=== PATIENT | female | born 1960 ===

== ENCOUNTER 2018-05-29 07:44 | Inpatient (IN) | payer OTHER ==
[2018-05-29 07:46] VITALS: BMI 25.7
--- NOTE | 2018-05-29 08:37 | ED PDOC ---
HPI: CCC, URI, Sore Throat Time Seen by Provider: 05/29/18 07:55 Chief Complaint (Nursing): Lower Extremity Problem/Injury Chief Complaint (Provider): dyspnea, cough History Per: Patient History/Exam Limitations: no limitations Onset/Duration Of Symptoms: Days (2-3 weeks) Current Symptoms Are (Timing): Still Present Associated Symptoms: Cough Additional Complaint(s): Marianne Reese is a 57 year old female, with no significant past medical h istory, who presents to the emergency department complaining of dyspnea and cough ongoing for x2-3 weeks. Patient also reports last week she had lower extremity swelling. She went to see her PMD who gave her a water pill and potassium which helped with the leg swelling but the cough and dyspnea are persistent. She also noted a rash to her breast for which her doctor gave her antibiotics and several prescriptions for work up including breast ultrasound, echocardiogram, blood work and DEXA scan which she has not completed yet. She is unfamiliar of which antibiotic was prescribed. She denies any other medical complaints. PMD: None provided. Past Medical History Reviewed: Historical Data, Nursing Documentation, Vital Signs Vital Signs: Last Vital Signs Temp 98.4 F 05/29/18 07:46 Pulse 116 H 05/29/18 07:46 Resp 17 05/29/18 07:46 BP 131/71 05/29/18 07:46 Pulse Ox 100 05/29/18 07:46 - Medical History PMH: No Chronic Diseases - Surgical History Surgical History: - Family History Family History: States: Unknown Family Hx - Social History Current smoker - smoking cessation education provided: No Alcohol: None Drugs: Denies - Allergies Allergies/Adverse Reactions: Allergies Allergy/AdvReac Type Severity Reaction Status Date / Time acetaminophen [From Tylenol] AdvReac Intermediate SHORTNESS Verified 05/29/18 09:00 OF BREATH Review of Systems ROS Statement: Except As Marked, All Systems Reviewed And Found Negative Respiratory: Positive for: Cough, Other (dyspnea) Skin: Positive for: Rash Physical Exam - Reviewed Nursing Documentation Reviewed: Yes Vital Signs Reviewed: Yes - Physical Exam Appears: Positive for: Well Head Exam: Positive for: ATRAUMATIC, NORMAL INSPECTION, NORMOCEPHALIC Skin: Positive for: Warm, Dry, Pallor Eye Exam: Positive for: EOMI, PERRL, Other (conjunctiva pale) ENT: Positive for: Normal ENT Inspection Neck: Positive for: Normal, Painless ROM Cardiovascular/Chest: Positive for: Regular Rate, Rhythm, Other (nondermatomal pustular rash to all quadrants of her breast). Negative for: Murmur Respiratory: Positive for: Normal Breath Sounds. Negative for: Respiratory Dist ress Gastrointestinal/Abdominal: Positive for: Normal Exam, Soft. Negative for: Tenderness Back: Positive for: Normal Inspection. Negative for: L CVA Tenderness, R CVA Tenderness, Vertebral Tenderness Extremity: Positive for: Normal ROM (upper and lower extremities), Swelling (lower extremity 1+ nonpitting edema). Negative for: Deformity Neurologic/Psych: Positive for: Alert, Oriented - Laboratory Results Result Diagrams: 05/29/18 08:30 05/29/18 08:30 - ECG O2 Sat by Pulse Oximetry: 100 (RA) Pulse Ox Interpretation: Normal Medical Decision Making Medical Decision Making: Time: 07:55 Initial Impression: work up for dyspnea. R/o anemia, CHF, PNA and malignancy. Initial Plan: --Type and screen --EKG --B-Type Natriuretic Peptide --CMP --CBC w/ differential --PTT --PT --Chest two views (PA/LAT) [RAD] --Urinalysis --Reevaluation EKG: Sinus tachy @ 110 bpm with Q waves septally labs reviewed revealing critically low Hgb at 4.9 BNP elevated also CXR reviewed Consent for PRBC transfusion obtained after risks/benefits/alternatives explained. Patient states she still has monthly menstrual cycles, last saw [employer] NURSE 2 years ago she states, unsure of name. Also states had mammogram about 2 yrs ago. Likely need malignancy workup. Dr Brown paged to make aware and to guide admitting MD choice. Admitted hospitalist Dr Yancey aware 940am 09:25 CXR FINDINGS: LUNGS: No active pulmonary disease. PLEURA: Trace fluid or thickening is seen in the minor fissure. Minimal right pleural effusion in question. None is seen at the left. No pneumothorax bilaterally.. No pneumothorax apparent. CARDIOVASCULAR: Calcific atherosclerotic changes are seen related to the thoracic aorta. Mild cardiomegaly. Borderline pulmonary vascular congestion. OSSEOUS STRUCTURES: No significant abnormalities. VISUALIZED UPPER ABDOMEN: Normal. OTHER FINDINGS: None. IMPRESSION: Mild cardiomegaly. Pulmonary vascular congestion in question. Trace right pleural effusion. No definitive alveolitis bilaterally. ----- Scribe Attestation: Documented by Celestine Adams, acting as a scribe for Jeremias Holbrook MD. Provider Scribe Attestation: All medical record entries made by the Scribe were at my direction and personally dictated by me. I have reviewed the chart and agree that the record accurately reflects my personal performance of the history, physical exam, medical decision making, and the department course for this patient. I have also personally directed, reviewed, and agree with the discharge instructions and disposition. Disposition - Clinical Impression Clinical Impression: Severe anemia, New onset of congestive heart failure - Patient ED Disposition Is Patient to be Admitted: Yes Counseled Patient/Family Regarding: Studies Performed, Diagnosis - Disposition Disposition: Routine/Home Disposition Time: 09:30 Condition: STABLE - Pt Status Changed To: Hospital Disposition Of: Inpatient - Admit Certification Admit to Inpatient:: After my assessment, the patient will require hospitalization for at least two midnights. This is because of the severity of symptoms shown, intensity of services needed, and/or the medical risk in this patient being treated as an outpatient. - POA Present On Arrival: None
[2018-05-29 08:50] LABS: BASO % 0.4 % (0.0-2.0); EOS # 0.1 K/uL (0.0-0.7); EOS % 0.7 % (0.0-4.0); LYMPH % 11.5 % (20.0-40.0); MEAN CELL VOLUME 70.3 fl (81.0-99.0); MEAN CORPUSCULAR HEMOGLOBIN 19.2 pg (27.0-31.0); MEAN CORPUSCULAR HGB CONC 27.4 g/dL (33.0-37.0); MEAN PLATELET VOLUME 8.2 fl (7.2-11.7); MONO # 0.8 K/uL (0.0-0.8); MONO % 9.2 % (0.0-10.0); NEUT # 6.7 K/uL (1.8-7.0); NEUT % 78.2 % (50.0-75.0); NRBC % 0.1 % (0.0-0.0); RBC 2.53 Mil/uL (3.80-5.20); RED CELL DISTRIBUTION WIDTH 23.4 % (11.5-14.5); WHITE BLOOD COUNT 8.5 K/uL (4.8-10.8)
[2018-05-29 09:03] LABS: HEMOGLOBIN 4.9 g/dL (12.0-16.0)
[2018-05-29 09:06] LABS: ALBUMIN 3.5 g/dL (3.5-5.0); ALT/SGPT 19 U/L (9-52); AST/SGOT 18 U/L (14-36); BLOOD UREA NITROGEN 12 mg/dl (7-17); CALCIUM 8.8 mg/dL (8.4-10.2); GFR NON-AFRICAN AMERICAN > 60
[2018-05-29 09:07] LABS: B-TYPE NATRIURETIC PEPTIDE 2860 pg/ml (0-900)
[2018-05-29 09:09] LABS: INR 1.3; PROTHROMBIN TIME 14.6 Seconds (9.8-13.1)
[2018-05-29 09:11] LABS: PARTIAL THROMBOPLASTIN TIME 26.4 Seconds (25.6-37.1)
[2018-05-29 09:25] LABS: SQUAMOUS EPITHIAL 3 /hpf (0-5); URINE BACTERIA RARE (<OCC); URINE BILIRUBIN NEGATIVE (NEGATIVE); URINE BLOOD LARGE (NEGATIVE); URINE CLARITY CLOUDY (Clear); URINE COLOR YELLOW (YELLOW); URINE GLUCOSE (UA) NEG (Normal); URINE LEUKOCYTE ESTERASE LARGE Leu/uL (Negative); URINE PROTEIN 100 mg/dL (NEGATIVE); URINE UROBILINOGEN 0.2-1.0 mg/dL (0.2-1.0)
--- NOTE | 2018-05-29 09:29 | RAD ---
Date of service: 05/29/2018 HISTORY: chest pain/ r/o infiltrate COMPARISON: No prior. TECHNIQUE: Chest PA and lateral FINDINGS: LUNGS: No active pulmonary disease. PLEURA: Trace fluid or thickening is seen in the minor fissure. Minimal right pleural effusion in question. None is seen at the left. No pneumothorax bilaterally.. No pneumothorax apparent. CARDIOVASCULAR: Calcific atherosclerotic changes are seen related to the thoracic aorta. Mild cardiomegaly. Borderline pulmonary vascular congestion. OSSEOUS STRUCTURES: No significant abnormalities. VISUALIZED UPPER ABDOMEN: Normal. OTHER FINDINGS: None. IMPRESSION: Mild cardiomegaly. Pulmonary vascular congestion in question. Trace right pleural effusion. No definitive alveolitis bilaterally.
[2018-05-29 10:44] LABS: IRON < 10 ug/dL (37-170)
[2018-05-29 10:49] LABS: TOTAL IRON BINDING CAPACITY 407 ug/dL (250-450)
[2018-05-29 10:53] LABS: % IRON SATURATION 2.457 % (20-55)
--- NOTE | 2018-05-29 13:10 | CP.PCM.HP ---
<Bella Phillips - Last Filed: 05/29/18 15:41> History of Present Illness - History of Present Illness History of Present Illness: 57 yo F with no known medical hx presented to ED after 2 weeks of dry cough, bilateral leg swelling, and right breast rash. Reports that she went to see her PMD gave her antibiotics and several prescriptions for work up including breast ultrasound, echocardiogram, blood work and DEXA scan which she has not completed yet. She denies any other medical complaints. States that leg swelling occurs more often when she stands for long periods of time; denies needing more than 1 pillow to sleep or difficulties with walking long distances. Breast rash is not painful on it's own but painful if something like clothing is touching it. Pt states she had mammogram and PAP 2 yrs ago and was told all was within normal limits. She states she saw a PROVISIONING SPECIALIST 2 yrs ago who told her to take iron pills but upon asking for the name, states she prefers not to disclose for personal reasons. ROS positive for: weight loss in the past 2 months, early satiety, bilateral leg swelling, skin changes on R breast, heavy menstrual cycle despite patient stating she is "going through menopause" Negative for: dizziness, chest pain, difficulty walking long distances, orthopnea, night time awakenings to urinate or while short of breath, chills, fevers Past Med hx: denies chronic issues Past Surg hx: 37 yrs ago OBhx: pt states she is "going through menopause" but still has her period every month, LMP 05/25/18, currently menstruating, 1 prior Soc hx: denies tobacco, alcohol, drug use Fam hx: denies malignancy, diabetes, htn, [place], stroke Allergies: tylenol Meds: oral iron In ED: Vitals: tachycardic at 116, afebrile, normotensive Labs: Hgb 4.9, ProBNP 2860, iron studies low iron, ferritin and % iron saturation Present on Admission - Present on Admission Any Indicators Present on Admission: No Review of Systems - Review of Systems All systems: reviewed and no additional remarkable complaints except Review of Systems: as per HPI Past Patient History - Past Social History Alcohol: None Drugs: Denies - CARDIAC Hx Heart Murmur: Yes (childhood) - HEMATOLOGICAL/ONCOLOGICAL Hx Anemia: Yes - PSYCHIATRIC Hx Substance Use: No - SURGICAL HISTORY Hx Section: Yes (x1) - ANESTHESIA Hx Anesthesia: Yes Hx Anesthesia Reactions: No Meds Allergies/Adverse Reactions: Allergies Allergy/AdvReac Type Severity Reaction Status Date / Time acetaminophen [From Tylenol] AdvReac Intermediate SHORTNESS Verified 05/29/18 09:00 OF BREATH Physical Exam - Constitutional Appears: Non-toxic, No Acute Distress - Head Exam Head Exam: NORMAL INSPECTION - Eye Exam Eye Exam: EOMI Additional comments: conjunctival pallor - ENT Exam ENT Exam: Mucous Membranes Moist - Neck Exam Neck exam: Positive for: Full Rom - Respiratory Exam Respiratory Exam: Clear to Auscultation Bilateral, NORMAL BREATHING PATTERN. absent: Respiratory Distress - Cardiovascular Exam Cardiovascular Exam: REGULAR RHYTHM, +S1, +S2 Additional comments: R breast more swollen/larger than L breast R on right breast: multiple erythematous pustules of different sizes - GI/Abdominal Exam GI & Abdominal Exam: Normal Bowel Sounds, Soft. absent: Tenderness - Extremities Exam Extremities exam: Positive for: calf tenderness (R>L), pedal edema (1+ pitting to knees) - Back Exam Back exam: NORMAL INSPECTION - Neurological Exam Neurological exam: Alert, Normal Gait, Oriented x3 - Skin Skin Exam: Rash, Vesicles, Warm Additional comments: multiple round pustules of differing sizes on R breast Results - Vital Signs Recent Vital Signs: Last Vital Signs Temp 99.2 F 05/29/18 13:00 Pulse 116 H 05/29/18 13:00 Resp 18 05/29/18 13:00 BP 130/78 05/29/18 13:00 Pulse Ox 100 05/29/18 10:24 - Labs Result Diagrams: 05/29/18 08:30 05/29/18 08:30 Labs: Laboratory Results - last 24 hr 05/29/18 05/29/18 05/29/18 08:30 08:30 08:30 WBC 8.5 RBC 2.53 L Hgb 4.9 L* Hct 17.8 L MCV 70.3 L MCH 19.2 L MCHC 27.4 L RDW 23.4 H Plt Count 373 MPV 8.2 Neut % (Auto) 78.2 H Lymph % (Auto) 11.5 L [place] % (Auto) 9.2 Eos % (Auto) 0.7 Baso % (Auto) 0.4 Neut # (Auto) 6.7 Lymph # (Auto) 1.0 [place] # (Auto) 0.8 Eos # (Auto) 0.1 Baso # (Auto) 0.0 PT 14.6 H INR 1.3 APTT 26.4 Sodium 143 Potassium 4.2 Chloride 109 H Carbon Dioxide 23 Anion Gap 15 BUN 12 Creatinine 0.6 L Est GFR ( Amer) > 60 Est GFR (Non-Af Amer) > 60 Random Glucose 111 H Calcium 8.8 Iron TIBC % Saturation Ferritin Total Bilirubin 0.3 AST 18 ALT 19 Alkaline Phosphatase 95 NT-Pro-B Natriuret Pep 2860 H Total Protein 6.8 Albumin 3.5 Globulin 3.3 Albumin/Globulin Ratio 1.0 Urine Color Urine Clarity Urine pH Ur Specific [place] Urine Protein Urine Glucose (UA) Urine Ketones Urine Blood Urine Nitrate Urine Bilirubin Urine Urobilinogen Ur Leukocyte Esterase Urine RBC (Auto) Urine Microscopic WBC Ur Squamous Epith Cells Urine Bacteria Blood Type Blood Type Confirm Antibody Screen Crossmatch BBK History Checked 05/29/18 05/29/18 05/29/18 08:30 09:10 09:15 WBC RBC Hgb Hct MCV MCH MCHC RDW Plt Count MPV Neut % (Auto) Lymph % (Auto) [place] % (Auto) Eos % (Auto) Baso % (Auto) Neut # (Auto) Lymph # (Auto) [place] # (Auto) Eos # (Auto) Baso # (Auto) PT INR APTT Sodium Potassium Chloride Carbon Dioxide Anion Gap BUN Creatinine Est GFR ( Amer) Est GFR (Non-Af Amer) Random Glucose Calcium Iron TIBC % Saturation Ferritin Total Bilirubin AST ALT Alkaline Phosphatase NT-Pro-B Natriuret Pep Total Protein Albumin Globulin Albumin/Globulin Ratio Urine Color Yellow Urine Clarity Cloudy Urine pH 5.0 Ur Specific [place] 1.017 Urine Protein 100 Urine Glucose (UA) Neg Urine Ketones Negative Urine Blood Large Urine Nitrate Negative Urine Bilirubin Negative Urine Urobilinogen 0.2-1.0 Ur Leukocyte Esterase Large Urine RBC (Auto) 179 H Urine Microscopic WBC 213 H Ur Squamous Epith Cells 3 Urine Bacteria Rare Blood Type A POSITIVE Blood Type Confirm A POSITIVE Antibody Screen Negative Crossmatch See Detail BBK History Checked No verified bt 05/29/18 05/29/18 10:10 10:10 WBC RBC Hgb Hct MCV MCH MCHC RDW Plt Count MPV Neut % (Auto) Lymph % (Auto) [place] % (Auto) Eos % (Auto) Baso % (Auto) Neut # (Auto) Lymph # (Auto) [place] # (Auto) Eos # (Auto) Baso # (Auto) PT INR APTT Sodium Potassium Chloride Carbon Dioxide Anion Gap BUN Creatinine Est GFR ( Amer) Est GFR (Non-Af Amer) Random Glucose Calcium Iron < 10 L TIBC 407 % Saturation 2.457 L Ferritin 5.5 L Total Bilirubin AST ALT Alkaline Phosphatase NT-Pro-B Natriuret Pep Total Protein Albumin Globulin Albumin/Globulin Ratio Urine Color Urine Clarity Urine pH Ur Specific [place] Urine Protein Urine Glucose (UA) Urine Ketones Urine Blood Urine Nitrate Urine Bilirubin Urine Urobilinogen Ur Leukocyte Esterase Urine RBC (Auto) Urine Microscopic WBC Ur Squamous Epith Cells Urine Bacteria Blood Type Blood Type Confirm Antibody Screen Crossmatch BBK History Checked Assessment & Plan - Assessment and Plan (Free Text) Assessment: 57 yo F with hx anemia?, presented to ED with leg swelling, cough, and breast rash x 2 weeks. Found to be severely anemic at 4.9, although asymptomatic; still menstruating. Findings suspicious for new onset CHF, as well as possible malignant process. 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 Plan: Anemia -Hgb 4.9 on admission; 3U PRBC ordered in ED -Follow up CBC in am -PROVISIONING SPECIALIST consult as pt is 57 yo F who is still menstruating w/ heavy flow, suspicion for malignancy -Transvaginal u/s ordered Breast Rash -Right breast u/s ordered -PROVISIONING SPECIALIST consult Lower Extremity Edema -Elevated BNP 2860; suspected new onset CHF -CXR w/ pulmonary congestion, mild cardiomegaly -Bilateral lower ext doppler -Echocardiogram ordered -Lipid panel, TSH, HbA1c Diet -Regular diet DVT prophylaxis -SCDs after doppler r/o DVT Pt seen/discussed w/ Dr. Yancey. <Tee Yancey - Last Filed: 05/29/18 16:43> Results - Vital Signs Recent Vital Signs: Last Vital Signs Temp 98.6 F 05/29/18 15:43 Pulse 115 H 05/29/18 15:43 Resp 19 05/29/18 15:43 BP 133/69 11/05/18 15:43 Pulse Ox 96 05/29/18 15:21 - Labs Result Diagrams: 05/29/18 08:30 05/29/18 08:30 Labs: Laboratory Results - last 24 hr 05/29/18 05/29/18 05/29/18 08:30 08:30 08:30 WBC 8.5 RBC 2.53 L Hgb 4.9 L* Hct 17.8 L MCV 70.3 L MCH 19.2 L MCHC 27.4 L RDW 23.4 H Plt Count 373 MPV 8.2 Neut % (Auto) 78.2 H Lymph % (Auto) 11.5 L [place] % (Auto) 9.2 Eos % (Auto) 0.7 Baso % (Auto) 0.4 Neut # (Auto) 6.7 Lymph # (Auto) 1.0 [place] # (Auto) 0.8 Eos # (Auto) 0.1 Baso # (Auto) 0.0 PT 14.6 H INR 1.3 APTT 26.4 Sodium 143 Potassium 4.2 Chloride 109 H Carbon Dioxide 23 Anion Gap 15 BUN 12 Creatinine 0.6 L Est GFR ( Amer) > 60 Est GFR (Non-Af Amer) > 60 Random Glucose 111 H Calcium 8.8 Iron TIBC % Saturation Ferritin Total Bilirubin 0.3 AST 18 ALT 19 Alkaline Phosphatase 95 NT-Pro-B Natriuret Pep 2860 H Total Protein 6.8 Albumin 3.5 Globulin 3.3 Albumin/Globulin Ratio 1.0 Urine Color Urine Clarity Urine pH Ur Specific [place] Urine Protein Urine Glucose (UA) Urine Ketones Urine Blood Urine Nitrate Urine Bilirubin Urine Urobilinogen Ur Leukocyte Esterase Urine RBC (Auto) Urine Microscopic WBC Ur Squamous Epith Cells Urine Bacteria Blood Type Blood Type Confirm Antibody Screen Crossmatch BBK History Checked 05/29/18 05/29/18 05/29/18 08:30 09:10 09:15 WBC RBC Hgb Hct MCV MCH MCHC RDW Plt Count MPV Neut % (Auto) Lymph % (Auto) [place] % (Auto) Eos % (Auto) Baso % (Auto) Neut # (Auto) Lymph # (Auto) [place] # (Auto) Eos # (Auto) Baso # (Auto) PT INR APTT Sodium Potassium Chloride Carbon Dioxide Anion Gap BUN Creatinine Est GFR ( Amer) Est GFR (Non-Af Amer) Random Glucose Calcium Iron TIBC % Saturation Ferritin Total Bilirubin AST ALT Alkaline Phosphatase NT-Pro-B Natriuret Pep Total Protein Albumin Globulin Albumin/Globulin Ratio Urine Color Yellow Urine Clarity Cloudy Urine pH 5.0 Ur Specific [place] 1.017 Urine Protein 100 Urine Glucose (UA) Neg Urine Ketones Negative Urine Blood Large Urine Nitrate Negative Urine Bilirubin Negative Urine Urobilinogen 0.2-1.0 Ur Leukocyte Esterase Large Urine RBC (Auto) 179 H Urine Microscopic WBC 213 H Ur Squamous Epith Cells 3 Urine Bacteria Rare Blood Type A POSITIVE Blood Type Confirm A POSITIVE Antibody Screen Negative Crossmatch See Detail BBK History Checked No verified bt 05/29/18 05/29/18 10:10 10:10 WBC RBC Hgb Hct MCV MCH MCHC RDW Plt Count MPV Neut % (Auto) Lymph % (Auto) [place] % (Auto) Eos % (Auto) Baso % (Auto) Neut # (Auto) Lymph # (Auto) [place] # (Auto) Eos # (Auto) Baso # (Auto) PT INR APTT Sodium Potassium Chloride Carbon Dioxide Anion Gap BUN Creatinine Est GFR ( Amer) Est GFR (Non-Af Amer) Random Glucose Calcium Iron < 10 L TIBC 407 % Saturation 2.457 L Ferritin 5.5 L Total Bilirubin AST ALT Alkaline Phosphatase NT-Pro-B Natriuret Pep Total Protein Albumin Globulin Albumin/Globulin Ratio Urine Color Urine Clarity Urine pH Ur Specific [place] Urine Protein Urine Glucose (UA) Urine Ketones Urine Blood Urine Nitrate Urine Bilirubin Urine Urobilinogen Ur Leukocyte Esterase Urine RBC (Auto) Urine Microscopic WBC Ur Squamous Epith Cells Urine Bacteria Blood Type Blood Type Confirm Antibody Screen Crossmatch BBK History Checked Attending/Attestation - Attestation I have personally seen and examined this patient.: Yes I have fully participated in the care of the patient.: Yes I have reviewed all pertinent clinical information: Yes Notes (Text): Patient seen and examined with the resident, agree with above anemia, significant unintentional weight loss in the past 2 months concern for malignancy - will get imaging and PROVISIONING SPECIALIST consultation for their expert opinion monitor H&H after transfusion
--- NOTE | 2018-05-29 18:17 | CARD ---
APPROVED REPORT Date of service: 05/29/2018 EKG Measurement Heart [id number] <Conclusion> Sinus tachycardia Septal infarct, age undetermined Abnormal ECG
[2018-05-30 07:17] LABS: BASO % 0.3 % (0.0-2.0); EOS # 0.1 K/uL (0.0-0.7); EOS % 0.9 % (0.0-4.0); HEMOGLOBIN 8.5 g/dL (12.0-16.0); LYMPH # 1.1 K/uL (1.0-4.3); LYMPH % 9.8 % (20.0-40.0); MEAN CELL VOLUME 74.7 fl (81.0-99.0); MEAN CORPUSCULAR HGB CONC 30.8 g/dL (33.0-37.0); MEAN PLATELET VOLUME 8.3 fl (7.2-11.7); MONO % 9.3 % (0.0-10.0); NEUT # 8.7 K/uL (1.8-7.0); NEUT % 79.7 % (50.0-75.0); NRBC % 0.1 % (0.0-0.0); PLATELET COUNT 384 K/uL (130-400); RBC 3.69 Mil/uL (3.80-5.20); RED CELL DISTRIBUTION WIDTH 23.3 % (11.5-14.5)
[2018-05-30 07:28] LABS: ALBUMIN 3.6 g/dL (3.5-5.0); ALT/SGPT 12 U/L (9-52); AST/SGOT 18 U/L (14-36); BLOOD UREA NITROGEN 12 mg/dl (7-17); CALCIUM 8.7 mg/dL (8.4-10.2); GFR NON-AFRICAN AMERICAN > 60; HDL CHOLESTEROL 35 MG/DL (30-70)
[2018-05-30 07:37] LABS: LDL CHOLESTEROL 64 mg/dL (0-129)
--- NOTE | 2018-05-30 08:25 | CP.PCM.CON ---
<Jennifer Agarwal - Last Filed: 05/30/18 09:15> History of Present Illness - History of Present Illness History of Present Illness: Pt is a 57 yo F admitted for severe anemia hg 4.9 s/p transfused 3 units of PRBCs, R breast rash, and new onset CHF. Pt states that she started having SOB and swelling with cough two weeks ago so she came to the ED. She's been menstruating for 2 weeks and has her period now as well. She has a right breast rash that started 3 weeks ago, with swelling, erythema, nodules, she feels pain when it touches clothes, her primary prescribed her antibiotics but it didn't resolve. No hx of Zoster vaccine. OB Hx: 1981- C section Borderer hx: 2009- Fibroids- no surgical intervention, Last mammogram-2015- reports normal, 2013 reports normal. LMP-has period now began 2 weeks ago, Used to last 4 days now 1-2weeks, light bleeding, Age of Menarche 8. 2015-Pap smear normal, denies HPV. PMD:Dr. Juventino hercules PMHX: Anemia- Hx of transfusion 20 yrs ago, heart murmur as child Meds- Fe tablets (not taking for 1 month), Antibiotic 2x a day for rash Allergies: Tylenol-palpitations Family hx: None, No hx of breast cancer Surg Hx: None Social Hx: 2nd hand smoke exposure, denies EtOH, or drugs. 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 Alcohol: None Drugs: Denies - CARDIAC Hx Cardiac Disorders: Yes Hx Heart Murmur: Yes (childhood) - PULMONARY Hx Respiratory Disorders: No - NEUROLOGICAL Hx Neurological Disorder: No - HEENT Hx HEENT Problems: No - RENAL Hx Chronic Kidney Disease: No - ENDOCRINE/METABOLIC Hx Endocrine Disorders: No - HEMATOLOGICAL/ONCOLOGICAL Hx Blood Disorders: Yes Hx Anemia: Yes - INTEGUMENTARY Hx Dermatological Problems: No - MUSCULOSKELETAL/RHEUMATOLOGICAL Hx Musculoskeletal Disorders: No Hx Arthritis: No Hx Falls: No - GASTROINTESTINAL Hx Gastrointestinal Disorders: No - GENITOURINARY/GYNECOLOGICAL Hx Genitourinary Disorders: No - PSYCHIATRIC Hx Psychophysiologic Disorder: No Hx Substance Use: Yes - SURGICAL HISTORY Hx Surgeries: Yes Hx Section: Yes (x1) - ANESTHESIA Hx Anesthesia: Yes Hx Anesthesia Reactions: No Meds Allergies/Adverse Reactions: Allergies Allergy/AdvReac Type Severity Reaction Status Date / Time acetaminophen [From Tylenol] AdvReac Intermediate SHORTNESS Verified 05/29/18 09:00 OF BREATH Physical Exam - Constitutional Appears: Toxic, No Acute Distress - Head Exam Head Exam: ATRAUMATIC, NORMAL INSPECTION, NORMOCEPHALIC - Eye Exam Eye Exam: Normal appearance - ENT Exam ENT Exam: Mucous Membranes Moist - Respiratory Exam Respiratory Exam: Rales (Mid to lower lung tolbert) - Cardiovascular Exam Cardiovascular Exam: RRR, +S1, +S2 Additional comments: R breast has multiple erythematous nodules and pustules of varying sizes, swollen R breast, no lymphadenopathy noted - GI/Abdominal Exam GI & Abdominal Exam: Normal Bowel Sounds, Soft - Extremities Exam Extremities exam: Positive for: normal inspection - Neurological Exam Neurological exam: Alert, Oriented x3 - Skin Skin Exam: Erythema, Rash Results - Vital Signs Recent Vital Signs: Last Vital Signs Temp 98.3 F 05/30/18 05:20 Pulse 96 H 05/30/18 05:20 Resp 16 05/30/18 05:20 BP 126/68 05/30/18 05:20 Pulse Ox 96 05/30/18 05:04 - Labs Result Diagrams: 05/30/18 06:00 05/30/18 06:00 Labs: Laboratory Results - last 24 hr 05/29/18 05/29/18 05/29/18 08:30 08:30 08:30 WBC 8.5 RBC 2.53 L Hgb 4.9 L* Hct 17.8 L MCV 70.3 L MCH 19.2 L MCHC 27.4 L RDW 23.4 H Plt Count 373 MPV 8.2 Neut % (Auto) 78.2 H Lymph % (Auto) 11.5 L [place] % (Auto) 9.2 Eos % (Auto) 0.7 Baso % (Auto) 0.4 Neut # (Auto) 6.7 Lymph # (Auto) 1.0 [place] # (Auto) 0.8 Eos # (Auto) 0.1 Baso # (Auto) 0.0 Retic Count PT 14.6 H INR 1.3 APTT 26.4 Sodium 143 Potassium 4.2 Chloride 109 H Carbon Dioxide 23 Anion Gap 15 BUN 12 Creatinine 0.6 L Est GFR ( Amer) > 60 Est GFR (Non-Af Amer) > 60 Random Glucose 111 H Calcium 8.8 Iron TIBC % Saturation Ferritin Total Bilirubin 0.3 AST 18 ALT 19 Alkaline Phosphatase 95 NT-Pro-B Natriuret Pep 2860 H Total Protein 6.8 Albumin 3.5 Globulin 3.3 Albumin/Globulin Ratio 1.0 Triglycerides Cholesterol LDL Cholesterol Direct HDL Cholesterol Free T4 TSH 3rd Generation Urine Color Urine Clarity Urine pH Ur Specific [place] Urine Protein Urine Glucose (UA) Urine Ketones Urine Blood Urine Nitrate Urine Bilirubin Urine Urobilinogen Ur Leukocyte Esterase Urine RBC (Auto) Urine Microscopic WBC Ur Squamous Epith Cells Urine Bacteria Blood Type Blood Type Confirm Antibody Screen Crossmatch BBK History Checked 05/29/18 05/29/18 05/29/18 08:30 09:10 09:15 WBC RBC Hgb Hct MCV MCH MCHC RDW Plt Count MPV Neut % (Auto) Lymph % (Auto) [place] % (Auto) Eos % (Auto) Baso % (Auto) Neut # (Auto) Lymph # (Auto) [place] # (Auto) Eos # (Auto) Baso # (Auto) Retic Count PT INR APTT Sodium Potassium Chloride Carbon Dioxide Anion Gap BUN Creatinine Est GFR ( Amer) Est GFR (Non-Af Amer) Random Glucose Calcium Iron TIBC % Saturation Ferritin Total Bilirubin AST ALT Alkaline Phosphatase NT-Pro-B Natriuret Pep Total Protein Albumin Globulin Albumin/Globulin Ratio Triglycerides Cholesterol LDL Cholesterol Direct HDL Cholesterol Free T4 TSH 3rd Generation Urine Color Yellow Urine Clarity Cloudy Urine pH 5.0 Ur Specific [place] 1.017 Urine Protein 100 Urine Glucose (UA) Neg Urine Ketones Negative Urine Blood Large Urine Nitrate Negative Urine Bilirubin Negative Urine Urobilinogen 0.2-1.0 Ur Leukocyte Esterase Large Urine RBC (Auto) 179 H Urine Microscopic WBC 213 H Ur Squamous Epith Cells 3 Urine Bacteria Rare Blood Type A POSITIVE Blood Type Confirm A POSITIVE Antibody Screen Negative Crossmatch See Detail BBK History Checked No verified bt 05/29/18 05/29/18 05/30/18 10:10 10:10 06:00 WBC 11.0 H RBC 3.69 L Hgb 8.5 L D Hct 27.6 L MCV 74.7 L D MCH 23.0 L MCHC 30.8 L RDW 23.3 H Plt Count 384 MPV 8.3 Neut % (Auto) 79.7 H Lymph % (Auto) 9.8 L [place] % (Auto) 9.3 Eos % (Auto) 0.9 Baso % (Auto) 0.3 Neut # (Auto) 8.7 H Lymph # (Auto) 1.1 [place] # (Auto) 1.0 H Eos # (Auto) 0.1 Baso # (Auto) 0.0 Retic Count PT INR APTT Sodium Potassium Chloride Carbon Dioxide Anion Gap BUN Creatinine Est GFR ( Amer) Est GFR (Non-Af Amer) Random Glucose Calcium Iron < 10 L TIBC 407 % Saturation 2.457 L Ferritin 5.5 L Total Bilirubin AST ALT Alkaline Phosphatase NT-Pro-B Natriuret Pep Total Protein Albumin Globulin Albumin/Globulin Ratio Triglycerides Cholesterol LDL Cholesterol Direct HDL Cholesterol Free T4 TSH 3rd Generation Urine Color Urine Clarity Urine pH Ur Specific [place] Urine Protein Urine Glucose (UA) Urine Ketones Urine Blood Urine Nitrate Urine Bilirubin Urine Urobilinogen Ur Leukocyte Esterase Urine RBC (Auto) Urine Microscopic WBC Ur Squamous Epith Cells Urine Bacteria Blood Type Blood Type Confirm Antibody Screen Crossmatch BBK History Checked 05/30/18 05/30/18 05/30/18 06:00 06:00 06:00 WBC RBC Hgb Hct MCV MCH MCHC RDW Plt Count MPV Neut % (Auto) Lymph % (Auto) [place] % (Auto) Eos % (Auto) Baso % (Auto) Neut # (Auto) Lymph # (Auto) [place] # (Auto) Eos # (Auto) Baso # (Auto) Retic Count 2.2 H PT INR APTT Sodium 140 Potassium 4.0 Chloride 109 H Carbon Dioxide 23 Anion Gap 12 BUN 12 Creatinine 0.5 L Est GFR ( Amer) > 60 Est GFR (Non-Af Amer) > 60 Random Glucose 98 Calcium 8.7 Iron TIBC % Saturation Ferritin Total Bilirubin 1.9 H AST 18 ALT 12 Alkaline Phosphatase 101 NT-Pro-B Natriuret Pep Total Protein 7.2 Albumin 3.6 Globulin 3.6 Albumin/Globulin Ratio 1.0 Triglycerides 111 Cholesterol 105 LDL Cholesterol Direct 64 HDL Cholesterol 35 Free T4 1.16 TSH 3rd Generation 2.59 Urine Color Urine Clarity Urine pH Ur Specific [place] Urine Protein Urine Glucose (UA) Urine Ketones Urine Blood Urine Nitrate Urine Bilirubin Urine Urobilinogen Ur Leukocyte Esterase Urine RBC (Auto) Urine Microscopic WBC Ur Squamous Epith Cells Urine Bacteria Blood Type Blood Type Confirm Antibody Screen Crossmatch BBK History Checked Assessment & Plan - Assessment and Plan (Free Text) Assessment: Pt is a 57 yo F admitted for severe anemia hg 4.9 s/p transfused 3 units of PRBCs, R breast rash 3wks, and new onset CHF.She's been menstruating for 2 wks. Anemic hg 4.9 -Transfused 3U PRBC- completed, HG now 8.5 -F/u repeat CBC in am -F/u transvagianl U/S -Abnormal uterine bleeding- Recommend outpt endometrial biopsy testing with [facility]- Dr. Gilbert Breast Rash -r/o infectious vs malignancy -Infectious disease consult placed -F/u Breast U/S, CA 125 in AM Lower Extremity Edema -BNP 2860; suspected new onset CHF -CXR w/ pulmonary congestion, mild cardiomegaly -F/u LE doppler, echo, lipid panel, TSH, HbA1c DVT ppx: SCD's <Mariaa Sainz - Last Filed: 05/31/18 13:24> Meds - Medications Medications: Current Medications Vancomycin HCl 1 gm/ Sodium (Chloride) 250 mls @ 166.667 mls/hr IVPB Q12 GLADIS; Protocol Last Admin: 05/31/18 09:06 Dose: 166.667 mls/hr Results - Vital Signs Recent Vital Signs: Last Vital Signs Temp 98.4 F 05/31/18 05:17 Pulse 90 05/31/18 05:17 Resp 18 05/31/18 05:17 BP 107/64 05/31/18 05:17 Pulse Ox 95 05/31/18 05:17 - Labs Result Diagrams: 05/31/18 04:40 05/30/18 06:00 Labs: Laboratory Results - last 24 hr 05/30/18 05/30/18 05/31/18 06:00 06:00 04:40 WBC 10.0 RBC 3.61 L Hgb 8.5 L Hct 27.5 L MCV 76.3 L MCH 23.6 L MCHC 30.9 L RDW 24.3 H Plt Count 317 MPV 8.6 Neut % (Auto) 76.9 H Lymph % (Auto) 13.1 L [place] % (Auto) 8.2 Eos % (Auto) 1.2 Baso % (Auto) 0.6 Neut # (Auto) 7.7 H Lymph # (Auto) 1.3 [place] # (Auto) 0.8 Eos # (Auto) 0.1 Baso # (Auto) 0.1 Hemoglobin A1c 5.1 CA 125 Antigen 378 H Assessment & Plan - Assessment and Plan (Free Text) Assessment: OB Hospitalist Addendum: 57 yo w/ abnormal uterine bleeding for the last 2 weeks and right breast swelling and rash, suspected new onset of CHF, s/p 3 units PRBCs. Rec right breast u/s. Recommended ID consult for right breast rash and swelling. Pt may also need surgeon for possible breast biopsy. Pelvic u/s reveals a large fundal fibroid and a 11.1 x 11.6 x 8.7 cm complex mass in the left adnexa, concerning for ovarian neoplasia. Recommend possible transfer for evaluation and management by a gynecologic oncologist. (ES)
[2018-05-30 08:48] LABS: ANISOCYTOSIS MODERATE; HYPOCHROMIC MODERATE; LYMPHOCYTE 8 % (20-50); MICROCYTOSIS SLIGHT; MONOCYTE 4 % (0-10); NEUTROPHIL 88 % (42-75); PLATELET ESTIMATE NORMAL (NORMAL); TOTAL CELLS COUNTED 100
[2018-05-30 08:50] LABS: OVALOCYTES SLIGHT; SCHISTOCYTES SLIGHT
--- NOTE | 2018-05-30 09:09 | CP.PCM.PN ---
<Bella Phillips - Last Filed: 05/30/18 11:18> Subjective - Date & Time of Evaluation Date of Evaluation: 05/30/18 Time of Evaluation: 08:40 - Subjective Subjective: Pt seen and evaluated at bedside this morning; she was sitting up eating breakfast. No acute events overnight. Was transfused 3U PRBC yesterday; Hgb up to 8.5 from 4.9. Continues to deny dizziness, shortness of breath, chest pain. Objective - Vital Signs/Intake and Output Vital Signs (last 24 hours): Temp Pulse Resp BP Pulse Ox 98.0 F 90 20 123/67 99 05/30/18 08:31 05/30/18 08:31 05/30/18 08:31 05/30/18 08:31 05/30/18 08:31 Intake and Output: 05/30/18 05/30/18 06:59 18:59 Intake Total 375 Balance 375 - Labs Labs: 05/30/18 06:00 05/30/18 06:00 PT 14.6 Seconds (9.8-13.1) H 05/29/18 08:30 INR 1.3 05/29/18 08:30 APTT 26.4 Seconds (25.6-37.1) 05/29/18 08:30 - Constitutional Appears: No Acute Distress - Head Exam Head Exam: ATRAUMATIC, NORMOCEPHALIC - ENT Exam ENT Exam: Mucous Membranes Moist - Respiratory Exam Respiratory Exam: Clear to Ausculation Bilateral, NORMAL BREATHING PATTERN. absent: Respiratory Distress - Cardiovascular Exam Cardiovascular Exam: REGULAR RHYTHM, +S1, +S2 - GI/Abdominal Exam GI & Abdominal Exam: Soft. absent: Tenderness - Extremities Exam Extremities Exam: absent: Calf Tenderness Additional comments: trace pitting edema b/l - Back Exam Back Exam: NORMAL INSPECTION - Neurological Exam Neurological Exam: Alert, Oriented x3 - Psychiatric Exam Psychiatric exam: Normal Affect - Skin Skin Exam: Dry Additional comments: breast rash- multiple separate pustules on R breast Assessment and Plan - Assessment and Plan (Free Text) Assessment: 57 yo F with hx anemia?, admitted due to critically low hemoglobin at 4.9, s/p 3U PRBC with appopriate improvement to 8.5 Pt initially presented to ED with leg swelling, cough, and breast rash x 2 weeks; initial findings suspicious for new onset CHF and/or malignancy. Pending completion of imaging to assess for CHF, transvaginal u/s, breast u/s (along with ENTERTAINMENT PRODUCTION PROFESSIONAL consult). Plan: Anemia -Hgb 4.9 on admission; 3U PRBC ordered in ED -Repeat CBC this am, Hgb 8.5 -ENTERTAINMENT PRODUCTION PROFESSIONAL consult as pt is 57 yo F who is still menstruating w/ heavy flow, suspicion for malignancy -Transvaginal u/s ordered -CA 125 pending Breast Rash -Right breast u/s ordered -ENTERTAINMENT PRODUCTION PROFESSIONAL consult - recs outpt endometrial biopsy and ID -ID consult -Surg consult Lower Extremity Edema -Elevated BNP 2860; suspected new onset CHF -CXR w/ pulmonary congestion, mild cardiomegaly -Bilateral lower ext doppler -Echocardiogram this am -Lipid panel, TSH wnl; HbA1c pending Diet -Regular diet DVT prophylaxis -SCDs after doppler r/o DVT <Briana Ruiz - Last Filed: 05/30/18 16:07> Objective - Vital Signs/Intake and Output Vital Signs (last 24 hours): Temp Pulse Resp BP Pulse Ox 99 F 105 H 20 133/75 99 05/30/18 16:04 05/30/18 16:04 05/30/18 16:04 05/30/18 16:04 05/30/18 16:04 Intake and Output: 05/30/18 05/30/18 06:59 18:59 Intake Total 375 Balance 375 - Labs Labs: 05/30/18 06:00 05/30/18 06:00 PT 14.6 Seconds (9.8-13.1) H 05/29/18 08:30 INR 1.3 05/29/18 08:30 APTT 26.4 Seconds (25.6-37.1) 05/29/18 08:30 Attending/Attestation - Attestation I have personally seen and examined this patient.: Yes I have fully participated in the care of the patient.: Yes I have reviewed all pertinent clinical information, including history, physical exam and plan: Yes Notes (Text): 05/30/18 16:07 Seen examined and discussed with resident. Agree with findings and plan as above.
--- NOTE | 2018-05-30 10:41 | CP.PCM.CON ---
History of Present Illness - History of Present Illness History of Present Illness: Infectious Disease Consultation Note- asked to see this patietn at the request of Handbag Frames Inspector and family practice for right breast lesions r/o infectious etiology. HPI- Patient is a 57 year old female with pmh of uterine fibroids who was admitted with c/o b/l le swelling and right breast swelling and rash. as per pt. she still gets her menses every month but on admission was found to be severely anemic and is s/p PRBC transfusion. Pt. denies any dizziness or weakness. She explains 3 weeks ago she noticed a small pimple like lesion on her right breast and she did not think much of it and she did scratch it and later develop ed multiple round pimple like lesions on her right breast along with swelling of her right breast. She states she did see her PMD for this and her pmd prescribed her doxycycline which she took for 2 weeks but has not helped her symptoms. She also states around the same time she developed swelling in both her feet and some sob and cough but states since admission her LE swelling has resolved and her breathing is better. Her cough is dry and she denies any phlegm. She also denies any fever or chills and denies any itching in the right breast rash region and denies tenderness. She denies ay liquid discharge from the breast lesions as well. 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 LMP-has period now began 2 weeks ago, Used to last 4 days now 1-2weeks, light bleeding, Age of Menarche 8. 2015-Pap smear normal, denies HPV. PMD:Dr. Juventino hercules PMHX: Anemia- Hx of transfusion 20 yrs ago, heart murmur as child Meds- Fe tablets (not taking for 1 month), Antibiotic 2x a day for rash Allergies: Tylenol-palpitations Family hx: None, No hx of breast cancer Surg Hx: None Social Hx: 2nd hand smoke exposure, denies EtOH, or drugs. Review of Systems - Review of Systems Review of Systems: ROS- denies any fever or chills, denies any BROWN, denies any dizziness, denies any nausea or vomiting, denies any abd. pain, denies any dysurea, + menses, + dry cough and had some sob and le swelling which are both betetr now. right breast pimple like rash for about 3 weeks , no itching, no liquid discharge. no h/o shingles. 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 Alcohol: None Drugs: Denies - CARDIAC Hx Heart Murmur: Yes (childhood) - PULMONARY Hx Respiratory Disorders: No - NEUROLOGICAL Hx Neurological Disorder: No - HEENT Hx HEENT Problems: No - RENAL Hx Chronic Kidney Disease: No - ENDOCRINE/METABOLIC Hx Endocrine Disorders: No - HEMATOLOGICAL/ONCOLOGICAL Hx Blood Disorders: Yes Hx Anemia: Yes - INTEGUMENTARY Hx Dermatological Problems: No - MUSCULOSKELETAL/RHEUMATOLOGICAL Hx Musculoskeletal Disorders: No Hx Arthritis: No Hx Falls: No - GASTROINTESTINAL Hx Gastrointestinal Disorders: No - GENITOURINARY/GYNECOLOGICAL Hx Genitourinary Disorders: No - PSYCHIATRIC Hx Psychophysiologic Disorder: No Hx Substance Use: Yes - SURGICAL HISTORY Hx Surgeries: Yes Hx Section: Yes (x1) - ANESTHESIA Hx Anesthesia: Yes Hx Anesthesia Reactions: No Meds Allergies/Adverse Reactions: Allergies Allergy/AdvReac Type Severity Reaction Status Date / Time acetaminophen [From Tylenol] AdvReac Intermediate SHORTNESS Verified 05/29/18 09:00 OF BREATH Physical Exam - Constitutional Appears: Non-toxic, No Acute Distress - Head Exam Head Exam: ATRAUMATIC - Eye Exam Eye Exam: EOMI, PERRL - ENT Exam ENT Exam: Normal Oropharynx - Neck Exam Neck exam: Positive for: Full Rom - Respiratory Exam Respiratory Exam: NORMAL BREATHING PATTERN Additional comments: no wheezing mild crackles at left base no wheezing - Cardiovascular Exam Cardiovascular Exam: RRR, +S1, +S2 - GI/Abdominal Exam GI & Abdominal Exam: Normal Bowel Sounds, Soft Additional comments: NT, ND - Extremities Exam Extremities exam: Positive for: normal inspection - Neurological Exam Neurological exam: Alert, Oriented x3 - Skin Additional comments: right breast larger than the left with multiple round papular lesions without any discharge, not pustular, no vesicles some of the lesions look like they have bled in past , there is no fluctuation but underneath the skin feels somewhat hardened skin the lesions are all surrounding the areolar region in circular pattern, no lesions on the axilla or back or anywhere else no lumps on exam no axillary lymphadenopathy Results - Vital Signs Recent Vital Signs: Last Vital Signs Temp 98.0 F 05/30/18 08:31 Pulse 90 05/30/18 08:31 Resp 20 05/30/18 08:31 BP 123/67 05/30/18 08:31 Pulse Ox 99 05/30/18 08:31 - Labs Result Diagrams: 05/30/18 06:00 05/30/18 06:00 Labs: Laboratory Results - last 24 hr 05/29/18 05/29/18 05/29/18 08:30 10:10 10:10 WBC RBC Hgb Hct MCV MCH MCHC RDW Plt Count MPV Neut % (Auto) Lymph % (Auto) [place] % (Auto) Eos % (Auto) Baso % (Auto) Neut # (Auto) Lymph # (Auto) [place] # (Auto) Eos # (Auto) Baso # (Auto) Neutrophils % (Manual) Lymphocytes % (Manual) Monocytes % (Manual) Platelet Estimate Hypochromasia (manual) Anisocytosis (manual) Microcytosis (manual) Ovalocytes Schistocytes Retic Count Sodium Potassium Chloride Carbon Dioxide Anion Gap BUN Creatinine Est GFR ( Amer) Est GFR (Non-Af Amer) Random Glucose Calcium Iron < 10 L TIBC 407 % Saturation 2.457 L Ferritin 5.5 L Total Bilirubin AST ALT Alkaline Phosphatase Total Protein Albumin Globulin Albumin/Globulin Ratio Triglycerides Cholesterol LDL Cholesterol Direct HDL Cholesterol Free T4 TSH 3rd Generation Blood Type A POSITIVE Antibody Screen Negative Crossmatch See Detail BBK History Checked No verified bt 05/30/18 05/30/18 05/30/18 06:00 06:00 06:00 WBC 11.0 H RBC 3.69 L Hgb 8.5 L D Hct 27.6 L MCV 74.7 L D MCH 23.0 L MCHC 30.8 L RDW 23.3 H Plt Count 384 MPV 8.3 Neut % (Auto) 79.7 H Lymph % (Auto) 9.8 L [place] % (Auto) 9.3 Eos % (Auto) 0.9 Baso % (Auto) 0.3 Neut # (Auto) 8.7 H Lymph # (Auto) 1.1 [place] # (Auto) 1.0 H Eos # (Auto) 0.1 Baso # (Auto) 0.0 Neutrophils % (Manual) 88 H Lymphocytes % (Manual) 8 L Monocytes % (Manual) 4 Platelet Estimate Normal Hypochromasia (manual) Moderate Anisocytosis (manual) Moderate Microcytosis (manual) Slight Ovalocytes Slight Schistocytes Slight Retic Count Sodium 140 Potassium 4.0 Chloride 109 H Carbon Dioxide 23 Anion Gap 12 BUN 12 Creatinine 0.5 L Est GFR ( Amer) > 60 Est GFR (Non-Af Amer) > 60 Random Glucose 98 Calcium 8.7 Iron TIBC % Saturation Ferritin Total Bilirubin 1.9 H AST 18 ALT 12 Alkaline Phosphatase 101 Total Protein 7.2 Albumin 3.6 Globulin 3.6 Albumin/Globulin Ratio 1.0 Triglycerides 111 Cholesterol 105 LDL Cholesterol Direct 64 HDL Cholesterol 35 Free T4 1.16 TSH 3rd Generation 2.59 Blood Type Antibody Screen Crossmatch BBK History Checked 05/30/18 06:00 WBC RBC Hgb Hct MCV MCH MCHC RDW Plt Count MPV Neut % (Auto) Lymph % (Auto) [place] % (Auto) Eos % (Auto) Baso % (Auto) Neut # (Auto) Lymph # (Auto) [place] # (Auto) Eos # (Auto) Baso # (Auto) Neutrophils % (Manual) Lymphocytes % (Manual) Monocytes % (Manual) Platelet Estimate Hypochromasia (manual) Anisocytosis (manual) Microcytosis (manual) Ovalocytes Schistocytes Retic Count 2.2 H Sodium Potassium Chloride Carbon Dioxide Anion Gap BUN Creatinine Est GFR ( Amer) Est GFR (Non-Af Amer) Random Glucose Calcium Iron TIBC % Saturation Ferritin Total Bilirubin AST ALT Alkaline Phosphatase Total Protein Albumin Globulin Albumin/Globulin Ratio Triglycerides Cholesterol LDL Cholesterol Direct HDL Cholesterol Free T4 TSH 3rd Generation Blood Type Antibody Screen Crossmatch BBK History Checked Laboratory Results - last 72 hr 05/29/18 05/29/18 05/29/18 08:30 08:30 08:30 WBC 8.5 RBC 2.53 L Hgb 4.9 L* Hct 17.8 L MCV 70.3 L MCH 19.2 L MCHC 27.4 L RDW 23.4 H Plt Count 373 MPV 8.2 Neut % (Auto) 78.2 H Lymph % (Auto) 11.5 L [place] % (Auto) 9.2 Eos % (Auto) 0.7 Baso % (Auto) 0.4 Neut # (Auto) 6.7 Lymph # (Auto) 1.0 [place] # (Auto) 0.8 Eos # (Auto) 0.1 Baso # (Auto) 0.0 Neutrophils % (Manual) Lymphocytes % (Manual) Monocytes % (Manual) Platelet Estimate Hypochromasia (manual) Anisocytosis (manual) Microcytosis (manual) Ovalocytes Schistocytes Retic Count PT 14.6 H INR 1.3 APTT 26.4 Sodium 143 Potassium 4.2 Chloride 109 H Carbon Dioxide 23 Anion Gap 15 BUN 12 Creatinine 0.6 L Est GFR ( Amer) > 60 Est GFR (Non-Af Amer) > 60 Random Glucose 111 H Hemoglobin A1c Calcium 8.8 Iron TIBC % Saturation Ferritin Total Bilirubin 0.3 AST 18 ALT 19 Alkaline Phosphatase 95 NT-Pro-B Natriuret Pep 2860 H Total Protein 6.8 Albumin 3.5 Globulin 3.3 Albumin/Globulin Ratio 1.0 Triglycerides Cholesterol LDL Cholesterol Direct HDL Cholesterol CA 125 Antigen Free T4 TSH 3rd Generation Urine Color Urine Clarity Urine pH Ur Specific [place] Urine Protein Urine Glucose (UA) Urine Ketones Urine Blood Urine Nitrate Urine Bilirubin Urine Urobilinogen Ur Leukocyte Esterase Urine RBC (Auto) Urine Microscopic WBC Ur Squamous Epith Cells Urine Bacteria Blood Type Blood Type Confirm Antibody Screen Crossmatch BBK History Checked 05/29/18 05/29/18 05/29/18 08:30 09:10 09:15 WBC RBC Hgb Hct MCV MCH MCHC RDW Plt Count MPV Neut % (Auto) Lymph % (Auto) [place] % (Auto) Eos % (Auto) Baso % (Auto) Neut # (Auto) Lymph # (Auto) [place] # (Auto) Eos # (Auto) Baso # (Auto) Neutrophils % (Manual) Lymphocytes % (Manual) Monocytes % (Manual) Platelet Estimate Hypochromasia (manual) Anisocytosis (manual) Microcytosis (manual) Ovalocytes Schistocytes Retic Count PT INR APTT Sodium Potassium Chloride Carbon Dioxide Anion Gap BUN Creatinine Est GFR ( Amer) Est GFR (Non-Af Amer) Random Glucose Hemoglobin A1c Calcium Iron TIBC % Saturation Ferritin Total Bilirubin AST ALT Alkaline Phosphatase NT-Pro-B Natriuret Pep Total Protein Albumin Globulin Albumin/Globulin Ratio Triglycerides Cholesterol LDL Cholesterol Direct HDL Cholesterol CA 125 Antigen Free T4 TSH 3rd Generation Urine Color Yellow Urine Clarity Cloudy Urine pH 5.0 Ur Specific [place] 1.017 Urine Protein 100 Urine Glucose (UA) Neg Urine Ketones Negative Urine Blood Large Urine Nitrate Negative Urine Bilirubin Negative Urine Urobilinogen 0.2-1.0 Ur Leukocyte Esterase Large Urine RBC (Auto) 179 H Urine Microscopic WBC 213 H Ur Squamous Epith Cells 3 Urine Bacteria Rare Blood Type A POSITIVE Blood Type Confirm A POSITIVE Antibody Screen Negative Crossmatch See Detail BBK History Checked No verified bt 05/29/18 05/29/18 05/30/18 10:10 10:10 06:00 WBC 11.0 H RBC 3.69 L Hgb 8.5 L D Hct 27.6 L MCV 74.7 L D MCH 23.0 L MCHC 30.8 L RDW 23.3 H Plt Count 384 MPV 8.3 Neut % (Auto) 79.7 H Lymph % (Auto) 9.8 L [place] % (Auto) 9.3 Eos % (Auto) 0.9 Baso % (Auto) 0.3 Neut # (Auto) 8.7 H Lymph # (Auto) 1.1 [place] # (Auto) 1.0 H Eos # (Auto) 0.1 Baso # (Auto) 0.0 Neutrophils % (Manual) 88 H Lymphocytes % (Manual) 8 L Monocytes % (Manual) 4 Platelet Estimate Normal Hypochromasia (manual) Moderate Anisocytosis (manual) Moderate Microcytosis (manual) Slight Ovalocytes Slight Schistocytes Slight Retic Count PT INR APTT Sodium Potassium Chloride Carbon Dioxide Anion Gap BUN Creatinine Est GFR ( Amer) Est GFR (Non-Af Amer) Random Glucose Hemoglobin A1c Calcium Iron < 10 L TIBC 407 % Saturation 2.457 L Ferritin 5.5 L Total Bilirubin AST ALT Alkaline Phosphatase NT-Pro-B Natriuret Pep Total Protein Albumin Globulin Albumin/Globulin Ratio Triglycerides Cholesterol LDL Cholesterol Direct HDL Cholesterol CA 125 Antigen Free T4 TSH 3rd Generation Urine Color Urine Clarity Urine pH Ur Specific [place] Urine Protein Urine Glucose (UA) Urine Ketones Urine Blood Urine Nitrate Urine Bilirubin Urine Urobilinogen Ur Leukocyte Esterase Urine RBC (Auto) Urine Microscopic WBC Ur Squamous Epith Cells Urine Bacteria Blood Type Blood Type Confirm Antibody Screen Crossmatch BBK History Checked 05/30/18 05/30/18 05/30/18 06:00 06:00 06:00 WBC RBC Hgb Hct MCV MCH MCHC RDW Plt Count MPV Neut % (Auto) Lymph % (Auto) [place] % (Auto) Eos % (Auto) Baso % (Auto) Neut # (Auto) Lymph # (Auto) [place] # (Auto) Eos # (Auto) Baso # (Auto) Neutrophils % (Manual) Lymphocytes % (Manual) Monocytes % (Manual) Platelet Estimate Hypochromasia (manual) Anisocytosis (manual) Microcytosis (manual) Ovalocytes Schistocytes Retic Count PT INR APTT Sodium 140 Potassium 4.0 Chloride 109 H Carbon Dioxide 23 Anion Gap 12 BUN 12 Creatinine 0.5 L Est GFR ( Amer) > 60 Est GFR (Non-Af Amer) > 60 Random Glucose 98 Hemoglobin A1c 5.1 Calcium 8.7 Iron TIBC % Saturation Ferritin Total Bilirubin 1.9 H AST 18 ALT 12 Alkaline Phosphatase 101 NT-Pro-B Natriuret Pep Total Protein 7.2 Albumin 3.6 Globulin 3.6 Albumin/Globulin Ratio 1.0 Triglycerides 111 Cholesterol 105 LDL Cholesterol Direct 64 HDL Cholesterol 35 CA 125 Antigen 378 H Free T4 1.16 TSH 3rd Generation 2.59 Urine Color Urine Clarity Urine pH Ur Specific [place] Urine Protein Urine Glucose (UA) Urine Ketones Urine Blood Urine Nitrate Urine Bilirubin Urine Urobilinogen Ur Leukocyte Esterase Urine RBC (Auto) Urine Microscopic WBC Ur Squamous Epith Cells Urine Bacteria Blood Type Blood Type Confirm Antibody Screen Crossmatch BBK History Checked 05/30/18 06:00 WBC RBC Hgb Hct MCV MCH MCHC RDW Plt Count MPV Neut % (Auto) Lymph % (Auto) [place] % (Auto) Eos % (Auto) Baso % (Auto) Neut # (Auto) Lymph # (Auto) [place] # (Auto) Eos # (Auto) Baso # (Auto) Neutrophils % (Manual) Lymphocytes % (Manual) Monocytes % (Manual) Platelet Estimate Hypochromasia (manual) Anisocytosis (manual) Microcytosis (manual) Ovalocytes Schistocytes Retic Count 2.2 H PT INR APTT Sodium Potassium Chloride Carbon Dioxide Anion Gap BUN Creatinine Est GFR ( Amer) Est GFR (Non-Af Amer) Random Glucose Hemoglobin A1c Calcium Iron TIBC % Saturation Ferritin Total Bilirubin AST ALT Alkaline Phosphatase NT-Pro-B Natriuret Pep Total Protein Albumin Globulin Albumin/Globulin Ratio Triglycerides Cholesterol LDL Cholesterol Direct HDL Cholesterol CA 125 Antigen Free T4 TSH 3rd Generation Urine Color Urine Clarity Urine pH Ur Specific [place] Urine Protein Urine Glucose (UA) Urine Ketones Urine Blood Urine Nitrate Urine Bilirubin Urine Urobilinogen Ur Leukocyte Esterase Urine RBC (Auto) Urine Microscopic WBC Ur Squamous Epith Cells Urine Bacteria Blood Type Blood Type Confirm Antibody Screen Crossmatch BBK History Checked Accession No. : [id number] Patient Name / ID : RYLEE ONEIL / [id number] Exam Date : 05/29/2018 08:37:33 ( Approved ) Study Comment : Sex / Age : F / 57Y Creator : Syed Avalos MD Dictator : Syed Avalos MD [employer] : Load Checker : Syed Avalos MD Approver2 : Report Date : 05/29/2018 09:25:41 My Comment : Date of service: 05/29/2018 HISTORY: chest pain/ r/o infiltrate COMPARISON: No prior. TECHNIQUE: Chest PA and lateral FINDINGS: LUNGS: No active pulmonary disease. PLEURA: Trace fluid or thickening is seen in the minor fissure. Minimal right pleural effusion in question. None is seen at the left. No pneumothorax bilaterally.. No pneumothorax apparent. CARDIOVASCULAR: Calcific atherosclerotic changes are seen related to the thoracic aorta. Mild cardiomegaly. Borderline pulmonary vascular congestion. OSSEOUS STRUCTURES: No significant abnormalities. VISUALIZED UPPER ABDOMEN: Normal. OTHER FINDINGS: None. IMPRESSION: Mild cardiomegaly. Pulmonary vascular congestion in question. Trace right pleural effusion. No definitive alveolitis bilaterally. Accession No. : [id number] Patient Name / ID : RYLEE ONEIL / [id number] Exam Date : 05/30/2018 11:36:45 ( Approved ) Study Comment : Sex / Age : F / Y Creator : Syed Avalos MD Dictator : Syed Avalos MD [employer] : Load Checker : Syed Avalos MD Approver2 : Report Date : 05/30/2018 13:12:31 My Comment : Date of service: 2018-05-30 11:36:45 HISTORY: Patient is a 57-year-old female with history of extensive right breast rash and swelling. COMPARISON: None available. TECHNIQUE: Ultrasound of the right breast was performed throughout all 4 quadrants including retroareolar acted tail components. Grayscale technique was utilized under high-frequency with occasional color Doppler technique applied. FINDINGS: RIGHT BREAST: There is extensive edema is appreciated throughout all 4 quadrants of the right breast with variable dermal thickening identified sparing the axillary tail segment. The dermis measures from 5.4 mm at the upper inner quadrant up to 12.1 mm at the right lower outer quadrant adjacent to a hyperemic skin nodule measuring 6 mm greatest dimension at the dermis at the approximate 8 o'clock radius 1 cm from the nipple. Diffuse edematous changes are appreciated through out the interstitial segment of the right breast diffusely with no focal cystic or solid mass identified in any of the 4 quadrants or the retroareolar space. Color Doppler ultrasonography of the thickened dermis diffusely suggests hyperemia. At the right axillary tail region and axilla, there is a 1.5 x 1.2 cm hypoechoic structure with smooth peripheral margins and moderate posterior acoustic en hancement, renal form in shape. Very small hilum is appreciated with the vast majority of this structure appearing hypoechoic suggesting either a complex cyst or a pathologically enlarged lymph node. A more benign-appearing lymph node is seen in the right axilla measuring 3.0 x 0.9 cm with cortex measuring only up to 1.8 mm thickness. An additional sub cm hypoechoic structure is identified of u ncertain origin, also the right axilla.. IMPRESSION: This is a nonspecific pattern of edema and hyperemia and likely right axillary lymphadenopathy. Because the nipple and retroareolar sonographic images are unremarkable, Paget's disease is not favored. However, inflammatory carcinoma and infectious or inflammatory mastitis are the leading diagnoses. Patient prefers not to undergo mammography due to severe pain at the right breast. It is not possible to differentiate between benign and malignant etiologies listed in the differential above. Accordingly, follow-up surgical consultation is advised for possible skin punch biopsy as well as further clinical correlation as to additional clinical signs of infection. BIRAD: BIRADS 4 Suspicious finding Recommendation: Biopsy is recommended. Accession No. : [id number] Patient Name / ID : RYLEE ONEIL / [id number] Exam Date : 05/29/2018 23:28:18 ( Approved ) Study Comment : Sex / Age : F Y Creator : Syed Avalos MD Dictator : Syed Avalos MD [employer] : Load Checker : Syed Avalos MD Approver2 : Report Date : 05/30/2018 11:26:52 My Comment : Date of service: 05/30/2018 PROCEDURE: BILATERAL LOWER EXTREMITY VENOUS DOPPLERS HISTORY: Chest pain, no definite infiltrate. COMPARISON: None available. TECHNIQUE: Grayscale and duplex Doppler ultrasound bilateral lower extremity major deep veins was performed including graded compression and augmentation. FINDINGS: There is good compressibility, augmentation, normal phasic venous blood flow and unremarkable morphology at the bilateral common and superficial femoral as well as popliteal veins with the bilateral posterior tibial veins widely patent and compressible as well. No ultrasound evidence to suggest deep venous thrombosis bilateral lower extremities. IMPRESSION: No ultrasound evidence to suggest deep venous thrombosis bilateral lower extremities. Accession No. : [id number] Patient Name / ID : RYLEE ONEIL / [id number] Exam Date : 05/30/2018 10:55:00 ( Approved ) Study Comment : Sex / Age : Creator : Krystle Gage MD Dictator : Krystle Gage MD [employer] : Load Checker : Krystle Gage MD Approver2 : Report Date : 05/30/2018 13:20:33 My Comment : Date of service: 05/30/2018 HISTORY: anemia, r/o malignancy COMPARISON: None available. TECHNIQUE: Transabdominal and transvaginal pelvic ultrasound was performed. FINDINGS: UTERUS: Measures 14.2 x 12.3 x 11.1 cm. Anteverted and enlarged. There is a large 10.4 x 11.7 x 9.5 cm fundal fibroid. ENDOMETRIUM: Obliterated by the large fibroid. CERVIX: No cervical abnormality identified. RIGHT OVARY: Not visualized. LEFT OVARY: There is 11.1 x 11.6 x 8.7 cm complex mass with cystic areas in the left adnexa. The mass also demonstrates mild increased central vascularity. FREE FLUID: No significant free fluid noted. OTHER FINDINGS: None. IMPRESSION: 1. Large 10.4 x 11.7 x 9.5 cm fundal fibroid. 2. 11.1 x 11.6 x 8.7 cm complex mass with mild central increased vascularity in the left adnexa concerning for ovarian neoplasm. Dedicated MRI of the pelvis without and with intravenous contrast is recommended for further evaluation. Assessment & Plan (1) Severe anemia Status: Acute (2) Skin lesion of breast Status: Acute (3) New onset of congestive heart failure Status: Acute - Assessment and Plan (Free Text) Assessment: A/P- 57 year old female with h/o uterine fibroid admitted with severe anemia and right breast swelling and papule like lesions on the right breast . based on clinical exam findings and the finding of severe anemia and menses in a 57 year old femele Malignancy must be ruled out. I highly doubt and infectious process of the right breast . transvaginal US reported as possible adnexal mass as well. plan- highly advise biopsy of at least one of the breast lesions to r/o malignancy such as inflammatory breast carcinoma vs paget's disease and to also send it for cx and fungal culture . advise to place warm compress on the right breast for now to help reduce the inflamamtion . mastitis less likely however, no objection to empiric abx to cover for skin pathognes pending biopsy results. pt. would certainly need seo analyst onc evaluation as well. All labs and imaging and chart notes reviewed. All above also d/w patient at length and she verbalizes full understanding of all above and agrees with above plan of care. Thank you for allowing met o take part in the care of this patient.
--- NOTE | 2018-05-30 11:10 | CP.PCM.CON ---
Addendum entered and electronically signed by Alissa AbadahDO 05/30/18 15:25: Physical EXAM: General: alert oriented, NAD, well nontoxic, pt admits to loss of appetite and recent weight loss Head: normocephalic atraumatic Cardio: RRR Pulm: normal breathing ppattern: Breast: numerous papillary lesions of various sizes over the surface of the right breast, some of the lesions are cracked and appear to have bled in the past, there is no fluctuance or signs of fluid collections, there is not drainage or purulent fluid , there is not nipple discharge expressed, there is induration below the area of the nipple and laterally at the 10 o'clock position but no masses felt on exam, no enlarged lymph nodes in the tail of jimenez or axillary region, left breast exam shows no abnormality Abdomen: soft NT ND no guarding Extremities: warm, no calf tenderness, trace pedal edema Neuro: AOx3, no motor sensory deficits Psych: normal mood normal affect Skin: numerous papillary lesions of various sizes over the surface of the right breast, some of the lesions are cracked and appear to have bled in the past, there is no fluctuance or signs of fluid collections, there is not drainage or purulent fluid, these lesions are solid and do not appear to be fluid filled Original Note: History of Present Illness - History of Present Illness History of Present Illness: General Surgery Consult for Dr. Enriquez Consulted for Right breast rash, r/o malignancy Patient is a 57 yr old female with no PMH who presented to [facility] with 2 weeks of SOB and cough. Upon presentation she was found to have a rash on her right breast which had been present for 3 weeks per patient. Patient states that the area is not painful unless touched such as by clothing. She was given antibiotics by her primary care doctor and has been taking them but has not noticed any improvement in her rash. She denies any history of Zoster vaccines. She denies family history of malignancy. She otherwise denies BROWN, CP, f/c, n/v, abdominal pain, stool changes and extremity pain or weakness Patient is a 57 yr old female with no Past Med hx: denies chronic issues Past Surg hx: 37 yrs ago OBhx: pt states she is "going through menopause" but still has her period every month, LMP 05/25/18, currently menstruating, 1 prior Soc hx: denies tobacco, alcohol, drug use Fam hx: denies malignancy, diabetes, htn, DE, stroke Allergies: tylenol Meds: oral iron Review of Systems - Review of Systems All systems: reviewed and no additional remarkable complaints except (as per HPI) Past Patient History - Past Medical History & Family History Past Medical History?: Yes - Past Social History Smoking Status: Never Smoked 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 Alcohol: None Drugs: Denies - CARDIAC Hx Cardiac Disorders: Yes Hx Heart Murmur: Yes (childhood) - PULMONARY Hx Respiratory Disorders: No - NEUROLOGICAL Hx Neurological Disorder: No - HEENT Hx HEENT Problems: No - RENAL Hx Chronic Kidney Disease: No - ENDOCRINE/METABOLIC Hx Endocrine Disorders: No - HEMATOLOGICAL/ONCOLOGICAL Hx Blood Disorders: Yes Hx Anemia: Yes - INTEGUMENTARY Hx Dermatological Problems: No - MUSCULOSKELETAL/RHEUMATOLOGICAL Hx Musculoskeletal Disorders: No Hx Arthritis: No Hx Falls: No - GASTROINTESTINAL Hx Gastrointestinal Disorders: No - GENITOURINARY/GYNECOLOGICAL Hx Genitourinary Disorders: No - PSYCHIATRIC Hx Psychophysiologic Disorder: No Hx Substance Use: Yes - SURGICAL HISTORY Hx Surgeries: Yes Hx Section: Yes (x1) - ANESTHESIA Hx Anesthesia: Yes Hx Anesthesia Reactions: No Meds Allergies/Adverse Reactions: Allergies Allergy/AdvReac Type Severity Reaction Status Date / Time acetaminophen [From Tylenol] AdvReac Intermediate SHORTNESS Verified 05/29/18 09:00 OF BREATH Results - Vital Signs Recent Vital Signs: Last Vital Signs Temp 98.0 F 05/30/18 08:31 Pulse 90 05/30/18 08:31 Resp 20 05/30/18 08:31 BP 123/67 05/30/18 08:31 Pulse Ox 99 05/30/18 08:31 - Labs Result Diagrams: 05/30/18 06:00 05/30/18 06:00 Labs: Laboratory Results - last 24 hr 05/29/18 05/30/18 05/30/18 08:30 06:00 06:00 WBC 11.0 H RBC 3.69 L Hgb 8.5 L D Hct 27.6 L MCV 74.7 L D MCH 23.0 L MCHC 30.8 L RDW 23.3 H Plt Count 384 MPV 8.3 Neut % (Auto) 79.7 H Lymph % (Auto) 9.8 L [place] % (Auto) 9.3 Eos % (Auto) 0.9 Baso % (Auto) 0.3 Neut # (Auto) 8.7 H Lymph # (Auto) 1.1 [place] # (Auto) 1.0 H Eos # (Auto) 0.1 Baso # (Auto) 0.0 Neutrophils % (Manual) 88 H Lymphocytes % (Manual) 8 L Monocytes % (Manual) 4 Platelet Estimate Normal Hypochromasia (manual) Moderate Anisocytosis (manual) Moderate Microcytosis (manual) Slight Ovalocytes Slight Schistocytes Slight Retic Count Sodium 140 Potassium 4.0 Chloride 109 H Carbon Dioxide 23 Anion Gap 12 BUN 12 Creatinine 0.5 L Est GFR ( Amer) > 60 Est GFR (Non-Af Amer) > 60 Random Glucose 98 Calcium 8.7 Total Bilirubin 1.9 H AST 18 ALT 12 Alkaline Phosphatase 101 Total Protein 7.2 Albumin 3.6 Globulin 3.6 Albumin/Globulin Ratio 1.0 Triglycerides 111 Cholesterol 105 LDL Cholesterol Direct 64 HDL Cholesterol 35 Free T4 TSH 3rd Generation 2.59 Blood Type A POSITIVE Antibody Screen Negative Crossmatch See Detail BBK History Checked No verified bt 05/30/18 05/30/18 06:00 06:00 WBC RBC Hgb Hct MCV MCH MCHC RDW Plt Count MPV Neut % (Auto) Lymph % (Auto) [place] % (Auto) Eos % (Auto) Baso % (Auto) Neut # (Auto) Lymph # (Auto) [place] # (Auto) Eos # (Auto) Baso # (Auto) Neutrophils % (Manual) Lymphocytes % (Manual) Monocytes % (Manual) Platelet Estimate Hypochromasia (manual) Anisocytosis (manual) Microcytosis (manual) Ovalocytes Schistocytes Retic Count 2.2 H Sodium Potassium Chloride Carbon Dioxide Anion Gap BUN Creatinine Est GFR ( Amer) Est GFR (Non-Af Amer) Random Glucose Calcium Total Bilirubin AST ALT Alkaline Phosphatase Total Protein Albumin Globulin Albumin/Globulin Ratio Triglycerides Cholesterol LDL Cholesterol Direct HDL Cholesterol Free T4 1.16 TSH 3rd Generation Blood Type Antibody Screen Crossmatch BBK History Checked Assessment & Plan - Assessment and Plan (Free Text) Assessment: 57 yr old female with R breast rash Plan: punch biopsy of suspicious lesions abx/antivirals per ID recommendations Mammogram for further evaluation d/w Dr. Mina Abad, PGY 1 - Date & Time Date: 05/30/18 Time: 11:05
--- NOTE | 2018-05-30 11:32 | US ---
Date of service: 05/30/2018 PROCEDURE: BILATERAL LOWER EXTREMITY VENOUS DOPPLERS HISTORY: Chest pain, no definite infiltrate. COMPARISON: None available. TECHNIQUE: Grayscale and duplex Doppler ultrasound bilateral lower extremity major deep veins was performed including graded compression and augmentation. FINDINGS: There is good compressibility, augmentation, normal phasic venous blood flow and unremarkable morphology at the bilateral common and superficial femoral as well as popliteal veins with the bilateral posterior tibial veins widely patent and compressible as well. No ultrasound evidence to suggest deep venous thrombosis bilateral lower extremities. IMPRESSION: No ultrasound evidence to suggest deep venous thrombosis bilateral lower extremities.
--- NOTE | 2018-05-30 13:18 | US ---
Date of service: 2018-05-30 11:36:45 HISTORY: Patient is a 57-year-old female with history of extensive right breast rash and swelling. COMPARISON: None available. TECHNIQUE: Ultrasound of the right breast was performed throughout all 4 quadrants including retroareolar acted tail components. Grayscale technique was utilized under high-frequency with occasional color Doppler technique applied. FINDINGS: RIGHT BREAST: There is extensive edema is appreciated throughout all 4 quadrants of the right breast with variable dermal thickening identified sparing the axillary tail segment. The dermis measures from 5.4 mm at the upper inner quadrant up to 12.1 mm at the right lower outer quadrant adjacent to a hyperemic skin nodule measuring 6 mm greatest dimension at the dermis at the approximate 8 o'clock radius 1 cm from the nipple. Diffuse edematous changes are appreciated throughout the interstitial segment of the right breast diffusely with no focal cystic or solid mass identified in any of the 4 quadrants or the retroareolar space. Color Doppler ultrasonography of the thickened dermis diffusely suggests hyperemia. At the right axillary tail region and axilla, there is a 1.5 x 1.2 cm hypoechoic structure with smooth peripheral margins and moderate posterior acoustic enhancement, renal form in shape. Very small hilum is appreciated with the vast majority of this structure appearing hypoechoic suggesting either a complex cyst or a pathologically enlarged lymph node. A more benign-appearing lymph node is seen in the right axilla measuring 3.0 x 0.9 cm with cortex measuring only up to 1.8 mm thickness. An additional sub cm hypoechoic structure is identified of uncertain origin, also the right axilla.. IMPRESSION: This is a nonspecific pattern of edema and hyperemia and likely right axillary lymphadenopathy. Because the nipple and retroareolar sonographic images are unremarkable, Paget's disease is not favored. However, inflammatory carcinoma and infectious or inflammatory mastitis are the leading diagnoses. Patient prefers not to undergo mammography due to severe pain at the right breast. It is not possible to differentiate between benign and malignant etiologies listed in the differential above. Accordingly, follow-up surgical consultation is advised for possible skin punch biopsy as well as further clinical correlation as to additional clinical signs of infection. BIRAD: BIRADS 4 Suspicious finding Recommendation: Biopsy is recommended.
--- NOTE | 2018-05-30 13:26 | US ---
Date of service: 05/30/2018 HISTORY: anemia, r/o malignancy COMPARISON: None available. TECHNIQUE: Transabdominal and transvaginal pelvic ultrasound was performed. FINDINGS: UTERUS: Measures 14.2 x 12.3 x 11.1 cm. Anteverted and enlarged. There is a large 10.4 x 11.7 x 9.5 cm fundal fibroid. ENDOMETRIUM: Obliterated by the large fibroid. CERVIX: No cervical abnormality identified. RIGHT OVARY: Not visualized. LEFT OVARY: There is 11.1 x 11.6 x 8.7 cm complex mass with cystic areas in the left adnexa. The mass also demonstrates mild increased central vascularity. FREE FLUID: No significant free fluid noted. OTHER FINDINGS: None. IMPRESSION: 1. Large 10.4 x 11.7 x 9.5 cm fundal fibroid. 2. 11.1 x 11.6 x 8.7 cm complex mass with mild central increased vascularity in the left adnexa concerning for ovarian neoplasm. Dedicated MRI of the pelvis without and with intravenous contrast is recommended for further evaluation.
[2018-05-30] MEDS ORDERED: Lidocaine 1% Inj (20ml) IJ ONE (14:53)
--- NOTE | 2018-05-30 18:34 | CARD ---
APPROVED REPORT Date of service: 05/30/2018 EXAM: Two-dimensional and M-mode echocardiogram with Doppler and color Doppler. Other Information Quality : ExcellentRhythm : NSR INDICATION Peripheral Edema Elevated BNP 2D DIMENSIONS IVSd0.72 (0.7-1.1cm)LVDd6.57 (3.9-5.9cm) LVOT Diameter1.78 (1.8-2.4cm)PWd0.90 (0.7-1.1cm) IVSs1.00 (0.8-1.2cm)LVDs4.84 (2.5-4.0cm) FS (%) 26.3 %PWs1.64 (0.8-1.2cm) M-Mode DIMENSIONS Left Atrium (MM)4.94 (2.5-4.0cm)IVSd0.94 (0.7-1.1cm) Aortic Root2.47 (2.2-3.7cm)LVDd6.38 (4.0-5.6cm) Aortic Cusp Exc.1.79 (1.5-2.0cm)PWd1.18 (0.7-1.1cm) IVSs0.94 cmFS (%) 23 % LVDs4.94 (2.0-3.8cm)PWs1.41 cm Aortic Valve AoV Peak Nvgmdjjd964.1cm/sAoV VTI30.8cmAO Peak GR.12mmHg LVOT Peak Qfvmpppt936.1cm/sLVOT VTI24.35cmAO Mean GR.7mmHg PRIMITIVO (VMAX)1.08vq1RRL (VTI)1.17cm2 Mitral Valve MV E Xxxjazeo804.1cm/sMV DECEL NWBO327wcYW A Bawcagpe602.0cm/s MV GLL75evG/A ratio1.1MVA (PHT)3.77cm2 TDI Lateral E' Peak V10.84cm/sMedial E' Peak V6.68cm/sE/Lateral E'11.7 E/Medial E'19.0 Pulmonary Valve PV Peak Kgpaugpw259.9cm/s Tricuspid Valve TR Peak Dllwjkkl418ch/sRAP VESPPUHY76pqUvPQ Peak Gr.37mmHg [id number] LEFT VENTRICLE The Left Ventricle is moderately dilated. There is normal left ventricular wall thickness. The systolic function is low normal. The estimated ejection fraction is 50-55% No regional wall motion abnormalities noted.. Transmitral Doppler flow pattern is Grade II-pseudonormal filling dynamics. No left ventricle thrombus noted on this study. There is no ventricular septal defect visualized. There is no left ventricular aneurysm. There is no mass noted in the left ventricle. RIGHT VENTRICLE The right ventricle is normal size. There is normal right ventricular wall thickness. The right ventricular systolic function is normal. ATRIA The left atrium is severely dilated. The right atrium size is normal. The interatrial septum is intact with no evidence for an atrial septal defect. AORTIC VALVE The aortic valve is normal in structure. No aortic regurgitation is present. There is no aortic valvular stenosis. There is no aortic valvular vegetation. MITRAL VALVE The mitral valve is normal in structure. There is no evidence of mitral valve prolapse. There is no mitral valve stenosis. There is severe mitral valve regurgitation noted. TRICUSPID VALVE The tricuspid valve is normal in structure. There is mild tricuspid valve regurgitation noted. RVSP is calculated at 45 mm Hg. There is no tricuspid valve prolapse or vegetation. There is no tricuspid valve stenosis. PULMONIC VALVE The pulmonary valve is normal in structure. There is no pulmonic valvular regurgitation. There is no pulmonic valvular stenosis. GREAT VESSELS The aortic root is normal in size. The ascending aorta is normal in size. The pulmonary artery is normal. The IVC is normal in size and collapses >50% with inspiration. PERICARDIAL EFFUSION There is small to moderate pericardial effusion. There is no pleural effusion. <Conclusion> The Left Ventricle is moderately dilated. The estimated ejection fraction is 50-55% Transmitral Doppler flow pattern is Grade II-pseudonormal filling dynamics. The left atrium is severely dilated. There is severe mitral valve regurgitation noted. There is mild tricuspid valve regurgitation noted. RVSP is calculated at 45 mm Hg.
[2018-05-31 00:28] VITALS: RESP 18
[2018-05-31 06:07] LABS: BASO # 0.1 K/uL (0.0-0.2); BASO % 0.6 % (0.0-2.0); EOS # 0.1 K/uL (0.0-0.7); EOS % 1.2 % (0.0-4.0); HEMOGLOBIN 8.5 g/dL (12.0-16.0); LYMPH # 1.3 K/uL (1.0-4.3); LYMPH % 13.1 % (20.0-40.0); MEAN CELL VOLUME 76.3 fl (81.0-99.0); MEAN CORPUSCULAR HEMOGLOBIN 23.6 pg (27.0-31.0); MEAN CORPUSCULAR HGB CONC 30.9 g/dL (33.0-37.0); MEAN PLATELET VOLUME 8.6 fl (7.2-11.7); MONO # 0.8 K/uL (0.0-0.8); MONO % 8.2 % (0.0-10.0); NEUT # 7.7 K/uL (1.8-7.0); NEUT % 76.9 % (50.0-75.0); RBC 3.61 Mil/uL (3.80-5.20); RED CELL DISTRIBUTION WIDTH 24.3 % (11.5-14.5)
--- NOTE | 2018-05-31 09:21 | CP.PCM.PN ---
Subjective - Date & Time of Evaluation Date of Evaluation: 05/31/18 Time of Evaluation: 09:20 - Subjective Subjective: ID Note- Pt. seen and examined today. pt. denies any fever or chills today. denies any dysurea. states since applying the warm compresses her right breast is less edematous and less tight skin. Objective - Vital Signs/Intake and Output Vital Signs (last 24 hours): Temp Pulse Resp BP Pulse Ox 98.4 F 90 18 107/64 95 05/31/18 05:17 05/31/18 05:17 05/31/18 05:17 05/31/18 05:17 05/31/18 05:17 - Medications Medications: Current Medications Vancomycin HCl 1 gm/ Sodium (Chloride) 250 mls @ 166.667 mls/hr IVPB Q12 GLADIS; Protocol Last Admin: 05/31/18 09:06 Dose: 166.667 mls/hr - Labs Labs: - Additional Findings Additional findings: - Constitutional Appears: Non-toxic, No Acute Distress - Head Exam Head Exam: ATRAUMATIC - Eye Exam Eye Exam: EOMI, PERRL - ENT Exam ENT Exam: Normal Oropharynx - Neck Exam Neck exam: Positive for: Full Rom - Respiratory Exam Respiratory Exam: NORMAL BREATHING PATTERN Additional comments: no wheezing mild crackles at left base no wheezing - Cardiovascular Exam Cardiovascular Exam: RRR, +S1, +S2 - GI/Abdominal Exam GI & Abdominal Exam: Normal Bowel Sounds, Soft Additional comments: NT, ND - Extremities Exam Extremities exam: Positive for: normal inspection - Neurological Exam Neurological exam: Alert, Oriented x3 - Skin Additional comments: right breast larger than the left with multiple round papular lesions without any discharge, not pustular, no vesicles some of the lesions look like they have bled in past , there is no fluctuation but underneath the skin feels somewhat hardened skin the lesions are all surrounding the areolar region in circular pattern, no lesions on the axilla or back or anywhere else no lumps on exam no axillary lymphadenopathy Laboratory Results - last 72 hr 05/29/18 05/29/18 05/29/18 08:30 08:30 08:30 WBC 8.5 RBC 2.53 L Hgb 4.9 L* Hct 17.8 L MCV 70.3 L MCH 19.2 L MCHC 27.4 L RDW 23.4 H Plt Count 373 MPV 8.2 Neut % (Auto) 78.2 H Lymph % (Auto) 11.5 L [place] % (Auto) 9.2 Eos % (Auto) 0.7 Baso % (Auto) 0.4 Neut # (Auto) 6.7 Lymph # (Auto) 1.0 [place] # (Auto) 0.8 Eos # (Auto) 0.1 Baso # (Auto) 0.0 Neutrophils % (Manual) Lymphocytes % (Manual) Monocytes % (Manual) Platelet Estimate Hypochromasia (manual) Anisocytosis (manual) Microcytosis (manual) Ovalocytes Schistocytes Retic Count PT 14.6 H INR 1.3 APTT 26.4 Sodium 143 Potassium 4.2 Chloride 109 H Carbon Dioxide 23 Anion Gap 15 BUN 12 Creatinine 0.6 L Est GFR ( Amer) > 60 Est GFR (Non-Af Amer) > 60 Random Glucose 111 H Hemoglobin A1c Calcium 8.8 Iron TIBC % Saturation Ferritin Total Bilirubin 0.3 AST 18 ALT 19 Alkaline Phosphatase 95 NT-Pro-B Natriuret Pep 2860 H Total Protein 6.8 Albumin 3.5 Globulin 3.3 Albumin/Globulin Ratio 1.0 Triglycerides Cholesterol LDL Cholesterol Direct HDL Cholesterol CA 125 Antigen Free T4 TSH 3rd Generation Urine Color Urine Clarity Urine pH Ur Specific [place] Urine Protein Urine Glucose (UA) Urine Ketones Urine Blood Urine Nitrate Urine Bilirubin Urine Urobilinogen Ur Leukocyte Esterase Urine RBC (Auto) Urine Microscopic WBC Ur Squamous Epith Cells Urine Bacteria Blood Type Blood Type Confirm Antibody Screen Crossmatch BBK History Checked 05/29/18 05/29/18 05/29/18 08:30 09:10 09:15 WBC RBC Hgb Hct MCV MCH MCHC RDW Plt Count MPV Neut % (Auto) Lymph % (Auto) [place] % (Auto) Eos % (Auto) Baso % (Auto) Neut # (Auto) Lymph # (Auto) [place] # (Auto) Eos # (Auto) Baso # (Auto) Neutrophils % (Manual) Lymphocytes % (Manual) Monocytes % (Manual) Platelet Estimate Hypochromasia (manual) Anisocytosis (manual) Microcytosis (manual) Ovalocytes Schistocytes Retic Count PT INR APTT Sodium Potassium Chloride Carbon Dioxide Anion Gap BUN Creatinine Est GFR ( Amer) Est GFR (Non-Af Amer) Random Glucose Hemoglobin A1c Calcium Iron TIBC % Saturation Ferritin Total Bilirubin AST ALT Alkaline Phosphatase NT-Pro-B Natriuret Pep Total Protein Albumin Globulin Albumin/Globulin Ratio Triglycerides Cholesterol LDL Cholesterol Direct HDL Cholesterol CA 125 Antigen Free T4 TSH 3rd Generation Urine Color Yellow Urine Clarity Cloudy Urine pH 5.0 Ur Specific [place] 1.017 Urine Protein 100 Urine Glucose (UA) Neg Urine Ketones Negative Urine Blood Large Urine Nitrate Negative Urine Bilirubin Negative Urine Urobilinogen 0.2-1.0 Ur Leukocyte Esterase Large Urine RBC (Auto) 179 H Urine Microscopic WBC 213 H Ur Squamous Epith Cells 3 Urine Bacteria Rare Blood Type A POSITIVE Blood Type Confirm A POSITIVE Antibody Screen Negative Crossmatch See Detail BBK History Checked No verified bt 05/29/18 05/29/18 05/30/18 10:10 10:10 06:00 WBC 11.0 H RBC 3.69 L Hgb 8.5 L D Hct 27.6 L MCV 74.7 L D MCH 23.0 L MCHC 30.8 L RDW 23.3 H Plt Count 384 MPV 8.3 Neut % (Auto) 79.7 H Lymph % (Auto) 9.8 L [place] % (Auto) 9.3 Eos % (Auto) 0.9 Baso % (Auto) 0.3 Neut # (Auto) 8.7 H Lymph # (Auto) 1.1 [place] # (Auto) 1.0 H Eos # (Auto) 0.1 Baso # (Auto) 0.0 Neutrophils % (Manual) 88 H Lymphocytes % (Manual) 8 L Monocytes % (Manual) 4 Platelet Estimate Normal Hypochromasia (manual) Moderate Anisocytosis (manual) Moderate Microcytosis (manual) Slight Ovalocytes Slight Schistocytes Slight Retic Count PT INR APTT Sodium Potassium Chloride Carbon Dioxide Anion Gap BUN Creatinine Est GFR ( Amer) Est GFR (Non-Af Amer) Random Glucose Hemoglobin A1c Calcium Iron < 10 L TIBC 407 % Saturation 2.457 L Ferritin 5.5 L Total Bilirubin AST ALT Alkaline Phosphatase NT-Pro-B Natriuret Pep Total Protein Albumin Globulin Albumin/Globulin Ratio Triglycerides Cholesterol LDL Cholesterol Direct HDL Cholesterol CA 125 Antigen Free T4 TSH 3rd Generation Urine Color Urine Clarity Urine pH Ur Specific [place] Urine Protein Urine Glucose (UA) Urine Ketones Urine Blood Urine Nitrate Urine Bilirubin Urine Urobilinogen Ur Leukocyte Esterase Urine RBC (Auto) Urine Microscopic WBC Ur Squamous Epith Cells Urine Bacteria Blood Type Blood Type Confirm Antibody Screen Crossmatch BBK History Checked 05/30/18 05/30/18 05/30/18 06:00 06:00 06:00 WBC RBC Hgb Hct MCV MCH MCHC RDW Plt Count MPV Neut % (Auto) Lymph % (Auto) [place] % (Auto) Eos % (Auto) Baso % (Auto) Neut # (Auto) Lymph # (Auto) [place] # (Auto) Eos # (Auto) Baso # (Auto) Neutrophils % (Manual) Lymphocytes % (Manual) Monocytes % (Manual) Platelet Estimate Hypochromasia (manual) Anisocytosis (manual) Microcytosis (manual) Ovalocytes Schistocytes Retic Count PT INR APTT Sodium 140 Potassium 4.0 Chloride 109 H Carbon Dioxide 23 Anion Gap 12 BUN 12 Creatinine 0.5 L Est GFR ( Amer) > 60 Est GFR (Non-Af Amer) > 60 Random Glucose 98 Hemoglobin A1c 5.1 Calcium 8.7 Iron TIBC % Saturation Ferritin Total Bilirubin 1.9 H AST 18 ALT 12 Alkaline Phosphatase 101 NT-Pro-B Natriuret Pep Total Protein 7.2 Albumin 3.6 Globulin 3.6 Albumin/Globulin Ratio 1.0 Triglycerides 111 Cholesterol 105 LDL Cholesterol Direct 64 HDL Cholesterol 35 CA 125 Antigen 378 H Free T4 1.16 TSH 3rd Generation 2.59 Urine Color Urine Clarity Urine pH Ur Specific [place] Urine Protein Urine Glucose (UA) Urine Ketones Urine Blood Urine Nitrate Urine Bilirubin Urine Urobilinogen Ur Leukocyte Esterase Urine RBC (Auto) Urine Microscopic WBC Ur Squamous Epith Cells Urine Bacteria Blood Type Blood Type Confirm Antibody Screen Crossmatch BBK History Checked 05/30/18 05/31/18 06:00 04:40 WBC 10.0 RBC 3.61 L Hgb 8.5 L Hct 27.5 L MCV 76.3 L MCH 23.6 L MCHC 30.9 L RDW 24.3 H Plt Count 317 MPV 8.6 Neut % (Auto) 76.9 H Lymph % (Auto) 13.1 L [place] % (Auto) 8.2 Eos % (Auto) 1.2 Baso % (Auto) 0.6 Neut # (Auto) 7.7 H Lymph # (Auto) 1.3 [place] # (Auto) 0.8 Eos # (Auto) 0.1 Baso # (Auto) 0.1 Neutrophils % (Manual) Lymphocytes % (Manual) Monocytes % (Manual) Platelet Estimate Hypochromasia (manual) Anisocytosis (manual) Microcytosis (manual) Ovalocytes Schistocytes Retic Count 2.2 H PT INR APTT Sodium Potassium Chloride Carbon Dioxide Anion Gap BUN Creatinine Est GFR ( Amer) Est GFR (Non-Af Amer) Random Glucose Hemoglobin A1c Calcium Iron TIBC % Saturation Ferritin Total Bilirubin AST ALT Alkaline Phosphatase NT-Pro-B Natriuret Pep Total Protein Albumin Globulin Albumin/Globulin Ratio Triglycerides Cholesterol LDL Cholesterol Direct HDL Cholesterol CA 125 Antigen Free T4 TSH 3rd Generation Urine Color Urine Clarity Urine pH Ur Specific [place] Urine Protein Urine Glucose (UA) Urine Ketones Urine Blood Urine Nitrate Urine Bilirubin Urine Urobilinogen Ur Leukocyte Esterase Urine RBC (Auto) Urine Microscopic WBC Ur Squamous Epith Cells Urine Bacteria Blood Type Blood Type Confirm Antibody Screen Crossmatch BBK History Checked Assessment and Plan (1) Severe anemia Status: Acute (2) Skin lesion of breast Status: Acute (3) New onset of congestive heart failure Status: Acute - Assessment and Plan (Free Text) Assessment: A/P- 57 year old female with h/o uterine fibroid admitted with severe anemia and right breast swelling and papule like lesions on the right breast . one low grade temp of 100 normal wbc righ breast less taught and less edematous plan- highly advise biopsy of at least one of the breast lesions to r/o malignancy such as inflammatory breast carcinoma vs paget's disease and to also send it for cx and fungal culture . advise to continue to place warm compress on the right breast for now to help reduce the inflamamtion . continue with empiric IV vancomycin to cover for skin pathogens. day #2. keep trough <15. pt. would certainly need clay molder onc evaluation as well. All above also d/w patient at length and she verbalizes full understanding of all above and agrees with above plan of care.
--- NOTE | 2018-05-31 11:49 | CP.PCM.PN ---
<Bella Phillips - Last Filed: 05/31/18 13:08> Subjective - Date & Time of Evaluation Date of Evaluation: 05/31/18 Time of Evaluation: 09:40 - Subjective Subjective: Patient seen/eval at bedside this am; no acute events overnight; no dizziness. Has been keeping warm compress on R breast as per ID recs, reports swelling has mildly decreased but not significantly. She is aware she is pending breast lesion biopsy today. Discussed with patient at length that while infectious cause of breast rash is possible, it is not likely (although she is being seen by ID and has been started on empiric antibiotics), and it is more likely that her total workup during this admission is concerning for malignancy; explained that imaging has shown suspicious mass near her left ovary and some suspicious findings on breast u/s as well. Also, discussed with patient that she has elevated tumor marker. Explained to patient that after discharge, she will need to follow up with nursing teacher/onc. Patient verbalized understanding, was able to ask clarifying questions and was able to explain information given back to me. Objective - Vital Signs/Intake and Output Vital Signs (last 24 hours): Temp Pulse Resp BP Pulse Ox 98.4 F 90 18 107/64 95 05/31/18 05:17 05/31/18 05:17 05/31/18 05:17 05/31/18 05:17 05/31/18 05:17 - Medications Medications: Current Medications Vancomycin HCl 1 gm/ Sodium (Chloride) 250 mls @ 166.667 mls/hr IVPB Q12 GLADIS; Protocol Last Admin: 05/31/18 09:06 Dose: 166.667 mls/hr - Labs Labs: 05/31/18 04:40 05/30/18 06:00 PT 14.6 Seconds (9.8-13.1) H 05/29/18 08:30 INR 1.3 05/29/18 08:30 APTT 26.4 Seconds (25.6-37.1) 05/29/18 08:30 - Constitutional Appears: No Acute Distress - Eye Exam Eye Exam: Normal appearance - ENT Exam ENT Exam: Mucous Membranes Moist - Respiratory Exam Respiratory Exam: Clear to Ausculation Bilateral, NORMAL BREATHING PATTERN. absent: Respiratory Distress Additional comments: right breast appears mildy less swollen than before but still with numeous round pustular lesions - Cardiovascular Exam Cardiovascular Exam: REGULAR RHYTHM, +S1, +S2 - GI/Abdominal Exam GI & Abdominal Exam: Soft. absent: Tenderness - Extremities Exam Extremities Exam: Normal Inspection. absent: Calf Tenderness - Neurological Exam Neurological Exam: Alert, Oriented x3 - Skin Additional comments: numerous pustular lesions on R breast Assessment and Plan - Assessment and Plan (Free Text) Assessment: 57 yo F with hx anemia, admitted due to critically low hemoglobin at 4.9, s/p 3U PRBC with appopriate improvement to 8.5 Pt initially presented to ED with leg swelling, cough, and breast rash x 2 weeks; initial findings suspicious for new onset CHF and/or malignancy. Pelvic u/s showed left adnexal mass, and pt has elevated CEA marker; suspicion for malignancy. Breast u/s BIRADS 4- also s uspicious for malignancy. Will need f/u with nursing teacher/onc. Pending punch biopsy of breast lesions today. Started on antibiotics as per ID for emperic treatment of possible infectious cause of breast rash. Hemodynamically stable; Hgb holding at 8.5. Plan: Anemia -Hgb 4.9 on admission; 3U PRBC ordered in ED -Now Hgb 8.5,holding steady -Oraal ferrous sulfate Left Adnexal Mass -U/s: 11.1x11.6x8.7 cm complex mass w/ cystic areas in left adnexa. The mass also demonstrates mild increased central vascularity. -Suspicious for malignancy -CA 125 elevated -MRI pending -HEEL LAYER consult rec outpt f/u -Will need f/u with nursing teacher/onc Breast Rash -Right breast - BIRADS 4 -HEEL LAYER consult - recs outpt endometrial biopsy and ID; however after new findings on u/s pt will be seen by -ID consult - started IV vanco empirically, rec biopsy and cultures -Surg consult - punch biopsy today; will send for path and fungal cultures (spoke to surg resident) Lower Extremity Edema -Resolved -Elevated BNP 2860; echo shows EF 50-55% -CXR w/ pulmonary congestion, mild cardiomegaly -Bilateral lower ext doppler neg for DVT -Echocardiogram - EF 50-55% Diet -Regular diet DVT prophylaxis -SCDs <Briana Ruiz - Last Filed: 05/31/18 13:58> Objective - Vital Signs/Intake and Output Vital Signs (last 24 hours): Temp Pulse Resp BP Pulse Ox 98.3 F 103 H 18 126/70 97 05/31/18 13:57 05/31/18 13:57 05/31/18 13:57 05/31/18 13:57 05/31/18 13:57 - Medications Medications: Current Medications Vancomycin HCl 1 gm/ Sodium (Chloride) 250 mls @ 166.667 mls/hr IVPB Q12 GLADIS; Protocol Last Admin: 05/31/18 09:06 Dose: 166.667 mls/hr - Labs Labs: 05/31/18 04:40 05/30/18 06:00 PT 14.6 Seconds (9.8-13.1) H 05/29/18 08:30 INR 1.3 05/29/18 08:30 APTT 26.4 Seconds (25.6-37.1) 05/29/18 08:30 Attending/Attestation - Attestation I have personally seen and examined this patient.: Yes I have fully participated in the care of the patient.: Yes I have reviewed all pertinent clinical information, including history, physical exam and plan: Yes Notes (Text): 05/31/18 13:58 Seen, examined, and discussed with resident. Agree with findings and plan as above.
[2018-05-31] MEDS ORDERED: Lidocaine 1% Inj (20ml) ONE (14:56)
--- NOTE | 2018-05-31 15:20 | CP.PCM.PN ---
Subjective - Date & Time of Evaluation Date of Evaluation: 05/31/18 Time of Evaluation: 15:17 - Subjective Subjective: Surgery: Dr. Hernandez covering for Dr. Enriquez Pt seen and examined. Attempted to do punch bx at bedside. Pt states that she is agreeable to to punch bx, but does not want it done at this time. She states "maybe later today" Objective - Vital Signs/Intake and Output Vital Signs (last 24 hours): Temp Pulse Resp BP Pulse Ox 98.3 F 103 H 18 126/70 97 05/31/18 13:57 05/31/18 13:57 05/31/18 13:57 05/31/18 13:57 05/31/18 13:57 - Medications Medications: Current Medications Vancomycin HCl 1 gm/ Sodium (Chloride) 250 mls @ 166.667 mls/hr IVPB Q12 GLADIS; Protocol Last Admin: 05/31/18 09:06 Dose: 166.667 mls/hr - Labs Labs: 05/31/18 04:40 05/30/18 06:00 PT 14.6 Seconds (9.8-13.1) H 05/29/18 08:30 INR 1.3 05/29/18 08:30 APTT 26.4 Seconds (25.6-37.1) 05/29/18 08:30 - Constitutional Appears: Non-toxic, No Acute Distress - Head Exam Head Exam: ATRAUMATIC, NORMOCEPHALIC - Eye Exam Eye Exam: EOMI - ENT Exam ENT Exam: Mucous Membranes Moist - Neck Exam Neck Exam: Full ROM - Respiratory Exam Respiratory Exam: NORMAL BREATHING PATTERN. absent: Accessory Muscle Use, Respiratory Distress - GI/Abdominal Exam GI & Abdominal Exam: Soft. absent: Tenderness - Neurological Exam Neurological Exam: Alert, Awake, Oriented x3 - Skin Additional comments: R breast, indurated tissue with nodular type lesions Assessment and Plan - Assessment and Plan (Free Text) Assessment: 57F w. R breast rash concerning for inflammatory CA -will do punch bx when pt is agreeable -d/w attending Aidaitis PGY4
--- NOTE | 2018-05-31 16:52 | CP.PCM.PN ---
Subjective - Date & Time of Evaluation Date of Evaluation: 05/31/18 Time of Evaluation: 16:52 - Subjective Subjective: OBGyn: Consult progress Pt is a 57 yo F admitted for severe anemia hg 4.9 s/p transfused 3 units of PRBCs, R breast rash, and new onset CHF. Pt seen today at bedside, states that since yesterday her R breast swelling and erythema has mildy improved since the start of antibiotics. Pt stated that she is agreeable to punch biopsy however later today. Denies fevers, chills or breast pain. Objective - Vital Signs/Intake and Output Vital Signs (last 24 hours): Temp Pulse Resp BP Pulse Ox 99.1 F 98 H 18 121/72 98 05/31/18 16:18 05/31/18 16:18 05/31/18 16:18 05/31/18 16:18 05/31/18 16:18 - Medications Medications: Current Medications Vancomycin HCl 1 gm/ Sodium (Chloride) 250 mls @ 166.667 mls/hr IVPB Q12 GLADIS; Protocol Last Admin: 05/31/18 09:06 Dose: 166.667 mls/hr - Labs Labs: 05/31/18 04:40 05/30/18 06:00 PT 14.6 Seconds (9.8-13.1) H 05/29/18 08:30 INR 1.3 05/29/18 08:30 APTT 26.4 Seconds (25.6-37.1) 05/29/18 08:30 - Constitutional Appears: Non-toxic, No Acute Distress - Head Exam Head Exam: ATRAUMATIC, NORMAL INSPECTION, NORMOCEPHALIC - Eye Exam Eye Exam: EOMI, Normal appearance - ENT Exam ENT Exam: Mucous Membranes Moist - Respiratory Exam Respiratory Exam: Clear to Ausculation Bilateral, NORMAL BREATHING PATTERN - Cardiovascular Exam Cardiovascular Exam: RRR, +S1, +S2 Additional comments: R breast has multiple erythematous nodules and pustules of varying sizes, swol rk R breast, no lymphadenopathy palpated - GI/Abdominal Exam GI & Abdominal Exam: Soft, Normal Bowel Sounds - Extremities Exam Extremities Exam: Normal Inspection - Neurological Exam Neurological Exam: Alert, Awake, Oriented x3 - Skin Skin Exam: Erythema, Rash Assessment and Plan - Assessment and Plan (Free Text) Assessment: Pt is a 57 yo F admitted for severe anemia hg 4.9 s/p transfused 3 units of PRBCs, R breast rash 3wks, and new onset CHF.She's been menstruating for 2 wks. Anemic hg 4.9 -Transfused 3U PRBC- completed, HG today 8.5 -Transvaginal U/S- [id number] complex mass with increased vascularities in L adnexa concerning for ovarian neoplasm -[id number] -Abnormal uterine bleeding- Recommend outpt endometrial biopsy -Pt advised to follow up with [facility]-in [place] Underwriting Internship Onc doctor -Dr. Wilkinson for further workup as outpt Breast Rash -r/o infectious vs malignancy -Infectious disease recommendations appreciated -c/w warm compresses and vanc -Breast U/S- possible inflammatory carcinoma or infectious mastitis, BIRADS 4 suspicious finding -F/u surgical breast punch biopsy Lower Extremity Edema -BNP 2860; suspected new onset CHF -CXR w/ pulmonary congestion, mild cardiomegaly -LE doppler, echo, lipid panel, TSH, HbA1c DVT ppx: SCD's OB will sign off, please reconsult as needed
[2018-05-31] MEDS ORDERED: Povidone Iodine Topical 10% Sol ONE (17:27)
--- NOTE | 2018-05-31 17:42 | PCM.SURG1 ---
Surgeon's Initial Post Op Note - Surgeon's Notes Surgeon: David Nurse Manager: Lisette PGY4 Type of Anesthesia: Local (1% lidocaine 10cc) Pre-Operative Diagnosis: R breast rash Operative Findings: edematous tissue with nodular masses Post-Operative Diagnosis: same Operation Performed: Punch Bx R breast 3 O'clock position Specimen/Specimens Removed: skin R breast Estimated Blood Loss: EBL {In ML}: 5 Blood Products Given: N/A Drains Used: No Drains Post-Op Condition: Good Date of Surgery/Procedure: 05/31/18 Time of Surgery/Procedure: 17:42
[2018-06-01 05:38] LABS: HEMOGLOBIN 8.4 g/dL (12.0-16.0); MEAN CELL VOLUME 75.2 fl (81.0-99.0); MEAN CORPUSCULAR HEMOGLOBIN 23.2 pg (27.0-31.0); MEAN CORPUSCULAR HGB CONC 30.9 g/dL (33.0-37.0); RBC 3.6 Mil/uL (3.80-5.20); RED CELL DISTRIBUTION WIDTH 24.4 % (11.5-14.5); WHITE BLOOD COUNT 9.9 K/uL (4.8-10.8)
[2018-06-01 05:46] LABS: ALBUMIN 3.2 g/dL (3.5-5.0); ALT/SGPT 12 U/L (9-52); AST/SGOT 19 U/L (14-36); BLOOD UREA NITROGEN 10 mg/dl (7-17); CALCIUM 8.9 mg/dL (8.4-10.2); GFR NON-AFRICAN AMERICAN > 60
[2018-06-01 05:55] VITALS: O2SAT 96
--- NOTE | 2018-06-01 07:00 | CP.PCM.PN ---
Subjective - Date & Time of Evaluation Date of Evaluation: 06/01/18 Time of Evaluation: 06:45 - Subjective Subjective: Surgery: Dr. Hernandez covering for Dr. Enriquez Patient seen and examined this am at bedside. ISHMAELEO per nursing. Patient states she is feeling well and denies pain at the biopsy site. She is tolerating her diet well. She denies any other complaints. Objective - Vital Signs/Intake and Output Vital Signs (last 24 hours): Temp Pulse Resp BP Pulse Ox 97.9 F 96 H 18 121/70 96 06/01/18 05:54 06/01/18 05:54 06/01/18 05:54 06/01/18 05:54 06/01/18 05:54 - Medications Medications: Current Medications Vancomycin HCl 1 gm/ Sodium (Chloride) 250 mls @ 166.667 mls/hr IVPB Q12 GLADIS; Protocol Last Admin: 05/31/18 21:45 Dose: 166.667 mls/hr - Labs Labs: 06/01/18 05:10 06/01/18 05:10 PT 14.6 Seconds (9.8-13.1) H 05/29/18 08:30 INR 1.3 05/29/18 08:30 APTT 26.4 Seconds (25.6-37.1) 05/29/18 08:30 - Constitutional Appears: Well, Non-toxic, No Acute Distress - Head Exam Head Exam: ATRAUMATIC, NORMOCEPHALIC - Eye Exam Eye Exam: EOMI - ENT Exam ENT Exam: Mucous Membranes Moist - Respiratory Exam Respiratory Exam: NORMAL BREATHING PATTERN - Cardiovascular Exam Cardiovascular Exam: REGULAR RHYTHM - GI/Abdominal Exam GI & Abdominal Exam: Soft. absent: Distended, Tenderness - Neurological Exam Neurological Exam: Alert, Awake, Oriented x3 - Psychiatric Exam Psychiatric exam: Normal Affect, Normal Mood - Skin Skin Exam: Dry, Warm Additional comments: punch biopsy site to left breast clean and dry with dressing in place, dressing changed bedside, no surrounding erythema, edema or fluctuance Assessment and Plan - Assessment and Plan (Free Text) Assessment: 57 yr old female with R breast rash concerning for inflammatory cancer Plan: f/u punch biopsy pathology results d/w attending Inna Abad, PGY1
[2018-06-01 08:54] VITALS: BP 113/66; PULSE 89; TEMP 98.1
--- NOTE | 2018-06-01 10:54 | CP.PCM.DIS ---
Provider - Provider Date of Admission: 05/29/18 09:42 Attending physician: Tee Yancey Primary care physician: Dr. Zambrano Consults: ID- Dr. Dexter General Surg - Dr. Mina JACKSON Time Spent in preparation of Discharge (in minutes): 40 Diagnosis - Discharge Diagnosis (1) Adnexal mass Status: Acute (2) Skin lesion of breast Status: Acute (3) Severe anemia Status: Resolved Hospital Course - Lab Results Lab Results: Most Recent Lab Values WBC 9.9 K/uL (4.8-10.8) 06/01/18 05:10 RBC 3.60 Mil/uL (3.80-5.20) L 06/01/18 05:10 Hgb 8.4 g/dL (12.0-16.0) L 06/01/18 05:10 Hct 27.1 % (34.0-47.0) L 06/01/18 05:10 MCV 75.2 fl (81.0-99.0) L 06/01/18 05:10 MCH 23.2 pg (27.0-31.0) L 06/01/18 05:10 MCHC 30.9 g/dL (33.0-37.0) L 06/01/18 05:10 RDW 24.4 % (11.5-14.5) H 06/01/18 05:10 Plt Count 337 K/uL (130-400) 06/01/18 05:10 MPV 8.6 fl (7.2-11.7) 05/31/18 04:40 Neut % (Auto) 76.9 % (50.0-75.0) H 05/31/18 04:40 Lymph % (Auto) 13.1 % (20.0-40.0) L 05/31/18 04:40 Sawyer % (Auto) 8.2 % (0.0-10.0) 05/31/18 04:40 Eos % (Auto) 1.2 % (0.0-4.0) 05/31/18 04:40 Baso % (Auto) 0.6 % (0.0-2.0) 05/31/18 04:40 Neut # (Auto) 7.7 K/uL (1.8-7.0) H 05/31/18 04:40 Lymph # (Auto) 1.3 K/uL (1.0-4.3) 05/31/18 04:40 Sawyer # (Auto) 0.8 K/uL (0.0-0.8) 05/31/18 04:40 Eos # (Auto) 0.1 K/uL (0.0-0.7) 05/31/18 04:40 Baso # (Auto) 0.1 K/uL (0.0-0.2) 05/31/18 04:40 Neutrophils % (Manual) 88 % (42-75) H 05/30/18 06:00 Lymphocytes % (Manual) 8 % (20-50) L 05/30/18 06:00 Monocytes % (Manual) 4 % (0-10) 05/30/18 06:00 Platelet Estimate Normal (NORMAL) 05/30/18 06:00 Hypochromasia (manual) Moderate 05/30/18 06:00 Anisocytosis (manual) Moderate 05/30/18 06:00 Microcytosis (manual) Slight 05/30/18 06:00 Ovalocytes Slight 05/30/18 06:00 Schistocytes Slight 05/30/18 06:00 Retic Count 2.2 % (0.5-1.5) H 05/30/18 06:00 PT 14.6 Seconds (9.8-13.1) H 05/29/18 08:30 INR 1.3 05/29/18 08:30 APTT 26.4 Seconds (25.6-37.1) 05/29/18 08:30 Sodium 140 mmol/l (132-148) 06/01/18 05:10 Potassium 4.2 MMOL/L (3.6-5.0) 06/01/18 05:10 Chloride 107 mmol/L (98-107) 06/01/18 05:10 Carbon Dioxide 25 mmol/L (22-30) 06/01/18 05:10 Anion Gap 12 (10-20) 06/01/18 05:10 BUN 10 mg/dl (7-17) 06/01/18 05:10 Creatinine 0.5 mg/dl (0.7-1.2) L 06/01/18 05:10 Est GFR ( Amer) > 60 06/01/18 05:10 Est GFR (Non-Af Amer) > 60 06/01/18 05:10 Random Glucose 105 mg/dL (65-105) 06/01/18 05:10 Hemoglobin A1c 5.1 % (4.2-6.5) 05/30/18 06:00 Calcium 8.9 mg/dL (8.4-10.2) 06/01/18 05:10 Iron < 10 ug/dL (37-170) L 05/29/18 10:10 TIBC 407 ug/dL (250-450) 05/29/18 10:10 % Saturation 2.457 % (20-55) L 05/29/18 10:10 Ferritin 5.5 ng/Ml (11.1-264.0) L 05/29/18 10:10 Total Bilirubin 0.6 mg/dl (0.2-1.3) 06/01/18 05:10 AST 19 U/L (14-36) 06/01/18 05:10 ALT 12 U/L (9-52) 06/01/18 05:10 Alkaline Phosphatase 85 U/L (38-126) 06/01/18 05:10 NT-Pro-B Natriuret Pep 2860 pg/ml (0-900) H 05/29/18 08:30 Total Protein 6.5 G/DL (6.3-8.2) 06/01/18 05:10 Albumin 3.2 g/dL (3.5-5.0) L 06/01/18 05:10 Globulin 3.3 gm/dL (2.2-3.9) 06/01/18 05:10 Albumin/Globulin Ratio 1.0 (1.0-2.1) 06/01/18 05:10 Triglycerides 111 mg/DL (0-149) 05/30/18 06:00 Cholesterol 105 mg/dL (0-199) 05/30/18 06:00 LDL Cholesterol Direct 64 mg/dL (0-129) 05/30/18 06:00 HDL Cholesterol 35 MG/DL (30-70) 05/30/18 06:00 CA 125 Antigen 378 U/mL (0-35) H 05/30/18 06:00 Free T4 1.16 ng/dL (0.78-2.19) 05/30/18 06:00 TSH 3rd Generation 2.59 mIU/ML (0.46-4.68) 05/30/18 06:00 Urine Color Yellow (YELLOW) 05/29/18 09:10 Urine Clarity Cloudy (Clear) 05/29/18 09:10 Urine pH 5.0 (5.0-8.0) 05/29/18 09:10 Ur Specific [place] 1.017 (1.003-1.030) 05/29/18 09:10 Urine Protein 100 mg/dL (NEGATIVE) 05/29/18 09:10 Urine Glucose (UA) Neg mg/dL (Normal) 05/29/18 09:10 Urine Ketones Negative mg/dL (NEGATIVE) 05/29/18 09:10 Urine Blood Large (NEGATIVE) 05/29/18 09:10 Urine Nitrate Negative (NEGATIVE) 05/29/18 09:10 Urine Bilirubin Negative (NEGATIVE) 05/29/18 09:10 Urine Urobilinogen 0.2-1.0 mg/dL (0.2-1.0) 05/29/18 09:10 Ur Leukocyte Esterase Large Vikas/uL (Negative) 05/29/18 09:10 Urine RBC (Auto) 179 /hpf (0-3) H 05/29/18 09:10 Urine Microscopic WBC 213 /hpf (0-5) H 05/29/18 09:10 Ur Squamous Epith Cells 3 /hpf (0-5) 05/29/18 09:10 Urine Bacteria Rare (<OCC) 05/29/18 09:10 HIV-1 Ab Rapid Screen Non reactive (NON REAC) 06/01/18 05:10 Blood Type A POSITIVE 05/29/18 08:30 Blood Type Confirm A POSITIVE 05/29/18 09:15 Antibody Screen Negative 05/29/18 08:30 Crossmatch See Detail 05/29/18 08:30 BBK History Checked No verified bt 05/29/18 08:30 - Hospital Course Hospital Course: 57 yo F with hx anemia, admitted due to critically low hemoglobin at 4.9, s/p 3U PRBC with appopriate improvement to 8.5 Pt initially presented to ED with leg swelling, cough, and breast rash x 2 weeks; initial findings suspicious for new onset CHF and/or malignancy. Pelvic u/s showed left adnexal mass, and pt has elevated CEA marker; suspicion for malignancy. Breast u/s BIRADS 4- also suspicious for malignancy. She underwent punch biopsy of cutaneous breast lesion, done by general surgery. DRAWBENCH OPERATOR consult rec outpt followup. ID saw patient as well; suspicion for infectious cause is low, but recommended empiric vanco while admitted and PO bactrim x 7 days outpt. Hemodynamically stable; Hgb holding at 8.4. Discussed with patient at length that while infectious cause of breast rash is possible (which is why she getting antibiotics), it is not likely, and it is more likely that her total workup during this admission is concerning for malignancy; explained that imaging has shown suspicious mass near her left ovary and some suspicious findings on breast u/s as well. Also, discussed with patient that she has elevated tumor marker. Explained to patient that after discharge, she will need to follow up with mule spinner/onc. Patient verbalized understanding, was able to ask clarifying questions and was able to explain information given back to me. Pt also advised to resume taking iron supplementation. Pt signed release of records form, allowing [facility] to release info regarding this admission (testing, labs, imaging) to Dr. Wilkinson, Spinning Supervisor-Onc a [facility]. Records to be faxed to [phone], the fax number provided when office ([phone]) is called. Discharge Exam - Head Exam Head Exam: ATRAUMATIC, NORMOCEPHALIC - Eye Exam Eye Exam: Normal appearance - ENT Exam ENT Exam: Mucous Membranes Moist - Respiratory Exam Respiratory Exam: Clear to PA & Lateral, NORMAL BREATHING PATTERN Additional comments: breast rash, multiple pustular lesions on R breast; site of biopsy with dressing, clean, dry - Cardiovascular Exam Cardiovascular Exam: REGULAR RHYTHM, +S1, +S2 - GI/Abdominal Exam GI & Abdominal Exam: Normal Bowel Sounds, Soft. absent: Tenderness - Extremities Exam Additional comments: trace edema - Back Exam Back exam: NORMAL INSPECTION - Neurological Exam Neurological exam: Alert, Oriented x3 - Skin Additional comments: breast rash, multiple pustular lesions on R breast; site of biopsy with dressing, clean, dry Discharge Plan - Discharge Medications Prescriptions: Sulfamethoxazole/Trimethoprim [Bactrim DS 800 mg-160 mg] 1 tab PO Q12 7 Days #14 tab - Follow Up Plan Condition: STABLE Disposition: HOME/ ROUTINE Instructions: Anemia Caused by Low Iron, Adult (DC) Additional Instructions: Please call [phone] within the next 1-2 days for an appointment with Dr. Wilkinson at Gynecology-Oncology Clinic at [facility]. Address for clinic: [address] [place] [address]. [place] [address] Please follow up with your PMD Dr. Brown within the next week. Please take 7 days of antibiotic Bactrim-DS as prescribed. Take 1 pill by mouth 12 hours apart for 7 days. Medication sent to your pharmacy, [facility]. Keep breast dressing dry and clean. Resume iron supplement. Referrals: Sunita Wilkinson MD [Medical Doctor] - Micheal Brown MD [Family Provider] -
--- NOTE | 2018-06-05 12:39 | PQF ---
PROVIDER RESPONSE TEXT: Iron Deficiency Anemia REVIEWER QUERY TEXT: Anemia Type Anemia is documented in the Medical Record. Please specify the cause (includes suspected or probable cause) Such as: -- Due to acute blood loss -- Due to chronic blood loss -- Due to iron deficiency -- Due to postoperative blood loss -- Due to chronic disease -- Other, please specify The patient's Clinical Indicators include: ER Physician Documentation Report "severe anemia." Query created by: Ninoska Suggs on 06/02/2018 1:35 PM Electronically signed by: Eri Teran MD 06/05/2018 12:37 PM
--- NOTE | 2018-06-05 12:39 | PQF ---
PROVIDER RESPONSE TEXT: Acute CHF, combined systolic and diastolic dysfunction REVIEWER QUERY TEXT: CHF Acuity and Type Congestive Heart Failure is documented in the Medical Record. Please document the type and acuity (in cludes probable or suspected) Such as: Type: -- Systolic -- Diastolic -- Combined -- Other, please specify Acuity: -- Acute -- Chronic -- Acute on chronic -- Other, please specify Also please document the underlying cause of the CHF (includes probable or suspected) The patient's Clinical Indicators include: BNP 2860 Query created by: Ninoska Suggs on 06/02/2018 1:33 PM Electronically signed by: Eri Teran MD 06/05/2018 12:37 PM
== END 2018-06-01 16:00 | disposition home or self-care (01) | DRG 663 ==
LOC: H.ER 07:44 → H.ERHOLD 09:42 → H.TEL 05-30 00:15
PROVIDERS: ADMIT Hospitalist; ATTEND Hospitalist
PROC: 30233N1 Transfusion of Nonautologous Red Blood Cells into Peripheral Vein, Percutaneous Approach (ICD-10-PCS; 2018-05-29)
PROC: [UNRECOGNIZED PROCEDURE] (principal; 2018-05-31)
DX: D50.0 Iron deficiency anemia secondary to blood loss (chronic) (principal); I50.41 Acute combined systolic (congestive) and diastolic (congestive) heart failure; N93.9 Abnormal uterine and vaginal bleeding, unspecified; D25.9 Leiomyoma of uterus, unspecified; R97.0 Elevated carcinoembryonic antigen [CEA]; L98.9 Disorder of the skin and subcutaneous tissue, unspecified; R21 Rash and other nonspecific skin eruption; Z88.6 Allergy status to analgesic agent

== ENCOUNTER 2018-07-06 12:57 | Observation (INO) | payer MEDICAID, SELFPAY ==
[2018-07-06 12:57] VITALS: BMI 24.7
[2018-07-06 13:06] VITALS: RESP 16
--- NOTE | 2018-07-06 13:19 | ED PDOC ---
HPI: Skin/Bite Injury Time Seen by Provider: 07/06/18 13:18 Chief Complaint (Nursing): Abnormal Skin Integrity Chief Complaint (Provider): Abnormal skin integrity History Per: Patient History/Exam Limitations: no limitations Onset/Duration Of Symptoms: Days (1x month) Current Symptoms Are (Timing): Still Present Quality Of Symptoms: Itching (itching after applyng antibiotic ointment) Severity: Moderate Additional Complaint(s): 58 year old female with no pertinent past medical history presents to the ED for an evaluation of abnormal skin integrity to her belly button area that has been ongoing for 1x month. Patient reports that she was seen here 1x month ago for a different complaint, and had a similar rash to her breast area that was evaluated. Pt was discharged after US and Bx of breast were done and she was sent home on Vanco and Bactrim. Pt was to follow up with [facility]; however, has yet to do so. Pt has been following up with Dr. Hernandez. Patient reports that the rash is not changing, there is no pain, and there is some itching only when she applies the antibiotic cream. Patient denies having any other complaints. PMD: Micheal Brown MD Past Medical History Reviewed: Historical Data, Nursing Documentation, Vital Signs Vital Signs: Last Vital Signs Temp 98.8 F 07/06/18 13:01 Pulse 98 H 07/06/18 13:01 Resp 16 07/06/18 13:01 BP 128/72 07/06/18 13:01 Pulse Ox 99 07/06/18 13:01 - Medical History PMH: Anemia Denies: Arthritis, Chronic Kidney Disease - Surgical History Surgical History: - Family History Family History: States: No Known Family Hx - Home Medications Home Medications: Ambulatory Orders Medication Instructions Recorded No Known Home Med 07/06/18 - Allergies Allergies/Adverse Reactions: Allergies Allergy/AdvReac Type Severity Reaction Status Date / Time acetaminophen [From Tylenol] AdvReac Unknown SHORTNESS Verified 07/06/18 13:01 OF BREATH Review of Systems ROS Statement: Except As Marked, All Systems Reviewed And Found Negative Skin: Positive for: Rash (rash to belly button. Itching when antibiotic ointment is applied. (-) pain.) Physical Exam - Reviewed Nursing Documentation Reviewed: Yes Vital Signs Reviewed: Yes - Physical Exam Appears: Positive for: Well, Non-toxic, No Acute Distress Head Exam: Positive for: ATRAUMATIC, NORMOCEPHALIC Skin: Positive for: Normal Color, Warm, Dry, Rash (Erythematous nodules scattered over right breast) Gastrointestinal/Abdominal: Positive for: Mass (erythema, tenderness, and drainage noticed to umbilicus with surrounding papules.) Neurologic/Psych: Positive for: Alert, Oriented (3x) - Laboratory Results Result Diagrams: 07/06/18 13:40 07/06/18 13:40 - ECG O2 Sat by Pulse Oximetry: 99 (RA) Pulse Ox Interpretation: Normal Medical Decision Making Medical Decision Makin:18 Initial impression: 58 year old female with abnormal skin integrity to the umbilicus Initial plan: * CT abd and pelvis IV contrast only * CMP * CBC with differential * erythrocyte sedimentation rate * reevaluation CT Abd/Pelvis 06/06/18: IMPRESSION: 1. Abnormal pelvic findings are identified including complex cystic and solid mass at the left lower quadrant measuring 16.9 cm greatest dimension, suspicion of cervical mass with endometrial mass or postobstructive debris/fluid within the endometrial cavity measuring up to 10 cm, and finally evidence to suggest metastatic deposits in the abdomen mesentery with retroperitoneal and pelvic side wall lymphadenopathy. 2. Cholelithiasis within a distended gallbladder. Further clinical correlation for potential cholecystitis advised though overt pattern of cholecystitis is not clearly evident at this time. 3. Mild hepatic steatosis. 4. Malignant, a inflammatory or infectious changes related to the visualize right breast as discussed above. US from breast on 05/30/18: IMPRESSION: This is a nonspecific pattern of edema and hyperemia and likely right axillary lymphadenopathy. Because the nipple and retroareolar sonographic images are unremarkable, Paget's disease is not favored. However, inflammatory carcinoma and infectious or inflammatory mastitis are the leading diagnoses. Patient prefers not to undergo mammography due to severe pain at the right breast. It is not possible to differentiate between benign and malignant etiologies listed in the differential above. Accordingly, follow-up surgical consultation is advised for possible skin punch biopsy as well as further clinical correlation as to additional clinical signs of infection. BIRAD: BIRADS 4 Suspicious finding Recommendation: Biopsy is recommended. Punch Biopsy results: Focal ulceration with underlying granulation tissue, containing acute-chronic inflammation. Final report was pending. Results from previous visit again discussed with Pt at length. Pt demonstrated full understanding. Pt states she followed up with last week who told her to follow up with oncology. Pt made an appointment with an oncologist in [place], cost her 100 dollars to get there and the physician was unable to help her according to pt. Reviewed patient's chart from 06/02/2018, patient was discharged from hospital and was supposed to follow up with [facility] at [facility]. Spoke with Swapna [phone]). Patient reprots she has been calling and is unable to get an appointment. Case discussed with ED MD, Dr. Palafox, who advised leukocytosis and drainage from umbilical granuloma, start Vanco and bactrim. Obs advised for newly discovered abdominal mass as well. -- Scribe Attestation: Documented by Mariaa Ballard, acting as a scribe for Arielle Ortiz Provider Scribe Attestation: All medical record entries made by the Scribe were at my direction and personally dictated by me. I have reviewed the chart and agree that the record accurately reflects my personal performance of the history, physical exam, medical decision making, and the department course for this patient. I have also personally directed, reviewed, and agree with the discharge instructions and disposition. Disposition - Clinical Impression Clinical Impression: Leukocytosis, Pelvic mass - Patient ED Disposition Is Patient to be Admitted: Yes - Disposition Disposition Time: 20:14 Condition: STABLE Forms: [employer] ([place]) - Pt Status Changed To: Hospital Disposition Of: Observation
[2018-07-06 13:50] LABS: BASO # 0.1 K/uL (0.0-0.2); BASO % 0.5 % (0.0-2.0); EOS % 0.2 % (0.0-4.0); HEMOGLOBIN 8.4 g/dL (12.0-16.0); LYMPH # 1.3 K/uL (1.0-4.3); LYMPH % 8.4 % (20.0-40.0); MEAN CELL VOLUME 75.2 fl (81.0-99.0); MEAN CORPUSCULAR HEMOGLOBIN 21.9 pg (27.0-31.0); MEAN CORPUSCULAR HGB CONC 29.2 g/dL (33.0-37.0); MEAN PLATELET VOLUME 7.5 fl (7.2-11.7); MONO % 6.6 % (0.0-10.0); NEUT # 13.1 K/uL (1.8-7.0); NEUT % 84.3 % (50.0-75.0); NRBC % 0.1 % (0.0-0.0); PLATELET COUNT 505 K/uL (130-400); RBC 3.84 Mil/uL (3.80-5.20); RED CELL DISTRIBUTION WIDTH 23.1 % (11.5-14.5); WHITE BLOOD COUNT 15.5 K/uL (4.8-10.8)
[2018-07-06 13:57] LABS: ALB/GLOB RATIO 0.9 (1.0-2.1); ALBUMIN 3.4 g/dL (3.5-5.0); ALT/SGPT 11 U/L (9-52); AST/SGOT 22 U/L (14-36); BLOOD UREA NITROGEN 11 mg/dl (7-17); CALCIUM 8.9 mg/dL (8.4-10.2); GFR NON-AFRICAN AMERICAN > 60
[2018-07-06] MEDS ORDERED: Sodium Chloride 0.9% 50 ML IV ONE (14:01)
[2018-07-06] MEDS ORDERED: Iohexol 300 100 ML IJ ONE (14:01)
[2018-07-06 15:20] LABS: LYMPHOCYTE 8 % (20-50); MONOCYTE 4 % (0-10); NEUTROPHIL 88 % (42-75); PLATELET ESTIMATE INCREASED (NORMAL); TOTAL CELLS COUNTED 100
[2018-07-06 15:21] LABS: ANISOCYTOSIS MARKED; HYPOCHROMIC MODERATE; MICROCYTOSIS SLIGHT; OVALOCYTES SLIGHT; SCHISTOCYTES SLIGHT; TEARDROP CELLS SLIGHT; TOXIC GRANULATION PRESENT
--- NOTE | 2018-07-06 15:30 | CT ---
Date of service: 07/06/2018 PROCEDURE: CT Abdomen and Pelvis with contrast HISTORY: umbilical mass noted COMPARISON: None. TECHNIQUE: Contrast dose: Omnipaque 300, 95 cc Radiation dose: Total exam DLP = 0.0 mGy-cm. This CT exam was performed using one or more of the following dose reduction techniques: Automated exposure control, adjustment of the mA and/or kV according to patient size, and/or use of iterative reconstruction technique. FINDINGS: LOWER THORAX: Mild right pleural effusion with minimal left pleural effusion evident. In addition, compression atelectasis seen affecting the right lower lobe with ground-glass opacity noted in the left lower lobe base. Further, cardiomegaly is noted. There is gross mural thickening at the right breast with nodular enhancement seen along the skin. Nodular enhancement is seen in the right breast parenchyma with the left breast as imaged appearing unremarkable grossly. Edematous changes and gross dermal thickening have been evaluated already in ultrasonography of the right breast performed 05/30/2018 with surgical consultation recommended at that time. LIVER: Diminished attenuation throughout an enlarged liver is appreciated suggestive of mild hepatic steatosis without focal mass identifiable. No intrahepatic biliary dilatation. Limited perihepatic ascites noted. GALLBLADDER AND BILE DUCTS: Gallbladder is rather distended with borderline mural thickening but no pericholecystic fluid collection related. Extensive cholelithiasis is identified at the proximal gallbladder approaching the neck. Extrahepatic biliary tree appears normal. PANCREAS: Unremarkable. No gross lesion or ductal dilatation. SPLEEN: Spleen is enlarged at 13 point 3 cm without definitive cyst or solid mass appreciable. Trace perisplenic ascites is noted. ADRENALS: Unremarkable. No mass. KIDNEYS AND URETERS: Unremarkable. No hydronephrosis. No solid mass. VASCULATURE: Unremarkable. No aortic aneurysm. No aortic atherosclerotic calcification or mural plaque present. BOWEL: Unremarkable. No obstruction. No gross mural thickening. APPENDIX: Not identified. PERITONEUM: Mild left lower quadrant ascites associated with presumed large left adnexal mass. Small masses are seen scattered at the superficial mesentery in the upper abdomen suspicious for metastatic deposits. Limited abdominal ascites is seen in the perihepatic perisplenic as well as left lower quadrant abdomen and minimally in the pelvis. LYMPH NODES: [id number] pelvic sidewall lymphadenopathy is appreciated at the left greater than right with a large retroperitoneal lymph node identified measuring 2.3 x 1.9 cm overlying the upper portion left psoas muscle posterior to the complex cystic mass at the left lower quadrant abdomen. BLADDER: Unremarkable. REPRODUCTIVE: There is a large mass which is predominantly cystic identified at the left lower quadrant abdomen/left flank measuring 11.7 x 16.9 x 16.8 cm (transverse by anteroposterior by superoinferior dimensions) abutting the left side of the uterus. Enhancement is inhomogeneous at the inferior portion of this lesion and extend somewhat lateral within it suspicious for possible left ovarian mass. Exophytically uterine mass is not felt to be the etiology. A small right adnexal cyst measures 2.0 cm. Further, the uterus is also abnormal with grossly abnormal cervix which exhibits irregular mural thickening. Endometrial cavity is distended with soft tissue lesion measuring 10.0 x 8.5 x 9.6 cm, potentially reflecting neoplasm or postobstructive retained debris/fluid related to cervical mass. BONES: No acute fracture. OTHER FINDINGS: None. IMPRESSION: 1. Abnormal pelvic findings are identified including complex cystic and solid mass at the left lower quadrant measuring 16.9 cm greatest dimension, suspicion of cervical mass with endometrial mass or postobstructive debris/fluid within the endometrial cavity measuring up to 10 cm, and finally evidence to suggest metastatic deposits in the abdomen mesentery with retroperitoneal and pelvic side wall lymphadenopathy. 2. Cholelithiasis within a distended gallbladder. Further clinical correlation for potential cholecystitis advised though overt pattern of cholecystitis is not clearly evident at this time. 3. Mild hepatic steatosis. 4. Malignant, a inflammatory or infectious changes related to the visualize right breast as discussed above.
[2018-07-06 15:38] LABS: ERYTHROCYTE SEDIMENTATION RATE 67 mm/hr (0-30)
[2018-07-06] MEDS ORDERED: Tmp-Smz 800 mg-160 mg DS Tab PO STA (17:12)
[2018-07-06] MEDS ORDERED: Vancomycin 1 g Inj ONE (17:20)
[2018-07-06] MEDS ORDERED: Tmp-Smz 800 mg-160 mg DS Tab ONE (17:21)
[2018-07-06 22:17] VITALS: BP 123/86; PULSE 85; TEMP 98.1; O2SAT 100
== END 2018-07-06 22:17 | disposition home or self-care (01) ==
LOC: H.ER 12:57 → H.ERHOLD 19:59
PROVIDERS: ADMIT Internal Medicine; ATTEND Internal Medicine
DX: P83.81 Umbilical granuloma (principal); R19.00 Intra-abdominal and pelvic swelling, mass and lump, unspecified site; R21 Rash and other nonspecific skin eruption
CPT/HCPCS: 74177; 80053; 85025; 85651; 87070; 99283; G0378; Q9967

== ENCOUNTER 2018-08-02 10:54 | Day surgery (SDC) | payer SELFPAY, MEDICAID ==
[2018-08-02 11:20] VITALS: BMI 23.9
[2018-08-02 12:10] LABS: INR 1.3; PROTHROMBIN TIME 14.9 Seconds (9.8-13.1)
[2018-08-02 12:12] LABS: PARTIAL THROMBOPLASTIN TIME 26.9 Seconds (25.6-37.1)
[2018-08-02] MEDS ORDERED: Lactated Ringer's 1,000 ML IV ONE (12:22)
[2018-08-02] MEDS ORDERED: Lidocaine 1% Inj (20ml) ONE (13:07)
[2018-08-02] MEDS ORDERED: Midazolam 2 MG/2 ML VIAL ONE (13:18)
[2018-08-02 13:40] VITALS: TEMP 99.1
--- NOTE | 2018-08-02 13:43 | CP.SDSHP ---
Same Day Surgery H & P - History Proposed Procedure: US guided pelvic mass biopsy Pre-Op Diagnosis: Large pelvic mass - Allergies Allergies: Allergies acetaminophen [From Tylenol] Adverse Reaction (Unknown, Verified 08/02/18 11:28) SHORTNESS OF BREATH palpitation - Physical Exam Vital Signs: Vital Signs 08/02/18 08/02/18 08/02/18 12:09 12:16 13:30 Temperature 98.8 F 99.1 F Pulse Rate 127 H 127 H 124 H Respiratory 20 22 Rate Blood Pressure 107/68 146/77 O2 Sat by Pulse 93 L 95 Oximetry Mental Status: Alert & Oriented x3 Neuro: WNL Heart: WNL Lungs: WNL - Impression Impression: Pt with large pelvic mass. Plan US guided core biopsy. Informed consent obtained. Pt. Evaluated Today:Candidate for Anesthesia & Procedure: Yes (ASA 3 Malampati 3) - Date & Time Date: 08/02/18 Time: 13:20 Short Stay Discharge - Short Stay Discharge Admitting Diagnosis/Reason for Visit: UTERINE MASS Disposition: HOME/ ROUTINE
--- NOTE | 2018-08-02 13:44 | PCM.SURG1 ---
Surgeon's Initial Post Op Note - Surgeon's Notes Surgeon: Serg Garcia MD Software Configuration Specialist: NONE Type of Anesthesia: IV Sedation Pre-Operative Diagnosis: Pelvic mass Operative Findings: US shows a large pelvic mass Post-Operative Diagnosis: Pelvic mass Operation Performed: US guided core biopsy Specimen/Specimens Removed: 18 g core x 3 Estimated Blood Loss: EBL {In ML}: 0 Blood Products Given: N/A Drains Used: No Drains Post-Op Condition: Fair Date of Surgery/Procedure: 08/02/18 Time of Surgery/Procedure: 13:35
[2018-08-02 14:37] VITALS: O2SAT 95
[2018-08-02 15:33] VITALS: BP 112/76; PULSE 108; RESP 20
== END 2018-08-02 16:30 | disposition home or self-care (01) ==
LOC: H.OPSURG 10:54
PROVIDERS: ATTEND Internal Medicine Medical Oncology
DX: R19.09 Other intra-abdominal and pelvic swelling, mass and lump (principal)
CPT/HCPCS: 36415; 49180; 85610; 85730; 87070; 88305; J2250; J3010; J7120

== ENCOUNTER 2018-08-04 10:44 | Inpatient (IN) | payer MEDICAID ==
[2018-08-04 10:47] VITALS: BMI 23.3
[2018-08-04] MEDS ORDERED: Sodium Chloride 0.9% 1,000 ML IV STA (11:31)
[2018-08-04 12:06] LABS: VENOUS BLOOD GAS BASE EXCESS 4.4 mmol/L (0.0-2.0); VENOUS BLOOD GAS PCO2 39 mmHg (40-60); VENOUS BLOOD GAS PO2 37 mm/Hg (30-55); VENOUS BLOOD PH 7.47 (7.32-7.43)
[2018-08-04 12:43] LABS: BASO % 0.1 % (0.0-2.0); EOS % 0.1 % (0.0-4.0); HEMOGLOBIN 7.2 g/dL (12.0-16.0); LYMPH # 1.2 K/uL (1.0-4.3); LYMPH % 5.8 % (20.0-40.0); MEAN CORPUSCULAR HEMOGLOBIN 21.8 pg (27.0-31.0); MEAN CORPUSCULAR HGB CONC 29.4 g/dL (33.0-37.0); MEAN PLATELET VOLUME 8.1 fl (7.2-11.7); MONO # 1.3 K/uL (0.0-0.8); MONO % 6.4 % (0.0-10.0); NEUT # 17.6 K/uL (1.8-7.0); NEUT % 87.6 % (50.0-75.0); NRBC % 0.1 % (0.0-0.0); PLATELET COUNT 394 K/uL (130-400); RED CELL DISTRIBUTION WIDTH 20.3 % (11.5-14.5); WHITE BLOOD COUNT 20.1 K/uL (4.8-10.8)
[2018-08-04 12:53] LABS: INR 1.3
[2018-08-04 12:56] LABS: PARTIAL THROMBOPLASTIN TIME 24.8 Seconds (25.6-37.1)
[2018-08-04 13:09] LABS: ALB/GLOB RATIO 0.8 (1.0-2.1); ALBUMIN 2.9 g/dL (3.5-5.0); ALT/SGPT 18 U/L (9-52); AST/SGOT 29 U/L (14-36); BLOOD UREA NITROGEN 20 mg/dl (7-17); CALCIUM 8.7 mg/dL (8.4-10.2); GFR NON-AFRICAN AMERICAN 51; LIPASE 30 U/L (23-300)
[2018-08-04 13:24] LABS: BANDS 2 % (0-2); LYMPHOCYTE 5 % (20-50); MONOCYTE 4 % (0-10); NEUTROPHIL 88 % (42-75); PLATELET ESTIMATE NORMAL (NORMAL); REACTIVE LYMPHOCYTES 1 % (0-0); TOTAL CELLS COUNTED 100
[2018-08-04 13:25] LABS: ANISOCYTOSIS SLIGHT; POIKILOCYTOSIS SLIGHT
[2018-08-04 13:26] LABS: HYPOCHROMIC SLIGHT; OVALOCYTES SLIGHT; TEARDROP CELLS SLIGHT; TOXIC GRANULATION PRESENT
[2018-08-04 13:28] LABS: B-TYPE NATRIURETIC PEPTIDE 33800 pg/ml (0-900)
--- NOTE | 2018-08-04 13:55 | ED PDOC ---
HPI: General Adult Time Seen by Provider: 08/04/18 10:53 Chief Complaint (Nursing): Weakness/Neurological Deficit Chief Complaint (Provider): Weakness / Dizziness History Per: Patient History/Exam Limitations: other (poor historian) Onset/Duration Of Symptoms: Days (a couple) Current Symptoms Are (Timing): Still Present Additional Complaint(s): 58 year old female presents to the ED for evaluation of what she says is weakness, dizziness, and heart palpitations s/p having a biopsy of her stomach a couple days ago. She denies having any past medical history or being on daily medications, but then went on to say that her oncologist recommended she get a chest CT next week. When asked why she was seeing an oncologist, she said it was because of the pimples on her stomach / breasts, and because she had menstruation. Patient appears to be a poor historian because as per the paperwork she brought in, she has breast and uterine cancers, recently worked up with a lymphnode biopsy two days ago. She otherwise offers not further complaints. Oncologist: Verito Daniel Past Medical History Reviewed: Historical Data, Nursing Documentation, Vital Signs Vital Signs: Last Vital Signs Temp 98.4 F 08/04/18 10:47 Pulse 142 H 08/04/18 10:47 Resp 17 08/04/18 10:47 BP 116/69 08/04/18 10:47 Pulse Ox 94 L 08/04/18 10:47 - Medical History PMH: Anemia Denies: Arthritis, Chronic Kidney Disease Other PMH: breast and uterine cancers - Surgical History Surgical History: Other surgeries: lymphnode biopsy - Family History Family History: States: Unknown Family Hx - Social History Current smoker - smoking cessation education provided: No Alcohol: Social Drugs: Other (hx of use, did not specify) - Home Medications Home Medications: Ambulatory Orders Medication Instructions Recorded Naproxen Sodium [Aleve] 220 mg PO Q12 PRN 08/02/18 Ferrous Sulfate [Feosol] 325 mg PO DAILY 08/04/18 Multivit/Folic Acid/Vit K1 1 tab PO DAILY 08/04/18 [One-A-Day Women's 50 Plus Tab] - Allergies Allergies/Adverse Reactions: Allergies Allergy/AdvReac Type Severity Reaction Status Date / Time acetaminophen [From Tylenol] AdvReac Unknown SHORTNESS Verified 08/02/18 11:28 OF BREATH Review of Systems ROS Statement: Except As Marked, All Systems Reviewed And Found Negative Constitutional: Positive for: Weakness Cardiovascular: Positive for: Palpitations Neurological: Positive for: Dizziness Physical Exam - Reviewed Nursing Documentation Reviewed: Yes Vital Signs Reviewed: Yes - Physical Exam Appears: Positive for: No Acute Distress Head Exam: Positive for: ATRAUMATIC, NORMAL INSPECTION, NORMOCEPHALIC Skin: Positive for: Pallor Eye Exam: Positive for: Normal appearance, EOMI, PERRL ENT: Positive for: Other (lips and mucus membranes dry) Neck: Positive for: Normal, Painless ROM, Supple Cardiovascular/Chest: Positive for: Tachycardia Respiratory: Positive for: Normal Breath Sounds. Negative for: Respiratory Distress Gastrointestinal/Abdominal: Positive for: Normal Exam, Tenderness (diffuse), Mass (fungating mass on umbilicus), Distended Back: Positive for: Normal Inspection Extremity: Positive for: Normal ROM. Negative for: Tenderness, Swelling Neurologic/Psych: Positive for: Alert, Oriented (x3) Comments: Breast Exam: Fungating masses covering majority of right breast and several fungating masses on left breast with no signs of cellulitis - Laboratory Results Result Diagrams: 08/04/18 11:53 08/04/18 11:53 Lab Results: pO2 37 mm/Hg (30-55) 08/04/18 11:31 VBG pH 7.47 (7.32-7.43) H 08/04/18 11:31 VBG pCO2 39 mmHg (40-60) L 08/04/18 11:31 VBG HCO3 27.9 mmol/L 08/04/18 11:31 VBG Total CO2 29.6 mmol/L (22-28) H 08/04/18 11:31 VBG O2 Sat (Calc) 68.2 % (40-65) H 08/04/18 11:31 VBG Base Excess 4.4 mmol/L (0.0-2.0) H 08/04/18 11:31 VBG Potassium 5.6 mmol/L (3.6-5.2) H 08/04/18 11:31 Sodium 134.0 mmol/L (132-148) 08/04/18 11:31 Chloride 102.0 mmol/L (98-107) 08/04/18 11:31 Glucose 136 mg/dL (65-105) H 08/04/18 11:31 Lactate 3.1 mmol/L (0.7-2.1) H 08/04/18 11:31 FiO2 21.0 % 08/04/18 11:31 PT 15.0 Seconds (9.8-13.1) H 08/04/18 11:53 INR 1.3 08/04/18 11:53 APTT 24.8 Seconds (25.6-37.1) L 08/04/18 11:53 Troponin I 1.3000 ng/mL (0.00-0.120) H* 08/04/18 11:53 NT-Pro-B Natriuret Pep 15017 pg/ml (0-900) H 08/04/18 11:53 Total Bilirubin 0.3 mg/dl (0.2-1.3) 08/04/18 11:53 AST 29 U/L (14-36) 08/04/18 11:53 ALT 18 U/L (9-52) 08/04/18 11:53 Alkaline Phosphatase 130 U/L (38-126) H D 08/04/18 11:53 Total Protein 6.7 G/DL (6.3-8.2) 08/04/18 11:53 Albumin 2.9 g/dL (3.5-5.0) L 08/04/18 11:53 Globulin 3.8 gm/dL (2.2-3.9) 08/04/18 11:53 Albumin/Globulin Ratio 0.8 (1.0-2.1) L 08/04/18 11:53 Lipase 30 U/L (23-300) 08/04/18 11:53 - ECG ECG Rhythm: Positive for: Sinus Tachycardia (at 142 bpm) O2 Sat by Pulse Oximetry: 94 (will put on 2L NC) Pulse Ox Interpretation: Abnormal Medical Decision Making Medical Decision Making: Time: 1118 Initial Impression: workup for lethargy and palpitations with tachycardia --patient appears to be in denial, or does not fully understand severity of her cancer --spoke with her oncologist who states he started workup of pt and secondary to the amount of mets seen on her previous pelvic CT, he recommends admission for hospice care/ comfort at this time Initial Plan: --Type and screen --VBG --CXR --BNP --CMP --Lipase --Trop I --CBC with differential --PT / PTT --Normal saline IV --2L NC [address] FINDINGS: LUNGS: Central airways appear grossly clear. Compressive atelectasis is appreciated related to the right greater than left lower lobes. Interlobular septal thickening is appreciated diffusely compatible with pulmonary edema related to CHF. Pulmonary vascular congestion is identified. MEDIASTINUM: Unremarkable thoracic aorta. No aneurysm. Cardiomegaly and mild pericardial effusion. Main pulmonary artery appears prominent up to 3.4 cm, borderline for pulmonary vascular congestion. Clinically correlate nevertheless. Numerous shotty mediastinal nodes are identified. Lack images contrast limits evaluation of mediastinum however. Calcific atherosclerotic changes are seen related to the thoracic aorta. Significant lymphadenopathy at the right pectoralis/axillary region identified. PLEURA: Zqfv-ka-[id number] right and minimal left pleural effusions are identified. Mild pericardial effusion also noted. BONES: No fracture. No destructive lesion. UPPER ABDOMEN: Grossly unremarkable. OTHER FINDINGS: Gross thickening of the anterior right breast skin is appreciated with prominent soft tissue within the right breast far greater than identified at the left suspicious for possible Paget's disease or inflammatory carcinoma. Clinically correlate further. IMPRESSION: 1. [id number]-lg-[id number] right and minimal left pleural effusions are identified with a compressive atelectasis affecting the right greater than left lower lobes. No definitive pulmonary mass is appreciated in this unenhanced CT exam there are numerous shotty lymph node identified scattered throughout the mediastinum. 2. Mild pericardial effusion. Cardiomegaly noted with pulmonary vascular congestion. 3. Suspicious right breast changes chest of of Paget's disease or possible inflammatory carcinoma though infectious etiologies are possible as well. Further clinical correlation recommended. Lymphadenopathy in the right pectoralis/axilla region incidentally noted as well. 1430 Labs show BNP of 33,000. Lasix was initially ordered but not given due to systolic BP of 100. Will start BiPAP. Pt anemic and will be given transfusion with consent signed. Will admit to service and spoke with Dr. Feliz. Again discussed the cancer diagnosis with the patient who expressed understanding that she has advanced cancer. 1451 CXR FINDINGS: LUNGS: Pulmonary vascular congestion identified. No discrete infiltrates. PLEURA: Incompletely visualized bilateral pleural effusions right larger than left. CARDIOVASCULAR: No atherosclerotic calcification present Cardiomegaly. OSSEOUS STRUCTURES: No significant abnormalities. VISUALIZED UPPER ABDOMEN: Normal. OTHER FINDINGS: None. IMPRESSION: Mild pulmonary vascular congestion and cardiomegaly. Scribe Attestation: Documented by Dominique Kay, acting as a scribe for Mariaa Golden MD. Provider Scribe Attestation: All medical record entries made by the Scribe were at my direction and personally dictated by me. I have reviewed the chart and agree that the record accurately reflects my personal performance of the history, physical exam, medical decision making, and the department course for this patient. I have also personally directed, reviewed, and agree with the discharge instructions and disposition. Disposition - Clinical Impression Clinical Impression: Congestive heart failure (CHF), Anemia, Pericardial effusion, Metastatic cancer to axillary lymph nodes - Patient ED Disposition Is Patient to be Admitted: Yes - Disposition Disposition Time: 14:40 Condition: GUARDED
--- NOTE | 2018-08-04 14:29 | CT ---
Date of service: 08/04/2018 PROCEDURE: CT Chest without contrast HISTORY: SOB COMPARISON: Frontal chest radiograph 08/04/2018. TECHNIQUE: Contiguous axial images were obtained through the chest without intravenous contrast enhancement. Sagittal and coronal reconstructions were performed. Radiation dose: Total exam DLP = 396.05 mGy-cm. This CT exam was performed using one or more of the following dose reduction techniques: Automated exposure control, adjustment of the mA and/or kV according to patient size, and/or use of iterative reconstruction technique. FINDINGS: LUNGS: Central airways appear grossly clear. Compressive atelectasis is appreciated related to the right greater than left lower lobes. Interlobular septal thickening is appreciated diffusely compatible with pulmonary edema related to CHF. Pulmonary vascular congestion is identified. MEDIASTINUM: Unremarkable thoracic aorta. No aneurysm. Cardiomegaly and mild pericardial effusion. Main pulmonary artery appears prominent up to 3.4 cm, borderline for pulmonary vascular congestion. Clinically correlate nevertheless. Numerous shotty mediastinal nodes are identified. Lack images contrast limits evaluation of mediastinum however. Calcific atherosclerotic changes are seen related to the thoracic aorta. Significant lymphadenopathy at the right pectoralis/axillary region identified. PLEURA: Cusy-tm-kknysbqw right and minimal left pleural effusions are identified. Mild pericardial effusion also noted. BONES: No fracture. No destructive lesion. UPPER ABDOMEN: Grossly unremarkable. OTHER FINDINGS: Gross thickening of the anterior right breast skin is appreciated with prominent soft tissue within the right breast far greater than identified at the left suspicious for possible Paget's disease or inflammatory carcinoma. Clinically correlate further. IMPRESSION: 1. Xapv-ld-[id number] right and minimal left pleural effusions are identified with a compressive atelectasis affecting the right greater than left lower lobes. No definitive pulmonary mass is appreciated in this unenhanced CT exam there are numerous shotty lymph node identified scattered throughout the mediastinum. 2. Mild pericardial effusion. Cardiomegaly noted with pulmonary vascular congestion. 3. Suspicious right breast changes chest of of Paget's disease or possible inflammatory carcinoma though infectious etiologies are possible as well. Further clinical correlation recommended. Lymphadenopathy in the right pectoralis/axilla region incidentally noted as well.
--- NOTE | 2018-08-04 14:54 | RAD ---
Date of service: 08/04/2018 HISTORY: possible admission COMPARISON: 05/29/2018 single-view chest. Macro today's CT thorax FINDINGS: LUNGS: Pulmonary vascular congestion identified. No discrete infiltrates. PLEURA: Incompletely visualized bilateral pleural effusions right larger than left. CARDIOVASCULAR: No atherosclerotic calcification present Cardiomegaly. OSSEOUS STRUCTURES: No significant abnormalities. VISUALIZED UPPER ABDOMEN: Normal. OTHER FINDINGS: None. IMPRESSION: Mild pulmonary vascular congestion and cardiomegaly.
--- NOTE | 2018-08-04 20:36 | CARD ---
APPROVED REPORT Date of service: 08/04/2018 EKG Measurement Heart [id number] <Conclusion> Sinus tachycardia Septal infarct, age undetermined ST & T wave abnormality, consider lateral ischemia Abnormal ECG
[2018-08-04] MEDS: Piperacillin/Tazobact 3.375 GM in Sodium Chloride 0.9% 100 ML IVPB SCH (21:18)
[2018-08-04] MEDS ORDERED: Sod Polystyrene Sulf 15 gm/60 ml Susp PO ONE (22:46)
[2018-08-05 03:52] LABS: SQUAMOUS EPITHIAL 1 /hpf (0-5); URINE BILIRUBIN NEGATIVE (NEGATIVE); URINE BLOOD NEGATIVE (NEGATIVE); URINE CLARITY CLOUDY (Clear); URINE COLOR YELLOW (YELLOW); URINE GLUCOSE (UA) NEG (NEGATIVE); URINE LEUKOCYTE ESTERASE NEG Leu/uL (Negative); URINE PROTEIN NEGATIVE (NEGATIVE); URINE UROBILINOGEN 0.2-1.0 mg/dL (0.2-1.0)
[2018-08-05] MEDS: Piperacillin/Tazobact 3.375 GM in Sodium Chloride 0.9% 100 ML IVPB SCH ×4 (03:59→22:00)
[2018-08-05 06:13] LABS: INR 1.4
[2018-08-05 06:14] LABS: T4 5.36 ug/dl (5.5-11.0)
[2018-08-05 06:16] LABS: PARTIAL THROMBOPLASTIN TIME 42.5 Seconds (25.6-37.1)
[2018-08-05 06:28] LABS: T3 0.683 nmol/L (1.49-2.60)
[2018-08-05 06:35] LABS: ALB/GLOB RATIO 0.8 (1.0-2.1); ALBUMIN 2.8 g/dL (3.5-5.0); CALCIUM 8.2 mg/dL (8.4-10.2); TROPONIN I 1.22 ng/mL (0.00-0.120)
[2018-08-05 08:12] LABS: MEAN CELL VOLUME 74.2 fl (81.0-99.0); MEAN CORPUSCULAR HEMOGLOBIN 23.3 pg (27.0-31.0); MEAN CORPUSCULAR HGB CONC 31.4 g/dL (33.0-37.0); RBC 4.28 Mil/uL (3.80-5.20); RED CELL DISTRIBUTION WIDTH 19.3 % (11.5-14.5)
[2018-08-05] MEDS: Multivitamin With Minerals Tab PO SCH (10:33)
--- NOTE | 2018-08-05 14:43 | CP.PCM.CON ---
History of Present Illness - History of Present Illness History of Present Illness: ASKED TO SEE PT BY DR THOMAS 58 YO FEMALE PRESENTS WITH CHEST PRESSURE, SOB AND HEMOPTYSIS. HER CP IS SUBSTERNAL, OCCURRING BOTH AT REST AND WITH EXERTION. CP IS NONRADIATING, MILD IN NATURE, ASSOCIATED WITH COUGH, ORTHOPNEA, PALP AND MILD MARTIN. NO DIZZINESS OR LH. NO EXAC OR ALLEVIATING FACTORS. HAS BEEN OCCURING FOR ABOUT 1 WEEK. PT HAS METASTATIC CA AND A RECENTLY DIAGNOSED PERICARDIAL EFFUSION. ALSO HAS PLEURAL EFFUSIONS ON CT. Review of Systems - Constitutional Constitutional: As Per HPI. absent: Anorexia, Chills, Daytime Sleepiness, Excessive Sweating, Fatigue, Fever, Frequent Falls, Headache, Increased Appetite, Lethargy, Malaise, Night Sweats, Snoring, Sleep Apnea, Weight Gain, Weight Loss, Weakness, Other - EENT Eyes: As Per HPI. absent: Blind Spots, Blurred Vision, Change in Vision, Decreased Night Vision, Diplopia, Discharge, Dry Eye, Exophthalmos, Floaters, Irritation, Itchy Eyes, Loss of Peripheral Vision, Pain, Photophobia, Requires Corrective Lenses, Sees Flashes, Spots in Vision, Tunnel Vision, Other Visual Disturbances, Loss of Vision, Other Ears: As Per HPI. absent: Decreased Hearing, Ear Discharge, Ear Pain, Tinnitus, Abnormal Hearing, Disequilibrium, Dizziness, Other Nose/Mouth/Throat: As Per HPI. absent: Epistaxis, Nasal Congestion, Nasal Discharge, Nasal Obstruction, Nasal Trauma, Nose Pain, Post Nasal Drip, Sinus Pain, Sinus Pressure, Bleeding Gums, Change in Voice, Dental Pain, Dry Mouth, Dysphagia, Halitosis, Hoarsness, Lip Swelling, Mouth Lesions, Mouth Pain, Odynophagia, Sore Throat, Throat Swelling, Tongue Swelling, Facial Pain, Neck Pain, Neck Mass, Other - Breasts Breasts: As Per HPI, Mass, Pain, Skin Changes. absent: Change in Shape, Nipple Discharge, Nipple Inversion, Swelling, Other - Cardiovascular Cardiovascular: As Per HPI, Chest Pain, Chest Pain at Rest, Chest Pain with Activity, Dyspnea, Edema, Orthopnea, Palpitations. absent: Acrocyanosis, Claudication, Diaphoresis, Dyspnea on Exertion, Irregular Heart Rhythm, Pain Radiating to Arm/Neck/Jaw, Leg Edema, Leg Ulcers, Lightheadedness, Paroxysmal Nocturnal Dyspnea, Pedal Edema, Radiating Pain, Rapid Heart Rate, Slow Heart Rate, Syncope, Other - Respiratory Respiratory: As Per HPI, Cough, Hemoptysis. absent: Dyspnea, Dyspnea on Exertion, Wheezing, Snoring, Stridor, Pain on Inspiration, Chest Congestion, Excessive Mucous Production, Change in Mucous Color, Pain with Coughing, Other - Gastrointestinal Gastrointestinal: As Per HPI. absent: Abdominal Pain, Belching, Bloating, Change in Bowel Habits, Change in Stool Character, Coffee Ground Emesis, Constipation, Cramping, Diarrhea, Dyspepsia, Dysphagia, Early Satiety, Excessive Flatus, Fecal Incontinence, Heartburn, Hematemesis, Hematochezia, Loose Stools, Melena, Nausea, Odynophagia, Temesmus, Vomiting, Other - Genitourinary Genitourinary: As Per HPI. absent: Change in Urinary Stream, Difficulty Urinating, Dysuria, Flank Pain, Hematuria, Pyuria, Nocturia, Urinary Incontinence, Urinary Frequency, Urinary Hesitance, Urinary Urgency, Voiding Freq/Small Amts, Freq UTI, Hx Renal/Bladder Calculi, Hx /Renal Surgery, Bladder Distension, Other - Reproductive: Female Reproductive:Female: As Per HPI. absent: Amenorrhea, Amenorrhea/ Control, Currently Menstual, Cycle <21 Days, Cycle >35 Days, Cycle Variable, Menses 1-7 Days, Menses >/= 8 Days, Menses Variable, Cycle > 4 Weeks Between, No Menses for 6 Months, Heavy Menses, Light Menses, Normal Menses, Spotting Between Cycles, S/P Hysterectomy, Menopausal, Post Menopausal, Premenarche, Abnormal Vaginal Bleeding, Dysmenorrhea, Dyspareunia, Genital Lesions, Genital Pruritis, Pelvic Pain, Prolapse Symptoms, Sexual Dysfunction, Vaginal Discharge, Vaginal Dryness, Vaginal Odor, Vaginal Pruritis, Other - Menstruation Menstruation: As Per HPI. absent: Amenorrhea, Amenorrhea/ Control, Currently Menstual, Cycle <21 Days, Cycle >35 Days, Cycle Variable, Menses 1-7 Days, Menses >/= 8 Days, Menses Variable, Cycle > 4 Weeks Between, No Menses for 6 Months, Heavy Menses, Light Menses, Normal Menses, Spotting Between Cycles, S/P Hysterectomy, Menopausal, Post Menopausal, Premenarche, Abnormal Vaginal Bleeding, Dysmenorrhea, Other - Musculoskeletal Musculoskeletal: As Per HPI. absent: Abnormal Gait, Arthralgias, Atrophy, Back Pain, Deformity, Joint Swelling, Limited Range of Motion, Loss of Height, Muscle Cramps, Muscle Weakness, Myalgias, Neck Pain, Numbness, Radiating Pain into Limb, Stiffness, Tingling, Other - Integumentary Integumentary: As Per HPI. absent: Acne, Alopecia, Bleeding Lesions, Change in Hair, Change in Nails, Change in Pigmentation, Changing Lesions, Dry Skin, Erythema, Furuncle, Hirsutism, Lesions, New Lesions, Non-Healing Lesions, Photosensitivity, Pruritus, Rash, Skin Pain, Skin Ulcer, Sores, Striae, Swelling, Unusual Bruising, Wounds, Jaundice, Other - Neurological Neurological: As Per HPI. absent: Abnormal Gait, Abnormal Hearing, Abnormal Movements, Abnormal Speech, Behavioral Changes, Burning Sensations, Confusion, Convulsions, Disequilibrium, Dizziness, Numbness, Focal Weakness, Frequent Falls, Headaches, Lack of Coordination, Loss of Vision, Memory Loss, Paresthesias, Radicular Pain, Restless Legs, Sensory Deficit, Syncope, Tingling, Tremor, Vertigo, Weakness, Other Visual Disturbances, Other - Psychiatric Psychiatric: As Per HPI. absent: Abnormal Sleep Pattern, Anhedonia, Anxiety, Auditory Hallucinations, Behavioral Changes, Change in Appetite, Change in Libido, Confusion, Depression, Difficulty Concentrating, Hallucinations, Homicidal Ideation, Hopelessness, Irritability, Memory Loss, Mood Swings, Panic Attacks, Paranoia, Suicidal Ideation, Visual Hallucinations, Tactile Hallucinations, Other - Endocrine Endocrine: As Per HPI. absent: Change in Body Appearance, Change in Libido, Cold Intolorance, Deepening of Voice, Excessive Sweating, Fatigue, Flushing, Heat Intolorance, Increase in Ring/Shoe/Hat Size, Palpitations, Polydipsia, Polyphagia, Polyuria, Other - Hematologic/Lymphatic Hematologic: As Per HPI. absent: Easy Bleeding, Easy Bruising, Lymphadenopathy, Other Past Patient History - Past Medical History & Family History Past Medical History?: Yes - Past Social History Smoking Status: Never Smoked Chewing Tobacco Use: No Cigar Use: No Alcohol: None Drugs: Denies Home Situation {Lives}: Alone Domestic Violence: Negative - CARDIAC Hx Cardiac Disorders: Yes Hx Heart Murmur: Yes (childhood) - PULMONARY Hx Respiratory Disorders: No - NEUROLOGICAL Hx Neurological Disorder: No - HEENT Hx HEENT Problems: No - RENAL Hx Chronic Kidney Disease: No - ENDOCRINE/METABOLIC Hx Endocrine Disorders: No - HEMATOLOGICAL/ONCOLOGICAL Hx Blood Disorders: Yes Hx AIDS: No Hx Anemia: Yes Hx Cancer: Yes (utreine and breast) Hx Human Immunodeficiency Virus (HIV): No - INTEGUMENTARY Hx Dermatological Problems: No - MUSCULOSKELETAL/RHEUMATOLOGICAL Hx Musculoskeletal Disorders: No Hx Arthritis: No Hx Falls: No - GASTROINTESTINAL Hx Gastrointestinal Disorders: No - GENITOURINARY/GYNECOLOGICAL Hx Genitourinary Disorders: No - PSYCHIATRIC Hx Psychophysiologic Disorder: Yes Hx Anxiety: Yes Hx Substance Use: No - SURGICAL HISTORY Hx Surgeries: Yes Hx Section: Yes Other/Comment: right breast bx - ANESTHESIA Hx Anesthesia: Yes Hx Malignant Hyperthermia: No Meds Allergies/Adverse Reactions: Allergies Allergy/AdvReac Type Severity Reaction Status Date / Time acetaminophen [From Tylenol] AdvReac Unknown SHORTNESS Verified 08/02/18 11:28 OF BREATH - Medications Medications: Current Medications Aspirin (Aspirin) 325 mg PO DAILY [facility] Ferrous Sulfate (Feosol) 325 mg PO DAILY [facility] Last Admin: 08/05/18 10:14 Dose: 325 mg Furosemide (Lasix) 40 mg IVP DAILY [facility] Last Admin: 08/05/18 12:55 Dose: Not Given Vancomycin HCl 1 gm/ Sodium (Chloride) 250 mls @ 166.667 mls/hr IVPB Q12 [facility]; Protocol Last Admin: 08/05/18 10:35 Dose: 166.667 mls/hr Piperacillin Sod/Tazobactam (Sod 3.375 gm/ Sodium Chloride) 100 mls @ 100 mls/hr IVPB Q6 [facility]; Protocol Last Admin: 08/05/18 10:34 Dose: 100 mls/hr Iron Sucrose 200 mg/ Sodium (Chloride) 110 mls @ 110 mls/hr IVPB DAILY [facility] Stop: 08/10/18 09:01 Last Admin: 08/05/18 10:35 Dose: 110 mls/hr Metoprolol Tartrate (Lopressor) 12.5 mg PO Q12 [facility] Multivitamins/Minerals (Therapeutic-M Tab) 1 tab PO DAILY [facility] Last Admin: 08/05/18 10:33 Dose: 1 tab Physical Exam - Constitutional Appears: In Acute Distress - Head Exam Head Exam: ATRAUMATIC, NORMAL INSPECTION, NORMOCEPHALIC - Eye Exam Eye Exam: EOMI, Normal appearance, PERRL. absent: Conjunctival injection, Nystagmus, Periorbital swelling, Periorbital tenderness, Scleral icterus Pupil Exam: NORMAL ACCOMODATION, PERRL. absent: Fixed, Irregular, Miosis, Mydriatic, Unequal - ENT Exam ENT Exam: Mucous Membranes Moist, Normal Exam. absent: Mucous Membranes Dry, Normal External Ear Exam, Normal Oropharynx, TM's Normal Bilaterally - Neck Exam Neck exam: Positive for: Normal Inspection. Negative for: Full Rom, Lymphadenopathy, Meningismus, Tenderness, Thyromegaly - Respiratory Exam Respiratory Exam: Accessory Muscle Use, Decreased Breath Sounds. absent: Chest Wall Tenderness, Clear to Auscultation Bilateral, Prolonged Expiratory Phase, Rales, Rhonchi, Wheezes, Respiratory Distress, Stridor, NORMAL BREATHING PATTERN - Cardiovascular Exam Cardiovascular Exam: Diastolic murmur, REGULAR RHYTHM, +S1, +S2, Systolic Murmur. absent: Bradycardia, Tachycardia, Clicks, Gallop, Irregular Rhythm, JVD, RRR, Rubs, +S4 - GI/Abdominal Exam GI & Abdominal Exam: Distended, Normal Bowel Sounds, Soft. absent: Bruit, Diminished Bowel Sounds, Firm, Guarding, Hernia, Hyperactive Bowel Sounds, Hypoactive Bowel Sounds, Mass, Organomegaly, Pulsatile Mass, Rebound, Rigid, Tenderness - Rectal Exam Rectal Exam: Deferred - Extremities Exam Extremities exam: Positive for: pedal edema, pedal pulses present. Negative for: calf tenderness, full ROM, joint swelling, normal capillary refill, normal inspection, tenderness - Back Exam Back exam: NORMAL INSPECTION. absent: CVA tenderness (L), CVA tenderness (R), FULL ROM, muscle spasm, paraspinal tenderness, rash noted, tenderness, vertebral tenderness - Neurological Exam Neurological exam: Alert, CN II-XII Intact, Normal Gait, Oriented x3, Reflexes Normal - Skin Skin Exam: Dry, Intact, Normal Color, Warm Additional comments: BREAST RIGHT FUNGATING MASS. Results - Vital Signs Recent Vital Signs: Last Vital Signs Temp 98.3 F 08/05/18 12:44 Pulse 107 H 08/05/18 12:44 Resp 18 08/05/18 12:44 BP 106/67 08/05/18 12:44 Pulse Ox 96 08/05/18 12:44 - Labs Result Diagrams: 08/07/18 04:30 08/07/18 04:30 Labs: Laboratory Results - last 24 hr 08/04/18 08/04/18 08/04/18 03:00 11:53 21:35 WBC RBC Hgb Hct MCV MCH MCHC RDW Plt Count PT INR APTT Sodium Potassium Chloride Carbon Dioxide Anion Gap BUN Creatinine Est GFR ( Amer) Est GFR (Non-Af Amer) Random Glucose Calcium Total Bilirubin AST ALT Alkaline Phosphatase Troponin I 1.3400 H* Total Protein Albumin Globulin Albumin/Globulin Ratio Triglycerides Cholesterol LDL Cholesterol Direct HDL Cholesterol Thyroxine (T4) Total T3 TSH 3rd Generation Urine Color Yellow Urine Clarity Cloudy Urine pH 5.0 Ur Specific [place] 1.010 Urine Protein Negative Urine Glucose (UA) Neg Urine Ketones Negative Urine Blood Negative Urine Nitrate Negative Urine Bilirubin Negative Urine Urobilinogen 0.2-1.0 Ur Leukocyte Esterase Neg Urine RBC (Auto) 5 H Urine Microscopic WBC 5 Ur Squamous Epith Cells 1 Blood Type A POSITIVE Antibody Screen Negative Crossmatch See Detail BBK History Checked Patient has bt 08/05/18 08/05/18 08/05/18 05:41 06:00 08:00 WBC 24.0 H RBC 4.28 Hgb 10.0 L D Hct 31.8 L MCV 74.2 L MCH 23.3 L MCHC 31.4 L RDW 19.3 H Plt Count 369 PT 16.0 H INR 1.4 APTT 42.5 H Sodium 135 Potassium 4.4 Chloride 99 Carbon Dioxide 28 Anion Gap 12 BUN 19 H Creatinine 1.2 Est GFR ( Amer) 55 Est GFR (Non-Af Amer) 46 Random Glucose 125 H Calcium 8.2 L Total Bilirubin 1.0 AST 31 ALT 24 Alkaline Phosphatase 126 Troponin I 1.2200 H* Total Protein 6.5 Albumin 2.8 L Globulin 3.7 Albumin/Globulin Ratio 0.8 L Triglycerides 153 H D Cholesterol 99 LDL Cholesterol Direct 60 HDL Cholesterol 20 L Thyroxine (T4) 5.36 L Total T3 0.683 L TSH 3rd Generation 3.05 Urine Color Urine Clarity Urine pH Ur Specific [place] Urine Protein Urine Glucose (UA) Urine Ketones Urine Blood Urine Nitrate Urine Bilirubin Urine Urobilinogen Ur Leukocyte Esterase Urine RBC (Auto) Urine Microscopic WBC Ur Squamous Epith Cells Blood Type Antibody Screen Crossmatch BBK History Checked - EKG Data EKG Interpreted by: Myself EKG shows normal: Sinus rhythm Rate: Normal Assessment & Plan (1) Troponin level elevated Status: Acute Priority: High Comment: NSTEMI VS PULM ETIOLOGY (2) Elevated brain natriuretic peptide (BNP) level Status: Acute Priority: High (3) Pericardial effusion Status: Acute Priority: Medium (4) Pleural effusion Status: Acute Priority: High (5) Leukocytosis Status: Acute Priority: High (6) Breast CA Status: Acute Priority: High (7) Hypothyroid Status: Acute - Assessment and Plan (Free Text) Plan: echo ordered (need jf) since bp is low would hold diuretics and await echo for eval of any tamponade physiology. monitor on tele. if bp drops would consider ivf boluses and upgrade to icu. given trop will start asa and very low dose bb's 45 MIN
--- NOTE | 2018-08-05 16:10 | US ---
Date of service: 08/05/2018 PROCEDURE: Duplex ultrasound of the carotid and vertebral arteries. HISTORY: Dizziness COMPARISON: None available. TECHNIQUE: Grayscale and duplex Doppler evaluation of the cervical carotid and vertebral arteries were performed. The common carotid, carotid bifurcations and cervical ICA and proximal ECA were evaluated. The vertebral arteries were evaluated for gross patency and direction. FINDINGS: RIGHT CAROTID ARTERIES: Common Carotid Artery: Normal. Maximal flow velocity of 44.1 cm/s. Carotid Bifurcation: Normal. Internal Carotid Artery:Normal. Maximal flow velocity of 61.9 cm/s. External Carotid Artery (proximal branches): Normal. Maximal flow velocity of 64.2 cm/s. ICA/CCA Ratio: 0.9 LEFT CAROTID ARTERIES: Common Carotid Artery: Normal. Maximal flow velocity of 54.6 cm/s. Carotid Bifurcation: Normal. Internal Carotid Artery:Normal. Maximal flow velocity of 72.0 cm/s. External Carotid Artery (proximal branches): Normal. Maximal flow velocity of 43.8 cm/s. ICA/CCA Ratio: 0.7 VERTEBRAL ARTERIES: Right Vertebral Artery: Patent. Antegrade flow. Left Vertebral Artery: Patent. Antegrade flow. OTHER FINDINGS: Prominent segmental ectasis of the common and internal carotid arteries are identified. IMPRESSION: No significant stenosis in the cervical carotid artery systems bilaterally. Antegrade blood flow identified in the bilateral vertebral arteries.
--- NOTE | 2018-08-05 16:41 | CP.PCM.PN ---
Objective - Vital Signs/Intake and Output Vital Signs (last 24 hours): Temp Pulse Resp BP Pulse Ox 98.0 F 100 H 20 116/70 98 08/05/18 15:37 08/05/18 15:37 08/05/18 15:37 08/05/18 15:37 08/05/18 15:37 Intake and Output: 08/05/18 08/05/18 06:59 18:59 Intake Total 690 Balance 690 - Medications Medications: Current Medications Aspirin (Aspirin) 325 mg PO DAILY [facility] Ferrous Sulfate (Feosol) 325 mg PO DAILY [facility] Last Admin: 08/05/18 10:14 Dose: 325 mg Vancomycin HCl 1 gm/ Sodium (Chloride) 250 mls @ 166.667 mls/hr IVPB Q12 [facility]; Protocol Last Admin: 08/05/18 10:35 Dose: 166.667 mls/hr Piperacillin Sod/Tazobactam (Sod 3.375 gm/ Sodium Chloride) 100 mls @ 100 mls/hr IVPB Q6 [facility]; Protocol Last Admin: 08/05/18 10:34 Dose: 100 mls/hr Iron Sucrose 200 mg/ Sodium (Chloride) 110 mls @ 110 mls/hr IVPB DAILY [facility] Stop: 08/10/18 09:01 Last Admin: 08/05/18 10:35 Dose: 110 mls/hr Metoprolol Tartrate (Lopressor) 12.5 mg PO Q12 [facility] Multivitamins/Minerals (Therapeutic-M Tab) 1 tab PO DAILY [facility] Last Admin: 08/05/18 10:33 Dose: 1 tab - Labs Labs: 08/05/18 08:00 08/05/18 05:41 PT 16.0 Seconds (9.8-13.1) H 08/05/18 06:00 INR 1.4 08/05/18 06:00 APTT 42.5 Seconds (25.6-37.1) H 08/05/18 06:00
--- NOTE | 2018-08-05 16:42 | CP.PCM.HP ---
History of Present Illness - History of Present Illness History of Present Illness: CC: Weakness. 58 y/o F, PMH: Heart murmur as childhood,anemia, recently Dx with R Breast CA ( Bx ), Pelvic mass, came to [facility] [place] to be evaluated for increased weakness, onset 2 days [employer] after recent pelvic mass Bx on 08/02/18 (awaiting Bx result), associated to dizziness, tachycardia,SOB, fatigue with no relief. Pt is not taking any chronic medications. Worsening symptoms: Progressive fatigue, SOB. POA: WBC 20.1 Hgb 7.2 [place] [id number] Aggravated factor: Walking/exercise. Pt denied: Fever, chills, n/v/d, abdominal pain, urinary symptoms, CP, syncope, cough, sick contact, recent travel out of [facility]. EKG: Sinus tachycardia, septal infarct, age undetermined. CXR: Mild pulmonary vascular congestion, Cardiomegaly. CT Chest: R pleural effusion, no pulmonary mass, scattered lymph node identifie d throughout the mediastinum, mild pericardial effusion. Cardiomegaly. Present on Admission - Present on Admission Any Indicators Present on Admission: No Review of Systems - Constitutional Constitutional: Fatigue, Weakness - EENT Eyes: Other (negative) Ears: Other (negative) Nose/Mouth/Throat: Other (negative) - Breasts Breasts: Mass Additional comments: R Breast - Cardiovascular Cardiovascular: Pedal Edema, Rapid Heart Rate - Respiratory Respiratory: Dyspnea, Chest Congestion - Gastrointestinal Gastrointestinal: As Per HPI, Abdominal Pain, Other (Mass) Additional comments: umbolical - Genitourinary Genitourinary: Other (negative) - Musculoskeletal Musculoskeletal: Other (negative) - Integumentary Integumentary: Other (negative) - Neurological Neurological: Dizziness, Weakness - Psychiatric Psychiatric: Anxiety - Endocrine Endocrine: Other (negative) - Hematologic/Lymphatic Hematologic: As Per HPI Past Patient History - Past Medical History & Family History Past Medical History?: Yes Pertinent Family History: Unknown - Past Social History Smoking Status: Never Smoked Alcohol: None Drugs: Denies Home Situation {Lives}: With Family - CARDIAC Hx Cardiac Disorders: Yes Hx Heart Murmur: Yes (childhood) - PULMONARY Hx Respiratory Disorders: No - NEUROLOGICAL Hx Neurological Disorder: No - HEENT Hx HEENT Problems: No - RENAL Hx Chronic Kidney Disease: No - ENDOCRINE/METABOLIC Hx Endocrine Disorders: No - HEMATOLOGICAL/ONCOLOGICAL Hx Blood Disorders: Yes Hx AIDS: No Hx Anemia: Yes Hx Cancer: Yes (utreine and breast) Hx Human Immunodeficiency Virus (HIV): No - INTEGUMENTARY Hx Dermatological Problems: No - MUSCULOSKELETAL/RHEUMATOLOGICAL Hx Musculoskeletal Disorders: No Hx Arthritis: No Hx Falls: No - GASTROINTESTINAL Hx Gastrointestinal Disorders: No - GENITOURINARY/GYNECOLOGICAL Hx Genitourinary Disorders: No - PSYCHIATRIC Hx Psychophysiologic Disorder: Yes Hx Anxiety: Yes Hx Substance Use: No - SURGICAL HISTORY Hx Surgeries: Yes Hx Section: Yes Other/Comment: right breast bx - ANESTHESIA Hx Anesthesia: Yes Hx Malignant Hyperthermia: No Meds Allergies/Adverse Reactions: Allergies Allergy/AdvReac Type Severity Reaction Status Date / Time acetaminophen [From Tylenol] AdvReac Unknown SHORTNESS Verified 08/02/18 11:28 OF BREATH Physical Exam - Constitutional Appears: Chronically Ill - Head Exam Head Exam: NORMAL INSPECTION - Eye Exam Eye Exam: EOMI, PERRL - ENT Exam ENT Exam: Normal Exam - Neck Exam Neck exam: Positive for: Normal Inspection - Respiratory Exam Respiratory Exam: Decreased Breath Sounds (at bases) Additional comments: Chest: R Breast multiple masses with tenderness - Cardiovascular Exam Cardiovascular Exam: Tachycardia, Systolic Murmur (1/6 LSB) - GI/Abdominal Exam GI & Abdominal Exam: Distended, Mass (fungating mass umbilical area), Normal Bowel Sounds, Soft, Tenderness (umbilical area, L>R LQ) - Extremities Exam Additional comments: Ankles and feet edema. - Back Exam Back exam: NORMAL INSPECTION - Neurological Exam Neurological exam: Alert, Oriented x3 Additional comments: No motor/sensory deficit, generalized weakness. - Psychiatric Exam Psychiatric exam: Anxious - Skin Skin Exam: Pallor, Warm - Additional Findings Additional findings: R breast tenderness with multiple round masses of different sizes Results - Vital Signs Recent Vital Signs: Last Vital Signs Temp 98.0 F 08/05/18 15:37 Pulse 100 H 08/05/18 15:37 Resp 20 08/05/18 15:37 BP 116/70 08/05/18 15:37 Pulse Ox 98 08/05/18 15:37 reviewed Татьяна - Labs Result Diagrams: 08/07/18 04:30 08/07/18 04:30 Labs: Laboratory Results - last 24 hr 08/04/18 08/04/18 08/04/18 03:00 11:53 21:35 WBC RBC Hgb Hct MCV MCH MCHC RDW Plt Count PT INR APTT Sodium Potassium Chloride Carbon Dioxide Anion Gap BUN Creatinine Est GFR ( Amer) Est GFR (Non-Af Amer) Random Glucose Calcium Total Bilirubin AST ALT Alkaline Phosphatase Troponin I 1.3400 H* Total Protein Albumin Globulin Albumin/Globulin Ratio Triglycerides Cholesterol LDL Cholesterol Direct HDL Cholesterol Thyroxine (T4) Total T3 TSH 3rd Generation Urine Color Yellow Urine Clarity Cloudy Urine pH 5.0 Ur Specific [place] 1.010 Urine Protein Negative Urine Glucose (UA) Neg Urine Ketones Negative Urine Blood Negative Urine Nitrate Negative Urine Bilirubin Negative Urine Urobilinogen 0.2-1.0 Ur Leukocyte Esterase Neg Urine RBC (Auto) 5 H Urine Microscopic WBC 5 Ur Squamous Epith Cells 1 Blood Type A POSITIVE Antibody Screen Negative Crossmatch See Detail BBK History Checked Patient has bt 08/05/18 08/05/18 08/05/18 05:41 06:00 08:00 WBC 24.0 H RBC 4.28 Hgb 10.0 L D Hct 31.8 L MCV 74.2 L MCH 23.3 L MCHC 31.4 L RDW 19.3 H Plt Count 369 PT 16.0 H INR 1.4 APTT 42.5 H Sodium 135 Potassium 4.4 Chloride 99 Carbon Dioxide 28 Anion Gap 12 BUN 19 H Creatinine 1.2 Est GFR ( Amer) 55 Est GFR (Non-Af Amer) 46 Random Glucose 125 H Calcium 8.2 L Total Bilirubin 1.0 AST 31 ALT 24 Alkaline Phosphatase 126 Troponin I 1.2200 H* Total Protein 6.5 Albumin 2.8 L Globulin 3.7 Albumin/Globulin Ratio 0.8 L Triglycerides 153 H D Cholesterol 99 LDL Cholesterol Direct 60 HDL Cholesterol 20 L Thyroxine (T4) 5.36 L Total T3 0.683 L TSH 3rd Generation 3.05 Urine Color Urine Clarity Urine pH Ur Specific [place] Urine Protein Urine Glucose (UA) Urine Ketones Urine Blood Urine Nitrate Urine Bilirubin Urine Urobilinogen Ur Leukocyte Esterase Urine RBC (Auto) Urine Microscopic WBC Ur Squamous Epith Cells Blood Type Antibody Screen Crossmatch BBK History Checked reviewed J.P. - EKG Data EKG comments: reviewed J.P. - Imaging and Cardiology Chest x-ray Status: Report reviewed by me (SallyP.) Assessment & Plan (1) Generalized weakness Status: Acute Priority: High (2) Anemia Status: Acute Priority: High (3) Pelvic mass Status: Acute Priority: High (4) Breast CA Status: Acute Priority: High (5) Troponin level elevated Status: Acute Priority: High (6) Elevated brain natriuretic peptide (BNP) level Status: Acute Priority: High (7) Pleural effusion Status: Acute Priority: High (8) Leukocytosis Status: Acute Priority: High (9) Pericardial effusion Status: Acute Priority: Medium - Assessment and Plan (Free Text) Plan: F/U Carotid U-S, Continue Zosyn, Vanco, Iron sucrose, Metoprolol and rest of Tx, PT/OT eval,f/u ECHO, Cardiology and hematology consult. - Date & Time Date: 08/05/18 Time: 13:30
--- NOTE | 2018-08-05 22:27 | CP.PCM.CON ---
History of Present Illness - History of Present Illness History of Present Illness: 58 year old female with a history of inflammatory breast cancer (ER +, [place] -, HER2 -) dx 05/2018 and untreated, pelvic mass s/p percutaneous biopsy (awaiting pathology), presenting with weakness and palpitations. The patient was follow ing with Dr. Daniel who planned to start her on treatment pending staging imaging and biopsy of her pelvic mass. The patient notes to progressive fatigue and weakness. She is hopeful she can start cancer treatment soon as she is worried about her progressive fatigue. Past medical history: Breast cancer, pelvic mass Past surgical history: Family history: Denies hematologic and oncologic problems Social history: Denies tobacco, alcohol, and illicit drug use. Allergies: Acetaminophen Review of systems: All remaining review of systems including HEENT, cardiovascular, respiratory, gastrointestinal, genitourinary, musculoskeletal, dermatologic, neurologic, and psychiatric are negative unless mentioned in the HPI. Past Patient History - Past Medical History & Family History Past Medical History?: Yes - Past Social History Smoking Status: Never Smoked - CARDIAC Hx Cardiac Disorders: Yes Hx Heart Murmur: Yes (childhood) - PULMONARY Hx Respiratory Disorders: No - NEUROLOGICAL Hx Neurological Disorder: No - HEENT Hx HEENT Problems: No - RENAL Hx Chronic Kidney Disease: No - ENDOCRINE/METABOLIC Hx Endocrine Disorders: No - HEMATOLOGICAL/ONCOLOGICAL Hx Blood Disorders: Yes Hx AIDS: No Hx Anemia: Yes Hx Cancer: Yes (utreine and breast) Hx Human Immunodeficiency Virus (HIV): No - INTEGUMENTARY Hx Dermatological Problems: No - MUSCULOSKELETAL/RHEUMATOLOGICAL Hx Musculoskeletal Disorders: No Hx Arthritis: No Hx Falls: No - GASTROINTESTINAL Hx Gastrointestinal Disorders: No - GENITOURINARY/GYNECOLOGICAL Hx Genitourinary Disorders: No - PSYCHIATRIC Hx Psychophysiologic Disorder: Yes Hx Anxiety: Yes Hx Substance Use: No - SURGICAL HISTORY Hx Surgeries: Yes Hx Section: Yes Other/Comment: right breast bx - ANESTHESIA Hx Anesthesia: Yes Hx Malignant Hyperthermia: No Meds Allergies/Adverse Reactions: Allergies Allergy/AdvReac Type Severity Reaction Status Date / Time acetaminophen [From Tylenol] AdvReac Unknown SHORTNESS Verified 08/02/18 11:28 OF BREATH - Medications Medications: Current Medications Ferrous Sulfate (Feosol) 325 mg PO DAILY [facility] Last Admin: 08/05/18 10:14 Dose: 325 mg Furosemide (Lasix) 10 mg IVP DAILY [facility] Vancomycin HCl 1 gm/ Sodium (Chloride) 250 mls @ 166.667 mls/hr IVPB Q12 [facility]; Protocol Last Admin: 08/05/18 20:30 Dose: 166.667 mls/hr Piperacillin Sod/Tazobactam (Sod 3.375 gm/ Sodium Chloride) 100 mls @ 100 mls/hr IVPB Q6 [facility]; Protocol Last Admin: 08/05/18 22:00 Dose: 100 mls/hr Iron Sucrose 200 mg/ Sodium (Chloride) 110 mls @ 110 mls/hr IVPB DAILY [facility] Stop: 08/10/18 09:01 Last Admin: 08/05/18 10:35 Dose: 110 mls/hr Metoprolol Tartrate (Lopressor) 12.5 mg PO Q12 [facility] Last Admin: 08/05/18 20:39 Dose: 12.5 mg Multivitamins/Minerals (Therapeutic-M Tab) 1 tab PO DAILY [facility] Last Admin: 08/05/18 10:33 Dose: 1 tab Physical Exam - Head Exam Head Exam: ATRAUMATIC - Eye Exam Eye Exam: Normal appearance - ENT Exam ENT Exam: Mucous Membranes Dry - Respiratory Exam Respiratory Exam: NORMAL BREATHING PATTERN - Cardiovascular Exam Cardiovascular Exam: +S1, +S2 - GI/Abdominal Exam GI & Abdominal Exam: Normal Bowel Sounds - Extremities Exam Extremities exam: Positive for: normal inspection - Neurological Exam Neurological exam: Oriented x3 - Psychiatric Exam Psychiatric exam: Normal Affect, Normal Mood - Skin Skin Exam: Warm Results - Vital Signs Recent Vital Signs: Last Vital Signs Temp 98.0 F 08/05/18 20:06 Pulse 116 H 08/05/18 20:39 Resp 20 08/05/18 20:06 BP 101/65 08/05/18 20:39 Pulse Ox 97 08/05/18 20:06 - Labs Result Diagrams: 08/05/18 08:00 08/05/18 05:41 Labs: Laboratory Results - last 24 hr 08/04/18 08/04/18 08/04/18 03:00 11:53 21:35 WBC RBC Hgb Hct MCV MCH MCHC RDW Plt Count PT INR APTT Sodium Potassium Chloride Carbon Dioxide Anion Gap BUN Creatinine Est GFR ( Amer) Est GFR (Non-Af Amer) Random Glucose Calcium Total Bilirubin AST ALT Alkaline Phosphatase Troponin I 1.3400 H* Total Protein Albumin Globulin Albumin/Globulin Ratio Triglycerides Cholesterol LDL Cholesterol Direct HDL Cholesterol Thyroxine (T4) Total T3 TSH 3rd Generation Urine Color Yellow Urine Clarity Cloudy Urine pH 5.0 Ur Specific [place] 1.010 Urine Protein Negative Urine Glucose (UA) Neg Urine Ketones Negative Urine Blood Negative Urine Nitrate Negative Urine Bilirubin Negative Urine Urobilinogen 0.2-1.0 Ur Leukocyte Esterase Neg Urine RBC (Auto) 5 H Urine Microscopic WBC 5 Ur Squamous Epith Cells 1 Blood Type A POSITIVE Antibody Screen Negative Crossmatch See Detail BBK History Checked Patient has bt 08/05/18 08/05/18 08/05/18 05:41 06:00 08:00 WBC 24.0 H RBC 4.28 Hgb 10.0 L D Hct 31.8 L MCV 74.2 L MCH 23.3 L MCHC 31.4 L RDW 19.3 H Plt Count 369 PT 16.0 H INR 1.4 APTT 42.5 H Sodium 135 Potassium 4.4 Chloride 99 Carbon Dioxide 28 Anion Gap 12 BUN 19 H Creatinine 1.2 Est GFR ( Amer) 55 Est GFR (Non-Af Amer) 46 Random Glucose 125 H Calcium 8.2 L Total Bilirubin 1.0 AST 31 ALT 24 Alkaline Phosphatase 126 Troponin I 1.2200 H* Total Protein 6.5 Albumin 2.8 L Globulin 3.7 Albumin/Globulin Ratio 0.8 L Triglycerides 153 H D Cholesterol 99 LDL Cholesterol Direct 60 HDL Cholesterol 20 L Thyroxine (T4) 5.36 L Total T3 0.683 L TSH 3rd Generation 3.05 Urine Color Urine Clarity Urine pH Ur Specific [place] Urine Protein Urine Glucose (UA) Urine Ketones Urine Blood Urine Nitrate Urine Bilirubin Urine Urobilinogen Ur Leukocyte Esterase Urine RBC (Auto) Urine Microscopic WBC Ur Squamous Epith Cells Blood Type Antibody Screen Crossmatch BBK History Checked Assessment & Plan (1) Breast CA Assessment and Plan: appears to have inflammatory breast cancer lymphadenopathy, pleural and pericardial effusions noted lymphadenopathy likely from breast cancer metastasis, unclear if effusions are malignant can have outpatient PET CT with Dr. Daniel Status: Acute (2) Pelvic mass Assessment and Plan: s/p percutaneous biopsy f/u pathology with patients primary oncologist Dr. Daniel Status: Acute (3) Anemia Assessment and Plan: iron deficiency - pt notes breast mass has been bleeding intermittently will start on IV iron Status: Acute (4) Leukocytosis Assessment and Plan: on antibiotics Status: Acute (5) Coagulopathy Assessment and Plan: likely nutritional Thank you for this interesting consult. Status: Acute
[2018-08-06] MEDS: Piperacillin/Tazobact 3.375 GM in Sodium Chloride 0.9% 100 ML IVPB SCH ×4 (03:38→21:00)
[2018-08-06 08:14] LABS: TROPONIN I 0.859 ng/mL (0.00-0.120)
[2018-08-06 08:35] LABS: ALB/GLOB RATIO 0.7 (1.0-2.1); ALBUMIN 2.4 g/dL (3.5-5.0); CALCIUM 7.9 mg/dL (8.4-10.2)
[2018-08-06 08:42] LABS: BASO % 0.2 % (0.0-2.0); EOS # 0.2 K/uL (0.0-0.7); EOS % 0.8 % (0.0-4.0); HEMOGLOBIN 9.9 g/dL (12.0-16.0); LYMPH # 1.1 K/uL (1.0-4.3); LYMPH % 5.9 % (20.0-40.0); MEAN CORPUSCULAR HEMOGLOBIN 23.6 pg (27.0-31.0); MEAN CORPUSCULAR HGB CONC 31.5 g/dL (33.0-37.0); MEAN PLATELET VOLUME 8.2 fl (7.2-11.7); MONO # 1.1 K/uL (0.0-0.8); MONO % 6.2 % (0.0-10.0); NEUT # 15.8 K/uL (1.8-7.0); NEUT % 86.9 % (50.0-75.0); RBC 4.18 Mil/uL (3.80-5.20); RED CELL DISTRIBUTION WIDTH 19.1 % (11.5-14.5); WHITE BLOOD COUNT 18.2 K/uL (4.8-10.8)
[2018-08-06] MEDS: Multivitamin With Minerals Tab PO SCH (09:45)
[2018-08-06] MEDS: Potassium Chloride 20 mEq ER Tab PO SCH ×2 (14:56→17:34)
--- NOTE | 2018-08-06 17:03 | CP.PCM.PN ---
Subjective - Date & Time of Evaluation Date of Evaluation: 08/06/18 Time of Evaluation: 12:50 - Subjective Subjective: F/U Generalized weakness. no SOB, no C/P, pain R Breast and umbilical area Objective - Vital Signs/Intake and Output Vital Signs (last 24 hours): Temp Pulse Resp BP Pulse Ox 98.1 F 115 H 18 101/65 94 L 08/06/18 16:11 08/06/18 16:11 08/06/18 16:11 08/06/18 16:11 08/06/18 16:11 - Medications Medications: Current Medications Ferrous Sulfate (Feosol) 325 mg PO DAILY [facility] Last Admin: 08/06/18 09:45 Dose: 325 mg Furosemide (Lasix) 10 mg IVP DAILY [facility] Last Admin: 08/06/18 09:52 Dose: 10 mg Vancomycin HCl 1 gm/ Sodium (Chloride) 250 mls @ 166.667 mls/hr IVPB Q12 [facility]; Protocol Last Admin: 08/06/18 09:54 Dose: 166.667 mls/hr Piperacillin Sod/Tazobactam (Sod 3.375 gm/ Sodium Chloride) 100 mls @ 100 mls/hr IVPB Q6 [facility]; Protocol Last Admin: 08/06/18 16:10 Dose: 100 mls/hr Iron Sucrose 200 mg/ Sodium (Chloride) 110 mls @ 110 mls/hr IVPB DAILY [facility] Stop: 08/10/18 09:01 Last Admin: 08/06/18 09:53 Dose: 110 mls/hr Metoprolol Tartrate (Lopressor) 12.5 mg PO Q12 [facility] Last Admin: 08/06/18 09:52 Dose: 12.5 mg Multivitamins/Minerals (Therapeutic-M Tab) 1 tab PO DAILY [facility] Last Admin: 08/06/18 09:45 Dose: 1 tab Potassium Chloride (K-Dur 20 Meq Er Tab) 20 meq PO BID [facility] Stop: 08/07/18 09:00 Last Admin: 08/06/18 14:56 Dose: 20 meq - Labs Labs: 08/06/18 06:15 08/06/18 06:15 PT 16.0 Seconds (9.8-13.1) H 08/05/18 06:00 INR 1.4 08/05/18 06:00 APTT 42.5 Seconds (25.6-37.1) H 08/05/18 06:00 - Constitutional Appears: Chronically Ill - Head Exam Head Exam: NORMAL INSPECTION - Eye Exam Eye Exam: PERRL - ENT Exam ENT Exam: Normal Exam - Neck Exam Neck Exam: Normal Inspection - Respiratory Exam Respiratory Exam: Decreased Breath Sounds (at bases) - Cardiovascular Exam Cardiovascular Exam: Tachycardia Additional comments: Chest : R Breast multiple masses with tenderness - GI/Abdominal Exam GI & Abdominal Exam: Distended (mild), Soft, Tenderness (umbilical area fungating mass, LLQ area of Bx) Additional comments: fungating mass umbilical area with tenderness - Extremities Exam Additional comments: legs, Ankles and feet edema - Back Exam Back Exam: NORMAL INSPECTION - Neurological Exam Neurological Exam: Alert, Oriented x3 Additional comments: No motor/sensory deficit, generalized weakness - Psychiatric Exam Psychiatric exam: Anxious - Skin Skin Exam: Pallor, Warm Assessment and Plan (1) Generalized weakness Status: Deleted (2) Anemia Status: Acute (3) Pelvic mass Status: Acute (4) Breast CA Status: Acute (5) Troponin level elevated Status: Acute (6) Elevated brain natriuretic peptide (BNP) level Status: Acute (7) Pleural effusion Status: Acute (8) Leukocytosis Status: Acute (9) Pericardial effusion Status: Acute - Assessment and Plan (Free Text) Plan: Hematology and Cardiology consult appreciated, f/u Bx Pelvic mass Bx report, Leukocytosis, Hypokalemia , continue Atx cooverage, K replacement
--- NOTE | 2018-08-06 21:39 | CP.PCM.PN ---
Subjective - Date & Time of Evaluation Date of Evaluation: 08/06/18 Time of Evaluation: 21:39 - Subjective Subjective: FEELS BETTER ON LOW DOSE LASIX. BP LOW Objective - Vital Signs/Intake and Output Vital Signs (last 24 hours): Temp Pulse Resp BP Pulse Ox 98.5 F 124 H 20 132/84 94 L 08/06/18 20:32 08/06/18 20:55 08/06/18 20:32 08/06/18 20:55 08/06/18 20:32 - Medications Medications: Current Medications Ferrous Sulfate (Feosol) 325 mg PO DAILY [facility] Last Admin: 08/06/18 09:45 Dose: 325 mg Furosemide (Lasix) 10 mg IVP DAILY [facility] Last Admin: 08/06/18 09:52 Dose: 10 mg Vancomycin HCl 1 gm/ Sodium (Chloride) 250 mls @ 166.667 mls/hr IVPB Q12 [facility]; Protocol Last Admin: 08/06/18 20:54 Dose: 166.667 mls/hr Piperacillin Sod/Tazobactam (Sod 3.375 gm/ Sodium Chloride) 100 mls @ 100 mls/hr IVPB Q6 [facility]; Protocol Last Admin: 08/06/18 21:00 Dose: 100 mls/hr Iron Sucrose 200 mg/ Sodium (Chloride) 110 mls @ 110 mls/hr IVPB DAILY [facility] Stop: 08/10/18 09:01 Last Admin: 08/06/18 09:53 Dose: 110 mls/hr Metoprolol Tartrate (Lopressor) 12.5 mg PO Q6 [facility] Multivitamins/Minerals (Therapeutic-M Tab) 1 tab PO DAILY [facility] Last Admin: 08/06/18 09:45 Dose: 1 tab - Labs Labs: 08/06/18 06:15 08/06/18 06:15 PT 16.0 Seconds (9.8-13.1) H 08/05/18 06:00 INR 1.4 08/05/18 06:00 APTT 42.5 Seconds (25.6-37.1) H 08/05/18 06:00 - Constitutional Appears: Well - Head Exam Head Exam: ATRAUMATIC, NORMAL INSPECTION, NORMOCEPHALIC - Eye Exam Eye Exam: EOMI, Normal appearance, PERRL Pupil Exam: NORMAL ACCOMODATION, PERRL - ENT Exam ENT Exam: Mucous Membranes Moist, Normal Exam - Neck Exam Neck Exam: Full ROM, Normal Inspection - Respiratory Exam Respiratory Exam: Decreased Breath Sounds, NORMAL BREATHING PATTERN - Cardiovascular Exam Cardiovascular Exam: Diastolic murmur, REGULAR RHYTHM, +S1, +S2, Murmur - GI/Abdominal Exam GI & Abdominal Exam: Distended, Soft, Normal Bowel Sounds - Rectal Exam Rectal Exam: Deferred - Extremities Exam Extremities Exam: Full ROM, Normal Capillary Refill, Pedal Edema. absent: Joint Swelling - Back Exam Back Exam: NORMAL INSPECTION. absent: CVA tenderness (L), CVA tenderness (R), Full ROM, muscle spasm, paraspinal tenderness, rash noted, tenderness, vertebral tenderness - Neurological Exam Neurological Exam: Alert, Awake, CN II-XII Intact, Normal Gait, Oriented x3. absent: Abnormal Gait, Altered, Motor Sensory Deficit, Reflexes Normal - Psychiatric Exam Psychiatric exam: Normal Affect, Normal Mood - Skin Skin Exam: Dry, Intact, Normal Color, Warm Assessment and Plan (1) Troponin level elevated Status: Acute (2) Elevated brain natriuretic peptide (BNP) level Status: Acute (3) Pericardial effusion Status: Acute (4) Pleural effusion Status: Acute (5) Leukocytosis Status: Acute (6) Breast CA Status: Acute (7) Hypothyroid Status: Acute - Assessment and Plan (Free Text) Plan: AWAIT ECHO PRIOR ECHO SHOWS MOD PERICARD EFFUSION. CONT LOW DOSE DIURETICS. MONITOR BP
[2018-08-07] MEDS: Piperacillin/Tazobact 3.375 GM in Sodium Chloride 0.9% 100 ML IVPB SCH ×4 (03:35→22:31)
[2018-08-07 05:35] LABS: HEMOGLOBIN 9.1 g/dL (12.0-16.0); MEAN CELL VOLUME 76.3 fl (81.0-99.0); MEAN CORPUSCULAR HEMOGLOBIN 23.1 pg (27.0-31.0); MEAN CORPUSCULAR HGB CONC 30.2 g/dL (33.0-37.0); RBC 3.96 Mil/uL (3.80-5.20); RED CELL DISTRIBUTION WIDTH 18.9 % (11.5-14.5); WHITE BLOOD COUNT 18.7 K/uL (4.8-10.8)
[2018-08-07 05:57] LABS: ALB/GLOB RATIO 0.8 (1.0-2.1); ALBUMIN 2.5 g/dL (3.5-5.0); ALT/SGPT 15 U/L (9-52); AST/SGOT 31 U/L (14-36); BLOOD UREA NITROGEN 17 mg/dl (7-17); CALCIUM 7.7 mg/dL (8.4-10.2); GFR NON-AFRICAN AMERICAN > 60
[2018-08-07] MEDS: Multivitamin With Minerals Tab PO SCH (10:40)
--- NOTE | 2018-08-07 12:23 | CP.PCM.PN ---
Subjective - Date & Time of Evaluation Date of Evaluation: 08/07/18 Time of Evaluation: 12:20 - Subjective Subjective: PT WITH PALP AND SOB LAST NIGHT Objective - Vital Signs/Intake and Output Vital Signs (last 24 hours): Temp Pulse Resp BP Pulse Ox 98.2 F 111 H 20 105/69 96 08/07/18 12:05 08/07/18 12:05 08/07/18 12:05 08/07/18 12:05 08/07/18 12:05 - Medications Medications: Current Medications Ferrous Sulfate (Feosol) 325 mg PO DAILY [facility] Last Admin: 08/07/18 10:37 Dose: 325 mg Furosemide (Lasix) 10 mg IVP DAILY [facility] Last Admin: 08/07/18 10:38 Dose: 10 mg Vancomycin HCl 1 gm/ Sodium (Chloride) 250 mls @ 166.667 mls/hr IVPB Q12 [facility]; Protocol Last Admin: 08/07/18 10:36 Dose: 166.667 mls/hr Piperacillin Sod/Tazobactam (Sod 3.375 gm/ Sodium Chloride) 100 mls @ 100 mls/hr IVPB Q6 [facility]; Protocol Last Admin: 08/07/18 10:36 Dose: 100 mls/hr Iron Sucrose 200 mg/ Sodium (Chloride) 110 mls @ 110 mls/hr IVPB DAILY [facility] Stop: 08/10/18 09:01 Last Admin: 08/07/18 10:35 Dose: 110 mls/hr Metoprolol Tartrate (Lopressor) 12.5 mg PO Q6 [facility] Last Admin: 08/07/18 10:40 Dose: 12.5 mg Multivitamins/Minerals (Therapeutic-M Tab) 1 tab PO DAILY [facility] Last Admin: 08/07/18 10:40 Dose: 1 tab - Labs Labs: 08/07/18 04:30 08/07/18 04:30 PT 16.0 Seconds (9.8-13.1) H 08/05/18 06:00 INR 1.4 08/05/18 06:00 APTT 42.5 Seconds (25.6-37.1) H 08/05/18 06:00 - Constitutional Appears: Well - Head Exam Head Exam: ATRAUMATIC, NORMAL INSPECTION, NORMOCEPHALIC - Eye Exam Eye Exam: EOMI, Normal appearance, PERRL. absent: Conjunctival injection, Nystagmus, Periorbital swelling, Periorbital tenderness, Scleral icterus Pupil Exam: NORMAL ACCOMODATION, PERRL - ENT Exam ENT Exam: Mucous Membranes Moist, Normal Exam. absent: Mucous Membranes Dry, Normal External Ear Exam, Normal Oropharynx, TM's Normal Bilaterally - Neck Exam Neck Exam: Full ROM, Normal Inspection. absent: Lymphadenopathy, Meningismus, Tenderness, Thyromegaly - Respiratory Exam Respiratory Exam: Decreased Breath Sounds, NORMAL BREATHING PATTERN. absent: Accessory Muscle Use, Chest Wall Tenderness, Clear to Ausculation Bilateral, Prolonged Expiratory Phase, Rales, Rhonchi, Wheezes, Respiratory Distress, Stridor - Cardiovascular Exam Cardiovascular Exam: Diastolic murmur, REGULAR RHYTHM, +S1, +S2, Murmur. abs ent: Bradycardia, Tachycardia, Clicks, Gallop, Irregular Rhythm, JVD, RRR, Rubs, +S4 - GI/Abdominal Exam GI & Abdominal Exam: Distended, Soft, Normal Bowel Sounds - Rectal Exam Rectal Exam: Deferred - Extremities Exam Extremities Exam: Full ROM, Normal Capillary Refill, Pedal Edema - Back Exam Back Exam: NORMAL INSPECTION. absent: CVA tenderness (L), CVA tenderness (R), Full ROM, muscle spasm, paraspinal tenderness, rash noted, tenderness, vertebral tenderness - Neurological Exam Neurological Exam: Alert, Awake, CN II-XII Intact, Normal Gait, Oriented x3. absent: Abnormal Gait, Altered, Motor Sensory Deficit, Reflexes Normal - Psychiatric Exam Psychiatric exam: Normal Affect, Normal Mood. absent: Agitated, Anxious, Depressed, Flat Affect, Homicidal Ideation, Manic, Suicidal Ideation - Skin Skin Exam: Dry, Intact, Normal Color, Warm. absent: Abrasion, Cyanosis, Diaphoretic, Erythema, Mottled, Pallor, Pallor, Petechiae, Rash, Urticaria, Vesicles Assessment and Plan (1) Troponin level elevated Status: Acute (2) Elevated brain natriuretic peptide (BNP) level Status: Acute (3) Pericardial effusion Status: Acute (4) Pleural effusion Status: Acute (5) Leukocytosis Status: Acute (6) Breast CA Status: Acute (7) Hypothyroid Status: Acute - Assessment and Plan (Free Text) Plan: echo shows early systolic ra wall partial collapse. pericardial effusion is loculated and mod around inferior and posterior. severe mr, mod tr, mild to mod phtn. INCREASE LASIX TO BID 10MG MONITOR BP CLOSELY PT HAS CHF FROM SEVERE MR. MILD TROP ELEVATION MAY BE DUE TO CHF. DIURESIS NEEDS TO BE SLOW AND GENTLE GIVEN EFFUSION. GIVEN METASTATIC CANCER WOULD TREAT WITH MEDICAL THERAPY.
--- NOTE | 2018-08-07 16:59 | CP.PCM.PN ---
Subjective - Date & Time of Evaluation Date of Evaluation: 08/07/18 Time of Evaluation: 13:15 - Subjective Subjective: F/u Generalized weakness. no SOB, no abdominal pain, refusing BIPAP Objective - Vital Signs/Intake and Output Vital Signs (last 24 hours): Temp Pulse Resp BP Pulse Ox 98.6 F 123 H 18 101/66 93 L 08/07/18 16:17 08/07/18 16:36 08/07/18 16:17 08/07/18 16:36 08/07/18 16:17 - Medications Medications: Current Medications Ferrous Sulfate (Feosol) 325 mg PO DAILY [facility] Last Admin: 08/07/18 10:37 Dose: 325 mg Furosemide (Lasix) 10 mg IVP Q12 [facility] Vancomycin HCl 1 gm/ Sodium (Chloride) 250 mls @ 166.667 mls/hr IVPB Q12 [facility]; Protocol Last Admin: 08/07/18 10:36 Dose: 166.667 mls/hr Piperacillin Sod/Tazobactam (Sod 3.375 gm/ Sodium Chloride) 100 mls @ 100 mls/hr IVPB Q6 [facility]; Protocol Last Admin: 08/07/18 16:39 Dose: 100 mls/hr Iron Sucrose 200 mg/ Sodium (Chloride) 110 mls @ 110 mls/hr IVPB DAILY [facility] Stop: 08/10/18 09:01 Last Admin: 08/07/18 10:35 Dose: 110 mls/hr Metoprolol Tartrate (Lopressor) 12.5 mg PO Q6 [facility] Last Admin: 08/07/18 16:36 Dose: 12.5 mg Multivitamins/Minerals (Therapeutic-M Tab) 1 tab PO DAILY [facility] Last Admin: 08/07/18 10:40 Dose: 1 tab - Labs Labs: 08/07/18 04:30 08/07/18 04:30 PT 16.0 Seconds (9.8-13.1) H 08/05/18 06:00 INR 1.4 08/05/18 06:00 APTT 42.5 Seconds (25.6-37.1) H 08/05/18 06:00 - Constitutional Appears: Chronically Ill - Head Exam Head Exam: NORMAL INSPECTION - Eye Exam Eye Exam: PERRL - ENT Exam ENT Exam: Normal Exam - Neck Exam Neck Exam: Normal Inspection - Respiratory Exam Respiratory Exam: Decreased Breath Sounds (at bases) - Cardiovascular Exam Cardiovascular Exam: REGULAR RHYTHM - GI/Abdominal Exam GI & Abdominal Exam: Distended, Soft, Tenderness (fungating mass umbilical, LLQ area of Bx) Additional comments: Fungating mass umbilical area , suprapubic, LLQ area of Bx - Extremities Exam Additional comments: legs, Ankles and feet edema - Back Exam Back Exam: NORMAL INSPECTION - Neurological Exam Neurological Exam: Alert, Oriented x3. absent: Motor Sensory Deficit Additional comments: Generalized weakness - Psychiatric Exam Psychiatric exam: Normal Mood - Skin Skin Exam: Warm Assessment and Plan (1) Generalized weakness Status: Deleted (2) Anemia Status: Acute (3) Pelvic mass Status: Acute (4) Breast CA Status: Acute (5) Troponin level elevated Status: Acute (6) Elevated brain natriuretic peptide (BNP) level Status: Acute (7) Pleural effusion Status: Acute (8) Leukocytosis Status: Acute (9) Pericardial effusion Status: Acute - Assessment and Plan (Free Text) Plan: Lasix , Zosyn, Vanco and rest of treatment, f/u Bx Pelvic mass Pathology report
--- NOTE | 2018-08-07 21:21 | CARD ---
APPROVED REPORT Date of service: 08/07/2018 EXAM: Two-dimensional and M-mode echocardiogram with Doppler and color Doppler. Other Information Quality : ExcellentRhythm : Tachycardia INDICATION Pericardial Effusion 2D DIMENSIONS IVSd1.10 (0.7-1.1cm)LVDd5.98 (3.9-5.9cm) LVOT Diameter1.69 (1.8-2.4cm)PWd1.16 (0.7-1.1cm) IVSs0.90 (0.8-1.2cm)LVDs4.84 (2.5-4.0cm) FS (%) 19.0 %PWs1.10 (0.8-1.2cm) M-Mode DIMENSIONS Left Atrium (MM)5.12 (2.5-4.0cm)Aortic Root2.62 (2.2-3.7cm) Aortic Cusp Exc.1.53 (1.5-2.0cm) Aortic Valve AoV Peak Lztbtcuf766.0cm/sAoV VTI24.0cmAO Peak GR.8mmHg LVOT Peak Tcylnyhv791.5cm/sLVOT VTI18.17cmAO Mean GR.5mmHg PRIMITIVO (VMAX)1.98eb7YFT (VTI)1.01cm2 Mitral Valve MV E Gjbulsfl831.3cm/sMV E Peak Gr.76mmHgMV DECEL EDWO114im MV A Igccfzio32.9cm/sMV XUQ42guV/A ratio1.3 MVA (PHT)4.54cm2 TDI Lateral E' Peak V10.43cm/sMedial E' Peak V4.56cm/sE/Lateral E'11.4 E/Medial E'26.2 Tricuspid Valve TR Peak Jdddunpz699nf/sRAP MRADLVON87ucEiXK Peak Gr.43mmHg POIQ81enAr LEFT VENTRICLE The Left Ventricle is mildly dilated. There is normal left ventricular wall thickness. The systolic function is moderately impaired. The estimated ejection fraction is 35-40% There is global hypokinesis of the left ventricle. Transmitral Doppler flow pattern is Grade II-pseudonormal filling dynamics. No left ventricle thrombus noted on this study. There is no ventricular septal defect visualized. There is no left ventricular aneurysm. There is no mass noted in the left ventricle. RIGHT VENTRICLE The right ventricle is normal size. There is normal right ventricular wall thickness. The right ventricular systolic function is normal. ATRIA The left atrium is moderate to severely dilated. The right atrium size is normal. The interatrial septum is intact with no evidence for an atrial septal defect. AORTIC VALVE The aortic valve is normal in structure. No aortic regurgitation is present. There is no aortic valvular stenosis. There is no aortic valvular vegetation. MITRAL VALVE The mitral valve is normal in structure. There is no evidence of mitral valve prolapse. There is no mitral valve stenosis. There is severe mitral valve regurgitation noted. Eccentric jet. TRICUSPID VALVE The tricuspid valve is normal in structure. There is moderate to severe tricuspid valve regurgitation noted. RVSP is calculated at 49 mm Hg. There is no tricuspid valve prolapse or vegetation. There is no tricuspid valve stenosis. PULMONIC VALVE The pulmonary valve is normal in structure. There is no pulmonic valvular regurgitation. There is no pulmonic valvular stenosis. GREAT VESSELS The aortic root is normal in size. The ascending aorta is normal in size. The pulmonary artery is normal. The IVC is normal in size and collapses >50% with inspiration. PERICARDIAL EFFUSION There is small circumferential pericardial effusion. There is no pleural effusion. <Conclusion> The Left Ventricle is mildly dilated. The systolic function is moderately impaired. The estimated ejection fraction is 35-40%. There is moderate global hypokinesis of the left ventricle. Transmitral Doppler flow pattern is Grade II-pseudonormal filling dynamics. The left atrium is moderate to severely dilated. There is severe mitral valve regurgitation noted. There is moderate to severe tricuspid valve regurgitation noted. RVSP is calculated at 49 mm Hg. There is small circumferential pericardial effusion.
[2018-08-08] MEDS: Piperacillin/Tazobact 3.375 GM in Sodium Chloride 0.9% 100 ML IVPB SCH ×3 (03:27→21:18)
[2018-08-08 05:18] LABS: HEMOGLOBIN 9.5 g/dL (12.0-16.0); MEAN CELL VOLUME 76.9 fl (81.0-99.0); MEAN CORPUSCULAR HEMOGLOBIN 23.4 pg (27.0-31.0); MEAN CORPUSCULAR HGB CONC 30.5 g/dL (33.0-37.0); RBC 4.08 Mil/uL (3.80-5.20); RED CELL DISTRIBUTION WIDTH 19.6 % (11.5-14.5); WHITE BLOOD COUNT 20.7 K/uL (4.8-10.8)
[2018-08-08 05:31] LABS: BLOOD UREA NITROGEN 17 mg/dl (7-17); CALCIUM 8.1 mg/dL (8.4-10.2); GFR NON-AFRICAN AMERICAN 57
[2018-08-08] MEDS: Multivitamin With Minerals Tab PO SCH (09:41)
--- NOTE | 2018-08-08 13:44 | PQF ---
PROVIDER RESPONSE TEXT: Acute on chronic systolic CHF. REVIEWER QUERY TEXT: Heart Failure Acuity and Type Congestive Heart Failure is documented in the Medical Record. Please document the type and acuity (in cludes probable or suspected) if known after the work up is completed: versus CHF ruled out Such as: Type: -- Combined systolic and diastolic (heart failure with reduced ejection fraction and diastolic) dysfu nction -- Diastolic (HFpEF) -- Systolic (HFrEF) -- Left heart failure -- Right heart failure -- Right heart failure due to left heart failure -- High output failure -- End stage heart failure -- Other, please specify Acuity: -- Acute -- Chronic -- Acute on chronic -- Other, please specify ProBNP: [id number]->[id number] 08/04 CXR:Report: Mild pulmonary vascular congestion and cardiomegaly. V/S record: Pulse: 31->18->28->29 ER: Impression: Congestive heart failure (CHF), Anemia, Pericardial effusion, Metastatic cancer to ax illary lymph nodes H and P: Dx with R Breast CA ( Bx ), Pelvic mass, came to ER [facility] to be evaluated fo r increased weakness, onset 2 days PACU RN after pelvic mass Bx on 08/02/18 (awaiting Bx result), associa yissel to dizziness, tachycardia ( 1) Generalized weakness Status: Acute Priority: High (2) Anemia Status: Acute Priority: High (3) Pelvic mass Status: Acute Priority: High (4) Breast CA Status: Acute Priority: High (5) Troponin level elevated Status: Acute Priority: High (6) Elevated brain natriuretic peptide (BNP) level Status: Acute Priority: High (7) Pleural effusion Status: Acute Priority: High (8) Leukocytosis Status: Acute Priority: High (9) Pericardial effusion Status: Acute Priority: Medium - Assess: F/U Carotid U-S, Continue Zosyn, Vanco, Iron sucrase, Metoprolol and rest of Tx, PT/OT eval , Cardiology and hematology consult. 08/05 Cardio consult: (1) Troponin level elevated Status: Acute (2) Elevated brain natriuretic peptide (BNP) level Status: Acute (3) Pericardial effusion Status: Acute (4) Pleural effusion Status: Acute (5) Leukocytosis Status: Acute (6) Breast CA Status: Acute (7) Hypothyroid Status: Acute Assess: echo ordered (need jf) since bp is low would hold diuretics and await echo for eval of any tamponade physiology. monitor on tele. if bp drops would consider ivf boluses and upgrade to icu.given trop will start asa and very low dose bb's -08/04 Lasix IV stat x 3 doses and 08/05 IVP daily -echo pending The patient's Clinical Indicators include: --- Query created by: Dayami Hood on 08/07/2018 9:21 AM Electronically signed by: Yang Feliz MD 08/08/2018 1:41 PM
[2018-08-08] MEDS ORDERED: Potassium Chloride 20 mEq ER Tab PO ONE (14:30)
--- NOTE | 2018-08-08 15:46 | CP.PCM.PCO ---
Assessment/Plan - Assessment and Plan (Free Text) Assessment: Patient seen and examined this afternoon. Vss, alert awake in no distress. On 2L NC. Right breast larger than left, with some papular lesions around nipple area. Patient states lesions were bleeding last night but no bleeding noted today. Labs reviewed, hemoglobin stable Pathology still not back yet today for pelvic mass biopsy, will follow up tomorrow Plan discussed with Dr Ward, Patient will follow up for treatment with Dr Daniel, has appointment this . For discharge tomorrow for home. All the above discussed with Dr Feliz.
--- NOTE | 2018-08-08 15:52 | CP.PCM.PN ---
Subjective - Date & Time of Evaluation Date of Evaluation: 08/08/18 Time of Evaluation: 12:30 - Subjective Subjective: F/U Generalized weakness. Pt awake, no A/D, no c/o. Objective - Vital Signs/Intake and Output Vital Signs (last 24 hours): Temp Pulse Resp BP Pulse Ox 98.5 F 4 L 20 100/65 94 L 08/08/18 12:02 08/08/18 12:02 08/08/18 12:02 08/08/18 12:02 08/08/18 12:02 - Medications Medications: Current Medications Ferrous Sulfate (Feosol) 325 mg PO DAILY [facility] Last Admin: 08/08/18 09:41 Dose: 325 mg Furosemide (Lasix) 10 mg IVP Q12 [facility] Last Admin: 08/08/18 09:00 Dose: Not Given Vancomycin HCl 1 gm/ Sodium (Chloride) 250 mls @ 166.667 mls/hr IVPB Q12 [facility]; Protocol Last Admin: 08/08/18 14:19 Dose: 166.667 mls/hr Piperacillin Sod/Tazobactam (Sod 3.375 gm/ Sodium Chloride) 100 mls @ 100 mls/hr IVPB Q6 [facility]; Protocol Last Admin: 08/08/18 14:19 Dose: 100 mls/hr Iron Sucrose 200 mg/ Sodium (Chloride) 110 mls @ 110 mls/hr IVPB DAILY [facility] Stop: 08/10/18 09:01 Last Admin: 08/08/18 09:42 Dose: 110 mls/hr Metoprolol Tartrate (Lopressor) 12.5 mg PO Q6 [facility] Last Admin: 08/08/18 10:00 Dose: Not Given Multivitamins/Minerals (Therapeutic-M Tab) 1 tab PO DAILY [facility] Last Admin: 08/08/18 09:41 Dose: 1 tab - Labs Labs: 08/08/18 04:25 08/08/18 04:25 PT 16.0 Seconds (9.8-13.1) H 08/05/18 06:00 INR 1.4 08/05/18 06:00 APTT 42.5 Seconds (25.6-37.1) H 08/05/18 06:00 - Constitutional Appears: Chronically Ill - Head Exam Head Exam: NORMAL INSPECTION - Eye Exam Eye Exam: PERRL - ENT Exam ENT Exam: Normal Exam - Neck Exam Neck Exam: Normal Inspection - Respiratory Exam Respiratory Exam: Decreased Breath Sounds (at bases) - Cardiovascular Exam Cardiovascular Exam: REGULAR RHYTHM - GI/Abdominal Exam GI & Abdominal Exam: Distended (mild), Soft ( ), Tenderness (pelvic mass), Normal Bowel Sounds - Extremities Exam Additional comments: Ankles and feet edema - Back Exam Back Exam: NORMAL INSPECTION - Neurological Exam Neurological Exam: Alert, Oriented x3 Additional comments: No motor/sensory deficit, generalized weakness. - Psychiatric Exam Psychiatric exam: Normal Mood - Skin Skin Exam: Warm Assessment and Plan (1) Generalized weakness Status: Deleted (2) Anemia Status: Acute (3) Pelvic mass Status: Acute (4) Breast CA Status: Acute (5) Troponin level elevated Status: Acute (6) Elevated brain natriuretic peptide (BNP) level Status: Acute (7) Pleural effusion Status: Acute (8) Leukocytosis Status: Acute (9) Pericardial effusion Status: Acute - Assessment and Plan (Free Text) Plan: Awaiting for Pathology report Pelvic mass Bx, continue Zosyn, Guerreroo and rest of Tx.
[2018-08-09] MEDS: Piperacillin/Tazobact 3.375 GM in Sodium Chloride 0.9% 100 ML IVPB SCH ×4 (03:26→22:45)
[2018-08-09 05:51] LABS: HEMOGLOBIN 8.8 g/dL (12.0-16.0); MEAN CELL VOLUME 76.7 fl (81.0-99.0); MEAN CORPUSCULAR HEMOGLOBIN 23.8 pg (27.0-31.0); RBC 3.72 Mil/uL (3.80-5.20); RED CELL DISTRIBUTION WIDTH 19.6 % (11.5-14.5); WHITE BLOOD COUNT 21.8 K/uL (4.8-10.8)
[2018-08-09 06:02] LABS: BLOOD UREA NITROGEN 16 mg/dl (7-17)
[2018-08-09 06:03] LABS: CALCIUM 8.1 mg/dL (8.4-10.2); GFR NON-AFRICAN AMERICAN 57
[2018-08-09] MEDS: Multivitamin With Minerals Tab PO SCH (08:26)
--- NOTE | 2018-08-09 12:55 | RAD ---
Date of service: 08/09/2018 HISTORY: f/u COMPARISON: 08/04/2018 single-view chest. 08/04/2018 CT thorax FINDINGS: LUNGS: Consolidative changes right lower lobe primarily related to large right pleural. PLEURA: Right pleural effusion. No significant. CARDIOVASCULAR: No atherosclerotic calcification present Stable cardiomegaly OSSEOUS STRUCTURES: No significant abnormalities. VISUALIZED UPPER ABDOMEN: Normal. OTHER FINDINGS: None. IMPRESSION: Cardiomegaly without CHF. Right pleural effusion/right lower lobe infiltrate unchanged compared to the chest radiograph.
--- NOTE | 2018-08-09 13:52 | CP.PCM.PN ---
Subjective - Date & Time of Evaluation Date of Evaluation: 08/09/18 Time of Evaluation: 11:00 - Subjective Subjective: F/U Generalized weakness, Pelvic mass. Pt awake, c/o of SOB, MARTIN with O2, increased leg edema heaviness Objective - Vital Signs/Intake and Output Vital Signs (last 24 hours): Temp Pulse Resp BP Pulse Ox 98.1 F 110 H 18 100/63 99 08/09/18 11:57 08/09/18 11:57 08/09/18 11:57 08/09/18 11:57 08/09/18 11:57 - Medications Medications: Current Medications Ferrous Sulfate (Feosol) 325 mg PO DAILY [facility] Last Admin: 08/09/18 08:26 Dose: 325 mg Furosemide (Lasix) 10 mg IVP Q12 [facility] Last Admin: 08/09/18 08:26 Dose: 10 mg Vancomycin HCl 1 gm/ Sodium (Chloride) 250 mls @ 166.667 mls/hr IVPB Q12 [facility]; Protocol Last Admin: 08/09/18 08:28 Dose: 166.667 mls/hr Piperacillin Sod/Tazobactam (Sod 3.375 gm/ Sodium Chloride) 100 mls @ 100 mls/hr IVPB Q6 [facility]; Protocol Last Admin: 08/09/18 10:45 Dose: 100 mls/hr Iron Sucrose 200 mg/ Sodium (Chloride) 110 mls @ 110 mls/hr IVPB DAILY [facility] 234 [facility]S [facility] Stop: 08/10/18 09:01 Last Admin: 08/09/18 08:27 Dose: 110 mls/hr Metoprolol Tartrate (Lopressor) 12.5 mg PO Q6 [facility] Last Admin: 08/09/18 10:43 Dose: Not Given Multivitamins/Minerals (Therapeutic-M Tab) 1 tab PO DAILY [facility] Last Admin: 08/09/18 08:26 Dose: 1 tab - Labs Labs: 08/09/18 04:10 08/09/18 04:10 PT 16.0 Seconds (9.8-13.1) H 08/05/18 06:00 INR 1.4 08/05/18 06:00 APTT 42.5 Seconds (25.6-37.1) H 08/05/18 06:00 - Constitutional Appears: Chronically Ill - Head Exam Head Exam: NORMAL INSPECTION - Eye Exam Eye Exam: PERRL - ENT Exam ENT Exam: Normal Exam - Neck Exam Neck Exam: Normal Inspection - Respiratory Exam Respiratory Exam: Decreased Breath Sounds (at bases) Additional comments: Few crackles at bases. - Cardiovascular Exam Cardiovascular Exam: Diastolic murmur, REGULAR RHYTHM - GI/Abdominal Exam GI & Abdominal Exam: Distended (mild), Soft, Tenderness ( fungating mass umbilical, suprapubic area), Normal Bowel Sounds - Extremities Exam Additional comments: legs,ankles and feet edema - Back Exam Back Exam: NORMAL INSPECTION - Neurological Exam Neurological Exam: Alert, Oriented x3. absent: Motor Sensory Deficit Additional comments: Generalized weakness. - Psychiatric Exam Psychiatric exam: Normal Mood - Skin Skin Exam: Warm Assessment and Plan (1) SOB (shortness of breath) Status: Acute (2) Generalized weakness Status: Deleted (3) Anemia Status: Acute (4) Pelvic mass Status: Acute (5) Breast CA Status: Acute (6) Troponin level elevated Status: Acute (7) Elevated brain natriuretic peptide (BNP) level Status: Acute (8) Pleural effusion Status: Acute (9) Leukocytosis Status: Acute (10) Pericardial effusion Status: Acute - Assessment and Plan (Free Text) Plan: Change in medical condition, increased SOB, MARTIN, legs edema. F/U CXR, Venous Doppler L/E, F/U Pathology pelvic mass report, continue Denys Gar Lasix and rest of Tx.
[2018-08-10] MEDS: Piperacillin/Tazobact 3.375 GM in Sodium Chloride 0.9% 100 ML IVPB SCH ×5 (03:19→21:01)
[2018-08-10 05:32] LABS: MEAN CELL VOLUME 77.6 fl (81.0-99.0); MEAN CORPUSCULAR HEMOGLOBIN 23.8 pg (27.0-31.0); MEAN CORPUSCULAR HGB CONC 30.7 g/dL (33.0-37.0); RBC 3.78 Mil/uL (3.80-5.20); RED CELL DISTRIBUTION WIDTH 20.2 % (11.5-14.5); WHITE BLOOD COUNT 21.7 K/uL (4.8-10.8)
[2018-08-10 05:42] LABS: BLOOD UREA NITROGEN 16 mg/dl (7-17); CALCIUM 8.4 mg/dL (8.4-10.2); GFR NON-AFRICAN AMERICAN 51
[2018-08-10] MEDS: Multivitamin With Minerals Tab PO SCH (09:28)
[2018-08-10] MEDS ORDERED: Enoxaparin 80 mg Syringe SC STA (12:43)
[2018-08-10 14:05] LABS: ABG ALLEN TEST YES; ARTERIAL BLOOD GAS HCO3 27.3 mmol/L (21-28); ARTERIAL BLOOD GAS HEMOGLOBIN 9.7 g/dL (11.7-17.4); ARTERIAL BLOOD GAS O2 CAPACITY 13.2 mL/dL (16-24); ARTERIAL BLOOD GAS O2 CONTENT 13.1 ML/dL (15-23); ARTERIAL BLOOD GAS O2 SAT 99.1 % (95-98); ARTERIAL BLOOD GAS PCO2 37 mm/Hg (35-45); ARTERIAL BLOOD GAS PH 7.47 (7.35-7.45); ARTERIAL BLOOD GAS PO2 83 mm/Hg (80-100)
--- NOTE | 2018-08-10 14:17 | US ---
Date of service: 08/10/2018 EXAM: Venous Doppler complete bilateral INDICATIONS: Evaluate for deep venous thrombosis. TECHNIQUE: Duplex venous evaluation of the both lower extremities was performed utilizing graded compression, color Doppler and spectral Doppler interrogation. COMPARISON: Bilateral lower extremity venous duplex 05/30/2018 FINDINGS: Right leg: There is partial compressibility and nonocclusive thrombus within the common femoral vein. There is normal morphology, compressibility, Doppler flow, and augmentation of the right femoral and popliteal veins. Visualized portions of the posterior tibial vein are unremarkable. Left leg: There is partial compressibility and nonocclusive thrombus within the common femoral vein and proximal femoral vein. There is normal morphology, compressibility, Doppler flow, and augmentation of the left mid and distal femoral and popliteal veins. Visualized portions of the posterior tibial vein are unremarkable. IMPRESSION: Right leg: Nonocclusive thrombus within the common femoral vein. Left leg: Nonocclusive thrombus within the common femoral and proximal femoral vein. Findings were discussed by the cytotechnologist/cytology supervisor with the patient's RN, Eleanor, shortly after the conclusion of the exam.
--- NOTE | 2018-08-10 15:03 | CP.PCM.PCO ---
Assessment and Plan - Assessment and Plan (Free Text) Assessment: Patient seen and examined in rounds. With some dyspnea on exertion. US bilateral extremities shows non-occlusive femoral dvts bilaterally. Lovenox 70mg given stat, CT scan angio ordered. Discussed with Dr Daniel, patient's oncologist in the community who recommends Palliative care-hospice as she is too weak to receive any sort of chemotherapy at this time. Will dicuss with Dr Feliz.
--- NOTE | 2018-08-10 15:07 | CP.PCM.PN ---
Subjective - Date & Time of Evaluation Date of Evaluation: 08/10/18 Time of Evaluation: 13:00 - Subjective Subjective: F/U Pelvic mass, generalized weakness. less SOB, MARTIN today Objective - Vital Signs/Intake and Output Vital Signs (last 24 hours): Temp Pulse Resp BP Pulse Ox 97.6 F 108 H 18 105/69 95 08/10/18 08:00 08/10/18 09:28 08/10/18 08:00 08/10/18 09:29 08/10/18 08:00 Intake and Output: 08/10/18 08/10/18 06:59 18:59 Intake Total 600 Output Total 600 Balance 0 - Medications Medications: Current Medications Enoxaparin Sodium (Lovenox) 70 mg SC Q12 [facility]; Protocol Ferrous Sulfate (Feosol) 325 mg PO DAILY [facility] Last Admin: 08/10/18 09:28 Dose: 325 mg Furosemide (Lasix) 10 mg IVP Q12 [facility] Last Admin: 08/10/18 09:29 Dose: 10 mg Vancomycin HCl 1 gm/ Sodium (Chloride) 250 mls @ 166.667 mls/hr IVPB Q12 [facility]; Protocol Last Admin: 08/10/18 09:30 Dose: 166.667 mls/hr Piperacillin Sod/Tazobactam (Sod 3.375 gm/ Sodium Chloride) 100 mls @ 100 mls/hr IVPB Q6 [facility]; Protocol Last Admin: 08/10/18 09:31 Dose: 100 mls/hr Metoprolol Tartrate (Lopressor) 12.5 mg PO Q6 [facility] Last Admin: 08/10/18 09:28 Dose: 12.5 mg Multivitamins/Minerals (Therapeutic-M Tab) 1 tab PO DAILY [facility] Last Admin: 08/10/18 09:28 Dose: 1 tab - Labs Labs: 08/10/18 05:10 08/10/18 05:10 PT 16.0 Seconds (9.8-13.1) H 08/05/18 06:00 INR 1.4 08/05/18 06:00 APTT 42.5 Seconds (25.6-37.1) H 08/05/18 06:00 - Constitutional Appears: Chronically Ill - Head Exam Head Exam: NORMAL INSPECTION - Eye Exam Eye Exam: PERRL - ENT Exam ENT Exam: Normal Exam - Neck Exam Neck Exam: Normal Inspection - Respiratory Exam Respiratory Exam: Decreased Breath Sounds (at bases L>R, few crackles at bases) - Cardiovascular Exam Cardiovascular Exam: REGULAR RHYTHM - GI/Abdominal Exam GI & Abdominal Exam: Distended (mmild), Soft, Tenderness (umbilical fungating mass, suprapubic, LLQ area od Bx), Normal Bowel Sounds - Extremities Exam Additional comments: Increased 2-3 + edema legs, ankles and feet. - Back Exam Back Exam: NORMAL INSPECTION - Neurological Exam Neurological Exam: Alert, Oriented x3 Additional comments: Generalized weakness, no focal motor/sensory deficit - Psychiatric Exam Psychiatric exam: Normal Mood - Skin Skin Exam: Warm Assessment and Plan (1) SOB (shortness of breath) Status: Acute (2) Anemia Status: Acute (3) Pelvic mass Status: Acute (4) Breast CA Status: Acute (5) Troponin level elevated Status: Acute (6) Elevated brain natriuretic peptide (BNP) level Status: Acute (7) Pleural effusion Status: Acute (8) Leukocytosis Status: Acute (9) Pericardial effusion Status: Acute (10) DVT of lower extremity, bilateral Status: Acute (11) Pulmonary embolism on left Status: Acute - Assessment and Plan (Free Text) Plan: Patient on Lovenox, discussed with Pathology, Pelvic mass Bx Carcinoma with areas of necrosis, awaiting outside report, Dr Daniel Registered Radiologic Technologist treating her outside , Patient will not have any further treatment, suggestion Palliative care. Patient evaluation for IR Thoracentesis, IVC Filter, Patient with SOB on O2 NC, evaluate for further anticoagulation with reversible medication
[2018-08-10] MEDS ORDERED: Iodixanol 320 MG/ML 100 ML BOTTLE IV ONE (17:01)
[2018-08-10] MEDS ORDERED: Sodium Chloride 0.9% 50 ML IV ONE (17:01)
--- NOTE | 2018-08-10 18:30 | CT ---
Date of service: 08/10/2018 PROCEDURE: CT Chest with contrast (Pulmonary Angiogram) HISTORY: SOB. New DVT. COMPARISON: Comparison made with chest radiograph dated 08/09/[address] scan of the abdomen and pelvis dated 07/06/2018 which also imaged both lung bases and upper abdomen... TECHNIQUE: Axial computed tomography images were obtained of the chest in the pulmonary arterial phase of enhancement. Coronal and sagittal reformatted images were created and reviewed. Intravenous contrast dose: 75 cc Visipaque 320 Radiation dose: Total exam DLP = 289.82 mGy-cm. This CT exam was performed using one or more of the following dose reduction techniques: Automated exposure control, adjustment of the mA and/or kV according to patient size, and/or use of iterative reconstruction technique. FINDINGS: PULMONARY ARTERIES: There is are pulmonary emboli seen within the left upper lobe left upper lobe of branch of the pulmonary artery extending into proximal segmental upper lobe branches as well.. Pulmonary trunk measures approximately 3.1 cm. AORTA: No acute findings. No thoracic aortic aneurysm. Ascending thoracic aorta measures approximately 3.6 cm and descending thoracic aorta measures approximately 2.5 cm. Minimal aortic atherosclerotic calcification or mural plaque present. LUNGS: Unremarkable. No nodule, mass or pulmonary consolidation. PLEURAL SPACES: There is a large right-sided pleural effusion with atelectatic changes in the right lower lobe and middle lobe regions.. Additionally, there is a small left-sided effusion with atelectasis in the left lower lobe and lingular region. Small amount of fluid is also seen tracking along the superior aspect of the right the minor fissure and inferior margin right major fissure as well as the superior margin of the left major fissure.. Findings also suggest mild pulmonary vascular congestion. HEART: Heart is markedly enlarged. No significant pericardial effusion. . LYMPH NODES: Multiple small nonspecific mediastinal lymph nodes are present. No significant hilar adenopathy.. BONES, CHEST WALL: Mild multilevel degenerative spondylosis of the thoracic spine. No suspicious lytic or blastic lesions seen. OTHER FINDINGS: Large amount of upper abdominal ascites with infiltration changes of the mesentery. Note that the mesentery also exhibits nodular appearance. Consider metastatic disease. Rule out hepatic cirrhosis. The liver exhibits somewhat nodular contour which could be secondary to large amount of ascites and nodular mesentery however cirrhosis not excluded. IMPRESSION: Pulmonary emboli seen within the left upper lobe left upper lobe of branch of the pulmonary artery extending into proximal segmental upper lobe branches as well. Large right-sided effusion with mild atelectasis in the right lung base and middle lobe. Fluid seen tracking in the superior aspect of the right minor fissure as well as inferior margin of the right major fissure. Small left-sided effusion with fluid tracking along the superior margin of the left major fissure. Findings consistent with mild pulmonary vascular congestive changes.. Large amount of upper abdominal ascites with infiltration changes of the mesentery. Note that the mesentery also exhibits nodular appearance. Consider metastatic disease. Rule out hepatic cirrhosis. The liver exhibits somewhat nodular contour which could be secondary to large amount of ascites and nodular mesentery however cirrhosis not excluded.
[2018-08-10] MEDS: Enoxaparin 80 mg Syringe SC SCH ×2 (22:39→23:50)
[2018-08-11] MEDS: Piperacillin/Tazobact 3.375 GM in Sodium Chloride 0.9% 100 ML IVPB SCH ×4 (03:42→22:12)
[2018-08-11 05:41] LABS: BASO # 0.1 K/uL (0.0-0.2); BASO % 0.3 % (0.0-2.0); EOS # 0.1 K/uL (0.0-0.7); EOS % 0.3 % (0.0-4.0); HEMOGLOBIN 9.3 g/dL (12.0-16.0); LYMPH # 1.4 K/uL (1.0-4.3); LYMPH % 6.1 % (20.0-40.0); MEAN CELL VOLUME 78.8 fl (81.0-99.0); MEAN CORPUSCULAR HGB CONC 30.4 g/dL (33.0-37.0); MONO # 1.2 K/uL (0.0-0.8); MONO % 5.4 % (0.0-10.0); NEUT # 19.7 K/uL (1.8-7.0); NEUT % 87.9 % (50.0-75.0); PLATELET COUNT 325 K/uL (130-400); RBC 3.89 Mil/uL (3.80-5.20); RED CELL DISTRIBUTION WIDTH 20.5 % (11.5-14.5); WHITE BLOOD COUNT 22.4 K/uL (4.8-10.8)
[2018-08-11 06:04] LABS: INR 1.3; PROTHROMBIN TIME 14.3 Seconds (9.8-13.1)
[2018-08-11 06:09] LABS: ALB/GLOB RATIO 0.8 (1.0-2.1); ALBUMIN 2.7 g/dL (3.5-5.0); CALCIUM 8.3 mg/dL (8.4-10.2)
[2018-08-11 08:29] LABS: LYMPHOCYTE 7 % (20-50); MONOCYTE 4 % (0-10); NEUTROPHIL 89 % (42-75); TOTAL CELLS COUNTED 100
[2018-08-11 08:30] LABS: PLATELET ESTIMATE NORMAL (NORMAL)
[2018-08-11 08:32] LABS: ANISOCYTOSIS SLIGHT; OVALOCYTES SLIGHT; POIKILOCYTOSIS SLIGHT
[2018-08-11 08:34] LABS: HYPOCHROMIC SLIGHT
[2018-08-11] MEDS: Multivitamin With Minerals Tab PO SCH (09:17)
[2018-08-11] MEDS ORDERED: Lidocaine 1% Inj (20ml) ONE (10:47)
--- NOTE | 2018-08-11 10:58 | CP.PCM.PCO ---
Assessment & Plan - Assessment and Plan (Free Text) Assessment: spoke to IR; pt. scheduled for Thoracentesis today d/w regarding ivc filter insertion; plan is to repeat US LE on Tuesday , f/u report and then make decision regarding filter on Tuesday Currently to cont. on therapeutic Lovenox US LE ordered for Tuesday Above d/w and Dr.PInal Mcfarlane trough 25; hold dose pending f/u levels
--- NOTE | 2018-08-11 11:06 | PCM.IRP ---
Objective - Vital Signs/Intake and Output Vital Signs (last 24 hours): Vital Signs - 24 hr 08/10/18 08/10/18 08/10/18 11:00 15:32 17:59 Temperature 97.9 F Pulse Rate 74 118 H 118 H Respiratory 20 Rate Blood Pressure 124/58 L 112/76 112/76 O2 Sat by Pulse 95 96 Oximetry 08/10/18 08/10/18 08/10/18 20:01 21:00 21:03 Temperature 98.1 F Pulse Rate 117 H 106 H 117 H Respiratory 20 Rate Blood Pressure 100/68 100/68 100/68 O2 Sat by Pulse 93 L Oximetry 08/10/18 08/10/18 08/11/18 21:05 23:59 03:45 Temperature 98.0 F Pulse Rate 117 H 106 H 102 H Respiratory 20 Rate Blood Pressure 100/68 98/68 L 95/67 L O2 Sat by Pulse 98 Oximetry 08/11/18 08/11/18 08/11/18 05:00 07:52 09:17 Temperature 97.7 F 97.4 F L Pulse Rate 100 H 103 H 103 H Respiratory 20 18 Rate Blood Pressure 95/61 L 102/72 102/72 O2 Sat by Pulse 99 96 Oximetry 08/11/18 09:19 Temperature Pulse Rate Respiratory Rate Blood Pressure 102/72 O2 Sat by Pulse Oximetry Intake and Output (last 12 hours): Intake & Output 08/10/18 08/11/18 08/11/18 18:59 06:59 18:59 Intake Total 650 Balance 650 Weight 155 lb 3.2 oz 155 lb Intake: Intake, Piggyback 450 Oral 200 Other: # Voids Urine, Voided 6 - Medications Medications: Current Medications Enoxaparin Sodium (Lovenox) 70 mg SC Q12 [facility]; Protocol Last Admin: 08/10/18 23:50 Dose: Not Given Ferrous Sulfate (Feosol) 325 mg PO DAILY [facility] Last Admin: 08/11/18 09:17 Dose: 325 mg Furosemide (Lasix) 10 mg IVP Q12 [facility] Last Admin: 08/11/18 09:19 Dose: Not Given Vancomycin HCl 1 gm/ Sodium (Chloride) 250 mls @ 166.667 mls/hr IVPB Q12 [facility]; Protocol Last Admin: 08/11/18 09:20 Dose: 166.667 mls/hr Piperacillin Sod/Tazobactam (Sod 3.375 gm/ Sodium Chloride) 100 mls @ 100 mls/hr IVPB Q6 [facility]; Protocol Last Admin: 08/11/18 09:06 Dose: 100 mls/hr Metoprolol Tartrate (Lopressor) 12.5 mg PO Q6 [facility] Last Admin: 08/11/18 09:17 Dose: 12.5 mg Multivitamins/Minerals (Therapeutic-M Tab) 1 tab PO DAILY [facility] Last Admin: 08/11/18 09:17 Dose: 1 tab - Labs Labs (last 24 hours): Laboratory Results - last 24 hr 08/10/18 08/11/18 08/11/18 14:02 04:30 04:30 WBC 22.4 H RBC 3.89 Hgb 9.3 L Hct 30.6 L MCV 78.8 L MCH 24.0 L MCHC 30.4 L RDW 20.5 H Plt Count 325 MPV 8.0 Neut % (Auto) 87.9 H Lymph % (Auto) 6.1 L [place] % (Auto) 5.4 Eos % (Auto) 0.3 Baso % (Auto) 0.3 Neut # (Auto) 19.7 H Lymph # (Auto) 1.4 Alger # (Auto) 1.2 H Eos # (Auto) 0.1 Baso # (Auto) 0.1 Neutrophils % (Manual) 89 H Lymphocytes % (Manual) 7 L Monocytes % (Manual) 4 Platelet Estimate Normal Hypochromasia (manual) Slight Poikilocytosis (manual Slight Anisocytosis (manual) Slight Ovalocytes Slight PT 14.3 H INR 1.3 pCO2 37 pO2 83 HCO3 27.3 ABG pH 7.47 H ABG Total CO2 28.0 ABG O2 Saturation 99.1 H ABG O2 Content 13.1 L ABG Base Excess 3.1 H ABG Hemoglobin 9.7 L ABG Carboxyhemoglobin 2.5 H POC ABG HHb (Measured) 0.9 ABG Methemoglobin 1.2 ABG O2 Capacity 13.2 L Frederic Test Yes A-a O2 Difference 99.0 Hgb O2 Saturation 95.5 Vent Mode Nasal cannula FiO2 32.0 Sodium Potassium Chloride Carbon Dioxide Anion Gap BUN Creatinine Est GFR ( Amer) Est GFR (Non-Af Amer) Random Glucose Calcium Total Bilirubin AST ALT Alkaline Phosphatase Total Protein Albumin Globulin Albumin/Globulin Ratio Vancomycin Trough 01/18/19 01/18/19 04:30 09:31 WBC RBC Hgb Hct MCV MCH MCHC RDW Plt Count MPV Neut % (Auto) Lymph % (Auto) Alger % (Auto) Eos % (Auto) Baso % (Auto) Neut # (Auto) Lymph # (Auto) Alger # (Auto) Eos # (Auto) Baso # (Auto) Neutrophils % (Manual) Lymphocytes % (Manual) Monocytes % (Manual) Platelet Estimate Hypochromasia (manual) Poikilocytosis (manual Anisocytosis (manual) Ovalocytes PT INR pCO2 pO2 HCO3 ABG pH ABG Total CO2 ABG O2 Saturation ABG O2 Content ABG Base Excess ABG Hemoglobin ABG Carboxyhemoglobin POC ABG HHb (Measured) ABG Methemoglobin ABG O2 Capacity Frederic Test A-a O2 Difference Hgb O2 Saturation Vent Mode FiO2 Sodium 139 Potassium 3.7 Chloride 102 Carbon Dioxide 28 Anion Gap 13 BUN 18 H Creatinine 1.2 Est GFR ( Amer) 55 Est GFR (Non-Af Amer) 46 Random Glucose 122 H Calcium 8.3 L Total Bilirubin 0.4 AST 27 ALT 20 Alkaline Phosphatase 155 H D Total Protein 6.1 L Albumin 2.7 L Globulin 3.4 Albumin/Globulin Ratio 0.8 L Vancomycin Trough 25.0 H Assessment/Plan - Assessment and Plan (Free Text) Assessment: Assessment for IVC filter placement. The patient is currently on anticoagulation therapy with non occlusive thrombi B/L.With a hypercoaguable state the risk of inserting an IVC filter would be that of thrombus formation in the IVC and around the filter. In my opinion the patient should receive a trial of antocuagulation and if this fails then a filter should be considered. I discussed the case with Dr. Pires who agrees. A follow up US of the LE s should be obtained to assess for thrombus status.
--- NOTE | 2018-08-11 12:12 | PCM.SURG1 ---
Surgeon's Initial Post Op Note - Surgeon's Notes Surgeon: Veda Fireman: None Type of Anesthesia: Local Pre-Operative Diagnosis: Right pleural effusion Operative Findings: Same Post-Operative Diagnosis: same Operation Performed: Right thoracentesis. Specimen/Specimens Removed: Apprx 770cc of bloody fluid aspirated. Estimated Blood Loss: EBL {In ML}: 1 Date of Surgery/Procedure: 08/11/18 Time of Surgery/Procedure: 15:00
--- NOTE | 2018-08-11 12:31 | CP.PCM.PN ---
Subjective - Date & Time of Evaluation Date of Evaluation: 08/11/18 Time of Evaluation: 13:30 - Subjective Subjective: F/U S/P Thoracentesis for R Pleural effusion. MARTIN, orthopnea, no SOB at rest with O2 2L ,NC, s/p R Thoracentesis Objective - Vital Signs/Intake and Output Vital Signs (last 24 hours): Temp Pulse Resp BP Pulse Ox 97 F L 114 H 18 110/76 95 08/11/18 12:03 08/11/18 12:03 08/11/18 12:03 08/11/18 12:03 08/11/18 12:03 Intake and Output: 08/11/18 08/11/18 06:59 18:59 Intake Total 650 Balance 650 - Medications Medications: Current Medications Enoxaparin Sodium (Lovenox) 70 mg SC Q12 [facility]; Protocol Last Admin: 08/10/18 23:50 Dose: Not Given Ferrous Sulfate (Feosol) 325 mg PO DAILY [facility] Last Admin: 08/11/18 09:17 Dose: 325 mg Furosemide (Lasix) 10 mg IVP Q12 [facility] Last Admin: 08/11/18 09:19 Dose: Not Given Vancomycin HCl 1 gm/ Sodium (Chloride) 250 mls @ 166.667 mls/hr IVPB Q12 [facility]; Protocol Last Admin: 08/11/18 09:20 Dose: 166.667 mls/hr Piperacillin Sod/Tazobactam (Sod 3.375 gm/ Sodium Chloride) 100 mls @ 100 mls/hr IVPB Q6 [facility]; Protocol Last Admin: 08/11/18 09:06 Dose: 100 mls/hr Metoprolol Tartrate (Lopressor) 12.5 mg PO Q6 [facility] Last Admin: 08/11/18 09:17 Dose: 12.5 mg Multivitamins/Minerals (Therapeutic-M Tab) 1 tab PO DAILY [facility] Last Admin: 08/11/18 09:17 Dose: 1 tab - Labs Labs: 08/11/18 04:30 08/11/18 04:30 PT 14.3 Seconds (9.8-13.1) H 08/11/18 04:30 INR 1.3 08/11/18 04:30 APTT 42.5 Seconds (25.6-37.1) H 08/05/18 06:00 - Constitutional Appears: Chronically Ill - Head Exam Head Exam: NORMAL INSPECTION - Eye Exam Eye Exam: PERRL - ENT Exam ENT Exam: Normal Exam - Neck Exam Neck Exam: Normal Inspection - Respiratory Exam Respiratory Exam: Decreased Breath Sounds (at bases, L>R) Additional comments: dressing area of R Thoracentesis Few crackles at bases - Cardiovascular Exam Cardiovascular Exam: REGULAR RHYTHM - GI/Abdominal Exam GI & Abdominal Exam: Distended (mild), Soft, Tenderness (umbilical fungating mass, suprapubic, LLQ area of Bx, ), Normal Bowel Sounds - Extremities Exam Additional comments: increased 2-3 + edema legs, ankles and feet. - Back Exam Back Exam: NORMAL INSPECTION - Neurological Exam Neurological Exam: Alert, Oriented x3 Additional comments: Generalized weakness, no focal motor/sensory deficit. - Psychiatric Exam Psychiatric exam: Normal Mood - Skin Skin Exam: Warm Assessment and Plan (1) SOB (shortness of breath) Status: Acute (2) Pleural effusion Status: Acute (3) Anemia Status: Acute (4) Pelvic mass Status: Acute (5) Breast CA Status: Acute (6) Troponin level elevated Status: Acute (7) Elevated brain natriuretic peptide (BNP) level Status: Acute (8) Leukocytosis Status: Acute (9) Pericardial effusion Status: Acute (10) DVT of lower extremity, bilateral Status: Acute (11) Pulmonary embolism on left Status: Acute (12) S/P thoracentesis Status: Acute - Assessment and Plan (Free Text) Plan: s/p R Thoracentesis 700cc, resume Lovenox, repeat Venous Dopler Tuesday, f/u ABG R/A, discussed with Patient Preliminary report Bx of Pelvic mass impression is Carcinoma with areas of necrosis, awaiting final report from outside consultation also discussed with Patient that 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
[2018-08-11 12:41] LABS: BODY FLUID TYPE PLEURAL/THORACENTESI
--- NOTE | 2018-08-11 12:42 | RAD ---
Date of service: 08/11/2018 HISTORY: Right thoracentesis COMPARISON: 08/09/2018 FINDINGS: LUNGS: Patchy opacity at left base, retrocardiac, possible developing pneumonia. Follow-up advised. PLEURA: Probable small bilateral pleural effusion, decreased from prior. Likely fluid in minor fissure. CARDIOVASCULAR: No aortic atherosclerotic calcification present. Normal cardiac size. No pulmonary vascular congestion. OSSEOUS STRUCTURES: No significant abnormalities. VISUALIZED UPPER ABDOMEN: Normal. OTHER FINDINGS: None. IMPRESSION: Possible left lower lobe infiltrate. Recommend follow-up examination. Small bilateral pleural effusion.
[2018-08-11 13:29] LABS: TOTAL PROTEIN,BODY FLUID 2.4 g/dL (NONE ESTABLISHED)
[2018-08-11] MEDS: Enoxaparin 80 mg Syringe SC SCH ×2 (13:34→22:11)
[2018-08-11 13:37] LABS: GLUCOSE,BODY FLUID 118 mg/dL (NONE ESTABLISHED)
[2018-08-11 13:57] LABS: BF GROSS APPEARANCE BLOODY (CLEAR)
[2018-08-11 15:14] LABS: BODY FLUID MONO/MACROPHAGE 14 % (0-0); BODY FLUID TOTAL COUNT 100 (0-0)
[2018-08-11 22:21] LABS: ABG ALLEN TEST YES; ARTERIAL BLOOD GAS HCO3 28.5 mmol/L (21-28); ARTERIAL BLOOD GAS HEMOGLOBIN 9.3 g/dL (11.7-17.4); ARTERIAL BLOOD GAS O2 CAPACITY 12.7 mL/dL (16-24); ARTERIAL BLOOD GAS O2 CONTENT 12.2 ML/dL (15-23); ARTERIAL BLOOD GAS O2 SAT 96.4 % (95-98); ARTERIAL BLOOD GAS PCO2 37 mm/Hg (35-45); ARTERIAL BLOOD GAS PH 7.49 (7.35-7.45); ARTERIAL BLOOD GAS PO2 63 mm/Hg (80-100); ARTERIAL BLOOD GAS TCO2 29.3 mmol/L (22-28)
[2018-08-12] MEDS: Piperacillin/Tazobact 3.375 GM in Sodium Chloride 0.9% 100 ML IVPB SCH ×4 (04:46→21:28)
[2018-08-12 07:35] LABS: HEMOGLOBIN 9.3 g/dL (12.0-16.0); MEAN CELL VOLUME 78.9 fl (81.0-99.0); MEAN CORPUSCULAR HEMOGLOBIN 23.9 pg (27.0-31.0); MEAN CORPUSCULAR HGB CONC 30.3 g/dL (33.0-37.0); RBC 3.9 Mil/uL (3.80-5.20); RED CELL DISTRIBUTION WIDTH 21.5 % (11.5-14.5); WHITE BLOOD COUNT 18.8 K/uL (4.8-10.8)
[2018-08-12 07:56] LABS: CALCIUM 8.3 mg/dL (8.4-10.2)
[2018-08-12] MEDS: Multivitamin With Minerals Tab PO SCH (10:44)
[2018-08-12] MEDS: Enoxaparin 80 mg Syringe SC SCH ×2 (10:44→21:24)
--- NOTE | 2018-08-12 13:37 | CP.PCM.PN ---
Subjective - Date & Time of Evaluation Date of Evaluation: 08/12/18 Time of Evaluation: 14:30 - Subjective Subjective: F/U S/P throacentesis for R Pleural effusion. Pelvic mass. no AD, no SOB with O2,, no MARTIN, no abdominal pain, R breast pain with monitor Objective - Vital Signs/Intake and Output Vital Signs (last 24 hours): Temp Pulse Resp BP Pulse Ox 98.1 F 111 H 20 106/71 98 08/12/18 11:50 08/12/18 11:50 08/12/18 11:50 08/12/18 11:50 08/12/18 11:50 - Medications Medications: Current Medications Enoxaparin Sodium (Lovenox) 70 mg SC Q12 [facility]; Protocol Last Admin: 08/12/18 10:44 Dose: 70 mg Ferrous Sulfate (Feosol) 325 mg PO DAILY [facility] Last Admin: 08/12/18 10:43 Dose: 325 mg Furosemide (Lasix) 10 mg IVP Q12 [facility] Last Admin: 08/12/18 10:07 Dose: Not Given Vancomycin HCl 1 gm/ Sodium (Chloride) 250 mls @ 166.667 mls/hr IVPB Q12 [facility]; Protocol Last Admin: 08/11/18 09:00 Dose: Not Given Piperacillin Sod/Tazobactam (Sod 3.375 gm/ Sodium Chloride) 100 mls @ 100 mls/hr IVPB Q6 [facility]; Protocol Last Admin: 08/12/18 10:46 Dose: 100 mls/hr Metoprolol Tartrate (Lopressor) 12.5 mg PO Q6 [facility] Last Admin: 08/12/18 10:46 Dose: Not Given Multivitamins/Minerals (Therapeutic-M Tab) 1 tab PO DAILY [facility] Last Admin: 08/12/18 10:44 Dose: 1 tab - Labs Labs: 08/12/18 06:15 08/12/18 06:15 PT 14.3 Seconds (9.8-13.1) H 08/11/18 04:30 INR 1.3 08/11/18 04:30 APTT 42.5 Seconds (25.6-37.1) H 08/05/18 06:00 - Constitutional Appears: No Acute Distress, Chronically Ill - Head Exam Head Exam: NORMAL INSPECTION - Eye Exam Eye Exam: PERRL - ENT Exam ENT Exam: Normal Exam - Neck Exam Neck Exam: Normal Inspection - Respiratory Exam Respiratory Exam: Decreased Breath Sounds (at bases ) Additional comments: Dressing area of Thoracentesis. Crackles at bases, Chest R Breast multiple masses with tenderness - Cardiovascular Exam Cardiovascular Exam: REGULAR RHYTHM - GI/Abdominal Exam GI & Abdominal Exam: Distended (mild), Soft, Tenderness (tenderness umbilical fungating mass and LLQ area of Bx), Normal Bowel Sounds. absent: Guarding, Rebound - Extremities Exam Additional comments: edema legs ankles and feet - Back Exam Back Exam: NORMAL INSPECTION - Neurological Exam Neurological Exam: Alert, Oriented x3 Additional comments: No focal motor/sensory deficit, generalized weakness. - Psychiatric Exam Psychiatric exam: Normal Mood - Skin Skin Exam: Warm Assessment and Plan (1) SOB (shortness of breath) Status: Acute (2) Pleural effusion Status: Acute (3) Anemia Status: Acute (4) Pelvic mass Status: Acute (5) Breast CA Status: Acute (6) Troponin level elevated Status: Acute (7) Elevated brain natriuretic peptide (BNP) level Status: Acute (8) Leukocytosis Status: Acute (9) Pericardial effusion Status: Acute (10) DVT of lower extremity, bilateral Status: Acute (11) Pulmonary embolism on left Status: Acute (12) S/P thoracentesis Status: Acute - Assessment and Plan (Free Text) Plan: continue Lovenox, Lasix, Zosyn, Vanco on hold for high trough level, f/u Venous Dopler Tuesday
[2018-08-13] MEDS: Piperacillin/Tazobact 3.375 GM in Sodium Chloride 0.9% 100 ML IVPB SCH ×4 (05:51→21:31)
[2018-08-13] MEDS: Enoxaparin 80 mg Syringe SC SCH ×2 (11:39→21:27)
[2018-08-13] MEDS: Multivitamin With Minerals Tab PO SCH (11:40)
--- NOTE | 2018-08-13 14:26 | CP.PCM.PN ---
Subjective - Date & Time of Evaluation Date of Evaluation: 08/13/18 Time of Evaluation: 12:50 - Subjective Subjective: F/U S/P Thoracentesis, Pelvic mass. no AD, at times no SOB off O2, no abdominal pain, off Telemetry for pain R breast Objective - Vital Signs/Intake and Output Vital Signs (last 24 hours): Temp Pulse Resp BP Pulse Ox 97.9 F 103 H 18 98/64 L 94 L 08/13/18 08:00 08/13/18 08:00 08/13/18 08:00 08/13/18 08:00 08/13/18 08:00 - Medications Medications: Current Medications Enoxaparin Sodium (Lovenox) 70 mg SC Q12 [facility]; Protocol Last Admin: 08/13/18 11:39 Dose: 70 mg Ferrous Sulfate (Feosol) 325 mg PO DAILY [facility] Last Admin: 08/13/18 11:38 Dose: 325 mg Furosemide (Lasix) 10 mg IVP Q12 [facility] Last Admin: 08/13/18 11:39 Dose: Not Given Vancomycin HCl 1 gm/ Sodium (Chloride) 250 mls @ 166.667 mls/hr IVPB Q12 [facility]; Protocol Last Admin: 08/11/18 09:00 Dose: Not Given Piperacillin Sod/Tazobactam (Sod 3.375 gm/ Sodium Chloride) 100 mls @ 100 mls/hr IVPB Q6 [facility]; Protocol Last Admin: 08/13/18 11:40 Dose: 100 mls/hr Metoprolol Tartrate (Lopressor) 12.5 mg PO Q6 [facility] Last Admin: 08/13/18 11:39 Dose: Not Given Multivitamins/Minerals (Therapeutic-M Tab) 1 tab PO DAILY [facility] Last Admin: 08/13/18 11:40 Dose: 1 tab - Labs Labs: 08/12/18 06:15 08/12/18 06:15 PT 14.3 Seconds (9.8-13.1) H 08/11/18 04:30 INR 1.3 08/11/18 04:30 APTT 42.5 Seconds (25.6-37.1) H 08/05/18 06:00 - Constitutional Appears: No Acute Distress, Chronically Ill - Head Exam Head Exam: NORMAL INSPECTION - Eye Exam Eye Exam: PERRL - ENT Exam ENT Exam: Normal Exam - Neck Exam Neck Exam: Normal Inspection - Respiratory Exam Respiratory Exam: Decreased Breath Sounds (at bases L>R) Additional comments: Few crackles at bases., minimal tenderness area of R Thoracentesis, R Breast multiple masses with renderness - Cardiovascular Exam Cardiovascular Exam: REGULAR RHYTHM - GI/Abdominal Exam GI & Abdominal Exam: Distended (mild), Soft, Tenderness (tenderness umbilical fungating mass, no tenderness area of bx.), Normal Bowel Sounds - Extremities Exam Additional comments: edema lower extremities - Back Exam Back Exam: NORMAL INSPECTION - Neurological Exam Neurological Exam: Alert, Oriented x3 Additional comments: No focal motor/sensory deficit. Generalized weakness. - Psychiatric Exam Psychiatric exam: Normal Mood - Skin Skin Exam: Warm Assessment and Plan (1) SOB (shortness of breath) Status: Acute (2) Pleural effusion Status: Acute (3) Anemia Status: Acute (4) Pelvic mass Assessment & Plan: Carcinoma Status: Acute (5) Breast CA Status: Acute (6) Troponin level elevated Status: Acute (7) Elevated brain natriuretic peptide (BNP) level Status: Acute (8) Leukocytosis Status: Acute (9) Pericardial effusion Status: Acute (10) DVT of lower extremity, bilateral Status: Acute (11) Pulmonary embolism on left Status: Acute (12) S/P thoracentesis Status: Acute - Assessment and Plan (Free Text) Plan: awaiting final Pathology report Pelvic mass Bx , verbal report Carcinoma with necrotic areas difficult to determine if primary or metastatic, continue current Tx, f/u Venous Dopler on Tuesday
[2018-08-14] MEDS: Piperacillin/Tazobact 3.375 GM in Sodium Chloride 0.9% 100 ML IVPB SCH ×2 (05:17→09:55)
[2018-08-14] MEDS: Enoxaparin 80 mg Syringe SC SCH ×2 (09:51→21:40)
[2018-08-14] MEDS: Multivitamin With Minerals Tab PO SCH (09:54)
--- NOTE | 2018-08-14 15:50 | CP.PCM.PN ---
Subjective - Date & Time of Evaluation Date of Evaluation: 08/14/18 Time of Evaluation: 12:20 - Subjective Subjective: F/U Thoracentesis x R pleural effusion. Pelvic Mass. MARTIN, no SOB with O2. No abdominal pain. Objective - Vital Signs/Intake and Output Vital Signs (last 24 hours): Temp Pulse Resp BP Pulse Ox 98 F 98 H 20 104/67 95 08/14/18 12:48 08/14/18 12:48 08/14/18 12:48 08/14/18 12:48 08/14/18 12:48 - Medications Medications: Current Medications Ferrous Sulfate (Feosol) 325 mg PO DAILY [facility] Last Admin: 08/14/18 09:43 Dose: 325 mg Furosemide (Lasix) 10 mg IVP Q12 [facility] Last Admin: 08/14/18 09:48 Dose: 10 mg Vancomycin HCl 1 gm/ Sodium (Chloride) 250 mls @ 166.667 mls/hr IVPB Q12 [facility]; Protocol Last Admin: 08/11/18 09:00 Dose: Not Given Metoprolol Tartrate (Lopressor) 12.5 mg PO Q6 [facility] Last Admin: 08/14/18 09:50 Dose: 12.5 mg Multivitamins/Minerals (Therapeutic-M Tab) 1 tab PO DAILY [facility] Last Admin: 08/14/18 09:54 Dose: 1 tab - Labs Labs: 08/12/18 06:15 08/12/18 06:15 PT 14.3 Seconds (9.8-13.1) H 08/11/18 04:30 INR 1.3 08/11/18 04:30 APTT 42.5 Seconds (25.6-37.1) H 08/05/18 06:00 - Constitutional Appears: No Acute Distress, Chronically Ill - Head Exam Head Exam: NORMAL INSPECTION - Eye Exam Eye Exam: PERRL - ENT Exam ENT Exam: Normal Exam - Neck Exam Neck Exam: Normal Inspection - Respiratory Exam Respiratory Exam: Decreased Breath Sounds (at bases L>R) Additional comments: Few crackles at bases, minimal tenderness area of R thoracentesis, R breast multiple masses with tenderness - Cardiovascular Exam Cardiovascular Exam: REGULAR RHYTHM - GI/Abdominal Exam GI & Abdominal Exam: Distended (mild), Soft, Tenderness (umbilical fungating mass), Normal Bowel Sounds - Extremities Exam Additional comments: Edema legs, ankles and feet - Back Exam Back Exam: NORMAL INSPECTION - Neurological Exam Neurological Exam: Alert, Oriented x3 Additional comments: Generalized weakness, no focal motor/sensory deficit. - Psychiatric Exam Psychiatric exam: Normal Mood - Skin Skin Exam: Warm Assessment and Plan (1) SOB (shortness of breath) Status: Acute (2) Pleural effusion Status: Acute (3) Anemia Status: Acute (4) Pelvic mass Status: Acute (5) Breast CA Status: Acute (6) Troponin level elevated Status: Acute (7) Elevated brain natriuretic peptide (BNP) level Status: Acute (8) Leukocytosis Status: Acute (9) Pericardial effusion Status: Acute (10) DVT of lower extremity, bilateral Status: Acute (11) Pulmonary embolism on left Status: Acute (12) S/P thoracentesis Status: Acute - Assessment and Plan (Free Text) Plan: Continue current Tx, F/U Venous Doppler lower extremities
[2018-08-14 16:15] LABS: ABG ALLEN TEST YES; ARTERIAL BLOOD GAS HCO3 26.9 mmol/L (21-28); ARTERIAL BLOOD GAS O2 CAPACITY 13.7 mL/dL (16-24); ARTERIAL BLOOD GAS O2 CONTENT 13.6 ML/dL (15-23); ARTERIAL BLOOD GAS O2 SAT 99.6 % (95-98); ARTERIAL BLOOD GAS PCO2 35 mm/Hg (35-45); ARTERIAL BLOOD GAS PH 7.48 (7.35-7.45); ARTERIAL BLOOD GAS PO2 95 mm/Hg (80-100); ARTERIAL BLOOD GAS TCO2 27.2 mmol/L (22-28)
--- NOTE | 2018-08-14 17:06 | RAD ---
Date of service: 08/14/2018 HISTORY: shortness of breath COMPARISON: 08/11/2018 FINDINGS: LUNGS: No definite infiltrate. Opacity seen overlying the left heart on prior examination is not appreciated on current examination. PLEURA: Small right pleural effusion. Fluid seen in the minor fissure. Possible fluid capping the right lung apex. No definite left pleural effusion. CARDIOVASCULAR: No aortic atherosclerotic calcification present. Normal cardiac size. No pulmonary vascular congestion. OSSEOUS STRUCTURES: No significant abnormalities. VISUALIZED UPPER ABDOMEN: Normal. OTHER FINDINGS: None. IMPRESSION: Small right pleural effusion. No definite left pleural effusion. No infiltrate.
[2018-08-15] MEDS: Multivitamin With Minerals Tab PO SCH (08:54)
[2018-08-15] MEDS: Enoxaparin 80 mg Syringe SC SCH (08:54)
[2018-08-15 10:33] LABS: HEMOGLOBIN 10.1 g/dL (12.0-16.0); MEAN CELL VOLUME 80.9 fl (81.0-99.0); MEAN CORPUSCULAR HGB CONC 30.9 g/dL (33.0-37.0); RBC 4.04 Mil/uL (3.80-5.20); RED CELL DISTRIBUTION WIDTH 23.7 % (11.5-14.5); WHITE BLOOD COUNT 19.8 K/uL (4.8-10.8)
[2018-08-15 10:41] LABS: BLOOD UREA NITROGEN 18 mg/dl (7-17); CALCIUM 8.4 mg/dL (8.4-10.2); GFR NON-AFRICAN AMERICAN 57
--- NOTE | 2018-08-15 11:50 | US ---
Date of service: 08/15/2018 PROCEDURE: Bilateral lower extremity venous duplex Doppler. HISTORY: f/u on previous US LE + DVT COMPARISON: Bilateral lower extremity venous duplex ultrasound performed 08/10/2018. TECHNIQUE: Bilateral common femoral, superficial femoral, popliteal and posterior tibial veins were evaluated. Flow was assessed with color Doppler, compressibility, assessment of phasic flow and augmentation response. FINDINGS: COMMON FEMORAL VEIN: Right CFV: Partial compressibility with nonocclusive thrombus. Left CFV: Partial compressibility with nonocclusive thrombus. SUPERFICIAL FEMORAL VEIN: Right SFV: Unremarkable. Left SFV: Resolution of previously seen nonocclusive thrombus. POPLITEAL VEIN: Right Popliteal: Unremarkable. Left Popliteal: Unremarkable. POSTERIOR TIBIAL VEIN: Right PTV: Unremarkable. Left PTV: Unremarkable. OTHER FINDINGS: Incompressibility of the right gastrocnemius vein at the level of the popliteal vein. IMPRESSION: Residual nonocclusive thrombus within both common femoral veins. Resolution of previously seen nonocclusive thrombus in the proximal left femoral vein. Incompressibility of the right gastrocnemius vein at the level of the popliteal vein suggestive of occlusive thrombus.
--- NOTE | 2018-08-15 15:03 | CP.PCM.PCO ---
Assessment/Plan - Assessment and Plan (Free Text) Assessment: Patient seen and examined today. VSS, breathing easier than yesterday. Plan discussed, patient wants therapy for her metastatic breast ca. Discussed with Dr Ward who is on consult for the patient. Dr Ward will speak to patient with regards to getting chemotherapy started once she is discharged. Plan for port tomorrow and possible chemotherapy once discharged. Spoke with Dr Pires in IR for port placement Pt/Inr ordered, Lovenox on hold. Discussed with Dr Feliz who agrees with plan.
--- NOTE | 2018-08-15 15:34 | CP.PCM.PN ---
Subjective - Date & Time of Evaluation Date of Evaluation: 08/15/18 Time of Evaluation: 10:40 - Subjective Subjective: F/U S/P Thoracentesis, R pleural effusion, Pelvic mass. SOB yesterday evening, NC increased 4 L/M, no SOB at rest, MARTIN. No abdominal pa in Objective - Vital Signs/Intake and Output Vital Signs (last 24 hours): Temp Pulse Resp BP Pulse Ox 98.2 F 105 H 18 94/60 L 97 08/15/18 12:15 08/15/18 12:15 08/15/18 12:15 08/15/18 12:15 08/15/18 12:15 - Medications Medications: Current Medications Enoxaparin Sodium (Lovenox) 70 mg SC Q12 [facility]; Protocol Ferrous Sulfate (Feosol) 325 mg PO DAILY [facility] Last Admin: 08/15/18 08:51 Dose: 325 mg Furosemide (Lasix) 10 mg IVP Q12 [facility] Last Admin: 08/15/18 08:57 Dose: 10 mg Vancomycin HCl 1 gm/ Sodium (Chloride) 250 mls @ 166.667 mls/hr IVPB Q12 [facility]; Protocol Last Admin: 08/11/18 09:00 Dose: Not Given Metoprolol Tartrate (Lopressor) 12.5 mg PO Q6 [facility] Last Admin: 08/15/18 05:05 Dose: Not Given Multivitamins/Minerals (Therapeutic-M Tab) 1 tab PO DAILY [facility] Last Admin: 08/15/18 08:54 Dose: 1 tab - Labs Labs: 08/15/18 09:50 08/15/18 09:50 PT 14.3 Seconds (9.8-13.1) H 08/11/18 04:30 INR 1.3 08/11/18 04:30 APTT 42.5 Seconds (25.6-37.1) H 08/05/18 06:00 - Constitutional Appears: No Acute Distress, Chronically Ill - Head Exam Head Exam: NORMAL INSPECTION - Eye Exam Eye Exam: PERRL - ENT Exam ENT Exam: Normal Exam - Neck Exam Neck Exam: Normal Inspection - Respiratory Exam Respiratory Exam: Decreased Breath Sounds (at bases L>R) Additional comments: Few crackles at bases. Minimal tenderness area of R thoracentesis, R breast multiple liz with tenderness. - Cardiovascular Exam Cardiovascular Exam: REGULAR RHYTHM - GI/Abdominal Exam GI & Abdominal Exam: Distended (mild, ), Soft, Tenderness (umbilical fungating mass), Normal Bowel Sounds. absent: Guarding, Rebound - Extremities Exam Additional comments: Edema L/E - Back Exam Back Exam: NORMAL INSPECTION - Neurological Exam Neurological Exam: Alert, Oriented x3 Additional comments: No focal motor/sensory deficit - Psychiatric Exam Psychiatric exam: Normal Mood - Skin Skin Exam: Warm Assessment and Plan (1) SOB (shortness of breath) Status: Acute (2) Pleural effusion Status: Acute (3) Anemia Status: Acute (4) Pelvic mass Status: Acute (5) Breast CA Status: Acute (6) Troponin level elevated Status: Acute (7) Elevated brain natriuretic peptide (BNP) level Status: Acute (8) Leukocytosis Status: Acute (9) Pericardial effusion Status: Acute (10) DVT of lower extremity, bilateral Status: Acute (11) Pulmonary embolism on left Status: Acute (12) S/P thoracentesis Status: Acute - Assessment and Plan (Free Text) Plan: DVT L/E, resolving. Hematology, Dr Ward for Chem Therapy. Life Port insertion
[2018-08-15 15:43] LABS: INR 1.2; PROTHROMBIN TIME 13.1 Seconds (9.8-13.1)
[2018-08-15 15:46] LABS: PARTIAL THROMBOPLASTIN TIME 33.6 Seconds (25.6-37.1)
--- NOTE | 2018-08-15 16:22 | CP.PCM.PN ---
Subjective - Date & Time of Evaluation Date of Evaluation: 08/15/18 Time of Evaluation: 16:00 - Subjective Subjective: Feels weak, requesting breast cancer treatment and deferred hospice. Objective - Vital Signs/Intake and Output Vital Signs (last 24 hours): Temp Pulse Resp BP Pulse Ox 98.4 F 114 H 20 110/74 96 08/15/18 15:43 08/15/18 15:43 08/15/18 15:43 08/15/18 15:43 08/15/18 15:43 - Medications Medications: Current Medications Enoxaparin Sodium (Lovenox) 70 mg SC Q12 [facility]; Protocol Ferrous Sulfate (Feosol) 325 mg PO DAILY [facility] Last Admin: 08/15/18 08:51 Dose: 325 mg Furosemide (Lasix) 10 mg IVP Q12 [facility] Last Admin: 08/15/18 08:57 Dose: 10 mg Vancomycin HCl 1 gm/ Sodium (Chloride) 250 mls @ 166.667 mls/hr IVPB Q12 [facility]; Protocol Last Admin: 08/11/18 09:00 Dose: Not Given Metoprolol Tartrate (Lopressor) 12.5 mg PO Q6 [facility] Last Admin: 08/15/18 05:05 Dose: Not Given Multivitamins/Minerals (Therapeutic-M Tab) 1 tab PO DAILY [facility] Last Admin: 08/15/18 08:54 Dose: 1 tab - Labs Labs: 08/15/18 09:50 08/15/18 09:50 PT 13.1 Seconds (9.8-13.1) 08/15/18 15:25 INR 1.2 08/15/18 15:25 APTT 33.6 Seconds (25.6-37.1) 08/15/18 15:25 - Head Exam Head Exam: ATRAUMATIC - Eye Exam Eye Exam: Normal appearance - ENT Exam ENT Exam: Mucous Membranes Dry - Respiratory Exam Respiratory Exam: Decreased Breath Sounds - Cardiovascular Exam Cardiovascular Exam: +S1, +S2 - GI/Abdominal Exam GI & Abdominal Exam: Normal Bowel Sounds Assessment and Plan (1) Breast CA Assessment & Plan: stage IV pelvic mass metastasis suspect malignant pleural and pericardial effusions portacath placement outpatient chemotherapy Status: Acute (2) Pulmonary embolism Assessment & Plan: with DVT on therapeutic lovenox okay to start Eliquis 5mg BID on discharge Status: Acute (3) Anemia Assessment & Plan: chronic disease Status: Acute
[2018-08-16] MEDS: Multivitamin With Minerals Tab PO SCH (09:34)
[2018-08-16] MEDS ORDERED: Lidocaine 1% Inj (20ml) ONE (12:52)
[2018-08-16] MEDS ORDERED: Lidocaine 1% w Epi 1:100,000 Inj ONE (12:53)
[2018-08-16] MEDS ORDERED: Midazolam 2 MG/2 ML VIAL ONE (13:02)
--- NOTE | 2018-08-16 13:45 | PCM.SURG1 ---
Surgeon's Initial Post Op Note - Surgeon's Notes Surgeon: Serg Bhardwaj MD Supervisor Channel Process: NONE Type of Anesthesia: IV Sedation Pre-Operative Diagnosis: Breast cancer Operative Findings: US showed a patent left IJV Post-Operative Diagnosis: Breast cancer Operation Performed: Port placement via left IJV Specimen/Specimens Removed: nONE Estimated Blood Loss: EBL {In ML}: 4 Blood Products Given: N/A Drains Used: No Drains Post-Op Condition: Fair Date of Surgery/Procedure: 08/16/18 Time of Surgery/Procedure: 13:40
[2018-08-16] MEDS ORDERED: Sodium Chloride 0.9% 500 ML IV ONE (13:50)
[2018-08-16] MEDS ORDERED: Lactated Ringer's 1,000 ML IV SCH (14:00)
[2018-08-16] MEDS ORDERED: Enoxaparin 80 mg Syringe SC SCH (21:00)
[2018-08-17] MEDS: Multivitamin With Minerals Tab PO SCH (09:44)
--- NOTE | 2018-08-17 12:57 | VASCULAR ---
PROCEDURE: Date of procedure: 08/16/2018 Procedure: 1. Placement of a left IJ port catheter with ultrasound and fluoroscopic guidance, CPT 70789 2. Catheter tip confirmation with spot radiograph in the superior vena cava. Medications: The patient was sedated anesthesiologist along with monitoring, 8 lidocaine 1% w Epinephrine. Fluoroscopic time: 7.4 Seconds Radiation: 0.80 MGy Blood loss: 4 cc HISTORY: Breast cancer requiring port for chemotherapy TECHNIQUE: Following informed consent the procedure time-out, the patient was placed supine on the interventional table and the patient's left neck and chest were prepped and draped in the usual sterile fashion. Ultrasound showed a compressible left internal jugular vein. After the patient was sedated by the anesthesiologist, the skin was anesthetized with 1% lidocaine with epinephrine. Under direct ultrasound guidance, the left internal jugular vein was accessed with micropuncture technique. A guidewire was then advanced under fluoroscopic guidance into the superior vena cava. An image documenting ultrasound guidance for vascular access was permanently saved. The subcutaneous tissue of patient left chest was infiltrated with 1 percent lidocaine with epinephrine. A dermatotomy was made with a 15. Scalpel. The port pocket was then created with blunt dissection using a Brooke clamp. The port pocket was flushed. A port catheter was then tunneled under the skin and out the venotomy site. The port catheter was flushed, advanced through a peel-away sheath, adjusted for length, and attached to the port. The port was placed in the port pocket and was secured with 2-0 SurgiPro sutures. The port was flushed and locked with heparin. The port pocket was then closed with absorbable 4-0 Polysorb sutures. The port pocket and the venotomy site were reprepped with ChloraPrep. Steri-Strips were then applied to the port incision also venotomy site. A sterile dressing was then applied. Final spot radiograph showed the left IJ port catheter with tip of the port catheter in the superior vena cava. A port is functional and ready for use. IMPRESSION: Placement of left IJ port catheter. Tip of the port is confirmed with fluoroscopic image and is in superior vena cava. The port is functional and can be used.
--- NOTE | 2018-08-17 19:26 | CP.PCM.PN ---
Subjective - Date & Time of Evaluation Date of Evaluation: 08/17/18 Time of Evaluation: 13:00 - Subjective Subjective: F/U S/P Thoracentesis/R Pleural effusion. Pelvic mass. Pt awake, no SOB with O2, MARTIN, no abdominal pain. Objective - Vital Signs/Intake and Output Vital Signs (last 24 hours): Temp Pulse Resp BP Pulse Ox 98.4 F 109 H 17 104/67 96 08/17/18 16:01 08/17/18 17:15 08/17/18 16:01 08/17/18 17:15 08/17/18 16:01 - Medications Medications: Current Medications Apixaban (Eliquis) 5 mg PO BID [facility]; Protocol Last Admin: 08/17/18 17:14 Dose: 5 mg Ferrous Sulfate (Feosol) 325 mg PO DAILY [facility] Last Admin: 08/17/18 09:42 Dose: 325 mg Furosemide (Lasix) 10 mg IVP Q12 [facility] Last Admin: 08/17/18 09:43 Dose: Not Given Vancomycin HCl 1 gm/ Sodium (Chloride) 250 mls @ 166.667 mls/hr IVPB Q12 [facility]; Protocol Last Admin: 08/11/18 09:00 Dose: Not Given Metoprolol Tartrate (Lopressor) 12.5 mg PO Q6 [facility] Last Admin: 08/17/18 17:15 Dose: 12.5 mg Multivitamins/Minerals (Therapeutic-M Tab) 1 tab PO DAILY [facility] Last Admin: 08/17/18 09:44 Dose: 1 tab - Labs Labs: 08/15/18 09:50 08/15/18 09:50 PT 13.1 Seconds (9.8-13.1) 08/15/18 15:25 INR 1.2 08/15/18 15:25 APTT 33.6 Seconds (25.6-37.1) 08/15/18 15:25 - Constitutional Appears: No Acute Distress, Chronically Ill - Head Exam Head Exam: NORMAL INSPECTION - Eye Exam Eye Exam: PERRL - ENT Exam ENT Exam: Normal Exam - Neck Exam Neck Exam: Normal Inspection - Respiratory Exam Respiratory Exam: Decreased Breath Sounds (at bases L>R) Additional comments: Few crackles at bases, minimal tenderness on R thoracentesis, R breast multiple masses with tenderness - Cardiovascular Exam Cardiovascular Exam: REGULAR RHYTHM - GI/Abdominal Exam GI & Abdominal Exam: Distended (mild), Soft, Tenderness (umbilical fungating mass), Normal Bowel Sounds - Extremities Exam Additional comments: Edema lower extremities - Back Exam Back Exam: NORMAL INSPECTION - Neurological Exam Neurological Exam: Alert, Oriented x3 Additional comments: No focal motor/sensory deficit. Generalized weakness. - Psychiatric Exam Psychiatric exam: Normal Mood - Skin Skin Exam: Warm Assessment and Plan (1) SOB (shortness of breath) Status: Acute (2) Pleural effusion Status: Acute (3) Anemia Status: Acute (4) Pelvic mass Status: Acute (5) Breast CA Status: Acute (6) Troponin level elevated Status: Acute (7) Elevated brain natriuretic peptide (BNP) level Status: Acute (8) Leukocytosis Status: Acute (9) Pericardial effusion Status: Acute (10) DVT of lower extremity, bilateral Status: Acute (11) Pulmonary embolism on left Status: Acute (12) S/P thoracentesis Status: Acute - Assessment and Plan (Free Text) Plan: Live Port placement L IJV. For SAMUEL to have chemotherapy.
--- NOTE | 2018-08-17 22:03 | CP.PCM.PN ---
Subjective - Date & Time of Evaluation Date of Evaluation: 08/17/18 Time of Evaluation: 20:00 - Subjective Subjective: s/p portacath Objective - Vital Signs/Intake and Output Vital Signs (last 24 hours): Temp Pulse Resp BP Pulse Ox 98.1 F 108 H 19 98/80 L 96 08/17/18 19:53 08/17/18 19:53 08/17/18 19:53 08/17/18 21:20 08/17/18 19:53 - Medications Medications: Current Medications Apixaban (Eliquis) 5 mg PO BID [facility]; Protocol Last Admin: 08/17/18 17:14 Dose: 5 mg Ferrous Sulfate (Feosol) 325 mg PO DAILY [facility] Last Admin: 08/17/18 09:42 Dose: 325 mg Furosemide (Lasix) 10 mg IVP Q12 [facility] Last Admin: 08/17/18 21:19 Dose: Not Given Vancomycin HCl 1 gm/ Sodium (Chloride) 250 mls @ 166.667 mls/hr IVPB Q12 [facility]; Protocol Last Admin: 08/11/18 09:00 Dose: Not Given Metoprolol Tartrate (Lopressor) 12.5 mg PO Q6 [facility] Last Admin: 08/17/18 21:20 Dose: Not Given Multivitamins/Minerals (Therapeutic-M Tab) 1 tab PO DAILY [facility] Last Admin: 08/17/18 09:44 Dose: 1 tab - Labs Labs: 08/15/18 09:50 08/15/18 09:50 PT 13.1 Seconds (9.8-13.1) 08/15/18 15:25 INR 1.2 08/15/18 15:25 APTT 33.6 Seconds (25.6-37.1) 08/15/18 15:25 - Head Exam Head Exam: ATRAUMATIC - Eye Exam Eye Exam: Normal appearance - ENT Exam ENT Exam: Mucous Membranes Dry - Respiratory Exam Respiratory Exam: NORMAL BREATHING PATTERN - Cardiovascular Exam Cardiovascular Exam: +S1, +S2 - GI/Abdominal Exam GI & Abdominal Exam: Normal Bowel Sounds Assessment and Plan (1) Breast CA Assessment & Plan: stage IV ER positive - will start tamoxifen as inpatient and switch to AI as outpatient pelvic metastasis outpatient chemotherapy Status: Acute (2) Pulmonary embolism Assessment & Plan: on Elliquis Status: Acute (3) Anemia Assessment & Plan: chronic disease Status: Acute
[2018-08-18] MEDS: Multivitamin With Minerals Tab PO SCH (09:58)
[2018-08-18 16:07] VITALS: BP 105/71; PULSE 64; RESP 20; TEMP 98.2; O2SAT 97
--- NOTE | 2018-08-18 16:56 | CP.PCM.DIS ---
Provider - Provider Date of Admission: 08/04/18 14:32 Attending physician: Yang Feliz MD Consults: 08/04/18 19:00 Case Management Referral Routine Comment: Physician Instructions: Reason For Exam: Reason for Referral: Discharge Planning Nursing Referral for Palliative Care Routine Comment: Consulting Provider: Mariia Anderson Physician Instructions: Reason For Exam: Nursing assessement Nursing Referral for Wound Care Routine Comment: Umblical area pimple Physician Instructions: Reason For Exam: Right breast multiple pimples, red and swollen 08/04/18 19:03 Social Work Referral Routine Comment: Discharge planning Physician Instructions: Reason For Exam: Discahrge planning 08/04/18 19:26 Cardiology Consult Routine Comment: Consulting Provider: Oriana Richter Consulting Physician: Oriana Richter Reason for Consult: C/O palpitation, Positive trop 08/04/18 19:27 Hematology Oncology Consult Routine Comment: Consulting Provider: Kishore Ward Consulting Physician: Kishore Ward Reason for Consult: Breast and uteine CA 08/10/18 23:50 Radiology Consult Routine Comment: Consulting Provider: Isaac Mccollum Consulting Physician: Isaac Mccollum Reason for Consult: Thoracentesis, IVC filter Diagnosis - Discharge Diagnosis (1) SOB (shortness of breath) Status: Acute (2) Pleural effusion Status: Acute Priority: High (3) Anemia Status: Acute Priority: High (4) Pelvic mass Status: Acute Priority: High (5) Breast CA Status: Acute Priority: High (6) Troponin level elevated Status: Acute Priority: High (7) Elevated brain natriuretic peptide (BNP) level Status: Acute Priority: High (8) Leukocytosis Status: Acute Priority: High (9) Pericardial effusion Status: Acute Priority: Medium (10) DVT of lower extremity, bilateral Status: Acute (11) Pulmonary embolism on left Status: Acute (12) S/P thoracentesis Status: Acute Hospital Course - Lab Results Lab Results: Micro Results 08/11/18 12:00 Body Fluid - Pleural Fluid Gram Stain - Final 08/11/18 12:00 Body Fluid - Pleural Fluid Body Fluid Culture - Final No growth. 08/11/18 12:00 Pleural Fluid Anaerobic Culture - Final NO ANAEROBES ISOLATED. 08/08/18 10:29 Blood-Venous Blood Culture - Final NO GROWTH AFTER 5 DAYS 08/08/18 10:29 Blood-Venous Gram Stain - Final TEST NOT PERFORMED 08/08/18 10:29 Blood-Venous Blood Culture - Final NO GROWTH AFTER 5 DAYS 08/08/18 10:29 Blood-Venous Gram Stain - Final TEST NOT PERFORMED 08/11/18 12:00 Other: Please Indicate Mycobacterial Culture - Preliminary Most Recent Lab Values WBC 19.8 K/uL (4.8-10.8) H 08/15/18 09:50 RBC 4.04 Mil/uL (3.80-5.20) 08/15/18 09:50 Hgb 10.1 g/dL (12.0-16.0) L 08/15/18 09:50 Hct 32.6 % (34.0-47.0) L 08/15/18 09:50 MCV 80.9 fl (81.0-99.0) L D 08/15/18 09:50 MCH 25.0 pg (27.0-31.0) L 08/15/18 09:50 MCHC 30.9 g/dL (33.0-37.0) L 08/15/18 09:50 RDW 23.7 % (11.5-14.5) H 08/15/18 09:50 Plt Count 400 K/uL (130-400) 08/15/18 09:50 MPV 8.0 fl (7.2-11.7) 08/11/18 04:30 Neut % (Auto) 87.9 % (50.0-75.0) H 08/11/18 04:30 Lymph % (Auto) 6.1 % (20.0-40.0) L 08/11/18 04:30 [place] % (Auto) 5.4 % (0.0-10.0) 08/11/18 04:30 Eos % (Auto) 0.3 % (0.0-4.0) 08/11/18 04:30 Baso % (Auto) 0.3 % (0.0-2.0) 08/11/18 04:30 Neut # (Auto) 19.7 K/uL (1.8-7.0) H 08/11/18 04:30 Lymph # (Auto) 1.4 K/uL (1.0-4.3) 08/11/18 04:30 [place] # (Auto) 1.2 K/uL (0.0-0.8) H 08/11/18 04:30 Eos # (Auto) 0.1 K/uL (0.0-0.7) 08/11/18 04:30 Baso # (Auto) 0.1 K/uL (0.0-0.2) 08/11/18 04:30 Neutrophils % (Manual) 89 % (42-75) H 08/11/18 04:30 Band Neutrophils % 2 % (0-2) 08/04/18 11:53 Lymphocytes % (Manual) 7 % (20-50) L 08/11/18 04:30 Reactive Lymphs % 1 % (0-0) H 08/04/18 11:53 Monocytes % (Manual) 4 % (0-10) 08/11/18 04:30 Toxic Granulation Present 08/04/18 11:53 Platelet Estimate Normal (NORMAL) 08/11/18 04:30 Hypochromasia (manual) Slight 08/11/18 04:30 Poikilocytosis (manual Slight 08/11/18 04:30 Anisocytosis (manual) Slight 08/11/18 04:30 Tear Drop Cells Slight 08/04/18 11:53 Ovalocytes Slight 08/11/18 04:30 PT 13.1 Seconds (9.8-13.1) 08/15/18 15:25 INR 1.2 08/15/18 15:25 APTT 33.6 Seconds (25.6-37.1) 08/15/18 15:25 pCO2 35 mm/Hg (35-45) 08/14/18 16:10 pO2 95 mm/Hg (80-100) 08/14/18 16:10 HCO3 26.9 mmol/L (21-28) 08/14/18 16:10 ABG pH 7.48 (7.35-7.45) H 08/14/18 16:10 ABG Total CO2 27.2 mmol/L (22-28) 08/14/18 16:10 ABG O2 Saturation 99.6 % (95-98) H 08/14/18 16:10 ABG O2 Content 13.6 ML/dL (15-23) L 08/14/18 16:10 ABG Base Excess 2.6 mmol/L (-2.0-3.0) 08/14/18 16:10 ABG Hemoglobin 10.0 g/dL (11.7-17.4) L 08/14/18 16:10 ABG Carboxyhemoglobin 2.5 % (0.5-1.5) H 08/14/18 16:10 POC ABG HHb (Measured) 0.4 % (0.0-5.0) 08/14/18 16:10 ABG Methemoglobin 1.1 % (0.0-3.0) 08/14/18 16:10 ABG O2 Capacity 13.7 mL/dL (16-24) L 08/14/18 16:10 Frederic Test Yes 08/14/18 16:10 VBG pH 7.47 (7.32-7.43) H 08/04/18 11:31 VBG pCO2 39 mmHg (40-60) L 08/04/18 11:31 VBG HCO3 27.9 mmol/L 08/04/18 11:31 VBG Total CO2 29.6 mmol/L (22-28) H 08/04/18 11:31 VBG O2 Sat (Calc) 68.2 % (40-65) H 08/04/18 11:31 VBG Base Excess 4.4 mmol/L (0.0-2.0) H 08/04/18 11:31 VBG Potassium 5.6 mmol/L (3.6-5.2) H 08/04/18 11:31 A-a O2 Difference 111.0 mm/Hg 08/14/18 16:10 Hgb O2 Saturation 96.0 % (95.0-98.0) 08/14/18 16:10 Sodium 134.0 mmol/L (132-148) 08/04/18 11:31 Chloride 102.0 mmol/L (98-107) 08/04/18 11:31 Glucose 136 mg/dL (65-105) H 08/04/18 11:31 Lactate 3.1 mmol/L (0.7-2.1) H 08/04/18 11:31 Vent Mode Nasal cannula 08/10/18 14:02 FiO2 35.0 % 08/14/18 16:10 Sodium 138 mmol/l (132-148) 08/15/18 09:50 Potassium 3.6 MMOL/L (3.6-5.0) 08/15/18 09:50 Chloride 103 mmol/L (98-107) 08/15/18 09:50 Carbon Dioxide 28 mmol/L (22-30) 08/15/18 09:50 Anion Gap 11 (10-20) 08/15/18 09:50 BUN 18 mg/dl (7-17) H 08/15/18 09:50 Creatinine 1.0 mg/dl (0.7-1.2) 08/15/18 09:50 Est GFR ( Amer) > 60 08/15/18 09:50 Est GFR (Non-Af Amer) 57 08/15/18 09:50 POC Glucose (mg/dL) 137 mg/dL (65-110) H 08/18/18 05:40 Random Glucose 139 mg/dL (65-105) H 08/15/18 09:50 Calcium 8.4 mg/dL (8.4-10.2) 08/15/18 09:50 Magnesium 1.9 MG/DL (1.6-2.3) 08/06/18 06:15 RBC Magnesium 4.4 mg/dL (4.0-6.4) 08/06/18 06:15 Total Bilirubin 0.4 mg/dl (0.2-1.3) 08/11/18 04:30 AST 27 U/L (14-36) 08/11/18 04:30 ALT 20 U/L (9-52) 08/11/18 04:30 Alkaline Phosphatase 155 U/L (38-126) H D 08/11/18 04:30 Troponin I 0.8590 ng/mL (0.00-0.120) H* 08/06/18 06:15 NT-Pro-B Natriuret Pep 50217 pg/ml (0-900) H 08/06/18 06:15 Total Protein 6.1 G/DL (6.3-8.2) L 08/11/18 04:30 Albumin 2.7 g/dL (3.5-5.0) L 08/11/18 04:30 Globulin 3.4 gm/dL (2.2-3.9) 08/11/18 04:30 Albumin/Globulin Ratio 0.8 (1.0-2.1) L 08/11/18 04:30 Triglycerides 153 mg/DL (0-149) H D 08/05/18 05:41 Cholesterol 99 mg/dL (0-199) 08/05/18 05:41 LDL Cholesterol Direct 60 mg/dL (0-129) 08/05/18 05:41 HDL Cholesterol 20 MG/DL (30-70) L 08/05/18 05:41 Lipase 30 U/L (23-300) 08/04/18 11:53 Thyroxine (T4) 5.36 ug/dl (5.5-11.0) L 08/05/18 05:41 Total T3 0.683 nmol/L (1.49-2.60) L 08/05/18 05:41 TSH 3rd Generation 3.05 mIU/ML (0.46-4.68) 08/05/18 05:41 Venous Blood Potassium 5.6 mmol/L (3.6-5.2) H 08/04/18 11:31 Urine Color Yellow (YELLOW) 08/04/18 03:00 Urine Clarity Cloudy (Clear) 08/04/18 03:00 Urine pH 5.0 (5.0-8.0) 08/04/18 03:00 Ur Specific [place] 1.010 (1.003-1.030) 08/04/18 03:00 Urine Protein Negative mg/dL (NEGATIVE) 08/04/18 03:00 Urine Glucose (UA) Neg mg/dL (NEGATIVE) 08/04/18 03:00 Urine Ketones Negative mg/dL (NEGATIVE) 08/04/18 03:00 Urine Blood Negative (NEGATIVE) 08/04/18 03:00 Urine Nitrate Negative (NEGATIVE) 08/04/18 03:00 Urine Bilirubin Negative (NEGATIVE) 08/04/18 03:00 Urine Urobilinogen 0.2-1.0 mg/dL (0.2-1.0) 08/04/18 03:00 Ur Leukocyte Esterase Neg Vikas/uL (Negative) 08/04/18 03:00 Urine RBC (Auto) 5 /hpf (0-3) H 08/04/18 03:00 Urine Microscopic WBC 5 /hpf (0-5) 08/04/18 03:00 Ur Squamous Epith Cells 1 /hpf (0-5) 08/04/18 03:00 Fluid Source Pleural/thoracentesi 08/11/18 12:00 Fluid Appearance Bloody (CLEAR) 08/11/18 12:00 Fluid pH 6.4 08/11/18 12:00 Fluid pH Source Body fluid 08/11/18 12:00 Fluid WBC 828.0 /mm3 (0.0-300.0) H 08/11/18 12:00 Fluid RBC 26245.0 /mm3 (0.0-0.0) H 08/11/18 12:00 Fluid Tot Cell Count 100 (0-0) H 08/11/18 12:00 Fluid Neutrophils 51.0 % (0-0) H 08/11/18 12:00 Fluid Lymphocytes 35.0 % (0-0) H 08/11/18 12:00 Fld Monocyte/Macrophag 14 % (0-0) H 08/11/18 12:00 Fluid Glucose 118 mg/dL (NONE ESTABLISHED) 08/11/18 12:00 Fluid Total Protein 2.4 g/dL (NONE ESTABLISHED) 08/11/18 12:00 Fluid LDH 518 IU (NONE ESTABLISHED) 08/11/18 12:00 Fluid Comment Bloody 08/11/18 12:00 Vancomycin Trough 25.0 ug/mL (5.0-10.0) H 08/11/18 09:31 Random Vancomycin 14.2 ug/mL 08/12/18 06:15 Blood Type A POSITIVE 08/04/18 11:53 Antibody Screen Negative 08/04/18 11:53 Crossmatch See Detail 08/04/18 11:53 BBK History Checked Patient has bt 08/04/18 11:53 Discharge Exam - Head Exam Head Exam: ATRAUMATIC Discharge Plan - Discharge Medications Prescriptions: Furosemide [Lasix] 20 mg PO DAILY #30 tablet - Follow Up Plan Condition: GUARDED Disposition: REHAB FACILITY/REHAB UNIT Instructions: Heart Failure, Adult (DC), Anemia of Chronic Disease (DC), Breast Cancer (DC) Additional Instructions: discharge patient to [facility] under the care of Referrals: Kishore Ward MD [Staff Provider] - Yang Feliz MD [Staff Provider] - Oriana Richter MD [Staff Provider] -
== END 2018-08-18 15:30 | DRG 194 ==
LOC: H.ER 10:44 → H.ERHOLD 14:32 → H.TEL 17:09
PROVIDERS: ADMIT Internal Medicine Pulmonary Disease; ATTEND Internal Medicine Pulmonary Disease
PROC: 30233N1 Transfusion of Nonautologous Red Blood Cells into Peripheral Vein, Percutaneous Approach (ICD-10-PCS; 2018-08-04)
PROC: 0W993ZZ Drainage of Right Pleural Cavity, Percutaneous Approach (ICD-10-PCS; principal; 2018-08-11)
PROC: 05HN33Z Insertion of Infusion Device into Left Internal Jugular Vein, Percutaneous Approach (ICD-10-PCS; 2018-08-16)
PROC: B514ZZA Fluoroscopy of Left Jugular Veins, Guidance (ICD-10-PCS; 2018-08-16)
DX: I50.23 Acute on chronic systolic (congestive) heart failure (principal); I26.99 Other pulmonary embolism without acute cor pulmonale; I82.413 Acute embolism and thrombosis of femoral vein, bilateral; D68.8 Other specified coagulation defects; C77.3 Secondary and unspecified malignant neoplasm of axilla and upper limb lymph nodes; I31.3 Pericardial effusion (noninflammatory); C79.89 Secondary malignant neoplasm of other specified sites; E86.0 Dehydration; C50.911 Malignant neoplasm of unspecified site of right female breast; D50.8 Other iron deficiency anemias; D72.828 Other elevated white blood cell count; E87.6 Hypokalemia; E03.9 Hypothyroidism, unspecified; Z17.0 Estrogen receptor positive status [ER+]; F41.9 Anxiety disorder, unspecified; Z88.6 Allergy status to analgesic agent

== ENCOUNTER 2018-08-29 07:49 | Inpatient (IN) | payer MEDICAID, OTHER ==
--- NOTE | 2018-08-29 09:09 | ED PDOC ---
HPI: SOB/CHF/COPD Additional Complaint(s): Pt is a 58 y/o female with Stage IV Metastatic Breast Ca (recently diagnosed 4 months ago w/ mets to lung), Pelvic mass, hx of PE/DVT (on Coumadin), Pleural effusion (s/p thoracentesis in recent admission 2 weeks ago w/ ~700cc of fluid removed), presenting to ED from home with worsening SOB for the past 3 weeks and worsening abdominal distension. States she was at [facility] and was sent home but was not sure how to use her BP machine so she did not take her medication (including Lasix). Reports that she uses O2 at home. Denies chest pain, abdominal pain, fever/chills, calf pain, recent illness. Mother at bedside. ROS: + generalized weakness + LE Edema Oncologist: Dr. Ward, PT states she was supposed to start receiving chemotherapy yesterday but missed appt <Srinivas Sandoval - Last Filed: 08/29/18 17:32> <Graeme Parra - Last Filed: 08/30/18 07:19> Time Seen by Provider: 08/29/18 08:05 Chief Complaint (Nursing): Shortness Of Breath Supervising Attending Note - Supervising Attending Note The Documented history was done by the: Physician Wood Buffer, Attending Physician The documented physical exam was done by the: Physician Wood Buffer, Attending Physician The documented procedures were done by the: Physician Wood Buffer, Attending Physician - Attestation: I have personally seen and examined this patient.: Yes I have fully participated in the care of the patient.: Yes I have reviewed all pertinent clinical information, including history, physical exam and plan: Yes <Graeme Parra - Last Filed: 08/30/18 07:19> Past Medical History Reviewed: Historical Data, Nursing Documentation, Vital Signs Vital Signs: Last Vital Signs Temp 98.4 F 08/29/18 08:11 Pulse 117 H 08/29/18 08:26 Resp 22 08/29/18 08:49 BP 95/70 L 08/29/18 08:26 Pulse Ox 98 08/29/18 08:26 - Medical History PMH: Anemia, Anxiety, Deep Vein Thrombosis, Malignancy, Pulmonary Embolism Denies: Arthritis, HIV, Chronic Kidney Disease - Surgical History Surgical History: - Family History Family History: States: Unknown Family Hx <JaimeSrinivas - Last Filed: 08/29/18 17:32> Reviewed: Historical Data Vital Signs: Last Vital Signs Temp 97.3 F L 08/30/18 05:00 Pulse 99 H 08/30/18 05:00 Resp 18 08/30/18 05:00 BP 92/57 L 08/30/18 05:00 Pulse Ox 94 L 08/30/18 05:00 <Graeme Parra - Last Filed: 08/30/18 07:19> - Home Medications Home Medications: Ambulatory Orders Medication Instructions Recorded RX: Multivit/Folic Acid/Vit K1 1 tab PO DAILY 08/04/18 [One-A-Day Women's 50 Plus Tab] RX: Apixaban [Eliquis] 5 mg PO BID tab 08/18/18 RX: Metoprolol Tartrate [Lopressor] 12.5 mg PO Q6 tab 08/18/18 Ferrous Gluconate 324 mg PO BID 08/29/18 Furosemide [Lasix] 20 mg PO BID 08/29/18 RX: Tamoxifen Citrate 20 mg PO DAILY 08/29/18 - Allergies Allergies/Adverse Reactions: Allergies Allergy/AdvReac Type Severity Reaction Status Date / Time acetaminophen [From Tylenol] AdvReac Unknown SHORTNESS Verified 08/29/18 08:11 OF BREATH Curb-65 Severity Score - CURB-65 Severity Score Confusion: No Curb-65 Score: 0 Percentage 30-day mortality: 0.6% <JaimeSrinivas - Last Filed: 08/29/18 17:32> Wells Criteria for PE - Wells Criteria for Pulmonary Embolism Clinical Signs and Symptoms of DVT: Yes P.E is #1 Diagnosis, or Equally Likely: No Heart Rate >100: No Immobilization at least 3 days;Surgery previous 4 weeks: No Previous, objectively diagnosed PE or DVT: No Hemoptysis: No Malignancy w/treatment within 6 months, or palliative: No Total Score: 3 <Graeme Parra Last Filed: 08/30/18 07:19> Review of Systems Constitutional: Positive for: Weakness. Negative for: Fever, Chills Cardiovascular: Negative for: Chest Pain, Palpitations Respiratory: Positive for: Shortness of Breath. Negative for: Cough, Hemo ptysis, Wheezing Gastrointestinal: Negative for: Nausea, Vomiting, Abdominal Pain, Diarrhea, Melena Genitourinary Female: Negative for: Dysuria Neurological: Positive for: Weakness. Negative for: Numbness, Incoordination, Change in Speech, Confusion, Seizures, Altered Mental Status, Headache <Srinivas Sandoval - Last Filed: 08/29/18 17:32> ROS Statement: Except As Marked, All Systems Reviewed And Found Negative <Graeme Parra - Last Filed: 08/30/18 07:19> Physical Exam - Physical Exam Appears: Positive for: No Acute Distress (Cachectic, frail, disheveled female) Skin: Positive for: Normal Color. Negative for: Diaphoresis Respiratory: Positive for: Decreased Breath Sounds, Crackles (BL mid lung bases). Negative for: Accessory Muscle Use (can speak in full sentences but pauses occasionally to catch breath), Stridor, Wheezing, Respiratory Distress Pulses-Carotid (L): 2+ Pulses-Carotid (R): 2+ Pulses-Femoral (L): 2+ Pulses-Femoral (R): 2+ Gastrointestinal/Abdominal: Positive for: Organomegaly, Distended, Asicites (MOderate/severe asicites, tense, non tendern). Negative for: Soft, Tenderness, Guarding Extremity: Positive for: Pedal Edema (BL +3 up to knees, mild erythema posterior right calf) Neurologic/Psych: Positive for: Alert (lethargic ), Oriented. Negative for: Motor/Sensory Deficits Comments: BREAST EXAM: Significant diffuse ulcerating, crusted and fungating masses in right lower breast w/ auxillary lymphadenopathy, Probation Officer Leesa CALLAHAN. <Srinivas Sandoval - Last Filed: 08/29/18 17:32> - Reviewed Nursing Documentation Reviewed: Yes Vital Signs Reviewed: Yes <Graeme Parra - Last Filed: 08/30/18 07:19> - Laboratory Results Result Diagrams: 08/29/18 09:00 08/29/18 11:32 - ECG O2 Sat by Pulse Oximetry: 98 <Srinivas Sandoval - Last Filed: 08/29/18 17:32> - Laboratory Results Result Diagrams: 08/30/18 04:35 08/30/18 04:35 Lab Results: pO2 41 mm/Hg (30-55) 08/29/18 11:58 VBG pH 7.44 (7.32-7.43) H 08/29/18 11:58 VBG pCO2 47 mmHg (40-60) 08/29/18 11:58 VBG HCO3 29.6 mmol/L 08/29/18 11:58 VBG Total CO2 33.3 mmol/L (22-28) H 08/29/18 11:58 VBG O2 Sat (Calc) 80.6 % (40-65) H 08/29/18 11:58 VBG Base Excess 6.6 mmol/L (0.0-2.0) H 08/29/18 11:58 VBG Potassium 6.5 mmol/L (3.6-5.2) H* 08/29/18 11:58 Sodium 127.0 mmol/L (132-148) L 08/29/18 11:58 Chloride 95.0 mmol/L (98-107) L 08/29/18 11:58 Glucose 100 mg/dL (65-105) 08/29/18 11:58 Lactate 1.9 mmol/L (0.7-2.1) 08/29/18 11:58 FiO2 21.0 % 08/29/18 11:58 Crit Value Called To Graeme parra md 08/29/18 11:58 Crit Value Called By [id number] 08/29/18 11:58 Crit Value Read Back Y 08/29/18 11:58 Blood Gas Notified Time 1202 08/29/18 11:58 PT 15.4 Seconds (9.8-13.1) H 08/29/18 09:00 INR 1.4 08/29/18 09:00 APTT 26.6 Seconds (25.6-37.1) 08/29/18 09:00 Troponin I 0.0630 ng/mL (0.00-0.120) 08/29/18 11:32 NT-Pro-B Natriuret Pep 58109 pg/ml (0-900) H 08/29/18 11:32 Total Bilirubin 0.9 mg/dl (0.2-1.3) 08/30/18 04:35 AST 61 U/L (14-36) H D 08/30/18 04:35 ALT 9 U/L (9-52) D 08/30/18 04:35 Alkaline Phosphatase 177 U/L (38-126) H 08/30/18 04:35 Total Protein 6.4 G/DL (6.3-8.2) 08/30/18 04:35 Albumin 2.7 g/dL (3.5-5.0) L 08/30/18 04:35 Globulin 3.7 gm/dL (2.2-3.9) 08/30/18 04:35 Albumin/Globulin Ratio 0.7 (1.0-2.1) L 08/30/18 04:35 <Graeme Parra A - Last Filed: 08/30/18 07:19> Medical Decision Making Medical Decision Making: SOB with new onset ascites. Hx of Metastatic Breast Ca w/ pleural effusion and pelvic mass- both malignant in pathology review. Likely malignant ascites. Will need therapeutic and diagnostic paracentesis. Oxygen via Nasal Canula 3L CBC CMP ProBMP Coags EKG: LVH no ischemic changes Cxray Abdomen/Pelvis CT w/o contrast Venous duplex R. Lower extremity Echo IR Abdominal Paracentesis Leukocytosis 33, RLL infiltrate on Cxray-- Bcx, Vanco and Zosyn x1 given Dr. Ward made aware Pt re-assessed 1-2 hours after arrival, states sob is slightly improved while on O2 nasal cannula. Pt appears comfortable, sitting up in bed with family at bedside. No signs of respiratory distress. <Srinivas Sandoval - Last Filed: 08/29/18 17:32> Disposition - Patient ED Disposition Is Patient to be Admitted: Yes - Disposition Disposition Time: 15:00 <Srinivas Sandoval - Last Filed: 08/29/18 17:32> - Patient ED Disposition Is Patient to be Admitted: Yes Discussed With : Kristen Norris Doctor Will See Patient In The: Hospital Counseled Patient/Family Regarding: Studies Performed, Diagnosis - Disposition Disposition Time: 11:00 - Pt Status Changed To: Hospital Disposition Of: Inpatient - Admit Certification Admit to Inpatient:: After my assessment, the patient will require hospitali zation for at least two midnights. This is because of the severity of symptoms shown, intensity of services needed, and/or the medical risk in this patient being treated as an outpatient. - POA Present On Arrival: None <Graeme Parra - Last Filed: 08/30/18 07:19> - Clinical Impression Clinical Impression: Dyspnea, Metastatic cancer to axillary lymph nodes, Pleural effusion, DVT of lower extremity, bilateral, Adnexal mass, Congestive heart failure (CHF), Anemia, Ascites, Hyperkalemia - Disposition Condition: FAIR
[2018-08-29 09:14] LABS: BASO # 0.1 K/uL (0.0-0.2); BASO % 0.2 % (0.0-2.0); EOS # 0.1 K/uL (0.0-0.7); EOS % 0.2 % (0.0-4.0); HEMOGLOBIN 8.8 g/dL (12.0-16.0); MEAN CELL VOLUME 80.8 fl (81.0-99.0); MEAN CORPUSCULAR HEMOGLOBIN 25.5 pg (27.0-31.0); MEAN CORPUSCULAR HGB CONC 31.5 g/dL (33.0-37.0); MEAN PLATELET VOLUME 8.2 fl (7.2-11.7); MONO # 1.3 K/uL (0.0-0.8); NEUT # 30.6 K/uL (1.8-7.0); NEUT % 92.6 % (50.0-75.0); PLATELET COUNT 302 K/uL (130-400); RBC 3.44 Mil/uL (3.80-5.20)
[2018-08-29 09:20] LABS: INR 1.4; PROTHROMBIN TIME 15.4 Seconds (9.8-13.1)
[2018-08-29 09:23] LABS: PARTIAL THROMBOPLASTIN TIME 26.6 Seconds (25.6-37.1)
[2018-08-29] MEDS ORDERED: Piperacillin/Tazobact 3.375 GM in Sodium Chloride 0.9% 100 ML IVPB STA (10:23)
[2018-08-29] MEDS ORDERED: Piperacillin/Tazobact 3.375 gm Inj IVPB ONE (11:36)
[2018-08-29 11:39] LABS: ANISOCYTOSIS MARKED; HYPOCHROMIC MODERATE; LARGE PLATELETS PRESENT; LYMPHOCYTE 5 % (20-50); MONOCYTE 2 % (0-10); NEUTROPHIL 93 % (42-75); PLATELET ESTIMATE NORMAL (NORMAL); TEARDROP CELLS SLIGHT; TOTAL CELLS COUNTED 100
--- NOTE | 2018-08-29 11:56 | US ---
Date of service: 08/29/2018 PROCEDURE: Bilateral lower extremity venous duplex Doppler. HISTORY: LE edema, rule out DVT COMPARISON: None available. TECHNIQUE: Bilateral common femoral, superficial femoral, popliteal and posterior tibial veins were evaluated. Flow was assessed with color Doppler, compressibility, assessment of phasic flow and augmentation response. FINDINGS: COMMON FEMORAL VEIN: Right CFV: There is a partially compressible nonocclusive thrombus. Left CFV: There is a partially compressible nonocclusive thrombus. SUPERFICIAL FEMORAL VEIN: Right SFV: Unremarkable. Left SFV: Unremarkable. POPLITEAL VEIN: Right Popliteal: Unremarkable. Left Popliteal: Unremarkable. POSTERIOR TIBIAL VEIN: Right PTV: Unremarkable. Left PTV: Unremarkable. OTHER FINDINGS: There is redemonstration of loss of compressibility of right gastrocnemius vein at the level of the popliteal vein. There is diffuse subcutaneous edema in the calves. IMPRESSION: 1. 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 2. Incompressibility of the right gastrocnemius vein.
[2018-08-29 12:02] LABS: VENOUS BLOOD GAS BASE EXCESS 6.6 mmol/L (0.0-2.0); VENOUS BLOOD GAS PCO2 47 mmHg (40-60); VENOUS BLOOD GAS PO2 41 mm/Hg (30-55); VENOUS BLOOD PH 7.44 (7.32-7.43)
[2018-08-29 12:11] LABS: TROPONIN I 0.063 ng/mL (0.00-0.120)
[2018-08-29 12:21] LABS: ALB/GLOB RATIO 0.8 (1.0-2.1); CALCIUM 8.7 mg/dL (8.4-10.2)
[2018-08-29] MEDS ORDERED: Insulin Regular 100 units/ml IV ONE (12:49)
[2018-08-29] MEDS ORDERED: Calcium Gluconate 4.65 mEq/10 ml Inj IV STA (12:54)
[2018-08-29] MEDS ORDERED: Dextrose 50% SYRINGE Inj (50 ml) IVP STA (12:54)
[2018-08-29] MEDS ORDERED: Albuterol 0.083% Inhal Sol (2.5 mg/3 mL) UD INH STA ×2 (12:54→21:57)
--- NOTE | 2018-08-29 13:06 | CT ---
Date of service: 08/29/2018 PROCEDURE: CT Abdomen and Pelvis without intravenous contrast HISTORY: ascites COMPARISON: 07/06/2018. TECHNIQUE: CT scan of the abdomen and pelvis was performed without administration of intravenous contrast. Oral contrast was not administered. Coronal and sagittal reformatted images were obtained. . Radiation dose: Total exam DLP = 698.88 mGy-cm. This CT exam was performed using one or more of the following dose reduction techniques: Automated exposure control, adjustment of the mA and/or kV according to patient size, and/or use of iterative reconstruction technique. FINDINGS: LOWER THORAX: There are moderate pleural effusions with compressive atelectasis of the lower lobes. There is multifocal subsegmental atelectasis in the visualized lungs. There is worsening nodular thickening and asymmetric enlargement of the right breast. There is diffuse subcutaneous edema in the right breast. There is also parenchymal lobular densities in the right breast. LIVER: Normal in size. No intrahepatic ductal dilatation. GALLBLADDER AND BILE DUCTS: The gallbladder is distended. Multiple peripherally calcified gallstones. No wall thickening. PANCREAS: Normal in size. No ductal dilatation. SPLEEN: Mild splenomegaly. ADRENALS: Normal in size. No discrete nodule. KIDNEYS AND URETERS: Normal in size without nephrolithiasis. No hydronephrosis. VASCULATURE: No aortic aneurysm. There are mild aortic atherosclerotic calcifications present. BOWEL: The small bowel loops are normal in caliber. The colon is normal in size. No bowel dilatation or wall thickening. No bowel obstruction. APPENDIX: No inflammatory changes in the right lower quadrant. PERITONEUM: Large abdominal and pelvic ascites. No free air. Again seen are multiple high attenuation masses in the mesentery. LYMPH NODES: Redemonstration of bilateral subcentimeter pelvic sidewall nodes. BLADDER: Well distended and grossly normal in appearance. REPRODUCTIVE: There is interval increase in size of large predominantly cystic mass in the left lower quadrant which now measures 20.0 x 21.7 cm. There are peripheral and central high attenuation areas within the mass. Redemonstration of an enlarged abnormal uterus with a large fundal mass. BONES: No acute fracture. OTHER FINDINGS: There is severe diffuse anasarca. IMPRESSION: 1. Examination is limited in the absence of intravenous and oral contrast. Interval increase in size of large predominantly cystic mass in the left lower quadrant with central and peripheral high density areas suspicious for malignancy, redemonstration of large indeterminate fundal mass in the uterus, and redemonstration of a mesenteric deposits. 2. Large abdominal and pelvic ascites. Moderate bilateral pleural effusions. 3. Cholelithiasis.
[2018-08-29] MEDS ORDERED: Insulin Regular 100 units/ml ONE (13:14)
[2018-08-29] MEDS ORDERED: Dextrose 50% SYRINGE Inj (50 ml) ONE (13:15)
[2018-08-29] MEDS ORDERED: Calcium Gluconate 4.6 MEQ in Sodium Chloride 0.9% 100 ML IV ONE (13:15)
[2018-08-29] MEDS ORDERED: Vancomycin 1 g Inj ONE (13:50)
--- NOTE | 2018-08-29 14:17 | RAD ---
Date of service: 08/29/2018 HISTORY: SOB COMPARISON: Portable chest 08/14/2018. FINDINGS: LUNGS: Interval left MediPort insertion is noted via an apparent left internal jugular approach with tip terminating at the distal superior vena cava. Overall inspiratory volume is slightly improved but scattered infiltrates remain at the mid to inferior lung zones bilaterally, left greater than right. Right hemidiaphragm elevation is again evident. PLEURA: Trace left pleural effusion not excluded. None is identified at the right in the interval. CARDIOVASCULAR: No aortic atherosclerotic calcification present. Stable cardiac size. No pulmonary vascular congestion. OSSEOUS STRUCTURES: No significant abnormalities. VISUALIZED UPPER ABDOMEN: Normal. OTHER FINDINGS: None. IMPRESSION: Interval left MediPort in good apparent position with scattered bilateral infiltrates identified bilaterally. Trace left pleural effusion not excluded.
[2018-08-29] MEDS ORDERED: Lidocaine 1% Inj (20ml) ONE (14:40)
--- NOTE | 2018-08-29 15:03 | PCM.SURG1 ---
Surgeon's Initial Post Op Note - Surgeon's Notes Surgeon: Serg Pires MD Dyeing Machine Back Tender: NONE Type of Anesthesia: Local Pre-Operative Diagnosis: Metastatic breast cancer, ascites Operative Findings: US showed large amount of ascites Post-Operative Diagnosis: Metastatic breast cancer, ascites Operation Performed: US guided paracentesis Specimen/Specimens Removed: 2500 cc of serosanguinous fluid Estimated Blood Loss: EBL {In ML}: 0 Blood Products Given: N/A Drains Used: No Drains Post-Op Condition: Fair Date of Surgery/Procedure: 08/29/18 Time of Surgery/Procedure: 15:00
--- NOTE | 2018-08-29 15:08 | US ---
Date of Procedure: 08/29/2018 PROCEDURE: Ultrasound-guided paracentesis, CPT 47363 Medications: 7 cc 1% Lidocaine HISTORY: Ascites, abdominal pain, metastatic breast cancer TECHNIQUE: Following informed consent , the patient was placed supine on the stretcher and the site was marked. A limited abdominal ultrasound was performed that showed a large amount of intra-abdominal fluid. Procedural time out was called and the Pt's abdomen was marked and prepped and draped in the usual sterile fashion. Ultrasound-guided large volume paracentesis performed. A total of 2.5 liters of serosanguinous fluid was removed without complication. IMPRESSION: Ultrasound-guided large volume paracentesis.
[2018-08-29] MEDS ORDERED: Albuterol 0.083% Inhal Sol (2.5 mg/3 mL) UD ONE (16:40)
--- NOTE | 2018-08-29 17:39 | CP.PCM.HP ---
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 The patient is awaiting chemotherapy treatment for her cancer. She notes to breathing better and less abdominal pain after her Paracentesis. She is hopeful she will improve with chemotherapy. She has declined hospice and wants to try chemotherapy. Patient's mother and brother at the bedside, and all understand the poor prognosis associated with her condition. In the ER she was found to be in renal failure, fluid overload, leukocytosis and hyperkalemia. She was treated with cocktail for the Hyperkale jaylan and admitted with impression of possible sepsis, hyperkalemia and fluid overload. She received a dose of Vancomycin and Zosyn. Present on Admission - Present on Admission Any Indicators Present on Admission: No Review of Systems - Review of Systems All systems: reviewed and no additional remarkable complaints except Review of Systems: as per HPI Past Patient History - Past Medical History & Family History Past Medical History?: Yes Past Family History: Reviewed and not pertinent - Past Social History Smoking Status: Never Smoked Alcohol: None Drugs: Denies - CARDIAC Hx Cardiac Disorders: Yes Hx Heart Murmur: Yes (childhood) - PULMONARY Hx Pulmonary Embolism: Yes - NEUROLOGICAL Hx Neurological Disorder: No - HEENT Hx HEENT Problems: No - RENAL Hx Chronic Kidney Disease: No - ENDOCRINE/METABOLIC Hx Endocrine Disorders: No - HEMATOLOGICAL/ONCOLOGICAL Hx Anemia: Yes Hx Human Immunodeficiency Virus (HIV): No - INTEGUMENTARY Hx Dermatological Problems: No - MUSCULOSKELETAL/RHEUMATOLOGICAL Hx Arthritis: No - GASTROINTESTINAL Hx Gastrointestinal Disorders: No - GENITOURINARY/GYNECOLOGICAL Hx Genitourinary Disorders: No - PSYCHIATRIC Hx Anxiety: Yes - SURGICAL HISTORY Hx Surgeries: Yes Hx Section: Yes Other/Comment: right breast bx - ANESTHESIA Hx Anesthesia: Yes Hx Anesthesia Reactions: No Hx Malignant Hyperthermia: No Meds Home Medications: Home Medication List Medication Instructions Recorded Confirmed Type Sodium Bicarbonate Tab 650 mg PO BID #14 tab 08/30/18 Rx levoFLOXacin [Levaquin] 500 mg PO DAILY #7 tab 08/31/18 Rx Allergies/Adverse Reactions: Allergies Allergy/AdvReac Type Severity Reaction Status Date / Time acetaminophen [From Tylenol] AdvReac Unknown SHORTNESS Verified 08/29/18 08:11 OF BREATH Physical Exam - Constitutional Appears: No Acute Distress, Older Than Stated Age, Chronically Ill - Head Exam Head Exam: ATRAUMATIC, NORMAL INSPECTION, NORMOCEPHALIC - Eye Exam Eye Exam: EOMI, Normal appearance, PERRL Pupil Exam: NORMAL ACCOMODATION, PERRL - ENT Exam ENT Exam: Mucous Membranes Moist, Normal Exam - Neck Exam Neck exam: Positive for: Full Rom, Normal Inspection - Respiratory Exam Respiratory Exam: Clear to Auscultation Bilateral, NORMAL BREATHING PATTERN - Cardiovascular Exam Cardiovascular Exam: REGULAR RHYTHM, +S1, +S2 - GI/Abdominal Exam GI & Abdominal Exam: Distended, Normal Bowel Sounds, Rebound. absent: Tenderness - Extremities Exam Extremities exam: Positive for: normal capillary refill, pedal edema (+++), tenderness (+rashes.) - Back Exam Back exam: NORMAL INSPECTION - Neurological Exam Neurological exam: Alert, CN II-XII Intact, Normal Gait, Oriented x3, Reflexes Normal - Psychiatric Exam Psychiatric exam: Normal Affect, Normal Mood - Skin Skin Exam: Dry, Intact, Normal Color, Warm Results - Vital Signs Recent Vital Signs: Last Vital Signs Temp 98.2 F 08/29/18 15:10 Pulse 111 H 08/29/18 15:10 Resp 18 08/29/18 15:10 BP 107/57 L 08/29/18 15:10 Pulse Ox 98 08/29/18 17:33 - Labs Result Diagrams: 08/31/18 04:35 08/31/18 04:35 Labs: Laboratory Results - last 24 hr 08/29/18 08/29/18 08/29/18 09:00 09:00 11:32 WBC 33.0 H D RBC 3.44 L Hgb 8.8 L Hct 27.8 L MCV 80.8 L MCH 25.5 L MCHC 31.5 L RDW 26.0 H Plt Count 302 MPV 8.2 Neut % (Auto) 92.6 H Lymph % (Auto) 3.0 L Yell % (Auto) 4.0 Eos % (Auto) 0.2 Baso % (Auto) 0.2 Neut # (Auto) 30.6 H Lymph # (Auto) 1.0 Yell # (Auto) 1.3 H Eos # (Auto) 0.1 Baso # (Auto) 0.1 Neutrophils % (Manual) 93 H Lymphocytes % (Manual) 5 L Monocytes % (Manual) 2 Platelet Estimate Normal Large Platelets Present Hypochromasia (manual) Moderate Anisocytosis (manual) Marked Tear Drop Cells Slight PT 15.4 H INR 1.4 APTT 26.6 pO2 VBG pH VBG pCO2 VBG HCO3 VBG Total CO2 VBG O2 Sat (Calc) VBG Base Excess VBG Potassium Glucose Lactate FiO2 Crit Value Called To Crit Value Called By Crit Value Read Back Blood Gas Notified Time Sodium 130 L Potassium 6.5 H* D Chloride 89 L Carbon Dioxide 29 Anion Gap 19 BUN 40 H Creatinine 1.5 H Est GFR ( Amer) 43 Est GFR (Non-Af Amer) 35 Random Glucose 103 Calcium 8.7 Phosphorus 5.2 H Magnesium 2.6 H Total Bilirubin 0.5 AST 35 ALT 21 Alkaline Phosphatase 164 H Troponin I 0.0630 NT-Pro-B Natriuret Pep 82323 H Total Protein 6.5 Albumin 3.0 L Globulin 3.6 Albumin/Globulin Ratio 0.8 L Venous Blood Potassium 08/29/18 11:58 WBC RBC Hgb Hct MCV MCH MCHC RDW Plt Count MPV Neut % (Auto) Lymph % (Auto) Yell % (Auto) Eos % (Auto) Baso % (Auto) Neut # (Auto) Lymph # (Auto) Yell # (Auto) Eos # (Auto) Baso # (Auto) Neutrophils % (Manual) Lymphocytes % (Manual) Monocytes % (Manual) Platelet Estimate Large Platelets Hypochromasia (manual) Anisocytosis (manual) Tear Drop Cells PT INR APTT pO2 41 VBG pH 7.44 H VBG pCO2 47 VBG HCO3 29.6 VBG Total CO2 33.3 H VBG O2 Sat (Calc) 80.6 H VBG Base Excess 6.6 H VBG Potassium 6.5 H* Glucose 100 Lactate 1.9 FiO2 21.0 Crit Value Called To Graeme parra md Crit Value Called By 6075 Crit Value Read Back Y Blood Gas Notified Time 1202 Sodium 127.0 L Potassium Chloride 95.0 L Carbon Dioxide Anion Gap BUN Creatinine Est GFR ( Amer) Est GFR (Non-Af Amer) Random Glucose Calcium Phosphorus Magnesium Total Bilirubin AST ALT Alkaline Phosphatase Troponin I NT-Pro-B Natriuret Pep Total Protein Albumin Globulin Albumin/Globulin Ratio Venous Blood Potassium 6.5 H* - EKG Data EKG Interpreted by: Myself EKG shows normal: Sinus rhythm Rate: Tachycardia - Imaging and Cardiology CT abdomen/Plevis; Status: Report reviewed by me Additional comment: Date of service: 08/29/2018 PROCEDURE: CT Abdomen and Pelvis without intravenous contrast HISTORY: ascites COMPARISON: 07/06/2018. TECHNIQUE: CT scan of the abdomen and pelvis was performed without administration of intravenous contrast. Oral contrast was not administered. Coronal and sagittal reformatted images were obtained. . Radiation dose: Total exam DLP = 698.88 mGy-cm. This CT exam was performed using one or more of the following dose reduction techniques: Automated exposure control, adjustment of the mA and/or kV according to patient size, and/or use of iterative reconstruction technique. FINDINGS: LOWER THORAX: There are moderate pleural effusions with compressive atelectasis of the lower lobes. There is multifocal subsegmental atelectasis in the visualized lungs. There is worsening nodular thickening and asymmetric enlargement of the right breast. There is diffuse subcutaneous edema in the right breast. There is also parenchymal lobular densities in the right breast. LIVER: Normal in size. No intrahepatic ductal dilatation. GALLBLADDER AND BILE DUCTS: The gallbladder is distended. Multiple peripherally calcified gallstones. No wall thickening. PANCREAS: Normal in size. No ductal dilatation. SPLEEN: Mild splenomegaly. ADRENALS: Normal in size. No discrete nodule. KIDNEYS AND URETERS: Normal in size without nephrolithiasis. No hydronephrosis. VASCULATURE: No aortic aneurysm. There are mild aortic atherosclerotic calcifications pres ent. BOWEL: The small bowel loops are normal in caliber. The colon is normal in size. No bowel dilatation or wall thickening. No bowel obstruction. APPENDIX: No inflammatory changes in the right lower quadrant. PERITONEUM: Large abdominal and pelvic ascites. No free air. Again seen are multiple high attenuation masses in the mesentery. LYMPH NODES: Redemonstration of bilateral subcentimeter pelvic sidewall nodes. BLADDER: Well distended and grossly normal in appearance. REPRODUCTIVE: There is interval increase in size of large predominantly cystic mass in the left lower quadrant which now measures 20.0 x 21.7 cm. There are peripheral and central high attenuation areas within the mass. Redemonstration of an enlarged abnormal uterus with a large fundal mass. BONES: No acute fracture. OTHER FINDINGS: There is severe diffuse anasarca. IMPRESSION: 1. Examination is limited in the absence of intravenous and oral contrast. Interval increase in size of large predominantly cystic mass in the left lower quadrant with central and peripheral high density areas suspicious for malignancy, redemonstration of large indeterminate fundal mass in the uterus, and redemonstration of a mesenteric deposits. 2. Large abdominal and pelvic ascites. Moderate bilateral pleural effusions. 3. Cholelithiasis. Chest x-ray Status: Report reviewed by me Additional comment: Date of service: 08/29/2018 HISTORY: SOB COMPARISON: Portable chest 08/14/2018. FINDINGS: LUNGS: Interval left MediPort insertion is noted via an apparent left internal jugular approach with tip terminating at the distal superior vena cava. Overall inspiratory volume is slightly improved but scattered infiltrates remain at the mid to inferior lung zones bilaterally, left greater than right. Right hemidiaphragm elevation is again evident. PLEURA: Trace left pleural effusion not excluded. None is identified at the right in the interval. CARDIOVASCULAR: No aortic atherosclerotic calcification present. Stable cardiac size. No pulmonary vascular congestion. OSSEOUS STRUCTURES: No significant abnormalities. VISUALIZED UPPER ABDOMEN: Normal. OTHER FINDINGS: None. IMPRESSION: Interval left MediPort in good apparent position with scattered bilateral infiltrates identified bilaterally. Trace left pleural effusion not excluded. US - abdomen Status: Report reviewed by me Additional comment: Date of service: 08/29/2018 PROCEDURE: Bilateral lower extremity venous duplex Doppler. HISTORY: LE edema, rule out DVT COMPARISON: None available. TECHNIQUE: Bilateral common femoral, superficial femoral, popliteal and posterior tibial veins were evaluated. Flow was assessed with color Doppler, compressibility, assessment of phasic flow and augmentation response. FINDINGS: COMMON FEMORAL VEIN: Right CFV: There is a partially compressible nonocclusive thrombus. Left CFV: There is a partially compressible nonocclusive thrombus. SUPERFICIAL FEMORAL VEIN: Right SFV: Unremarkable. Left SFV: Unremarkable. POPLITEAL VEIN: Right Popliteal: Unremarkable. Left Popliteal: Unremarkable. POSTERIOR TIBIAL VEIN: Right PTV: Unremarkable. Left PTV: Unremarkable. OTHER FINDINGS: There is redemonstration of loss of compressibility of right gastrocnemius vein at the level of the popliteal vein. There is diffuse subcutaneous edema in the calves. IMPRESSION: 1. 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 2. Incompressibility of the right gastrocnemius vein. Assessment & Plan (1) Anasarca Status: Acute Priority: High (2) Sepsis Status: Acute Priority: High (3) Ascites Status: Acute (4) Adnexal mass Status: Acute Priority: High (5) DVT of lower extremity, bilateral Status: Acute Priority: High (6) Dyspnea Status: Acute Priority: High (7) Malignant pleural effusion Status: Acute Priority: High (8) Pleural effusion Status: Acute Priority: High (9) Coagulopathy Status: Acute (10) Breast CA Assessment and Plan: Stage IV Breast Cancer Status: Acute Priority: High - Assessment and Plan (Free Text) Plan: S/P Treatment for Hyperkalemia IV Vancomycin and Zosyn C/W Eliquis, Tamoxefen, Lasix and Aldactone Blood and Urine Culture ID and Oncology Consult IVF Repeat BMP TTE- Pending
[2018-08-29] MEDS ORDERED: Sodium Chloride 0.45% 1,000 ML IV SCH (19:00)
--- NOTE | 2018-08-29 20:32 | CARD ---
APPROVED REPORT Date of service: 08/29/2018 EKG Measurement Heart [id number] <Conclusion> Sinus tachycardia Minimal voltage criteria for LVH, may be normal variant T wave abnormality, consider lateral ischemia Abnormal ECG
--- NOTE | 2018-08-29 20:56 | CARD ---
APPROVED REPORT Date of service: 08/29/2018 EXAM: Two-dimensional and M-mode echocardiogram with Doppler and color Doppler. Other Information Quality : ExcellentRhythm : Tachycardia INDICATION LV Function:SystolicDiastolic 2D DIMENSIONS IVSd0.85 (0.7-1.1cm)LVDd5.49 (3.9-5.9cm) LVOT Diameter1.50 (1.8-2.4cm)PWd0.81 (0.7-1.1cm) IVSs0.71 (0.8-1.2cm)LVDs5.10 (2.5-4.0cm) FS (%) 7.2 %PWs0.90 (0.8-1.2cm) M-Mode DIMENSIONS Left Atrium (MM)4.82 (2.5-4.0cm)IVSd0.91 (0.7-1.1cm) Aortic Root2.79 (2.2-3.7cm)LVDd7.03 (4.0-5.6cm) Aortic Cusp Exc.1.82 (1.5-2.0cm)PWd1.00 (0.7-1.1cm) IVSs1.00 cmFS (%) 29 % LVDs5.00 (2.0-3.8cm)PWs1.53 cm Aortic Valve AoV Peak Kzmkpdej439.6cm/sAoV VTI21.1cmAO Peak GR.9mmHg LVOT Peak Jsakthib44.0cm/sLVOT VTI14.98cmAO Mean GR.5mmHg PRIMITIVO (VMAX)0.38cd2VYD (VTI)0.67cm2 Mitral Valve MV E Peak Gr.102mmHgE/A ratio0.0 TDI E/Lateral E'0.0E/Medial E'0.0 Tricuspid Valve TR Peak Ookswhec182am/sRAP [id number] Peak Gr.41mmHg [id number] LEFT VENTRICLE The Left Ventricle is mildly dilated. There is normal left ventricular wall thickness. The systolic function is severely impaired. The estimated ejection fraction is 20-25% There is global hypokinesis of the left ventricle. Transmitral Doppler flow pattern is Grade II-pseudonormal filling dynamics. No left ventricle thrombus noted on this study. There is no ventricular septal defect visualized. There is no left ventricular aneurysm. There is no mass noted in the left ventricle. RIGHT VENTRICLE The right ventricle is normal size. There is normal right ventricular wall thickness. The right ventricular systolic function is normal. ATRIA The left atrium is severely dilated. The right atrium size is normal. The interatrial septum is intact with no evidence for an atrial septal defect. AORTIC VALVE The aortic valve is normal in structure. Mild aortic regurgitation is present. There is no aortic valvular stenosis. There is no aortic valvular vegetation. MITRAL VALVE The mitral valve is normal in structure. There is no evidence of mitral valve prolapse. There is no mitral valve stenosis. There is severe mitral valve regurgitation noted. TRICUSPID VALVE The tricuspid valve is normal in structure. There is mild to moderate tricuspid valve regurgitation noted. RVSP is calculated at 49 mm Hg. There is no tricuspid valve prolapse or vegetation. There is no tricuspid valve stenosis. PULMONIC VALVE The pulmonary valve is normal in structure. There is no pulmonic valvular regurgitation. There is no pulmonic valvular stenosis. GREAT VESSELS The aortic root is normal in size. The ascending aorta is normal in size. The pulmonary artery is normal. The IVC is not well visualized. PERICARDIAL EFFUSION There is no pericardial effusion. There is no pleural effusion. <Conclusion> The Left Ventricle is mildly dilated. The systolic function is severely impaired. The estimated ejection fraction is 20-25%. There is global hypokinesis of the left ventricle. Transmitral Doppler flow pattern is Grade II-pseudonormal filling dynamics. The left atrium is severely dilated. Mild aortic regurgitation is present. There is severe mitral valve regurgitation noted. There is mild to moderate tricuspid valve regurgitation noted. RVSP is calculated at 49 mm Hg.
[2018-08-29 21:33] LABS: CALCIUM 8.4 mg/dL (8.4-10.2)
--- NOTE | 2018-08-29 21:35 | CP.PCM.CON ---
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 The patient is awaiting chemotherapy treatment for her cancer. She notes to breathing better and less abdominal pain after her paracentesis. She has declined hospice and wants to try chemotherapy. She is hopeful she will improve with chemotherapy. 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 Allergies: Acetaminophen Review of systems: All remaining review of systems including HEENT, cardiovascular, respiratory, gastrointestinal, genitourinary, musculoskeletal, dermatologic, neurologic, and psychiatric are negative unless mentioned in the HPI. Past Patient History - Past Medical History & Family History Past Medical History?: Yes - Past Social History Smoking Status: Never Smoked - CARDIAC Hx Cardiac Disorders: Yes - PULMONARY Hx Pulmonary Embolism: Yes - NEUROLOGICAL Hx Neurological Disorder: No - HEENT Hx HEENT Problems: No - RENAL Hx Chronic Kidney Disease: No - ENDOCRINE/METABOLIC Hx Endocrine Disorders: No - HEMATOLOGICAL/ONCOLOGICAL Hx Anemia: Yes Hx Human Immunodeficiency Virus (HIV): No - INTEGUMENTARY Hx Dermatological Problems: No - MUSCULOSKELETAL/RHEUMATOLOGICAL Hx Arthritis: No - GASTROINTESTINAL Hx Gastrointestinal Disorders: No - GENITOURINARY/GYNECOLOGICAL Hx Genitourinary Disorders: No - PSYCHIATRIC Hx Anxiety: Yes - SURGICAL HISTORY Hx Surgeries: Yes Hx Section: Yes Other/Comment: right breast bx - ANESTHESIA Hx Anesthesia: Yes Hx Anesthesia Reactions: No Hx Malignant Hyperthermia: No Meds Allergies/Adverse Reactions: Allergies Allergy/AdvReac Type Severity Reaction Status Date / Time acetaminophen [From Tylenol] AdvReac Unknown SHORTNESS Verified 08/29/18 08:11 OF BREATH - Medications Medications: Current Medications Sodium Chloride (Sodium Chloride 0.45%) 1,000 mls @ 100 mls/hr IV .Q10H GLADIS Stop: 08/30/18 18:54 Last Admin: 08/29/18 20:19 Dose: 100 mls/hr Physical Exam - Head Exam Head Exam: ATRAUMATIC - Eye Exam Eye Exam: Normal appearance - ENT Exam ENT Exam: Mucous Membranes Dry - Respiratory Exam Respiratory Exam: Decreased Breath Sounds - Cardiovascular Exam Cardiovascular Exam: +S1, +S2 - GI/Abdominal Exam GI & Abdominal Exam: Normal Bowel Sounds - Extremities Exam Extremities exam: Positive for: pedal edema - Neurological Exam Neurological exam: Oriented x3 - Psychiatric Exam Psychiatric exam: Normal Affect, Normal Mood - Skin Skin Exam: Warm Results - Vital Signs Recent Vital Signs: Last Vital Signs Temp 98.2 F 08/29/18 20:53 Pulse 98 H 08/29/18 21:28 Resp 20 08/29/18 20:53 BP 90/56 L 08/29/18 21:28 Pulse Ox 99 08/29/18 21:28 - Labs Result Diagrams: 08/29/18 09:00 08/29/18 11:32 Labs: Laboratory Results - last 24 hr 08/29/18 08/29/18 08/29/18 09:00 09:00 11:32 WBC 33.0 H D RBC 3.44 L Hgb 8.8 L Hct 27.8 L MCV 80.8 L MCH 25.5 L MCHC 31.5 L RDW 26.0 H Plt Count 302 MPV 8.2 Neut % (Auto) 92.6 H Lymph % (Auto) 3.0 L [place] % (Auto) 4.0 Eos % (Auto) 0.2 Baso % (Auto) 0.2 Neut # (Auto) 30.6 H Lymph # (Auto) 1.0 [place] # (Auto) 1.3 H Eos # (Auto) 0.1 Baso # (Auto) 0.1 Neutrophils % (Manual) 93 H Lymphocytes % (Manual) 5 L Monocytes % (Manual) 2 Platelet Estimate Normal Large Platelets Present Hypochromasia (manual) Moderate Anisocytosis (manual) Marked Tear Drop Cells Slight PT 15.4 H INR 1.4 APTT 26.6 pO2 VBG pH VBG pCO2 VBG HCO3 VBG Total CO2 VBG O2 Sat (Calc) VBG Base Excess VBG Potassium Glucose Lactate FiO2 Crit Value Called To Crit Value Called By Crit Value Read Back Blood Gas Notified Time Sodium 130 L Potassium 6.5 H* D Chloride 89 L Carbon Dioxide 29 Anion Gap 19 BUN 40 H Creatinine 1.5 H Est GFR ( Amer) 43 Est GFR (Non-Af Amer) 35 Random Glucose 103 Calcium 8.7 Phosphorus 5.2 H Magnesium 2.6 H Total Bilirubin 0.5 AST 35 ALT 21 Alkaline Phosphatase 164 H Troponin I 0.0630 NT-Pro-B Natriuret Pep 48450 H Total Protein 6.5 Albumin 3.0 L Globulin 3.6 Albumin/Globulin Ratio 0.8 L Venous Blood Potassium 08/29/18 11:58 WBC RBC Hgb Hct MCV MCH MCHC RDW Plt Count MPV Neut % (Auto) Lymph % (Auto) [place] % (Auto) Eos % (Auto) Baso % (Auto) Neut # (Auto) Lymph # (Auto) [place] # (Auto) Eos # (Auto) Baso # (Auto) Neutrophils % (Manual) Lymphocytes % (Manual) Monocytes % (Manual) Platelet Estimate Large Platelets Hypochromasia (manual) Anisocytosis (manual) Tear Drop Cells PT INR APTT pO2 41 VBG pH 7.44 H VBG pCO2 47 VBG HCO3 29.6 VBG Total CO2 33.3 H VBG O2 Sat (Calc) 80.6 H VBG Base Excess 6.6 H VBG Potassium 6.5 H* Glucose 100 Lactate 1.9 FiO2 21.0 Crit Value Called To Graeme parra md Crit Value Called By 6075 Crit Value Read Back Y Blood Gas Notified Time 1202 Sodium 127.0 L Potassium Chloride 95.0 L Carbon Dioxide Anion Gap BUN Creatinine Est GFR ( Amer) Est GFR (Non-Af Amer) Random Glucose Calcium Phosphorus Magnesium Total Bilirubin AST ALT Alkaline Phosphatase Troponin I NT-Pro-B Natriuret Pep Total Protein Albumin Globulin Albumin/Globulin Ratio Venous Blood Potassium 6.5 H* Assessment & Plan (1) Breast CA Assessment and Plan: stage IV, ER positive pelvic mass biopsy consistent with metastatic breast cancer ? malignant ascites - s/p paracentesis outpatient chemotherapy Status: Acute Priority: High (2) Malignant pleural effusion Assessment and Plan: cytology positive for adenocarcinoma IHC suggestive of mullerian tract primary but further testing still pending Status: Acute (3) Pulmonary embolism Assessment and Plan: with DVT provoked from malignancy and immobility recommend Eliquis 5mg BID if no longer requiring paracentesis Status: Acute (4) Anemia Assessment and Plan: chronic disease from malignancy Status: Acute Priority: High (5) Leukocytosis Assessment and Plan: ? reactive to malignancy Thank you for this interesting consult. Status: Acute Priority: High
[2018-08-29] MEDS ORDERED: Dextrose 50% SYRINGE Inj (50 ml) IVP ONE (21:59)
[2018-08-29] MEDS ORDERED: Insulin Regular 100 units/ml IV STA (22:00)
[2018-08-30] MEDS: Piperacillin/Tazobact 3.375 GM in Sodium Chloride 0.9% 100 ML IVPB SCH ×3 (00:48→17:45)
[2018-08-30 06:06] LABS: HEMOGLOBIN 9.1 g/dL (12.0-16.0); MEAN CELL VOLUME 84.5 fl (81.0-99.0); MEAN CORPUSCULAR HEMOGLOBIN 25.7 pg (27.0-31.0); MEAN CORPUSCULAR HGB CONC 30.4 g/dL (33.0-37.0); RBC 3.53 Mil/uL (3.80-5.20); WHITE BLOOD COUNT 31.2 K/uL (4.8-10.8)
[2018-08-30 06:20] LABS: ALB/GLOB RATIO 0.7 (1.0-2.1); ALBUMIN 2.7 g/dL (3.5-5.0); CALCIUM 8.1 mg/dL (8.4-10.2)
[2018-08-30 07:40] VITALS: BMI 23.7
--- NOTE | 2018-08-30 08:30 | CP.PCM.CON ---
History of Present Illness - History of Present Illness History of Present Illness: Infectious Disease Consultation Note- asked to see this patient at the request of for rule out sepsis. 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 as per patient's oncologist pt. has been getting Tamoxifen so far and had mediport in place and is expected to get chemo as outpatietn . as per onclologist patient may have 2 primary malignancies with mets ( breast cancer and the mulerian duct cancer) . on this admission she was found to have significant abdominal ascites and is s/p paracenthesis and sattes her breathing ahs improved post paracentheis. she also has had DVT and fluid retention. She also explains that she has been having red lesion on the back of her right lower leg that are tender. as per her Oncologist She has declined hospice and wants to try chemotherapy. She is hopeful she will improve with chemotherapy. She denies any fever or chills, denies any cough, + sob but less now post paracenthesis, denies any dysurea, denies any diarrhea, denies any nausea or vomiting. 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 Allergies: Acetaminophen Review of Systems - Review of Systems Review of Systems: ROS- denies any BROWN, denies any cough, + Sob but better post paracenthesis, denies anyc hest pain, denies any nausea or vomiting, denies any abd. pain, denies any dysurea, denies any diarrhea pain in the back of her right lower leg with red lesions. Past Patient History - Past Medical History & Family History Past Medical History?: Yes - Past Social History Smoking Status: Never Smoked - CARDIAC Hx Cardiac Disorders: Yes - PULMONARY Hx Pulmonary Embolism: Yes - NEUROLOGICAL Hx Neurological Disorder: No - HEENT Hx HEENT Problems: No - RENAL Hx Chronic Kidney Disease: No - ENDOCRINE/METABOLIC Hx Endocrine Disorders: No - HEMATOLOGICAL/ONCOLOGICAL Hx Anemia: Yes - INTEGUMENTARY Hx Dermatological Problems: No - MUSCULOSKELETAL/RHEUMATOLOGICAL Hx Arthritis: No - GASTROINTESTINAL Hx Gastrointestinal Disorders: No - GENITOURINARY/GYNECOLOGICAL Hx Genitourinary Disorders: No - PSYCHIATRIC Hx Anxiety: Yes - SURGICAL HISTORY Hx Surgeries: Yes Hx Section: Yes Other/Comment: right breast bx - ANESTHESIA Hx Anesthesia: Yes Hx Anesthesia Reactions: No Hx Malignant Hyperthermia: No Meds Home Medications: Home Medication List Medication Instructions Recorded Confirmed Type Sodium Bicarbonate Tab 650 mg PO BID #14 tab 08/30/18 Rx Allergies/Adverse Reactions: Allergies Allergy/AdvReac Type Severity Reaction Status Date / Time acetaminophen [From Tylenol] AdvReac Unknown SHORTNESS Verified 08/29/18 08:11 OF BREATH - Medications Medications: Current Medications Apixaban (Eliquis) 5 mg PO BID [facility]; Protocol Last Admin: 08/29/18 23:07 Dose: 5 mg Ferrous Sulfate (Feosol) 325 mg PO BID [facility] Furosemide (Lasix) 40 mg IV DAILY [facility] Piperacillin Sod/Tazobactam (Sod 3.375 gm/ Sodium Chloride) 100 mls @ 100 mls/hr IVPB Q8 [facility]; Protocol Last Admin: 08/30/18 00:48 Dose: 100 mls/hr Metoprolol Tartrate (Lopressor) 12.5 mg PO Q12 [facility] Multivitamins/Minerals (Therapeutic-M Tab) 1 tab PO DAILY [facility] Sodium Bicarbonate (Sodium Bicarbonate Tab) 650 mg PO BID [facility] Stop: 09/01/18 22:16 Last Admin: 08/29/18 23:01 Dose: 650 mg Tamoxifen Citrate (Nolvadex) 20 mg PO DAILY [facility] Physical Exam - Constitutional Appears: No Acute Distress, Chronically Ill - Head Exam Head Exam: ATRAUMATIC - Eye Exam Eye Exam: EOMI, PERRL - ENT Exam ENT Exam: Normal Oropharynx - Neck Exam Neck exam: Positive for: Full Rom - Respiratory Exam Respiratory Exam: NORMAL BREATHING PATTERN Additional comments: decreased breath sounds bibasilar No wheezing - Cardiovascular Exam Cardiovascular Exam: RRR, +S1, +S2 Additional comments: left chest mediport in place, no erythema - GI/Abdominal Exam Additional comments: ascites, + BS distended, soft NT - Extremities Exam Additional comments: edema in b/l feet Right posterior lower leg with erythematouds tender lesions from posterior ankle region to below the knee look similar to the lesions on her right breast - Neurological Exam Neurological exam: Alert, Oriented x3 - Skin Additional comments: right breast entirely covered with fungating looking round erythematous lesion and fungating mass like lesion on her umbilicus as well Results - Vital Signs Recent Vital Signs: Last Vital Signs Temp 97.4 F L 08/30/18 08:00 Pulse 94 H 08/30/18 08:00 Resp 18 08/30/18 08:00 BP 94/59 L 08/30/18 08:00 Pulse Ox 97 08/30/18 08:00 - Labs Result Diagrams: 08/30/18 04:35 08/30/18 04:35 Labs: Laboratory Results - last 24 hr 08/29/18 08/29/18 08/29/18 09:00 09:00 11:32 WBC 33.0 H D RBC 3.44 L Hgb 8.8 L Hct 27.8 L MCV 80.8 L MCH 25.5 L MCHC 31.5 L RDW 26.0 H Plt Count 302 MPV 8.2 Neut % (Auto) 92.6 H Lymph % (Auto) 3.0 L [place] % (Auto) 4.0 Eos % (Auto) 0.2 Baso % (Auto) 0.2 Neut # (Auto) 30.6 H Lymph # (Auto) 1.0 [place] # (Auto) 1.3 H Eos # (Auto) 0.1 Baso # (Auto) 0.1 Neutrophils % (Manual) 93 H Lymphocytes % (Manual) 5 L Monocytes % (Manual) 2 Platelet Estimate Normal Large Platelets Present Hypochromasia (manual) Moderate Anisocytosis (manual) Marked Tear Drop Cells Slight PT 15.4 H INR 1.4 APTT 26.6 pO2 VBG pH VBG pCO2 VBG HCO3 VBG Total CO2 VBG O2 Sat (Calc) VBG Base Excess VBG Potassium Glucose Lactate FiO2 Crit Value Called To Crit Value Called By Crit Value Read Back Blood Gas Notified Time Sodium 130 L Potassium 6.5 H* D Chloride 89 L Carbon Dioxide 29 Anion Gap 19 BUN 40 H Creatinine 1.5 H Est GFR ( Amer) 43 Est GFR (Non-Af Amer) 35 Random Glucose 103 Calcium 8.7 Phosphorus 5.2 H Magnesium 2.6 H Total Bilirubin 0.5 AST 35 ALT 21 Alkaline Phosphatase 164 H Troponin I 0.0630 NT-Pro-B Natriuret Pep 99133 H Total Protein 6.5 Albumin 3.0 L Globulin 3.6 Albumin/Globulin Ratio 0.8 L Venous Blood Potassium 08/29/18 08/29/18 08/30/18 11:58 20:51 04:35 WBC 31.2 H RBC 3.53 L Hgb 9.1 L Hct 29.8 L MCV 84.5 D MCH 25.7 L MCHC 30.4 L RDW 26.0 H Plt Count 271 MPV Neut % (Auto) Lymph % (Auto) [place] % (Auto) Eos % (Auto) Baso % (Auto) Neut # (Auto) Lymph # (Auto) [place] # (Auto) Eos # (Auto) Baso # (Auto) Neutrophils % (Manual) Lymphocytes % (Manual) Monocytes % (Manual) Platelet Estimate Large Platelets Hypochromasia (manual) Anisocytosis (manual) Tear Drop Cells PT INR APTT pO2 41 VBG pH 7.44 H VBG pCO2 47 VBG HCO3 29.6 VBG Total CO2 33.3 H VBG O2 Sat (Calc) 80.6 H VBG Base Excess 6.6 H VBG Potassium 6.5 H* Glucose 100 Lactate 1.9 FiO2 21.0 Crit Value Called To Graeme parra md Crit Value Called By 6075 Crit Value Read Back Y Blood Gas Notified Time 1202 Sodium 127.0 L 129 L Potassium 6.2 H* Chloride 95.0 L 90 L Carbon Dioxide 27 Anion Gap 18 BUN 41 H Creatinine 1.3 H Est GFR ( Amer) 51 Est GFR (Non-Af Amer) 42 Random Glucose 107 H Calcium 8.4 Phosphorus Magnesium Total Bilirubin AST ALT Alkaline Phosphatase Troponin I NT-Pro-B Natriuret Pep Total Protein Albumin Globulin Albumin/Globulin Ratio Venous Blood Potassium 6.5 H* 08/30/18 04:35 WBC RBC Hgb Hct MCV MCH MCHC RDW Plt Count MPV Neut % (Auto) Lymph % (Auto) [place] % (Auto) Eos % (Auto) Baso % (Auto) Neut # (Auto) Lymph # (Auto) [place] # (Auto) Eos # (Auto) Baso # (Auto) Neutrophils % (Manual) Lymphocytes % (Manual) Monocytes % (Manual) Platelet Estimate Large Platelets Hypochromasia (manual) Anisocytosis (manual) Tear Drop Cells PT INR APTT pO2 VBG pH VBG pCO2 VBG HCO3 VBG Total CO2 VBG O2 Sat (Calc) VBG Base Excess VBG Potassium Glucose Lactate FiO2 Crit Value Called To Crit Value Called By Crit Value Read Back Blood Gas Notified Time Sodium 128 L Potassium 5.6 H Chloride 90 L Carbon Dioxide 24 Anion Gap 20 BUN 42 H Creatinine 1.4 H Est GFR ( Amer) 46 Est GFR (Non-Af Amer) 38 Random Glucose 83 Calcium 8.1 L Phosphorus Magnesium Total Bilirubin 0.9 AST 61 H D ALT 9 D Alkaline Phosphatase 177 H Troponin I NT-Pro-B Natriuret Pep Total Protein 6.4 Albumin 2.7 L Globulin 3.7 Albumin/Globulin Ratio 0.7 L Venous Blood Potassium Laboratory Results - last 72 hr 08/29/18 08/29/18 08/29/18 09:00 09:00 11:32 WBC 33.0 H D RBC 3.44 L Hgb 8.8 L Hct 27.8 L MCV 80.8 L MCH 25.5 L MCHC 31.5 L RDW 26.0 H Plt Count 302 MPV 8.2 Neut % (Auto) 92.6 H Lymph % (Auto) 3.0 L [place] % (Auto) 4.0 Eos % (Auto) 0.2 Baso % (Auto) 0.2 Neut # (Auto) 30.6 H Lymph # (Auto) 1.0 [place] # (Auto) 1.3 H Eos # (Auto) 0.1 Baso # (Auto) 0.1 Neutrophils % (Manual) 93 H Lymphocytes % (Manual) 5 L Monocytes % (Manual) 2 Platelet Estimate Normal Large Platelets Present Hypochromasia (manual) Moderate Anisocytosis (manual) Marked Tear Drop Cells Slight PT 15.4 H INR 1.4 APTT 26.6 pO2 VBG pH VBG pCO2 VBG HCO3 VBG Total CO2 VBG O2 Sat (Calc) VBG Base Excess VBG Potassium Glucose Lactate FiO2 Crit Value Called To Crit Value Called By Crit Value Read Back Blood Gas Notified Time Sodium 130 L Potassium 6.5 H* D Chloride 89 L Carbon Dioxide 29 Anion Gap 19 BUN 40 H Creatinine 1.5 H Est GFR ( Amer) 43 Est GFR (Non-Af Amer) 35 Random Glucose 103 Calcium 8.7 Phosphorus 5.2 H Magnesium 2.6 H Total Bilirubin 0.5 AST 35 ALT 21 Alkaline Phosphatase 164 H Troponin I 0.0630 NT-Pro-B Natriuret Pep 37215 H Total Protein 6.5 Albumin 3.0 L Globulin 3.6 Albumin/Globulin Ratio 0.8 L Venous Blood Potassium 08/29/18 08/29/18 08/30/18 11:58 20:51 04:35 WBC 31.2 H RBC 3.53 L Hgb 9.1 L Hct 29.8 L MCV 84.5 D MCH 25.7 L MCHC 30.4 L RDW 26.0 H Plt Count 271 MPV Neut % (Auto) Lymph % (Auto) [place] % (Auto) Eos % (Auto) Baso % (Auto) Neut # (Auto) Lymph # (Auto) [place] # (Auto) Eos # (Auto) Baso # (Auto) Neutrophils % (Manual) Lymphocytes % (Manual) Monocytes % (Manual) Platelet Estimate Large Platelets Hypochromasia (manual) Anisocytosis (manual) Tear Drop Cells PT INR APTT pO2 41 VBG pH 7.44 H VBG pCO2 47 VBG HCO3 29.6 VBG Total CO2 33.3 H VBG O2 Sat (Calc) 80.6 H VBG Base Excess 6.6 H VBG Potassium 6.5 H* Glucose 100 Lactate 1.9 FiO2 21.0 Crit Value Called To Graeme parra md Crit Value Called By 6075 Crit Value Read Back Y Blood Gas Notified Time 1202 Sodium 127.0 L 129 L Potassium 6.2 H* Chloride 95.0 L 90 L Carbon Dioxide 27 Anion Gap 18 BUN 41 H Creatinine 1.3 H Est GFR ( Amer) 51 Est GFR (Non-Af Amer) 42 Random Glucose 107 H Calcium 8.4 Phosphorus Magnesium Total Bilirubin AST ALT Alkaline Phosphatase Troponin I NT-Pro-B Natriuret Pep Total Protein Albumin Globulin Albumin/Globulin Ratio Venous Blood Potassium 6.5 H* 08/30/18 04:35 WBC RBC Hgb Hct MCV MCH MCHC RDW Plt Count MPV Neut % (Auto) Lymph % (Auto) [place] % (Auto) Eos % (Auto) Baso % (Auto) Neut # (Auto) Lymph # (Auto) [place] # (Auto) Eos # (Auto) Baso # (Auto) Neutrophils % (Manual) Lymphocytes % (Manual) Monocytes % (Manual) Platelet Estimate Large Platelets Hypochromasia (manual) Anisocytosis (manual) Tear Drop Cells PT INR APTT pO2 VBG pH VBG pCO2 VBG HCO3 VBG Total CO2 VBG O2 Sat (Calc) VBG Base Excess VBG Potassium Glucose Lactate FiO2 Crit Value Called To Crit Value Called By Crit Value Read Back Blood Gas Notified Time Sodium 128 L Potassium 5.6 H Chloride 90 L Carbon Dioxide 24 Anion Gap 20 BUN 42 H Creatinine 1.4 H Est GFR ( Amer) 46 Est GFR (Non-Af Amer) 38 Random Glucose 83 Calcium 8.1 L Phosphorus Magnesium Total Bilirubin 0.9 AST 61 H D ALT 9 D Alkaline Phosphatase 177 H Troponin I NT-Pro-B Natriuret Pep Total Protein 6.4 Albumin 2.7 L Globulin 3.7 Albumin/Globulin Ratio 0.7 L Venous Blood Potassium Microbiology 08/29/18 11:32 Blood Blood Culture - Preliminary NO GROWTH AFTER 24 HOURS Accession No. : [id number] Patient Name / ID : RYLEE ONEIL / [id number] Exam Date : 08/29/2018 11:56:09 ( Approved ) Study Comment : Sex / Age : F / 58Y Creator : Krystle Gage MD Dictator : Krystle Gage MD Sorter/Assay Tech : [employer] Feeder : Krystle Gage MD Approver2 : Report Date : 08/29/2018 13:02:35 My Comment : Date of service: 08/29/2018 PROCEDURE: CT Abdomen and Pelvis without intravenous contrast HISTORY: ascites COMPARISON: 07/06/2018. TECHNIQUE: CT scan of the abdomen and pelvis was performed without administration of intravenous contrast. Oral contrast was not administered. Coronal and sagittal reformatted images were obtained. . Radiation dose: Total exam DLP = 698.88 mGy-cm. This CT exam was performed using one or more of the following dose reduction techniques: Automated exposure control, adjustment of the mA and/or kV according to patient size, and/or use of iterative reconstruction technique. FINDINGS: LOWER THORAX: There are moderate pleural effusions with compressive atelectasis of the lower lobes. There is multifocal subsegmental atelectasis in the visualized lungs. There is worsening nodular thickening and asymmetric enlargement of the right breast. There is diffuse subcutaneous edema in the right breast. There is also parenchymal lobular densities in the right breast. LIVER: Normal in size. No intrahepatic ductal dilatation. GALLBLADDER AND BILE DUCTS: The gallbladder is distended. Multiple peripherally calcified gallstones. No wall thickening. PANCREAS: Normal in size. No ductal dilatation. SPLEEN: Mild splenomegaly. ADRENALS: Normal in size. No discrete nodule. KIDNEYS AND URETERS: Normal in size without nephrolithiasis. No hydronephrosis. VASCULATURE: No aortic aneurysm. There are mild aortic atherosclerotic calcifications present. BOWEL: The small bowel loops are normal in caliber. The colon is normal in size. No bowel dilatation or wall thickening. No bowel obstruction. APPENDIX: No inflammatory changes in the right lower quadrant. PERITONEUM: Large abdominal and pelvic ascites. No free air. Again seen are multiple high attenuation masses in the mesentery. LYMPH NODES: Redemonstration of bilateral subcentimeter pelvic sidewall nodes. BLADDER: Well distended and grossly normal in appearance. REPRODUCTIVE: There is interval increase in size of large predominantly cystic mass in the left lower quadrant which now measures 20.0 x 21.7 cm. There are peripheral and central high attenuation areas within the mass. Redemonstration of an enlarged abnormal uterus with a large fundal mass. BONES: No acute fracture. OTHER FINDINGS: There is severe diffuse anasarca. IMPRESSION: 1. Examination is limited in the absence of intravenous and oral contrast. Interval increase in size of large predominantly cystic mass in the left lower quadrant with central and peripheral high density areas suspicious for malignancy, redemonstration of large indeterminate fundal mass in the uterus, and redemonstration of a mesenteric deposits. 2. Large abdominal and pelvic ascites. Moderate bilateral pleural effusions. 3. Cholelithiasis. Accession No. : [id number] Patient Name / ID : RYLEE ONEIL / [id number] Exam Date : 08/29/2018 08:24:05 ( Approved ) Study Comment : Sex / Age : F / 58Y Creator : Syed Avalos MD Dictator : Syed Avalos MD Sorter/Assay Tech : [employer] Feeder : Syed Avalos MD Approver2 : Report Date : 08/29/2018 14:13:58 My Comment : Date of service: 08/29/2018 HISTORY: SOB COMPARISON: Portable chest 08/14/2018. FINDINGS: LUNGS: Interval left MediPort insertion is noted via an apparent left internal jugular approach with tip terminating at the distal superior vena cava. Overall inspiratory volume is slightly improved but scattered infiltrates remain at the mid to inferior lung zones bilaterally, left greater than right. Right hemidiaphragm elevation is again evident. PLEURA: Trace left pleural effusion not excluded. None is identified at the right in the interval. CARDIOVASCULAR: No aortic atherosclerotic calcification present. Stable cardiac size. No pulmonary vascular congestion. OSSEOUS STRUCTURES: No significant abnormalities. VISUALIZED UPPER ABDOMEN: Normal. OTHER FINDINGS: None. IMPRESSION: Interval left MediPort in good apparent position with scattered bilateral infiltrates identified bilaterally. Trace left pleural effusion not excluded. Accession No. : [id number] Patient Name / ID : RYLEE ONEIL / [id number] Exam Date : 08/29/2018 09:14:50 ( Approved ) Study Comment : Sex / Age : F 58Y Creator : kanu zhao Dictator : Krystle Gage MD Sorter/Assay Tech : [employer] Feeder : Krystle Gage MD Approver2 : Report Date : 08/29/2018 11:33:33 My Comment : Date of service: 08/29/2018 PROCEDURE: Bilateral lower extremity venous duplex Doppler. HISTORY: LE edema, rule out DVT COMPARISON: None available. TECHNIQUE: Bilateral common femoral, superficial femoral, popliteal and posterior tibial veins were evaluated. Flow was assessed with color Doppler, compressibility, assessment of phasic flow and augmentation response. FINDINGS: COMMON FEMORAL VEIN: Right CFV: There is a partially compressible nonocclusive thrombus. Left CFV: There is a partially compressible nonocclusive thrombus. SUPERFICIAL FEMORAL VEIN: Right SFV: Unremarkable. Left SFV: Unremarkable. POPLITEAL VEIN: Right Popliteal: Unremarkable. Left Popliteal: Unremarkable. POSTERIOR TIBIAL VEIN: Right PTV: Unremarkable. Left PTV: Unremarkable. OTHER FINDINGS: There is redemonstration of loss of compressibility of right gastrocnemius vein at the level of the popliteal vein. There is diffuse subcutaneous edema in the calves. IMPRESSION: 1. 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 2. Incompressibility of the right gastrocnemius vein. Assessment & Plan (1) Adnexal mass Status: Acute (2) Malignant pleural effusion Status: Acute (3) Ascites Status: Acute (4) Breast CA Status: Acute Priority: High (5) Leukocytosis Status: Acute Priority: High - Assessment and Plan (Free Text) Assessment: A/P- 58 year old female with stage 4 metastatic inflamamtory breast cancer with also 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 afebrile high leukocytosis most likely reactive in nature from her malignancy itself. ascites most likely as a result of her malignancy as well. LE clots as per US but nonocclusive. TTE- 25 % EF as per report. RLE posterior skin changes could be secondary to skin mets as well. 07/2018 admission pleural fluid cx- negative and negative for AFB and negative fo r fungal as well. PLan- prognosis poor. no clear evidence of infection at this time, however, in light of her multiple comorbidities and decreased immune status secondary to her metastatic caner adv ise to cover empirically for both gram positive and gram negatives specially since she was also recently hospitalized to cover for nosocomial pathogens. hence no objection to empiric vanco and zosyna s initiated by admitting doc. keep vanco trough <15. check blood cx. check UA and urine cx. asked FRAME NAILER to ascertain if ascites fluid was sent for cell count and culture and cytology. All labs and imaging and chart notes reviewed. all above d/w patient at length as well and she verbalizes understanding of above. Thank you for allowing me to take part in the care of this patient.
[2018-08-30] MEDS: Multivitamin With Minerals Tab PO SCH (10:08)
[2018-08-30] MEDS ORDERED: Dextrose 50% SYRINGE Inj (50 ml) IVP ONE (15:08)
[2018-08-30 18:38] LABS: CALCIUM 7.8 mg/dL (8.4-10.2)
--- NOTE | 2018-08-30 22:09 | CP.PCM.PN ---
Subjective - Date & Time of Evaluation Date of Evaluation: 08/30/18 Time of Evaluation: 12:00 - Subjective Subjective: Feeling better s/p paracentesis Objective - Vital Signs/Intake and Output Vital Signs (last 24 hours): Temp Pulse Resp BP Pulse Ox 97.8 F 96 H 18 91/46 L 98 08/30/18 20:34 08/30/18 21:28 08/30/18 20:34 08/30/18 21:28 08/30/18 20:34 - Medications Medications: Current Medications Apixaban (Eliquis) 5 mg PO BID [facility]; Protocol Last Admin: 08/30/18 17:43 Dose: 5 mg Ferrous Sulfate (Feosol) 325 mg PO BID [facility] Last Admin: 08/30/18 17:42 Dose: 325 mg Furosemide (Lasix) 40 mg IV DAILY [facility] Last Admin: 08/30/18 10:09 Dose: 40 mg Piperacillin Sod/Tazobactam (Sod 3.375 gm/ Sodium Chloride) 100 mls @ 100 mls/hr IVPB Q8 [facility]; Protocol Last Admin: 08/30/18 17:45 Dose: 100 mls/hr Vancomycin HCl 750 mg/ Sodium (Chloride) 250 mls @ 166.667 mls/hr IVPB DAILY [facility]; Protocol Last Admin: 08/30/18 15:27 Dose: 166.667 mls/hr Metoprolol Tartrate (Lopressor) 12.5 mg PO Q12 [facility] Last Admin: 08/30/18 21:28 Dose: Not Given Morphine Sulfate (Morphine) 1 mg IVP Q4 PRN PRN Reason: Pain, moderate (4-7) Last Admin: 08/30/18 21:28 Dose: 1 mg Multivitamins/Minerals (Therapeutic-M Tab) 1 tab PO DAILY [facility] Last Admin: 08/30/18 10:08 Dose: 1 tab Sodium Bicarbonate (Sodium Bicarbonate Tab) 650 mg PO BID [facility] Stop: 09/01/18 22:16 Last Admin: 08/30/18 17:43 Dose: 650 mg Tamoxifen Citrate (Nolvadex) 20 mg PO DAILY [facility] Last Admin: 08/30/18 10:06 Dose: 20 mg - Labs Labs: 08/30/18 04:35 08/30/18 18:06 PT 15.4 Seconds (9.8-13.1) H 08/29/18 09:00 INR 1.4 08/29/18 09:00 APTT 26.6 Seconds (25.6-37.1) 08/29/18 09:00 - Head Exam Head Exam: ATRAUMATIC - Eye Exam Eye Exam: Normal appearance - ENT Exam ENT Exam: Mucous Membranes Dry - Respiratory Exam Respiratory Exam: NORMAL BREATHING PATTERN - Cardiovascular Exam Cardiovascular Exam: +S1, +S2 - GI/Abdominal Exam GI & Abdominal Exam: Normal Bowel Sounds - Extremities Exam Extremities Exam: Pedal Edema Assessment and Plan (1) Breast CA Assessment & Plan: stage IV, ER positive pelvic mass biopsy consistent with metastatic breast cancer ? malignant ascites - s/p paracentesis outpatient chemotherapy Status: Acute (2) Malignant pleural effusion Assessment & Plan: cytology positive for adenocarcinoma IHC suggestive of mullerian tract primary but further testing still pending Status: Acute (3) Pulmonary embolism Assessment & Plan: with DVT provoked from malignancy and immobility recommend Eliquis 5mg BID if no longer requiring paracentesis Status: Acute (4) Anemia Assessment & Plan: chronic disease from malignancy Status: Acute (5) Leukocytosis Assessment & Plan: ? reactive to malignancy Status: Acute
[2018-08-31] MEDS: Piperacillin/Tazobact 3.375 GM in Sodium Chloride 0.9% 100 ML IVPB SCH ×2 (00:36→09:38)
[2018-08-31 05:28] LABS: BASO % 0.1 % (0.0-2.0); EOS # 0.1 K/uL (0.0-0.7); EOS % 0.4 % (0.0-4.0); HEMOGLOBIN 8.2 g/dL (12.0-16.0); LYMPH # 0.9 K/uL (1.0-4.3); LYMPH % 3.7 % (20.0-40.0); MEAN CELL VOLUME 83.2 fl (81.0-99.0); MEAN CORPUSCULAR HEMOGLOBIN 25.2 pg (27.0-31.0); MEAN CORPUSCULAR HGB CONC 30.3 g/dL (33.0-37.0); MEAN PLATELET VOLUME 8.1 fl (7.2-11.7); MONO # 1.1 K/uL (0.0-0.8); MONO % 4.4 % (0.0-10.0); NEUT # 23.3 K/uL (1.8-7.0); NEUT % 91.4 % (50.0-75.0); PLATELET COUNT 261 K/uL (130-400); RBC 3.24 Mil/uL (3.80-5.20); RED CELL DISTRIBUTION WIDTH 25.5 % (11.5-14.5); WHITE BLOOD COUNT 25.5 K/uL (4.8-10.8)
[2018-08-31 09:16] LABS: LYMPHOCYTE 7 % (20-50); MONOCYTE 4 % (0-10); NEUTROPHIL 88 % (42-75); PLATELET ESTIMATE NORMAL (NORMAL); REACTIVE LYMPHOCYTES 1 % (0-0); TOTAL CELLS COUNTED 100
[2018-08-31 09:18] LABS: ANISOCYTOSIS SLIGHT; HYPOCHROMIC MODERATE; OVALOCYTES SLIGHT; POIKILOCYTOSIS SLIGHT; SCHISTOCYTES SLIGHT; TEARDROP CELLS SLIGHT
[2018-08-31] MEDS: Multivitamin With Minerals Tab PO SCH (09:37)
[2018-08-31] MEDS ORDERED: Potassium Chloride 20 mEq ER Tab PO ONE (09:56)
[2018-08-31] MEDS ORDERED: Potassium Chloride 20 mEq ER Tab PO SCH (10:15)
--- NOTE | 2018-08-31 11:54 | CP.PCM.PN ---
Subjective - Date & Time of Evaluation Date of Evaluation: 08/30/18 Time of Evaluation: 13:15 Objective - Vital Signs/Intake and Output Vital Signs (last 24 hours): Temp Pulse Resp BP Pulse Ox 97.1 F L 97 H 8 L 96/56 L 93 L 08/31/18 08:00 08/31/18 09:37 08/31/18 08:00 08/31/18 09:37 08/31/18 08:00 - Medications Medications: Current Medications Apixaban (Eliquis) 5 mg PO BID [facility]; Protocol Last Admin: 08/31/18 09:38 Dose: 5 mg Ferrous Sulfate (Feosol) 325 mg PO BID [facility] Last Admin: 08/31/18 09:38 Dose: 325 mg Furosemide (Lasix) 40 mg IV DAILY [facility] Last Admin: 08/31/18 09:37 Dose: Not Given Piperacillin Sod/Tazobactam (Sod 3.375 gm/ Sodium Chloride) 100 mls @ 100 mls/hr IVPB Q8 [facility]; Protocol Last Admin: 08/31/18 09:38 Dose: 100 mls/hr Vancomycin HCl 750 mg/ Sodium (Chloride) 250 mls @ 166.667 mls/hr IVPB DAILY [facility]; Protocol Last Admin: 08/31/18 09:42 Dose: 166.667 mls/hr Metoprolol Tartrate (Lopressor) 12.5 mg PO Q12 [facility] Last Admin: 08/31/18 09:37 Dose: Not Given Morphine Sulfate (Morphine) 1 mg IVP Q4 PRN PRN Reason: Pain, moderate (4-7) Last Admin: 08/30/18 21:28 Dose: 1 mg Multivitamins/Minerals (Therapeutic-M Tab) 1 tab PO DAILY [facility] Last Admin: 08/31/18 09:37 Dose: 1 tab Potassium Chloride (K-Dur 20 Meq Er Tab) 20 meq PO DAILY [facility] Last Admin: 08/31/18 11:26 Dose: 20 meq Sodium Bicarbonate (Sodium Bicarbonate Tab) 650 mg PO BID [facility] Stop: 09/01/18 22:16 Last Admin: 08/31/18 09:37 Dose: 650 mg Tamoxifen Citrate (Nolvadex) 20 mg PO DAILY [facility] Last Admin: 08/31/18 09:45 Dose: 20 mg - Labs Labs: 08/31/18 04:35 08/31/18 04:35 PT 15.4 Seconds (9.8-13.1) H 08/29/18 09:00 INR 1.4 08/29/18 09:00 APTT 26.6 Seconds (25.6-37.1) 08/29/18 09:00 Assessment and Plan (1) Anasarca Status: Acute (2) Sepsis Status: Acute (3) Ascites Status: Acute (4) Adnexal mass Status: Acute (5) DVT of lower extremity, bilateral Status: Acute (6) Dyspnea Status: Acute (7) Malignant pleural effusion Status: Acute (8) Pleural effusion Status: Acute (9) Coagulopathy Status: Acute (10) Breast CA Status: Acute
[2018-08-31 12:06] VITALS: BP 100/62; RESP 18; TEMP 97.3; O2SAT 96
--- NOTE | 2018-08-31 12:37 | CP.PCM.PN ---
Subjective - Date & Time of Evaluation Date of Evaluation: 08/31/18 Time of Evaluation: 12:36 - Subjective Subjective: ID Note- Patient seen and examined today. denies any fever or chills. as per METER CHANGES RECORDS CLERK pt. is being d/c home today by her primary doc , because she will go to have outpatient chemo tomm. Objective - Vital Signs/Intake and Output Vital Signs (last 24 hours): Temp Pulse Resp BP Pulse Ox 97.3 F L 94 H 18 100/62 96 08/31/18 12:05 08/31/18 12:05 08/31/18 12:05 08/31/18 12:05 08/31/18 12:05 - Medications Medications: Current Medications Apixaban (Eliquis) 5 mg PO BID [facility]; Protocol Last Admin: 08/31/18 09:38 Dose: 5 mg Ferrous Sulfate (Feosol) 325 mg PO BID [facility] Last Admin: 08/31/18 09:38 Dose: 325 mg Furosemide (Lasix) 40 mg IV DAILY [facility] Last Admin: 08/31/18 09:37 Dose: Not Given Piperacillin Sod/Tazobactam (Sod 3.375 gm/ Sodium Chloride) 100 mls @ 100 mls/hr IVPB Q8 [facility]; Protocol Last Admin: 08/31/18 09:38 Dose: 100 mls/hr Vancomycin HCl 750 mg/ Sodium (Chloride) 250 mls @ 166.667 mls/hr IVPB DAILY [facility]; Protocol Last Admin: 08/31/18 09:42 Dose: 166.667 mls/hr Metoprolol Tartrate (Lopressor) 12.5 mg PO Q12 [facility] Last Admin: 08/31/18 09:37 Dose: Not Given Morphine Sulfate (Morphine) 1 mg IVP Q4 PRN PRN Reason: Pain, moderate (4-7) Last Admin: 08/30/18 21:28 Dose: 1 mg Multivitamins/Minerals (Therapeutic-M Tab) 1 tab PO DAILY [facility] Last Admin: 08/31/18 09:37 Dose: 1 tab Potassium Chloride (K-Dur 20 Meq Er Tab) 20 meq PO DAILY [facility] Last Admin: 08/31/18 11:26 Dose: 20 meq Sodium Bicarbonate (Sodium Bicarbonate Tab) 650 mg PO BID [facility] Stop: 09/01/18 22:16 Last Admin: 08/31/18 09:37 Dose: 650 mg Tamoxifen Citrate (Nolvadex) 20 mg PO DAILY [facility] Last Admin: 08/31/18 09:45 Dose: 20 mg - Labs Labs: - Additional Findings Additional findings: - Constitutional Appears: No Acute Distress, Chronically Ill - Head Exam Head Exam: ATRAUMATIC - Eye Exam Eye Exam: EOMI, PERRL - ENT Exam ENT Exam: Normal Oropharynx - Neck Exam Neck exam: Positive for: Full Rom - Respiratory Exam Respiratory Exam: NORMAL BREATHING PATTERN Additional comments: decreased breath sounds bibasilar No wheezing - Cardiovascular Exam Cardiovascular Exam: RRR, +S1, +S2 Additional comments: left chest mediport in place, no erythema - GI/Abdominal Exam Additional comments: ascites, + BS distended, soft NT - Extremities Exam Additional comments: edema in b/l feet Right posterior lower leg with erythematouds tender lesions from posterior ankle region to below the knee look similar to the lesions on her right breast - Neurological Exam Neurological exam: Alert, Oriented x 3 - Skin Additional comments: right breast entirely covered with fungating looking round erythematous lesion and fungating mass like lesion on her umbilicus as well Laboratory Results - last 72 hr 08/29/18 08/29/18 08/29/18 09:00 09:00 11:32 WBC 33.0 H D RBC 3.44 L Hgb 8.8 L Hct 27.8 L MCV 80.8 L MCH 25.5 L MCHC 31.5 L RDW 26.0 H Plt Count 302 MPV 8.2 Neut % (Auto) 92.6 H Lymph % (Auto) 3.0 L [place] % (Auto) 4.0 Eos % (Auto) 0.2 Baso % (Auto) 0.2 Neut # (Auto) 30.6 H Lymph # (Auto) 1.0 [place] # (Auto) 1.3 H Eos # (Auto) 0.1 Baso # (Auto) 0.1 Neutrophils % (Manual) 93 H Lymphocytes % (Manual) 5 L Reactive Lymphs % Monocytes % (Manual) 2 Platelet Estimate Normal Large Platelets Present Hypochromasia (manual) Moderate Poikilocytosis (manual Anisocytosis (manual) Marked Tear Drop Cells Slight Ovalocytes Schistocytes PT 15.4 H INR 1.4 APTT 26.6 pO2 VBG pH VBG pCO2 VBG HCO3 VBG Total CO2 VBG O2 Sat (Calc) VBG Base Excess VBG Potassium Glucose Lactate FiO2 Crit Value Called To Crit Value Called By Crit Value Read Back Blood Gas Notified Time Sodium 130 L Potassium 6.5 H* D Chloride 89 L Carbon Dioxide 29 Anion Gap 19 BUN 40 H Creatinine 1.5 H Est GFR ( Amer) 43 Est GFR (Non-Af Amer) 35 Random Glucose 103 Calcium 8.7 Phosphorus 5.2 H Magnesium 2.6 H Total Bilirubin 0.5 AST 35 ALT 21 Alkaline Phosphatase 164 H Troponin I 0.0630 NT-Pro-B Natriuret Pep 83182 H Total Protein 6.5 Albumin 3.0 L Globulin 3.6 Albumin/Globulin Ratio 0.8 L Venous Blood Potassium 08/29/18 08/29/18 08/30/18 11:58 20:51 04:35 WBC 31.2 H RBC 3.53 L Hgb 9.1 L Hct 29.8 L MCV 84.5 D MCH 25.7 L MCHC 30.4 L RDW 26.0 H Plt Count 271 MPV Neut % (Auto) Lymph % (Auto) [place] % (Auto) Eos % (Auto) Baso % (Auto) Neut # (Auto) Lymph # (Auto) [place] # (Auto) Eos # (Auto) Baso # (Auto) Neutrophils % (Manual) Lymphocytes % (Manual) Reactive Lymphs % Monocytes % (Manual) Platelet Estimate Large Platelets Hypochromasia (manual) Poikilocytosis (manual Anisocytosis (manual) Tear Drop Cells Ovalocytes Schistocytes PT INR APTT pO2 41 VBG pH 7.44 H VBG pCO2 47 VBG HCO3 29.6 VBG Total CO2 33.3 H VBG O2 Sat (Calc) 80.6 H VBG Base Excess 6.6 H VBG Potassium 6.5 H* Glucose 100 Lactate 1.9 FiO2 21.0 Crit Value Called To Graeme parra md Crit Value Called By [id number] Crit Value Read Back Y Blood Gas Notified Time 1202 Sodium 127.0 L 129 L Potassium 6.2 H* Chloride 95.0 L 90 L Carbon Dioxide 27 Anion Gap 18 BUN 41 H Creatinine 1.3 H Est GFR ( Amer) 51 Est GFR (Non-Af Amer) 42 Random Glucose 107 H Calcium 8.4 Phosphorus Magnesium Total Bilirubin AST ALT Alkaline Phosphatase Troponin I NT-Pro-B Natriuret Pep Total Protein Albumin Globulin Albumin/Globulin Ratio Venous Blood Potassium 6.5 H* 08/30/18 08/30/18 08/31/18 04:35 18:06 04:35 WBC 25.5 H RBC 3.24 L Hgb 8.2 L Hct 27.0 L MCV 83.2 MCH 25.2 L MCHC 30.3 L RDW 25.5 H Plt Count 261 MPV 8.1 Neut % (Auto) 91.4 H Lymph % (Auto) 3.7 L [place] % (Auto) 4.4 Eos % (Auto) 0.4 Baso % (Auto) 0.1 Neut # (Auto) 23.3 H Lymph # (Auto) 0.9 L [place] # (Auto) 1.1 H Eos # (Auto) 0.1 Baso # (Auto) 0.0 Neutrophils % (Manual) 88 H Lymphocytes % (Manual) 7 L Reactive Lymphs % 1 H Monocytes % (Manual) 4 Platelet Estimate Normal Large Platelets Hypochromasia (manual) Moderate Poikilocytosis (manual Slight Anisocytosis (manual) Slight Tear Drop Cells Slight Ovalocytes Slight Schistocytes Slight PT INR APTT pO2 VBG pH VBG pCO2 VBG HCO3 VBG Total CO2 VBG O2 Sat (Calc) VBG Base Excess VBG Potassium Glucose Lactate FiO2 Crit Value Called To Crit Value Called By Crit Value Read Back Blood Gas Notified Time Sodium 128 L 132 Potassium 5.6 H 3.1 L Chloride 90 L 86 L Carbon Dioxide 24 29 Anion Gap 20 20 BUN 42 H 41 H Creatinine 1.4 H 1.3 H Est GFR ( Amer) 46 51 Est GFR (Non-Af Amer) 38 42 Random Glucose 83 122 H Calcium 8.1 L 7.8 L Phosphorus Magnesium Total Bilirubin 0.9 AST 61 H D ALT 9 D Alkaline Phosphatase 177 H Troponin I NT-Pro-B Natriuret Pep Total Protein 6.4 Albumin 2.7 L Globulin 3.7 Albumin/Globulin Ratio 0.7 L Venous Blood Potassium 08/31/18 04:35 WBC RBC Hgb Hct MCV MCH MCHC RDW Plt Count MPV Neut % (Auto) Lymph % (Auto) [place] % (Auto) Eos % (Auto) Baso % (Auto) Neut # (Auto) Lymph # (Auto) [place] # (Auto) Eos # (Auto) Baso # (Auto) Neutrophils % (Manual) Lymphocytes % (Manual) Reactive Lymphs % Monocytes % (Manual) Platelet Estimate Large Platelets Hypochromasia (manual) Poikilocytosis (manual Anisocytosis (manual) Tear Drop Cells Ovalocytes Schistocytes PT INR APTT pO2 VBG pH VBG pCO2 VBG HCO3 VBG Total CO2 VBG O2 Sat (Calc) VBG Base Excess VBG Potassium Glucose Lactate FiO2 Crit Value Called To Crit Value Called By Crit Value Read Back Blood Gas Notified Time Sodium 134 Potassium 3.2 L Chloride 85 L Carbon Dioxide 35 H Anion Gap 17 BUN 39 H Creatinine 1.4 H Est GFR ( Amer) 46 Est GFR (Non-Af Amer) 38 Random Glucose 114 H Calcium 8.0 L Phosphorus Magnesium Total Bilirubin AST ALT Alkaline Phosphatase Troponin I NT-Pro-B Natriuret Pep Total Protein Albumin Globulin Albumin/Globulin Ratio Venous Blood Potassium Microbiology 08/29/18 12:00 Blood Blood Culture - Preliminary NO GROWTH AFTER 48 HOURS 08/29/18 11:32 Blood Blood Culture - Preliminary NO GROWTH AFTER 48 HOURS Assessment and Plan (1) Adnexal mass Status: Acute (2) Malignant pleural effusion Status: Acute (3) Ascites Status: Acute (4) Breast CA Status: Acute (5) Leukocytosis Status: Acute - Assessment and Plan (Free Text) Assessment: A/P- 58 year old female with stage 4 metastatic inflamamtory breast cancer with also 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 afebrile high leukocytosis most likely reactive in nature from her malignancy itself. leukocytosis trending down today. ascites most likely as a result of her malignancy as well. LE clots as per US but nonocclusive. TTE- 25 % EF as per report. RLE posterior skin changes could be secondary to skin mets as well. blood cx- neg x 2 07/2018 admission pleural fluid cx- negative and negative for AFB and negative for fungal as well. PLan- prognosis poor. no clear evidence of infection at this time, however, in light of her multiple comorbidities and decreased immune status secondary to her metastatic caner advise to cover empirically for both gram positive and gram negatives specially since she was also recently hospitalized to cover for nosocomial pathogens. hence no objection to empiric vanco and zosyn initiated by admitting doc. day #2 keep vanco trough <15. would advise if breana is being d./c to make sure she is on oral abx for at least 5-7 days ( levaquin and bactrim) since most likely pt. would get neutropneic post chemo and would need antibiotics . check UA and urine cx. asked MET[employer] CHANGES RECORDS CLERK to ascertain if ascites fluid was sent for cell count and culture and cytology. All above d/w METER CHANGES RECORDS CLERK menita.
[2018-08-31 12:48] VITALS: PULSE 98
--- NOTE | 2018-08-31 23:23 | CP.PCM.DIS ---
Provider - Provider Date of Admission: 08/29/18 13:07 Attending physician: Kristen Norris MD Consults: 08/29/18 10:44 Hematology Oncology Consult Routine Comment: Consulting Provider: Kishore Ward Consulting Physician: Kishore Ward Reason for Consult: Stage IV metastatic breas ca 08/29/18 12:56 Physician Consult Stat Comment: Consulting Provider: Serg Pires Consulting Physician: Serg Pires Reason for Consult: moderate ascites, dyspnea 08/29/18 22:03 Infectious Disease Consult Routine Comment: Consulting Provider: Arun Dexter Consulting Physician: Arun Dexter Reason for Consult: Sepsis 08/30/18 03:46 Nursing Referral for Wound Care Routine Comment: Physician Instructions: Reason For Exam: Sacral redness 08/30/18 04:24 Case Management Referral Routine Comment: Physician Instructions: Reason For Exam: Reason for Referral: VNA Eval Social Work Referral Routine Comment: Pt wants homemaker Physician Instructions: Reason For Exam: Pt wants homemaker Time Spent in preparation of Discharge (in minutes): 30 Diagnosis - Discharge Diagnosis (1) Anasarca Status: Acute Priority: High (2) Sepsis Status: Acute Priority: High (3) Ascites Status: Acute (4) Adnexal mass Status: Acute Priority: High (5) DVT of lower extremity, bilateral Status: Acute Priority: High (6) Dyspnea Status: Acute Priority: High (7) Malignant pleural effusion Status: Acute Priority: High (8) Pleural effusion Status: Acute Priority: High (9) Coagulopathy Status: Acute (10) Stage IV breast cancer in female Status: Acute Hospital Course - Lab Results Lab Results: Micro Results 08/29/18 12:00 Blood Blood Culture - Preliminary NO GROWTH AFTER 48 HOURS 08/29/18 11:32 Blood Blood Culture - Preliminary NO GROWTH AFTER 48 HOURS Most Recent Lab Values WBC 25.5 K/uL (4.8-10.8) H 08/31/18 04:35 RBC 3.24 Mil/uL (3.80-5.20) L 08/31/18 04:35 Hgb 8.2 g/dL (12.0-16.0) L 08/31/18 04:35 Hct 27.0 % (34.0-47.0) L 08/31/18 04:35 MCV 83.2 fl (81.0-99.0) 08/31/18 04:35 MCH 25.2 pg (27.0-31.0) L 08/31/18 04:35 MCHC 30.3 g/dL (33.0-37.0) L 08/31/18 04:35 RDW 25.5 % (11.5-14.5) H 08/31/18 04:35 Plt Count 261 K/uL (130-400) 08/31/18 04:35 MPV 8.1 fl (7.2-11.7) 08/31/18 04:35 Neut % (Auto) 91.4 % (50.0-75.0) H 08/31/18 04:35 Lymph % (Auto) 3.7 % (20.0-40.0) L 08/31/18 04:35 [place] % (Auto) 4.4 % (0.0-10.0) 08/31/18 04:35 Eos % (Auto) 0.4 % (0.0-4.0) 08/31/18 04:35 Baso % (Auto) 0.1 % (0.0-2.0) 08/31/18 04:35 Neut # (Auto) 23.3 K/uL (1.8-7.0) H 08/31/18 04:35 Lymph # (Auto) 0.9 K/uL (1.0-4.3) L 08/31/18 04:35 [place] # (Auto) 1.1 K/uL (0.0-0.8) H 08/31/18 04:35 Eos # (Auto) 0.1 K/uL (0.0-0.7) 08/31/18 04:35 Baso # (Auto) 0.0 K/uL (0.0-0.2) 08/31/18 04:35 Neutrophils % (Manual) 88 % (42-75) H 08/31/18 04:35 Lymphocytes % (Manual) 7 % (20-50) L 08/31/18 04:35 Reactive Lymphs % 1 % (0-0) H 08/31/18 04:35 Monocytes % (Manual) 4 % (0-10) 08/31/18 04:35 Platelet Estimate Normal (NORMAL) 08/31/18 04:35 Large Platelets Present 08/29/18 09:00 Hypochromasia (manual) Moderate 08/31/18 04:35 Poikilocytosis (manual Slight 08/31/18 04:35 Anisocytosis (manual) Slight 08/31/18 04:35 Tear Drop Cells Slight 08/31/18 04:35 Ovalocytes Slight 08/31/18 04:35 Schistocytes Slight 08/31/18 04:35 PT 15.4 Seconds (9.8-13.1) H 08/29/18 09:00 INR 1.4 08/29/18 09:00 APTT 26.6 Seconds (25.6-37.1) 08/29/18 09:00 pO2 41 mm/Hg (30-55) 08/29/18 11:58 VBG pH 7.44 (7.32-7.43) H 08/29/18 11:58 VBG pCO2 47 mmHg (40-60) 08/29/18 11:58 VBG HCO3 29.6 mmol/L 08/29/18 11:58 VBG Total CO2 33.3 mmol/L (22-28) H 08/29/18 11:58 VBG O2 Sat (Calc) 80.6 % (40-65) H 08/29/18 11:58 VBG Base Excess 6.6 mmol/L (0.0-2.0) H 08/29/18 11:58 VBG Potassium 6.5 mmol/L (3.6-5.2) H* 08/29/18 11:58 Sodium 127.0 mmol/L (132-148) L 08/29/18 11:58 Chloride 95.0 mmol/L (98-107) L 08/29/18 11:58 Glucose 100 mg/dL (65-105) 08/29/18 11:58 Lactate 1.9 mmol/L (0.7-2.1) 08/29/18 11:58 FiO2 21.0 % 08/29/18 11:58 Crit Value Called To Graeme parra md 08/29/18 11:58 Crit Value Called By [id number] 08/29/18 11:58 Crit Value Read Back Y 08/29/18 11:58 Blood Gas Notified Time 1202 08/29/18 11:58 Sodium 134 mmol/l (132-148) 08/31/18 04:35 Potassium 3.2 MMOL/L (3.6-5.0) L 08/31/18 04:35 Chloride 85 mmol/L (98-107) L 08/31/18 04:35 Carbon Dioxide 35 mmol/L (22-30) H 08/31/18 04:35 Anion Gap 17 (10-20) 08/31/18 04:35 BUN 39 mg/dl (7-17) H 08/31/18 04:35 Creatinine 1.4 mg/dl (0.7-1.2) H 08/31/18 04:35 Est GFR ( Amer) 46 08/31/18 04:35 Est GFR (Non-Af Amer) 38 08/31/18 04:35 Random Glucose 114 mg/dL (65-105) H 08/31/18 04:35 Calcium 8.0 mg/dL (8.4-10.2) L 08/31/18 04:35 Phosphorus 5.2 mg/dl (2.5-4.5) H 08/29/18 11:32 Magnesium 2.6 MG/DL (1.6-2.3) H 08/29/18 11:32 Total Bilirubin 0.9 mg/dl (0.2-1.3) 08/30/18 04:35 AST 61 U/L (14-36) H D 08/30/18 04:35 ALT 9 U/L (9-52) D 08/30/18 04:35 Alkaline Phosphatase 177 U/L (38-126) H 08/30/18 04:35 Troponin I 0.0630 ng/mL (0.00-0.120) 08/29/18 11:32 NT-Pro-B Natriuret Pep 43768 pg/ml (0-900) H 08/29/18 11:32 Total Protein 6.4 G/DL (6.3-8.2) 08/30/18 04:35 Albumin 2.7 g/dL (3.5-5.0) L 08/30/18 04:35 Globulin 3.7 gm/dL (2.2-3.9) 08/30/18 04:35 Albumin/Globulin Ratio 0.7 (1.0-2.1) L 08/30/18 04:35 Venous Blood Potassium 6.5 mmol/L (3.6-5.2) H* 08/29/18 11:58 Discharge Exam - Head Exam Head Exam: ATRAUMATIC, NORMAL INSPECTION, NORMOCEPHALIC Discharge Plan - Discharge Medications Prescriptions: levoFLOXacin [Levaquin] 500 mg PO DAILY #7 tab Sodium Bicarbonate Tab 650 mg PO BID #14 tab - Follow Up Plan Condition: FAIR Disposition: HOME/ ROUTINE Instructions: Dependent Edema (DC), Breast Cancer (DC) Additional Instructions: follow up appt with oncologist tomorrow 09/01/18 at 12:00pm D[facility] [employer] pharmacy picking tech time 11;00AM TRIP NUMBER [id number] Dining Secretary number Referrals: Kishore Ward MD [Staff Provider] - Kristen Norris MD [Staff Provider] -
--- NOTE | 2018-08-31 23:47 | CP.PCM.PN ---
Subjective - Date & Time of Evaluation Date of Evaluation: 08/31/18 Time of Evaluation: 12:00 - Subjective Subjective: Feeling better Objective - Vital Signs/Intake and Output Vital Signs (last 24 hours): Temp Pulse Resp BP Pulse Ox 97.3 F L 98 H 18 100/62 96 08/31/18 12:47 08/31/18 12:47 08/31/18 12:47 08/31/18 12:47 08/31/18 12:47 - Labs Labs: 08/31/18 04:35 08/31/18 04:35 PT 15.4 Seconds (9.8-13.1) H 08/29/18 09:00 INR 1.4 08/29/18 09:00 APTT 26.6 Seconds (25.6-37.1) 08/29/18 09:00 - Head Exam Head Exam: ATRAUMATIC - Eye Exam Eye Exam: Normal appearance - ENT Exam ENT Exam: Mucous Membranes Dry - Respiratory Exam Respiratory Exam: Decreased Breath Sounds - Cardiovascular Exam Cardiovascular Exam: +S1, +S2 - GI/Abdominal Exam GI & Abdominal Exam: Normal Bowel Sounds Assessment and Plan (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
== END 2018-08-31 15:30 | disposition home or self-care (01) | DRG 584 ==
LOC: H.ER 07:49 → H.ERHOLD 13:07 → H.TEL 21:16
PROVIDERS: ADMIT Internal Medicine; ATTEND Internal Medicine
PROC: 0W9G3ZZ Drainage of Peritoneal Cavity, Percutaneous Approach (ICD-10-PCS; principal; 2018-08-29)
DX: A41.9 Sepsis, unspecified organism (principal); I26.99 Other pulmonary embolism without acute cor pulmonale; N17.9 Acute kidney failure, unspecified; I82.403 Acute embolism and thrombosis of unspecified deep veins of lower extremity, bilateral; J91.0 Malignant pleural effusion; C78.00 Secondary malignant neoplasm of unspecified lung; C77.3 Secondary and unspecified malignant neoplasm of axilla and upper limb lymph nodes; R18.0 Malignant ascites; E87.5 Hyperkalemia; I50.9 Heart failure, unspecified; J44.9 Chronic obstructive pulmonary disease, unspecified; C78.6 Secondary malignant neoplasm of retroperitoneum and peritoneum; C50.919 Malignant neoplasm of unspecified site of unspecified female breast; Z86.718 Personal history of other venous thrombosis and embolism; D64.9 Anemia, unspecified; F41.9 Anxiety disorder, unspecified; Z17.0 Estrogen receptor positive status [ER+]; K80.20 Calculus of gallbladder without cholecystitis without obstruction; D68.9 Coagulation defect, unspecified; Z99.81 Dependence on supplemental oxygen

== ENCOUNTER 2018-09-03 17:46 | Inpatient (IN) | payer OTHER ==
[2018-09-03 17:46] VITALS: BMI 23.7
[2018-09-03 19:17] LABS: BASO % 0.1 % (0.0-2.0); HEMOGLOBIN 6.9 g/dL (12.0-16.0); LYMPH # 0.6 K/uL (1.0-4.3); LYMPH % 3.1 % (20.0-40.0); MEAN CELL VOLUME 82.4 fl (81.0-99.0); MEAN CORPUSCULAR HEMOGLOBIN 26.1 pg (27.0-31.0); MEAN CORPUSCULAR HGB CONC 31.6 g/dL (33.0-37.0); MEAN PLATELET VOLUME 8.1 fl (7.2-11.7); MONO # 0.3 K/uL (0.0-0.8); MONO % 1.3 % (0.0-10.0); NEUT # 19.6 K/uL (1.8-7.0); NEUT % 95.5 % (50.0-75.0); PLATELET COUNT 189 K/uL (130-400); RBC 2.66 Mil/uL (3.80-5.20); RED CELL DISTRIBUTION WIDTH 24.7 % (11.5-14.5); WHITE BLOOD COUNT 20.6 K/uL (4.8-10.8)
--- NOTE | 2018-09-03 19:24 | ED PDOC ---
HPI: SOB/CHF/COPD Time Seen by Provider: 09/03/18 18:38 Chief Complaint (Nursing): Abdominal Pain Chief Complaint (Provider): Shortness of breath History Per: Patient, Family (sis) History/Exam Limitations: no limitations Onset/Duration Of Symptoms: Days (3x days), Intermittent Episodes Current Symptoms Are (Timing): Gone Now Severity: Moderate Additional Complaint(s): 58 year old female with metastatic breast cancer presents to the ED for an evaluation of intermittent chest pain and shortness of breath that started 2x days ago. In ED, patient states that her shortness of breath is better, and has not experienced chest pain since last night. Patient also reports having a cough and bilateral leg swelling ongoing for 4x months. Patient denies having a history of asthma. Of note: Patient states she started chemotherapy for breast cancer 2x days ago. PMD: Micheal Brown MD Past Medical History Reviewed: Historical Data, Nursing Documentation, Vital Signs Vital Signs: Last Vital Signs Temp 98.7 F 09/03/18 17:50 Pulse 106 H 09/03/18 17:50 Resp 19 09/03/18 17:50 BP 103/55 L 09/03/18 17:50 Pulse Ox 96 09/03/18 17:50 JUAREZ Report Viewed: Yes - Medical History PMH: Anemia, Anxiety, CHF, Deep Vein Thrombosis, Malignancy (breast cancer), Peripheral Edema, Pulmonary Embolism Denies: Arthritis, Asthma, HIV, Chronic Kidney Disease - Surgical History Surgical History: - Family History Family History: States: No Known Family Hx - Social History Current smoker - smoking cessation education provided: No Alcohol: None Drugs: Denies - Home Medications Home Medications: Ambulatory Orders Medication Instructions Recorded Multivit/Folic Acid/Vit K1 1 tab PO DAILY 08/04/18 [One-A-Day Women's 50 Plus Tab] Apixaban [Eliquis] 5 mg PO BID tab 08/18/18 Ferrous Gluconate 324 mg PO BID 08/29/18 Furosemide [Lasix] 20 mg PO BID 08/29/18 Tamoxifen Citrate 20 mg PO DAILY 08/29/18 Sodium Bicarbonate Tab 650 mg PO BID #14 tab 08/30/18 levoFLOXacin [Levaquin] 500 mg PO DAILY #7 tab 08/31/18 Metoprolol Tartrate [Lopressor] 12.5 mg PO Q6 09/03/18 Multivitamin [Daily Multiple 1 tab PO DAILY 09/03/18 Vitamin] traMADol [Ultram] 50 mg PO Q6 PRN 09/03/18 - Allergies Allergies/Adverse Reactions: Allergies Allergy/AdvReac Type Severity Reaction Status Date / Time acetaminophen [From Tylenol] AdvReac Unknown SHORTNESS Verified 08/29/18 08:11 OF BREATH Review of Systems ROS Statement: Except As Marked, All Systems Reviewed And Found Negative Constitutional: Positive for: Weakness Cardiovascular: Positive for: Chest Pain (intermittent for 3x days. last experie nced chest pain last night.) Respiratory: Positive for: Cough, Shortness of Breath (intermittent, better now) Musculoskeletal: Positive for: Other (bilateral leg swelling) Physical Exam - Reviewed Nursing Documentation Reviewed: Yes Vital Signs Reviewed: Yes - Physical Exam Appears: Positive for: Non-toxic, No Acute Distress. Negative for: Well (cachectic) Head Exam: Positive for: ATRAUMATIC, NORMOCEPHALIC Skin: Positive for: Normal Color, Warm, Dry Cardiovascular/Chest: Positive for: Regular Rate, Rhythm, Other (large right fungating necrotic tissue to right breast. port to left chest wall.) Respiratory: Positive for: Normal Breath Sounds. Negative for: Respiratory Distress Gastrointestinal/Abdominal: Positive for: Distended, Other (fungating necrotic mass to umbilicus. bandage over right abdominal wall tatus post probable paracentesis) Extremity: Positive for: Swelling (edematous bilateral legs with serous drainage.) Neurologic/Psych: Positive for: Alert, Oriented (3x) - Laboratory Results Result Diagrams: 09/04/18 11:25 09/04/18 11:25 - ECG O2 Sat by Pulse Oximetry: 96 (RA) Pulse Ox Interpretation: Normal Medical Decision Making Medical Decision Makin:38 Initial impression: 58 year old female with shortness of breath and chest pain. Initial plan: * XRay chest portable * EKG * CMP * troponin I * udip * CBC * PT and PTT * urinalysis * reevaluation 19:00 Patient is being signed out by me to Yeimy Palafox MD pending workup and admission to . Scribe Attestation: Documented by Mariaa Ballard, acting as a scribe for Sheyla Chavez MD. Provider Scribe Attestation: All medical record entries made by the Scribe were at my direction and personally dictated by me. I have reviewed the chart and agree that the record accurately reflects my personal performance of the history, physical exam, medical decision making, and the department course for this patient. I have also personally directed, reviewed, and agree with the discharge instructions and disposition. Disposition - Clinical Impression Clinical Impression: Anemia - Patient ED Disposition Is Patient to be Admitted: Transfer of Care - Disposition Disposition Time: 19:00 Condition: STABLE Patient Signed Over To: Yeimy Palafox
[2018-09-03 19:36] LABS: INR 1.6; PROTHROMBIN TIME 17.8 Seconds (9.8-13.1)
--- NOTE | 2018-09-03 19:36 | ED PDOC ---
- Laboratory Results Result Diagrams: 09/03/18 19:08 09/03/18 19:08 - ECG O2 Sat by Pulse Oximetry: 96 Medical Decision Making Medical Decision Makin:00 Patient is being signed out to me by Sheyla Chavez MD pending workup an admission to . labs show worsening anemia wbc elevated, but improved from prior 21:03 Calling 21:08 Discussed case with . Requesting patient be admitted for observation. Transfuse 1 unit. Consult for hemat/onc placed. pt understand risk benefit of blood transfusion and signed consent. Scribe Attestation: Documented by Mariaa Ballard, acting as a scribe for Yeimy Palafox MD. Provider Scribe Attestation: All medical record entries made by the Scribe were at my direction and personally dictated by me. I have reviewed the chart and agree that the record accurately reflects my personal performance of the history, physical exam, medical decision making, and the department course for this patient. I have also personally directed, reviewed, and agree with the discharge instructions and disposition. Disposition Counseled Patient/Family Regarding: Studies Performed, Diagnosis - Clinical Impression Clinical Impression: Anemia - POA Present On Arrival: None - Disposition Disposition: Admitted as In-Patient Disposition Time: 21:00 Condition: STABLE
[2018-09-03 19:39] LABS: PARTIAL THROMBOPLASTIN TIME 28.6 Seconds (25.6-37.1)
[2018-09-03 19:41] LABS: ALB/GLOB RATIO 0.8 (1.0-2.1); ALBUMIN 2.6 g/dL (3.5-5.0); CALCIUM 7.9 mg/dL (8.4-10.2)
[2018-09-03 19:44] LABS: TROPONIN I 0.038 ng/mL (0.00-0.120)
[2018-09-03] MEDS ORDERED: Sodium Chloride 0.9% 1,000 ML IV STA (21:11)
[2018-09-03 21:26] LABS: SQUAMOUS EPITHIAL 4 /hpf (0-5); URINE BACTERIA RARE (<OCC); URINE BILIRUBIN NEGATIVE (NEGATIVE); URINE BLOOD LARGE (NEGATIVE); URINE CLARITY CLOUDY (Clear); URINE COLOR YELLOW (YELLOW); URINE GLUCOSE (UA) NEG (NEGATIVE); URINE LEUKOCYTE ESTERASE TRACE Leu/uL (Negative); URINE PROTEIN 30 mg/dL (NEGATIVE); URINE URIC ACID CRYSTALS FEW /hpf (<OCC); URINE UROBILINOGEN 0.2-1.0 mg/dL (0.2-1.0)
[2018-09-03 21:34] LABS: ANISOCYTOSIS SLIGHT; LYMPHOCYTE 3 % (20-50); MICROCYTOSIS SLIGHT; MONOCYTE 1 % (0-10); NEUTROPHIL 96 % (42-75); PLATELET ESTIMATE NORMAL (NORMAL); POIKILOCYTOSIS SLIGHT; TOTAL CELLS COUNTED 100
[2018-09-03 21:35] LABS: HYPOCHROMIC SLIGHT; LARGE PLATELETS PRESENT; OVALOCYTES MODERATE
[2018-09-03] MEDS: Sodium Chloride 0.9% 1,000 ML IV SCH (23:55)
[2018-09-04] MEDS: Albuterol-Ipratrop 3 mg / 0.5 (3 ml) UD INH SCH ×5 (08:56→20:45)
[2018-09-04] MEDS: Multivitamin With Minerals Tab PO SCH ×2 (08:58→10:32)
[2018-09-04] MEDS ORDERED: FOLIC ACID PO SCH (09:00)
[2018-09-04] MEDS ORDERED: VIT K1 PO SCH (09:00)
[2018-09-04] MEDS ORDERED: MULTIVIT PO SCH (09:00)
--- NOTE | 2018-09-04 09:07 | CARD ---
APPROVED REPORT Date of service: 09/03/2018 EKG Measurement Heart [id number] <Conclusion> Sinus rhythm with premture ventricular complexes Nonspecific ST and T wave abnormality Abnormal ECG
[2018-09-04] MEDS ORDERED: Chlorhexidine Gluconate 1 APPL/PKT TP ONE (09:32)
[2018-09-04] MEDS ORDERED: Acetylcysteine 10% 4 ML IH ONE (09:48)
--- NOTE | 2018-09-04 10:03 | RAD ---
Date of service: 09/03/2018 HISTORY: SOB COMPARISON: 08/29/2018. FINDINGS: Left-sided MediPort terminates at the cavoatrial junction. LUNGS: The lungs are well inflated. There is severe pulmonary venous congestion and moderate interstitial pulmonary edema. PLEURA: Small effusions. No pneumothorax. CARDIOVASCULAR: Moderate cardiomegaly and prominent central vasculature. No aortic atherosclerotic calcifications present. OSSEOUS STRUCTURES: Within normal limits for the patient's age. VISUALIZED UPPER ABDOMEN: Normal. OTHER FINDINGS: None. IMPRESSION: Moderate congestive heart failure.
--- NOTE | 2018-09-04 10:26 | PCM.ANES ---
Anesthesia Emergent Intubation - Diagnosis Working Diagnosis:: Respiratory insufficiency - Consult Reason for Consult:: Intubation - Intubation Attempts Previous Number of Intubation Attempts:: 0 - Pre-Intubation Vital Signs Oxygen Delivery Method: Venturi Mask Level Of Consciousness: Combative, Disoriented - Airway Management Oropharyngeal Area Suctioned: Yes Inhalation: Yes Rapid Sequence: No Possible Aspiration: No - Method of Intubation Intubation Method: Oral ETT ETT Size: 8.0 Lipline@: 20 Easy: Yes Atramatic: No - Intubation Devices Jorge Blade Size Used: 3 Eileen Forcepts Used: No Jackson Scope Used: No Fiber Optic Scope: No - Placement Confirmation Breath Sounds Present & Equal Bilaterally: Yes Gurgling Sounds Not Audible at Epigastrum: Yes Positive EtCO2: Yes Portable CXR: No Recommendations: Ventilator, Chest X Ray, ABG
--- NOTE | 2018-09-04 10:29 | PCM.RRT ---
<OlvinTamra - Last Filed: 09/04/18 10:59> - Constitutional Appears: Toxic, Confused, Chronically Ill - Respiratory Exam Additional comments: Breast- greenish brown multinodular areas over right breast; left breast-skin without erythema or nodules Chest- dressing with blood at site of paracentesis - Cardiovascular Exam Cardiovascular Exam: Tachycardia - GI/Abdominal Exam GI & Abdominal Exam: Distended. absent: Guarding, Rigid, Tenderness - Neurological Exam Neurological Exam: absent: Alert, Awake - Extremities Exam Additional comments: erythematous areas of open skin noted on b/l calves with hyperpigmented areas Plan - Assessment of Findings&Treatment Plan PAINTER HELPER SIGN initial time:9:56am PAINTER HELPER SIGN called by nurse because of respiratory distress PAINTER HELPER SIGN end time: 10:27am PAINTER HELPER SIGN response time: [address] Teran present PAINTER HELPER SIGN was called on Ms. Reese because of respiratory distress. She is a 58 y/o F with medical hx of CFH and metastatic breast cancer s/p paracentesis & transfusion of 1 prbc for hemoblogin of 6.9. As per nurse, patient was slightly confused this AM, and coughed up blood tinged secretions. Initial VS: spo2 -77% on 2L via NC, BP- 109/64, p-121 RR->30 with labored breathing Interventions: -NC 2L increased to 12L- spo2-78%; -NC changed to nonrebreather 10L; spo2 increased to 85% with continued labored breathing -ABG ordered Repeat VS prior to lasix was the following: BP-116/67 spo2-88% on NRB P-123bpm Lasix 4omg IV given Repeat vitals- 127/57, spo2-92% rr> 30 with labored breathing spo2 88% on NRB 58 y/o F with medical hx of CFH and metastatic breast cancer s/p paracentesis & transfusion of 1 prbc in respiratory distress. -ABG showeded respiratory failure with respiratory acidosis. -As per nurse patient declined hospice care. -Patient's mother was called and stated patient is full code. -Decision was made to transfer patient to ICU for intubation and further management. <Eri Teran - Last Filed: 09/04/18 13:11> Attending/Attestation - Attestation I have personally seen and examined this patient.: Yes I have fully participated in the care of the patient.: Yes I have reviewed all pertinent clinical information, including history, physical exam and plan: Yes Notes (Text): Acute Hypoxemic Respiratory Failure prob due to Pulmonary Vascular Congestion/Pulm Edema ( EF 20-25% , received IVF and PRBC transfusion )worsened by Ascites however need to r/o other etiology ( ie: PE, PNA) - Saturating 85% despite 100% NRBM, pt is confused, tachypneic, tachycardic , + rales all over -pt needs to be intubated - Lasix IV 40 mg given - Transfer to ICU - Discussed case with Optical Instrument Repairer - Dr Lara -PMD - Dr Norris informed of event - Pt is Full Code - mother is Surrogate Decision maker
[2018-09-04] MEDS: Sodium Chloride 0.9% 1,000 ML IV SCH (10:30)
[2018-09-04] MEDS ORDERED: Propofol 10 mg/ml 3,000 MG/300 ML VIAL ONE (11:11)
[2018-09-04] MEDS: Propofol 10 mg/ml 1,000 MG/100 ML VIAL IV SCH (11:20)
[2018-09-04 11:41] LABS: HEMOGLOBIN 9.6 g/dL (12.0-16.0); LYMPH # 0.6 K/uL (1.0-4.3); LYMPH % 2.1 % (20.0-40.0); MEAN CELL VOLUME 86.3 fl (81.0-99.0); MEAN CORPUSCULAR HEMOGLOBIN 27.6 pg (27.0-31.0); MEAN PLATELET VOLUME 8.6 fl (7.2-11.7); MONO # 0.3 K/uL (0.0-0.8); MONO % 1.2 % (0.0-10.0); NEUT # 27.9 K/uL (1.8-7.0); NEUT % 96.7 % (50.0-75.0); RBC 3.46 Mil/uL (3.80-5.20); RED CELL DISTRIBUTION WIDTH 21.8 % (11.5-14.5); WHITE BLOOD COUNT 28.9 K/uL (4.8-10.8)
[2018-09-04 12:14] LABS: TROPONIN I 0.045 ng/mL (0.00-0.120)
[2018-09-04 12:15] LABS: ALB/GLOB RATIO 0.8 (1.0-2.1); ALBUMIN 2.7 g/dL (3.5-5.0); CALCIUM 7.7 mg/dL (8.4-10.2)
[2018-09-04] MEDS ORDERED: Propofol 10 mg/ml 1,000 MG/100 ML VIAL IV SCH (12:30)
--- NOTE | 2018-09-04 12:41 | RAD ---
Date of service: 09/04/2018 HISTORY: DYSPNEA COMPARISON: Portable chest 09/03/2018. FINDINGS: LUNGS: Patient has now been intubated with endotracheal tube terminating 4 cm above the loren. Left MediPort unchanged in position. Hazy density at the right perihilar and upper lung zones with air bronchograms suspicious for interval pneumonia, possible aspiration prior to intubation. Clinically correlate further. PLEURA: No significant pleural effusion identified, no pneumothorax apparent. CARDIOVASCULAR: No aortic atherosclerotic calcification present. Cardiac silhouette remains prominent with possible pulmonary vascular congestion bilaterally. OSSEOUS STRUCTURES: No significant abnormalities. VISUALIZED UPPER ABDOMEN: Normal. OTHER FINDINGS: None. IMPRESSION: Adequate intubation as discussed above. Right perihilar/upper lobe infiltrate identified in the interval. Underlying pulmonary vascular congestion apparent. Continued clinical and radiographic monitoring advised.
[2018-09-04 13:21] LABS: ABG ALLEN TEST YES; ARTERIAL BLOOD GAS HCO3 24.1 mmol/L (21-28); ARTERIAL BLOOD GAS O2 SAT 89.8 % (95-98); ARTERIAL BLOOD GAS PCO2 64 mm/Hg (35-45); ARTERIAL BLOOD GAS PH 7.25 (7.35-7.45); ARTERIAL BLOOD GAS PO2 57 mm/Hg (80-100); ARTERIAL BLOOD GAS TCO2 30.1 mmol/L (22-28)
[2018-09-04] MEDS ORDERED: Midazolam 2 MG/2 ML VIAL ONE (19:30)
[2018-09-04] MEDS ORDERED: Midazolam 2 MG/2 ML VIAL IV ONE (19:30)
--- NOTE | 2018-09-04 19:44 | PCM.ANES ---
Anesthesia Emergent Intubation - Diagnosis Working Diagnosis:: pt extubated prematurely - Consult Reason for Consult:: icu consult for premature extubation - Intubation Attempts Previous Number of Intubation Attempts:: 1 (ICU attending tried previously and called for help) - Pre-Intubation Vital Signs Blood Pressure: 95/66 Heart Rate: 90 Respiratory Rate: 20 O2 Sat: 93 (ambu bag) Oxygen Delivery Method: Ambu-Bag Level Of Consciousness: Sedated, Somnolent - Airway Management Oropharyngeal Area Suctioned: Yes Inhalation: Yes Cricoid Pressure: Yes Possible Aspiration: Yes - Method of Intubation ETT Size: 7 Lipline@: 21 - Intubation Devices Jorge Blade Size Used: 3 - Placement Confirmation Breath Sounds Present & Equal Bilaterally: Yes Positive EtCO2: Yes Recommendations: Ventilator
--- NOTE | 2018-09-04 20:00 | CP.CCUPN ---
CCU Subjective - Physician Review Subjective (Free Text): 09/04/18 The patient was Seen and examined by me at the bedside, Medical records reviewed and Management issues were discussed and formulated with the house staff. Events reviewed Patient is 58 years old female with past medical history of anemia, anxiety, CHF, deep venous thrombosis, peripheral edema, pulmonary embolism and stage IV advanced metastatic breast cancer Status post chemotherapy 2 days ago Who initially presented to the emergency room on 09/03 for evaluation of intermittent chest pain and shortness of breath for the past 2 days In the emergency room patient stated that this chest pain resolved and breathing got better On exam she was comfortable and was admitted to the medical service Transfused 1 unit of packed red blood cell for hemoglobin of 6.9 also of note Patient recently underwent paracentesis This morning [employer]OL [employer]ER was called due to respiratory distress, tachycardia and patient found to be confused and respiratory distress BP was stable but she was tachycardic, tachypneic and saturating 88% on non- rebreathing mask she is to receive a stat dose of IV Lasix and transferred to the intensive care unit Upon admitting to the to the ICU she was emergently intubated by anesthesia and mechanically ventilated Currently She looks comfortable sedated and orally intubated blood pressure is better and afebrile 09/04/2018: Portable chest LUNGS: Patient has now been intubated with endotracheal tube terminating 4 cm above the loren. Left MediPort unchanged in position. Hazy density at the right perihilar and upper lung zones with air bronchograms suspicious for interval pneumonia, possible aspiration prior to intubation. Clinically correlate further. PLEURA: No significant pleural effusion identified, no pneumothorax apparent. CARDIOVASCULAR: No aortic atherosclerotic calcification present. Cardiac silhouette remains prominent with possible pulmonary vascular congestion bilaterally. CCU Objective - Vital Signs / Intake & Output Vital Signs (Last 4 hours): Vital Signs Temp Pulse Resp BP Pulse Ox 09/04/18 19:44 90 20 95/66 L 93 L 02/11/19 19:00 126 H 17 115/70 93 L 09/04/18 18:00 118 H 14 106/67 94 L 09/04/18 17:21 107/71 09/04/18 17:00 116 H 13 107/71 94 L 09/04/18 16:09 96 09/04/18 16:00 98.0 F 110 H 13 87/55 L 95 Intake and Output (Last 8hrs): Intake & Output 09/04/18 09/04/18 09/04/18 06:59 14:59 22:59 Intake Total 525 897 425 Balance 525 897 425 Intake: IV 522 425 Blood Product 325 325 Apheresis Rbc Cp2d As3 Lr 325 2nd Unit [id number] Red Blood Cells Cpd As1 0 325 Lr Unit [id number] Other 200 50 Apheresis Rbc Cp2d As3 Lr 150 2nd Unit [id number] Red Blood Cells Cpd As1 50 50 Lr Unit [id number] - Physical Exam Head: Positive for: Atraumatic, Normocephalic Pupils: Positive for: PERRL Extroacular Muscles: Positive for: EOMI Conjunctiva: Positive for: Normal. Negative for: Injected, Icteric Mouth: Positive for: Moist Mucous Membranes Nose (Internal): Positive for: Normal Inspection Neck: Positive for: Normal Range of Motion, Trachea Midline. Negative for: Meningeal Signs, MIDLINE TENDERNESS, Paraspinal Tenderness, JVD, Lymphadenopathy, Bruit, Other Respiratory/Chest: Positive for: Rales, Rhonchi, Tachypneic. Negative for: Good Air Exchange, Respiratory Distress Cardiovascular: Positive for: Regular Rate and Rhythm, Normal S1, S2, Peripheal Pulses Present. Negative for: Murmurs, Irregular Rhythm Abdomen: Positive for: Normal Bowel Sounds. Negative for: Tenderness, Distention - Medications Active Medications: Active Medications Generic Name Dose Route Start Last Admin Trade Name Freq PRN Reason Stop Dose Admin Albuterol/Ipratropium 3 ml 09/04/18 12:00 09/04/18 15:54 Duoneb 3 Mg/0.5 Mg (3 Ml) Ud INH 3 ml RQID GLADIS Administration Alprazolam 0.25 mg 09/04/18 08:41 Xanax PO 09/11/18 08:42 Q12 PRN Anxiety Apixaban 5 mg 09/04/18 09:00 09/04/18 17:00 Eliquis PO Not Given BID [facility] Protocol Ferrous Gluconate 324 mg 09/04/18 09:00 09/04/18 17:00 Fergon PO Not Given TID [facility] Furosemide 20 mg 09/04/18 09:00 09/04/18 17:21 Lasix PO Not Given BID [facility] Hydromorphone HCl 2 mg 09/03/18 23:52 09/04/18 13:18 Dilaudid IVP 2 mg Q4 PRN Administration Pain, severe (8-10) Sodium Chloride 1,000 mls @ 100 mls/hr 09/03/18 23:45 09/04/18 10:30 Sodium Chloride 0.9% IV 100 mls/hr .Q10H GLADIS Administration Propofol 1,000 mg in 100 mls @ 1.442 mls/hr 09/04/18 11:30 09/04/18 13:50 Diprivan IV 09/05/18 11:17 10 mcg/kg/min .Q24H GLADIS 2.885 mls/hr Titration Protocol 5 MCG/KG/MIN Propofol 1,000 mg in 100 mls @ 1.442 mls/hr 09/04/18 12:30 09/04/18 12:40 Diprivan IV 09/05/18 12:18 Not Given .Q24H GLADIS Protocol 5 MCG/KG/MIN Metoprolol Tartrate 12.5 mg 09/03/18 23:45 09/04/18 10:33 Lopressor PO Not Given Q12 [facility] Multivitamins/Minerals 1 tab 09/04/18 09:00 09/04/18 10:32 Therapeutic-M Tab PO Not Given DAILY [facility] Sodium Bicarbonate 650 mg 09/04/18 09:00 09/04/18 17:21 Sodium Bicarbonate Tab PO Not Given BID [facility] Tamoxifen Citrate 20 mg 09/04/18 09:00 09/04/18 10:33 Nolvadex PO Not Given DAILY [facility] Tramadol HCl 50 mg 09/03/18 23:40 Ultram PO Q6 PRN Pain, moderate (4-7) - Patient Studies Lab Studies: Lab Studies 09/04/18 09/04/18 09/04/18 Range/Units 17:34 12:43 11:25 WBC 28.9 H (4.8-10.8) K/uL RBC 3.46 L (3.80-5.20) Mil/uL Hgb 9.6 L D (12.0-16.0) g/dL Hct 29.8 L (34.0-47.0) % MCV 86.3 D (81.0-99.0) fl MCH 27.6 (27.0-31.0) pg MCHC 32.0 L (33.0-37.0) g/dL RDW 21.8 H (11.5-14.5) % Plt Count 219 (130-400) K/uL MPV 8.6 (7.2-11.7) fl Neut % (Auto) 96.7 H (50.0-75.0) % Lymph % (Auto) 2.1 L (20.0-40.0) % [place] % (Auto) 1.2 (0.0-10.0) % Eos % (Auto) 0.0 (0.0-4.0) % Baso % (Auto) 0.0 (0.0-2.0) % Neut # (Auto) 27.9 H (1.8-7.0) K/uL Lymph # (Auto) 0.6 L (1.0-4.3) K/uL [place] # (Auto) 0.3 (0.0-0.8) K/uL Eos # (Auto) 0.0 (0.0-0.7) K/uL Baso # (Auto) 0.0 (0.0-0.2) K/uL Total Counted Cancelled Neutrophils % (Manual) Cancelled (42-75) % Band Neutrophils % Cancelled Lymphocytes % (Manual) Cancelled (20-50) % Reactive Lymphs % Cancelled Monocytes % (Manual) Cancelled (0-10) % Eosinophils % (Manual) Cancelled Basophils % (Manual) Cancelled Metamyelocytes % Cancelled Myelocytes % Cancelled Promyelocytes % Cancelled Blast Cells % Cancelled Plasma Cell % (Manual) Cancelled Nucleated RBC % Cancelled Hypersegmented Polys Cancelled Smudge Cells Cancelled Toxic Granulation Cancelled Dohle Bodies Cancelled Devorah Rods Cancelled Platelet Estimate Cancelled (NORMAL) Plt Clumps, EDTA Cancelled Large Platelets Cancelled Giant Platelets Cancelled RBC Morphology Cancelled Polychromasia Cancelled Hypochromasia (manual) Cancelled Poikilocytosis (manual Cancelled Basophilic Stippling Cancelled Anisocytosis (manual) Cancelled Microcytosis (manual) Cancelled Macrocytosis (manual) Cancelled Spherocytes Cancelled Sickle Cells Cancelled Target Cells Cancelled Tear Drop Cells Cancelled Ovalocytes Cancelled Stomatocytes Cancelled Helmet Cells Cancelled [place] Bodies Cancelled Naper Cells Cancelled Acanthocytes (Spur) Cancelled Rouleaux Cancelled Schistocytes Cancelled pCO2 (35-45) mm/Hg pO2 (80-100) mm/Hg HCO3 (21-28) mmol/L ABG pH (7.35-7.45) ABG Total CO2 (22-28) mmol/L ABG O2 Saturation (95-98) % ABG Base Excess (-2.0-3.0) mmol/L Frederic Test ABG Potassium (3.6-5.2) mmol/L A-a O2 Difference mm/Hg Sodium (132-148) mmol/L Chloride (98-107) mmol/L Glucose (65-105) mg/dL Lactate (0.7-2.1) mmol/L Vent Mode FiO2 % Crit Value Called To Crit Value Called By Crit Value Read Back Blood Gas Notified Time Potassium (3.6-5.0) MMOL/L Carbon Dioxide (22-30) mmol/L Anion Gap (10-20) BUN (7-17) mg/dl Creatinine (0.7-1.2) mg/dl Est GFR ( Amer) Est GFR (Non-Af Amer) POC Glucose (mg/dL) 109 173 H (65-110) mg/dL Random Glucose (65-105) mg/dL Lactic Acid (0.7-2.1) mmol/L Calcium (8.4-10.2) mg/dL Phosphorus (2.5-4.5) mg/dl Magnesium (1.6-2.3) MG/DL Total Bilirubin (0.2-1.3) mg/dl AST (14-36) U/L ALT (9-52) U/L Alkaline Phosphatase (38-126) U/L Troponin I (0.00-0.120) ng/mL NT-Pro-B Natriuret Pep (0-900) pg/ml Total Protein (6.3-8.2) G/DL Albumin (3.5-5.0) g/dL Globulin (2.2-3.9) gm/dL Albumin/Globulin Ratio (1.0-2.1) Arterial Blood Potassium (3.6-5.2) mmol/L Urine Color (YELLOW) Urine Clarity (Clear) Urine pH (5.0-8.0) Ur Specific [place] (1.003-1.030) Urine Protein (NEGATIVE) mg/dL Urine Glucose (UA) (NEGATIVE) mg/dL Urine Ketones (NEGATIVE) mg/dL Urine Blood (NEGATIVE) Urine Nitrate (NEGATIVE) Urine Bilirubin (NEGATIVE) Urine Urobilinogen (0.2-1.0) mg/dL Ur Leukocyte Esterase (Negative) Vikas/uL Urine RBC (Auto) (0-3) /hpf Urine Microscopic WBC (0-5) /hpf Ur Squamous Epith Cells (0-5) /hpf Uric Acid Crystals (<OCC) /hpf Urine Bacteria (<OCC) Blood Type Antibody Screen Crossmatch BBK History Checked 09/04/18 09/04/18 09/04/18 Range/Units 11:25 11:25 10:09 WBC (4.8-10.8) K/uL RBC (3.80-5.20) Mil/uL Hgb (12.0-16.0) g/dL Hct (34.0-47.0) % MCV (81.0-99.0) fl MCH (27.0-31.0) pg MCHC (33.0-37.0) g/dL RDW (11.5-14.5) % Plt Count (130-400) K/uL MPV (7.2-11.7) fl Neut % (Auto) (50.0-75.0) % Lymph % (Auto) (20.0-40.0) % [place] % (Auto) (0.0-10.0) % Eos % (Auto) (0.0-4.0) % Baso % (Auto) (0.0-2.0) % Neut # (Auto) (1.8-7.0) K/uL Lymph # (Auto) (1.0-4.3) K/uL [place] # (Auto) (0.0-0.8) K/uL Eos # (Auto) (0.0-0.7) K/uL Baso # (Auto) (0.0-0.2) K/uL Total Counted Neutrophils % (Manual) (42-75) % Band Neutrophils % Lymphocytes % (Manual) (20-50) % Reactive Lymphs % Monocytes % (Manual) (0-10) % Eosinophils % (Manual) Basophils % (Manual) Metamyelocytes % Myelocytes % Promyelocytes % Blast Cells % Plasma Cell % (Manual) Nucleated RBC % Hypersegmented Polys Smudge Cells Toxic Granulation Dohle Bodies Devorah Rods Platelet Estimate (NORMAL) Plt Clumps, EDTA Large Platelets Giant Platelets RBC Morphology Polychromasia Hypochromasia (manual) Poikilocytosis (manual Basophilic Stippling Anisocytosis (manual) Microcytosis (manual) Macrocytosis (manual) Spherocytes Sickle Cells Target Cells Tear Drop Cells Ovalocytes Stomatocytes Helmet Cells [place] Bodies [place] Cells Acanthocytes (Spur) Rouleaux Schistocytes pCO2 64 H (35-45) mm/Hg pO2 57 L (80-100) mm/Hg HCO3 24.1 (21-28) mmol/L ABG pH 7.25 L (7.35-7.45) ABG Total CO2 30.1 H (22-28) mmol/L ABG O2 Saturation 89.8 L (95-98) % ABG Base Excess -0.6 (-2.0-3.0) mmol/L Frederic Test Yes ABG Potassium 4.5 (3.6-5.2) mmol/L A-a O2 Difference 576.0 mm/Hg Sodium 132 129.0 L (132-148) mmol/L Chloride 88 L 95.0 L (98-107) mmol/L Glucose 257 H (65-105) mg/dL Lactate 4.6 H* (0.7-2.1) mmol/L Vent Mode Nrm FiO2 100.0 % Crit Value Called To Eri vickers md Crit Value Called By 5055 Crit Value Read Back Y Blood Gas Notified Time 1010 Potassium 4.7 (3.6-5.0) MMOL/L Carbon Dioxide 30 (22-30) mmol/L Anion Gap 19 (10-20) BUN 39 H (7-17) mg/dl Creatinine 1.2 (0.7-1.2) mg/dl Est GFR ( Amer) 55 Est GFR (Non-Af Amer) 46 POC Glucose (mg/dL) (65-110) mg/dL Random Glucose 224 H (65-105) mg/dL Lactic Acid 4.0 H* (0.7-2.1) mmol/L Calcium 7.7 L (8.4-10.2) mg/dL Phosphorus 7.3 H (2.5-4.5) mg/dl Magnesium 2.5 H (1.6-2.3) MG/DL Total Bilirubin 0.9 (0.2-1.3) mg/dl AST 39 H (14-36) U/L ALT 16 (9-52) U/L Alkaline Phosphatase 125 (38-126) U/L Troponin I 0.0450 (0.00-0.120) ng/mL NT-Pro-B Natriuret Pep 67573 H (0-900) pg/ml Total Protein 6.0 L (6.3-8.2) G/DL Albumin 2.7 L (3.5-5.0) g/dL Globulin 3.3 (2.2-3.9) gm/dL Albumin/Globulin Ratio 0.8 L (1.0-2.1) Arterial Blood Potassium 4.5 (3.6-5.2) mmol/L Urine Color (YELLOW) Urine Clarity (Clear) Urine pH (5.0-8.0) Ur Specific [place] (1.003-1.030) Urine Protein (NEGATIVE) mg/dL Urine Glucose (UA) (NEGATIVE) mg/dL Urine Ketones (NEGATIVE) mg/dL Urine Blood (NEGATIVE) Urine Nitrate (NEGATIVE) Urine Bilirubin (NEGATIVE) Urine Urobilinogen (0.2-1.0) mg/dL Ur Leukocyte Esterase (Negative) Vikas/uL Urine RBC (Auto) (0-3) /hpf Urine Microscopic WBC (0-5) /hpf Ur Squamous Epith Cells (0-5) /hpf Uric Acid Crystals (<OCC) /hpf Urine Bacteria (<OCC) Blood Type Antibody Screen Crossmatch BBK History Checked 09/04/18 09/03/18 09/03/18 Range/Units 09:55 21:13 20:13 WBC (4.8-10.8) K/uL RBC (3.80-5.20) Mil/uL Hgb (12.0-16.0) g/dL Hct (34.0-47.0) % MCV (81.0-99.0) fl MCH (27.0-31.0) pg MCHC (33.0-37.0) g/dL RDW (11.5-14.5) % Plt Count (130-400) K/uL MPV (7.2-11.7) fl Neut % (Auto) (50.0-75.0) % Lymph % (Auto) (20.0-40.0) % [place] % (Auto) (0.0-10.0) % Eos % (Auto) (0.0-4.0) % Baso % (Auto) (0.0-2.0) % Neut # (Auto) (1.8-7.0) K/uL Lymph # (Auto) (1.0-4.3) K/uL [place] # (Auto) (0.0-0.8) K/uL Eos # (Auto) (0.0-0.7) K/uL Baso # (Auto) (0.0-0.2) K/uL Total Counted Neutrophils % (Manual) (42-75) % Band Neutrophils % Lymphocytes % (Manual) (20-50) % Reactive Lymphs % Monocytes % (Manual) (0-10) % Eosinophils % (Manual) Basophils % (Manual) Metamyelocytes % Myelocytes % Promyelocytes % Blast Cells % Plasma Cell % (Manual) Nucleated RBC % Hypersegmented Polys Smudge Cells Toxic Granulation Dohle Bodies Devorah Rods Platelet Estimate (NORMAL) Plt Clumps, EDTA Large Platelets Giant Platelets RBC Morphology Polychromasia Hypochromasia (manual) Poikilocytosis (manual Basophilic Stippling Anisocytosis (manual) Microcytosis (manual) Macrocytosis (manual) Spherocytes Sickle Cells Target Cells Tear Drop Cells Ovalocytes Stomatocytes Helmet Cells [place] Bodies Naina Cells Acanthocytes (Spur) Rouleaux Schistocytes pCO2 (35-45) mm/Hg pO2 (80-100) mm/Hg HCO3 (21-28) mmol/L ABG pH (7.35-7.45) ABG Total CO2 (22-28) mmol/L ABG O2 Saturation (95-98) % ABG Base Excess (-2.0-3.0) mmol/L Frederic Test ABG Potassium (3.6-5.2) mmol/L A-a O2 Difference mm/Hg Sodium (132-148) mmol/L Chloride (98-107) mmol/L Glucose (65-105) mg/dL Lactate (0.7-2.1) mmol/L Vent Mode FiO2 % Crit Value Called To Crit Value Called By Crit Value Read Back Blood Gas Notified Time Potassium (3.6-5.0) MMOL/L Carbon Dioxide (22-30) mmol/L Anion Gap (10-20) BUN (7-17) mg/dl Creatinine (0.7-1.2) mg/dl Est GFR ( Amer) Est GFR (Non-Af Amer) POC Glucose (mg/dL) 265 H (65-110) mg/dL Random Glucose (65-105) mg/dL Lactic Acid (0.7-2.1) mmol/L Calcium (8.4-10.2) mg/dL Phosphorus (2.5-4.5) mg/dl Magnesium (1.6-2.3) MG/DL Total Bilirubin (0.2-1.3) mg/dl AST (14-36) U/L ALT (9-52) U/L Alkaline Phosphatase (38-126) U/L Troponin I (0.00-0.120) ng/mL NT-Pro-B Natriuret Pep (0-900) pg/ml Total Protein (6.3-8.2) G/DL Albumin (3.5-5.0) g/dL Globulin (2.2-3.9) gm/dL Albumin/Globulin Ratio (1.0-2.1) Arterial Blood Potassium (3.6-5.2) mmol/L Urine Color Yellow (YELLOW) Urine Clarity Cloudy (Clear) Urine pH 5.0 (5.0-8.0) Ur Specific [place] 1.018 (1.003-1.030) Urine Protein 30 (NEGATIVE) mg/dL Urine Glucose (UA) Neg (NEGATIVE) mg/dL Urine Ketones Negative (NEGATIVE) mg/dL Urine Blood Large (NEGATIVE) Urine Nitrate Negative (NEGATIVE) Urine Bilirubin Negative (NEGATIVE) Urine Urobilinogen 0.2-1.0 (0.2-1.0) mg/dL Ur Leukocyte Esterase Trace (Negative) Vikas/uL Urine RBC (Auto) 207 H (0-3) /hpf Urine Microscopic WBC 34 H (0-5) /hpf Ur Squamous Epith Cells 4 (0-5) /hpf Uric Acid Crystals Few H (<OCC) /hpf Urine Bacteria Rare (<OCC) Blood Type A POSITIVE Antibody Screen Negative Crossmatch See Detail BBK History Checked Patient has bt 09/03/18 Range/Units 19:08 WBC (4.8-10.8) K/uL RBC (3.80-5.20) Mil/uL Hgb (12.0-16.0) g/dL Hct (34.0-47.0) % MCV (81.0-99.0) fl MCH (27.0-31.0) pg MCHC (33.0-37.0) g/dL RDW (11.5-14.5) % Plt Count (130-400) K/uL MPV (7.2-11.7) fl Neut % (Auto) (50.0-75.0) % Lymph % (Auto) (20.0-40.0) % [place] % (Auto) (0.0-10.0) % Eos % (Auto) (0.0-4.0) % Baso % (Auto) (0.0-2.0) % Neut # (Auto) (1.8-7.0) K/uL Lymph # (Auto) (1.0-4.3) K/uL [place] # (Auto) (0.0-0.8) K/uL Eos # (Auto) (0.0-0.7) K/uL Baso # (Auto) (0.0-0.2) K/uL Total Counted Neutrophils % (Manual) 96 H (42-75) % Band Neutrophils % Lymphocytes % (Manual) 3 L (20-50) % Reactive Lymphs % Monocytes % (Manual) 1 (0-10) % Eosinophils % (Manual) Basophils % (Manual) Metamyelocytes % Myelocytes % Promyelocytes % Blast Cells % Plasma Cell % (Manual) Nucleated RBC % Hypersegmented Polys Smudge Cells Toxic Granulation Dohle Bodies Devorah Rods Platelet Estimate Normal (NORMAL) Plt Clumps, EDTA Large Platelets Present Giant Platelets RBC Morphology Polychromasia Hypochromasia (manual) Slight Poikilocytosis (manual Slight Basophilic Stippling Anisocytosis (manual) Slight Microcytosis (manual) Slight Macrocytosis (manual) Spherocytes Sickle Cells Target Cells Tear Drop Cells Ovalocytes Moderate Stomatocytes Helmet Cells [place] Bodies Naina Cells Acanthocytes (Spur) Rouleaux Schistocytes pCO2 (35-45) mm/Hg pO2 (80-100) mm/Hg HCO3 (21-28) mmol/L ABG pH (7.35-7.45) ABG Total CO2 (22-28) mmol/L ABG O2 Saturation (95-98) % ABG Base Excess (-2.0-3.0) mmol/L Frederic Test ABG Potassium (3.6-5.2) mmol/L A-a O2 Difference mm/Hg Sodium (132-148) mmol/L Chloride (98-107) mmol/L Glucose (65-105) mg/dL Lactate (0.7-2.1) mmol/L Vent Mode FiO2 % Crit Value Called To Crit Value Called By Crit Value Read Back Blood Gas Notified Time Potassium (3.6-5.0) MMOL/L Carbon Dioxide (22-30) mmol/L Anion Gap (10-20) BUN (7-17) mg/dl Creatinine (0.7-1.2) mg/dl Est GFR ( Amer) Est GFR (Non-Af Amer) POC Glucose (mg/dL) (65-110) mg/dL Random Glucose (65-105) mg/dL Lactic Acid (0.7-2.1) mmol/L Calcium (8.4-10.2) mg/dL Phosphorus (2.5-4.5) mg/dl Magnesium (1.6-2.3) MG/DL Total Bilirubin (0.2-1.3) mg/dl AST (14-36) U/L ALT (9-52) U/L Alkaline Phosphatase (38-126) U/L Troponin I (0.00-0.120) ng/mL NT-Pro-B Natriuret Pep (0-900) pg/ml Total Protein (6.3-8.2) G/DL Albumin (3.5-5.0) g/dL Globulin (2.2-3.9) gm/dL Albumin/Globulin Ratio (1.0-2.1) Arterial Blood Potassium (3.6-5.2) mmol/L Urine Color (YELLOW) Urine Clarity (Clear) Urine pH (5.0-8.0) Ur Specific [place] (1.003-1.030) Urine Protein (NEGATIVE) mg/dL Urine Glucose (UA) (NEGATIVE) mg/dL Urine Ketones (NEGATIVE) mg/dL Urine Blood (NEGATIVE) Urine Nitrate (NEGATIVE) Urine Bilirubin (NEGATIVE) Urine Urobilinogen (0.2-1.0) mg/dL Ur Leukocyte Esterase (Negative) Vikas/uL Urine RBC (Auto) (0-3) /hpf Urine Microscopic WBC (0-5) /hpf Ur Squamous Epith Cells (0-5) /hpf Uric Acid Crystals (<OCC) /hpf Urine Bacteria (<OCC) Blood Type Antibody Screen Crossmatch BBK History Checked Laboratory Results - last 24 hr 09/03/18 09/03/18 09/03/18 19:08 20:13 21:13 WBC RBC Hgb Hct MCV MCH MCHC RDW Plt Count MPV Neut % (Auto) Lymph % (Auto) [place] % (Auto) Eos % (Auto) Baso % (Auto) Neut # (Auto) Lymph # (Auto) [place] # (Auto) Eos # (Auto) Baso # (Auto) Total Counted Neutrophils % (Manual) 96 H Band Neutrophils % Lymphocytes % (Manual) 3 L Reactive Lymphs % Monocytes % (Manual) 1 Eosinophils % (Manual) Basophils % (Manual) Metamyelocytes % Myelocytes % Promyelocytes % Blast Cells % Plasma Cell % (Manual) Nucleated RBC % Hypersegmented Polys Smudge Cells Toxic Granulation Dohle Bodies Devorah Rods Platelet Estimate Normal Plt Clumps, EDTA Large Platelets Present Giant Platelets RBC Morphology Polychromasia Hypochromasia (manual) Slight Poikilocytosis (manual Slight Basophilic Stippling Anisocytosis (manual) Slight Microcytosis (manual) Slight Macrocytosis (manual) Spherocytes Sickle Cells Target Cells Tear Drop Cells Ovalocytes Moderate Stomatocytes Helmet Cells [place] Bodies [place] Cells Acanthocytes (Spur) Rouleaux Schistocytes pCO2 pO2 HCO3 ABG pH ABG Total CO2 ABG O2 Saturation ABG Base Excess Frederic Test ABG Potassium A-a O2 Difference Sodium Chloride Glucose Lactate Vent Mode FiO2 Crit Value Called To Crit Value Called By Crit Value Read Back Blood Gas Notified Time Potassium Carbon Dioxide Anion Gap BUN Creatinine Est GFR ( Amer) Est GFR (Non-Af Amer) POC Glucose (mg/dL) Random Glucose Lactic Acid Calcium Phosphorus Magnesium Total Bilirubin AST ALT Alkaline Phosphatase Troponin I NT-Pro-B Natriuret Pep Total Protein Albumin Globulin Albumin/Globulin Ratio Arterial Blood Potassium Urine Color Yellow Urine Clarity Cloudy Urine pH 5.0 Ur Specific [place] 1.018 Urine Protein 30 Urine Glucose (UA) Neg Urine Ketones Negative Urine Blood Large Urine Nitrate Negative Urine Bilirubin Negative Urine Urobilinogen 0.2-1.0 Ur Leukocyte Esterase Trace Urine RBC (Auto) 207 H Urine Microscopic WBC 34 H Ur Squamous Epith Cells 4 Uric Acid Crystals Few H Urine Bacteria Rare Blood Type A POSITIVE Antibody Screen Negative Crossmatch See Detail BBK History Checked Patient has bt 09/04/18 09/04/18 09/04/18 09:55 10:09 11:25 WBC RBC Hgb Hct MCV MCH MCHC RDW Plt Count MPV Neut % (Auto) Lymph % (Auto) [place] % (Auto) Eos % (Auto) Baso % (Auto) Neut # (Auto) Lymph # (Auto) [place] # (Auto) Eos # (Auto) Baso # (Auto) Total Counted Neutrophils % (Manual) Band Neutrophils % Lymphocytes % (Manual) Reactive Lymphs % Monocytes % (Manual) Eosinophils % (Manual) Basophils % (Manual) Metamyelocytes % Myelocytes % Promyelocytes % Blast Cells % Plasma Cell % (Manual) Nucleated RBC % Hypersegmented Polys Smudge Cells Toxic Granulation Dohle Bodies Devorah Rods Platelet Estimate Plt Clumps, EDTA Large Platelets Giant Platelets RBC Morphology Polychromasia Hypochromasia (manual) Poikilocytosis (manual Basophilic Stippling Anisocytosis (manual) Microcytosis (manual) Macrocytosis (manual) Spherocytes Sickle Cells Target Cells Tear Drop Cells Ovalocytes Stomatocytes Helmet Cells [place] Bodies Naina Cells Acanthocytes (Spur) Rouleaux Schistocytes pCO2 64 H pO2 57 L HCO3 24.1 ABG pH 7.25 L ABG Total CO2 30.1 H ABG O2 Saturation 89.8 L ABG Base Excess -0.6 Frederic Test Yes ABG Potassium 4.5 A-a O2 Difference 576.0 Sodium 129.0 L 132 Chloride 95.0 L 88 L Glucose 257 H Lactate 4.6 H* Vent Mode Nrm FiO2 100.0 Crit Value Called To Eri vickers md Crit Value Called By [id number] Crit Value Read Back Y Blood Gas Notified Time 1010 Potassium 4.7 Carbon Dioxide 30 Anion Gap 19 BUN 39 H Creatinine 1.2 Est GFR ( Amer) 55 Est GFR (Non-Af Amer) 46 POC Glucose (mg/dL) 265 H Random Glucose 224 H Lactic Acid Calcium 7.7 L Phosphorus 7.3 H Magnesium 2.5 H Total Bilirubin 0.9 AST 39 H ALT 16 Alkaline Phosphatase 125 Troponin I 0.0450 NT-Pro-B Natriuret Pep 84141 H Total Protein 6.0 L Albumin 2.7 L Globulin 3.3 Albumin/Globulin Ratio 0.8 L Arterial Blood Potassium 4.5 Urine Color Urine Clarity Urine pH Ur Specific [place] Urine Protein Urine Glucose (UA) Urine Ketones Urine Blood Urine Nitrate Urine Bilirubin Urine Urobilinogen Ur Leukocyte Esterase Urine RBC (Auto) Urine Microscopic WBC Ur Squamous Epith Cells Uric Acid Crystals Urine Bacteria Blood Type Antibody Screen Crossmatch BBK History Checked 09/04/18 09/04/18 09/04/18 11:25 11:25 12:43 WBC 28.9 H RBC 3.46 L Hgb 9.6 L D Hct 29.8 L MCV 86.3 D MCH 27.6 MCHC 32.0 L RDW 21.8 H Plt Count 219 MPV 8.6 Neut % (Auto) 96.7 H Lymph % (Auto) 2.1 L [place] % (Auto) 1.2 Eos % (Auto) 0.0 Baso % (Auto) 0.0 Neut # (Auto) 27.9 H Lymph # (Auto) 0.6 L [place] # (Auto) 0.3 Eos # (Auto) 0.0 Baso # (Auto) 0.0 Total Counted Cancelled Neutrophils % (Manual) Cancelled Band Neutrophils % Cancelled Lymphocytes % (Manual) Cancelled Reactive Lymphs % Cancelled Monocytes % (Manual) Cancelled Eosinophils % (Manual) Cancelled Basophils % (Manual) Cancelled Metamyelocytes % Cancelled Myelocytes % Cancelled Promyelocytes % Cancelled Blast Cells % Cancelled Plasma Cell % (Manual) Cancelled Nucleated RBC % Cancelled Hypersegmented Polys Cancelled Smudge Cells Cancelled Toxic Granulation Cancelled Dohle Bodies Cancelled [place]or[place] Rods Cancelled Platelet Estimate Cancelled Plt Clumps, EDTA Cancelled Large Platelets Cancelled Giant Platelets Cancelled RBC Morphology Cancelled Polychromasia Cancelled Hypochromasia (manual) Cancelled Poikilocytosis (manual Cancelled Basophilic Stippling Cancelled Anisocytosis (manual) Cancelled Microcytosis (manual) Cancelled Macrocytosis (manual) Cancelled Spherocytes Cancelled Sickle Cells Cancelled Target Cells Cancelled Tear Drop Cells Cancelled Ovalocytes Cancelled Stomatocytes Cancelled Helmet Cells Cancelled [place] Bodies Cancelled Naina Cells Cancelled Acanthocytes (Spur) Cancelled Rouleaux Cancelled Schistocytes Cancelled pCO2 pO2 HCO3 ABG pH ABG Total CO2 ABG O2 Saturation ABG Base Excess Frederic Test ABG Potassium A-a O2 Difference Sodium Chloride Glucose Lactate Vent Mode FiO2 Crit Value Called To Crit Value Called By Crit Value Read Back Blood Gas Notified Time Potassium Carbon Dioxide Anion Gap BUN Creatinine Est GFR ( Amer) Est GFR (Non-Af Amer) POC Glucose (mg/dL) 173 H Random Glucose Lactic Acid 4.0 H* Calcium Phosphorus Magnesium Total Bilirubin AST ALT Alkaline Phosphatase Troponin I NT-Pro-B Natriuret Pep Total Protein Albumin Globulin Albumin/Globulin Ratio Arterial Blood Potassium Urine Color Urine Clarity Urine pH Ur Specific [place] Urine Protein Urine Glucose (UA) Urine Ketones Urine Blood Urine Nitrate Urine Bilirubin Urine Urobilinogen Ur Leukocyte Esterase Urine RBC (Auto) Urine Microscopic WBC Ur Squamous Epith Cells Uric Acid Crystals Urine Bacteria Blood Type Antibody Screen Crossmatch BBK History Checked 09/04/18 17:34 WBC RBC Hgb Hct MCV MCH MCHC RDW Plt Count MPV Neut % (Auto) Lymph % (Auto) [place] % (Auto) Eos % (Auto) Baso % (Auto) Neut # (Auto) Lymph # (Auto) [place] # (Auto) Eos # (Auto) Baso # (Auto) Total Counted Neutrophils % (Manual) Band Neutrophils % Lymphocytes % (Manual) Reactive Lymphs % Monocytes % (Manual) Eosinophils % (Manual) Basophils % (Manual) Metamyelocytes % Myelocytes % Promyelocytes % Blast Cells % Plasma Cell % (Manual) Nucleated RBC % Hypersegmented Polys Smudge Cells Toxic Granulation Dohle Bodies Devorah Rods Platelet Estimate Plt Clumps, EDTA Large Platelets Giant Platelets RBC Morphology Polychromasia Hypochromasia (manual) Poikilocytosis (manual Basophilic Stippling Anisocytosis (manual) Microcytosis (manual) Macrocytosis (manual) Spherocytes Sickle Cells Target Cells Tear Drop Cells Ovalocytes Stomatocytes Helmet Cells [place] Bodies Naina Cells Acanthocytes (Spur) Rouleaux Schistocytes pCO2 pO2 HCO3 ABG pH ABG Total CO2 ABG O2 Saturation ABG Base Excess Frederic Test ABG Potassium A-a O2 Difference Sodium Chloride Glucose Lactate Vent Mode FiO2 Crit Value Called To Crit Value Called By Crit Value Read Back Blood Gas Notified Time Potassium Carbon Dioxide Anion Gap BUN Creatinine Est GFR ( Amer) Est GFR (Non-Af Amer) POC Glucose (mg/dL) 109 Random Glucose Lactic Acid Calcium Phosphorus Magnesium Total Bilirubin AST ALT Alkaline Phosphatase Troponin I NT-Pro-B Natriuret Pep Total Protein Albumin Globulin Albumin/Globulin Ratio Arterial Blood Potassium Urine Color Urine Clarity Urine pH Ur Specific [place] Urine Protein Urine Glucose (UA) Urine Ketones Urine Blood Urine Nitrate Urine Bilirubin Urine Urobilinogen Ur Leukocyte Esterase Urine RBC (Auto) Urine Microscopic WBC Ur Squamous Epith Cells Uric Acid Crystals Urine Bacteria Blood Type Antibody Screen Crossmatch BBK History Checked Radiology Impressions: Radiology Impressions Chest X-Ray 09/03/18 18:47 IMPRESSION: Moderate congestive heart failure. Chest X-Ray 09/04/18 10:09 IMPRESSION: Adequate intubation as discussed above. Right perihilar/upper lobe infiltrate identified in the interval. Underlying pulmonary vascular congestion apparent. Continued clinical and radiographic monitoring advised. Review of Systems - Review of Systems Systems not reviewed;Unavailable: Intubated Critical Care Progress Note - Ventilator Checklist Head of Bed 30 Degrees: Yes Daily Sedation Vacation: Yes Daily Assessment of Readiness to Wean: Yes Daily Spontaneous Breathing Trial: Yes PUD Prophalyxis: Yes DVT Prophylaxis: Yes Oral Care with Chlorhexidine Gluconate {CHG}: Yes - Extremities/Vascular Does the Patient have a Central Venous Catheter?: No Does the Patient need a Central Venous Catheter?: No - Nutrition Nutrition: Nutrition Category Date Time Status 2gm Na [Heart Healthy Diet] [DIET] Diets 09/04/18 Breakfast Active Assessment/Plan (1) Congestive heart failure (CHF) Current Visit: Yes Status: Acute Priority: High Comment: Intubated for hypoxemic respiratory failure Diuresis, strict I&O, Maintian negative fluid balance (2) Anemia Current Visit: Yes Status: Acute Priority: High Comment: Anemia is likely multifactorial from chronic disease and malignancy No signs of active bleeding at that time Transfuse as needed Hematology oncology consult appreciated (3) DVT of lower extremity, bilateral Current Visit: Yes Status: Acute Priority: High Comment: Patient with H/O provoked DVT and Pulmonary embolism Continue Apixaban (Eliquis) if okay for ohematology (4) Breast CA Current Visit: Yes Status: Acute Priority: High (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
--- NOTE | 2018-09-04 20:59 | CP.PCM.CON ---
History of Present Illness - History of Present Illness History of Present Illness: 58 year old female with a history of stage IV mullerian tract cancer recently initiated chemotherapy on 09/01/18 (carboplatin + paclitaxel), DVT/PE on anticoagulation, presenting with shortness of breath and chest pain, anemia s/p PRBC transfusion, currently intubated. The patient appears to have had worsening respiratory distress post PRBC transfusion. 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 She received her first dose of chemotherapy this past Tuesday and tolerated her infusion well. Past medical, surgical, family, social history cannot be obtained from the patient. Allergies: Acetaminophen per documentation Review of systems cannot be obtained. Past Patient History - Infectious Disease Hx of Infectious Diseases: None - Past Medical History & Family History Past Medical History?: Yes - Past Social History Alcohol: None Drugs: Denies - CARDIAC Hx Congestive Heart Failure: Yes Hx Peripheral Edema: Yes - PULMONARY Hx Asthma: No Hx Pulmonary Embolism: Yes - NEUROLOGICAL Hx Neurological Disorder: No - HEENT Hx HEENT Problems: No - RENAL Hx Chronic Kidney Disease: No - ENDOCRINE/METABOLIC Hx Endocrine Disorders: No - HEMATOLOGICAL/ONCOLOGICAL Hx Anemia: Yes Hx Human Immunodeficiency Virus (HIV): No - INTEGUMENTARY Hx Dermatological Problems: No - MUSCULOSKELETAL/RHEUMATOLOGICAL Hx Arthritis: No - GASTROINTESTINAL Hx Gastrointestinal Disorders: No - GENITOURINARY/GYNECOLOGICAL Hx Genitourinary Disorders: No - PSYCHIATRIC Hx Anxiety: Yes - SURGICAL HISTORY Hx Surgeries: Yes Hx Section: Yes Other/Comment: right breast bx - ANESTHESIA Hx Anesthesia: Yes Hx Anesthesia Reactions: No Hx Malignant Hyperthermia: No Meds Allergies/Adverse Reactions: Allergies Allergy/AdvReac Type Severity Reaction Status Date / Time acetaminophen [From Tylenol] AdvReac Unknown SHORTNESS Verified 08/29/18 08:11 OF BREATH - Medications Medications: Current Medications Albuterol/Ipratropium (Duoneb 3 Mg/0.5 Mg (3 Ml) Ud) 3 ml INH RQID [facility] Last Admin: 09/04/18 20:45 Dose: 3 ml Alprazolam (Xanax) 0.25 mg PO Q12 PRN PRN Reason: Anxiety Stop: 09/11/18 08:42 Apixaban (Eliquis) 5 mg PO BID GLADIS; Protocol Last Admin: 09/04/18 17:00 Dose: Not Given Ferrous Gluconate (Fergon) 324 mg PO TID [facility] Last Admin: 09/04/18 17:00 Dose: Not Given Furosemide (Lasix) 20 mg PO BID [facility] Last Admin: 09/04/18 17:21 Dose: Not Given Hydromorphone HCl (Dilaudid) 2 mg IVP Q4 PRN PRN Reason: Pain, severe (8-10) Last Admin: 09/04/18 13:18 Dose: 2 mg Sodium Chloride (Sodium Chloride 0.9%) 1,000 mls @ 100 mls/hr IV .Q10H [facility] Last Admin: 09/04/18 10:30 Dose: 100 mls/hr Propofol (Diprivan) 1,000 mg in 100 mls @ 1.442 mls/hr IV .Q24H [facility]; Protocol Stop: 09/05/18 11:17 Last Titration: 09/04/18 13:50 Dose: 10 mcg/kg/min, 2.885 mls/hr Propofol (Diprivan) 1,000 mg in 100 mls @ 1.442 mls/hr IV .Q24H [facility]; Protocol Stop: 09/05/18 12:18 Last Admin: 09/04/18 12:40 Dose: Not Given Norepinephrine Bitartrate 4 mg (/ Dextrose) 254 mls @ 9.53 mls/hr IV .Q24H [facility]; Protocol Metoprolol Tartrate (Lopressor) 12.5 mg PO Q12 [facility] Last Admin: 09/04/18 10:33 Dose: Not Given Multivitamins/Minerals (Therapeutic-M Tab) 1 tab PO DAILY [facility] Last Admin: 09/04/18 10:32 Dose: Not Given Sodium Bicarbonate (Sodium Bicarbonate Tab) 650 mg PO BID [facility] Last Admin: 09/04/18 17:21 Dose: Not Given Tamoxifen Citrate (Nolvadex) 20 mg PO DAILY [facility] Last Admin: 09/04/18 10:33 Dose: Not Given Tramadol HCl (Ultram) 50 mg PO Q6 PRN PRN Reason: Pain, moderate (4-7) Physical Exam - Constitutional Appears: Cachectic - Head Exam Head Exam: ATRAUMATIC - Eye Exam Eye Exam: Normal appearance - ENT Exam ENT Exam: Mucous Membranes Dry - Respiratory Exam Respiratory Exam: Decreased Breath Sounds - Cardiovascular Exam Cardiovascular Exam: +S1, +S2 - GI/Abdominal Exam GI & Abdominal Exam: Normal Bowel Sounds - Extremities Exam Extremities exam: Positive for: pedal edema - Psychiatric Exam Psychiatric exam: Flat Affect - Skin Skin Exam: Warm Results - Vital Signs Recent Vital Signs: Last Vital Signs Temp 98 F 09/04/18 20:00 Pulse 105 H 09/04/18 20:00 Resp 20 09/04/18 20:00 BP 79/40 L 09/04/18 20:00 Pulse Ox 100 09/04/18 20:00 - Labs Result Diagrams: 09/04/18 11:25 09/04/18 11:25 Labs: Laboratory Results - last 24 hr 09/03/18 09/03/18 09/03/18 19:08 20:13 21:13 WBC RBC Hgb Hct MCV MCH MCHC RDW Plt Count MPV Neut % (Auto) Lymph % (Auto) [place] % (Auto) Eos % (Auto) Baso % (Auto) Neut # (Auto) Lymph # (Auto) [place] # (Auto) Eos # (Auto) Baso # (Auto) Total Counted Neutrophils % (Manual) 96 H Band Neutrophils % Lymphocytes % (Manual) 3 L Reactive Lymphs % Monocytes % (Manual) 1 Eosinophils % (Manual) Basophils % (Manual) Metamyelocytes % Myelocytes % Promyelocytes % Blast Cells % Plasma Cell % (Manual) Nucleated RBC % Hypersegmented Polys Smudge Cells Toxic Granulation Dohle Bodies Devorah Rods Platelet Estimate Normal Plt Clumps, EDTA Large Platelets Present Giant Platelets RBC Morphology Polychromasia Hypochromasia (manual) Slight Poikilocytosis (manual Slight Basophilic Stippling Anisocytosis (manual) Slight Microcytosis (manual) Slight Macrocytosis (manual) Spherocytes Sickle Cells Target Cells Tear Drop Cells Ovalocytes Moderate Stomatocytes Helmet Cells [place] Bodies Naina Cells Acanthocytes (Spur) Rouleaux Schistocytes pCO2 pO2 HCO3 ABG pH ABG Total CO2 ABG O2 Saturation ABG Base Excess Frederic Test ABG Potassium A-a O2 Difference Sodium Chloride Glucose Lactate Vent Mode FiO2 Crit Value Called To Crit Value Called By Crit Value Read Back Blood Gas Notified Time Potassium Carbon Dioxide Anion Gap BUN Creatinine Est GFR ( Amer) Est GFR (Non-Af Amer) POC Glucose (mg/dL) Random Glucose Lactic Acid Calcium Phosphorus Magnesium Total Bilirubin AST ALT Alkaline Phosphatase Troponin I NT-Pro-B Natriuret Pep Total Protein Albumin Globulin Albumin/Globulin Ratio Arterial Blood Potassium Urine Color Yellow Urine Clarity Cloudy Urine pH 5.0 Ur Specific [place] 1.018 Urine Protein 30 Urine Glucose (UA) Neg Urine Ketones Negative Urine Blood Large Urine Nitrate Negative Urine Bilirubin Negative Urine Urobilinogen 0.2-1.0 Ur Leukocyte Esterase Trace Urine RBC (Auto) 207 H Urine Microscopic WBC 34 H Ur Squamous Epith Cells 4 Uric Acid Crystals Few H Urine Bacteria Rare Blood Type A POSITIVE Antibody Screen Negative Crossmatch See Detail BBK History Checked Patient has bt 09/04/18 09/04/18 09/04/18 09:55 10:09 11:25 WBC RBC Hgb Hct MCV MCH MCHC RDW Plt Count MPV Neut % (Auto) Lymph % (Auto) [place] % (Auto) Eos % (Auto) Baso % (Auto) Neut # (Auto) Lymph # (Auto) [place] # (Auto) Eos # (Auto) Baso # (Auto) Total Counted Neutrophils % (Manual) Band Neutrophils % Lymphocytes % (Manual) Reactive Lymphs % Monocytes % (Manual) Eosinophils % (Manual) Basophils % (Manual) Metamyelocytes % Myelocytes % Promyelocytes % Blast Cells % Plasma Cell % (Manual) Nucleated RBC % Hypersegmented Polys Smudge Cells Toxic Granulation Dohle Bodies Devorah Rods Platelet Estimate Plt Clumps, EDTA Large Platelets Giant Platelets RBC Morphology Polychromasia Hypochromasia (manual) Poikilocytosis (manual Basophilic Stippling Anisocytosis (manual) Microcytosis (manual) Macrocytosis (manual) Spherocytes Sickle Cells Target Cells Tear Drop Cells Ovalocytes Stomatocytes Helmet Cells [place] Bodies [place] Cells Acanthocytes (Spur) Rouleaux Schistocytes pCO2 64 H pO2 57 L HCO3 24.1 ABG pH 7.25 L ABG Total CO2 30.1 H ABG O2 Saturation 89.8 L ABG Base Excess -0.6 Frederic Test Yes ABG Potassium 4.5 A-a O2 Difference 576.0 Sodium 129.0 L 132 Chloride 95.0 L 88 L Glucose 257 H Lactate 4.6 H* Vent Mode Nrm FiO2 100.0 Crit Value Called To Eri vickers md Crit Value Called By 6096 Crit Value Read Back Y Blood Gas Notified Time 1010 Potassium 4.7 Carbon Dioxide 30 Anion Gap 19 BUN 39 H Creatinine 1.2 Est GFR ( Amer) 55 Est GFR (Non-Af Amer) 46 POC Glucose (mg/dL) 265 H Random Glucose 224 H Lactic Acid Calcium 7.7 L Phosphorus 7.3 H Magnesium 2.5 H Total Bilirubin 0.9 AST 39 H ALT 16 Alkaline Phosphatase 125 Troponin I 0.0450 NT-Pro-B Natriuret Pep 32315 H Total Protein 6.0 L Albumin 2.7 L Globulin 3.3 Albumin/Globulin Ratio 0.8 L Arterial Blood Potassium 4.5 Urine Color Urine Clarity Urine pH Ur Specific [place] Urine Protein Urine Glucose (UA) Urine Ketones Urine Blood Urine Nitrate Urine Bilirubin Urine Urobilinogen Ur Leukocyte Esterase Urine RBC (Auto) Urine Microscopic WBC Ur Squamous Epith Cells Uric Acid Crystals Urine Bacteria Blood Type Antibody Screen Crossmatch BBK History Checked 09/04/18 09/04/18 09/04/18 11:25 11:25 12:43 WBC 28.9 H RBC 3.46 L Hgb 9.6 L D Hct 29.8 L MCV 86.3 D MCH 27.6 MCHC 32.0 L RDW 21.8 H Plt Count 219 MPV 8.6 Neut % (Auto) 96.7 H Lymph % (Auto) 2.1 L [place] % (Auto) 1.2 Eos % (Auto) 0.0 Baso % (Auto) 0.0 Neut # (Auto) 27.9 H Lymph # (Auto) 0.6 L [place] # (Auto) 0.3 Eos # (Auto) 0.0 Baso # (Auto) 0.0 Total Counted Cancelled Neutrophils % (Manual) Cancelled Band Neutrophils % Cancelled Lymphocytes % (Manual) Cancelled Reactive Lymphs % Cancelled Monocytes % (Manual) Cancelled Eosinophils % (Manual) Cancelled Basophils % (Manual) Cancelled Metamyelocytes % Cancelled Myelocytes % Cancelled Promyelocytes % Cancelled Blast Cells % Cancelled Plasma Cell % (Manual) Cancelled Nucleated RBC % Cancelled Hypersegmented Polys Cancelled Smudge Cells Cancelled Toxic Granulation Cancelled Dohle Bodies Cancelled Devorah Rods Cancelled Platelet Estimate Cancelled Plt Clumps, EDTA Cancelled Large Platelets Cancelled Giant Platelets Cancelled RBC Morphology Cancelled Polychromasia Cancelled Hypochromasia (manual) Cancelled Poikilocytosis (manual Cancelled Basophilic Stippling Cancelled Anisocytosis (manual) Cancelled Microcytosis (manual) Cancelled Macrocytosis (manual) Cancelled Spherocytes Cancelled Sickle Cells Cancelled Target Cells Cancelled Tear Drop Cells Cancelled Ovalocytes Cancelled Stomatocytes Cancelled Helmet Cells Cancelled [place] Bodies Cancelled [place] Cells Cancelled Acanthocytes (Spur) Cancelled Rouleaux Cancelled Schistocytes Cancelled pCO2 pO2 HCO3 ABG pH ABG Total CO2 ABG O2 Saturation ABG Base Excess Frederic Test ABG Potassium A-a O2 Difference Sodium Chloride Glucose Lactate Vent Mode FiO2 Crit Value Called To Crit Value Called By Crit Value Read Back Blood Gas Notified Time Potassium Carbon Dioxide Anion Gap BUN Creatinine Est GFR ( Amer) Est GFR (Non-Af Amer) POC Glucose (mg/dL) 173 H Random Glucose Lactic Acid 4.0 H* Calcium Phosphorus Magnesium Total Bilirubin AST ALT Alkaline Phosphatase Troponin I NT-Pro-B Natriuret Pep Total Protein Albumin Globulin Albumin/Globulin Ratio Arterial Blood Potassium Urine Color Urine Clarity Urine pH Ur Specific [place] Urine Protein Urine Glucose (UA) Urine Ketones Urine Blood Urine Nitrate Urine Bilirubin Urine Urobilinogen Ur Leukocyte Esterase Urine RBC (Auto) Urine Microscopic WBC Ur Squamous Epith Cells Uric Acid Crystals Urine Bacteria Blood Type Antibody Screen Crossmatch BBK History Checked 09/04/18 17:34 WBC RBC Hgb Hct MCV MCH MCHC RDW Plt Count MPV Neut % (Auto) Lymph % (Auto) [place] % (Auto) Eos % (Auto) Baso % (Auto) Neut # (Auto) Lymph # (Auto) [place] # (Auto) Eos # (Auto) Baso # (Auto) Total Counted Neutrophils % (Manual) Band Neutrophils % Lymphocytes % (Manual) Reactive Lymphs % Monocytes % (Manual) Eosinophils % (Manual) Basophils % (Manual) Metamyelocytes % Myelocytes % Promyelocytes % Blast Cells % Plasma Cell % (Manual) Nucleated RBC % Hypersegmented Polys Smudge Cells Toxic Granulation Dohle Bodies Devorah Rods Platelet Estimate Plt Clumps, EDTA Large Platelets Giant Platelets RBC Morphology Polychromasia Hypochromasia (manual) Poikilocytosis (manual Basophilic Stippling Anisocytosis (manual) Microcytosis (manual) Macrocytosis (manual) Spherocytes Sickle Cells Target Cells Tear Drop Cells Ovalocytes Stomatocytes Helmet Cells [place] Bodies [place] Cells Acanthocytes (Spur) Rouleaux Schistocytes pCO2 pO2 HCO3 ABG pH ABG Total CO2 ABG O2 Saturation ABG Base Excess Frederic Test ABG Potassium A-a O2 Difference Sodium Chloride Glucose Lactate Vent Mode FiO2 Crit Value Called To Crit Value Called By Crit Value Read Back Blood Gas Notified Time Potassium Carbon Dioxide Anion Gap BUN Creatinine Est GFR ( Amer) Est GFR (Non-Af Amer) POC Glucose (mg/dL) 109 Random Glucose Lactic Acid Calcium Phosphorus Magnesium Total Bilirubin AST ALT Alkaline Phosphatase Troponin I NT-Pro-B Natriuret Pep Total Protein Albumin Globulin Albumin/Globulin Ratio Arterial Blood Potassium Urine Color Urine Clarity Urine pH Ur Specific [place] Urine Protein Urine Glucose (UA) Urine Ketones Urine Blood Urine Nitrate Urine Bilirubin Urine Urobilinogen Ur Leukocyte Esterase Urine RBC (Auto) Urine Microscopic WBC Ur Squamous Epith Cells Uric Acid Crystals Urine Bacteria Blood Type Antibody Screen Crossmatch BBK History Checked Assessment & Plan (1) Anemia Assessment and Plan: anemia of chronic disease and anemia of chemotherapy retic count, b12, folate, ferritin, to further characterize transfusion support PRN Status: Acute Priority: High (2) Leukocytosis Assessment and Plan: felt to be reactive from cancer in the past Status: Acute Priority: High (3) Pulmonary embolism Assessment and Plan: with DVT provoked from malignancy was on Eliquis; currently on hold Status: Acute (4) Malignant mixed Mullerian tumor (MMMT) Assessment and Plan: malignant pleural effusion, 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 Thank you for this interesting consult. Status: Acute
[2018-09-04 22:25] LABS: ABG ALLEN TEST YES; ARTERIAL BLOOD GAS HCO3 28.4 mmol/L (21-28); ARTERIAL BLOOD GAS O2 SAT 99.9 % (95-98); ARTERIAL BLOOD GAS PCO2 59 mm/Hg (35-45); ARTERIAL BLOOD GAS PH 7.33 (7.35-7.45); ARTERIAL BLOOD GAS PO2 261 mm/Hg (80-100); ARTERIAL BLOOD GAS TCO2 32.9 mmol/L (22-28)
--- NOTE | 2018-09-05 00:33 | CP.PCM.HP ---
History of Present Illness - History of Present Illness History of Present Illness: CC: Chest pain and Shortness of Breath History of Present Illnes: A 58 year old female with widespread metastatic Breast Cancer with malignant severe ascites due to peripheral peritoneal carcinomatosis and also bony metastasis who received chemotherapy 2 days back besides the regular tamoxifen therapy, and severe Cardiomyopathy presents to the ED for an evaluation of intermittent chest pain and shortness of breath that started 2x days ago. In ED, patient states that her shortness of breath is better, and has not experienced chest pain since last night. Patient also reports having a cough and bilateral leg swelling ongoing for 4x months. In the ER the patient was found to be severely anemic and received 1 unit of packed RBC overnight. This morning the shortness of breath has gotten worse, and despite respiratory treatment and Diuresis, patient developed acute respiratory failure and rapid response called and intubated and transferred to ICU. CODE STATUS discussed during the prior admission, and patient wanted everything to be done. Next of kin stated that they would respect her wishes. Present on Admission - Present on Admission Any Indicators Present on Admission: No Review of Systems - Review of Systems All systems: reviewed and no additional remarkable complaints except Review of Systems: as per HPI Past Patient History - Infectious Disease Hx of Infectious Diseases: None - Past Medical History & Family History Past Medical History?: Yes Past Family History: Reviewed and not pertinent - Past Social History Smoking Status: Former Smoker Alcohol: None Drugs: Denies - CARDIAC Hx Congestive Heart Failure: Yes Hx Peripheral Edema: Yes - PULMONARY Hx Asthma: No Hx Pulmonary Embolism: Yes - NEUROLOGICAL Hx Neurological Disorder: No - HEENT Hx HEENT Problems: No - RENAL Hx Chronic Kidney Disease: No - ENDOCRINE/METABOLIC Hx Endocrine Disorders: No - HEMATOLOGICAL/ONCOLOGICAL Hx Anemia: Yes Hx Human Immunodeficiency Virus (HIV): No - INTEGUMENTARY Hx Dermatological Problems: No - MUSCULOSKELETAL/RHEUMATOLOGICAL Hx Arthritis: No - GASTROINTESTINAL Hx Gastrointestinal Disorders: No - GENITOURINARY/GYNECOLOGICAL Hx Genitourinary Disorders: No - PSYCHIATRIC Hx Anxiety: Yes - SURGICAL HISTORY Hx Surgeries: Yes Hx Section: Yes Other/Comment: right breast bx - ANESTHESIA Hx Anesthesia: Yes Hx Anesthesia Reactions: No Hx Malignant Hyperthermia: No Meds Allergies/Adverse Reactions: Allergies Allergy/AdvReac Type Severity Reaction Status Date / Time acetaminophen [From Tylenol] AdvReac Unknown SHORTNESS Verified 08/29/18 08:11 OF BREATH Physical Exam - Constitutional Appears: In Acute Distress, Cachectic, Chronically Ill - Head Exam Head Exam: ATRAUMATIC, NORMAL INSPECTION, NORMOCEPHALIC - Eye Exam Eye Exam: EOMI, Normal appearance, PERRL Pupil Exam: NORMAL ACCOMODATION, PERRL - ENT Exam ENT Exam: Mucous Membranes Moist, Normal Exam Additional comments: Intubated - Neck Exam Neck exam: Positive for: Full Rom, Normal Inspection - Respiratory Exam Respiratory Exam: Accessory Muscle Use, Decreased Breath Sounds, Rales - Cardiovascular Exam Cardiovascular Exam: REGULAR RHYTHM, +S1, +S2 Additional comments: Left Chest Portacath - GI/Abdominal Exam GI & Abdominal Exam: Distended, Normal Bowel Sounds. absent: Rigid - Extremities Exam Additional comments: +++Pitting Edema. - Back Exam Back exam: NORMAL INSPECTION - Neurological Exam Neurological exam: Alert, CN II-XII Intact, Normal Gait, Oriented x3, Reflexes Normal - Psychiatric Exam Psychiatric exam: Normal Affect, Normal Mood - Skin Skin Exam: Dry, Intact, Normal Color, Warm Results - Vital Signs Recent Vital Signs: Last Vital Signs Temp 98 F 09/04/18 20:00 Pulse 104 H 09/04/18 23:00 Resp 14 09/04/18 23:00 BP 100/57 L 09/04/18 23:00 Pulse Ox 100 09/04/18 23:00 - Labs Result Diagrams: 09/08/18 04:25 09/08/18 04:25 Labs: Laboratory Results - last 24 hr 09/03/18 09/04/18 09/04/18 20:13 09:55 10:09 WBC RBC Hgb Hct MCV MCH MCHC RDW Plt Count MPV Neut % (Auto) Lymph % (Auto) Arthur % (Auto) Eos % (Auto) Baso % (Auto) Neut # (Auto) Lymph # (Auto) Arthur # (Auto) Eos # (Auto) Baso # (Auto) Total Counted Neutrophils % (Manual) Band Neutrophils % Lymphocytes % (Manual) Reactive Lymphs % Monocytes % (Manual) Eosinophils % (Manual) Basophils % (Manual) Metamyelocytes % Myelocytes % Promyelocytes % Blast Cells % Plasma Cell % (Manual) Nucleated RBC % Hypersegmented Polys Smudge Cells Toxic Granulation Dohle Bodies Devorah Rods Platelet Estimate Plt Clumps, EDTA Large Platelets Giant Platelets RBC Morphology Polychromasia Hypochromasia (manual) Poikilocytosis (manual Basophilic Stippling Anisocytosis (manual) Microcytosis (manual) Macrocytosis (manual) Spherocytes Sickle Cells Target Cells Tear Drop Cells Ovalocytes Stomatocytes Helmet Cells [place] Bodies Naina Cells Acanthocytes (Spur) Rouleaux Schistocytes pCO2 64 H pO2 57 L HCO3 24.1 ABG pH 7.25 L ABG Total CO2 30.1 H ABG O2 Saturation 89.8 L ABG Base Excess -0.6 Frederic Test Yes ABG Potassium 4.5 A-a O2 Difference 576.0 Sodium 129.0 L Chloride 95.0 L Glucose 257 H Lactate 4.6 H* Vent Mode Nrm Mechanical Rate FiO2 100.0 Tidal Volume PEEP Crit Value Called To Eri vickers md Crit Value Called By 6058 Crit Value Read Back Y Blood Gas Notified Time 1010 Potassium Carbon Dioxide Anion Gap BUN Creatinine Est GFR ( Amer) Est GFR (Non-Af Amer) POC Glucose (mg/dL) 265 H Random Glucose Lactic Acid Calcium Phosphorus Magnesium Total Bilirubin AST ALT Alkaline Phosphatase Troponin I NT-Pro-B Natriuret Pep Total Protein Albumin Globulin Albumin/Globulin Ratio Arterial Blood Potassium 4.5 Blood Type A POSITIVE Antibody Screen Negative Crossmatch See Detail BBK History Checked Patient has bt 09/04/18 09/04/18 09/04/18 11:25 11:25 11:25 WBC 28.9 H RBC 3.46 L Hgb 9.6 L D Hct 29.8 L MCV 86.3 D MCH 27.6 MCHC 32.0 L RDW 21.8 H Plt Count 219 MPV 8.6 Neut % (Auto) 96.7 H Lymph % (Auto) 2.1 L Arthur % (Auto) 1.2 Eos % (Auto) 0.0 Baso % (Auto) 0.0 Neut # (Auto) 27.9 H Lymph # (Auto) 0.6 L Arthur # (Auto) 0.3 Eos # (Auto) 0.0 Baso # (Auto) 0.0 Total Counted Cancelled Neutrophils % (Manual) Cancelled Band Neutrophils % Cancelled Lymphocytes % (Manual) Cancelled Reactive Lymphs % Cancelled Monocytes % (Manual) Cancelled Eosinophils % (Manual) Cancelled Basophils % (Manual) Cancelled Metamyelocytes % Cancelled Myelocytes % Cancelled Promyelocytes % Cancelled Blast Cells % Cancelled Plasma Cell % (Manual) Cancelled Nucleated RBC % Cancelled Hypersegmented Polys Cancelled Smudge Cells Cancelled Toxic Granulation Cancelled Dohle Bodies Cancelled Devorah Rods Cancelled Platelet Estimate Cancelled Plt Clumps, EDTA Cancelled Large Platelets Cancelled Giant Platelets Cancelled RBC Morphology Cancelled Polychromasia Cancelled Hypochromasia (manual) Cancelled Poikilocytosis (manual Cancelled Basophilic Stippling Cancelled Anisocytosis (manual) Cancelled Microcytosis (manual) Cancelled Macrocytosis (manual) Cancelled Spherocytes Cancelled Sickle Cells Cancelled Target Cells Cancelled Tear Drop Cells Cancelled Ovalocytes Cancelled Stomatocytes Cancelled Helmet Cells Cancelled [place] Bodies Cancelled Naina Cells Cancelled Acanthocytes (Spur) Cancelled Rouleaux Cancelled Schistocytes Cancelled pCO2 pO2 HCO3 ABG pH ABG Total CO2 ABG O2 Saturation ABG Base Excess Frederic Test ABG Potassium A-a O2 Difference Sodium 132 Chloride 88 L Glucose Lactate Vent Mode Mechanical Rate FiO2 Tidal Volume PEEP Crit Value Called To Crit Value Called By Crit Value Read Back Blood Gas Notified Time Potassium 4.7 Carbon Dioxide 30 Anion Gap 19 BUN 39 H Creatinine 1.2 Est GFR ( Amer) 55 Est GFR (Non-Af Amer) 46 POC Glucose (mg/dL) Random Glucose 224 H Lactic Acid 4.0 H* Calcium 7.7 L Phosphorus 7.3 H Magnesium 2.5 H Total Bilirubin 0.9 AST 39 H ALT 16 Alkaline Phosphatase 125 Troponin I 0.0450 NT-Pro-B Natriuret Pep 98458 H Total Protein 6.0 L Albumin 2.7 L Globulin 3.3 Albumin/Globulin Ratio 0.8 L Arterial Blood Potassium Blood Type Antibody Screen Crossmatch BBK History Checked 09/04/18 09/04/18 09/04/18 12:43 17:34 19:45 WBC RBC Hgb Hct MCV MCH MCHC RDW Plt Count MPV Neut % (Auto) Lymph % (Auto) Arthur % (Auto) Eos % (Auto) Baso % (Auto) Neut # (Auto) Lymph # (Auto) Arthur # (Auto) Eos # (Auto) Baso # (Auto) Total Counted Neutrophils % (Manual) Band Neutrophils % Lymphocytes % (Manual) Reactive Lymphs % Monocytes % (Manual) Eosinophils % (Manual) Basophils % (Manual) Metamyelocytes % Myelocytes % Promyelocytes % Blast Cells % Plasma Cell % (Manual) Nucleated RBC % Hypersegmented Polys Smudge Cells Toxic Granulation Dohle Bodies Devorah Rods Platelet Estimate Plt Clumps, EDTA Large Platelets Giant Platelets RBC Morphology Polychromasia Hypochromasia (manual) Poikilocytosis (manual Basophilic Stippling Anisocytosis (manual) Microcytosis (manual) Macrocytosis (manual) Spherocytes Sickle Cells Target Cells Tear Drop Cells Ovalocytes Stomatocytes Helmet Cells [place] Bodies [place] Cells Acanthocytes (Spur) Rouleaux Schistocytes pCO2 59 H pO2 261 H HCO3 28.4 H ABG pH 7.33 L ABG Total CO2 32.9 H ABG O2 Saturation 99.9 H ABG Base Excess 4.4 H Frederic Test Yes ABG Potassium 4.1 A-a O2 Difference 236.0 Sodium 133.0 Chloride 102.0 Glucose 127 H Lactate 1.2 Vent Mode Mechanical Rate 12 FiO2 80.0 Tidal Volume 400 PEEP 5 Crit Value Called To Crit Value Called By Crit Value Read Back Blood Gas Notified Time Potassium Carbon Dioxide Anion Gap BUN Creatinine Est GFR ( Amer) Est GFR (Non-Af Amer) POC Glucose (mg/dL) 173 H 109 Random Glucose Lactic Acid Calcium Phosphorus Magnesium Total Bilirubin AST ALT Alkaline Phosphatase Troponin I NT-Pro-B Natriuret Pep Total Protein Albumin Globulin Albumin/Globulin Ratio Arterial Blood Potassium 4.1 Blood Type Antibody Screen Crossmatch BBK History Checked - Imaging and Cardiology Chest x-ray Status: Report reviewed by me Additional comment: Date of service: 09/03/2018 HISTORY: SOB COMPARISON: 08/29/2018. FINDINGS: Left-sided MediPort terminates at the cavoatrial junction. LUNGS: The lungs are well inflated. There is severe pulmonary venous congestion and moderate interstitial pulmonary edema. PLEURA: Small effusions. No pneumothorax. CARDIOVASCULAR: Moderate cardiomegaly and prominent central vasculature. No aortic atherosclerotic calcifications present. OSSEOUS STRUCTURES: Within normal limits for the patient's age. VISUALIZED UPPER ABDOMEN: Normal. OTHER FINDINGS: None. IMPRESSION: Moderate congestive heart failure. CHest XR: Status: Report reviewed by me Additional comment: Date of service: 09/04/2018 HISTORY: DYSPNEA COMPARISON: Portable chest 09/03/2018. FINDINGS: LUNGS: Patient has now been intubated with endotracheal tube terminating 4 cm above the loren. Left MediPort unchanged in position. Hazy density at the right perihilar and upper lung zones with air bronchograms suspicious for interval pneumonia, possible aspiration prior to intubation. Clinically correlate further. PLEURA: No significant pleural effusion identified, no pneumothorax apparent. CARDIOVASCULAR: No aortic atherosclerotic calcification present. Cardiac silhouette remains prominent with possible pulmonary vascular congestion bilaterally. OSSEOUS STRUCTURES: No significant abnormalities. VISUALIZED UPPER ABDOMEN: Normal. OTHER FINDINGS: None. IMPRESSION: Adequate intubation as discussed above. Right perihilar/upper lobe infiltrate identified in the interval. Underlying pulmonary vascular congestion apparent. Continued clinical and radiographic monitoring advised. Assessment & Plan (1) Acute respiratory failure with hypoxemia Status: Acute Priority: High (2) Ascites, malignant Status: Acute Priority: High (3) Congestive heart failure (CHF) Status: Acute Priority: High (4) Stage IV breast cancer in female Assessment and Plan: S/P Chemotherapy Status: Acute Priority: High (5) Severe anemia Status: Resolved Priority: High Comment: S/P Transfusion of PRBCs - Assessment and Plan (Free Text) Plan: Status post intubation Mechanical ventilation IV Lasix 40 mg twice daily Pulmonary, cardiology and oncology consult. Monitor H&H Palliative care consult Beta-martha and MAXI inhibitor if blood pressure allows We will transfuse if hemoglobin drops below 7 mg/dl
[2018-09-05] MEDS: Propofol 10 mg/ml 1,000 MG/100 ML VIAL IV SCH ×3 (01:33→23:36)
[2018-09-05] MEDS: Sodium Chloride 0.9% 1,000 ML IV SCH ×3 (01:34→22:05)
[2018-09-05 04:42] LABS: ABG ALLEN TEST YES; ARTERIAL BLOOD GAS HCO3 29.1 mmol/L (21-28); ARTERIAL BLOOD GAS O2 CAPACITY 12.4 mL/dL (16-24); ARTERIAL BLOOD GAS O2 CONTENT 12.3 ML/dL (15-23); ARTERIAL BLOOD GAS PCO2 47 mm/Hg (35-45); ARTERIAL BLOOD GAS PH 7.42 (7.35-7.45); ARTERIAL BLOOD GAS PO2 78 mm/Hg (80-100); ARTERIAL BLOOD GAS TCO2 31.9 mmol/L (22-28)
[2018-09-05 05:33] LABS: HEMOGLOBIN 8.2 g/dL (12.0-16.0); MEAN CELL VOLUME 86.5 fl (81.0-99.0); MEAN CORPUSCULAR HEMOGLOBIN 27.4 pg (27.0-31.0); MEAN CORPUSCULAR HGB CONC 31.6 g/dL (33.0-37.0); RED CELL DISTRIBUTION WIDTH 21.9 % (11.5-14.5); WHITE BLOOD COUNT 21.3 K/uL (4.8-10.8)
[2018-09-05 06:08] LABS: ALB/GLOB RATIO 0.9 (1.0-2.1); ALBUMIN 2.5 g/dL (3.5-5.0); CALCIUM 7.4 mg/dL (8.4-10.2)
--- NOTE | 2018-09-05 07:33 | RAD ---
Date of service: 09/04/2018 HISTORY: intubation COMPARISON: Portable chest 09/04/2018 10:27 a.m.. FINDINGS: LUNGS: Endotracheal tube terminates at the right mainstem bronchus. Retraction into lower trachea is advised follow-up by confirmation radiography. Left MediPort unchanged. Stable mid and superior right sided pulmonary infiltrates are identified with increasing infiltrate at the left perihilar region and possibly medial left base. Trace bilateral pleural effusions are question. No pneumothorax bilaterally. Infiltrate obscures bilateral hilar regions. No definite pulmonary vascular congestion. Cardiac silhouette stable. Late subacute or chronic right 9th posterior rib fracture identified. CARDIOVASCULAR: Calcific atherosclerotic changes are seen related to the thoracic aorta. OSSEOUS STRUCTURES: No significant abnormalities. VISUALIZED UPPER ABDOMEN: Normal. OTHER FINDINGS: None. IMPRESSION: Stable mid to superior right-sided infiltrate with definite infiltrate appreciable at the mid and possibly inferior left lung zones. ET tube in right mainstem bronchus. Retraction into the trachea is advised follow-up by confirmation radiography. Trace bilateral pleural effusions suspected.
--- NOTE | 2018-09-05 07:36 | RAD ---
Date of service: 09/05/2018 HISTORY: adjustment of ET tube COMPARISON: Portable chest 09/04/2018 7:30 p.m.. FINDINGS: LUNGS: Endotracheal tube appears retracted terminating 1.5 cm above the loren. Left MediPort and nasogastric tube not significantly changed in position. No interval change in interval mid to superior right pulmonary infiltrate infiltrate at the left perihilar and medial basilar space not significantly changed in the interval. Minimal bilateral pleural effusions are in question. No pneumothorax bilaterally. Pulmonary vascular pattern is obscured by infiltrates with cardiac silhouette stable. CARDIOVASCULAR: No aortic atherosclerotic calcification present. OSSEOUS STRUCTURES: Acute or chronic right 9th rib fracture again evident. VISUALIZED UPPER ABDOMEN: Normal. OTHER FINDINGS: None. IMPRESSION: Stable bilateral infiltrates and minimal bilateral pleural effusions. Endotracheal tube retracted into the inferior trachea as described above.
[2018-09-05] MEDS: Albuterol-Ipratrop 3 mg / 0.5 (3 ml) UD INH SCH ×4 (07:37→21:18)
[2018-09-05] MEDS: Multivitamin With Minerals Tab PO SCH (08:50)
--- NOTE | 2018-09-05 15:58 | CP.CCUPN ---
CCU Subjective - Physician Review Subjective (Free Text): 09/05/18 16:35 The patient was Seen and examined by me at the bedside, Medical records reviewed and Management issues were discussed and formulated with the house staff. Events reviewed Patient is 58 years old female with past medical history of anemia, anxiety, CHF, deep venous thrombosis, peripheral edema, pulmonary embolism and stage IV advanced metastatic breast cancer Status post chemotherapy 2 days ago Who initially presented to the emergency room on 09/03 for evaluation of intermittent chest pain and shortness of breath for the past 2 days In the emergency room patient stated that this chest pain resolved and breathing got better On exam she was comfortable and was admitted to the medical service Transfused 1 unit of packed red blood cell for hemoglobin of 6.9 also of note Patient recently underwent paracentesis 09/04 Patient was transferred to the intensive care unit after [employer] was called for severe respiratory distress and hypoxemia and patient found to be confused and respiratory distress BP was stable but she was tachycardic, tachypneic and saturating 88% on non- rebreathing mask she is to receive a stat dose of IV Lasix and transferred to the intensive care unit Upon admitting to the to the ICU she was emergently intubated by anesthesia and mechanically ventilated Patient self extubated last night and she was in distress and she was reintubated Currently patient is orally intubated, mechanically ventilated and sedated with Diprivan @ 25mcg/kg/min. RASS -2 She looks comfortable and in no distress Improved oxygenation blood pressure is better on Levophed @ 5mcg/min. Afebrile CCU Objective - Vital Signs / Intake & Output Vital Signs (Last 4 hours): Vital Signs Temp Pulse Resp BP Pulse Ox 09/05/18 12:00 98.2 F 120 H 19 108/68 100 Intake and Output (Last 8hrs): Intake & Output 09/05/18 09/05/18 09/05/18 06:59 14:59 22:59 Intake Total 1336 838 Output Total 550 Balance 786 838 Weight 106 lb Intake: IV 1336 838 Output: Urine 550 Urethral (Orellana) 550 - Physical Exam Physical Exam Limitations: Positive for: Altered Mental Status, Clinical Condition Head: Positive for: Atraumatic, Normocephalic Pupils: Positive for: PERRL Extroacular Muscles: Positive for: EOMI Conjunctiva: Positive for: Normal. Negative for: Injected, Icteric Ears: Positive for: Normal Mouth: Positive for: Moist Mucous Membranes Nose (Internal): Positive for: Normal Inspection Neck: Positive for: Normal Range of Motion, Trachea Midline. Negative for: Meningeal Signs, MIDLINE TENDERNESS, Paraspinal Tenderness, JVD, Lymphadenopathy, Bruit, Other Respiratory/Chest: Positive for: Good Air Exchange, Rales, Retracting, Rhonchi. Negative for: Respiratory Distress, Accessory Muscle Use, Wheezes, Tachypneic Cardiovascular: Positive for: Regular Rate and Rhythm, Normal S1, S2, Peripheal Pulses Present. Negative for: Murmurs, Irregular Rhythm, Tachycardic, Bradycardic Abdomen: Positive for: Distention, Normal Bowel Sounds, Other (bandage over right abdominal wall tatus post probable paracentesis). Negative for: Tenderness Breast/Axillary: Positive for: Other (fungating necrotic mass to Right Breast) Upper Extremity: Positive for: Edema, NORMAL PULSES, Capillary Refill < 2s. Negative for: Normal Inspection, Cyanosis Lower Extremity: Positive for: Edema, NORMAL PULSES, Capillary Refill < 2 s. Negative for: Normal Inspection Psychiatric: Positive for: Other (Sedated and orally intubated). Negative for: Alert, Oriented x 3 - Medications Active Medications: Active Medications Generic Name Dose Route Start Last Admin Trade Name Freq PRN Reason Stop Dose Admin Albuterol/Ipratropium 3 ml 09/04/18 12:00 09/05/18 15:57 Duoneb 3 Mg/0.5 Mg (3 Ml) Ud INH 3 ml RQID GLADIS Administration Alprazolam 0.25 mg 09/04/18 08:41 Xanax PO 09/11/18 08:42 Q12 PRN Anxiety Apixaban 5 mg 09/04/18 09:00 09/05/18 08:50 Eliquis PO 5 mg BID GLADIS Administration Protocol Ferrous Gluconate 324 mg 09/04/18 09:00 09/05/18 08:52 Fergon PO 324 mg TID GLADIS Administration Furosemide 20 mg 09/04/18 09:00 09/05/18 08:54 Lasix PO 20 mg BID GLADIS Administration Hydromorphone HCl 2 mg 09/03/18 23:52 09/05/18 05:04 Dilaudid IVP 2 mg Q4 PRN Administration Pain, severe (8-10) Sodium Chloride 1,000 mls @ 100 mls/hr 09/03/18 23:45 09/05/18 10:56 Sodium Chloride 0.9% IV 100 mls/hr .Q10H GLADIS Administration Norepinephrine Bitartrate 4 mg 254 mls @ 9.53 mls/hr 09/04/18 20:45 09/05/18 10:57 / Dextrose IV 5 mcg/min .Q24H GLADIS 19.05 mls/hr Administration Protocol 2.5 MCG/MIN Metoprolol Tartrate 12.5 mg 09/03/18 23:45 09/05/18 09:55 Lopressor PO Not Given Q12 GLADIS Multivitamins/Minerals 1 tab 09/04/18 09:00 09/05/18 08:50 Therapeutic-M Tab PO 1 tab DAILY GLADIS Administration Sodium Bicarbonate 650 mg 09/04/18 09:00 09/05/18 08:52 Sodium Bicarbonate Tab PO 650 mg BID GLADIS Administration Tamoxifen Citrate 20 mg 09/04/18 09:00 09/05/18 08:50 Nolvadex PO 20 mg DAILY [facility] Administration - Patient Studies Lab Studies: Microbiology Studies 09/04/18 11:25 MRSA Culture (Admit) - Final Naris MRSA NOT DETECTED Lab Studies 09/05/18 09/05/18 09/05/18 Range/Units 04:40 04:40 04:21 WBC 21.3 H (4.8-10.8) K/uL RBC 3.00 L (3.80-5.20) Mil/uL Hgb 8.2 L (12.0-16.0) g/dL Hct 26.0 L (34.0-47.0) % MCV 86.5 (81.0-99.0) fl MCH 27.4 (27.0-31.0) pg MCHC 31.6 L (33.0-37.0) g/dL RDW 21.9 H (11.5-14.5) % Plt Count 122 L D (130-400) K/uL pCO2 47 H (35-45) mm/Hg pO2 78 L (80-100) mm/Hg HCO3 29.1 H (21-28) mmol/L ABG pH 7.42 (7.35-7.45) ABG Total CO2 31.9 H (22-28) mmol/L ABG O2 Saturation 99.0 H (95-98) % ABG O2 Content 12.3 L (15-23) ML/dL ABG Base Excess 5.3 H (-2.0-3.0) mmol/L ABG Hemoglobin 9.0 L (11.7-17.4) g/dL ABG Carboxyhemoglobin 2.2 H (0.5-1.5) % POC ABG HHb (Measured) 1.0 (0.0-5.0) % ABG Methemoglobin 0.5 (0.0-3.0) % ABG O2 Capacity 12.4 L (16-24) mL/dL Frederic Test Yes ABG Potassium (3.6-5.2) mmol/L A-a O2 Difference 148.0 mm/Hg Hgb O2 Saturation 96.2 (95.0-98.0) % Sodium 134 (132-148) mmol/L Chloride 94 L (98-107) mmol/L Glucose (65-105) mg/dL Lactate (0.7-2.1) mmol/L Vent Mode A/c Mechanical Rate 16 FiO2 40.0 % Tidal Volume 400 PEEP 5 Potassium 4.4 (3.6-5.0) MMOL/L Carbon Dioxide 29 (22-30) mmol/L Anion Gap 15 (10-20) BUN 38 H (7-17) mg/dl Creatinine 1.2 (0.7-1.2) mg/dl Est GFR ( Amer) 55 Est GFR (Non-Af Amer) 46 POC Glucose (mg/dL) (65-110) mg/dL Random Glucose 116 H (65-105) mg/dL Calcium 7.4 L (8.4-10.2) mg/dL Total Bilirubin 0.5 (0.2-1.3) mg/dl AST 37 H (14-36) U/L ALT 24 (9-52) U/L Alkaline Phosphatase 105 (38-126) U/L Total Protein 5.5 L (6.3-8.2) G/DL Albumin 2.5 L (3.5-5.0) g/dL Globulin 2.9 (2.2-3.9) gm/dL Albumin/Globulin Ratio 0.9 L (1.0-2.1) Arterial Blood Potassium (3.6-5.2) mmol/L 09/04/18 09/04/18 Range/Units 19:45 17:34 WBC (4.8-10.8) K/uL RBC (3.80-5.20) Mil/uL Hgb (12.0-16.0) g/dL Hct (34.0-47.0) % MCV (81.0-99.0) fl MCH (27.0-31.0) pg MCHC (33.0-37.0) g/dL RDW (11.5-14.5) % Plt Count (130-400) K/uL pCO2 59 H (35-45) mm/Hg pO2 261 H (80-100) mm/Hg HCO3 28.4 H (21-28) mmol/L ABG pH 7.33 L (7.35-7.45) ABG Total CO2 32.9 H (22-28) mmol/L ABG O2 Saturation 99.9 H (95-98) % ABG O2 Content (15-23) ML/dL ABG Base Excess 4.4 H (-2.0-3.0) mmol/L ABG Hemoglobin (11.7-17.4) g/dL ABG Carboxyhemoglobin (0.5-1.5) % POC ABG HHb (Measured) (0.0-5.0) % ABG Methemoglobin (0.0-3.0) % ABG O2 Capacity (16-24) mL/dL Frederic Test Yes ABG Potassium 4.1 (3.6-5.2) mmol/L A-a O2 Difference 236.0 mm/Hg Hgb O2 Saturation (95.0-98.0) % Sodium 133.0 (132-148) mmol/L Chloride 102.0 (98-107) mmol/L Glucose 127 H (65-105) mg/dL Lactate 1.2 (0.7-2.1) mmol/L Vent Mode Mechanical Rate 12 FiO2 80.0 % Tidal Volume 400 PEEP 5 Potassium (3.6-5.0) MMOL/L Carbon Dioxide (22-30) mmol/L Anion Gap (10-20) BUN (7-17) mg/dl Creatinine (0.7-1.2) mg/dl Est GFR ( Amer) Est GFR (Non-Af Amer) POC Glucose (mg/dL) 109 (65-110) mg/dL Random Glucose (65-105) mg/dL Calcium (8.4-10.2) mg/dL Total Bilirubin (0.2-1.3) mg/dl AST (14-36) U/L ALT (9-52) U/L Alkaline Phosphatase (38-126) U/L Total Protein (6.3-8.2) G/DL Albumin (3.5-5.0) g/dL Globulin (2.2-3.9) gm/dL Albumin/Globulin Ratio (1.0-2.1) Arterial Blood Potassium 4.1 (3.6-5.2) mmol/L Laboratory Results - last 24 hr 09/04/18 09/04/18 09/05/18 17:34 19:45 04:21 WBC RBC Hgb Hct MCV MCH MCHC RDW Plt Count pCO2 59 H 47 H pO2 261 H 78 L HCO3 28.4 H 29.1 H ABG pH 7.33 L 7.42 ABG Total CO2 32.9 H 31.9 H ABG O2 Saturation 99.9 H 99.0 H ABG O2 Content 12.3 L ABG Base Excess 4.4 H 5.3 H ABG Hemoglobin 9.0 L ABG Carboxyhemoglobin 2.2 H POC ABG HHb (Measured) 1.0 ABG Methemoglobin 0.5 ABG O2 Capacity 12.4 L Frederic Test Yes Yes ABG Potassium 4.1 A-a O2 Difference 236.0 148.0 Hgb O2 Saturation 96.2 Sodium 133.0 Chloride 102.0 Glucose 127 H Lactate 1.2 Vent Mode A/c Mechanical Rate 12 16 FiO2 80.0 40.0 Tidal Volume 400 400 PEEP 5 5 Potassium Carbon Dioxide Anion Gap BUN Creatinine Est GFR ( Amer) Est GFR (Non-Af Amer) POC Glucose (mg/dL) 109 Random Glucose Calcium Total Bilirubin AST ALT Alkaline Phosphatase Total Protein Albumin Globulin Albumin/Globulin Ratio Arterial Blood Potassium 4.1 09/05/18 09/05/18 04:40 04:40 WBC 21.3 H RBC 3.00 L Hgb 8.2 L Hct 26.0 L MCV 86.5 MCH 27.4 MCHC 31.6 L RDW 21.9 H Plt Count 122 L D pCO2 pO2 HCO3 ABG pH ABG Total CO2 ABG O2 Saturation ABG O2 Content ABG Base Excess ABG Hemoglobin ABG Carboxyhemoglobin POC ABG HHb (Measured) ABG Methemoglobin ABG O2 Capacity Frederic Test ABG Potassium A-a O2 Difference Hgb O2 Saturation Sodium 134 Chloride 94 L Glucose Lactate Vent Mode Mechanical Rate FiO2 Tidal Volume PEEP Potassium 4.4 Carbon Dioxide 29 Anion Gap 15 BUN 38 H Creatinine 1.2 Est GFR ( Amer) 55 Est GFR (Non-Af Amer) 46 POC Glucose (mg/dL) Random Glucose 116 H Calcium 7.4 L Total Bilirubin 0.5 AST 37 H ALT 24 Alkaline Phosphatase 105 Total Protein 5.5 L Albumin 2.5 L Globulin 2.9 Albumin/Globulin Ratio 0.9 L Arterial Blood Potassium Radiology Impressions: Radiology Impressions Chest X-Ray 09/04/18 19:32 IMPRESSION: Stable mid to superior right-sided infiltrate with definite infiltrate appreciable at the mid and possibly inferior left lung zones. ET tube in right mainstem bronchus. Retraction into the trachea is advised follow-up by confirmation radiography. Trace bilateral pleural effusions suspected. Chest X-Ray 09/04/18 23:59 IMPRESSION: Stable bilateral infiltrates and minimal bilateral pleural effusions. Endotracheal tube retracted into the inferior trachea as described above. Review of Systems - Review of Systems Systems not reviewed;Unavailable: Intubated Critical Care Progress Note - Ventilator Checklist Head of Bed 30 Degrees: Yes Daily Sedation Vacation: Yes Daily Assessment of Readiness to Wean: Yes Daily Spontaneous Breathing Trial: Yes PUD Prophalyxis: Yes DVT Prophylaxis: Yes Oral Care with Chlorhexidine Gluconate {CHG}: Yes - Extremities/Vascular Does the Patient have a Central Venous Catheter?: No Does the Patient need a Central Venous Catheter?: No Does the Patient have a Orellana Catheter?: No Does the Patient need a Orellana Catheter?: No Assessment/Plan (1) Congestive heart failure (CHF) Current Visit: Yes Status: Acute Priority: High Comment: Intubated for hypoxemic respiratory failure strict I&O, Maintian negative fluid balance Continue diuresis as blood pressure permits We will start spontaneous breathing trial with SAT/SBT when clinically improved and volume status stable (2) Anemia Current Visit: Yes Status: Acute Priority: High Comment: Anemia is likely multifactorial from chronic disease and malignancy No signs of active bleeding at that time Transfuse as needed Hematology oncology consult appreciated (3) DVT of lower extremity, bilateral Current Visit: Yes Status: Acute Priority: High Comment: Patient with H/O provoked DVT and Pulmonary embolism Continue Apixaban (Eliquis) if okay for ohematology (4) Ascites Current Visit: No Status: Acute (5) Elevated brain natriuretic peptide (BNP) level Current Visit: No Status: Acute Priority: High (6) Pulmonary embolism on left Current Visit: No Status: Acute (7) S/P thoracentesis Current Visit: No Status: Acute (8) Breast CA Current Visit: Yes Status: Acute Priority: High - Assessment and Plan (Free Text) Assessment: Patient critically ill hypotensive and vasopressor, orally intubated Discussed the plan of care, diagnosis, treatment plans and alternative with the family Family defer hospice care Patient remain full code Total critical care time 42 minutes
--- NOTE | 2018-09-05 23:59 | CP.PCM.PN ---
Subjective - Date & Time of Evaluation Date of Evaluation: 09/05/18 Time of Evaluation: 18:45 - Subjective Subjective: Seen and examined at the bed side. Patient Continue to bleed per Vaginal and Hemturia. Patient has been intubated for 7 Days. Continue to be Hypotensive, and on Levophed 10 mcg/min. D/w the family in detail about the Poor prognosis asso ciated with the patient's multiple Critical conditions: Acute Resp Failure, Pneumonia, Severe cardiomyopathy, Severe Sepsis, Severe Thrombocytopenia and Anemia, Bleeding, Stage IV Breast Cancer and Malignant Ascites, and family declined DNR and Palliative care. Informed the need for Tracheostomy if patient continue to be Intubated and unable to extuba Objective - Vital Signs/Intake and Output Vital Signs (last 24 hours): Temp Pulse Resp BP Pulse Ox 100 F H 110 H 16 104/63 100 09/05/18 23:00 09/05/18 23:00 09/05/18 23:00 09/05/18 23:00 09/05/18 23:00 Intake and Output: 09/05/18 09/06/18 18:59 06:59 Intake Total 1706 412 Output Total 800 750 Balance 906 -338 - Medications Medications: Current Medications Albuterol/Ipratropium (Duoneb 3 Mg/0.5 Mg (3 Ml) Ud) 3 ml INH RQID [facility] Last Admin: 09/05/18 21:18 Dose: 3 ml Alprazolam (Xanax) 0.25 mg PO Q12 PRN PRN Reason: Anxiety Stop: 09/11/18 08:42 Apixaban (Eliquis) 5 mg PO BID [facility]; Protocol Last Admin: 09/05/18 17:21 Dose: 5 mg Ferrous Gluconate (Fergon) 324 mg PO TID [facility] Last Admin: 09/05/18 17:18 Dose: 324 mg Furosemide (Lasix) 20 mg PO BID [facility] Last Admin: 09/05/18 17:20 Dose: Not Given Hydromorphone HCl (Dilaudid) 2 mg IVP Q4 PRN PRN Reason: Pain, severe (8-10) Last Admin: 09/05/18 05:04 Dose: 2 mg Sodium Chloride (Sodium Chloride 0.9%) 1,000 mls @ 100 mls/hr IV .Q10H [facility] Last Admin: 09/05/18 22:05 Dose: 100 mls/hr Norepinephrine Bitartrate 4 mg (/ Dextrose) 254 mls @ 9.53 mls/hr IV .Q24H [facility]; Protocol Last Titration: 09/05/18 15:00 Dose: 0 mcg/min, 0 mls/hr Propofol (Diprivan) 1,000 mg in 100 mls @ 10.097 mls/hr IV .Q9H55M [facility]; Protocol Stop: 09/06/18 22:50 Last Admin: 09/05/18 23:36 Dose: 35 mcg/kg/min, 10.097 mls/hr Metoprolol Tartrate (Lopressor) 12.5 mg PO Q12 [facility] Last Admin: 09/05/18 22:04 Dose: Not Given Multivitamins/Minerals (Therapeutic-M Tab) 1 tab PO DAILY [facility] Last Admin: 09/05/18 08:50 Dose: 1 tab Sodium Bicarbonate (Sodium Bicarbonate Tab) 650 mg PO BID [facility] Last Admin: 09/05/18 17:23 Dose: 650 mg Tamoxifen Citrate (Nolvadex) 20 mg PO DAILY [facility] Last Admin: 09/05/18 08:50 Dose: 20 mg - Labs Labs: 09/05/18 04:40 09/05/18 04:40 PT 17.8 Seconds (9.8-13.1) H 09/03/18 19:08 INR 1.6 09/03/18 19:08 APTT 28.6 Seconds (25.6-37.1) 09/03/18 19:08 Assessment and Plan (1) Acute respiratory failure with hypoxemia Status: Acute (2) Acute respiratory failure with hypoxia Status: Acute (3) Anasarca Status: Acute (4) Ascites, malignant Status: Acute (5) Breast CA Status: Acute (6) Coagulopathy Status: Acute (7) Congestive heart failure (CHF) Status: Acute (8) Elevated brain natriuretic peptide (BNP) level Status: Acute (9) Malignant pleural effusion Status: Acute (10) Preop cardiovascular exam Status: Acute (11) Pulmonary embolism on left Status: Acute (12) S/P thoracentesis Status: Acute (13) Tumor lysis syndrome Status: Acute (14) DVT of lower extremity, bilateral Status: Chronic (15) Septic shock Status: Resolved (16) Severe anemia Status: Resolved (17) Thrombocytopenia Status: Resolved
[2018-09-06 05:24] LABS: ABG ALLEN TEST YES; ARTERIAL BLOOD GAS HCO3 29.5 mmol/L (21-28); ARTERIAL BLOOD GAS HEMOGLOBIN 7.2 g/dL (11.7-17.4); ARTERIAL BLOOD GAS O2 CAPACITY 10.2 mL/dL (16-24); ARTERIAL BLOOD GAS O2 CONTENT 10.1 ML/dL (15-23); ARTERIAL BLOOD GAS O2 SAT 99.4 % (95-98); ARTERIAL BLOOD GAS PCO2 49 mm/Hg (35-45); ARTERIAL BLOOD GAS PH 7.41 (7.35-7.45); ARTERIAL BLOOD GAS PO2 153 mm/Hg (80-100); ARTERIAL BLOOD GAS TCO2 32.6 mmol/L (22-28)
[2018-09-06 05:31] LABS: HEMOGLOBIN 7.2 g/dL (12.0-16.0); MEAN CORPUSCULAR HEMOGLOBIN 27.6 pg (27.0-31.0); MEAN CORPUSCULAR HGB CONC 31.8 g/dL (33.0-37.0); RBC 2.62 Mil/uL (3.80-5.20); RED CELL DISTRIBUTION WIDTH 21.8 % (11.5-14.5); WHITE BLOOD COUNT 14.5 K/uL (4.8-10.8)
[2018-09-06 05:33] LABS: CALCIUM 7.4 mg/dL (8.4-10.2)
[2018-09-06] MEDS: Sodium Chloride 0.9% 1,000 ML IV SCH (06:10)
[2018-09-06] MEDS: Albuterol-Ipratrop 3 mg / 0.5 (3 ml) UD INH SCH ×4 (07:35→19:18)
[2018-09-06] MEDS: Propofol 10 mg/ml 1,000 MG/100 ML VIAL IV SCH ×2 (08:42→17:07)
[2018-09-06] MEDS: Multivitamin With Minerals Tab PO SCH (08:49)
--- NOTE | 2018-09-06 11:40 | RAD ---
Date of service: 09/06/2018 PROCEDURE: CHEST RADIOGRAPH, 1 VIEW HISTORY: intubated COMPARISON: 09/05/2018 FINDINGS: LUNGS: Extensive bilateral pulmonary opacity, somewhat improved compared to the prior examination. Generalized right-sided opacity with left perihilar distribution. PLEURA: No definite pleural effusion. No pneumothorax. CARDIOVASCULAR: ET tube situated with tip at tracheal loren. This should be withdrawn somewhat. NG tube and left IJ central venous catheter are grossly unchanged. Normal heart size. No definite congestive change. OSSEOUS STRUCTURES: No significant abnormalities. VISUALIZED UPPER ABDOMEN: Normal. OTHER FINDINGS: None. IMPRESSION: Bilateral infiltrates somewhat improved compared to prior. No definite pleural effusion. ET tube tip at tracheal loren should be withdrawn by at least several cm. These findings were discussed by telephone with the patient's nurse, Holli Salas, at 11:34 a.m. on 09/06/2018.
--- NOTE | 2018-09-06 12:14 | CP.PCM.PN ---
Subjective - Date & Time of Evaluation Date of Evaluation: 09/05/18 Time of Evaluation: 20:00 - Subjective Subjective: Vented, opens eyes Objective - Vital Signs/Intake and Output Vital Signs (last 24 hours): Temp Pulse Resp BP Pulse Ox 98.9 F 112 H 17 103/59 L 100 09/06/18 08:00 09/06/18 10:00 09/06/18 10:00 09/06/18 10:00 09/06/18 10:00 Intake and Output: 09/06/18 09/06/18 06:59 18:59 Intake Total 1752 100 Output Total 1150 Balance 602 100 - Medications Medications: Current Medications Albuterol/Ipratropium (Duoneb 3 Mg/0.5 Mg (3 Ml) Ud) 3 ml INH RQID [facility] Last Admin: 09/06/18 11:12 Dose: Not Given Alprazolam (Xanax) 0.25 mg PO Q12 PRN PRN Reason: Anxiety Stop: 09/11/18 08:42 Apixaban (Eliquis) 5 mg PO BID [facility]; Protocol Last Admin: 09/06/18 09:42 Dose: Not Given Ferrous Gluconate (Fergon) 324 mg PO TID [facility] Last Admin: 09/06/18 08:45 Dose: 324 mg Furosemide (Lasix) 20 mg PO BID [facility] Last Admin: 09/06/18 08:45 Dose: 20 mg Hydromorphone HCl (Dilaudid) 2 mg IVP Q4 PRN PRN Reason: Pain, severe (8-10) Last Admin: 09/06/18 00:17 Dose: 2 mg Sodium Chloride (Sodium Chloride 0.9%) 1,000 mls @ 100 mls/hr IV .Q10H [facility] Last Admin: 09/06/18 06:10 Dose: 100 mls/hr Norepinephrine Bitartrate 4 mg (/ Dextrose) 254 mls @ 9.53 mls/hr IV .Q24H [facility]; Protocol Last Titration: 09/05/18 15:00 Dose: 0 mcg/min, 0 mls/hr Propofol (Diprivan) 1,000 mg in 100 mls @ 10.097 mls/hr IV .Q9H55M [facility]; Protocol Stop: 09/06/18 22:50 Last Admin: 09/06/18 08:42 Dose: 35 mcg/kg/min, 10.097 mls/hr Metoprolol Tartrate (Lopressor) 12.5 mg PO Q12 [facility] Last Admin: 09/06/18 08:46 Dose: 12.5 mg Multivitamins/Minerals (Therapeutic-M Tab) 1 tab PO DAILY [facility] Last Admin: 09/06/18 08:49 Dose: 1 tab Sodium Bicarbonate (Sodium Bicarbonate Tab) 650 mg PO BID [facility] Last Admin: 09/06/18 08:49 Dose: 650 mg Tamoxifen Citrate (Nolvadex) 20 mg PO DAILY [facility] Last Admin: 09/06/18 08:47 Dose: 20 mg - Labs Labs: 09/06/18 04:45 09/06/18 04:45 PT 17.8 Seconds (9.8-13.1) H 09/03/18 19:08 INR 1.6 09/03/18 19:08 APTT 28.6 Seconds (25.6-37.1) 09/03/18 19:08 - Head Exam Head Exam: ATRAUMATIC - Eye Exam Eye Exam: Normal appearance - ENT Exam ENT Exam: Mucous Membranes Dry - Respiratory Exam Respiratory Exam: Decreased Breath Sounds - Cardiovascular Exam Cardiovascular Exam: +S1, +S2 - GI/Abdominal Exam GI & Abdominal Exam: Normal Bowel Sounds - Extremities Exam Extremities Exam: Pedal Edema Assessment and Plan (1) Anemia Assessment & Plan: secondary to chemotherapy and chronic disease transfusion support PRN Status: Acute (2) Leukocytosis Assessment & Plan: suspect reactive to malignancy Status: Acute (3) Pulmonary embolism Assessment & Plan: provoked from malignancy on Eliquis; hold if plt < 50,000 Status: Acute (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
--- NOTE | 2018-09-06 12:17 | CP.PCM.PN ---
Subjective - Date & Time of Evaluation Date of Evaluation: 09/06/18 Time of Evaluation: 10:00 - Subjective Subjective: Vented, opens eyes. Objective - Vital Signs/Intake and Output Vital Signs (last 24 hours): Temp Pulse Resp BP Pulse Ox 98.9 F 112 H 17 103/59 L 100 09/06/18 08:00 09/06/18 10:00 09/06/18 10:00 09/06/18 10:00 09/06/18 10:00 Intake and Output: 09/06/18 09/06/18 06:59 18:59 Intake Total 1752 100 Output Total 1150 Balance 602 100 - Medications Medications: Current Medications Albuterol/Ipratropium (Duoneb 3 Mg/0.5 Mg (3 Ml) Ud) 3 ml INH RQID [facility] Last Admin: 09/06/18 11:12 Dose: Not Given Alprazolam (Xanax) 0.25 mg PO Q12 PRN PRN Reason: Anxiety Stop: 09/11/18 08:42 Apixaban (Eliquis) 5 mg PO BID [facility]; Protocol Last Admin: 09/06/18 09:42 Dose: Not Given Ferrous Gluconate (Fergon) 324 mg PO TID [facility] Last Admin: 09/06/18 08:45 Dose: 324 mg Furosemide (Lasix) 20 mg PO BID [facility] Last Admin: 09/06/18 08:45 Dose: 20 mg Hydromorphone HCl (Dilaudid) 2 mg IVP Q4 PRN PRN Reason: Pain, severe (8-10) Last Admin: 09/06/18 00:17 Dose: 2 mg Sodium Chloride (Sodium Chloride 0.9%) 1,000 mls @ 100 mls/hr IV .Q10H [facility] Last Admin: 09/06/18 06:10 Dose: 100 mls/hr Norepinephrine Bitartrate 4 mg (/ Dextrose) 254 mls @ 9.53 mls/hr IV .Q24H [facility]; Protocol Last Titration: 09/05/18 15:00 Dose: 0 mcg/min, 0 mls/hr Propofol (Diprivan) 1,000 mg in 100 mls @ 10.097 mls/hr IV .Q9H55M [facility]; Protocol Stop: 09/06/18 22:50 Last Admin: 09/06/18 08:42 Dose: 35 mcg/kg/min, 10.097 mls/hr Metoprolol Tartrate (Lopressor) 12.5 mg PO Q12 [facility] Last Admin: 09/06/18 08:46 Dose: 12.5 mg Multivitamins/Minerals (Therapeutic-M Tab) 1 tab PO DAILY [facility] Last Admin: 09/06/18 08:49 Dose: 1 tab Sodium Bicarbonate (Sodium Bicarbonate Tab) 650 mg PO BID [facility] Last Admin: 09/06/18 08:49 Dose: 650 mg Tamoxifen Citrate (Nolvadex) 20 mg PO DAILY [facility] Last Admin: 09/06/18 08:47 Dose: 20 mg - Labs Labs: 09/06/18 04:45 09/06/18 04:45 PT 17.8 Seconds (9.8-13.1) H 09/03/18 19:08 INR 1.6 09/03/18 19:08 APTT 28.6 Seconds (25.6-37.1) 09/03/18 19:08 - Head Exam Head Exam: ATRAUMATIC - Eye Exam Eye Exam: Normal appearance - ENT Exam ENT Exam: Mucous Membranes Dry - Respiratory Exam Respiratory Exam: Decreased Breath Sounds - Cardiovascular Exam Cardiovascular Exam: +S1, +S2 - GI/Abdominal Exam GI & Abdominal Exam: Normal Bowel Sounds - Extremities Exam Extremities Exam: Pedal Edema Assessment and Plan (1) Anemia Assessment & Plan: down trending recent chemotherapy and chronic disease transfusion support PRN Status: Acute (2) Thrombocytopenia Assessment & Plan: secondary to recent chemotherapy transfusion support if plt < 20,000 or evidence of significant bleeding Status: Acute (3) Leukocytosis Assessment & Plan: reactive to chemotherapy down trending likely related to recent chemotherapy Status: Acute (4) Pulmonary embolism Assessment & Plan: provoked from malignancy on Eliquis - hold if plt <50,000 Status: Acute (5) 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
--- NOTE | 2018-09-06 13:40 | RAD ---
Date of service: 09/06/2018 HISTORY: ett placement COMPARISON: 09/06/2018 FINDINGS: LUNGS: Lateral shallow lung volumes right greater than left. The coalescent airspace opacities in the left lung patchy are similar. The coalescent opacities in the right lung-most pronounced in the right upper lobe are probably slightly increased since prior exam allowing for differences in technique. Endotracheal tube tip no longer in the right mainstem bronchus-this has been retracted is approximately 2.5 cm proximal to the loren now. PLEURA: Interval increase right pleural effusion. Effusion is small still. Minimal compressive atelectasis at the lateral right lung base possible. No pneumothorax seen. CARDIOVASCULAR: There is presence of aortic atherosclerotic calcification on x-ray. Mild cardiomegaly-similar. Pulmonary vascular congestion suspect-some of the bilateral opacities may in part be pulmonary venous congestion in addition to bilateral pulmonary infiltrates. OSSEOUS STRUCTURES: The left sided central venous catheter tip is in the right atrium as before. No significant abnormalities. VISUALIZED UPPER ABDOMEN: Nasogastric tube courses along the stomach the tip is beyond the inferior edge of this study. OTHER FINDINGS: None. IMPRESSION: Interval radiographically worsening right sided patchy coalescent infiltrates especially in the right upper lobe. A concomitant pulmonary venous congestion is likely present. Interval increased right pleural effusion now still small/mild in degree. Interval endotracheal tube retraction tip approximately 2.5 cm proximal to the loren. Other tubes and lines as above.
[2018-09-06] MEDS ORDERED: Lactated Ringer's 1,000 ML IV SCH (16:00)
[2018-09-06] MEDS: Proshield Plus GEL TOP SCH (17:10)
--- NOTE | 2018-09-06 20:48 | CP.CCUPN ---
CCU Subjective - Physician Review Subjective (Free Text): Sedated on MV, on mod-high dose Propofol 35mcg dose, RASS is neg 3, breathing 17 on AC 16, TV 400ml, 50% PEEP 5. ETT re-positioned 3 cm higher this AM. Afebrile, + temp spike overnight to 100.2F, SBPs 80-90s, HR 115, 17, 100% SPO2. Approx 2.8 liter positive fluid balance. NSS at 100ml/hr. Off Levophed. No other distress noted. ROS: No other pertinent negs or positive on 10+ system review obtainable due to sedation. Other PMSFH: All other Nursing and physician documentation reviewed to date; no new pertinent info noted relevant to current medical problems. EXAM- HEENT: no icterus, pupils equal, 3 mm and reactive, no gaze preference NECK: no visible JVD, supple, carotids equal upstroke bilat/no bruits CHEST: decreased BS bases, no wheezes audible, bloody fluid drained dressing over R breast. Left chest portacath. HEART: regular, distant, tachy S1S2, no murmur audible, no rubs. ABD: soft, no increased distention, no focal tenderness, BS hypoactive, dried necrotic lesion over umbilicus unchanged. Serous fluid draining from RUQ old paracentesis site. EXT: ++ edema LEs, +ulcer posterior R calf worse than L, no calf tenderness or palpable cords, distal pulses intact and symmetrical NEURO: withdraws to pain stimuli, + tone SKIN: no rashes LABS: WBC= 14.5 HGB= 7.2 PLTs = 79K 7.41/49/153 Fib = 331 on 09/04/18 Na= 136 K= 3.6 Cl= 95 HCO3= 30 BUN/Cr= 41/1.4 BS= 126 CXR: (my interp)- ETT position near loren on 1st AM film, re-positioned higher, and repeat film shows improved positioning. Diffuse infiltrates over R lung, more so than left lung persist. IMPRESSION / MAJOR PROBLEMS NOW: 1. Acute hypoxemic Resp Failure, 2 bilat multi-lobar pneumonia 2. Hypotension / Hypovolemia with Azotemia 3. Severe Sepsis with shock, 2 Pneumonia, r/o bacteremia 4. Acute on Chronic disease Anemia 5. h/o DVT- bilat CFV on Feb 5. 6. s/p Paracentesis Feb 5 for 2.5 liters PLAN: 1. Sputum Cx 2. Empiric abx coverage with 3. Hold Eliquis (Bloody oral secretions and bloody urine, vaginal bleeding, unstable Hgb), PRBCs today to augment BP. 4. More volume expansion, additional LR 1000ml ordered. 5. CT chest to evaluate interstitial opacities further. 6. Full resuscitative measures as per Family. Time spent with this patient did not overlap with any other provider's medical or critical care time. Additionally the code selected for the services rendered in this note includes the time spent: talking to the patients family, associated physicians and reviewing hospital data/results not listed here which extended to a total of 35 minutes.
[2018-09-07] MEDS ORDERED: Sodium Chloride 0.9% 500 ML IV ONE (00:59)
[2018-09-07] MEDS: Proshield Plus GEL TOP SCH ×3 (01:58→19:13)
[2018-09-07] MEDS: Propofol 10 mg/ml 1,000 MG/100 ML VIAL IV SCH ×2 (02:55→10:25)
--- NOTE | 2018-09-07 04:19 | CP.PCM.PCO ---
Physician Communication Note - Physician Communication Note Physician Communication Note: Blood pressure 80/47mmHg. No improvement with IV fluids. Start Levophed.
[2018-09-07 05:38] LABS: BASO % 0.4 % (0.0-2.0); EOS % 0.1 % (0.0-4.0); HEMOGLOBIN 9.6 g/dL (12.0-16.0); LYMPH # 0.4 K/uL (1.0-4.3); LYMPH % 3.7 % (20.0-40.0); MEAN CELL VOLUME 89.6 fl (81.0-99.0); MEAN CORPUSCULAR HEMOGLOBIN 35.3 pg (27.0-31.0); MEAN CORPUSCULAR HGB CONC 39.4 g/dL (33.0-37.0); MEAN PLATELET VOLUME 10.5 fl (7.2-11.7); MONO # 0.1 K/uL (0.0-0.8); MONO % 0.6 % (0.0-10.0); NEUT # 9.9 K/uL (1.8-7.0); NEUT % 95.2 % (50.0-75.0); NRBC % 0.1 % (0.0-0.0); PLATELET COUNT 71 K/uL (130-400); RBC 2.71 Mil/uL (3.80-5.20); RED CELL DISTRIBUTION WIDTH 18.5 % (11.5-14.5); WHITE BLOOD COUNT 10.4 K/uL (4.8-10.8)
[2018-09-07 05:51] LABS: CALCIUM 6.9 mg/dL (8.4-10.2)
[2018-09-07 06:10] LABS: ABG ALLEN TEST YES; ARTERIAL BLOOD GAS HCO3 25.3 mmol/L (21-28); ARTERIAL BLOOD GAS HEMOGLOBIN 8.5 g/dL (11.7-17.4); ARTERIAL BLOOD GAS O2 CAPACITY 11.8 mL/dL (16-24); ARTERIAL BLOOD GAS O2 CONTENT 11.8 ML/dL (15-23); ARTERIAL BLOOD GAS PCO2 45 mm/Hg (35-45); ARTERIAL BLOOD GAS PH 7.37 (7.35-7.45); ARTERIAL BLOOD GAS PO2 154 mm/Hg (80-100); ARTERIAL BLOOD GAS TCO2 27.4 mmol/L (22-28)
[2018-09-07] MEDS: Albuterol-Ipratrop 3 mg / 0.5 (3 ml) UD INH SCH ×4 (07:25→20:40)
[2018-09-07] MEDS ORDERED: Sodium Chloride 0.9% 1,000 ML IV SCH (08:45)
[2018-09-07] MEDS ORDERED: Sod Polystyrene Sulf 15 gm/60 ml Susp PO ONE (09:00)
[2018-09-07] MEDS: Multivitamin With Minerals Tab PO SCH (09:18)
[2018-09-07 10:39] LABS: URIC ACID 10.7 mg/Dl (2.2-7.5)
[2018-09-07 11:30] LABS: BANDS 3 % (0-2); LYMPHOCYTE 5 % (20-50); METAMYELOCYTE 1 % (0-0); MONOCYTE 1 % (0-10); MYELOCYTE 1 % (0-0); NEUTROPHIL 89 % (42-75); TOTAL CELLS COUNTED 100
[2018-09-07 11:31] LABS: PLATELET ESTIMATE DECREASED (NORMAL)
[2018-09-07 11:35] LABS: ANISOCYTOSIS SLIGHT; HYPOCHROMIC MODERATE; TEARDROP CELLS SLIGHT; TOXIC GRANULATION PRESENT
--- NOTE | 2018-09-07 11:41 | CP.CCUPN ---
CCU Subjective - Physician Review Subjective (Free Text): Remains sedated on MV, on Propofol 35mcg dose, RASS is neg 3, breathing 16 on AC 16, TV 400ml, 50% PEEP 5. Only opens eyes during sedation holiday, before becoming agitated and dysynchronous on MV. Levophed started overnight. Afebrile, + temp spike overnight to 102.9F, SBPs 80-90s, HR 125, 16, 100% SPO2. Approx 2.8 liter positive fluid balance. NSS at 100ml/hr. No other distress noted. ROS: No other pertinent negs or positive on 10+ system review obtainable due to sedation. Other PMSFH: All other Nursing and physician documentation reviewed to date; no new pertinent info noted relevant to current medical problems. EXAM- HEENT: no icterus, pupils equal, 3 mm and reactive, no gaze preference NECK: no visible JVD, supple, carotids equal upstroke bilat/no bruits CHEST: decreased BS bases, no wheezes audible, bloody fluid drained dressing over R breast. Left chest portacath. HEART: regular, distant, tachy S1S2, no murmur audible, no rubs. ABD: soft, no increased distention, no focal tenderness, BS hypoactive, dried necrotic lesion over umbilicus unchanged. Serous fluid draining from RUQ old paracentesis site. EXT: ++ edema LEs, +ulcer posterior R calf worse than L, no calf tenderness or palpable cords, distal pulses intact and symmetrical NEURO: withdraws to pain stimuli, + tone SKIN: no rashes LABS: WBC= 10.4 HGB= 9.6 PLTs = 71K 7.37/45/154 Na= 135 K= 6.0 Cl= 98 HCO3= 23 BUN/Cr= 64/1.8 BS= 131 CXR: (my interp)- ETT position OK above loren. Diffuse infiltrates over R lung, more so than left lung persist. IMPRESSION / MAJOR PROBLEMS NOW: 1. Acute hypoxemic Resp Failure, 2 bilat multi-lobar pneumonia 2. Tumor Lysis Syndrome 3. Severe Sepsis with shock, 2 Pneumonia, r/o bacteremia 4. Acute on Chronic disease Anemia 5. h/o DVT- bilat CFV on Feb 5. 6. s/p Paracentesis Feb 5 for 2.5 liters PLAN: 1. Sputum Cx 2. Empiric abx coverage with Vanco / Zosyn started 3. Hold Eliquis (Bloody oral secretions and bloody urine, vaginal bleeding, unstable Hgb), PRBCs given yesterday, HGB at expected levels. 4. If uric acid is high, will start Allopurinol, continue volume expansion. Kayexalate ordered. 5. Consider CT chest to evaluate interstitial opacities further. 6. Full resuscitative measures as per Family. Time spent with this patient did not overlap with any other provider's medical or critical care time. Additionally the code selected for the services rendered in this note includes the time spent: talking to the patients family, associated physicians and reviewing hospital data/results not listed here which extended to a total of 30 minutes of critical care.
--- NOTE | 2018-09-07 12:06 | RAD ---
Date of service: 09/07/2018 HISTORY: intubated COMPARISON: 09/06/2018. FINDINGS: Endotracheal tube terminates in the mid trachea. The nasogastric tube terminates in the stomach. The left IJV line terminates at the cavoatrial junction. LUNGS: The lungs are well inflated. There is interval significant improved aeration in the lungs with improved pulmonary edema. There is persistent severe pulmonary venous congestion. There is ill-defined airspace disease in both lower lobes. PLEURA: Suspect layering effusions. No pneumothorax. CARDIOVASCULAR: The heart is normal in size. No aortic atherosclerotic calcifications present. OSSEOUS STRUCTURES: Within normal limits for the patient's age. VISUALIZED UPPER ABDOMEN: Normal. OTHER FINDINGS: None. IMPRESSION: Interval improved aeration in the lungs with residual severe pulmonary venous congestion. Airspace disease in the lower lobes may represent atelectasis/pulmonary edema. Follow-up is advised. Stable position of support line and tubes.
--- NOTE | 2018-09-07 19:58 | CP.PCM.PN ---
Subjective - Date & Time of Evaluation Date of Evaluation: 09/07/18 Time of Evaluation: 19:00 - Subjective Subjective: Vented Objective - Vital Signs/Intake and Output Vital Signs (last 24 hours): Temp Pulse Resp BP Pulse Ox 102.1 F H 120 H 17 94/50 L 100 09/07/18 16:00 09/07/18 18:00 09/07/18 18:00 09/07/18 18:00 09/07/18 18:00 Intake and Output: 09/07/18 09/08/18 18:59 06:59 Intake Total 3416 0 Output Total 537 Balance 2879 0 - Medications Medications: Current Medications Albuterol/Ipratropium (Duoneb 3 Mg/0.5 Mg (3 Ml) Ud) 3 ml INH RQID [facility] Last Admin: 09/07/18 15:54 Dose: 3 ml Allopurinol (Zyloprim) 600 mg NG DAILY [facility] Last Admin: 09/07/18 12:38 Dose: 600 mg Alprazolam (Xanax) 0.25 mg PO Q12 PRN PRN Reason: Anxiety Stop: 09/11/18 08:42 Apixaban (Eliquis) 5 mg PO BID [facility]; Protocol Last Admin: 09/06/18 17:08 Dose: Not Given Dimethicone (Proshield Plus Skin Protectant) 1 applic TOP Q8 [facility] Last Admin: 09/07/18 19:13 Dose: 1 applic Ferrous Gluconate (Fergon) 324 mg PO TID [facility] Last Admin: 09/07/18 19:13 Dose: 324 mg Furosemide (Lasix) 20 mg PO BID [facility] Last Admin: 09/06/18 17:10 Dose: Not Given Hydromorphone HCl (Dilaudid) 2 mg IVP Q4 PRN PRN Reason: Pain, severe (8-10) Last Admin: 09/06/18 00:17 Dose: 2 mg Sodium Chloride (Sodium Chloride 0.9%) 1,000 mls @ 100 mls/hr IV .Q10H [facility] Last Admin: 09/06/18 06:10 Dose: 100 mls/hr Propofol (Diprivan) 1,000 mg in 100 mls @ 10.097 mls/hr IV .Q9H55M [facility]; Protocol Stop: 09/08/18 02:29 Last Titration: 09/07/18 19:12 Dose: 20 mcg/kg/min, 5.77 mls/hr Norepinephrine Bitartrate 8 mg (/ Dextrose) 258 mls @ 4.84 mls/hr IV .Q24H [facility]; Protocol Stop: 09/08/18 04:15 Last Titration: 09/07/18 16:15 Dose: 12.5 mcg/min, 24.19 mls/hr Piperacillin Sod/Tazobactam (Sod 2.25 gm/ Sodium Chloride) 100 mls @ 100 mls/hr IVPB Q6 [facility]; Protocol Last Admin: 09/07/18 19:14 Dose: 100 mls/hr Metoprolol Tartrate (Lopressor) 12.5 mg PO Q12 [facility] Last Admin: 09/06/18 21:59 Dose: Not Given Multivitamins/Minerals (Therapeutic-M Tab) 1 tab PO DAILY [facility] Last Admin: 09/07/18 09:18 Dose: 1 tab Sodium Bicarbonate (Sodium Bicarbonate Tab) 650 mg PO BID [facility] Last Admin: 09/07/18 19:13 Dose: 650 mg - Labs Labs: 09/07/18 04:35 09/07/18 04:35 PT 17.8 Seconds (9.8-13.1) H 09/03/18 19:08 INR 1.6 09/03/18 19:08 APTT 28.6 Seconds (25.6-37.1) 09/03/18 19:08 - Head Exam Head Exam: ATRAUMATIC - Eye Exam Eye Exam: Normal appearance - ENT Exam ENT Exam: Mucous Membranes Dry - Respiratory Exam Respiratory Exam: NORMAL BREATHING PATTERN - Cardiovascular Exam Cardiovascular Exam: +S1, +S2 - GI/Abdominal Exam GI & Abdominal Exam: Normal Bowel Sounds Assessment and Plan (1) Tumor lysis syndrome Assessment & Plan: IV fluids and allopurinol Status: Acute (2) Thrombocytopenia Assessment & Plan: secondary to chemotherapy repeat coags and fibrinogen ?DIC Status: Acute (3) Anemia Assessment & Plan: recent chemotherapy hematuria, blood at ET tube transfusion support PRN anticoagulation on hold Status: Acute (4) Pulmonary embolism Assessment & Plan: with DVT provoked from malignancy anticoagulation on hold for bleeding Status: Acute (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
[2018-09-07] MEDS: Sodium Chloride 0.9% 1,000 ML IV SCH (20:36)
[2018-09-08] MEDS: Propofol 10 mg/ml 1,000 MG/100 ML VIAL IV SCH
[2018-09-08] MEDS: Proshield Plus GEL TOP SCH ×2 (00:16→08:53)
--- NOTE | 2018-09-08 01:19 | CP.PCM.PN ---
Subjective - Date & Time of Evaluation Date of Evaluation: 09/06/18 Time of Evaluation: 07:10 - Subjective Subjective: Seen and examined at the bed side. Patient Continue to bleed per Vaginal and Hemturia. Patient has been intubated for 3 Days. D/w the family in detail about the Poor prognosis associated with the patient's multiple Critical conditions: Objective - Vital Signs/Intake and Output Vital Signs (last 24 hours): Temp Pulse Resp BP Pulse Ox 102.1 F H 120 H 17 94/50 L 100 09/07/18 16:00 09/07/18 18:00 09/07/18 18:00 09/07/18 18:00 09/07/18 18:00 Intake and Output: 09/07/18 09/08/18 18:59 06:59 Intake Total 3416 200.64 Output Total 537 Balance 2879 200.64 - Medications Medications: Current Medications Albuterol/Ipratropium (Duoneb 3 Mg/0.5 Mg (3 Ml) Ud) 3 ml INH RQID [facility] Last Admin: 09/07/18 20:40 Dose: 3 ml Allopurinol (Zyloprim) 600 mg NG DAILY [facility] Last Admin: 09/07/18 12:38 Dose: 600 mg Alprazolam (Xanax) 0.25 mg PO Q12 PRN PRN Reason: Anxiety Stop: 09/11/18 08:42 Apixaban (Eliquis) 5 mg PO BID [facility]; Protocol Last Admin: 09/06/18 17:08 Dose: Not Given Dimethicone (Proshield Plus Skin Protectant) 1 applic TOP Q8 [facility] Last Admin: 09/08/18 00:16 Dose: 1 applic Ferrous Gluconate (Fergon) 324 mg PO TID [facility] Last Admin: 09/07/18 19:13 Dose: 324 mg Furosemide (Lasix) 20 mg PO BID [facility] Last Admin: 09/06/18 17:10 Dose: Not Given Hydromorphone HCl (Dilaudid) 2 mg IVP Q4 PRN PRN Reason: Pain, severe (8-10) Last Admin: 09/06/18 00:17 Dose: 2 mg Sodium Chloride (Sodium Chloride 0.9%) 1,000 mls @ 100 mls/hr IV .Q10H [facility] Last Admin: 09/07/18 20:36 Dose: 100 mls/hr Propofol (Diprivan) 1,000 mg in 100 mls @ 10.097 mls/hr IV .Q9H55M [facility]; Protocol Stop: 09/08/18 02:29 Last Admin: 09/08/18 00:00 Dose: 20 mcg/kg/min, 5.77 mls/hr Piperacillin Sod/Tazobactam (Sod 2.25 gm/ Sodium Chloride) 100 mls @ 100 mls/hr IVPB Q6 [facility]; Protocol Last Admin: 09/08/18 00:00 Dose: 100 mls/hr Norepinephrine Bitartrate 8 mg (/ Dextrose) 258 mls @ 27.09 mls/hr IV .Q9H32M [facility]; Protocol Stop: 09/08/18 06:11 Last Titration: 09/08/18 00:00 Dose: 21.5 mcg/min, 41.6 mls/hr Metoprolol Tartrate (Lopressor) 12.5 mg PO Q12 [facility] Last Admin: 09/06/18 21:59 Dose: Not Given Multivitamins/Minerals (Therapeutic-M Tab) 1 tab PO DAILY [facility] Last Admin: 09/07/18 09:18 Dose: 1 tab Sodium Bicarbonate (Sodium Bicarbonate Tab) 650 mg PO BID [facility] Last Admin: 09/07/18 19:13 Dose: 650 mg - Labs Labs: 09/07/18 04:35 09/07/18 04:35 PT 17.8 Seconds (9.8-13.1) H 09/03/18 19:08 INR 1.6 09/03/18 19:08 APTT 28.6 Seconds (25.6-37.1) 09/03/18 19:08 Assessment and Plan (1) Acute respiratory failure with hypoxemia Status: Acute (2) Ascites, malignant Status: Acute (3) Breast CA Status: Acute (4) Coagulopathy Status: Acute (5) Congestive heart failure (CHF) Status: Acute (6) Dyspnea Status: Acute (7) Septic shock Status: Acute
--- NOTE | 2018-09-08 01:20 | CP.PCM.PN ---
Subjective - Date & Time of Evaluation Date of Evaluation: 09/07/18 Time of Evaluation: 15:10 - Subjective Subjective: Seen and examined at the bed side. Patient Continue to bleed per Vaginal and Hemturia. Patient has been intubated for 4 Days. D/w the family in detail about the Poor prognosis associated with the patient's multiple Critical conditions: Objective - Vital Signs/Intake and Output Vital Signs (last 24 hours): Temp Pulse Resp BP Pulse Ox 102.1 F H 120 H 17 94/50 L 100 09/07/18 16:00 09/07/18 18:00 09/07/18 18:00 09/07/18 18:00 09/07/18 18:00 Intake and Output: 09/07/18 09/08/18 18:59 06:59 Intake Total 3416 200.64 Output Total 537 Balance 2879 200.64 - Medications Medications: Current Medications Albuterol/Ipratropium (Duoneb 3 Mg/0.5 Mg (3 Ml) Ud) 3 ml INH RQID [facility] Last Admin: 09/07/18 20:40 Dose: 3 ml Allopurinol (Zyloprim) 600 mg NG DAILY [facility] Last Admin: 09/07/18 12:38 Dose: 600 mg Alprazolam (Xanax) 0.25 mg PO Q12 PRN PRN Reason: Anxiety Stop: 09/11/18 08:42 Apixaban (Eliquis) 5 mg PO BID [facility]; Protocol Last Admin: 09/06/18 17:08 Dose: Not Given Dimethicone (Proshield Plus Skin Protectant) 1 applic TOP Q8 [facility] Last Admin: 09/08/18 00:16 Dose: 1 applic Ferrous Gluconate (Fergon) 324 mg PO TID [facility] Last Admin: 09/07/18 19:13 Dose: 324 mg Furosemide (Lasix) 20 mg PO BID [facility] Last Admin: 09/06/18 17:10 Dose: Not Given Hydromorphone HCl (Dilaudid) 2 mg IVP Q4 PRN PRN Reason: Pain, severe (8-10) Last Admin: 09/06/18 00:17 Dose: 2 mg Sodium Chloride (Sodium Chloride 0.9%) 1,000 mls @ 100 mls/hr IV .Q10H [facility] Last Admin: 09/07/18 20:36 Dose: 100 mls/hr Propofol (Diprivan) 1,000 mg in 100 mls @ 10.097 mls/hr IV .Q9H55M [facility]; Protocol Stop: 09/08/18 02:29 Last Admin: 09/08/18 00:00 Dose: 20 mcg/kg/min, 5.77 mls/hr Piperacillin Sod/Tazobactam (Sod 2.25 gm/ Sodium Chloride) 100 mls @ 100 mls/hr IVPB Q6 [facility]; Protocol Last Admin: 09/08/18 00:00 Dose: 100 mls/hr Norepinephrine Bitartrate 8 mg (/ Dextrose) 258 mls @ 27.09 mls/hr IV .Q9H32M [facility]; Protocol Stop: 09/08/18 06:11 Last Titration: 09/08/18 00:00 Dose: 21.5 mcg/min, 41.6 mls/hr Metoprolol Tartrate (Lopressor) 12.5 mg PO Q12 [facility] Last Admin: 09/06/18 21:59 Dose: Not Given Multivitamins/Minerals (Therapeutic-M Tab) 1 tab PO DAILY [facility] Last Admin: 09/07/18 09:18 Dose: 1 tab Sodium Bicarbonate (Sodium Bicarbonate Tab) 650 mg PO BID [facility] Last Admin: 09/07/18 19:13 Dose: 650 mg - Labs Labs: 09/07/18 04:35 09/07/18 04:35 PT 17.8 Seconds (9.8-13.1) H 09/03/18 19:08 INR 1.6 09/03/18 19:08 APTT 28.6 Seconds (25.6-37.1) 09/03/18 19:08 Assessment and Plan (1) Acute respiratory failure with hypoxemia Status: Acute (2) Ascites, malignant Status: Acute (3) Coagulopathy Status: Acute (4) Congestive heart failure (CHF) Status: Acute (5) DIC (disseminated intravascular coagulation) Status: Acute (6) Leukocytosis Status: Acute (7) Multiple organ dysfunction syndrome Status: Acute (8) Pancytopenia Status: Acute (9) DVT of lower extremity, bilateral Status: Chronic (10) Pulmonary embolism on left Status: Chronic
[2018-09-08 05:42] LABS: BASO % 0.3 % (0.0-2.0); LYMPH # 0.6 K/uL (1.0-4.3); LYMPH % 5.4 % (20.0-40.0); MEAN CELL VOLUME 89.6 fl (81.0-99.0); MEAN CORPUSCULAR HEMOGLOBIN 28.4 pg (27.0-31.0); MEAN CORPUSCULAR HGB CONC 31.7 g/dL (33.0-37.0); MONO # 0.2 K/uL (0.0-0.8); MONO % 1.5 % (0.0-10.0); NEUT # 10.5 K/uL (1.8-7.0); NEUT % 92.8 % (50.0-75.0); RBC 2.25 Mil/uL (3.80-5.20); RED CELL DISTRIBUTION WIDTH 18.4 % (11.5-14.5); WHITE BLOOD COUNT 11.4 K/uL (4.8-10.8)
[2018-09-08 05:44] LABS: ABG ALLEN TEST YES; ARTERIAL BLOOD GAS HCO3 23.6 mmol/L (21-28); ARTERIAL BLOOD GAS HEMOGLOBIN 6.7 g/dL (11.7-17.4); ARTERIAL BLOOD GAS O2 CAPACITY 9.6 mL/dL (16-24); ARTERIAL BLOOD GAS O2 CONTENT 9.5 ML/dL (15-23); ARTERIAL BLOOD GAS O2 SAT 98.9 % (95-98); ARTERIAL BLOOD GAS PCO2 43 mm/Hg (35-45); ARTERIAL BLOOD GAS PH 7.35 (7.35-7.45); ARTERIAL BLOOD GAS PO2 148 mm/Hg (80-100)
[2018-09-08 05:47] LABS: INR 1.3; PROTHROMBIN TIME 14.2 Seconds (9.8-13.1)
[2018-09-08 05:48] LABS: HEMOGLOBIN 6.4 g/dL (12.0-16.0)
[2018-09-08 05:49] LABS: PLATELET COUNT 21 K/uL (130-400)
[2018-09-08 05:50] LABS: PARTIAL THROMBOPLASTIN TIME 25.8 Seconds (25.6-37.1)
[2018-09-08 06:02] LABS: ALB/GLOB RATIO 0.8 (1.0-2.1); ALBUMIN 2.2 g/dL (3.5-5.0); CALCIUM 6.9 mg/dL (8.4-10.2); URIC ACID 8.7 mg/Dl (2.2-7.5)
[2018-09-08] MEDS: Albuterol-Ipratrop 3 mg / 0.5 (3 ml) UD INH SCH ×4 (07:18→19:02)
[2018-09-08] MEDS: Multivitamin With Minerals Tab PO SCH (08:53)
[2018-09-08 09:08] LABS: LYMPHOCYTE 5 % (20-50); NEUTROPHIL 95 % (42-75); TOTAL CELLS COUNTED 100
[2018-09-08 09:09] LABS: ANISOCYTOSIS SLIGHT; HYPERSEGMENTATION PRESENT; PLATELET ESTIMATE DECREASED (NORMAL)
[2018-09-08 09:11] LABS: HYPOCHROMIC SLIGHT; POIKILOCYTOSIS SLIGHT
[2018-09-08 09:12] LABS: OVALOCYTES SLIGHT; TEARDROP CELLS SLIGHT
--- NOTE | 2018-09-08 11:49 | RAD ---
Date of service: 09/08/2018 HISTORY: patient intubated COMPARISON: 09/07/2018 FINDINGS: LUNGS: Left perihilar and basilar opacity. Right basilar opacity is not evident on this examination. PLEURA: No pleural effusion or pneumothorax. CARDIOVASCULAR: No aortic atherosclerotic calcification present. Normal cardiac size. ET tube, NG tube and left central venous infusion port are unchanged. OSSEOUS STRUCTURES: No significant abnormalities. VISUALIZED UPPER ABDOMEN: Normal. OTHER FINDINGS: None. IMPRESSION: Left perihilar and basilar opacity. Right-sided opacity has resolved. Lines and tubes unchanged
--- NOTE | 2018-09-08 15:00 | CP.CCUPN ---
CCU Subjective - Physician Review Subjective (Free Text): Remains sedated on MV, on a lower Propofol dose at 15 mcg, RASS is at neg 3, breathing 18 on AC 16, TV 400ml, 50% PEEP 5. Remains on Levophed at 14 mcg dose, NSS at 100ml/hr, tolerating OGT feeds at 35 ml/hr. Afebrile, + temp max last 24H to 102.9F, SBPs 90s 110s with MAPS 70-80, HR 115, 18, 100% SPO2. Approx 4.0 liter positive fluid balance. NSS at 100ml/hr. No other distress noted. ROS: No other pertinent negs or positive on 10+ system review obtainable due to sedation. Other PMSFH: All other Nursing and physician documentation reviewed to date; no new pertinent info noted relevant to current medical problems. EXAM- HEENT: no icterus, pupils equal, 3 mm and reactive, no gaze preference NECK: no visible JVD, supple, carotids equal upstroke bilat/no bruits CHEST: decreased BS bases, no wheezes audible, bloody fluid drained dressing over R breast. Left chest portacath. HEART: regular, distant, tachy S1S2, no murmur audible, no rubs. ABD: soft, no increased distention, no focal tenderness, BS hypoactive, dried necrotic lesion over umbilicus unchanged. Serous fluid draining from RUQ old paracentesis site. EXT: ++ edema LEs, +ulcer posterior R calf worse than L, no calf tenderness or palpable cords, distal pulses intact and symmetrical NEURO: withdraws to pain stimuli, + tone SKIN: no rashes LABS: WBC= 11.4 HGB= 6.4 PLTs = 21K 7.35/43/148 Na= 138 K= 4.7 Cl= 103 HCO3= 23 BUN/Cr= 74/2.0 BS= 165 CXR: (my interp)- ETT position OK above loren. Diffuse infiltrates over R lung, more so than left lung persist, overall- no new changes. IMPRESSION / MAJOR PROBLEMS NOW: 1. Acute hypoxemic Resp Failure, 2 bilat multi-lobar pneumonia 2. Tumor Lysis Syndrome 3. Severe Sepsis with shock, 2 Pneumonia, r/o bacteremia 4. Acute on Chronic disease Anemia 5. h/o DVT- bilat CFV on Feb 5. 6. s/p Paracentesis Aug 5 for 2.5 liters PLAN: 1. Sputum Cx from Sep 07 still pending, on empiric abx coverage with Vanco / Zosyn. 2. Eliquis held (Bloody oral secretions and bloody urine, vaginal bleeding, unstable Hgb). Needs more PRBCs today. 3. Started Allopurinol, keep hydrated. Consider adding phosphate binder therapy. 4. Taper Levophed quickly if BP tolerates. Watch renal function, may be developing ATN, consider Nephro eval. 5. Consider CT chest to evaluate interstitial opacities further. 6. Full resuscitative measures as per Family. Time spent with this patient did not overlap with any other provider's medical or critical care time. Additionally the code selected for the services rendered in this note includes the time spent: talking to the patients family, associated physicians and reviewing hospital data/results not listed here which extended to a total of 30 minutes of critical care.
--- NOTE | 2018-09-08 16:19 | CP.PCM.CON ---
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 She also has h/o DVT . 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 on last admission 08/29/2017 she was found to have significant abdominal ascites and s/p paracenthesis and was on empiric abx since she was immune compromised . She completed 3 days of empiric zosyn and vanco ( very high wbc most likely from her malignancy) pt. was however, d/c as per oncologist and pt's wishes so that she could get her first chemo dose and she was re-admitted after that 09/03/2018 secondary to sob and weakness. MERCHANDISE SHOPPER was called and she was found to be hypoxemic and was transferred to ICU and was intubated and remains on the vent since. I'm now asked to see the patient to help with antibiotic management since she is febrile and has some infiltrates on CXR as well. pt. sedated and on the vent and only opens eyes with painful stimuli. 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 Review of Systems - Review of Systems Review of Systems: ROS- unable to obtain as pt. is sedated and intubated. Past Patient History - Infectious Disease Hx of Infectious Diseases: None - Past Medical History & Family History Past Medical History?: Yes Past Family History: Reviewed and not pertinent - Past Social History Smoking Status: Former Smoker Alcohol: None Drugs: Denies - CARDIAC Hx Congestive Heart Failure: Yes Hx Peripheral Edema: Yes - PULMONARY Hx Asthma: No Hx Pulmonary Embolism: Yes - NEUROLOGICAL Hx Neurological Disorder: No - HEENT Hx HEENT Problems: No - RENAL Hx Chronic Kidney Disease: No - ENDOCRINE/METABOLIC Hx Endocrine Disorders: No - HEMATOLOGICAL/ONCOLOGICAL Hx Anemia: Yes - INTEGUMENTARY Hx Dermatological Problems: No - MUSCULOSKELETAL/RHEUMATOLOGICAL Hx Arthritis: No - GASTROINTESTINAL Hx Gastrointestinal Disorders: No - GENITOURINARY/GYNECOLOGICAL Hx Genitourinary Disorders: No - PSYCHIATRIC Hx Anxiety: Yes - SURGICAL HISTORY Hx Surgeries: Yes Hx Section: Yes Other/Comment: right breast bx - ANESTHESIA Hx Anesthesia: Yes Hx Anesthesia Reactions: No Hx Malignant Hyperthermia: No Meds Allergies/Adverse Reactions: Allergies Allergy/AdvReac Type Severity Reaction Status Date / Time acetaminophen [From Tylenol] AdvReac Unknown SHORTNESS Verified 08/29/18 08:11 OF BREATH - Medications Medications: Current Medications Albuterol/Ipratropium (Duoneb 3 Mg/0.5 Mg (3 Ml) Ud) 3 ml INH RQID [facility] Last Admin: 09/08/18 15:29 Dose: 3 ml Allopurinol (Zyloprim) 600 mg NG DAILY [facility] Last Admin: 09/08/18 08:55 Dose: 600 mg Alprazolam (Xanax) 0.25 mg PO Q12 PRN PRN Reason: Anxiety Stop: 09/11/18 08:42 Apixaban (Eliquis) 5 mg PO BID [facility]; Protocol Last Admin: 09/06/18 17:08 Dose: Not Given Dimethicone (Proshield Plus Skin Protectant) 1 applic TOP Q8 [facility] Last Admin: 09/08/18 08:53 Dose: 1 applic Ferrous Gluconate (Fergon) 324 mg PO TID [facility] Last Admin: 09/08/18 12:55 Dose: 324 mg Furosemide (Lasix) 20 mg PO BID [facility] Last Admin: 09/06/18 17:10 Dose: Not Given Sodium Chloride (Sodium Chloride 0.9%) 1,000 mls @ 100 mls/hr IV .Q10H [facility] Last Admin: 09/07/18 20:36 Dose: 100 mls/hr Piperacillin Sod/Tazobactam (Sod 2.25 gm/ Sodium Chloride) 100 mls @ 100 mls/hr IVPB Q6 [facility]; Protocol Last Admin: 09/08/18 09:26 Dose: 100 mls/hr Metoprolol Tartrate (Lopressor) 12.5 mg PO Q12 [facility] Last Admin: 09/06/18 21:59 Dose: Not Given Multivitamins/Minerals (Therapeutic-M Tab) 1 tab PO DAILY [facility] Last Admin: 09/08/18 08:53 Dose: 1 tab Sodium Bicarbonate (Sodium Bicarbonate Tab) 650 mg PO BID [facility] Last Admin: 09/08/18 08:53 Dose: 650 mg Physical Exam - Constitutional Appears: Chronically Ill Additional comments: intubated and sedated - Eye Exam Eye Exam: PERRL - ENT Exam Additional comments: ET and OGT in place - Neck Exam Additional comments: supple - Respiratory Exam Additional comments: decreased breath sounds at basea On the vent - Cardiovascular Exam Cardiovascular Exam: Tachycardia, +S1, +S2 - GI/Abdominal Exam Additional comments: distended hypoactive BS umbilical region with mass like lesion with denuded skin , no pus, bloody disc harge scant only - Extremities Exam Additional comments: b/l 1+ edema right posterior calf with multiple erythematous papules like lesion ( could be mets to the skin) - Neurological Exam Additional comments: sedated - Skin Additional comments: right breast entirely covered with fungating looking round erythematous lesions few have opened up and bleeding superfically - Additional Findings Additional findings: lines- ET and OG tube left chest mediport hardwick cath- draining bloody urine b/l hand peripheral IVL Results - Vital Signs Recent Vital Signs: Last Vital Signs Temp 99.0 F 09/08/18 12:00 Pulse 119 H 09/08/18 12:00 Resp 17 09/08/18 12:00 BP 111/66 09/08/18 12:00 Pulse Ox 100 09/08/18 12:00 - Labs Result Diagrams: 09/08/18 04:25 09/08/18 04:25 Labs: Laboratory Results - last 24 hr 09/06/18 09/08/18 09/08/18 16:27 04:25 04:25 WBC 11.4 H RBC 2.25 L Hgb 6.4 L* D Hct 20.2 L MCV 89.6 MCH 28.4 MCHC 31.7 L RDW 18.4 H Plt Count 21 L* D MPV 9.0 Neut % (Auto) 92.8 H Lymph % (Auto) 5.4 L [place] % (Auto) 1.5 Eos % (Auto) 0.0 Baso % (Auto) 0.3 Neut # (Auto) 10.5 H Lymph # (Auto) 0.6 L [place] # (Auto) 0.2 Eos # (Auto) 0.0 Baso # (Auto) 0.0 Neutrophils % (Manual) 95 H Lymphocytes % (Manual) 5 L Monocytes % (Manual) TEST NOT PERFORMED Hypersegmented Polys Present Platelet Estimate Decreased L Hypochromasia (manual) Slight Poikilocytosis (manual Slight Anisocytosis (manual) Slight Tear Drop Cells Slight Ovalocytes Slight PT INR APTT Fibrinogen pCO2 pO2 HCO3 ABG pH ABG Total CO2 ABG O2 Saturation ABG O2 Content ABG Base Excess ABG Hemoglobin ABG Carboxyhemoglobin POC ABG HHb (Measured) ABG Methemoglobin ABG O2 Capacity Frederic Test A-a O2 Difference Hgb O2 Saturation Vent Mode Mechanical Rate FiO2 Tidal Volume PEEP Sodium 138 Potassium 4.7 Chloride 103 Carbon Dioxide 23 Anion Gap 17 BUN 74 H Creatinine 2.0 H Est GFR ( Amer) 31 Est GFR (Non-Af Amer) 25 Random Glucose 165 H Uric Acid 8.7 H Calcium 6.9 L Phosphorus 7.1 H Magnesium 2.6 H Total Bilirubin 0.5 AST 28 ALT 18 Alkaline Phosphatase 72 Total Protein 4.7 L Albumin 2.2 L Globulin 2.6 Albumin/Globulin Ratio 0.8 L Vancomycin Trough Blood Type A POSITIVE Antibody Screen Negative Crossmatch See Detail BBK History Checked Patient has bt 09/08/18 09/08/18 09/08/18 04:25 04:25 05:03 WBC RBC Hgb Hct MCV MCH MCHC RDW Plt Count MPV Neut % (Auto) Lymph % (Auto) [place] % (Auto) Eos % (Auto) Baso % (Auto) Neut # (Auto) Lymph # (Auto) [place] # (Auto) Eos # (Auto) Baso # (Auto) Neutrophils % (Manual) Lymphocytes % (Manual) Monocytes % (Manual) Hypersegmented Polys Platelet Estimate Hypochromasia (manual) Poikilocytosis (manual Anisocytosis (manual) Tear Drop Cells Ovalocytes PT 14.2 H INR 1.3 APTT 25.8 Fibrinogen 316 pCO2 43 pO2 148 H HCO3 23.6 ABG pH 7.35 ABG Total CO2 25.0 ABG O2 Saturation 98.9 H ABG O2 Content 9.5 L ABG Base Excess -1.8 ABG Hemoglobin 6.7 L ABG Carboxyhemoglobin 0.7 POC ABG HHb (Measured) 1.1 ABG Methemoglobin 1.5 ABG O2 Capacity 9.6 L Frederic Test Yes A-a O2 Difference 155.0 Hgb O2 Saturation 96.7 Vent Mode A/c Mechanical Rate 16 FiO2 50.0 Tidal Volume 400 PEEP 5 Sodium Potassium Chloride Carbon Dioxide Anion Gap BUN Creatinine Est GFR ( Amer) Est GFR (Non-Af Amer) Random Glucose Uric Acid Calcium Phosphorus Magnesium Total Bilirubin AST ALT Alkaline Phosphatase Total Protein Albumin Globulin Albumin/Globulin Ratio Vancomycin Trough 10.9 H Blood Type Antibody Screen Crossmatch BBK History Checked Laboratory Results - last 72 hr 09/03/18 09/06/18 09/06/18 20:13 04:45 04:45 WBC 14.5 H RBC 2.62 L Hgb 7.2 L Hct 22.8 L MCV 87.0 MCH 27.6 MCHC 31.8 L RDW 21.8 H Plt Count 79 L D MPV Neut % (Auto) Lymph % (Auto) [place] % (Auto) Eos % (Auto) Baso % (Auto) Neut # (Auto) Lymph # (Auto) [place] # (Auto) Eos # (Auto) Baso # (Auto) Neutrophils % (Manual) Band Neutrophils % Lymphocytes % (Manual) Monocytes % (Manual) Metamyelocytes % Myelocytes % Hypersegmented Polys Toxic Granulation Platelet Estimate Hypochromasia (manual) Poikilocytosis (manual Anisocytosis (manual) Tear Drop Cells Ovalocytes PT INR APTT Fibrinogen pCO2 pO2 HCO3 ABG pH ABG Total CO2 ABG O2 Saturation ABG O2 Content ABG Base Excess ABG Hemoglobin ABG Carboxyhemoglobin POC ABG HHb (Measured) ABG Methemoglobin ABG O2 Capacity Frederic Test A-a O2 Difference Hgb O2 Saturation Vent Mode Mechanical Rate FiO2 Tidal Volume PEEP Sodium 136 Potassium 3.6 Chloride 95 L Carbon Dioxide 30 Anion Gap 15 BUN 41 H Creatinine 1.4 H Est GFR ( Amer) 46 Est GFR (Non-Af Amer) 38 Random Glucose 126 H Uric Acid Calcium 7.4 L Phosphorus Magnesium Total Bilirubin AST ALT Alkaline Phosphatase Total Protein Albumin Globulin Albumin/Globulin Ratio Vancomycin Trough Blood Type Antibody Screen Crossmatch See Detail BBK History Checked 09/06/18 09/06/18 09/07/18 05:06 16:27 04:35 WBC 10.4 RBC 2.71 L Hgb 9.6 L D Hct 24.3 L MCV 89.6 D MCH 35.3 H MCHC 39.4 H RDW 18.5 H Plt Count 71 L MPV 10.5 Neut % (Auto) 95.2 H Lymph % (Auto) 3.7 L [place] % (Auto) 0.6 Eos % (Auto) 0.1 Baso % (Auto) 0.4 Neut # (Auto) 9.9 H Lymph # (Auto) 0.4 L [place] # (Auto) 0.1 Eos # (Auto) 0.0 Baso # (Auto) 0.0 Neutrophils % (Manual) 89 H Band Neutrophils % 3 H Lymphocytes % (Manual) 5 L Monocytes % (Manual) 1 Metamyelocytes % 1 H Myelocytes % 1 H Hypersegmented Polys Toxic Granulation Present Platelet Estimate Decreased L Hypochromasia (manual) Moderate Poikilocytosis (manual Anisocytosis (manual) Slight Tear Drop Cells Slight Ovalocytes PT INR APTT Fibrinogen pCO2 49 H pO2 153 H HCO3 29.5 H ABG pH 7.41 ABG Total CO2 32.6 H ABG O2 Saturation 99.4 H ABG O2 Content 10.1 L ABG Base Excess 5.8 H ABG Hemoglobin 7.2 L ABG Carboxyhemoglobin 1.1 POC ABG HHb (Measured) 0.6 ABG Methemoglobin 1.7 ABG O2 Capacity 10.2 L Frederic Test Yes A-a O2 Difference 142.0 Hgb O2 Saturation 96.6 Vent Mode A/c Mechanical Rate 16 FiO2 50.0 Tidal Volume 400 PEEP 5 Sodium Potassium Chloride Carbon Dioxide Anion Gap BUN Creatinine Est GFR ( Amer) Est GFR (Non-Af Amer) Random Glucose Uric Acid Calcium Phosphorus Magnesium Total Bilirubin AST ALT Alkaline Phosphatase Total Protein Albumin Globulin Albumin/Globulin Ratio Vancomycin Trough Blood Type A POSITIVE Antibody Screen Negative Crossmatch See Detail BBK History Checked Patient has bt 09/07/18 09/07/18 09/07/18 04:35 05:22 10:00 WBC RBC Hgb Hct MCV MCH MCHC RDW Plt Count MPV Neut % (Auto) Lymph % (Auto) [place] % (Auto) Eos % (Auto) Baso % (Auto) Neut # (Auto) Lymph # (Auto) [place] # (Auto) Eos # (Auto) Baso # (Auto) Neutrophils % (Manual) Band Neutrophils % Lymphocytes % (Manual) Monocytes % (Manual) Metamyelocytes % Myelocytes % Hypersegmented Polys Toxic Granulation Platelet Estimate Hypochromasia (manual) Poikilocytosis (manual Anisocytosis (manual) Tear Drop Cells Ovalocytes PT INR APTT Fibrinogen pCO2 45 pO2 154 H HCO3 25.3 ABG pH 7.37 ABG Total CO2 27.4 ABG O2 Saturation 100.0 H ABG O2 Content 11.8 L ABG Base Excess 0.5 ABG Hemoglobin 8.5 L ABG Carboxyhemoglobin 1.4 POC ABG HHb (Measured) 0.0 ABG Methemoglobin 2.4 ABG O2 Capacity 11.8 L Frederic Test Yes A-a O2 Difference 146.0 Hgb O2 Saturation 96.2 Vent Mode A/c Mechanical Rate 16 FiO2 50.0 Tidal Volume 400 PEEP 5 Sodium 135 Potassium 6.0 H Chloride 98 Carbon Dioxide 23 Anion Gap 20 BUN 64 H Creatinine 1.8 H Est GFR ( Amer) 35 Est GFR (Non-Af Amer) 29 Random Glucose 131 H Uric Acid 10.7 H Calcium 6.9 L Phosphorus 6.6 H Magnesium 2.6 H Total Bilirubin AST ALT Alkaline Phosphatase Total Protein Albumin Globulin Albumin/Globulin Ratio Vancomycin Trough Blood Type Antibody Screen Crossmatch BBK History Checked 09/08/18 09/08/18 09/08/18 04:25 04:25 04:25 WBC 11.4 H RBC 2.25 L Hgb 6.4 L* D Hct 20.2 L MCV 89.6 MCH 28.4 MCHC 31.7 L RDW 18.4 H Plt Count 21 L* D MPV 9.0 Neut % (Auto) 92.8 H Lymph % (Auto) 5.4 L [place] % (Auto) 1.5 Eos % (Auto) 0.0 Baso % (Auto) 0.3 Neut # (Auto) 10.5 H Lymph # (Auto) 0.6 L [place] # (Auto) 0.2 Eos # (Auto) 0.0 Baso # (Auto) 0.0 Neutrophils % (Manual) 95 H Band Neutrophils % Lymphocytes % (Manual) 5 L Monocytes % (Manual) TEST NOT PERFORMED Metamyelocytes % Myelocytes % Hypersegmented Polys Present Toxic Granulation Platelet Estimate Decreased L Hypochromasia (manual) Slight Poikilocytosis (manual Slight Anisocytosis (manual) Slight Tear Drop Cells Slight Ovalocytes Slight PT INR APTT Fibrinogen pCO2 pO2 HCO3 ABG pH ABG Total CO2 ABG O2 Saturation ABG O2 Content ABG Base Excess ABG Hemoglobin ABG Carboxyhemoglobin POC ABG HHb (Measured) ABG Methemoglobin ABG O2 Capacity Frederic Test A-a O2 Difference Hgb O2 Saturation Vent Mode Mechanical Rate FiO2 Tidal Volume PEEP Sodium 138 Potassium 4.7 Chloride 103 Carbon Dioxide 23 Anion Gap 17 BUN 74 H Creatinine 2.0 H Est GFR ( Amer) 31 Est GFR (Non-Af Amer) 25 Random Glucose 165 H Uric Acid 8.7 H Calcium 6.9 L Phosphorus 7.1 H Magnesium 2.6 H Total Bilirubin 0.5 AST 28 ALT 18 Alkaline Phosphatase 72 Total Protein 4.7 L Albumin 2.2 L Globulin 2.6 Albumin/Globulin Ratio 0.8 L Vancomycin Trough 10.9 H Blood Type Antibody Screen Crossmatch BBK History Checked 09/08/18 09/08/18 04:25 05:03 WBC RBC Hgb Hct MCV MCH MCHC RDW Plt Count MPV Neut % (Auto) Lymph % (Auto) [place] % (Auto) Eos % (Auto) Baso % (Auto) Neut # (Auto) Lymph # (Auto) [place] # (Auto) Eos # (Auto) Baso # (Auto) Neutrophils % (Manual) Band Neutrophils % Lymphocytes % (Manual) Monocytes % (Manual) Metamyelocytes % Myelocytes % Hypersegmented Polys Toxic Granulation Platelet Estimate Hypochromasia (manual) Poikilocytosis (manual Anisocytosis (manual) Tear Drop Cells Ovalocytes PT 14.2 H INR 1.3 APTT 25.8 Fibrinogen 316 pCO2 43 pO2 148 H HCO3 23.6 ABG pH 7.35 ABG Total CO2 25.0 ABG O2 Saturation 98.9 H ABG O2 Content 9.5 L ABG Base Excess -1.8 ABG Hemoglobin 6.7 L ABG Carboxyhemoglobin 0.7 POC ABG HHb (Measured) 1.1 ABG Methemoglobin 1.5 ABG O2 Capacity 9.6 L Frederic Test Yes A-a O2 Difference 155.0 Hgb O2 Saturation 96.7 Vent Mode A/c Mechanical Rate 16 FiO2 50.0 Tidal Volume 400 PEEP 5 Sodium Potassium Chloride Carbon Dioxide Anion Gap BUN Creatinine Est GFR ( Amer) Est GFR (Non-Af Amer) Random Glucose Uric Acid Calcium Phosphorus Magnesium Total Bilirubin AST ALT Alkaline Phosphatase Total Protein Albumin Globulin Albumin/Globulin Ratio Vancomycin Trough Blood Type Antibody Screen Crossmatch BBK History Checked Microbiology 09/07/18 Unknown Blood-Thru Central Line Blood Culture - Preliminary NO GROWTH AFTER 24 HOURS 09/07/18 Unknown Blood-Thru Central Line Blood Culture - Preliminary NO GROWTH AFTER 24 HOURS 09/07/18 09:07 Trachasp Gram Stain - Final 09/04/18 11:25 Naris MRSA Culture (Admit) - Final MRSA NOT DETECTED Microbiology 08/29/18 12:00 Blood Blood Culture - Final 08/29/18 12:00 Blood Gram Stain - Final NO GROWTH AFTER 5 DAYS TEST NOT PERFORMED 08/29/18 11:32 Blood Blood Culture - Final 08/29/18 11:32 Blood Gram Stain - Final NO GROWTH AFTER 5 DAYS TEST NOT PERFORMED Accession No. : [id number] Patient Name / ID : RYLEE ONEIL / [id number] Exam Date : 09/08/2018 04:19:07 ( Approved ) Study Comment : Sex / Age : F / [id number] Creator : Mario Etienne MD Dictator : Mario Etienne MD Diet Aide : Charge Poster : Mario Etienne MD Approver2 : Report Date : 09/08/2018 11:44:10 My Comment : Date of service: 09/08/2018 HISTORY: patient intubated COMPARISON: 09/07/2018 FINDINGS: LUNGS: Left perihilar and basilar opacity. Right basilar opacity is not evident on this examination. PLEURA: No pleural effusion or pneumothorax. CARDIOVASCULAR: No aortic atherosclerotic calcification present. Normal cardiac size. ET tube, NG tube and left central venous infusion port are unchanged. OSSEOUS STRUCTURES: No significant abnormalities. VISUALIZED UPPER ABDOMEN: Normal. OTHER FINDINGS: None. IMPRESSION: Left perihilar and basilar opacity. Right-sided opacity has resolved. Lines and tubes unchanged Assessment & Plan (1) Acute respiratory failure with hypoxemia Status: Acute Priority: High (2) Anemia Status: Acute Priority: High (3) Breast CA Status: Acute Priority: High (4) Tumor lysis syndrome Status: Acute (5) Thrombocytopenia Status: Acute (6) DVT of lower extremity, bilateral Status: Acute Priority: High (7) Adnexal mass Status: Acute Priority: High - Assessment and Plan (Free Text) Assessment: A/P- 58 year old female with 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 intubated and sedated. low grade fevers. ? infiltrates on CXR report. anemic and thrombocytopenic post chemo. undergoing PRBC transfusions. tumor lysis syndrome as well. blood cx- 09/07/2018- neg x 2 PLan- check blood cx x 2 check UA and urine cx. advise to continue with Iv Vancomycin for empiric staph coverage. advise to d/c zosyn ad start patietn on meropnem for broad spectrum gram negative coverage. check sputum cx from ET tube. all labs and imaging and chart notes reviewed. case d/w patient's son and mother who are at her bedside. D/w and Heel Scorer as well. Thank you for allowing me to take part in the of this patietn. critical care time spent 60 minutes.
[2018-09-08] MEDS: Meropenem 1 GM in Sodium Chloride 0.9% 100 ML IVPB SCH (18:59)
[2018-09-08] MEDS: Sodium Chloride 0.9% 1,000 ML IV SCH (20:25)
[2018-09-09] MEDS: Meropenem 1 GM in Sodium Chloride 0.9% 100 ML IVPB SCH ×3 (02:00→17:25)
[2018-09-09] MEDS: Proshield Plus GEL TOP SCH ×3 (02:00→17:25)
[2018-09-09] MEDS ORDERED: Propofol 10 mg/ml 2,000 MG/200 ML VIAL ONE (05:30)
[2018-09-09] MEDS: Propofol 10 mg/ml 1,000 MG/100 ML VIAL IV SCH ×2 (05:30→21:24)
[2018-09-09 05:39] LABS: ABG ALLEN TEST YES; ARTERIAL BLOOD GAS HEMOGLOBIN 6.9 g/dL (11.7-17.4); ARTERIAL BLOOD GAS O2 CAPACITY 9.9 mL/dL (16-24); ARTERIAL BLOOD GAS O2 CONTENT 9.8 ML/dL (15-23); ARTERIAL BLOOD GAS O2 SAT 98.8 % (95-98); ARTERIAL BLOOD GAS PCO2 38 mm/Hg (35-45); ARTERIAL BLOOD GAS PH 7.42 (7.35-7.45); ARTERIAL BLOOD GAS PO2 144 mm/Hg (80-100); ARTERIAL BLOOD GAS TCO2 25.8 mmol/L (22-28)
[2018-09-09 06:40] LABS: BASO % 0.1 % (0.0-2.0); CALCIUM 7.4 mg/dL (8.4-10.2); EOS % 0.2 % (0.0-4.0); HEMOGLOBIN 6.8 g/dL (12.0-16.0); LYMPH # 0.4 K/uL (1.0-4.3); LYMPH % 7.2 % (20.0-40.0); MEAN CELL VOLUME 90.8 fl (81.0-99.0); MEAN CORPUSCULAR HGB CONC 33.1 g/dL (33.0-37.0); MEAN PLATELET VOLUME 8.7 fl (7.2-11.7); MONO # 0.2 K/uL (0.0-0.8); NEUT # 4.4 K/uL (1.8-7.0); NEUT % 88.5 % (50.0-75.0); RBC 2.25 Mil/uL (3.80-5.20); RED CELL DISTRIBUTION WIDTH 17.4 % (11.5-14.5)
--- NOTE | 2018-09-09 07:06 | CP.PCM.CON ---
History of Present Illness - History of Present Illness History of Present Illness: REASON FOR CONSULT : LOUIE MAINLY PRE RENAL AZOTEMIA WITH BUN 83 AND CREATININ 1.4 PT WAS SEEN IN ICU .. CASE D/W DR RICE WELL WITH ICU NERSES WELL WITH SON AND MOTHER ON THE BES SIDE ALL EMR REVIEWED .. LABS REVIEWED THOGHROUGHLY .. PT WAS SEN AND EXAMINED 58 year old female with a history of stage IV mullerian tract cancer recently initiated chemotherapy on 09/01/18 (carboplatin + paclitaxel), DVT/PE on anticoagulation, presenting with shortness of breath and chest pain, anemia s/p PRBC transfusion, currently intubated. The patient appears to have had worsening respiratory distress post PRBC transfusion. 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 She received her first dose of chemotherapy this past Tuesday and tolerated her infusion well. Past medical, surgical, family, social history cannot be obtained from the patient. Allergies: Acetaminophen per documentation Review of systems cannot be obtained. Past Patient History - Infectious Disease Hx of Infectious Diseases: None - Past Medical History & Family History Past Medical History?: Yes Past Family History: Reviewed and not pertinent - Past Social History Smoking Status: Former Smoker Alcohol: None Drugs: Denies - CARDIAC Hx Congestive Heart Failure: Yes Hx Peripheral Edema: Yes - PULMONARY Hx Asthma: No Hx Pulmonary Embolism: Yes - NEUROLOGICAL Hx Neurological Disorder: No - HEENT Hx HEENT Problems: No - RENAL Hx Chronic Kidney Disease: No - ENDOCRINE/METABOLIC Hx Endocrine Disorders: No - HEMATOLOGICAL/ONCOLOGICAL Hx Anemia: Yes - INTEGUMENTARY Hx Dermatological Problems: No - MUSCULOSKELETAL/RHEUMATOLOGICAL Hx Arthritis: No - GASTROINTESTINAL Hx Gastrointestinal Disorders: No - GENITOURINARY/GYNECOLOGICAL Hx Genitourinary Disorders: No - PSYCHIATRIC Hx Anxiety: Yes - SURGICAL HISTORY Hx Surgeries: Yes Hx Section: Yes Other/Comment: right breast bx - ANESTHESIA Hx Anesthesia: Yes Hx Anesthesia Reactions: No Hx Malignant Hyperthermia: No Meds Allergies/Adverse Reactions: Allergies Allergy/AdvReac Type Severity Reaction Status Date / Time acetaminophen [From Tylenol] AdvReac Unknown SHORTNESS Verified 08/29/18 08:11 OF BREATH - Medications Medications: Current Medications Albuterol/Ipratropium (Duoneb 3 Mg/0.5 Mg (3 Ml) Ud) 3 ml INH RQID [facility] Last Admin: 09/08/18 19:02 Dose: 3 ml Allopurinol (Zyloprim) 600 mg NG DAILY [facility] Last Admin: 09/08/18 08:55 Dose: 600 mg Alprazolam (Xanax) 0.25 mg PO Q12 PRN PRN Reason: Anxiety Stop: 09/11/18 08:42 Apixaban (Eliquis) 5 mg PO BID [facility]; Protocol Last Admin: 09/06/18 17:08 Dose: Not Given Dimethicone (Proshield Plus Skin Protectant) 1 applic TOP Q8 [facility] Last Admin: 09/09/18 02:00 Dose: 1 applic Ferrous Gluconate (Fergon) 324 mg PO TID [facility] Last Admin: 09/08/18 17:23 Dose: 324 mg Furosemide (Lasix) 20 mg PO BID [facility] Last Admin: 09/06/18 17:10 Dose: Not Given Sodium Chloride (Sodium Chloride 0.9%) 1,000 mls @ 100 mls/hr IV .Q10H [facility] Last Admin: 09/08/18 20:25 Dose: 100 mls/hr Meropenem 1 gm/ Sodium (Chloride) 100 mls @ 100 mls/hr IVPB Q8 [facility]; Protocol Last Admin: 09/09/18 02:00 Dose: 100 mls/hr Vancomycin HCl 750 mg/ Sodium (Chloride) 250 mls @ 166.667 mls/hr IVPB Q12 [facility]; Protocol Last Admin: 09/08/18 22:00 Dose: 166.667 mls/hr Propofol (Diprivan) 1,000 mg in 100 mls @ 5.77 mls/hr IV .[id number] [facility]; Protocol Stop: 09/10/18 05:58 Last Admin: 09/09/18 05:30 Dose: 20 mcg/kg/min, 5.77 mls/hr Metoprolol Tartrate (Lopressor) 12.5 mg PO Q12 [facility] Last Admin: 09/06/18 21:59 Dose: Not Given Multivitamins/Minerals (Therapeutic-M Tab) 1 tab PO DAILY [facility] Last Admin: 09/08/18 08:53 Dose: 1 tab Sodium Bicarbonate (Sodium Bicarbonate Tab) 650 mg PO BID [facility] Last Admin: 09/08/18 17:24 Dose: 650 mg Results - Vital Signs Recent Vital Signs: Last Vital Signs Temp 100.9 F H 09/09/18 04:00 Pulse 107 H 09/09/18 06:00 Resp 14 09/09/18 06:00 BP 108/72 09/09/18 06:00 Pulse Ox 100 09/09/18 06:00 - Labs Result Diagrams: 09/09/18 05:30 09/09/18 05:30 Labs: Laboratory Results - last 24 hr 09/06/18 09/08/18 09/09/18 16:27 04:25 05:25 WBC RBC Hgb Hct MCV MCH MCHC RDW Plt Count MPV Neut % (Auto) Lymph % (Auto) Will % (Auto) Eos % (Auto) Baso % (Auto) Neut # (Auto) Lymph # (Auto) Will # (Auto) Eos # (Auto) Baso # (Auto) Neutrophils % (Manual) 95 H Lymphocytes % (Manual) 5 L Monocytes % (Manual) TEST NOT PERFORMED Hypersegmented Polys Present Platelet Estimate Decreased L Hypochromasia (manual) Slight Poikilocytosis (manual Slight Anisocytosis (manual) Slight Tear Drop Cells Slight Ovalocytes Slight pCO2 38 pO2 144 H HCO3 25.0 ABG pH 7.42 ABG Total CO2 25.8 ABG O2 Saturation 98.8 H ABG O2 Content 9.8 L ABG Base Excess 0.1 ABG Hemoglobin 6.9 L ABG Carboxyhemoglobin 0.7 POC ABG HHb (Measured) 1.2 ABG Methemoglobin 1.1 ABG O2 Capacity 9.9 L Frederic Test Yes A-a O2 Difference 165.0 Hgb O2 Saturation 97.0 Vent Mode A/c Mechanical Rate 16 FiO2 50.0 Tidal Volume 400 PEEP 5 Sodium Potassium Chloride Carbon Dioxide Anion Gap BUN Creatinine Est GFR ( Amer) Est GFR (Non-Af Amer) Random Glucose Calcium Blood Type A POSITIVE Antibody Screen Negative Crossmatch See Detail BBK History Checked Patient has bt 09/09/18 09/09/18 05:30 05:30 WBC 5.0 D RBC 2.25 L Hgb 6.8 L Hct 20.4 L MCV 90.8 MCH 30.0 MCHC 33.1 RDW 17.4 H Plt Count 74 L D MPV 8.7 Neut % (Auto) 88.5 H Lymph % (Auto) 7.2 L Will % (Auto) 4.0 Eos % (Auto) 0.2 Baso % (Auto) 0.1 Neut # (Auto) 4.4 Lymph # (Auto) 0.4 L Will # (Auto) 0.2 Eos # (Auto) 0.0 Baso # (Auto) 0.0 Neutrophils % (Manual) Lymphocytes % (Manual) Monocytes % (Manual) Hypersegmented Polys Platelet Estimate Hypochromasia (manual) Poikilocytosis (manual Anisocytosis (manual) Tear Drop Cells Ovalocytes pCO2 pO2 HCO3 ABG pH ABG Total CO2 ABG O2 Saturation ABG O2 Content ABG Base Excess ABG Hemoglobin ABG Carboxyhemoglobin POC ABG HHb (Measured) ABG Methemoglobin ABG O2 Capacity Frederic Test A-a O2 Difference Hgb O2 Saturation Vent Mode Mechanical Rate FiO2 Tidal Volume PEEP Sodium 139 Potassium 4.4 Chloride 103 Carbon Dioxide 23 Anion Gap 17 BUN 82 H Creatinine 1.4 H Est GFR ( Amer) 46 Est GFR (Non-Af Amer) 38 Random Glucose 119 H Calcium 7.4 L Blood Type Antibody Screen Crossmatch BBK History Checked Assessment & Plan - Assessment and Plan (Free Text) Assessment: LOUIE MAINLY PRE RENAL AZOTEMIA .. R/O ATN BREAST CA WITH METS CHF WITH EF AROUND 20 - 25 % BLEEDING FROM MULTIPLE SOURCES VDRF SEPSIS P : C/O CURRENT FLIUD RECUSSITATION C/O TRANSFUSION NEEDED C/O PRESENT MANAGEMENT WILL KEEP CLOSE EYE ON PT D/W DR RICE - Date & Time Date: 09/08/18 Time: 15:00
[2018-09-09] MEDS: Albuterol-Ipratrop 3 mg / 0.5 (3 ml) UD INH SCH ×4 (08:16→19:25)
--- NOTE | 2018-09-09 08:29 | CP.CCUPN ---
CCU Subjective - Physician Review Events Since Last Encounter (Free Text): Patient on ventilator, on PRVC, TV 400, RR 16, FIO2 50%, sedated no response to verbal stimuli, no fever, on OG tube feeding, on levophed, events reviewed CCU Objective - Vital Signs / Intake & Output Vital Signs (Last 4 hours): Vital Signs Temp Pulse Resp BP Pulse Ox 09/09/18 08:00 98.2 F 102 H 15 96/66 L 100 09/09/18 07:00 110 H 19 99/57 L 100 09/09/18 06:00 107 H 14 108/72 100 09/09/18 05:00 116 H 21 106/64 99 Intake and Output (Last 8hrs): Intake & Output 09/08/18 09/09/18 09/09/18 22:59 06:59 14:59 Intake Total 1947 1294 Output Total 500 750 Balance 1447 544 Intake: IV 767 264 Intake, Piggyback 250 100 Tube Feeding 525 280 Blood Product 305 550 Apheresis Plts Acda Lr 0 334 2nd Con Unit [id number] Apheresis Plts Acda Lr 216 3rd Con Unit [id number] Red Blood Cells Cpd As1 305 Lr Unit [id number] Free Water Flush 100 100 Output: Urine 500 750 Urethral (Orellana) 500 750 Other: # Bowel Movements 1 - Physical Exam Head: Positive for: Atraumatic, Normocephalic Pupils: Positive for: PERRL Conjunctiva: Positive for: Normal. Negative for: Injected, Icteric Ears: Positive for: Normal Mouth: Positive for: Moist Mucous Membranes Nose (Internal): Positive for: Normal Inspection Neck: Positive for: Normal Range of Motion, Trachea Midline. Negative for: Meningeal Signs, MIDLINE TENDERNESS, Paraspinal Tenderness, JVD, Lymphadenopathy, Bruit, Other Respiratory/Chest: Positive for: Good Air Exchange, Rales, Retracting, Rhonchi. Negative for: Respiratory Distress, Accessory Muscle Use, Wheezes, Tachypneic Cardiovascular: Positive for: Regular Rate and Rhythm, Normal S1, S2, Peripheal Pulses Present. Negative for: Murmurs, Irregular Rhythm, Tachycardic, Bradycardic Abdomen: Positive for: Distention, Normal Bowel Sounds. Negative for: Tenderness Breast/Axillary: Positive for: Other (fungating necrotic mass to Right Breast) Upper Extremity: Positive for: Edema, NORMAL PULSES. Negative for: Normal Inspection, Cyanosis Lower Extremity: Positive for: Edema, NORMAL PULSES. Negative for: Normal Inspection Psychiatric: Positive for: Other (Sedated and orally intubated). Negative for: Alert, Oriented x 3 - Medications Active Medications: Active Medications Generic Name Dose Route Start Last Admin Trade Name Freq PRN Reason Stop Dose Admin Albuterol/Ipratropium 3 ml 09/04/18 12:00 09/09/18 08:16 Duoneb 3 Mg/0.5 Mg (3 Ml) Ud INH 3 ml RQID [facility] Administration Allopurinol 600 mg 09/07/18 11:30 09/08/18 08:55 Zyloprim NG 600 mg DAILY [facility] Administration Alprazolam 0.25 mg 09/04/18 08:41 Xanax PO 09/11/18 08:42 Q12 PRN Anxiety Apixaban 5 mg 09/04/18 09:00 09/06/18 17:08 Eliquis PO Not Given BID [facility] Protocol Dimethicone 1 applic 09/06/18 17:00 09/09/18 02:00 Proshield Plus Skin Protectant TOP 1 applic Q8 [facility] Administration Ferrous Gluconate 324 mg 09/04/18 09:00 09/08/18 17:23 Fergon PO 324 mg TID [facility] Administration Furosemide 20 mg 09/04/18 09:00 09/06/18 17:10 Lasix PO Not Given BID [facility] Sodium Chloride 1,000 mls @ 100 mls/hr 09/03/18 23:45 09/08/18 20:25 Sodium Chloride 0.9% IV 100 mls/hr .Q10H [facility] Administration Meropenem 1 gm/ Sodium 100 mls @ 100 mls/hr 09/08/18 17:15 09/09/18 02:00 Chloride IVPB 100 mls/hr Q8 [facility] Administration Protocol Vancomycin HCl 750 mg/ Sodium 250 mls @ 166.667 mls/hr 09/08/18 21:00 09/08/18 22:00 Chloride IVPB 166.667 mls/hr Q12 [facility] Administration Protocol Propofol 1,000 mg in 100 mls @ 5.77 mls/hr 09/09/18 06:00 09/09/18 05:30 Diprivan IV 09/10/18 05:58 20 mcg/kg/min .[id number] [facility] 5.77 mls/hr Administration Protocol 20 MCG/KG/MIN Norepinephrine Bitartrate 8 mg 258 mls @ 4.84 mls/hr 09/09/18 07:56 / Dextrose IV 09/10/18 07:55 .Q24H ONE 2.5 MCG/MIN Metoprolol Tartrate 12.5 mg 09/03/18 23:45 09/06/18 21:59 Lopressor PO Not Given Q12 [facility] Multivitamins/Minerals 1 tab 09/04/18 09:00 09/08/18 08:53 Therapeutic-M Tab PO 1 tab DAILY [facility] Administration Sodium Bicarbonate 650 mg 09/04/18 09:00 09/08/18 17:24 Sodium Bicarbonate Tab PO 650 mg BID [facility] Administration - Patient Studies Lab Studies: Microbiology Studies 09/07/18 Unknown Blood Culture - Preliminary Blood-Thru Central Line NO GROWTH AFTER 24 HOURS 09/07/18 Unknown Blood Culture - Preliminary Blood-Thru Central Line NO GROWTH AFTER 24 HOURS Lab Studies 09/09/18 09/09/18 09/09/18 Range/Units 08:00 05:30 05:30 WBC 5.0 D (4.8-10.8) K/uL RBC 2.25 L (3.80-5.20) Mil/uL Hgb 6.8 L (12.0-16.0) g/dL Hct 20.4 L (34.0-47.0) % MCV 90.8 (81.0-99.0) fl MCH 30.0 (27.0-31.0) pg MCHC 33.1 (33.0-37.0) g/dL RDW 17.4 H (11.5-14.5) % Plt Count 74 L D (130-400) K/uL MPV 8.7 (7.2-11.7) fl Neut % (Auto) 88.5 H (50.0-75.0) % Lymph % (Auto) 7.2 L (20.0-40.0) % [place] % (Auto) 4.0 (0.0-10.0) % Eos % (Auto) 0.2 (0.0-4.0) % Baso % (Auto) 0.1 (0.0-2.0) % Neut # (Auto) 4.4 (1.8-7.0) K/uL Lymph # (Auto) 0.4 L (1.0-4.3) K/uL [place] # (Auto) 0.2 (0.0-0.8) K/uL Eos # (Auto) 0.0 (0.0-0.7) K/uL Baso # (Auto) 0.0 (0.0-0.2) K/uL Neutrophils % (Manual) (42-75) % Lymphocytes % (Manual) (20-50) % Monocytes % (Manual) Hypersegmented Polys Platelet Estimate (NORMAL) Hypochromasia (manual) Poikilocytosis (manual Anisocytosis (manual) Tear Drop Cells Ovalocytes pCO2 (35-45) mm/Hg pO2 (80-100) mm/Hg HCO3 (21-28) mmol/L ABG pH (7.35-7.45) ABG Total CO2 (22-28) mmol/L ABG O2 Saturation (95-98) % ABG O2 Content (15-23) ML/dL ABG Base Excess (-2.0-3.0) mmol/L ABG Hemoglobin (11.7-17.4) g/dL ABG Carboxyhemoglobin (0.5-1.5) % POC ABG HHb (Measured) (0.0-5.0) % ABG Methemoglobin (0.0-3.0) % ABG O2 Capacity (16-24) mL/dL Frederic Test A-a O2 Difference mm/Hg Hgb O2 Saturation (95.0-98.0) % Vent Mode Mechanical Rate FiO2 % Tidal Volume PEEP Sodium 139 (132-148) mmol/l Potassium 4.4 (3.6-5.0) MMOL/L Chloride 103 (98-107) mmol/L Carbon Dioxide 23 (22-30) mmol/L Anion Gap 17 (10-20) BUN 82 H (7-17) mg/dl Creatinine 1.4 H (0.7-1.2) mg/dl Est GFR ( Amer) 46 Est GFR (Non-Af Amer) 38 Random Glucose 119 H (65-105) mg/dL Calcium 7.4 L (8.4-10.2) mg/dL Blood Type Antibody Screen Crossmatch See Detail BBK History Checked Patient has bt 09/09/18 09/08/18 09/06/18 Range/Units 05:25 04:25 16:27 WBC (4.8-10.8) K/uL RBC (3.80-5.20) Mil/uL Hgb (12.0-16.0) g/dL Hct (34.0-47.0) % MCV (81.0-99.0) fl MCH (27.0-31.0) pg MCHC (33.0-37.0) g/dL RDW (11.5-14.5) % Plt Count (130-400) K/uL MPV (7.2-11.7) fl Neut % (Auto) (50.0-75.0) % Lymph % (Auto) (20.0-40.0) % [place] % (Auto) (0.0-10.0) % Eos % (Auto) (0.0-4.0) % Baso % (Auto) (0.0-2.0) % Neut # (Auto) (1.8-7.0) K/uL Lymph # (Auto) (1.0-4.3) K/uL [place] # (Auto) (0.0-0.8) K/uL Eos # (Auto) (0.0-0.7) K/uL Baso # (Auto) (0.0-0.2) K/uL Neutrophils % (Manual) 95 H (42-75) % Lymphocytes % (Manual) 5 L (20-50) % Monocytes % (Manual) TEST NOT PERFORMED Hypersegmented Polys Present Platelet Estimate Decreased L (NORMAL) Hypochromasia (manual) Slight Poikilocytosis (manual Slight Anisocytosis (manual) Slight Tear Drop Cells Slight Ovalocytes Slight pCO2 38 (35-45) mm/Hg pO2 144 H (80-100) mm/Hg HCO3 25.0 (21-28) mmol/L ABG pH 7.42 (7.35-7.45) ABG Total CO2 25.8 (22-28) mmol/L ABG O2 Saturation 98.8 H (95-98) % ABG O2 Content 9.8 L (15-23) ML/dL ABG Base Excess 0.1 (-2.0-3.0) mmol/L ABG Hemoglobin 6.9 L (11.7-17.4) g/dL ABG Carboxyhemoglobin 0.7 (0.5-1.5) % POC ABG HHb (Measured) 1.2 (0.0-5.0) % ABG Methemoglobin 1.1 (0.0-3.0) % ABG O2 Capacity 9.9 L (16-24) mL/dL Frederic Test Yes A-a O2 Difference 165.0 mm/Hg Hgb O2 Saturation 97.0 (95.0-98.0) % Vent Mode A/c Mechanical Rate 16 FiO2 50.0 % Tidal Volume 400 PEEP 5 Sodium (132-148) mmol/l Potassium (3.6-5.0) MMOL/L Chloride (98-107) mmol/L Carbon Dioxide (22-30) mmol/L Anion Gap (10-20) BUN (7-17) mg/dl Creatinine (0.7-1.2) mg/dl Est GFR ( Amer) Est GFR (Non-Af Amer) Random Glucose (65-105) mg/dL Calcium (8.4-10.2) mg/dL Blood Type A POSITIVE Antibody Screen Negative Crossmatch See Detail BBK History Checked Patient has bt Laboratory Results - last 24 hr 09/06/18 09/08/18 09/09/18 16:27 04:25 05:25 WBC RBC Hgb Hct MCV MCH MCHC RDW Plt Count MPV Neut % (Auto) Lymph % (Auto) [place] % (Auto) Eos % (Auto) Baso % (Auto) Neut # (Auto) Lymph # (Auto) [place] # (Auto) Eos # (Auto) Baso # (Auto) Neutrophils % (Manual) 95 H Lymphocytes % (Manual) 5 L Monocytes % (Manual) TEST NOT PERFORMED Hypersegmented Polys Present Platelet Estimate Decreased L Hypochromasia (manual) Slight Poikilocytosis (manual Slight Anisocytosis (manual) Slight Tear Drop Cells Slight Ovalocytes Slight pCO2 38 pO2 144 H HCO3 25.0 ABG pH 7.42 ABG Total CO2 25.8 ABG O2 Saturation 98.8 H ABG O2 Content 9.8 L ABG Base Excess 0.1 ABG Hemoglobin 6.9 L ABG Carboxyhemoglobin 0.7 POC ABG HHb (Measured) 1.2 ABG Methemoglobin 1.1 ABG O2 Capacity 9.9 L Frederic Test Yes A-a O2 Difference 165.0 Hgb O2 Saturation 97.0 Vent Mode A/c Mechanical Rate 16 FiO2 50.0 Tidal Volume 400 PEEP 5 Sodium Potassium Chloride Carbon Dioxide Anion Gap BUN Creatinine Est GFR ( Amer) Est GFR (Non-Af Amer) Random Glucose Calcium Blood Type A POSITIVE Antibody Screen Negative Crossmatch See Detail BBK History Checked Patient has bt 09/09/18 09/09/18 09/09/18 05:30 05:30 08:00 WBC 5.0 D RBC 2.25 L Hgb 6.8 L Hct 20.4 L MCV 90.8 MCH 30.0 MCHC 33.1 RDW 17.4 H Plt Count 74 L D MPV 8.7 Neut % (Auto) 88.5 H Lymph % (Auto) 7.2 L [place] % (Auto) 4.0 Eos % (Auto) 0.2 Baso % (Auto) 0.1 Neut # (Auto) 4.4 Lymph # (Auto) 0.4 L [place] # (Auto) 0.2 Eos # (Auto) 0.0 Baso # (Auto) 0.0 Neutrophils % (Manual) Lymphocytes % (Manual) Monocytes % (Manual) Hypersegmented Polys Platelet Estimate Hypochromasia (manual) Poikilocytosis (manual Anisocytosis (manual) Tear Drop Cells Ovalocytes pCO2 pO2 HCO3 ABG pH ABG Total CO2 ABG O2 Saturation ABG O2 Content ABG Base Excess ABG Hemoglobin ABG Carboxyhemoglobin POC ABG HHb (Measured) ABG Methemoglobin ABG O2 Capacity Frederic Test A-a O2 Difference Hgb O2 Saturation Vent Mode Mechanical Rate FiO2 Tidal Volume PEEP Sodium 139 Potassium 4.4 Chloride 103 Carbon Dioxide 23 Anion Gap 17 BUN 82 H Creatinine 1.4 H Est GFR ( Amer) 46 Est GFR (Non-Af Amer) 38 Random Glucose 119 H Calcium 7.4 L Blood Type Antibody Screen Crossmatch See Detail BBK History Checked Patient has bt Radiology Impressions: Radiology Impressions Chest X-Ray 09/08/18 04:23 IMPRESSION: Left perihilar and basilar opacity. Right-sided opacity has resolved. Lines and tubes unchanged Assessment/Plan - Assessment and Plan (Free Text) Assessment: A/P Respiratory failure, pneumonia, severe sepsis, tumor lysis syndrome, breast ca, anemia, h/o DVT, s/p pancreatitis - Ventilatory support - Pulmonary toilets - Continue meds - Pressors as needed - OG tube feeding critical care 35 min
[2018-09-09] MEDS: Multivitamin With Minerals Tab PO SCH (08:34)
--- NOTE | 2018-09-09 10:38 | RAD ---
Date of service: 09/09/2018 HISTORY: intubated COMPARISON: No prior. FINDINGS: LUNGS: No active pulmonary disease. PLEURA: No significant pleural effusion identified, no pneumothorax apparent. CARDIOVASCULAR: No aortic atherosclerotic calcification present. Normal cardiac size. Bilateral pulmonary congestion. OSSEOUS STRUCTURES: No significant abnormalities. VISUALIZED UPPER ABDOMEN: Normal. OTHER FINDINGS: ETT above the loren. NG tube below the diaphragm. IMPRESSION: Pulmonary venous congestion.
--- NOTE | 2018-09-09 11:25 | CP.PCM.PN ---
Subjective - Date & Time of Evaluation Date of Evaluation: 09/09/18 Time of Evaluation: 11:25 - Subjective Subjective: ID Note- Patient seen and examined today in ICU. remains intubated and is on pressor for BP support as well. Objective - Vital Signs/Intake and Output Vital Signs (last 24 hours): Temp Pulse Resp BP Pulse Ox 98.2 F 67 16 117/52 L 100 09/09/18 10:33 09/09/18 11:00 09/09/18 11:00 09/09/18 11:00 09/09/18 11:00 Intake and Output: 09/09/18 09/09/18 06:59 18:59 Intake Total 3241 460 Output Total 1250 Balance 1990 460 - Medications Medications: Current Medications Albuterol/Ipratropium (Duoneb 3 Mg/0.5 Mg (3 Ml) Ud) 3 ml INH RQID [facility] Last Admin: 09/09/18 08:16 Dose: 3 ml Allopurinol (Zyloprim) 600 mg NG DAILY [facility] Last Admin: 09/09/18 08:35 Dose: 600 mg Alprazolam (Xanax) 0.25 mg PO Q12 PRN PRN Reason: Anxiety Stop: 09/11/18 08:42 Apixaban (Eliquis) 5 mg PO BID [facility]; Protocol Last Admin: 09/06/18 17:08 Dose: Not Given Dimethicone (Proshield Plus Skin Protectant) 1 applic TOP Q8 [facility] Last Admin: 09/09/18 08:33 Dose: 1 applic Ferrous Gluconate (Fergon) 324 mg PO TID [facility] Last Admin: 09/09/18 08:31 Dose: 324 mg Furosemide (Lasix) 20 mg PO BID [facility] Last Admin: 09/06/18 17:10 Dose: Not Given Sodium Chloride (Sodium Chloride 0.9%) 1,000 mls @ 100 mls/hr IV .Q10H [facility] Last Admin: 09/08/18 20:25 Dose: 100 mls/hr Meropenem 1 gm/ Sodium (Chloride) 100 mls @ 100 mls/hr IVPB Q8 [facility]; Protocol Last Admin: 09/09/18 08:32 Dose: 100 mls/hr Vancomycin HCl 750 mg/ Sodium (Chloride) 250 mls @ 166.667 mls/hr IVPB Q12 [facility]; Protocol Last Admin: 09/09/18 08:34 Dose: 166.667 mls/hr Propofol (Diprivan) 1,000 mg in 100 mls @ 5.77 mls/hr IV .[id number] [facility]; Protocol Stop: 09/10/18 05:58 Last Admin: 09/09/18 05:30 Dose: 20 mcg/kg/min, 5.77 mls/hr Norepinephrine Bitartrate 8 mg (/ Dextrose) 258 mls @ 24.19 mls/hr IV .[id number] [facility]; Protocol Stop: 09/09/18 20:41 Metoprolol Tartrate (Lopressor) 12.5 mg PO Q12 [facility] Last Admin: 09/06/18 21:59 Dose: Not Given Multivitamins/Minerals (Therapeutic-M Tab) 1 tab PO DAILY [facility] Last Admin: 09/09/18 08:34 Dose: 1 tab Sodium Bicarbonate (Sodium Bicarbonate Tab) 650 mg PO BID [facility] Last Admin: 09/09/18 08:33 Dose: 650 mg - Labs Labs: - Additional Findings Additional findings: - Constitutional Appears: Chronically Ill Additional comments: intubated and sedated - Eye Exam Eye Exam: PERRL - ENT Exam Additional comments: ET and OGT in place - Neck Exam Additional comments: supple - Respiratory Exam Additional comments: decreased breath sounds at basea On the vent - Cardiovascular Exam Cardiovascular Exam: Tachycardia, +S1, +S2 - GI/Abdominal Exam Additional comments: distended hypoactive BS umbilical region with mass like lesion with denuded skin , no pus, bloody discharge scant only - Extremities Exam Additional comments: b/l 1+ edema right posterior calf with multiple erythematous papules like lesion ( could be mets to the skin) - Neurological Exam Additional comments: sedated - Skin Additional comments: right breast entirely covered with fungating looking round erythematous lesions few have opened up and bleeding superfically - Additional Findings Additional findings: lines- ET and OG tube left chest mediport hardwick cath- draining bloody urine b/l hand peripheral IVL Laboratory Results - last 72 hr 09/06/18 09/07/18 09/07/18 16:27 04:35 04:35 WBC 10.4 RBC 2.71 L Hgb 9.6 L D Hct 24.3 L MCV 89.6 D MCH 35.3 H MCHC 39.4 H RDW 18.5 H Plt Count 71 L MPV 10.5 Neut % (Auto) 95.2 H Lymph % (Auto) 3.7 L Dickinson % (Auto) 0.6 Eos % (Auto) 0.1 Baso % (Auto) 0.4 Neut # (Auto) 9.9 H Lymph # (Auto) 0.4 L Dickinson # (Auto) 0.1 Eos # (Auto) 0.0 Baso # (Auto) 0.0 Neutrophils % (Manual) 89 H Band Neutrophils % 3 H Lymphocytes % (Manual) 5 L Monocytes % (Manual) 1 Metamyelocytes % 1 H Myelocytes % 1 H Hypersegmented Polys Toxic Granulation Present Platelet Estimate Decreased L Hypochromasia (manual) Moderate Poikilocytosis (manual Anisocytosis (manual) Slight Tear Drop Cells Slight Ovalocytes PT INR APTT Fibrinogen pCO2 pO2 HCO3 ABG pH ABG Total CO2 ABG O2 Saturation ABG O2 Content ABG Base Excess ABG Hemoglobin ABG Carboxyhemoglobin POC ABG HHb (Measured) ABG Methemoglobin ABG O2 Capacity Frederic Test A-a O2 Difference Hgb O2 Saturation Vent Mode Mechanical Rate FiO2 Tidal Volume PEEP Sodium 135 Potassium 6.0 H Chloride 98 Carbon Dioxide 23 Anion Gap 20 BUN 64 H Creatinine 1.8 H Est GFR ( Amer) 35 Est GFR (Non-Af Amer) 29 Random Glucose 131 H Uric Acid Calcium 6.9 L Phosphorus Magnesium Total Bilirubin AST ALT Alkaline Phosphatase Total Protein Albumin Globulin Albumin/Globulin Ratio Vancomycin Trough Blood Type A POSITIVE Antibody Screen Negative Crossmatch See Detail BBK History Checked Patient has bt 09/07/18 09/07/18 09/08/18 05:22 10:00 04:25 WBC 11.4 H RBC 2.25 L Hgb 6.4 L* D Hct 20.2 L MCV 89.6 MCH 28.4 MCHC 31.7 L RDW 18.4 H Plt Count 21 L* D MPV 9.0 Neut % (Auto) 92.8 H Lymph % (Auto) 5.4 L Dickinson % (Auto) 1.5 Eos % (Auto) 0.0 Baso % (Auto) 0.3 Neut # (Auto) 10.5 H Lymph # (Auto) 0.6 L Dickinson # (Auto) 0.2 Eos # (Auto) 0.0 Baso # (Auto) 0.0 Neutrophils % (Manual) 95 H Band Neutrophils % Lymphocytes % (Manual) 5 L Monocytes % (Manual) TEST NOT PERFORMED Metamyelocytes % Myelocytes % Hypersegmented Polys Present Toxic Granulation Platelet Estimate Decreased L Hypochromasia (manual) Slight Poikilocytosis (manual Slight Anisocytosis (manual) Slight Tear Drop Cells Slight Ovalocytes Slight PT INR APTT Fibrinogen pCO2 45 pO2 154 H HCO3 25.3 ABG pH 7.37 ABG Total CO2 27.4 ABG O2 Saturation 100.0 H ABG O2 Content 11.8 L ABG Base Excess 0.5 ABG Hemoglobin 8.5 L ABG Carboxyhemoglobin 1.4 POC ABG HHb (Measured) 0.0 ABG Methemoglobin 2.4 ABG O2 Capacity 11.8 L Frederic Test Yes A-a O2 Difference 146.0 Hgb O2 Saturation 96.2 Vent Mode A/c Mechanical Rate 16 FiO2 50.0 Tidal Volume 400 PEEP 5 Sodium Potassium Chloride Carbon Dioxide Anion Gap BUN Creatinine Est GFR ( Amer) Est GFR (Non-Af Amer) Random Glucose Uric Acid 10.7 H Calcium Phosphorus 6.6 H Magnesium 2.6 H Total Bilirubin AST ALT Alkaline Phosphatase Total Protein Albumin Globulin Albumin/Globulin Ratio Vancomycin Trough Blood Type Antibody Screen Crossmatch BBK History Checked 09/08/18 09/08/18 09/08/18 04:25 04:25 04:25 WBC RBC Hgb Hct MCV MCH MCHC RDW Plt Count MPV Neut % (Auto) Lymph % (Auto) Dickinson % (Auto) Eos % (Auto) Baso % (Auto) Neut # (Auto) Lymph # (Auto) Dickinson # (Auto) Eos # (Auto) Baso # (Auto) Neutrophils % (Manual) Band Neutrophils % Lymphocytes % (Manual) Monocytes % (Manual) Metamyelocytes % Myelocytes % Hypersegmented Polys Toxic Granulation Platelet Estimate Hypochromasia (manual) Poikilocytosis (manual Anisocytosis (manual) Tear Drop Cells Ovalocytes PT 14.2 H INR 1.3 APTT 25.8 Fibrinogen 316 pCO2 pO2 HCO3 ABG pH ABG Total CO2 ABG O2 Saturation ABG O2 Content ABG Base Excess ABG Hemoglobin ABG Carboxyhemoglobin POC ABG HHb (Measured) ABG Methemoglobin ABG O2 Capacity Frederic Test A-a O2 Difference Hgb O2 Saturation Vent Mode Mechanical Rate FiO2 Tidal Volume PEEP Sodium 138 Potassium 4.7 Chloride 103 Carbon Dioxide 23 Anion Gap 17 BUN 74 H Creatinine 2.0 H Est GFR ( Amer) 31 Est GFR (Non-Af Amer) 25 Random Glucose 165 H Uric Acid 8.7 H Calcium 6.9 L Phosphorus 7.1 H Magnesium 2.6 H Total Bilirubin 0.5 AST 28 ALT 18 Alkaline Phosphatase 72 Total Protein 4.7 L Albumin 2.2 L Globulin 2.6 Albumin/Globulin Ratio 0.8 L Vancomycin Trough 10.9 H Blood Type Antibody Screen Crossmatch BBK History Checked 09/08/18 09/09/18 09/09/18 05:03 05:25 05:30 WBC 5.0 D RBC 2.25 L Hgb 6.8 L Hct 20.4 L MCV 90.8 MCH 30.0 MCHC 33.1 RDW 17.4 H Plt Count 74 L D MPV 8.7 Neut % (Auto) 88.5 H Lymph % (Auto) 7.2 L Dickinson % (Auto) 4.0 Eos % (Auto) 0.2 Baso % (Auto) 0.1 Neut # (Auto) 4.4 Lymph # (Auto) 0.4 L Dickinson # (Auto) 0.2 Eos # (Auto) 0.0 Baso # (Auto) 0.0 Neutrophils % (Manual) Band Neutrophils % Lymphocytes % (Manual) Monocytes % (Manual) Metamyelocytes % Myelocytes % Hypersegmented Polys Toxic Granulation Platelet Estimate Hypochromasia (manual) Poikilocytosis (manual Anisocytosis (manual) Tear Drop Cells Ovalocytes PT INR APTT Fibrinogen pCO2 43 38 pO2 148 H 144 H HCO3 23.6 25.0 ABG pH 7.35 7.42 ABG Total CO2 25.0 25.8 ABG O2 Saturation 98.9 H 98.8 H ABG O2 Content 9.5 L 9.8 L ABG Base Excess -1.8 0.1 ABG Hemoglobin 6.7 L 6.9 L ABG Carboxyhemoglobin 0.7 0.7 POC ABG HHb (Measured) 1.1 1.2 ABG Methemoglobin 1.5 1.1 ABG O2 Capacity 9.6 L 9.9 L Frederic Test Yes Yes A-a O2 Difference 155.0 165.0 Hgb O2 Saturation 96.7 97.0 Vent Mode A/c A/c Mechanical Rate 16 16 FiO2 50.0 50.0 Tidal Volume 400 400 PEEP 5 5 Sodium Potassium Chloride Carbon Dioxide Anion Gap BUN Creatinine Est GFR ( Amer) Est GFR (Non-Af Amer) Random Glucose Uric Acid Calcium Phosphorus Magnesium Total Bilirubin AST ALT Alkaline Phosphatase Total Protein Albumin Globulin Albumin/Globulin Ratio Vancomycin Trough Blood Type Antibody Screen Crossmatch BBK History Checked 09/09/18 09/09/18 05:30 08:00 WBC RBC Hgb Hct MCV MCH MCHC RDW Plt Count MPV Neut % (Auto) Lymph % (Auto) Dickinson % (Auto) Eos % (Auto) Baso % (Auto) Neut # (Auto) Lymph # (Auto) Dickinson # (Auto) Eos # (Auto) Baso # (Auto) Neutrophils % (Manual) Band Neutrophils % Lymphocytes % (Manual) Monocytes % (Manual) Metamyelocytes % Myelocytes % Hypersegmented Polys Toxic Granulation Platelet Estimate Hypochromasia (manual) Poikilocytosis (manual Anisocytosis (manual) Tear Drop Cells Ovalocytes PT INR APTT Fibrinogen pCO2 pO2 HCO3 ABG pH ABG Total CO2 ABG O2 Saturation ABG O2 Content ABG Base Excess ABG Hemoglobin ABG Carboxyhemoglobin POC ABG HHb (Measured) ABG Methemoglobin ABG O2 Capacity Frederic Test A-a O2 Difference Hgb O2 Saturation Vent Mode Mechanical Rate FiO2 Tidal Volume PEEP Sodium 139 Potassium 4.4 Chloride 103 Carbon Dioxide 23 Anion Gap 17 BUN 82 H Creatinine 1.4 H Est GFR ( Amer) 46 Est GFR (Non-Af Amer) 38 Random Glucose 119 H Uric Acid Calcium 7.4 L Phosphorus Magnesium Total Bilirubin AST ALT Alkaline Phosphatase Total Protein Albumin Globulin Albumin/Globulin Ratio Vancomycin Trough Blood Type A POSITIVE Antibody Screen Negative Crossmatch See Detail BBK History Checked Patient has bt Microbiology 09/07/18 09:07 Trachasp Gram Stain - Final 09/07/18 09:07 Trachasp Sputum Culture - Final Yeast Species 09/07/18 Unknown Blood-Thru Central Line Blood Culture - Preliminary NO GROWTH AFTER 48 HOURS 09/07/18 Unknown Blood-Thru Central Line Blood Culture - Preliminary NO GROWTH AFTER 48 HOURS 09/04/18 11:25 Naris MRSA Culture (Admit) - Final MRSA NOT DETECTED 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 intubated and sedated. low grade fevers. ? infiltrates on CXR report. anemic and thrombocytopenic post chemo. undergoing PRBC transfusions. tumor lysis syndrome as well. blood cx- 09/07/2018- neg x 2 trach asp cx- yeast PLan- advise to continue with Iv Vancomycin for empiric staph coverage. advise to continue IV meropnem for broad spectrum gram negative coverage.day #2. add fluconazole 100 mg IV daily for yeast in trach asp culture. Prognosis poor. critical care time spent 40 minutes.
[2018-09-09] MEDS: Fluconazole IV 100mg/50 ml NS 50 ML IVPB SCH (15:00)
--- NOTE | 2018-09-09 17:12 | CP.PCM.PN ---
Subjective - Date & Time of Evaluation Date of Evaluation: 09/08/18 Time of Evaluation: 19:30 - Subjective Subjective: Seen and examined at the bed side. Patient Continue to bleed per Vaginal and Hemturia. Patient has been intubated for 5 Days. D/w the family in detail about the Poor prognosis associated with the patient's multiple Critical conditions: Objective - Vital Signs/Intake and Output Vital Signs (last 24 hours): Temp Pulse Resp BP Pulse Ox 98.7 F 108 H 15 101/64 100 09/09/18 17:01 09/09/18 17:01 09/09/18 17:01 09/09/18 17:01 09/09/18 16:00 Intake and Output: 09/09/18 09/09/18 06:59 18:59 Intake Total [id number] Output Total 0 Balance 1990 2064 - Medications Medications: Current Medications Albuterol/Ipratropium (Duoneb 3 Mg/0.5 Mg (3 Ml) Ud) 3 ml INH RQID [facility] Last Admin: 09/09/18 15:39 Dose: 3 ml Allopurinol (Zyloprim) 600 mg NG DAILY [facility] Last Admin: 09/09/18 08:35 Dose: 600 mg Alprazolam (Xanax) 0.25 mg PO Q12 PRN PRN Reason: Anxiety Stop: 09/11/18 08:42 Apixaban (Eliquis) 5 mg PO BID [facility]; Protocol Last Admin: 09/06/18 17:08 Dose: Not Given Dimethicone (Proshield Plus Skin Protectant) 1 applic TOP Q8 [facility] Last Admin: 09/09/18 08:33 Dose: 1 applic Ferrous Gluconate (Fergon) 324 mg PO TID [facility] Last Admin: 09/09/18 12:29 Dose: 324 mg Furosemide (Lasix) 20 mg PO BID [facility] Last Admin: 09/06/18 17:10 Dose: Not Given Sodium Chloride (Sodium Chloride 0.9%) 1,000 mls @ 100 mls/hr IV .Q10H [facility] Last Admin: 09/08/18 20:25 Dose: 100 mls/hr Meropenem 1 gm/ Sodium (Chloride) 100 mls @ 100 mls/hr IVPB Q8 [facility]; Protocol Last Admin: 09/09/18 08:32 Dose: 100 mls/hr Vancomycin HCl 750 mg/ Sodium (Chloride) 250 mls @ 166.667 mls/hr IVPB Q12 [facility]; Protocol Last Admin: 09/09/18 08:34 Dose: 166.667 mls/hr Propofol (Diprivan) 1,000 mg in 100 mls @ 5.77 mls/hr IV .[id number] [facility]; Protocol Stop: 09/10/18 05:58 Last Admin: 09/09/18 05:30 Dose: 20 mcg/kg/min, 5.77 mls/hr Norepinephrine Bitartrate 8 mg (/ Dextrose) 258 mls @ 24.19 mls/hr IV .[id number] [facility]; Protocol Stop: 09/09/18 20:41 Fluconazole (Diflucan Iv 100 Mg/50 Ml Ns) 50 mls @ 50 mls/hr IVPB DAILY [facility]; Protocol Last Admin: 09/09/18 15:00 Dose: 50 mls/hr Metoprolol Tartrate (Lopressor) 12.5 mg PO Q12 [facility] Last Admin: 09/06/18 21:59 Dose: Not Given Multivitamins/Minerals (Therapeutic-M Tab) 1 tab PO DAILY [facility] Last Admin: 09/09/18 08:34 Dose: 1 tab Sodium Bicarbonate (Sodium Bicarbonate Tab) 650 mg PO BID [facility] Last Admin: 09/09/18 08:33 Dose: 650 mg - Labs Labs: 09/09/18 05:30 09/09/18 05:30 PT 14.2 Seconds (9.8-13.1) H 09/08/18 04:25 INR 1.3 09/08/18 04:25 APTT 25.8 Seconds (25.6-37.1) 09/08/18 04:25 Assessment and Plan (1) Acute respiratory failure with hypoxemia Status: Acute (2) Ascites, malignant Status: Acute (3) Congestive heart failure (CHF) Status: Acute (4) Stage IV breast cancer in female Status: Acute (5) Severe anemia Status: Resolved
[2018-09-09] MEDS: Sodium Chloride 0.9% 1,000 ML IV SCH (18:14)
--- NOTE | 2018-09-09 19:51 | CP.PCM.PN ---
Subjective - Date & Time of Evaluation Date of Evaluation: 09/08/18 Time of Evaluation: 19:00 - Subjective Subjective: Vented s/p 2U PRBC and 2 bags platelets Objective - Vital Signs/Intake and Output Vital Signs (last 24 hours): Temp Pulse Resp BP Pulse Ox 97 F L 96 H 16 111/64 100 09/09/18 19:00 09/09/18 19:00 09/09/18 19:00 09/09/18 19:00 09/09/18 19:00 Intake and Output: 09/09/18 09/10/18 18:59 06:59 Intake Total 2165 Output Total 500 Balance 1665 - Medications Medications: Current Medications Albuterol/Ipratropium (Duoneb 3 Mg/0.5 Mg (3 Ml) Ud) 3 ml INH RQID [facility] Last Admin: 09/09/18 19:25 Dose: 3 ml Allopurinol (Zyloprim) 600 mg NG DAILY [facility] Last Admin: 09/09/18 08:35 Dose: 600 mg Alprazolam (Xanax) 0.25 mg PO Q12 PRN PRN Reason: Anxiety Stop: 09/11/18 08:42 Apixaban (Eliquis) 5 mg PO BID [facility]; Protocol Last Admin: 09/06/18 17:08 Dose: Not Given Dimethicone (Proshield Plus Skin Protectant) 1 applic TOP Q8 [facility] Last Admin: 09/09/18 17:25 Dose: 1 applic Ferrous Gluconate (Fergon) 324 mg PO TID [facility] Last Admin: 09/09/18 17:24 Dose: 324 mg Furosemide (Lasix) 20 mg PO BID [facility] Last Admin: 09/06/18 17:10 Dose: Not Given Sodium Chloride (Sodium Chloride 0.9%) 1,000 mls @ 100 mls/hr IV .Q10H [facility] Last Admin: 09/09/18 18:14 Dose: 100 mls/hr Meropenem 1 gm/ Sodium (Chloride) 100 mls @ 100 mls/hr IVPB Q8 [facility]; Protocol Last Admin: 09/09/18 17:25 Dose: 100 mls/hr Vancomycin HCl 750 mg/ Sodium (Chloride) 250 mls @ 166.667 mls/hr IVPB Q12 [facility]; Protocol Last Admin: 09/09/18 08:34 Dose: 166.667 mls/hr Propofol (Diprivan) 1,000 mg in 100 mls @ 5.77 mls/hr IV .[id number] [facility]; Protocol Stop: 09/10/18 05:58 Last Admin: 09/09/18 05:30 Dose: 20 mcg/kg/min, 5.77 mls/hr Norepinephrine Bitartrate 8 mg (/ Dextrose) 258 mls @ 24.19 mls/hr IV .[id number] [facility]; Protocol Stop: 09/09/18 20:41 Fluconazole (Diflucan Iv 100 Mg/50 Ml Ns) 50 mls @ 50 mls/hr IVPB DAILY [facility]; Protocol Last Admin: 09/09/18 15:00 Dose: 50 mls/hr Metoprolol Tartrate (Lopressor) 12.5 mg PO Q12 [facility] Last Admin: 09/06/18 21:59 Dose: Not Given Multivitamins/Minerals (Therapeutic-M Tab) 1 tab PO DAILY [facility] Last Admin: 09/09/18 08:34 Dose: 1 tab Sodium Bicarbonate (Sodium Bicarbonate Tab) 650 mg PO BID [facility] Last Admin: 09/09/18 17:26 Dose: 650 mg - Labs Labs: 09/09/18 05:30 09/09/18 05:30 PT 14.2 Seconds (9.8-13.1) H 09/08/18 04:25 INR 1.3 09/08/18 04:25 APTT 25.8 Seconds (25.6-37.1) 09/08/18 04:25 - Head Exam Head Exam: ATRAUMATIC - Eye Exam Eye Exam: Normal appearance - ENT Exam ENT Exam: Mucous Membranes Dry - Respiratory Exam Respiratory Exam: NORMAL BREATHING PATTERN - Cardiovascular Exam Cardiovascular Exam: +S1, +S2 - GI/Abdominal Exam GI & Abdominal Exam: Normal Bowel Sounds - Extremities Exam Extremities Exam: Pedal Edema Assessment and Plan (1) Tumor lysis syndrome Assessment & Plan: IV fluids, allopurinol electrolytes improved Status: Acute (2) Thrombocytopenia Assessment & Plan: secondary to chemotherapy for 2 bags platelets today due to bleeding rapid decline Status: Acute (3) Anemia Assessment & Plan: multifactorial chemotherapy, hematuria, and chronic disease transfusion support Status: Acute (4) Pulmonary embolism Assessment & Plan: anticoauglation on hold for bleeding Status: Acute (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
--- NOTE | 2018-09-09 19:55 | CP.PCM.PN ---
Subjective - Date & Time of Evaluation Date of Evaluation: 09/09/18 Time of Evaluation: 16:00 - Subjective Subjective: Vented, family at bedside. Objective - Vital Signs/Intake and Output Vital Signs (last 24 hours): Temp Pulse Resp BP Pulse Ox 97 F L 96 H 16 111/64 100 09/09/18 19:00 09/09/18 19:00 09/09/18 19:00 09/09/18 19:00 09/09/18 19:00 Intake and Output: 09/09/18 09/10/18 18:59 06:59 Intake Total 2165 Output Total 500 Balance 1665 - Medications Medications: Current Medications Albuterol/Ipratropium (Duoneb 3 Mg/0.5 Mg (3 Ml) Ud) 3 ml INH RQID [facility] Last Admin: 09/09/18 19:25 Dose: 3 ml Allopurinol (Zyloprim) 600 mg NG DAILY [facility] Last Admin: 09/09/18 08:35 Dose: 600 mg Alprazolam (Xanax) 0.25 mg PO Q12 PRN PRN Reason: Anxiety Stop: 09/11/18 08:42 Apixaban (Eliquis) 5 mg PO BID [facility]; Protocol Last Admin: 09/06/18 17:08 Dose: Not Given Dimethicone (Proshield Plus Skin Protectant) 1 applic TOP Q8 [facility] Last Admin: 09/09/18 17:25 Dose: 1 applic Ferrous Gluconate (Fergon) 324 mg PO TID [facility] Last Admin: 09/09/18 17:24 Dose: 324 mg Furosemide (Lasix) 20 mg PO BID [facility] Last Admin: 09/06/18 17:10 Dose: Not Given Sodium Chloride (Sodium Chloride 0.9%) 1,000 mls @ 100 mls/hr IV .Q10H [facility] Last Admin: 09/09/18 18:14 Dose: 100 mls/hr Meropenem 1 gm/ Sodium (Chloride) 100 mls @ 100 mls/hr IVPB Q8 [facility]; Protocol Last Admin: 09/09/18 17:25 Dose: 100 mls/hr Vancomycin HCl 750 mg/ Sodium (Chloride) 250 mls @ 166.667 mls/hr IVPB Q12 [facility]; Protocol Last Admin: 09/09/18 08:34 Dose: 166.667 mls/hr Propofol (Diprivan) 1,000 mg in 100 mls @ 5.77 mls/hr IV .[id number] [facility]; Protocol Stop: 09/10/18 05:58 Last Admin: 09/09/18 05:30 Dose: 20 mcg/kg/min, 5.77 mls/hr Norepinephrine Bitartrate 8 mg (/ Dextrose) 258 mls @ 24.19 mls/hr IV .[id number] [facility]; Protocol Stop: 09/09/18 20:41 Fluconazole (Diflucan Iv 100 Mg/50 Ml Ns) 50 mls @ 50 mls/hr IVPB DAILY [facility]; Protocol Last Admin: 09/09/18 15:00 Dose: 50 mls/hr Metoprolol Tartrate (Lopressor) 12.5 mg PO Q12 [facility] Last Admin: 09/06/18 21:59 Dose: Not Given Multivitamins/Minerals (Therapeutic-M Tab) 1 tab PO DAILY [facility] Last Admin: 09/09/18 08:34 Dose: 1 tab Sodium Bicarbonate (Sodium Bicarbonate Tab) 650 mg PO BID [facility] Last Admin: 09/09/18 17:26 Dose: 650 mg - Labs Labs: 09/09/18 05:30 09/09/18 05:30 PT 14.2 Seconds (9.8-13.1) H 09/08/18 04:25 INR 1.3 09/08/18 04:25 APTT 25.8 Seconds (25.6-37.1) 09/08/18 04:25 - Head Exam Head Exam: ATRAUMATIC - Eye Exam Eye Exam: Normal appearance - ENT Exam ENT Exam: Mucous Membranes Dry - Respiratory Exam Respiratory Exam: NORMAL BREATHING PATTERN - Cardiovascular Exam Cardiovascular Exam: +S1, +S2 - GI/Abdominal Exam GI & Abdominal Exam: Normal Bowel Sounds Assessment and Plan (1) Tumor lysis syndrome Assessment & Plan: appears resolving electrolytes and renal function improved Status: Acute (2) Thrombocytopenia Assessment & Plan: improved s/p 2 bags platelets Status: Acute (3) Anemia Assessment & Plan: cont RPBC transfusion hematuria, chemotherapy, and chronic disease Status: Acute (4) Pulmonary embolism Assessment & Plan: anticoagulation on hold for hematuria Status: Acute (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
--- NOTE | 2018-09-09 22:29 | CP.PCM.PN ---
Subjective - Date & Time of Evaluation Date of Evaluation: 09/09/18 Time of Evaluation: 18:05 - Subjective Subjective: Seen and examined at the bed side. Patient Continue to bleed per Vaginal and Hemturia. Patient has been intubated for 3 Days. D/w the family in detail about the Poor prognosis associated with the patient's multiple Critical conditions: Objective - Vital Signs/Intake and Output Vital Signs (last 24 hours): Temp Pulse Resp BP Pulse Ox 97 F L 98 H 17 110/68 100 09/09/18 19:00 09/09/18 21:00 09/09/18 21:00 09/09/18 21:00 09/09/18 21:00 Intake and Output: 09/09/18 09/10/18 18:59 06:59 Intake Total 2165 555 Output Total 500 Balance 1665 555 - Medications Medications: Current Medications Albuterol/Ipratropium (Duoneb 3 Mg/0.5 Mg (3 Ml) Ud) 3 ml INH RQID [facility] Last Admin: 09/09/18 19:25 Dose: 3 ml Allopurinol (Zyloprim) 600 mg NG DAILY [facility] Last Admin: 09/09/18 08:35 Dose: 600 mg Alprazolam (Xanax) 0.25 mg PO Q12 PRN PRN Reason: Anxiety Stop: 09/11/18 08:42 Apixaban (Eliquis) 5 mg PO BID [facility]; Protocol Last Admin: 09/06/18 17:08 Dose: Not Given Dimethicone (Proshield Plus Skin Protectant) 1 applic TOP Q8 [facility] Last Admin: 09/09/18 17:25 Dose: 1 applic Ferrous Gluconate (Fergon) 324 mg PO TID [facility] Last Admin: 09/09/18 17:24 Dose: 324 mg Furosemide (Lasix) 20 mg PO BID [facility] Last Admin: 09/06/18 17:10 Dose: Not Given Sodium Chloride (Sodium Chloride 0.9%) 1,000 mls @ 100 mls/hr IV .Q10H [facility] Last Admin: 09/09/18 18:14 Dose: 100 mls/hr Meropenem 1 gm/ Sodium (Chloride) 100 mls @ 100 mls/hr IVPB Q8 [facility]; Protocol Last Admin: 09/09/18 17:25 Dose: 100 mls/hr Vancomycin HCl 750 mg/ Sodium (Chloride) 250 mls @ 166.667 mls/hr IVPB Q12 [facility]; Protocol Last Admin: 09/09/18 20:00 Dose: 166.667 mls/hr Propofol (Diprivan) 1,000 mg in 100 mls @ 5.77 mls/hr IV .[id number] [facility]; Protocol Stop: 09/10/18 05:58 Last Admin: 09/09/18 21:24 Dose: 15 mcg/kg/min, 4.327 mls/hr Fluconazole (Diflucan Iv 100 Mg/50 Ml Ns) 50 mls @ 50 mls/hr IVPB DAILY [facility]; Protocol Last Admin: 09/09/18 15:00 Dose: 50 mls/hr Metoprolol Tartrate (Lopressor) 12.5 mg PO Q12 [facility] Last Admin: 09/06/18 21:59 Dose: Not Given Multivitamins/Minerals (Therapeutic-M Tab) 1 tab PO DAILY [facility] Last Admin: 09/09/18 08:34 Dose: 1 tab Sodium Bicarbonate (Sodium Bicarbonate Tab) 650 mg PO BID [facility] Last Admin: 09/09/18 17:26 Dose: 650 mg - Labs Labs: 09/09/18 05:30 09/09/18 05:30 PT 14.2 Seconds (9.8-13.1) H 09/08/18 04:25 INR 1.3 09/08/18 04:25 APTT 25.8 Seconds (25.6-37.1) 09/08/18 04:25 Assessment and Plan (1) Acute respiratory failure with hypoxemia Status: Acute (2) Ascites, malignant Status: Acute (3) Congestive heart failure (CHF) Status: Acute (4) Stage IV breast cancer in female Status: Acute (5) Severe anemia Status: Resolved
[2018-09-10] MEDS: Meropenem 1 GM in Sodium Chloride 0.9% 100 ML IVPB SCH ×3 (00:02→17:16)
[2018-09-10] MEDS: Proshield Plus GEL TOP SCH ×3 (00:03→17:17)
[2018-09-10] MEDS: Sodium Chloride 0.9% 1,000 ML IV SCH ×3 (04:57→05:00)
[2018-09-10 05:10] LABS: ABG ALLEN TEST YES; ARTERIAL BLOOD GAS HCO3 23.4 mmol/L (21-28); ARTERIAL BLOOD GAS HEMOGLOBIN 8.7 g/dL (11.7-17.4); ARTERIAL BLOOD GAS O2 CAPACITY 12.2 mL/dL (16-24); ARTERIAL BLOOD GAS O2 CONTENT 12.3 ML/dL (15-23); ARTERIAL BLOOD GAS O2 SAT 100.7 % (95-98); ARTERIAL BLOOD GAS PCO2 40 mm/Hg (35-45); ARTERIAL BLOOD GAS PH 7.37 (7.35-7.45); ARTERIAL BLOOD GAS PO2 134 mm/Hg (80-100); ARTERIAL BLOOD GAS TCO2 24.3 mmol/L (22-28)
[2018-09-10 06:32] LABS: HEMOGLOBIN 8.5 g/dL (12.0-16.0); MEAN CELL VOLUME 90.2 fl (81.0-99.0); MEAN CORPUSCULAR HEMOGLOBIN 30.2 pg (27.0-31.0); MEAN CORPUSCULAR HGB CONC 33.5 g/dL (33.0-37.0); RBC 2.82 Mil/uL (3.80-5.20); WHITE BLOOD COUNT 2.5 K/uL (4.8-10.8)
[2018-09-10] MEDS: Albuterol-Ipratrop 3 mg / 0.5 (3 ml) UD INH SCH ×5 (07:28→19:08)
--- NOTE | 2018-09-10 07:47 | CP.CCUPN ---
CCU Subjective - Physician Review Events Since Last Encounter (Free Text): Patient on ventilator, on PRVC, TV 400, RR 16, FIO2 50%, sedated no response to verbal stimuli, no fever, on OG tube feeding, on levophed, events reviewed CCU Objective - Vital Signs / Intake & Output Vital Signs (Last 4 hours): Vital Signs Temp Pulse Resp BP Pulse Ox 09/10/18 06:40 85 29 H 149/74 95 09/10/18 06:00 105 H 15 104/52 L 100 09/10/18 05:00 102 H 14 100/65 100 09/10/18 04:00 96.5 F L 110 H 28 H 110/65 100 Intake and Output (Last 8hrs): Intake & Output 09/09/18 09/10/18 09/10/18 22:59 06:59 14:59 Intake Total 1830 415 Output Total 500 800 Balance 1330 -385 Intake: IV 800 Intake, Piggyback 400 Tube Feeding 105 315 Blood Product 325 Red Blood Cells Cpd As1 325 Lr Unit [id number] Free Water Flush 200 100 Output: Urine 500 800 Urethral (Orellana) 500 800 Other: # Bowel Movements 1 1 - Physical Exam Head: Positive for: Atraumatic, Normocephalic Pupils: Positive for: PERRL Extroacular Muscles: Positive for: EOMI Conjunctiva: Positive for: Normal. Negative for: Injected, Icteric Ears: Positive for: Normal Mouth: Positive for: Moist Mucous Membranes Nose (Internal): Positive for: Normal Inspection Neck: Positive for: Normal Range of Motion, Trachea Midline. Negative for: Meni ngeal Signs, MIDLINE TENDERNESS, Paraspinal Tenderness, JVD, Lymphadenopathy, Bruit, Other Respiratory/Chest: Positive for: Good Air Exchange, Rales, Retracting, Rhonchi. Negative for: Respiratory Distress, Accessory Muscle Use, Wheezes, Tachypneic Cardiovascular: Positive for: Regular Rate and Rhythm, Normal S1, S2, Peripheal Pulses Present. Negative for: Murmurs, Irregular Rhythm, Tachycardic, Bradycardic Abdomen: Positive for: Distention, Normal Bowel Sounds. Negative for: Tenderness Breast/Axillary: Positive for: Other (fungating necrotic mass to Right Breast) Upper Extremity: Positive for: Edema, NORMAL PULSES. Negative for: Normal Inspection, Cyanosis Lower Extremity: Positive for: Edema, NORMAL PULSES. Negative for: Normal Inspection Psychiatric: Positive for: Other (Sedated and orally intubated). Negative for: Alert, Oriented x 3 - Medications Active Medications: Active Medications Generic Name Dose Route Start Last Admin Trade Name Freq PRN Reason Stop Dose Admin Albuterol/Ipratropium 3 ml 09/04/18 12:00 09/10/18 07:28 Duoneb 3 Mg/0.5 Mg (3 Ml) Ud INH 3 ml RQID [facility] Administration Allopurinol 600 mg 09/07/18 11:30 09/09/18 08:35 Zyloprim NG 600 mg DAILY [facility] Administration Alprazolam 0.25 mg 09/04/18 08:41 Xanax PO 09/11/18 08:42 Q12 PRN Anxiety Apixaban 5 mg 09/04/18 09:00 09/06/18 17:08 Eliquis PO Not Given BID [facility] Protocol Dimethicone 1 applic 09/06/18 17:00 09/10/18 00:03 Proshield Plus Skin Protectant TOP 1 applic Q8 [facility] Administration Ferrous Gluconate 324 mg 09/04/18 09:00 09/09/18 17:24 Fergon PO 324 mg TID [facility] Administration Furosemide 20 mg 09/04/18 09:00 09/06/18 17:10 Lasix PO Not Given BID [facility] Sodium Chloride 1,000 mls @ 100 mls/hr 09/03/18 23:45 09/10/18 05:00 Sodium Chloride 0.9% IV 100 mls/hr .Q10H [facility] Administration Meropenem 1 gm/ Sodium 100 mls @ 100 mls/hr 09/08/18 17:15 09/10/18 00:02 Chloride IVPB 100 mls/hr Q8 [facility] Administration Protocol Vancomycin HCl 750 mg/ Sodium 250 mls @ 166.667 mls/hr 09/08/18 21:00 09/09/18 20:00 Chloride IVPB 166.667 mls/hr Q12 [facility] Administration Protocol Fluconazole 50 mls @ 50 mls/hr 09/09/18 11:30 09/09/18 15:00 Diflucan Iv 100 Mg/50 Ml Ns IVPB 50 mls/hr DAILY [facility] Administration Protocol Metoprolol Tartrate 12.5 mg 09/03/18 23:45 09/06/18 21:59 Lopressor PO Not Given Q12 [facility] Multivitamins/Minerals 1 tab 09/04/18 09:00 09/09/18 08:34 Therapeutic-M Tab PO 1 tab DAILY [facility] Administration Sodium Bicarbonate 650 mg 09/04/18 09:00 09/09/18 17:26 Sodium Bicarbonate Tab PO 650 mg BID [facility] Administration - Patient Studies Lab Studies: Microbiology Studies 09/07/18 09:07 Gram Stain - Final Trachasp Sputum Culture - Final Yeast Species 09/07/18 Unknown Blood Culture - Preliminary Blood-Thru Central Line NO GROWTH AFTER 48 HOURS 09/07/18 Unknown Blood Culture - Preliminary Blood-Thru Central Line NO GROWTH AFTER 48 HOURS Lab Studies 09/10/18 09/10/18 09/09/18 Range/Units 05:35 04:58 08:00 WBC 2.5 L (4.8-10.8) K/uL RBC 2.82 L (3.80-5.20) Mil/uL Hgb 8.5 L (12.0-16.0) g/dL Hct 25.4 L (34.0-47.0) % MCV 90.2 (81.0-99.0) fl MCH 30.2 (27.0-31.0) pg MCHC 33.5 (33.0-37.0) g/dL RDW 16.0 H (11.5-14.5) % Plt Count 35 L D (130-400) K/uL pCO2 40 (35-45) mm/Hg pO2 134 H (80-100) mm/Hg HCO3 23.4 (21-28) mmol/L ABG pH 7.37 (7.35-7.45) ABG Total CO2 24.3 (22-28) mmol/L ABG O2 Saturation 100.7 H (95-98) % ABG O2 Content 12.3 L (15-23) ML/dL ABG Base Excess -2.0 (-2.0-3.0) mmol/L ABG Hemoglobin 8.7 L (11.7-17.4) g/dL ABG Carboxyhemoglobin 1.7 H (0.5-1.5) % POC ABG HHb (Measured) -0.7 L (0.0-5.0) % ABG Methemoglobin 0.9 (0.0-3.0) % ABG O2 Capacity 12.2 L (16-24) mL/dL Freedric Test Yes A-a O2 Difference 173.0 mm/Hg Hgb O2 Saturation 98.1 H (95.0-98.0) % Vent Mode A/c Mechanical Rate 16 FiO2 50.0 % Tidal Volume 400 PEEP 5 Blood Type A POSITIVE Antibody Screen Negative Crossmatch See Detail BBK History Checked Patient has bt Laboratory Results - last 24 hr 09/09/18 09/10/18 09/10/18 08:00 04:58 05:35 WBC 2.5 L RBC 2.82 L Hgb 8.5 L Hct 25.4 L MCV 90.2 MCH 30.2 MCHC 33.5 RDW 16.0 H Plt Count 35 L D pCO2 40 pO2 134 H HCO3 23.4 ABG pH 7.37 ABG Total CO2 24.3 ABG O2 Saturation 100.7 H ABG O2 Content 12.3 L ABG Base Excess -2.0 ABG Hemoglobin 8.7 L ABG Carboxyhemoglobin 1.7 H POC ABG HHb (Measured) -0.7 L ABG Methemoglobin 0.9 ABG O2 Capacity 12.2 L Frederic Test Yes A-a O2 Difference 173.0 Hgb O2 Saturation 98.1 H Vent Mode A/c Mechanical Rate 16 FiO2 50.0 Tidal Volume 400 PEEP 5 Blood Type A POSITIVE Antibody Screen Negative Crossmatch See Detail BBK History Checked Patient has bt Radiology Impressions: Radiology Impressions Chest X-Ray 09/09/18 06:00 IMPRESSION: Pulmonary venous congestion. Assessment/Plan - Assessment and Plan (Free Text) Assessment: A/P Respiratory failure, pneumonia, severe sepsis, tumor lysis syndrome, breast ca, anemia, h/o DVT, s/p pancreatitis - Ventilatory support - Pulmonary toilets - Continue meds - Pressors as needed - OG tube feeding critical care 35 min
[2018-09-10] MEDS: Fluconazole IV 100mg/50 ml NS 50 ML IVPB SCH (08:47)
[2018-09-10] MEDS: Multivitamin With Minerals Tab PO SCH (08:49)
--- NOTE | 2018-09-10 09:08 | RAD ---
Date of service: 09/10/2018 HISTORY: intubated COMPARISON: 09/09/2018 FINDINGS: LUNGS: Diffuse bilateral interstitial infiltrates. PLEURA: No significant pleural effusion identified, no pneumothorax apparent. CARDIOVASCULAR: No aortic atherosclerotic calcification present. Normal cardiac size. No pulmonary vascular congestion. OSSEOUS STRUCTURES: No significant abnormalities. VISUALIZED UPPER ABDOMEN: Normal. OTHER FINDINGS: Tubes and catheters unchanged. IMPRESSION: Diffuse bilateral interstitial infiltrates. No significant change.
--- NOTE | 2018-09-10 10:38 | CP.PCM.PN ---
Subjective - Date & Time of Evaluation Date of Evaluation: 09/09/18 Time of Evaluation: 15:00 - Subjective Subjective: SEEN ON RENAL F/U IN ICU REMAINS INTUBATED AND SEDATED NOT RESPONDING TO VERBAL OR TACTILE STIMULI RENAL FUNCTION AND ELECTROLYTES ARE BETTER ALL PREVIOUS EMR REVIEWED Objective - Vital Signs/Intake and Output Vital Signs (last 24 hours): Temp Pulse Resp BP Pulse Ox 96.9 F L 108 H 17 110/60 100 09/10/18 08:00 09/10/18 08:00 09/10/18 08:00 09/10/18 08:00 09/10/18 08:00 Intake and Output: 09/10/18 09/10/18 06:59 18:59 Intake Total 970 Output Total 800 Balance 170 - Medications Medications: Current Medications Albuterol/Ipratropium (Duoneb 3 Mg/0.5 Mg (3 Ml) Ud) 3 ml INH RQID [facility] Last Admin: 09/10/18 07:28 Dose: 3 ml Allopurinol (Zyloprim) 600 mg NG DAILY [facility] Last Admin: 09/10/18 08:51 Dose: 600 mg Alprazolam (Xanax) 0.25 mg PO Q12 PRN PRN Reason: Anxiety Stop: 09/11/18 08:42 Apixaban (Eliquis) 5 mg PO BID [facility]; Protocol Last Admin: 09/06/18 17:08 Dose: Not Given Dimethicone (Proshield Plus Skin Protectant) 1 applic TOP Q8 [facility] Last Admin: 09/10/18 08:46 Dose: 1 applic Ferrous Gluconate (Fergon) 324 mg PO TID [facility] Last Admin: 09/10/18 08:48 Dose: 324 mg Furosemide (Lasix) 20 mg PO BID [facility] Last Admin: 09/06/18 17:10 Dose: Not Given Sodium Chloride (Sodium Chloride 0.9%) 1,000 mls @ 100 mls/hr IV .Q10H [facility] Last Admin: 09/10/18 05:00 Dose: 100 mls/hr Meropenem 1 gm/ Sodium (Chloride) 100 mls @ 100 mls/hr IVPB Q8 [facility]; Protocol Last Admin: 09/10/18 08:48 Dose: 100 mls/hr Vancomycin HCl 750 mg/ Sodium (Chloride) 250 mls @ 166.667 mls/hr IVPB Q12 [facility]; Protocol Last Admin: 09/10/18 08:49 Dose: 166.667 mls/hr Fluconazole (Diflucan Iv 100 Mg/50 Ml Ns) 50 mls @ 50 mls/hr IVPB DAILY [facility]; Protocol Last Admin: 09/10/18 08:47 Dose: 50 mls/hr Metoprolol Tartrate (Lopressor) 12.5 mg PO Q12 [facility] Last Admin: 09/06/18 21:59 Dose: Not Given Multivitamins/Minerals (Therapeutic-M Tab) 1 tab PO DAILY [facility] Last Admin: 09/10/18 08:49 Dose: 1 tab Sodium Bicarbonate (Sodium Bicarbonate Tab) 650 mg PO BID [facility] Last Admin: 09/10/18 08:49 Dose: 650 mg - Labs Labs: 09/10/18 05:35 09/09/18 05:30 PT 14.2 Seconds (9.8-13.1) H 09/08/18 04:25 INR 1.3 09/08/18 04:25 APTT 25.8 Seconds (25.6-37.1) 09/08/18 04:25 Assessment and Plan - Assessment and Plan (Free Text) Assessment: LOUIE PRE RENAL AZOTEMIA VS ATN ELECTROLYTES ARE OK VDRF BREAST CA WITH METS SEPSIS P : C/O CURRENT FLIUD AND ELECTROLYTES REPLACEMENT TRANSFUSE NEEDED IVAB
[2018-09-10] MEDS: Propofol 10 mg/ml 1,000 MG/100 ML VIAL IV SCH (18:37)
--- NOTE | 2018-09-10 21:46 | CP.PCM.PN ---
Subjective - Date & Time of Evaluation Date of Evaluation: 09/10/18 Time of Evaluation: 18:00 - Subjective Subjective: Vented Objective - Vital Signs/Intake and Output Vital Signs (last 24 hours): Temp Pulse Resp BP Pulse Ox 98.7 F 111 H 16 105/57 L 100 09/10/18 16:00 09/10/18 19:00 09/10/18 19:00 09/10/18 19:00 09/10/18 19:00 - Medications Medications: Current Medications Albuterol/Ipratropium (Duoneb 3 Mg/0.5 Mg (3 Ml) Ud) 3 ml INH RQID [facility] Last Admin: 09/10/18 19:08 Dose: 3 ml Allopurinol (Zyloprim) 600 mg NG DAILY [facility] Last Admin: 09/10/18 08:51 Dose: 600 mg Alprazolam (Xanax) 0.25 mg PO Q12 PRN PRN Reason: Anxiety Stop: 09/11/18 08:42 Apixaban (Eliquis) 5 mg PO BID [facility]; Protocol Last Admin: 09/06/18 17:08 Dose: Not Given Dimethicone (Proshield Plus Skin Protectant) 1 applic TOP Q8 [facility] Last Admin: 09/10/18 17:17 Dose: 1 applic Ferrous Gluconate (Fergon) 324 mg PO TID [facility] Last Admin: 09/10/18 17:14 Dose: 324 mg Furosemide (Lasix) 20 mg PO BID [facility] Last Admin: 09/06/18 17:10 Dose: Not Given Sodium Chloride (Sodium Chloride 0.9%) 1,000 mls @ 100 mls/hr IV .Q10H [facility] Last Admin: 09/10/18 05:00 Dose: 100 mls/hr Meropenem 1 gm/ Sodium (Chloride) 100 mls @ 100 mls/hr IVPB Q8 [facility]; Protocol Last Admin: 09/10/18 17:16 Dose: 100 mls/hr Vancomycin HCl 750 mg/ Sodium (Chloride) 250 mls @ 166.667 mls/hr IVPB Q12 [facility]; Protocol Last Admin: 09/10/18 21:38 Dose: 166.667 mls/hr Fluconazole (Diflucan Iv 100 Mg/50 Ml Ns) 50 mls @ 50 mls/hr IVPB DAILY [facility]; Protocol Last Admin: 09/10/18 08:47 Dose: 50 mls/hr Norepinephrine Bitartrate 8 mg (/ Dextrose) 258 mls @ 4.84 mls/hr IV .Q24H [facility]; Protocol Stop: 09/11/18 12:01 Last Admin: 09/10/18 12:43 Dose: 2.5 mcg/min, 4.84 mls/hr Metoprolol Tartrate (Lopressor) 12.5 mg PO Q12 [facility] Last Admin: 09/06/18 21:59 Dose: Not Given Multivitamins/Minerals (Therapeutic-M Tab) 1 tab PO DAILY [facility] Last Admin: 09/10/18 08:49 Dose: 1 tab Sodium Bicarbonate (Sodium Bicarbonate Tab) 650 mg PO BID [facility] Last Admin: 09/10/18 17:18 Dose: 650 mg - Labs Labs: 09/10/18 05:35 09/09/18 05:30 PT 14.2 Seconds (9.8-13.1) H 09/08/18 04:25 INR 1.3 09/08/18 04:25 APTT 25.8 Seconds (25.6-37.1) 09/08/18 04:25 - Head Exam Head Exam: ATRAUMATIC - Eye Exam Eye Exam: Normal appearance - ENT Exam ENT Exam: Mucous Membranes Dry - Respiratory Exam Respiratory Exam: Decreased Breath Sounds - Cardiovascular Exam Cardiovascular Exam: +S1, +S2 - GI/Abdominal Exam GI & Abdominal Exam: Normal Bowel Sounds - Extremities Exam Extremities Exam: Pedal Edema Assessment and Plan (1) Tumor lysis syndrome Assessment & Plan: resolving improving renal function, electrolytes improved Status: Acute (2) Thrombocytopenia Assessment & Plan: secondary to chemotherapy will repeat fibrinogen ?DIC transfusion support s/p 2 bags platelets Status: Acute (3) Anemia Assessment & Plan: chemotherapy, hematuria anticoagulation held transfusion support PRN Status: Acute (4) Pulmonary embolism Assessment & Plan: provoked from malignancy anticoagulation on hold for bleeding Status: Acute (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
[2018-09-11] MEDS: Meropenem 1 GM in Sodium Chloride 0.9% 100 ML IVPB SCH ×3 (00:41→17:15)
[2018-09-11] MEDS: Sodium Chloride 0.9% 1,000 ML IV SCH (00:45)
[2018-09-11] MEDS: Proshield Plus GEL TOP SCH ×3 (01:00→16:53)
[2018-09-11 04:10] LABS: ABG ALLEN TEST YES; ARTERIAL BLOOD GAS HCO3 23.6 mmol/L (21-28); ARTERIAL BLOOD GAS O2 SAT 98.9 % (95-98); ARTERIAL BLOOD GAS PCO2 42 mm/Hg (35-45); ARTERIAL BLOOD GAS PH 7.36 (7.35-7.45); ARTERIAL BLOOD GAS PO2 133 mm/Hg (80-100)
[2018-09-11 07:08] LABS: MEAN CELL VOLUME 90.3 fl (81.0-99.0); MEAN CORPUSCULAR HGB CONC 33.2 g/dL (33.0-37.0); RBC 2.44 Mil/uL (3.80-5.20); RED CELL DISTRIBUTION WIDTH 16.5 % (11.5-14.5)
[2018-09-11 07:18] LABS: WHITE BLOOD COUNT 1.6 K/uL (4.8-10.8)
[2018-09-11 07:19] LABS: HEMOGLOBIN 7.3 g/dL (12.0-16.0)
[2018-09-11 07:22] LABS: CALCIUM 8.2 mg/dL (8.4-10.2)
[2018-09-11] MEDS: Albuterol-Ipratrop 3 mg / 0.5 (3 ml) UD INH SCH ×2 (07:37→11:03)
[2018-09-11] MEDS: Fluconazole IV 100mg/50 ml NS 50 ML IVPB SCH (08:47)
[2018-09-11] MEDS: Multivitamin With Minerals Tab PO SCH (08:50)
--- NOTE | 2018-09-11 10:33 | RAD ---
Date of service: 09/11/2018 HISTORY: intubated COMPARISON: 09/10/2018. FINDINGS: Endotracheal tube terminates in the mid trachea. The nasogastric tube terminates in the stomach. The left IJV line terminates in the SVC. LUNGS: There is interval mild improved aeration in the lungs with persistent presumable pulmonary edema in the lungs, worse on the right. There is persistent moderate pulmonary venous congestion. PLEURA: Suspect layering effusions. No pneumothorax. CARDIOVASCULAR: Persistent mild cardiomegaly. No aortic atherosclerotic calcifications present. OSSEOUS STRUCTURES: Within normal limits for the patient's age. VISUALIZED UPPER ABDOMEN: Normal. OTHER FINDINGS: None. IMPRESSION: Interval mild improved aeration in the lungs with persistent presumable pulmonary edema, worse on the right. Suspect layering effusions. Stable position of support lines and tubes.
--- NOTE | 2018-09-11 10:37 | CP.PCM.PN ---
Subjective - Date & Time of Evaluation Date of Evaluation: 09/11/18 Time of Evaluation: 10:37 - Subjective Subjective: ID Note- Patient seen and examined today in ICU. remains on the vent and on pressor. also has soft stools as per nurse but not foul smelling. Objective - Vital Signs/Intake and Output Vital Signs (last 24 hours): Temp Pulse Resp BP Pulse Ox 97.8 F 110 H 15 118/64 100 09/11/18 08:00 09/11/18 08:00 09/11/18 08:00 09/11/18 08:00 09/11/18 08:00 Intake and Output: 09/11/18 09/11/18 06:59 18:59 Intake Total 1420 590 Output Total 350 Balance 1070 590 - Medications Medications: Current Medications Albuterol/Ipratropium (Duoneb 3 Mg/0.5 Mg (3 Ml) Ud) 3 ml INH RQID [facility] Last Admin: 09/11/18 07:37 Dose: 3 ml Allopurinol (Zyloprim) 600 mg NG DAILY [facility] Last Admin: 09/11/18 08:50 Dose: 600 mg Apixaban (Eliquis) 5 mg PO BID [facility]; Protocol Last Admin: 09/06/18 17:08 Dose: Not Given Dimethicone (Proshield Plus Skin Protectant) 1 applic TOP Q8 [facility] Last Admin: 09/11/18 08:52 Dose: 1 applic Ferrous Gluconate (Fergon) 324 mg PO TID [facility] Last Admin: 09/11/18 08:50 Dose: 324 mg Furosemide (Lasix) 20 mg PO BID [facility] Last Admin: 09/06/18 17:10 Dose: Not Given Sodium Chloride (Sodium Chloride 0.9%) 1,000 mls @ 100 mls/hr IV .Q10H [facility] Last Admin: 09/10/18 05:00 Dose: 100 mls/hr Meropenem 1 gm/ Sodium (Chloride) 100 mls @ 100 mls/hr IVPB Q8 [facility]; Protocol Last Admin: 09/11/18 08:48 Dose: 100 mls/hr Vancomycin HCl 750 mg/ Sodium (Chloride) 250 mls @ 166.667 mls/hr IVPB Q12 [facility]; Protocol Last Admin: 09/11/18 08:49 Dose: 166.667 mls/hr Fluconazole (Diflucan Iv 100 Mg/50 Ml Ns) 50 mls @ 50 mls/hr IVPB DAILY [facility]; Protocol Last Admin: 09/11/18 08:47 Dose: 50 mls/hr Norepinephrine Bitartrate 8 mg (/ Dextrose) 258 mls @ 9.68 mls/hr IV .Q24H [facility]; Protocol Stop: 09/11/18 19:29 Potassium Chloride (Potassium Chloride 10 Meq/100 Ml) 100 mls @ 100 mls/hr IVPB Q1 [facility] Stop: 09/11/18 10:59 Metoprolol Tartrate (Lopressor) 12.5 mg PO Q12 [facility] Last Admin: 09/06/18 21:59 Dose: Not Given Multivitamins/Minerals (Therapeutic-M Tab) 1 tab PO DAILY [facility] Last Admin: 09/11/18 08:50 Dose: 1 tab Sodium Bicarbonate (Sodium Bicarbonate Tab) 650 mg PO BID [facility] Last Admin: 09/11/18 08:50 Dose: 650 mg - Labs Labs: - Additional Findings Additional findings: - Constitutional Appears: Chronically Ill Additional comments: intubated and sedated - Eye Exam Eye Exam: PERRL - ENT Exam Additional comments: ET and OGT in place - Neck Exam Additional comments: supple - Respiratory Exam Additional comments: decreased breath sounds at bases On the vent - Cardiovascular Exam Cardiovascular Exam: Tachycardia, +S1, +S2 - GI/Abdominal Exam Additional comments: distended hypoactive BS umbilical region with mass like lesion with denuded skin , no pus, bloody discharge scant only - Extremities Exam Additional comments: b/l 1+ edema right posterior calf with multiple erythematous papules like lesion ( could be mets to the skin) - Neurological Exam Additional comments: sedated - Skin Additional comments: right breast entirely covered with fungating looking round erythematous lesions few have opened up and bleeding superfically - Additional Findings Additional findings: lines- ET and OG tube left chest mediport hardwick cath- draining bloody urine b/l hand peripheral IVL rectal tube with brown soft stools Laboratory Results - last 72 hr 09/06/18 09/09/18 09/09/18 16:27 05:25 05:30 WBC 5.0 D RBC 2.25 L Hgb 6.8 L Hct 20.4 L MCV 90.8 MCH 30.0 MCHC 33.1 RDW 17.4 H Plt Count 74 L D MPV 8.7 Neut % (Auto) 88.5 H Lymph % (Auto) 7.2 L Mckean % (Auto) 4.0 Eos % (Auto) 0.2 Baso % (Auto) 0.1 Neut # (Auto) 4.4 Lymph # (Auto) 0.4 L Mckean # (Auto) 0.2 Eos # (Auto) 0.0 Baso # (Auto) 0.0 pCO2 38 pO2 144 H HCO3 25.0 ABG pH 7.42 ABG Total CO2 25.8 ABG O2 Saturation 98.8 H ABG O2 Content 9.8 L ABG Base Excess 0.1 ABG Hemoglobin 6.9 L ABG Carboxyhemoglobin 0.7 POC ABG HHb (Measured) 1.2 ABG Methemoglobin 1.1 ABG O2 Capacity 9.9 L Frederic Test Yes ABG Potassium A-a O2 Difference 165.0 Hgb O2 Saturation 97.0 Glucose Lactate Vent Mode A/c Mechanical Rate 16 FiO2 50.0 Tidal Volume 400 PEEP 5 Sodium Potassium Chloride Carbon Dioxide Anion Gap BUN Creatinine Est GFR ( Amer) Est GFR (Non-Af Amer) Random Glucose Calcium Arterial Blood Potassium Blood Type A POSITIVE Antibody Screen Negative Crossmatch See Detail BBK History Checked Patient has bt 09/09/18 09/09/18 09/10/18 05:30 08:00 04:58 WBC RBC Hgb Hct MCV MCH MCHC RDW Plt Count MPV Neut % (Auto) Lymph % (Auto) Mckean % (Auto) Eos % (Auto) Baso % (Auto) Neut # (Auto) Lymph # (Auto) Mckean # (Auto) Eos # (Auto) Baso # (Auto) pCO2 40 pO2 134 H HCO3 23.4 ABG pH 7.37 ABG Total CO2 24.3 ABG O2 Saturation 100.7 H ABG O2 Content 12.3 L ABG Base Excess -2.0 ABG Hemoglobin 8.7 L ABG Carboxyhemoglobin 1.7 H POC ABG HHb (Measured) -0.7 L ABG Methemoglobin 0.9 ABG O2 Capacity 12.2 L Frederic Test Yes ABG Potassium A-a O2 Difference 173.0 Hgb O2 Saturation 98.1 H Glucose Lactate Vent Mode A/c Mechanical Rate 16 FiO2 50.0 Tidal Volume 400 PEEP 5 Sodium 139 Potassium 4.4 Chloride 103 Carbon Dioxide 23 Anion Gap 17 BUN 82 H Creatinine 1.4 H Est GFR ( Amer) 46 Est GFR (Non-Af Amer) 38 Random Glucose 119 H Calcium 7.4 L Arterial Blood Potassium Blood Type A POSITIVE Antibody Screen Negative Crossmatch See Detail BBK History Checked Patient has bt 09/10/18 09/11/18 09/11/18 05:35 04:01 06:00 WBC 2.5 L 1.6 L* RBC 2.82 L 2.44 L Hgb 8.5 L 7.3 L Hct 25.4 L 22.0 L MCV 90.2 90.3 MCH 30.2 30.0 MCHC 33.5 33.2 RDW 16.0 H 16.5 H Plt Count 35 L D 15 L* D MPV Neut % (Auto) Lymph % (Auto) Mckean % (Auto) Eos % (Auto) Baso % (Auto) Neut # (Auto) Lymph # (Auto) Mckean # (Auto) Eos # (Auto) Baso # (Auto) pCO2 42 pO2 133 H HCO3 23.6 ABG pH 7.36 ABG Total CO2 25.0 ABG O2 Saturation 98.9 H ABG O2 Content ABG Base Excess -1.8 ABG Hemoglobin ABG Carboxyhemoglobin POC ABG HHb (Measured) ABG Methemoglobin ABG O2 Capacity Frederic Test Yes ABG Potassium 3.3 L A-a O2 Difference 171.0 Hgb O2 Saturation Glucose 119 H Lactate 0.7 Vent Mode A/c Mechanical Rate 14 FiO2 50.0 Tidal Volume 400 PEEP 5 Sodium 147.0 Potassium Chloride 119.0 H Carbon Dioxide Anion Gap BUN Creatinine Est GFR ( Amer) Est GFR (Non-Af Amer) Random Glucose Calcium Arterial Blood Potassium 3.3 L Blood Type Antibody Screen Crossmatch BBK History Checked 09/11/18 06:00 WBC RBC Hgb Hct MCV MCH MCHC RDW Plt Count MPV Neut % (Auto) Lymph % (Auto) Mckean % (Auto) Eos % (Auto) Baso % (Auto) Neut # (Auto) Lymph # (Auto) Mckean # (Auto) Eos # (Auto) Baso # (Auto) pCO2 pO2 HCO3 ABG pH ABG Total CO2 ABG O2 Saturation ABG O2 Content ABG Base Excess ABG Hemoglobin ABG Carboxyhemoglobin POC ABG HHb (Measured) ABG Methemoglobin ABG O2 Capacity Frederic Test ABG Potassium A-a O2 Difference Hgb O2 Saturation Glucose Lactate Vent Mode Mechanical Rate FiO2 Tidal Volume PEEP Sodium 146 Potassium 3.3 L Chloride 110 H Carbon Dioxide 23 Anion Gap 16 BUN 69 H Creatinine 1.2 Est GFR ( Amer) 55 Est GFR (Non-Af Amer) 46 Random Glucose 125 H Calcium 8.2 L Arterial Blood Potassium Blood Type Antibody Screen Crossmatch BBK History Checked Microbiology 09/07/18 Unknown Blood-Thru Central Line Blood Culture - Preliminary NO GROWTH AFTER 4 DAYS 09/07/18 Unknown Blood-Thru Central Line Blood Culture - Preliminary NO GROWTH AFTER 4 DAYS 09/08/18 11:49 Blood-Venous Blood Culture - Preliminary NO GROWTH AFTER 24 HOURS 09/08/18 11:49 Blood-Venous Blood Culture - Preliminary NO GROWTH AFTER 24 HOURS 09/07/18 09:07 Trachasp Gram Stain - Final 09/07/18 09:07 Trachasp Sputum Culture - Final Yeast Species 09/04/18 11:25 Naris MRSA Culture (Admit) - Final MRSA NOT DETECTED Accession No. : [id number] Patient Name / ID : RYLEE ONEIL / [id number] Exam Date : 09/11/2018 04:25:10 ( Approved ) Study Comment : Sex / Age : F / 58Y Creator : Krystle Miller MD Dictator : Krystle Miller MD Comb Setter : Manager Training : Krystle Miller MD Approver2 : Report Date : 09/11/2018 10:28:06 My Comment : Date of service: 09/11/2018 HISTORY: intubated COMPARISON: 09/10/2018. FINDINGS: Endotracheal tube terminates in the mid trachea. The nasogastric tube terminates in the stomach. The left IJV line terminates in the SVC. LUNGS: There is interval mild improved aeration in the lungs with persistent presumable pulmonary edema in the lungs, worse on the right. There is persistent moderate pulmonary venous congestion. PLEURA: Suspect layering effusions. No pneumothorax. CARDIOVASCULAR: Persistent mild cardiomegaly. No aortic atherosclerotic calcifications present. OSSEOUS STRUCTURES: Within normal limits for the patient's age. VISUALIZED UPPER ABDOMEN: Normal. OTHER FINDINGS: None. IMPRESSION: Interval mild improved aeration in the lungs with persistent presumable pulmonary edema, worse on the right. Suspect layering effusions. Stable position of support lines and tubes. 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 intubated and sedated. low grade fevers. ? infiltrates on CXR report. pancytopenic post chemo. now becoming leukopenic , not neutropneic yet. tumor lysis syndrome as well. blood cx- 09/07/2018- neg x 4 trach asp cx- yeast PLan- advise to continue with Iv Vancomycin for empiric staph coverage. advise to continue IV meropnem for broad spectrum gram negative coverage.day #4 continue with IV diflucan day #3. keep vanco trough <15. monitor absoluet PMN and if becomes 500 or less needs to be on neutropenic precautions as well. Prognosis poor. critical care time spent 40 minutes.
[2018-09-11] MEDS: Potassium CL 10mEq/100ml 100 ML IVPB SCH ×2 (10:39→12:18)
[2018-09-11] MEDS: Propofol 10 mg/ml 1,000 MG/100 ML VIAL IV SCH (12:22)
[2018-09-11] MEDS ORDERED: Propofol 10 mg/ml 1,000 MG/100 ML VIAL ONE (12:22)
--- NOTE | 2018-09-11 13:06 | PQF ---
PROVIDER RESPONSE TEXT: Sepsis present on admission REVIEWER QUERY TEXT: Clarification of Clinical Diagnostic Findings If in agreement please clarify if Sepsis was Present on Admission?--- and possible etiology if known OR: Disagree OR: Other explanation of clinical findings ABG Lactate: 4.6->1.2 Lactic Acid 4.0 WBC:20.6->28.9->21.3->14.5 U/A:cloudy , leuk anat WBC, crystals, bacteria Creatinine .: 1.2->--1.4-> 1.8 Pulse: 113->113->112->113->122->127->123 09/03 Observation->Med Surg and 09/05 Admit to [facility]:: ICU Admission order: Admitting dx.: Acute Hypoxemic Respiratory Failure H and P: current diagnose: not listed yet 09/06 Critical Care note: includes: 1.Acute hypoxemic Resp Failure, 2?bilat multi-lobar pneumonia 2.Hypotension / Hypovolemia with Azotemia 3.Severe Sepsis with shock, 2?Pneumonia, r/o bacteremia 4.Acute on Chronic disease Anemia 5. h/o DVT- bilat CFV on Aug 5. 6. s/p Paracentesis Fe 5 for 2.5 liters Plan: 1.Sputum Cx 2.Empiric abx coverage 3.Hold Eliquis (Bloody oral secretions and bloody urine, va ginal bleeding, unstable Hgb), PRBCs today to augment BP. 4.More volume expansion, additional LR 1000 ml ordered. 5.CT chest to evaluate interstitial opacities further. - ventilator The patient's Clinical Indicators include: ----- Query created by: Dayami Hood on 09/07/2018 11:47 AM Electronically signed by: Kristen Norris MD 09/11/2018 1:03 PM
--- NOTE | 2018-09-11 13:25 | PQF ---
PROVIDER RESPONSE TEXT: acute Systolic chf REVIEWER QUERY TEXT: Heart Failure Acuity and Type Acute Congestive Heart Failure is documented in the Medical Record. Please document the type if known : Such as: Type: -- Combined systolic and diastolic (heart failure with reduced ejection fraction and diastolic) dysfu nction -- Diastolic (HFpEF) -- Systolic (HFrEF) -- Left heart failure -- Right heart failure H and P includes: Acute CHF -- Right heart failure due to left heart failure -- High output failure -- End stage heart failure -- Other, please specify The patient's Clinical Indicators include: ---- Query created by: Dayami Hood on 09/08/2018 3:39 PM Electronically signed by: Kristen Norris MD 09/11/2018 1:22 PM
--- NOTE | 2018-09-11 18:42 | CP.PCM.PN ---
Subjective - Date & Time of Evaluation Date of Evaluation: 09/10/18 Time of Evaluation: 17:15 - Subjective Subjective: Seen and examined at the bed side. Patient Continue to bleed per Vaginal and Hemturia. Patient has been intubated for 3 Days. D/w the family in detail about the Poor prognosis associated with the patient's multiple Critical conditions: Objective - Vital Signs/Intake and Output Vital Signs (last 24 hours): Temp Pulse Resp BP Pulse Ox 98.6 F 108 H 18 104/47 L 100 09/11/18 17:58 09/11/18 17:58 09/11/18 17:58 09/11/18 17:58 09/11/18 17:58 Intake and Output: 09/11/18 09/11/18 06:59 18:59 Intake Total 1420 2158 Output Total 350 500 Balance 1070 1658 - Medications Medications: Current Medications Allopurinol (Zyloprim) 600 mg NG DAILY [facility] Last Admin: 09/11/18 08:50 Dose: 600 mg Apixaban (Eliquis) 5 mg PO BID [facility]; Protocol Last Admin: 09/06/18 17:08 Dose: Not Given Dimethicone (Proshield Plus Skin Protectant) 1 applic TOP Q8 [facility] Last Admin: 09/11/18 16:53 Dose: 1 applic Ferrous Gluconate (Fergon) 324 mg PO TID [facility] Last Admin: 09/11/18 16:52 Dose: 324 mg Furosemide (Lasix) 20 mg PO BID [facility] Last Admin: 09/06/18 17:10 Dose: Not Given Sodium Chloride (Sodium Chloride 0.9%) 1,000 mls @ 100 mls/hr IV .Q10H [facility] Last Admin: 09/10/18 05:00 Dose: 100 mls/hr Meropenem 1 gm/ Sodium (Chloride) 100 mls @ 100 mls/hr IVPB Q8 [facility]; Protocol Last Admin: 09/11/18 08:48 Dose: 100 mls/hr Vancomycin HCl 750 mg/ Sodium (Chloride) 250 mls @ 166.667 mls/hr IVPB Q12 [facility]; Protocol Last Admin: 09/11/18 08:49 Dose: 166.667 mls/hr Fluconazole (Diflucan Iv 100 Mg/50 Ml Ns) 50 mls @ 50 mls/hr IVPB DAILY [facility]; Protocol Last Admin: 09/11/18 08:47 Dose: 50 mls/hr Norepinephrine Bitartrate 8 mg (/ Dextrose) 258 mls @ 4.84 mls/hr IV .Q24H [facility] Stop: 09/12/18 10:46 Last Admin: 09/11/18 12:17 Dose: 4.84 mls/hr Metoprolol Tartrate (Lopressor) 12.5 mg PO Q12 [facility] Last Admin: 09/06/18 21:59 Dose: Not Given Multivitamins/Minerals (Therapeutic-M Tab) 1 tab PO DAILY [facility] Last Admin: 09/11/18 08:50 Dose: 1 tab Sodium Bicarbonate (Sodium Bicarbonate Tab) 650 mg PO BID [facility] Last Admin: 09/11/18 16:52 Dose: 650 mg - Labs Labs: 09/11/18 06:00 09/11/18 06:00 PT 14.2 Seconds (9.8-13.1) H 09/08/18 04:25 INR 1.3 09/08/18 04:25 APTT 25.8 Seconds (25.6-37.1) 09/08/18 04:25 Assessment and Plan (1) Acute respiratory failure with hypoxemia Status: Acute (2) Ascites, malignant Status: Acute (3) Congestive heart failure (CHF) Status: Acute (4) Stage IV breast cancer in female Status: Acute (5) Severe anemia Status: Resolved
--- NOTE | 2018-09-11 18:43 | CP.PCM.PN ---
Subjective - Date & Time of Evaluation Date of Evaluation: 09/11/18 Time of Evaluation: 10:00 - Subjective Subjective: Seen and examined at the bed side. Patient Continue to bleed per Vaginal and Hemturia. Patient has been intubated for 6 Days. D/w the family in detail about the Poor prognosis associated with the patient's multiple Critical conditions: Objective - Vital Signs/Intake and Output Vital Signs (last 24 hours): Temp Pulse Resp BP Pulse Ox 98.6 F 108 H 18 104/47 L 100 09/11/18 17:58 09/11/18 17:58 09/11/18 17:58 09/11/18 17:58 09/11/18 17:58 Intake and Output: 09/11/18 09/11/18 06:59 18:59 Intake Total 1420 2158 Output Total 350 500 Balance 1070 1658 - Medications Medications: Current Medications Allopurinol (Zyloprim) 600 mg NG DAILY [facility] Last Admin: 09/11/18 08:50 Dose: 600 mg Apixaban (Eliquis) 5 mg PO BID [facility]; Protocol Last Admin: 09/06/18 17:08 Dose: Not Given Dimethicone (Proshield Plus Skin Protectant) 1 applic TOP Q8 [facility] Last Admin: 09/11/18 16:53 Dose: 1 applic Ferrous Gluconate (Fergon) 324 mg PO TID [facility] Last Admin: 09/11/18 16:52 Dose: 324 mg Furosemide (Lasix) 20 mg PO BID [facility] Last Admin: 09/06/18 17:10 Dose: Not Given Sodium Chloride (Sodium Chloride 0.9%) 1,000 mls @ 100 mls/hr IV .Q10H [facility] Last Admin: 09/10/18 05:00 Dose: 100 mls/hr Meropenem 1 gm/ Sodium (Chloride) 100 mls @ 100 mls/hr IVPB Q8 [facility]; Protocol Last Admin: 09/11/18 08:48 Dose: 100 mls/hr Vancomycin HCl 750 mg/ Sodium (Chloride) 250 mls @ 166.667 mls/hr IVPB Q12 [facility]; Protocol Last Admin: 09/11/18 08:49 Dose: 166.667 mls/hr Fluconazole (Diflucan Iv 100 Mg/50 Ml Ns) 50 mls @ 50 mls/hr IVPB DAILY [facility]; Protocol Last Admin: 09/11/18 08:47 Dose: 50 mls/hr Norepinephrine Bitartrate 8 mg (/ Dextrose) 258 mls @ 4.84 mls/hr IV .Q24H ONE Stop: 09/12/18 10:46 Last Admin: 09/11/18 12:17 Dose: 4.84 mls/hr Metoprolol Tartrate (Lopressor) 12.5 mg PO Q12 [facility] Last Admin: 09/06/18 21:59 Dose: Not Given Multivitamins/Minerals (Therapeutic-M Tab) 1 tab PO DAILY [facility] Last Admin: 09/11/18 08:50 Dose: 1 tab Sodium Bicarbonate (Sodium Bicarbonate Tab) 650 mg PO BID [facility] Last Admin: 09/11/18 16:52 Dose: 650 mg - Labs Labs: 09/11/18 06:00 09/11/18 06:00 PT 14.2 Seconds (9.8-13.1) H 09/08/18 04:25 INR 1.3 09/08/18 04:25 APTT 25.8 Seconds (25.6-37.1) 09/08/18 04:25 Assessment and Plan (1) Acute respiratory failure with hypoxemia Status: Acute (2) Ascites, malignant Status: Acute (3) Congestive heart failure (CHF) Status: Acute (4) Stage IV breast cancer in female Status: Acute (5) Severe anemia Status: Resolved
--- NOTE | 2018-09-11 18:54 | CP.PCM.PN ---
Subjective - Date & Time of Evaluation Date of Evaluation: 09/11/18 Time of Evaluation: 15:00 - Subjective Subjective: SEEN ON RENAL F/U IN ICU RENAL FUNCTIN BETTER REMAINS INTUBATED .. BLEEDING .. 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 ALL PREVIOUS EMR REVIEWED Objective - Vital Signs/Intake and Output Vital Signs (last 24 hours): Temp Pulse Resp BP Pulse Ox 98.6 F 108 H 18 104/47 L 100 09/11/18 17:58 09/11/18 17:58 09/11/18 17:58 09/11/18 17:58 09/11/18 17:58 Intake and Output: 09/11/18 09/11/18 06:59 18:59 Intake Total 1420 2158 Output Total 350 500 Balance 1070 1658 - Medications Medications: Current Medications Allopurinol (Zyloprim) 600 mg NG DAILY [facility] Last Admin: 09/11/18 08:50 Dose: 600 mg Apixaban (Eliquis) 5 mg PO BID [facility]; Protocol Last Admin: 09/06/18 17:08 Dose: Not Given Dimethicone (Proshield Plus Skin Protectant) 1 applic TOP Q8 [facility] Last Admin: 09/11/18 16:53 Dose: 1 applic Ferrous Gluconate (Fergon) 324 mg PO TID [facility] Last Admin: 09/11/18 16:52 Dose: 324 mg Furosemide (Lasix) 20 mg PO BID [facility] Last Admin: 09/06/18 17:10 Dose: Not Given Sodium Chloride (Sodium Chloride 0.9%) 1,000 mls @ 100 mls/hr IV .Q10H [facility] Last Admin: 09/10/18 05:00 Dose: 100 mls/hr Meropenem 1 gm/ Sodium (Chloride) 100 mls @ 100 mls/hr IVPB Q8 [facility]; Protocol Last Admin: 09/11/18 08:48 Dose: 100 mls/hr Vancomycin HCl 750 mg/ Sodium (Chloride) 250 mls @ 166.667 mls/hr IVPB Q12 [facility]; Protocol Last Admin: 09/11/18 08:49 Dose: 166.667 mls/hr Fluconazole (Diflucan Iv 100 Mg/50 Ml Ns) 50 mls @ 50 mls/hr IVPB DAILY [facility]; Protocol Last Admin: 09/11/18 08:47 Dose: 50 mls/hr Norepinephrine Bitartrate 8 mg (/ Dextrose) 258 mls @ 4.84 mls/hr IV .Q24H ONE Stop: 09/12/18 10:46 Last Admin: 09/11/18 12:17 Dose: 4.84 mls/hr Metoprolol Tartrate (Lopressor) 12.5 mg PO Q12 [facility] Last Admin: 09/06/18 21:59 Dose: Not Given Multivitamins/Minerals (Therapeutic-M Tab) 1 tab PO DAILY [facility] Last Admin: 09/11/18 08:50 Dose: 1 tab Sodium Bicarbonate (Sodium Bicarbonate Tab) 650 mg PO BID [facility] Last Admin: 09/11/18 16:52 Dose: 650 mg - Labs Labs: 09/11/18 06:00 09/11/18 06:00 PT 14.2 Seconds (9.8-13.1) H 09/08/18 04:25 INR 1.3 09/08/18 04:25 APTT 25.8 Seconds (25.6-37.1) 09/08/18 04:25 Assessment and Plan - Assessment and Plan (Free Text) Assessment: LOUIE .. RENAL FUNCTION BETTER . ELECTROLYTES ABNORMALITIES .. THEY R OK NOW VDRF .. INTUBATED ORRALY SEPSIS ON IVAB BLEEDING .. ON TRANSFUSION BREAST CA WITH METS P : C/O CURRENT FLIUD AND ELECTROLYTES MANAGMENT C/O TPN C/O IVAB C/O TPN GUARDED PROGNOSIS
[2018-09-11 20:44] LABS: MEAN CELL VOLUME 91.3 fl (81.0-99.0); MEAN CORPUSCULAR HGB CONC 32.8 g/dL (33.0-37.0); RBC 2.5 Mil/uL (3.80-5.20); RED CELL DISTRIBUTION WIDTH 16.6 % (11.5-14.5); WHITE BLOOD COUNT 2.1 K/uL (4.8-10.8)
[2018-09-11 20:49] LABS: HEMOGLOBIN 7.5 g/dL (12.0-16.0)
--- NOTE | 2018-09-11 22:55 | PN ---
DATE: 09/11/2018 CRITICAL CARE PROGRESS NOTE LOCATION: The patient is in ICU, bed 427. TIME SPENT: 35 minutes. The patient is seen and evaluated at the bedside. Past medical, surgical, family and social history reviewed. Case was discussed in multidisciplinary ICU rounds this morning. SUBJECTIVE: A 58-year-old female with stage IV metastatic breast cancer, malignant pleural effusion, malignant ascites, peritoneal carcinomatosis and bony metastasis, status post chemo two days prior to the admission, admitted with shortness of breath. In the ER, the patient was found to be severely pancytopenic, received 1 unit of packed red blood cells, intubated on mechanical ventilation due to acute shortness of breath. Remains intubated, sedated on AC/PRVC rate 16, tidal volume 400, FiO2 of 50%, PEEP of 5; observed rate 18, observed tidal volume 540, minute ventilation 7 L, end-tidal CO2 of 25. PHYSICAL EXAMINATION: HEAD, EYES, EARS, NOSE AND THROAT: No icterus. Pupils are equal, 2-3 mm, reactive. No gaze preference. Mild ecchymosis noted around the lips. NECK: No visible JVD. Supple. No carotid bruit. HEART: Rhythm regular. S1 and S2 distant. No audible murmur. CHEST: Bilateral breath sounds, diminished in intensity. Dressing over right breast with serosanguineous fluid. Left chest Port-A-Cath present. ABDOMEN: Distended, tympanitic with positive fluid thrill. Serous fluid draining from the right upper quadrant old paracentesis site. Orellana in place. Flexi-Seal in place. EXTREMITIES: With 2+ edema. Ulcer on the posterior right calf, worse than left. No calf tenderness. NEURO: Withdraws to painful stimuli. Opens eyes on calling her name. SKIN: Without rash. CURRENT MEDICATIONS: Allopurinol 600 mg NG daily, Eliquis 5 mg p.o. twice daily, Proshield Plus skin protectant one application every 8 hours, ferrous gluconate 324 mg three times daily, fluconazole 100 mg IV daily, Lasix 20 mg p.o. twice daily, meropenem 100 mg IV every 8 hours, Lopressor 12.5 mg p.o. every 12 hours, Therapeutic-M one tablet daily, Levophed 2.5 mcg per minute, sodium bicarbonate 650 twice daily, sodium chloride at 100 mL/hour, vancomycin 750 mg every 12 hours. LABORATORY DATA: WBC 1.6, hemoglobin 7.3, hematocrit 22, platelet count 15. ABG: pH of 7.36, pCO2 of 42, pO2 of 133, saturation 98.9% on AC 14, 450%, PEEP 5. SMA-7: Sodium 140, potassium 3.3, chloride 110, CO2 of 23, blood urea nitrogen 69, creatinine 1.2, random glucose 125, calcium 8.2. Urinalysis: rbc 207, wbc 34. Toxicology: Vancomycin trough level 10.9. Chest x-ray done this morning shows stable position of support lines and tubes, interval mild improved aeration in the lungs with a persistent pulmonary edema, worse on the right side. IMPRESSION: 1. Neurologic: Alert and awake. Septic metabolic encephalopathy. 2. Respiratory: Acute respiratory failure with hypoxemia. Intubated on mechanical ventilation. Sedated on Diprivan drip. 3. Cardiac: Congestive heart failure with malignant pleural effusion. 4. Gastroenterology: Ascites worsening, malignant secondary to carcinomatosis, implant in the peritoneal cavity. 5. 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 Followed by Oncology. Status post chemotherapy with profound pancytopenia with white count 1.6, hemoglobin 7.3 and platelet count of 15. Closely monitor for further bleeding episode. 6. Gastroenterology: Malignant ascites worsening with compromising respiratory status. 7. Endocrinology. No history of hypothyroidism. Blood sugar is under control. 8. Infectious disease. Malignant pleural effusion, malignant ascites, superimposed fungal infection, status post chemotherapy two days prior to the admission. Prognosis remains guarded. On apixaban 5 mg p.o. twice daily. Closely monitor for further bleeding. 9. Renal: Prerenal azotemia. Maintain adequate hydration. Keep head of bed 30 degrees up. Orellana for inadequate intake and output and also to prevent from soiling, Flexi-Seal too. For prevention of skin breakdown Hill-[facility] pulmonary support bed to reduce sacral breakdown and infection. Javid Das MD
[2018-09-12] MEDS: Proshield Plus GEL TOP SCH ×3 (01:00→17:09)
[2018-09-12] MEDS: Meropenem 1 GM in Sodium Chloride 0.9% 100 ML IVPB SCH ×3 (03:02→17:08)
[2018-09-12 05:06] LABS: ABG ALLEN TEST YES; ARTERIAL BLOOD GAS HCO3 22.9 mmol/L (21-28); ARTERIAL BLOOD GAS O2 SAT 100.5 % (95-98); ARTERIAL BLOOD GAS PCO2 40 mm/Hg (35-45); ARTERIAL BLOOD GAS PH 7.36 (7.35-7.45); ARTERIAL BLOOD GAS PO2 133 mm/Hg (80-100); ARTERIAL BLOOD GAS TCO2 23.8 mmol/L (22-28)
[2018-09-12 06:31] LABS: BLOOD UREA NITROGEN 73 mg/dl (7-17); CALCIUM 8.2 mg/dL (8.4-10.2); GFR NON-AFRICAN AMERICAN 51
[2018-09-12] MEDS: Fluconazole IV 100mg/50 ml NS 50 ML IVPB SCH (08:05)
[2018-09-12] MEDS: Multivitamin With Minerals Tab PO SCH (08:14)
--- NOTE | 2018-09-12 09:10 | RAD ---
Date of service: 09/12/2018 HISTORY: intubated COMPARISON: Comparison made with prior chest radiograph 09/11/2018. FINDINGS: In situ ETT, tip of which lies approximately 2.9 cm above loren. In situ NGT, the tip of which overlies right upper quadrant of the abdomen. No change left IJ MediPort tip in the SVC/RA junction. LUNGS: Mild pulmonary venous congestive changes with bilateral alveolar-type infiltrates and bilateral effusions left greater than right. PLEURA: No significant pleural effusion identified, no pneumothorax apparent. CARDIOVASCULAR: No significant aortic atherosclerotic calcification present. Cardiomegaly. No pulmonary vascular congestion. OSSEOUS STRUCTURES: No significant abnormalities. VISUALIZED UPPER ABDOMEN: Normal. OTHER FINDINGS: None. IMPRESSION: Support lines and tubes as above. Mild pulmonary venous congestive changes with bilateral alveolar-type infiltrates and bilateral effusions left greater than right.
[2018-09-12] MEDS ORDERED: Potassium Chloride 20 mEq/15 ml LIQ UD PO ONE (09:29)
--- NOTE | 2018-09-12 09:34 | CP.CCUPN ---
CCU Subjective - Physician Review Subjective (Free Text): 09/05/18 16:35 The patient was Seen and examined by me at the bedside, Medical records reviewed and Management issues were discussed and formulated with the house staff. Events reviewed Patient is 58 years old female with past medical history of anemia, anxiety, CHF, deep venous thrombosis, peripheral edema, pulmonary embolism and stage IV advanced metastatic breast cancer Status post chemotherapy 2 days ago Who initially presented to the emergency room on 09/03 for evaluation of intermittent chest pain and shortness of breath for the past 2 days In the emergency room patient stated that this chest pain resolved and breathing got better On exam she was comfortable and was admitted to the medical service Transfused 1 unit of packed red blood cell for hemoglobin of 6.9 also of note Patient recently underwent paracentesis 09/04 Patient was transferred to the intensive care unit after [employer] was called for severe respiratory distress and hypoxemia and patient found to be confused and respiratory distress BP was stable but she was tachycardic, tachypneic and saturating 88% on non- rebreathing mask she is to receive a stat dose of IV Lasix and transferred to the intensive care unit Upon admitting to the to the ICU she was emergently intubated by anesthesia and mechanically ventilated Patient self extubated last night and she was in distress and she was reintubated Currently patient is orally intubated, mechanically ventilated and sedated with Diprivan @ 25mcg/kg/min. RASS -2 She looks comfortable and in no distress Improved oxygenation blood pressure is better on Levophed @ 7.5mcg/min. Afebrile, Most recent Blood C/S negative CCU Objective - Vital Signs / Intake & Output Vital Signs (Last 4 hours): Vital Signs Temp Pulse Resp BP Pulse Ox 09/12/18 09:00 98.2 F 110 H 16 101/57 L 100 09/12/18 07:49 99.2 F 121 H 18 115/66 100 09/12/18 07:47 99.3 F 110 H 20 115/66 09/12/18 07:00 114 H 15 108/63 100 09/12/18 06:48 99.7 F H 119 H 18 112/59 L 09/12/18 06:00 107 H 19 99/55 L 100 09/12/18 05:40 99.5 F 108 H 18 102/57 L Intake and Output (Last 8hrs): Intake & Output 02/18/19 02/19/19 02/19/19 22:59 06:59 14:59 Intake Total 1290 2062 270 Output Total 300 Balance 990 2062 270 Weight 127 lb Intake: IV 700 400 200 Intake, Piggyback 250 100 Tube Feeding 140 70 Blood Product 1352 Apheresis Plts Acda Lr 209 2nd Con Unit [id number] Apheresis Plts Acda Lr 168 3rd Con Unit [id number] Red Blood Cells Cpd As1 325 Lr Unit [id number] Free Water Flush 200 100 Other 110 Apheresis Plts Acda Lr 30 2nd Con Unit [id number] Apheresis Plts Acda Lr 50 3rd Con Unit [id number] Red Blood Cells Cpd As1 30 Lr Unit [id number] Output: Stool 300 Other: # Bowel Movements 250 - Physical Exam Head: Positive for: Atraumatic, Normocephalic Pupils: Positive for: PERRL Extroacular Muscles: Positive for: EOMI Conjunctiva: Positive for: Normal. Negative for: Injected, Icteric Ears: Positive for: Normal Mouth: Positive for: Moist Mucous Membranes Nose (Internal): Positive for: Normal Inspection Neck: Positive for: Normal Range of Motion, Trachea Midline. Negative for: Meningeal Signs, MIDLINE TENDERNESS, Paraspinal Tenderness, JVD, Lymphadenopathy, Bruit, Other Respiratory/Chest: Positive for: Good Air Exchange, Rales, Retracting, Rhonchi. Negative for: Respiratory Distress, Accessory Muscle Use, Wheezes, Tachypneic Cardiovascular: Positive for: Regular Rate and Rhythm, Normal S1, S2, Peripheal Pulses Present. Negative for: Murmurs, Irregular Rhythm, Tachycardic, Bradycardic Abdomen: Positive for: Distention, Normal Bowel Sounds. Negative for: Tenderness Breast/Axillary: Positive for: Other (fungating necrotic mass to Right Breast) Upper Extremity: Positive for: Edema, NORMAL PULSES. Negative for: Normal Inspection, Cyanosis Lower Extremity: Positive for: Edema, NORMAL PULSES. Negative for: Normal Inspection Psychiatric: Positive for: Other (Sedated and orally intubated). Negative for: Alert, Oriented x 3 - Medications Active Medications: Active Medications Generic Name Dose Route Start Last Admin Trade Name Freq PRN Reason Stop Dose Admin Allopurinol 600 mg 09/07/18 11:30 09/12/18 08:14 Zyloprim NG 600 mg DAILY GLADIS Administration Apixaban 5 mg 09/04/18 09:00 09/06/18 17:08 Eliquis PO Not Given BID [facility] Protocol Dimethicone 1 applic 09/06/18 17:00 09/12/18 08:19 Proshield Plus Skin Protectant TOP 1 applic Q8 GLADIS Administration Ferrous Gluconate 324 mg 09/04/18 09:00 09/12/18 08:14 Fergon PO 324 mg TID GLADIS Administration Furosemide 20 mg 09/04/18 09:00 09/06/18 17:10 Lasix PO Not Given BID [facility]1983 Meropenem 1 gm/ Sodium 100 mls @ 100 mls/hr 09/08/18 17:15 09/12/18 08:15 Chloride IVPB 100 mls/hr Q8 GLADIS Administration Protocol Vancomycin HCl 750 mg/ Sodium 250 mls @ 166.667 mls/hr 09/08/18 21:00 09/12 08:05 Chloride IVPB 166.667 mls/hr Q12 [facility] Administration Protocol Fluconazole 50 mls @ 50 mls/hr 09/09/18 11:30 09/12/18 08:05 Diflucan Iv 100 Mg/50 Ml Ns IVPB 50 mls/hr DAILY [facility] Administration Protocol Norepinephrine Bitartrate 8 mg 258 mls @ 4.84 mls/hr 09/11/18 10:47 09/11/18 12:17 / Dextrose IV 09/12/18 10:46 4.84 mls/hr .Q24H ONE Administration 2.5 MCG/MIN Metoprolol Tartrate 12.5 mg 09/03/18 23:45 09/06/18 21:59 Lopressor PO Not Given Q12 [facility] Multivitamins/Minerals 1 tab 09/04/18 09:00 09/12/18 08:14 Therapeutic-M Tab PO 1 tab DAILY GLADIS Administration Potassium Chloride 40 meq 09/12/18 09:29 Potassium Chloride Oral Soln PO 09/12/18 09:30 ONCE ONE Sodium Bicarbonate 650 mg 09/04/18 09:00 09/12/18 08:14 Sodium Bicarbonate Tab PO 650 mg BID GLADIS Administration - Patient Studies Lab Studies: Microbiology Studies 09/07/18 Unknown Blood Culture - Final Blood-Thru Central Line NO GROWTH AFTER 5 DAYS Gram Stain - Final TEST NOT PERFORMED 09/07/18 Unknown Blood Culture - Final Blood-Thru Central Line NO GROWTH AFTER 5 DAYS Gram Stain - Final TEST NOT PERFORMED 09/08/18 11:49 Blood Culture - Preliminary Blood-Venous NO GROWTH AFTER 48 HOURS 09/08/18 11:49 Blood Culture - Preliminary Blood-Venous NO GROWTH AFTER 48 HOURS Lab Studies 09/12/18 09/12/18 09/11/18 Range/Units 05:30 04:51 20:30 WBC 2.1 L (4.8-10.8) K/uL RBC 2.50 L (3.80-5.20) Mil/uL Hgb 7.5 L (12.0-16.0) g/dL Hct 22.8 L (34.0-47.0) % MCV 91.3 (81.0-99.0) fl MCH 30.0 (27.0-31.0) pg MCHC 32.8 L (33.0-37.0) g/dL RDW 16.6 H (11.5-14.5) % Plt Count 8 L* D (130-400) K/uL pCO2 40 (35-45) mm/Hg pO2 133 H (80-100) mm/Hg HCO3 22.9 (21-28) mmol/L ABG pH 7.36 (7.35-7.45) ABG Total CO2 23.8 (22-28) mmol/L ABG O2 Saturation 100.5 H (95-98) % ABG Base Excess -2.7 L (-2.0-3.0) mmol/L Frederic Test Yes ABG Potassium 3.2 L (3.6-5.2) mmol/L A-a O2 Difference 174.0 mm/Hg Sodium 147 146.0 (132-148) mmol/L Chloride 112 H 121.0 H (98-107) mmol/L Glucose 123 H (65-105) mg/dL Lactate 0.8 (0.7-2.1) mmol/L Vent Mode A/c Mechanical Rate 16 FiO2 50.0 % Tidal Volume 400 PEEP 5 Potassium 3.2 L (3.6-5.0) MMOL/L Carbon Dioxide 24 (22-30) mmol/L Anion Gap 14 (10-20) BUN 73 H (7-17) mg/dl Creatinine 1.1 (0.7-1.2) mg/dl Est GFR ( Amer) > 60 Est GFR (Non-Af Amer) 51 Random Glucose 122 H (65-105) mg/dL Calcium 8.2 L (8.4-10.2) mg/dL Arterial Blood Potassium 3.2 L (3.6-5.2) mmol/L Blood Type Antibody Screen Crossmatch BBK History Checked 09/11/18 Range/Units 20:30 WBC (4.8-10.8) K/uL RBC (3.80-5.20) Mil/uL Hgb (12.0-16.0) g/dL Hct (34.0-47.0) % MCV (81.0-99.0) fl MCH (27.0-31.0) pg MCHC (33.0-37.0) g/dL RDW (11.5-14.5) % Plt Count (130-400) K/uL pCO2 (35-45) mm/Hg pO2 (80-100) mm/Hg HCO3 (21-28) mmol/L ABG pH (7.35-7.45) ABG Total CO2 (22-28) mmol/L ABG O2 Saturation (95-98) % ABG Base Excess (-2.0-3.0) mmol/L Frederic Test ABG Potassium (3.6-5.2) mmol/L A-a O2 Difference mm/Hg Sodium (132-148) mmol/L Chloride (98-107) mmol/L Glucose (65-105) mg/dL Lactate (0.7-2.1) mmol/L Vent Mode Mechanical Rate FiO2 % Tidal Volume PEEP Potassium (3.6-5.0) MMOL/L Carbon Dioxide (22-30) mmol/L Anion Gap (10-20) BUN (7-17) mg/dl Creatinine (0.7-1.2) mg/dl Est GFR ( Amer) Est GFR (Non-Af Amer) Random Glucose (65-105) mg/dL Calcium (8.4-10.2) mg/dL Arterial Blood Potassium (3.6-5.2) mmol/L Blood Type A POSITIVE Antibody Screen Negative Crossmatch See Detail BBK History Checked Patient has bt Laboratory Results - last 24 hr 09/11/18 09/11/18 09/12/18 20:30 20:30 04:51 WBC 2.1 L RBC 2.50 L Hgb 7.5 L Hct 22.8 L MCV 91.3 MCH 30.0 MCHC 32.8 L RDW 16.6 H Plt Count 8 L* D pCO2 40 pO2 133 H HCO3 22.9 ABG pH 7.36 ABG Total CO2 23.8 ABG O2 Saturation 100.5 H ABG Base Excess -2.7 L Frederic Test Yes ABG Potassium 3.2 L A-a O2 Difference 174.0 Sodium 146.0 Chloride 121.0 H Glucose 123 H Lactate 0.8 Vent Mode A/c Mechanical Rate 16 FiO2 50.0 Tidal Volume 400 PEEP 5 Potassium Carbon Dioxide Anion Gap BUN Creatinine Est GFR ( Amer) Est GFR (Non-Af Amer) Random Glucose Calcium Arterial Blood Potassium 3.2 L Blood Type A POSITIVE Antibody Screen Negative Crossmatch See Detail BBK History Checked Patient has bt 09/12/18 05:30 WBC RBC Hgb Hct MCV MCH MCHC RDW Plt Count pCO2 pO2 HCO3 ABG pH ABG Total CO2 ABG O2 Saturation ABG Base Excess Frederic Test ABG Potassium A-a O2 Difference Sodium 147 Chloride 112 H Glucose Lactate Vent Mode Mechanical Rate FiO2 Tidal Volume PEEP Potassium 3.2 L Carbon Dioxide 24 Anion Gap 14 BUN 73 H Creatinine 1.1 Est GFR ( Amer) > 60 Est GFR (Non-Af Amer) 51 Random Glucose 122 H Calcium 8.2 L Arterial Blood Potassium Blood Type Antibody Screen Crossmatch BBK History Checked Radiology Impressions: Radiology Impressions Chest X-Ray 09/11/18 05:00 IMPRESSION: Interval mild improved aeration in the lungs with persistent presumable pulmonary edema, worse on the right. Suspect layering effusions. Stable position of support lines and tubes. Chest X-Ray 09/12/18 05:00 IMPRESSION: Support lines and tubes as above. Mild pulmonary venous congestive changes with bilateral alveolar-type infiltrates and bilateral effusions left greater than right. Assessment/Plan (1) Congestive heart failure (CHF) Current Visit: Yes Status: Acute Priority: High Comment: Intubated for hypoxemic respiratory failure strict I&O, Maintian negative fluid balance Continue diuresis as blood pressure permits We will start spontaneous breathing trial with SAT/SBT when clinically improved and volume status stable (2) Anemia Current Visit: Yes Status: Acute Priority: High Comment: Anemia is likely multifactorial from chronic disease and malignancy No signs of active bleeding at that time Transfuse as needed Hematology oncology consult appreciated (3) DVT of lower extremity, bilateral Current Visit: Yes Status: Acute Priority: High Comment: Patient with H/O provoked DVT and Pulmonary embolism Continue Apixaban (Eliquis) if okay for ohematology (4) Ascites Current Visit: No Status: Acute (5) Elevated brain natriuretic peptide (BNP) level Current Visit: No Status: Acute Priority: High (6) Pulmonary embolism on left Current Visit: No Status: Acute (7) S/P thoracentesis Current Visit: No Status: Acute (8) Breast CA Current Visit: Yes Status: Acute Priority: High
[2018-09-12 11:57] LABS: HEMOGLOBIN 6.6 g/dL (12.0-16.0); MEAN CELL VOLUME 91.5 fl (81.0-99.0); MEAN CORPUSCULAR HEMOGLOBIN 30.4 pg (27.0-31.0); MEAN CORPUSCULAR HGB CONC 33.3 g/dL (33.0-37.0); RBC 2.16 Mil/uL (3.80-5.20); RED CELL DISTRIBUTION WIDTH 16.7 % (11.5-14.5); WHITE BLOOD COUNT 3.9 K/uL (4.8-10.8)
[2018-09-12] MEDS ORDERED: Propofol 10 mg/ml 1,000 MG/100 ML VIAL IV SCH (20:00)
--- NOTE | 2018-09-12 21:50 | CP.PCM.PN ---
Subjective - Date & Time of Evaluation Date of Evaluation: 09/12/18 Time of Evaluation: 15:00 - Subjective Subjective: SEEN ON RENAL F/U IN ICU RENAL FUNCTION BETTER .. PRE RENAL PICTURE The patient was Seen and examined by me at the bedside, Medical records reviewed and Management issues were discussed and formulated with the house staff. Events reviewed Patient is 58 years old female with past medical history of anemia, anxiety, CHF , deep venous thrombosis, peripheral edema, pulmonary embolism and stage IV advanced metastatic breast cancer Status post chemotherapy 2 days ago Who initially presented to the emergency room on 09/03 for evaluation of intermittent chest pain and shortness of breath for the past 2 days In the emergency room patient stated that this chest pain resolved and breathing got better On exam she was comfortable and was admitted to the medical service Transfused 1 unit of packed red blood cell for hemoglobin of 6.9 also of note Patient recently underwent paracentesis 09/04 Patient was transferred to the intensive care unit after [employer]TER was called for severe respiratory distress and hypoxemia and patient found to be confused and respiratory distress BP was stable but she was tachycardic, tachypneic and saturating 88% on non- rebreathing mask she is to receive a stat dose of IV Lasix and transferred to the intensive care unit Upon admitting to the to the ICU she was emergently intubated by anesthesia and mechanically ventilated Patient self extubated last night and she was in distress and she was reintubated Currently patient is orally intubated, mechanically ventilated and sedated with Diprivan @ 25mcg/kg/min. RASS -2 She looks comfortable and in no distress Improved oxygenation blood pressure is better on Levophed @ 7.5mcg/min. Afebrile, Most recent Blood C/S negative Objective - Vital Signs/Intake and Output Vital Signs (last 24 hours): Temp Pulse Resp BP Pulse Ox 98.2 F 99 H 15 91/55 L 100 09/12/18 20:00 09/12/18 20:00 09/12/18 20:00 09/12/18 20:00 09/12/18 20:00 Intake and Output: 09/12/18 09/13/18 18:59 06:59 Intake Total 1570 307 Output Total 550 Balance 1020 307 - Medications Medications: Current Medications Allopurinol (Zyloprim) 600 mg NG DAILY GLADIS Last Admin: 09/12/18 08:14 Dose: 600 mg Apixaban (Eliquis) 5 mg PO BID GLADIS; Protocol Last Admin: 09/06/18 17:08 Dose: Not Given Dimethicone (Proshield Plus Skin Protectant) 1 applic TOP Q8 GLADIS Last Admin: 09/12/18 17:09 Dose: 1 applic Ferrous Gluconate (Fergon) 324 mg PO TID GLADIS Last Admin: 09/12/18 16:56 Dose: 324 mg Furosemide (Lasix) 20 mg PO BID GLADIS Last Admin: 09/06/18 17:10 Dose: Not Given Meropenem 1 gm/ Sodium (Chloride) 100 mls @ 100 mls/hr IVPB Q8 GLADIS; Protocol Last Admin: 09/12/18 17:08 Dose: 100 mls/hr Vancomycin HCl 750 mg/ Sodium (Chloride) 250 mls @ 166.667 mls/hr IVPB Q12 GLADIS; Protocol Last Admin: 09/12/18 20:43 Dose: 166.667 mls/hr Fluconazole (Diflucan Iv 100 Mg/50 Ml Ns) 50 mls @ 50 mls/hr IVPB DAILY GLADIS; Protocol Last Admin: 09/12/18 08:05 Dose: 50 mls/hr Propofol (Diprivan) 1,000 mg in 100 mls @ 3.456 mls/hr IV .Q24H GLADIS; Protocol Stop: 09/13/18 19:46 Norepinephrine Bitartrate 8 mg (/ Dextrose) 258 mls @ 19.35 mls/hr IV .[id number]; Protocol Stop: 09/13/18 09:04 Last Admin: 09/12/18 20:44 Dose: 10 mcg/min, 19.35 mls/hr Metoprolol Tartrate (Lopressor) 12.5 mg PO Q12 GLADIS Last Admin: 09/06/18 21:59 Dose: Not Given Multivitamins/Minerals (Therapeutic-M Tab) 1 tab PO DAILY [facility] Last Admin: 09/12/18 08:14 Dose: 1 tab Sodium Bicarbonate (Sodium Bicarbonate Tab) 650 mg PO BID [facility] Last Admin: 09/12/18 17:10 Dose: 650 mg - Labs Labs: 09/12/18 11:49 09/12/18 05:30 PT 14.2 Seconds (9.8-13.1) H 09/08/18 04:25 INR 1.3 09/08/18 04:25 APTT 25.8 Seconds (25.6-37.1) 09/08/18 04:25 Assessment and Plan - Assessment and Plan (Free Text) Assessment: IMP : LOUIE MAINLY PRE RENAL ELECTROLYTES ABNORMALITIES VDRF BREAST CA WITH METS MMP SEPSIS P: C/O CURRENT CARE C/O PRESENT MANAGEMENT
--- NOTE | 2018-09-12 22:08 | CP.PCM.PN ---
Subjective - Date & Time of Evaluation Date of Evaluation: 09/11/18 Time of Evaluation: 12:00 - Subjective Subjective: Remains vented Objective - Vital Signs/Intake and Output Vital Signs (last 24 hours): Temp Pulse Resp BP Pulse Ox 98.2 F 117 H 17 102/49 L 100 09/12/18 20:00 09/12/18 22:00 09/12/18 22:00 09/12/18 22:00 09/12/18 22:00 Intake and Output: 09/12/18 09/13/18 18:59 06:59 Intake Total 1570 519 Output Total 550 Balance 1020 519 - Medications Medications: Current Medications Allopurinol (Zyloprim) 600 mg NG DAILY GLADIS Last Admin: 09/12/18 08:14 Dose: 600 mg Apixaban (Eliquis) 5 mg PO BID GLADIS; Protocol Last Admin: 09/06/18 17:08 Dose: Not Given Dimethicone (Proshield Plus Skin Protectant) 1 applic TOP Q8 GLADIS Last Admin: 09/12/18 17:09 Dose: 1 applic Ferrous Gluconate (Fergon) 324 mg PO TID GLADIS Last Admin: 09/12/18 16:56 Dose: 324 mg Furosemide (Lasix) 20 mg PO BID GLADIS Last Admin: 09/06/18 17:10 Dose: Not Given Meropenem 1 gm/ Sodium (Chloride) 100 mls @ 100 mls/hr IVPB Q8 GLADIS; Protocol Last Admin: 09/12/18 17:08 Dose: 100 mls/hr Vancomycin HCl 750 mg/ Sodium (Chloride) 250 mls @ 166.667 mls/hr IVPB Q12 GLADIS; Protocol Last Admin: 09/12/18 20:43 Dose: 166.667 mls/hr Fluconazole (Diflucan Iv 100 Mg/50 Ml Ns) 50 mls @ 50 mls/hr IVPB DAILY GLADIS; Protocol Last Admin: 09/12/18 08:05 Dose: 50 mls/hr Propofol (Diprivan) 1,000 mg in 100 mls @ 3.456 mls/hr IV .Q24H GLADIS; Protocol Stop: 09/13/18 19:46 Norepinephrine Bitartrate 8 mg (/ Dextrose) 258 mls @ 19.35 mls/hr IV .[id number] ONE; Protocol Stop: 09/13/18 09:04 Last Admin: 09/12/18 20:44 Dose: 10 mcg/min, 19.35 mls/hr Metoprolol Tartrate (Lopressor) 12.5 mg PO Q12 [facility] Last Admin: 09/06/18 21:59 Dose: Not Given Multivitamins/Minerals (Therapeutic-M Tab) 1 tab PO DAILY [facility] Last Admin: 09/12/18 08:14 Dose: 1 tab Sodium Bicarbonate (Sodium Bicarbonate Tab) 650 mg PO BID [facility] Last Admin: 09/12/18 17:10 Dose: 650 mg - Labs Labs: 09/12/18 11:49 09/12/18 05:30 PT 14.2 Seconds (9.8-13.1) H 09/08/18 04:25 INR 1.3 09/08/18 04:25 APTT 25.8 Seconds (25.6-37.1) 09/08/18 04:25 - Head Exam Head Exam: ATRAUMATIC - Eye Exam Eye Exam: Normal appearance - ENT Exam ENT Exam: Mucous Membranes Dry - Respiratory Exam Respiratory Exam: NORMAL BREATHING PATTERN - Cardiovascular Exam Cardiovascular Exam: +S1, +S2 - GI/Abdominal Exam GI & Abdominal Exam: Normal Bowel Sounds Assessment and Plan (1) Pancytopenia Assessment & Plan: secondary to chemotherapy prior hematuria transfusion support goal plt > 20,000 goal hgb above 7 Status: Acute (2) Pulmonary embolism Assessment & Plan: anticoagulation on hold for hematuria Status: Acute (3) Malignant mixed Mullerian tumor (MMMT) Assessment & Plan: outpatient chemotherapy Status: Acute
--- NOTE | 2018-09-12 22:13 | CP.PCM.PN ---
Subjective - Date & Time of Evaluation Date of Evaluation: 09/12/18 Time of Evaluation: 20:00 - Subjective Subjective: Vented Objective - Vital Signs/Intake and Output Vital Signs (last 24 hours): Temp Pulse Resp BP Pulse Ox 98.2 F 117 H 17 102/49 L 100 09/12/18 20:00 09/12/18 22:00 09/12/18 22:00 09/12/18 22:00 09/12/18 22:00 Intake and Output: 09/12/18 09/13/18 18:59 06:59 Intake Total 1570 519 Output Total 550 Balance 1020 519 - Medications Medications: Current Medications Allopurinol (Zyloprim) 600 mg NG DAILY [facility] Last Admin: 09/12/18 08:14 Dose: 600 mg Apixaban (Eliquis) 5 mg PO BID [facility]; Protocol Last Admin: 09/06/18 17:08 Dose: Not Given Dimethicone (Proshield Plus Skin Protectant) 1 applic TOP Q8 [facility] Last Admin: 09/12/18 17:09 Dose: 1 applic Ferrous Gluconate (Fergon) 324 mg PO TID [facility] Last Admin: 09/12/18 16:56 Dose: 324 mg Furosemide (Lasix) 20 mg PO BID [facility] Last Admin: 09/06/18 17:10 Dose: Not Given Meropenem 1 gm/ Sodium (Chloride) 100 mls @ 100 mls/hr IVPB Q8 [facility]; Protocol Last Admin: 09/12/18 17:08 Dose: 100 mls/hr Vancomycin HCl 750 mg/ Sodium (Chloride) 250 mls @ 166.667 mls/hr IVPB Q12 [facility]; Protocol Last Admin: 09/12/18 20:43 Dose: 166.667 mls/hr Fluconazole (Diflucan Iv 100 Mg/50 Ml Ns) 50 mls @ 50 mls/hr IVPB DAILY [facility]; Protocol Last Admin: 09/12/18 08:05 Dose: 50 mls/hr Propofol (Diprivan) 1,000 mg in 100 mls @ 3.456 mls/hr IV .Q24H [facility]; Protocol Stop: 09/13/18 19:46 Norepinephrine Bitartrate 8 mg (/ Dextrose) 258 mls @ 19.35 mls/hr IV .[id number] [facility]; Protocol Stop: 09/13/18 09:04 Last Admin: 09/12/18 20:44 Dose: 10 mcg/min, 19.35 mls/hr Metoprolol Tartrate (Lopressor) 12.5 mg PO Q12 [facility] Last Admin: 09/06/18 21:59 Dose: Not Given Multivitamins/Minerals (Therapeutic-M Tab) 1 tab PO DAILY [facility] Last Admin: 09/12/18 08:14 Dose: 1 tab Sodium Bicarbonate (Sodium Bicarbonate Tab) 650 mg PO BID [facility] Last Admin: 09/12/18 17:10 Dose: 650 mg - Labs Labs: 09/12/18 11:49 09/12/18 05:30 PT 14.2 Seconds (9.8-13.1) H 09/08/18 04:25 INR 1.3 09/08/18 04:25 APTT 25.8 Seconds (25.6-37.1) 09/08/18 04:25 - Head Exam Head Exam: ATRAUMATIC - Eye Exam Eye Exam: Normal appearance - ENT Exam ENT Exam: Mucous Membranes Dry - Respiratory Exam Respiratory Exam: NORMAL BREATHING PATTERN - Cardiovascular Exam Cardiovascular Exam: +S1, +S2 - GI/Abdominal Exam GI & Abdominal Exam: Normal Bowel Sounds - Extremities Exam Extremities Exam: Pedal Edema Assessment and Plan (1) Pancytopenia Assessment & Plan: secondary to chemotherapy transfusion support PRN transfuse if hgb below 7 and plt below 20,000 Status: Acute (2) Pulmonary embolism Assessment & Plan: anticoagulation on hold for hematuria Status: Acute (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
[2018-09-13] MEDS: Meropenem 1 GM in Sodium Chloride 0.9% 100 ML IVPB SCH ×3 (00:19→16:00)
[2018-09-13] MEDS: Proshield Plus GEL TOP SCH ×3 (02:20→16:00)
[2018-09-13 04:39] LABS: BASO % 0.1 % (0.0-2.0); EOS % 0.1 % (0.0-4.0); LYMPH # 0.6 K/uL (1.0-4.3); LYMPH % 10.6 % (20.0-40.0); MEAN CELL VOLUME 91.1 fl (81.0-99.0); MEAN CORPUSCULAR HEMOGLOBIN 30.1 pg (27.0-31.0); MEAN PLATELET VOLUME 8.3 fl (7.2-11.7); MONO # 0.4 K/uL (0.0-0.8); MONO % 6.6 % (0.0-10.0); NEUT # 4.5 K/uL (1.8-7.0); NEUT % 82.6 % (50.0-75.0); NRBC % 0.5 % (0.0-0.0); RBC 1.94 Mil/uL (3.80-5.20); WHITE BLOOD COUNT 5.5 K/uL (4.8-10.8)
[2018-09-13 04:46] LABS: HEMOGLOBIN 5.8 g/dL (12.0-16.0)
[2018-09-13 04:58] LABS: ALB/GLOB RATIO 0.8 (1.0-2.1); ALBUMIN 2.1 g/dL (3.5-5.0); CALCIUM 8.4 mg/dL (8.4-10.2); URIC ACID 5.1 mg/Dl (2.2-7.5)
[2018-09-13 05:16] LABS: INR 1.1; PROTHROMBIN TIME 12.8 Seconds (9.8-13.1)
[2018-09-13 05:18] LABS: PARTIAL THROMBOPLASTIN TIME 26.2 Seconds (25.6-37.1)
[2018-09-13 05:43] LABS: ABG ALLEN TEST YES; ARTERIAL BLOOD GAS HCO3 22.5 mmol/L (21-28); ARTERIAL BLOOD GAS HEMOGLOBIN 6.6 g/dL (11.7-17.4); ARTERIAL BLOOD GAS O2 CAPACITY 9.5 mL/dL (16-24); ARTERIAL BLOOD GAS O2 CONTENT 9.4 ML/dL (15-23); ARTERIAL BLOOD GAS PCO2 40 mm/Hg (35-45); ARTERIAL BLOOD GAS PH 7.35 (7.35-7.45); ARTERIAL BLOOD GAS PO2 143 mm/Hg (80-100); ARTERIAL BLOOD GAS TCO2 23.3 mmol/L (22-28)
[2018-09-13] MEDS: Fluconazole IV 100mg/50 ml NS 50 ML IVPB SCH (09:37)
--- NOTE | 2018-09-13 09:37 | RAD ---
Date of service: 09/13/2018 HISTORY: intubated COMPARISON: Portable chest 09/12/2018. FINDINGS: LUNGS: Endotracheal and nasogastric tubes are stable in position as well as left MediPort. Image appears captured and expiration. Crowding of the bronchovascular markings results. Nevertheless, improved mid to inferior left pulmonary infiltrate is noted as well as at the medial right base/right perihilar region. PLEURA: Minimal residual left pleural effusion. Borderline right pleural effusion. No pneumothorax bilaterally. CARDIOVASCULAR: No aortic atherosclerotic calcification present. Normal cardiac size. Slight improvement in pulmonary vascular congestion identified once again. OSSEOUS STRUCTURES: No significant abnormalities. VISUALIZED UPPER ABDOMEN: Normal. OTHER FINDINGS: None. IMPRESSION: Mild improvement in CHF with improved bilateral infiltrates as discussed above. Diminished left pleural effusion with limited residual. Trace right pleural effusion suspected.
[2018-09-13] MEDS: Multivitamin With Minerals Tab PO SCH (09:40)
--- NOTE | 2018-09-13 11:08 | CP.PCM.PN ---
Subjective - Date & Time of Evaluation Date of Evaluation: 09/13/18 Time of Evaluation: 11:08 - Subjective Subjective: ID Note- Patietn seen and examined today in ICU. remains on the vent and on pressors. Objective - Vital Signs/Intake and Output Vital Signs (last 24 hours): Temp Pulse Resp BP Pulse Ox 99.5 F 115 H 17 107/50 L 100 09/13/18 08:00 09/13/18 09:58 09/13/18 09:58 09/13/18 09:58 09/13/18 09:58 Intake and Output: 09/13/18 09/13/18 06:59 18:59 Intake Total 1222 605 Output Total 700 205 Balance 522 400 - Medications Medications: Current Medications Allopurinol (Zyloprim) 600 mg NG DAILY [facility] Last Admin: 09/13/18 09:41 Dose: 600 mg Apixaban (Eliquis) 5 mg PO BID [facility]; Protocol Last Admin: 09/06/18 17:08 Dose: Not Given Dimethicone (Proshield Plus Skin Protectant) 1 applic TOP Q8 [facility] Last Admin: 09/13/18 09:40 Dose: 1 applic Ferrous Gluconate (Fergon) 324 mg PO TID [facility] Last Admin: 09/13/18 09:39 Dose: 324 mg Furosemide (Lasix) 20 mg PO BID [facility] Last Admin: 09/06/18 17:10 Dose: Not Given Meropenem 1 gm/ Sodium (Chloride) 100 mls @ 100 mls/hr IVPB Q8 [facility]; Protocol Last Admin: 09/13/18 09:39 Dose: 100 mls/hr Vancomycin HCl 750 mg/ Sodium (Chloride) 250 mls @ 166.667 mls/hr IVPB Q12 [facility]; Protocol Last Admin: 09/13/18 09:40 Dose: 166.667 mls/hr Fluconazole (Diflucan Iv 100 Mg/50 Ml Ns) 50 mls @ 50 mls/hr IVPB DAILY [facility]; Protocol Last Admin: 09/13/18 09:37 Dose: 50 mls/hr Propofol (Diprivan) 1,000 mg in 100 mls @ 3.456 mls/hr IV .Q24H [facility]; Protocol Stop: 09/13/18 19:46 Last Admin: 09/13/18 00:23 Dose: 10 mcg/kg/min, 3.456 mls/hr Metoprolol Tartrate (Lopressor) 12.5 mg PO Q12 [facility] Last Admin: 09/06/18 21:59 Dose: Not Given Multivitamins/Minerals (Therapeutic-M Tab) 1 tab PO DAILY [facility] Last Admin: 09/13/18 09:40 Dose: 1 tab Sodium Bicarbonate (Sodium Bicarbonate Tab) 650 mg PO BID [facility] Last Admin: 09/13/18 09:40 Dose: 650 mg - Labs Labs: - Additional Findings Additional findings: - Constitutional Appears: Chronically Ill Additional comments: intubated and sedated - Eye Exam Eye Exam: PERRL - ENT Exam Additional comments: ET and OGT in place - Neck Exam Additional comments: supple - Respiratory Exam Additional comments: decreased breath sounds at bases On the vent - Cardiovascular Exam Cardiovascular Exam: Tachycardia, +S1, +S2 - GI/Abdominal Exam Additional comments: distended hypoactive BS umbilical region with mass like lesion with denuded skin , no pus, bloody discharge scant only - Extremities Exam Additional comments: b/l 1+ edema right posterior calf with multiple erythematous papules like lesion ( could be mets to the skin) - Neurological Exam Additional comments: sedated - Skin Additional comments: right breast entirely covered with fungating looking round erythematous lesions few have opened up and bleeding superfically - Additional Findings Additional findings: lines- ET and OG tube left chest mediport hardwick cath- draining bloody urine b/l hand peripheral IVL rectal tube with brown soft stools Laboratory Results - last 72 hr 09/11/18 09/11/18 09/11/18 04:01 06:00 06:00 WBC 1.6 L* RBC 2.44 L Hgb 7.3 L Hct 22.0 L MCV 90.3 MCH 30.0 MCHC 33.2 RDW 16.5 H Plt Count 15 L* D MPV Neut % (Auto) Lymph % (Auto) [place] % (Auto) Eos % (Auto) Baso % (Auto) Neut # (Auto) Lymph # (Auto) [place] # (Auto) Eos # (Auto) Baso # (Auto) PT INR APTT Fibrinogen pCO2 42 pO2 133 H HCO3 23.6 ABG pH 7.36 ABG Total CO2 25.0 ABG O2 Saturation 98.9 H ABG O2 Content ABG Base Excess -1.8 ABG Hemoglobin ABG Carboxyhemoglobin POC ABG HHb (Measured) ABG Methemoglobin ABG O2 Capacity Frederic Test Yes ABG Potassium 3.3 L A-a O2 Difference 171.0 Hgb O2 Saturation Sodium 147.0 146 Chloride 119.0 H 110 H Glucose 119 H Lactate 0.7 Vent Mode A/c Mechanical Rate 14 FiO2 50.0 Tidal Volume 400 PEEP 5 Potassium 3.3 L Carbon Dioxide 23 Anion Gap 16 BUN 69 H Creatinine 1.2 Est GFR ( Amer) 55 Est GFR (Non-Af Amer) 46 Random Glucose 125 H Lactic Acid Uric Acid Calcium 8.2 L Phosphorus Magnesium Total Bilirubin AST ALT Alkaline Phosphatase Total Protein Albumin Globulin Albumin/Globulin Ratio Arterial Blood Potassium 3.3 L Blood Type Antibody Screen Crossmatch BBK History Checked 09/11/18 09/11/18 09/12/18 20:30 20:30 04:51 WBC 2.1 L RBC 2.50 L Hgb 7.5 L Hct 22.8 L MCV 91.3 MCH 30.0 MCHC 32.8 L RDW 16.6 H Plt Count 8 L* D MPV Neut % (Auto) Lymph % (Auto) [place] % (Auto) Eos % (Auto) Baso % (Auto) Neut # (Auto) Lymph # (Auto) [place] # (Auto) Eos # (Auto) Baso # (Auto) PT INR APTT Fibrinogen pCO2 40 pO2 133 H HCO3 22.9 ABG pH 7.36 ABG Total CO2 23.8 ABG O2 Saturation 100.5 H ABG O2 Content ABG Base Excess -2.7 L ABG Hemoglobin ABG Carboxyhemoglobin POC ABG HHb (Measured) ABG Methemoglobin ABG O2 Capacity Frederic Test Yes ABG Potassium 3.2 L A-a O2 Difference 174.0 Hgb O2 Saturation Sodium 146.0 Chloride 121.0 H Glucose 123 H Lactate 0.8 Vent Mode A/c Mechanical Rate 16 FiO2 50.0 Tidal Volume 400 PEEP 5 Potassium Carbon Dioxide Anion Gap BUN Creatinine Est GFR ( Amer) Est GFR (Non-Af Amer) Random Glucose Lactic Acid Uric Acid Calcium Phosphorus Magnesium Total Bilirubin AST ALT Alkaline Phosphatase Total Protein Albumin Globulin Albumin/Globulin Ratio Arterial Blood Potassium 3.2 L Blood Type A POSITIVE Antibody Screen Negative Crossmatch See Detail BBK History Checked Patient has bt 09/12/18 09/12/18 09/13/18 05:30 11:49 04:35 WBC 3.9 L D 5.5 RBC 2.16 L 1.94 L Hgb 6.6 L 5.8 L* Hct 19.8 L 17.7 L MCV 91.5 91.1 MCH 30.4 30.1 MCHC 33.3 33.0 RDW 16.7 H 17.0 H Plt Count 53 L D 19 L* D MPV 8.3 Neut % (Auto) 82.6 H Lymph % (Auto) 10.6 L [place] % (Auto) 6.6 Eos % (Auto) 0.1 Baso % (Auto) 0.1 Neut # (Auto) 4.5 Lymph # (Auto) 0.6 L [place] # (Auto) 0.4 Eos # (Auto) 0.0 Baso # (Auto) 0.0 PT INR APTT Fibrinogen pCO2 pO2 HCO3 ABG pH ABG Total CO2 ABG O2 Saturation ABG O2 Content ABG Base Excess ABG Hemoglobin ABG Carboxyhemoglobin POC ABG HHb (Measured) ABG Methemoglobin ABG O2 Capacity Frederic Test ABG Potassium A-a O2 Difference Hgb O2 Saturation Sodium 147 Chloride 112 H Glucose Lactate Vent Mode Mechanical Rate FiO2 Tidal Volume PEEP Potassium 3.2 L Carbon Dioxide 24 Anion Gap 14 BUN 73 H Creatinine 1.1 Est GFR ( Amer) > 60 Est GFR (Non-Af Amer) 51 Random Glucose 122 H Lactic Acid Uric Acid Calcium 8.2 L Phosphorus Magnesium Total Bilirubin AST ALT Alkaline Phosphatase Total Protein Albumin Globulin Albumin/Globulin Ratio Arterial Blood Potassium Blood Type Antibody Screen Crossmatch BBK History Checked 09/13/18 09/13/18 09/13/18 04:35 04:35 04:35 WBC RBC Hgb Hct MCV MCH MCHC RDW Plt Count MPV Neut % (Auto) Lymph % (Auto) [place] % (Auto) Eos % (Auto) Baso % (Auto) Neut # (Auto) Lymph # (Auto) [place] # (Auto) Eos # (Auto) Baso # (Auto) PT 12.8 INR 1.1 APTT 26.2 Fibrinogen 304 pCO2 pO2 HCO3 ABG pH ABG Total CO2 ABG O2 Saturation ABG O2 Content ABG Base Excess ABG Hemoglobin ABG Carboxyhemoglobin POC ABG HHb (Measured) ABG Methemoglobin ABG O2 Capacity Frederic Test ABG Potassium A-a O2 Difference Hgb O2 Saturation Sodium 148 Chloride 115 H Glucose Lactate Vent Mode Mechanical Rate FiO2 Tidal Volume PEEP Potassium 3.5 L Carbon Dioxide 23 Anion Gap 14 BUN 75 H Creatinine 1.2 Est GFR ( Amer) 55 Est GFR (Non-Af Amer) 46 Random Glucose 108 H Lactic Acid 0.7 Uric Acid 5.1 Calcium 8.4 Phosphorus 4.6 H Magnesium 2.3 Total Bilirubin 0.7 AST 62 H D ALT 45 Alkaline Phosphatase 121 Total Protein 4.6 L Albumin 2.1 L Globulin 2.5 Albumin/Globulin Ratio 0.8 L Arterial Blood Potassium Blood Type Antibody Screen Crossmatch BBK History Checked 09/13/18 05:02 WBC RBC Hgb Hct MCV MCH MCHC RDW Plt Count MPV Neut % (Auto) Lymph % (Auto) [place] % (Auto) Eos % (Auto) Baso % (Auto) Neut # (Auto) Lymph # (Auto) [place] # (Auto) Eos # (Auto) Baso # (Auto) PT INR APTT Fibrinogen pCO2 40 pO2 143 H HCO3 22.5 ABG pH 7.35 ABG Total CO2 23.3 ABG O2 Saturation 99.0 H ABG O2 Content 9.4 L ABG Base Excess -3.2 L ABG Hemoglobin 6.6 L ABG Carboxyhemoglobin 0.7 POC ABG HHb (Measured) 1.0 ABG Methemoglobin 1.1 ABG O2 Capacity 9.5 L Frederic Test Yes ABG Potassium A-a O2 Difference 164.0 Hgb O2 Saturation 97.2 Sodium Chloride Glucose Lactate Vent Mode A/c Mechanical Rate 12 FiO2 50.0 Tidal Volume 400 PEEP 5 Potassium Carbon Dioxide Anion Gap BUN Creatinine Est GFR ( Amer) Est GFR (Non-Af Amer) Random Glucose Lactic Acid Uric Acid Calcium Phosphorus Magnesium Total Bilirubin AST ALT Alkaline Phosphatase Total Protein Albumin Globulin Albumin/Globulin Ratio Arterial Blood Potassium Blood Type Antibody Screen Crossmatch BBK History Checked Microbiology 09/08/18 11:49 Blood-Venous Blood Culture - Preliminary NO GROWTH AFTER 4 DAYS 09/08/18 11:49 Blood-Venous Blood Culture - Preliminary NO GROWTH AFTER 4 DAYS 09/07/18 Unknown Blood-Thru Central Line Blood Culture - Final NO GROWTH AFTER 5 DAYS 09/07/18 Unknown Blood-Thru Central Line Gram Stain - Final TEST NOT PERFORMED 09/07/18 Unknown Blood-Thru Central Line Blood Culture - Final NO GROWTH AFTER 5 DAYS 09/07/18 Unknown Blood-Thru Central Line Gram Stain - Final TEST NOT PERFORMED 09/07/18 09:07 Trachasp Gram Stain - Final 09/07/18 09:07 Trachasp Sputum Culture - Final Yeast Species 09/04/18 11:25 Naris MRSA Culture (Admit) - Final MRSA NOT DETECTED Accession No. : [id number] Patient Name / ID : RYLEE ONEIL / [id number] Exam Date : 09/13/2018 04:19:29 ( Approved ) Study Comment : Sex / Age : F / 58Y Creator : Syed Avalos MD Dictator : Syed Avalos MD Soda Drier Feeder : Mine Engineering Manager : Syed Avalos MD Approver2 : Report Date : 09/13/2018 09:32:30 My Comment : Date of service: 09/13/2018 HISTORY: intubated COMPARISON: Portable chest 09/12/2018. FINDINGS: LUNGS: Endotracheal and nasogastric tubes are stable in position as well as left MediPort. Image appears captured and expiration. Crowding of the bronchovascular markings results. Nevertheless, improved mid to inferior left pulmonary infiltrate is noted as well as at the medial right base/right perihilar region. PLEURA: Minimal residual left pleural effusion. Borderline right pleural effusion. No pneumothorax bilaterally. CARDIOVASCULAR: No aortic atherosclerotic calcification present. Normal cardiac size. Slight improvement in pulmonary vascular congestion identified once again. OSSEOUS STRUCTURES: No significant abnormalities. VISUALIZED UPPER ABDOMEN: Normal. OTHER FINDINGS: None. IMPRESSION: Mild improvement in CHF with improved bilateral infiltrates as discussed above. Diminished left pleural effusion with limited residual. Trace right pleural effusion suspected. 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 intubated and sedated. low grade fever at midnight. CXR as per report improved . leukopenia much improved today continues to have anemia and thrombocytopenia tumor lysis syndrome as well. blood cx- 09/07/2018- neg x 4 trach asp cx- yeast PLan- advise to continue with Iv Vancomycin for empiric staph coverage. advise to continue IV meropnem for broad spectrum gram negative coverage.day #6 continue with IV diflucan day #5. keep vanco trough <15. monitor absolute PMN and if becomes 500 or less needs to be on neutropenic precautions as well. Prognosis poor. critical care time spent 40 minutes.
--- NOTE | 2018-09-13 11:53 | CP.CCUPN ---
CCU Subjective - Physician Review Subjective (Free Text): On PROPOFOL Sedation on MV, RASS is at neg 3, breathing 17 on AC 16, TV 400ml, 50% PEEP 5. Remains on Levophed at 10 mcg dose, NSS at 100ml/hr, tolerating OGT feeds at 35 ml/hr. Afebrile, + temp spike last 24H to 101F, SBPs 90s to 110s with MAPs approx. 70s, HR 115, 17, 100% SPO2. Approx 1.5 liter positive fluid balance. NSS at 100ml/hr. No other distress noted. ROS: No other pertinent negs or positive on 10+ system review obtainable due to sedation. Other PMSFH: All other Nursing and physician documentation reviewed to date; no new pertinent info noted relevant to current medical problems. EXAM- HEENT: no icterus, pupils equal, 3 mm and reactive, no gaze preference NECK: no visible JVD, supple, carotids equal upstroke bilat/no bruits CHEST: decreased BS bases, no wheezes audible, bloody fluid drained dressing over R breast. Left chest portacath. HEART: regular, distant, tachy S1S2, no murmur audible, no rubs. ABD: soft, no increased distention, no focal tenderness, BS hypoactive, dried necrotic lesion over umbilicus unchanged. Serous fluid draining from RUQ old paracentesis site. EXT: ++ edema LEs, +ulcer posterior R calf worse than L, no calf tenderness or palpable cords, distal pulses intact and symmetrical NEURO: withdraws to pain stimuli, + tone SKIN: no rashes LABS: WBC= 5.5 HGB= 5.8 PLTs = 19K 7.35/40/143 Na= 148 K= 3.5 Cl= 115 HCO3= 23 BUN/Cr= 75/1.2 BS= 108 CXR: (my interp)- ETT position OK above loren. Poor inspiratory film, perihilar bilateral interstitial changes prominent. IMPRESSION / MAJOR PROBLEMS NOW: 1. Acute hypoxemic Resp Failure, 2 bilat multi-lobar pneumonia 2. Tumor Lysis Syndrome 3. Severe Sepsis with shock, 2 Pneumonia, r/o bacteremia 4. Acute on Chronic disease Anemia 5. h/o DVT- bilat CFV on Feb 5. 6. s/p Paracentesis Feb 5 for 2.5 liters PLAN: 1. Sputum Cx from Sep 07 shows +yeast, on empiric abx coverage with Vanco / Merrem, and Diflucan. Lactate level is normal today 2. Eliquis remains on hold (Bloody oral secretions and bloody urine, vaginal bleeding, unstable Hgb). Needs more PRBCs today. May need platelets too with ongoing vaginal bleeding and hematuria. Coags normal; Fib levels relatively stable. Discuss with Heme-Onc. 3. Reduce Allopurinol, keep hydrated. May need increase in free water. 4. Try to taper Levophed quickly if BP tolerates. 5. Day # 10 on MV, BP too unstable for any SBTs today. 6. Full resuscitative measures as per Family.
--- NOTE | 2018-09-13 16:42 | CP.PCM.PN ---
Subjective - Date & Time of Evaluation Date of Evaluation: 09/12/18 Time of Evaluation: 17:05 - Subjective Subjective: Seen and examined at the bed side. Patient Continue to bleed per Vaginal and Hemturia. Patient has been intubated for 7 Days. D/w the family in detail about the Poor prognosis associated with the patient's multiple Critical conditions: Objective - Vital Signs/Intake and Output Vital Signs (last 24 hours): Temp Pulse Resp BP Pulse Ox 97.0 F L 97 H 17 102/54 L 100 09/13/18 16:00 09/13/18 16:00 09/13/18 16:00 09/13/18 16:00 09/13/18 16:00 Intake and Output: 09/13/18 09/13/18 06:59 18:59 Intake Total 1222 2513 Output Total 700 780 Balance 522 1733 - Medications Medications: Current Medications Allopurinol (Zyloprim) 100 mg NG DAILY [facility] Apixaban (Eliquis) 5 mg PO BID [facility]; Protocol Last Admin: 09/06/18 17:08 Dose: Not Given Dimethicone (Proshield Plus Skin Protectant) 1 applic TOP Q8 [facility] Last Admin: 09/13/18 16:00 Dose: 1 applic Ferrous Gluconate (Fergon) 324 mg PO TID [facility] Last Admin: 09/13/18 16:00 Dose: 324 mg Furosemide (Lasix) 20 mg PO BID [facility] Last Admin: 09/06/18 17:10 Dose: Not Given Meropenem 1 gm/ Sodium (Chloride) 100 mls @ 100 mls/hr IVPB Q8 [facility]; Protocol Last Admin: 09/13/18 16:00 Dose: 100 mls/hr Vancomycin HCl 750 mg/ Sodium (Chloride) 250 mls @ 166.667 mls/hr IVPB Q12 [facility]; Protocol Last Admin: 09/13/18 09:40 Dose: 166.667 mls/hr Fluconazole (Diflucan Iv 100 Mg/50 Ml Ns) 50 mls @ 50 mls/hr IVPB DAILY [facility]; Protocol Last Admin: 09/13/18 09:37 Dose: 50 mls/hr Propofol (Diprivan) 1,000 mg in 100 mls @ 3.456 mls/hr IV .Q24H [facility]; Protocol Stop: 09/13/18 19:46 Last Admin: 09/13/18 00:23 Dose: 10 mcg/kg/min, 3.456 mls/hr Norepinephrine Bitartrate 8 mg (/ Dextrose) 258 mls @ 4.84 mls/hr IV .Q24H [facility] Stop: 09/14/18 13:33 Metoprolol Tartrate (Lopressor) 12.5 mg PO Q12 [facility] Last Admin: 09/06/18 21:59 Dose: Not Given Multivitamins/Minerals (Therapeutic-M Tab) 1 tab PO DAILY [facility] Last Admin: 09/13/18 09:40 Dose: 1 tab Sodium Bicarbonate (Sodium Bicarbonate Tab) 650 mg PO BID [facility] Last Admin: 09/13/18 16:00 Dose: 650 mg - Labs Labs: 09/13/18 04:35 09/13/18 04:35 PT 12.8 Seconds (9.8-13.1) 09/13/18 04:35 INR 1.1 09/13/18 04:35 APTT 26.2 Seconds (25.6-37.1) 09/13/18 04:35 Assessment and Plan (1) Acute respiratory failure with hypoxemia Status: Acute (2) Ascites, malignant Status: Acute (3) Congestive heart failure (CHF) Status: Acute (4) Stage IV breast cancer in female Status: Acute (5) Severe anemia Status: Resolved - Assessment and Plan (Free Text) Plan: Continue Care as per the ICU Rural Electrification Engineer Recommendations.
--- NOTE | 2018-09-13 16:47 | CP.PCM.PN ---
Subjective - Date & Time of Evaluation Date of Evaluation: 09/13/18 Time of Evaluation: 11:05 - Subjective Subjective: Seen and examined at the bed side. Patient Continue to bleed per Vaginal and Hemturia. Patient has been intubated for 7 Days. Continue to be Hypotensive, and on Levophed 10 mcg/min. Patient's son and mother at the bed side with RN, and d/w the family in detail about the Poor prognosis associated with the patient's multiple Critical co nditions: Acute Resp Failure, Pneumonia, Severe cardiomyopathy, Severe Sepsis, Severe Thrombocytopenia and Anemia, Bleeding, Stage IV Breast Cancer and Malignant Ascites, and family declined DNR and Palliative care. Informed the need for Tracheostomy if patient continue to be Intubated and unable to extubate. Objective - Vital Signs/Intake and Output Vital Signs (last 24 hours): Temp Pulse Resp BP Pulse Ox 97.0 F L 97 H 17 102/54 L 100 09/13/18 16:00 09/13/18 16:00 09/13/18 16:00 09/13/18 16:00 09/13/18 16:00 Intake and Output: 09/13/18 09/13/18 06:59 18:59 Intake Total 1222 2513 Output Total 700 780 Balance 522 1733 - Medications Medications: Current Medications Allopurinol (Zyloprim) 100 mg NG DAILY [facility] Apixaban (Eliquis) 5 mg PO BID [facility]; Protocol Last Admin: 09/06/18 17:08 Dose: Not Given Dimethicone (Proshield Plus Skin Protectant) 1 applic TOP Q8 [facility] [place] Last Admin: 09/13/18 16:00 Dose: 1 applic Ferrous Gluconate (Fergon) 324 mg PO TID [facility] Last Admin: 09/13/18 16:00 Dose: 324 mg Furosemide (Lasix) 20 mg PO BID [facility] [place] Last Admin: 09/06/18 17:10 Dose: Not Given Meropenem 1 gm/ Sodium (Chloride) 100 mls @ 100 mls/hr IVPB Q8 [facility]; Protocol Last Admin: 09/13/18 16:00 Dose: 100 mls/hr Vancomycin HCl 750 mg/ Sodium (Chloride) 250 mls @ 166.667 mls/hr IVPB Q12 [facility]; Protocol Last Admin: 09/13/18 09:40 Dose: 166.667 mls/hr Fluconazole (Diflucan Iv 100 Mg/50 Ml Ns) 50 mls @ 50 mls/hr IVPB DAILY [facility]; Protocol Last Admin: 09/13/18 09:37 Dose: 50 mls/hr Propofol (Diprivan) 1,000 mg in 100 mls @ 3.456 mls/hr IV .Q24H [facility]; Protocol Stop: 09/13/18 19:46 Last Admin: 09/13/18 00:23 Dose: 10 mcg/kg/min, 3.456 mls/hr Norepinephrine Bitartrate 8 mg (/ Dextrose) 258 mls @ 4.84 mls/hr IV .Q24H ONE Stop: 09/14/18 13:33 Metoprolol Tartrate (Lopressor) 12.5 mg PO Q12 [facility] Last Admin: 09/06/18 21:59 Dose: Not Given Multivitamins/Minerals (Therapeutic-M Tab) 1 tab PO DAILY [facility] Last Admin: 09/13/18 09:40 Dose: 1 tab Sodium Bicarbonate (Sodium Bicarbonate Tab) 650 mg PO BID [facility] Last Admin: 09/13/18 16:00 Dose: 650 mg - Labs Labs: 09/13/18 04:35 09/13/18 04:35 PT 12.8 Seconds (9.8-13.1) 09/13/18 04:35 INR 1.1 09/13/18 04:35 APTT 26.2 Seconds (25.6-37.1) 09/13/18 04:35 - ENT Exam Additional comments: Intubated and sedated Assessment and Plan (1) Acute respiratory failure with hypoxemia Status: Acute (2) Ascites, malignant Status: Acute (3) Congestive heart failure (CHF) Status: Acute (4) Stage IV breast cancer in female Status: Acute (5) Severe anemia Status: Resolved (6) DVT of lower extremity, bilateral Status: Acute (7) Thrombocytopenia Status: Acute - Assessment and Plan (Free Text) Plan: Continue Current Care Transfuse PRBCs and Platelets Oncologist, ID, Pulmonary and Principal Process Engineer onboard
--- NOTE | 2018-09-13 21:58 | CP.PCM.PN ---
Subjective - Date & Time of Evaluation Date of Evaluation: 09/13/18 Time of Evaluation: 15:00 - Subjective Subjective: SEEN ON RENAL F/U IN ICU REMAINS IN CRITICAT STATE PRE RENAL PICTURE WITH BUN 70 AND CREAT 1.2 ALL PREVIOUS EMR REVIEWED On PROPOFOL Sedation on MV, RASS is at neg 3, breathing 17 on AC 16, TV 400ml, 50% PEEP 5. Remains on Levophed at 10 mcg dose, NSS at 100ml/hr, tolerating OGT feeds at 35 ml/hr. Afebrile, + temp spike last 24H to 101F, SBPs 90s to 110s with MAPs approx. 70s, HR 115, 17, 100% SPO2. Approx 1.5 liter positive fluid balance. NSS at 100ml/hr. Objective - Vital Signs/Intake and Output Vital Signs (last 24 hours): Temp Pulse Resp BP Pulse Ox 98.5 F 6 L 16 106/58 L 100 09/13/18 20:00 09/13/18 21:00 09/13/18 21:00 09/13/18 21:00 09/13/18 21:00 Intake and Output: 09/13/18 09/14/18 18:59 06:59 Intake Total 2683 305 Output Total 1380 Balance 1303 305 - Medications Medications: Current Medications Allopurinol (Zyloprim) 100 mg NG DAILY [facility] Apixaban (Eliquis) 5 mg PO BID [facility]; Protocol Last Admin: 09/06/18 17:08 Dose: Not Given Dimethicone (Proshield Plus Skin Protectant) 1 applic TOP Q8 [facility] Last Admin: 09/13/18 16:00 Dose: 1 applic Ferrous Gluconate (Fergon) 324 mg PO TID [facility] Last Admin: 09/13/18 16:00 Dose: 324 mg Furosemide (Lasix) 20 mg PO BID [facility] Last Admin: 09/06/18 17:10 Dose: Not Given Meropenem 1 gm/ Sodium (Chloride) 100 mls @ 100 mls/hr IVPB Q8 [facility]; Protocol Last Admin: 09/13/18 16:00 Dose: 100 mls/hr Vancomycin HCl 750 mg/ Sodium (Chloride) 250 mls @ 166.667 mls/hr IVPB Q12 [facility]; Protocol Last Admin: 09/13/18 20:04 Dose: 166.667 mls/hr Fluconazole (Diflucan Iv 100 Mg/50 Ml Ns) 50 mls @ 50 mls/hr IVPB DAILY [facility]; Protocol Last Admin: 09/13/18 09:37 Dose: 50 mls/hr Norepinephrine Bitartrate 8 mg (/ Dextrose) 258 mls @ 4.84 mls/hr IV .Q24H ONE Stop: 09/14/18 13:33 Metoprolol Tartrate (Lopressor) 12.5 mg PO Q12 [facility] Last Admin: 09/06/18 21:59 Dose: Not Given Multivitamins/Minerals (Therapeutic-M Tab) 1 tab PO DAILY [facility] Last Admin: 09/13/18 09:40 Dose: 1 tab Sodium Bicarbonate (Sodium Bicarbonate Tab) 650 mg PO BID [facility] Last Admin: 09/13/18 16:00 Dose: 650 mg - Labs Labs: 09/13/18 04:35 09/13/18 04:35 PT 12.8 Seconds (9.8-13.1) 09/13/18 04:35 INR 1.1 09/13/18 04:35 APTT 26.2 Seconds (25.6-37.1) 09/13/18 04:35 Assessment and Plan - Assessment and Plan (Free Text) Assessment: ACK .. MAINLY PRE RENAL AZOTEMIA .. RENAL FUNCTION MUCH BETTER HYPER NATREMIA .. HYPOKALEMIA VDRF .. ON VENT SEPSIS BLEEDING FROM ALL ORIFICES .. H/H VERY LOW BREAST CA WITH METS MMP P : CHANGE IVF TO 1/2 NS AT 100 CC/H TRANSFUSE NEEDED C/O VASOPRESOR IVAB PER ID
[2018-09-14] MEDS: Meropenem 1 GM in Sodium Chloride 0.9% 100 ML IVPB SCH ×3 (00:06→17:56)
[2018-09-14] MEDS: Proshield Plus GEL TOP SCH ×4 (00:06→17:58)
[2018-09-14] MEDS ORDERED: Propofol 10 mg/ml 1,000 MG/100 ML VIAL IV SCH (04:00)
[2018-09-14 05:15] LABS: ABG ALLEN TEST YES; ARTERIAL BLOOD GAS HCO3 22.5 mmol/L (21-28); ARTERIAL BLOOD GAS HEMOGLOBIN 8.1 g/dL (11.7-17.4); ARTERIAL BLOOD GAS O2 CAPACITY 11.3 mL/dL (16-24); ARTERIAL BLOOD GAS O2 CONTENT 11.4 ML/dL (15-23); ARTERIAL BLOOD GAS O2 SAT 100.6 % (95-98); ARTERIAL BLOOD GAS PCO2 47 mm/Hg (35-45); ARTERIAL BLOOD GAS PO2 135 mm/Hg (80-100); ARTERIAL BLOOD GAS TCO2 24.5 mmol/L (22-28)
[2018-09-14 05:25] LABS: MEAN CELL VOLUME 89.3 fl (81.0-99.0); MEAN CORPUSCULAR HEMOGLOBIN 29.8 pg (27.0-31.0); MEAN CORPUSCULAR HGB CONC 33.3 g/dL (33.0-37.0); RBC 2.68 Mil/uL (3.80-5.20); RED CELL DISTRIBUTION WIDTH 16.3 % (11.5-14.5); WHITE BLOOD COUNT 10.1 K/uL (4.8-10.8)
[2018-09-14 05:35] LABS: BLOOD UREA NITROGEN 74 mg/dl (7-17); CALCIUM 8.5 mg/dL (8.4-10.2); GFR NON-AFRICAN AMERICAN 57
[2018-09-14] MEDS: Potassium CL 10 MEQ/50 ML 50 ML IVPB SCH ×4 (06:24→10:55)
--- NOTE | 2018-09-14 07:52 | RAD ---
Date of service: 09/14/2018 HISTORY: inubated COMPARISON: Portable chest 09/13/2018. FINDINGS: LUNGS: Endotracheal and nasogastric tubes are not significantly changed in position. Left MediPort unchanged in position as well. Low pulmonary volume again evident. Perihilar/medial basilar infiltrates persist and appears somewhat increased at the left and unchanged at the right. PLEURA: Minimal bilateral pleural effusions remain evident. No pneumothorax bilaterally. CARDIOVASCULAR: No aortic atherosclerotic calcification present. Normal cardiac size. No interval change in pulmonary vascular congestion noted. OSSEOUS STRUCTURES: No significant abnormalities. VISUALIZED UPPER ABDOMEN: Normal. OTHER FINDINGS: None. IMPRESSION: No interval change in pulmonary vascular congestion with related or independent bilateral infiltrates reiterated, but slightly increased at the left. Trace bilateral pleural effusions noted.
[2018-09-14] MEDS: Multivitamin With Minerals Tab PO SCH (08:13)
[2018-09-14] MEDS: Fluconazole IV 100mg/50 ml NS 50 ML IVPB SCH (09:36)
--- NOTE | 2018-09-14 12:30 | CP.CCUPN ---
CCU Subjective - Physician Review Subjective (Free Text): Still requiring sedation with Propofol, on10 mcg dose on MV, RASS is at neg 3, breathing 17 on AC 16, TV 400ml, 50% PEEP 5. Remains on Levophed at 10 mcg dose, NSS at 100ml/hr, dosages have not been able to be weaned downward. Afebrile, temps most;y 99F, SBPs 90s, HR 103, 17, 100% SPO2. Approx 1.6 liter positive fluid balance. NSS at 100ml/hr. No other distress noted. ROS: No other pertinent negs or positive on 10+ system review obtainable due to sedation. Other PMSFH: All other Nursing and physician documentation reviewed to date; no new pertinent info noted relevant to current medical problems. EXAM- HEENT: no icterus, pupils equal, 3 mm and reactive, no gaze preference NECK: no visible JVD, supple, carotids equal upstroke bilat/no bruits CHEST: decreased BS bases, no wheezes audible, bloody fluid drained dressing over R breast. Left chest portacath. HEART: regular, distant, tachy S1S2, no murmur audible, no rubs. ABD: soft, no increased distention, no focal tenderness, BS hypoactive, dried necrotic lesion over umbilicus unchanged. Serous fluid draining from RUQ old paracentesis site. EXT: ++ edema LEs, +ulcer posterior R calf worse than L, no calf tenderness or palpable cords, distal pulses intact and symmetrical NEURO: withdraws to pain stimuli, + tone SKIN: no rashes LABS: WBC= 10.1 HGB= 8.0 PLTs = 7K 7.30/47/135 Na= 150 K= 3.1 Cl= 117 HCO3= 24 BUN/Cr= 74/1.0 BS= 131 CXR: (my interp)- ETT position OK above loren. Poor inspiratory film again with low lung volumes vane on R, perihilar / bilateral interstitial changes prominent. IMPRESSION / MAJOR PROBLEMS NOW: 1. Acute hypoxemic Resp Failure, 2 bilat multi-lobar pneumonia 2. Tumor Lysis Syndrome 3. Severe Sepsis with shock, 2 Pneumonia, r/o bacteremia 4. Acute on Chronic disease Anemia 5. h/o DVT- bilat CFV on Feb 5. 6. s/p Paracentesis Feb 5 for 2.5 liters PLAN: 1. On empiric abx coverage with Vanco / Merrem, and Diflucan. 2. Paul remains on permanent hold (Bloody oral secretions and bloody urine, vaginal bleeding, unstable Hgb). Needs more Platelets today. 3. Reduced Allopurinol, keep hydrated. Will need increase in free water. K supplements ordered. Stop Saline IVFs, becoming hyperchloremic, consider switch to LR if volume expansion is needed. 4. Try to taper Levophed quickly if BP tolerates. 5. Day # 11 on MV, BP too unstable for any SBTs today. Family agreeable to trach as needed after discussion between PMD and family. 6. Full resuscitative measures remain as requested by Family.
--- NOTE | 2018-09-14 12:53 | CP.PCM.PN ---
Subjective - Date & Time of Evaluation Date of Evaluation: 09/14/18 Time of Evaluation: 12:53 - Subjective Subjective: Id Note- Aristidesn seen and examined today in ICU. pt. clinically better today. She opens her eyes when her name is called and moves her arms and legs when asked. her family is at her bedside. remains on the vent. Objective - Vital Signs/Intake and Output Vital Signs (last 24 hours): Temp Pulse Resp BP Pulse Ox 99.7 F H 116 H 18 99/54 L 100 09/14/18 12:19 09/14/18 12:19 09/14/18 12:19 09/14/18 12:09/14/18 12:00 Intake and Output: 09/14/18 09/14/18 06:59 18:59 Intake Total 1339 404 Output Total 1000 Balance 339 404 - Medications Medications: Current Medications Allopurinol (Zyloprim) 100 mg NG DAILY [facility] Last Admin: 09/14/18 08:13 Dose: 100 mg Apixaban (Eliquis) 5 mg PO BID [facility]; Protocol Last Admin: 09/06/18 17:08 Dose: Not Given Dimethicone (Proshield Plus Skin Protectant) 1 applic TOP Q8 [facility] Last Admin: 09/14/18 09:38 Dose: 1 applic Ferrous Gluconate (Fergon) 324 mg PO TID [facility] Last Admin: 09/14/18 08:16 Dose: 324 mg Furosemide (Lasix) 20 mg PO BID [facility] Last Admin: 09/06/18 17:10 Dose: Not Given Meropenem 1 gm/ Sodium (Chloride) 100 mls @ 100 mls/hr IVPB Q8 [facility]; Protocol Last Admin: 09/14/18 08:13 Dose: 100 mls/hr Vancomycin HCl 750 mg/ Sodium (Chloride) 250 mls @ 166.667 mls/hr IVPB Q12 [facility]; Protocol Last Admin: 09/14/18 11:06 Dose: Not Given Fluconazole (Diflucan Iv 100 Mg/50 Ml Ns) 50 mls @ 50 mls/hr IVPB DAILY [facility]; Protocol Last Admin: 09/14/18 09:36 Dose: 50 mls/hr Norepinephrine Bitartrate 8 mg (/ Dextrose) 258 mls @ 4.84 mls/hr IV .Q24H ONE Stop: 09/14/18 13:33 Propofol (Diprivan) 1,000 mg in 100 mls @ 3.266 mls/hr IV .Q24H [facility]; Protocol Stop: 09/15/18 03:48 Last Admin: 09/14/18 08:11 Dose: 10 mcg/kg/min, 3.266 mls/hr Norepinephrine Bitartrate 8 mg (/ Dextrose) 258 mls @ 19.35 mls/hr IV .[id number] [facility]; Protocol Stop: 09/14/18 17:07 Last Admin: 09/14/18 04:31 Dose: 10 mcg/min, 19.35 mls/hr Metoprolol Tartrate (Lopressor) 12.5 mg PO Q12 [facility] Last Admin: 09/06/18 21:59 Dose: Not Given Multivitamins/Minerals (Therapeutic-M Tab) 1 tab PO DAILY [facility] Last Admin: 09/14/18 08:13 Dose: 1 tab Sodium Bicarbonate (Sodium Bicarbonate Tab) 650 mg PO BID [facility] Last Admin: 09/14/18 08:12 Dose: 650 mg - Labs Labs: - Additional Findings Additional findings: - Constitutional Appears: Chronically Ill Additional comments: intubated and sedated - Eye Exam Eye Exam: PERRL - ENT Exam Additional comments: ET and OGT in place - Neck Exam Additional comments: supple - Respiratory Exam Additional comments: On the vent - Cardiovascular Exam Cardiovascular Exam: Tachycardia, +S1, +S2 - GI/Abdominal Exam Additional comments: distended, soft hypoactive BS umbilical region with mass like lesion with denuded skin , no pus, bloody discharge scant only - Extremities Exam Additional comments: b/l 1+ edema right posterior calf with multiple erythematous papules like lesion ( could be mets to the skin) - Neurological Exam Additional comments: more alert and responds to some commands and opens her eyes when her name is called - Skin Additional comments: right breast entirely covered with fungating looking round erythematous lesions few have opened up and bleeding superfically - Additional Findings Additional findings: lines- ET and OG tube left chest mediport hardwick cath- draining bloody urine b/l hand peripheral IVL rectal tube with brown soft stools Laboratory Results - last 72 hr 09/11/18 09/11/18 09/12/18 20:30 20:30 04:51 WBC 2.1 L RBC 2.50 L Hgb 7.5 L Hct 22.8 L MCV 91.3 MCH 30.0 MCHC 32.8 L RDW 16.6 H Plt Count 8 L* D MPV Neut % (Auto) Lymph % (Auto) [place]ro % (Auto) Eos % (Auto) Baso % (Auto) Neut # (Auto) Lymph # (Auto) [place] # (Auto) Eos # (Auto) Baso # (Auto) PT INR APTT Fibrinogen pCO2 40 pO2 133 H HCO3 22.9 ABG pH 7.36 ABG Total CO2 23.8 ABG O2 Saturation 100.5 H ABG O2 Content ABG Base Excess -2.7 L ABG Hemoglobin ABG Carboxyhemoglobin POC ABG HHb (Measured) ABG Methemoglobin ABG O2 Capacity Frederic Test Yes ABG Potassium 3.2 L A-a O2 Difference 174.0 Hgb O2 Saturation Sodium 146.0 Chloride 121.0 H Glucose 123 H Lactate 0.8 Vent Mode A/c Mechanical Rate 16 FiO2 50.0 Tidal Volume 400 PEEP 5 Potassium Carbon Dioxide Anion Gap BUN Creatinine Est GFR ( Amer) Est GFR (Non-Af Amer) Random Glucose Lactic Acid Uric Acid Calcium Phosphorus Magnesium Total Bilirubin AST ALT Alkaline Phosphatase Total Protein Albumin Globulin Albumin/Globulin Ratio Arterial Blood Potassium 3.2 L Vancomycin Trough Blood Type A POSITIVE Antibody Screen Negative Crossmatch See Detail BBK History Checked Patient has bt 09/12/18 09/12/18 09/13/18 05:30 11:49 04:35 WBC 3.9 L D 5.5 RBC 2.16 L 1.94 L Hgb 6.6 L 5.8 L* Hct 19.8 L 17.7 L MCV 91.5 91.1 MCH 30.4 30.1 MCHC 33.3 33.0 RDW 16.7 H 17.0 H Plt Count 53 L D 19 L* D MPV 8.3 Neut % (Auto) 82.6 H Lymph % (Auto) 10.6 L [place]ferro % (Auto) 6.6 Eos % (Auto) 0.1 Baso % (Auto) 0.1 Neut # (Auto) 4.5 Lymph # (Auto) 0.6 L [place]ro # (Auto) 0.4 Eos # (Auto) 0.0 Baso # (Auto) 0.0 PT INR APTT Fibrinogen pCO2 pO2 HCO3 ABG pH ABG Total CO2 ABG O2 Saturation ABG O2 Content ABG Base Excess ABG Hemoglobin ABG Carboxyhemoglobin POC ABG HHb (Measured) ABG Methemoglobin ABG O2 Capacity Frederic Test ABG Potassium A-a O2 Difference Hgb O2 Saturation Sodium 147 Chloride 112 H Glucose Lactate Vent Mode Mechanical Rate FiO2 Tidal Volume PEEP Potassium 3.2 L Carbon Dioxide 24 Anion Gap 14 BUN 73 H Creatinine 1.1 Est GFR ( Amer) > 60 Est GFR (Non-Af Amer) 51 Random Glucose 122 H Lactic Acid Uric Acid Calcium 8.2 L Phosphorus Magnesium Total Bilirubin AST ALT Alkaline Phosphatase Total Protein Albumin Globulin Albumin/Globulin Ratio Arterial Blood Potassium Vancomycin Trough Blood Type Antibody Screen Crossmatch BBK History Checked 09/13/18 09/13/18 09/13/18 04:35 04:35 04:35 WBC RBC Hgb Hct MCV MCH MCHC RDW Plt Count MPV Neut % (Auto) Lymph % (Auto) [place] % (Auto) Eos % (Auto) Baso % (Auto) Neut # (Auto) Lymph # (Auto) [place] # (Auto) Eos # (Auto) Baso # (Auto) PT 12.8 INR 1.1 APTT 26.2 Fibrinogen 304 pCO2 pO2 HCO3 ABG pH ABG Total CO2 ABG O2 Saturation ABG O2 Content ABG Base Excess ABG Hemoglobin ABG Carboxyhemoglobin POC ABG HHb (Measured) ABG Methemoglobin ABG O2 Capacity Frederic Test ABG Potassium A-a O2 Difference Hgb O2 Saturation Sodium 148 Chloride 115 H Glucose Lactate Vent Mode Mechanical Rate FiO2 Tidal Volume PEEP Potassium 3.5 L Carbon Dioxide 23 Anion Gap 14 BUN 75 H Creatinine 1.2 Est GFR ( Amer) 55 Est GFR (Non-Af Amer) 46 Random Glucose 108 H Lactic Acid 0.7 Uric Acid 5.1 Calcium 8.4 Phosphorus 4.6 H Magnesium 2.3 Total Bilirubin 0.7 AST 62 H D ALT 45 Alkaline Phosphatase 121 Total Protein 4.6 L Albumin 2.1 L Globulin 2.5 Albumin/Globulin Ratio 0.8 L Arterial Blood Potassium Vancomycin Trough Blood Type Antibody Screen Crossmatch BBK History Checked 09/13/18 09/14/18 09/14/18 05:02 04:30 04:30 WBC 10.1 D RBC 2.68 L Hgb 8.0 L D Hct 23.9 L MCV 89.3 MCH 29.8 MCHC 33.3 RDW 16.3 H Plt Count 7 L* D MPV Neut % (Auto) Lymph % (Auto) [place]ro % (Auto) Eos % (Auto) Baso % (Auto) Neut # (Auto) Lymph # (Auto) [place] # (Auto) Eos # (Auto) Baso # (Auto) PT INR APTT Fibrinogen pCO2 40 pO2 143 H HCO3 22.5 ABG pH 7.35 ABG Total CO2 23.3 ABG O2 Saturation 99.0 H ABG O2 Content 9.4 L ABG Base Excess -3.2 L ABG Hemoglobin 6.6 L ABG Carboxyhemoglobin 0.7 POC ABG HHb (Measured) 1.0 ABG Methemoglobin 1.1 ABG O2 Capacity 9.5 L Frederic Test Yes ABG Potassium A-a O2 Difference 164.0 Hgb O2 Saturation 97.2 Sodium Chloride Glucose Lactate Vent Mode A/c Mechanical Rate 12 FiO2 50.0 Tidal Volume 400 PEEP 5 Potassium Carbon Dioxide Anion Gap BUN Creatinine Est GFR ( Amer) Est GFR (Non-Af Amer) Random Glucose Lactic Acid Uric Acid Calcium Phosphorus Magnesium Total Bilirubin AST ALT Alkaline Phosphatase Total Protein Albumin Globulin Albumin/Globulin Ratio Arterial Blood Potassium Vancomycin Trough 36.1 H Blood Type Antibody Screen Crossmatch BBK History Checked 09/14/18 09/14/18 04:30 04:57 WBC RBC Hgb Hct MCV MCH MCHC RDW Plt Count MPV Neut % (Auto) Lymph % (Auto) [place]ro % (Auto) Eos % (Auto) Baso % (Auto) Neut # (Auto) Lymph # (Auto) [place] # (Auto) Eos # (Auto) Baso # (Auto) PT INR APTT Fibrinogen pCO2 47 H pO2 135 H HCO3 22.5 ABG pH 7.30 L ABG Total CO2 24.5 ABG O2 Saturation 100.6 H ABG O2 Content 11.4 L ABG Base Excess -3.2 L ABG Hemoglobin 8.1 L ABG Carboxyhemoglobin 1.8 H POC ABG HHb (Measured) -0.6 L ABG Methemoglobin 1.0 ABG O2 Capacity 11.3 L Frederic Test Yes ABG Potassium A-a O2 Difference 163.0 Hgb O2 Saturation 97.8 Sodium 150 H Chloride 117 H Glucose Lactate Vent Mode A/c Mechanical Rate 16 FiO2 50.0 Tidal Volume 400 PEEP 5 Potassium 3.1 L Carbon Dioxide 24 Anion Gap 12 BUN 74 H Creatinine 1.0 Est GFR ( Amer) > 60 Est GFR (Non-Af Amer) 57 Random Glucose 131 H Lactic Acid Uric Acid Calcium 8.5 Phosphorus Magnesium Total Bilirubin AST ALT Alkaline Phosphatase Total Protein Albumin Globulin Albumin/Globulin Ratio Arterial Blood Potassium Vancomycin Trough Blood Type Antibody Screen Crossmatch BBK History Checked Microbiology 09/08/18 11:49 Blood-Venous Blood Culture - Final NO GROWTH AFTER 5 DAYS 09/08/18 11:49 Blood-Venous Gram Stain - Final TEST NOT PERFORMED 09/08/18 11:49 Blood-Venous Blood Culture - Final NO GROWTH AFTER 5 DAYS 09/08/18 11:49 Blood-Venous Gram Stain - Final TEST NOT PERFORMED 09/07/18 Unknown Blood-Thru Central Line Blood Culture - Final NO GROWTH AFTER 5 DAYS 09/07/18 Unknown Blood-Thru Central Line Gram Stain - Final TEST NOT PERFORMED 09/07/18 Unknown Blood-Thru Central Line Blood Culture - Final NO GROWTH AFTER 5 DAYS 09/07/18 Unknown Blood-Thru Central Line Gram Stain - Final TEST NOT PERFORMED 09/07/18 09:07 Trachasp Gram Stain - Final 09/07/18 09:07 Trachasp Sputum Culture - Final Yeast Species 09/04/18 11:25 Naris MRSA Culture (Admit) - Final MRSA NOT DETECTED 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 remains intubated but is more alert today . low grade fever x once. CXR report noted. leukopenia much improved today continues to have anemia and thrombocytopenia tumor lysis syndrome better. blood cx- 09/07/2018- neg x 4 trach asp cx- yeast PLan- advise to hold today's vanco since trough was high. recheck trough in am and if <15 can redose. advise to continue IV meropnem for broad spectrum gram negative coverage.day #7 continue with IV diflucan day #6. monitor absolute PMN and if becomes 500 or less needs to be on neutropenic precautions as well. All labs and imaging and chart notes reviewed. d/w Taproom Attendant as well. critical care time spent 40 minutes.
--- NOTE | 2018-09-14 21:39 | CP.PCM.PN ---
Subjective - Date & Time of Evaluation Date of Evaluation: 09/14/18 Time of Evaluation: 15:00 - Subjective Subjective: SEEN IN ICU ON RENAL F/U MOM AND SON ON THE BED SIDE .. CASE D/W THEM I AM GLADE TO REPORT THAT HER RENAL FUNCTION IS STABLE STILL WITH HYPERNATREMIA AND PRE RENAL AZOTEMIA Subjective (Free Text): Still requiring sedation with Propofol, on10 mcg dose on MV, RASS is at neg 3, breathing 17 on AC 16, TV 400ml, 50% PEEP 5. Remains on Levophed at 10 mcg dose, NSS at 100ml/hr, dosages have not been able to be weaned downward. Afebrile, temps most;y 99F, SBPs 90s, HR 103, 17, 100% SPO2. Approx 1.6 liter positive fluid balance. NSS at 100ml/hr. Objective - Vital Signs/Intake and Output Vital Signs (last 24 hours): Temp Pulse Resp BP Pulse Ox 98.8 F 110 H 15 99/54 L 100 09/14/18 16:00 09/14/18 18:00 09/14/18 18:00 09/14/18 18:00 09/14/18 18:00 Intake and Output: 09/14/18 09/15/18 18:59 06:59 Intake Total 1356 Balance 1356 - Medications Medications: Current Medications Allopurinol (Zyloprim) 100 mg NG DAILY [facility] Last Admin: 09/14/18 08:13 Dose: 100 mg Apixaban (Eliquis) 5 mg PO BID [facility]; Protocol Last Admin: 09/06/18 17:08 Dose: Not Given Dimethicone (Proshield Plus Skin Protectant) 1 applic TOP Q8 [facility] Last Admin: 09/14/18 17:58 Dose: 1 applic Ferrous Gluconate (Fergon) 324 mg PO TID [facility] Last Admin: 09/14/18 17:56 Dose: 324 mg Furosemide (Lasix) 20 mg PO BID [facility] Last Admin: 09/06/18 17:10 Dose: Not Given Meropenem 1 gm/ Sodium (Chloride) 100 mls @ 100 mls/hr IVPB Q8 [facility]; Protocol Last Admin: 09/14/18 17:56 Dose: 100 mls/hr Vancomycin HCl 750 mg/ Sodium (Chloride) 250 mls @ 166.667 mls/hr IVPB Q12 [facility]; Protocol Last Admin: 09/14/18 11:06 Dose: Not Given Fluconazole (Diflucan Iv 100 Mg/50 Ml Ns) 50 mls @ 50 mls/hr IVPB DAILY [facility]; Protocol Last Admin: 09/14/18 09:36 Dose: 50 mls/hr Propofol (Diprivan) 1,000 mg in 100 mls @ 3.266 mls/hr IV .Q24H [facility]; Protocol Stop: 09/15/18 03:48 Last Admin: 09/14/18 08:11 Dose: 10 mcg/kg/min, 3.266 mls/hr Norepinephrine Bitartrate 8 mg (/ Dextrose) 258 mls @ 19.35 mls/hr IV .[id number] [facility]; Protocol Stop: 09/15/18 09:18 Last Admin: 09/14/18 21:09 Dose: 10 mcg/min, 19.35 mls/hr Metoprolol Tartrate (Lopressor) 12.5 mg PO Q12 [facility] Last Admin: 09/06/18 21:59 Dose: Not Given Multivitamins/Minerals (Therapeutic-M Tab) 1 tab PO DAILY [facility] Last Admin: 09/14/18 08:13 Dose: 1 tab Sodium Bicarbonate (Sodium Bicarbonate Tab) 650 mg PO BID [facility] Last Admin: 09/14/18 17:56 Dose: 650 mg - Labs Labs: 09/14/18 04:30 09/14/18 04:30 PT 12.8 Seconds (9.8-13.1) 09/13/18 04:35 INR 1.1 09/13/18 04:35 APTT 26.2 Seconds (25.6-37.1) 09/13/18 04:35 Assessment and Plan - Assessment and Plan (Free Text) Assessment: LOUIE .. MAINLY PRE RENAL AZOTEMIA HYPERNATREMIA HYPOKALEMIA VDRF .. ON VENT SEPSIS ON IVAB PER ID CA BREAST WITH METS MMP P : CHANGE IVF FROM NS TO 1/2 NS AT 75 CC/H C/O PRESSORS TO MAINTAIN BP C/O PRESENT CARE
--- NOTE | 2018-09-15 00:24 | CP.PCM.PN ---
Subjective - Date & Time of Evaluation Date of Evaluation: 09/13/18 Time of Evaluation: 19:00 - Subjective Subjective: Vented, opens eyes Objective - Vital Signs/Intake and Output Vital Signs (last 24 hours): Temp Pulse Resp BP Pulse Ox 98.8 F 110 H 15 99/54 L 100 09/14/18 16:00 09/14/18 18:00 09/14/18 18:00 09/14/18 18:00 09/14/18 18:00 Intake and Output: 09/14/18 09/15/18 18:59 06:59 Intake Total 1356 0 Balance 1356 0 - Medications Medications: Current Medications Allopurinol (Zyloprim) 100 mg NG DAILY [facility] Last Admin: 09/14/18 08:13 Dose: 100 mg Apixaban (Eliquis) 5 mg PO BID [facility]; Protocol Last Admin: 09/06/18 17:08 Dose: Not Given Dimethicone (Proshield Plus Skin Protectant) 1 applic TOP Q8 [facility] Last Admin: 09/14/18 17:58 Dose: 1 applic Ferrous Gluconate (Fergon) 324 mg PO TID [facility] Last Admin: 09/14/18 17:56 Dose: 324 mg Furosemide (Lasix) 20 mg PO BID [facility] Last Admin: 09/06/18 17:10 Dose: Not Given Meropenem 1 gm/ Sodium (Chloride) 100 mls @ 100 mls/hr IVPB Q8 [facility]; Protocol Last Admin: 09/14/18 17:56 Dose: 100 mls/hr Vancomycin HCl 750 mg/ Sodium (Chloride) 250 mls @ 166.667 mls/hr IVPB Q12 [facility]; Protocol Last Admin: 09/14/18 11:06 Dose: Not Given Fluconazole (Diflucan Iv 100 Mg/50 Ml Ns) 50 mls @ 50 mls/hr IVPB DAILY [facility]; Protocol Last Admin: 09/14/18 09:36 Dose: 50 mls/hr Propofol (Diprivan) 1,000 mg in 100 mls @ 3.266 mls/hr IV .Q24H [facility]; Protocol Stop: 09/15/18 03:48 Last Admin: 09/14/18 08:11 Dose: 10 mcg/kg/min, 3.266 mls/hr Norepinephrine Bitartrate 8 mg (/ Dextrose) 258 mls @ 19.35 mls/hr IV .[id number] ONE; Protocol Stop: 09/15/18 09:18 Last Titration: 09/14/18 22:19 Dose: 10 mcg/min, 19.35 mls/hr Metoprolol Tartrate (Lopressor) 12.5 mg PO Q12 [facility] Last Admin: 09/06/18 21:59 Dose: Not Given Multivitamins/Minerals (Therapeutic-M Tab) 1 tab PO DAILY [facility] Last Admin: 09/14/18 08:13 Dose: 1 tab Sodium Bicarbonate (Sodium Bicarbonate Tab) 650 mg PO BID [facility] Last Admin: 09/14/18 17:56 Dose: 650 mg - Labs Labs: 09/14/18 04:30 09/14/18 04:30 PT 12.8 Seconds (9.8-13.1) 09/13/18 04:35 INR 1.1 09/13/18 04:35 APTT 26.2 Seconds (25.6-37.1) 09/13/18 04:35 - Head Exam Head Exam: ATRAUMATIC - Eye Exam Eye Exam: Normal appearance - ENT Exam ENT Exam: Mucous Membranes Dry - Respiratory Exam Respiratory Exam: Decreased Breath Sounds - Cardiovascular Exam Cardiovascular Exam: +S1, +S2 - GI/Abdominal Exam GI & Abdominal Exam: Normal Bowel Sounds Assessment and Plan (1) Pancytopenia Assessment & Plan: secondary to chemotherapy transfusion support PRN transfuse if hgb below 7 and plt below 20,000 Status: Acute (2) Pulmonary embolism Assessment & Plan: anticoagulation contraindicated due to bleeding Status: Acute (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
--- NOTE | 2018-09-15 00:27 | CP.PCM.PN ---
Subjective - Date & Time of Evaluation Date of Evaluation: 09/14/18 Time of Evaluation: 19:00 - Subjective Subjective: Vented, opens eyes Objective - Vital Signs/Intake and Output Vital Signs (last 24 hours): Temp Pulse Resp BP Pulse Ox 98.8 F 110 H 15 99/54 L 100 09/14/18 16:00 09/14/18 18:00 09/14/18 18:00 09/14/18 18:00 09/14/18 18:00 Intake and Output: 09/14/18 09/15/18 18:59 06:59 Intake Total 1356 70 Balance 1356 70 - Medications Medications: Current Medications Allopurinol (Zyloprim) 100 mg NG DAILY [facility] Last Admin: 09/14/18 08:13 Dose: 100 mg Apixaban (Eliquis) 5 mg PO BID [facility]; Protocol Last Admin: 09/06/18 17:08 Dose: Not Given Dimethicone (Proshield Plus Skin Protectant) 1 applic TOP Q8 [facility] Last Admin: 09/14/18 17:58 Dose: 1 applic Ferrous Gluconate (Fergon) 324 mg PO TID [facility] Last Admin: 09/14/18 17:56 Dose: 324 mg Furosemide (Lasix) 20 mg PO BID [facility] Last Admin: 09/06/18 17:10 Dose: Not Given Meropenem 1 gm/ Sodium (Chloride) 100 mls @ 100 mls/hr IVPB Q8 [facility]; Protocol Last Admin: 09/14/18 17:56 Dose: 100 mls/hr Vancomycin HCl 750 mg/ Sodium (Chloride) 250 mls @ 166.667 mls/hr IVPB Q12 [facility]; Protocol Last Admin: 09/14/18 11:06 Dose: Not Given Fluconazole (Diflucan Iv 100 Mg/50 Ml Ns) 50 mls @ 50 mls/hr IVPB DAILY [facility]; Protocol Last Admin: 09/14/18 09:36 Dose: 50 mls/hr Propofol (Diprivan) 1,000 mg in 100 mls @ 3.266 mls/hr IV .Q24H [facility]; Protocol Stop: 09/15/18 03:48 Last Admin: 09/14/18 08:11 Dose: 10 mcg/kg/min, 3.266 mls/hr Norepinephrine Bitartrate 8 mg (/ Dextrose) 258 mls @ 19.35 mls/hr IV .[id number] ONE; Protocol Stop: 09/15/18 09:18 Last Titration: 09/14/18 22:19 Dose: 10 mcg/min, 19.35 mls/hr Metoprolol Tartrate (Lopressor) 12.5 mg PO Q12 [facility] Last Admin: 09/06/18 21:59 Dose: Not Given Multivitamins/Minerals (Therapeutic-M Tab) 1 tab PO DAILY [facility] Last Admin: 09/14/18 08:13 Dose: 1 tab Sodium Bicarbonate (Sodium Bicarbonate Tab) 650 mg PO BID [facility] Last Admin: 09/14/18 17:56 Dose: 650 mg - Labs Labs: 09/14/18 04:30 09/14/18 04:30 PT 12.8 Seconds (9.8-13.1) 09/13/18 04:35 INR 1.1 09/13/18 04:35 APTT 26.2 Seconds (25.6-37.1) 09/13/18 04:35 - Head Exam Head Exam: ATRAUMATIC - Eye Exam Eye Exam: Normal appearance - ENT Exam ENT Exam: Mucous Membranes Dry - Respiratory Exam Respiratory Exam: Decreased Breath Sounds - Cardiovascular Exam Cardiovascular Exam: +S1, +S2 - GI/Abdominal Exam GI & Abdominal Exam: Normal Bowel Sounds - Extremities Exam Extremities Exam: Pedal Edema Assessment and Plan (1) Pancytopenia Assessment & Plan: secondary to chemotherapy transfusion support PRN transfuse if hgb below 7 and plt below 20,000 Status: Acute (2) Pulmonary embolism Assessment & Plan: anticoagulation on hold for hematuria Status: Acute (3) Malignant mixed Mullerian tumor (MMMT) Assessment & Plan: outpatient treatment discussed code status and goals of carewith family, they want full code and are hopeful she can recover Status: Acute
[2018-09-15] MEDS: Meropenem 1 GM in Sodium Chloride 0.9% 100 ML IVPB SCH ×3 (00:52→16:43)
[2018-09-15] MEDS: Proshield Plus GEL TOP SCH ×3 (00:53→16:43)
--- NOTE | 2018-09-15 01:11 | CP.PCM.PN ---
Subjective - Date & Time of Evaluation Date of Evaluation: 09/14/18 Time of Evaluation: 18:30 - Subjective Subjective: Seen and examined at the bed side. Blood work showed worsening. Poor prognosis. D/w the oncologist who stated that family informed of the poor prognosis Objective - Vital Signs/Intake and Output Vital Signs (last 24 hours): Temp Pulse Resp BP Pulse Ox 98.0 F 103 H 15 99/52 L 100 09/15/18 00:00 09/15/18 00:00 09/15/18 00:00 09/15/18 00:00 09/15/18 00:00 Intake and Output: 09/14/18 09/15/18 18:59 06:59 Intake Total 1356 310 Balance 1356 310 - Medications Medications: Current Medications Allopurinol (Zyloprim) 100 mg NG DAILY [facility] Last Admin: 09/14/18 08:13 Dose: 100 mg Apixaban (Eliquis) 5 mg PO BID [facility]; Protocol Last Admin: 09/06/18 17:08 Dose: Not Given Dimethicone (Proshield Plus Skin Protectant) 1 applic TOP Q8 [facility] Last Admin: 09/15/18 00:53 Dose: 1 applic Ferrous Gluconate (Fergon) 324 mg PO TID [facility] Last Admin: 09/14/18 17:56 Dose: 324 mg Furosemide (Lasix) 20 mg PO BID [facility] Last Admin: 09/06/18 17:10 Dose: Not Given Meropenem 1 gm/ Sodium (Chloride) 100 mls @ 100 mls/hr IVPB Q8 [facility]; Protocol Last Admin: 09/15/18 00:52 Dose: 100 mls/hr Vancomycin HCl 750 mg/ Sodium (Chloride) 250 mls @ 166.667 mls/hr IVPB Q12 [facility]; Protocol Last Admin: 09/14/18 11:06 Dose: Not Given Fluconazole (Diflucan Iv 100 Mg/50 Ml Ns) 50 mls @ 50 mls/hr IVPB DAILY [facility]; Protocol Last Admin: 09/14/18 09:36 Dose: 50 mls/hr Propofol (Diprivan) 1,000 mg in 100 mls @ 3.266 mls/hr IV .Q24H [facility]; Protocol Stop: 09/15/18 03:48 Last Admin: 09/14/18 08:11 Dose: 10 mcg/kg/min, 3.266 mls/hr Norepinephrine Bitartrate 8 mg (/ Dextrose) 258 mls @ 19.35 mls/hr IV .[id number] ONE; Protocol Stop: 09/15/18 09:18 Last Titration: 09/14/18 22:19 Dose: 10 mcg/min, 19.35 mls/hr Metoprolol Tartrate (Lopressor) 12.5 mg PO Q12 [facility] Last Admin: 09/06/18 21:59 Dose: Not Given Multivitamins/Minerals (Therapeutic-M Tab) 1 tab PO DAILY [facility] Last Admin: 09/14/18 08:13 Dose: 1 tab Sodium Bicarbonate (Sodium Bicarbonate Tab) 650 mg PO BID [facility] Last Admin: 09/14/18 17:56 Dose: 650 mg - Labs Labs: 09/14/18 04:30 09/14/18 04:30 PT 12.8 Seconds (9.8-13.1) 09/13/18 04:35 INR 1.1 09/13/18 04:35 APTT 26.2 Seconds (25.6-37.1) 09/13/18 04:35 Assessment and Plan (1) Acute respiratory failure with hypoxemia Status: Acute (2) Ascites, malignant Status: Acute (3) Congestive heart failure (CHF) Status: Acute (4) Stage IV breast cancer in female Status: Acute (5) Severe anemia Status: Resolved (6) DVT of lower extremity, bilateral Status: Acute (7) Thrombocytopenia Status: Acute - Assessment and Plan (Free Text) Plan: MV on O2 Transfuse PLT and PRBCs as need Continue current care as per ICU team Recommendation.
[2018-09-15 04:30] LABS: ABG ALLEN TEST YES; ARTERIAL BLOOD GAS HEMOGLOBIN 6.1 g/dL (11.7-17.4); ARTERIAL BLOOD GAS O2 CAPACITY 8.7 mL/dL (16-24); ARTERIAL BLOOD GAS O2 CONTENT 8.6 ML/dL (15-23); ARTERIAL BLOOD GAS O2 SAT 98.8 % (95-98); ARTERIAL BLOOD GAS PCO2 38 mm/Hg (35-45); ARTERIAL BLOOD GAS PO2 146 mm/Hg (80-100); ARTERIAL BLOOD GAS TCO2 24.7 mmol/L (22-28)
[2018-09-15 05:35] LABS: BASO % 0.1 % (0.0-2.0); EOS % 0.2 % (0.0-4.0); LYMPH # 0.7 K/uL (1.0-4.3); LYMPH % 9.2 % (20.0-40.0); MEAN CORPUSCULAR HEMOGLOBIN 29.9 pg (27.0-31.0); MEAN CORPUSCULAR HGB CONC 33.2 g/dL (33.0-37.0); MONO # 0.2 K/uL (0.0-0.8); MONO % 3.1 % (0.0-10.0); NEUT # 7.1 K/uL (1.8-7.0); NEUT % 87.4 % (50.0-75.0); NRBC % 0.3 % (0.0-0.0); RBC 2.01 Mil/uL (3.80-5.20); RED CELL DISTRIBUTION WIDTH 16.5 % (11.5-14.5); WHITE BLOOD COUNT 8.1 K/uL (4.8-10.8)
[2018-09-15 05:49] LABS: PLATELET COUNT 13 K/uL (130-400)
[2018-09-15 05:51] LABS: ALB/GLOB RATIO 0.9 (1.0-2.1); ALBUMIN 2.3 g/dL (3.5-5.0); ALT/SGPT 40 U/L (9-52); AST/SGOT 43 U/L (14-36); BLOOD UREA NITROGEN 67 mg/dl (7-17); CALCIUM 8.3 mg/dL (8.4-10.2); GFR NON-AFRICAN AMERICAN > 60
[2018-09-15] MEDS ORDERED: Potassium Chloride 20 mEq/15 ml LIQ UD NG ONE (06:56)
[2018-09-15] MEDS: Multivitamin With Minerals Tab PO SCH (08:15)
[2018-09-15 09:21] LABS: BANDS 3 % (0-2); LYMPHOCYTE 5 % (20-50); MONOCYTE 5 % (0-10); NEUTROPHIL 87 % (42-75); TOTAL CELLS COUNTED 100
[2018-09-15 09:22] LABS: HYPOCHROMIC MODERATE; PLATELET ESTIMATE MARKEDLY DECREASED (NORMAL)
[2018-09-15 09:23] LABS: ROULEAUX FORMATION SLIGHT
[2018-09-15 09:24] LABS: TOXIC GRANULATION PRESENT
[2018-09-15 09:25] LABS: OVALOCYTES SLIGHT; POLYCHROMIC SLIGHT
[2018-09-15] MEDS ORDERED: Phytonadione 10 mg/ml Inj (Adult) IV ONE (10:13)
--- NOTE | 2018-09-15 10:16 | CP.PCM.PN ---
Subjective - Date & Time of Evaluation Date of Evaluation: 09/15/18 Time of Evaluation: 10:16 - Subjective Subjective: ID Note- Patient seen and examined today in ICU. remains on the vent but is awake and follows commands. as per nurse pt. has been off pressors for 3 hours so far today. she continues to have loose BM in rectal tube. Objective - Vital Signs/Intake and Output Vital Signs (last 24 hours): Temp Pulse Resp BP Pulse Ox 99.5 F 114 H 19 92/47 L 100 09/15/18 09:55 09/15/18 09:55 09/15/18 09:55 09/15/18 09:55 09/15/18 08:00 Intake and Output: 09/15/18 09/15/18 06:59 18:59 Intake Total 920 0 Output Total 800 Balance 120 0 - Medications Medications: Current Medications Allopurinol (Zyloprim) 100 mg NG DAILY [facility] Last Admin: 09/15/18 08:15 Dose: 100 mg Apixaban (Eliquis) 5 mg PO BID [facility]; Protocol Last Admin: 09/06/18 17:08 Dose: Not Given Dimethicone (Proshield Plus Skin Protectant) 1 applic TOP Q8 [facility] Last Admin: 09/15/18 08:15 Dose: 1 applic Ferrous Gluconate (Fergon) 324 mg PO TID [facility] Last Admin: 09/15/18 08:12 Dose: 324 mg Furosemide (Lasix) 20 mg PO BID [facility] Last Admin: 09/06/18 17:10 Dose: Not Given Meropenem 1 gm/ Sodium (Chloride) 100 mls @ 100 mls/hr IVPB Q8 [facility]; Protocol Last Admin: 09/15/18 08:14 Dose: 100 mls/hr Vancomycin HCl 750 mg/ Sodium (Chloride) 250 mls @ 166.667 mls/hr IVPB Q12 [facility]; Protocol Last Admin: 09/14/18 11:06 Dose: Not Given Fluconazole (Diflucan Iv 100 Mg/50 Ml Ns) 50 mls @ 50 mls/hr IVPB DAILY [facility]; Protocol Last Admin: 09/14/18 09:36 Dose: 50 mls/hr Dextrose (Dextrose 5% In Water 1000 Ml) 1,000 mls @ 84 mls/hr IV .[id number] [facility] Stop: 09/16/18 07:01 Last Admin: 09/15/18 08:12 Dose: 84 mls/hr Metoprolol Tartrate (Lopressor) 12.5 mg PO Q12 [facility] Last Admin: 09/06/18 21:59 Dose: Not Given Multivitamins/Minerals (Therapeutic-M Tab) 1 tab PO DAILY [facility] Last Admin: 09/15/18 08:15 Dose: 1 tab Phytonadione (Vitamin K Inj) 10 mg IV ONCE ONE Stop: 09/15/18 10:14 Sodium Bicarbonate (Sodium Bicarbonate Tab) 650 mg PO BID [facility] Last Admin: 09/15/18 08:14 Dose: 650 mg - Labs Labs: - Additional Findings Additional findings: - Constitutional Appears: Chronically Ill Additional comments: intubated but awake - Eye Exam Eye Exam: PERRL - ENT Exam Additional comments: ET and OGT in place - Neck Exam Additional comments: supple - Respiratory Exam Additional comments: On the vent - Cardiovascular Exam Cardiovascular Exam: Tachycardia, +S1, +S2 - GI/Abdominal Exam Additional comments: distended, soft hypoactive BS umbilical region with mass like lesion with denuded skin , no pus, bloody discharge scant only - Extremities Exam Additional comments: b/l 1+ edema in LE and left hand edema right posterior calf with multiple erythematous papules like lesion ( could be mets to the skin) - Neurological Exam Additional comments: more alert and responds to some commands and opens her eyes when her name is called - Skin Additional comments: right breast entirely covered with fungating looking round erythematous lesions few have opened up and bleeding superfically - Additional Findings Additional findings: lines- ET and OG tube left chest mediport hardwick cath- draining bloody urine rectal tube with brown soft stools Laboratory Results - last 72 hr 09/11/18 09/13/18 09/13/18 20:30 04:35 04:35 WBC 5.5 RBC 1.94 L Hgb 5.8 L* Hct 17.7 L MCV 91.1 MCH 30.1 MCHC 33.0 RDW 17.0 H Plt Count 19 L* D MPV 8.3 Neut % (Auto) 82.6 H Lymph % (Auto) 10.6 L Mclennan % (Auto) 6.6 Eos % (Auto) 0.1 Baso % (Auto) 0.1 Neut # (Auto) 4.5 Lymph # (Auto) 0.6 L Mclennan # (Auto) 0.4 Eos # (Auto) 0.0 Baso # (Auto) 0.0 Neutrophils % (Manual) Band Neutrophils % Lymphocytes % (Manual) Monocytes % (Manual) Toxic Granulation Platelet Estimate Polychromasia Hypochromasia (manual) Macrocytosis (manual) Ovalocytes Rouleaux PT 12.8 INR 1.1 APTT 26.2 Fibrinogen 304 pCO2 pO2 HCO3 ABG pH ABG Total CO2 ABG O2 Saturation ABG O2 Content ABG Base Excess ABG Hemoglobin ABG Carboxyhemoglobin POC ABG HHb (Measured) ABG Methemoglobin ABG O2 Capacity Frederic Test A-a O2 Difference Hgb O2 Saturation Vent Mode Mechanical Rate FiO2 Tidal Volume PEEP Crit Value Called To Crit Value Called By Crit Value Read Back Blood Gas Notified Time Sodium Potassium Chloride Carbon Dioxide Anion Gap BUN Creatinine Est GFR ( Amer) Est GFR (Non-Af Amer) Random Glucose Lactic Acid Uric Acid Calcium Phosphorus Magnesium Total Bilirubin AST ALT Alkaline Phosphatase Total Protein Albumin Globulin Albumin/Globulin Ratio Vancomycin Trough Blood Type A POSITIVE Antibody Screen Negative Crossmatch See Detail BBK History Checked Patient has bt 09/13/18 09/13/18 09/13/18 04:35 04:35 05:02 WBC RBC Hgb Hct MCV MCH MCHC RDW Plt Count MPV Neut % (Auto) Lymph % (Auto) Mclennan % (Auto) Eos % (Auto) Baso % (Auto) Neut # (Auto) Lymph # (Auto) Mclennan # (Auto) Eos # (Auto) Baso # (Auto) Neutrophils % (Manual) Band Neutrophils % Lymphocytes % (Manual) Monocytes % (Manual) Toxic Granulation Platelet Estimate Polychromasia Hypochromasia (manual) Macrocytosis (manual) Ovalocytes Rouleaux PT INR APTT Fibrinogen pCO2 40 pO2 143 H HCO3 22.5 ABG pH 7.35 ABG Total CO2 23.3 ABG O2 Saturation 99.0 H ABG O2 Content 9.4 L ABG Base Excess -3.2 L ABG Hemoglobin 6.6 L ABG Carboxyhemoglobin 0.7 POC ABG HHb (Measured) 1.0 ABG Methemoglobin 1.1 ABG O2 Capacity 9.5 L Frederic Test Yes A-a O2 Difference 164.0 Hgb O2 Saturation 97.2 Vent Mode A/c Mechanical Rate 12 FiO2 50.0 Tidal Volume 400 PEEP 5 Crit Value Called To Crit Value Called By Crit Value Read Back Blood Gas Notified Time Sodium 148 Potassium 3.5 L Chloride 115 H Carbon Dioxide 23 Anion Gap 14 BUN 75 H Creatinine 1.2 Est GFR ( Amer) 55 Est GFR (Non-Af Amer) 46 Random Glucose 108 H Lactic Acid 0.7 Uric Acid 5.1 Calcium 8.4 Phosphorus 4.6 H Magnesium 2.3 Total Bilirubin 0.7 AST 62 H D ALT 45 Alkaline Phosphatase 121 Total Protein 4.6 L Albumin 2.1 L Globulin 2.5 Albumin/Globulin Ratio 0.8 L Vancomycin Trough Blood Type Antibody Screen Crossmatch BBK History Checked 09/14/18 09/14/18 09/14/18 04:30 04:30 04:30 WBC 10.1 D RBC 2.68 L Hgb 8.0 L D Hct 23.9 L MCV 89.3 MCH 29.8 MCHC 33.3 RDW 16.3 H Plt Count 7 L* D MPV Neut % (Auto) Lymph % (Auto) Mclennan % (Auto) Eos % (Auto) Baso % (Auto) Neut # (Auto) Lymph # (Auto) Mclennan # (Auto) Eos # (Auto) Baso # (Auto) Neutrophils % (Manual) Band Neutrophils % Lymphocytes % (Manual) Monocytes % (Manual) Toxic Granulation Platelet Estimate Polychromasia Hypochromasia (manual) Macrocytosis (manual) Ovalocytes Rouleaux PT INR APTT Fibrinogen pCO2 pO2 HCO3 ABG pH ABG Total CO2 ABG O2 Saturation ABG O2 Content ABG Base Excess ABG Hemoglobin ABG Carboxyhemoglobin POC ABG HHb (Measured) ABG Methemoglobin ABG O2 Capacity Frederic Test A-a O2 Difference Hgb O2 Saturation Vent Mode Mechanical Rate FiO2 Tidal Volume PEEP Crit Value Called To Crit Value Called By Crit Value Read Back Blood Gas Notified Time Sodium 150 H Potassium 3.1 L Chloride 117 H Carbon Dioxide 24 Anion Gap 12 BUN 74 H Creatinine 1.0 Est GFR ( Amer) > 60 Est GFR (Non-Af Amer) 57 Random Glucose 131 H Lactic Acid Uric Acid Calcium 8.5 Phosphorus Magnesium Total Bilirubin AST ALT Alkaline Phosphatase Total Protein Albumin Globulin Albumin/Globulin Ratio Vancomycin Trough 36.1 H Blood Type Antibody Screen Crossmatch BBK History Checked 09/14/18 09/15/18 09/15/18 04:57 03:59 04:50 WBC RBC Hgb Hct MCV MCH MCHC RDW Plt Count MPV Neut % (Auto) Lymph % (Auto) Mclennan % (Auto) Eos % (Auto) Baso % (Auto) Neut # (Auto) Lymph # (Auto) Mclennan # (Auto) Eos # (Auto) Baso # (Auto) Neutrophils % (Manual) Band Neutrophils % Lymphocytes % (Manual) Monocytes % (Manual) Toxic Granulation Platelet Estimate Polychromasia Hypochromasia (manual) Macrocytosis (manual) Ovalocytes Rouleaux PT INR APTT Fibrinogen pCO2 47 H 38 pO2 135 H 146 H HCO3 22.5 24.0 ABG pH 7.30 L 7.40 ABG Total CO2 24.5 24.7 ABG O2 Saturation 100.6 H 98.8 H ABG O2 Content 11.4 L 8.6 L ABG Base Excess -3.2 L -1.2 ABG Hemoglobin 8.1 L 6.1 L ABG Carboxyhemoglobin 1.8 H 0.9 POC ABG HHb (Measured) -0.6 L 1.2 ABG Methemoglobin 1.0 1.4 ABG O2 Capacity 11.3 L 8.7 L Frederic Test Yes Yes A-a O2 Difference 163.0 163.0 Hgb O2 Saturation 97.8 96.4 Vent Mode A/c A/c Mechanical Rate 16 16 FiO2 50.0 50.0 Tidal Volume 400 400 PEEP 5 5 Crit Value Called To Dr ant shaw Crit Value Called By Taco Crit Value Read Back Y Blood Gas Notified Time 430 Sodium Potassium Chloride Carbon Dioxide Anion Gap BUN Creatinine Est GFR ( Amer) Est GFR (Non-Af Amer) Random Glucose Lactic Acid Uric Acid Calcium Phosphorus Magnesium Total Bilirubin AST ALT Alkaline Phosphatase Total Protein Albumin Globulin Albumin/Globulin Ratio Vancomycin Trough 23.4 H Blood Type Antibody Screen Crossmatch BBK History Checked 09/15/18 09/15/18 09/15/18 04:50 04:50 06:29 WBC 8.1 RBC 2.01 L Hgb 6.0 L* D Hct 18.1 L MCV 90.0 MCH 29.9 MCHC 33.2 RDW 16.5 H Plt Count 13 L* D MPV 8.0 Neut % (Auto) 87.4 H Lymph % (Auto) 9.2 L Mclennan % (Auto) 3.1 Eos % (Auto) 0.2 Baso % (Auto) 0.1 Neut # (Auto) 7.1 H Lymph # (Auto) 0.7 L Mclennan # (Auto) 0.2 Eos # (Auto) 0.0 Baso # (Auto) 0.0 Neutrophils % (Manual) 87 H Band Neutrophils % 3 H Lymphocytes % (Manual) 5 L Monocytes % (Manual) 5 Toxic Granulation Present Platelet Estimate Markedly decreased L Polychromasia Slight Hypochromasia (manual) Moderate Macrocytosis (manual) Slight Ovalocytes Slight Rouleaux Slight PT INR APTT Fibrinogen pCO2 pO2 HCO3 ABG pH ABG Total CO2 ABG O2 Saturation ABG O2 Content ABG Base Excess ABG Hemoglobin ABG Carboxyhemoglobin POC ABG HHb (Measured) ABG Methemoglobin ABG O2 Capacity Frederic Test A-a O2 Difference Hgb O2 Saturation Vent Mode Mechanical Rate FiO2 Tidal Volume PEEP Crit Value Called To Crit Value Called By Crit Value Read Back Blood Gas Notified Time Sodium 152 H Potassium 3.4 L Chloride 118 H Carbon Dioxide 26 Anion Gap 11 BUN 67 H Creatinine 0.9 Est GFR ( Amer) > 60 Est GFR (Non-Af Amer) > 60 Random Glucose 125 H Lactic Acid Uric Acid Calcium 8.3 L Phosphorus 3.9 Magnesium 2.1 Total Bilirubin 0.4 AST 43 H D ALT 40 Alkaline Phosphatase 122 Total Protein 5.0 L Albumin 2.3 L Globulin 2.7 Albumin/Globulin Ratio 0.9 L Vancomycin Trough Blood Type A POSITIVE Antibody Screen Negative Crossmatch See Detail BBK History Checked Patient has bt Microbiology 09/08/18 11:49 Blood-Venous Blood Culture - Final NO GROWTH AFTER 5 DAYS 09/08/18 11:49 Blood-Venous Gram Stain - Final TEST NOT PERFORMED 09/08/18 11:49 Blood-Venous Blood Culture - Final NO GROWTH AFTER 5 DAYS 09/08/18 11:49 Blood-Venous Gram Stain - Final TEST NOT PERFORMED 09/07/18 Unknown Blood-Thru Central Line Blood Culture - Final NO GROWTH AFTER 5 DAYS 09/07/18 Unknown Blood-Thru Central Line Gram Stain - Final TEST NOT PERFORMED 09/07/18 Unknown Blood-Thru Central Line Blood Culture - Final NO GROWTH AFTER 5 DAYS 09/07/18 Unknown Blood-Thru Central Line Gram Stain - Final TEST NOT PERFORMED 09/07/18 09:07 Trachasp Gram Stain - Final 09/07/18 09:07 Trachasp Sputum Culture - Final Yeast Species 09/04/18 11:25 Naris MRSA Culture (Admit) - Final MRSA NOT DETECTED Accession No. : [id number] Patient Name / ID : RYLEE ONEIL / [id number] Exam Date : 09/15/2018 04:02:18 ( Approved ) Study Comment : Sex / Age : F / 58Y Creator : Mario Etienne MD Dictator : Mario Etienne MD Professor Of Business Administration : [employer]ter : Mario Etienne MD Approver2 : Report Date : 09/15/2018 12:38:23 My Comment : Date of service: 09/15/2018 HISTORY: pt is intubated COMPARISON: 09/14/2018 FINDINGS: LUNGS: Increasing perihilar opacity with congestive change suspicious for pulmonary edema. PLEURA: Bilateral small pleural effusion. No pneumothorax. CARDIOVASCULAR: No aortic atherosclerotic calcification present. Normal cardiac size. OSSEOUS STRUCTURES: No significant abnormalities. VISUALIZED UPPER ABDOMEN: Normal. OTHER FINDINGS: None. IMPRESSION: Findings suspicious for pulmonary edema increasing compared to prior exami nation. 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 remains intubated but is more alert today . low grade fever s today CXR report noted. leukopenia much improved continues to have anemia and thrombocytopenia tumor lysis syndrome better. blood cx- 09/07/2018- neg x 4 trach asp cx- yeast PLan- check stool c.diff check 2 more blood cx. advise to hold today's vanco since trough was high. recheck trough in am and if <15 can redose. advise to continue IV meropnem for broad spectrum gram negative coverage.day #8 continue with IV diflucan day #7 monitor absolute PMN and if becomes 500 or less needs to be on neutropenic precautions as well. All labs and imaging and chart notes reviewed. d/w Courtesy Van Driver as well. critical care time spent 40 minutes.
[2018-09-15] MEDS ORDERED: Phytonadione 10 MG in Sodium Chloride 0.9% 50 ML IV ONE (10:45)
[2018-09-15] MEDS: Fluconazole IV 100mg/50 ml NS 50 ML IVPB SCH (12:19)
--- NOTE | 2018-09-15 12:44 | RAD ---
Date of service: 09/15/2018 HISTORY: pt is intubated COMPARISON: 09/14/2018 FINDINGS: LUNGS: Increasing perihilar opacity with congestive change suspicious for pulmonary edema. PLEURA: Bilateral small pleural effusion. No pneumothorax. CARDIOVASCULAR: No aortic atherosclerotic calcification present. Normal cardiac size. OSSEOUS STRUCTURES: No significant abnormalities. VISUALIZED UPPER ABDOMEN: Normal. OTHER FINDINGS: None. IMPRESSION: Findings suspicious for pulmonary edema increasing compared to prior examination.
--- NOTE | 2018-09-15 15:57 | CP.CCUPN ---
CCU Subjective - Physician Review Subjective (Free Text): Sedation with Propofol, on10 mcg dose on MV, RASS is at neg 3, breathing 19 on AC 16, TV 400ml, 50% PEEP 5. Remains on Levophed, decreased to 5 mcg dose. Afebrile, temps mostly 99F, SBPs 90-100s, HR 111, 17, 100% SPO2. Approx 1.4 liter positive fluid balance. NSS at 100ml/hr. Vaginal bleeding persists. No other distress noted. ROS: No other pertinent negs or positive on 10+ system review obtainable due to sedation. Other PMSFH: All other Nursing and physician documentation reviewed to date; no new pertinent info noted relevant to current medical problems. EXAM- HEENT: no icterus, pupils equal, 3 mm and reactive, no gaze preference NECK: no visible JVD, supple, carotids equal upstroke bilat/no bruits CHEST: decreased BS bases, no wheezes audible, bloody fluid drained dressing over R breast. Left chest portacath. HEART: regular, distant, tachy S1S2, no murmur audible, no rubs. ABD: soft, no increased distention, no focal tenderness, BS hypoactive, dried necrotic lesion over umbilicus unchanged. Serous fluid draining from RUQ old paracentesis site. EXT: ++ edema LEs, +ulcer posterior R calf worse than L, no calf tenderness or palpable cords, distal pulses intact and symmetrical NEURO: withdraws to pain stimuli, + tone SKIN: no rashes LABS: WBC= 8.1 HGB= 6.0 PLTs = 13K 7.40/38/146 Na= 152 K= 3.4 Cl= 118 HCO3= 26 BUN/Cr= 67/0.9 BS= 125 CXR: (my interp)- ETT position OK above loren. Worse R perihilar / bilateral interstitial changes prominent. IMPRESSION / MAJOR PROBLEMS NOW: 1. Acute hypoxemic Resp Failure, 2 bilat multi-lobar pneumonia 2. Tumor Lysis Syndrome 3. Severe Sepsis with shock, 2 Pneumonia, r/o bacteremia 4. Acute on Chronic disease Anemia 5. h/o DVT- bilat CFV on Feb 5. 6. s/p Paracentesis Feb 5 for 2.5 liters PLAN: 1. More PRBCS, discussed with Heme-Onc, will give platelets in AM tomorrow. 2. MV weans once Hgb stabilizes, family is amenable to Trach if needed and patient become unweanable. Day #12 on MV. 3. Stop NSS IVFs. 4. Free Water, may need D5W to prevent further Hypernatremia. 5. On empiric abx / antifungal coverage with Merrem, Diflucan. Guerreroo held 2 high drug levels. 6. Full resuscitative measures remain as requested by Family.
--- NOTE | 2018-09-15 18:48 | CP.PCM.PN ---
Subjective - Date & Time of Evaluation Date of Evaluation: 09/15/18 Time of Evaluation: 18:10 - Subjective Subjective: Patient seen and examined at the bed side. Remains intubated. Off pressor today. +Loose BM. Objective - Vital Signs/Intake and Output Vital Signs (last 24 hours): Temp Pulse Resp BP Pulse Ox 98.0 F 84 19 104/72 99 09/15/18 16:00 09/15/18 17:00 09/15/18 17:00 09/15/18 17:00 09/15/18 17:00 Intake and Output: 09/15/18 09/15/18 06:59 18:59 Intake Total 920 2261.34 Output Total 800 Balance 120 2261.34 - Medications Medications: Current Medications Allopurinol (Zyloprim) 100 mg NG DAILY [facility] Last Admin: 09/15/18 08:15 Dose: 100 mg Apixaban (Eliquis) 5 mg PO BID [facility]; Protocol Last Admin: 09/06/18 17:08 Dose: Not Given Dimethicone (Proshield Plus Skin Protectant) 1 applic TOP Q8 [facility] Last Admin: 09/15/18 16:43 Dose: 1 applic Ferrous Gluconate (Fergon) 324 mg PO TID [facility] Last Admin: 09/15/18 16:43 Dose: 324 mg Furosemide (Lasix) 20 mg PO BID [facility] Last Admin: 09/06/18 17:10 Dose: Not Given Meropenem 1 gm/ Sodium (Chloride) 100 mls @ 100 mls/hr IVPB Q8 [facility]; Protocol Last Admin: 09/15/18 16:43 Dose: 100 mls/hr Vancomycin HCl 750 mg/ Sodium (Chloride) 250 mls @ 166.667 mls/hr IVPB Q12 [facility]; Protocol Last Admin: 09/14/18 11:06 Dose: Not Given Fluconazole (Diflucan Iv 100 Mg/50 Ml Ns) 50 mls @ 50 mls/hr IVPB DAILY [facility]; Protocol Last Admin: 09/15/18 12:19 Dose: 50 mls/hr Dextrose (Dextrose 5% In Water 1000 Ml) 1,000 mls @ 84 mls/hr IV .[id number] [facility] Stop: 09/16/18 07:01 Last Admin: 09/15/18 08:12 Dose: 84 mls/hr Metoprolol Tartrate (Lopressor) 12.5 mg PO Q12 [facility] Last Admin: 09/06/18 21:59 Dose: Not Given Multivitamins/Minerals (Therapeutic-M Tab) 1 tab PO DAILY [facility] Last Admin: 09/15/18 08:15 Dose: 1 tab Sodium Bicarbonate (Sodium Bicarbonate Tab) 650 mg PO BID [facility] Last Admin: 09/15/18 16:46 Dose: Not Given - Labs Labs: 09/15/18 04:50 09/15/18 04:50 PT 12.8 Seconds (9.8-13.1) 09/13/18 04:35 INR 1.1 09/13/18 04:35 APTT 26.2 Seconds (25.6-37.1) 09/13/18 04:35 Assessment and Plan (1) Acute respiratory failure with hypoxemia Status: Acute (2) Ascites, malignant Status: Acute (3) Congestive heart failure (CHF) Status: Acute (4) Stage IV breast cancer in female Status: Acute (5) Severe anemia Status: Resolved (6) DVT of lower extremity, bilateral Status: Acute (7) Thrombocytopenia Status: Acute - Assessment and Plan (Free Text) Plan: Continue current Care
--- NOTE | 2018-09-15 21:14 | CP.PCM.PN ---
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 remains intubated but is more alert today . low grade fever s today CXR report noted. leukopenia much improved continues to have anemia and thrombocytopenia tumor lysis syndrome better. blood cx- 09/07/2018- neg x 4 trach asp cx- yeast Objective - Vital Signs/Intake and Output Vital Signs (last 24 hours): Temp Pulse Resp BP Pulse Ox 98.9 F 104 H 22 106/45 L 100 09/15/18 20:00 09/15/18 20:00 09/15/18 20:00 09/15/18 20:00 09/15/18 20:00 Intake and Output: 09/15/18 09/16/18 18:59 06:59 Intake Total 2615.34 119 Output Total 1300 Balance 1315.34 119 - Medications Medications: Current Medications Allopurinol (Zyloprim) 100 mg NG DAILY [facility] Last Admin: 09/15/18 08:15 Dose: 100 mg Apixaban (Eliquis) 5 mg PO BID [facility]; Protocol Last Admin: 09/06/18 17:08 Dose: Not Given Dimethicone (Proshield Plus Skin Protectant) 1 applic TOP Q8 [facility] Last Admin: 09/15/18 16:43 Dose: 1 applic Ferrous Gluconate (Fergon) 324 mg PO TID [facility] Last Admin: 09/15/18 16:43 Dose: 324 mg Furosemide (Lasix) 20 mg PO BID [facility] Last Admin: 09/06/18 17:10 Dose: Not Given Meropenem 1 gm/ Sodium (Chloride) 100 mls @ 100 mls/hr IVPB Q8 [facility]; Protocol Last Admin: 09/15/18 16:43 Dose: 100 mls/hr Vancomycin HCl 750 mg/ Sodium (Chloride) 250 mls @ 166.667 mls/hr IVPB Q12 [facility]; Protocol Last Admin: 09/14/18 11:06 Dose: Not Given Fluconazole (Diflucan Iv 100 Mg/50 Ml Ns) 50 mls @ 50 mls/hr IVPB DAILY [facility]; Protocol Last Admin: 09/15/18 12:19 Dose: 50 mls/hr Dextrose (Dextrose 5% In Water 1000 Ml) 1,000 mls @ 84 mls/hr IV .[id number] [facility] Stop: 09/16/18 07:01 Last Admin: 09/15/18 08:12 Dose: 84 mls/hr Metoprolol Tartrate (Lopressor) 12.5 mg PO Q12 [facility] Last Admin: 09/06/18 21:59 Dose: Not Given Multivitamins/Minerals (Therapeutic-M Tab) 1 tab PO DAILY [facility] Last Admin: 09/15/18 08:15 Dose: 1 tab Sodium Bicarbonate (Sodium Bicarbonate Tab) 650 mg PO BID [facility] Last Admin: 09/15/18 16:46 Dose: Not Given - Labs Labs: 09/15/18 04:50 09/15/18 04:50 PT 12.8 Seconds (9.8-13.1) 09/13/18 04:35 INR 1.1 09/13/18 04:35 APTT 26.2 Seconds (25.6-37.1) 09/13/18 04:35 Assessment and Plan - Assessment and Plan (Free Text) Assessment: LOUIE .. MAILY PRE RENAL .. BETTER ELECTROLYTES ABNORMALITIES .. BETTER VDRF .. ON VENT SEPSIS ,, ON IVAB BREAST CA WITH METS P : C/O CURRENT FLIUD AND ELECTROLYTES MANAGEMENT C/O TRANSFUSION PRN C/O IVAB PER ID C/O SUPPORTIVE CARE AVOID ALL NEPHROTOXIC AJENTS WILL KEEP A CLOSE EYE
[2018-09-15] MEDS ORDERED: Propofol 10 mg/ml 1,000 MG/100 ML VIAL IV SCH (22:15)
[2018-09-16] MEDS: Meropenem 1 GM in Sodium Chloride 0.9% 100 ML IVPB SCH ×2 (00:10→08:53)
[2018-09-16] MEDS: Proshield Plus GEL TOP SCH ×3 (00:12→16:17)
[2018-09-16 04:48] LABS: ABG ALLEN TEST YES; ARTERIAL BLOOD GAS HEMOGLOBIN 6.9 g/dL (11.7-17.4); ARTERIAL BLOOD GAS O2 CAPACITY 9.6 mL/dL (16-24); ARTERIAL BLOOD GAS O2 CONTENT 9.5 ML/dL (15-23); ARTERIAL BLOOD GAS O2 SAT 98.6 % (95-98); ARTERIAL BLOOD GAS PCO2 44 mm/Hg (35-45); ARTERIAL BLOOD GAS PH 7.37 (7.35-7.45); ARTERIAL BLOOD GAS PO2 100 mm/Hg (80-100); ARTERIAL BLOOD GAS TCO2 26.8 mmol/L (22-28)
[2018-09-16 06:00] LABS: BLOOD UREA NITROGEN 63 mg/dl (7-17); GFR NON-AFRICAN AMERICAN > 60
[2018-09-16 06:03] LABS: MEAN CELL VOLUME 89.2 fl (81.0-99.0); MEAN CORPUSCULAR HEMOGLOBIN 30.2 pg (27.0-31.0); MEAN CORPUSCULAR HGB CONC 33.9 g/dL (33.0-37.0); RBC 2.14 Mil/uL (3.80-5.20); RED CELL DISTRIBUTION WIDTH 15.6 % (11.5-14.5); WHITE BLOOD COUNT 6.8 K/uL (4.8-10.8)
[2018-09-16 06:15] LABS: HEMOGLOBIN 6.5 g/dL (12.0-16.0)
[2018-09-16] MEDS: Fluconazole IV 100mg/50 ml NS 50 ML IVPB SCH (08:52)
[2018-09-16] MEDS: Multivitamin With Minerals Tab PO SCH (08:54)
--- NOTE | 2018-09-16 14:06 | RAD ---
Date of service: 09/16/2018 HISTORY: Intubated. COMPARISON: Multiple serial examinations preceding the most recent study: 2018. FINDINGS: LUNGS: Stable multifocal infiltrates. PLEURA: No significant pleural effusion identified, no pneumothorax apparent. CARDIOVASCULAR: No atherosclerotic calcification present Normal. OSSEOUS STRUCTURES: No significant abnormalities. VISUALIZED UPPER ABDOMEN: Normal. OTHER FINDINGS: Stable, satisfactory position ventilatory, nasogastric apparatus. IMPRESSION: Stable multifocal infiltrates/pulmonary edema. Stable position of support apparatus.
--- NOTE | 2018-09-16 15:14 | CP.PCM.PN ---
Subjective - Date & Time of Evaluation Date of Evaluation: 09/16/18 Time of Evaluation: 14:00 - Subjective Subjective: SEEN ON RENAL F/U IN ICU REMAINS INTUBATED AND SEDATED DOESN'T APPEAR IN DISTRESS FAMILY ON THE BED SIDE .. 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 Remains on Levophed, decreased to 5 mcg dose. Afebrile, temps mostly 99F, SBPs 90-100s, HR 111, 17, 100% SPO2. Approx 1.4 liter positive fluid balance. NSS at 100ml/hr. Vaginal bleeding persists. No other distress noted. ROS: No other pertinent negs or positive on 10+ system review obtainable due to sedation. Other PMSFH: All other Nursing and physician documentation reviewed to date; no new pertinent info noted relevant to current medical problems. Objective - Vital Signs/Intake and Output Vital Signs (last 24 hours): Temp Pulse Resp BP Pulse Ox 99 F 121 H 24 107/57 L 96 09/16/18 15:01 09/16/18 15:01 09/16/18 15:01 09/16/18 15:01 09/16/18 14:00 Intake and Output: 09/16/18 09/16/18 06:59 18:59 Intake Total 1746 2665 Output Total 900 450 Balance 846 2215 - Medications Medications: Current Medications Allopurinol (Zyloprim) 100 mg NG DAILY [facility] Last Admin: 09/16/18 08:54 Dose: 100 mg Apixaban (Eliquis) 5 mg PO BID [facility]; Protocol Last Admin: 09/06/18 17:08 Dose: Not Given Dimethicone (Proshield Plus Skin Protectant) 1 applic TOP Q8 [facility] Last Admin: 09/16/18 08:53 Dose: 1 applic Ferrous Gluconate (Fergon) 324 mg PO TID [facility] Last Admin: 09/16/18 12:35 Dose: 324 mg Furosemide (Lasix) 20 mg PO BID [facility] Last Admin: 09/06/18 17:10 Dose: Not Given Meropenem 1 gm/ Sodium (Chloride) 100 mls @ 100 mls/hr IVPB Q8 [facility]; Protocol Last Admin: 09/16/18 08:53 Dose: 100 mls/hr Vancomycin HCl 750 mg/ Sodium (Chloride) 250 mls @ 166.667 mls/hr IVPB Q12 [facility]; Protocol Last Admin: 09/14/18 11:06 Dose: Not Given Fluconazole (Diflucan Iv 100 Mg/50 Ml Ns) 50 mls @ 50 mls/hr IVPB DAILY [facility]; Protocol Last Admin: 09/16/18 08:52 Dose: 50 mls/hr Propofol (Diprivan) 1,000 mg in 100 mls @ 3.266 mls/hr IV .Q24H [facility]; Protocol Stop: 09/16/18 22:03 Last Admin: 09/15/18 22:09 Dose: 10 mcg/kg/min, 3.266 mls/hr Dextrose (Dextrose 5% In Water 1000 Ml) 1,000 mls @ 50 mls/hr IV .Q20H [facility] Stop: 09/17/18 15:10 Metoprolol Tartrate (Lopressor) 12.5 mg PO Q12 [facility] Last Admin: 09/06/18 21:59 Dose: Not Given Multivitamins/Minerals (Therapeutic-M Tab) 1 tab PO DAILY [facility] Last Admin: 09/16/18 08:54 Dose: 1 tab Sodium Bicarbonate (Sodium Bicarbonate Tab) 650 mg PO BID [facility] Last Admin: 09/16/18 08:54 Dose: 650 mg - Labs Labs: 09/16/18 04:30 09/16/18 04:30 PT 12.8 Seconds (9.8-13.1) 09/13/18 04:35 INR 1.1 09/13/18 04:35 APTT 26.2 Seconds (25.6-37.1) 09/13/18 04:35 Assessment and Plan - Assessment and Plan (Free Text) Plan: LOUIE .. MAINLY PRE RENAL AZOTEMIA ..RENAL FUNCTION STABLE ELECTROLYTES OK PERSISTANT ANEMIA FROM BLEEDING FROM COAGULOPATHY VDRF .. ON VENT SEPSIS BREAST CA WITH METS MMP P : C/O PRESENT FLIUD AND ELECTROLYTES MANAGEMNT C/O PRESENT CARE C/O CURRENT MANAGEMENT TRUNSFUSE PRN
--- NOTE | 2018-09-16 15:34 | CP.CCUPN ---
CCU Subjective - Physician Review Events Since Last Encounter (Free Text): 09/16/18 15:32 sedated, intubated, platlets stilll very low and hb also 6.5, receiving transfusion on daily basis, worsening pulm congestion and receiving IVF, has hypervolemic hypernatremia and will start thiazide diuretics and will low the IV F. CCU Objective - Vital Signs / Intake & Output Vital Signs (Last 4 hours): Vital Signs Temp Pulse Resp BP Pulse Ox 09/16/18 15:26 99 F 120 H 22 114/60 09/16/18 15:01 99 F 121 H 24 107/57 L 09/16/18 15:00 124 H 24 102/59 L 97 09/16/18 14:41 99 F 119 H 21 104/54 L 09/16/18 14:26 99 F 122 H 25 H 107/55 L 09/16/18 14:00 124 H 24 114/55 L 96 09/16/18 13:17 99 F 124 H 22 107/56 L 09/16/18 13:00 127 H 24 110/57 L 95 09/16/18 12:55 99 F 126 H 21 111/57 L 09/16/18 12:32 99 F 125 H 24 110/52 L 09/16/18 12:14 99 F 126 H 20 107/58 L 09/16/18 11:59 99 F 127 H 21 107/58 L 97 09/16/18 11:55 99 F 124 H 21 111/54 L 09/16/18 11:53 99 F 128 H 21 105/57 L Intake and Output (Last 8hrs): Intake & Output 09/16/18 09/16/18 09/16/18 06:59 14:59 22:59 Intake Total 1283 2665 Output Total 900 450 Balance 383 2215 Intake: IV 762 588 Intake, Piggyback 106 150 Oral 35 Tube Feeding 315 210 Blood Product 1462 Apheresis Plts Acda Lr 210 Irr 2nd Unit [id number] Apheresis Plts Acda Lr 327 Irr 2nd Unit [id number] Red Blood Cells Cpd As1 325 Lr Unit [id number] Red Blood Cells Cpd As1 0 Lr Unit [id number] Free Water Flush 100 100 Other 120 Apheresis Plts Acda Lr 40 Irr 2nd Unit [id number] Apheresis Plts Acda Lr 20 Irr 2nd Unit [id number] Red Blood Cells Cpd As1 40 Lr Unit [id number] Red Blood Cells Cpd As1 20 Lr Unit [id number] Output: Urine 900 450 Urethral (Orellana) 900 450 Other: # Bowel Movements 100 - Physical Exam Narrative Physical Exam (Free Text): 09/16/18 15:34 P/E Neck: JVD +ve Lungs: bilateral basal crackles Abdomen: soft Ext: + 1 edema heart: no gallop Head: Positive for: Atraumatic, Normocephalic Pupils: Positive for: PERRL Extroacular Muscles: Positive for: EOMI Conjunctiva: Negative for: Injected, Icteric Ears: Positive for: Normal Mouth: Positive for: Moist Mucous Membranes Nose (Internal): Positive for: Normal Inspection Neck: Positive for: Normal Range of Motion, Trachea Midline. Negative for: Meningeal Signs, MIDLINE TENDERNESS, Paraspinal Tenderness, JVD, Lymphadenopathy, Bruit, Other Respiratory/Chest: Positive for: Good Air Exchange, Rales, Retracting, Rhonchi. Negative for: Respiratory Distress, Accessory Muscle Use, Wheezes, Tachypneic Cardiovascular: Positive for: Regular Rate and Rhythm, Normal S1, S2, Peripheal Pulses Present. Negative for: Murmurs, Irregular Rhythm, Tachycardic, Bradycardic Abdomen: Positive for: Distention, Normal Bowel Sounds. Negative for: Tenderness Breast/Axillary: Positive for: Other (fungating necrotic mass to Right Breast) Upper Extremity: Positive for: Edema, NORMAL PULSES. Negative for: Normal Inspection, Cyanosis Lower Extremity: Positive for: Edema, NORMAL PULSES. Negative for: Normal Inspection Psychiatric: Positive for: Other (Sedated and orally intubated). Negative for: Alert, Oriented x 3 - Medications Active Medications: Active Medications Generic Name Dose Route Start Last Admin Trade Name Freq PRN Reason Stop Dose Admin Allopurinol 100 mg 09/14/18 09:00 09/16/18 08:54 Zyloprim NG 100 mg DAILY [facility] Administration Apixaban 5 mg 09/04/18 09:00 09/06/18 17:08 Eliquis PO Not Given BID [facility] Protocol Dimethicone 1 applic 09/06/18 17:00 09/16/18 08:53 Proshield Plus Skin Protectant TOP 1 applic Q8 [facility] Administration Ferrous Gluconate 324 mg 09/04/18 09:00 09/16/18 12:35 Fergon PO 324 mg TID [facility] Administration Furosemide 20 mg 09/04/18 09:00 09/06/18 17:10 Lasix PO Not Given BID [facility] Meropenem 1 gm/ Sodium 100 mls @ 100 mls/hr 09/08/18 17:15 09/16/18 08:53 Chloride IVPB 100 mls/hr Q8 [facility] Administration Protocol Vancomycin HCl 750 mg/ Sodium 250 mls @ 166.667 mls/hr 09/08/18 21:00 11:06 Chloride IVPB Not Given Q12 [facility] Protocol Fluconazole 50 mls @ 50 mls/hr 09/09/18 11:30 09/16/18 08:52 Diflucan Iv 100 Mg/50 Ml Ns IVPB 50 mls/hr DAILY [facility] Administration Protocol Propofol 1,000 mg in 100 mls @ 3.266 mls/hr 09/15/18 22:15 09/15/18 22:09 Diprivan IV 09/16/18 22:03 10 mcg/kg/min .Q24H [facility] 3.266 mls/hr Administration Protocol 10 MCG/KG/MIN Dextrose 1,000 mls @ 50 mls/hr 09/16/18 15:15 09/16/18 15:15 Dextrose 5% In Water 1000 Ml IV 09/17/18 15:10 50 mls/hr .Q20H [facility] Administration Metoprolol Tartrate 12.5 mg 09/03/18 23:45 09/06/18 21:59 Lopressor PO Not Given Q12 [facility] Multivitamins/Minerals 1 tab 09/04/18 09:00 09/16/18 08:54 Therapeutic-M Tab PO 1 tab DAILY [facility] Administration Sodium Bicarbonate 650 mg 09/04/18 09:00 09/16/18 08:54 Sodium Bicarbonate Tab PO 650 mg BID [facility] Administration - Patient Studies Lab Studies: Lab Studies 09/16/18 09/16/18 09/16/18 Range/Units 04:36 04:30 04:30 WBC 6.8 (4.8-10.8) K/uL RBC 2.14 L (3.80-5.20) Mil/uL Hgb 6.5 L* (12.0-16.0) g/dL Hct 19.1 L (34.0-47.0) % MCV 89.2 (81.0-99.0) fl MCH 30.2 (27.0-31.0) pg MCHC 33.9 (33.0-37.0) g/dL RDW 15.6 H (11.5-14.5) % Plt Count 4 L* D (130-400) K/uL pCO2 44 (35-45) mm/Hg pO2 100 (80-100) mm/Hg HCO3 25.0 (21-28) mmol/L ABG pH 7.37 (7.35-7.45) ABG Total CO2 26.8 (22-28) mmol/L ABG O2 Saturation 98.6 H (95-98) % ABG O2 Content 9.5 L (15-23) ML/dL ABG Base Excess 0.1 (-2.0-3.0) mmol/L ABG Hemoglobin 6.9 L (11.7-17.4) g/dL ABG Carboxyhemoglobin 1.6 H (0.5-1.5) % POC ABG HHb (Measured) 1.4 (0.0-5.0) % ABG Methemoglobin 1.3 (0.0-3.0) % ABG O2 Capacity 9.6 L (16-24) mL/dL Frederic Test Yes A-a O2 Difference 202.0 mm/Hg Hgb O2 Saturation 95.7 (95.0-98.0) % Vent Mode A/c Mechanical Rate 16 FiO2 50.0 % Tidal Volume 400 PEEP 5 Sodium 151 H (132-148) mmol/l Potassium 3.8 (3.6-5.0) MMOL/L Chloride 117 H (98-107) mmol/L Carbon Dioxide 26 (22-30) mmol/L Anion Gap 12 (10-20) BUN 63 H (7-17) mg/dl Creatinine 0.8 (0.7-1.2) mg/dl Est GFR ( Amer) > 60 Est GFR (Non-Af Amer) > 60 Random Glucose 129 H (65-105) mg/dL Calcium 8.0 L (8.4-10.2) mg/dL Vancomycin Trough (5.0-10.0) ug/mL Blood Type Antibody Screen Crossmatch BBK History Checked 09/16/18 09/15/18 Range/Units 04:30 06:29 WBC (4.8-10.8) K/uL RBC (3.80-5.20) Mil/uL Hgb (12.0-16.0) g/dL Hct (34.0-47.0) % MCV (81.0-99.0) fl MCH (27.0-31.0) pg MCHC (33.0-37.0) g/dL RDW (11.5-14.5) % Plt Count (130-400) K/uL pCO2 (35-45) mm/Hg pO2 (80-100) mm/Hg HCO3 (21-28) mmol/L ABG pH (7.35-7.45) ABG Total CO2 (22-28) mmol/L ABG O2 Saturation (95-98) % ABG O2 Content (15-23) ML/dL ABG Base Excess (-2.0-3.0) mmol/L ABG Hemoglobin (11.7-17.4) g/dL ABG Carboxyhemoglobin (0.5-1.5) % POC ABG HHb (Measured) (0.0-5.0) % ABG Methemoglobin (0.0-3.0) % ABG O2 Capacity (16-24) mL/dL Frederic Test A-a O2 Difference mm/Hg Hgb O2 Saturation (95.0-98.0) % Vent Mode Mechanical Rate FiO2 % Tidal Volume PEEP Sodium (132-148) mmol/l Potassium (3.6-5.0) MMOL/L Chloride (98-107) mmol/L Carbon Dioxide (22-30) mmol/L Anion Gap (10-20) BUN (7-17) mg/dl Creatinine (0.7-1.2) mg/dl Est GFR ( Amer) Est GFR (Non-Af Amer) Random Glucose (65-105) mg/dL Calcium (8.4-10.2) mg/dL Vancomycin Trough 15.7 H (5.0-10.0) ug/mL Blood Type A POSITIVE Antibody Screen Negative Crossmatch See Detail BBK History Checked Patient has bt Laboratory Results - last 24 hr 09/15/18 09/16/18 09/16/18 06:29 04:30 04:30 WBC 6.8 RBC 2.14 L Hgb 6.5 L* Hct 19.1 L MCV 89.2 MCH 30.2 MCHC 33.9 RDW 15.6 H Plt Count 4 L* D pCO2 pO2 HCO3 ABG pH ABG Total CO2 ABG O2 Saturation ABG O2 Content ABG Base Excess ABG Hemoglobin ABG Carboxyhemoglobin POC ABG HHb (Measured) ABG Methemoglobin ABG O2 Capacity Frederic Test A-a O2 Difference Hgb O2 Saturation Vent Mode Mechanical Rate FiO2 Tidal Volume PEEP Sodium Potassium Chloride Carbon Dioxide Anion Gap BUN Creatinine Est GFR ( Amer) Est GFR (Non-Af Amer) Random Glucose Calcium Vancomycin Trough 15.7 H Blood Type A POSITIVE Antibody Screen Negative Crossmatch See Detail BBK History Checked Patient has bt 09/16/18 09/16/18 04:30 04:36 WBC RBC Hgb Hct MCV MCH MCHC RDW Plt Count pCO2 44 pO2 100 HCO3 25.0 ABG pH 7.37 ABG Total CO2 26.8 ABG O2 Saturation 98.6 H ABG O2 Content 9.5 L ABG Base Excess 0.1 ABG Hemoglobin 6.9 L ABG Carboxyhemoglobin 1.6 H POC ABG HHb (Measured) 1.4 ABG Methemoglobin 1.3 ABG O2 Capacity 9.6 L Frederic Test Yes A-a O2 Difference 202.0 Hgb O2 Saturation 95.7 Vent Mode A/c Mechanical Rate 16 FiO2 50.0 Tidal Volume 400 PEEP 5 Sodium 151 H Potassium 3.8 Chloride 117 H Carbon Dioxide 26 Anion Gap 12 BUN 63 H Creatinine 0.8 Est GFR ( Amer) > 60 Est GFR (Non-Af Amer) > 60 Random Glucose 129 H Calcium 8.0 L Vancomycin Trough Blood Type Antibody Screen Crossmatch BBK History Checked Radiology Impressions: Radiology Impressions Chest X-Ray 09/16/18 06:00 IMPRESSION: Stable multifocal infiltrates/pulmonary edema. Stable position of support apparatus. Assessment/Plan - Assessment and Plan (Free Text) Assessment: IMPRESSION / MAJOR PROBLEMS NOW: 1. Acute hypoxemic Resp Failure, 2 bilat multi-lobar pneumonia and also pulm edema 2. Tumor Lysis Syndrome 3. Severe Sepsis with shock, 2 Pneumonia, r/o bacteremia 4. Acute on Chronic disease Anemia 5. h/o DVT- bilat CFV on Feb 5. 6. s/p Paracentesis Feb 5 for 2.5 liters 7 Hypernatremia: hypervolemic 8 LOUIE: ATN: sepsis induced PLAN: 1. Platlets and PRBs transfusion 2. Too unstable at this point to wean her, continue MV, amily is amenable to Trach if needed and patient become unweanable. Day #13 on MV. 3. On D5w , lower the rate to 50 cc/h and will start thiazide diuterics to treat hypervolemic hypernatremia, Pt has pulm edema. 4 On empiric abx / antifungal coverage with Merrem, Diflucan. Vanco held 2 high drug levels. 5. Full resuscitative measures remain as requested by Family.
[2018-09-16] MEDS ORDERED: Epoetin Alfa 20000 UNIT/ML (RENAL DOSE) SC ONE (16:35)
[2018-09-16] MEDS: metOLazone 5 MG TAB PO SCH (18:12)
[2018-09-17] MEDS: Proshield Plus GEL TOP SCH ×3 (01:44→18:34)
[2018-09-17 05:55] LABS: ABG ALLEN TEST YES; ARTERIAL BLOOD GAS HCO3 24.6 mmol/L (21-28); ARTERIAL BLOOD GAS HEMOGLOBIN 8.3 g/dL (11.7-17.4); ARTERIAL BLOOD GAS O2 CAPACITY 11.8 mL/dL (16-24); ARTERIAL BLOOD GAS O2 CONTENT 11.7 ML/dL (15-23); ARTERIAL BLOOD GAS O2 SAT 99.2 % (95-98); ARTERIAL BLOOD GAS PCO2 47 mm/Hg (35-45); ARTERIAL BLOOD GAS PH 7.34 (7.35-7.45); ARTERIAL BLOOD GAS PO2 196 mm/Hg (80-100); ARTERIAL BLOOD GAS TCO2 26.8 mmol/L (22-28)
[2018-09-17 06:15] LABS: HEMOGLOBIN 8.1 g/dL (12.0-16.0); MEAN CELL VOLUME 90.8 fl (81.0-99.0); MEAN CORPUSCULAR HEMOGLOBIN 30.4 pg (27.0-31.0); MEAN CORPUSCULAR HGB CONC 33.4 g/dL (33.0-37.0); RBC 2.68 Mil/uL (3.80-5.20); RED CELL DISTRIBUTION WIDTH 15.5 % (11.5-14.5); WHITE BLOOD COUNT 7.8 K/uL (4.8-10.8)
[2018-09-17 06:35] LABS: ALB/GLOB RATIO 0.7 (1.0-2.1); ALBUMIN 2.2 g/dL (3.5-5.0); ALT/SGPT 23 U/L (9-52); AST/SGOT 40 U/L (14-36); BLOOD UREA NITROGEN 62 mg/dl (7-17); GFR NON-AFRICAN AMERICAN > 60
[2018-09-17] MEDS: Propofol 10 mg/ml 1,000 MG/100 ML VIAL IV SCH ×2 (06:48→08:33)
--- NOTE | 2018-09-17 09:21 | CP.CCUPN ---
CCU Subjective - Physician Review Events Since Last Encounter (Free Text): 09/17/18 09:20 Sedated, intubated, Hb is 8.4 and platles also increased after transfusion,continue to have hematuria/vaginal bleed. CCU Objective - Vital Signs / Intake & Output Vital Signs (Last 4 hours): Vital Signs Pulse Resp BP Pulse Ox 09/17/18 06:00 110 H 22 94/54 L 95 Intake and Output (Last 8hrs): Intake & Output 09/16/18 09/17/18 09/17/18 22:59 06:59 14:59 Intake Total 1207 814 100 Output Total 150 750 Balance 1057 64 100 Weight 179 lb 6.4 oz Intake: IV 482 534 100 Tube Feeding 280 280 Blood Product 325 Red Blood Cells Cpd As1 325 Lr Unit [id number] Free Water Flush 100 Other 20 Red Blood Cells Cpd As1 20 Lr Unit [id number] Output: Urine 150 750 Urethral (Orellana) 150 750 - Physical Exam Narrative Physical Exam (Free Text): 09/17/18 09:21 P/E neck : no JVD Lungs: decreased breath sounds bases and basal crackles Abdomen: soft: sligtly distended Ext: +1 edema Heart: no gallop Head: Positive for: Atraumatic, Normocephalic Pupils: Positive for: PERRL Extroacular Muscles: Positive for: EOMI Conjunctiva: Negative for: Injected, Icteric Ears: Positive for: Normal Mouth: Positive for: Moist Mucous Membranes Nose (Internal): Positive for: Normal Inspection Neck: Positive for: Normal Range of Motion, Trachea Midline. Negative for: Meningeal Signs, MIDLINE TENDERNESS, Paraspinal Tenderness, JVD, Lymphadenopathy, Bruit, Other Respiratory/Chest: Positive for: Good Air Exchange, Rales, Retracting, Rhonchi. Negative for: Respiratory Distress, Accessory Muscle Use, Wheezes, Tachypneic Cardiovascular: Positive for: Regular Rate and Rhythm, Normal S1, S2, Peripheal Pulses Present. Negative for: Murmurs, Irregular Rhythm, Tachycardic, Bradycardic Abdomen: Positive for: Distention, Normal Bowel Sounds. Negative for: Tenderness Breast/Axillary: Positive for: Other (fungating necrotic mass to Right Breast) Upper Extremity: Positive for: Edema, NORMAL PULSES. Negative for: Normal Inspection, Cyanosis Lower Extremity: Positive for: Edema, NORMAL PULSES. Negative for: Normal Inspection Psychiatric: Positive for: Other (Sedated and orally intubated). Negative for: Alert, Oriented x 3 - Medications Active Medications: Active Medications Generic Name Dose Route Start Last Admin Trade Name Teeq PRN Reason Stop Dose Admin Allopurinol 100 mg 09/14/18 09:00 09/16/18 08:54 Zyloprim NG 100 mg DAILY [facility]IS Administration Apixaban 5 mg 09/04/18 09:00 09/06/18 17:08 Eliquis PO Not Given BID GLADIS Protocol Dimethicone 1 applic 09/06/18 17:00 09/17/18 01:44 Proshield Plus Skin Protectant TOP 1 applic Q8 GLADIS Administration Ferrous Gluconate 324 mg 09/04/18 09:00 09/16/18 16:16 Fergon PO 324 mg TID GLADIS Administration Furosemide 20 mg 09/04/18 09:00 09/06/18 17:10 Lasix PO Not Given BID GLADIS Vancomycin HCl 750 mg/ Sodium 250 mls @ 166.667 mls/hr 09/08/18 21:00 09/14/18 11:06 Chloride IVPB Not Given Q12 [facility]ADIS Protocol Fluconazole 50 mls @ 50 mls/hr 09/09/18 11:30 09/16/18 08:52 Diflucan Iv 100 Mg/50 Ml Ns IVPB 50 mls/hr DAILY [facility] Administration Protocol Dextrose 1,000 mls @ 50 mls/hr 09/16/18 15:15 09/16/18 15:15 Dextrose 5% In Water 1000 Ml IV 09/17/18 15:10 50 mls/hr .Q20H [facility] Administration Propofol 1,000 mg in 100 mls @ 3.266 mls/hr 09/17/18 03:15 09/17/18 08:33 Diprivan IV 09/18/18 03:04 10 mcg/kg/min .Q24H [facility] 3.266 mls/hr Administration Protocol 10 MCG/KG/MIN Metolazone 5 mg 09/16/18 15:45 09/16/18 18:12 Zaroxolyn PO 5 mg DAILY [facility] Administration Metoprolol Tartrate 12.5 mg 09/03/18 23:45 09/06/18 21:59 Lopressor PO Not Given Q12 [facility]IS Multivitamins/Minerals 1 tab 09/04/18 09:00 09/16/18 08:54 Therapeutic-M Tab PO 1 tab DAILY [facility]ADIS Administration Sodium Bicarbonate 650 mg 09/04/18 09:00 09/16/18 16:16 Sodium Bicarbonate Tab PO 650 mg BID GLADIS Administration - Patient Studies Lab Studies: Microbiology Studies 09/15/18 15:35 Blood Culture - Preliminary Blood-Thru Central Line NO GROWTH AFTER 24 HOURS 09/15/18 15:25 Blood Culture - Preliminary Blood-Thru Central Line NO GROWTH AFTER 24 HOURS Lab Studies 09/17/18 09/17/18 09/17/18 Range/Units 05:11 04:50 04:50 WBC 7.8 (4.8-10.8) K/uL RBC 2.68 L (3.80-5.20) Mil/uL Hgb 8.1 L (12.0-16.0) g/dL Hct 24.3 L (34.0-47.0) % MCV 90.8 (81.0-99.0) fl MCH 30.4 (27.0-31.0) pg MCHC 33.4 (33.0-37.0) g/dL RDW 15.5 H (11.5-14.5) % Plt Count 24 L* D (130-400) K/uL pCO2 47 H (35-45) mm/Hg pO2 196 H (80-100) mm/Hg HCO3 24.6 (21-28) mmol/L ABG pH 7.34 L (7.35-7.45) ABG Total CO2 26.8 (22-28) mmol/L ABG O2 Saturation 99.2 H (95-98) % ABG O2 Content 11.7 L (15-23) ML/dL ABG Base Excess -0.5 (-2.0-3.0) mmol/L ABG Hemoglobin 8.3 L (11.7-17.4) g/dL ABG Carboxyhemoglobin 1.3 (0.5-1.5) % POC ABG HHb (Measured) 0.8 (0.0-5.0) % ABG Methemoglobin 1.4 (0.0-3.0) % ABG O2 Capacity 11.8 L (16-24) mL/dL Frederic Test Yes A-a O2 Difference 102.0 mm/Hg Hgb O2 Saturation 96.5 (95.0-98.0) % Vent Mode A/c Mechanical Rate 16 FiO2 50.0 % Tidal Volume 400 PEEP 5 Sodium 149 H (132-148) mmol/l Potassium 4.2 (3.6-5.0) MMOL/L Chloride 117 H (98-107) mmol/L Carbon Dioxide 24 (22-30) mmol/L Anion Gap 12 (10-20) BUN 62 H (7-17) mg/dl Creatinine 0.7 (0.7-1.2) mg/dl Est GFR ( Amer) > 60 Est GFR (Non-Af Amer) > 60 Random Glucose 120 H (65-105) mg/dL Calcium 8.0 L (8.4-10.2) mg/dL Phosphorus 3.9 (2.5-4.5) mg/dl Magnesium 1.9 (1.6-2.3) MG/DL Total Bilirubin 0.5 (0.2-1.3) mg/dl AST 40 H (14-36) U/L ALT 23 (9-52) U/L Alkaline Phosphatase 123 (38-126) U/L Total Protein 5.3 L (6.3-8.2) G/DL Albumin 2.2 L (3.5-5.0) g/dL Globulin 3.1 (2.2-3.9) gm/dL Albumin/Globulin Ratio 0.7 L (1.0-2.1) Blood Type Antibody Screen Crossmatch BBK History Checked 09/15/18 Range/Units 06:29 WBC (4.8-10.8) K/uL RBC (3.80-5.20) Mil/uL Hgb (12.0-16.0) g/dL Hct (34.0-47.0) % MCV (81.0-99.0) fl MCH (27.0-31.0) pg MCHC (33.0-37.0) g/dL RDW (11.5-14.5) % Plt Count (130-400) K/uL pCO2 (35-45) mm/Hg pO2 (80-100) mm/Hg HCO3 (21-28) mmol/L ABG pH (7.35-7.45) ABG Total CO2 (22-28) mmol/L ABG O2 Saturation (95-98) % ABG O2 Content (15-23) ML/dL ABG Base Excess (-2.0-3.0) mmol/L ABG Hemoglobin (11.7-17.4) g/dL ABG Carboxyhemoglobin (0.5-1.5) % POC ABG HHb (Measured) (0.0-5.0) % ABG Methemoglobin (0.0-3.0) % ABG O2 Capacity (16-24) mL/dL Frederic Test A-a O2 Difference mm/Hg Hgb O2 Saturation (95.0-98.0) % Vent Mode Mechanical Rate FiO2 % Tidal Volume PEEP Sodium (132-148) mmol/l Potassium (3.6-5.0) MMOL/L Chloride (98-107) mmol/L Carbon Dioxide (22-30) mmol/L Anion Gap (10-20) BUN (7-17) mg/dl Creatinine (0.7-1.2) mg/dl Est GFR ( Amer) Est GFR (Non-Af Amer) Random Glucose (65-105) mg/dL Calcium (8.4-10.2) mg/dL Phosphorus (2.5-4.5) mg/dl Magnesium (1.6-2.3) MG/DL Total Bilirubin (0.2-1.3) mg/dl AST (14-36) U/L ALT (9-52) U/L Alkaline Phosphatase (38-126) U/L Total Protein (6.3-8.2) G/DL Albumin (3.5-5.0) g/dL Globulin (2.2-3.9) gm/dL Albumin/Globulin Ratio (1.0-2.1) Blood Type A POSITIVE Antibody Screen Negative Crossmatch See Detail BBK History Checked Patient has bt Laboratory Results - last 24 hr 09/15/18 09/17/18 09/17/18 06:29 04:50 04:50 WBC 7.8 RBC 2.68 L Hgb 8.1 L Hct 24.3 L MCV 90.8 MCH 30.4 MCHC 33.4 RDW 15.5 H Plt Count 24 L* D pCO2 pO2 HCO3 ABG pH ABG Total CO2 ABG O2 Saturation ABG O2 Content ABG Base Excess ABG Hemoglobin ABG Carboxyhemoglobin POC ABG HHb (Measured) ABG Methemoglobin ABG O2 Capacity Frederic Test A-a O2 Difference Hgb O2 Saturation Vent Mode Mechanical Rate FiO2 Tidal Volume PEEP Sodium 149 H Potassium 4.2 Chloride 117 H Carbon Dioxide 24 Anion Gap 12 BUN 62 H Creatinine 0.7 Est GFR ( Amer) > 60 Est GFR (Non-Af Amer) > 60 Random Glucose 120 H Calcium 8.0 L Phosphorus 3.9 Magnesium 1.9 Total Bilirubin 0.5 AST 40 H ALT 23 Alkaline Phosphatase 123 Total Protein 5.3 L Albumin 2.2 L Globulin 3.1 Albumin/Globulin Ratio 0.7 L Blood Type A POSITIVE Antibody Screen Negative Crossmatch See Detail BBK History Checked Patient has bt 09/17/18 05:11 WBC RBC Hgb Hct MCV MCH MCHC RDW Plt Count pCO2 47 H pO2 196 H HCO3 24.6 ABG pH 7.34 L ABG Total CO2 26.8 ABG O2 Saturation 99.2 H ABG O2 Content 11.7 L ABG Base Excess -0.5 ABG Hemoglobin 8.3 L ABG Carboxyhemoglobin 1.3 POC ABG HHb (Measured) 0.8 ABG Methemoglobin 1.4 ABG O2 Capacity 11.8 L Frederic Test Yes A-a O2 Difference 102.0 Hgb O2 Saturation 96.5 Vent Mode A/c Mechanical Rate 16 FiO2 50.0 Tidal Volume 400 PEEP 5 Sodium Potassium Chloride Carbon Dioxide Anion Gap BUN Creatinine Est GFR ( Amer) Est GFR (Non-Af Amer) Random Glucose Calcium Phosphorus Magnesium Total Bilirubin AST ALT Alkaline Phosphatase Total Protein Albumin Globulin Albumin/Globulin Ratio Blood Type Antibody Screen Crossmatch BBK History Checked Radiology Impressions: Radiology Impressions Chest X-Ray 09/16/18 06:00 IMPRESSION: Stable multifocal infiltrates/pulmonary edema. Stable position of support apparatus. Assessment/Plan - Assessment and Plan (Free Text) Assessment: IMPRESSION / MAJOR PROBLEMS NOW: 1. Acute hypoxemic Resp Failure, 2 bilat multi-lobar pneumonia and also pulm edema 2. Tumor Lysis Syndrome 3. Severe Sepsis with shock, 2 Pneumonia, r/o bacteremia 4. Acute on Chronic disease Anemia 5. h/o DVT- bilat CFV on Feb 5. 6. s/p Paracentesis Feb 5 for 2.5 liters 7 Hypernatremia: hypervolemic :better 148 8 LOUIE: ATN: sepsis induced PLAN: 1. Platlets and PRBs transfusion 2. Too unstable at this point to wean her, continue MV, amily is amenable to Trach if needed and patient become unweanable. Day #14 on MV. 3. On D5w , lowered the rate to 50 cc/h and started thiazide diuterics to treat hypervolemic hypernatremia, Pt has pulm edema. 4 On empiric abx / antifungal coverage with Merrem, Diflucan. Guerreroo held 2 high drug levels. 5. Full resuscitative measures remain as requested by Family. 6- Continue to monitoe Hb and platlets and transfusion as needed.
[2018-09-17] MEDS: Fluconazole IV 100mg/50 ml NS 50 ML IVPB SCH (09:38)
[2018-09-17] MEDS: Multivitamin With Minerals Tab PO SCH (09:42)
[2018-09-17] MEDS: metOLazone 5 MG TAB PO SCH (09:43)
--- NOTE | 2018-09-17 11:12 | RAD ---
Date of service: 09/17/2018 PROCEDURE: CHEST RADIOGRAPH, 1 VIEW HISTORY: Intubated COMPARISON: 2018. FINDINGS: LUNGS: Stable multifocal infiltrates left greater than right. PLEURA: No pneumothorax or pleural fluid seen. CARDIOVASCULAR: No aortic atherosclerotic calcification present. No significant interval change compared to the prior examination(s). Venous access catheter in stable, satisfactory position. OSSEOUS STRUCTURES: No significant abnormalities. VISUALIZED UPPER ABDOMEN: Normal. OTHER FINDINGS: Stable, satisfactory position ventilatory, nasogastric apparatus. IMPRESSION: No significant interval change compared to the prior examination(s).
--- NOTE | 2018-09-17 18:57 | CP.PCM.PN ---
Subjective - Date & Time of Evaluation Date of Evaluation: 09/17/18 Time of Evaluation: 19:30 - Subjective Subjective: Seen and examined at the bed side. Poor Prognosis. Objective - Vital Signs/Intake and Output Vital Signs (last 24 hours): Temp Pulse Resp BP Pulse Ox 100 F H 114 H 22 108/60 97 09/17/18 16:00 09/17/18 18:00 09/17/18 18:00 09/17/18 18:00 09/17/18 18:00 Intake and Output: 09/17/18 09/17/18 06:59 18:59 Intake Total 1168 1556 Output Total 750 925 Balance 418 631 - Medications Medications: Current Medications Allopurinol (Zyloprim) 100 mg NG DAILY [facility]ADIS Last Admin: 09/17/18 09:43 Dose: 100 mg Apixaban (Eliquis) 5 mg PO BID GLADIS; Protocol Last Admin: 09/06/18 17:08 Dose: Not Given Dimethicone (Proshield Plus Skin Protectant) 1 applic TOP Q8 [facility] Last Admin: 09/17/18 18:34 Dose: 1 applic Ferrous Gluconate (Fergon) 324 mg PO TID [facility]ADIS Last Admin: 09/17/18 18:33 Dose: 324 mg Furosemide (Lasix) 20 mg PO BID [facility]ADIS Last Admin: 09/06/18 17:10 Dose: Not Given Vancomycin HCl 750 mg/ Sodium (Chloride) 250 mls @ 166.667 mls/hr IVPB Q12 [facility]ADIS; Protocol Last Admin: 09/14/18 11:06 Dose: Not Given Fluconazole (Diflucan Iv 100 Mg/50 Ml Ns) 50 mls @ 50 mls/hr IVPB DAILY GLADIS; Protocol Last Admin: 09/17/18 09:38 Dose: 50 mls/hr Propofol (Diprivan) 1,000 mg in 100 mls @ 3.266 mls/hr IV .Q24H [facility]ADIS; Protocol Stop: 09/18/18 03:04 Last Admin: 09/17/18 08:33 Dose: 10 mcg/kg/min, 3.266 mls/hr Dextrose (Dextrose 5% In Water 1000 Ml) 1,000 mls @ 50 mls/hr IV .Q20H [facility]IS Stop: 09/18/18 16:47 Metolazone (Zaroxolyn) 5 mg PO DAILY [facility]ADIS Last Admin: 09/17/18 09:43 Dose: 5 mg Metoprolol Tartrate (Lopressor) 12.5 mg PO Q12 [facility] Last Admin: 09/06/18 21:59 Dose: Not Given Morphine Sulfate (Morphine) 2 mg IVP Q6 PRN PRN Reason: Pain, severe (8-10) Last Admin: 09/17/18 18:53 Dose: 2 mg Multivitamins/Minerals (Therapeutic-M Tab) 1 tab PO DAILY [facility] Last Admin: 09/17/18 09:42 Dose: 1 tab Sodium Bicarbonate (Sodium Bicarbonate Tab) 650 mg PO BID [facility] Last Admin: 09/17/18 18:33 Dose: 650 mg - Labs Labs: 09/17/18 04:50 09/17/18 04:50 PT 12.8 Seconds (9.8-13.1) 09/13/18 04:35 INR 1.1 09/13/18 04:35 APTT 26.2 Seconds (25.6-37.1) 09/13/18 04:35 Assessment and Plan (1) Acute respiratory failure with hypoxemia Status: Acute (2) Ascites, malignant Status: Acute (3) Congestive heart failure (CHF) Status: Acute (4) Stage IV breast cancer in female Status: Acute (5) Severe anemia Status: Resolved (6) DVT of lower extremity, bilateral Status: Chronic (7) Thrombocytopenia Status: Resolved - Assessment and Plan (Free Text) Plan: C/w current care
--- NOTE | 2018-09-17 18:57 | CP.PCM.PN ---
Subjective - Date & Time of Evaluation Date of Evaluation: 09/16/18 Time of Evaluation: 15:20 - Subjective Subjective: Seen and examined at the bed side. Blood work showed worsening. Poor prognosis. D/w the oncologist who stated that family informed of the poor prognosis Objective - Vital Signs/Intake and Output Vital Signs (last 24 hours): Temp Pulse Resp BP Pulse Ox 100 F H 114 H 22 108/60 97 09/17/18 16:00 09/17/18 18:00 09/17/18 18:00 09/17/18 18:00 09/17/18 18:00 Intake and Output: 09/17/18 09/17/18 06:59 18:59 Intake Total 1168 1556 Output Total 750 925 Balance 418 631 - Medications Medications: Current Medications Allopurinol (Zyloprim) 100 mg NG DAILY [facility] Last Admin: 09/17/18 09:43 Dose: 100 mg Apixaban (Eliquis) 5 mg PO BID GLADIS; Protocol Last Admin: 09/06/18 17:08 Dose: Not Given Dimethicone (Proshield Plus Skin Protectant) 1 applic TOP Q8 [facility] Last Admin: 09/17/18 18:34 Dose: 1 applic Ferrous Gluconate (Fergon) 324 mg PO TID [facility] Last Admin: 09/17/18 18:33 Dose: 324 mg Furosemide (Lasix) 20 mg PO BID [facility] Last Admin: 09/06/18 17:10 Dose: Not Given Vancomycin HCl 750 mg/ Sodium (Chloride) 250 mls @ 166.667 mls/hr IVPB Q12 [facility]AD[facility]; Protocol Last Admin: 09/14/18 11:06 Dose: Not Given Fluconazole (Diflucan Iv 100 Mg/50 Ml Ns) 50 mls @ 50 mls/hr IVPB DAILY GLAD[facility]; Protocol Last Admin: 09/17/18 09:38 Dose: 50 mls/hr Propofol (Diprivan) 1,000 mg in 100 mls @ 3.266 mls/hr IV .Q24H [facility]; Protocol Stop: 09/18/18 03:04 Last Admin: 09/17/18 08:33 Dose: 10 mcg/kg/min, 3.266 mls/hr Dextrose (Dextrose 5% In Water 1000 Ml) 1,000 mls @ 50 mls/hr IV .Q20H [facility] Stop: 09/18/18 16:47 Metolazone (Zaroxolyn) 5 mg PO DAILY [facility] Last Admin: 09/17/18 09:43 Dose: 5 mg Metoprolol Tartrate (Lopressor) 12.5 mg PO Q12 [facility] Last Admin: 09/06/18 21:59 Dose: Not Given Morphine Sulfate (Morphine) 2 mg IVP Q6 PRN PRN Reason: Pain, severe (8-10) Last Admin: 09/17/18 18:53 Dose: 2 mg Multivitamins/Minerals (Therapeutic-M Tab) 1 tab PO DAILY [facility] Last Admin: 09/17/18 09:42 Dose: 1 tab Sodium Bicarbonate (Sodium Bicarbonate Tab) 650 mg PO BID [facility] Last Admin: 09/17/18 18:33 Dose: 650 mg - Labs Labs: 09/17/18 04:50 09/17/18 04:50 PT 12.8 Seconds (9.8-13.1) 09/13/18 04:35 INR 1.1 09/13/18 04:35 APTT 26.2 Seconds (25.6-37.1) 09/13/18 04:35 Assessment and Plan (1) Acute respiratory failure with hypoxemia Status: Acute (2) Ascites, malignant Status: Acute (3) Congestive heart failure (CHF) Status: Acute (4) Stage IV breast cancer in female Status: Acute (5) Severe anemia Status: Resolved (6) DVT of lower extremity, bilateral Status: Chronic (7) Thrombocytopenia Status: Resolved
--- NOTE | 2018-09-17 23:07 | CP.PCM.PN ---
Subjective - Date & Time of Evaluation Date of Evaluation: 09/15/18 Time of Evaluation: 17:00 - Subjective Subjective: Vented, opens eyes Objective - Vital Signs/Intake and Output Vital Signs (last 24 hours): Temp Pulse Resp BP Pulse Ox 100.2 F H 113 H 21 100/52 L 97 09/17/18 20:00 09/17/18 21:00 09/17/18 21:00 09/17/18 21:00 09/17/18 21:00 Intake and Output: 09/17/18 09/18/18 18:59 06:59 Intake Total 1556 136 Output Total 925 Balance 631 136 - Medications Medications: Current Medications Allopurinol (Zyloprim) 100 mg NG DAILY [facility] Last Admin: 09/17/18 09:43 Dose: 100 mg Apixaban (Eliquis) 5 mg PO BID [facility]; Protocol Last Admin: 09/06/18 17:08 Dose: Not Given Dimethicone (Proshield Plus Skin Protectant) 1 applic TOP Q8 [facility] Last Admin: 09/17/18 18:34 Dose: 1 applic Ferrous Gluconate (Fergon) 324 mg PO TID [facility] Last Admin: 09/17/18 18:33 Dose: 324 mg Furosemide (Lasix) 20 mg PO BID [facility] Last Admin: 09/06/18 17:10 Dose: Not Given Vancomycin HCl 750 mg/ Sodium (Chloride) 250 mls @ 166.667 mls/hr IVPB Q12 [facility]; Protocol Last Admin: 09/14/18 11:06 Dose: Not Given Fluconazole (Diflucan Iv 100 Mg/50 Ml Ns) 50 mls @ 50 mls/hr IVPB DAILY [facility]; Protocol Last Admin: 09/17/18 09:38 Dose: 50 mls/hr Propofol (Diprivan) 1,000 mg in 100 mls @ 3.266 mls/hr IV .Q24H [facility]; Protocol Stop: 09/18/18 03:04 Last Titration: 09/17/18 19:55 Dose: 10 mcg/kg/min, 3.266 mls/hr Dextrose (Dextrose 5% In Water 1000 Ml) 1,000 mls @ 50 mls/hr IV .Q20H [facility] Stop: 09/18/18 16:47 Metolazone (Zaroxolyn) 5 mg PO DAILY [facility] Last Admin: 09/17/18 09:43 Dose: 5 mg Metoprolol Tartrate (Lopressor) 12.5 mg PO Q12 [facility] Last Admin: 09/06/18 21:59 Dose: Not Given Morphine Sulfate (Morphine) 2 mg IVP Q6 PRN PRN Reason: Pain, severe (8-10) Last Admin: 09/17/18 18:53 Dose: 2 mg Multivitamins/Minerals (Therapeutic-M Tab) 1 tab PO DAILY [facility] Last Admin: 09/17/18 09:42 Dose: 1 tab Sodium Bicarbonate (Sodium Bicarbonate Tab) 650 mg PO BID [facility] Last Admin: 09/17/18 18:33 Dose: 650 mg - Labs Labs: 09/17/18 04:50 09/17/18 04:50 PT 12.8 Seconds (9.8-13.1) 09/13/18 04:35 INR 1.1 09/13/18 04:35 APTT 26.2 Seconds (25.6-37.1) 09/13/18 04:35 - Head Exam Head Exam: ATRAUMATIC - Eye Exam Eye Exam: Normal appearance - ENT Exam ENT Exam: Mucous Membranes Dry - Respiratory Exam Respiratory Exam: NORMAL BREATHING PATTERN - Cardiovascular Exam Cardiovascular Exam: +S1, +S2 - GI/Abdominal Exam GI & Abdominal Exam: Normal Bowel Sounds Assessment and Plan (1) Pancytopenia Assessment & Plan: recent chemotherapy WBC normalized cont to require PRBC and plt transfusions cont. to have hematuria and vaginal bleeding Status: Acute (2) Pulmonary embolism Assessment & Plan: anticoagulation D/C'd due to bleeding. 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 to wish full code. Status: Acute
--- NOTE | 2018-09-17 23:10 | CP.PCM.PN ---
Subjective - Date & Time of Evaluation Date of Evaluation: 09/16/18 Time of Evaluation: 17:00 - Subjective Subjective: Vented, less arousable per family Objective - Vital Signs/Intake and Output Vital Signs (last 24 hours): Temp Pulse Resp BP Pulse Ox 100.2 F H 113 H 21 100/52 L 97 09/17/18 20:00 09/17/18 21:00 09/17/18 21:00 09/17/18 21:00 09/17/18 21:00 Intake and Output: 09/17/18 09/18/18 18:59 06:59 Intake Total 1556 136 Output Total 925 Balance 631 136 - Medications Medications: Current Medications Allopurinol (Zyloprim) 100 mg NG DAILY [facility] Last Admin: 09/17/18 09:43 Dose: 100 mg Apixaban (Eliquis) 5 mg PO BID [facility]; Protocol Last Admin: 09/06/18 17:08 Dose: Not Given Dimethicone (Proshield Plus Skin Protectant) 1 applic TOP Q8 [facility] Last Admin: 09/17/18 18:34 Dose: 1 applic Ferrous Gluconate (Fergon) 324 mg PO TID [facility] Last Admin: 09/17/18 18:33 Dose: 324 mg Furosemide (Lasix) 20 mg PO BID [facility] Last Admin: 09/06/18 17:10 Dose: Not Given Vancomycin HCl 750 mg/ Sodium (Chloride) 250 mls @ 166.667 mls/hr IVPB Q12 [facility]; Protocol Last Admin: 09/14/18 11:06 Dose: Not Given Fluconazole (Diflucan Iv 100 Mg/50 Ml Ns) 50 mls @ 50 mls/hr IVPB DAILY [facility]; Protocol Last Admin: 09/17/18 09:38 Dose: 50 mls/hr Propofol (Diprivan) 1,000 mg in 100 mls @ 3.266 mls/hr IV .Q24H [facility]; Protocol Stop: 09/18/18 03:04 Last Titration: 09/17/18 19:55 Dose: 10 mcg/kg/min, 3.266 mls/hr Dextrose (Dextrose 5% In Water 1000 Ml) 1,000 mls @ 50 mls/hr IV .Q20H [facility] Stop: 09/18/18 16:47 Metolazone (Zaroxolyn) 5 mg PO DAILY [facility] Last Admin: 09/17/18 09:43 Dose: 5 mg Metoprolol Tartrate (Lopressor) 12.5 mg PO Q12 [facility] Last Admin: 09/06/18 21:59 Dose: Not Given Morphine Sulfate (Morphine) 2 mg IVP Q6 PRN PRN Reason: Pain, severe (8-10) Last Admin: 09/17/18 18:53 Dose: 2 mg Multivitamins/Minerals (Therapeutic-M Tab) 1 tab PO DAILY [facility] Last Admin: 09/17/18 09:42 Dose: 1 tab Sodium Bicarbonate (Sodium Bicarbonate Tab) 650 mg PO BID [facility] Last Admin: 09/17/18 18:33 Dose: 650 mg - Labs Labs: 09/17/18 04:50 09/17/18 04:50 PT 12.8 Seconds (9.8-13.1) 09/13/18 04:35 INR 1.1 09/13/18 04:35 APTT 26.2 Seconds (25.6-37.1) 09/13/18 04:35 - Head Exam Head Exam: ATRAUMATIC - Eye Exam Eye Exam: Normal appearance - ENT Exam ENT Exam: Mucous Membranes Dry - Respiratory Exam Respiratory Exam: Decreased Breath Sounds - Cardiovascular Exam Cardiovascular Exam: +S1, +S2 - GI/Abdominal Exam GI & Abdominal Exam: Normal Bowel Sounds Assessment and Plan (1) Pancytopenia Assessment & Plan: WBC normalized cont. to require PRBC and plt almost daily cont. 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
[2018-09-18] MEDS: Proshield Plus GEL TOP SCH ×3 (01:29→17:14)
[2018-09-18] MEDS: Propofol 10 mg/ml 1,000 MG/100 ML VIAL IV SCH ×2 (03:33→18:06)
[2018-09-18 05:29] LABS: MEAN CELL VOLUME 91.6 fl (81.0-99.0); MEAN CORPUSCULAR HEMOGLOBIN 30.9 pg (27.0-31.0); MEAN CORPUSCULAR HGB CONC 33.7 g/dL (33.0-37.0); RBC 1.94 Mil/uL (3.80-5.20); RED CELL DISTRIBUTION WIDTH 15.6 % (11.5-14.5); WHITE BLOOD COUNT 4.8 K/uL (4.8-10.8)
[2018-09-18 05:30] LABS: ALB/GLOB RATIO 0.8 (1.0-2.1); ALBUMIN 2.2 g/dL (3.5-5.0); ALT/SGPT 27 U/L (9-52); AST/SGOT 33 U/L (14-36); BLOOD UREA NITROGEN 73 mg/dl (7-17); GFR NON-AFRICAN AMERICAN > 60
[2018-09-18 05:45] LABS: ABG ALLEN TEST YES; ARTERIAL BLOOD GAS HCO3 29.4 mmol/L (21-28); ARTERIAL BLOOD GAS HEMOGLOBIN 4.7 g/dL (11.7-17.4); ARTERIAL BLOOD GAS O2 CAPACITY 6.3 mL/dL (16-24); ARTERIAL BLOOD GAS O2 CONTENT 6.2 ML/dL (15-23); ARTERIAL BLOOD GAS O2 SAT 98.9 % (95-98); ARTERIAL BLOOD GAS PCO2 39 mm/Hg (35-45); ARTERIAL BLOOD GAS PH 7.49 (7.35-7.45); ARTERIAL BLOOD GAS PO2 67 mm/Hg (80-100); ARTERIAL BLOOD GAS TCO2 30.9 mmol/L (22-28)
--- NOTE | 2018-09-18 08:34 | RAD ---
Date of service: 09/18/2018 HISTORY: [id number] COMPARISON: Portable chest 09/17/2018. FINDINGS: LUNGS: Endotracheal and nasogastric tubes are not significantly changed in position as well as left MediPort. Persistent bilateral infiltrates are identified slightly increased at the left perihilar region and unchanged otherwise. PLEURA: No significant pleural effusion identified, no pneumothorax apparent. CARDIOVASCULAR: No aortic atherosclerotic calcification present. Normal cardiac size. No pulmonary vascular congestion. OSSEOUS STRUCTURES: No significant abnormalities. VISUALIZED UPPER ABDOMEN: Normal. OTHER FINDINGS: None. IMPRESSION: Bilateral infiltrates are again identified with increased infiltrate noted at the left perihilar region.
[2018-09-18] MEDS: Multivitamin With Minerals Tab PO SCH (08:52)
[2018-09-18] MEDS: metOLazone 5 MG TAB PO SCH (08:53)
[2018-09-18] MEDS: Fluconazole IV 100mg/50 ml NS 50 ML IVPB SCH (08:54)
--- NOTE | 2018-09-18 10:33 | CP.PCM.PN ---
Subjective - Date & Time of Evaluation Date of Evaluation: 09/18/18 Time of Evaluation: 10:32 - Subjective Subjective: ID note- Patient seen and examined today in ICU. remains on the vent. not on pressors. on low dose sedation as per nurse. low grade fevers. opens eyes when her name is called. Objective - Vital Signs/Intake and Output Vital Signs (last 24 hours): Temp Pulse Resp BP Pulse Ox 100 F H 121 H 20 104/58 L 98 09/18/18 10:24 09/18/18 10:24 09/18/18 10:24 09/18/18 10:24 09/18/18 10:00 Intake and Output: 09/18/18 09/18/18 06:59 18:59 Intake Total 1631 60 Output Total 500 Balance 1131 60 - Medications Medications: Current Medications Allopurinol (Zyloprim) 100 mg NG DAILY [facility] Last Admin: 09/18/18 08:53 Dose: 100 mg Apixaban (Eliquis) 5 mg PO BID [facility]; Protocol Last Admin: 09/06/18 17:08 Dose: Not Given Dimethicone (Proshield Plus Skin Protectant) 1 applic TOP Q8 [facility] Last Admin: 09/18/18 01:29 Dose: 1 applic Ferrous Gluconate (Fergon) 324 mg PO TID [facility] Last Admin: 09/18/18 08:52 Dose: 324 mg Furosemide (Lasix) 20 mg PO BID [facility] Last Admin: 09/06/18 17:10 Dose: Not Given Vancomycin HCl 750 mg/ Sodium (Chloride) 250 mls @ 166.667 mls/hr IVPB Q12 [facility]; Protocol Last Admin: 09/14/18 11:06 Dose: Not Given Fluconazole (Diflucan Iv 100 Mg/50 Ml Ns) 50 mls @ 50 mls/hr IVPB DAILY [facility]; Protocol Last Admin: 09/18/18 08:54 Dose: 50 mls/hr Dextrose (Dextrose 5% In Water 1000 Ml) 1,000 mls @ 50 mls/hr IV .Q20H [facility] Stop: 09/18/18 16:47 Last Admin: 09/18/18 03:34 Dose: 50 mls/hr Propofol (Diprivan) 1,000 mg in 100 mls @ 4.882 mls/hr IV .[id number] [facility]; Protocol Stop: 09/19/18 00:55 Last Admin: 09/18/18 03:33 Dose: 10 mcg/kg/min, 4.882 mls/hr Metolazone (Zaroxolyn) 5 mg PO DAILY [facility] Last Admin: 09/18/18 08:53 Dose: 5 mg Metoprolol Tartrate (Lopressor) 12.5 mg PO Q12 [facility] Last Admin: 09/06/18 21:59 Dose: Not Given Morphine Sulfate (Morphine) 2 mg IVP Q6 PRN PRN Reason: Pain, severe (8-10) Last Admin: 09/18/18 08:49 Dose: 2 mg Multivitamins/Minerals (Therapeutic-M Tab) 1 tab PO DAILY [facility] Last Admin: 09/18/18 08:52 Dose: 1 tab Sodium Bicarbonate (Sodium Bicarbonate Tab) 650 mg PO BID [facility] Last Admin: 09/18/18 08:52 Dose: 650 mg - Labs Labs: - Additional Findings Additional findings: - Constitutional Appears: Chronically Ill Additional comments: intubated but awake - Eye Exam Eye Exam: PERRL - ENT Exam Additional comments: ET and OGT in place - Neck Exam Additional comments: supple - Respiratory Exam Additional comments: On the vent - Cardiovascular Exam Cardiovascular Exam: Tachycardia, +S1, +S2 - GI/Abdominal Exam Additional comments: distended, soft hypoactive BS umbilical region with mass like lesion with denuded skin , no pus, bloody discharge scant only - Extremities Exam Additional comments: b/l 1+ edema in LE and left hand edema right posterior calf with multiple erythematous papules like lesion ( could be mets to the skin) - Neurological Exam Additional comments: more alert and responds to some commands and opens her eyes when her name is called - Skin Additional comments: right breast entirely covered with fungating looking round erythematous lesions few have opened up and bleeding superfically - Additional Findings Additional findings: lines- ET and OG tube left chest mediport hardwick cath- draining bloody urine rectal tube with brown liquid stool Laboratory Results - last 72 hr 09/15/18 09/16/18 09/16/18 06:29 04:30 04:30 WBC 6.8 RBC 2.14 L Hgb 6.5 L* Hct 19.1 L MCV 89.2 MCH 30.2 MCHC 33.9 RDW 15.6 H Plt Count 4 L* D pCO2 pO2 HCO3 ABG pH ABG Total CO2 ABG O2 Saturation ABG O2 Content ABG Base Excess ABG Hemoglobin ABG Carboxyhemoglobin POC ABG HHb (Measured) ABG Methemoglobin ABG O2 Capacity Frederic Test A-a O2 Difference Hgb O2 Saturation Vent Mode Mechanical Rate FiO2 Tidal Volume PEEP Crit Value Called To Crit Value Called By Crit Value Read Back Blood Gas Notified Time Sodium Potassium Chloride Carbon Dioxide Anion Gap BUN Creatinine Est GFR ( Amer) Est GFR (Non-Af Amer) Random Glucose Calcium Phosphorus Magnesium Total Bilirubin AST ALT Alkaline Phosphatase Total Protein Albumin Globulin Albumin/Globulin Ratio Vancomycin Trough 15.7 H Blood Type A POSITIVE Antibody Screen Negative Crossmatch See Detail BBK History Checked Patient has bt 09/16/18 09/16/18 09/17/18 04:30 04:36 04:50 WBC 7.8 RBC 2.68 L Hgb 8.1 L Hct 24.3 L MCV 90.8 MCH 30.4 MCHC 33.4 RDW 15.5 H Plt Count 24 L* D pCO2 44 pO2 100 HCO3 25.0 ABG pH 7.37 ABG Total CO2 26.8 ABG O2 Saturation 98.6 H ABG O2 Content 9.5 L ABG Base Excess 0.1 ABG Hemoglobin 6.9 L ABG Carboxyhemoglobin 1.6 H POC ABG HHb (Measured) 1.4 ABG Methemoglobin 1.3 ABG O2 Capacity 9.6 L Frederic Test Yes A-a O2 Difference 202.0 Hgb O2 Saturation 95.7 Vent Mode A/c Mechanical Rate 16 FiO2 50.0 Tidal Volume 400 PEEP 5 Crit Value Called To Crit Value Called By Crit Value Read Back Blood Gas Notified Time Sodium 151 H Potassium 3.8 Chloride 117 H Carbon Dioxide 26 Anion Gap 12 BUN 63 H Creatinine 0.8 Est GFR ( Amer) > 60 Est GFR (Non-Af Amer) > 60 Random Glucose 129 H Calcium 8.0 L Phosphorus Magnesium Total Bilirubin AST ALT Alkaline Phosphatase Total Protein Albumin Globulin Albumin/Globulin Ratio Vancomycin Trough Blood Type Antibody Screen Crossmatch BBK History Checked 09/17/18 09/17/18 09/18/18 04:50 05:11 05:14 WBC RBC Hgb Hct MCV MCH MCHC RDW Plt Count pCO2 47 H pO2 196 H HCO3 24.6 ABG pH 7.34 L ABG Total CO2 26.8 ABG O2 Saturation 99.2 H ABG O2 Content 11.7 L ABG Base Excess -0.5 ABG Hemoglobin 8.3 L ABG Carboxyhemoglobin 1.3 POC ABG HHb (Measured) 0.8 ABG Methemoglobin 1.4 ABG O2 Capacity 11.8 L Frederic Test Yes A-a O2 Difference 102.0 Hgb O2 Saturation 96.5 Vent Mode A/c Mechanical Rate 16 FiO2 50.0 Tidal Volume 400 PEEP 5 Crit Value Called To Crit Value Called By Crit Value Read Back Blood Gas Notified Time Sodium 149 H Potassium 4.2 Chloride 117 H Carbon Dioxide 24 Anion Gap 12 BUN 62 H Creatinine 0.7 Est GFR ( Amer) > 60 Est GFR (Non-Af Amer) > 60 Random Glucose 120 H Calcium 8.0 L Phosphorus 3.9 Magnesium 1.9 Total Bilirubin 0.5 AST 40 H ALT 23 Alkaline Phosphatase 123 Total Protein 5.3 L Albumin 2.2 L Globulin 3.1 Albumin/Globulin Ratio 0.7 L Vancomycin Trough 8.2 Blood Type Antibody Screen Crossmatch BBK History Checked 09/18/18 09/18/18 09/18/18 05:14 05:14 05:18 WBC 4.8 RBC 1.94 L Hgb 6.0 L* D Hct 17.7 L MCV 91.6 MCH 30.9 MCHC 33.7 RDW 15.6 H Plt Count 7 L* D pCO2 39 pO2 67 L HCO3 29.4 H ABG pH 7.49 H ABG Total CO2 30.9 H ABG O2 Saturation 98.9 H ABG O2 Content 6.2 L ABG Base Excess 5.8 H ABG Hemoglobin 4.7 L ABG Carboxyhemoglobin 4.1 H POC ABG HHb (Measured) 1.0 ABG Methemoglobin 3.8 H ABG O2 Capacity 6.3 L Frederic Test Yes A-a O2 Difference 241.0 Hgb O2 Saturation 91.0 L Vent Mode A/c Mechanical Rate 16 FiO2 50.0 Tidal Volume 400 PEEP 5 Crit Value Called To Barbie laws rn Crit Value Called By 302 Crit Value Read Back Y Blood Gas Notified Time 546 Sodium 149 H Potassium 3.8 Chloride 113 H Carbon Dioxide 28 Anion Gap 12 BUN 73 H Creatinine 0.8 Est GFR ( Amer) > 60 Est GFR (Non-Af Amer) > 60 Random Glucose 124 H Calcium 8.0 L Phosphorus Magnesium Total Bilirubin 0.5 AST 33 ALT 27 Alkaline Phosphatase 103 Total Protein 5.0 L Albumin 2.2 L Globulin 2.9 Albumin/Globulin Ratio 0.8 L Vancomycin Trough Blood Type Antibody Screen Crossmatch BBK History Checked 09/18/18 07:45 WBC RBC Hgb Hct MCV MCH MCHC RDW Plt Count pCO2 pO2 HCO3 ABG pH ABG Total CO2 ABG O2 Saturation ABG O2 Content ABG Base Excess ABG Hemoglobin ABG Carboxyhemoglobin POC ABG HHb (Measured) ABG Methemoglobin ABG O2 Capacity Frederic Test A-a O2 Difference Hgb O2 Saturation Vent Mode Mechanical Rate FiO2 Tidal Volume PEEP Crit Value Called To Crit Value Called By Crit Value Read Back Blood Gas Notified Time Sodium Potassium Chloride Carbon Dioxide Anion Gap BUN Creatinine Est GFR ( Amer) Est GFR (Non-Af Amer) Random Glucose Calcium Phosphorus Magnesium Total Bilirubin AST ALT Alkaline Phosphatase Total Protein Albumin Globulin Albumin/Globulin Ratio Vancomycin Trough Blood Type A POSITIVE Antibody Screen Negative Crossmatch See Detail BBK History Checked Patient has bt Microbiology 09/15/18 15:35 Blood-Thru Central Line Blood Culture - Preliminary NO GROWTH AFTER 48 HOURS 09/15/18 15:25 Blood-Thru Central Line Blood Culture - Preliminary NO GROWTH AFTER 48 HOURS 09/08/18 11:49 Blood-Venous Blood Culture - Final NO GROWTH AFTER 5 DAYS 09/08/18 11:49 Blood-Venous Gram Stain - Final TEST NOT PERFORMED 09/08/18 11:49 Blood-Venous Blood Culture - Final NO GROWTH AFTER 5 DAYS 09/08/18 11:49 Blood-Venous Gram Stain - Final TEST NOT PERFORMED 09/07/18 Unknown Blood-Thru Central Line Blood Culture - Final NO GROWTH AFTER 5 DAYS 09/07/18 Unknown Blood-Thru Central Line Gram Stain - Final TEST NOT PERFORMED 09/07/18 Unknown Blood-Thru Central Line Blood Culture - Final NO GROWTH AFTER 5 DAYS 09/07/18 Unknown Blood-Thru Central Line Gram Stain - Final TEST NOT PERFORMED 09/07/18 09:07 Trachasp Gram Stain - Final 09/07/18 09:07 Trachasp Sputum Culture - Final Yeast Species 09/04/18 11:25 Naris MRSA Culture (Admit) - Final MRSA NOT DETECTED Accession No. : [id number] Patient Name / ID : RYLEE ONEIL / [id number] Exam Date : 09/18/2018 04:07:26 ( Approved ) Study Comment : Sex / Age : F / 58Y Creator : Syed Avalos MD Dictator : Syed Avalos MD Top Tile Decorator : Loading Shovel Oiler : Syed Avalos MD Approver2 : Report Date : 09/18/2018 08:28:54 My Comment : Date of service: 09/18/2018 HISTORY: [id number] COMPARISON: Portable chest 09/17/2018. FINDINGS: LUNGS: Endotracheal and nasogastric tubes are not significantly changed in position as well as left MediPort. Persistent bilateral infiltrates are identified slightly increased at the left perihilar region and unchanged otherwise. PLEURA: No significant pleural effusion identified, no pneumothorax apparent. CARDIOVASCULAR: No aortic atherosclerotic calcification present. Normal cardiac size. No pulmonary vascular congestion. OSSEOUS STRUCTURES: No significant abnormalities. VISUALIZED UPPER ABDOMEN: Normal. OTHER FINDINGS: None. IMPRESSION: Bilateral infiltrates are again identified with increased infiltrate noted at the left perihilar region. 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 remains intubated but arousable. low grade fevers CXR report noted. leukopenia much improved continues to have anemia and thrombocytopenia tumor lysis syndrome blood cx- 09/07/2018- neg x 6 trach asp cx- yeast PLan- check stool c.diff ( asked the nurse to send this as I see it was not done ). check 2 more blood cx.can resume vanco since trough is low. advise to continue IV meropnem for broad spectrum gram negative coverage.day #10 continue with IV diflucan day #9 monitor absolute PMN and if becomes 500 or less needs to be on neutropenic precautions as well. critical care time spent 40 minutes.
[2018-09-18] MEDS: Albumin Human 25% (12.5 gm/50 ml) IV SCH ×2 (17:08→21:14)
[2018-09-18 17:30] LABS: MEAN CELL VOLUME 92.3 fl (81.0-99.0); MEAN CORPUSCULAR HEMOGLOBIN 30.6 pg (27.0-31.0); MEAN CORPUSCULAR HGB CONC 33.2 g/dL (33.0-37.0); RBC 2.28 Mil/uL (3.80-5.20); RED CELL DISTRIBUTION WIDTH 14.6 % (11.5-14.5); WHITE BLOOD COUNT 4.7 K/uL (4.8-10.8)
[2018-09-18] MEDS: Meropenem 1 GM in Sodium Chloride 0.9% 100 ML IVPB SCH (20:30)
--- NOTE | 2018-09-18 20:36 | CP.PCM.PN ---
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 trimmer Objective - Vital Signs/Intake and Output Vital Signs (last 24 hours): Temp Pulse Resp BP Pulse Ox 99.3 F 118 H 20 97/50 L 99 09/18/18 18:44 09/18/18 18:44 09/18/18 18:44 09/18/18 18:44 09/18/18 18:00 Intake and Output: 09/18/18 09/19/18 18:59 06:59 Intake Total 2056 Output Total 175 Balance 1881 - Medications Medications: Current Medications Albumin Human (Albumin Human 25% (12.5 Gm/50 Ml)) 12.5 gm IV Q6 [facility] Last Admin: 09/18/18 17:08 Dose: 12.5 gm Allopurinol (Zyloprim) 100 mg NG DAILY [facility] Last Admin: 09/18/18 08:53 Dose: 100 mg Apixaban (Eliquis) 5 mg PO BID [facility]; Protocol Last Admin: 09/06/18 17:08 Dose: Not Given Dimethicone (Proshield Plus Skin Protectant) 1 applic TOP Q8 [facility] Last Admin: 09/18/18 17:14 Dose: 1 applic Ferrous Gluconate (Fergon) 324 mg PO TID [facility] Last Admin: 09/18/18 17:12 Dose: 324 mg Furosemide (Lasix) 20 mg PO BID [facility] Last Admin: 09/06/18 17:10 Dose: Not Given Vancomycin HCl 750 mg/ Sodium (Chloride) 250 mls @ 166.667 mls/hr IVPB Q12 [facility]; Protocol Last Admin: 09/14/18 11:06 Dose: Not Given Fluconazole (Diflucan Iv 100 Mg/50 Ml Ns) 50 mls @ 50 mls/hr IVPB DAILY [facility]; Protocol Last Admin: 09/18/18 08:54 Dose: 50 mls/hr Propofol (Diprivan) 1,000 mg in 100 mls @ 4.882 mls/hr IV .[id number] [facility]; Protocol Stop: 09/19/18 00:55 Last Admin: 09/18/18 18:06 Dose: 10 mcg/kg/min, 4.882 mls/hr Meropenem 1 gm/ Sodium (Chloride) 100 mls @ 100 mls/hr IVPB Q8 [facility]; Protocol Metolazone (Zaroxolyn) 5 mg PO DAILY [facility] Last Admin: 09/18/18 08:53 Dose: 5 mg Metoprolol Tartrate (Lopressor) 12.5 mg PO Q12 [facility] Last Admin: 09/06/18 21:59 Dose: Not Given Morphine Sulfate (Morphine) 2 mg IVP Q6 PRN PRN Reason: Pain, severe (8-10) Last Admin: 09/18/18 15:10 Dose: 2 mg Multivitamins/Minerals (Therapeutic-M Tab) 1 tab PO DAILY [facility] Last Admin: 09/18/18 08:52 Dose: 1 tab - Labs Labs: 09/18/18 17:23 09/18/18 05:14 PT 12.8 Seconds (9.8-13.1) 09/13/18 04:35 INR 1.1 09/13/18 04:35 APTT 26.2 Seconds (25.6-37.1) 09/13/18 04:35 Assessment and Plan - Assessment and Plan (Free Text) Assessment: c/o current care c/o -present managemnt
[2018-09-19] MEDS: Proshield Plus GEL TOP SCH ×3 (01:14→16:16)
--- NOTE | 2018-09-19 01:34 | CP.PCM.PN ---
Subjective - Date & Time of Evaluation Date of Evaluation: 09/18/18 Time of Evaluation: 18:30 - Subjective Subjective: Seen and examined at the bed side. Patient continue to decline. Anasarca, continue to be intubated and unresponsive. NOK refused DNR/DNI and end of lefe care. Unstable to discharge as patient is on Pressors, and will need G-Tube to send her even to long Acute Care Facility. Patient is MOF, Septic and Cardiogenic shock with Severe Cardiomyopathy, Anemia, Thrombo-cytopenia, Active bleeding, Stage IV Malignancy and extensive rashes. S/P Tracheostomy. Objective - Vital Signs/Intake and Output Vital Signs (last 24 hours): Temp Pulse Resp BP Pulse Ox 99.7 F H 106 H 18 80/43 L 100 09/19/18 00:00 09/19/18 00:10 09/19/18 00:10 09/19/18 00:10 09/19/18 00:10 Intake and Output: 09/18/18 09/19/18 18:59 06:59 Intake Total 2056 1105 Output Total 175 Balance 1881 1105 - Medications Medications: Current Medications Acetaminophen (Tylenol 325mg Tab) 650 mg NG Q6 PRN PRN Reason: Fever >100.4 F Albumin Human (Albumin Human 25% (12.5 Gm/50 Ml)) 12.5 gm IV Q6 [facility] Last Admin: 09/18/18 21:14 Dose: 12.5 gm Allopurinol (Zyloprim) 100 mg NG DAILY [facility] Last Admin: 09/18/18 08:53 Dose: 100 mg Apixaban (Eliquis) 5 mg PO BID [facility]; Protocol Last Admin: 09/06/18 17:08 Dose: Not Given Dimethicone (Proshield Plus Skin Protectant) 1 applic TOP Q8 [facility] Last Admin: 09/19/18 01:14 Dose: 1 applic Ferrous Gluconate (Fergon) 324 mg PO TID [facility] Last Admin: 09/18/18 17:12 Dose: 324 mg Furosemide (Lasix) 20 mg PO BID [facility] Last Admin: 09/06/18 17:10 Dose: Not Given Vancomycin HCl 750 mg/ Sodium (Chloride) 250 mls @ 166.667 mls/hr IVPB Q12 [facility]; Protocol Last Admin: 09/14/18 11:06 Dose: Not Given Fluconazole (Diflucan Iv 100 Mg/50 Ml Ns) 50 mls @ 50 mls/hr IVPB DAILY [facility]; Protocol Last Admin: 09/18/18 08:54 Dose: 50 mls/hr Meropenem 1 gm/ Sodium (Chloride) 100 mls @ 100 mls/hr IVPB Q8 [facility]; Protocol Last Admin: 09/18/18 20:30 Dose: 100 mls/hr Norepinephrine Bitartrate 4 mg (/ Dextrose) 254 mls @ 9.53 mls/hr IV .Q24H [facility]; Protocol Last Admin: 09/19/18 01:15 Dose: 2.5 mcg/min, 9.53 mls/hr Metolazone (Zaroxolyn) 5 mg PO DAILY [facility] Last Admin: 09/18/18 08:53 Dose: 5 mg Metoprolol Tartrate (Lopressor) 12.5 mg PO Q12 [facility] Last Admin: 09/06/18 21:59 Dose: Not Given Morphine Sulfate (Morphine) 2 mg IVP Q6 PRN PRN Reason: Pain, severe (8-10) Last Admin: 09/18/18 15:10 Dose: 2 mg Multivitamins/Minerals (Therapeutic-M Tab) 1 tab PO DAILY [facility] Last Admin: 09/18/18 08:52 Dose: 1 tab - Labs Labs: 09/18/18 17:23 09/18/18 05:14 PT 12.8 Seconds (9.8-13.1) 09/13/18 04:35 INR 1.1 09/13/18 04:35 APTT 26.2 Seconds (25.6-37.1) 09/13/18 04:35 Assessment and Plan (1) Acute respiratory failure with hypoxemia Status: Acute (2) Ascites, malignant Status: Acute (3) Congestive heart failure (CHF) Status: Acute (4) Stage IV breast cancer in female Status: Acute (5) Severe anemia Status: Resolved (6) DVT of lower extremity, bilateral Status: Chronic (7) Thrombocytopenia Status: Resolved
--- NOTE | 2018-09-19 01:47 | PN ---
DATE: 09/18/2018 CRITICAL CARE PROGRESS NOTE LOCATION: The patient is in ICU, bed 427. TIME SPENT: 35 minutes. The patient is seen, evaluated at the bedside. Past medical, surgical, family, and social history reviewed. Case was discussed in multidisciplinary ICU rounds this morning. SUBJECTIVE: A 58-year-old female with stage 4 inflammatory metastatic breast carcinoma, right; malignant pleural effusion; malignant ascites; peritoneal carcinomatosis; and bony metastasis. Status post chemo 2 days prior to the admission. Admitted with shortness of breath. Required intubation, mechanical ventilation for hypoxic respiratory failure. Clinical course significant for significant leukopenia, thrombocytopenia, hemoglobin with significant drop in hemoglobin with oozing blood from vagina and also dark brown stool, required multiple transfusion of multiple units of packed red blood cells, platelets. Overnight, remains intubated, sedated, on fentanyl, off from pressors. On AC/PRBC rate 16, tidal volume of 400, PEEP of 5, FiO2 50%, observed rate 19, observed tidal volume 413, minute ventilation 7.4 liters, saturation 100%, peak airway pressure 27, end-tidal CO2 of 43. PHYSICAL EXAMINATION: VITAL SIGNS; Temperature 100.2, heart rate 114 and regular, blood pressure of 97/55, mean arterial pressure of 69. Intake of 3187, output of 1425, positive balance 1760. HEAD, EYES, EARS, NOSE, AND THROAT: Pupils reactive. Conjunctivae pale. Sclerae anicteric. Endotracheal tube in place. Minimal secretions. NG tube and orogastric tube in place. CHEST: Bilateral breath sounds, diminished in intensity. Scattered rhonchi. HEART: Rhythm irregular. ABDOMEN: Bowel sounds present, diminished. Distended. Fluid thrill positive. EXTREMITIES: Trace dependent edema. Orellana in place draining serosanguineous urine. dark brown stool. CURRENT MEDICATIONS: Albumin 25% at 12.5 g every 6 hours, allopurinol 100 mg NG daily, Eliquis 5 mg p.o. twice daily, Proshield one application topically every 8 hours, ferrous gluconate 324 mg p.o. three times daily, fluconazole 100 mg IV daily, furosemide 20 mg p.o. b.i.d., meropenem 1 g IV every 8 hours, metolazone 5 mg p.o. daily, Lopressor 12.5 mg p.o. every 12 hours, morphine 2 mg IV every 6 hours for pain, propofol, vancomycin 750 mg IV every 12 hours. LABORATORY DATA: WBC 4.8, hemoglobin 6, hematocrit 17.7, platelet count of 7. PT 12, INR 1.1, PTT 26.2, fibrinogen 304. ABG: PH of 7.49, pCO2 of 39, pO2 of 67, saturation 98.9% on AC 16, 400, 50%, PEEP of 5. SMA-7: Sodium 149, potassium 3.8, chloride of 113, CO2 of 28, blood urea nitrogen 73, creatinine 0.8, random glucose 124, calcium 8. Total bilirubin 0.5, AST 33, ALT 27, alkaline phosphatase 103, total protein of 5, albumin 2.2. Urine analysis: Urine rbc 207, microscopic wbc 34. Vancomycin trough level 8.2. Microbiology: Sputum culture positive for yeast. Blood culture, no growth. Chest x-ray, bilateral infiltrate identified with increased infiltrate at the left perihilar region. ASSESSMENT: 1. Neurology: Alert, awake, opens eyes on calling the patient's name, septic metabolic encephalopathy. 2. Respiratory: Acute hypoxic respiratory failure. Remains intubated. Attempt to wean unsuccessful, contemplating for tracheostomy, to discuss with family. Continue sedation as needed for comfort at the ventilator. 3. Cardiac: Congestive heart failure with malignant pleural effusion. 4. Gastrointestinal: Ascites worsening, malignant secondary to carcinomatosis, implant in the peritoneal cavity. Liver enzymes unchanged. 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 Appreciate oncology followup and discussion. Recommend transfusion of packed red blood cells and platelets as high risk for spontaneous bleeding due to significant thrombocytopenia. We will continue to support with transfusion of appropriate products as needed. Malignant ascites worsening, compromising respiratory status. 6. Endocrinology: No history of hypothyroidism. Blood sugar is under control. 7. Infectious disease: Malignant pleural effusion, malignant ascites, suspected fungal infection in the sputum. Stool Clostridium difficile pending. 8.Hematology/oncology .leukopenia improving. still significant anemia, trombocytopenia. Bleeding from vagina. support with transfusion blood products. discussed with oncology consult. PLAN: Continue current antibiotics as recommended by Infectious Disease, on vancomycin 750 every 12 hours, meropenem 1 g intravenously every 8 hours, fluconazole 100 mg intravenously daily. Keep head of bed 30 degrees up. DVT and GI prophylaxis. Prognosis remains guarded. We would refer case to ethics committee to discuss further plan of care including tracheostomy. Javid Das MD [facility]
[2018-09-19] MEDS: Meropenem 1 GM in Sodium Chloride 0.9% 100 ML IVPB SCH ×4 (01:51→16:19)
[2018-09-19] MEDS ORDERED: Acetaminophen 325 MG/10.15 ML PO PRN (02:00)
[2018-09-19] MEDS ORDERED: Acetaminophen 650mg/20.3ml solution UD PO PRN (02:30)
[2018-09-19] MEDS ORDERED: Sodium Chloride 0.9% 500 ML IV ONE (03:10)
[2018-09-19 04:29] LABS: ABG ALLEN TEST YES; ARTERIAL BLOOD GAS HCO3 25.3 mmol/L (21-28); ARTERIAL BLOOD GAS HEMOGLOBIN 6.6 g/dL (11.7-17.4); ARTERIAL BLOOD GAS O2 CAPACITY 9.2 mL/dL (16-24); ARTERIAL BLOOD GAS O2 CONTENT 9.1 ML/dL (15-23); ARTERIAL BLOOD GAS O2 SAT 99.1 % (95-98); ARTERIAL BLOOD GAS PCO2 46 mm/Hg (35-45); ARTERIAL BLOOD GAS PH 7.36 (7.35-7.45); ARTERIAL BLOOD GAS PO2 112 mm/Hg (80-100); ARTERIAL BLOOD GAS TCO2 27.4 mmol/L (22-28)
[2018-09-19] MEDS: Albumin Human 25% (12.5 gm/50 ml) IV SCH ×3 (04:52→16:17)
[2018-09-19 05:43] LABS: BASO % 0.3 % (0.0-2.0); LYMPH # 0.7 K/uL (1.0-4.3); LYMPH % 17.4 % (20.0-40.0); MEAN CELL VOLUME 91.7 fl (81.0-99.0); MEAN CORPUSCULAR HEMOGLOBIN 30.9 pg (27.0-31.0); MEAN CORPUSCULAR HGB CONC 33.7 g/dL (33.0-37.0); MEAN PLATELET VOLUME 8.4 fl (7.2-11.7); MONO # 0.1 K/uL (0.0-0.8); MONO % 1.9 % (0.0-10.0); NEUT # 3.2 K/uL (1.8-7.0); NEUT % 80.4 % (50.0-75.0); NRBC % 0.5 % (0.0-0.0); RBC 2.03 Mil/uL (3.80-5.20); RED CELL DISTRIBUTION WIDTH 14.6 % (11.5-14.5)
[2018-09-19 05:56] LABS: HEMOGLOBIN 6.3 g/dL (12.0-16.0)
[2018-09-19 06:03] LABS: ALB/GLOB RATIO 0.9 (1.0-2.1); ALBUMIN 2.3 g/dL (3.5-5.0); ALT/SGPT 30 U/L (9-52); AST/SGOT 30 U/L (14-36); BLOOD UREA NITROGEN 89 mg/dl (7-17); CALCIUM 7.6 mg/dL (8.4-10.2); GFR NON-AFRICAN AMERICAN > 60
[2018-09-19] MEDS: Fluconazole IV 100mg/50 ml NS 50 ML IVPB SCH (08:04)
[2018-09-19] MEDS: Multivitamin With Minerals Tab PO SCH (08:06)
--- NOTE | 2018-09-19 08:42 | RAD ---
Date of service: 09/19/2018 HISTORY: pt is intubated COMPARISON: Portable chest 09/18/2018 4:08 a.m.. FINDINGS: LUNGS: Endotracheal and orogastric tubes unchanged in position as well as left MediPort. No significant interval change in bilateral perihilar and medial left basilar airspace disease. PLEURA: No pneumothorax or right pleural effusion. Trace left pleural effusion not excluded. CARDIOVASCULAR: No aortic atherosclerotic calcification present. Normal cardiac size. No pulmonary vascular congestion. OSSEOUS STRUCTURES: No significant abnormalities. VISUALIZED UPPER ABDOMEN: Normal. OTHER FINDINGS: None. IMPRESSION: No interval change in bilateral infiltrates, left greater than right and possible trace left pleural effusion.
[2018-09-19] MEDS: metOLazone 5 MG TAB PO SCH (09:41)
[2018-09-19] MEDS ORDERED: Phytonadione 10 mg/ml Inj (Adult) IV ONE (10:03)
[2018-09-19] MEDS ORDERED: Phytonadione 10 MG in Sodium Chloride 0.9% 50 ML IV ONE (10:15)
[2018-09-19] MEDS: Propofol 10 mg/ml 1,000 MG/100 ML VIAL IV SCH ×2 (15:06→22:56)
--- NOTE | 2018-09-19 16:27 | CP.PCM.PN ---
Subjective - Date & Time of Evaluation Date of Evaluation: 09/19/18 Time of Evaluation: 15:00 - Subjective Subjective: SEEN ON [facility] F/U IN ICU STILL BLEEDING .. URIN RECTA AND VAGINAL REMAINS INTUBATED CASE D/W DR BRYSON IN ICU CASE D/W ICU NURSES Objective - Vital Signs/Intake and Output Vital Signs (last 24 hours): Temp Pulse Resp BP Pulse Ox 100.2 F H 118 H 17 106/55 L 100 09/19/18 15:52 09/19/18 15:52 09/19/18 15:52 09/19/18 15:52 09/19/18 14:00 Intake and Output: 09/19/18 09/19/18 06:59 18:59 Intake Total 2169 1766 Output Total 550 690 Balance 1619 1076 - Medications Medications: Current Medications Allopurinol (Zyloprim) 100 mg NG DAILY GLADIS Last Admin: 09/19/18 08:07 Dose: 100 mg Apixaban (Eliquis) 5 mg PO BID GLADIS; Protocol Last Admin: 09/06/18 17:08 Dose: Not Given Dimethicone (Proshield Plus Skin Protectant) 1 applic TOP Q8 GLADIS Last Admin: 09/19/18 16:16 Dose: 1 applic Furosemide (Lasix) 20 mg PO BID GLADIS Last Admin: 09/06/18 17:10 Dose: Not Given Vancomycin HCl 750 mg/ Sodium (Chloride) 250 mls @ 166.667 mls/hr IVPB Q12 GLADIS; Protocol Last Admin: 09/14/18 11:06 Dose: Not Given Fluconazole (Diflucan Iv 100 Mg/50 Ml Ns) 50 mls @ 50 mls/hr IVPB DAILY GLADIS; Protocol Last Admin: 09/19/18 08:04 Dose: 50 mls/hr Meropenem 1 gm/ Sodium (Chloride) 100 mls @ 100 mls/hr IVPB Q8 GLADIS; Protocol Last Admin: 09/19/18 16:19 Dose: 100 mls/hr Norepinephrine Bitartrate 4 mg (/ Dextrose) 254 mls @ 9.53 mls/hr IV .Q24H GLADIS; Protocol Last Titration: 09/19/18 06:15 Dose: 5 mcg/min, 19.05 mls/hr Metolazone (Zaroxolyn) 5 mg PO DAILY GLADIS Last Admin: 09/19/18 09:41 Dose: 5 mg Metoprolol Tartrate (Lopressor) 12.5 mg PO Q12 GLADIS Last Admin: 09/06/18 21:59 Dose: Not Given Morphine Sulfate (Morphine) 2 mg IVP Q6 PRN PRN Reason: Pain, severe (8-10) Last Admin: 09/18/18 15:10 Dose: 2 mg - Labs Labs: 09/19/18 04:35 09/19/18 04:35 PT 12.8 Seconds (9.8-13.1) 09/13/18 04:35 INR 1.1 09/13/18 04:35 APTT 26.2 Seconds (25.6-37.1) 09/13/18 04:35 Assessment and Plan - Assessment and Plan (Free Text) Assessment: LOUIE .. 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 PRE RENAL HYPER NATREMIA .. NEEDS FREE WATER MMP P C/O CURRENT CARE C/O PRESENT MANAGEMENT
--- NOTE | 2018-09-19 21:46 | CP.PCM.PN ---
Subjective - Date & Time of Evaluation Date of Evaluation: 09/18/18 Time of Evaluation: 09:00 - Subjective Subjective: Vented Objective - Vital Signs/Intake and Output Vital Signs (last 24 hours): Temp Pulse Resp BP Pulse Ox 100.2 F H 109 H 19 95/45 L 100 09/19/18 16:00 09/19/18 18:00 09/19/18 18:00 09/19/18 18:00 09/19/18 18:00 Intake and Output: 09/19/18 09/20/18 18:59 06:59 Intake Total 2216 25 Output Total 1790 Balance 426 25 - Medications Medications: Current Medications Allopurinol (Zyloprim) 100 mg NG DAILY GLADIS Last Admin: 09/19/18 08:07 Dose: 100 mg Apixaban (Eliquis) 5 mg PO BID GLADIS; Protocol Last Admin: 09/06/18 17:08 Dose: Not Given Dimethicone (Proshield Plus Skin Protectant) 1 applic TOP Q8 GLADIS Last Admin: 09/19/18 16:16 Dose: 1 applic Furosemide (Lasix) 20 mg PO BID GLADIS Last Admin: 09/06/18 17:10 Dose: Not Given Vancomycin HCl 750 mg/ Sodium (Chloride) 250 mls @ 166.667 mls/hr IVPB Q12 GLADIS; Protocol Last Admin: 09/14/18 11:06 Dose: Not Given Fluconazole (Diflucan Iv 100 Mg/50 Ml Ns) 50 mls @ 50 mls/hr IVPB DAILY GLADIS; Protocol Last Admin: 09/19/18 08:04 Dose: 50 mls/hr Meropenem 1 gm/ Sodium (Chloride) 100 mls @ 100 mls/hr IVPB Q8 GLADIS; Protocol Last Admin: 09/19/18 16:19 Dose: 100 mls/hr Norepinephrine Bitartrate 4 mg (/ Dextrose) 254 mls @ 9.53 mls/hr IV .Q24H GLADIS; Protocol Last Admin: 09/19/18 17:47 Dose: 5 mcg/min, 19.05 mls/hr Metolazone (Zaroxolyn) 5 mg PO DAILY GLADIS Last Admin: 09/19/18 09:41 Dose: 5 mg Metoprolol Tartrate (Lopressor) 12.5 mg PO Q12 GLADIS Last Admin: 09/06/18 21:59 Dose: Not Given Morphine Sulfate (Morphine) 2 mg IVP Q6 PRN PRN Reason: Pain, severe (8-10) Last Admin: 09/18/18 15:10 Dose: 2 mg - Labs Labs: 09/19/18 04:35 09/19/18 04:35 PT 12.8 Seconds (9.8-13.1) 09/13/18 04:35 INR 1.1 09/13/18 04:35 APTT 26.2 Seconds (25.6-37.1) 09/13/18 04:35 - Head Exam Head Exam: ATRAUMATIC - ENT Exam ENT Exam: Mucous Membranes Dry - Respiratory Exam Respiratory Exam: Decreased Breath Sounds - Cardiovascular Exam Cardiovascular Exam: +S1, +S2 - GI/Abdominal Exam GI & Abdominal Exam: Normal Bowel Sounds - Extremities Exam Extremities Exam: Pedal Edema Assessment and Plan (1) Pancytopenia Assessment & Plan: secondary to chemotherapy acute blood loss - hematuria/vaginal - likely tumor bleed s/p Procrit to stimulate bone marrow transfusion support PRN Status: Acute (2) Pulmonary embolism Assessment & Plan: unable to anticoaglate due to bleeding Status: Acute (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
--- NOTE | 2018-09-19 21:49 | CP.PCM.PN ---
Subjective - Date & Time of Evaluation Date of Evaluation: 09/19/18 Time of Evaluation: 13:00 - Subjective Subjective: Vented, opens eyes Objective - Vital Signs/Intake and Output Vital Signs (last 24 hours): Temp Pulse Resp BP Pulse Ox 100.2 F H 109 H 19 95/45 L 100 09/19/18 16:00 09/19/18 18:00 09/19/18 18:00 09/19/18 18:00 09/19/18 18:00 Intake and Output: 09/19/18 09/20/18 18:59 06:59 Intake Total 2216 25 Output Total 1790 Balance 426 25 - Medications Medications: Current Medications Allopurinol (Zyloprim) 100 mg NG DAILY GLADIS Last Admin: 09/19/18 08:07 Dose: 100 mg Apixaban (Eliquis) 5 mg PO BID GLADIS; Protocol Last Admin: 09/06/18 17:08 Dose: Not Given Dimethicone (Proshield Plus Skin Protectant) 1 applic TOP Q8 GLADIS Last Admin: 09/19/18 16:16 Dose: 1 applic Furosemide (Lasix) 20 mg PO BID GLADIS Last Admin: 09/06/18 17:10 Dose: Not Given Vancomycin HCl 750 mg/ Sodium (Chloride) 250 mls @ 166.667 mls/hr IVPB Q12 GLADIS; Protocol Last Admin: 09/14/18 11:06 Dose: Not Given Fluconazole (Diflucan Iv 100 Mg/50 Ml Ns) 50 mls @ 50 mls/hr IVPB DAILY GLADIS; Protocol Last Admin: 09/19/18 08:04 Dose: 50 mls/hr Meropenem 1 gm/ Sodium (Chloride) 100 mls @ 100 mls/hr IVPB Q8 GLADIS; Protocol Last Admin: 09/19/18 16:19 Dose: 100 mls/hr Norepinephrine Bitartrate 4 mg (/ Dextrose) 254 mls @ 9.53 mls/hr IV .Q24H GLADIS; Protocol Last Admin: 09/19/18 17:47 Dose: 5 mcg/min, 19.05 mls/hr Metolazone (Zaroxolyn) 5 mg PO DAILY GLADIS Last Admin: 09/19/18 09:41 Dose: 5 mg Metoprolol Tartrate (Lopressor) 12.5 mg PO Q12 GLADIS Last Admin: 09/06/18 21:59 Dose: Not Given Morphine Sulfate (Morphine) 2 mg IVP Q6 PRN PRN Reason: Pain, severe (8-10) Last Admin: 09/18/18 15:10 Dose: 2 mg - Labs Labs: 09/19/18 04:35 09/19/18 04:35 PT 12.8 Seconds (9.8-13.1) 09/13/18 04:35 INR 1.1 09/13/18 04:35 APTT 26.2 Seconds (25.6-37.1) 09/13/18 04:35 - Head Exam Head Exam: ATRAUMATIC - ENT Exam ENT Exam: Mucous Membranes Dry - Respiratory Exam Respiratory Exam: Decreased Breath Sounds - Cardiovascular Exam Cardiovascular Exam: +S1, +S2 - GI/Abdominal Exam GI & Abdominal Exam: Normal Bowel Sounds Assessment and Plan (1) Pancytopenia Assessment & Plan: secondary to chemotherapy acute bloodloss - hematuria/vaginal - suspect tumor bleed s/p Procrit in an attempt to stimulate bone marrow transfusion support PRN Status: Acute (2) Pulmonary embolism Assessment & Plan: unable to anticoagulate due to bleeding Status: Acute (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
--- NOTE | 2018-09-20 00:02 | PN ---
DATE: 09/19/2018 CRITICAL CARE PROGRESS NOTE LOCATION: The patient in ICU, bed 427. TIME SPENT: 35 minutes. The patient is seen, PA evaluated at the bedside. Past medical, surgical, family, and social history reviewed. Case discussed in multidisciplinary ICU rounds this morning. 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 Status post chemo. Admitted with shortness of breath, required intubation, mechanical ventilation for hypoxic respiratory failure. Clinical course significant for significant leukopenia, thrombocytopenia with drop in hemoglobin, and oozing blood from vagina, and also dark brown stool. Required multiple units of packed red blood cells. Overnight, status post transfusion 3 units of packed red blood cells and one bag of platelets, noted to have profuse bleeding from the vagina. Remains intubated, on mechanical ventilation, AC PRVC rate 16, tidal volume 400, PEEP of 5, FiO2 of 50%, observed rate of 19, observed tidal volume 420, minute ventilation 7.4 liters, saturation 100%. Peak airway pressure 26, end tidal CO2 of 44, on drip with fentanyl patch, and also on pressor for blood pressure support. Levophed at 2 mcg per minute. PHYSICAL EXAMINATION: VITAL SIGNS: Temperature of 100.2, heart rate 122, blood pressure 96/53, respiratory rate 17 to 19, saturation 100. Intake 4225, output 725, positive balance 3500. HEAD, EYES, EARS, NOSE, AND THROAT: Pupils reactive. Conjunctivae pale. Sclerae white. Endotracheal tube in place. Minimal secretions. Orogastric tube in place. CHEST: Bilateral breath sounds, diminished in intensity. Scattered rhonchi. HEART: Rhythm irregular. ABDOMEN: Bowel sounds present. Soft, distended. Fluid thrill positive. EXTREMITIES: Dependent edema. GENITOURINARY: Orellana in place, draining serosanguineous urine. Dark brown stool through Flexi-Seal. CURRENT MEDICATIONS: Include albumin 12.5 g IV every 6 hours; Eliquis 5 mg p.o. b.i.d., on hold secondary to bleeding; Zyloprim 100 mg NG daily; Proshield Plus Skin Protectant one application topically every 8 hours; Diflucan 100 mg in 50 mL IV push daily; furosemide 20 mg p.o. b.i.d., on hold secondary to low blood pressure; meropenem 1 g IV every 8 hours; metolazone 5 mg p.o. daily; morphine 2 mg IV every 6 hours p.r.n. for pain; Levophed 4 mg in 254 mL at 2.5 mcg per minute; vancomycin 750 mg IV every 12 hours. LABORATORY DATA: WBC 4, hemoglobin 6.3, hematocrit 18.6, platelet count 12, neutrophils 80.4, lymphocytes 17.4, monocytes 1.9. PT 12.8, INR 1.1, PTT of 26.2, fibrinogen 304. ABG, pH of 7.36, pCO2 of 46, pO2 of 112, oxygen saturation 99.1. On AC 16, 450, PEEP of 5. SMA-7, sodium 146, potassium 4.2, chloride 112, CO2 of 27, blood urea nitrogen 89, creatinine 0.9, calcium 7.6, phosphorus 4.4, magnesium 2. Total protein 4.8, albumin 2.3. Urinalysis, rbc 207, wbc 34. Vancomycin trough level 8.2. IMPRESSION: 1. Neurologic: On fentanyl drip, morphine p.r.n. remains lethargic but arousable. Septic metabolic encephalopathy. CT head negative. 2. Respiratory: Acute hypoxic respiratory failure, remains intubated. Weaning trials unsuccessful, contemplating for tracheostomy. To discuss with family, continue sedation as needed for comfort care. 3. Cardiac: History of congestive heart failure with malignant pleural effusion, hypotensive, on pressor support. Tachycardia secondary to ongoing infection. 4. Gastrointestinal: Ascites worsening, malignant, secondary to carcinomatosis implant in the peritoneal cavity. Liver enzymes unchanged. 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 Appreciate oncology followup. Status post chemo, unable to continue chemo now due to significant unstable clinical condition with thrombocytopenia, leukopenia, and low hemoglobin. Prognosis remains guarded. Family is updated. 5. Endocrinology: No history of hypothyroidism. Blood sugar is under control. 6. Infectious Disease: Malignant pleural effusion, malignant ascites with bone metastases, fungal infection in the sputum. Stool C. difficile report pending. Continue current antibiotic as recommended by Infectious Disease. On fluconazole 100 mg IV daily, meropenem 1 g IV every 8 hours. Keep head of bed 30 degrees up. Deep venous thrombosis prophylaxis. Anticoagulation on hold secondary to bleeding. Continue NG feeding as tolerated. Javid Das MD [facility] # [id number]
[2018-09-20] MEDS: Proshield Plus GEL TOP SCH ×3 (01:00→16:44)
[2018-09-20] MEDS: Meropenem 1 GM in Sodium Chloride 0.9% 100 ML IVPB SCH ×3 (01:30→14:56)
[2018-09-20 05:07] LABS: ABG ALLEN TEST YES; ARTERIAL BLOOD GAS HCO3 25.8 mmol/L (21-28); ARTERIAL BLOOD GAS O2 SAT 98.4 % (95-98); ARTERIAL BLOOD GAS PCO2 41 mm/Hg (35-45); ARTERIAL BLOOD GAS PH 7.41 (7.35-7.45); ARTERIAL BLOOD GAS PO2 77 mm/Hg (80-100); ARTERIAL BLOOD GAS TCO2 27.3 mmol/L (22-28)
[2018-09-20 05:30] LABS: MEAN CELL VOLUME 91.9 fl (81.0-99.0); MEAN CORPUSCULAR HEMOGLOBIN 31.2 pg (27.0-31.0); RBC 1.31 Mil/uL (3.80-5.20); RED CELL DISTRIBUTION WIDTH 14.7 % (11.5-14.5); WHITE BLOOD COUNT 2.5 K/uL (4.8-10.8)
[2018-09-20 05:49] LABS: HEMOGLOBIN 4.1 g/dL (12.0-16.0)
[2018-09-20 06:47] LABS: BLOOD UREA NITROGEN 99 mg/dl (7-17); CALCIUM 7.7 mg/dL (8.4-10.2); GFR NON-AFRICAN AMERICAN > 60
[2018-09-20] MEDS ORDERED: Tranexamic Acid 1,000 MG in Sodium Chloride 0.9% 100 ML IVPB STA (07:23)
[2018-09-20] MEDS: metOLazone 5 MG TAB PO SCH (09:42)
[2018-09-20] MEDS: Fluconazole IV 100mg/50 ml NS 50 ML IVPB SCH ×2 (09:43→14:55)
[2018-09-20] MEDS: Propofol 10 mg/ml 1,000 MG/100 ML VIAL IV SCH (10:32)
--- NOTE | 2018-09-20 11:13 | RAD ---
Date of service: 09/20/2018 HISTORY: intubated COMPARISON: 09/19/2018 FINDINGS: LUNGS: Bilateral perihilar opacity, left greater than right. Possible pulmonary edema versus bilateral pneumonia. Congestive change noted. PLEURA: Small left pleural effusion. No right pleural effusion. No pneumothorax. CARDIOVASCULAR: No aortic atherosclerotic calcification present. Normal cardiac size. ET tube, NG tube and left IJ central venous catheter unchanged. OSSEOUS STRUCTURES: No significant abnormalities. VISUALIZED UPPER ABDOMEN: Normal. OTHER FINDINGS: None. IMPRESSION: Bilateral perihilar opacity and left pleural effusion. Bilateral pneumonia versus pulmonary edema. Lines and tubes unchanged.
--- NOTE | 2018-09-20 12:10 | CP.CCUPN ---
CCU Subjective - Physician Review Subjective (Free Text): Sedation with Propofol, on 10 mcg dose on MV, RASS is at neg 3, still breathing 19 on AC 16, TV 400ml, 50% PEEP 5. Remains on Levophed, at 30 mcg dose ( double dose). Afebrile, temps mostly 99-100F, SBPs 90-100s, HR 108, 100% SPO2. Approx 1.08 liter positive fluid balance. +++Vaginal bleeding persists. No other distress noted. ROS: No other pertinent negs or positive on 10+ system review obtainable due to sedation. Other PMSFH: All other Nursing and physician documentation reviewed to date; no new pertinent info noted relevant to current medical problems. EXAM- HEENT: no icterus, pupils equal, 3 mm and reactive, no gaze preference NECK: no visible JVD, supple, carotids equal upstroke bilat/no bruits CHEST: decreased BS bases, no wheezes audible, bloody fluid drained dressing over R breast. Left chest portacath. HEART: regular, distant, tachy S1S2, no murmur audible, no rubs. ABD: soft, ++distention, no focal tenderness, BS hypoactive, dried necrotic lesion over umbilicus unchanged. EXT: ++ edema LEs, +ulcer posterior R calf worse than L, no calf tenderness or palpable cords, distal pulses intact and symmetrical NEURO: withdraws to pain stimuli, + tone SKIN: no rashes LABS: WBC= 2.5 HGB= 4.1 PLTs = 20K 7.41/41/77 Na= 151 K= 3.3 Cl= 114 HCO3= 27 BUN/Cr= 99/0.9 BS= 141 CXR: (my interp)- ETT position OK above loren. Worse Left and Right perihilar / bilateral interstitial changes prominent. IMPRESSION / MAJOR PROBLEMS NOW: 1. Acute hypoxemic Resp Failure, 2 bilat multi-lobar pneumonia 2. Persistent vaginal Bleeding 3. Severe Sepsis with shock, 2 Pneumonia, r/o bacteremia 4. Acute on Chronic disease Anemia 5. h/o DVT- bilat CFV on Feb 5. 6. s/p Paracentesis Feb 5 for 2.5 liters PLAN: 1. After today, will have recd 21 units of PRBCs and 7-pack units of platelets to no avail in stabilizing Hgb and platelet counts. Tranexamic acid given today in attempt to stabilize ongoing bleeding and suspect GI tract bleeding as well. Consider GI and [employer] Surgery evals. 2. Will consider more Tranexamic acid doses if successful in controlling vaginal bleeding somewhat, unless other occult endometrial pathology. 3. Check coags again. 4. No signs of bone marrow recovery with WBC and platelet counts. 5. Day # 17 MV support. Has approached need for Trach. See no amenability to perform any SBTs if HGb remains below 7.0. 6. Juan / Diflucan, repeat BCs pending. Repeat Sputum Cx ordered given CXR worsening. 7. Need re-discussion with Family / Mother regarding patients refractoriness to aggressive therapy and declining status. Time spent with this patient did not overlap with any other provider's medical or critical care time. Additionally the code selected for the services rendered in this note includes the time spent: talking to the patients family, associated physicians and reviewing hospital data/results not listed here which extended to a total of 40 minutes.
--- NOTE | 2018-09-20 13:49 | CP.PCM.PN ---
Subjective - Date & Time of Evaluation Date of Evaluation: 09/20/18 Time of Evaluation: 13:47 - Subjective Subjective: Id Note- Patietn seen and examined today in ICU. pt. remains intubated , now on 2 pressors. lethargic today. continues to have bleeding vaginally as per ICU doc and continues to get PRBC transfusions for severe anemia. continues to have low grade fevers but all cx remain negative. Objective - Vital Signs/Intake and Output Vital Signs (last 24 hours): Temp Pulse Resp BP Pulse Ox 100.2 F H 116 H 19 101/52 L 98 09/20/18 12:06 09/20/18 12:06 09/20/18 12:06 09/20/18 12:06 09/20/18 12:00 Intake and Output: 09/20/18 09/20/18 06:59 18:59 Intake Total 857 1317 Output Total 2200 350 Balance -1343 967 - Medications Medications: Current Medications Allopurinol (Zyloprim) 100 mg NG DAILY [facility] Last Admin: 09/20/18 09:42 Dose: Not Given Apixaban (Eliquis) 5 mg PO BID [facility]; Protocol Last Admin: 09/06/18 17:08 Dose: Not Given Dimethicone (Proshield Plus Skin Protectant) 1 applic TOP Q8 [facility] Last Admin: 09/20/18 09:42 Dose: 1 applic Furosemide (Lasix) 20 mg PO BID [facility] Last Admin: 09/06/18 17:10 Dose: Not Given Vancomycin HCl 750 mg/ Sodium (Chloride) 250 mls @ 166.667 mls/hr IVPB Q12 [facility]; Protocol Last Admin: 09/14/18 11:06 Dose: Not Given Fluconazole (Diflucan Iv 100 Mg/50 Ml Ns) 50 mls @ 50 mls/hr IVPB DAILY [facility]; Protocol Last Admin: 09/20/18 09:43 Dose: Not Given Meropenem 1 gm/ Sodium (Chloride) 100 mls @ 100 mls/hr IVPB Q8 [facility]; Protocol Last Admin: 09/20/18 09:43 Dose: Not Given Propofol (Diprivan) 1,000 mg in 100 mls @ 2.477 mls/hr IV .Q24H [facility]; Protocol Stop: 09/20/18 19:30 Last Titration: 09/20/18 12:20 Dose: 15 mcg/kg/min, 7.432 mls/hr Norepinephrine Bitartrate 8 mg (/ Dextrose) 258 mls @ 43.54 mls/hr IV .Q5H56M [facility]; Protocol Metolazone (Zaroxolyn) 5 mg PO DAILY [facility] Last Admin: 09/20/18 09:42 Dose: Not Given Metoprolol Tartrate (Lopressor) 12.5 mg PO Q12 [facility] Last Admin: 09/06/18 21:59 Dose: Not Given Pantoprazole Sodium (Protonix Inj) 40 mg IVP DAILY [facility] Last Admin: 09/20/18 10:31 Dose: 40 mg - Labs Labs: 09/20/18 05:10 09/20/18 05:10 PT 12.8 Seconds (9.8-13.1) 09/13/18 04:35 INR 1.1 09/13/18 04:35 APTT 26.2 Seconds (25.6-37.1) 09/13/18 04:35 - Additional Findings Additional findings: - Constitutional Appears: Chronically Ill Additional comments: intubated but awake - Eye Exam Eye Exam: PERRL - ENT Exam Additional comments: ET and OGT in place - Neck Exam Additional comments: supple - Respiratory Exam Additional comments: On the vent - Cardiovascular Exam Cardiovascular Exam: Tachycardia, +S1, +S2 - GI/Abdominal Exam Additional comments: distended, soft hypoactive BS umbilical region with mass like lesion with denuded skin , no pus, bloody discharge scant only - Extremities Exam Additional comments: b/l 1+ edema in LE and left hand edema - Neurological Exam Additional comments: more alert and responds to some commands and opens her eyes when her name is called - Skin Additional comments: right breast entirely covered with fungating looking round erythematous lesions few have opened up and bleeding superfically - Additional Findings Additional findings: lines- ET and OG tube left chest mediport hardwick cath- draining bloody urine rectal tube with brown liquid stool Laboratory Results - last 72 hr 09/18/18 09/18/18 09/18/18 05:14 05:14 05:14 WBC 4.8 RBC 1.94 L Hgb 6.0 L* D Hct 17.7 L MCV 91.6 MCH 30.9 MCHC 33.7 RDW 15.6 H Plt Count 7 L* D MPV Neut % (Auto) Lymph % (Auto) [place] % (Auto) Eos % (Auto) Baso % (Auto) Neut # (Auto) Lymph # (Auto) [place] # (Auto) Eos # (Auto) Baso # (Auto) pCO2 pO2 HCO3 ABG pH ABG Total CO2 ABG O2 Saturation ABG O2 Content ABG Base Excess ABG Hemoglobin ABG Carboxyhemoglobin POC ABG HHb (Measured) ABG Methemoglobin ABG O2 Capacity Frederic Test ABG Potassium A-a O2 Difference Hgb O2 Saturation Glucose Lactate Vent Mode Mechanical Rate FiO2 Tidal Volume PEEP Crit Value Called To Crit Value Called By Crit Value Read Back Blood Gas Notified Time Sodium 149 H Potassium 3.8 Chloride 113 H Carbon Dioxide 28 Anion Gap 12 BUN 73 H Creatinine 0.8 Est GFR ( Amer) > 60 Est GFR (Non-Af Amer) > 60 Random Glucose 124 H Calcium 8.0 L Phosphorus Magnesium Total Bilirubin 0.5 AST 33 ALT 27 Alkaline Phosphatase 103 Total Protein 5.0 L Albumin 2.2 L Globulin 2.9 Albumin/Globulin Ratio 0.8 L Arterial Blood Potassium Vancomycin Trough 8.2 C. difficile Tox B Gene Blood Type Antibody Screen Crossmatch BBK History Checked 09/18/18 09/18/18 09/18/18 05:18 07:45 12:49 WBC RBC Hgb Hct MCV MCH MCHC RDW Plt Count MPV Neut % (Auto) Lymph % (Auto) [place] % (Auto) Eos % (Auto) Baso % (Auto) Neut # (Auto) Lymph # (Auto) [place] # (Auto) Eos # (Auto) Baso # (Auto) pCO2 39 pO2 67 L HCO3 29.4 H ABG pH 7.49 H ABG Total CO2 30.9 H ABG O2 Saturation 98.9 H ABG O2 Content 6.2 L ABG Base Excess 5.8 H ABG Hemoglobin 4.7 L ABG Carboxyhemoglobin 4.1 H POC ABG HHb (Measured) 1.0 ABG Methemoglobin 3.8 H ABG O2 Capacity 6.3 L Frederic Test Yes ABG Potassium A-a O2 Difference 241.0 Hgb O2 Saturation 91.0 L Glucose Lactate Vent Mode A/c Mechanical Rate 16 FiO2 50.0 Tidal Volume 400 PEEP 5 Crit Value Called To Barbie laws rn Crit Value Called By 302 Crit Value Read Back Y Blood Gas Notified Time 546 Sodium Potassium Chloride Carbon Dioxide Anion Gap BUN Creatinine Est GFR ( Amer) Est GFR (Non-Af Amer) Random Glucose Calcium Phosphorus Magnesium Total Bilirubin AST ALT Alkaline Phosphatase Total Protein Albumin Globulin Albumin/Globulin Ratio Arterial Blood Potassium Vancomycin Trough C. difficile Tox B Gene Not detected Blood Type A POSITIVE Antibody Screen Negative Crossmatch See Detail BBK History Checked Patient has bt 09/18/18 09/19/18 09/19/18 17:23 04:00 04:35 WBC 4.7 L 4.0 L RBC 2.28 L 2.03 L Hgb 7.0 L 6.3 L* Hct 21.1 L 18.6 L MCV 92.3 91.7 MCH 30.6 30.9 MCHC 33.2 33.7 RDW 14.6 H 14.6 H Plt Count 30 L* D 12 L* D MPV 8.4 Neut % (Auto) 80.4 H Lymph % (Auto) 17.4 L [place] % (Auto) 1.9 Eos % (Auto) 0.0 Baso % (Auto) 0.3 Neut # (Auto) 3.2 Lymph # (Auto) 0.7 L [place] # (Auto) 0.1 Eos # (Auto) 0.0 Baso # (Auto) 0.0 pCO2 46 H pO2 112 H HCO3 25.3 ABG pH 7.36 ABG Total CO2 27.4 ABG O2 Saturation 99.1 H ABG O2 Content 9.1 L ABG Base Excess 0.5 ABG Hemoglobin 6.6 L ABG Carboxyhemoglobin 2.2 H POC ABG HHb (Measured) 0.9 ABG Methemoglobin 1.2 ABG O2 Capacity 9.2 L Frederic Test Yes ABG Potassium A-a O2 Difference 187.0 Hgb O2 Saturation 95.7 Glucose Lactate Vent Mode A/c Mechanical Rate 16 FiO2 50.0 Tidal Volume 400 PEEP 5 Crit Value Called To Crit Value Called By Crit Value Read Back Blood Gas Notified Time Sodium Potassium Chloride Carbon Dioxide Anion Gap BUN Creatinine Est GFR ( Amer) Est GFR (Non-Af Amer) Random Glucose Calcium Phosphorus Magnesium Total Bilirubin AST ALT Alkaline Phosphatase Total Protein Albumin Globulin Albumin/Globulin Ratio Arterial Blood Potassium Vancomycin Trough C. difficile Tox B Gene Blood Type Antibody Screen Crossmatch BBK History Checked 09/19/18 09/20/1809/20/19 04:35 04:39 05:10 WBC 2.5 L RBC 1.31 L Hgb 4.1 L* D Hct 12.1 L MCV 91.9 MCH 31.2 H MCHC 34.0 RDW 14.7 H Plt Count 20 L* MPV Neut % (Auto) Lymph % (Auto) [place] % (Auto) Eos % (Auto) Baso % (Auto) Neut # (Auto) Lymph # (Auto) [place] # (Auto) Eos # (Auto) Baso # (Auto) pCO2 41 pO2 77 L HCO3 25.8 ABG pH 7.41 ABG Total CO2 27.3 ABG O2 Saturation 98.4 H ABG O2 Content ABG Base Excess 1.2 ABG Hemoglobin ABG Carboxyhemoglobin POC ABG HHb (Measured) ABG Methemoglobin ABG O2 Capacity Frederic Test Yes ABG Potassium 3.6 A-a O2 Difference 228.0 Hgb O2 Saturation Glucose 142 H Lactate 1.0 Vent Mode A/c Mechanical Rate 16 FiO2 50.0 Tidal Volume 400 PEEP 5 Crit Value Called To Crit Value Called By Crit Value Read Back Blood Gas Notified Time Sodium 146 151.0 H Potassium 4.2 Chloride 112 H 124.0 H Carbon Dioxide 27 Anion Gap 11 BUN 89 H Creatinine 0.9 Est GFR ( Amer) > 60 Est GFR (Non-Af Amer) > 60 Random Glucose 117 H Calcium 7.6 L Phosphorus 4.4 Magnesium 2.0 Total Bilirubin 0.6 AST 30 ALT 30 Alkaline Phosphatase 83 Total Protein 4.8 L Albumin 2.3 L Globulin 2.6 Albumin/Globulin Ratio 0.9 L Arterial Blood Potassium 3.6 Vancomycin Trough C. difficile Tox B Gene Blood Type Antibody Screen Crossmatch BBK History Checked 09/20/18 05:10 WBC RBC Hgb Hct MCV MCH MCHC RDW Plt Count MPV Neut % (Auto) Lymph % (Auto) [place] % (Auto) Eos % (Auto) Baso % (Auto) Neut # (Auto) Lymph # (Auto) [place] # (Auto) Eos # (Auto) Baso # (Auto) pCO2 pO2 HCO3 ABG pH ABG Total CO2 ABG O2 Saturation ABG O2 Content ABG Base Excess ABG Hemoglobin ABG Carboxyhemoglobin POC ABG HHb (Measured) ABG Methemoglobin ABG O2 Capacity Frederic Test ABG Potassium A-a O2 Difference Hgb O2 Saturation Glucose Lactate Vent Mode Mechanical Rate FiO2 Tidal Volume PEEP Crit Value Called To Crit Value Called By Crit Value Read Back Blood Gas Notified Time Sodium 151 H Potassium 3.3 L Chloride 114 H Carbon Dioxide 27 Anion Gap 13 BUN 99 H Creatinine 0.9 Est GFR ( Amer) > 60 Est GFR (Non-Af Amer) > 60 Random Glucose 141 H Calcium 7.7 L Phosphorus Magnesium Total Bilirubin AST ALT Alkaline Phosphatase Total Protein Albumin Globulin Albumin/Globulin Ratio Arterial Blood Potassium Vancomycin Trough C. difficile Tox B Gene Blood Type Antibody Screen Crossmatch BBK History Checked Microbiology 09/15/18 15:35 Blood-Thru Central Line Blood Culture - Preliminary NO GROWTH AFTER 4 DAYS 09/15/18 15:25 Blood-Thru Central Line Blood Culture - Preliminary NO GROWTH AFTER 4 DAYS 09/08/18 11:49 Blood-Venous Blood Culture - Final NO GROWTH AFTER 5 DAYS 09/08/18 11:49 Blood-Venous Gram Stain - Final TEST NOT PERFORMED 09/08/18 11:49 Blood-Venous Blood Culture - Final NO GROWTH AFTER 5 DAYS 09/08/18 11:49 Blood-Venous Gram Stain - Final TEST NOT PERFORMED 09/07/18 Unknown Blood-Thru Central Line Blood Culture - Final NO GROWTH AFTER 5 DAYS 09/07/18 Unknown Blood-Thru Central Line Gram Stain - Final TEST NOT PERFORMED 09/07/18 Unknown Blood-Thru Central Line Blood Culture - Final NO GROWTH AFTER 5 DAYS 09/07/18 Unknown Blood-Thru Central Line Gram Stain - Final TEST NOT PERFORMED 09/07/18 09:07 Trachasp Gram Stain - Final 09/07/18 09:07 Trachasp Sputum Culture - Final Yeast Species 09/04/18 11:25 Naris MRSA Culture (Admit) - Final MRSA NOT DETECTED Accession No. : [id number] Patient Name / ID : RYLEE ONEIL / [id number] Exam Date : 09/20/2018 04:06:52 ( Approved ) Study Comment : Sex / Age : F / 58Y Creator : Mario Etienne MD Dictator : Mario Etienne MD Film Developer : Printing Machine Operator Tape Rules : Mario Etienne MD Approver2 : Report Date : 09/20/2018 11:08:11 My Comment : Date of service: 09/20/2018 HISTORY: intubated COMPARISON: 09/19/2018 FINDINGS: LUNGS: Bilateral perihilar opacity, left greater than right. Possible pulmonary edema versus bilateral pneumonia. Congestive change noted. PLEURA: Small left pleural effusion. No right pleural effusion. No pneumothorax. CARDIOVASCULAR: No aortic atherosclerotic calcification present. Normal cardiac size. ET tube, NG tube and left IJ central venous catheter unchanged. OSSEOUS STRUCTURES: No significant abnormalities. VISUALIZED UPPER ABDOMEN: Normal. OTHER FINDINGS: None. IMPRESSION: Bilateral perihilar opacity and left pleural effusion. Bilateral pneumonia versus pulmonary edema. Lines and tubes unchanged. 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 remains intubated on pressors lethargic vaginal bleeding persistent low grade fevers despite empiric antibiotics and al cx negative( fevers could be from the tumor burden/malignancy ) CXR report noted. continues to have anemia and thrombocytopenia tumor lysis syndrome blood cx- 09/07/2018- neg x 6 trach asp cx- yeast stool c.diff- negative PLan- check 2 more blood cx. check one from the port. continue with empiric vanco day #10. keep trough <15. check UA and urine cx. advise to continue IV meropnem for broad spectrum gram negative coverage.day #12 continue with IV diflucan day #11 monitor absolute PMN and if becomes 500 or less needs to be on neutropenic precautions as well. critical care time spent 40 minutes. prognosis poor. case d/w Brand Marketing Specialist .
[2018-09-20 16:19] LABS: BASO % 0.8 % (0.0-2.0); HEMOGLOBIN 8.4 g/dL (12.0-16.0); LYMPH # 1.4 K/uL (1.0-4.3); LYMPH % 28.4 % (20.0-40.0); MEAN CELL VOLUME 88.5 fl (81.0-99.0); MEAN CORPUSCULAR HEMOGLOBIN 30.3 pg (27.0-31.0); MEAN CORPUSCULAR HGB CONC 34.2 g/dL (33.0-37.0); MEAN PLATELET VOLUME 9.5 fl (7.2-11.7); MONO # 0.1 K/uL (0.0-0.8); MONO % 1.8 % (0.0-10.0); NEUT # 3.3 K/uL (1.8-7.0); NRBC % 0.8 % (0.0-0.0); RBC 2.78 Mil/uL (3.80-5.20); WHITE BLOOD COUNT 4.7 K/uL (4.8-10.8)
[2018-09-20 16:29] LABS: INR 1.2; PROTHROMBIN TIME 13.3 Seconds (9.8-13.1)
[2018-09-20 16:32] LABS: PARTIAL THROMBOPLASTIN TIME 26.7 Seconds (25.6-37.1)
[2018-09-20 18:07] LABS: SQUAMOUS EPITHIAL 1 /hpf (0-5); URINE AMORPHOUS SEDIMENT OCC /ul (<OCC); URINE BACTERIA OCC (<OCC); URINE BILIRUBIN NEGATIVE (NEGATIVE); URINE BLOOD MODERATE (NEGATIVE); URINE CLARITY CLOUDY (Clear); URINE COLOR RED (YELLOW); URINE GLUCOSE (UA) NEG (NEGATIVE); URINE LEUKOCYTE ESTERASE NEG Leu/uL (Negative); URINE PROTEIN 100 mg/dL (NEGATIVE); URINE UROBILINOGEN 0.2-1.0 mg/dL (0.2-1.0)
[2018-09-21] MEDS: Meropenem 1 GM in Sodium Chloride 0.9% 100 ML IVPB SCH ×4 (00:15→17:34)
[2018-09-21] MEDS: Proshield Plus GEL TOP SCH ×3 (01:00→17:35)
[2018-09-21] MEDS: Propofol 10 mg/ml 1,000 MG/100 ML VIAL IV SCH (02:30)
--- NOTE | 2018-09-21 02:37 | CP.PCM.PN ---
Subjective - Date & Time of Evaluation Date of Evaluation: 09/19/18 Time of Evaluation: 19:25 - Subjective Subjective: Seen and examined at the bed side. Patient continue to decline. Anasarca, continue to be intubated and unresponsive. NOK refused DNR/DNI and end of lefe care. Unstable to discharge as patient is on Pressors, and will need G-Tube to send her even to long Acute Care Facility. Patient is MOF, Septic and Cardiogenic shock with Severe Cardiomyopathy, Anemia, Thrombo-cytopenia, Active bleeding, Stage IV Malignancy and extensive rashes. S/P Tracheostomy. Objective - Vital Signs/Intake and Output Vital Signs (last 24 hours): Temp Pulse Resp BP Pulse Ox 99.9 F H 102 H 16 103/59 L 98 09/21/18 00:00 09/21/18 00:00 09/21/18 00:00 09/21/18 00:00 09/21/18 00:00 Intake and Output: 09/20/18 09/21/18 18:59 06:59 Intake Total 2625 250 Output Total 550 Balance 2075 250 - Medications Medications: Current Medications Allopurinol (Zyloprim) 100 mg NG DAILY [facility] Last Admin: 09/20/18 09:42 Dose: Not Given Apixaban (Eliquis) 5 mg PO BID [facility]; Protocol Last Admin: 09/06/18 17:08 Dose: Not Given Dimethicone (Proshield Plus Skin Protectant) 1 applic TOP Q8 [facility] Last Admin: 09/20/18 16:44 Dose: 1 applic Furosemide (Lasix) 20 mg PO BID [facility] Last Admin: 09/06/18 17:10 Dose: Not Given Fluconazole (Diflucan Iv 100 Mg/50 Ml Ns) 50 mls @ 50 mls/hr IVPB DAILY [facility]; P rotocol Last Admin: 09/20/18 14:55 Dose: 50 mls/hr Meropenem 1 gm/ Sodium (Chloride) 100 mls @ 100 mls/hr IVPB Q8 [facility]; Protocol Last Admin: 09/20/18 14:56 Dose: 100 mls/hr Vancomycin HCl 1 gm/ Sodium (Chloride) 250 mls @ 166.667 mls/hr IVPB Q12 [facility]; Protocol Last Admin: 09/20/18 20:53 Dose: 166.667 mls/hr Norepinephrine Bitartrate 16 (mg/ Dextrose) 266 mls @ 24.94 mls/hr IV .[id number] [facility]; Protocol Stop: 09/21/18 11:53 Metolazone (Zaroxolyn) 5 mg PO DAILY [facility] Last Admin: 09/20/18 09:42 Dose: Not Given Metoprolol Tartrate (Lopressor) 12.5 mg PO Q12 [facility] Last Admin: 09/06/18 21:59 Dose: Not Given Morphine Sulfate (Morphine) 2 mg IVP Q4 PRN PRN Reason: Pain, moderate (4-7) Last Admin: 09/20/18 14:52 Dose: 2 mg Pantoprazole Sodium (Protonix Inj) 40 mg IVP DAILY [facility] Last Admin: 09/20/18 10:31 Dose: 40 mg - Labs Labs: 09/20/18 16:15 09/20/18 05:10 PT 13.3 Seconds (9.8-13.1) H 09/20/18 16:15 INR 1.2 09/20/18 16:15 APTT 26.7 Seconds (25.6-37.1) 09/20/18 16:15 Assessment and Plan (1) Acute respiratory failure with hypoxemia Status: Acute (2) Ascites, malignant Status: Acute (3) Congestive heart failure (CHF) Status: Acute (4) Stage IV breast cancer in female Status: Acute (5) Severe anemia Status: Resolved (6) DVT of lower extremity, bilateral Status: Chronic (7) Thrombocytopenia Status: Resolved - Assessment and Plan (Free Text) Plan: C/w comfort Care
--- NOTE | 2018-09-21 02:37 | CP.PCM.PN ---
Subjective - Date & Time of Evaluation Date of Evaluation: 09/20/18 Time of Evaluation: 18:15 - Subjective Subjective: Seen and examined at the bed side. Patient continue to decline. Anasarca, continue to be intubated and unresponsive. NOK refused DNR/DNI and end of lefe care. Unstable to discharge as patient is on Pressors, and will need G-Tube to send her even to long Acute Care Facility. Patient is MOF, Septic and Cardiogenic shock with Severe Cardiomyopathy, Anemia, Thrombo-cytopenia, Active bleeding, Stage IV Malignancy and extensive rashes. S/P Tracheostomy. Objective - Vital Signs/Intake and Output Vital Signs (last 24 hours): Temp Pulse Resp BP Pulse Ox 99.9 F H 102 H 16 103/59 L 98 09/21/18 00:00 09/21/18 00:00 09/21/18 00:00 09/21/18 00:00 09/21/18 00:00 Intake and Output: 09/20/18 09/21/18 18:59 06:59 Intake Total 2625 250 Output Total 550 Balance 2075 250 - Medications Medications: Current Medications Allopurinol (Zyloprim) 100 mg NG DAILY [facility] Last Admin: 09/20/18 09:42 Dose: Not Given Apixaban (Eliquis) 5 mg PO BID [facility]; Protocol Last Admin: 09/06/18 17:08 Dose: Not Given Dimethicone (Proshield Plus Skin Protectant) 1 applic TOP Q8 [facility] Last Admin: 09/20/18 16:44 Dose: 1 applic Furosemide (Lasix) 20 mg PO BID [facility] Last Admin: 09/06/18 17:10 Dose: Not Given Fluconazole (Diflucan Iv 100 Mg/50 Ml Ns) 50 mls @ 50 mls/hr IVPB DAILY [facility]; P rotocol Last Admin: 09/20/18 14:55 Dose: 50 mls/hr Meropenem 1 gm/ Sodium (Chloride) 100 mls @ 100 mls/hr IVPB Q8 [facility]; Protocol Last Admin: 09/20/18 14:56 Dose: 100 mls/hr Vancomycin HCl 1 gm/ Sodium (Chloride) 250 mls @ 166.667 mls/hr IVPB Q12 [facility]; Protocol Last Admin: 09/20/18 20:53 Dose: 166.667 mls/hr Norepinephrine Bitartrate 16 (mg/ Dextrose) 266 mls @ 24.94 mls/hr IV .[id number] [facility]; Protocol Stop: 09/21/18 11:53 Metolazone (Zaroxolyn) 5 mg PO DAILY [facility] Last Admin: 09/20/18 09:42 Dose: Not Given Metoprolol Tartrate (Lopressor) 12.5 mg PO Q12 [facility] Last Admin: 09/06/18 21:59 Dose: Not Given Morphine Sulfate (Morphine) 2 mg IVP Q4 PRN PRN Reason: Pain, moderate (4-7) Last Admin: 09/20/18 14:52 Dose: 2 mg Pantoprazole Sodium (Protonix Inj) 40 mg IVP DAILY [facility] Last Admin: 09/20/18 10:31 Dose: 40 mg - Labs Labs: 09/20/18 16:15 09/20/18 05:10 PT 13.3 Seconds (9.8-13.1) H 09/20/18 16:15 INR 1.2 09/20/18 16:15 APTT 26.7 Seconds (25.6-37.1) 09/20/18 16:15 Assessment and Plan (1) Acute respiratory failure with hypoxemia Status: Acute (2) Ascites, malignant Status: Acute (3) Congestive heart failure (CHF) Status: Acute (4) Stage IV breast cancer in female Status: Acute (5) Severe anemia Status: Resolved (6) DVT of lower extremity, bilateral Status: Chronic (7) Thrombocytopenia Status: Resolved
[2018-09-21 05:31] LABS: MEAN CORPUSCULAR HEMOGLOBIN 30.5 pg (27.0-31.0); MEAN CORPUSCULAR HGB CONC 33.9 g/dL (33.0-37.0); RBC 2.29 Mil/uL (3.80-5.20); RED CELL DISTRIBUTION WIDTH 15.1 % (11.5-14.5); WHITE BLOOD COUNT 3.6 K/uL (4.8-10.8)
[2018-09-21 05:38] LABS: BLOOD UREA NITROGEN 98 mg/dl (7-17); GFR NON-AFRICAN AMERICAN 57
[2018-09-21 05:50] LABS: ABG ALLEN TEST YES; ARTERIAL BLOOD GAS HCO3 26.5 mmol/L (21-28); ARTERIAL BLOOD GAS O2 SAT 99.5 % (95-98); ARTERIAL BLOOD GAS PCO2 44 mm/Hg (35-45); ARTERIAL BLOOD GAS PO2 96 mm/Hg (80-100); ARTERIAL BLOOD GAS TCO2 28.7 mmol/L (22-28)
[2018-09-21] MEDS ORDERED: Tranexamic Acid 1,000 MG in Sodium Chloride 0.9% 100 ML IVPB ONE (06:56)
[2018-09-21] MEDS ORDERED: Potassium Chloride 20 mEq/15 ml LIQ UD PO ONE (07:17)
[2018-09-21] MEDS: Fluconazole IV 100mg/50 ml NS 50 ML IVPB SCH (08:21)
[2018-09-21] MEDS: metOLazone 5 MG TAB PO SCH (08:42)
--- NOTE | 2018-09-21 10:01 | RAD ---
Date of service: 09/21/2018 HISTORY: intubated COMPARISON: 09/20/2018. FINDINGS: Endotracheal tube terminates 5 mm proximal to the loren. The nasogastric tube terminates in the stomach. The left-sided central venous catheter terminates at the cavoatrial junction LUNGS: Since the prior examination, there has been no significant interval change in severe pulmonary venous congestion with pulmonary redistribution. There is interval worsening ground-glass opacification in the left upper lobe with persistent left lower lobe airspace disease. PLEURA: Stable left pleural effusion. No pneumothorax. CARDIOVASCULAR: Persistent cardiomegaly with prominent central vasculature. No aortic atherosclerotic calcifications present. OSSEOUS STRUCTURES: Within normal limits for the patient's age. VISUALIZED UPPER ABDOMEN: Normal. OTHER FINDINGS: None. IMPRESSION: Interval development of presumable pulmonary edema in the left lung. No significant interval change in pulmonary venous congestion with redistribution and moderate left pleural effusion. Stable position of support line and tubes.
--- NOTE | 2018-09-21 10:04 | CP.PCM.PN ---
Subjective - Date & Time of Evaluation Date of Evaluation: 09/21/18 Time of Evaluation: 10:02 - Subjective Subjective: Infectious disease note Patient seen and examined today in the ICU. Patient remains intubated and on pressors and is lethargic. Objective - Vital Signs/Intake and Output Vital Signs (last 24 hours): Temp Pulse Resp BP Pulse Ox 99.9 F H 106 H 16 101/56 L 100 09/21/18 07:00 09/21/18 09:00 09/21/18 09:00 09/21/18 09:00 09/21/18 09:00 Intake and Output: 09/21/18 09/21/18 06:59 18:59 Intake Total 450 Output Total 500 Balance -50 - Medications Medications: Current Medications Allopurinol (Zyloprim) 100 mg NG DAILY [facility] Last Admin: 09/21/18 08:42 Dose: Not Given Apixaban (Eliquis) 5 mg PO BID [facility]; Protocol Last Admin: 09/06/18 17:08 Dose: Not Given Dimethicone (Proshield Plus Skin Protectant) 1 applic TOP Q8 [facility] Last Admin: 09/21/18 08:23 Dose: 1 applic Furosemide (Lasix) 20 mg PO BID [facility] Last Admin: 09/06/18 17:10 Dose: Not Given Fluconazole (Diflucan Iv 100 Mg/50 Ml Ns) 50 mls @ 50 mls/hr IVPB DAILY [facility]; Protocol Last Admin: 09/21/18 08:21 Dose: 50 mls/hr Meropenem 1 gm/ Sodium (Chloride) 100 mls @ 100 mls/hr IVPB Q8 [facility]; Protocol Last Admin: 09/21/18 08:22 Dose: 100 mls/hr Vancomycin HCl 1 gm/ Sodium (Chloride) 250 mls @ 166.667 mls/hr IVPB Q12 [facility]; Protocol Last Admin: 09/20/18 20:53 Dose: 166.667 mls/hr Norepinephrine Bitartrate 16 (mg/ Dextrose) 266 mls @ 24.94 mls/hr IV .[id number] ONE; Protocol Stop: 09/21/18 11:53 Last Admin: 09/21/18 05:16 Dose: 25 mcg/min, 24.94 mls/hr Tranexamic Acid 1,000 mg/ (Sodium Chloride) 110 mls @ 12.5 mls/hr IVPB ONCE ONE Stop: 09/21/18 15:43 Metolazone (Zaroxolyn) 5 mg PO DAILY [facility] Last Admin: 09/21/18 08:42 Dose: Not Given Metoprolol Tartrate (Lopressor) 12.5 mg PO Q12 [facility] Last Admin: 09/06/18 21:59 Dose: Not Given Morphine Sulfate (Morphine) 2 mg IVP Q4 PRN PRN Reason: Pain, moderate (4-7) Last Admin: 09/20/18 14:52 Dose: 2 mg Pantoprazole Sodium (Protonix Inj) 40 mg IVP DAILY [facility] Last Admin: 09/21/18 08:24 Dose: 40 mg - Labs Labs: - Additional Findings Additional findings: - Constitutional Appears: Chronically Ill Additional comments: intubated but awake - Eye Exam Eye Exam: PERRL - ENT Exam Additional comments: ET and OGT in place - Neck Exam Additional comments: supple - Respiratory Exam Additional comments: On the vent - Cardiovascular Exam Cardiovascular Exam: Tachycardia, +S1, +S2 - GI/Abdominal Exam Additional comments: distended, soft hypoactive BS umbilical region with mass like lesion with denuded skin , no pus, bloody discharge scant only - Extremities Exam Additional comments: b/l 1+ edema in LE and left hand edema - Neurological Exam Additional comments: more alert and responds to some commands and opens her eyes when her name is called - Skin Additional comments: right breast entirely covered with fungating looking round erythematous lesions few have opened up and bleeding superfically - Additional Findings Additional findings: lines- ET and OG tube left chest mediport hardwick cath- draining bloody urine rectal tube with brown liquid stool Laboratory Results - last 72 hr 09/18/18 09/18/18 09/18/18 07:45 12:49 17:23 WBC 4.7 L RBC 2.28 L Hgb 7.0 L Hct 21.1 L MCV 92.3 MCH 30.6 MCHC 33.2 RDW 14.6 H Plt Count 30 L* D MPV Neut % (Auto) Lymph % (Auto) [place] % (Auto) Eos % (Auto) Baso % (Auto) Neut # (Auto) Lymph # (Auto) [place] # (Auto) Eos # (Auto) Baso # (Auto) PT INR APTT Fibrinogen pCO2 pO2 HCO3 ABG pH ABG Total CO2 ABG O2 Saturation ABG O2 Content ABG Base Excess ABG Hemoglobin ABG Carboxyhemoglobin POC ABG HHb (Measured) ABG Methemoglobin ABG O2 Capacity Frederic Test ABG Potassium A-a O2 Difference Hgb O2 Saturation Glucose Lactate Vent Mode Mechanical Rate FiO2 Tidal Volume PEEP Sodium Potassium Chloride Carbon Dioxide Anion Gap BUN Creatinine Est GFR ( Amer) Est GFR (Non-Af Amer) Random Glucose Lactic Acid Calcium Phosphorus Magnesium Total Bilirubin AST ALT Alkaline Phosphatase Total Protein Albumin Globulin Albumin/Globulin Ratio Arterial Blood Potassium Urine Color Urine Clarity Urine pH Ur Specific [place] Urine Protein Urine Glucose (UA) Urine Ketones Urine Blood Urine Nitrate Urine Bilirubin Urine Urobilinogen Ur Leukocyte Esterase Urine RBC (Auto) Urine Microscopic WBC Ur Squamous Epith Cells Amorphous Sediment Urine Bacteria Vancomycin Trough C. difficile Tox B Gene Not detected Blood Type A POSITIVE Antibody Screen Negative Crossmatch See Detail BBK History Checked Patient has bt 09/19/18 09/19/18 09/19/18 04:00 04:35 04:35 WBC 4.0 L RBC 2.03 L Hgb 6.3 L* Hct 18.6 L MCV 91.7 MCH 30.9 MCHC 33.7 RDW 14.6 H Plt Count 12 L* D MPV 8.4 Neut % (Auto) 80.4 H Lymph % (Auto) 17.4 L [place] % (Auto) 1.9 Eos % (Auto) 0.0 Baso % (Auto) 0.3 Neut # (Auto) 3.2 Lymph # (Auto) 0.7 L [place] # (Auto) 0.1 Eos # (Auto) 0.0 Baso # (Auto) 0.0 PT INR APTT Fibrinogen pCO2 46 H pO2 112 H HCO3 25.3 ABG pH 7.36 ABG Total CO2 27.4 ABG O2 Saturation 99.1 H ABG O2 Content 9.1 L ABG Base Excess 0.5 ABG Hemoglobin 6.6 L ABG Carboxyhemoglobin 2.2 H POC ABG HHb (Measured) 0.9 ABG Methemoglobin 1.2 ABG O2 Capacity 9.2 L Frederic Test Yes ABG Potassium A-a O2 Difference 187.0 Hgb O2 Saturation 95.7 Glucose Lactate Vent Mode A/c Mechanical Rate 16 FiO2 50.0 Tidal Volume 400 PEEP 5 Sodium 146 Potassium 4.2 Chloride 112 H Carbon Dioxide 27 Anion Gap 11 BUN 89 H Creatinine 0.9 Est GFR ( Amer) > 60 Est GFR (Non-Af Amer) > 60 Random Glucose 117 H Lactic Acid Calcium 7.6 L Phosphorus 4.4 Magnesium 2.0 Total Bilirubin 0.6 AST 30 ALT 30 Alkaline Phosphatase 83 Total Protein 4.8 L Albumin 2.3 L Globulin 2.6 Albumin/Globulin Ratio 0.9 L Arterial Blood Potassium Urine Color Urine Clarity Urine pH Ur Specific [place] Urine Protein Urine Glucose (UA) Urine Ketones Urine Blood Urine Nitrate Urine Bilirubin Urine Urobilinogen Ur Leukocyte Esterase Urine RBC (Auto) Urine Microscopic WBC Ur Squamous Epith Cells Amorphous Sediment Urine Bacteria Vancomycin Trough C. difficile Tox B Gene Blood Type Antibody Screen Crossmatch BBK History Checked 09/20/18 09/20/18 09/20/18 04:39 05:10 05:10 WBC 2.5 L RBC 1.31 L Hgb 4.1 L* D Hct 12.1 L MCV 91.9 MCH 31.2 H MCHC 34.0 RDW 14.7 H Plt Count 20 L* MPV Neut % (Auto) Lymph % (Auto) [place] % (Auto) Eos % (Auto) Baso % (Auto) Neut # (Auto) Lymph # (Auto) [place] # (Auto) Eos # (Auto) Baso # (Auto) PT INR APTT Fibrinogen pCO2 41 pO2 77 L HCO3 25.8 ABG pH 7.41 ABG Total CO2 27.3 ABG O2 Saturation 98.4 H ABG O2 Content ABG Base Excess 1.2 ABG Hemoglobin ABG Carboxyhemoglobin POC ABG HHb (Measured) ABG Methemoglobin ABG O2 Capacity Frederic Test Yes ABG Potassium 3.6 A-a O2 Difference 228.0 Hgb O2 Saturation Glucose 142 H Lactate 1.0 Vent Mode A/c Mechanical Rate 16 FiO2 50.0 Tidal Volume 400 PEEP 5 Sodium 151.0 H 151 H Potassium 3.3 L Chloride 124.0 H 114 H Carbon Dioxide 27 Anion Gap 13 BUN 99 H Creatinine 0.9 Est GFR ( Amer) > 60 Est GFR (Non-Af Amer) > 60 Random Glucose 141 H Lactic Acid Calcium 7.7 L Phosphorus Magnesium Total Bilirubin AST ALT Alkaline Phosphatase Total Protein Albumin Globulin Albumin/Globulin Ratio Arterial Blood Potassium 3.6 Urine Color Urine Clarity Urine pH Ur Specific [place] Urine Protein Urine Glucose (UA) Urine Ketones Urine Blood Urine Nitrate Urine Bilirubin Urine Urobilinogen Ur Leukocyte Esterase Urine RBC (Auto) Urine Microscopic WBC Ur Squamous Epith Cells Amorphous Sediment Urine Bacteria Vancomycin Trough C. difficile Tox B Gene Blood Type Antibody Screen Crossmatch BBK History Checked 09/20/18 09/20/18 09/20/18 16:15 16:15 16:16 WBC 4.7 L D RBC 2.78 L Hgb 8.4 L D Hct 24.6 L MCV 88.5 D MCH 30.3 MCHC 34.2 RDW 15.0 H Plt Count 23 L* MPV 9.5 Neut % (Auto) 69.0 Lymph % (Auto) 28.4 [place] % (Auto) 1.8 Eos % (Auto) 0.0 Baso % (Auto) 0.8 Neut # (Auto) 3.3 Lymph # (Auto) 1.4 [place] # (Auto) 0.1 Eos # (Auto) 0.0 Baso # (Auto) 0.0 PT 13.3 H INR 1.2 APTT 26.7 Fibrinogen 308 pCO2 pO2 HCO3 ABG pH ABG Total CO2 ABG O2 Saturation ABG O2 Content ABG Base Excess ABG Hemoglobin ABG Carboxyhemoglobin POC ABG HHb (Measured) ABG Methemoglobin ABG O2 Capacity Frederic Test ABG Potassium A-a O2 Difference Hgb O2 Saturation Glucose Lactate Vent Mode Mechanical Rate FiO2 Tidal Volume PEEP Sodium Potassium Chloride Carbon Dioxide Anion Gap BUN Creatinine Est GFR ( Amer) Est GFR (Non-Af Amer) Random Glucose Lactic Acid 1.1 Calcium Phosphorus Magnesium Total Bilirubin AST ALT Alkaline Phosphatase Total Protein Albumin Globulin Albumin/Globulin Ratio Arterial Blood Potassium Urine Color Urine Clarity Urine pH Ur Specific [place] Urine Protein Urine Glucose (UA) Urine Ketones Urine Blood Urine Nitrate Urine Bilirubin Urine Urobilinogen Ur Leukocyte Esterase Urine RBC (Auto) Urine Microscopic WBC Ur Squamous Epith Cells Amorphous Sediment Urine Bacteria Vancomycin Trough C. difficile Tox B Gene Blood Type Antibody Screen Crossmatch BBK History Checked 09/20/18 09/21/18 09/21/18 17:48 04:50 04:50 WBC 3.6 L RBC 2.29 L Hgb 7.0 L Hct 20.6 L MCV 90.0 MCH 30.5 MCHC 33.9 RDW 15.1 H Plt Count 10 L* D MPV Neut % (Auto) Lymph % (Auto) [place] % (Auto) Eos % (Auto) Baso % (Auto) Neut # (Auto) Lymph # (Auto) [place] # (Auto) Eos # (Auto) Baso # (Auto) PT INR APTT Fibrinogen pCO2 pO2 HCO3 ABG pH ABG Total CO2 ABG O2 Saturation ABG O2 Content ABG Base Excess ABG Hemoglobin ABG Carboxyhemoglobin POC ABG HHb (Measured) ABG Methemoglobin ABG O2 Capacity Frederic Test ABG Potassium A-a O2 Difference Hgb O2 Saturation Glucose Lactate Vent Mode Mechanical Rate FiO2 Tidal Volume PEEP Sodium Potassium Chloride Carbon Dioxide Anion Gap BUN Creatinine Est GFR ( Amer) Est GFR (Non-Af Amer) Random Glucose Lactic Acid Calcium Phosphorus Magnesium Total Bilirubin AST ALT Alkaline Phosphatase Total Protein Albumin Globulin Albumin/Globulin Ratio Arterial Blood Potassium Urine Color Red Urine Clarity Cloudy Urine pH 6.0 Ur Specific [place] 1.014 Urine Protein 100 Urine Glucose (UA) Neg Urine Ketones Negative Urine Blood Moderate Urine Nitrate Negative Urine Bilirubin Negative Urine Urobilinogen 0.2-1.0 Ur Leukocyte Esterase Neg Urine RBC (Auto) 29 H Urine Microscopic WBC 17 H Ur Squamous Epith Cells 1 Amorphous Sediment Occ H Urine Bacteria Occ H Vancomycin Trough 12.5 H C. difficile Tox B Gene Blood Type Antibody Screen Crossmatch BBK History Checked 09/21/18 09/21/18 04:50 05:40 WBC RBC Hgb Hct MCV MCH MCHC RDW Plt Count MPV Neut % (Auto) Lymph % (Auto) [place] % (Auto) Eos % (Auto) Baso % (Auto) Neut # (Auto) Lymph # (Auto) [place] # (Auto) Eos # (Auto) Baso # (Auto) PT INR APTT Fibrinogen pCO2 44 pO2 96 HCO3 26.5 ABG pH 7.40 ABG Total CO2 28.7 H ABG O2 Saturation 99.5 H ABG O2 Content ABG Base Excess 2.0 ABG Hemoglobin ABG Carboxyhemoglobin POC ABG HHb (Measured) ABG Methemoglobin ABG O2 Capacity Frederic Test Yes ABG Potassium 3.3 L A-a O2 Difference 206.0 Hgb O2 Saturation Glucose 132 H Lactate 0.8 Vent Mode A/c Mechanical Rate 16 FiO2 50.0 Tidal Volume 400 PEEP 5 Sodium 149 H 150.0 H Potassium 3.4 L Chloride 115 H 123.0 H Carbon Dioxide 28 Anion Gap 9 L BUN 98 H Creatinine 1.0 Est GFR ( Amer) > 60 Est GFR (Non-Af Amer) 57 Random Glucose 129 H Lactic Acid Calcium 8.0 L Phosphorus Magnesium Total Bilirubin AST ALT Alkaline Phosphatase Total Protein Albumin Globulin Albumin/Globulin Ratio Arterial Blood Potassium 3.3 L Urine Color Urine Clarity Urine pH Ur Specific [place] Urine Protein Urine Glucose (UA) Urine Ketones Urine Blood Urine Nitrate Urine Bilirubin Urine Urobilinogen Ur Leukocyte Esterase Urine RBC (Auto) Urine Microscopic WBC Ur Squamous Epith Cells Amorphous Sediment Urine Bacteria Vancomycin Trough C. difficile Tox B Gene Blood Type Antibody Screen Crossmatch BBK History Checked Microbiology 09/20/18 17:53 Trachasp Gram Stain - Final 09/15/18 15:35 Blood-Thru Central Line Blood Culture - Final NO GROWTH AFTER 5 DAYS 09/15/18 15:35 Blood-Thru Central Line Gram Stain - Final TEST NOT PERFORMED 09/15/18 15:25 Blood-Thru Central Line Blood Culture - Final NO GROWTH AFTER 5 DAYS 09/15/18 15:25 Blood-Thru Central Line Gram Stain - Final TEST NOT PERFORMED 09/08/18 11:49 Blood-Venous Blood Culture - Final NO GROWTH AFTER 5 DAYS 09/08/18 11:49 Blood-Venous Gram Stain - Final TEST NOT PERFORMED 09/08/18 11:49 Blood-Venous Blood Culture - Final NO GROWTH AFTER 5 DAYS 09/08/18 11:49 Blood-Venous Gram Stain - Final TEST NOT PERFORMED 09/07/18 Unknown Blood-Thru Central Line Blood Culture - Final NO GROWTH AFTER 5 DAYS 09/07/18 Unknown Blood-Thru Central Line Gram Stain - Final TEST NOT PERFORMED 09/07/18 Unknown Blood-Thru Central Line Blood Culture - Final NO GROWTH AFTER 5 DAYS 09/07/18 Unknown Blood-Thru Central Line Gram Stain - Final TEST NOT PERFORMED 09/07/18 09:07 Trachasp Gram Stain - Final 09/07/18 09:07 Trachasp Sputum Culture - Final Yeast Species 09/04/18 11:25 Naris MRSA Culture (Admit) - Final MRSA NOT DETECTED Accession No. : [id number] Patient Name / ID : RYLEE ONEIL / [id number] Exam Date : 09/21/2018 04:38:52 ( Approved ) Study Comment : Sex / Age : F / 58Y Creator : Krystle Gage MD Dictator : Krystle Gage MD Medical Laboratory Scientist : Production Control Manager : Krystle Gage MD Approver2 : Report Date : 09/21/2018 09:55:33 My Comment : Date of service: 09/21/2018 HISTORY: intubated COMPARISON: 09/20/2018. FINDINGS: Endotracheal tube terminates 5 mm proximal to the loren. The nasogastric tube terminates in the stomach. The left-sided central venous catheter terminates at the cavoatrial junction LUNGS: Since the prior examination, there has been no significant interval change in severe pulmonary venous congestion with pulmonary redistribution. There is interval worsening ground-glass opacification in the left upper lobe with persistent left lower lobe airspace disease. PLEURA: Stable left pleural effusion. No pneumothorax. CARDIOVASCULAR: Persistent cardiomegaly with prominent central vasculature. No aortic atherosclerotic calcifications present. OSSEOUS STRUCTURES: Within normal limits for the patient's age. VISUALIZED UPPER ABDOMEN: Normal. OTHER FINDINGS: None. IMPRESSION: Interval development of presumable pulmonary edema in the left lung. No significant interval change in pulmonary venous congestion with redistribution and moderate left pleural effusion. Stable position of support line and tubes. 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 remains intubated on pressors lethargic vaginal bleeding persistent low grade fevers despite empiric antibiotics and al cx negative( fevers could be from the tumor burden/malignancy ) CXR report noted. continues to have anemia and thrombocytopenia tumor lysis syndrome blood cx- 09/07/2018- neg x 6 trach asp cx- yeast stool c.diff- negative repeat UA- negative PLan- continue with empiric vanco day #10. keep trough <15. advise to continue IV meropnem for broad spectrum gram negative coverage.day #13 continue with IV diflucan day #12 monitor absolute PMN and if becomes 500 or less needs to be on neutropenic precautions as well. critical care time spent 40 minutes. prognosis poor.
--- NOTE | 2018-09-21 12:10 | PCM.PROC ---
Procedures Attestation:: I certify that I have explained the specified Operation(s) or Procedure(s), risks, benefits and reasonable alternatives to the Patient and/or other person responsible. The opportunity was given to ask questions and all questions answered - Central Line Placement Right Femoral Triple Lumen Catheter Aseptic technique was employed throughout the procedure: Hand Hygiene done prior to procedure, Full sterile barriers (mask, hair cover, sterile gown, sterile gloves), Full body sterile drape, Chloraprep Antiseptic: 2 minute prep for Femoral CVP Time Out Performed: Yes Pt. Placed on Pulse Ox Monitor: Yes Central Line Prep: Chlorhexidine-Alcohol Combination Local Anesthesia Used: Lidocaine 1% Amount of Anesthesia Used (mls): 5 Ultrasound Used for Placement: No Central Line Lumen Inserted: triple Central Line Length: 20 cm Post Procedure: Sutured in Place, Good Blood Return, All Ports Aspirated, Flushed, Capped, Sterile Dressing Applied Secured by: Suture Post procedure dressing: Clear vapor permeable, Chlorhexidine disc (Biopatch) Post Procedure X-Ray: No Patient Tolerated Procedure: Well Additional Comments: Right Femoral site chosen due to severe thrombocytopenia ( platelets 10K), in order to minimize any bleeding complications, though there were none.
--- NOTE | 2018-09-21 12:15 | CP.CCUPN ---
CCU Subjective - Physician Review Subjective (Free Text): Sedation with Propofol, on 15 mcg dose on MV, RASS is at neg 3, still breathing 16on AC 16, TV 400ml, 50% PEEP 5. Remains on Levophed, at 25 mcg dose ( double dose). Fever spike to 101.1F overnight; temps mostly 99-100F, SBPs 100s, HR 106, 100% SPO2. Approx 2.0 liter positive fluid balance. Vaginal clots have reduced, but still bleeding. OGT draining coffee ground fluid. Tube feeds off. No other distress noted. ROS: No other pertinent negs or positive on 10+ system review obtainable due to sedation. Other PMSFH: All other Nursing and physician documentation reviewed to date; no new pertinent info noted relevant to current medical problems. EXAM- HEENT: no icterus, pupils equal, 3 mm and reactive, no gaze preference NECK: no visible JVD, supple, carotids equal upstroke bilat/no bruits CHEST: decreased BS bases, no wheezes audible, bloody fluid drained dressing over R breast. Left chest portacath. HEART: regular, distant, tachy S1S2, no murmur audible, no rubs. ABD: soft, ++distention with ascites, no focal tenderness, BS hypoactive, dried necrotic lesion over umbilicus unchanged. Previous paracentesis puncture site still leaking ascitic fluid. EXT: ++ edema LEs, and arms +ulcer posterior R calf worse than L, no calf tenderness or palpable cords, distal pulses intact and symmetrical NEURO: withdraws to pain stimuli, + tone SKIN: no rashes LABS: WBC= 3.6 HGB= 7.0 PLTs = 10K 7.40/44/96 Na= 149 K= 3.4 Cl= 115 HCO3= 28 BUN/Cr= 98/1.0 BS= 129 CXR: (my interp)- ETT position OK above loren. Worse Left basilar interstitial changes prominent. IMPRESSION / MAJOR PROBLEMS NOW: 1. Acute hypoxemic Resp Failure, 2 bilat multi-lobar pneumonia 2. Persistent vaginal Bleeding 3. Severe Sepsis with shock, 2 Pneumonia, r/o bacteremia 4. Acute on Chronic disease Anemia 5. h/o DVT- bilat CFV on Fe 5. 6. s/p Paracentesis Feb 5 for 2.5 liters PLAN: 1. Additional PRBCs and platelets ordered. Significant vasopressor dependency noted. After today, will have recd 23 units of PRBCs and 9-pack units of platelets to no avail in stabilizing Hgb and platelet counts. Tranexamic acid given today in attempt to stabilize ongoing bleeding and suspect GI tract bleeding as well. Consider GI and SERVICE ORDER TAKER Surgery evals. Consider IR eval if patient amenable to embolization. 2. Will consider one more Tranexamic acid dose today if successful in controlling vaginal bleeding somewhat, unless other occult endometrial pathology present. 3. Checked coags again which remain normal; and no DIC. 4. No signs of bone marrow recovery with WBC and platelet counts. 5. Day # 18 MV support. Patient has approached need for Trach. Unable to perform any SBTs if HGb remains unstable. 6. Juan / Vanco / Diflucan, repeat BCs up to Sep 15 negative so far. Repeat Sputum Cx ordered yesterday and pending given CXR worsening. 7. Need ongoing re-discussion with Family / Mother regarding patients refractoriness to aggressive therapy and declining status.
[2018-09-21 12:35] LABS: ABG ALLEN TEST YES; ARTERIAL BLOOD GAS HCO3 26.8 mmol/L (21-28); ARTERIAL BLOOD GAS HEMOGLOBIN 6.5 g/dL (11.7-17.4); ARTERIAL BLOOD GAS O2 CAPACITY 8.5 mL/dL (16-24); ARTERIAL BLOOD GAS O2 CONTENT 6.9 ML/dL (15-23); ARTERIAL BLOOD GAS O2 SAT 80.8 % (95-98); ARTERIAL BLOOD GAS PCO2 49 mm/Hg (35-45); ARTERIAL BLOOD GAS PH 7.37 (7.35-7.45); ARTERIAL BLOOD GAS PO2 40 mm/Hg (80-100); ARTERIAL BLOOD GAS TCO2 29.8 mmol/L (22-28)
--- NOTE | 2018-09-21 16:53 | CP.PCM.PN ---
Subjective - Date & Time of Evaluation Date of Evaluation: 09/21/18 Time of Evaluation: 15:00 - Subjective Subjective: SEEN ON RENAL F/U IN ICU REMAINS INTUBATED .. 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 ALL PREVIOUS EMR REVIEWED CREATININ NORMAL WHILE BUN GOING UP STILL WITH HEMATURIA IN FINK BAG RECIEVING TRASFUSION ACCORDINGLY Objective - Vital Signs/Intake and Output Vital Signs (last 24 hours): Temp Pulse Resp BP Pulse Ox 99.0 F 103 H 17 93/52 L 100 09/21/18 16:06 09/21/18 16:06 09/21/18 16:06 09/21/18 16:06 09/21/18 16:00 Intake and Output: 09/21/18 09/21/18 06:59 18:59 Intake Total 450 553 Output Total 500 Balance -50 553 - Medications Medications: Current Medications Allopurinol (Zyloprim) 100 mg NG DAILY [facility] Last Admin: 09/21/18 08:42 Dose: Not Given Apixaban (Eliquis) 5 mg PO BID [facility]; Protocol Last Admin: 09/06/18 17:08 Dose: Not Given Dimethicone (Proshield Plus Skin Protectant) 1 applic TOP Q8 [facility] Last Admin: 09/21/18 08:23 Dose: 1 applic Furosemide (Lasix) 20 mg PO BID [facility] Last Admin: 09/06/18 17:10 Dose: Not Given Fluconazole (Diflucan Iv 100 Mg/50 Ml Ns) 50 mls @ 50 mls/hr IVPB DAILY [facility]; Protocol Last Admin: 09/21/18 08:21 Dose: 50 mls/hr Meropenem 1 gm/ Sodium (Chloride) 100 mls @ 100 mls/hr IVPB Q8 [facility]; Protocol Last Admin: 09/21/18 08:22 Dose: 100 mls/hr Vancomycin HCl 1 gm/ Sodium (Chloride) 250 mls @ 166.667 mls/hr IVPB Q12 [facility]; Protocol Last Admin: 09/21/18 10:15 Dose: 166.667 mls/hr Potassium Chloride (Potassium Cl 10meq/50ml Sterile Water) 50 mls @ 50 mls/hr IVPB Q1 [facility] Stop: 09/21/18 19:59 Metolazone (Zaroxolyn) 5 mg PO DAILY [facility] Last Admin: 09/21/18 08:42 Dose: Not Given Metoprolol Tartrate (Lopressor) 12.5 mg PO Q12 [facility] Last Admin: 09/06/18 21:59 Dose: Not Given Morphine Sulfate (Morphine) 2 mg IVP Q4 PRN PRN Reason: Pain, moderate (4-7) Last Admin: 09/20/18 14:52 Dose: 2 mg Pantoprazole Sodium (Protonix Inj) 40 mg IVP DAILY [facility] Last Admin: 09/21/18 08:24 Dose: 40 mg - Labs Labs: 09/21/18 04:50 09/21/18 04:50 PT 13.3 Seconds (9.8-13.1) H 09/20/18 16:15 INR 1.2 09/20/18 16:15 APTT 26.7 Seconds (25.6-37.1) 09/20/18 16:15 Assessment and Plan - Assessment and Plan (Free Text) Assessment: LOUIE .. MAINLY PRE RENAL AZOTEMIA HYPERNATREMIA HEMATURIA WELL GENERALISED BLEEDING VDRF SEPSIS P : DISSOLVE ALL IV MEDS IN NS COMPATIBLE C/O CURRENT CARE C/O PRESENT MANAGEMENT
[2018-09-21] MEDS: Potassium CL 10 MEQ/50 ML 50 ML IVPB SCH ×4 (17:44→22:14)
--- NOTE | 2018-09-22 00:14 | CP.PCM.PN ---
Subjective - Date & Time of Evaluation Date of Evaluation: 09/20/18 Time of Evaluation: 12:00 - Subjective Subjective: Vented Objective - Vital Signs/Intake and Output Vital Signs (last 24 hours): Temp Pulse Resp BP Pulse Ox 99.1 F 108 H 19 93/56 L 100 09/21/18 22:15 09/21/18 22:15 09/21/18 22:15 09/21/18 22:15 09/21/18 18:00 Intake and Output: 09/21/18 09/22/18 18:59 06:59 Intake Total 1544 717 Output Total 1000 Balance 544 717 - Medications Medications: Current Medications Allopurinol (Zyloprim) 100 mg NG DAILY [facility] Last Admin: 09/21/18 08:42 Dose: Not Given Apixaban (Eliquis) 5 mg PO BID [facility]; Protocol Last Admin: 09/06/18 17:08 Dose: Not Given Furosemide (Lasix) 20 mg PO BID [facility] Last Admin: 09/06/18 17:10 Dose: Not Given Fluconazole (Diflucan Iv 100 Mg/50 Ml Ns) 50 mls @ 50 mls/hr IVPB DAILY [facility]; Protocol Last Admin: 09/21/18 08:21 Dose: 50 mls/hr Meropenem 1 gm/ Sodium (Chloride) 100 mls @ 100 mls/hr IVPB Q8 [facility]; Protocol Last Admin: 09/21/18 17:34 Dose: 100 mls/hr Vancomycin HCl 1 gm/ Sodium (Chloride) 250 mls @ 166.667 mls/hr IVPB Q12 [facility]; P rotocol Last Admin: 09/21/18 10:15 Dose: 166.667 mls/hr Norepinephrine Bitartrate 16 (mg/ Dextrose) 266 mls @ 14.96 mls/hr IV .[id number] ONE; Protocol Stop: 09/22/18 14:00 Last Admin: 09/21/18 23:34 Dose: 20 mcg/min, 19.95 mls/hr Metolazone (Zaroxolyn) 5 mg PO DAILY [facility] Last Admin: 09/21/18 08:42 Dose: Not Given Metoprolol Tartrate (Lopressor) 12.5 mg PO Q12 [facility] Last Admin: 09/06/18 21:59 Dose: Not Given Morphine Sulfate (Morphine) 2 mg IVP Q4 PRN PRN Reason: Pain, moderate (4-7) Last Admin: 09/20/18 14:52 Dose: 2 mg Pantoprazole Sodium (Protonix Inj) 40 mg IVP DAILY [facility] Last Admin: 09/21/18 08:24 Dose: 40 mg - Labs Labs: 09/21/18 04:50 09/21/18 04:50 PT 13.3 Seconds (9.8-13.1) H 09/20/18 16:15 INR 1.2 09/20/18 16:15 APTT 26.7 Seconds (25.6-37.1) 09/20/18 16:15 - Head Exam Head Exam: ATRAUMATIC - Eye Exam Eye Exam: Normal appearance - ENT Exam ENT Exam: Mucous Membranes Dry - Respiratory Exam Respiratory Exam: Decreased Breath Sounds - Cardiovascular Exam Cardiovascular Exam: +S1, +S2 - GI/Abdominal Exam GI & Abdominal Exam: Normal Bowel Sounds - Extremities Exam Extremities Exam: Pedal Edema Assessment and Plan (1) Pancytopenia Assessment & Plan: secondary to chemotherapy transfusion support PRN Status: Acute (2) Pulmonary embolism Assessment & Plan: not on anticoagulation due to continued bleeding Status: Acute (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
--- NOTE | 2018-09-22 00:16 | CP.PCM.PN ---
Subjective - Date & Time of Evaluation Date of Evaluation: 09/21/18 Time of Evaluation: 12:00 - Subjective Subjective: Vented I had an at length discussion with the patients 2 brother on poor prognosis and continued overall decline. They are considering withdrawal of care but want to discuss further with the rest of the family. The will plan to make a decision later today. Objective - Vital Signs/Intake and Output Vital Signs (last 24 hours): Temp Pulse Resp BP Pulse Ox 99.1 F 108 H 19 93/56 L 100 09/21/18 22:15 09/21/18 22:15 09/21/18 22:15 09/21/18 22:15 09/21/18 18:00 Intake and Output: 09/21/18 09/22/18 18:59 06:59 Intake Total 1544 717 Output Total 1000 Balance 544 717 - Medications Medications: Current Medications Allopurinol (Zyloprim) 100 mg NG DAILY GLADIS Last Admin: 09/21/18 08:42 Dose: Not Given Apixaban (Eliquis) 5 mg PO BID [facility]; Protocol Last Admin: 09/06/18 17:08 Dose: Not Given Furosemide (Lasix) 20 mg PO BID [facility] Last Admin: 09/06/18 17:10 Dose: Not Given Fluconazole (Diflucan Iv 100 Mg/50 Ml Ns) 50 mls @ 50 mls/hr IVPB DAILY [facility]; Protocol Last Admin: 09/21/18 08:21 Dose: 50 mls/hr Meropenem 1 gm/ Sodium (Chloride) 100 mls @ 100 mls/hr IVPB Q8 [facility]; Protocol Last Admin: 09/21/18 17:34 Dose: 100 mls/hr Vancomycin HCl 1 gm/ Sodium (Chloride) 250 mls @ 166.667 mls/hr IVPB Q12 [facility]; Protocol Last Admin: 09/21/18 10:15 Dose: 166.667 mls/hr Norepinephrine Bitartrate 16 (mg/ Dextrose) 266 mls @ 14.96 mls/hr IV .[id number] ONE; Protocol Stop: 09/22/18 14:00 Last Admin: 09/21/18 23:34 Dose: 20 mcg/min, 19.95 mls/hr Metolazone (Zaroxolyn) 5 mg PO DAILY [facility] Last Admin: 09/21/18 08:42 Dose: Not Given Metoprolol Tartrate (Lopressor) 12.5 mg PO Q12 [facility] Last Admin: 09/06/18 21:59 Dose: Not Given Morphine Sulfate (Morphine) 2 mg IVP Q4 PRN PRN Reason: Pain, moderate (4-7) Last Admin: 09/20/18 14:52 Dose: 2 mg Pantoprazole Sodium (Protonix Inj) 40 mg IVP DAILY [facility] Last Admin: 09/21/18 08:24 Dose: 40 mg - Labs Labs: 09/21/18 04:50 09/21/18 04:50 PT 13.3 Seconds (9.8-13.1) H 09/20/18 16:15 INR 1.2 09/20/18 16:15 APTT 26.7 Seconds (25.6-37.1) 09/20/18 16:15 - Head Exam Head Exam: ATRAUMATIC - Eye Exam Eye Exam: Normal appearance - ENT Exam ENT Exam: Mucous Membranes Dry - Cardiovascular Exam Cardiovascular Exam: +S1, +S2 - GI/Abdominal Exam GI & Abdominal Exam: Normal Bowel Sounds - Extremities Exam Extremities Exam: Pedal Edema Assessment and Plan (1) Pancytopenia Assessment & Plan: secondary to chemotherapy transfusion support PRN Status: Acute (2) Pulmonary embolism Assessment & Plan: not on anticoagulation due to bleeding Status: Acute (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
[2018-09-22] MEDS: Meropenem 1 GM in Sodium Chloride 0.9% 100 ML IVPB SCH ×3 (00:17→16:30)
[2018-09-22] MEDS ORDERED: Propofol 10 mg/ml 1,000 MG/100 ML VIAL IV SCH (01:00)
[2018-09-22 05:30] LABS: ABG ALLEN TEST YES; ARTERIAL BLOOD GAS HCO3 26.5 mmol/L (21-28); ARTERIAL BLOOD GAS HEMOGLOBIN 7.9 g/dL (11.7-17.4); ARTERIAL BLOOD GAS O2 CAPACITY 11.2 mL/dL (16-24); ARTERIAL BLOOD GAS O2 CONTENT 11.1 ML/dL (15-23); ARTERIAL BLOOD GAS O2 SAT 99.3 % (95-98); ARTERIAL BLOOD GAS PCO2 45 mm/Hg (35-45); ARTERIAL BLOOD GAS PH 7.39 (7.35-7.45); ARTERIAL BLOOD GAS PO2 142 mm/Hg (80-100); ARTERIAL BLOOD GAS TCO2 28.6 mmol/L (22-28)
[2018-09-22 07:16] LABS: HEMOGLOBIN 7.8 g/dL (12.0-16.0); MEAN CELL VOLUME 89.9 fl (81.0-99.0); MEAN CORPUSCULAR HEMOGLOBIN 29.9 pg (27.0-31.0); MEAN CORPUSCULAR HGB CONC 33.2 g/dL (33.0-37.0); RBC 2.6 Mil/uL (3.80-5.20); RED CELL DISTRIBUTION WIDTH 15.3 % (11.5-14.5); WHITE BLOOD COUNT 2.7 K/uL (4.8-10.8)
[2018-09-22 07:30] LABS: BLOOD UREA NITROGEN 97 mg/dl (7-17); CALCIUM 8.3 mg/dL (8.4-10.2); GFR NON-AFRICAN AMERICAN 51
[2018-09-22] MEDS: Fluconazole IV 100mg/50 ml NS 50 ML IVPB SCH (08:32)
[2018-09-22] MEDS: metOLazone 5 MG TAB PO SCH (08:35)
--- NOTE | 2018-09-22 09:12 | CP.PCM.PN ---
Subjective - Date & Time of Evaluation Date of Evaluation: 09/22/18 Time of Evaluation: 09:11 - Subjective Subjective: Infectious disease note Patient was seen and examined in ICU today. Patient remains intubated and very lethargic. Objective - Vital Signs/Intake and Output Vital Signs (last 24 hours): Temp Pulse Resp BP Pulse Ox 98.8 F 97 H 16 96/56 L 99 09/22/18 08:00 09/22/18 08:00 09/22/18 08:00 09/22/18 08:00 09/22/18 08:00 Intake and Output: 09/22/18 09/22/18 06:59 18:59 Intake Total 1921 Output Total 900 Balance 1021 - Medications Medications: Current Medications Allopurinol (Zyloprim) 100 mg NG DAILY [facility] Last Admin: 09/22/18 08:35 Dose: Not Given Apixaban (Eliquis) 5 mg PO BID [facility]; Protocol Last Admin: 09/06/18 17:08 Dose: Not Given Furosemide (Lasix) 20 mg PO BID [facility] Last Admin: 09/06/18 17:10 Dose: Not Given Fluconazole (Diflucan Iv 100 Mg/50 Ml Ns) 50 mls @ 50 mls/hr IVPB DAILY [facility]; Protocol Last Admin: 09/22/18 08:32 Dose: 50 mls/hr Meropenem 1 gm/ Sodium (Chloride) 100 mls @ 100 mls/hr IVPB Q8 [facility]; Protocol Last Admin: 09/22/18 08:33 Dose: 100 mls/hr Vancomycin HCl 1 gm/ Sodium (Chloride) 250 mls @ 166.667 mls/hr IVPB Q12 [facility]; Protocol Last Admin: 09/22/18 08:34 Dose: 166.667 mls/hr Norepinephrine Bitartrate 16 (mg/ Dextrose) 266 mls @ 14.96 mls/hr IV .[id number] ONE; Protocol Stop: 09/22/18 14:00 Last Admin: 09/21/18 23:34 Dose: 20 mcg/min, 19.95 mls/hr Metolazone (Zaroxolyn) 5 mg PO DAILY [facility] Last Admin: 09/22/18 08:35 Dose: Not Given Metoprolol Tartrate (Lopressor) 12.5 mg PO Q12 [facility] Last Admin: 09/06/18 21:59 Dose: Not Given Morphine Sulfate (Morphine) 2 mg IVP Q4 PRN PRN Reason: Pain, moderate (4-7) Last Admin: 09/20/18 14:52 Dose: 2 mg Pantoprazole Sodium (Protonix Inj) 40 mg IVP DAILY [facility] Last Admin: 09/22/18 08:46 Dose: 40 mg - Labs Labs: - Additional Findings Additional findings: - Constitutional Appears: Chronically Ill Additional comments: intubated but awake - Eye Exam Eye Exam: PERRL - ENT Exam Additional comments: ET and OGT in place - Neck Exam Additional comments: supple - Respiratory Exam Additional comments: On the vent - Cardiovascular Exam Cardiovascular Exam: Tachycardia, +S1, +S2 - GI/Abdominal Exam Additional comments: distended, soft hypoactive BS umbilical region with mass like lesion with denuded skin , no pus, bloody discharge scant only - Extremities Exam Additional comments: b/l 1+ edema in LE and left hand edema - Neurological Exam Additional comments: more alert and responds to some commands and opens her eyes when her name is called - Skin Additional comments: right breast entirely covered with fungating looking round erythematous lesions few have opened up and bleeding superfically - Additional Findings Additional findings: lines- ET and OG tube left chest mediport hardwick cath- draining bloody urine rectal tube with brown liquid stool Laboratory Results - last 72 hr 09/18/18 09/18/18 09/20/18 07:45 12:49 04:39 WBC RBC Hgb Hct MCV MCH MCHC RDW Plt Count MPV Neut % (Auto) Lymph % (Auto) [place] % (Auto) Eos % (Auto) Baso % (Auto) Neut # (Auto) Lymph # (Auto) [place] # (Auto) Eos # (Auto) Baso # (Auto) PT INR APTT Fibrinogen pCO2 41 pO2 77 L HCO3 25.8 ABG pH 7.41 ABG Total CO2 27.3 ABG O2 Saturation 98.4 H ABG O2 Content ABG Base Excess 1.2 ABG Hemoglobin ABG Carboxyhemoglobin POC ABG HHb (Measured) ABG Methemoglobin ABG O2 Capacity Frederic Test Yes ABG Potassium 3.6 A-a O2 Difference 228.0 Hgb O2 Saturation Sodium 151.0 H Chloride 124.0 H Glucose 142 H Lactate 1.0 Vent Mode A/c Mechanical Rate 16 FiO2 50.0 Tidal Volume 400 PEEP 5 Crit Value Called To Crit Value Called By Crit Value Read Back Blood Gas Notified Time Potassium Carbon Dioxide Anion Gap BUN Creatinine Est GFR ( Amer) Est GFR (Non-Af Amer) Random Glucose Lactic Acid Calcium Arterial Blood Potassium 3.6 Urine Color Urine Clarity Urine pH Ur Specific [place] Urine Protein Urine Glucose (UA) Urine Ketones Urine Blood Urine Nitrate Urine Bilirubin Urine Urobilinogen Ur Leukocyte Esterase Urine RBC (Auto) Urine Microscopic WBC Ur Squamous Epith Cells Amorphous Sediment Urine Bacteria Vancomycin Trough C. difficile Tox B Gene Not detected Blood Type A POSITIVE Antibody Screen Negative Crossmatch See Detail BBK History Checked Patient has bt 09/20/18 09/20/18 09/20/18 05:10 05:10 16:15 WBC 2.5 L 4.7 L D RBC 1.31 L 2.78 L Hgb 4.1 L* D 8.4 L D Hct 12.1 L 24.6 L MCV 91.9 88.5 D MCH 31.2 H 30.3 MCHC 34.0 34.2 RDW 14.7 H 15.0 H Plt Count 20 L* 23 L* MPV 9.5 Neut % (Auto) 69.0 Lymph % (Auto) 28.4 [place] % (Auto) 1.8 Eos % (Auto) 0.0 Baso % (Auto) 0.8 Neut # (Auto) 3.3 Lymph # (Auto) 1.4 [place] # (Auto) 0.1 Eos # (Auto) 0.0 Baso # (Auto) 0.0 PT INR APTT Fibrinogen pCO2 pO2 HCO3 ABG pH ABG Total CO2 ABG O2 Saturation ABG O2 Content ABG Base Excess ABG Hemoglobin ABG Carboxyhemoglobin POC ABG HHb (Measured) ABG Methemoglobin ABG O2 Capacity Frederic Test ABG Potassium A-a O2 Difference Hgb O2 Saturation Sodium 151 H Chloride 114 H Glucose Lactate Vent Mode Mechanical Rate FiO2 Tidal Volume PEEP Crit Value Called To Crit Value Called By Crit Value Read Back Blood Gas Notified Time Potassium 3.3 L Carbon Dioxide 27 Anion Gap 13 BUN 99 H Creatinine 0.9 Est GFR ( Amer) > 60 Est GFR (Non-Af Amer) > 60 Random Glucose 141 H Lactic Acid Calcium 7.7 L Arterial Blood Potassium Urine Color Urine Clarity Urine pH Ur Specific [place] Urine Protein Urine Glucose (UA) Urine Ketones Urine Blood Urine Nitrate Urine Bilirubin Urine Urobilinogen Ur Leukocyte Esterase Urine RBC (Auto) Urine Microscopic WBC Ur Squamous Epith Cells Amorphous Sediment Urine Bacteria Vancomycin Trough C. difficile Tox B Gene Blood Type Antibody Screen Crossmatch BBK History Checked 09/20/18 09/20/18 09/20/18 16:15 16:16 17:48 WBC RBC Hgb Hct MCV MCH MCHC RDW Plt Count MPV Neut % (Auto) Lymph % (Auto) [place] % (Auto) Eos % (Auto) Baso % (Auto) Neut # (Auto) Lymph # (Auto) [place] # (Auto) Eos # (Auto) Baso # (Auto) PT 13.3 H INR 1.2 APTT 26.7 Fibrinogen 308 pCO2 pO2 HCO3 ABG pH ABG Total CO2 ABG O2 Saturation ABG O2 Content ABG Base Excess ABG Hemoglobin ABG Carboxyhemoglobin POC ABG HHb (Measured) ABG Methemoglobin ABG O2 Capacity Frederic Test ABG Potassium A-a O2 Difference Hgb O2 Saturation Sodium Chloride Glucose Lactate Vent Mode Mechanical Rate FiO2 Tidal Volume PEEP Crit Value Called To Crit Value Called By Crit Value Read Back Blood Gas Notified Time Potassium Carbon Dioxide Anion Gap BUN Creatinine Est GFR ( Amer) Est GFR (Non-Af Amer) Random Glucose Lactic Acid 1.1 Calcium Arterial Blood Potassium Urine Color Red Urine Clarity Cloudy Urine pH 6.0 Ur Specific [place] 1.014 Urine Protein 100 Urine Glucose (UA) Neg Urine Ketones Negative Urine Blood Moderate Urine Nitrate Negative Urine Bilirubin Negative Urine Urobilinogen 0.2-1.0 Ur Leukocyte Esterase Neg Urine RBC (Auto) 29 H Urine Microscopic WBC 17 H Ur Squamous Epith Cells 1 Amorphous Sediment Occ H Urine Bacteria Occ H Vancomycin Trough C. difficile Tox B Gene Blood Type Antibody Screen Crossmatch BBK History Checked 09/21/18 09/21/18 09/21/18 04:50 04:50 04:50 WBC 3.6 L RBC 2.29 L Hgb 7.0 L Hct 20.6 L MCV 90.0 MCH 30.5 MCHC 33.9 RDW 15.1 H Plt Count 10 L* D MPV Neut % (Auto) Lymph % (Auto) [place] % (Auto) Eos % (Auto) Baso % (Auto) Neut # (Auto) Lymph # (Auto) [place] # (Auto) Eos # (Auto) Baso # (Auto) PT INR APTT Fibrinogen pCO2 pO2 HCO3 ABG pH ABG Total CO2 ABG O2 Saturation ABG O2 Content ABG Base Excess ABG Hemoglobin ABG Carboxyhemoglobin POC ABG HHb (Measured) ABG Methemoglobin ABG O2 Capacity Frederic Test ABG Potassium A-a O2 Difference Hgb O2 Saturation Sodium 149 H Chloride 115 H Glucose Lactate Vent Mode Mechanical Rate FiO2 Tidal Volume PEEP Crit Value Called To Crit Value Called By Crit Value Read Back Blood Gas Notified Time Potassium 3.4 L Carbon Dioxide 28 Anion Gap 9 L BUN 98 H Creatinine 1.0 Est GFR ( Amer) > 60 Est GFR (Non-Af Amer) 57 Random Glucose 129 H Lactic Acid Calcium 8.0 L Arterial Blood Potassium Urine Color Urine Clarity Urine pH Ur Specific [place] Urine Protein Urine Glucose (UA) Urine Ketones Urine Blood Urine Nitrate Urine Bilirubin Urine Urobilinogen Ur Leukocyte Esterase Urine RBC (Auto) Urine Microscopic WBC Ur Squamous Epith Cells Amorphous Sediment Urine Bacteria Vancomycin Trough 12.5 H C. difficile Tox B Gene Blood Type Antibody Screen Crossmatch BBK History Checked 09/21/18 09/21/18 09/21/18 05:40 09:00 11:38 WBC RBC Hgb Hct MCV MCH MCHC RDW Plt Count MPV Neut % (Auto) Lymph % (Auto) [place] % (Auto) Eos % (Auto) Baso % (Auto) Neut # (Auto) Lymph # (Auto) [place] # (Auto) Eos # (Auto) Baso # (Auto) PT INR APTT Fibrinogen pCO2 44 49 H pO2 96 40 L* HCO3 26.5 26.8 ABG pH 7.40 7.37 ABG Total CO2 28.7 H 29.8 H ABG O2 Saturation 99.5 H 80.8 L ABG O2 Content 6.9 L ABG Base Excess 2.0 2.7 ABG Hemoglobin 6.5 L ABG Carboxyhemoglobin 5.8 H POC ABG HHb (Measured) 17.7 H ABG Methemoglobin 1.9 ABG O2 Capacity 8.5 L Frederic Test Yes Yes ABG Potassium 3.3 L A-a O2 Difference 206.0 184.0 Hgb O2 Saturation 74.5 L Sodium 150.0 H Chloride 123.0 H Glucose 132 H Lactate 0.8 Vent Mode A/c Mechanical Rate 16 FiO2 50.0 40.0 Tidal Volume 400 PEEP 5 Crit Value Called To Edgar alex rn Crit Value Called By 292 Crit Value Read Back Y Blood Gas Notified Time 1234 Potassium Carbon Dioxide Anion Gap BUN Creatinine Est GFR ( Amer) Est GFR (Non-Af Amer) Random Glucose Lactic Acid Calcium Arterial Blood Potassium 3.3 L Urine Color Urine Clarity Urine pH Ur Specific [place] Urine Protein Urine Glucose (UA) Urine Ketones Urine Blood Urine Nitrate Urine Bilirubin Urine Urobilinogen Ur Leukocyte Esterase Urine RBC (Auto) Urine Microscopic WBC Ur Squamous Epith Cells Amorphous Sediment Urine Bacteria Vancomycin Trough C. difficile Tox B Gene Blood Type A POSITIVE Antibody Screen Negative Crossmatch See Detail BBK History Checked Patient has bt 09/22/18 09/22/18 09/22/18 04:55 06:00 06:45 WBC 2.7 L RBC 2.60 L Hgb 7.8 L Hct 23.4 L MCV 89.9 MCH 29.9 MCHC 33.2 RDW 15.3 H Plt Count 55 L D MPV Neut % (Auto) Lymph % (Auto) [place] % (Auto) Eos % (Auto) Baso % (Auto) Neut # (Auto) Lymph # (Auto) [place] # (Auto) Eos # (Auto) Baso # (Auto) PT INR APTT Fibrinogen pCO2 45 pO2 142 H HCO3 26.5 ABG pH 7.39 ABG Total CO2 28.6 H ABG O2 Saturation 99.3 H ABG O2 Content 11.1 L ABG Base Excess 2.0 ABG Hemoglobin 7.9 L ABG Carboxyhemoglobin 1.6 H POC ABG HHb (Measured) 0.7 ABG Methemoglobin 1.0 ABG O2 Capacity 11.2 L Frederic Test Yes ABG Potassium A-a O2 Difference 158.0 Hgb O2 Saturation 96.7 Sodium 151 H Chloride 113 H Glucose Lactate Vent Mode A/c Mechanical Rate 16 FiO2 50.0 Tidal Volume 400 PEEP 5 Crit Value Called To Crit Value Called By Crit Value Read Back Blood Gas Notified Time Potassium 3.5 L Carbon Dioxide 27 Anion Gap 15 BUN 97 H Creatinine 1.1 Est GFR ( Amer) > 60 Est GFR (Non-Af Amer) 51 Random Glucose 99 Lactic Acid Calcium 8.3 L Arterial Blood Potassium Urine Color Urine Clarity Urine pH Ur Specific [place] Urine Protein Urine Glucose (UA) Urine Ketones Urine Blood Urine Nitrate Urine Bilirubin Urine Urobilinogen Ur Leukocyte Esterase Urine RBC (Auto) Urine Microscopic WBC Ur Squamous Epith Cells Amorphous Sediment Urine Bacteria Vancomycin Trough C. difficile Tox B Gene Blood Type Antibody Screen Crossmatch BBK History Checked Microbiology 09/20/18 14:00 Blood-Thru Central Line Blood Culture - Preliminary NO GROWTH AFTER 24 HOURS 09/20/18 17:53 Trachasp Gram Stain - Final 09/20/18 17:53 Trachasp Sputum Culture - Final Yeast Species 09/20/18 17:53 Urine,[place] Urine Culture - Final No Growth (<1,000 CFU/ML) 09/15/18 15:35 Blood-Thru Central Line Blood Culture - Final NO GROWTH AFTER 5 DAYS 09/15/18 15:35 Blood-Thru Central Line Gram Stain - Final TEST NOT PERFORMED 09/15/18 15:25 Blood-Thru Central Line Blood Culture - Final NO GROWTH AFTER 5 DAYS 09/15/18 15:25 Blood-Thru Central Line Gram Stain - Final TEST NOT PERFORMED 09/08/18 11:49 Blood-Venous Blood Culture - Final NO GROWTH AFTER 5 DAYS 09/08/18 11:49 Blood-Venous Gram Stain - Final TEST NOT PERFORMED 09/08/18 11:49 Blood-Venous Blood Culture - Final NO GROWTH AFTER 5 DAYS 09/08/18 11:49 Blood-Venous Gram Stain - Final TEST NOT PERFORMED 09/07/18 Unknown Blood-Thru Central Line Blood Culture - Final NO GROWTH AFTER 5 DAYS 09/07/18 Unknown Blood-Thru Central Line Gram Stain - Final TEST NOT PERFORMED 09/07/18 Unknown Blood-Thru Central Line Blood Culture - Final NO GROWTH AFTER 5 DAYS 09/07/18 Unknown Blood-Thru Central Line Gram Stain - Final TEST NOT PERFORMED 09/07/18 09:07 Trachasp Gram Stain - Final 09/07/18 09:07 Trachasp Sputum Culture - Final Yeast Species 09/04/18 11:25 Naris MRSA Culture (Admit) - Final MRSA NOT DETECTED 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 remains intubated on pressors lethargic afebrile today CXR report noted. continues to have anemia and thrombocytopenia tumor lysis syndrome blood cx- 09/07/2018- neg x 7 trach asp cx- yeast stool c.diff- negative repeat UA- negative repeat urine cx- neg PLan- continue with empiric vanco day #11 keep trough <15. advise to continue IV meropnem for broad spectrum gram negative coverage.day #14 continue with IV diflucan day #13 monitor absolute PMN and if becomes 500 or less needs to be on neutropenic precautions as well. critical care time spent 30 minutes. prognosis poor. d/w childcare administrator .
--- NOTE | 2018-09-22 10:06 | RAD ---
Date of service: 09/22/2018 HISTORY: intubated COMPARISON: 09/21/2018 FINDINGS: LUNGS: Improving left perihilar opacity. New abnormal opacity at right base. This may reflect some dependent pleural fluid or pneumonia. PLEURA: Resolved left pleural effusion. Possible very small right pleural effusion. No pneumothorax. CARDIOVASCULAR: No aortic atherosclerotic calcification present. Normal cardiac size. No pulmonary vascular congestion. OSSEOUS STRUCTURES: No significant abnormalities. VISUALIZED UPPER ABDOMEN: Normal. OTHER FINDINGS: None. IMPRESSION: No active disease.
--- NOTE | 2018-09-22 11:24 | CP.CCUPN ---
CCU Subjective - Physician Review Subjective (Free Text): Sedation with Propofol decreased, able to follow simple command to grasp hands. Still breathing 16 on AC 16, TV 400ml, 50% PEEP 5. Remains on Levophed, dose able to be reduced to 20 mcg. NO Fever spikes overnight; temps mostly 99F, SBPs 90-100s, HR 96, 99% SPO2. Approx 1.5 liter positive fluid balance. Vaginal clots have stopped. OGT draining dark green bilious fluid. Tube feeds off. No other distress noted. ROS: No other pertinent negs or positive on 10+ system review obtainable due to sedation. Other PMSFH: All other Nursing and physician documentation reviewed to date; no new pertinent info noted relevant to current medical problems. EXAM- HEENT: no icterus, pupils equal, 3 mm and reactive, no gaze preference NECK: no visible JVD, supple, carotids equal upstroke bilat/no bruits CHEST: decreased BS bases, no wheezes audible, bloody fluid drained dressing over R breast. Left chest portacath. HEART: regular, distant, tachy S1S2, no murmur audible, no rubs. ABD: soft, ++distention with ascites, no focal tenderness, BS hypoactive, dried necrotic lesion over umbilicus unchanged. Previous paracentesis puncture site still leaking ascitic fluid. EXT: ++ edema LEs, and arms +ulcer posterior R calf worse than L, no calf tenderness or palpable cords, distal pulses intact and symmetrical; still leaking ascitic fluid from previous R lateral paracentesis site several weeks ago. NEURO: withdraws to pain stimuli, + tone SKIN: no rashes LABS: WBC= 2.7 HGB= 7.8 PLTs = 55K Na= 151 K= 3.5 Cl= 113 HCO3= 27 BUN/Cr= 97/1.1 BS= 99 CXR: (my interp)- ETT position OK above loren. Decreased lung volumes bilaterally. Worse Left basilar interstitial changes prominent. IMPRESSION / MAJOR PROBLEMS NOW: 1. Acute hypoxemic Resp Failure, 2 bilat multi-lobar pneumonia 2. Persistent vaginal Bleeding 3. Severe Sepsis with shock, 2 Pneumonia, r/o bacteremia 4. Acute on Chronic disease Anemia 5. h/o DVT- bilat CFV on Feb 5. 6. s/p Paracentesis Feb 5 for 2.5 liters PLAN: 1. No need for any blood products today. Two doses of Tranexamic acid given over the past 2 days may have been successful in attempt to stabilize ongoing bleeding and suspected GI tract bleeding as well. 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 Consider IR eval if patient amenable to embolization. 2. Day # 19 MV support. Consider Gen Surg eval for Trach if family wishes to continue current aggressive care. 3. Checked coags again which remain normal; and no DIC. 4. No signs of bone marrow recovery with WBC and platelet counts. 5. Juan / Vanco / Diflucan, repeat BCs up to Sep 15 negative so far. Repeat Sputum Cx still growing +yeast. 6. Resume tube feeds. Time spent with this patient did not overlap with any other provider's medical or critical care time. Additionally the code selected for the services rendered in this note includes the time spent: talking to the patients family, associated physicians and reviewing hospital data/results not listed here which extended to a total of 30 minutes.
--- NOTE | 2018-09-22 18:11 | CP.PCM.PN ---
Subjective - Date & Time of Evaluation Date of Evaluation: 09/22/18 Time of Evaluation: 15:00 - Subjective Subjective: SEEN ON RENAL F/U IN ICU NO CHANGE IN CLINICAL CONDITION REMAINS INTUBATED ALL PREVIOUS EMR REVIEWED Objective - Vital Signs/Intake and Output Vital Signs (last 24 hours): Temp Pulse Resp BP Pulse Ox 99.3 F 108 H 16 92/64 L 98 09/22/18 16:00 09/22/18 16:00 09/22/18 16:00 09/22/18 16:00 09/22/18 16:00 Intake and Output: 09/22/18 09/22/18 06:59 18:59 Intake Total 1921 566 Output Total 900 Balance 1021 566 - Medications Medications: Current Medications Allopurinol (Zyloprim) 100 mg NG DAILY [facility] Last Admin: 09/22/18 08:35 Dose: Not Given Apixaban (Eliquis) 5 mg PO BID [facility]; Protocol Last Admin: 09/06/18 17:08 Dose: Not Given Furosemide (Lasix) 20 mg PO BID [facility] Last Admin: 09/06/18 17:10 Dose: Not Given Fluconazole (Diflucan Iv 100 Mg/50 Ml Ns) 50 mls @ 50 mls/hr IVPB DAILY [facility]; Protocol Last Admin: 09/22/18 08:32 Dose: 50 mls/hr Meropenem 1 gm/ Sodium (Chloride) 100 mls @ 100 mls/hr IVPB Q8 [facility]; Protocol Last Admin: 09/22/18 16:30 Dose: 100 mls/hr Vancomycin HCl 1 gm/ Sodium (Chloride) 250 mls @ 166.667 mls/hr IVPB Q12 [facility]; Protocol Last Admin: 09/22/18 08:34 Dose: 166.667 mls/hr Norepinephrine Bitartrate 16 (mg/ Dextrose) 266 mls @ 14.96 mls/hr IV .[id number] ONE; Protocol Stop: 09/23/18 09:22 Last Admin: 09/22/18 16:58 Dose: 15 mcg/min, 14.96 mls/hr Metolazone (Zaroxolyn) 5 mg PO DAILY [facility] Last Admin: 09/22/18 08:35 Dose: Not Given Metoprolol Tartrate (Lopressor) 12.5 mg PO Q12 [facility] Last Admin: 09/06/18 21:59 Dose: Not Given Morphine Sulfate (Morphine) 2 mg IVP Q4 PRN PRN Reason: Pain, moderate (4-7) Last Admin: 09/20/18 14:52 Dose: 2 mg Pantoprazole Sodium (Protonix Inj) 40 mg IVP DAILY [facility] Last Admin: 09/22/18 08:46 Dose: 40 mg - Labs Labs: 09/22/18 06:00 09/22/18 06:45 PT 13.3 Seconds (9.8-13.1) H 09/20/18 16:15 INR 1.2 09/20/18 16:15 APTT 26.7 Seconds (25.6-37.1) 09/20/18 16:15 Assessment and Plan - Assessment and Plan (Free Text) Assessment: LOUIE .. MAINLY PRE RENAL HYPERNATREMIA .. NEEDS TO DISSOLVE ALL IV MEDS IN NS COMPATIBLE \ VDRF SEPSIS CA BREAST WITH METS MMP P : DISSOLVE ALL IV MEDS IN NS COMPATIBLE C/O CURRENT CARE
[2018-09-23] MEDS: Meropenem 1 GM in Sodium Chloride 0.9% 100 ML IVPB SCH ×3 (01:18→16:04)
[2018-09-23 04:45] LABS: ABG ALLEN TEST YES; ARTERIAL BLOOD GAS HCO3 27.8 mmol/L (21-28); ARTERIAL BLOOD GAS HEMOGLOBIN 5.7 g/dL (11.7-17.4); ARTERIAL BLOOD GAS O2 CAPACITY 8.1 mL/dL (16-24); ARTERIAL BLOOD GAS PCO2 38 mm/Hg (35-45); ARTERIAL BLOOD GAS PH 7.47 (7.35-7.45); ARTERIAL BLOOD GAS PO2 133 mm/Hg (80-100); ARTERIAL BLOOD GAS TCO2 28.9 mmol/L (22-28)
[2018-09-23 06:40] LABS: HEMOGLOBIN 6.7 g/dL (12.0-16.0); MEAN CELL VOLUME 90.4 fl (81.0-99.0); MEAN CORPUSCULAR HGB CONC 33.2 g/dL (33.0-37.0); RBC 2.22 Mil/uL (3.80-5.20); RED CELL DISTRIBUTION WIDTH 15.1 % (11.5-14.5)
[2018-09-23 06:46] LABS: WHITE BLOOD COUNT 1.8 K/uL (4.8-10.8)
[2018-09-23 06:50] LABS: BLOOD UREA NITROGEN 87 mg/dl (7-17); CALCIUM 8.5 mg/dL (8.4-10.2); GFR NON-AFRICAN AMERICAN 57
[2018-09-23] MEDS: Fluconazole IV 100mg/50 ml NS 50 ML IVPB SCH (08:29)
[2018-09-23] MEDS: metOLazone 5 MG TAB PO SCH (08:38)
[2018-09-23] MEDS ORDERED: Potassium Chloride 20 mEq/15 ml LIQ UD GT ONE (09:07)
--- NOTE | 2018-09-23 09:41 | CP.CCUPN ---
CCU Subjective - Physician Review Subjective (Free Text): Sedation with Propofol stopped and Levophed requirements have lessened, down to 7 mcg dose. Appropriately more awake and responsive, only mildly agitated, but not hyperactive. Still breathing 16 on AC 16, TV 400ml, 50% PEEP 5. Remains on Levophed, dose able to be reduced to 20 mcg. NO Fever spikes overnight; temps mostly 99F, SBPs 90-100s, HR 96, 99% SPO2. Approx 1.5 liter positive fluid balance. OGT draining dark green bilious fluid. Tube feeds off. No other distress noted. ROS: No other pertinent negs or positive on 10+ system review obtainable due to sedation. Other PMSFH: All other Nursing and physician documentation reviewed to date; no new pertinent info noted relevant to current medical problems. EXAM- HEENT: no icterus, pupils equal, 3 mm and reactive, no gaze preference NECK: no visible JVD, supple, carotids equal upstroke bilat/no bruits CHEST: decreased BS bases, no wheezes audible, bloody fluid drained dressing over R breast. Left chest portacath. HEART: regular, distant, tachy S1S2, no murmur audible, no rubs. ABD: soft, ++distention with ascites, no focal tenderness, BS hypoactive, dried necrotic lesion over umbilicus unchanged. Previous paracentesis puncture site still leaking ascitic fluid. EXT: ++ edema LEs, and arms +ulcer posterior R calf worse than L, no calf tenderness or palpable cords, distal pulses intact and symmetrical; still leaking ascitic fluid from previous R lateral paracentesis site several weeks ago. NEURO: withdraws to pain stimuli, + tone SKIN: no rashes LABS: WBC= 1.8 HGB= 6.7 PLTs = 32K Na= 153 K= 3.1 Cl= 117 HCO3= 27 BUN/Cr= 87/1.0 BS= 86 CXR: (my interp)- ETT position OK above loren. Decreased lung volumes bilaterally. Unchanged Left basilar interstitial changes prominent. IMPRESSION / MAJOR PROBLEMS NOW: 1. Acute hypoxemic Resp Failure, 2 bilat multi-lobar pneumonia 2. Persistent vaginal Bleeding 3. Severe Sepsis with shock, 2 Pneumonia, r/o bacteremia 4. Acute on Chronic disease Anemia 5. h/o DVT- bilat CFV on Aug 5. 6. s/p Paracentesis Feb 5 for 2.5 liters PLAN: 1. PRBCs if any hypotension worsens or more hypoxemic. Able to reduce fiO2 to 45% today. 2. Day # 20 MV support. Consider Gen Surg eval for Trach if family wishes to continue current aggressive care. Ascitic abdominal distention is significant, may need repeat paracentesis. 3. Checked coags again which remain normal; and no DIC. 4. No signs of bone marrow recovery with WBC and platelet counts. 5. Juan / Vanco / Diflucan, repeat BCs up to Sep 15 negative so far. Repeat Sputum Cx still growing +yeast. 6. Resume tube feeds. CCU Objective - Physical Exam Psychiatric: Positive for: Other (Sedated and orally intubated)
--- NOTE | 2018-09-23 10:43 | RAD ---
Date of service: 09/23/2018 HISTORY: intubated COMPARISON: Chest radiograph dated 09/22/2018. FINDINGS: LUNGS: Pulmonary vascular congestion. PLEURA: Stable bilateral pleural effusions. No appreciable pneumothorax. CARDIOVASCULAR: No aortic atherosclerotic calcification present. Normal cardiac size. No pulmonary vascular congestion. OSSEOUS STRUCTURES: No significant abnormalities. VISUALIZED UPPER ABDOMEN: Normal. OTHER FINDINGS: Endotracheal and enteric tubes, unchanged. Left internal jugular access chest port, unchanged. IMPRESSION: Stable tubes and lines. Pulmonary vascular congestion/edema with bilateral pleural effusions, unchanged. No significant interval change.
--- NOTE | 2018-09-23 21:32 | CP.PCM.PN ---
Subjective - Date & Time of Evaluation Date of Evaluation: 09/23/18 Time of Evaluation: 21:28 - Subjective Subjective: in icu still intubated on pressors na better 152....<155 k better 3.5....<3.2 creat stable 1.1..1.0 cont slow hydration needs more free water on tube feeds w h2o [id number] Objective - Vital Signs/Intake and Output Vital Signs (last 24 hours): Temp Pulse Resp BP Pulse Ox 100.4 F H 126 H 20 100/70 98 09/23/18 19:00 09/23/18 20:00 09/23/18 20:00 09/23/18 20:00 09/23/18 20:00 Intake and Output: 09/23/18 09/24/18 18:59 06:59 Intake Total 1110 290 Output Total 700 Balance 410 290 - Medications Medications: Current Medications Allopurinol (Zyloprim) 100 mg NG DAILY [facility] Last Admin: 09/23/18 08:38 Dose: Not Given Apixaban (Eliquis) 5 mg PO BID [facility]; Protocol Last Admin: 09/06/18 17:08 Dose: Not Given Furosemide (Lasix) 20 mg PO BID [facility] Last Admin: 09/06/18 17:10 Dose: Not Given Fluconazole (Diflucan Iv 100 Mg/50 Ml Ns) 50 mls @ 50 mls/hr IVPB DAILY [facility]; Protocol Last Admin: 09/23/18 08:29 Dose: 50 mls/hr Meropenem 1 gm/ Sodium (Chloride) 100 mls @ 100 mls/hr IVPB Q8 [facility]; Protocol Last Admin: 09/23/18 16:04 Dose: 100 mls/hr Vancomycin HCl 1 gm/ Sodium (Chloride) 250 mls @ 166.667 mls/hr IVPB Q12 [facility]; Protocol Last Admin: 09/23/18 20:33 Dose: 166.667 mls/hr Dextrose (Dextrose 5% In Water 1000 Ml) 1,000 mls @ 50 mls/hr IV .Q20H [facility] Stop: 09/24/18 05:14 Last Admin: 09/23/18 09:36 Dose: 50 mls/hr Norepinephrine Bitartrate 16 (mg/ Dextrose) 266 mls @ 2.49 mls/hr IV .Q24H ONE Stop: 09/24/18 20:08 Lorazepam (Ativan) 1 mg IVP Q4 PRN PRN Reason: Agitation Last Admin: 09/23/18 16:02 Dose: 1 mg Metolazone (Zaroxolyn) 5 mg PO DAILY [facility] Last Admin: 09/23/18 08:38 Dose: Not Given Metoprolol Tartrate (Lopressor) 12.5 mg PO Q12 [facility] Last Admin: 09/06/18 21:59 Dose: Not Given Morphine Sulfate (Morphine) 2 mg IVP Q4 PRN PRN Reason: Pain, moderate (4-7) Last Admin: 09/20/18 14:52 Dose: 2 mg Pantoprazole Sodium (Protonix Inj) 40 mg IVP DAILY [facility] Last Admin: 09/23/18 08:40 Dose: 40 mg - Labs Labs: 09/23/18 06:30 09/23/18 06:30 PT 13.3 Seconds (9.8-13.1) H 09/20/18 16:15 INR 1.2 09/20/18 16:15 APTT 26.7 Seconds (25.6-37.1) 09/20/18 16:15 - Constitutional Appears: Toxic, Chronically Ill - Head Exam Head Exam: NORMOCEPHALIC - Eye Exam Eye Exam: Normal appearance - ENT Exam ENT Exam: Mucous Membranes Dry - Respiratory Exam Respiratory Exam: NORMAL BREATHING PATTERN - Cardiovascular Exam Cardiovascular Exam: REGULAR RHYTHM - GI/Abdominal Exam GI & Abdominal Exam: Soft - Extremities Exam Extremities Exam: Pedal Edema - Neurological Exam Neurological Exam: Altered - Skin Skin Exam: Dry, Warm Assessment and Plan - Assessment and Plan (Free Text) Plan: free water as ordered
[2018-09-24] MEDS: Meropenem 1 GM in Sodium Chloride 0.9% 100 ML IVPB SCH ×3 (01:45→16:37)
--- NOTE | 2018-09-24 02:13 | CP.PCM.PN ---
Subjective - Date & Time of Evaluation Date of Evaluation: 09/21/18 Time of Evaluation: 18:25 - Subjective Subjective: Seen and examined at the bed side. Patient continue to decline. Anasarca, continue to be intubated and unresponsive. NOK refused DNR/DNI and end of lefe care. Unstable to discharge as patient is on Pressors, and will need G-Tube to send her even to long Acute Care Facility. Patient is MOF, Septic and Cardiogenic shock with Severe Cardiomyopathy, Anemia, Thrombo-cytopenia, Active bleeding, Stage IV Malignancy and extensive rashes. S/P Tracheostomy. Objective - Vital Signs/Intake and Output Vital Signs (last 24 hours): Temp Pulse Resp BP Pulse Ox 99.9 F H 116 H 17 103/63 100 09/24/18 01:00 09/24/18 01:00 09/24/18 01:00 09/24/18 01:00 09/24/18 01:00 Intake and Output: 09/23/18 09/24/18 18:59 06:59 Intake Total 1110 940 Output Total 700 Balance 410 940 - Medications Medications: Current Medications Allopurinol (Zyloprim) 100 mg NG DAILY [facility] Last Admin: 09/23/18 08:38 Dose: Not Given Apixaban (Eliquis) 5 mg PO BID [facility]; Protocol Last Admin: 09/06/18 17:08 Dose: Not Given Furosemide (Lasix) 20 mg PO BID [facility] Last Admin: 09/06/18 17:10 Dose: Not Given Fluconazole (Diflucan Iv 100 Mg/50 Ml Ns) 50 mls @ 50 mls/hr IVPB DAILY [facility]; Protocol Last Admin: 09/23/18 08:29 Dose: 50 mls/hr Meropenem 1 gm/ Sodium (Chloride) 100 mls @ 100 mls/hr IVPB Q8 [facility]; Protocol Last Admin: 09/23/18 16:04 Dose: 100 mls/hr Vancomycin HCl 1 gm/ Sodium (Chloride) 250 mls @ 166.667 mls/hr IVPB Q12 [facility]; Protocol Last Admin: 09/23/18 20:33 Dose: 166.667 mls/hr Dextrose (Dextrose 5% In Water 1000 Ml) 1,000 mls @ 50 mls/hr IV .Q20H [facility] Stop: 09/24/18 05:14 Last Admin: 09/23/18 09:36 Dose: 50 mls/hr Norepinephrine Bitartrate 16 (mg/ Dextrose) 266 mls @ 2.49 mls/hr IV .Q24H ONE Stop: 09/24/18 20:08 Last Admin: 09/23/18 23:53 Dose: 2.49 mls/hr Lorazepam (Ativan) 1 mg IVP Q4 PRN PRN Reason: Agitation Last Admin: 09/23/18 16:02 Dose: 1 mg Metolazone (Zaroxolyn) 5 mg PO DAILY [facility] Last Admin: 09/23/18 08:38 Dose: Not Given Metoprolol Tartrate (Lopressor) 12.5 mg PO Q12 [facility] Last Admin: 09/06/18 21:59 Dose: Not Given Morphine Sulfate (Morphine) 2 mg IVP Q4 PRN PRN Reason: Pain, moderate (4-7) Last Admin: 09/20/18 14:52 Dose: 2 mg Pantoprazole Sodium (Protonix Inj) 40 mg IVP DAILY [facility] Last Admin: 09/23/18 08:40 Dose: 40 mg - Labs Labs: 09/23/18 06:30 09/23/18 06:30 PT 13.3 Seconds (9.8-13.1) H 09/20/18 16:15 INR 1.2 09/20/18 16:15 APTT 26.7 Seconds (25.6-37.1) 09/20/18 16:15 Assessment and Plan (1) Acute respiratory failure with hypoxemia Status: Acute (2) Ascites, malignant Status: Acute (3) Congestive heart failure (CHF) Status: Acute (4) Stage IV breast cancer in female Status: Acute (5) Severe anemia Status: Resolved (6) DVT of lower extremity, bilateral Status: Chronic (7) Thrombocytopenia Status: Resolved
--- NOTE | 2018-09-24 02:14 | CP.PCM.PN ---
Subjective - Date & Time of Evaluation Date of Evaluation: 09/22/18 Time of Evaluation: 17:15 - Subjective Subjective: Seen and examined at the bed side. Patient continue to decline. Anasarca, continue to be intubated and unresponsive. NOK refused DNR/DNI and end of lefe care. Unstable to discharge as patient is on Pressors, and will need G-Tube to send her even to long Acute Care Facility. Patient is MOF, Septic and Cardiogenic shock with Severe Cardiomyopathy, Anemia, Thrombo-cytopenia, Active bleeding, Stage IV Malignancy and extensive rashes. S/P Tracheostomy. Objective - Vital Signs/Intake and Output Vital Signs (last 24 hours): Temp Pulse Resp BP Pulse Ox 99.9 F H 116 H 17 103/63 100 09/24/18 01:00 09/24/18 01:00 09/24/18 01:00 09/24/18 01:00 09/24/18 01:00 Intake and Output: 09/23/18 09/24/18 18:59 06:59 Intake Total 1110 940 Output Total 700 Balance 410 940 - Medications Medications: Current Medications Allopurinol (Zyloprim) 100 mg NG DAILY [facility] Last Admin: 09/23/18 08:38 Dose: Not Given Apixaban (Eliquis) 5 mg PO BID [facility]; Protocol Last Admin: 09/06/18 17:08 Dose: Not Given Furosemide (Lasix) 20 mg PO BID [facility] Last Admin: 09/06/18 17:10 Dose: Not Given Fluconazole (Diflucan Iv 100 Mg/50 Ml Ns) 50 mls @ 50 mls/hr IVPB DAILY [facility]; Protocol Last Admin: 09/23/18 08:29 Dose: 50 mls/hr Meropenem 1 gm/ Sodium (Chloride) 100 mls @ 100 mls/hr IVPB Q8 [facility]; Protocol Last Admin: 09/23/18 16:04 Dose: 100 mls/hr Vancomycin HCl 1 gm/ Sodium (Chloride) 250 mls @ 166.667 mls/hr IVPB Q12 [facility]; Protocol Last Admin: 09/23/18 20:33 Dose: 166.667 mls/hr Dextrose (Dextrose 5% In Water 1000 Ml) 1,000 mls @ 50 mls/hr IV .Q20H [facility] Stop: 09/24/18 05:14 Last Admin: 09/23/18 09:36 Dose: 50 mls/hr Norepinephrine Bitartrate 16 (mg/ Dextrose) 266 mls @ 2.49 mls/hr IV .Q24H ONE Stop: 09/24/18 20:08 Last Admin: 09/23/18 23:53 Dose: 2.49 mls/hr Lorazepam (Ativan) 1 mg IVP Q4 PRN PRN Reason: Agitation Last Admin: 09/23/18 16:02 Dose: 1 mg Metolazone (Zaroxolyn) 5 mg PO DAILY [facility] Last Admin: 09/23/18 08:38 Dose: Not Given Metoprolol Tartrate (Lopressor) 12.5 mg PO Q12 [facility] Last Admin: 09/06/18 21:59 Dose: Not Given Morphine Sulfate (Morphine) 2 mg IVP Q4 PRN PRN Reason: Pain, moderate (4-7) Last Admin: 09/20/18 14:52 Dose: 2 mg Pantoprazole Sodium (Protonix Inj) 40 mg IVP DAILY [facility] Last Admin: 09/23/18 08:40 Dose: 40 mg - Labs Labs: 09/23/18 06:30 09/23/18 06:30 PT 13.3 Seconds (9.8-13.1) H 09/20/18 16:15 INR 1.2 09/20/18 16:15 APTT 26.7 Seconds (25.6-37.1) 09/20/18 16:15 Assessment and Plan (1) Acute respiratory failure with hypoxemia Status: Acute (2) Ascites, malignant Status: Acute (3) Congestive heart failure (CHF) Status: Acute (4) Stage IV breast cancer in female Status: Acute (5) Severe anemia Status: Resolved (6) DVT of lower extremity, bilateral Status: Chronic (7) Thrombocytopenia Status: Resolved - Assessment and Plan (Free Text) Plan: C/w current Care
--- NOTE | 2018-09-24 02:15 | CP.PCM.PN ---
Subjective - Date & Time of Evaluation Date of Evaluation: 09/23/18 Time of Evaluation: 19:35 - Subjective Subjective: Seen and examined at the bed side. Patient continue to decline. Anasarca, continue to be intubated and unresponsive. NOK refused DNR/DNI and end of lefe care. Unstable to discharge as patient is on Pressors, and will need G-Tube to send her even to long Acute Care Facility. Patient is MOF, Septic and Cardiogenic shock with Severe Cardiomyopathy, Anemia, Thrombo-cytopenia, Active bleeding, Stage IV Malignancy and extensive rashes. S /P Tracheostomy. Objective - Vital Signs/Intake and Output Vital Signs (last 24 hours): Temp Pulse Resp BP Pulse Ox 99.9 F H 116 H 17 103/63 100 09/24/18 01:00 09/24/18 01:00 09/24/18 01:00 09/24/18 01:00 09/24/18 01:00 Intake and Output: 09/23/18 09/24/18 18:59 06:59 Intake Total 1110 940 Output Total 700 Balance 410 940 - Medications Medications: Current Medications Allopurinol (Zyloprim) 100 mg NG DAILY [facility] Last Admin: 09/23/18 08:38 Dose: Not Given Apixaban (Eliquis) 5 mg PO BID [facility]; Protocol Last Admin: 09/06/18 17:08 Dose: Not Given Furosemide (Lasix) 20 mg PO BID [facility] Last Admin: 09/06/18 17:10 Dose: Not Given Fluconazole (Diflucan Iv 100 Mg/50 Ml Ns) 50 mls @ 50 mls/hr IVPB DAILY [facility]; Protocol Last Admin: 09/23/18 08:29 Dose: 50 mls/hr Meropenem 1 gm/ Sodium (Chloride) 100 mls @ 100 mls/hr IVPB Q8 [facility]; Protocol Last Admin: 09/23/18 16:04 Dose: 100 mls/hr Vancomycin HCl 1 gm/ Sodium (Chloride) 250 mls @ 166.667 mls/hr IVPB Q12 [facility]; Protocol Last Admin: 09/23/18 20:33 Dose: 166.667 mls/hr Dextrose (Dextrose 5% In Water 1000 Ml) 1,000 mls @ 50 mls/hr IV .Q20H [facility] Stop: 09/24/18 05:14 Last Admin: 09/23/18 09:36 Dose: 50 mls/hr Norepinephrine Bitartrate 16 (mg/ Dextrose) 266 mls @ 2.49 mls/hr IV .Q24H ONE Stop: 09/24/18 20:08 Last Admin: 09/23/18 23:53 Dose: 2.49 mls/hr Lorazepam (Ativan) 1 mg IVP Q4 PRN PRN Reason: Agitation Last Admin: 09/23/18 16:02 Dose: 1 mg Metolazone (Zaroxolyn) 5 mg PO DAILY [facility] Last Admin: 09/23/18 08:38 Dose: Not Given Metoprolol Tartrate (Lopressor) 12.5 mg PO Q12 [facility] Last Admin: 09/06/18 21:59 Dose: Not Given Morphine Sulfate (Morphine) 2 mg IVP Q4 PRN PRN Reason: Pain, moderate (4-7) Last Admin: 09/20/18 14:52 Dose: 2 mg Pantoprazole Sodium (Protonix Inj) 40 mg IVP DAILY [facility] Last Admin: 09/23/18 08:40 Dose: 40 mg - Labs Labs: 09/23/18 06:30 09/23/18 06:30 PT 13.3 Seconds (9.8-13.1) H 09/20/18 16:15 INR 1.2 09/20/18 16:15 APTT 26.7 Seconds (25.6-37.1) 09/20/18 16:15 Assessment and Plan (1) Acute respiratory failure with hypoxemia Status: Acute (2) Ascites, malignant Status: Acute (3) Congestive heart failure (CHF) Status: Acute (4) Stage IV breast cancer in female Status: Acute (5) Severe anemia Status: Resolved (6) DVT of lower extremity, bilateral Status: Chronic (7) Thrombocytopenia Status: Resolved - Assessment and Plan (Free Text) Plan: C/w Current Care
[2018-09-24 05:20] LABS: BASO % 0.5 % (0.0-2.0); EOS % 0.2 % (0.0-4.0); HEMOGLOBIN 7.1 g/dL (12.0-16.0); LYMPH # 0.5 K/uL (1.0-4.3); LYMPH % 25.1 % (20.0-40.0); MEAN CELL VOLUME 91.4 fl (81.0-99.0); MEAN CORPUSCULAR HEMOGLOBIN 30.1 pg (27.0-31.0); MEAN CORPUSCULAR HGB CONC 32.9 g/dL (33.0-37.0); MEAN PLATELET VOLUME 9.9 fl (7.2-11.7); MONO # 0.1 K/uL (0.0-0.8); MONO % 3.4 % (0.0-10.0); NEUT # 1.4 K/uL (1.8-7.0); NEUT % 70.8 % (50.0-75.0); NRBC % 0.5 % (0.0-0.0); RBC 2.35 Mil/uL (3.80-5.20)
[2018-09-24 05:59] LABS: ALB/GLOB RATIO 0.8 (1.0-2.1); ALBUMIN 2.3 g/dL (3.5-5.0); ALT/SGPT 31 U/L (9-52); AST/SGOT 23 U/L (14-36); BLOOD UREA NITROGEN 78 mg/dl (7-17); CALCIUM 8.3 mg/dL (8.4-10.2); GFR NON-AFRICAN AMERICAN 51
[2018-09-24 06:18] LABS: WHITE BLOOD COUNT 1.9 K/uL (4.8-10.8)
--- NOTE | 2018-09-24 07:59 | CP.CCUPN ---
CCU Subjective - Physician Review Subjective (Free Text): Off sedation, on now low dose Levophed at 5 mcg dose, spontaneously shrugs shoulders, opens eyes to pain. Still breathing 16 on AC 16, TV 400ml, 50% PEEP 5. Remains on Levophed, dose able to be reduced to 20 mcg. T max 100.8F overnight; temps mostly 99F, SBPs 90-100s, HR 100s, 99% SPO2. Approx 1.6 liter positive fluid balance. No new bleeding noted. No other distress. ROS: No other pertinent negs or positive on 10+ system review obtainable due to intubation. Other PMSFH: All other Nursing and physician documentation reviewed to date; no new pertinent info noted relevant to current medical problems. EXAM- HEENT: no icterus, pupils equal, 3 mm and reactive, no gaze preference NECK: no visible JVD, supple, carotids equal upstroke bilat/no bruits CHEST: decreased BS bases, no wheezes audible, bloody fluid drained dressing over R breast. Left chest portacath. HEART: regular, distant, tachy S1S2, no murmur audible, no rubs. ABD: soft, ++distention with ascites, no focal tenderness, BS hypoactive, dried necrotic lesion over umbilicus unchanged. Previous paracentesis puncture site still leaking ascitic fluid. EXT: ++ edema LEs, and arms +ulcer posterior R calf worse than L, no calf tenderness or palpable cords, distal pulses intact and symmetrical; still leaking ascitic fluid from previous R lateral paracentesis site several weeks ago. NEURO: withdraws to pain stimuli, + tone SKIN: no rashes LABS: WBC= 1.9 HGB= 7.1 PLTs = 29K Na= 152 K= 3.1 Cl= 117 HCO3= 27 BUN/Cr= 78/1.1 BS= 115 CXR: (my interp)- ETT position OK above loren. Decreased lung volumes bilaterally. Unchanged bi-basilar interstitial changes prominent. IMPRESSION / MAJOR PROBLEMS NOW: 1. Acute hypoxemic Resp Failure, 2 bilat multi-lobar pneumonia 2. Persistent vaginal Bleeding 3. Severe Sepsis with shock, 2 Pneumonia, r/o bacteremia 4. Acute on Chronic disease Anemia 5. h/o DVT- bilat CFV on Feb 5. 6. s/p Paracentesis Feb 5 for 2.5 liters PLAN: 1. Will hold on PRBCs, unless new bleeding, more hypotension or hypoxemia evident. SPO2 maintained at 98% on 45% oxygen. 2. Day # 21 MV support. Consider GenSurg eval for Trach as family wishes to continue current aggressive care. Ascitic abdominal distention is significant, may need repeat paracentesis. 3. Coags checked again which remain normal; and no DIC. 4. No signs of bone marrow recovery with WBC and platelet counts. 5. Juan / Vanco / Diflucan, repeat BCs up to Sep 15 negative so far. Repeat Sputum Cx still growing +yeast. 6. Hypernatremia only slowly improving, will increase free water to Q3H. Will supplement K via IV with D5W.
[2018-09-24] MEDS: Fluconazole IV 100mg/50 ml NS 50 ML IVPB SCH (08:02)
[2018-09-24] MEDS: metOLazone 5 MG TAB PO SCH (08:11)
[2018-09-24] MEDS: Potassium CL 10mEq/100ml 100 ML IVPB SCH ×4 (08:24→14:24)
--- NOTE | 2018-09-24 11:14 | RAD ---
Date of service: 09/24/2018 HISTORY: pt is intubated COMPARISON: Chest radiograph dated 09/23/2018. FINDINGS: LUNGS: Pulmonary vascular congestion. PLEURA: Stable bilateral pleural effusions. No appreciable pneumothorax. CARDIOVASCULAR: Aortic atherosclerotic calcifications. Cardiomediastinal silhouette stably enlarged. OSSEOUS STRUCTURES: Unchanged VISUALIZED UPPER ABDOMEN: Normal. OTHER FINDINGS: Endotracheal and enteric tubes, unchanged. Left internal jugular access chest port, unchanged. IMPRESSION: Stable tubes and lines. Pulmonary vascular congestion/edema with bilateral pleural effusions, unchanged. No significant interval change.
[2018-09-24 14:45] LABS: ABG ALLEN TEST YES; ARTERIAL BLOOD GAS HCO3 29.3 mmol/L (21-28); ARTERIAL BLOOD GAS HEMOGLOBIN 7.2 g/dL (11.7-17.4); ARTERIAL BLOOD GAS O2 CAPACITY 10.1 mL/dL (16-24); ARTERIAL BLOOD GAS O2 SAT 99.1 % (95-98); ARTERIAL BLOOD GAS PCO2 41 mm/Hg (35-45); ARTERIAL BLOOD GAS PH 7.47 (7.35-7.45); ARTERIAL BLOOD GAS PO2 121 mm/Hg (80-100); ARTERIAL BLOOD GAS TCO2 31.1 mmol/L (22-28)
[2018-09-25] MEDS: Meropenem 1 GM in Sodium Chloride 0.9% 100 ML IVPB SCH ×3 (01:50→18:34)
--- NOTE | 2018-09-25 01:51 | CP.PCM.PN ---
Subjective - Date & Time of Evaluation Date of Evaluation: 09/24/18 Time of Evaluation: 19:25 - Subjective Subjective: Seen and examined at the bed side. Patient continue to decline. Anasarca, continue to be intubated and unresponsive. NOK refused DNR/DNI and end of lefe care. Unstable to discharge as patient is on Pressors, and will need G-Tube to send her even to long Acute Care Facility. Patient is MOF, Septic and Cardiogenic shock with Severe Cardiomyopathy, Anemia, Thrombo-cytopenia, Active bleeding, Stage IV Malignancy and extensive rashes. S/P Tracheostomy. Objective - Vital Signs/Intake and Output Vital Signs (last 24 hours): Temp Pulse Resp BP Pulse Ox 100.4 F H 127 H 20 104/84 100 09/25/18 01:00 09/25/18 01:00 09/25/18 01:00 09/25/18 01:00 09/25/18 01:00 Intake and Output: 09/24/18 09/25/18 18:59 06:59 Intake Total 2027.5 410 Output Total 1000 Balance 1027.5 410 - Medications Medications: Current Medications Allopurinol (Zyloprim) 100 mg NG DAILY [facility] Last Admin: 09/24/18 08:11 Dose: 100 mg Apixaban (Eliquis) 5 mg PO BID [facility]; Protocol Last Admin: 09/06/18 17:08 Dose: Not Given Furosemide (Lasix) 20 mg PO BID [facility] Last Admin: 09/06/18 17:10 Dose: Not Given Fluconazole (Diflucan Iv 100 Mg/50 Ml Ns) 50 mls @ 50 mls/hr IVPB DAILY [facility]; Protocol Last Admin: 09/24/18 08:02 Dose: 50 mls/hr Meropenem 1 gm/ Sodium (Chloride) 100 mls @ 100 mls/hr IVPB Q8 [facility]; Protocol Last Admin: 09/24/18 16:37 Dose: 100 mls/hr Vancomycin HCl 1 gm/ Sodium (Chloride) 250 mls @ 166.667 mls/hr IVPB Q12 [facility]; Protocol Last Admin: 09/24/18 20:23 Dose: 166.667 mls/hr Lorazepam (Ativan) 1 mg IVP Q4 PRN PRN Reason: Agitation Last Admin: 09/23/18 16:02 Dose: 1 mg Metolazone (Zaroxolyn) 5 mg PO DAILY [facility] Last Admin: 09/24/18 08:11 Dose: 5 mg Metoprolol Tartrate (Lopressor) 12.5 mg PO Q12 [facility] Last Admin: 09/06/18 21:59 Dose: Not Given Morphine Sulfate (Morphine) 2 mg IVP Q4 PRN PRN Reason: Pain, moderate (4-7) Last Admin: 09/24/18 11:34 Dose: 2 mg Pantoprazole Sodium (Protonix Inj) 40 mg IVP DAILY [facility] Last Admin: 09/24/18 08:05 Dose: 40 mg - Labs Labs: 09/24/18 05:00 09/24/18 05:00 PT 13.3 Seconds (9.8-13.1) H 09/20/18 16:15 INR 1.2 09/20/18 16:15 APTT 26.7 Seconds (25.6-37.1) 09/20/18 16:15 Assessment and Plan (1) Acute respiratory failure with hypoxemia Status: Acute (2) Ascites, malignant Status: Acute (3) Congestive heart failure (CHF) Status: Acute (4) Stage IV breast cancer in female Status: Acute (5) Severe anemia Status: Resolved (6) DVT of lower extremity, bilateral Status: Chronic (7) Thrombocytopenia Status: Resolved - Assessment and Plan (Free Text) Plan: C/w the same care
[2018-09-25 05:00] LABS: ABG ALLEN TEST YES; ARTERIAL BLOOD GAS HCO3 28.8 mmol/L (21-28); ARTERIAL BLOOD GAS HEMOGLOBIN 7.9 g/dL (11.7-17.4); ARTERIAL BLOOD GAS O2 CAPACITY 10.8 mL/dL (16-24); ARTERIAL BLOOD GAS O2 CONTENT 10.8 ML/dL (15-23); ARTERIAL BLOOD GAS O2 SAT 99.6 % (95-98); ARTERIAL BLOOD GAS PCO2 40 mm/Hg (35-45); ARTERIAL BLOOD GAS PH 7.47 (7.35-7.45); ARTERIAL BLOOD GAS PO2 106 mm/Hg (80-100); ARTERIAL BLOOD GAS TCO2 30.3 mmol/L (22-28)
[2018-09-25 05:35] LABS: HEMOGLOBIN 7.2 g/dL (12.0-16.0); MEAN CELL VOLUME 91.9 fl (81.0-99.0); MEAN CORPUSCULAR HEMOGLOBIN 30.1 pg (27.0-31.0); MEAN CORPUSCULAR HGB CONC 32.8 g/dL (33.0-37.0); RBC 2.38 Mil/uL (3.80-5.20); RED CELL DISTRIBUTION WIDTH 15.3 % (11.5-14.5)
[2018-09-25 05:54] LABS: ALB/GLOB RATIO 0.8 (1.0-2.1); ALBUMIN 2.2 g/dL (3.5-5.0); ALT/SGPT 21 U/L (9-52); AST/SGOT 20 U/L (14-36); BLOOD UREA NITROGEN 70 mg/dl (7-17); GFR NON-AFRICAN AMERICAN 57
--- NOTE | 2018-09-25 09:00 | RAD ---
Date of service: 09/25/2018 HISTORY: Ptintubated; daily ETT placement verification COMPARISON: Portable chest 09/24/2018. FINDINGS: LUNGS: Endotracheal tube encroaches the right mainstem bronchus. Advise retraction of the tubing 1-2 cm followed by confirmation chest radiograph. Nasogastric tube not significantly changed in position and stable MediPort noted as well. No pulmonary vascular congestion remains likely, underlying patchy bilateral hilar density is diminished as well as at the right base suggesting improvement.. PLEURA: Bilateral pleural effusions noted. No pneumothorax bilaterally. CARDIOVASCULAR: No aortic atherosclerotic calcification present. Stable cardiac silhouette. Probable diminishing pulmonary vascular congestion. OSSEOUS STRUCTURES: No significant abnormalities. VISUALIZED UPPER ABDOMEN: Normal. OTHER FINDINGS: None. IMPRESSION: Likely improved pulmonary vascular congestion and bilateral airspace disease as discussed above. Small bilateral pleural effusions persist. Endotracheal tube encroaches right mainstem bronchus and retraction 1-2 cm is advised followed by confirmation radiography.
--- NOTE | 2018-09-25 09:12 | CP.CCUPN ---
CCU Subjective - Physician Review Subjective (Free Text): 09/25/18 17:08 The patient was Seen and examined by me at the bedside, Medical records reviewed and Management issues were discussed and formulated with the house staff. Events reviewed Patient is 58 years old female with past medical history of anemia, anxiety, CHF, deep venous thrombosis, peripheral edema, pulmonary embolism and stage IV advanced metastatic breast cancer Status post chemotherapy 2 days ago Who initially presented to the emergency room on 09/03 for evaluation of intermittent chest pain and shortness of breath for the past 2 days In the emergency room patient stated that this chest pain resolved and breathing got better On exam she was comfortable and was admitted to the medical service Transfused 1 unit of packed red blood cell for hemoglobin of 6.9 also of note Patient recently underwent paracentesis 09/04 Patient was transferred to the intensive care unit after [employer] was called for severe respiratory distress and hypoxemia and patient found to be confused and respiratory distress BP was stable but she was tachycardic, tachypneic and saturating 88% on non- rebreathing mask she is to receive a stat dose of IV Lasix and transferred to the intensive care unit Upon admitting to the to the ICU she was emergently intubated by anesthesia and mechanically ventilated Patient self extubated last night and she was in distress and she was reintubated Currently patient is orally intubated, mechanically ventilated and sedated with Diprivan @ 25mcg/kg/min. RASS -2 She looks comfortable and in no distress Improved oxygenation blood pressure is better on Levophed @ 7.5mcg/min. Afebrile, Most recent Blood C/S negative CCU Objective - Vital Signs / Intake & Output Vital Signs (Last 4 hours): Vital Signs Temp Pulse Resp BP Pulse Ox 09/25/18 07:41 100.9 F H 105/57 L 09/25/18 07:00 100.9 F H 120 H 16 104/69 100 09/25/18 06:00 100.8 F H 128 H 20 108/58 L 100 Intake and Output (Last 8hrs): Intake & Output 09/24/18 09/25/18 09/25/18 22:59 06:59 14:59 Intake Total 1030 780 284 Output Total 500 1200 Balance 530 -420 284 Intake: IV 14 Intake, Piggyback 350 100 Tube Feeding 280 280 70 Free Water Flush 400 400 200 Output: Urine 500 1200 Urethral (Orellana) 500 1200 - Physical Exam Head: Positive for: Atraumatic, Normocephalic Pupils: Positive for: PERRL Extroacular Muscles: Positive for: EOMI Conjunctiva: Negative for: Injected, Icteric Ears: Positive for: Normal Mouth: Positive for: Moist Mucous Membranes Nose (Internal): Positive for: Normal Inspection Neck: Positive for: Normal Range of Motion, Trachea Midline. Negative for: Meningeal Signs, MIDLINE TENDERNESS, Paraspinal Tenderness, JVD, Lymphadenopathy, Bruit, Other Respiratory/Chest: Positive for: Good Air Exchange, Rales, Retracting, Rhonchi. Negative for: Respiratory Distress, Accessory Muscle Use, Wheezes, Tachypneic Cardiovascular: Positive for: Regular Rate and Rhythm, Normal S1, S2, Peripheal Pulses Present. Negative for: Murmurs, Irregular Rhythm, Tachycardic, Bradycardic Abdomen: Positive for: Distention, Normal Bowel Sounds. Negative for: Tenderness Breast/Axillary: Positive for: Other (fungating necrotic mass to Right Breast) Upper Extremity: Positive for: Edema, NORMAL PULSES. Negative for: Normal Inspection, Cyanosis Lower Extremity: Positive for: Edema, NORMAL PULSES. Negative for: Normal Inspection Psychiatric: Positive for: Other (Sedated and orally intubated) - Medications Active Medications: Active Medications Generic Name Dose Route Start Last Admin Trade Name Freq PRN Reason Stop Dose Admin Allopurinol 100 mg 09/14/18 09:00 09/24/18 08:11 Zyloprim NG 100 mg DAILY GLADIS Administration Apixaban 5 mg 09/04/18 09:00 09/06/18 17:08 Eliquis PO Not Given BID GLADIS Protocol Furosemide 20 mg 09/04/18 09:00 09/06/18 17:10 Lasix PO Not Given BID GLADIS Fluconazole 50 mls @ 50 mls/hr 09/09/18 11:30 09/24/18 08:02 Diflucan Iv 100 Mg/50 Ml Ns IVPB 50 mls/hr DAILY GLADIS Administration Protocol Meropenem 1 gm/ Sodium 100 mls @ 100 mls/hr 09/18/18 12:45 09/25/18 01:50 Chloride IVPB 100 mls/hr Q8 GLADIS Administration Protocol Vancomycin HCl 1 gm/ Sodium 250 mls @ 166.667 mls/hr 09/20/18 21:00 09/24/18 20:23 Chloride IVPB 166.667 mls/hr Q12 GLADIS Administration Protocol Lorazepam 1 mg 09/23/18 09:06 09/23/18 16:02 Ativan IVP 1 mg Q4 PRN Administration Agitation Metolazone 5 mg 09/16/18 15:45 09/24/18 08:11 Zaroxolyn PO 5 mg DAILY GLADIS Administration Metoprolol Tartrate 12.5 mg 09/03/18 23:45 09/06/18 21:59 Lopressor PO Not Given Q12 GLADIS Morphine Sulfate 2 mg 09/20/18 14:03 09/24/18 11:34 Morphine IVP 2 mg Q4 PRN Administration Pain, moderate (4-7) Pantoprazole Sodium 40 mg 09/19/18 22:00 09/24/18 08:05 Protonix Inj IVP 40 mg DAILY GLADIS Administration - Patient Studies Lab Studies: Microbiology Studies 09/20/18 14:00 Blood Culture - Preliminary Blood-Thru Central Line NO GROWTH AFTER 4 DAYS Lab Studies 09/25/18 09/25/18 09/25/18 Range/Units 04:30 04:30 04:00 WBC 2.0 L* (4.8-10.8) K/uL RBC 2.38 L (3.80-5.20) Mil/uL Hgb 7.2 L (12.0-16.0) g/dL Hct 21.8 L (34.0-47.0) % MCV 91.9 (81.0-99.0) fl MCH 30.1 (27.0-31.0) pg MCHC 32.8 L (33.0-37.0) g/dL RDW 15.3 H (11.5-14.5) % Plt Count 39 L (130-400) K/uL pCO2 40 (35-45) mm/Hg pO2 106 H (80-100) mm/Hg HCO3 28.8 H (21-28) mmol/L ABG pH 7.47 H (7.35-7.45) ABG Total CO2 30.3 H (22-28) mmol/L ABG O2 Saturation 99.6 H (95-98) % ABG O2 Content 10.8 L (15-23) ML/dL ABG Base Excess 5.0 H (-2.0-3.0) mmol/L ABG Hemoglobin 7.9 L (11.7-17.4) g/dL ABG Carboxyhemoglobin 1.7 H (0.5-1.5) % POC ABG HHb (Measured) 0.4 (0.0-5.0) % ABG Methemoglobin 2.3 (0.0-3.0) % ABG O2 Capacity 10.8 L (16-24) mL/dL Frederic Test Yes A-a O2 Difference 165.0 mm/Hg Hgb O2 Saturation 95.6 (95.0-98.0) % Vent Mode A/c Mechanical Rate 16 FiO2 45.0 % Tidal Volume 400 PEEP 5 Sodium 152 H (132-148) mmol/l Potassium 3.1 L (3.6-5.0) MMOL/L Chloride 120 H (98-107) mmol/L Carbon Dioxide 29 (22-30) mmol/L Anion Gap 6 L (10-20) BUN 70 H (7-17) mg/dl Creatinine 1.0 (0.7-1.2) mg/dl Est GFR ( Amer) > 60 Est GFR (Non-Af Amer) 57 Random Glucose 114 H (65-105) mg/dL Calcium 8.0 L (8.4-10.2) mg/dL Total Bilirubin 0.6 (0.2-1.3) mg/dl AST 20 (14-36) U/L ALT 21 (9-52) U/L Alkaline Phosphatase 79 (38-126) U/L Total Protein 5.2 L (6.3-8.2) G/DL Albumin 2.2 L (3.5-5.0) g/dL Globulin 3.0 (2.2-3.9) gm/dL Albumin/Globulin Ratio 0.8 L (1.0-2.1) 09/24/18 Range/Units 04:49 WBC (4.8-10.8) K/uL RBC (3.80-5.20) Mil/uL Hgb (12.0-16.0) g/dL Hct (34.0-47.0) % MCV (81.0-99.0) fl MCH (27.0-31.0) pg MCHC (33.0-37.0) g/dL RDW (11.5-14.5) % Plt Count (130-400) K/uL pCO2 41 (35-45) mm/Hg pO2 121 H (80-100) mm/Hg HCO3 29.3 H (21-28) mmol/L ABG pH 7.47 H (7.35-7.45) ABG Total CO2 31.1 H (22-28) mmol/L ABG O2 Saturation 99.1 H (95-98) % ABG O2 Content 10.0 L (15-23) ML/dL ABG Base Excess 5.6 H (-2.0-3.0) mmol/L ABG Hemoglobin 7.2 L (11.7-17.4) g/dL ABG Carboxyhemoglobin 1.6 H (0.5-1.5) % POC ABG HHb (Measured) 0.9 (0.0-5.0) % ABG Methemoglobin 1.6 (0.0-3.0) % ABG O2 Capacity 10.1 L (16-24) mL/dL Frederic Test Yes A-a O2 Difference 149.0 mm/Hg Hgb O2 Saturation 95.9 (95.0-98.0) % Vent Mode A/c Mechanical Rate 16 FiO2 45.0 % Tidal Volume 400 PEEP 5 Sodium (132-148) mmol/l Potassium (3.6-5.0) MMOL/L Chloride (98-107) mmol/L Carbon Dioxide (22-30) mmol/L Anion Gap (10-20) BUN (7-17) mg/dl Creatinine (0.7-1.2) mg/dl Est GFR ( Amer) Est GFR (Non-Af Amer) Random Glucose (65-105) mg/dL Calcium (8.4-10.2) mg/dL Total Bilirubin (0.2-1.3) mg/dl AST (14-36) U/L ALT (9-52) U/L Alkaline Phosphatase (38-126) U/L Total Protein (6.3-8.2) G/DL Albumin (3.5-5.0) g/dL Globulin (2.2-3.9) gm/dL Albumin/Globulin Ratio (1.0-2.1) Laboratory Results - last 24 hr 0309/25/18 09/25/18 04:49 04:00 04:30 WBC 2.0 L* RBC 2.38 L Hgb 7.2 L Hct 21.8 L MCV 91.9 MCH 30.1 MCHC 32.8 L RDW 15.3 H Plt Count 39 L pCO2 41 40 pO2 121 H 106 H HCO3 29.3 H 28.8 H ABG pH 7.47 H 7.47 H ABG Total CO2 31.1 H 30.3 H ABG O2 Saturation 99.1 H 99.6 H ABG O2 Content 10.0 L 10.8 L ABG Base Excess 5.6 H 5.0 H ABG Hemoglobin 7.2 L 7.9 L ABG Carboxyhemoglobin 1.6 H 1.7 H POC ABG HHb (Measured) 0.9 0.4 ABG Methemoglobin 1.6 2.3 ABG O2 Capacity 10.1 L 10.8 L Frederic Test Yes Yes A-a O2 Difference 149.0 165.0 Hgb O2 Saturation 95.9 95.6 Vent Mode A/c A/c Mechanical Rate 16 16 FiO2 45.0 45.0 Tidal Volume 400 400 PEEP 5 5 Sodium Potassium Chloride Carbon Dioxide Anion Gap BUN Creatinine Est GFR ( Amer) Est GFR (Non-Af Amer) Random Glucose Calcium Total Bilirubin AST ALT Alkaline Phosphatase Total Protein Albumin Globulin Albumin/Globulin Ratio 09/25/18 04:30 WBC RBC Hgb Hct MCV MCH MCHC RDW Plt Count pCO2 pO2 HCO3 ABG pH ABG Total CO2 ABG O2 Saturation ABG O2 Content ABG Base Excess ABG Hemoglobin ABG Carboxyhemoglobin POC ABG HHb (Measured) ABG Methemoglobin ABG O2 Capacity Frederic Test A-a O2 Difference Hgb O2 Saturation Vent Mode Mechanical Rate FiO2 Tidal Volume PEEP Sodium 152 H Potassium 3.1 L Chloride 120 H Carbon Dioxide 29 Anion Gap 6 L BUN 70 H Creatinine 1.0 Est GFR ( Amer) > 60 Est GFR (Non-Af Amer) 57 Random Glucose 114 H Calcium 8.0 L Total Bilirubin 0.6 AST 20 ALT 21 Alkaline Phosphatase 79 Total Protein 5.2 L Albumin 2.2 L Globulin 3.0 Albumin/Globulin Ratio 0.8 L Radiology Impressions: Radiology Impressions Chest X-Ray 09/24/18 04:00 IMPRESSION: Stable tubes and lines. Pulmonary vascular congestion/edema with bilateral pleural effusions, unchanged. No significant interval change. Chest X-Ray 09/25/18 04:00 IMPRESSION: Likely improved pulmonary vascular congestion and bilateral airspace disease as discussed above. Small bilateral pleural effusions persist. Endotracheal tube encroaches right mainstem bronchus and retraction 1-2 cm is advised followed by confirmation radiography. Assessment/Plan (1) Congestive heart failure (CHF) Current Visit: Yes Status: Acute Priority: High Comment: Intubated for hypoxemic respiratory failure strict I&O, Maintian negative fluid balance Continue diuresis as blood pressure permits She is not a candidate for spontaneous breathing since she is not clinically stable and very poor mental status (2) Anemia Current Visit: Yes Status: Acute Priority: High Comment: Anemia is likely multifactorial from chronic disease and malignancy No signs of active bleeding at that time Transfuse as needed Hematology oncology consult appreciated (3) DVT of lower extremity, bilateral Current Visit: Yes Status: Acute Priority: High Comment: Patient with H/O provoked DVT and Pulmonary embolism Continue Apixaban (Eliquis) if okay for ohematology (4) Ascites Current Visit: No Status: Acute (5) Elevated brain natriuretic peptide (BNP) level Current Visit: No Status: Acute Priority: High (6) Pulmonary embolism on left Current Visit: No Status: Acute (7) S/P thoracentesis Current Visit: No Status: Acute (8) Breast CA Current Visit: Yes Status: Acute Priority: High
[2018-09-25] MEDS: Fluconazole IV 100mg/50 ml NS 50 ML IVPB SCH (09:26)
--- NOTE | 2018-09-25 10:38 | CP.PCM.PN ---
Subjective - Date & Time of Evaluation Date of Evaluation: 09/25/18 Time of Evaluation: 10:38 - Subjective Subjective: ID Note- Patient seen and examined in ICU today. Pt. remains intubated. she does open her eyes when her name is called and some simple commands . as per nurse no sacral decub and her hardwick was changed the other day and no diarrhea. Objective - Vital Signs/Intake and Output Vital Signs (last 24 hours): Temp Pulse Resp BP Pulse Ox 101.4 F H 125 H 20 102/54 L 100 09/25/18 09:49 09/25/18 09:49 09/25/18 09:49 09/25/18 09:49 09/25/18 09:49 Intake and Output: 09/25/18 09/25/18 06:59 18:59 Intake Total 1370 818 Output Total 1200 Balance 170 818 - Medications Medications: Current Medications Allopurinol (Zyloprim) 100 mg NG DAILY GLADIS Last Admin: 09/24/18 08:11 Dose: 100 mg Apixaban (Eliquis) 5 mg PO BID GLADIS; Protocol Last Admin: 09/06/18 17:08 Dose: Not Given Furosemide (Lasix) 20 mg PO BID GLADIS Last Admin: 09/06/18 17:10 Dose: Not Given Fluconazole (Diflucan Iv 100 Mg/50 Ml Ns) 50 mls @ 50 mls/hr IVPB DAILY GLADIS; Protocol Last Admin: 09/25/18 09:26 Dose: 50 mls/hr Meropenem 1 gm/ Sodium (Chloride) 100 mls @ 100 mls/hr IVPB Q8 GLADIS; Protocol Last Admin: 09/25/18 09:27 Dose: 100 mls/hr Vancomycin HCl 1 gm/ Sodium (Chloride) 250 mls @ 166.667 mls/hr IVPB Q12 GLADIS; Protocol Last Admin: 09/25/18 09:29 Dose: 166.667 mls/hr Lorazepam (Ativan) 1 mg IVP Q4 PRN PRN Reason: Agitation Last Admin: 09/23/18 16:02 Dose: 1 mg Metolazone (Zaroxolyn) 5 mg PO DAILY GLADIS Last Admin: 09/24/18 08:11 Dose: 5 mg Metoprolol Tartrate (Lopressor) 12.5 mg PO Q12 GLADIS Last Admin: 09/06/18 21:59 Dose: Not Given Morphine Sulfate (Morphine) 2 mg IVP Q4 PRN PRN Reason: Pain, moderate (4-7) Last Admin: 09/24/18 11:34 Dose: 2 mg Pantoprazole Sodium (Protonix Inj) 40 mg IVP DAILY GLADIS Last Admin: 09/25/18 09:28 Dose: 40 mg - Labs Labs: - Additional Findings Additional findings: - Constitutional Appears: Chronically Ill Additional comments: intubated but awake - Eye Exam Eye Exam: PERRL - ENT Exam Additional comments: ET and OGT in place - Neck Exam Additional comments: supple - Respiratory Exam Additional comments: On the vent - Cardiovascular Exam Cardiovascular Exam: Tachycardia, +S1, +S2 - GI/Abdominal Exam Additional comments: distended, soft hypoactive BS umbilical region with mass like lesion with denuded skin , no pus, bloody discharge scant only - Extremities Exam Additional comments: b/l 1+ edema in LE and left hand edema - Neurological Exam Additional comments: more alert and responds to some commands and opens her eyes when her name is called - Skin Additional comments: right breast entirely covered with fungating looking round erythematous lesions few have opened up and bleeding superfically - Additional Findings Additional findings: lines- ET and OG tube left chest mediport site clean, no erythema hardwick cath- draining dark urine less bloody rectal tube with brown liquid stool Laboratory Results - last 72 hr 09/23/18 09/23/18 09/23/18 04:28 06:30 06:30 WBC 1.8 L* RBC 2.22 L Hgb 6.7 L Hct 20.1 L MCV 90.4 MCH 30.0 MCHC 33.2 RDW 15.1 H Plt Count 32 L D MPV Neut % (Auto) Lymph % (Auto) Ramsey % (Auto) Eos % (Auto) Baso % (Auto) Neut # (Auto) Lymph # (Auto) Ramsey # (Auto) Eos # (Auto) Baso # (Auto) pCO2 38 pO2 133 H HCO3 27.8 ABG pH 7.47 H ABG Total CO2 28.9 H ABG O2 Saturation 99.0 H ABG O2 Content 8.0 L ABG Base Excess 3.7 H ABG Hemoglobin 5.7 L ABG Carboxyhemoglobin 1.9 H POC ABG HHb (Measured) 1.0 ABG Methemoglobin 1.5 ABG O2 Capacity 8.1 L Frederic Test Yes A-a O2 Difference 176.0 Hgb O2 Saturation 95.7 Vent Mode A/c Mechanical Rate 16 FiO2 50.0 Tidal Volume 400 PEEP 5 Crit Value Called To Dr jhoana wilkins Crit Value Called By [employer]aco Crit Value Read Back Y Blood Gas Notified Time 445 Sodium 153 H Potassium 3.1 L Chloride 117 H Carbon Dioxide 27 Anion Gap 12 BUN 87 H Creatinine 1.0 Est GFR ( Amer) > 60 Est GFR (Non-Af Amer) 57 Random Glucose 86 Calcium 8.5 Phosphorus Magnesium Total Bilirubin AST ALT Alkaline Phosphatase Total Protein Albumin Globulin Albumin/Globulin Ratio Vancomycin Trough 09/24/18 09/24/18 09/24/18 04:49 05:00 05:00 WBC 1.9 L* RBC 2.35 L Hgb 7.1 L Hct 21.5 L MCV 91.4 MCH 30.1 MCHC 32.9 L RDW 15.0 H Plt Count 29 L* MPV 9.9 Neut % (Auto) 70.8 Lymph % (Auto) 25.1 Ramsey % (Auto) 3.4 Eos % (Auto) 0.2 Baso % (Auto) 0.5 Neut # (Auto) 1.4 L Lymph # (Auto) 0.5 L Ramsey # (Auto) 0.1 Eos # (Auto) 0.0 Baso # (Auto) 0.0 pCO2 41 pO2 121 H HCO3 29.3 H ABG pH 7.47 H ABG Total CO2 31.1 H ABG O2 Saturation 99.1 H ABG O2 Content 10.0 L ABG Base Excess 5.6 H ABG Hemoglobin 7.2 L ABG Carboxyhemoglobin 1.6 H POC ABG HHb (Measured) 0.9 ABG Methemoglobin 1.6 ABG O2 Capacity 10.1 L Frederic Test Yes A-a O2 Difference 149.0 Hgb O2 Saturation 95.9 Vent Mode A/c Mechanical Rate 16 FiO2 45.0 Tidal Volume 400 PEEP 5 Crit Value Called To Crit Value Called By Crit Value Read Back Blood Gas Notified Time Sodium 152 H Potassium 3.1 L Chloride 117 H Carbon Dioxide 27 Anion Gap 11 BUN 78 H Creatinine 1.1 Est GFR ( Amer) > 60 Est GFR (Non-Af Amer) 51 Random Glucose 115 H Calcium 8.3 L Phosphorus 4.1 Magnesium 2.0 Total Bilirubin 0.8 AST 23 ALT 31 Alkaline Phosphatase 83 Total Protein 5.2 L Albumin 2.3 L Globulin 2.9 Albumin/Globulin Ratio 0.8 L Vancomycin Trough 09/25/18 09/25/18 09/25/18 04:00 04:30 04:30 WBC 2.0 L* RBC 2.38 L Hgb 7.2 L Hct 21.8 L MCV 91.9 MCH 30.1 MCHC 32.8 L RDW 15.3 H Plt Count 39 L MPV Neut % (Auto) Lymph % (Auto) Ramsey % (Auto) Eos % (Auto) Baso % (Auto) Neut # (Auto) Lymph # (Auto) Ramsey # (Auto) Eos # (Auto) Baso # (Auto) pCO2 40 pO2 106 H HCO3 28.8 H ABG pH 7.47 H ABG Total CO2 30.3 H ABG O2 Saturation 99.6 H ABG O2 Content 10.8 L ABG Base Excess 5.0 H ABG Hemoglobin 7.9 L ABG Carboxyhemoglobin 1.7 H POC ABG HHb (Measured) 0.4 ABG Methemoglobin 2.3 ABG O2 Capacity 10.8 L Frederic Test Yes A-a O2 Difference 165.0 Hgb O2 Saturation 95.6 Vent Mode A/c Mechanical Rate 16 FiO2 45.0 Tidal Volume 400 PEEP 5 Crit Value Called To Crit Value Called By Crit Value Read Back Blood Gas Notified Time Sodium 152 H Potassium 3.1 L Chloride 120 H Carbon Dioxide 29 Anion Gap 6 L BUN 70 H Creatinine 1.0 Est GFR ( Amer) > 60 Est GFR (Non-Af Amer) 57 Random Glucose 114 H Calcium 8.0 L Phosphorus Magnesium Total Bilirubin 0.6 AST 20 ALT 21 Alkaline Phosphatase 79 Total Protein 5.2 L Albumin 2.2 L Globulin 3.0 Albumin/Globulin Ratio 0.8 L Vancomycin Trough 09/25/18 08:50 WBC RBC Hgb Hct MCV MCH MCHC RDW Plt Count MPV Neut % (Auto) Lymph % (Auto) Ramsey % (Auto) Eos % (Auto) Baso % (Auto) Neut # (Auto) Lymph # (Auto) Ramsey # (Auto) Eos # (Auto) Baso # (Auto) pCO2 pO2 HCO3 ABG pH ABG Total CO2 ABG O2 Saturation ABG O2 Content ABG Base Excess ABG Hemoglobin ABG Carboxyhemoglobin POC ABG HHb (Measured) ABG Methemoglobin ABG O2 Capacity Frederic Test A-a O2 Difference Hgb O2 Saturation Vent Mode Mechanical Rate FiO2 Tidal Volume PEEP Crit Value Called To Crit Value Called By Crit Value Read Back Blood Gas Notified Time Sodium Potassium Chloride Carbon Dioxide Anion Gap BUN Creatinine Est GFR ( Amer) Est GFR (Non-Af Amer) Random Glucose Calcium Phosphorus Magnesium Total Bilirubin AST ALT Alkaline Phosphatase Total Protein Albumin Globulin Albumin/Globulin Ratio Vancomycin Trough 39.6 H Microbiology 09/20/18 14:00 Blood-Thru Central Line Blood Culture - Preliminary NO GROWTH AFTER 4 DAYS 09/20/18 17:53 Trachasp Gram Stain - Final 09/20/18 17:53 Trachasp Sputum Culture - Final Yeast Species 09/20/18 17:53 Urine,Hardwick Urine Culture - Final No Growth (<1,000 CFU/ML) 09/15/18 15:35 Blood-Thru Central Line Blood Culture - Final NO GROWTH AFTER 5 DAYS 09/15/18 15:35 Blood-Thru Central Line Gram Stain - Final TEST NOT PERFORMED 09/15/18 15:25 Blood-Thru Central Line Blood Culture - Final NO GROWTH AFTER 5 DAYS 09/15/18 15:25 Blood-Thru Central Line Gram Stain - Final TEST NOT PERFORMED 09/08/18 11:49 Blood-Venous Blood Culture - Final NO GROWTH AFTER 5 DAYS 09/08/18 11:49 Blood-Venous Gram Stain - Final TEST NOT PERFORMED 09/08/18 11:49 Blood-Venous Blood Culture - Final NO GROWTH AFTER 5 DAYS 09/08/18 11:49 Blood-Venous Gram Stain - Final TEST NOT PERFORMED 09/07/18 Unknown Blood-Thru Central Line Blood Culture - Final NO GROWTH AFTER 5 DAYS 09/07/18 Unknown Blood-Thru Central Line Gram Stain - Final TEST NOT PERFORMED 09/07/18 Unknown Blood-Thru Central Line Blood Culture - Final NO GROWTH AFTER 5 DAYS 09/07/18 Unknown Blood-Thru Central Line Gram Stain - Final TEST NOT PERFORMED 09/07/18 09:07 Trachasp Gram Stain - Final 09/07/18 09:07 Trachasp Sputum Culture - Final Yeast Species 09/04/18 11:25 Naris MRSA Culture (Admit) - Final MRSA NOT DETECTED Accession No. : [id number] Patient Name / ID : RYLEE ONEIL / [id number] Exam Date : 09/25/2018 04:31:43 ( Approved ) Study Comment : Sex / Age : F / 58Y Creator : Syed Avalos MD Dictator : Syed Avalos MD Snow Removal/Plowing : Management Tech : Syed Avalos MD Approver2 : Report Date : 09/25/2018 08:55:10 My Comment : Date of service: 09/25/2018 HISTORY: Ptintubated; daily ETT placement verification COMPARISON: Portable chest 09/24/2018. FINDINGS: LUNGS: Endotracheal tube encroaches the right mainstem bronchus. Advise retraction of the tubing 1-2 cm followed by confirmation chest radiograph. Nasogastric tube not significantly changed in position and stable MediPort noted as well. No pulmonary vascular congestion remains likely, underlying patchy bilateral h ilar density is diminished as well as at the right base suggesting improvement.. PLEURA: Bilateral pleural effusions noted. No pneumothorax bilaterally. CARDIOVASCULAR: No aortic atherosclerotic calcification present. Stable cardiac silhouette. Probable diminishing pulmonary vascular congestion. OSSEOUS STRUCTURES: No significant abnormalities. VISUALIZED UPPER ABDOMEN: Normal. OTHER FINDINGS: None. IMPRESSION: Likely improved pulmonary vascular congestion and bilateral airspace disease as discussed above. Small bilateral pleural effusions persist. Endotracheal tube encroaches right mainstem bronchus and retraction 1-2 cm is advised followed by confirmation radiography. 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 remains intubated opens her eyes when name is called. lethargic continues to have low grade fevers past few days despite antibiotics and antifungals and repeat cx have all been neg except some yeast in trach asp cx fevers could be secondary to tumor burden and the metastatic malignancy states CXR report noted. continues to have anemia and thrombocytopenia tumor lysis syndrome blood cx- 09/07/2018- neg x 7 trach asp cx- yeast stool c.diff- negative repeat UA- negative repeat urine cx- neg PLan- check 2 more blood cx. continue with empiric vanco day #13, however , hold it today as trough was high. keep trough <15. advise to continue IV meropnem for broad spectrum gram negative coverage.day #16 continue with IV diflucan day #15 monitor absolute PMN and if becomes 500 or less needs to be on neutropenic precautions as well. critical care time spent 30 minutes. prognosis poor.
[2018-09-25] MEDS: metOLazone 5 MG TAB PO SCH (14:33)
--- NOTE | 2018-09-25 22:35 | CP.PCM.PN ---
Subjective - Date & Time of Evaluation Date of Evaluation: 09/22/18 Time of Evaluation: 19:00 - Subjective Subjective: Vented. Objective - Vital Signs/Intake and Output Vital Signs (last 24 hours): Temp Pulse Resp BP Pulse Ox 97.5 F L 115 H 16 103/57 L 100 09/25/18 17:00 09/25/18 18:00 09/25/18 18:00 09/25/18 18:00 09/25/18 18:00 Intake and Output: 09/25/18 09/26/18 18:59 06:59 Intake Total 1326 70 Balance 1326 70 - Medications Medications: Current Medications Allopurinol (Zyloprim) 100 mg NG DAILY [facility] Last Admin: 09/25/18 14:33 Dose: 100 mg Apixaban (Eliquis) 5 mg PO BID [facility]; Protocol Last Admin: 09/06/18 17:08 Dose: Not Given Furosemide (Lasix) 20 mg PO BID [facility] Last Admin: 09/06/18 17:10 Dose: Not Given Fluconazole (Diflucan Iv 100 Mg/50 Ml Ns) 50 mls @ 50 mls/hr IVPB DAILY [facility]; Protocol Last Admin: 09/25/18 09:26 Dose: 50 mls/hr Meropenem 1 gm/ Sodium (Chloride) 100 mls @ 100 mls/hr IVPB Q8 [facility]; Protocol Last Admin: 09/25/18 18:34 Dose: 100 mls/hr Lorazepam (Ativan) 1 mg IVP Q4 PRN PRN Reason: Agitation Last Admin: 09/23/18 16:02 Dose: 1 mg Metolazone (Zaroxolyn) 5 mg PO DAILY [facility] Last Admin: 09/25/18 14:33 Dose: 5 mg Metoprolol Tartrate (Lopressor) 12.5 mg PO Q12 [facility] Last Admin: 09/06/18 21:59 Dose: Not Given Morphine Sulfate (Morphine) 2 mg IVP Q4 PRN PRN Reason: Pain, moderate (4-7) Last Admin: 09/25/18 20:28 Dose: 2 mg Pantoprazole Sodium (Protonix Inj) 40 mg IVP DAILY [facility] Last Admin: 09/25/18 09:28 Dose: 40 mg - Labs Labs: 09/25/18 04:30 09/25/18 04:30 PT 13.3 Seconds (9.8-13.1) H 09/20/18 16:15 INR 1.2 09/20/18 16:15 APTT 26.7 Seconds (25.6-37.1) 09/20/18 16:15 - Head Exam Head Exam: ATRAUMATIC - Eye Exam Eye Exam: Normal appearance - ENT Exam ENT Exam: Mucous Membranes Dry - Respiratory Exam Respiratory Exam: Decreased Breath Sounds - Cardiovascular Exam Cardiovascular Exam: +S1, +S2 - GI/Abdominal Exam GI & Abdominal Exam: Normal Bowel Sounds - Extremities Exam Extremities Exam: Pedal Edema Assessment and Plan (1) Pancytopenia Assessment & Plan: chemotherapy chronic disease transfusion support PRN Status: Acute (2) Pulmonary embolism Assessment & Plan: unable to anticoagulate due to bleeding Status: Acute (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
--- NOTE | 2018-09-25 22:45 | CP.PCM.PN ---
Subjective - Date & Time of Evaluation Date of Evaluation: 09/23/18 Time of Evaluation: 16:00 - Subjective Subjective: Vented, mother at bedside. Objective - Vital Signs/Intake and Output Vital Signs (last 24 hours): Temp Pulse Resp BP Pulse Ox 97.5 F L 115 H 16 103/57 L 100 09/25/18 17:00 09/25/18 18:00 09/25/18 18:00 09/25/18 18:00 09/25/18 18:00 Intake and Output: 09/25/18 09/26/18 18:59 06:59 Intake Total 1326 70 Balance 1326 70 - Medications Medications: Current Medications Allopurinol (Zyloprim) 100 mg NG DAILY [facility] Last Admin: 09/25/18 14:33 Dose: 100 mg Apixaban (Eliquis) 5 mg PO BID [facility]; Protocol Last Admin: 09/06/18 17:08 Dose: Not Given Furosemide (Lasix) 20 mg PO BID [facility] Last Admin: 09/06/18 17:10 Dose: Not Given Fluconazole (Diflucan Iv 100 Mg/50 Ml Ns) 50 mls @ 50 mls/hr IVPB DAILY [facility]; Protocol Last Admin: 09/25/18 09:26 Dose: 50 mls/hr Meropenem 1 gm/ Sodium (Chloride) 100 mls @ 100 mls/hr IVPB Q8 [facility]; Protocol Last Admin: 09/25/18 18:34 Dose: 100 mls/hr Lorazepam (Ativan) 1 mg IVP Q4 PRN PRN Reason: Agitation Last Admin: 09/23/18 16:02 Dose: 1 mg Metolazone (Zaroxolyn) 5 mg PO DAILY [facility] Last Admin: 09/25/18 14:33 Dose: 5 mg Metoprolol Tartrate (Lopressor) 12.5 mg PO Q12 [facility] Last Admin: 09/06/18 21:59 Dose: Not Given Morphine Sulfate (Morphine) 2 mg IVP Q4 PRN PRN Reason: Pain, moderate (4-7) Last Admin: 09/25/18 20:28 Dose: 2 mg Pantoprazole Sodium (Protonix Inj) 40 mg IVP DAILY [facility] Last Admin: 09/25/18 09:28 Dose: 40 mg - Labs Labs: 09/25/18 04:30 09/25/18 04:30 PT 13.3 Seconds (9.8-13.1) H 09/20/18 16:15 INR 1.2 09/20/18 16:15 APTT 26.7 Seconds (25.6-37.1) 09/20/18 16:15 - Head Exam Head Exam: ATRAUMATIC - Eye Exam Eye Exam: Normal appearance - ENT Exam ENT Exam: Mucous Membranes Dry - Respiratory Exam Respiratory Exam: Decreased Breath Sounds - Cardiovascular Exam Cardiovascular Exam: +S1, +S2 - GI/Abdominal Exam GI & Abdominal Exam: Normal Bowel Sounds - Extremities Exam Extremities Exam: Pedal Edema Assessment and Plan (1) Pancytopenia Assessment & Plan: chemotherapy chronic disease transfusion support PRN Status: Acute (2) Pulmonary embolism Assessment & Plan: unable to anticoagulate due to bleeding Status: Acute (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
--- NOTE | 2018-09-25 22:55 | CP.PCM.PN ---
Subjective - Date & Time of Evaluation Date of Evaluation: 09/25/18 Time of Evaluation: 20:00 - Subjective Subjective: Vented Objective - Vital Signs/Intake and Output Vital Signs (last 24 hours): Temp Pulse Resp BP Pulse Ox 97.5 F L 115 H 16 103/57 L 100 09/25/18 17:00 09/25/18 18:00 09/25/18 18:00 09/25/18 18:00 09/25/18 18:00 Intake and Output: 09/25/18 09/26/18 18:59 06:59 Intake Total 1326 70 Balance 1326 70 - Medications Medications: Current Medications Allopurinol (Zyloprim) 100 mg NG DAILY [facility] Last Admin: 09/25/18 14:33 Dose: 100 mg Apixaban (Eliquis) 5 mg PO BID [facility]; Protocol Last Admin: 09/06/18 17:08 Dose: Not Given Furosemide (Lasix) 20 mg PO BID [facility] Last Admin: 09/06/18 17:10 Dose: Not Given Fluconazole (Diflucan Iv 100 Mg/50 Ml Ns) 50 mls @ 50 mls/hr IVPB DAILY [facility]; Protocol Last Admin: 09/25/18 09:26 Dose: 50 mls/hr Meropenem 1 gm/ Sodium (Chloride) 100 mls @ 100 mls/hr IVPB Q8 [facility]; Protocol Last Admin: 09/25/18 18:34 Dose: 100 mls/hr Lorazepam (Ativan) 1 mg IVP Q4 PRN PRN Reason: Agitation Last Admin: 09/23/18 16:02 Dose: 1 mg Metolazone (Zaroxolyn) 5 mg PO DAILY [facility] Last Admin: 09/25/18 14:33 Dose: 5 mg Metoprolol Tartrate (Lopressor) 12.5 mg PO Q12 [facility] Last Admin: 09/06/18 21:59 Dose: Not Given Morphine Sulfate (Morphine) 2 mg IVP Q4 PRN PRN Reason: Pain, moderate (4-7) Last Admin: 09/25/18 20:28 Dose: 2 mg Pantoprazole Sodium (Protonix Inj) 40 mg IVP DAILY [facility] Last Admin: 09/25/18 09:28 Dose: 40 mg - Labs Labs: 09/25/18 04:30 09/25/18 04:30 PT 13.3 Seconds (9.8-13.1) H 09/20/18 16:15 INR 1.2 09/20/18 16:15 APTT 26.7 Seconds (25.6-37.1) 09/20/18 16:15 - Head Exam Head Exam: ATRAUMATIC - Eye Exam Eye Exam: Normal appearance - ENT Exam ENT Exam: Mucous Membranes Dry - Respiratory Exam Respiratory Exam: Decreased Breath Sounds - Cardiovascular Exam Cardiovascular Exam: +S1, +S2 - GI/Abdominal Exam GI & Abdominal Exam: Normal Bowel Sounds Assessment and Plan (1) Pancytopenia Assessment & Plan: chemotherapy chronic disease plt improved transfusion support PRN Status: Acute (2) Pulmonary embolism Assessment & Plan: unable to anticoagulate due to bleeding Status: Acute (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
[2018-09-26] MEDS: Meropenem 1 GM in Sodium Chloride 0.9% 100 ML IVPB SCH ×3 (01:00→16:53)
[2018-09-26 05:45] LABS: HEMOGLOBIN 6.9 g/dL (12.0-16.0); MEAN CELL VOLUME 91.5 fl (81.0-99.0); MEAN CORPUSCULAR HEMOGLOBIN 30.3 pg (27.0-31.0); MEAN CORPUSCULAR HGB CONC 33.1 g/dL (33.0-37.0); RBC 2.28 Mil/uL (3.80-5.20); RED CELL DISTRIBUTION WIDTH 15.4 % (11.5-14.5); WHITE BLOOD COUNT 2.1 K/uL (4.8-10.8)
[2018-09-26 05:49] LABS: ABG ALLEN TEST YES; ARTERIAL BLOOD GAS HCO3 28.8 mmol/L (21-28); ARTERIAL BLOOD GAS HEMOGLOBIN 7.3 g/dL (11.7-17.4); ARTERIAL BLOOD GAS O2 CONTENT 10.1 ML/dL (15-23); ARTERIAL BLOOD GAS O2 SAT 100.7 % (95-98); ARTERIAL BLOOD GAS PCO2 41 mm/Hg (35-45); ARTERIAL BLOOD GAS PH 7.46 (7.35-7.45); ARTERIAL BLOOD GAS PO2 75 mm/Hg (80-100); ARTERIAL BLOOD GAS TCO2 30.5 mmol/L (22-28)
[2018-09-26 06:01] LABS: ALB/GLOB RATIO 0.7 (1.0-2.1); ALBUMIN 2.2 g/dL (3.5-5.0); ALT/SGPT 18 U/L (9-52); AST/SGOT 19 U/L (14-36); BLOOD UREA NITROGEN 65 mg/dl (7-17); CALCIUM 7.6 mg/dL (8.4-10.2); GFR NON-AFRICAN AMERICAN > 60
--- NOTE | 2018-09-26 08:26 | RAD ---
Date of service: 09/26/2018 HISTORY: pt intubated, daily verification of ETT placement COMPARISON: Portable chest 09/25/2018. FINDINGS: LUNGS: Left-sided MediPort unchanged in position endotracheal tube again seen entering into the origin of the right mainstem bronchus. Retraction into the lower trachea is advised. Nasogastric tube unchanged. Low pulmonary volume again evident. No significant interval changes appreciated in patchy medial left basilar and perihilar density though right-sided density somewhat diminished. PLEURA: Trace bilateral pleural effusions present. No pneumothorax bilaterally. CARDIOVASCULAR: No aortic atherosclerotic calcification present. Cardiac silhouette appears stable. Diminished pulmonary vascular congestion noted. OSSEOUS STRUCTURES: No significant abnormalities. VISUALIZED UPPER ABDOMEN: Normal. OTHER FINDINGS: None. IMPRESSION: Improved pulmonary vascular congestion though underlying patchy airspace disease is unchanged at the left perihilar and basilar region. Right-sided perihilar and medial basilar patchy density diminished. Continued clinical and radiographic monitor advised. Retraction of endotracheal tube advised at the terminates in origin of right mainstem bronchus once again.
--- NOTE | 2018-09-26 09:39 | CP.PCM.PN ---
Subjective - Date & Time of Evaluation Date of Evaluation: 09/26/18 Time of Evaluation: 09:39 - Subjective Subjective: ID Note- Patient seen and examined this morning in ICU. remains on the vent and on pressor for BP support. She does open her eyes when her name is called. Objective - Vital Signs/Intake and Output Vital Signs (last 24 hours): Temp Pulse Resp BP Pulse Ox 98.8 F 125 H 20 100/59 L 100 09/26/18 08:00 09/26/18 08:00 09/26/18 08:00 09/26/18 08:00 09/26/18 08:00 Intake and Output: 09/26/18 09/26/18 06:59 18:59 Intake Total 1020 86 Output Total 1250 Balance -230 86 - Medications Medications: Current Medications Allopurinol (Zyloprim) 100 mg NG DAILY [facility] Last Admin: 09/26/18 08:58 Dose: 100 mg Apixaban (Eliquis) 5 mg PO BID [facility]; Protocol Last Admin: 09/06/18 17:08 Dose: Not Given Furosemide (Lasix) 20 mg PO BID [facility] Last Admin: 09/06/18 17:10 Dose: Not Given Fluconazole (Diflucan Iv 100 Mg/50 Ml Ns) 50 mls @ 50 mls/hr IVPB DAILY [facility]; Protocol Last Admin: 09/25/18 09:26 Dose: 50 mls/hr Meropenem 1 gm/ Sodium (Chloride) 100 mls @ 100 mls/hr IVPB Q8 [facility]; Protocol Last Admin: 09/26/18 08:57 Dose: 100 mls/hr Norepinephrine Bitartrate 8 mg (/ Dextrose) 258 mls @ 14.51 mls/hr IV .[id number] ONE; Protocol Stop: 09/26/18 18:58 Last Admin: 09/26/18 02:14 Dose: 7.5 mcg/min, 14.51 mls/hr Lorazepam (Ativan) 1 mg IVP Q4 PRN PRN Reason: Agitation Last Admin: 09/23/18 16:02 Dose: 1 mg Metoprolol Tartrate (Lopressor) 12.5 mg PO Q12 [facility] Last Admin: 09/06/18 21:59 Dose: Not Given Morphine Sulfate (Morphine) 2 mg IVP Q4 PRN PRN Reason: Pain, moderate (4-7) Last Admin: 09/25/18 20:28 Dose: 2 mg Pantoprazole Sodium (Protonix Inj) 40 mg IVP DAILY [facility] Last Admin: 09/26/18 08:58 Dose: 40 mg - Labs Labs: - Additional Findings Additional findings: - Constitutional Appears: Chronically Ill Additional comments: intubated but awake - Eye Exam Eye Exam: PERRL - ENT Exam Additional comments: ET and OGT in place - Neck Exam Additional comments: supple - Respiratory Exam Additional comments: On the vent - Cardiovascular Exam Cardiovascular Exam: Tachycardia, +S1, +S2 - GI/Abdominal Exam Additional comments: distended, soft hypoactive BS umbilical region with mass like lesion with denuded skin , no pus, bloody discharge scant only - Extremities Exam Additional comments: b/l 1+ edema in LE and left hand edema - Neurological Exam Additional comments: more alert and responds to some commands and opens her eyes when her name is called - Skin Additional comments: right breast entirely covered with fungating looking round erythematous lesions few have opened up and bleeding superfically - Additional Findings Additional findings: lines- ET and OG tube left chest mediport site clean, no erythema hardwick cath- draining dark urine less bloody rectal tube with brown liquid stool Laboratory Results - last 72 hr 09/24/18 09/24/18 09/24/18 04:49 05:00 05:00 WBC 1.9 L* RBC 2.35 L Hgb 7.1 L Hct 21.5 L MCV 91.4 MCH 30.1 MCHC 32.9 L RDW 15.0 H Plt Count 29 L* MPV 9.9 Neut % (Auto) 70.8 Lymph % (Auto) 25.1 Mclean % (Auto) 3.4 Eos % (Auto) 0.2 Baso % (Auto) 0.5 Neut # (Auto) 1.4 L Lymph # (Auto) 0.5 L Mclean # (Auto) 0.1 Eos # (Auto) 0.0 Baso # (Auto) 0.0 pCO2 41 pO2 121 H HCO3 29.3 H ABG pH 7.47 H ABG Total CO2 31.1 H ABG O2 Saturation 99.1 H ABG O2 Content 10.0 L ABG Base Excess 5.6 H ABG Hemoglobin 7.2 L ABG Carboxyhemoglobin 1.6 H POC ABG HHb (Measured) 0.9 ABG Methemoglobin 1.6 ABG O2 Capacity 10.1 L Frederic Test Yes A-a O2 Difference 149.0 Hgb O2 Saturation 95.9 Vent Mode A/c Mechanical Rate 16 FiO2 45.0 Tidal Volume 400 PEEP 5 Sodium 152 H Potassium 3.1 L Chloride 117 H Carbon Dioxide 27 Anion Gap 11 BUN 78 H Creatinine 1.1 Est GFR ( Amer) > 60 Est GFR (Non-Af Amer) 51 Random Glucose 115 H Calcium 8.3 L Phosphorus 4.1 Magnesium 2.0 Total Bilirubin 0.8 AST 23 ALT 31 Alkaline Phosphatase 83 Total Protein 5.2 L Albumin 2.3 L Globulin 2.9 Albumin/Globulin Ratio 0.8 L Vancomycin Trough 09/25/18 09/25/18 09/25/18 04:00 04:30 04:30 WBC 2.0 L* RBC 2.38 L Hgb 7.2 L Hct 21.8 L MCV 91.9 MCH 30.1 MCHC 32.8 L RDW 15.3 H Plt Count 39 L MPV Neut % (Auto) Lymph % (Auto) Mclean % (Auto) Eos % (Auto) Baso % (Auto) Neut # (Auto) Lymph # (Auto) Mclean # (Auto) Eos # (Auto) Baso # (Auto) pCO2 40 pO2 106 H HCO3 28.8 H ABG pH 7.47 H ABG Total CO2 30.3 H ABG O2 Saturation 99.6 H ABG O2 Content 10.8 L ABG Base Excess 5.0 H ABG Hemoglobin 7.9 L ABG Carboxyhemoglobin 1.7 H POC ABG HHb (Measured) 0.4 ABG Methemoglobin 2.3 ABG O2 Capacity 10.8 L Frederic Test Yes A-a O2 Difference 165.0 Hgb O2 Saturation 95.6 Vent Mode A/c Mechanical Rate 16 FiO2 45.0 Tidal Volume 400 PEEP 5 Sodium 152 H Potassium 3.1 L Chloride 120 H Carbon Dioxide 29 Anion Gap 6 L BUN 70 H Creatinine 1.0 Est GFR ( Amer) > 60 Est GFR (Non-Af Amer) 57 Random Glucose 114 H Calcium 8.0 L Phosphorus Magnesium Total Bilirubin 0.6 AST 20 ALT 21 Alkaline Phosphatase 79 Total Protein 5.2 L Albumin 2.2 L Globulin 3.0 Albumin/Globulin Ratio 0.8 L Vancomycin Trough 03/11/1009/26/18 09/26/18 08:50 05:00 05:00 WBC 2.1 L RBC 2.28 L Hgb 6.9 L Hct 20.9 L MCV 91.5 MCH 30.3 MCHC 33.1 RDW 15.4 H Plt Count 56 L MPV Neut % (Auto) Lymph % (Auto) Mclean % (Auto) Eos % (Auto) Baso % (Auto) Neut # (Auto) Lymph # (Auto) Mclean # (Auto) Eos # (Auto) Baso # (Auto) pCO2 pO2 HCO3 ABG pH ABG Total CO2 ABG O2 Saturation ABG O2 Content ABG Base Excess ABG Hemoglobin ABG Carboxyhemoglobin POC ABG HHb (Measured) ABG Methemoglobin ABG O2 Capacity Frederic Test A-a O2 Difference Hgb O2 Saturation Vent Mode Mechanical Rate FiO2 Tidal Volume PEEP Sodium Potassium Chloride Carbon Dioxide Anion Gap BUN Creatinine Est GFR ( Amer) Est GFR (Non-Af Amer) Random Glucose Calcium Phosphorus Magnesium Total Bilirubin AST ALT Alkaline Phosphatase Total Protein Albumin Globulin Albumin/Globulin Ratio Vancomycin Trough 39.6 H 27.3 H 09/26/18 09/26/18 05:00 05:00 WBC RBC Hgb Hct MCV MCH MCHC RDW Plt Count MPV Neut % (Auto) Lymph % (Auto) Mclean % (Auto) Eos % (Auto) Baso % (Auto) Neut # (Auto) Lymph # (Auto) Mclean # (Auto) Eos # (Auto) Baso # (Auto) pCO2 41 pO2 75 L HCO3 28.8 H ABG pH 7.46 H ABG Total CO2 30.5 H ABG O2 Saturation 100.7 H ABG O2 Content 10.1 L ABG Base Excess 4.9 H ABG Hemoglobin 7.3 L ABG Carboxyhemoglobin 2.8 H POC ABG HHb (Measured) -0.7 L ABG Methemoglobin 1.0 ABG O2 Capacity 10.0 L Frederic Test Yes A-a O2 Difference 195.0 Hgb O2 Saturation 96.9 Vent Mode A/c Mechanical Rate 16 FiO2 45.0 Tidal Volume 400 PEEP 5 Sodium 151 H Potassium 3.0 L Chloride 119 H Carbon Dioxide 29 Anion Gap 6 L BUN 65 H Creatinine 0.9 Est GFR ( Amer) > 60 Est GFR (Non-Af Amer) > 60 Random Glucose 114 H Calcium 7.6 L Phosphorus Magnesium Total Bilirubin 0.5 AST 19 ALT 18 Alkaline Phosphatase 75 Total Protein 5.2 L Albumin 2.2 L Globulin 3.0 Albumin/Globulin Ratio 0.7 L Vancomycin Trough Microbiology 09/25/18 12:10 Blood-Thru Central Line Blood Culture - Preliminary NO GROWTH AFTER 24 HOURS 09/20/18 14:00 Blood-Thru Central Line Blood Culture - Final NO GROWTH AFTER 5 DAYS 09/20/18 17:53 Trachasp Gram Stain - Final 09/20/18 17:53 Trachasp Sputum Culture - Final Yeast Species 09/20/18 17:53 Urine,Hardwick Urine Culture - Final No Growth (<1,000 CFU/ML) 09/15/18 15:35 Blood-Thru Central Line Blood Culture - Final NO GROWTH AFTER 5 DAYS 09/15/18 15:35 Blood-Thru Central Line Gram Stain - Final TEST NOT PERFORMED 09/15/18 15:25 Blood-Thru Central Line Blood Culture - Final NO GROWTH AFTER 5 DAYS 09/15/18 15:25 Blood-Thru Central Line Gram Stain - Final TEST NOT PERFORMED 09/08/18 11:49 Blood-Venous Blood Culture - Final NO GROWTH AFTER 5 DAYS 09/08/18 11:49 Blood-Venous Gram Stain - Final TEST NOT PERFORMED 09/08/18 11:49 Blood-Venous Blood Culture - Final NO GROWTH AFTER 5 DAYS 09/08/18 11:49 Blood-Venous Gram Stain - Final TEST NOT PERFORMED 09/07/18 Unknown Blood-Thru Central Line Blood Culture - Final NO GROWTH AFTER 5 DAYS 09/07/18 Unknown Blood-Thru Central Line Gram Stain - Final TEST NOT PERFORMED 09/07/18 Unknown Blood-Thru Central Line Blood Culture - Final NO GROWTH AFTER 5 DAYS 09/07/18 Unknown Blood-Thru Central Line Gram Stain - Final TEST NOT PERFORMED 09/07/18 09:07 Trachasp Gram Stain - Final 09/07/18 09:07 Trachasp Sputum Culture - Final Yeast Species 09/04/18 11:25 Naris MRSA Culture (Admit) - Final MRSA NOT DETECTED 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 remains intubated opens her eyes when name is called. lethargic continues to have low grade fevers past few days despite antibiotics and antifungals and repeat cx have all been neg except some yeast in trach asp cx fevers could be secondary to tumor burden and the metastatic malignancy states CXR report noted. continues to have anemia and thrombocytopenia tumor lysis syndrome blood cx- 09/07/2018- neg x 7 trach asp cx- yeast stool c.diff- negative repeat UA- negative repeat urine cx- neg PLan- continue with empiric vanco day #13, however , hold it today as trough was high. keep trough <15. advise to continue IV meropnem for broad spectrum gram negative coverage.day #17 continue with IV diflucan day #16 monitor absolute PMN and if becomes 500 or less needs to be on neutropenic precautions as well. critical care time spent 30 minutes. prognosis poor.
--- NOTE | 2018-09-26 13:06 | CP.CCUPN ---
CCU Subjective - Physician Review Subjective (Free Text): 09/26/18 18:09 The patient was Seen and examined by me at the bedside, Medical records reviewed and Management issues were discussed and formulated with the house staff. Events reviewed Patient is 58 years old female with past medical history of anemia, anxiety, CHF, deep venous thrombosis, peripheral edema, pulmonary embolism and stage IV advanced metastatic breast cancer Status post chemotherapy 2 days ago Who initially presented to the emergency room on 09/03 for evaluation of intermittent chest pain and shortness of breath for the past 2 days In the emergency room patient stated that this chest pain resolved and breathing got better On exam she was comfortable and was admitted to the medical service Transfused 1 unit of packed red blood cell for hemoglobin of 6.9 also of note Patient recently underwent paracentesis 09/04 Patient was transferred to the intensive care unit after ENGINEER SPECIALIST was called for severe respiratory distress and hypoxemia and patient found to be confused and respiratory distress BP was stable but she was tachycardic, tachypneic and saturating 88% on non- rebreathing mask she is to receive a stat dose of IV Lasix and transferred to the intensive care unit Upon admitting to the to the ICU she was emergently intubated by anesthesia and mechanically ventilated Patient self extubated last night and she was in distress and she was reintubated Currently patient is orally intubated, mechanically ventilated and sedated with Diprivan @ 25mcg/kg/min. RASS -2 She looks comfortable and in no distress Improved oxygenation blood pressure is better, however still requiring Levophed Sepsis controlled, Afebrile, Fluid overload on exam, Will resume Furosemide (Lasix) 20 mg PO BID Most recent Blood and urine C/S negative and Plat count 56K, Hypernatremia improving Discussed with the mother at the bedside patient condition, poor prognosis, treatment plans and alternative The mother is determined that she wants everything to be done for the patient and she is in agreement with pursuing trach and PEG and possible LTAC placement Surgical consult was called CCU Objective - Vital Signs / Intake & Output Vital Signs (Last 4 hours): Vital Signs Temp Pulse Resp BP Pulse Ox 09/26/18 12:41 124 H 16 90/56 L 100 09/26/18 12:00 97.9 F 121 H 16 90/56 L 100 09/26/18 10:00 99 F 122 H 16 102/61 100 Intake and Output (Last 8hrs): Intake & Output 09/25/18 09/26/18 09/26/18 22:59 06:59 14:59 Intake Total 480 680 406 Output Total 1250 Balance 480 -570 406 Intake: IV 46 Intake, Piggyback 150 Tube Feeding 280 280 210 Free Water Flush 200 400 0 Output: Urine 1250 Urethral (Orellana) 1250 - Physical Exam Head: Positive for: Atraumatic, Normocephalic Pupils: Positive for: PERRL Extroacular Muscles: Positive for: EOMI Conjunctiva: Negative for: Injected, Icteric Ears: Positive for: Normal Mouth: Positive for: Moist Mucous Membranes Nose (Internal): Positive for: Normal Inspection Neck: Positive for: Normal Range of Motion, Trachea Midline. Negative for: Meningeal Signs, MIDLINE TENDERNESS, Paraspinal Tenderness, JVD, Lymphadenopathy, Bruit, Other Respiratory/Chest: Positive for: Good Air Exchange, Rales, Retracting, Rhonchi. Negative for: Respiratory Distress, Accessory Muscle Use, Wheezes, Tachypneic Cardiovascular: Positive for: Regular Rate and Rhythm, Normal S1, S2, Peripheal Pulses Present. Negative for: Murmurs, Irregular Rhythm, Tachycardic, Bradycardic Abdomen: Positive for: Distention, Normal Bowel Sounds. Negative for: Tenderness Breast/Axillary: Positive for: Other (fungating necrotic mass to Right Breast) Upper Extremity: Positive for: Edema, NORMAL PULSES. Negative for: Normal Inspection, Cyanosis Lower Extremity: Positive for: Edema, NORMAL PULSES. Negative for: Normal Inspection Psychiatric: Positive for: Other (Sedated and orally intubated) - Medications Active Medications: Active Medications Generic Name Dose Route Start Last Admin Trade Name Freq PRN Reason Stop Dose Admin Allopurinol 100 mg 09/14/18 09:00 09/26/18 08:58 Zyloprim NG 100 mg DAILY GLADIS Administration Apixaban 5 mg 09/04/18 09:00 09/06/18 17:08 Eliquis PO Not Given BID GLADIS Protocol Furosemide 20 mg 09/04/18 09:00 09/06/18 17:10 Lasix PO Not Given BID GLADIS Fluconazole 50 mls @ 50 mls/hr 09/09/18 11:30 09/25/18 09:26 Diflucan Iv 100 Mg/50 Ml Ns IVPB 50 mls/hr DAILY GLADIS Administration Protocol Meropenem 1 gm/ Sodium 100 mls @ 100 mls/hr 09/18/18 12:45 09/26/18 08:57 Chloride IVPB 100 mls/hr Q8 GLADIS Administration Protocol Norepinephrine Bitartrate 8 mg 258 mls @ 14.51 mls/hr 09/26/18 01:12 09/26/18 02:14 / Dextrose IV 09/26/18 18:58 7.5 mcg/min .[id number] ONE 14.51 mls/hr Administration Protocol 7.5 MCG/MIN Lorazepam 1 mg 09/23/18 09:06 09/23/18 16:02 Ativan IVP 1 mg Q4 PRN Administration Agitation Metoprolol Tartrate 12.5 mg 09/03/18 23:45 09/06/18 21:59 Lopressor PO Not Given Q12 GLADIS Morphine Sulfate 2 mg 09/20/18 14:03 09/26/18 10:23 Morphine IVP 2 mg Q4 PRN Administration Pain, moderate (4-7) Pantoprazole Sodium 40 mg 09/19/18 22:00 09/26/18 08:58 Protonix Inj IVP 40 mg DAILY GLADIS Administration - Patient Studies Lab Studies: Microbiology Studies 09/25/18 12:00 Blood Culture - Preliminary Blood-Thru Central Line NO GROWTH AFTER 24 HOURS 09/25/18 12:10 Blood Culture - Preliminary Blood-Thru Central Line NO GROWTH AFTER 24 HOURS 09/20/18 14:00 Blood Culture - Final Blood-Thru Central Line NO GROWTH AFTER 5 DAYS Lab Studies 09/26/18 09/26/18 09/26/18 Range/Units 05:00 05:00 05:00 WBC 2.1 L (4.8-10.8) K/uL RBC 2.28 L (3.80-5.20) Mil/uL Hgb 6.9 L (12.0-16.0) g/dL Hct 20.9 L (34.0-47.0) % MCV 91.5 (81.0-99.0) fl MCH 30.3 (27.0-31.0) pg MCHC 33.1 (33.0-37.0) g/dL RDW 15.4 H (11.5-14.5) % Plt Count 56 L (130-400) K/uL pCO2 41 (35-45) mm/Hg pO2 75 L (80-100) mm/Hg HCO3 28.8 H (21-28) mmol/L ABG pH 7.46 H (7.35-7.45) ABG Total CO2 30.5 H (22-28) mmol/L ABG O2 Saturation 100.7 H (95-98) % ABG O2 Content 10.1 L (15-23) ML/dL ABG Base Excess 4.9 H (-2.0-3.0) mmol/L ABG Hemoglobin 7.3 L (11.7-17.4) g/dL ABG Carboxyhemoglobin 2.8 H (0.5-1.5) % POC ABG HHb (Measured) -0.7 L (0.0-5.0) % ABG Methemoglobin 1.0 (0.0-3.0) % ABG O2 Capacity 10.0 L (16-24) mL/dL Frederic Test Yes A-a O2 Difference 195.0 mm/Hg Hgb O2 Saturation 96.9 (95.0-98.0) % Vent Mode A/c Mechanical Rate 16 FiO2 45.0 % Tidal Volume 400 PEEP 5 Sodium 151 H (132-148) mmol/l Potassium 3.0 L (3.6-5.0) MMOL/L Chloride 119 H (98-107) mmol/L Carbon Dioxide 29 (22-30) mmol/L Anion Gap 6 L (10-20) BUN 65 H (7-17) mg/dl Creatinine 0.9 (0.7-1.2) mg/dl Est GFR ( Amer) > 60 Est GFR (Non-Af Amer) > 60 Random Glucose 114 H (65-105) mg/dL Calcium 7.6 L (8.4-10.2) mg/dL Total Bilirubin 0.5 (0.2-1.3) mg/dl AST 19 (14-36) U/L ALT 18 (9-52) U/L Alkaline Phosphatase 75 (38-126) U/L Total Protein 5.2 L (6.3-8.2) G/DL Albumin 2.2 L (3.5-5.0) g/dL Globulin 3.0 (2.2-3.9) gm/dL Albumin/Globulin Ratio 0.7 L (1.0-2.1) Vancomycin Trough (5.0-10.0) ug/mL 09/26/18 Range/Units 05:00 WBC (4.8-10.8) K/uL RBC (3.80-5.20) Mil/uL Hgb (12.0-16.0) g/dL Hct (34.0-47.0) % MCV (81.0-99.0) fl MCH (27.0-31.0) pg MCHC (33.0-37.0) g/dL RDW (11.5-14.5) % Plt Count (130-400) K/uL pCO2 (35-45) mm/Hg pO2 (80-100) mm/Hg HCO3 (21-28) mmol/L ABG pH (7.35-7.45) ABG Total CO2 (22-28) mmol/L ABG O2 Saturation (95-98) % ABG O2 Content (15-23) ML/dL ABG Base Excess (-2.0-3.0) mmol/L ABG Hemoglobin (11.7-17.4) g/dL ABG Carboxyhemoglobin (0.5-1.5) % POC ABG HHb (Measured) (0.0-5.0) % ABG Methemoglobin (0.0-3.0) % ABG O2 Capacity (16-24) mL/dL Frederic Test A-a O2 Difference mm/Hg Hgb O2 Saturation (95.0-98.0) % Vent Mode Mechanical Rate FiO2 % Tidal Volume PEEP Sodium (132-148) mmol/l Potassium (3.6-5.0) MMOL/L Chloride (98-107) mmol/L Carbon Dioxide (22-30) mmol/L Anion Gap (10-20) BUN (7-17) mg/dl Creatinine (0.7-1.2) mg/dl Est GFR ( Amer) Est GFR (Non-Af Amer) Random Glucose (65-105) mg/dL Calcium (8.4-10.2) mg/dL Total Bilirubin (0.2-1.3) mg/dl AST (14-36) U/L ALT (9-52) U/L Alkaline Phosphatase (38-126) U/L Total Protein (6.3-8.2) G/DL Albumin (3.5-5.0) g/dL Globulin (2.2-3.9) gm/dL Albumin/Globulin Ratio (1.0-2.1) Vancomycin Trough 27.3 H (5.0-10.0) ug/mL Laboratory Results - last 24 hr 09/26/18 09/26/18 09/26/18 05:00 05:00 05:00 WBC 2.1 L RBC 2.28 L Hgb 6.9 L Hct 20.9 L MCV 91.5 MCH 30.3 MCHC 33.1 RDW 15.4 H Plt Count 56 L pCO2 pO2 HCO3 ABG pH ABG Total CO2 ABG O2 Saturation ABG O2 Content ABG Base Excess ABG Hemoglobin ABG Carboxyhemoglobin POC ABG HHb (Measured) ABG Methemoglobin ABG O2 Capacity Frederic Test A-a O2 Difference Hgb O2 Saturation Vent Mode Mechanical Rate FiO2 Tidal Volume PEEP Sodium 151 H Potassium 3.0 L Chloride 119 H Carbon Dioxide 29 Anion Gap 6 L BUN 65 H Creatinine 0.9 Est GFR ( Amer) > 60 Est GFR (Non-Af Amer) > 60 Random Glucose 114 H Calcium 7.6 L Total Bilirubin 0.5 AST 19 ALT 18 Alkaline Phosphatase 75 Total Protein 5.2 L Albumin 2.2 L Globulin 3.0 Albumin/Globulin Ratio 0.7 L Vancomycin Trough 27.3 H 09/26/18 05:00 WBC RBC Hgb Hct MCV MCH MCHC RDW Plt Count pCO2 41 pO2 75 L HCO3 28.8 H ABG pH 7.46 H ABG Total CO2 30.5 H ABG O2 Saturation 100.7 H ABG O2 Content 10.1 L ABG Base Excess 4.9 H ABG Hemoglobin 7.3 L ABG Carboxyhemoglobin 2.8 H POC ABG HHb (Measured) -0.7 L ABG Methemoglobin 1.0 ABG O2 Capacity 10.0 L Frederic Test Yes A-a O2 Difference 195.0 Hgb O2 Saturation 96.9 Vent Mode A/c Mechanical Rate 16 FiO2 45.0 Tidal Volume 400 PEEP 5 Sodium Potassium Chloride Carbon Dioxide Anion Gap BUN Creatinine Est GFR ( Amer) Est GFR (Non-Af Amer) Random Glucose Calcium Total Bilirubin AST ALT Alkaline Phosphatase Total Protein Albumin Globulin Albumin/Globulin Ratio Vancomycin Trough Radiology Impressions: Radiology Impressions Chest X-Ray 09/26/18 04:00 IMPRESSION: Improved pulmonary vascular congestion though underlying patchy airspace disease is unchanged at the left perihilar and basilar region. Right-sided perihilar and medial basilar patchy density diminished. Continued clinical and radiographic monitor advised. Retraction of endotracheal tube advised at the terminates in origin of right mainstem bronchus once again. Critical Care Progress Note - Ventilator Checklist Head of Bed 30 Degrees: Yes Daily Sedation Vacation: Yes Daily Assessment of Readiness to Wean: Yes Daily Spontaneous Breathing Trial: Yes PUD Prophalyxis: Yes DVT Prophylaxis: Yes Oral Care with Chlorhexidine Gluconate {CHG}: Yes - Extremities/Vascular Does the Patient have a Central Venous Catheter?: Yes Does the Patient need a Central Venous Catheter?: Yes Does the Patient have a Orellana Catheter?: Yes Does the Patient need a Orellana Catheter?: Yes Assessment/Plan (1) Acute respiratory failure with hypoxia Current Visit: Yes Status: Acute Priority: High Comment: Intubated for hypoxemic respiratory failure strict I&O, Maintian negative fluid balance Continue diuresis as blood pressure permits She is not a candidate for spontaneous breathing since she is not clinically stable and very poor mental status Discussed with the mother at the bedside patient condition, poor prognosis, treatment plans and alternative Surgical consult called for Trach (2) Congestive heart failure (CHF) Current Visit: Yes Status: Acute Priority: High Comment: Intubated for hypoxemic respiratory failure strict I&O, Maintian negative fluid balance Continue diuresis as blood pressure permits Will resume Furosemide (Lasix) 20 mg PO BID (3) DVT of lower extremity, bilateral Current Visit: No Status: Chronic Priority: Medium Comment: Patient with H/O provoked DVT and Pulmonary embolism Continue Apixaban (Eliquis) 5 mg PO BID (4) Pulmonary embolism on left Current Visit: No Status: Chronic Priority: Medium Comment: Patient with H/O provoked DVT and Pulmonary embolism Continue Apixaban (Eliquis) 5 mg PO BID (5) Breast CA Current Visit: Yes Status: Acute Priority: High (6) Anemia Current Visit: Yes Status: Acute Priority: High Comment: Anemia is likely multifactorial from chronic disease and malignancy No signs of active bleeding at that time Transfuse as needed Hematology oncology consult appreciated
[2018-09-26] MEDS: Fluconazole IV 100mg/50 ml NS 50 ML IVPB SCH (16:53)
--- NOTE | 2018-09-26 18:58 | CP.PCM.PN ---
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 PRE RENAL PICTURE STILL WITH HYPER NATREMIA APPEARS MORE ALERT AND RESPONSIVE Objective - Vital Signs/Intake and Output Vital Signs (last 24 hours): Temp Pulse Resp BP Pulse Ox 98.2 F 120 H 20 96/62 L 100 09/26/18 17:52 09/26/18 17:52 09/26/18 17:52 09/26/18 17:52 09/26/18 17:52 Intake and Output: 09/26/18 09/26/18 06:59 18:59 Intake Total 1020 924 Output Total 1250 500 Balance -230 424 - Medications Medications: Current Medications Allopurinol (Zyloprim) 100 mg NG DAILY GLADIS Last Admin: 09/26/18 08:58 Dose: 100 mg Apixaban (Eliquis) 5 mg PO BID GLADIS; Protocol Last Admin: 09/06/18 17:08 Dose: Not Given Furosemide (Lasix) 20 mg PO BID GLADIS Last Admin: 09/06/18 17:10 Dose: Not Given Fluconazole (Diflucan Iv 100 Mg/50 Ml Ns) 50 mls @ 50 mls/hr IVPB DAILY GLADIS; Pr otocol Last Admin: 09/26/18 16:53 Dose: 50 mls/hr Meropenem 1 gm/ Sodium (Chloride) 100 mls @ 100 mls/hr IVPB Q8 GLADIS; Protocol Last Admin: 09/26/18 16:53 Dose: 100 mls/hr Norepinephrine Bitartrate 8 mg (/ Dextrose) 258 mls @ 14.51 mls/hr IV .[id number]; Protocol Stop: 09/26/18 18:58 Last Admin: 09/26/18 02:14 Dose: 7.5 mcg/min, 14.51 mls/hr Lorazepam (Ativan) 1 mg IVP Q4 PRN PRN Reason: Agitation Last Admin: 09/23/18 16:02 Dose: 1 mg Metoprolol Tartrate (Lopressor) 12.5 mg PO Q12 GLADIS Last Admin: 09/06/18 21:59 Dose: Not Given Morphine Sulfate (Morphine) 2 mg IVP Q4 PRN PRN Reason: Pain, moderate (4-7) Last Admin: 09/26/18 10:23 Dose: 2 mg Pantoprazole Sodium (Protonix Inj) 40 mg IVP DAILY GLADIS Last Admin: 09/26/18 08:58 Dose: 40 mg - Labs Labs: 09/26/18 05:00 09/26/18 05:00 PT 13.3 Seconds (9.8-13.1) H 09/20/18 16:15 INR 1.2 09/20/18 16:15 APTT 26.7 Seconds (25.6-37.1) 09/20/18 16:15 Assessment and Plan - Assessment and Plan (Free Text) Assessment: LOUIE .. PRE RENAL AZOTEMIA .. BETTER HYPER NATREMIA .. NEEDS TO DISSOLVE ALL IV MEDS IN D5W VDRF .. ON VENT SEPSIS .. ON IVAB COAGULOPATHY MMP
--- NOTE | 2018-09-26 21:53 | CP.PCM.PN ---
Subjective - Date & Time of Evaluation Date of Evaluation: 09/26/18 Time of Evaluation: 19:00 - Subjective Subjective: Vented Objective - Vital Signs/Intake and Output Vital Signs (last 24 hours): Temp Pulse Resp BP Pulse Ox 98.6 F 137 H 19 95/60 L 100 09/26/18 20:00 09/26/18 20:00 09/26/18 20:00 09/26/18 20:00 09/26/18 20:00 Intake and Output: 09/26/18 09/27/18 18:59 06:59 Intake Total 924 200 Output Total 500 Balance 424 200 - Medications Medications: Current Medications Allopurinol (Zyloprim) 100 mg NG DAILY [facility] Last Admin: 09/26/18 08:58 Dose: 100 mg Apixaban (Eliquis) 5 mg PO BID GLADIS; Protocol Last Admin: 09/06/18 17:08 Dose: Not Given Furosemide (Lasix) 20 mg PO BID [facility] Last Admin: 09/06/18 17:10 Dose: Not Given Fluconazole (Diflucan Iv 100 Mg/50 Ml Ns) 50 mls @ 50 mls/hr IVPB DAILY GLADIS; Protocol Last Admin: 09/26/18 16:53 Dose: 50 mls/hr Meropenem 1 gm/ Sodium (Chloride) 100 mls @ 100 mls/hr IVPB Q8 GLADIS; Protocol Last Admin: 09/26/18 16:53 Dose: 100 mls/hr Lorazepam (Ativan) 1 mg IVP Q4 PRN PRN Reason: Agitation Last Admin: 09/23/18 16:02 Dose: 1 mg Metoprolol Tartrate (Lopressor) 12.5 mg PO Q12 GLADIS Last Admin: 09/06/18 21:59 Dose: Not Given Morphine Sulfate (Morphine) 2 mg IVP Q4 PRN PRN Reason: Pain, moderate (4-7) Last Admin: 09/26/18 10:23 Dose: 2 mg Pantoprazole Sodium (Protonix Inj) 40 mg IVP DAILY GLADIS Last Admin: 09/26/18 08:58 Dose: 40 mg - Labs Labs: 09/26/18 05:00 09/26/18 05:00 PT 13.3 Seconds (9.8-13.1) H 09/20/18 16:15 INR 1.2 09/20/18 16:15 APTT 26.7 Seconds (25.6-37.1) 09/20/18 16:15 - Head Exam Head Exam: ATRAUMATIC - Eye Exam Eye Exam: Normal appearance - ENT Exam ENT Exam: Mucous Membranes Dry - Respiratory Exam Respiratory Exam: Decreased Breath Sounds - Cardiovascular Exam Cardiovascular Exam: +S1, +S2 - GI/Abdominal Exam GI & Abdominal Exam: Normal Bowel Sounds - Extremities Exam Extremities Exam: Pedal Edema Assessment and Plan (1) Pancytopenia Assessment & Plan: secondary to chemotherapy blood loss plt count improved transfusion support PRN Status: Acute (2) Pulmonary embolism Assessment & Plan: unable to anticoagulate due to blood loss Status: Acute (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 Wishes full code and agreeable to trach + PEG Status: Acute
--- NOTE | 2018-09-26 23:33 | CP.PCM.PN ---
Subjective - Date & Time of Evaluation Date of Evaluation: 09/25/18 Time of Evaluation: 19:00 - Subjective Subjective: Seen and examined at the bed side. Patient continue to decline. Anasarca, continue to be intubated and unresponsive. NOK refused DNR/DNI and end of lefe care. Unstable to discharge as patient is on Pressors, and will need G-Tube to send her even to long Acute Care Facility. Patient is MOF, Septic and Cardiogenic shock with Severe Cardiomyopathy, Anemia, Thrombo-cytopenia, Active bleeding, Stage IV Malignancy and extensive rashes. S/P Tracheostomy. Objective - Vital Signs/Intake and Output Vital Signs (last 24 hours): Temp Pulse Resp BP Pulse Ox 98.6 F 137 H 21 103/61 100 09/26/18 20:00 09/26/18 23:00 09/26/18 23:00 09/26/18 23:00 09/26/18 23:00 Intake and Output: 09/26/18 09/27/18 18:59 06:59 Intake Total 924 620 Output Total 500 Balance 424 620 - Medications Medications: Current Medications Allopurinol (Zyloprim) 100 mg NG DAILY GLADIS Last Admin: 09/26/18 08:58 Dose: 100 mg Apixaban (Eliquis) 5 mg PO BID GLADIS; Protocol Last Admin: 09/06/18 17:08 Dose: Not Given Furosemide (Lasix) 20 mg PO BID GLADIS Last Admin: 09/06/18 17:10 Dose: Not Given Fluconazole (Diflucan Iv 100 Mg/50 Ml Ns) 50 mls @ 50 mls/hr IVPB DAILY GLADIS; Protocol Last Admin: 09/26/18 16:53 Dose: 50 mls/hr Meropenem 1 gm/ Sodium (Chloride) 100 mls @ 100 mls/hr IVPB Q8 GLADIS; Protocol Last Admin: 09/26/18 16:53 Dose: 100 mls/hr Lorazepam (Ativan) 1 mg IVP Q4 PRN PRN Reason: Agitation Last Admin: 09/23/18 16:02 Dose: 1 mg Metoprolol Tartrate (Lopressor) 12.5 mg PO Q12 GLADIS Last Admin: 09/06/18 21:59 Dose: Not Given Morphine Sulfate (Morphine) 2 mg IVP Q4 PRN PRN Reason: Pain, moderate (4-7) Last Admin: 09/26/18 23:09 Dose: 2 mg Pantoprazole Sodium (Protonix Inj) 40 mg IVP DAILY GLADIS Last Admin: 09/26/18 08:58 Dose: 40 mg - Labs Labs: 09/26/18 05:00 09/26/18 05:00 PT 13.3 Seconds (9.8-13.1) H 09/20/18 16:15 INR 1.2 09/20/18 16:15 APTT 26.7 Seconds (25.6-37.1) 09/20/18 16:15 Assessment and Plan (1) Acute respiratory failure with hypoxemia Status: Acute (2) Ascites, malignant Status: Acute (3) Congestive heart failure (CHF) Status: Acute (4) Stage IV breast cancer in female Status: Acute (5) Severe anemia Status: Resolved (6) DVT of lower extremity, bilateral Status: Chronic (7) Thrombocytopenia Status: Resolved
[2018-09-27] MEDS: Meropenem 1 GM in Sodium Chloride 0.9% 100 ML IVPB SCH ×3 (00:12→16:13)
--- NOTE | 2018-09-27 04:26 | CP.PCM.CON ---
History of Present Illness - History of Present Illness History of Present Illness: General Surgery Consult for Dr. Hernandez This is a 58F with a PMH of Stage 4 breast CA who was admitted for SOB and intubated emergency on the floor on 09/04/18. Since that time the primary team has been unable to wean her from the ventilator. While she moves she makes not meaningful movements to imply ability to communicate which is consistent with the report received from the intensivits. I spoke with the patients mother who wants maximal medical therapy at this time. The patients course has been complicated by thrombocytopenia which currently is improving. Past Med hx: Breast CA, Clots Past Surg hx: 37 yrs ago Allergies: tylenol Review of Systems - Review of Systems Systems not reviewed;Unavailable: Acuity of Condition, Altered Mental Status Past Patient History - Infectious Disease Hx of Infectious Diseases: None - Past Medical History & Family History Past Medical History?: Yes Past Family History: Reviewed and not pertinent - Past Social History Smoking Status: Former Smoker Alcohol: None Drugs: Denies - CARDIAC Hx Congestive Heart Failure: Yes Hx Peripheral Edema: Yes - PULMONARY Hx Asthma: No Hx Pulmonary Embolism: Yes - NEUROLOGICAL Hx Neurological Disorder: No - HEENT Hx HEENT Problems: No - RENAL Hx Chronic Kidney Disease: No - ENDOCRINE/METABOLIC Hx Endocrine Disorders: No - HEMATOLOGICAL/ONCOLOGICAL Hx Anemia: Yes - INTEGUMENTARY Hx Dermatological Problems: No - MUSCULOSKELETAL/RHEUMATOLOGICAL Hx Arthritis: No - GASTROINTESTINAL Hx Gastrointestinal Disorders: No - GENITOURINARY/GYNECOLOGICAL Hx Genitourinary Disorders: No - PSYCHIATRIC Hx Anxiety: Yes - SURGICAL HISTORY Hx Surgeries: Yes Hx Section: Yes Other/Comment: right breast bx - ANESTHESIA Hx Anesthesia: Yes Hx Anesthesia Reactions: No Hx Malignant Hyperthermia: No Meds Allergies/Adverse Reactions: Allergies Allergy/AdvReac Type Severity Reaction Status Date / Time acetaminophen [From Tylenol] AdvReac Unknown SHORTNESS Verified 08/29/18 08:11 OF BREATH - Medications Medications: Current Medications Allopurinol (Zyloprim) 100 mg NG DAILY [facility] Last Admin: 09/26/18 08:58 Dose: 100 mg Apixaban (Eliquis) 5 mg PO BID [facility]; Protocol Last Admin: 09/06/18 17:08 Dose: Not Given Furosemide (Lasix) 20 mg PO BID [facility] Last Admin: 09/06/18 17:10 Dose: Not Given Fluconazole (Diflucan Iv 100 Mg/50 Ml Ns) 50 mls @ 50 mls/hr IVPB DAILY [facility]; Protocol Last Admin: 09/26/18 16:53 Dose: 50 mls/hr Meropenem 1 gm/ Sodium (Chloride) 100 mls @ 100 mls/hr IVPB Q8 [facility]; Protocol Last Admin: 09/27/18 00:12 Dose: 100 mls/hr Norepinephrine Bitartrate 8 mg (/ Dextrose) 258 mls @ 14.51 mls/hr IV .[id number] [facility]; Protocol Stop: 09/27/18 21:54 Lorazepam (Ativan) 1 mg IVP Q4 PRN PRN Reason: Agitation Last Admin: 09/23/18 16:02 Dose: 1 mg Metoprolol Tartrate (Lopressor) 12.5 mg PO Q12 [facility] Last Admin: 09/06/18 21:59 Dose: Not Given Morphine Sulfate (Morphine) 2 mg IVP Q4 PRN PRN Reason: Pain, moderate (4-7) Last Admin: 09/26/18 23:09 Dose: 2 mg Pantoprazole Sodium (Protonix Inj) 40 mg IVP DAILY [facility] Last Admin: 09/26/18 08:58 Dose: 40 mg Physical Exam - Constitutional Appears: Cachectic, Chronically Ill - Head Exam Head Exam: ATRAUMATIC - Eye Exam Eye Exam: Normal appearance - Respiratory Exam Additional comments: on a ventilator - Cardiovascular Exam Cardiovascular Exam: +S1, +S2 - GI/Abdominal Exam GI & Abdominal Exam: Soft. absent: Distended, Guarding, Rigid - Neurological Exam Neurological exam: Altered - Skin Additional comments: fungating breast mass Results - Vital Signs Recent Vital Signs: Last Vital Signs Temp 98.6 F 09/26/18 20:00 Pulse 140 H 09/27/18 03:00 Resp 22 09/27/18 03:00 BP 91/58 L 09/27/18 03:00 Pulse Ox 100 09/27/18 03:00 - Labs Result Diagrams: 09/26/18 05:00 09/26/18 05:00 Labs: Laboratory Results - last 24 hr 09/26/18 09/26/18 09/26/18 05:00 05:00 05:00 WBC 2.1 L RBC 2.28 L Hgb 6.9 L Hct 20.9 L MCV 91.5 MCH 30.3 MCHC 33.1 RDW 15.4 H Plt Count 56 L pCO2 pO2 HCO3 ABG pH ABG Total CO2 ABG O2 Saturation ABG O2 Content ABG Base Excess ABG Hemoglobin ABG Carboxyhemoglobin POC ABG HHb (Measured) ABG Methemoglobin ABG O2 Capacity Frederic Test A-a O2 Difference Hgb O2 Saturation Vent Mode Mechanical Rate FiO2 Tidal Volume PEEP Sodium 151 H Potassium 3.0 L Chloride 119 H Carbon Dioxide 29 Anion Gap 6 L BUN 65 H Creatinine 0.9 Est GFR ( Amer) > 60 Est GFR (Non-Af Amer) > 60 Random Glucose 114 H Calcium 7.6 L Total Bilirubin 0.5 AST 19 ALT 18 Alkaline Phosphatase 75 Total Protein 5.2 L Albumin 2.2 L Globulin 3.0 Albumin/Globulin Ratio 0.7 L Vancomycin Trough 27.3 H 09/26/ 05:00 WBC RBC Hgb Hct MCV MCH MCHC RDW Plt Count pCO2 41 pO2 75 L HCO3 28.8 H ABG pH 7.46 H ABG Total CO2 30.5 H ABG O2 Saturation 100.7 H ABG O2 Content 10.1 L ABG Base Excess 4.9 H ABG Hemoglobin 7.3 L ABG Carboxyhemoglobin 2.8 H POC ABG HHb (Measured) -0.7 L ABG Methemoglobin 1.0 ABG O2 Capacity 10.0 L Frederic Test Yes A-a O2 Difference 195.0 Hgb O2 Saturation 96.9 Vent Mode A/c Mechanical Rate 16 FiO2 45.0 Tidal Volume 400 PEEP 5 Sodium Potassium Chloride Carbon Dioxide Anion Gap BUN Creatinine Est GFR ( Amer) Est GFR (Non-Af Amer) Random Glucose Calcium Total Bilirubin AST ALT Alkaline Phosphatase Total Protein Albumin Globulin Albumin/Globulin Ratio Vancomycin Trough Assessment & Plan - Assessment and Plan (Free Text) Assessment: 58F with endstage breast CA with failure to wean from vent Follow platelets plan for OR on tuesday d/w Dr. David Spencer PGY3
[2018-09-27 05:20] LABS: ABG ALLEN TEST YES; ARTERIAL BLOOD GAS HCO3 28.6 mmol/L (21-28); ARTERIAL BLOOD GAS HEMOGLOBIN 10.5 g/dL (11.7-17.4); ARTERIAL BLOOD GAS O2 CAPACITY 14.4 mL/dL (16-24); ARTERIAL BLOOD GAS O2 CONTENT 14.1 ML/dL (15-23); ARTERIAL BLOOD GAS O2 SAT 97.7 % (95-98); ARTERIAL BLOOD GAS PCO2 36 mm/Hg (35-45); ARTERIAL BLOOD GAS PO2 74 mm/Hg (80-100); ARTERIAL BLOOD GAS TCO2 29.2 mmol/L (22-28)
[2018-09-27 05:22] LABS: HEMOGLOBIN 7.1 g/dL (12.0-16.0); MEAN CELL VOLUME 93.4 fl (81.0-99.0); MEAN CORPUSCULAR HEMOGLOBIN 30.5 pg (27.0-31.0); MEAN CORPUSCULAR HGB CONC 32.6 g/dL (33.0-37.0); RBC 2.32 Mil/uL (3.80-5.20); RED CELL DISTRIBUTION WIDTH 15.2 % (11.5-14.5); WHITE BLOOD COUNT 3.1 K/uL (4.8-10.8)
[2018-09-27 05:52] LABS: ALB/GLOB RATIO 0.6 (1.0-2.1); ALT/SGPT 20 U/L (9-52); AST/SGOT 24 U/L (14-36); BLOOD UREA NITROGEN 72 mg/dl (7-17); CALCIUM 7.4 mg/dL (8.4-10.2); GFR NON-AFRICAN AMERICAN 57
--- NOTE | 2018-09-27 09:49 | CP.PCM.PN ---
Subjective - Date & Time of Evaluation Date of Evaluation: 09/27/18 Time of Evaluation: 09:49 - Subjective Subjective: Id note- Patient seen and examined today in ICU. remains intubated and on pressor. opens her eyes when her name is called. Objective - Vital Signs/Intake and Output Vital Signs (last 24 hours): Temp Pulse Resp BP Pulse Ox 101.3 F H 126 H 17 99/56 L 100 09/27/18 08:00 09/27/18 08:00 09/27/18 08:00 09/27/18 08:16 09/27/18 08:00 Intake and Output: 09/27/18 09/27/18 06:59 18:59 Intake Total 1689 Output Total 380 Balance 1309 - Medications Medications: Current Medications Allopurinol (Zyloprim) 100 mg NG DAILY [facility] Last Admin: 09/27/18 08:16 Dose: 100 mg Apixaban (Eliquis) 5 mg PO BID [facility]; Protocol Last Admin: 09/06/18 17:08 Dose: Not Given Furosemide (Lasix) 20 mg PO BID [facility] Last Admin: 09/27/18 08:16 Dose: 20 mg Fluconazole (Diflucan Iv 100 Mg/50 Ml Ns) 50 mls @ 50 mls/hr IVPB DAILY [facility]; Protocol Last Admin: 09/26/18 16:53 Dose: 50 mls/hr Meropenem 1 gm/ Sodium (Chloride) 100 mls @ 100 mls/hr IVPB Q8 [facility]; Protocol Last Admin: 09/27/18 08:06 Dose: 100 mls/hr Norepinephrine Bitartrate 8 mg (/ Dextrose) 258 mls @ 14.51 mls/hr IV .[id number] [facility]; Protocol Stop: 09/27/18 21:54 Lorazepam (Ativan) 1 mg IVP Q4 PRN PRN Reason: Agitation Last Admin: 09/23/18 16:02 Dose: 1 mg Metoprolol Tartrate (Lopressor) 12.5 mg PO Q12 [facility] Last Admin: 09/06/18 21:59 Dose: Not Given Morphine Sulfate (Morphine) 2 mg IVP Q4 PRN PRN Reason: Pain, moderate (4-7) Last Admin: 09/26/18 23:09 Dose: 2 mg Pantoprazole Sodium (Protonix Inj) 40 mg IVP DAILY [facility] Last Admin: 09/27/18 08:16 Dose: 40 mg - Labs Labs: - Additional Findings Additional findings: - Constitutional Appears: Chronically Ill Additional comments: intubated but awake - Eye Exam Eye Exam: PERRL - ENT Exam Additional comments: ET and OGT in place - Neck Exam Additional comments: supple - Respiratory Exam Additional comments: On the vent - Cardiovascular Exam Cardiovascular Exam: Tachycardia, +S1, +S2 - GI/Abdominal Exam Additional comments: distended hypoactive BS umbilical region with mass like lesion with denuded skin , no pus, bloody discharge scant only - Extremities Exam Additional comments: b/l 1+ edema in LE and left hand edema - Neurological Exam Additional comments: more alert and responds to some commands and opens her eyes when her name is called - Skin Additional comments: right breast entirely covered with fungating looking round erythematous lesions few have opened up and bleeding superfically - Additional Findings Additional findings: lines- ET and OG tube left chest mediport site clean, no erythema hardwick cath- draining dark urine rectal tube with brown soft stool Laboratory Results - last 72 hr 09/24/18 09/25/18 09/25/18 04:49 04:00 04:30 WBC 2.0 L* RBC 2.38 L Hgb 7.2 L Hct 21.8 L MCV 91.9 MCH 30.1 MCHC 32.8 L RDW 15.3 H Plt Count 39 L pCO2 41 40 pO2 121 H 106 H HCO3 29.3 H 28.8 H ABG pH 7.47 H 7.47 H ABG Total CO2 31.1 H 30.3 H ABG O2 Saturation 99.1 H 99.6 H ABG O2 Content 10.0 L 10.8 L ABG Base Excess 5.6 H 5.0 H ABG Hemoglobin 7.2 L 7.9 L ABG Carboxyhemoglobin 1.6 H 1.7 H POC ABG HHb (Measured) 0.9 0.4 ABG Methemoglobin 1.6 2.3 ABG O2 Capacity 10.1 L 10.8 L Frederic Test Yes Yes A-a O2 Difference 149.0 165.0 Hgb O2 Saturation 95.9 95.6 Vent Mode A/c A/c Mechanical Rate 16 16 FiO2 45.0 45.0 Tidal Volume 400 400 PEEP 5 5 Sodium Potassium Chloride Carbon Dioxide Anion Gap BUN Creatinine Est GFR ( Amer) Est GFR (Non-Af Amer) Random Glucose Calcium Total Bilirubin AST ALT Alkaline Phosphatase Total Protein Albumin Globulin Albumin/Globulin Ratio Vancomycin Trough 09/25/18 09/25/18 09/26/18 04:30 08:50 05:00 WBC RBC Hgb Hct MCV MCH MCHC RDW Plt Count pCO2 pO2 HCO3 ABG pH ABG Total CO2 ABG O2 Saturation ABG O2 Content ABG Base Excess ABG Hemoglobin ABG Carboxyhemoglobin POC ABG HHb (Measured) ABG Methemoglobin ABG O2 Capacity Frederic Test A-a O2 Difference Hgb O2 Saturation Vent Mode Mechanical Rate FiO2 Tidal Volume PEEP Sodium 152 H Potassium 3.1 L Chloride 120 H Carbon Dioxide 29 Anion Gap 6 L BUN 70 H Creatinine 1.0 Est GFR ( Amer) > 60 Est GFR (Non-Af Amer) 57 Random Glucose 114 H Calcium 8.0 L Total Bilirubin 0.6 AST 20 ALT 21 Alkaline Phosphatase 79 Total Protein 5.2 L Albumin 2.2 L Globulin 3.0 Albumin/Globulin Ratio 0.8 L Vancomycin Trough 39.6 H 27.3 H 09/26/18 09/26/18 09/26/18 05:00 05:00 05:00 WBC 2.1 L RBC 2.28 L Hgb 6.9 L Hct 20.9 L MCV 91.5 MCH 30.3 MCHC 33.1 RDW 15.4 H Plt Count 56 L pCO2 41 pO2 75 L HCO3 28.8 H ABG pH 7.46 H ABG Total CO2 30.5 H ABG O2 Saturation 100.7 H ABG O2 Content 10.1 L ABG Base Excess 4.9 H ABG Hemoglobin 7.3 L ABG Carboxyhemoglobin 2.8 H POC ABG HHb (Measured) -0.7 L ABG Methemoglobin 1.0 ABG O2 Capacity 10.0 L Frederic Test Yes A-a O2 Difference 195.0 Hgb O2 Saturation 96.9 Vent Mode A/c Mechanical Rate 16 FiO2 45.0 Tidal Volume 400 PEEP 5 Sodium 151 H Potassium 3.0 L Chloride 119 H Carbon Dioxide 29 Anion Gap 6 L BUN 65 H Creatinine 0.9 Est GFR ( Amer) > 60 Est GFR (Non-Af Amer) > 60 Random Glucose 114 H Calcium 7.6 L Total Bilirubin 0.5 AST 19 ALT 18 Alkaline Phosphatase 75 Total Protein 5.2 L Albumin 2.2 L Globulin 3.0 Albumin/Globulin Ratio 0.7 L Vancomycin Trough 09/27/18 09/27/18 09/27/18 04:20 04:20 04:45 WBC 3.1 L RBC 2.32 L Hgb 7.1 L Hct 21.7 L MCV 93.4 MCH 30.5 MCHC 32.6 L RDW 15.2 H Plt Count 76 L D pCO2 36 pO2 74 L HCO3 28.6 H ABG pH 7.50 H ABG Total CO2 29.2 H ABG O2 Saturation 97.7 ABG O2 Content 14.1 L ABG Base Excess 4.8 H ABG Hemoglobin 10.5 L ABG Carboxyhemoglobin 1.5 POC ABG HHb (Measured) 2.2 ABG Methemoglobin 1.5 ABG O2 Capacity 14.4 L Frederic Test Yes A-a O2 Difference 238.0 Hgb O2 Saturation 94.7 L Vent Mode Mechanical Rate 16 FiO2 50.0 Tidal Volume 400 PEEP 5 Sodium 152 H Potassium 3.2 L Chloride 119 H Carbon Dioxide 27 Anion Gap 9 L BUN 72 H Creatinine 1.0 Est GFR ( Amer) > 60 Est GFR (Non-Af Amer) 57 Random Glucose 130 H Calcium 7.4 L Total Bilirubin 0.5 AST 24 ALT 20 Alkaline Phosphatase 66 Total Protein 5.2 L Albumin 2.0 L Globulin 3.2 Albumin/Globulin Ratio 0.6 L Vancomycin Trough Microbiology 09/25/18 12:10 Blood-Thru Central Line Blood Culture - Preliminary NO GROWTH AFTER 48 HOURS 09/20/18 14:00 Blood-Thru Central Line Blood Culture - Final NO GROWTH AFTER 5 DAYS 09/20/18 17:53 Trachasp Gram Stain - Final 09/20/18 17:53 Trachasp Sputum Culture - Final Yeast Species 09/20/18 17:53 Urine,Hardwick Urine Culture - Final No Growth (<1,000 CFU/ML) 09/15/18 15:35 Blood-Thru Central Line Blood Culture - Final NO GROWTH AFTER 5 DAYS 09/15/18 15:35 Blood-Thru Central Line Gram Stain - Final TEST NOT PERFORMED 09/15/18 15:25 Blood-Thru Central Line Blood Culture - Final NO GROWTH AFTER 5 DAYS 09/15/18 15:25 Blood-Thru Central Line Gram Stain - Final TEST NOT PERFORMED 09/08/18 11:49 Blood-Venous Blood Culture - Final NO GROWTH AFTER 5 DAYS 09/08/18 11:49 Blood-Venous Gram Stain - Final TEST NOT PERFORMED 09/08/18 11:49 Blood-Venous Blood Culture - Final NO GROWTH AFTER 5 DAYS 09/08/18 11:49 Blood-Venous Gram Stain - Final TEST NOT PERFORMED 09/07/18 Unknown Blood-Thru Central Line Blood Culture - Final NO GROWTH AFTER 5 DAYS 09/07/18 Unknown Blood-Thru Central Line Gram Stain - Final TEST NOT PERFORMED 09/07/18 Unknown Blood-Thru Central Line Blood Culture - Final NO GROWTH AFTER 5 DAYS 09/07/18 Unknown Blood-Thru Central Line Gram Stain - Final TEST NOT PERFORMED 09/07/18 09:07 Trachasp Gram Stain - Final 09/07/18 09:07 Trachasp Sputum Culture - Final Yeast Species 09/04/18 11:25 Naris MRSA Culture (Admit) - Final MRSA NOT DETECTED Accession No. : [id number] Patient Name / ID : RYLEE ONEIL / [id number] Exam Date : 09/27/2018 04:04:06 ( Approved ) Study Comment : Sex / Age : F / 58Y Creator : Syed Avalos MD Dictator : Syed Avalos MD Medication Administration Professional : Rustic Fence Builder : Syed Avalos MD Approver2 : Report Date : 09/27/2018 11:27:30 My Comment : Date of service: 09/27/2018 HISTORY: Pt intubated COMPARISON: Portable chest 09/26/2018. FINDINGS: LUNGS: ET tube terminates approximately 1 cm of the loren. MediPort unchanged in position. Endotracheal tube unchanged as well. Persistent, unchanged left lower lobe and perihilar infiltrate again evident with borderline medial right basilar patchy density remaining as well. Linear atelectasis or fibrosis in the right base. PLEURA: Minimal bilateral pleural effusions remain difficult to exclude. No pneumothorax bilaterally. CARDIOVASCULAR: No aortic atherosclerotic calcification present. Stable cardiac size. No definite pulmonary vascular congestion appreciable. No pulmonary vascular congestion. OSSEOUS STRUCTURES: No significant abnormalities. VISUALIZED UPPER ABDOMEN: Normal. OTHER FINDINGS: None. IMPRESSION: Persistent perihilar and left lower lobe infiltrate with trace bilateral pleural effusions again evident. ET tube slightly retracted terminating at 1 cm above the loren. 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 remains intubated opens her eyes when name is called. lethargic continues to have low grade fevers past few days despite antibiotics and antifungals and repeat cx have all been neg except some yeast in trach asp cx fevers could be secondary to tumor burden and the metastatic malignancy states CXR report noted. continues to have anemia and thrombocytopenia tumor lysis syndrome blood cx- 09/07/2018- neg x 8 trach asp cx- yeast stool c.diff- negative repeat UA- negative repeat urine cx- neg PLan- so far 13 days of vanco , has been held past 2 days secondary to high trough. check trough tomm am and if <15 can resume. advise to continue IV meropnem for broad spectrum gram negative coverage.day #18 continue with IV diflucan day #17 monitor absolute PMN and if becomes 500 or less needs to be on neutropenic precautions as well. critical care time spent 30 minutes. prognosis poor.
[2018-09-27] MEDS: Fluconazole IV 100mg/50 ml NS 50 ML IVPB SCH (10:11)
--- NOTE | 2018-09-27 10:57 | CP.PCM.PN ---
Subjective - Date & Time of Evaluation Date of Evaluation: 09/27/18 Time of Evaluation: 11:15 - Subjective Subjective: General Surgery Note for Dr. Hernandez Patient seen and examined at bedside. No acute event overnight. Patient remains intubated and on PRVC 400/16/50%/5. She is on Levophed 7.5 mcg/min. GCS 9T. ROS unobtainable due to clinical condition. Possible tracheostomy on Tuesday. Objective - Vital Signs/Intake and Output Vital Signs (last 24 hours): Temp Pulse Resp BP Pulse Ox 101.3 F H 117 H 16 101/61 96 09/27/18 08:00 09/27/18 10:00 09/27/18 10:00 09/27/18 10:00 09/27/18 10:00 Intake and Output: 09/27/18 09/27/18 06:59 18:59 Intake Total 1689 565 Output Total 380 Balance 1309 565 - Medications Medications: Current Medications Allopurinol (Zyloprim) 100 mg NG DAILY [facility] Last Admin: 09/27/18 08:16 Dose: 100 mg Apixaban (Eliquis) 5 mg PO BID [facility]; Protocol Last Admin: 09/06/18 17:08 Dose: Not Given Furosemide (Lasix) 20 mg PO BID [facility] Last Admin: 09/27/18 08:16 Dose: 20 mg Fluconazole (Diflucan Iv 100 Mg/50 Ml Ns) 50 mls @ 50 mls/hr IVPB DAILY [facility]; Pr otocol Last Admin: 09/27/18 10:11 Dose: 50 mls/hr Meropenem 1 gm/ Sodium (Chloride) 100 mls @ 100 mls/hr IVPB Q8 [facility]; Protocol Last Admin: 09/27/18 08:06 Dose: 100 mls/hr Norepinephrine Bitartrate 8 mg (/ Dextrose) 258 mls @ 14.51 mls/hr IV .[id number] ONE; Protocol Stop: 09/27/18 21:54 Last Admin: 09/27/18 10:10 Dose: 7.5 mcg/min, 14.51 mls/hr Lorazepam (Ativan) 1 mg IVP Q4 PRN PRN Reason: Agitation Last Admin: 09/23/18 16:02 Dose: 1 mg Metoprolol Tartrate (Lopressor) 12.5 mg PO Q12 [facility] Last Admin: 09/06/18 21:59 Dose: Not Given Morphine Sulfate (Morphine) 2 mg IVP Q4 PRN PRN Reason: Pain, moderate (4-7) Last Admin: 09/26/18 23:09 Dose: 2 mg Pantoprazole Sodium (Protonix Inj) 40 mg IVP DAILY [facility] Last Admin: 09/27/18 08:16 Dose: 40 mg - Labs Labs: 09/27/18 04:20 09/27/18 04:20 PT 13.3 Seconds (9.8-13.1) H 09/20/18 16:15 INR 1.2 09/20/18 16:15 APTT 26.7 Seconds (25.6-37.1) 09/20/18 16:15 - Constitutional Appears: No Acute Distress, Chronically Ill - Head Exam Head Exam: NORMOCEPHALIC - Eye Exam Eye Exam: EOMI Pupil Exam: PERRL - ENT Exam Additional comments: ET tube in place - Respiratory Exam Additional comments: intubated and on PRVC 400/16/50%/5 - Cardiovascular Exam Cardiovascular Exam: Tachycardia - GI/Abdominal Exam GI & Abdominal Exam: Soft. absent: Tenderness - Neurological Exam Neurological Exam: Altered - Psychiatric Exam Psychiatric exam: Flat Affect - Skin Additional comments: necrotic/fungating R breast mass from breast CA Assessment and Plan - Assessment and Plan (Free Text) Assessment: 58F with endstage breast CA with respiratory failure and inability to wean from ventilator Plan: Monitor platelets plan for Tracheostomy 10/02 Wean vent requirement Wean from vasopressors Medically optimize patient Medical management as per ICU Discussed with Dr. David Rodriguez PGY2
--- NOTE | 2018-09-27 11:33 | RAD ---
Date of service: 09/27/2018 HISTORY: Pt intubated COMPARISON: Portable chest 09/26/2018. FINDINGS: LUNGS: ET tube terminates approximately 1 cm of the loren. MediPort unchanged in position. Endotracheal tube unchanged as well. Persistent, unchanged left lower lobe and perihilar infiltrate again evident with borderline medial right basilar patchy density remaining as well. Linear atelectasis or fibrosis in the right base. PLEURA: Minimal bilateral pleural effusions remain difficult to exclude. No pneumothorax bilaterally. CARDIOVASCULAR: No aortic atherosclerotic calcification present. Stable cardiac size. No definite pulmonary vascular congestion appreciable. No pulmonary vascular congestion. OSSEOUS STRUCTURES: No significant abnormalities. VISUALIZED UPPER ABDOMEN: Normal. OTHER FINDINGS: None. IMPRESSION: Persistent perihilar and left lower lobe infiltrate with trace bilateral pleural effusions again evident. ET tube slightly retracted terminating at 1 cm above the loren.
--- NOTE | 2018-09-27 14:44 | CP.CCUPN ---
CCU Subjective - Physician Review Subjective (Free Text): Remains off the need for sedation, on now low dose Levophed at 7.5 mcg dose, otherwise awake and non-distressed. Still breathing 16 on AC 16, TV 400ml, was on 50%, increased to 70% early AM, on PEEP 5. Had a fever spike this AM to 101.8F. First fever spike since September 25. SBPs 90-100s, HR 100s, 99% SPO2. Approx 1.7 liter positive fluid balance. Still bleeding from the vagina and hematuria noted via Orellana. ROS: No other pertinent negs or positive on 10+ system review obtainable due to intubation. Other PMSFH: All other Nursing and physician documentation reviewed to date; no new pertinent info noted relevant to current medical problems. EXAM- HEENT: no icterus, pupils equal, 3 mm and reactive, no gaze preference NECK: no visible JVD, supple, carotids equal upstroke bilat/no bruits CHEST: decreased BS bases, no wheezes audible, bloody fluid drained dressing over R breast. Left chest portacath. HEART: regular, distant, tachy S1S2, no murmur audible, no rubs. ABD: soft, ++distention with ascites, no focal tenderness, BS hypoactive, dried necrotic lesion over umbilicus unchanged. Previous paracentesis puncture site still leaking ascitic fluid. EXT: ++ edema LEs, and arms +ulcer posterior R calf worse than L, no calf tenderness or palpable cords, distal pulses intact and symmetrical; still leaking ascitic fluid from previous R lateral paracentesis site several weeks ago. R Femoral TLC intact. NEURO: withdraws to pain stimuli, + tone SKIN: no rashes LABS: WBC= 3.1 HGB= 7.1 PLTs = 76K 7.50/36/74 Na= 152 K= 3.2 Cl= 119 HCO3= 27 BUN/Cr= 72/1.0 BS= 130 CXR: (my interp)- ETT position OK above loren. Decreased lung volumes bilaterally. Unchanged bi-basilar; compressed lung volumes with LLL interstitial changes prominent. IMPRESSION / MAJOR PROBLEMS NOW: 1. Acute hypoxemic Resp Failure, 2 bilat multi-lobar pneumonia 2. Persistent vaginal Bleeding 3. Severe Sepsis with shock, 2 Pneumonia, r/o bacteremia 4. Acute on Chronic disease Anemia 5. h/o DVT- bilat CFV on Feb 5. 6. s/p Paracentesis Feb 5 for 2.5 liters PLAN: 1. NO PRBCs today, Plts continue to improve. 2. Day # 26 on MV, Trach appears to be tentative for Sep 11. 3. NO MV weans feasible with poor tolerance given lung compression from asci maylin; and needs repeat paracentesis. 4. Will consult IR for repeat Abd paracentesis. IR consultation for uterine embolization of persistent vaginal bleeding from pelvic/ uterine mass. 5. Juan / Vanco / Diflucan 6. Hypernatremia only slowly improving, will increase free water to Q3H. Stop Lasix, see no benefit at this time, especially as she remains on Levophed. 7. Needs KCL, check Mag / phos levels. 8. No new Advance Directives from Mother, full aggressive care requested. CCU Objective - Vital Signs / Intake & Output Vital Signs (Last 4 hours): Vital Signs Temp Pulse Resp BP Pulse Ox 09/27/18 14:00 111 H 16 99/58 L 99 09/27/18 13:00 115 H 16 102/59 L 100 09/27/18 12:00 98.5 F 111 H 16 100/57 L 98 09/27/18 11:00 117 H 16 102/61 98 Intake and Output (Last 8hrs): Intake & Output 09/26/18 09/27/18 09/27/18 22:59 06:59 14:59 Intake Total 1054 1069 625 Output Total 500 380 Balance 554 689 625 Intake: IV 14 169 Intake, Piggyback 150 100 320 Oral 0 Tube Feeding 490 105 Free Water Flush 400 800 200 Output: Urine 500 380 Urethral (Orellana) 500 380 - Physical Exam Head: Positive for: Atraumatic, Normocephalic Pupils: Positive for: PERRL Extroacular Muscles: Positive for: EOMI Conjunctiva: Negative for: Injected, Icteric Ears: Positive for: Normal Mouth: Positive for: Moist Mucous Membranes Nose (Internal): Positive for: Normal Inspection Neck: Positive for: Normal Range of Motion, Trachea Midline. Negative for: Meningeal Signs, MIDLINE TENDERNESS, Paraspinal Tenderness, JVD, Lymphadenopathy, Bruit, Other Respiratory/Chest: Positive for: Good Air Exchange, Rales, Retracting, Rhonchi. Negative for: Respiratory Distress, Accessory Muscle Use, Wheezes, Tachypneic Cardiovascular: Positive for: Regular Rate and Rhythm, Normal S1, S2, Peripheal Pulses Present. Negative for: Murmurs, Irregular Rhythm, Tachycardic, Bradycardic Abdomen: Positive for: Distention, Normal Bowel Sounds. Negative for: Tenderness Breast/Axillary: Positive for: Other (fungating necrotic mass to Right Breast) Upper Extremity: Positive for: Edema, NORMAL PULSES. Negative for: Normal Inspection, Cyanosis Lower Extremity: Positive for: Edema, NORMAL PULSES. Negative for: Normal Inspection Psychiatric: Positive for: Other (Sedated and orally intubated) - Medications Active Medications: Active Medications Generic Name Dose Route Start Last Admin Trade Name Freq PRN Reason Stop Dose Admin Allopurinol 100 mg 09/14/18 09:00 09/27/18 08:16 Zyloprim NG 100 mg DAILY [facility] Administration Apixaban 5 mg 09/04/18 09:00 09/06/18 17:08 Eliquis PO Not Given BID GLADIS Protocol Fluconazole 50 mls @ 50 mls/hr 09/09/18 11:30 09/27/18 10:11 Diflucan Iv 100 Mg/50 Ml Ns IVPB 50 mls/hr DAILY [facility] Administration Protocol Meropenem 1 gm/ Sodium 100 mls @ 100 mls/hr 09/18/18 12:45 09/27/18 08:06 Chloride IVPB 100 mls/hr Q8 [facility] Administration Protocol Norepinephrine Bitartrate 8 mg 258 mls @ 14.51 mls/hr 09/27/18 04:08 09/27/18 10:10 / Dextrose IV 09/27/18 21:54 7.5 mcg/min .[id number] ONE 14.51 mls/hr Administration Protocol 7.5 MCG/MIN Metoprolol Tartrate 12.5 mg 09/03/18 23:45 09/06/18 21:59 Lopressor PO Not Given Q12 GLADIS Pantoprazole Sodium 40 mg 09/19/18 22:00 09/27/18 08:16 Protonix Inj IVP 40 mg DAILY [facility] Administration - Patient Studies Lab Studies: Microbiology Studies 09/25/18 12:10 Blood Culture - Preliminary Blood-Thru Central Line NO GROWTH AFTER 48 HOURS Lab Studies 09/27/18 09/27/1809/27/19 Range/Units 04:45 04:20 04:20 WBC 3.1 L (4.8-10.8) K/uL RBC 2.32 L (3.80-5.20) Mil/uL Hgb 7.1 L (12.0-16.0) g/dL Hct 21.7 L (34.0-47.0) % MCV 93.4 (81.0-99.0) fl MCH 30.5 (27.0-31.0) pg MCHC 32.6 L (33.0-37.0) g/dL RDW 15.2 H (11.5-14.5) % Plt Count 76 L D (130-400) K/uL pCO2 36 (35-45) mm/Hg pO2 74 L (80-100) mm/Hg HCO3 28.6 H (21-28) mmol/L ABG pH 7.50 H (7.35-7.45) ABG Total CO2 29.2 H (22-28) mmol/L ABG O2 Saturation 97.7 (95-98) % ABG O2 Content 14.1 L (15-23) ML/dL ABG Base Excess 4.8 H (-2.0-3.0) mmol/L ABG Hemoglobin 10.5 L (11.7-17.4) g/dL ABG Carboxyhemoglobin 1.5 (0.5-1.5) % POC ABG HHb (Measured) 2.2 (0.0-5.0) % ABG Methemoglobin 1.5 (0.0-3.0) % ABG O2 Capacity 14.4 L (16-24) mL/dL Frederic Test Yes A-a O2 Difference 238.0 mm/Hg Hgb O2 Saturation 94.7 L (95.0-98.0) % Mechanical Rate 16 FiO2 50.0 % Tidal Volume 400 PEEP 5 Sodium 152 H (132-148) mmol/l Potassium 3.2 L (3.6-5.0) MMOL/L Chloride 119 H (98-107) mmol/L Carbon Dioxide 27 (22-30) mmol/L Anion Gap 9 L (10-20) BUN 72 H (7-17) mg/dl Creatinine 1.0 (0.7-1.2) mg/dl Est GFR ( Amer) > 60 Est GFR (Non-Af Amer) 57 Random Glucose 130 H (65-105) mg/dL Calcium 7.4 L (8.4-10.2) mg/dL Total Bilirubin 0.5 (0.2-1.3) mg/dl AST 24 (14-36) U/L ALT 20 (9-52) U/L Alkaline Phosphatase 66 (38-126) U/L Total Protein 5.2 L (6.3-8.2) G/DL Albumin 2.0 L (3.5-5.0) g/dL Globulin 3.2 (2.2-3.9) gm/dL Albumin/Globulin Ratio 0.6 L (1.0-2.1) Laboratory Results - last 24 hr 09/27/18 09/27/18 09/27/18 04:20 04:20 04:45 WBC 3.1 L RBC 2.32 L Hgb 7.1 L Hct 21.7 L MCV 93.4 MCH 30.5 MCHC 32.6 L RDW 15.2 H Plt Count 76 L D pCO2 36 pO2 74 L HCO3 28.6 H ABG pH 7.50 H ABG Total CO2 29.2 H ABG O2 Saturation 97.7 ABG O2 Content 14.1 L ABG Base Excess 4.8 H ABG Hemoglobin 10.5 L ABG Carboxyhemoglobin 1.5 POC ABG HHb (Measured) 2.2 ABG Methemoglobin 1.5 ABG O2 Capacity 14.4 L Frederic Test Yes A-a O2 Difference 238.0 Hgb O2 Saturation 94.7 L Mechanical Rate 16 FiO2 50.0 Tidal Volume 400 PEEP 5 Sodium 152 H Potassium 3.2 L Chloride 119 H Carbon Dioxide 27 Anion Gap 9 L BUN 72 H Creatinine 1.0 Est GFR ( Amer) > 60 Est GFR (Non-Af Amer) 57 Random Glucose 130 H Calcium 7.4 L Total Bilirubin 0.5 AST 24 ALT 20 Alkaline Phosphatase 66 Total Protein 5.2 L Albumin 2.0 L Globulin 3.2 Albumin/Globulin Ratio 0.6 L Radiology Impressions: Radiology Impressions Chest X-Ray 09/27/18 05:00 IMPRESSION: Persistent perihilar and left lower lobe infiltrate with trace bilateral pleural effusions again evident. ET tube slightly retracted terminating at 1 cm above the loren.
--- NOTE | 2018-09-27 21:26 | CP.PCM.PN ---
Subjective - Date & Time of Evaluation Date of Evaluation: 09/27/18 Time of Evaluation: 18:00 - Subjective Subjective: Vented opens eyes Objective - Vital Signs/Intake and Output Vital Signs (last 24 hours): Temp Pulse Resp BP Pulse Ox 98.1 F 119 H 16 101/57 L 100 09/27/18 20:00 09/27/18 21:00 09/27/18 21:00 09/27/18 21:00 09/27/18 21:00 Intake and Output: 09/27/18 09/28/18 18:59 06:59 Intake Total 925 200 Output Total 300 Balance 625 200 - Medications Medications: Current Medications Allopurinol (Zyloprim) 100 mg NG DAILY [facility] Last Admin: 09/27/18 08:16 Dose: 100 mg Apixaban (Eliquis) 5 mg PO BID [facility]; Protocol Last Admin: 09/06/18 17:08 Dose: Not Given Fluconazole (Diflucan Iv 100 Mg/50 Ml Ns) 50 mls @ 50 mls/hr IVPB DAILY [facility]; Protocol Last Admin: 09/27/18 10:11 Dose: 50 mls/hr Meropenem 1 gm/ Sodium (Chloride) 100 mls @ 100 mls/hr IVPB Q8 [facility]; Protocol Last Admin: 09/27/18 16:13 Dose: 100 mls/hr Norepinephrine Bitartrate 8 mg (/ Dextrose) 258 mls @ 14.51 mls/hr IV .[id number]; Protocol Stop: 09/27/18 21:54 Last Admin: 09/27/18 10:10 Dose: 7.5 mcg/min, 14.51 mls/hr Metoprolol Tartrate (Lopressor) 12.5 mg PO Q12 [facility] Last Admin: 09/06/18 21:59 Dose: Not Given Pantoprazole Sodium (Protonix Inj) 40 mg IVP DAILY [facility] Last Admin: 09/27/18 08:16 Dose: 40 mg - Labs Labs: 09/27/18 04:20 09/27/18 04:20 PT 13.3 Seconds (9.8-13.1) H 09/20/18 16:15 INR 1.2 09/20/18 16:15 APTT 26.7 Seconds (25.6-37.1) 09/20/18 16:15 - Head Exam Head Exam: ATRAUMATIC - Eye Exam Eye Exam: Normal appearance - ENT Exam ENT Exam: Mucous Membranes Dry - Respiratory Exam Respiratory Exam: Decreased Breath Sounds - Cardiovascular Exam Cardiovascular Exam: +S1, +S2 - GI/Abdominal Exam GI & Abdominal Exam: Normal Bowel Sounds - Extremities Exam Extremities Exam: Pedal Edema Assessment and Plan (1) Pancytopenia Assessment & Plan: secondary to chemotherapy blood loss - vaginal/hematuria; possible IR uterine embolization plt count improved transfusion support PRN Status: Acute (2) Pulmonary embolism Assessment & Plan: unable to anticoagulate due to blood loss Status: Acute (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 Wishes full code and agreeable to trach + PEG Status: Acute
[2018-09-28] MEDS: Meropenem 1 GM in Sodium Chloride 0.9% 100 ML IVPB SCH ×3 (00:13→16:35)
[2018-09-28 04:24] LABS: ABG ALLEN TEST YES; ARTERIAL BLOOD GAS HCO3 29.9 mmol/L (21-28); ARTERIAL BLOOD GAS O2 CAPACITY 9.8 mL/dL (16-24); ARTERIAL BLOOD GAS O2 CONTENT 9.7 ML/dL (15-23); ARTERIAL BLOOD GAS O2 SAT 98.9 % (95-98); ARTERIAL BLOOD GAS PCO2 41 mm/Hg (35-45); ARTERIAL BLOOD GAS PH 7.48 (7.35-7.45); ARTERIAL BLOOD GAS PO2 108 mm/Hg (80-100); ARTERIAL BLOOD GAS TCO2 31.8 mmol/L (22-28)
[2018-09-28 05:26] LABS: BASO % 0.5 % (0.0-2.0); EOS % 0.5 % (0.0-4.0); HEMOGLOBIN 6.9 g/dL (12.0-16.0); LYMPH # 0.9 K/uL (1.0-4.3); LYMPH % 29.1 % (20.0-40.0); MEAN CELL VOLUME 92.5 fl (81.0-99.0); MEAN CORPUSCULAR HEMOGLOBIN 30.6 pg (27.0-31.0); MEAN CORPUSCULAR HGB CONC 33.1 g/dL (33.0-37.0); MEAN PLATELET VOLUME 10.9 fl (7.2-11.7); MONO # 0.1 K/uL (0.0-0.8); MONO % 4.7 % (0.0-10.0); NEUT % 65.2 % (50.0-75.0); NRBC % 0.3 % (0.0-0.0); RBC 2.24 Mil/uL (3.80-5.20); RED CELL DISTRIBUTION WIDTH 15.2 % (11.5-14.5)
[2018-09-28 05:29] LABS: INR 1.4; PROTHROMBIN TIME 15.7 Seconds (9.8-13.1)
[2018-09-28 05:32] LABS: PARTIAL THROMBOPLASTIN TIME 28.2 Seconds (25.6-37.1)
[2018-09-28 05:37] LABS: ALB/GLOB RATIO 0.7 (1.0-2.1); ALBUMIN 2.2 g/dL (3.5-5.0); ALT/SGPT 29 U/L (9-52); AST/SGOT 24 U/L (14-36); BLOOD UREA NITROGEN 73 mg/dl (7-17); CALCIUM 7.5 mg/dL (8.4-10.2); GFR NON-AFRICAN AMERICAN > 60
[2018-09-28] MEDS: Potassium Chloride 40 MEQ in Dextrose 5%/Lactated Ringer's 1,000 ML IV SCH ×2 (08:24→22:34)
--- NOTE | 2018-09-28 10:40 | CP.PCM.PN ---
Subjective - Date & Time of Evaluation Date of Evaluation: 09/28/18 Time of Evaluation: 10:40 - Subjective Subjective: ID Note- Patient seen and examined todayin ICU. remains intubated . continues to have fevers most likely secondary to the tumor burden . Objective - Vital Signs/Intake and Output Vital Signs (last 24 hours): Temp Pulse Resp BP Pulse Ox 99.7 F H 118 H 16 98/59 L 100 09/28/18 08:00 09/28/18 10:00 09/28/18 10:00 09/28/18 10:00 09/28/18 10:00 Intake and Output: 09/28/18 09/28/18 06:59 18:59 Intake Total 500 580 Output Total 715 Balance -215 580 - Medications Medications: Current Medications Allopurinol (Zyloprim) 100 mg NG DAILY [facility] Last Admin: 09/27/18 08:16 Dose: 100 mg Apixaban (Eliquis) 5 mg PO BID [facility]; Protocol Last Admin: 09/06/18 17:08 Dose: Not Given Fluconazole (Diflucan Iv 100 Mg/50 Ml Ns) 50 mls @ 50 mls/hr IVPB DAILY GLAD[facility]; Protocol Last Admin: 09/27/18 10:11 Dose: 50 mls/hr Meropenem 1 gm/ Sodium (Chloride) 100 mls @ 100 mls/hr IVPB Q8 [facility]ADIS; Protocol Last Admin: 09/28/18 08:49 Dose: 100 mls/hr Potassium Chloride 40 meq/ (Dextrose/Lactated Ringer's) 1,020 mls @ 80 mls/hr IV .[id number] [facility] Stop: 09/29/18 06:55 Last Admin: 09/28/18 08:24 Dose: 80 mls/hr Metoprolol Tartrate (Lopressor) 12.5 mg PO Q12 [facility] Last Admin: 09/06/18 21:59 Dose: Not Given Pantoprazole Sodium (Protonix Inj) 40 mg IVP DAILY [facility] Last Admin: 09/28/18 08:50 Dose: 40 mg - Labs Labs: - Additional Findings Additional findings: - Constitutional Appears: Chronically Ill Additional comments: intubated but awake - Eye Exam Eye Exam: PERRL - ENT Exam Additional comments: ET and OGT in place - Neck Exam Additional comments: supple - Respiratory Exam Additional comments: On the vent - Cardiovascular Exam Cardiovascular Exam: Tachycardia, +S1, +S2 - GI/Abdominal Exam Additional comments: distended hypoactive BS umbilical region with mass like lesion with denuded skin , no pus, bloody discharge scant only - Extremities Exam Additional comments: b/l 1+ edema in LE and left hand edema - Neurological Exam Additional comments: more alert and responds to some commands and opens her eyes when her name is called - Skin Additional comments: right breast entirely covered with fungating looking round erythematous lesions few have opened up and bleeding superfically - Additional Findings Additional findings: lines- ET and OG tube left chest mediport site clean, no erythema hardwick cath- draining dark urine rectal tube with brown soft stool Assessment and Plan (1) Acute respiratory failure with hypoxemia Status: Acute (2) Anemia Status: Acute (3) Breast CA Status: Acute (4) Tumor lysis syndrome Status: Acute (5) Thrombocytopenia Status: Acute (6) DVT of lower extremity, bilateral Status: Chronic (7) Adnexal mass Status: Acute - Assessment and Plan (Free Text) Assessment: A/P- 58 year old female with stage 4 metastatic inflamamtory breast cancer with 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 remains intubated opens her eyes when name is called. lethargic continues to have low grade fevers past few days despite antibiotics and antifungals and repeat cx have all been neg except some yeast in trach asp cx fevers could be secondary to tumor burden and the metastatic malignancy states CXR report noted. continues to have anemia and thrombocytopenia tumor lysis syndrome blood cx- 09/07/2018- neg x 8 trach asp cx- yeast stool c.diff- negative repeat UA- negative repeat urine cx- neg PLan- so far 13 days of vanco , has been held past 3 days secondary to high trough. can resume it today as trough was <15. check trough tomm am and if <15 can resume. advise to continue IV meropnem for broad spectrum gram negative coverage.day #19 continue with IV diflucan day #18 monitor absolute PMN and if becomes 500 or less needs to be on neutropenic precautions as well. critical care time spent 30 minutes. prognosis poor.
[2018-09-28] MEDS: Fluconazole IV 100mg/50 ml NS 50 ML IVPB SCH (11:36)
--- NOTE | 2018-09-28 12:27 | CP.CCUPN ---
CCU Subjective - Physician Review Subjective (Free Text): Remains off the need for sedation, on now low dose Levophed at 7.5 mcg dose, otherwise awake and non-distressed. Breathing up to 17 on AC 16, TV 400ml, 70% oxygen, PEEP 5. Temp spike 101.8 yesterday. SBPs 90s, HR 120s, 99% SPO2. Approx 1.7 liter positive fluid balance. Still bleeding from the vagina and hematuria noted. ROS: No other pertinent negs or positive on 10+ system review obtainable due to intubation. Other PMSFH: All other Nursing and physician documentation reviewed to date; no new pertinent info noted relevant to current medical problems. EXAM- HEENT: no icterus, pupils equal, 3 mm and reactive, no gaze preference NECK: no visible JVD, supple, carotids equal upstroke bilat/no bruits CHEST: decreased BS bases, no wheezes audible, bloody fluid drained dressing over R breast. Left chest portacath. HEART: regular, distant, tachy S1S2, no murmur audible, no rubs. ABD: soft, ++distention with ascites, no focal tenderness, BS hypoactive, dried necrotic lesion over umbilicus unchanged. Previous paracentesis puncture site still leaking ascitic fluid. EXT: ++ edema LEs, and arms +ulcer posterior R calf worse than L, no calf tenderness or palpable cords, distal pulses intact and symmetrical; still leaking ascitic fluid from previous R lateral paracentesis site several weeks ago. R Femoral TLC intact. NEURO: withdraws to pain stimuli, + tone SKIN: no rashes LABS: WBC= 3.0 HGB= 6.9 PLTs = 92K 7.48/41/108 Lactate = 1.1 Na= 153 K= 3.2 Cl= 114 HCO3= 30 BUN/Cr= 73/0.9 BS= 104 INR = 1.4, PTT normal CXR: (my interp)- ETT position OK above loren. Decreased lung volumes bilaterally. Unchanged bi-basilar; compressed lung volumes with LLL interstitial changes prominent. IMPRESSION / MAJOR PROBLEMS NOW: 1. Acute hypoxemic Resp Failure, 2 bilat multi-lobar pneumonia 2. Persistent vaginal Bleeding 3. Severe Sepsis with shock, 2 Pneumonia, r/o bacteremia 4. Acute on Chronic disease Anemia 5. h/o DVT- bilat CFV on Aug 5. 6. s/p Paracentesis Feb 5 for 2.5 liters PLAN: 1. NO PRBCs today unless she is more hypotensive or hypoxemic, Plts continue to improve. 2. Day # 27 on MV, Trach appears to be tentative for Mar 11. 3. No MV weans feasible with poor tolerance given lung compression from ascites; and needs repeat paracentesis. 4. Consulted IR for repeat Abd paracentesis. IR consultation for uterine embolization of persistent vaginal bleeding from pelvic/ uterine mass. 5. Juan / Vanco / Diflucan 6. Hypernatremia worse, increased free water to Q3H. Added D5W IVFs, too. Stop Lasix, see no benefit at this time, especially as she remains on Levophed. 7. K added to D5W IVFs, check Mag / phos levels. 8. No new Advance Directives from Mother, full aggressive care maintained as family requested.
[2018-09-28] MEDS ORDERED: Lidocaine Hydrochloride 1% 10 ML ONE (12:59)
--- NOTE | 2018-09-28 13:38 | RAD ---
Date of service: 09/28/2018 HISTORY: Pt intubated COMPARISON: 09/27/2018 FINDINGS: LUNGS: Nonspecific left parahilar opacity. Possible PLEURA: Pneumonia. Small left pleural effusion. No right pleural effusion. No pneumothorax. CARDIOVASCULAR: Normal heart size. Mild congestive change. ET tube in right mainstem bronchus and should be repositioned more proximally. Normal cardiac size. Left central venous infusion port. OSSEOUS STRUCTURES: No significant abnormalities. VISUALIZED UPPER ABDOMEN: Normal. OTHER FINDINGS: None. IMPRESSION: Endotracheal tube tip in proximal right mainstem bronchus and should be withdrawn several cm. This was discussed by telephone with an ICU nurse, Low, by telephone at 1:30 p.m. on 09/28/2018. Small left pleural effusion. Left parahilar opacity. Possible pneumonia.
--- NOTE | 2018-09-28 13:49 | PCM.SURG1 ---
Surgeon's Initial Post Op Note - Surgeon's Notes Surgeon: Serg Garcia MD Pile Driving Nozzleman: NONE Type of Anesthesia: Local Pre-Operative Diagnosis: Ascites Operative Findings: US showed a large amount of ascites Post-Operative Diagnosis: Ascites, metastatic breast cancer, venitilatory failure Operation Performed: US guided paracentesis Specimen/Specimens Removed: 3.6 liters of serosanguinous fluid Estimated Blood Loss: EBL {In ML}: 0 Blood Products Given: N/A Drains Used: No Drains Post-Op Condition: Poor Date of Surgery/Procedure: 09/28/18 Time of Surgery/Procedure: 13:45
[2018-09-28] MEDS: Phenylephrine 30 MG in Sodium Chloride 0.9% 250 ML IV SCH (16:36)
--- NOTE | 2018-09-28 17:23 | CP.PCM.PN ---
Subjective - Date & Time of Evaluation Date of Evaluation: 09/28/18 Time of Evaluation: 15:00 - Subjective Subjective: SEEN ON RENAL F/U IN ICU REMAINS INTUBATED S/P PARACENTHESIS 3.5 L STILL WITH PRE RENAL AZOTEMIA AND HYPER NATREMIA ALL PREVIOUS EMR REVIEWED Objective - Vital Signs/Intake and Output Vital Signs (last 24 hours): Temp Pulse Resp BP Pulse Ox 99.9 F H 111 H 17 97/49 L 100 09/28/18 16:00 09/28/18 16:00 09/28/18 16:00 09/28/18 16:00 09/28/18 16:00 Intake and Output: 09/28/18 09/28/18 06:59 18:59 Intake Total 500 1530 Output Total 715 3600 Balance -215 -2070 - Medications Medications: Current Medications Allopurinol (Zyloprim) 100 mg NG DAILY [facility] Last Admin: 09/27/18 08:16 Dose: 100 mg Apixaban (Eliquis) 5 mg PO BID [facility]; Protocol Last Admin: 09/06/18 17:08 Dose: Not Given Fluconazole (Diflucan Iv 100 Mg/50 Ml Ns) 50 mls @ 50 mls/hr IVPB DAILY [facility]; Protocol Last Admin: 09/28/18 11:36 Dose: 50 mls/hr Meropenem 1 gm/ Sodium (Chloride) 100 mls @ 100 mls/hr IVPB Q8 [facility]; Protocol Last Admin: 09/28/18 16:35 Dose: 100 mls/hr Potassium Chloride 40 meq/ (Dextrose/Lactated Ringer's) 1,020 mls @ 80 mls/hr IV .[id number] [facility] Stop: 09/29/18 06:55 Last Admin: 09/28/18 08:24 Dose: 80 mls/hr Phenylephrine HCl 30 mg/ (Sodium Chloride) 253 mls @ 10.12 mls/hr IV .Q24H [facility]; Protocol Stop: 09/29/18 14:31 Last Admin: 09/28/18 16:36 Dose: 20 mcg/min, 10.12 mls/hr Vancomycin HCl 500 mg/ Sodium (Chloride) 100 mls @ 100 mls/hr IVPB Q12 [facility]; Protocol Metoprolol Tartrate (Lopressor) 12.5 mg PO Q12 [facility] Last Admin: 09/06/18 21:59 Dose: Not Given Midodrine (Proamatine) 5 mg GT TID [facility] Last Admin: 09/28/18 16:34 Dose: 5 mg Pantoprazole Sodium (Protonix Inj) 40 mg IVP DAILY [facility] Last Admin: 09/28/18 08:50 Dose: 40 mg - Labs Labs: 09/28/18 04:45 09/28/18 04:45 PT 15.7 Seconds (9.8-13.1) H 09/28/18 04:45 INR 1.4 09/28/18 04:45 APTT 28.2 Seconds (25.6-37.1) 09/28/18 04:45 Assessment and Plan - Assessment and Plan (Free Text) Assessment: PRE RENAL AZOTEMIA HYPER NATREMIA MMP VDRF P : DISSOLVE ALL IV MEDS IN D5W COMPATIBLE C/O PRESENT CCARE
[2018-09-29] MEDS: Meropenem 1 GM in Sodium Chloride 0.9% 100 ML IVPB SCH ×3 (01:27→16:11)
[2018-09-29] MEDS: Phenylephrine 30 MG in Sodium Chloride 0.9% 250 ML IV SCH ×3 (02:40→11:43)
--- NOTE | 2018-09-29 02:45 | CP.PCM.PN ---
Subjective - Date & Time of Evaluation Date of Evaluation: 09/27/18 Time of Evaluation: 19:15 - Subjective Subjective: Seen and examined at the bed side. Patient continue to decline. Anasarca, continue to be intubated and unresponsive. NOK refused DNR/DNI and end of lefe care. Unstable to discharge as patient is on Pressors, and will need G-Tube to send her even to long Acute Care Facility. Patient is MOF, Septic and Cardiogenic shock with Severe Cardiomyopathy, Anemia, Thrombo-cytopenia, Active bleeding, Stage IV Malignancy and extensive rashes. S/P Tracheostomy. Objective - Vital Signs/Intake and Output Vital Signs (last 24 hours): Temp Pulse Resp BP Pulse Ox 99.5 F 109 H 16 90/44 L 100 09/29/18 02:00 09/29/18 02:00 09/29/18 02:00 09/29/18 02:00 09/29/18 02:00 Intake and Output: 09/28/18 09/29/18 18:59 06:59 Intake Total 1805 1758 Output Total 4200 650 Balance -2395 1108 - Medications Medications: Current Medications Allopurinol (Zyloprim) 100 mg NG DAILY [facility] Last Admin: 09/27/18 08:16 Dose: 100 mg Apixaban (Eliquis) 5 mg PO BID [facility]; Protocol Last Admin: 09/06/18 17:08 Dose: Not Given Fluconazole (Diflucan Iv 100 Mg/50 Ml Ns) 50 mls @ 50 mls/hr IVPB DAILY [facility]; Protocol Last Admin: 09/28/18 11:36 Dose: 50 mls/hr Meropenem 1 gm/ Sodium (Chloride) 100 mls @ 100 mls/hr IVPB Q8 [facility]; Protocol Last Admin: 09/29/18 01:27 Dose: 100 mls/hr Potassium Chloride 40 meq/ (Dextrose/Lactated Ringer's) 1,020 mls @ 80 mls/hr IV .[id number] [facility] Stop: 09/29/18 06:55 Last Admin: 09/28/18 22:34 Dose: 80 mls/hr Phenylephrine HCl 30 mg/ (Sodium Chloride) 253 mls @ 10.12 mls/hr IV .Q24H [facility]; Protocol Stop: 09/29/18 14:31 Last Admin: 09/29/18 02:40 Dose: 110 mcg/min, 55.66 mls/hr Vancomycin HCl 500 mg/ Sodium (Chloride) 100 mls @ 100 mls/hr IVPB Q12 [facility]; Protocol Last Admin: 09/28/18 20:13 Dose: 100 mls/hr Metoprolol Tartrate (Lopressor) 12.5 mg PO Q12 [facility] Last Admin: 09/06/18 21:59 Dose: Not Given Midodrine (Proamatine) 5 mg GT TID [facility] Last Admin: 09/28/18 16:34 Dose: 5 mg Pantoprazole Sodium (Protonix Inj) 40 mg IVP DAILY [facility] Last Admin: 09/28/18 08:50 Dose: 40 mg - Labs Labs: 09/28/18 04:45 09/28/18 04:45 PT 15.7 Seconds (9.8-13.1) H 09/28/18 04:45 INR 1.4 09/28/18 04:45 APTT 28.2 Seconds (25.6-37.1) 09/28/18 04:45 Assessment and Plan (1) Acute respiratory failure with hypoxemia Status: Acute (2) Ascites, malignant Status: Acute (3) Congestive heart failure (CHF) Status: Acute (4) Stage IV breast cancer in female Status: Acute (5) Severe anemia Status: Resolved (6) DVT of lower extremity, bilateral Status: Chronic (7) Thrombocytopenia Status: Resolved
--- NOTE | 2018-09-29 02:46 | CP.PCM.PN ---
Subjective - Date & Time of Evaluation Date of Evaluation: 09/28/18 Time of Evaluation: 18:15 - Subjective Subjective: Seen and examined at the bed side. Patient continue to decline. Anasarca, continue to be intubated and unresponsive. NOK refused DNR/DNI and end of lefe care. Unstable to discharge as patient is on Pressors, and will need G-Tube to send her even to long Acute Care Facility. Patient is MOF, Septic and Cardiogenic shock with Severe Cardiomyopathy, Anemia, Thrombo-cytopenia, Active bleeding, Stage IV Malignancy and extensive rashes./P Tracheostomy, and MV. Objective - Vital Signs/Intake and Output Vital Signs (last 24 hours): Temp Pulse Resp BP Pulse Ox 99.5 F 109 H 16 90/44 L 100 09/29/18 02:00 09/29/18 02:00 09/29/18 02:00 09/29/18 02:00 09/29/18 02:00 Intake and Output: 09/28/18 09/29/18 18:59 06:59 Intake Total 1805 1758 Output Total 4200 650 Balance -2395 1108 - Medications Medications: Current Medications Allopurinol (Zyloprim) 100 mg NG DAILY [facility] Last Admin: 09/27/18 08:16 Dose: 100 mg Apixaban (Eliquis) 5 mg PO BID [facility]; Protocol Last Admin: 09/06/18 17:08 Dose: Not Given Fluconazole (Diflucan Iv 100 Mg/50 Ml Ns) 50 mls @ 50 mls/hr IVPB DAILY [facility]; Protocol Last Admin: 09/28/18 11:36 Dose: 50 mls/hr Meropenem 1 gm/ Sodium (Chloride) 100 mls @ 100 mls/hr IVPB Q8 [facility]; Protocol Last Admin: 09/29/18 01:27 Dose: 100 mls/hr Potassium Chloride 40 meq/ (Dextrose/Lactated Ringer's) 1,020 mls @ 80 mls/hr IV .[id number] [facility] Stop: 09/29/18 06:55 Last Admin: 09/28/18 22:34 Dose: 80 mls/hr Phenylephrine HCl 30 mg/ (Sodium Chloride) 253 mls @ 10.12 mls/hr IV .Q24H [facility]; Protocol Stop: 09/29/18 14:31 Last Admin: 09/29/18 02:40 Dose: 110 mcg/min, 55.66 mls/hr Vancomycin HCl 500 mg/ Sodium (Chloride) 100 mls @ 100 mls/hr IVPB Q12 [facility]; Protocol Last Admin: 09/28/18 20:13 Dose: 100 mls/hr Metoprolol Tartrate (Lopressor) 12.5 mg PO Q12 [facility] Last Admin: 09/06/18 21:59 Dose: Not Given Midodrine (Proamatine) 5 mg GT TID [facility] Last Admin: 09/28/18 16:34 Dose: 5 mg Pantoprazole Sodium (Protonix Inj) 40 mg IVP DAILY [facility] Last Admin: 09/28/18 08:50 Dose: 40 mg - Labs Labs: 09/28/18 04:45 09/28/18 04:45 PT 15.7 Seconds (9.8-13.1) H 09/28/18 04:45 INR 1.4 09/28/18 04:45 APTT 28.2 Seconds (25.6-37.1) 09/28/18 04:45 Assessment and Plan (1) Acute respiratory failure with hypoxemia Status: Acute (2) Ascites, malignant Status: Acute (3) Congestive heart failure (CHF) Status: Acute (4) Stage IV breast cancer in female Status: Acute (5) Severe anemia Status: Resolved (6) DVT of lower extremity, bilateral Status: Chronic (7) Thrombocytopenia Status: Resolved
[2018-09-29 05:30] LABS: ABG ALLEN TEST YES; ARTERIAL BLOOD GAS HEMOGLOBIN 6.4 g/dL (11.7-17.4); ARTERIAL BLOOD GAS O2 CAPACITY 9.2 mL/dL (16-24); ARTERIAL BLOOD GAS O2 CONTENT 9.1 ML/dL (15-23); ARTERIAL BLOOD GAS O2 SAT 99.2 % (95-98); ARTERIAL BLOOD GAS PCO2 42 mm/Hg (35-45); ARTERIAL BLOOD GAS PH 7.47 (7.35-7.45); ARTERIAL BLOOD GAS PO2 162 mm/Hg (80-100); ARTERIAL BLOOD GAS TCO2 31.9 mmol/L (22-28)
[2018-09-29 05:57] LABS: MEAN CELL VOLUME 93.7 fl (81.0-99.0); MEAN CORPUSCULAR HEMOGLOBIN 30.7 pg (27.0-31.0); MEAN CORPUSCULAR HGB CONC 32.8 g/dL (33.0-37.0); RBC 1.97 Mil/uL (3.80-5.20); RED CELL DISTRIBUTION WIDTH 15.1 % (11.5-14.5)
[2018-09-29 06:23] LABS: ALB/GLOB RATIO 0.7 (1.0-2.1); ALBUMIN 1.9 g/dL (3.5-5.0); ALT/SGPT 33 U/L (9-52); AST/SGOT 34 U/L (14-36); BLOOD UREA NITROGEN 63 mg/dl (7-17); CALCIUM 7.4 mg/dL (8.4-10.2); GFR NON-AFRICAN AMERICAN > 60
[2018-09-29] MEDS ORDERED: Potassium Chloride 20 mEq/15 ml LIQ UD NG ONE (07:16)
--- NOTE | 2018-09-29 07:55 | RAD ---
Date of service: 09/29/2018 HISTORY: vented COMPARISON: Portable chest 09/28/2018 4:30 a.m.. FINDINGS: LUNGS: Endotracheal tube terminates 2 cm above the loren in good apparent position. Left MediPort unchanged in position as well as orogastric tube. Slightly diminished left perihilar infiltrate. PLEURA: Mild left pleural effusion evident. Borderline right pleural effusion. No pneumothorax bilaterally. CARDIOVASCULAR: No aortic atherosclerotic calcification present. Stable cardiac silhouette. Limited pulmonary vascular congestion stable. OSSEOUS STRUCTURES: No significant abnormalities. VISUALIZED UPPER ABDOMEN: Normal. OTHER FINDINGS: None. IMPRESSION: Improvement in left perihilar infiltrate with mild pulmonary vascular congestion remaining. Mild left pleural effusion evident. Borderline right pleural effusion.
[2018-09-29] MEDS: Fluconazole IV 100mg/50 ml NS 50 ML IVPB SCH (09:07)
--- NOTE | 2018-09-29 09:30 | CP.PCM.PN ---
Subjective - Date & Time of Evaluation Date of Evaluation: 09/29/18 Time of Evaluation: 09:28 - Subjective Subjective: ID Note- Patient seen an dexamined today in ICU. remains intubated but opens her eyes and minimally responsive. new rash on her body as per stockroom inventory clerk her newest meds are midodrine and neosynephrine. a slo pt. s/p paracenthesis with 4 liter ascites fluid removal yesterday as per ICU doc. Objective - Vital Signs/Intake and Output Vital Signs (last 24 hours): Temp Pulse Resp BP Pulse Ox 100.2 F H 113 H 15 84/45 L 100 09/29/18 08:00 09/29/18 08:00 09/29/18 08:00 09/29/18 08:00 09/29/18 08:00 Intake and Output: 09/29/18 09/29/18 06:59 18:59 Intake Total 2618 253 Output Total 735 Balance 1883 253 - Medications Medications: Current Medications Allopurinol (Zyloprim) 100 mg NG DAILY [facility] Last Admin: 09/27/18 08:16 Dose: 100 mg Apixaban (Eliquis) 5 mg PO BID [facility]; Protocol Last Admin: 09/06/18 17:08 Dose: Not Given Fluconazole (Diflucan Iv 100 Mg/50 Ml Ns) 50 mls @ 50 mls/hr IVPB DAILY [facility]; Protocol Last Admin: 09/29/18 09:07 Dose: 50 mls/hr Meropenem 1 gm/ Sodium (Chloride) 100 mls @ 100 mls/hr IVPB Q8 [facility]; Protocol Last Admin: 09/29/18 09:06 Dose: 100 mls/hr Phenylephrine HCl 30 mg/ (Sodium Chloride) 253 mls @ 10.12 mls/hr IV .Q24H [facility]; Protocol Stop: 09/29/18 14:31 Last Titration: 09/29/18 08:02 Dose: 150 mcg/min, 75.9 mls/hr Vancomycin HCl 500 mg/ Sodium (Chloride) 100 mls @ 100 mls/hr IVPB Q12 [facility]; Protocol Last Admin: 09/29/18 09:06 Dose: 100 mls/hr Metoprolol Tartrate (Lopressor) 12.5 mg PO Q12 [facility] Last Admin: 09/06/18 21:59 Dose: Not Given Midodrine (Proamatine) 5 mg GT TID [facility] Last Admin: 09/29/18 09:05 Dose: 5 mg Pantoprazole Sodium (Protonix Inj) 40 mg IVP DAILY [facility] Last Admin: 09/29/18 09:05 Dose: 40 mg - Labs Labs: - Additional Findings Additional findings: - Constitutional Appears: Chronically Ill Additional comments: intubated but awake - Eye Exam Eye Exam: PERRL - ENT Exam Additional comments: ET and OGT in place - Neck Exam Additional comments: supple - Respiratory Exam Additional comments: On the vent - Cardiovascular Exam Cardiovascular Exam: Tachycardia, +S1, +S2 - GI/Abdominal Exam Additional comments: distended hypoactive BS umbilical region with mass like lesion with denuded skin , no pus, bloody discharge scant only - Extremities Exam Additional comments: b/l 1+ edema in LE and left hand edema - Neurological Exam Additional comments: more alert and responds to some commands and opens her eyes when her name is called - Skin Additional comments: right breast entirely covered with fungating looking round erythematous lesions few have opened up and bleeding superfically new macular rash all over torso and b/l arms and upper thighs and chest region. Laboratory Results - last 72 hr 09/27/18 09/27/18 09/27/18 04:20 04:20 04:45 WBC 3.1 L RBC 2.32 L Hgb 7.1 L Hct 21.7 L MCV 93.4 MCH 30.5 MCHC 32.6 L RDW 15.2 H Plt Count 76 L D MPV Neut % (Auto) Lymph % (Auto) [place] % (Auto) Eos % (Auto) Baso % (Auto) Neut # (Auto) Lymph # (Auto) [place] # (Auto) Eos # (Auto) Baso # (Auto) PT INR APTT pCO2 36 pO2 74 L HCO3 28.6 H ABG pH 7.50 H ABG Total CO2 29.2 H ABG O2 Saturation 97.7 ABG O2 Content 14.1 L ABG Base Excess 4.8 H ABG Hemoglobin 10.5 L ABG Carboxyhemoglobin 1.5 POC ABG HHb (Measured) 2.2 ABG Methemoglobin 1.5 ABG O2 Capacity 14.4 L Frederic Test Yes A-a O2 Difference 238.0 Hgb O2 Saturation 94.7 L Vent Mode Mechanical Rate 16 FiO2 50.0 Tidal Volume 400 PEEP 5 Crit Value Called To Crit Value Called By Crit Value Read Back Blood Gas Notified Time Sodium 152 H Potassium 3.2 L Chloride 119 H Carbon Dioxide 27 Anion Gap 9 L BUN 72 H Creatinine 1.0 Est GFR ( Amer) > 60 Est GFR (Non-Af Amer) 57 Random Glucose 130 H Lactic Acid Calcium 7.4 L Total Bilirubin 0.5 AST 24 ALT 20 Alkaline Phosphatase 66 Total Protein 5.2 L Albumin 2.0 L Globulin 3.2 Albumin/Globulin Ratio 0.6 L Vancomycin Trough Blood Type Antibody Screen Crossmatch BBK History Checked 09/28/18 09/28/18 09/28/18 03:59 04:45 04:45 WBC 3.0 L RBC 2.24 L Hgb 6.9 L Hct 20.7 L MCV 92.5 MCH 30.6 MCHC 33.1 RDW 15.2 H Plt Count 92 L MPV 10.9 Neut % (Auto) 65.2 Lymph % (Auto) 29.1 [place] % (Auto) 4.7 Eos % (Auto) 0.5 Baso % (Auto) 0.5 Neut # (Auto) 2.0 Lymph # (Auto) 0.9 L [place] # (Auto) 0.1 Eos # (Auto) 0.0 Baso # (Auto) 0.0 PT INR APTT pCO2 41 pO2 108 H HCO3 29.9 H ABG pH 7.48 H ABG Total CO2 31.8 H ABG O2 Saturation 98.9 H ABG O2 Content 9.7 L ABG Base Excess 6.4 H ABG Hemoglobin 7.0 L ABG Carboxyhemoglobin 0.9 POC ABG HHb (Measured) 1.1 ABG Methemoglobin 1.4 ABG O2 Capacity 9.8 L Frederic Test Yes A-a O2 Difference 340.0 Hgb O2 Saturation 96.5 Vent Mode A/c Mechanical Rate 16 FiO2 70.0 Tidal Volume 400 PEEP 5 Crit Value Called To Crit Value Called By Crit Value Read Back Blood Gas Notified Time Sodium Potassium Chloride Carbon Dioxide Anion Gap BUN Creatinine Est GFR ( Amer) Est GFR (Non-Af Amer) Random Glucose Lactic Acid Calcium Total Bilirubin AST ALT Alkaline Phosphatase Total Protein Albumin Globulin Albumin/Globulin Ratio Vancomycin Trough 14.8 H Blood Type Antibody Screen Crossmatch BBK History Checked 09/28/18 09/28/18 09/28/18 04:45 04:45 04:45 WBC RBC Hgb Hct MCV MCH MCHC RDW Plt Count MPV Neut % (Auto) Lymph % (Auto) [place] % (Auto) Eos % (Auto) Baso % (Auto) Neut # (Auto) Lymph # (Auto) [place] # (Auto) Eos # (Auto) Baso # (Auto) PT 15.7 H INR 1.4 APTT 28.2 pCO2 pO2 HCO3 ABG pH ABG Total CO2 ABG O2 Saturation ABG O2 Content ABG Base Excess ABG Hemoglobin ABG Carboxyhemoglobin POC ABG HHb (Measured) ABG Methemoglobin ABG O2 Capacity Frederic Test A-a O2 Difference Hgb O2 Saturation Vent Mode Mechanical Rate FiO2 Tidal Volume PEEP Crit Value Called To Crit Value Called By Crit Value Read Back Blood Gas Notified Time Sodium 153 H Potassium 3.2 L Chloride 114 H Carbon Dioxide 30 Anion Gap 12 BUN 73 H Creatinine 0.9 Est GFR ( Amer) > 60 Est GFR (Non-Af Amer) > 60 Random Glucose 104 Lactic Acid 1.1 Calcium 7.5 L Total Bilirubin 0.5 AST 24 ALT 29 Alkaline Phosphatase 59 Total Protein 5.2 L Albumin 2.2 L Globulin 3.0 Albumin/Globulin Ratio 0.7 L Vancomycin Trough Blood Type Antibody Screen Crossmatch BBK History Checked 09/29/18 09/29/18 09/29/18 04:52 05:00 05:00 WBC 4.0 L RBC 1.97 L Hgb 6.0 L* Hct 18.4 L MCV 93.7 MCH 30.7 MCHC 32.8 L RDW 15.1 H Plt Count 130 MPV Neut % (Auto) Lymph % (Auto) [place] % (Auto) Eos % (Auto) Baso % (Auto) Neut # (Auto) Lymph # (Auto) [place] # (Auto) Eos # (Auto) Baso # (Auto) PT INR APTT pCO2 42 pO2 162 H HCO3 30.0 H ABG pH 7.47 H ABG Total CO2 31.9 H ABG O2 Saturation 99.2 H ABG O2 Content 9.1 L ABG Base Excess 6.4 H ABG Hemoglobin 6.4 L ABG Carboxyhemoglobin 0.8 POC ABG HHb (Measured) 0.8 ABG Methemoglobin 1.6 ABG O2 Capacity 9.2 L Frederic Test Yes A-a O2 Difference 285.0 Hgb O2 Saturation 96.8 Vent Mode A/c Mechanical Rate 16 FiO2 70.0 Tidal Volume 400 PEEP 5 Crit Value Called To Kenisha ghosh rn Crit Value Called By 333 Crit Value Read Back Y Blood Gas Notified Time 530 Sodium 153 H Potassium 3.3 L Chloride 121 H Carbon Dioxide 30 Anion Gap 5 L BUN 63 H Creatinine 0.9 Est GFR ( Amer) > 60 Est GFR (Non-Af Amer) > 60 Random Glucose 109 H Lactic Acid Calcium 7.4 L Total Bilirubin 0.5 AST 34 ALT 33 Alkaline Phosphatase 60 Total Protein 4.5 L Albumin 1.9 L Globulin 2.6 Albumin/Globulin Ratio 0.7 L Vancomycin Trough Blood Type Antibody Screen Crossmatch BBK History Checked 09/29/18 08:20 WBC RBC Hgb Hct MCV MCH MCHC RDW Plt Count MPV Neut % (Auto) Lymph % (Auto) [place] % (Auto) Eos % (Auto) Baso % (Auto) Neut # (Auto) Lymph # (Auto) [place] # (Auto) Eos # (Auto) Baso # (Auto) PT INR APTT pCO2 pO2 HCO3 ABG pH ABG Total CO2 ABG O2 Saturation ABG O2 Content ABG Base Excess ABG Hemoglobin ABG Carboxyhemoglobin POC ABG HHb (Measured) ABG Methemoglobin ABG O2 Capacity Frederic Test A-a O2 Difference Hgb O2 Saturation Vent Mode Mechanical Rate FiO2 Tidal Volume PEEP Crit Value Called To Crit Value Called By Crit Value Read Back Blood Gas Notified Time Sodium Potassium Chloride Carbon Dioxide Anion Gap BUN Creatinine Est GFR ( Amer) Est GFR (Non-Af Amer) Random Glucose Lactic Acid Calcium Total Bilirubin AST ALT Alkaline Phosphatase Total Protein Albumin Globulin Albumin/Globulin Ratio Vancomycin Trough Blood Type A POSITIVE Antibody Screen Negative Crossmatch See Detail BBK History Checked Patient has bt Microbiology 09/25/18 12:10 Blood-Thru Central Line Blood Culture - Preliminary NO GROWTH AFTER 4 DAYS 09/20/18 14:00 Blood-Thru Central Line Blood Culture - Final NO GROWTH AFTER 5 DAYS 09/20/18 17:53 Trachasp Gram Stain - Final 09/20/18 17:53 Trachasp Sputum Culture - Final Yeast Species 09/20/18 17:53 Urine,Orellana Urine Culture - Final No Growth (<1,000 CFU/ML) 09/15/18 15:35 Blood-Thru Central Line Blood Culture - Final NO GROWTH AFTER 5 DAYS 09/15/18 15:35 Blood-Thru Central Line Gram Stain - Final TEST NOT PERFORMED 09/15/18 15:25 Blood-Thru Central Line Blood Culture - Final NO GROWTH AFTER 5 DAYS 09/15/18 15:25 Blood-Thru Central Line Gram Stain - Final TEST NOT PERFORMED 09/08/18 11:49 Blood-Venous Blood Culture - Final NO GROWTH AFTER 5 DAYS 09/08/18 11:49 Blood-Venous Gram Stain - Final TEST NOT PERFORMED 09/08/18 11:49 Blood-Venous Blood Culture - Final NO GROWTH AFTER 5 DAYS 09/08/18 11:49 Blood-Venous Gram Stain - Final TEST NOT PERFORMED 09/07/18 Unknown Blood-Thru Central Line Blood Culture - Final NO GROWTH AFTER 5 DAYS 09/07/18 Unknown Blood-Thru Central Line Gram Stain - Final TEST NOT PERFORMED 09/07/18 Unknown Blood-Thru Central Line Blood Culture - Final NO GROWTH AFTER 5 DAYS 09/07/18 Unknown Blood-Thru Central Line Gram Stain - Final TEST NOT PERFORMED 09/07/18 09:07 Trachasp Gram Stain - Final 09/07/18 09:07 Trachasp Sputum Culture - Final Yeast Species 09/04/18 11:25 Naris MRSA Culture (Admit) - Final MRSA NOT DETECTED 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 new rash c/w drug reaction rash could be secondary to midodrine d/w Ddr.To remains intubated opens her eyes when name is called. lethargic continues to have low grade fevers past few days despite antibiotics and antifungals and repeat cx have all been neg except some yeast in trach asp cx fevers could be secondary to tumor burden and the metastatic malignancy states CXR report noted improved. continues to have anemia and thrombocytopenia tumor lysis syndrome blood cx- 09/07/2018- neg x 8 trach asp cx- yeast stool c.diff- negative repeat UA- negative repeat urine cx- neg PLan- so far 14 days of vanco keep trough <15. advise to continue IV meropnem for broad spectrum gram negative coverage.day #20 continue with IV diflucan day #19 monitor absolute PMN and if becomes 500 or less needs to be on neutropenic precautions as well. may need to hold midodrine as it can cause rash. antihistamine or steroids for the rash as per ICU doc. critical care time spent 30 minutes. prognosis poor.
[2018-09-29] MEDS ORDERED: methylPREDNISolone 125 MG in Sodium Chloride 0.9% 50 ML IVPB ONE (12:13)
--- NOTE | 2018-09-29 12:37 | CP.CCUPN ---
CCU Subjective - Physician Review Subjective (Free Text): Nurse reports erythematous macular rash scattered over upper torso and extremities, not apparent this AM. No other adverse anaphylactic reactions noted involving BP levels, oxygenation, nor any wheezing, tongue swelling, or other upper / lower rhonchi. Medications reviewed, and newest addition to regimen is Midodrine which was started yesterday. Will stop this medication for now. IV Solumedrol and enteral Loratadine given. Remains off the need for sedation, on now Neosynephrine which was started yesterday due to excessive tachycardia from Levophed. Temps 99-100. SBPs 90s, HR 110s, 99% SPO2 after reduction to 50% oxygen from 70% Approx 0.5 liter negative fluid balance. Still bleeding from the vagina and hematuria noted, but not excessive. ROS: No other pertinent negs or positive on 10+ system review obtainable due to intubation. Other PMSFH: All other Nursing and physician documentation reviewed to date; no new pertinent info noted relevant to current medical problems. EXAM- HEENT: no icterus, pupils equal, 3 mm and reactive, no gaze preference NECK: no visible JVD, supple, carotids equal upstroke bilat/no bruits CHEST: decreased BS bases, no wheezes audible, bloody fluid drained dressing over R breast. Left chest portacath. HEART: regular, distant, tachy S1S2, no murmur audible, no rubs. ABD: soft, ++distention with ascites, no focal tenderness, BS hypoactive, dried necrotic lesion over umbilicus unchanged. Previous paracentesis puncture site still leaking ascitic fluid. EXT: ++ edema LEs, and arms +ulcer posterior R calf worse than L, no calf tenderness or palpable cords, distal pulses intact and symmetrical; still leaking ascitic fluid from previous R lateral paracentesis site several weeks ago. R Femoral TLC intact. NEURO: withdraws to pain stimuli, + tone SKIN: no rashes LABS: WBC= 4.0 HGB= 6.0 PLTs = 130K 7.47/42/162 Na= 153 K= 3.3 Cl= 121 HCO3= 30 BUN/Cr= 63/0.9 BS= 109 CXR: (my interp)- ETT position OK above loren. Improved lung volumes bilaterally. IMPRESSION / MAJOR PROBLEMS NOW: 1. Acute hypoxemic Resp Failure, 2 bilat multi-lobar pneumonia 2. Persistent vaginal Bleeding 3. Severe Sepsis with shock, 2 Pneumonia, r/o bacteremia 4. Acute on Chronic disease Anemia 5. h/o DVT- bilat CFV on Aug 5. 6. s/p Paracentesis Fe 5 for 2.5 liters, and repeated Sep 7 for 3.6 liters. PLAN: 1. 2 units PRBCs today, Plts continue to improve. Hopefully PRBCs will help wean down vasopressors with Phil at 150 mcg/min dose level now. 2. Over two weeks on MV, Trach appears to be tentative for Sep 11. 3. IR consultation for uterine embolization of persistent vaginal bleeding from pelvic / uterine mass. 4. Juan / Vanco / Diflucan 5. Hypernatremia worse, increased free water to Q3H. 6. No new Advance Directives from Mother, full aggressive care maintained as family requested. 7. May need 24H course of IV steroids to abort any further allergic reaction.
[2018-09-29] MEDS ORDERED: Phenylephrine 30 MG in Sodium Chloride 0.9% 250 ML IV SCH (15:00)
--- NOTE | 2018-09-29 15:25 | CP.PCM.PN ---
Subjective - Date & Time of Evaluation Date of Evaluation: 09/29/18 Time of Evaluation: 15:00 - Subjective Subjective: SEEN ON RENAL F/U IN ICU NO XHANGE IN CLINICAL CONDITION REMAINS INTUBATED REMAINS WITH PRE RENAL AZOTEMIA AND HYPER NATREMAI AND HYPO KALEMIA - Physician Review Subjective (Free Text): Nurse reports erythematous macular rash scattered over upper torso and extremities, not apparent this AM. No other adverse anaphylactic reactions noted involving BP levels, oxygenation, nor any wheezing, tongue swelling, or other upper / lower rhonchi. Medications reviewed, and newest addition to regimen is Midodrine which was started yesterday. Will stop this medication for now. IV Solumedrol and enteral Loratadine given. Remains off the need for sedation, on now Neosynephrine which was started yesterday due to excessive tachycardia from Levophed. Temps 99-100. SBPs 90s, HR 110s, 99% SPO2 after reduction to 50% oxygen from 70% Approx 0.5 liter negative fluid balance. Still bleeding from the vagina and hematuria noted, but not excessive. ROS: No other pertinent negs or positive on 10+ system review obtainable due to intubation. Other PMSFH: All other Nursing and physician documentation reviewed to date; no new pertinent info noted relevant to current medical problems. Objective - Vital Signs/Intake and Output Vital Signs (last 24 hours): Temp Pulse Resp BP Pulse Ox 100 F H 115 H 19 93/51 L 100 09/29/18 14:51 09/29/18 14:51 09/29/18 14:51 09/29/18 14:51 09/29/18 12:00 Intake and Output: 09/29/18 09/29/18 06:59 18:59 Intake Total 2618 2534 Output Total 735 325 Balance 1883 2209 - Medications Medications: Current Medications Allopurinol (Zyloprim) 100 mg NG DAILY [facility] Last Admin: 09/27/18 08:16 Dose: 100 mg Apixaban (Eliquis) 5 mg PO BID [facility]; Protocol Last Admin: 09/06/18 17:08 Dose: Not Given Fluconazole (Diflucan Iv 100 Mg/50 Ml Ns) 50 mls @ 50 mls/hr IVPB DAILY [facility]; Protocol Last Admin: 09/29/18 09:07 Dose: 50 mls/hr Meropenem 1 gm/ Sodium (Chloride) 100 mls @ 100 mls/hr IVPB Q8 [facility]; Protocol Last Admin: 09/29/18 09:06 Dose: 100 mls/hr Vancomycin HCl 500 mg/ Sodium (Chloride) 100 mls @ 100 mls/hr IVPB Q12 [facility]; Protocol Last Admin: 09/29/18 09:06 Dose: 100 mls/hr Phenylephrine HCl 30 mg/ (Sodium Chloride) 253 mls @ 40.48 mls/hr IV .Q6H15M [facility]; Protocol Stop: 09/30/18 15:03 Loratadine (Claritin) 10 mg PO DAILY [facility] Last Admin: 09/29/18 15:10 Dose: 10 mg Metoprolol Tartrate (Lopressor) 12.5 mg PO Q12 [facility] Last Admin: 09/06/18 21:59 Dose: Not Given Midodrine (Proamatine) 5 mg GT TID [facility] Last Admin: 09/29/18 09:05 Dose: 5 mg Pantoprazole Sodium (Protonix Inj) 40 mg IVP DAILY [facility] Last Admin: 09/29/18 09:05 Dose: 40 mg - Labs Labs: 09/29/18 05:00 09/29/18 05:00 PT 15.7 Seconds (9.8-13.1) H 09/28/18 04:45 INR 1.4 09/28/18 04:45 APTT 28.2 Seconds (25.6-37.1) 09/28/18 04:45 Assessment and Plan - Assessment and Plan (Free Text) Assessment: LOUIE .. PRE RENAL AZOTEMIA .. HYPER NATREMIA HYPOKALEMIA VDRF COAGULOPATHY MMP P : DISOLVE ALL IV MEDS IN D5W COMPATIBLE C/O PRESENT CARE C/O CURRENT MANAGEMENT
[2018-09-30 00:53] LABS: ABG ALLEN TEST YES; ARTERIAL BLOOD GAS HCO3 26.9 mmol/L (21-28); ARTERIAL BLOOD GAS HEMOGLOBIN 10.5 g/dL (11.7-17.4); ARTERIAL BLOOD GAS O2 CONTENT 10.3 ML/dL (15-23); ARTERIAL BLOOD GAS O2 SAT 73.4 % (95-98); ARTERIAL BLOOD GAS PCO2 46 mm/Hg (35-45); ARTERIAL BLOOD GAS PO2 35 mm/Hg (80-100); ARTERIAL BLOOD GAS TCO2 29.9 mmol/L (22-28)
--- NOTE | 2018-09-30 00:56 | CP.PCM.PN ---
Subjective - Date & Time of Evaluation Date of Evaluation: 09/29/18 Time of Evaluation: 20:15 - Subjective Subjective: Seen and examined at the bed side. Patient continue to decline. Anasarca, continue to be intubated and unresponsive. NOK refused DNR/DNI and end of lefe care. Unstable to discharge as patient is on Pressors, and will need G-Tube to send her even to long Acute Care Facility. Patient is MOF, Septic and Cardiogenic shock with Severe Cardiomyopathy, Anemia, Thrombo-cytopenia, Active bleeding, Stage IV Malignancy and extensive rashes. Objective - Vital Signs/Intake and Output Vital Signs (last 24 hours): Temp Pulse Resp BP Pulse Ox 100.4 F H 114 H 21 95/61 L 100 09/30/18 00:00 09/30/18 00:00 09/30/18 00:00 09/30/18 00:00 09/30/18 00:00 Intake and Output: 09/29/18 09/30/18 18:59 06:59 Intake Total 3549 710 Output Total 630 200 Balance 2919 510 - Medications Medications: Current Medications Allopurinol (Zyloprim) 100 mg NG DAILY [facility] Last Admin: 09/27/18 08:16 Dose: 100 mg Apixaban (Eliquis) 5 mg PO BID [facility]; Protocol Last Admin: 09/06/18 17:08 Dose: Not Given Fluconazole (Diflucan Iv 100 Mg/50 Ml Ns) 50 mls @ 50 mls/hr IVPB DAILY [facility]; Protocol Last Admin: 09/29/18 09:07 Dose: 50 mls/hr Meropenem 1 gm/ Sodium (Chloride) 100 mls @ 100 mls/hr IVPB Q8 [facility]; Protocol Last Admin: 09/29/18 16:11 Dose: 100 mls/hr Vancomycin HCl 500 mg/ Sodium (Chloride) 100 mls @ 100 mls/hr IVPB Q12 [facility]; Protocol Last Admin: 09/29/18 21:29 Dose: 100 mls/hr Norepinephrine Bitartrate 16 (mg/ Dextrose) 266 mls @ 2.49 mls/hr IV .Q24H [facility]; Protocol Stop: 09/30/18 15:27 Last Titration: 09/29/18 17:23 Dose: 5 mcg/min, 4.99 mls/hr Loratadine (Claritin) 10 mg PO DAILY [facility] Last Admin: 09/29/18 15:10 Dose: 10 mg Metoprolol Tartrate (Lopressor) 12.5 mg PO Q12 [facility] Last Admin: 09/06/18 21:59 Dose: Not Given Pantoprazole Sodium (Protonix Inj) 40 mg IVP DAILY [facility] Last Admin: 09/29/18 09:05 Dose: 40 mg - Labs Labs: 09/29/18 05:00 09/29/18 05:00 PT 15.7 Seconds (9.8-13.1) H 09/28/18 04:45 INR 1.4 09/28/18 04:45 APTT 28.2 Seconds (25.6-37.1) 09/28/18 04:45 Assessment and Plan (1) Acute respiratory failure with hypoxemia Status: Acute (2) Ascites, malignant Status: Acute (3) Congestive heart failure (CHF) Status: Acute (4) Stage IV breast cancer in female Status: Acute (5) Severe anemia Status: Resolved (6) DVT of lower extremity, bilateral Status: Chronic (7) Thrombocytopenia Status: Resolved
[2018-09-30] MEDS: Meropenem 1 GM in Sodium Chloride 0.9% 100 ML IVPB SCH ×3 (01:34→16:42)
[2018-09-30 03:53] LABS: ABG ALLEN TEST YES; ARTERIAL BLOOD GAS HCO3 28.5 mmol/L (21-28); ARTERIAL BLOOD GAS HEMOGLOBIN 9.1 g/dL (11.7-17.4); ARTERIAL BLOOD GAS O2 CAPACITY 12.5 mL/dL (16-24); ARTERIAL BLOOD GAS O2 CONTENT 12.5 ML/dL (15-23); ARTERIAL BLOOD GAS O2 SAT 99.7 % (95-98); ARTERIAL BLOOD GAS PCO2 28 mm/Hg (35-45); ARTERIAL BLOOD GAS PH 7.58 (7.35-7.45); ARTERIAL BLOOD GAS PO2 95 mm/Hg (80-100); ARTERIAL BLOOD GAS TCO2 27.2 mmol/L (22-28)
[2018-09-30 05:48] LABS: HEMOGLOBIN 8.8 g/dL (12.0-16.0); MEAN CORPUSCULAR HEMOGLOBIN 30.8 pg (27.0-31.0); MEAN CORPUSCULAR HGB CONC 33.4 g/dL (33.0-37.0); RBC 2.86 Mil/uL (3.80-5.20); RED CELL DISTRIBUTION WIDTH 14.6 % (11.5-14.5); WHITE BLOOD COUNT 6.1 K/uL (4.8-10.8)
[2018-09-30 06:05] LABS: ALB/GLOB RATIO 0.7 (1.0-2.1); ALBUMIN 2.1 g/dL (3.5-5.0); ALT/SGPT 44 U/L (9-52); AST/SGOT 54 U/L (14-36); BLOOD UREA NITROGEN 63 mg/dl (7-17); CALCIUM 7.5 mg/dL (8.4-10.2); GFR NON-AFRICAN AMERICAN > 60
--- NOTE | 2018-09-30 09:20 | RAD ---
Date of service: 09/30/2018 HISTORY: vented COMPARISON: 09/29/2018 FINDINGS: LUNGS: Bilateral interstitial infiltrates. PLEURA: Cannot exclude bilateral pleural effusions. CARDIOVASCULAR: No aortic atherosclerotic calcification present. Cardiomegaly. No pulmonary vascular congestion. OSSEOUS STRUCTURES: No significant abnormalities. VISUALIZED UPPER ABDOMEN: Normal. OTHER FINDINGS: Tubes and catheters unchanged. IMPRESSION: CHF.
[2018-09-30] MEDS: Fluconazole IV 100mg/50 ml NS 50 ML IVPB SCH (09:54)
--- NOTE | 2018-09-30 11:15 | CP.PCM.PN ---
Subjective - Date & Time of Evaluation Date of Evaluation: 09/30/18 Time of Evaluation: 11:15 - Subjective Subjective: ID Note- Patient seen and examined today in ICU. pt. remains intubated but she is awake and responds to questions. her midodrine and neosinephrine were d/c by the Records Coordinator yesterday to see if her rash wound improve and she is on levophed now as per nurse report. pt. denies any itching . Objective - Vital Signs/Intake and Output Vital Signs (last 24 hours): Temp Pulse Resp BP Pulse Ox 98.1 F 123 H 22 100/61 100 09/30/18 08:00 09/30/18 09:00 09/30/18 09:00 09/30/18 09:00 09/30/18 09:00 Intake and Output: 09/30/18 09/30/18 06:59 18:59 Intake Total 1420 84 Output Total 660 Balance 760 84 - Medications Medications: Current Medications Allopurinol (Zyloprim) 100 mg NG DAILY [facility] Last Admin: 09/27/18 08:16 Dose: 100 mg Apixaban (Eliquis) 5 mg PO BID GLADIS; Protocol Last Admin: 09/06/18 17:08 Dose: Not Given Fluconazole (Diflucan Iv 100 Mg/50 Ml Ns) 50 mls @ 50 mls/hr IVPB DAILY [facility]; Protocol Last Admin: 09/30/18 09:54 Dose: 50 mls/hr Meropenem 1 gm/ Sodium (Chloride) 100 mls @ 100 mls/hr IVPB Q8 [facility]; Protocol Last Admin: 09/30/18 09:56 Dose: 100 mls/hr Vancomycin HCl 500 mg/ Sodium (Chloride) 100 mls @ 100 mls/hr IVPB Q12 [facility]; Pr otocol Last Admin: 09/29/18 21:29 Dose: 100 mls/hr Norepinephrine Bitartrate 16 (mg/ Dextrose) 266 mls @ 2.49 mls/hr IV .Q24H ONE; Protocol Stop: 09/30/18 15:27 Last Titration: 09/29/18 19:00 Dose: 7.5 mcg/min, 7.48 mls/hr Loratadine (Claritin) 10 mg PO DAILY [facility]IS Last Admin: 09/30/18 09:54 Dose: 10 mg Metoprolol Tartrate (Lopressor) 12.5 mg PO Q12 [facility] Last Admin: 09/06/18 21:59 Dose: Not Given Pantoprazole Sodium (Protonix Inj) 40 mg IVP DAILY [facility] Last Admin: 09/30/18 10:03 Dose: 40 mg - Labs Labs: - Additional Findings Additional findings: - Constitutional Appears: Chronically Ill Additional comments: intubated but awake - Eye Exam Eye Exam: PERRL - ENT Exam Additional comments: ET and OGT in place - Neck Exam Additional comments: supple - Respiratory Exam Additional comments: On the vent - Cardiovascular Exam Cardiovascular Exam: Tachycardia, +S1, +S2 - GI/Abdominal Exam Additional comments: distended hypoactive BS umbilical region with mass like lesion with denuded skin , no pus, bloody discharge scant only - Extremities Exam Additional comments: b/l 1+ edema in LE and left hand edema - Neurological Exam Additional comments: more alert and responds to questions by nodding yes or no. - Skin Additional comments: right breast entirely covered with fungating looking round erythematous lesions . new macular rash all over torso and b/l arms and upper thighs and chest region and has moved up to her face and her eyelids as well but the rash on the torso and extremities is less intense today . Laboratory Results - last 72 hr 09/28/18 09/28/18 09/28/18 03:59 04:45 04:45 WBC 3.0 L RBC 2.24 L Hgb 6.9 L Hct 20.7 L MCV 92.5 MCH 30.6 MCHC 33.1 RDW 15.2 H Plt Count 92 L MPV 10.9 Neut % (Auto) 65.2 Lymph % (Auto) 29.1 Brown % (Auto) 4.7 Eos % (Auto) 0.5 Baso % (Auto) 0.5 Neut # (Auto) 2.0 Lymph # (Auto) 0.9 L Brown # (Auto) 0.1 Eos # (Auto) 0.0 Baso # (Auto) 0.0 PT INR APTT pCO2 41 pO2 108 H HCO3 29.9 H ABG pH 7.48 H ABG Total CO2 31.8 H ABG O2 Saturation 98.9 H ABG O2 Content 9.7 L ABG Base Excess 6.4 H ABG Hemoglobin 7.0 L ABG Carboxyhemoglobin 0.9 POC ABG HHb (Measured) 1.1 ABG Methemoglobin 1.4 ABG O2 Capacity 9.8 L Frederic Test Yes A-a O2 Difference 340.0 Hgb O2 Saturation 96.5 Vent Mode A/c Mechanical Rate 16 FiO2 70.0 Tidal Volume 400 PEEP 5 Crit Value Called To Crit Value Called By Crit Value Read Back Blood Gas Notified Time Sodium Potassium Chloride Carbon Dioxide Anion Gap BUN Creatinine Est GFR ( Amer) Est GFR (Non-Af Amer) Random Glucose Lactic Acid Calcium Total Bilirubin AST ALT Alkaline Phosphatase Ammonia Total Protein Albumin Globulin Albumin/Globulin Ratio Vancomycin Trough 14.8 H Blood Type Antibody Screen Crossmatch BBK History Checked 09/28/18 09/28/18 09/28/18 04:45 04:45 04:45 WBC RBC Hgb Hct MCV MCH MCHC RDW Plt Count MPV Neut % (Auto) Lymph % (Auto) Brown % (Auto) Eos % (Auto) Baso % (Auto) Neut # (Auto) Lymph # (Auto) Brown # (Auto) Eos # (Auto) Baso # (Auto) PT 15.7 H INR 1.4 APTT 28.2 pCO2 pO2 HCO3 ABG pH ABG Total CO2 ABG O2 Saturation ABG O2 Content ABG Base Excess ABG Hemoglobin ABG Carboxyhemoglobin POC ABG HHb (Measured) ABG Methemoglobin ABG O2 Capacity Frederic Test A-a O2 Difference Hgb O2 Saturation Vent Mode Mechanical Rate FiO2 Tidal Volume PEEP Crit Value Called To Crit Value Called By Crit Value Read Back Blood Gas Notified Time Sodium 153 H Potassium 3.2 L Chloride 114 H Carbon Dioxide 30 Anion Gap 12 BUN 73 H Creatinine 0.9 Est GFR ( Amer) > 60 Est GFR (Non-Af Amer) > 60 Random Glucose 104 Lactic Acid 1.1 Calcium 7.5 L Total Bilirubin 0.5 AST 24 ALT 29 Alkaline Phosphatase 59 Ammonia Total Protein 5.2 L Albumin 2.2 L Globulin 3.0 Albumin/Globulin Ratio 0.7 L Vancomycin Trough Blood Type Antibody Screen Crossmatch BBK History Checked 09/29/18 09/29/18 09/29/18 04:52 05:00 05:00 WBC 4.0 L RBC 1.97 L Hgb 6.0 L* Hct 18.4 L MCV 93.7 MCH 30.7 MCHC 32.8 L RDW 15.1 H Plt Count 130 MPV Neut % (Auto) Lymph % (Auto) Brown % (Auto) Eos % (Auto) Baso % (Auto) Neut # (Auto) Lymph # (Auto) Brown # (Auto) Eos # (Auto) Baso # (Auto) PT INR APTT pCO2 42 pO2 162 H HCO3 30.0 H ABG pH 7.47 H ABG Total CO2 31.9 H ABG O2 Saturation 99.2 H ABG O2 Content 9.1 L ABG Base Excess 6.4 H ABG Hemoglobin 6.4 L ABG Carboxyhemoglobin 0.8 POC ABG HHb (Measured) 0.8 ABG Methemoglobin 1.6 ABG O2 Capacity 9.2 L Frederic Test Yes A-a O2 Difference 285.0 Hgb O2 Saturation 96.8 Vent Mode A/c Mechanical Rate 16 FiO2 70.0 Tidal Volume 400 PEEP 5 Crit Value Called To Kenisha ghosh rn Crit Value Called By 333 Crit Value Read Back Y Blood Gas Notified Time 530 Sodium 153 H Potassium 3.3 L Chloride 121 H Carbon Dioxide 30 Anion Gap 5 L BUN 63 H Creatinine 0.9 Est GFR ( Amer) > 60 Est GFR (Non-Af Amer) > 60 Random Glucose 109 H Lactic Acid Calcium 7.4 L Total Bilirubin 0.5 AST 34 ALT 33 Alkaline Phosphatase 60 Ammonia Total Protein 4.5 L Albumin 1.9 L Globulin 2.6 Albumin/Globulin Ratio 0.7 L Vancomycin Trough Blood Type Antibody Screen Crossmatch BBK History Checked 09/29/18 09/30/18 09/30/18 08:20 00:48 01:00 WBC RBC Hgb Hct MCV MCH MCHC RDW Plt Count MPV Neut % (Auto) Lymph % (Auto) Brown % (Auto) Eos % (Auto) Baso % (Auto) Neut # (Auto) Lymph # (Auto) Brown # (Auto) Eos # (Auto) Baso # (Auto) PT INR APTT pCO2 46 H pO2 35 L* HCO3 26.9 ABG pH 7.40 ABG Total CO2 29.9 H ABG O2 Saturation 73.4 L ABG O2 Content 10.3 L ABG Base Excess 3.2 H ABG Hemoglobin 10.5 L ABG Carboxyhemoglobin 3.2 H POC ABG HHb (Measured) 25.3 H ABG Methemoglobin 1.7 ABG O2 Capacity 14.0 L Frederic Test Yes A-a O2 Difference 264.0 Hgb O2 Saturation 69.8 L Vent Mode A/c Mechanical Rate 12 FiO2 50.0 Tidal Volume 400 PEEP 5 Crit Value Called To Madisyn montiel Crit Value Called By Chauncey fuentes rt Crit Value Read Back Y Blood Gas Notified Time 52 Sodium Potassium Chloride Carbon Dioxide Anion Gap BUN Creatinine Est GFR ( Amer) Est GFR (Non-Af Amer) Random Glucose Lactic Acid Calcium Total Bilirubin AST ALT Alkaline Phosphatase Ammonia 14 Total Protein Albumin Globulin Albumin/Globulin Ratio Vancomycin Trough Blood Type A POSITIVE Antibody Screen Negative Crossmatch See Detail BBK History Checked Patient has bt 09/30/18 09/30/18 09/30/18 03:43 04:45 04:45 WBC 6.1 D RBC 2.86 L Hgb 8.8 L D Hct 26.4 L MCV 92.0 MCH 30.8 MCHC 33.4 RDW 14.6 H Plt Count 112 L MPV Neut % (Auto) Lymph % (Auto) Brown % (Auto) Eos % (Auto) Baso % (Auto) Neut # (Auto) Lymph # (Auto) Brown # (Auto) Eos # (Auto) Baso # (Auto) PT INR APTT pCO2 28 L pO2 95 HCO3 28.5 H ABG pH 7.58 H ABG Total CO2 27.2 ABG O2 Saturation 99.7 H ABG O2 Content 12.5 L ABG Base Excess 4.6 H ABG Hemoglobin 9.1 L ABG Carboxyhemoglobin 1.8 H POC ABG HHb (Measured) 0.3 ABG Methemoglobin 1.4 ABG O2 Capacity 12.5 L Frederic Test Yes A-a O2 Difference 227.0 Hgb O2 Saturation 96.5 Vent Mode A/c Mechanical Rate 12 FiO2 50.0 Tidal Volume 400 PEEP 5 Crit Value Called To Crit Value Called By Crit Value Read Back Blood Gas Notified Time Sodium Potassium Chloride Carbon Dioxide Anion Gap BUN Creatinine Est GFR ( Amer) Est GFR (Non-Af Amer) Random Glucose Lactic Acid Calcium Total Bilirubin AST ALT Alkaline Phosphatase Ammonia Total Protein Albumin Globulin Albumin/Globulin Ratio Vancomycin Trough 18.9 H Blood Type Antibody Screen Crossmatch BBK History Checked 09/30/18 04:45 WBC RBC Hgb Hct MCV MCH MCHC RDW Plt Count MPV Neut % (Auto) Lymph % (Auto) Brown % (Auto) Eos % (Auto) Baso % (Auto) Neut # (Auto) Lymph # (Auto) Brown # (Auto) Eos # (Auto) Baso # (Auto) PT INR APTT pCO2 pO2 HCO3 ABG pH ABG Total CO2 ABG O2 Saturation ABG O2 Content ABG Base Excess ABG Hemoglobin ABG Carboxyhemoglobin POC ABG HHb (Measured) ABG Methemoglobin ABG O2 Capacity Frederic Test A-a O2 Difference Hgb O2 Saturation Vent Mode Mechanical Rate FiO2 Tidal Volume PEEP Crit Value Called To Crit Value Called By Crit Value Read Back Blood Gas Notified Time Sodium 154 H Potassium 3.9 Chloride 120 H Carbon Dioxide 28 Anion Gap 10 BUN 63 H Creatinine 0.9 Est GFR ( Amer) > 60 Est GFR (Non-Af Amer) > 60 Random Glucose 154 H Lactic Acid Calcium 7.5 L Total Bilirubin 0.7 AST 54 H D ALT 44 Alkaline Phosphatase 71 Ammonia Total Protein 4.9 L Albumin 2.1 L Globulin 2.8 Albumin/Globulin Ratio 0.7 L Vancomycin Trough Blood Type Antibody Screen Crossmatch BBK History Checked Microbiology 09/25/18 12:10 Blood-Thru Central Line Blood Culture - Final NO GROWTH AFTER 5 DAYS 09/25/18 12:10 Blood-Thru Central Line Gram Stain - Final TEST NOT PERFORMED 09/20/18 14:00 Blood-Thru Central Line Blood Culture - Final NO GROWTH AFTER 5 DAYS 09/20/18 17:53 Trachasp Gram Stain - Final 09/20/18 17:53 Trachasp Sputum Culture - Final Yeast Species 09/20/18 17:53 Urine,Orellana Urine Culture - Final No Growth (<1,000 CFU/ML) 09/15/18 15:35 Blood-Thru Central Line Blood Culture - Final NO GROWTH AFTER 5 DAYS 09/15/18 15:35 Blood-Thru Central Line Gram Stain - Final TEST NOT PERFORMED 09/15/18 15:25 Blood-Thru Central Line Blood Culture - Final NO GROWTH AFTER 5 DAYS 09/15/18 15:25 Blood-Thru Central Line Gram Stain - Final TEST NOT PERFORMED 09/08/18 11:49 Blood-Venous Blood Culture - Final NO GROWTH AFTER 5 DAYS 09/08/18 11:49 Blood-Venous Gram Stain - Final TEST NOT PERFORMED 09/08/18 11:49 Blood-Venous Blood Culture - Final NO GROWTH AFTER 5 DAYS 09/08/18 11:49 Blood-Venous Gram Stain - Final TEST NOT PERFORMED 09/07/18 Unknown Blood-Thru Central Line Blood Culture - Final NO GROWTH AFTER 5 DAYS 09/07/18 Unknown Blood-Thru Central Line Gram Stain - Final TEST NOT PERFORMED 09/07/18 Unknown Blood-Thru Central Line Blood Culture - Final NO GROWTH AFTER 5 DAYS 09/07/18 Unknown Blood-Thru Central Line Gram Stain - Final TEST NOT PERFORMED 09/07/18 09:07 Trachasp Gram Stain - Final 09/07/18 09:07 Trachasp Sputum Culture - Final Yeast Species 09/04/18 11:25 Naris MRSA Culture (Admit) - Final MRSA NOT DETECTED Accession No. : [id number] Patient Name / ID : RYLEE ONEIL / [id number] Exam Date : 09/30/2018 04:02:59 ( Approved ) Study Comment : Sex / Age : F / [id number] Creator : Jonathan Crespo MD Dictator : Jonathan Crespo MD Finisher Screwdown : [employer]erglass Finisher : Jonathan Crespo MD Approver2 : Report Date : 09/30/2018 09:14:25 My Comment : Date of service: 09/30/2018 HISTORY: vented COMPARISON: 09/29/2018 FINDINGS: LUNGS: Bilateral interstitial infiltrates. PLEURA: Cannot exclude bilateral pleural effusions. CARDIOVASCULAR: No aortic atherosclerotic calcification present. Cardiomegaly. No pulmonary vascular congestion. OSSEOUS STRUCTURES: No significant abnormalities. VISUALIZED UPPER ABDOMEN: Normal. OTHER FINDINGS: Tubes and catheters unchanged. IMPRESSION: CHF. 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 new rash c/w drug reaction rash could be secondary to midodrine d/w yesterday. midodrine and neosinpehrine have both been d/c by deputy court clerk yesterday adn pt. is on levophed for bp support. remains intubated responds to questions with nodding. afebrile today so far. CXR report noted improved. continues to have anemia and thrombocytopenia blood cx- 09/07/2018- neg x 8 trach asp cx- yeast stool c.diff- negative repeat UA- negative repeat urine cx- neg PLan- so far 14 days of vanco , hold today as trough is high. keep trough <15. advise to continue IV meropnem for broad spectrum gram negative coverage.day #21 continue with IV diflucan day #20 above abx and antifungal being continues sine pt. is immunecompromised and is on vent.( they are empiric). monitor absolute PMN and if becomes 500 or less needs to be on neutropenic precautions as well. monitor rash closely, pt. has received 1 dose solumedrol and is on antihistamine as per ICU doc. critical care time spent 30 minutes. prognosis poor.
--- NOTE | 2018-09-30 20:47 | PN ---
DATE: 09/30/2018 CRITICAL CARE PROGRESS NOTE LOCATION: The patient in ICU bed 427. TIME SPENT: 35 minutes. SUBJECTIVE: The patient is seen and evaluated at the bedside. Past medical, surgical, family and social history reviewed. A 58-year-old female with stage 4 inflammatory metastatic breast carcinoma right with malignant pleural effusion, ascites, peritoneal carcinomatosis, bony metastasis status post chemo. Admitted with shortness of breath, required intubation, mechanical ventilation for hypoxic respiratory failure. Clinical course significant for significant leukopenia, thrombocytopenia with drop in hemoglobin and oozing blood from vagina and also with dark brown stool. Status post transfusion of multiple units of packed red blood cells and platelets. Remains intubated, mechanically ventilated on low-dose pressor support. Awaiting for tracheostomy next Tuesday. OBJECTIVE: VITAL SIGNS: Temperature 98.1, heart rate of 118, blood pressure 100/60, mean arterial pressure of 73, respiratory rate 20, AC/PRVC rate 12, tidal volume of 400, FIO2 of 50%, observed rate of 19, observed tidal volume 400, minute ventilation 8 liters, saturation 100%, end-tidal CO2 of 35. GENERAL: No sedation and awake, slow to respond. HEAD, EYES, EARS, NOSE AND THROAT: Pupils are reactive. Conjunctivae pale. Sclerae are white. Endotracheal tube in place. Minimal secretions. CHEST: Bilateral breath sounds diminished in intensity. HEART: Rhythm irregular. ABDOMEN: Bowel sounds present. Soft. Reduced abdominal distention, status post paracentesis. GENITOURINARY: Orellana in place draining serosanguineous urine. CURRENT MEDICATIONS Allopurinol 100 mg NG daily, Eliquis 5 mg p.o. twice daily on hold for the procedure, fluconazole 100 mg daily, Claritin 10 mg daily, meropenem 1 g IV every 8 hours, Lopressor 12.5 mg every 12 hours, Levophed at 2.5 mcg/minute, Protonix 40 IV daily vancomycin 500 mg IV every 12 hours. IMPRESSION: 1. Neuro: Remains mildly lethargic secondary to ongoing septic metabolic encephalopathy. CT head negative. 2. Respiratory: Acute hypoxic respiratory failure, remains intubated. Weaning trials unsuccessful for tracheostomy next Tuesday. Family is aware of the procedure. 3. Cardiac: History of congestive heart failure with malignant pleural effusion, low borderline systolic pressure on Levophed. Tachycardia secondary to ongoing inflammation/infection and anemia. 4. Gastroenterology: Ascites secondary to peritoneal carcinomatosis status post paracentesis. 5. Endocrinology. No history of hypothyroidism. Blood sugar is under control. 6. Infectious Disease: Malignant pleural effusion, malignant ascites with bone metastases, fungal infection in the sputum. Stool C. diff negative, on fluconazole meropenem, vancomycin. Will continue Claritin for rash, remains stable. No need for steroid. Javid Das MD
[2018-10-01] MEDS: Meropenem 1 GM in Sodium Chloride 0.9% 100 ML IVPB SCH ×3 (00:19→16:52)
[2018-10-01 06:07] LABS: MEAN CELL VOLUME 92.2 fl (81.0-99.0); MEAN CORPUSCULAR HEMOGLOBIN 31.2 pg (27.0-31.0); MEAN CORPUSCULAR HGB CONC 33.8 g/dL (33.0-37.0); RBC 2.9 Mil/uL (3.80-5.20); RED CELL DISTRIBUTION WIDTH 14.8 % (11.5-14.5); WHITE BLOOD COUNT 6.3 K/uL (4.8-10.8)
[2018-10-01 06:17] LABS: ABG ALLEN TEST YES; ARTERIAL BLOOD GAS HCO3 30.3 mmol/L (21-28); ARTERIAL BLOOD GAS HEMOGLOBIN 6.4 g/dL (11.7-17.4); ARTERIAL BLOOD GAS O2 CAPACITY 9.3 mL/dL (16-24); ARTERIAL BLOOD GAS O2 CONTENT 9.2 ML/dL (15-23); ARTERIAL BLOOD GAS O2 SAT 99.3 % (95-98); ARTERIAL BLOOD GAS PCO2 22 mm/Hg (35-45); ARTERIAL BLOOD GAS PO2 167 mm/Hg (80-100); ARTERIAL BLOOD GAS TCO2 27.9 mmol/L (22-28)
[2018-10-01 06:25] LABS: ALB/GLOB RATIO 0.8 (1.0-2.1); ALBUMIN 2.1 g/dL (3.5-5.0); ALT/SGPT 43 U/L (9-52); AST/SGOT 45 U/L (14-36); BLOOD UREA NITROGEN 61 mg/dl (7-17); CALCIUM 7.5 mg/dL (8.4-10.2); GFR NON-AFRICAN AMERICAN > 60
--- NOTE | 2018-10-01 07:20 | CP.PCM.PN ---
Subjective - Date & Time of Evaluation Date of Evaluation: 10/01/18 Time of Evaluation: 07:18 - Subjective Subjective: General surgery progress note for Dr. Musa Corey, PGY-2 Pt seen/evaluated at bedside No acute events overnight as per nursing. Pt with increased alertness per nursing, now GCS 11T occasionally. Continues on mechanical ventilation - PRVC 400/12/5/50%. Endorsed to nursing to have patient's mother (next of kin) come to hospital tomorrow to sign consent for surgery. Objective - Vital Signs/Intake and Output Vital Signs (last 24 hours): Temp Pulse Resp BP Pulse Ox 98.2 F 131 H 23 99/58 L 100 10/01/18 05:00 10/01/18 06:00 10/01/18 06:00 10/01/18 06:00 10/01/18 06:00 Intake and Output: 10/01/18 10/01/18 06:59 18:59 Intake Total Output Total Balance - Medications Medications: Current Medications Allopurinol (Zyloprim) 100 mg NG DAILY [facility] Last Admin: 09/27/18 08:16 Dose: 100 mg Apixaban (Eliquis) 5 mg PO BID [facility]; Protocol Last Admin: 09/06/18 17:08 Dose: Not Given Fluconazole (Diflucan Iv 100 Mg/50 Ml Ns) 50 mls @ 50 mls/hr IVPB DAILY [facility]; Protocol Last Admin: 09/30/18 09:54 Dose: 50 mls/hr Meropenem 1 gm/ Sodium (Chloride) 100 mls @ 100 mls/hr IVPB Q8 [facility]; Protocol Last Admin: 10/01/18 00:19 Dose: 100 mls/hr Vancomycin HCl 500 mg/ Sodium (Chloride) 100 mls @ 100 mls/hr IVPB Q12 [facility]; Protocol Last Admin: 10/01/18 04:53 Dose: Not Given Norepinephrine Bitartrate 16 (mg/ Dextrose) 266 mls @ 7.48 mls/hr IV .Q24H ONE; Protocol Stop: 10/02/18 06:36 Loratadine (Claritin) 10 mg PO DAILY [facility] Last Admin: 09/30/18 09:54 Dose: 10 mg Metoprolol Tartrate (Lopressor) 12.5 mg PO Q12 [facility] Last Admin: 09/06/18 21:59 Dose: Not Given Pantoprazole Sodium (Protonix Inj) 40 mg IVP DAILY [facility] Last Admin: 09/30/18 10:03 Dose: 40 mg - Labs Labs: 10/01/18 05:00 10/01/18 05:00 PT 15.7 Seconds (9.8-13.1) H 09/28/18 04:45 INR 1.4 09/28/18 04:45 APTT 28.2 Seconds (25.6-37.1) 09/28/18 04:45 - Constitutional Appears: Non-toxic, No Acute Distress - Head Exam Head Exam: ATRAUMATIC, NORMAL INSPECTION, NORMOCEPHALIC - Eye Exam Eye Exam: EOMI, Normal appearance - ENT Exam ENT Exam: Mucous Membranes Dry (ETT in place) - Respiratory Exam Respiratory Exam: Clear to Ausculation Bilateral, NORMAL BREATHING PATTERN (on mechanical vent). absent: Accessory Muscle Use - Cardiovascular Exam Cardiovascular Exam: Tachycardia - GI/Abdominal Exam GI & Abdominal Exam: Soft. absent: Distended, Firm, Guarding, Tenderness Additional comments: obese - Extremities Exam Extremities Exam: Pedal Edema - Neurological Exam Neurological Exam: Alert, Awake Additional comments: intubated, follows some commands in [place] - Psychiatric Exam Additional comments: intubated, not verbal - Skin Skin Exam: Dry, Intact, Normal Color, Warm Assessment and Plan - Assessment and Plan (Free Text) Assessment: 58F w/acute respiratory failure requiring [facility] mechanical ventilation Plan: Plan for OR 10/02 Mother to come sign consent FU AM labs FU EKG Further care as per ICU & primary team Will DAYANA Corey, PGY-2
--- NOTE | 2018-10-01 08:09 | CP.CCUPN ---
CCU Subjective - Physician Review Events Since Last Encounter (Free Text): Patient on ventilator, on PRVC, TV 350, RR 10, FIO2 50%, opens eyes to verbal stimuli, no fever, on OG tube feeding, on levophed, events reviewed CCU Objective - Vital Signs / Intake & Output Vital Signs (Last 4 hours): Vital Signs Temp Pulse Resp BP Pulse Ox 10/01/18 06:00 131 H 23 99/58 L 100 10/01/18 05:00 98.2 F 127 H 24 105/58 L 100 Intake and Output (Last 8hrs): Intake & Output 09/30/18 10/01/18 10/01/18 21:59 06:59 14:59 Intake Total Output Total Balance Weight Intake: IV Intake, Piggyback Oral Tube Feeding Free Water Flush Output: Urine Urethral (Orellana) Stool - Physical Exam Head: Positive for: Atraumatic, Normocephalic Pupils: Positive for: PERRL Conjunctiva: Negative for: Injected, Icteric Ears: Positive for: Normal Mouth: Positive for: Moist Mucous Membranes Nose (Internal): Positive for: Normal Inspection Neck: Positive for: Normal Range of Motion, Trachea Midline. Negative for: Meningeal Signs, MIDLINE TENDERNESS, Paraspinal Tenderness, JVD, Lymphadenopathy, Bruit, Other Respiratory/Chest: Positive for: Good Air Exchange, Rales, Retracting, Rhonchi. Negative for: Respiratory Distress, Accessory Muscle Use, Wheezes, Tachypneic Cardiovascular: Positive for: Regular Rate and Rhythm, Normal S1, S2, Peripheal Pulses Present. Negative for: Murmurs, Irregular Rhythm, Tachycardic, Bradycardic Abdomen: Positive for: Normal Bowel Sounds. Negative for: Tenderness Breast/Axillary: Positive for: Other (fungating necrotic mass to Right Breast) Upper Extremity: Positive for: Edema, NORMAL PULSES. Negative for: Normal Inspection, Cyanosis Lower Extremity: Positive for: Edema, NORMAL PULSES. Negative for: Normal Inspection Neurological: Positive for: Other (on ventilator, opens eyes to verbal stimuli) - Medications Active Medications: Active Medications Generic Name Dose Route Start Last Admin Trade Name Freq PRN Reason Stop Dose Admin Allopurinol 100 mg 09/14/18 09:00 09/27/18 08:16 Zyloprim NG 100 mg DAILY GLADIS Administration Apixaban 5 mg 09/04/18 09:00 09/06/18 17:08 Eliquis PO Not Given BID GLADIS Protocol Fluconazole 50 mls @ 50 mls/hr 09/09/18 11:30 09/30/18 09:54 Diflucan Iv 100 Mg/50 Ml Ns IVPB 50 mls/hr DAILY GLADIS Administration Protocol Meropenem 1 gm/ Sodium 100 mls @ 100 mls/hr 09/18/18 12:45 10/01/18 00:19 Chloride IVPB 100 mls/hr Q8 GLADIS Administration Protocol Vancomycin HCl 500 mg/ Sodium 100 mls @ 100 mls/hr 09/28/18 21:00 10/01/18 04:53 Chloride IVPB Not Given Q12 GLADIS Protocol Norepinephrine Bitartrate 16 266 mls @ 7.48 mls/hr 10/01/18 06:37 mg/ Dextrose IV 10/02/18 06:36 .Q24H ONE Protocol 7.5 MCG/MIN Loratadine 10 mg 09/29/18 12:15 09/30/18 09:54 Claritin PO 10 mg DAILY GLADIS Administration Metoprolol Tartrate 12.5 mg 09/03/18 23:45 09/06/18 21:59 Lopressor PO Not Given Q12 GLADIS Pantoprazole Sodium 40 mg 09/19/18 22:00 09/30/18 10:03 Protonix Inj IVP 40 mg DAILY GLADIS Administration - Patient Studies Lab Studies: Microbiology Studies 09/25/18 12:10 Blood Culture - Final Blood-Thru Central Line NO GROWTH AFTER 5 DAYS Gram Stain - Final TEST NOT PERFORMED Lab Studies 10/01/18 10/01/18 10/01/18 Range/Units 05:54 05:00 05:00 WBC 6.3 (4.8-10.8) K/uL RBC 2.90 L (3.80-5.20) Mil/uL Hgb 9.0 L (12.0-16.0) g/dL Hct 26.7 L (34.0-47.0) % MCV 92.2 (81.0-99.0) fl MCH 31.2 H (27.0-31.0) pg MCHC 33.8 (33.0-37.0) g/dL RDW 14.8 H (11.5-14.5) % Plt Count 103 L (130-400) K/uL pCO2 22 L (35-45) mm/Hg pO2 167 H (80-100) mm/Hg HCO3 30.3 H (21-28) mmol/L ABG pH 7.70 H* (7.35-7.45) ABG Total CO2 27.9 (22-28) mmol/L ABG O2 Saturation 99.3 H (95-98) % ABG O2 Content 9.2 L (15-23) ML/dL ABG Base Excess 6.8 H (-2.0-3.0) mmol/L ABG Hemoglobin 6.4 L (11.7-17.4) g/dL ABG Carboxyhemoglobin 1.1 (0.5-1.5) % POC ABG HHb (Measured) 0.7 (0.0-5.0) % ABG Methemoglobin 1.1 (0.0-3.0) % ABG O2 Capacity 9.3 L (16-24) mL/dL Frederic Test Yes A-a O2 Difference 162.0 mm/Hg Hgb O2 Saturation 97.1 (95.0-98.0) % Vent Mode A/c Mechanical Rate 12 FiO2 50.0 % Tidal Volume 400 PEEP 5 Crit Value Called To Yovany holland rn Crit Value Called By 333 Crit Value Read Back Y Blood Gas Notified Time 617 Sodium 151 H (132-148) mmol/l Potassium 3.7 (3.6-5.0) MMOL/L Chloride 118 H (98-107) mmol/L Carbon Dioxide 30 (22-30) mmol/L Anion Gap 7 L (10-20) BUN 61 H (7-17) mg/dl Creatinine 0.8 (0.7-1.2) mg/dl Est GFR ( Amer) > 60 Est GFR (Non-Af Amer) > 60 Random Glucose 108 H (65-105) mg/dL Calcium 7.5 L (8.4-10.2) mg/dL Total Bilirubin 0.6 (0.2-1.3) mg/dl AST 45 H (14-36) U/L ALT 43 (9-52) U/L Alkaline Phosphatase 79 (38-126) U/L Total Protein 4.8 L (6.3-8.2) G/DL Albumin 2.1 L (3.5-5.0) g/dL Globulin 2.7 (2.2-3.9) gm/dL Albumin/Globulin Ratio 0.8 L (1.0-2.1) Vancomycin Trough (5.0-10.0) ug/mL 10/01/18 Range/Units 05:00 WBC (4.8-10.8) K/uL RBC (3.80-5.20) Mil/uL Hgb (12.0-16.0) g/dL Hct (34.0-47.0) % MCV (81.0-99.0) fl MCH (27.0-31.0) pg MCHC (33.0-37.0) g/dL RDW (11.5-14.5) % Plt Count (130-400) K/uL pCO2 (35-45) mm/Hg pO2 (80-100) mm/Hg HCO3 (21-28) mmol/L ABG pH (7.35-7.45) ABG Total CO2 (22-28) mmol/L ABG O2 Saturation (95-98) % ABG O2 Content (15-23) ML/dL ABG Base Excess (-2.0-3.0) mmol/L ABG Hemoglobin (11.7-17.4) g/dL ABG Carboxyhemoglobin (0.5-1.5) % POC ABG HHb (Measured) (0.0-5.0) % ABG Methemoglobin (0.0-3.0) % ABG O2 Capacity (16-24) mL/dL Frederic Test A-a O2 Difference mm/Hg Hgb O2 Saturation (95.0-98.0) % Vent Mode Mechanical Rate FiO2 % Tidal Volume PEEP Crit Value Called To Crit Value Called By Crit Value Read Back Blood Gas Notified Time Sodium (132-148) mmol/l Potassium (3.6-5.0) MMOL/L Chloride (98-107) mmol/L Carbon Dioxide (22-30) mmol/L Anion Gap (10-20) BUN (7-17) mg/dl Creatinine (0.7-1.2) mg/dl Est GFR ( Amer) Est GFR (Non-Af Amer) Random Glucose (65-105) mg/dL Calcium (8.4-10.2) mg/dL Total Bilirubin (0.2-1.3) mg/dl AST (14-36) U/L ALT (9-52) U/L Alkaline Phosphatase (38-126) U/L Total Protein (6.3-8.2) G/DL Albumin (3.5-5.0) g/dL Globulin (2.2-3.9) gm/dL Albumin/Globulin Ratio (1.0-2.1) Vancomycin Trough 12.6 H (5.0-10.0) ug/mL Laboratory Results - last 24 hr 10/01/18 10/01/18 10/01/18 05:00 05:00 05:00 WBC 6.3 RBC 2.90 L Hgb 9.0 L Hct 26.7 L MCV 92.2 MCH 31.2 H MCHC 33.8 RDW 14.8 H Plt Count 103 L pCO2 pO2 HCO3 ABG pH ABG Total CO2 ABG O2 Saturation ABG O2 Content ABG Base Excess ABG Hemoglobin ABG Carboxyhemoglobin POC ABG HHb (Measured) ABG Methemoglobin ABG O2 Capacity Frederic Test A-a O2 Difference Hgb O2 Saturation Vent Mode Mechanical Rate FiO2 Tidal Volume PEEP Crit Value Called To Crit Value Called By Crit Value Read Back Blood Gas Notified Time Sodium 151 H Potassium 3.7 Chloride 118 H Carbon Dioxide 30 Anion Gap 7 L BUN 61 H Creatinine 0.8 Est GFR ( Amer) > 60 Est GFR (Non-Af Amer) > 60 Random Glucose 108 H Calcium 7.5 L Total Bilirubin 0.6 AST 45 H ALT 43 Alkaline Phosphatase 79 Total Protein 4.8 L Albumin 2.1 L Globulin 2.7 Albumin/Globulin Ratio 0.8 L Vancomycin Trough 12.6 H 10/01/18 05:54 WBC RBC Hgb Hct MCV MCH MCHC RDW Plt Count pCO2 22 L pO2 167 H HCO3 30.3 H ABG pH 7.70 H* ABG Total CO2 27.9 ABG O2 Saturation 99.3 H ABG O2 Content 9.2 L ABG Base Excess 6.8 H ABG Hemoglobin 6.4 L ABG Carboxyhemoglobin 1.1 POC ABG HHb (Measured) 0.7 ABG Methemoglobin 1.1 ABG O2 Capacity 9.3 L Frederic Test Yes A-a O2 Difference 162.0 Hgb O2 Saturation 97.1 Vent Mode A/c Mechanical Rate 12 FiO2 50.0 Tidal Volume 400 PEEP 5 Crit Value Called To Yovany holland rn Crit Value Called By 333 Crit Value Read Back Y Blood Gas Notified Time 617 Sodium Potassium Chloride Carbon Dioxide Anion Gap BUN Creatinine Est GFR ( Amer) Est GFR (Non-Af Amer) Random Glucose Calcium Total Bilirubin AST ALT Alkaline Phosphatase Total Protein Albumin Globulin Albumin/Globulin Ratio Vancomycin Trough Radiology Impressions: Radiology Impressions Chest X-Ray 09/30/18 04:00 IMPRESSION: CHF. EKG/Cardiology Studies: Cardiology / EKG Studies 10/01/18 08:00 ELECTROCARDIOGRAM Routine Comment: Mode Of Transportation: Reason For Exam: pre op evaluation Assessment/Plan - Assessment and Plan (Free Text) Assessment: A/P Respiratory failure, pneumonia, severe sepsis, metastatic breast ca, anemia, h/o DVT, s/p pancreatitis, vaginal bleeding, hypernatremia, malignant ascietis - Ventilatory support - Pulmonary toilets - Continue meds - Pressors as needed - OG tube feeding - Poor prognosis critical care 35 min
--- NOTE | 2018-10-01 08:35 | RAD ---
Date of service: 10/01/2018 PROCEDURE: HISTORY: Intubated COMPARISON: 09/30/2018 TECHNIQUE: FINDINGS: Stable bilateral interstitial infiltrates. No significant change in tubes and catheters. IMPRESSION: As above.
[2018-10-01] MEDS: Fluconazole IV 100mg/50 ml NS 50 ML IVPB SCH (08:46)
[2018-10-01 09:12] LABS: ABG ALLEN TEST YES; ARTERIAL BLOOD GAS HCO3 29.7 mmol/L (21-28); ARTERIAL BLOOD GAS HEMOGLOBIN 9.1 g/dL (11.7-17.4); ARTERIAL BLOOD GAS O2 CAPACITY 12.6 mL/dL (16-24); ARTERIAL BLOOD GAS O2 CONTENT 12.5 ML/dL (15-23); ARTERIAL BLOOD GAS O2 SAT 99.6 % (95-98); ARTERIAL BLOOD GAS PCO2 37 mm/Hg (35-45); ARTERIAL BLOOD GAS PH 7.51 (7.35-7.45); ARTERIAL BLOOD GAS PO2 87 mm/Hg (80-100); ARTERIAL BLOOD GAS TCO2 30.6 mmol/L (22-28)
[2018-10-01] MEDS ORDERED: Sodium Chloride 0.9% 500 ML IV ONE ×2 (11:47→17:57)
--- NOTE | 2018-10-01 22:28 | CP.PCM.PN ---
Subjective - Date & Time of Evaluation Date of Evaluation: 09/29/18 Time of Evaluation: 12:00 - Subjective Subjective: Vented, opens eyes. Objective - Vital Signs/Intake and Output Vital Signs (last 24 hours): Temp Pulse Resp BP Pulse Ox 98.8 F 131 H 20 106/63 100 10/01/18 22:00 10/01/18 22:00 10/01/18 22:00 10/01/18 22:00 10/01/18 22:00 Intake and Output: 10/01/18 10/02/18 18:59 06:59 Intake Total 1706 300 Output Total 920 100 Balance 786 200 - Medications Medications: Current Medications Allopurinol (Zyloprim) 100 mg NG DAILY [facility] Last Admin: 09/27/18 08:16 Dose: 100 mg Apixaban (Eliquis) 5 mg PO BID [facility]; Protocol Last Admin: 09/06/18 17:08 Dose: Not Given Meropenem 1 gm/ Sodium (Chloride) 100 mls @ 100 mls/hr IVPB Q8 [facility]; Protocol Last Admin: 10/01/18 16:52 Dose: 100 mls/hr Norepinephrine Bitartrate 16 (mg/ Dextrose) 266 mls @ 7.48 mls/hr IV .Q24H ONE; Protocol Stop: 10/02/18 06:36 Last Titration: 10/01/18 17:00 Dose: 0 mcg/min, 0 mls/hr Loratadine (Claritin) 10 mg PO DAILY [facility] Last Admin: 10/01/18 08:46 Dose: 10 mg Metoprolol Tartrate (Lopressor) 12.5 mg PO Q12 [facility] Last Admin: 09/06/18 21:59 Dose: Not Given Pantoprazole Sodium (Protonix Inj) 40 mg IVP DAILY [facility] Last Admin: 10/01/18 08:50 Dose: 40 mg - Labs Labs: 10/01/18 05:00 10/01/18 05:00 PT 15.7 Seconds (9.8-13.1) H 09/28/18 04:45 INR 1.4 09/28/18 04:45 APTT 28.2 Seconds (25.6-37.1) 09/28/18 04:45 - Head Exam Head Exam: ATRAUMATIC - Eye Exam Eye Exam: Normal appearance - ENT Exam ENT Exam: Mucous Membranes Dry - Respiratory Exam Respiratory Exam: Decreased Breath Sounds - Cardiovascular Exam Cardiovascular Exam: +S1, +S2 - GI/Abdominal Exam GI & Abdominal Exam: Normal Bowel Sounds - Extremities Exam Extremities Exam: Pedal Edema Assessment and Plan (1) Pancytopenia Assessment & Plan: secondary to chemotherapy blood loss - vaginal/hematuria; possible IR uterine embolization plt count improved transfusion support PRN Status: Acute (2) Pulmonary embolism Assessment & Plan: anticoagulation on hold for bleeding Status: Acute (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 Wishes full code and agreeable to trach + PEG Status: Acute
--- NOTE | 2018-10-01 22:29 | CP.PCM.PN ---
Subjective - Date & Time of Evaluation Date of Evaluation: 09/30/18 Time of Evaluation: 17:00 - Subjective Subjective: Vented, opens eyes. Objective - Vital Signs/Intake and Output Vital Signs (last 24 hours): Temp Pulse Resp BP Pulse Ox 98.8 F 131 H 20 106/63 100 10/01/18 22:00 10/01/18 22:00 10/01/18 22:00 10/01/18 22:00 10/01/18 22:00 Intake and Output: 10/01/18 10/02/18 18:59 06:59 Intake Total 1706 300 Output Total 920 100 Balance 786 200 - Medications Medications: Current Medications Allopurinol (Zyloprim) 100 mg NG DAILY [facility] Last Admin: 09/27/18 08:16 Dose: 100 mg Apixaban (Eliquis) 5 mg PO BID [facility]; Protocol Last Admin: 09/06/18 17:08 Dose: Not Given Meropenem 1 gm/ Sodium (Chloride) 100 mls @ 100 mls/hr IVPB Q8 [facility]; Protocol Last Admin: 10/01/18 16:52 Dose: 100 mls/hr Norepinephrine Bitartrate 16 (mg/ Dextrose) 266 mls @ 7.48 mls/hr IV .Q24H ONE; Protocol Stop: 10/02/18 06:36 Last Titration: 10/01/18 17:00 Dose: 0 mcg/min, 0 mls/hr Loratadine (Claritin) 10 mg PO DAILY [facility] Last Admin: 10/01/18 08:46 Dose: 10 mg Metoprolol Tartrate (Lopressor) 12.5 mg PO Q12 [facility] Last Admin: 09/06/18 21:59 Dose: Not Given Pantoprazole Sodium (Protonix Inj) 40 mg IVP DAILY [facility] Last Admin: 10/01/18 08:50 Dose: 40 mg - Labs Labs: 10/01/18 05:00 10/01/18 05:00 PT 15.7 Seconds (9.8-13.1) H 09/28/18 04:45 INR 1.4 09/28/18 04:45 APTT 28.2 Seconds (25.6-37.1) 09/28/18 04:45 - Head Exam Head Exam: ATRAUMATIC - Eye Exam Eye Exam: Normal appearance - ENT Exam ENT Exam: Mucous Membranes Dry - Respiratory Exam Respiratory Exam: Decreased Breath Sounds - Cardiovascular Exam Cardiovascular Exam: +S1, +S2 - GI/Abdominal Exam GI & Abdominal Exam: Normal Bowel Sounds - Extremities Exam Extremities Exam: Pedal Edema Assessment and Plan (1) Pancytopenia Assessment & Plan: secondary to chemotherapy blood loss - vaginal/hematuria; possible IR uterine embolization plt count improved transfusion support PRN Status: Acute (2) Pulmonary embolism Assessment & Plan: unable to anticoagulate due to blood loss Status: Acute (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 Wishes full code and agreeable to trach + PEG Status: Acute
[2018-10-02] MEDS: Meropenem 1 GM in Sodium Chloride 0.9% 100 ML IVPB SCH ×3 (00:17→16:10)
[2018-10-02 04:40] LABS: ABG ALLEN TEST YES
[2018-10-02 05:46] LABS: INR 1.2; PROTHROMBIN TIME 13.9 Seconds (9.8-13.1)
[2018-10-02 05:47] LABS: BASO % 1.1 % (0.0-2.0); EOS % 0.2 % (0.0-4.0); HEMOGLOBIN 8.2 g/dL (12.0-16.0); LYMPH # 1.6 K/uL (1.0-4.3); LYMPH % 34.4 % (20.0-40.0); MEAN CELL VOLUME 92.6 fl (81.0-99.0); MEAN CORPUSCULAR HGB CONC 33.5 g/dL (33.0-37.0); MEAN PLATELET VOLUME 10.9 fl (7.2-11.7); MONO # 0.2 K/uL (0.0-0.8); MONO % 4.3 % (0.0-10.0); NEUT # 2.7 K/uL (1.8-7.0); NRBC % 0.3 % (0.0-0.0); RBC 2.64 Mil/uL (3.80-5.20); RED CELL DISTRIBUTION WIDTH 14.9 % (11.5-14.5); WHITE BLOOD COUNT 4.5 K/uL (4.8-10.8)
[2018-10-02 05:49] LABS: PARTIAL THROMBOPLASTIN TIME 30.5 Seconds (25.6-37.1)
[2018-10-02 05:58] LABS: BLOOD UREA NITROGEN 52 mg/dl (7-17); CALCIUM 7.2 mg/dL (8.4-10.2); GFR NON-AFRICAN AMERICAN > 60
--- NOTE | 2018-10-02 07:31 | CP.CCUPN ---
CCU Subjective - Physician Review Subjective (Free Text): 10/02/18 07:30 The patient was Seen and examined by me at the bedside, Medical records reviewed and Management issues were discussed and formulated with the house staff. Events reviewed Patient is 58 years old female with past medical history of anemia, anxiety, CHF, deep venous thrombosis, peripheral edema, pulmonary embolism and stage IV advanced metastatic breast cancer Status post chemotherapy 2 days ago Who initially presented to the emergency room on 09/03 for evaluation of intermittent chest pain and shortness of breath for the past 2 days In the emergency room patient stated that this chest pain resolved and breathing got better On exam she was comfortable and was admitted to the medical service Transfused 1 unit of packed red blood cell for hemoglobin of 6.9 also of note Patient recently underwent paracentesis 09/04 Patient was transferred to the intensive care unit after [facility] was called for severe respiratory distress and hypoxemia and patient found to be confused and respiratory distress BP was stable but she was tachycardic, tachypneic and saturating 88% on non- rebreathing mask she is to receive a stat dose of IV Lasix and transferred to the intensive care unit Upon admitting to the to the ICU she was emergently intubated by anesthesia and mechanically ventilated Patient self extubated last night and she was in distress and she was reintubated Currently patient is orally intubated, mechanically ventilated and sedated Off Diprivan She is tachypnic and was placed of PRN Ativan On PRVC, TV 350, RR 10, FIO2 50% She looks comfortable and in no distress Improved oxygenation blood pressure is better, Off Levophed Sepsis controlled, Afebrile, Tmx 100.1 Less Fluid overload on exam, Off Furosemide (Lasix) Most recent Blood 09/25 and urine 09/20 C/S negative This morning labs revealed No Leucocytosis, Stable renal function BUN/Cr and Plat count 70K, Hypernatremia improving Na 150 Discussed with the mother at the bedside patient condition, poor prognosis, treatment plans and alternative The mother is determined that she wants everything to be done for the patient and she is in agreement with pursuing trach and PEG and possible LTAC placement Patient scheduled for trach today Critical Care Time Spent (in minutes): 35 CCU Objective - Vital Signs / Intake & Output Vital Signs (Last 4 hours): Vital Signs Temp Pulse Resp BP Pulse Ox 10/02/18 06:00 129 H 21 103/64 100 03/11/19 04:00 98.6 F 131 H 19 91/60 L 100 Intake and Output (Last 8hrs): Intake & Output 10/01/18 10/02/18 10/02/18 22:59 06:59 14:59 Intake Total 936 700 Output Total 1020 680 Balance -84 20 Weight 180 lb Intake: IV 96 Intake, Piggyback 100 100 Oral 0 Tube Feeding 140 Free Water Flush 600 600 Output: Urine 1000 680 Urethral (Orellana) 1000 680 Stool 20 Emesis 0 - Physical Exam Head: Positive for: Atraumatic, Normocephalic Pupils: Positive for: PERRL Extroacular Muscles: Positive for: EOMI Conjunctiva: Negative for: Injected, Icteric Ears: Positive for: Normal Mouth: Positive for: Moist Mucous Membranes Nose (Internal): Positive for: Normal Inspection Neck: Positive for: Normal Range of Motion, Trachea Midline. Negative for: Meningeal Signs, MIDLINE TENDERNESS, Paraspinal Tenderness, JVD, Lymphadenopathy, Bruit, Other Respiratory/Chest: Positive for: Good Air Exchange, Rales, Retracting, Rhonchi. Negative for: Respiratory Distress, Accessory Muscle Use, Wheezes, Tachypneic Cardiovascular: Positive for: Regular Rate and Rhythm, Normal S1, S2, Peripheal Pulses Present. Negative for: Murmurs, Irregular Rhythm, Tachycardic, Bradycardic Abdomen: Positive for: Normal Bowel Sounds. Negative for: Tenderness Breast/Axillary: Positive for: Other (fungating necrotic mass to Right Breast) Upper Extremity: Positive for: Edema, NORMAL PULSES. Negative for: Normal Inspection, Cyanosis Lower Extremity: Positive for: Edema, NORMAL PULSES. Negative for: Normal Inspection Neurological: Positive for: Other (on ventilator, opens eyes to verbal stimuli) Psychiatric: Positive for: Other (Sedated and orally intubated) - Medications Active Medications: Active Medications Generic Name Dose Route Start Last Admin Trade Name Freq PRN Reason Stop Dose Admin Allopurinol 100 mg 09/14/18 09:00 09/27/18 08:16 Zyloprim NG 100 mg DAILY GLADIS Administration Apixaban 5 mg 09/04/18 09:00 09/06/18 17:08 Eliquis PO Not Given BID [facility] Protocol Meropenem 1 gm/ Sodium 100 mls @ 100 mls/hr 09/18/18 12:45 10/02/18 00:17 Chloride IVPB 100 mls/hr Q8 GLADIS Administration Protocol Loratadine 10 mg 09/29/18 12:15 10/01/18 08:46 Claritin PO 10 mg DAILY GLADIS Administration Metoprolol Tartrate 12.5 mg 09/03/18 23:45 09/06/18 21:59 Lopressor PO Not Given Q12 GLADIS Pantoprazole Sodium 40 mg 09/19/18 22:00 10/01/18 08:50 Protonix Inj IVP 40 mg DAILY GLADIS Administration - Patient Studies Lab Studies: Lab Studies 10/02/18 10/02/18 10/02/18 Range/Units 04:30 04:30 04:30 WBC 4.5 L (4.8-10.8) K/uL RBC 2.64 L (3.80-5.20) Mil/uL Hgb 8.2 L (12.0-16.0) g/dL Hct 24.5 L (34.0-47.0) % MCV 92.6 (81.0-99.0) fl MCH 31.0 (27.0-31.0) pg MCHC 33.5 (33.0-37.0) g/dL RDW 14.9 H (11.5-14.5) % Plt Count 70 L D (130-400) K/uL MPV 10.9 (7.2-11.7) fl Neut % (Auto) 60.0 (50.0-75.0) % Lymph % (Auto) 34.4 (20.0-40.0) % Mingo % (Auto) 4.3 (0.0-10.0) % Eos % (Auto) 0.2 (0.0-4.0) % Baso % (Auto) 1.1 (0.0-2.0) % Neut # (Auto) 2.7 (1.8-7.0) K/uL Lymph # (Auto) 1.6 (1.0-4.3) K/uL Mingo # (Auto) 0.2 (0.0-0.8) K/uL Eos # (Auto) 0.0 (0.0-0.7) K/uL Baso # (Auto) 0.0 (0.0-0.2) K/uL PT 13.9 H (9.8-13.1) Seconds INR 1.2 APTT 30.5 (25.6-37.1) Seconds pCO2 (35-45) mm/Hg pO2 (80-100) mm/Hg HCO3 (21-28) mmol/L ABG pH (7.35-7.45) ABG Total CO2 (22-28) mmol/L ABG O2 Saturation (95-98) % ABG O2 Content (15-23) ML/dL ABG Base Excess (-2.0-3.0) mmol/L ABG Hemoglobin (11.7-17.4) g/dL ABG Carboxyhemoglobin (0.5-1.5) % POC ABG HHb (Measured) (0.0-5.0) % ABG Methemoglobin (0.0-3.0) % ABG O2 Capacity (16-24) mL/dL Frederic Test A-a O2 Difference mm/Hg Hgb O2 Saturation (95.0-98.0) % Vent Mode Mechanical Rate FiO2 % Tidal Volume PEEP Sodium 150 H (132-148) mmol/l Potassium 3.5 L (3.6-5.0) MMOL/L Chloride 119 H (98-107) mmol/L Carbon Dioxide 29 (22-30) mmol/L Anion Gap 6 L (10-20) BUN 52 H (7-17) mg/dl Creatinine 0.7 (0.7-1.2) mg/dl Est GFR ( Amer) > 60 Est GFR (Non-Af Amer) > 60 Random Glucose 118 H (65-105) mg/dL Calcium 7.2 L (8.4-10.2) mg/dL Phosphorus 3.7 (2.5-4.5) mg/dl Magnesium 1.9 (1.6-2.3) MG/DL 10/01/18 Range/Units 09:10 WBC (4.8-10.8) K/uL RBC (3.80-5.20) Mil/uL Hgb (12.0-16.0) g/dL Hct (34.0-47.0) % MCV (81.0-99.0) fl MCH (27.0-31.0) pg MCHC (33.0-37.0) g/dL RDW (11.5-14.5) % Plt Count (130-400) K/uL MPV (7.2-11.7) fl Neut % (Auto) (50.0-75.0) % Lymph % (Auto) (20.0-40.0) % Mingo % (Auto) (0.0-10.0) % Eos % (Auto) (0.0-4.0) % Baso % (Auto) (0.0-2.0) % Neut # (Auto) (1.8-7.0) K/uL Lymph # (Auto) (1.0-4.3) K/uL Mingo # (Auto) (0.0-0.8) K/uL Eos # (Auto) (0.0-0.7) K/uL Baso # (Auto) (0.0-0.2) K/uL PT (9.8-13.1) Seconds INR APTT (25.6-37.1) Seconds pCO2 37 (35-45) mm/Hg pO2 87 (80-100) mm/Hg HCO3 29.7 H (21-28) mmol/L ABG pH 7.51 H (7.35-7.45) ABG Total CO2 30.6 H (22-28) mmol/L ABG O2 Saturation 99.6 H (95-98) % ABG O2 Content 12.5 L (15-23) ML/dL ABG Base Excess 6.1 H (-2.0-3.0) mmol/L ABG Hemoglobin 9.1 L (11.7-17.4) g/dL ABG Carboxyhemoglobin 1.6 H (0.5-1.5) % POC ABG HHb (Measured) 0.4 (0.0-5.0) % ABG Methemoglobin 1.3 (0.0-3.0) % ABG O2 Capacity 12.6 L (16-24) mL/dL Frederic Test Yes A-a O2 Difference 223.0 mm/Hg Hgb O2 Saturation 96.7 (95.0-98.0) % Vent Mode A/c Mechanical Rate 10 FiO2 50.0 % Tidal Volume 350 PEEP 5 Sodium (132-148) mmol/l Potassium (3.6-5.0) MMOL/L Chloride (98-107) mmol/L Carbon Dioxide (22-30) mmol/L Anion Gap (10-20) BUN (7-17) mg/dl Creatinine (0.7-1.2) mg/dl Est GFR ( Amer) Est GFR (Non-Af Amer) Random Glucose (65-105) mg/dL Calcium (8.4-10.2) mg/dL Phosphorus (2.5-4.5) mg/dl Magnesium (1.6-2.3) MG/DL Laboratory Results - last 24 hr 10/01/18 10/02/18 10/02/18 09:10 04:30 04:30 WBC 4.5 L RBC 2.64 L Hgb 8.2 L Hct 24.5 L MCV 92.6 MCH 31.0 MCHC 33.5 RDW 14.9 H Plt Count 70 L D MPV 10.9 Neut % (Auto) 60.0 Lymph % (Auto) 34.4 Mingo % (Auto) 4.3 Eos % (Auto) 0.2 Baso % (Auto) 1.1 Neut # (Auto) 2.7 Lymph # (Auto) 1.6 Mingo # (Auto) 0.2 Eos # (Auto) 0.0 Baso # (Auto) 0.0 PT 13.9 H INR 1.2 APTT 30.5 pCO2 37 pO2 87 HCO3 29.7 H ABG pH 7.51 H ABG Total CO2 30.6 H ABG O2 Saturation 99.6 H ABG O2 Content 12.5 L ABG Base Excess 6.1 H ABG Hemoglobin 9.1 L ABG Carboxyhemoglobin 1.6 H POC ABG HHb (Measured) 0.4 ABG Methemoglobin 1.3 ABG O2 Capacity 12.6 L Frederic Test Yes A-a O2 Difference 223.0 Hgb O2 Saturation 96.7 Vent Mode A/c Mechanical Rate 10 FiO2 50.0 Tidal Volume 350 PEEP 5 Sodium Potassium Chloride Carbon Dioxide Anion Gap BUN Creatinine Est GFR ( Amer) Est GFR (Non-Af Amer) Random Glucose Calcium Phosphorus Magnesium 10/02/18 04:30 WBC RBC Hgb Hct MCV MCH MCHC RDW Plt Count MPV Neut % (Auto) Lymph % (Auto) Mingo % (Auto) Eos % (Auto) Baso % (Auto) Neut # (Auto) Lymph # (Auto) Mingo # (Auto) Eos # (Auto) Baso # (Auto) PT INR APTT pCO2 pO2 HCO3 ABG pH ABG Total CO2 ABG O2 Saturation ABG O2 Content ABG Base Excess ABG Hemoglobin ABG Carboxyhemoglobin POC ABG HHb (Measured) ABG Methemoglobin ABG O2 Capacity Frederic Test A-a O2 Difference Hgb O2 Saturation Vent Mode Mechanical Rate FiO2 Tidal Volume PEEP Sodium 150 H Potassium 3.5 L Chloride 119 H Carbon Dioxide 29 Anion Gap 6 L BUN 52 H Creatinine 0.7 Est GFR ( Amer) > 60 Est GFR (Non-Af Amer) > 60 Random Glucose 118 H Calcium 7.2 L Phosphorus 3.7 Magnesium 1.9 Radiology Impressions: Radiology Impressions Chest X-Ray 10/01/18 05:00 IMPRESSION: As above. EKG/Cardiology Studies: Cardiology / EKG Studies 10/01/18 08:00 ELECTROCARDIOGRAM Routine Comment: Mode Of Transportation: Reason For Exam: pre op evaluation Assessment/Plan (1) Acute respiratory failure with hypoxia Current Visit: Yes Status: Acute Priority: High Comment: Intubated for hypoxemic respiratory failure strict I&O, Maintian negative fluid balance Continue diuresis as blood pressure permits She is not a candidate for spontaneous breathing since she is not clinically stable and very poor mental status Discussed with the mother at the bedside patient condition, poor prognosis, treatment plans and alternative Patient scheduled for trach today (2) Congestive heart failure (CHF) Current Visit: Yes Status: Acute Priority: High Comment: Intubated for hypoxemic respiratory failure strict I&O, Maintian negative fluid balance Continue diuresis as blood pressure permits PRN Furosemide (Lasix) (3) DVT of lower extremity, bilateral Current Visit: No Status: Chronic Priority: Medium Comment: Patient with H/O provoked DVT and Pulmonary embolism Continue Apixaban (Eliquis) 5 mg PO BID (4) Pulmonary embolism on left Current Visit: No Status: Chronic Priority: Medium Comment: Patient with H/O provoked DVT and Pulmonary embolism Continue Apixaban (Eliquis) 5 mg PO BID (5) Breast CA Current Visit: Yes Status: Acute Priority: High (6) Severe sepsis Current Visit: Yes Status: Acute Priority: Medium Comment: Continue IV Vancomycin 500 mg IVPB Q12 and Meropenem 1 gm IVBP Q8H (7) Anemia Current Visit: Yes Status: Acute Priority: High Comment: Anemia is likely multifactorial from chronic disease and malignancy No signs of active bleeding at that time Transfuse as needed Hematology oncology consult appreciated - Assessment and Plan (Free Text) Assessment: Total critical care 35 min
--- NOTE | 2018-10-02 07:51 | RAD ---
Date of service: 10/02/2018 HISTORY: Patient is intubated. COMPARISON: Portable chest 10/01/2018. FINDINGS: LUNGS: Endotracheal and nasogastric tubes are not significantly changed in position as well as left MediPort. Interval moderate left pleural effusion is now identified with underlying airspace disease difficult to exclude. Left perihilar infiltrate unchanged as well as right perihilar region. Right basilar patchy density is increased. Trace right pleural effusion is not excluded. No pneumothorax bilaterally. PLEURA: As above. CARDIOVASCULAR: No aortic atherosclerotic calcification present. Cardiac silhouette is obscured. Mild underlying pulmonary vascular congestion suspected. OSSEOUS STRUCTURES: No significant abnormalities. VISUALIZED UPPER ABDOMEN: Normal. OTHER FINDINGS: None. IMPRESSION: New moderate left pleural effusion identified bilateral infiltrates reiterated. Limited due infiltrate or atelectasis seen at the right base. Trace right pleural effusion not excluded. Underlying pulmonary vascular congestion in question.
--- NOTE | 2018-10-02 16:28 | CP.PCM.PN ---
Subjective - Date & Time of Evaluation Date of Evaluation: 10/02/18 Time of Evaluation: 16:28 - Subjective Subjective: ID Note- Pt. seen and examined today in ICU. remains intubated. is tachycardic today. more lethargic today. Objective - Vital Signs/Intake and Output Vital Signs (last 24 hours): Temp Pulse Resp BP Pulse Ox 99.0 F 132 H 25 H 84/57 L 100 10/02/18 16:00 10/02/18 16:00 10/02/18 16:00 10/02/18 16:00 10/02/18 16:00 Intake and Output: 10/02/18 10/02/18 06:59 18:59 Intake Total 1000 1190 Output Total 780 Balance 220 1190 - Medications Medications: Current Medications Allopurinol (Zyloprim) 100 mg NG DAILY [facility] Last Admin: 09/27/18 08:16 Dose: 100 mg Apixaban (Eliquis) 5 mg PO BID [facility]; Protocol Last Admin: 09/06/18 17:08 Dose: Not Given Meropenem 1 gm/ Sodium (Chloride) 100 mls @ 100 mls/hr IVPB Q8 [facility]; Protocol Last Admin: 10/02/18 16:10 Dose: 100 mls/hr Loratadine (Claritin) 10 mg PO DAILY [facility] Last Admin: 10/02/18 08:59 Dose: 10 mg Lorazepam (Ativan) 1 mg IVP Q4 PRN PRN Reason: Agitation Last Admin: 10/02/18 09:17 Dose: 1 mg Metoprolol Tartrate (Lopressor) 12.5 mg PO Q12 [facility] Last Admin: 09/06/18 21:59 Dose: Not Given Pantoprazole Sodium (Protonix Inj) 40 mg IVP DAILY [facility] Last Admin: 10/02/18 09:00 Dose: 40 mg - Labs Labs: - Additional Findings Additional findings: - Constitutional Appears: Chronically Ill Additional comments: intubated but awake - Eye Exam Eye Exam: PERRL - ENT Exam Additional comments: ET and OGT in place - Neck Exam Additional comments: supple - Respiratory Exam Additional comments: On the vent - Cardiovascular Exam Cardiovascular Exam: Tachycardia, +S1, +S2 - GI/Abdominal Exam Additional comments: distended hypoactive BS umbilical region with mass like lesion with denuded skin , no pus, bloody discharge scant only - Extremities Exam Additional comments: b/l 1+ edema in LE and left hand edema - Neurological Exam Additional comments: more alert and responds to questions by nodding yes or no. - Skin Additional comments: right breast entirely covered with fungating looking round erythematous lesions . macular rash all over torso and b/l arms and upper thighs and chest region and has moved up to her face and her eyelids as well but the rash overall is less tense Laboratory Results - last 72 hr 09/30/18 09/30/18 09/30/18 00:48 01:00 03:43 WBC RBC Hgb Hct MCV MCH MCHC RDW Plt Count MPV Neut % (Auto) Lymph % (Auto) Storey % (Auto) Eos % (Auto) Baso % (Auto) Neut # (Auto) Lymph # (Auto) Storey # (Auto) Eos # (Auto) Baso # (Auto) PT INR APTT pCO2 46 H 28 L pO2 35 L* 95 HCO3 26.9 28.5 H ABG pH 7.40 7.58 H ABG Total CO2 29.9 H 27.2 ABG O2 Saturation 73.4 L 99.7 H ABG O2 Content 10.3 L 12.5 L ABG Base Excess 3.2 H 4.6 H ABG Hemoglobin 10.5 L 9.1 L ABG Carboxyhemoglobin 3.2 H 1.8 H POC ABG HHb (Measured) 25.3 H 0.3 ABG Methemoglobin 1.7 1.4 ABG O2 Capacity 14.0 L 12.5 L Frederic Test Yes Yes A-a O2 Difference 264.0 227.0 Hgb O2 Saturation 69.8 L 96.5 Vent Mode A/c A/c Mechanical Rate 12 12 FiO2 50.0 50.0 Tidal Volume 400 400 PEEP 5 5 Crit Value Called To Madisyn montiel Crit Value Called By Chauncey fuentes rt Crit Value Read Back Y Blood Gas Notified Time 52 Sodium Potassium Chloride Carbon Dioxide Anion Gap BUN Creatinine Est GFR ( Amer) Est GFR (Non-Af Amer) Random Glucose Calcium Phosphorus Magnesium Total Bilirubin AST ALT Alkaline Phosphatase Ammonia 14 Total Protein Albumin Globulin Albumin/Globulin Ratio Vancomycin Trough 09/30/18 09/30/18 09/30/18 04:45 04:45 04:45 WBC 6.1 D RBC 2.86 L Hgb 8.8 L D Hct 26.4 L MCV 92.0 MCH 30.8 MCHC 33.4 RDW 14.6 H Plt Count 112 L MPV Neut % (Auto) Lymph % (Auto) Storey % (Auto) Eos % (Auto) Baso % (Auto) Neut # (Auto) Lymph # (Auto) Storey # (Auto) Eos # (Auto) Baso # (Auto) PT INR APTT pCO2 pO2 HCO3 ABG pH ABG Total CO2 ABG O2 Saturation ABG O2 Content ABG Base Excess ABG Hemoglobin ABG Carboxyhemoglobin POC ABG HHb (Measured) ABG Methemoglobin ABG O2 Capacity Frederic Test A-a O2 Difference Hgb O2 Saturation Vent Mode Mechanical Rate FiO2 Tidal Volume PEEP Crit Value Called To Crit Value Called By Crit Value Read Back Blood Gas Notified Time Sodium 154 H Potassium 3.9 Chloride 120 H Carbon Dioxide 28 Anion Gap 10 BUN 63 H Creatinine 0.9 Est GFR ( Amer) > 60 Est GFR (Non-Af Amer) > 60 Random Glucose 154 H Calcium 7.5 L Phosphorus Magnesium Total Bilirubin 0.7 AST 54 H D ALT 44 Alkaline Phosphatase 71 Ammonia Total Protein 4.9 L Albumin 2.1 L Globulin 2.8 Albumin/Globulin Ratio 0.7 L Vancomycin Trough 18.9 H 10/01/18 10/01/18 10/01/18 05:00 05:00 05:00 WBC 6.3 RBC 2.90 L Hgb 9.0 L Hct 26.7 L MCV 92.2 MCH 31.2 H MCHC 33.8 RDW 14.8 H Plt Count 103 L MPV Neut % (Auto) Lymph % (Auto) Storey % (Auto) Eos % (Auto) Baso % (Auto) Neut # (Auto) Lymph # (Auto) Storey # (Auto) Eos # (Auto) Baso # (Auto) PT INR APTT pCO2 pO2 HCO3 ABG pH ABG Total CO2 ABG O2 Saturation ABG O2 Content ABG Base Excess ABG Hemoglobin ABG Carboxyhemoglobin POC ABG HHb (Measured) ABG Methemoglobin ABG O2 Capacity Frederic Test A-a O2 Difference Hgb O2 Saturation Vent Mode Mechanical Rate FiO2 Tidal Volume PEEP Crit Value Called To Crit Value Called By Crit Value Read Back Blood Gas Notified Time Sodium 151 H Potassium 3.7 Chloride 118 H Carbon Dioxide 30 Anion Gap 7 L BUN 61 H Creatinine 0.8 Est GFR ( Amer) > 60 Est GFR (Non-Af Amer) > 60 Random Glucose 108 H Calcium 7.5 L Phosphorus Magnesium Total Bilirubin 0.6 AST 45 H ALT 43 Alkaline Phosphatase 79 Ammonia Total Protein 4.8 L Albumin 2.1 L Globulin 2.7 Albumin/Globulin Ratio 0.8 L Vancomycin Trough 12.6 H 10/01/18 10/01/18 10/02/18 05:54 09:10 04:30 WBC 4.5 L RBC 2.64 L Hgb 8.2 L Hct 24.5 L MCV 92.6 MCH 31.0 MCHC 33.5 RDW 14.9 H Plt Count 70 L D MPV 10.9 Neut % (Auto) 60.0 Lymph % (Auto) 34.4 Storey % (Auto) 4.3 Eos % (Auto) 0.2 Baso % (Auto) 1.1 Neut # (Auto) 2.7 Lymph # (Auto) 1.6 Storey # (Auto) 0.2 Eos # (Auto) 0.0 Baso # (Auto) 0.0 PT INR APTT pCO2 22 L 37 pO2 167 H 87 HCO3 30.3 H 29.7 H ABG pH 7.70 H* 7.51 H ABG Total CO2 27.9 30.6 H ABG O2 Saturation 99.3 H 99.6 H ABG O2 Content 9.2 L 12.5 L ABG Base Excess 6.8 H 6.1 H ABG Hemoglobin 6.4 L 9.1 L ABG Carboxyhemoglobin 1.1 1.6 H POC ABG HHb (Measured) 0.7 0.4 ABG Methemoglobin 1.1 1.3 ABG O2 Capacity 9.3 L 12.6 L Frederic Test Yes Yes A-a O2 Difference 162.0 223.0 Hgb O2 Saturation 97.1 96.7 Vent Mode A/c A/c Mechanical Rate 12 10 FiO2 50.0 50.0 Tidal Volume 400 350 PEEP 5 5 Crit Value Called To Yovany holland rn Crit Value Called By 333 Crit Value Read Back Y Blood Gas Notified Time 617 Sodium Potassium Chloride Carbon Dioxide Anion Gap BUN Creatinine Est GFR ( Amer) Est GFR (Non-Af Amer) Random Glucose Calcium Phosphorus Magnesium Total Bilirubin AST ALT Alkaline Phosphatase Ammonia Total Protein Albumin Globulin Albumin/Globulin Ratio Vancomycin Trough 10/02/18 10/02/18 10/02/18 04:30 04:30 04:33 WBC RBC Hgb Hct MCV MCH MCHC RDW Plt Count MPV Neut % (Auto) Lymph % (Auto) Storey % (Auto) Eos % (Auto) Baso % (Auto) Neut # (Auto) Lymph # (Auto) Storey # (Auto) Eos # (Auto) Baso # (Auto) PT 13.9 H INR 1.2 APTT 30.5 pCO2 47 H pO2 83 HCO3 27.1 ABG pH 7.39 ABG Total CO2 29.9 H ABG O2 Saturation 99.4 H ABG O2 Content 16.3 ABG Base Excess 2.9 ABG Hemoglobin 12.2 ABG Carboxyhemoglobin 2.6 H POC ABG HHb (Measured) 0.6 ABG Methemoglobin 2.0 ABG O2 Capacity 16.4 Frederic Test Yes A-a O2 Difference 215.0 Hgb O2 Saturation 94.8 L Vent Mode A/c Mechanical Rate 10 FiO2 50.0 Tidal Volume 350 PEEP 5 Crit Value Called To Crit Value Called By Crit Value Read Back Blood Gas Notified Time Sodium 150 H Potassium 3.5 L Chloride 119 H Carbon Dioxide 29 Anion Gap 6 L BUN 52 H Creatinine 0.7 Est GFR ( Amer) > 60 Est GFR (Non-Af Amer) > 60 Random Glucose 118 H Calcium 7.2 L Phosphorus 3.7 Magnesium 1.9 Total Bilirubin AST ALT Alkaline Phosphatase Ammonia Total Protein Albumin Globulin Albumin/Globulin Ratio Vancomycin Trough Microbiology 09/25/18 12:10 Blood-Thru Central Line Blood Culture - Final NO GROWTH AFTER 5 DAYS 09/25/18 12:10 Blood-Thru Central Line Gram Stain - Final TEST NOT PERFORMED 09/20/18 14:00 Blood-Thru Central Line Blood Culture - Final NO GROWTH AFTER 5 DAYS 09/20/18 17:53 Trachasp Gram Stain - Final 09/20/18 17:53 Trachasp Sputum Culture - Final Yeast Species 09/20/18 17:53 Urine,Orellana Urine Culture - Final No Growth (<1,000 CFU/ML) 09/15/18 15:35 Blood-Thru Central Line Blood Culture - Final NO GROWTH AFTER 5 DAYS 09/15/18 15:35 Blood-Thru Central Line Gram Stain - Final TEST NOT PERFORMED 09/15/18 15:25 Blood-Thru Central Line Blood Culture - Final NO GROWTH AFTER 5 DAYS 09/15/18 15:25 Blood-Thru Central Line Gram Stain - Final TEST NOT PERFORMED 09/08/18 11:49 Blood-Venous Blood Culture - Final NO GROWTH AFTER 5 DAYS 09/08/18 11:49 Blood-Venous Gram Stain - Final TEST NOT PERFORMED 09/08/18 11:49 Blood-Venous Blood Culture - Final NO GROWTH AFTER 5 DAYS 09/08/18 11:49 Blood-Venous Gram Stain - Final TEST NOT PERFORMED 09/07/18 Unknown Blood-Thru Central Line Blood Culture - Final NO GROWTH AFTER 5 DAYS 09/07/18 Unknown Blood-Thru Central Line Gram Stain - Final TEST NOT PERFORMED 09/07/18 Unknown Blood-Thru Central Line Blood Culture - Final NO GROWTH AFTER 5 DAYS 09/07/18 Unknown Blood-Thru Central Line Gram Stain - Final TEST NOT PERFORMED 09/07/18 09:07 Trachasp Gram Stain - Final 09/07/18 09:07 Trachasp Sputum Culture - Final Yeast Species 09/04/18 11:25 Naris MRSA Culture (Admit) - Final MRSA NOT DETECTED Accession No. : [id number] Patient Name / ID : RYLEE ONEIL / [id number] Exam Date : 10/02/2018 04:15:47 ( Approved ) Study Comment : Sex / Age : F / 58Y Creator : Syed Avalos MD Dictator : Syed Avalos MD Communications Manager : Sandwich Maker : Syed Avalos MD Approver2 : Report Date : 10/02/2018 07:45:37 My Comment : Date of service: 10/02/2018 HISTORY: Patient is intubated. COMPARISON: Portable chest 10/01/2018. FINDINGS: LUNGS: Endotracheal and nasogastric tubes are not significantly changed in position as well as left MediPort. Interval moderate left pleural effusion is now identified with underlying airspace disease difficult to exclude. Left perihilar infiltrate unchanged as well as right perihilar region. Right basilar patchy density is increased. Trace right pleural effusion is not excluded. No pneumothorax bilaterally. PLEURA: As above. CARDIOVASCULAR: No aortic atherosclerotic calcification present. Cardiac silhouette is obscured. Mild underlying pulmonary vascular congestion suspected. OSSEOUS STRUCTURES: No significant abnormalities. VISUALIZED UPPER ABDOMEN: Normal. OTHER FINDINGS: None. IMPRESSION: New moderate left pleural effusion identified bilateral infiltrates reiterated. Limited due infiltrate or atelectasis seen at the right base. Trace right pleural effusion not excluded. Underlying pulmonary vascular congestion in question. 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 drug rash slightly better. remains intubated more lethargic today afebrile today so far. tachycardic today CXR report noted continues to have anemia and thrombocytopenia blood cx- 09/07/2018- neg x 8 trach asp cx- yeast stool c.diff- negative repeat UA- negative repeat urine cx- neg PLan- completed 14 days of empiric vanco. advise to continue IV meropnem for broad spectrum gram negative coverage.day #22 continue with IV diflucan day #22 above abx and antifungal being continues sine pt. is immunecompromised and is on vent.( they are empiric). monitor absolute PMN and if becomes 500 or less needs to be on neutropenic precautions as well. critical care time spent 30 minutes. prognosis poor.
[2018-10-02] MEDS ORDERED: Magnesium Sulfate 1 gm in D5W 1 GM/100 ML BAG IVPB ONE (17:31)
--- NOTE | 2018-10-02 17:40 | CARD ---
APPROVED REPORT Date of service: 10/01/2018 EKG Measurement Heart [id number] <Conclusion> Sinus tachycardia with short MA Nonspecific T wave abnormality Abnormal ECG
[2018-10-02] MEDS: Potassium CL 10 MEQ/50 ML 50 ML IVPB SCH ×2 (17:42→18:50)
--- NOTE | 2018-10-02 21:12 | CP.PCM.PN ---
Subjective - Date & Time of Evaluation Date of Evaluation: 10/02/18 Time of Evaluation: 15:00 - Subjective Subjective: SEEN ON RENAL F/U RENAL FUNCTION IS STABLE NA 151 --> 150 Objective - Vital Signs/Intake and Output Vital Signs (last 24 hours): Temp Pulse Resp BP Pulse Ox 99.3 F 128 H 26 H 102/57 L 100 10/02/18 20:00 10/02/18 20:00 10/02/18 20:00 10/02/18 20:00 10/02/18 20:00 Intake and Output: 10/02/18 10/03/18 18:59 06:59 Intake Total 1390 70 Output Total 350 Balance 1040 70 - Medications Medications: Current Medications Allopurinol (Zyloprim) 100 mg NG DAILY [facility] Last Admin: 09/27/18 08:16 Dose: 100 mg Apixaban (Eliquis) 5 mg PO BID [facility]; Protocol Last Admin: 09/06/18 17:08 Dose: Not Given Meropenem 1 gm/ Sodium (Chloride) 100 mls @ 100 mls/hr IVPB Q8 [facility]; Protocol Last Admin: 10/02/18 16:10 Dose: 100 mls/hr Norepinephrine Bitartrate 8 mg (/ Dextrose) 258 mls @ 4.84 mls/hr IV .Q24H [facility]; Protocol Stop: 10/03/18 16:33 Last Admin: 10/02/18 17:43 Dose: 4.84 mls/hr Loratadine (Claritin) 10 mg PO DAILY [facility] Last Admin: 10/02/18 08:59 Dose: 10 mg Lorazepam (Ativan) 1 mg IVP Q4 PRN PRN Reason: Agitation Last Admin: 10/02/18 09:17 Dose: 1 mg Metoprolol Tartrate (Lopressor) 12.5 mg PO Q12 [facility] Last Admin: 09/06/18 21:59 Dose: Not Given Pantoprazole Sodium (Protonix Inj) 40 mg IVP DAILY [facility] Last Admin: 10/02/18 09:00 Dose: 40 mg - Labs Labs: 10/02/18 04:30 10/02/18 04:30 PT 13.9 Seconds (9.8-13.1) H 10/02/18 04:30 INR 1.2 10/02/18 04:30 APTT 30.5 Seconds (25.6-37.1) 10/02/18 04:30 Assessment and Plan - Assessment and Plan (Free Text) Assessment: LOUIE .. PRE RENAL AZOTEMIA HYPER NATREMIA MMP P : C/O PRESENT CARE DISSOLVE ALL IV MEDS IN D5W COMPATIBLE
[2018-10-03] MEDS: Meropenem 1 GM in Sodium Chloride 0.9% 100 ML IVPB SCH ×3 (01:02→16:11)
[2018-10-03 04:18] LABS: ABG ALLEN TEST YES
[2018-10-03 04:54] LABS: ARTERIAL BLOOD GAS HCO3 27.1 mmol/L (21-28); ARTERIAL BLOOD GAS HEMOGLOBIN 12.2 g/dL (11.7-17.4); ARTERIAL BLOOD GAS O2 CAPACITY 16.4 mL/dL (16-24); ARTERIAL BLOOD GAS O2 CONTENT 16.3 ML/dL (15-23); ARTERIAL BLOOD GAS O2 SAT 99.4 % (95-98); ARTERIAL BLOOD GAS PCO2 47 mm/Hg (35-45); ARTERIAL BLOOD GAS PH 7.39 (7.35-7.45); ARTERIAL BLOOD GAS PO2 83 mm/Hg (80-100); ARTERIAL BLOOD GAS TCO2 29.9 mmol/L (22-28)
[2018-10-03 05:05] LABS: ARTERIAL BLOOD GAS HCO3 29.8 mmol/L (21-28); ARTERIAL BLOOD GAS HEMOGLOBIN 7.6 g/dL (11.7-17.4); ARTERIAL BLOOD GAS O2 CAPACITY 10.5 mL/dL (16-24); ARTERIAL BLOOD GAS O2 CONTENT 10.3 ML/dL (15-23); ARTERIAL BLOOD GAS O2 SAT 97.9 % (95-98); ARTERIAL BLOOD GAS PCO2 34 mm/Hg (35-45); ARTERIAL BLOOD GAS PH 7.54 (7.35-7.45); ARTERIAL BLOOD GAS PO2 71 mm/Hg (80-100); ARTERIAL BLOOD GAS TCO2 30.1 mmol/L (22-28)
[2018-10-03 05:26] LABS: BASO % 0.9 % (0.0-2.0); EOS % 0.1 % (0.0-4.0); HEMOGLOBIN 7.1 g/dL (12.0-16.0); LYMPH # 1.9 K/uL (1.0-4.3); LYMPH % 34.7 % (20.0-40.0); MEAN CELL VOLUME 93.2 fl (81.0-99.0); MEAN CORPUSCULAR HEMOGLOBIN 30.5 pg (27.0-31.0); MEAN CORPUSCULAR HGB CONC 32.7 g/dL (33.0-37.0); MEAN PLATELET VOLUME 11.4 fl (7.2-11.7); MONO # 0.2 K/uL (0.0-0.8); MONO % 4.2 % (0.0-10.0); NEUT # 3.3 K/uL (1.8-7.0); NEUT % 60.1 % (50.0-75.0); NRBC % 0.8 % (0.0-0.0); RBC 2.34 Mil/uL (3.80-5.20); RED CELL DISTRIBUTION WIDTH 15.2 % (11.5-14.5); WHITE BLOOD COUNT 5.4 K/uL (4.8-10.8)
[2018-10-03 05:28] LABS: INR 1.3; PROTHROMBIN TIME 14.9 Seconds (9.8-13.1)
[2018-10-03 05:30] LABS: PARTIAL THROMBOPLASTIN TIME 26.7 Seconds (25.6-37.1)
[2018-10-03 05:34] LABS: ALB/GLOB RATIO 0.8 (1.0-2.1); ALBUMIN 1.9 g/dL (3.5-5.0); ALT/SGPT 51 U/L (9-52); AST/SGOT 44 U/L (14-36); BLOOD UREA NITROGEN 52 mg/dl (7-17); CALCIUM 7.1 mg/dL (8.4-10.2); GFR NON-AFRICAN AMERICAN > 60
[2018-10-03] MEDS ORDERED: Propofol 10 mg/ml 1,000 MG/100 ML VIAL IV SCH (07:30)
[2018-10-03] MEDS: Potassium CL 10 MEQ/50 ML 50 ML IVPB SCH ×3 (08:03→12:45)
[2018-10-03] MEDS ORDERED: Sevoflurane - Inhalation Anesthetic Liq (250 ml) ONE (08:30)
--- NOTE | 2018-10-03 08:57 | RAD ---
Date of service: 10/03/2018 HISTORY: pt on a vent, daily ETT placement confirmation COMPARISON: Portable chest 10/02/2017 4:17 a.m.. FINDINGS: LUNGS: Endotracheal and nasogastric tubes are not significantly changed in position as well as left MediPort. The left hemithorax is further opacified with limited aeration remaining at the apex. Left pleural effusion is increased underlying atelectasis or infiltrate increased as well at the mid inferior lung zones. Small right pleural effusion remains likely. No pneumothorax limited right infrahilar airspace disease unchanged. PLEURA: As above. CARDIOVASCULAR: No aortic atherosclerotic calcification present. Cardiac size obscured by left-sided pulmonary opacity. Underlying pulmonary vascular congestion remains mild. OSSEOUS STRUCTURES: No significant abnormalities. VISUALIZED UPPER ABDOMEN: Normal. OTHER FINDINGS: None. IMPRESSION: Limited aeration is noted at the left lung with the apex preserved, due to increasing left pleural effusion and underlying airspace disease as well. Limited right infrahilar airspace disease stable with small right pleural effusion remaining.
--- NOTE | 2018-10-03 09:06 | CARD ---
APPROVED REPORT Date of service: 10/02/2018 EKG Measurement Heart [id number] ID [id number] <Conclusion> Sinus tachycardia Poor R wave progression in Precordial leads Non specific T-wave changes Abnormal ECG
[2018-10-03] MEDS ORDERED: Midazolam 2 MG/2 ML VIAL ONE (09:56)
[2018-10-03] MEDS ORDERED: Rocuronium 10 mg/ml (5 ml) ONE (09:56)
[2018-10-03] MEDS ORDERED: Lidocaine 2% w Epi 1:100,000 Inj IJ ONE ×2 (10:06→10:20)
--- NOTE | 2018-10-03 10:41 | CP.PCM.PN ---
Subjective - Date & Time of Evaluation Date of Evaluation: 10/03/18 Time of Evaluation: 10:41 - Subjective Subjective: ID note- Pt. seen and examined today in ICU. remains intubated and is lethargic. Objective - Vital Signs/Intake and Output Vital Signs (last 24 hours): Temp Pulse Resp BP Pulse Ox 99.7 F H 133 H 27 H 106/57 L 100 10/03/18 08:58 10/03/18 08:58 10/03/18 08:58 10/03/18 08:58 10/03/18 09:00 Intake and Output: 10/03/18 10/03/18 06:59 18:59 Intake Total 1010 210 Output Total 800 Balance 210 210 - Medications Medications: Current Medications Allopurinol (Zyloprim) 100 mg NG DAILY GLADIS Last Admin: 09/27/18 08:16 Dose: 100 mg Apixaban (Eliquis) 5 mg PO BID GLADIS; Protocol Last Admin: 09/06/18 17:08 Dose: Not Given Meropenem 1 gm/ Sodium (Chloride) 100 mls @ 100 mls/hr IVPB Q8 GLADIS; Protocol Last Admin: 10/03/18 08:02 Dose: 100 mls/hr Norepinephrine Bitartrate 8 mg (/ Dextrose) 258 mls @ 4.84 mls/hr IV .Q24H ONE; Protocol Stop: 10/03/18 16:33 Last Admin: 10/02/18 17:43 Dose: 4.84 mls/hr Potassium Chloride (Potassium Cl 10meq/50ml Sterile Water) 50 mls @ 50 mls/hr IVPB Q1 GLADIS Stop: 10/03/18 10:59 Last Admin: 10/03/18 09:02 Dose: 50 mls/hr Propofol (Diprivan) 1,000 mg in 100 mls @ 2.456 mls/hr IV .Q24H GLADIS; Protocol Stop: 10/04/18 07:27 Last Admin: 10/03/18 08:01 Dose: 5 mcg/kg/min, 2.456 mls/hr Loratadine (Claritin) 10 mg PO DAILY GLADIS Last Admin: 10/02/18 08:59 Dose: 10 mg Lorazepam (Ativan) 1 mg IVP Q4 PRN PRN Reason: Agitation Last Admin: 03/11/19 09:17 Dose: 1 mg Metoprolol Tartrate (Lopressor) 12.5 mg PO Q12 [facility] Last Admin: 09/06/18 21:59 Dose: Not Given Pantoprazole Sodium (Protonix Inj) 40 mg IVP DAILY [facility] Last Admin: 10/03/18 08:03 Dose: 40 mg - Labs Labs: - Additional Findings Additional findings: - Constitutional Appears: Chronically Ill Additional comments: intubated and lethargic - Eye Exam Eye Exam: PERRL - ENT Exam Additional comments: ET and OGT in place - Neck Exam Additional comments: supple - Respiratory Exam Additional comments: On the vent - Cardiovascular Exam Cardiovascular Exam: Tachycardia, +S1, +S2 - GI/Abdominal Exam Additional comments: distended hypoactive BS umbilical region with mass like lesion with denuded skin , no pus, bloody discharge scant only - Extremities Exam Additional comments: b/l 1+ edema in LE and left hand edema - Neurological Exam Additional comments: more alert and responds to questions by nodding yes or no. - Skin Additional comments: right breast entirely covered with fungating looking round erythematous lesions . maculopapular drug rash less intense today. Laboratory Results - last 72 hr 10/01/18 10/01/18 10/01/18 05:00 05:00 05:00 WBC 6.3 RBC 2.90 L Hgb 9.0 L Hct 26.7 L MCV 92.2 MCH 31.2 H MCHC 33.8 RDW 14.8 H Plt Count 103 L MPV Neut % (Auto) Lymph % (Auto) [place] % (Auto) Eos % (Auto) Baso % (Auto) Neut # (Auto) Lymph # (Auto) [place] # (Auto) Eos # (Auto) Baso # (Auto) PT INR APTT pCO2 pO2 HCO3 ABG pH ABG Total CO2 ABG O2 Saturation ABG O2 Content ABG Base Excess ABG Hemoglobin ABG Carboxyhemoglobin POC ABG HHb (Measured) ABG Methemoglobin ABG O2 Capacity Frederic Test A-a O2 Difference Hgb O2 Saturation Vent Mode Mechanical Rate FiO2 Tidal Volume PEEP Pressure Support Crit Value Called To Crit Value Called By Crit Value Read Back Blood Gas Notified Time Sodium 151 H Potassium 3.7 Chloride 118 H Carbon Dioxide 30 Anion Gap 7 L BUN 61 H Creatinine 0.8 Est GFR ( Amer) > 60 Est GFR (Non-Af Amer) > 60 Random Glucose 108 H Calcium 7.5 L Phosphorus Magnesium Total Bilirubin 0.6 AST 45 H ALT 43 Alkaline Phosphatase 79 Total Protein 4.8 L Albumin 2.1 L Globulin 2.7 Albumin/Globulin Ratio 0.8 L Vancomycin Trough 12.6 H Blood Type Antibody Screen Crossmatch BBK History Checked 10/01/18 10/01/18 10/02/18 05:54 09:10 04:30 WBC 4.5 L RBC 2.64 L Hgb 8.2 L Hct 24.5 L MCV 92.6 MCH 31.0 MCHC 33.5 RDW 14.9 H Plt Count 70 L D MPV 10.9 Neut % (Auto) 60.0 Lymph % (Auto) 34.4 Livingston % (Auto) 4.3 Eos % (Auto) 0.2 Baso % (Auto) 1.1 Neut # (Auto) 2.7 Lymph # (Auto) 1.6 Livingston # (Auto) 0.2 Eos # (Auto) 0.0 Baso # (Auto) 0.0 PT INR APTT pCO2 22 L 37 pO2 167 H 87 HCO3 30.3 H 29.7 H ABG pH 7.70 H* 7.51 H ABG Total CO2 27.9 30.6 H ABG O2 Saturation 99.3 H 99.6 H ABG O2 Content 9.2 L 12.5 L ABG Base Excess 6.8 H 6.1 H ABG Hemoglobin 6.4 L 9.1 L ABG Carboxyhemoglobin 1.1 1.6 H POC ABG HHb (Measured) 0.7 0.4 ABG Methemoglobin 1.1 1.3 ABG O2 Capacity 9.3 L 12.6 L Frederic Test Yes Yes A-a O2 Difference 162.0 223.0 Hgb O2 Saturation 97.1 96.7 Vent Mode A/c A/c Mechanical Rate 12 10 FiO2 50.0 50.0 Tidal Volume 400 350 PEEP 5 5 Pressure Support Crit Value Called To Yovany holland rn Crit Value Called By Ernst Crit Value Read Back Y Blood Gas Notified Time 617 Sodium Potassium Chloride Carbon Dioxide Anion Gap BUN Creatinine Est GFR ( Amer) Est GFR (Non-Af Amer) Random Glucose Calcium Phosphorus Magnesium Total Bilirubin AST ALT Alkaline Phosphatase Total Protein Albumin Globulin Albumin/Globulin Ratio Vancomycin Trough Blood Type Antibody Screen Crossmatch BBK History Checked 10/02/18 10/02/18 10/02/18 04:30 04:30 04:33 WBC RBC Hgb Hct MCV MCH MCHC RDW Plt Count MPV Neut % (Auto) Lymph % (Auto) Livingston % (Auto) Eos % (Auto) Baso % (Auto) Neut # (Auto) Lymph # (Auto) [place] # (Auto) Eos # (Auto) Baso # (Auto) PT 13.9 H INR 1.2 APTT 30.5 pCO2 47 H pO2 83 HCO3 27.1 ABG pH 7.39 ABG Total CO2 29.9 H ABG O2 Saturation 99.4 H ABG O2 Content 16.3 ABG Base Excess 2.9 ABG Hemoglobin 12.2 ABG Carboxyhemoglobin 2.6 H POC ABG HHb (Measured) 0.6 ABG Methemoglobin 2.0 ABG O2 Capacity 16.4 Frederic Test Yes A-a O2 Difference 215.0 Hgb O2 Saturation 94.8 L Vent Mode A/c Mechanical Rate 10 FiO2 50.0 Tidal Volume 350 PEEP 5 Pressure Support Crit Value Called To Crit Value Called By Crit Value Read Back Blood Gas Notified Time Sodium 150 H Potassium 3.5 L Chloride 119 H Carbon Dioxide 29 Anion Gap 6 L BUN 52 H Creatinine 0.7 Est GFR ( Amer) > 60 Est GFR (Non-Af Amer) > 60 Random Glucose 118 H Calcium 7.2 L Phosphorus 3.7 Magnesium 1.9 Total Bilirubin AST ALT Alkaline Phosphatase Total Protein Albumin Globulin Albumin/Globulin Ratio Vancomycin Trough Blood Type Antibody Screen Crossmatch BBK History Checked 10/03/18 10/03/18 10/03/18 04:01 04:40 04:40 WBC 5.4 RBC 2.34 L Hgb 7.1 L Hct 21.8 L MCV 93.2 MCH 30.5 MCHC 32.7 L RDW 15.2 H Plt Count 94 L D MPV 11.4 Neut % (Auto) 60.1 Lymph % (Auto) 34.7 Livingston % (Auto) 4.2 Eos % (Auto) 0.1 Baso % (Auto) 0.9 Neut # (Auto) 3.3 Lymph # (Auto) 1.9 [place]ston # (Auto) 0.2 Eos # (Auto) 0.0 Baso # (Auto) 0.0 PT 14.9 H INR 1.3 APTT 26.7 pCO2 34 L pO2 71 L HCO3 29.8 H ABG pH 7.54 H ABG Total CO2 30.1 H ABG O2 Saturation 97.9 ABG O2 Content 10.3 L ABG Base Excess 6.2 H ABG Hemoglobin 7.6 L ABG Carboxyhemoglobin 1.1 POC ABG HHb (Measured) 2.0 ABG Methemoglobin 1.6 ABG O2 Capacity 10.5 L Frederic Test Yes A-a O2 Difference 243.0 Hgb O2 Saturation 95.3 Vent Mode A/c Mechanical Rate 10 FiO2 50.0 Tidal Volume 350 PEEP 5 Pressure Support 15 Crit Value Called To Crit Value Called By Crit Value Read Back Blood Gas Notified Time Sodium Potassium Chloride Carbon Dioxide Anion Gap BUN Creatinine Est GFR ( Amer) Est GFR (Non-Af Amer) Random Glucose Calcium Phosphorus Magnesium Total Bilirubin AST ALT Alkaline Phosphatase Total Protein Albumin Globulin Albumin/Globulin Ratio Vancomycin Trough Blood Type Antibody Screen Crossmatch BBK History Checked 10/03/18 10/03/18 04:40 04:40 WBC RBC Hgb Hct MCV MCH MCHC RDW Plt Count MPV Neut % (Auto) Lymph % (Auto) [place] % (Auto) Eos % (Auto) Baso % (Auto) Neut # (Auto) Lymph # (Auto) [place] # (Auto) Eos # (Auto) Baso # (Auto) PT INR APTT pCO2 pO2 HCO3 ABG pH ABG Total CO2 ABG O2 Saturation ABG O2 Content ABG Base Excess ABG Hemoglobin ABG Carboxyhemoglobin POC ABG HHb (Measured) ABG Methemoglobin ABG O2 Capacity Frederic Test A-a O2 Difference Hgb O2 Saturation Vent Mode Mechanical Rate FiO2 Tidal Volume PEEP Pressure Support Crit Value Called To Crit Value Called By Crit Value Read Back Blood Gas Notified Time Sodium 148 Potassium 3.6 Chloride 117 H Carbon Dioxide 28 Anion Gap 7 L BUN 52 H Creatinine 0.7 Est GFR ( Amer) > 60 Est GFR (Non-Af Amer) > 60 Random Glucose 133 H Calcium 7.1 L Phosphorus 3.5 Magnesium 2.1 Total Bilirubin 0.7 AST 44 H ALT 51 Alkaline Phosphatase 88 Total Protein 4.3 L Albumin 1.9 L Globulin 2.5 Albumin/Globulin Ratio 0.8 L Vancomycin Trough Blood Type A POSITIVE Antibody Screen Negative Crossmatch See Detail BBK History Checked Patient has bt Microbiology 09/25/18 12:10 Blood-Thru Central Line Blood Culture - Final NO GROWTH AFTER 5 DAYS 09/25/18 12:10 Blood-Thru Central Line Gram Stain - Final TEST NOT PERFORMED 09/20/18 14:00 Blood-Thru Central Line Blood Culture - Final NO GROWTH AFTER 5 DAYS 09/20/18 17:53 Trachasp Gram Stain - Final 09/20/18 17:53 Trachasp Sputum Culture - Final Yeast Species 09/20/18 17:53 Urine,[place] Urine Culture - Final No Growth (<1,000 CFU/ML) 09/15/18 15:35 Blood-Thru Central Line Blood Culture - Final NO GROWTH AFTER 5 DAYS 09/15/18 15:35 Blood-Thru Central Line Gram Stain - Final TEST NOT PERFORMED 09/15/18 15:25 Blood-Thru Central Line Blood Culture - Final NO GROWTH AFTER 5 DAYS 09/15/18 15:25 Blood-Thru Central Line Gram Stain - Final TEST NOT PERFORMED 09/08/18 11:49 Blood-Venous Blood Culture - Final NO GROWTH AFTER 5 DAYS 09/08/18 11:49 Blood-Venous Gram Stain - Final TEST NOT PERFORMED 09/08/18 11:49 Blood-Venous Blood Culture - Final NO GROWTH AFTER 5 DAYS 09/08/18 11:49 Blood-Venous Gram Stain - Final TEST NOT PERFORMED 09/07/18 Unknown Blood-Thru Central Line Blood Culture - Final NO GROWTH AFTER 5 DAYS 09/07/18 Unknown Blood-Thru Central Line Gram Stain - Final TEST NOT PERFORMED 09/07/18 Unknown Blood-Thru Central Line Blood Culture - Final NO GROWTH AFTER 5 DAYS 09/07/18 Unknown Blood-Thru Central Line Gram Stain - Final TEST NOT PERFORMED 09/07/18 09:07 Trachasp Gram Stain - Final 09/07/18 09:07 Trachasp Sputum Culture - Final Yeast Species 09/04/18 11:25 Naris MRSA Culture (Admit) - Final MRSA NOT DETECTED 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 drug reaction rash improving. remains intubated more lethargic today afebrile today so far. tachycardic today CXR report noted continues to have anemia and thrombocytopenia blood cx- neg x 8 trach asp cx- yeast stool c.diff- negative repeat UA- negative repeat urine cx- neg PLan- completed 14 days of empiric vanco. advise to continue IV meropnem for broad spectrum gram negative coverage.day #23 continue with IV diflucan day #23 above abx and antifungal being continues sine pt. is immunecompromised and is on vent.( they are empiric). monitor absolute PMN and if becomes 500 or less needs to be on neutropenic precautions as well. critical care time spent 30 minutes.
--- NOTE | 2018-10-03 10:57 | PCM.SURG1 ---
Surgeon's Initial Post Op Note - Surgeon's Notes Surgeon: Dr. Hernandez [employer] Professor: Dr. Spencer PGY3, Dr. Umanzor PGY1 Type of Anesthesia: General Endo Anesthesia Administered By: Dr. Mendez Pre-Operative Diagnosis: Failure to Wean from vent Operative Findings: See operative dictation Post-Operative Diagnosis: Failure to wean from vent Operation Performed: Tracheostomy Specimen/Specimens Removed: None Estimated Blood Loss: EBL {In ML}: 1 Blood Products Given: N/A Drains Used: No Drains Post-Op Condition: Good Date of Surgery/Procedure: 10/03/18 Time of Surgery/Procedure: 10:57
--- NOTE | 2018-10-03 11:50 | CP.CCUPN ---
CCU Subjective - Physician Review Subjective (Free Text): 10/02/18 07:30 The patient was Seen and examined by me at the bedside, Medical records reviewed and Management issues were discussed and formulated with the house staff. Events reviewed Patient is 58 years old female with past medical history of anemia, anxiety, CHF, deep venous thrombosis, peripheral edema, pulmonary embolism and stage IV advanced metastatic breast cancer Status post chemotherapy 2 days ago Who initially presented to the emergency room on 09/03 for evaluation of intermittent chest pain and shortness of breath for the past 2 days In the emergency room patient stated that this chest pain resolved and breathing got better On exam she was comfortable and was admitted to the medical service Transfused 1 unit of packed red blood cell for hemoglobin of 6.9 also of note Patient recently underwent paracentesis 09/04 Patient was transferred to the intensive care unit after [employer] was called for severe respiratory distress and hypoxemia and patient found to be confused and respiratory distress BP was stable but she was tachycardic, tachypneic and saturating 88% on non- rebreathing mask she is to receive a stat dose of IV Lasix and transferred to the intensive care unit Upon admitting to the to the ICU she was emergently intubated by anesthesia and mechanically ventilated Patient self extubated last night and she was in distress and she was reintubated Currently patient is orally intubated, mechanically ventilated and sedated Off Diprivan She is tachypnic and was placed of PRN Ativan On PRVC, TV 350, RR 10, FIO2 50% She looks comfortable and in no distress Improved oxygenation blood pressure is better, Off Levophed Sepsis controlled, Afebrile today, Tmx 100.4 + Tachycardia, electrolyte including potassium and magnesium was supplemented, patient was giving as needed Ativan and as needed fentanyl, started on propofol drip this morning since she is going to the OR later on for the tracheostomy + Fluid overload on exam, Off Furosemide (Lasix) Most recent Blood 09/25 and urine 09/20 C/S negative This morning labs revealed No Leucocytosis, Stable renal function BUN/Cr and Plat count 70K, Hypernatremia improving Na 150 Discussed with the mother at the bedside patient condition, poor prognosis, treatment plans and alternative The mother is determined that she wants everything to be done for the patient and she is in agreement with pursuing trach and PEG and possible LTAC placement Patient scheduled for trach today CCU Objective - Vital Signs / Intake & Output Vital Signs (Last 4 hours): Vital Signs Temp Pulse Resp BP Pulse Ox 10/03/18 09:00 100 10/03/18 08:58 99.7 F H 133 H 27 H 106/57 L 10/03/18 08:40 99.9 F H 135 H 29 H 110/59 L Intake and Output (Last 8hrs): Intake & Output 10/02/18 10/03/18 10/03/18 22:59 06:59 14:59 Intake Total 1330 370 210 Output Total 350 800 Balance 980 -430 210 Weight 180 lb 8 oz Intake: IV 124 Intake, Piggyback 500 100 200 Tube Feeding 506 70 Blood Product 0 Red Blood Cells Cpd As1 0 Lr Unit [id number] Free Water Flush 200 200 Other 10 Red Blood Cells Cpd As1 10 Lr Unit [id number] Output: Urine 350 800 Urethral (Orellana) 350 800 - Physical Exam Head: Positive for: Atraumatic, Normocephalic Pupils: Positive for: PERRL Extroacular Muscles: Positive for: EOMI Conjunctiva: Negative for: Injected, Icteric Ears: Positive for: Normal Mouth: Positive for: Moist Mucous Membranes Nose (Internal): Positive for: Normal Inspection Neck: Positive for: Normal Range of Motion, Trachea Midline. Negative for: Meningeal Signs, MIDLINE TENDERNESS, Paraspinal Tenderness, JVD, Lymphadenopathy , Bruit, Other Respiratory/Chest: Positive for: Good Air Exchange, Rales, Retracting, Rhonchi. Negative for: Respiratory Distress, Accessory Muscle Use, Wheezes, Tachypneic Cardiovascular: Positive for: Regular Rate and Rhythm, Normal S1, S2, Peripheal Pulses Present. Negative for: Murmurs, Irregular Rhythm, Tachycardic, Bradycardic Abdomen: Positive for: Normal Bowel Sounds. Negative for: Tenderness Breast/Axillary: Positive for: Other (fungating necrotic mass to Right Breast) Upper Extremity: Positive for: Edema, NORMAL PULSES. Negative for: Normal Inspection, Cyanosis Lower Extremity: Positive for: Edema, NORMAL PULSES. Negative for: Normal Inspection Neurological: Positive for: Other (on ventilator, opens eyes to verbal stimuli) Psychiatric: Positive for: Other (Sedated and orally intubated) - Medications Active Medications: Active Medications Generic Name Dose Route Start Last Admin Trade Name Freq PRN Reason Stop Dose Admin Allopurinol 100 mg 09/14/18 09:00 09/27/18 08:16 Zyloprim NG 100 mg DAILY GLADIS Administration Apixaban 5 mg 09/04/18 09:00 09/06/18 17:08 Eliquis PO Not Given BID GLADIS Protocol Meropenem 1 gm/ Sodium 100 mls @ 100 mls/hr 09/18/18 12:45 10/03/18 08:02 Chloride IVPB 100 mls/hr Q8 GLADIS Administration Protocol Norepinephrine Bitartrate 8 mg 258 mls @ 4.84 mls/hr 10/02/18 16:34 10/02/18 17:43 / Dextrose IV 10/03/18 16:33 4.84 mls/hr .Q24H ONE Administration Protocol 2.5 MCG/MIN Propofol 1,000 mg in 100 mls @ 2.456 mls/hr 10/03/18 07:30 10/03/18 08:01 Diprivan IV 10/04/18 07:27 5 mcg/kg/min .Q24H GLADIS 2.456 mls/hr Administration Protocol 5 MCG/KG/MIN Loratadine 10 mg 09/29/18 12:15 10/02/18 08:59 Claritin PO 10 mg DAILY GLADIS Administration Lorazepam 1 mg 10/02/18 08:48 10/02/18 09:17 Ativan IVP 1 mg Q4 PRN Administration Agitation Metoprolol Tartrate 12.5 mg 09/03/18 23:45 09/06/18 21:59 Lopressor PO Not Given Q12 GLADIS Pantoprazole Sodium 40 mg 09/19/18 22:00 10/03/18 08:03 Protonix Inj IVP 40 mg DAILY GLADIS Administration - Patient Studies Lab Studies: Lab Studies 10/03/18 10/03/18 10/03/18 Range/Units 04:40 04:40 04:40 WBC (4.8-10.8) K/uL RBC (3.80-5.20) Mil/uL Hgb (12.0-16.0) g/dL Hct (34.0-47.0) % MCV (81.0-99.0) fl MCH (27.0-31.0) pg MCHC (33.0-37.0) g/dL RDW (11.5-14.5) % Plt Count (130-400) K/uL MPV (7.2-11.7) fl Neut % (Auto) (50.0-75.0) % Lymph % (Auto) (20.0-40.0) % [place] % (Auto) (0.0-10.0) % Eos % (Auto) (0.0-4.0) % Baso % (Auto) (0.0-2.0) % Neut # (Auto) (1.8-7.0) K/uL Lymph # (Auto) (1.0-4.3) K/uL [place] # (Auto) (0.0-0.8) K/uL Eos # (Auto) (0.0-0.7) K/uL Baso # (Auto) (0.0-0.2) K/uL PT 14.9 H (9.8-13.1) Seconds INR 1.3 APTT 26.7 (25.6-37.1) Seconds pCO2 (35-45) mm/Hg pO2 (80-100) mm/Hg HCO3 (21-28) mmol/L ABG pH (7.35-7.45) ABG Total CO2 (22-28) mmol/L ABG O2 Saturation (95-98) % ABG O2 Content (15-23) ML/dL ABG Base Excess (-2.0-3.0) mmol/L ABG Hemoglobin (11.7-17.4) g/dL ABG Carboxyhemoglobin (0.5-1.5) % POC ABG HHb (Measured) (0.0-5.0) % ABG Methemoglobin (0.0-3.0) % ABG O2 Capacity (16-24) mL/dL Frederic Test A-a O2 Difference mm/Hg Hgb O2 Saturation (95.0-98.0) % Vent Mode Mechanical Rate FiO2 % Tidal Volume PEEP Pressure Support Sodium 148 (132-148) mmol/l Potassium 3.6 (3.6-5.0) MMOL/L Chloride 117 H (98-107) mmol/L Carbon Dioxide 28 (22-30) mmol/L Anion Gap 7 L (10-20) BUN 52 H (7-17) mg/dl Creatinine 0.7 (0.7-1.2) mg/dl Est GFR ( Amer) > 60 Est GFR (Non-Af Amer) > 60 Random Glucose 133 H (65-105) mg/dL Calcium 7.1 L (8.4-10.2) mg/dL Phosphorus 3.5 (2.5-4.5) mg/dl Magnesium 2.1 (1.6-2.3) MG/DL Total Bilirubin 0.7 (0.2-1.3) mg/dl AST 44 H (14-36) U/L ALT 51 (9-52) U/L Alkaline Phosphatase 88 (38-126) U/L Total Protein 4.3 L (6.3-8.2) G/DL Albumin 1.9 L (3.5-5.0) g/dL Globulin 2.5 (2.2-3.9) gm/dL Albumin/Globulin Ratio 0.8 L (1.0-2.1) Blood Type A POSITIVE Antibody Screen Negative Crossmatch See Detail BBK History Checked Patient has bt 10/03/18 10/03/18 10/02/18 Range/Units 04:40 04:01 04:33 WBC 5.4 (4.8-10.8) K/uL RBC 2.34 L (3.80-5.20) Mil/uL Hgb 7.1 L (12.0-16.0) g/dL Hct 21.8 L (34.0-47.0) % MCV 93.2 (81.0-99.0) fl MCH 30.5 (27.0-31.0) pg MCHC 32.7 L (33.0-37.0) g/dL RDW 15.2 H (11.5-14.5) % Plt Count 94 L D (130-400) K/uL MPV 11.4 (7.2-11.7) fl Neut % (Auto) 60.1 (50.0-75.0) % Lymph % (Auto) 34.7 (20.0-40.0) % [place] % (Auto) 4.2 (0.0-10.0) % Eos % (Auto) 0.1 (0.0-4.0) % Baso % (Auto) 0.9 (0.0-2.0) % Neut # (Auto) 3.3 (1.8-7.0) K/uL Lymph # (Auto) 1.9 (1.0-4.3) K/uL [place] # (Auto) 0.2 (0.0-0.8) K/uL Eos # (Auto) 0.0 (0.0-0.7) K/uL Baso # (Auto) 0.0 (0.0-0.2) K/uL PT (9.8-13.1) Seconds INR APTT (25.6-37.1) Seconds pCO2 34 L 47 H (35-45) mm/Hg pO2 71 L 83 (80-100) mm/Hg HCO3 29.8 H 27.1 (21-28) mmol/L ABG pH 7.54 H 7.39 (7.35-7.45) ABG Total CO2 30.1 H 29.9 H (22-28) mmol/L ABG O2 Saturation 97.9 99.4 H (95-98) % ABG O2 Content 10.3 L 16.3 (15-23) ML/dL ABG Base Excess 6.2 H 2.9 (-2.0-3.0) mmol/L ABG Hemoglobin 7.6 L 12.2 (11.7-17.4) g/dL ABG Carboxyhemoglobin 1.1 2.6 H (0.5-1.5) % POC ABG HHb (Measured) 2.0 0.6 (0.0-5.0) % ABG Methemoglobin 1.6 2.0 (0.0-3.0) % ABG O2 Capacity 10.5 L 16.4 (16-24) mL/dL Frederic Test Yes A-a O2 Difference 243.0 215.0 mm/Hg Hgb O2 Saturation 95.3 94.8 L (95.0-98.0) % Vent Mode A/c A/c Mechanical Rate 10 10 FiO2 50.0 50.0 % Tidal Volume 350 350 PEEP 5 5 Pressure Support 15 Sodium (132-148) mmol/l Potassium (3.6-5.0) MMOL/L Chloride (98-107) mmol/L Carbon Dioxide (22-30) mmol/L Anion Gap (10-20) BUN (7-17) mg/dl Creatinine (0.7-1.2) mg/dl Est GFR ( Amer) Est GFR (Non-Af Amer) Random Glucose (65-105) mg/dL Calcium (8.4-10.2) mg/dL Phosphorus (2.5-4.5) mg/dl Magnesium (1.6-2.3) MG/DL Total Bilirubin (0.2-1.3) mg/dl AST (14-36) U/L ALT (9-52) U/L Alkaline Phosphatase (38-126) U/L Total Protein (6.3-8.2) G/DL Albumin (3.5-5.0) g/dL Globulin (2.2-3.9) gm/dL Albumin/Globulin Ratio (1.0-2.1) Blood Type Antibody Screen Crossmatch BBK History Checked Laboratory Results - last 24 hr 10/02/18 10/03/18 10/03/18 04:33 04:01 04:40 WBC 5.4 RBC 2.34 L Hgb 7.1 L Hct 21.8 L MCV 93.2 MCH 30.5 MCHC 32.7 L RDW 15.2 H Plt Count 94 L D MPV 11.4 Neut % (Auto) 60.1 Lymph % (Auto) 34.7 [place] % (Auto) 4.2 Eos % (Auto) 0.1 Baso % (Auto) 0.9 Neut # (Auto) 3.3 Lymph # (Auto) 1.9 [place] # (Auto) 0.2 Eos # (Auto) 0.0 Baso # (Auto) 0.0 PT INR APTT pCO2 47 H 34 L pO2 83 71 L HCO3 27.1 29.8 H ABG pH 7.39 7.54 H ABG Total CO2 29.9 H 30.1 H ABG O2 Saturation 99.4 H 97.9 ABG O2 Content 16.3 10.3 L ABG Base Excess 2.9 6.2 H ABG Hemoglobin 12.2 7.6 L ABG Carboxyhemoglobin 2.6 H 1.1 POC ABG HHb (Measured) 0.6 2.0 ABG Methemoglobin 2.0 1.6 ABG O2 Capacity 16.4 10.5 L Frederic Test Yes A-a O2 Difference 215.0 243.0 Hgb O2 Saturation 94.8 L 95.3 Vent Mode A/c A/c Mechanical Rate 10 10 FiO2 50.0 50.0 Tidal Volume 350 350 PEEP 5 5 Pressure Support 15 Sodium Potassium Chloride Carbon Dioxide Anion Gap BUN Creatinine Est GFR ( Amer) Est GFR (Non-Af Amer) Random Glucose Calcium Phosphorus Magnesium Total Bilirubin AST ALT Alkaline Phosphatase Total Protein Albumin Globulin Albumin/Globulin Ratio Blood Type Antibody Screen Crossmatch BBK History Checked 10/03/18 10/03/18 10/03/18 04:40 04:40 04:40 WBC RBC Hgb Hct MCV MCH MCHC RDW Plt Count MPV Neut % (Auto) Lymph % (Auto) [place] % (Auto) Eos % (Auto) Baso % (Auto) Neut # (Auto) Lymph # (Auto) [place] # (Auto) Eos # (Auto) Baso # (Auto) PT 14.9 H INR 1.3 APTT 26.7 pCO2 pO2 HCO3 ABG pH ABG Total CO2 ABG O2 Saturation ABG O2 Content ABG Base Excess ABG Hemoglobin ABG Carboxyhemoglobin POC ABG HHb (Measured) ABG Methemoglobin ABG O2 Capacity Frederic Test A-a O2 Difference Hgb O2 Saturation Vent Mode Mechanical Rate FiO2 Tidal Volume PEEP Pressure Support Sodium 148 Potassium 3.6 Chloride 117 H Carbon Dioxide 28 Anion Gap 7 L BUN 52 H Creatinine 0.7 Est GFR ( Amer) > 60 Est GFR (Non-Af Amer) > 60 Random Glucose 133 H Calcium 7.1 L Phosphorus 3.5 Magnesium 2.1 Total Bilirubin 0.7 AST 44 H ALT 51 Alkaline Phosphatase 88 Total Protein 4.3 L Albumin 1.9 L Globulin 2.5 Albumin/Globulin Ratio 0.8 L Blood Type A POSITIVE Antibody Screen Negative Crossmatch See Detail BBK History Checked Patient has bt Radiology Impressions: Radiology Impressions Chest X-Ray 10/03/18 04:00 IMPRESSION: Limited aeration is noted at the left lung with the apex preserved, due to increasing left pleural effusion and underlying airspace disease as well. Limited right infrahilar airspace disease stable with small right pleural effusion remaining. Critical Care Progress Note - Nutrition Nutrition: Nutrition Category Date Time Status NPO Diet [DIET] Diets 10/03/18 Breakfast Active Assessment/Plan (1) Acute respiratory failure with hypoxia Current Visit: Yes Status: Acute Priority: High Comment: Intubated for hypoxemic respiratory failure strict I&O, Maintian negative fluid balance Continue diuresis as blood pressure permits She is not a candidate for spontaneous breathing since she is not clinically stable and very poor mental status Discussed with the mother at the bedside patient condition, poor prognosis, treatment plans and alternative Patient scheduled for trach today (2) Congestive heart failure (CHF) Current Visit: Yes Status: Acute Priority: High Comment: Intubated for hypoxemic respiratory failure strict I&O, Maintian negative fluid balance Continue diuresis as blood pressure permits PRN Furosemide (Lasix) (3) DVT of lower extremity, bilateral Current Visit: No Status: Chronic Priority: Medium Comment: Patient with H/O provoked DVT and Pulmonary embolism Continue Apixaban (Eliquis) 5 mg PO BID (4) Pulmonary embolism on left Current Visit: No Status: Chronic Priority: Medium Comment: Patient with H/O provoked DVT and Pulmonary embolism Continue Apixaban (Eliquis) 5 mg PO BID (5) Breast CA Current Visit: Yes Status: Acute Priority: High (6) Severe sepsis Current Visit: Yes Status: Acute Priority: Medium Comment: Continue IV Vancomycin 500 mg IVPB Q12 and Meropenem 1 gm IVBP Q8H (7) Anemia Current Visit: Yes Status: Acute Priority: High Comment: Anemia is likely multifactorial from chronic disease and malignancy No signs of active bleeding at that time Transfuse as needed Hematology oncology consult appreciated
--- NOTE | 2018-10-03 15:26 | RAD ---
Date of service: 10/03/2018 PROCEDURE: CHEST RADIOGRAPH, 1 VIEW HISTORY: s/p tracheostomy COMPARISON: Multiple serial examinations preceding the most recent study: October 03, 2018 Time of the most recent examination: 05:00. FINDINGS: LUNGS: Consolidative changes bilaterally left greater than right. PLEURA: Stable bilateral pleural effusions. CARDIOVASCULAR: No aortic atherosclerotic calcification present. Venous access catheter in stable, satisfactory position. OSSEOUS STRUCTURES: No significant abnormalities. VISUALIZED UPPER ABDOMEN: Normal. OTHER FINDINGS: Recently placed tracheostomy device satisfactory position replacing previously identified endotracheal tube. Stable position of nasogastric tube. IMPRESSION: Satisfactory position of recently placed tracheostomy device. Otherwise no interval change.
--- NOTE | 2018-10-03 22:14 | CP.PCM.PN ---
Subjective - Date & Time of Evaluation Date of Evaluation: 10/02/18 Time of Evaluation: 10:00 - Subjective Subjective: Vented, opens eyes Objective - Vital Signs/Intake and Output Vital Signs (last 24 hours): Temp Pulse Resp BP Pulse Ox 98.4 F 120 H 27 H 101/56 L 95 10/03/18 16:00 10/03/18 18:55 10/03/18 18:55 10/03/18 18:55 10/03/18 18:55 Intake and Output: 10/03/18 10/04/18 18:59 06:59 Intake Total 1445 Output Total 550 Balance 895 - Medications Medications: Current Medications Allopurinol (Zyloprim) 100 mg NG DAILY GLADIS Last Admin: 09/27/18 08:16 Dose: 100 mg Apixaban (Eliquis) 5 mg PO BID GLADIS; Protocol Last Admin: 09/06/18 17:08 Dose: Not Given Meropenem 1 gm/ Sodium (Chloride) 100 mls @ 100 mls/hr IVPB Q8 GLADIS; Protocol Last Admin: 10/03/18 16:11 Dose: 100 mls/hr Propofol (Diprivan) 1,000 mg in 100 mls @ 2.456 mls/hr IV .Q24H GLADIS; Protocol Stop: 10/04/18 07:27 Last Titration: 10/03/18 11:00 Dose: 0 mcg/kg/min, 0 mls/hr Loratadine (Claritin) 10 mg PO DAILY GLADIS Last Admin: 10/03/18 16:10 Dose: 10 mg Lorazepam (Ativan) 1 mg IVP Q4 PRN PRN Reason: Agitation Last Admin: 10/02/18 09:17 Dose: 1 mg Metoprolol Tartrate (Lopressor) 12.5 mg PO Q12 GLADIS Last Admin: 09/06/18 21:59 Dose: Not Given Pantoprazole Sodium (Protonix Inj) 40 mg IVP DAILY GLADIS Last Admin: 10/03/18 08:03 Dose: 40 mg - Labs Labs: 10/03/18 04:40 10/03/18 04:40 PT 14.9 Seconds (9.8-13.1) H 10/03/18 04:40 INR 1.3 10/03/18 04:40 APTT 26.7 Seconds (25.6-37.1) 10/03/18 04:40 - Head Exam Head Exam: ATRAUMATIC - Eye Exam Eye Exam: Normal appearance - ENT Exam ENT Exam: Mucous Membranes Dry - Respiratory Exam Respiratory Exam: NORMAL BREATHING PATTERN - Cardiovascular Exam Cardiovascular Exam: +S1, +S2 - GI/Abdominal Exam GI & Abdominal Exam: Normal Bowel Sounds - Extremities Exam Extremities Exam: Pedal Edema Assessment and Plan (1) Pancytopenia Assessment & Plan: secondary to chemotherapy blood loss - vaginal/hematuria; possible IR uterine embolization plt count improved transfusion support PRN Status: Acute (2) Pulmonary embolism Assessment & Plan: unable to anticoagulate due to blood loss Status: Acute (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 Wishes full code and agreeable to trach + PEG Status: Acute
--- NOTE | 2018-10-03 22:16 | CP.PCM.PN ---
Subjective - Date & Time of Evaluation Date of Evaluation: 10/03/18 Time of Evaluation: 17:00 - Subjective Subjective: Vented, s/p trach Objective - Vital Signs/Intake and Output Vital Signs (last 24 hours): Temp Pulse Resp BP Pulse Ox 98.4 F 120 H 27 H 101/56 L 95 10/03/18 16:00 10/03/18 18:55 10/03/18 18:55 10/03/18 18:55 10/03/18 18:55 Intake and Output: 10/03/18 10/04/18 18:59 06:59 Intake Total 1445 Output Total 550 Balance 895 - Medications Medications: Current Medications Allopurinol (Zyloprim) 100 mg NG DAILY [facility] Last Admin: 09/27/18 08:16 Dose: 100 mg Apixaban (Eliquis) 5 mg PO BID GLADIS; Protocol Last Admin: 09/06/18 17:08 Dose: Not Given Meropenem 1 gm/ Sodium (Chloride) 100 mls @ 100 mls/hr IVPB Q8 GLADIS; Protocol Last Admin: 10/03/18 16:11 Dose: 100 mls/hr Propofol (Diprivan) 1,000 mg in 100 mls @ 2.456 mls/hr IV .Q24H GLADIS; Protocol Stop: 10/04/18 07:27 Last Titration: 10/03/18 11:00 Dose: 0 mcg/kg/min, 0 mls/hr Loratadine (Claritin) 10 mg PO DAILY GLADIS Last Admin: 10/03/18 16:10 Dose: 10 mg Lorazepam (Ativan) 1 mg IVP Q4 PRN PRN Reason: Agitation Last Admin: 10/02/18 09:17 Dose: 1 mg Metoprolol Tartrate (Lopressor) 12.5 mg PO Q12 GLADIS Last Admin: 09/06/18 21:59 Dose: Not Given Pantoprazole Sodium (Protonix Inj) 40 mg IVP DAILY GLADIS Last Admin: 10/03/18 08:03 Dose: 40 mg - Labs Labs: 10/03/18 04:40 10/03/18 04:40 PT 14.9 Seconds (9.8-13.1) H 10/03/18 04:40 INR 1.3 10/03/18 04:40 APTT 26.7 Seconds (25.6-37.1) 10/03/18 04:40 - Head Exam Head Exam: ATRAUMATIC - Eye Exam Eye Exam: Normal appearance - ENT Exam ENT Exam: Mucous Membranes Dry - Respiratory Exam Respiratory Exam: NORMAL BREATHING PATTERN - Cardiovascular Exam Cardiovascular Exam: +S1, +S2 - GI/Abdominal Exam GI & Abdominal Exam: Normal Bowel Sounds - Extremities Exam Extremities Exam: Pedal Edema Assessment and Plan (1) Pancytopenia Assessment & Plan: secondary to chemotherapy blood loss - vaginal/hematuria; possible IR uterine embolization plt count improved transfusion support PRN Status: Acute (2) Pulmonary embolism Assessment & Plan: unable to anticoagulate due to blood loss Status: Acute (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 Wishes full code and agreeable to trach + PEG Status: Acute
--- NOTE | 2018-10-03 22:54 | CP.PCM.PN ---
Subjective - Date & Time of Evaluation Date of Evaluation: 10/01/18 Time of Evaluation: 19:10 - Subjective Subjective: Seen and examined at the bed side. Patient continue to decline. Anasarca, continue to be intubated and unresponsive. NOK refused DNR/DNI and end of lefe care. Unstable to discharge as patient is on Pressors, and will need G-Tube to send her even to long Acute Care Facility. Patient is MOF, Septic and Cardiogenic shock with Severe Cardiomyopathy, Anemia, Thrombo-cytopenia, Active bleeding, Stage IV Malignancy and extensive rashes. Objective - Vital Signs/Intake and Output Vital Signs (last 24 hours): Temp Pulse Resp BP Pulse Ox 98.4 F 120 H 27 H 101/56 L 95 10/03/18 16:00 10/03/18 18:55 10/03/18 18:55 10/03/18 18:55 10/03/18 18:55 Intake and Output: 10/03/18 10/04/18 18:59 06:59 Intake Total 1445 Output Total 550 Balance 895 - Medications Medications: Current Medications Allopurinol (Zyloprim) 100 mg NG DAILY GLADIS Last Admin: 09/27/18 08:16 Dose: 100 mg Apixaban (Eliquis) 5 mg PO BID GLADIS; Protocol Last Admin: 09/06/18 17:08 Dose: Not Given Meropenem 1 gm/ Sodium (Chloride) 100 mls @ 100 mls/hr IVPB Q8 GLADIS; Protocol Last Admin: 10/03/18 16:11 Dose: 100 mls/hr Propofol (Diprivan) 1,000 mg in 100 mls @ 2.456 mls/hr IV .Q24H GLADIS; Protocol Stop: 10/04/18 07:27 Last Titration: 10/03/18 11:00 Dose: 0 mcg/kg/min, 0 mls/hr Loratadine (Claritin) 10 mg PO DAILY GLADIS Last Admin: 10/03/18 16:10 Dose: 10 mg Lorazepam (Ativan) 1 mg IVP Q4 PRN PRN Reason: Agitation Last Admin: 10/02/18 09:17 Dose: 1 mg Metoprolol Tartrate (Lopressor) 12.5 mg PO Q12 GLADIS Last Admin: 09/06/18 21:59 Dose: Not Given Pantoprazole Sodium (Protonix Inj) 40 mg IVP DAILY GLADIS Last Admin: 10/03/18 08:03 Dose: 40 mg - Labs Labs: 10/03/18 04:40 10/03/18 04:40 PT 14.9 Seconds (9.8-13.1) H 10/03/18 04:40 INR 1.3 10/03/18 04:40 APTT 26.7 Seconds (25.6-37.1) 10/03/18 04:40 Assessment and Plan (1) Acute respiratory failure with hypoxemia Status: Acute (2) Ascites, malignant Status: Acute (3) Congestive heart failure (CHF) Status: Acute (4) Stage IV breast cancer in female Status: Acute (5) Severe anemia Status: Resolved (6) DVT of lower extremity, bilateral Status: Chronic (7) Thrombocytopenia Status: Resolved - Assessment and Plan (Free Text) Plan: Continue Current Care
[2018-10-04] MEDS: Meropenem 1 GM in Sodium Chloride 0.9% 100 ML IVPB SCH ×3 (01:21→16:51)
[2018-10-04 04:08] LABS: ABG ALLEN TEST YES; ARTERIAL BLOOD GAS HCO3 28.1 mmol/L (21-28); ARTERIAL BLOOD GAS HEMOGLOBIN 10.4 g/dL (11.7-17.4); ARTERIAL BLOOD GAS O2 CAPACITY 14.2 mL/dL (16-24); ARTERIAL BLOOD GAS O2 CONTENT 14.1 ML/dL (15-23); ARTERIAL BLOOD GAS O2 SAT 99.1 % (95-98); ARTERIAL BLOOD GAS PCO2 35 mm/Hg (35-45); ARTERIAL BLOOD GAS PO2 81 mm/Hg (80-100); ARTERIAL BLOOD GAS TCO2 28.4 mmol/L (22-28)
[2018-10-04 05:31] LABS: ALB/GLOB RATIO 0.8 (1.0-2.1); ALT/SGPT 50 U/L (9-52); AST/SGOT 42 U/L (14-36); BLOOD UREA NITROGEN 46 mg/dl (7-17); CALCIUM 7.3 mg/dL (8.4-10.2); GFR NON-AFRICAN AMERICAN > 60
[2018-10-04 05:36] LABS: MEAN CORPUSCULAR HEMOGLOBIN 29.9 pg (27.0-31.0); MEAN CORPUSCULAR HGB CONC 33.6 g/dL (33.0-37.0); RBC 3.44 Mil/uL (3.80-5.20); RED CELL DISTRIBUTION WIDTH 16.2 % (11.5-14.5); WHITE BLOOD COUNT 7.2 K/uL (4.8-10.8)
[2018-10-04 05:40] LABS: HEMOGLOBIN 10.3 g/dL (12.0-16.0); MEAN CELL VOLUME 89.2 fl (81.0-99.0)
--- NOTE | 2018-10-04 08:26 | OP ---
PROCEDURE DATE: 10/03/2018 PREOPERATIVE DIAGNOSIS: Ventilatory failure. POSTOPERATIVE DIAGNOSIS: Ventilatory Failure. PROCEDURE: Surgical tracheostomy. SURGEON: Afshin Hernandez MD STRAP BUCKLER: Dwayne Spencer DO TYPE OF ANESTHESIA: General endotracheal anesthesia. ANESTHESIA ADMINISTERED BY: Darrion Mendez MD INDICATIONS: The patient is a 58-year-old female who has been intubated in the ICU since 09/04/2018 due to multiple PE, DVTs, and endstage metastatic breast cancer. Due to prolonged intubation, the decision was made and requested by the family that a tracheostomy be placed. DESCRIPTION OF PROCEDURE: Operative consent was signed by the mother. The patient was then taken to the operating room and left in her ICU bed. The patient was in the supine position. The neck was then hyperextended using multiple pumps underneath the shoulders in order to lift the patient, in order to hyperextend. The neck and anterior chest were prepped and draped in the usual sterile fashion. Using a marker, the sternal notch was demarcated as well as the cricoid cartilage. The thyroid and cricoid cartilage were palpated and the skin and subcutaneous tissues in that area were anesthetized using 1% lidocaine with epinephrine. A vertical midline incision was made from the middle of the thyroid cartilage just superior to the sternal notch. Using electrocautery, we dissected down to the trachea. The second tracheal ring was identified. Tracheostomy hook was then placed between the first and second tracheal ring and retracted superiorly. A vertical incision was made through the second and third rings then a transverse incision was made using the Allis. The tracheal flap was elevated superiorly using a tracheal dilator, which was used to dilate the tract. The endotracheal tube was retracted under direct vision to the level of the opening. A#6 tracheostomy tube was inserted and advanced. The endotracheal tube was completely withdrawn. The position was confirmed using end-tidal CO2. Hemostasis was achieved and the incision utilizing using electrocautery. The tracheostomy was sutured in place and tracheostomy ties were tied around the neck. The patient tolerated the procedure well and was taken back to the ICU in stable condition after all counts were confirmed correct. Dwayne Spencer DO Afshin Hernandez MD [facility] # [id number] VALERIE
--- NOTE | 2018-10-04 11:18 | CP.PCM.PN ---
Subjective - Date & Time of Evaluation Date of Evaluation: 10/04/18 Time of Evaluation: 11:29 - Subjective Subjective: General Surgery Note for Dr. Hernandez Patient seen and examined at bedside. patient is s/p open tracheostomy POD#1. She is still on mechanical ventilation 350/10/60%/5. Patient receiving pulmicort tube feeds 60 cc/hr. Patient remain tachycardia and on levophed 5 mcg. ROS unobtainable due to clinical condition. Objective - Vital Signs/Intake and Output Vital Signs (last 24 hours): Temp Pulse Resp BP Pulse Ox 99.5 F 130 H 26 H 99/69 L 96 10/04/18 11:00 10/04/18 11:00 10/04/18 11:00 10/04/18 11:00 10/04/18 11:00 Intake and Output: 10/04/18 10/04/18 06:59 18:59 Intake Total 1610 406 Output Total 490 Balance 1120 406 - Medications Medications: Current Medications Allopurinol (Zyloprim) 100 mg NG DAILY [facility] Last Admin: 09/27/18 08:16 Dose: 100 mg Apixaban (Eliquis) 5 mg PO BID [facility]; Protocol Last Admin: 09/06/18 17:08 Dose: Not Given Meropenem 1 gm/ Sodium (Chloride) 100 mls @ 100 mls/hr IVPB Q8 [facility]; Protocol Last Admin: 10/04/18 08:41 Dose: 100 mls/hr Loratadine (Claritin) 10 mg PO DAILY [facility] Last Admin: 10/04/18 08:41 Dose: 10 mg Lorazepam (Ativan) 1 mg IVP Q4 PRN PRN Reason: Agitation Last Admin: 10/02/18 09:17 Dose: 1 mg Metoprolol Tartrate (Lopressor) 12.5 mg PO Q12 [facility] Last Admin: 09/06/18 21:59 Dose: Not Given Pantoprazole Sodium (Protonix Inj) 40 mg IVP DAILY [facility] Last Admin: 10/04/18 08:41 Dose: 40 mg - Labs Labs: 10/04/18 04:35 10/04/18 04:35 PT 14.9 Seconds (9.8-13.1) H 10/03/18 04:40 INR 1.3 10/03/18 04:40 APTT 26.7 Seconds (25.6-37.1) 10/03/18 04:40 - Constitutional Appears: Chronically Ill - Head Exam Head Exam: ATRAUMATIC, NORMOCEPHALIC - Eye Exam Eye Exam: Normal appearance Pupil Exam: PERRL - ENT Exam ENT Exam: Mucous Membranes Dry - Neck Exam Additional comments: s/p tracheostomy - Respiratory Exam Additional comments: trach and mechanical ventilation 350/10/60%/5 - Cardiovascular Exam Cardiovascular Exam: Tachycardia - GI/Abdominal Exam GI & Abdominal Exam: Soft. absent: Tenderness - Extremities Exam Extremities Exam: Normal Capillary Refill - Neurological Exam Neurological Exam: Altered - Psychiatric Exam Psychiatric exam: Flat Affect - Skin Skin Exam: Dry, Warm Additional comments: right breast fungating mass Assessment and Plan - Assessment and Plan (Free Text) Assessment: 58F with PMH of breast ca and failure to wean from vent is s/p open tracheostomy POD#1 Plan: -Wean vent as tolerated -Will remove sutures 10/13 -Medical management as per ICU -Discussed with Dr. David Rodriguez PGY2
--- NOTE | 2018-10-04 13:19 | CT ---
Date of Procedure: 09/28/2018 PROCEDURE: Ultrasound-guided paracentesis, CPT 34018 Medications: 7 cc 1% Lidocaine HISTORY: Ascites, abdominal pain, malignancy TECHNIQUE: Following informed consent , the patient was placed supine on the stretcher and the site was marked. A limited abdominal ultrasound was performed that showed a large amount of intra-abdominal fluid. Procedural time out was called and the Pt's abdomen was marked and prepped and draped in the usual sterile fashion. Ultrasound-guided large volume paracentesis performed. A total of 3.6 liters of straw colored fluid was removed without complication. IMPRESSION: Ultrasound-guided large volume paracentesis.
--- NOTE | 2018-10-04 14:32 | RAD ---
Date of service: 10/04/2018 HISTORY: Arvind doherty, on ventilator COMPARISON: 10/03/2018. FINDINGS: Tracheostomy tube terminates in the mid trachea. The left IJV line terminates at the cavoatrial junction. The nasogastric tube terminates in the stomach. LUNGS: There are low lung volumes. There is interval improved aeration in the right lower lobe. There is also improved aeration in the left upper lobe. PLEURA: Small right and large left pleural effusions. CARDIOVASCULAR: The heart is normal in size. No aortic atherosclerotic calcifications present. OSSEOUS STRUCTURES: Within normal limits for the patient's age. VISUALIZED UPPER ABDOMEN: Normal. OTHER FINDINGS: None. IMPRESSION: Improved aeration in both lungs with improvement in bilateral pleural effusions with residual small right and large left effusions. Stable position of tracheostomy tube, nasogastric tube and left IJV line.
--- NOTE | 2018-10-04 14:42 | CP.PCM.PN ---
Subjective - Date & Time of Evaluation Date of Evaluation: 10/04/18 Time of Evaluation: 13:00 - Subjective Subjective: ID Note- Patient seen and examined today in ICU. pt. is s/p trache, remains on the vent . she does open her eyes when her name is called. Objective - Vital Signs/Intake and Output Vital Signs (last 24 hours): Temp Pulse Resp BP Pulse Ox 99.5 F 130 H 26 H 98/60 L 96 10/04/18 13:00 10/04/18 13:00 10/04/18 13:00 10/04/18 13:00 10/04/18 13:00 Intake and Output: 10/04/18 10/04/18 06:59 18:59 Intake Total 1610 676 Output Total 490 Balance 1120 676 - Medications Medications: Current Medications Allopurinol (Zyloprim) 100 mg NG DAILY [facility] Last Admin: 09/27/18 08:16 Dose: 100 mg Apixaban (Eliquis) 5 mg PO BID [facility]; Protocol Last Admin: 09/06/18 17:08 Dose: Not Given Meropenem 1 gm/ Sodium (Chloride) 100 mls @ 100 mls/hr IVPB Q8 [facility]; Protocol Last Admin: 10/04/18 08:41 Dose: 100 mls/hr Loratadine (Claritin) 10 mg PO DAILY [facility] Last Admin: 10/04/18 08:41 Dose: 10 mg Lorazepam (Ativan) 1 mg IVP Q4 PRN PRN Reason: Agitation Last Admin: 10/02/18 09:17 Dose: 1 mg Metoprolol Tartrate (Lopressor) 12.5 mg PO Q12 [facility] Last Admin: 09/06/18 21:59 Dose: Not Given Pantoprazole Sodium (Protonix Inj) 40 mg IVP DAILY [facility] Last Admin: 10/04/18 08:41 Dose: 40 mg - Labs Labs: - Additional Findings Additional findings: - Constitutional Appears: Chronically Ill Additional comments: intubated and lethargic - Eye Exam Eye Exam: PERRL - ENT Exam Additional comments: s/p trache - Respiratory Exam Additional comments: On the vent - Cardiovascular Exam Cardiovascular Exam: Tachycardia, +S1, +S2 - GI/Abdominal Exam Additional comments: distended hypoactive BS umbilical region with mass like lesion with denuded skin , no pus, bloody discharge scant only - Extremities Exam Additional comments: b/l 1+ edema in LE and left hand edema - Neurological Exam Additional comments: more alert and responds to questions by nodding yes or no. - Skin Additional comments: right breast entirely covered with fungating looking round erythematous lesions . maculopapular drug rash less intense today. Laboratory Results - last 72 hr 10/02/18 10/02/18 10/02/18 04:30 04:30 04:30 WBC 4.5 L RBC 2.64 L Hgb 8.2 L Hct 24.5 L MCV 92.6 MCH 31.0 MCHC 33.5 RDW 14.9 H Plt Count 70 L D MPV 10.9 Neut % (Auto) 60.0 Lymph % (Auto) 34.4 Fleming % (Auto) 4.3 Eos % (Auto) 0.2 Baso % (Auto) 1.1 Neut # (Auto) 2.7 Lymph # (Auto) 1.6 Fleming # (Auto) 0.2 Eos # (Auto) 0.0 Baso # (Auto) 0.0 PT 13.9 H INR 1.2 APTT 30.5 pCO2 pO2 HCO3 ABG pH ABG Total CO2 ABG O2 Saturation ABG O2 Content ABG Base Excess ABG Hemoglobin ABG Carboxyhemoglobin POC ABG HHb (Measured) ABG Methemoglobin ABG O2 Capacity Frederic Test A-a O2 Difference Hgb O2 Saturation Vent Mode Mechanical Rate FiO2 Tidal Volume PEEP Pressure Support Sodium 150 H Potassium 3.5 L Chloride 119 H Carbon Dioxide 29 Anion Gap 6 L BUN 52 H Creatinine 0.7 Est GFR ( Amer) > 60 Est GFR (Non-Af Amer) > 60 Random Glucose 118 H Calcium 7.2 L Phosphorus 3.7 Magnesium 1.9 Total Bilirubin AST ALT Alkaline Phosphatase Total Protein Albumin Globulin Albumin/Globulin Ratio Blood Type Antibody Screen Crossmatch BBK History Checked 10/02/18 10/03/18 10/03/18 04:33 04:01 04:40 WBC 5.4 RBC 2.34 L Hgb 7.1 L Hct 21.8 L MCV 93.2 MCH 30.5 MCHC 32.7 L RDW 15.2 H Plt Count 94 L D MPV 11.4 Neut % (Auto) 60.1 Lymph % (Auto) 34.7 Fleming % (Auto) 4.2 Eos % (Auto) 0.1 Baso % (Auto) 0.9 Neut # (Auto) 3.3 Lymph # (Auto) 1.9 Fleming # (Auto) 0.2 Eos # (Auto) 0.0 Baso # (Auto) 0.0 PT INR APTT pCO2 47 H 34 L pO2 83 71 L HCO3 27.1 29.8 H ABG pH 7.39 7.54 H ABG Total CO2 29.9 H 30.1 H ABG O2 Saturation 99.4 H 97.9 ABG O2 Content 16.3 10.3 L ABG Base Excess 2.9 6.2 H ABG Hemoglobin 12.2 7.6 L ABG Carboxyhemoglobin 2.6 H 1.1 POC ABG HHb (Measured) 0.6 2.0 ABG Methemoglobin 2.0 1.6 ABG O2 Capacity 16.4 10.5 L Frederic Test Yes Yes A-a O2 Difference 215.0 243.0 Hgb O2 Saturation 94.8 L 95.3 Vent Mode A/c A/c Mechanical Rate 10 10 FiO2 50.0 50.0 Tidal Volume 350 350 PEEP 5 5 Pressure Support 15 Sodium Potassium Chloride Carbon Dioxide Anion Gap BUN Creatinine Est GFR ( Amer) Est GFR (Non-Af Amer) Random Glucose Calcium Phosphorus Magnesium Total Bilirubin AST ALT Alkaline Phosphatase Total Protein Albumin Globulin Albumin/Globulin Ratio Blood Type Antibody Screen Crossmatch BBK History Checked 10/03/18 10/03/18 10/03/18 04:40 04:40 04:40 WBC RBC Hgb Hct MCV MCH MCHC RDW Plt Count MPV Neut % (Auto) Lymph % (Auto) Fleming % (Auto) Eos % (Auto) Baso % (Auto) Neut # (Auto) Lymph # (Auto) Fleming # (Auto) Eos # (Auto) Baso # (Auto) PT 14.9 H INR 1.3 APTT 26.7 pCO2 pO2 HCO3 ABG pH ABG Total CO2 ABG O2 Saturation ABG O2 Content ABG Base Excess ABG Hemoglobin ABG Carboxyhemoglobin POC ABG HHb (Measured) ABG Methemoglobin ABG O2 Capacity Frederic Test A-a O2 Difference Hgb O2 Saturation Vent Mode Mechanical Rate FiO2 Tidal Volume PEEP Pressure Support Sodium 148 Potassium 3.6 Chloride 117 H Carbon Dioxide 28 Anion Gap 7 L BUN 52 H Creatinine 0.7 Est GFR ( Amer) > 60 Est GFR (Non-Af Amer) > 60 Random Glucose 133 H Calcium 7.1 L Phosphorus 3.5 Magnesium 2.1 Total Bilirubin 0.7 AST 44 H ALT 51 Alkaline Phosphatase 88 Total Protein 4.3 L Albumin 1.9 L Globulin 2.5 Albumin/Globulin Ratio 0.8 L Blood Type A POSITIVE Antibody Screen Negative Crossmatch See Detail BBK History Checked Patient has bt 10/04/18 10/04/18 10/04/18 04:00 04:35 04:35 WBC 7.2 RBC 3.44 L Hgb 10.3 L D Hct 30.7 L MCV 89.2 D MCH 29.9 MCHC 33.6 RDW 16.2 H Plt Count 113 L MPV Neut % (Auto) Lymph % (Auto) Fleming % (Auto) Eos % (Auto) Baso % (Auto) Neut # (Auto) Lymph # (Auto) Fleming # (Auto) Eos # (Auto) Baso # (Auto) PT INR APTT pCO2 35 pO2 81 HCO3 28.1 H ABG pH 7.50 H ABG Total CO2 28.4 H ABG O2 Saturation 99.1 H ABG O2 Content 14.1 L ABG Base Excess 4.1 H ABG Hemoglobin 10.4 L ABG Carboxyhemoglobin 1.9 H POC ABG HHb (Measured) 0.9 ABG Methemoglobin 1.2 ABG O2 Capacity 14.2 L Frederic Test Yes A-a O2 Difference 303.0 Hgb O2 Saturation 96.0 Vent Mode A/c Mechanical Rate 10 FiO2 60.0 Tidal Volume 350 PEEP 5 Pressure Support Sodium 147 Potassium 3.8 Chloride 117 H Carbon Dioxide 29 Anion Gap 5 L BUN 46 H Creatinine 0.7 Est GFR ( Amer) > 60 Est GFR (Non-Af Amer) > 60 Random Glucose 108 H Calcium 7.3 L Phosphorus Magnesium Total Bilirubin 0.7 AST 42 H ALT 50 Alkaline Phosphatase 114 Total Protein 4.6 L Albumin 2.0 L Globulin 2.6 Albumin/Globulin Ratio 0.8 L Blood Type Antibody Screen Crossmatch BBK History Checked Microbiology 09/25/18 12:10 Blood-Thru Central Line Blood Culture - Final NO GROWTH AFTER 5 DAYS 09/25/18 12:10 Blood-Thru Central Line Gram Stain - Final TEST NOT PERFORMED 09/20/18 14:00 Blood-Thru Central Line Blood Culture - Final NO GROWTH AFTER 5 DAYS 09/20/18 17:53 Trachasp Gram Stain - Final 09/20/18 17:53 Trachasp Sputum Culture - Final Yeast Species 09/20/18 17:53 Urine,Orellana Urine Culture - Final No Growth (<1,000 CFU/ML) 09/15/18 15:35 Blood-Thru Central Line Blood Culture - Final NO GROWTH AFTER 5 DAYS 09/15/18 15:35 Blood-Thru Central Line Gram Stain - Final TEST NOT PERFORMED 09/15/18 15:25 Blood-Thru Central Line Blood Culture - Final NO GROWTH AFTER 5 DAYS 09/15/18 15:25 Blood-Thru Central Line Gram Stain - Final TEST NOT PERFORMED 09/08/18 11:49 Blood-Venous Blood Culture - Final NO GROWTH AFTER 5 DAYS 09/08/18 11:49 Blood-Venous Gram Stain - Final TEST NOT PERFORMED 09/08/18 11:49 Blood-Venous Blood Culture - Final NO GROWTH AFTER 5 DAYS 09/08/18 11:49 Blood-Venous Gram Stain - Final TEST NOT PERFORMED 09/07/18 Unknown Blood-Thru Central Line Blood Culture - Final NO GROWTH AFTER 5 DAYS 09/07/18 Unknown Blood-Thru Central Line Gram Stain - Final TEST NOT PERFORMED 09/07/18 Unknown Blood-Thru Central Line Blood Culture - Final NO GROWTH AFTER 5 DAYS 09/07/18 Unknown Blood-Thru Central Line Gram Stain - Final TEST NOT PERFORMED 09/07/18 09:07 Trachasp Gram Stain - Final 09/07/18 09:07 Trachasp Sputum Culture - Final Yeast Species 09/04/18 11:25 Naris MRSA Culture (Admit) - Final MRSA NOT DETECTED 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 drug reaction rash improving. s/p trache lethargic afebrile today so far. tachycardic today CXR report noted continues to have anemia and thrombocytopenia blood cx- neg x 8 trach asp cx- yeast stool c.diff- negative repeat UA- negative repeat urine cx- neg PLan- completed 14 days of empiric vanco. advise to continue IV meropnem for broad spectrum gram negative coverage.day #24 continue with IV diflucan day #24 above abx and antifungal being continues sine pt. is immunecompromised and is on vent.( they are empiric). critical care time spent 30 minutes.
--- NOTE | 2018-10-04 15:58 | CP.PCM.CON ---
History of Present Illness - History of Present Illness History of Present Illness: History of Present Illness Palliative Care Consult requested by Dr. Das for Goals of Care discussion and code status. Patient is a 58 year old female admitted to the hospital on 09/03/18 from home with Chest pain and SOB. As per patient, the symptoms appeared 2 days prior to ER. Upon arrival to ER chest pain was resolved and SOB was getting better according to the patient. Patient states that she also started chemo for her breast cancer 2 days prior to ER visit. Patient was admitted for ARF w hypoxemia, malignant ascites, CHF, Stage IV breast Ca, and severe anemia. Patient was transferred to a med surg unit where she was an FIELD [employer] due to respiratory distress. The patient was subsequently transferred to ICU and intubated. While in icu patient received multiple transfusions for anemia and eventually placed on pressors for hypotension. CXR 10/04 showed improvement in Bilateral Pleural effusion w/ residual small rig ht and left effusions PMH: anemia, anxiety, CHF, DVT, PE, Stage IV breast Ca Social Hx: former smoker Family History: not known at this time Review of Systems - Review of Systems Review of Systems: ROS not obtained due to patient current condition, patient non verbal and has trach Past Patient History - Infectious Disease Hx of Infectious Diseases: None - Past Medical History & Family History Past Medical History?: Yes Past Family History: Reviewed and not pertinent - Past Social History Smoking Status: Former Smoker Alcohol: None Drugs: Denies - CARDIAC Hx Congestive Heart Failure: Yes Hx Peripheral Edema: Yes - PULMONARY Hx Asthma: No Hx Pulmonary Embolism: Yes - NEUROLOGICAL Hx Neurological Disorder: No - HEENT Hx HEENT Problems: No - RENAL Hx Chronic Kidney Disease: No - ENDOCRINE/METABOLIC Hx Endocrine Disorders: No - HEMATOLOGICAL/ONCOLOGICAL Hx Anemia: Yes - INTEGUMENTARY Hx Dermatological Problems: No - MUSCULOSKELETAL/RHEUMATOLOGICAL Hx Arthritis: No - GASTROINTESTINAL Hx Gastrointestinal Disorders: No - GENITOURINARY/GYNECOLOGICAL Hx Genitourinary Disorders: No - PSYCHIATRIC Hx Anxiety: Yes - SURGICAL HISTORY Hx Surgeries: Yes Hx Section: Yes Other/Comment: right breast bx - ANESTHESIA Hx Anesthesia: Yes Hx Anesthesia Reactions: No Hx Malignant Hyperthermia: No Meds Allergies/Adverse Reactions: Allergies Allergy/AdvReac Type Severity Reaction Status Date / Time midodrine Allergy RASH Verified 09/29/18 15:32 phenylephrine Allergy RASH Verified 09/29/18 15:32 acetaminophen [From Tylenol] AdvReac Unknown SHORTNESS Verified 08/29/18 08:11 OF BREATH - Medications Medications: Current Medications Allopurinol (Zyloprim) 100 mg NG DAILY [facility] Last Admin: 09/27/18 08:16 Dose: 100 mg Apixaban (Eliquis) 5 mg PO BID [facility]; Protocol Last Admin: 09/06/18 17:08 Dose: Not Given Meropenem 1 gm/ Sodium (Chloride) 100 mls @ 100 mls/hr IVPB Q8 [facility]; Protocol Last Admin: 10/04/18 08:41 Dose: 100 mls/hr Loratadine (Claritin) 10 mg PO DAILY [facility] Last Admin: 10/04/18 08:41 Dose: 10 mg Lorazepam (Ativan) 1 mg IVP Q4 PRN PRN Reason: Agitation Last Admin: 10/02/18 09:17 Dose: 1 mg Metoprolol Tartrate (Lopressor) 12.5 mg PO Q12 [facility] Last Admin: 09/06/18 21:59 Dose: Not Given Pantoprazole Sodium (Protonix Inj) 40 mg IVP DAILY [facility] Last Admin: 10/04/18 08:41 Dose: 40 mg Physical Exam - Constitutional Appears: In Acute Distress, Cachectic, Chronically Ill - Head Exam Head Exam: NORMAL INSPECTION, NORMOCEPHALIC - Eye Exam Eye Exam: Normal appearance - ENT Exam ENT Exam: Mucous Membranes Dry - Neck Exam Additional comments: trach - Cardiovascular Exam Cardiovascular Exam: Tachycardia - GI/Abdominal Exam GI & Abdominal Exam: Distended, Firm - Rectal Exam Rectal Exam: Deferred - Exam Exam: NORMAL INSPECTION - Extremities Exam Additional comments: edema - Back Exam Back exam: NORMAL INSPECTION - Neurological Exam Neurological exam: Alert - Skin Skin Exam: Pallor, Warm Additional comments: not intact Results - Vital Signs Recent Vital Signs: Last Vital Signs Temp 99.5 F 10/04/18 15:00 Pulse 131 H 10/04/18 15:00 Resp 25 H 10/04/18 15:00 BP 104/72 10/04/18 15:00 Pulse Ox 96 10/04/18 15:00 - Labs Result Diagrams: 10/04/18 04:35 10/04/18 04:35 Labs: Laboratory Results - last 24 hr 10/04/18 10/04/18 10/04/18 04:00 04:35 04:35 WBC 7.2 RBC 3.44 L Hgb 10.3 L D Hct 30.7 L MCV 89.2 D MCH 29.9 MCHC 33.6 RDW 16.2 H Plt Count 113 L pCO2 35 pO2 81 HCO3 28.1 H ABG pH 7.50 H ABG Total CO2 28.4 H ABG O2 Saturation 99.1 H ABG O2 Content 14.1 L ABG Base Excess 4.1 H ABG Hemoglobin 10.4 L ABG Carboxyhemoglobin 1.9 H POC ABG HHb (Measured) 0.9 ABG Methemoglobin 1.2 ABG O2 Capacity 14.2 L Frederic Test Yes A-a O2 Difference 303.0 Hgb O2 Saturation 96.0 Vent Mode A/c Mechanical Rate 10 FiO2 60.0 Tidal Volume 350 PEEP 5 Sodium 147 Potassium 3.8 Chloride 117 H Carbon Dioxide 29 Anion Gap 5 L BUN 46 H Creatinine 0.7 Est GFR ( Amer) > 60 Est GFR (Non-Af Amer) > 60 Random Glucose 108 H Calcium 7.3 L Total Bilirubin 0.7 AST 42 H ALT 50 Alkaline Phosphatase 114 Total Protein 4.6 L Albumin 2.0 L Globulin 2.6 Albumin/Globulin Ratio 0.8 L Assessment & Plan - Assessment and Plan (Free Text) Assessment: Assessment Palliative Consult Full Code, there is no advanced directive in chart. Palliative Performance Scale 10% I reviewed medical records, all diagnostic studies, examined patient at the bedside and interviewed the mother(who is decision maker), brother, and sister in law. -not alert, seems to responds to touch . Patient is non verbal and does not follow commands. -not ambulatory and requires max assist for ADLs and repositioning -Skin is not intact, multiple indentations and skin openings on R breast -Breath sounds are diminished, Patient O2sat 96% via mechanical ventilation through trach -HR 130, tachycardic , pulses present, has upper and lower extremity edema -Abdomen firm and round, receiving feeding via OGT -incontinent to urine and stool( has hardwick and flexiseal) -bedbound -Patient seems to make faces when touch elicits pain Most recent Vitals are 98/60, HR:130, R:26, T:99.5, O2sat 96% via mechanical vent Goals of Care and Code Status: discussed at family meeting today with mother, brother, and sister in law using video interior design consultant. Sealer Dry Cell id [id number]. Patient condition and severity discussed at length with family. The meaning of full treatment vs DNR/DNI were explained. All family members verbalized understanding. The patients brother and sister voiced that they believe patient should be DNR/DNI but the patients mother who is decision maker insists that she wants everything to be done at this time. The mother states that she understands prognosis is poor but says she is hoping for a miracle. The patients brother and sister in law state that they are going to have a honest conversation with the patients mom to help her understand DNR/DNI is the right idea. Palliative contact information given if any decisions are made or if family want any guidance on this issue or any other issues. Impression Stage IV breast Ca Acute respiratory Failure Decreased Mobility Goals of Care Needed Suggestion Max assist for repositioning and hygiene care Revisit Goals of care and code status with family (contact information given to patients mom) Continue with full treatment and full code on patient as per mothers wishes Palliative care will remain on board for family support Advanced care planning 1 hour
--- NOTE | 2018-10-04 20:25 | PN ---
DATE: 10/04/2018 CRITICAL CARE PROGRESS NOTE SUBJECTIVE: The patient in ICU bed 431. Time spent 35 minutes. The patient is seen and evaluated at the bedside. Past medical, surgical, family and social history reviewed. Case discussed in multidisciplinary ICU rounds this morning. A 58-year-old female with stage IV inflammatory metastatic carcinoma right with malignant pleural effusion, ascites, peritoneal carcinomatosis, bony metastasis status post chemo, also have mullerian tract CA. Admitted with shortness of breath, required intubation, mechanical ventilation for hypoxic respiratory failure. Clinical course significant for significant leukopenia, thrombocytopenia, drop in hemoglobin, and recurrent enlarging ascites requiring paracentesis, status post transfusion multiple units of packed red blood cells, platelets. Postop day #1 status post tracheostomy on AC/PRVC rate 10, tidal volume 350, FIO2 60%, PEEP of 5, observed rate 20, exhaled tidal volume 380, minute ventilation 8.7 liters, saturation 98%, peak airway pressure 26, mean airway pressure 12, end-tidal CO2 32. PHYSICAL EXAMINATION: HEAD, EYES, EARS, NOSE AND THROAT: Pupils are round, reactive to light and accommodation. Extraocular muscles intact. Conjunctivae pale. Sclerae white. Tracheostomy site with minimal serosanguineous drainage. CHEST: Bilateral breath sounds diminished intensity. HEART: Rhythm irregular. ABDOMEN: Bowel sounds are present, distended with positive fluid thrill, oozing ascitic fluid through the site of puncture. GENITOURINARY: Orellana in place, adequate urine output. SKIN: Sacral breakdown. NEURO: Awake but lethargic, slow to respond. LABORATORY DATA: WBC 7.2, hemoglobin 10.3, hematocrit of 30.7, platelet count of 113, status post transfusion packed red blood cells. PT 14.9, INR 1.3, PTT 26.7. ABG, pH of 7.50, pCO2 of 35, pO2 81, oxygen saturation 99.1 on AC 350, 60%, PEEP of 5. SMA-7, sodium 147, potassium 3.8, chloride 117, CO2 of 29, blood urea nitrogen 46, creatinine 0.7, random glucose 108, calcium 7.3, total bilirubin 0.7, AST 42, ALT 50, alkaline phosphatase 114, total protein 4.6, albumin 2. Urinalysis, RBC 29, WBC of 17. Toxicology, vancomycin trough level on 10/01/2018, 12.6. Serology, C diff tox B gene, not detected. Microbiology, sputum culture positive for yeast. Repeat blood culture on 09/25/2018, no growth. Chest x-ray done this morning, tracheostomy Shiley in place. No pneumothorax; bilateral, left more than right pleural effusion with atelectasis. CURRENT MEDICATIONS: Protonix 40 IV daily, Lopressor 12.5 mg p.o. every 12 hours, meropenem 1 g IV every 8 hours, lorazepam 1 mg IV every 4 hours p.r.n., Claritin 10 mg p.o. daily, Eliquis 5 mg p.o. twice daily, allopurinol 100 mg NG daily, Altace 5 mg p.o. twice daily, meropenem 1 g IV every 8 hours, Protonix 40 IV daily. IMPRESSION: 1. Neuro: No significant change in the mental status, remains lethargic secondary to ongoing septic metabolic encephalopathy. CT head negative. 2. Respiratory: Acute hypoxic respiratory failure, remains ventilated, status post tracheostomy day one, adequate oxygenation, CO2 within the range. Continue to wean off the ventilator if tolerated. 3. Cardiac: History of hypotension, on low dose Levophed, history of congestive heart failure, tachycardia borderline, secondary to ongoing inflammation, anemia and worsening ascites. 4. GI. Ascites secondary to peritoneal carcinomatosis status post paracentesis, continues to leak ascitic fluid through the puncture site. 5. Endocrinology. No history of hypothyroidism. Blood sugar is under control. 6. Infectious Disease. Malignant pleural effusion, malignant ascites with bone metastases, fungal infection in the sputum, on meropenem and antifungal coverage. Stool Clostridium difficile negative. 7. Head of bed 30 degrees up. Orellana in place. Continue for prevention of sacral decubiti and adequate measurement of intake output. Prognosis remains guarded. The patient was referred to hospice evaluation, discussed with the dairy nutrition consultant and the patient's mother still wants to continuew with full codeawaiting for a decision. The patient's, brother, and [id number] are involved in making a decision, aware of the poor prognosis, Javid Das MD [facility] # [id number]
--- NOTE | 2018-10-04 21:43 | CP.PCM.PN ---
Subjective - Date & Time of Evaluation Date of Evaluation: 10/04/18 Time of Evaluation: 12:00 - Subjective Subjective: Vented, opens eyes Objective - Vital Signs/Intake and Output Vital Signs (last 24 hours): Temp Pulse Resp BP Pulse Ox 99.5 F 134 H 26 H 109/60 97 10/04/18 18:00 10/04/18 18:00 10/04/18 18:00 10/04/18 18:00 10/04/18 18:00 Intake and Output: 10/04/18 10/05/18 18:59 06:59 Intake Total 1450 Output Total 550 Balance 900 - Medications Medications: Current Medications Allopurinol (Zyloprim) 100 mg NG DAILY [facility] Last Admin: 09/27/18 08:16 Dose: 100 mg Apixaban (Eliquis) 5 mg PO BID [facility]; Protocol Last Admin: 09/06/18 17:08 Dose: Not Given Meropenem 1 gm/ Sodium (Chloride) 100 mls @ 100 mls/hr IVPB Q8 [facility]; Protocol Last Admin: 10/04/18 16:51 Dose: 100 mls/hr Loratadine (Claritin) 10 mg PO DAILY [facility] Last Admin: 10/04/18 08:41 Dose: 10 mg Lorazepam (Ativan) 1 mg IVP Q4 PRN PRN Reason: Agitation Last Admin: 10/02/18 09:17 Dose: 1 mg Metoprolol Tartrate (Lopressor) 12.5 mg PO Q12 [facility] Last Admin: 09/06/18 21:59 Dose: Not Given Pantoprazole Sodium (Protonix Inj) 40 mg IVP DAILY [facility] Last Admin: 10/04/18 08:41 Dose: 40 mg - Labs Labs: 10/04/18 04:35 10/04/18 04:35 PT 14.9 Seconds (9.8-13.1) H 10/03/18 04:40 INR 1.3 10/03/18 04:40 APTT 26.7 Seconds (25.6-37.1) 10/03/18 04:40 - Head Exam Head Exam: ATRAUMATIC - Eye Exam Eye Exam: Normal appearance - ENT Exam ENT Exam: Mucous Membranes Dry - Respiratory Exam Respiratory Exam: NORMAL BREATHING PATTERN - Cardiovascular Exam Cardiovascular Exam: +S1, +S2 - GI/Abdominal Exam GI & Abdominal Exam: Normal Bowel Sounds - Extremities Exam Extremities Exam: Pedal Edema Assessment and Plan (1) Pancytopenia Assessment & Plan: secondary to chemotherapy blood loss - vaginal/hematuria; possible IR uterine embolization plt count improved transfusion support PRN Status: Acute (2) Pulmonary embolism Assessment & Plan: unable to anticoagulate due to blood loss Status: Acute (3) Malignant mixed Mullerian tumor (MMMT) Assessment & Plan: no longer an oncologic treatment candidate patients mother wants everything done and declined hospice. Status: Acute
[2018-10-05] MEDS: Meropenem 1 GM in Sodium Chloride 0.9% 100 ML IVPB SCH ×3 (01:03→16:09)
[2018-10-05 04:40] LABS: ABG ALLEN TEST YES; ARTERIAL BLOOD GAS HCO3 27.4 mmol/L (21-28); ARTERIAL BLOOD GAS HEMOGLOBIN 10.3 g/dL (11.7-17.4); ARTERIAL BLOOD GAS O2 CONTENT 13.2 ML/dL (15-23); ARTERIAL BLOOD GAS O2 SAT 94.6 % (95-98); ARTERIAL BLOOD GAS PCO2 41 mm/Hg (35-45); ARTERIAL BLOOD GAS PH 7.44 (7.35-7.45); ARTERIAL BLOOD GAS PO2 57 mm/Hg (80-100); ARTERIAL BLOOD GAS TCO2 29.1 mmol/L (22-28)
[2018-10-05 05:30] LABS: BASO # 0.1 K/uL (0.0-0.2); BASO % 1.5 % (0.0-2.0); LYMPH # 1.7 K/uL (1.0-4.3); LYMPH % 23.8 % (20.0-40.0); MEAN CORPUSCULAR HEMOGLOBIN 29.8 pg (27.0-31.0); MEAN CORPUSCULAR HGB CONC 32.5 g/dL (33.0-37.0); MEAN PLATELET VOLUME 10.6 fl (7.2-11.7); MONO # 0.7 K/uL (0.0-0.8); NEUT # 4.7 K/uL (1.8-7.0); NEUT % 64.7 % (50.0-75.0); NRBC % 0.3 % (0.0-0.0); RBC 3.35 Mil/uL (3.80-5.20); RED CELL DISTRIBUTION WIDTH 16.8 % (11.5-14.5); WHITE BLOOD COUNT 7.3 K/uL (4.8-10.8)
[2018-10-05 05:43] LABS: MEAN CELL VOLUME 91.8 fl (81.0-99.0)
[2018-10-05 05:56] LABS: BLOOD UREA NITROGEN 49 mg/dl (7-17); CALCIUM 7.1 mg/dL (8.4-10.2); GFR NON-AFRICAN AMERICAN > 60
--- NOTE | 2018-10-05 11:19 | RAD ---
Date of service: 10/05/2018 HISTORY: Tracheostomy. COMPARISON: Multiple serial examinations preceding the most recent study: October 04, 2018. FINDINGS: LUNGS: Stable infiltrates particularly left lung. PLEURA: Stable pleural effusions left larger than right. CARDIOVASCULAR: No atherosclerotic calcification present Venous access catheter in stable, satisfactory position. OSSEOUS STRUCTURES: No significant abnormalities. VISUALIZED UPPER ABDOMEN: Normal. OTHER FINDINGS: Stable, satisfactory position ventilatory (tracheostomy device), nasogastric apparatus. IMPRESSION: No significant interval change compared to the prior examination(s). Specifically stable infiltrates, pleural effusions and support apparatus. No new/acute findings detected.
[2018-10-05] MEDS: Furosemide 100 MG in Sodium Chloride 0.9% 100 ML IV SCH ×2 (12:33→22:08)
--- NOTE | 2018-10-05 15:42 | PN ---
DATE: 10/05/2018 CRITICAL CARE PROGRESS NOTE LOCATION: The patient in ICU bed 431. TIME SPENT: 35 minutes. SUBJECTIVE: The patient is seen and evaluated at the bedside. Past medical, surgical, family and social history reviewed. Case discussed in multidisciplinary ICU rounds this morning. A 58-year-old female with stage IV inflammatory metastatic carcinoma of right breast with malignant pleural effusion, ascites, peritoneal carcinomatosis, bony metastasis, status post chemo, admitted with coagulopathy, sepsis, hypoxic respiratory failure, intubated, on mechanical ventilation. Status post tracheostomy postop day 2, on AC/PRVC rate 10, tidal volume 350, FiO2 of 60%, PEEP of 5, observed respiratory rate 19, observed tidal volume of 320, minute ventilation 6.3 liters, oxygen saturation 96%, peak airway pressure 24, and end-tidal CO2 of 47. Low normal to low systolic blood pressure, on Levophed. OBJECTIVE: VITAL SIGNS: Temperature 99.7, heart rate 130; regular, blood pressure 96/56, mean arterial pressure of 69, and saturation 98%. Intake 2415, output 850, positive balance 1565. HEAD, EYES, EARS, NOSE AND THROAT: Pupils reactive. Conjunctivae pale. Facial edema, more on the right than left. Tracheostomy site with minimal soaking. CHEST: Bilateral breath sounds, diminished intensity. HEART: Rhythm regular. S1 and S2 normal. BREASTS: Right breast with a dressing in place. ABDOMEN: Distended. Positive fluid thrill, leaking fluid through the puncture site anterior abdominal wall. Orellana in place, draining dark urine. Flexi-Seal in place. Liquid stool positive, dark brown. EXTREMITIES: With edema, mild erythema. DP palpable, reduced in intensity. SKIN: With sacral breakdown. CURRENT MEDICATIONS: Include Zyloprim 100 mg NG daily, Eliquis 5 mg p.o. twice daily, Claritin 10 mg p.o. daily, lorazepam 1 mg IV every four hours, meropenem 1 g IV every eight hours, Lopressor 12.5 mg p.o. every 12 hours, Levophed 8 mg in 50 mL at 4.8 mL per hour/2.5 mcg per minute, and Protonix 40 IV daily. LABORATORY DATA: WBC 7.3, hemoglobin 10, hematocrit 30.7, and platelet count of 122. Neutrophils 64.7, lymphocytes 23.8. PT 14.9, INR 1.3, PTT 26.7. ABG; pH 7.44, pCO2 of 41, pO2 of 57, oxygen saturation 94.6% on AC 10, 350, 60% PEEP of 5. SMA-7: Sodium 150, potassium 4.1, chloride 180, CO2 of 29, blood urea nitrogen 49, creatinine 0.9, and random glucose of 116. Chest x-ray; tracheostomy in place, poor inspiratory effort, increased bilateral pleural effusion. IMPRESSION AND PLAN: 1. Neurological: No significant change in the mental status, remains lethargic, able to open her eyes on calling her name. Ongoing septic metabolic encephalopathy. CT head negative. 2. Respiratory: Acute hypoxic respiratory failure, increasing bilateral pulmonary vascular congestion with bilateral pleural effusion secondary to anasarca. We will add albumin with Lasix to reduce positive balance. Continue ventilatory support. Not able to wean off the ventilator and noted to be hypoxic. 3. Cardiac: Hypotension, on low dose Levophed. History of congestive heart failure and tachycardia secondary to ongoing inflammation, anemia, worsening ascites and pleural effusion. 4. Gastrointestinal: Ascites, recurrent, status post paracentesis. 5. Endocrinology: No history of hypothyroidism. Blood sugar is under control. 6. Infectious Disease: Malignant pleural effusion, malignant ascites with bone metastasis, fungal infection in the sputum, on meropenem, antifungal coverage. Stool Clostridium difficile negative. Appreciate Hospice Care evaluation and discussion with family, aware that the patient's mom want to continue with full support. Keep head of bed 30 degrees up position face to reduce facial edema. Continue Lasix and albumin. Orellana in place to minimize soiling and sacral breakdown. Continue Flexi-Seal. We will continue to engage in discussion with family to convince the futility of care. Prognosis remains guarded. Javid Das MD
[2018-10-05] MEDS: Albumin Human 25% (12.5 gm/50 ml) IV SCH ×2 (16:08→21:35)
--- NOTE | 2018-10-05 16:21 | CP.PCM.PN ---
Subjective - Date & Time of Evaluation Date of Evaluation: 10/05/18 Time of Evaluation: 12:00 - Subjective Subjective: Vented, vaginal bleeding decreased Objective - Vital Signs/Intake and Output Vital Signs (last 24 hours): Temp Pulse Resp BP Pulse Ox 100.0 F H 138 H 20 102/59 L 95 10/05/18 16:00 10/05/18 16:00 10/05/18 16:00 10/05/18 16:00 10/05/18 16:00 Intake and Output: 10/05/18 10/05/18 06:59 18:59 Intake Total 965 1008 Output Total 300 Balance 665 1008 - Medications Medications: Current Medications Albumin Human (Albumin Human 25% (12.5 Gm/50 Ml)) 12.5 gm IV Q6 [facility] Last Admin: 10/05/18 16:08 Dose: 12.5 gm Allopurinol (Zyloprim) 100 mg NG DAILY [facility] Last Admin: 09/27/18 08:16 Dose: 100 mg Apixaban (Eliquis) 5 mg PO BID [facility]; Protocol Last Admin: 09/06/18 17:08 Dose: Not Given Meropenem 1 gm/ Sodium (Chloride) 100 mls @ 100 mls/hr IVPB Q8 [facility]; Protocol Last Admin: 10/05/18 16:09 Dose: 100 mls/hr Norepinephrine Bitartrate 8 mg (/ Dextrose) 258 mls @ 4.84 mls/hr IV .Q24H ONE; Protocol Stop: 10/06/18 03:00 Last Admin: 10/05/18 06:32 Dose: 2.5 mcg/min, 4.84 mls/hr Furosemide 100 mg/ Sodium (Chloride) 100 mls @ 10 mls/hr IV .Q10H [facility]; Protocol Last Admin: 10/05/18 12:33 Dose: 10 mls/hr Loratadine (Claritin) 10 mg PO DAILY [facility] Last Admin: 10/05/18 08:29 Dose: 10 mg Lorazepam (Ativan) 1 mg IVP Q4 PRN PRN Reason: Agitation Last Admin: 10/02/18 09:17 Dose: 1 mg Metoprolol Tartrate (Lopressor) 12.5 mg PO Q12 [facility] Last Admin: 09/06/18 21:59 Dose: Not Given Pantoprazole Sodium (Protonix Inj) 40 mg IVP DAILY [facility] Last Admin: 10/05/18 08:29 Dose: 40 mg - Labs Labs: 10/05/18 05:00 10/05/18 05:00 PT 14.9 Seconds (9.8-13.1) H 10/03/18 04:40 INR 1.3 10/03/18 04:40 APTT 26.7 Seconds (25.6-37.1) 10/03/18 04:40 - Head Exam Head Exam: ATRAUMATIC - Eye Exam Eye Exam: Normal appearance - ENT Exam ENT Exam: Mucous Membranes Dry - Respiratory Exam Respiratory Exam: Decreased Breath Sounds - Cardiovascular Exam Cardiovascular Exam: +S1, +S2 - GI/Abdominal Exam GI & Abdominal Exam: Normal Bowel Sounds - Extremities Exam Extremities Exam: Pedal Edema Assessment and Plan (1) Pancytopenia Assessment & Plan: WBC normalized H/H fairly stable; hematuria/vaginal bleeding improved plt count greatly improved Status: Acute (2) Pulmonary embolism Assessment & Plan: not an anticoagulation candidate due to bleeding Status: Acute (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
[2018-10-06] MEDS: Meropenem 1 GM in Sodium Chloride 0.9% 100 ML IVPB SCH ×3 (01:30→16:00)
[2018-10-06] MEDS: Albumin Human 25% (12.5 gm/50 ml) IV SCH ×3 (03:51→15:57)
[2018-10-06 05:10] LABS: ABG ALLEN TEST YES; ARTERIAL BLOOD GAS HCO3 26.9 mmol/L (21-28); ARTERIAL BLOOD GAS HEMOGLOBIN 8.5 g/dL (11.7-17.4); ARTERIAL BLOOD GAS O2 CAPACITY 11.6 mL/dL (16-24); ARTERIAL BLOOD GAS O2 CONTENT 11.6 ML/dL (15-23); ARTERIAL BLOOD GAS O2 SAT 99.6 % (95-98); ARTERIAL BLOOD GAS PCO2 55 mm/Hg (35-45); ARTERIAL BLOOD GAS PH 7.33 (7.35-7.45); ARTERIAL BLOOD GAS PO2 77 mm/Hg (80-100); ARTERIAL BLOOD GAS TCO2 30.7 mmol/L (22-28)
[2018-10-06 05:58] LABS: BASO # 0.1 K/uL (0.0-0.2); BASO % 0.8 % (0.0-2.0); EOS % 0.1 % (0.0-4.0); HEMOGLOBIN 6.8 g/dL (12.0-16.0); LYMPH # 1.1 K/uL (1.0-4.3); LYMPH % 18.2 % (20.0-40.0); MEAN CORPUSCULAR HEMOGLOBIN 29.6 pg (27.0-31.0); MEAN CORPUSCULAR HGB CONC 32.2 g/dL (33.0-37.0); MEAN PLATELET VOLUME 10.4 fl (7.2-11.7); MONO # 0.6 K/uL (0.0-0.8); MONO % 10.4 % (0.0-10.0); NEUT # 4.2 K/uL (1.8-7.0); NEUT % 70.5 % (50.0-75.0); NRBC % 0.2 % (0.0-0.0); RBC 2.3 Mil/uL (3.80-5.20); RED CELL DISTRIBUTION WIDTH 16.3 % (11.5-14.5)
[2018-10-06 06:24] LABS: BLOOD UREA NITROGEN 55 mg/dl (7-17); GFR NON-AFRICAN AMERICAN > 60
--- NOTE | 2018-10-06 08:48 | RAD ---
Date of service: 10/06/2018 HISTORY: trach COMPARISON: Portable chest 10/05/2018. FINDINGS: Tracheostomy tube and left MediPort unchanged in position. Stable orogastric tube placement. LUNGS: Large left pleural effusion is unchanged. Minimal right pleural effusion questioned. Patchy density at the inferior right lung zone has increased up to the right hilum. Underlying consolidation or atelectasis is not excluded at the mid to inferior left lung zone. No pneumothorax bilaterally. PLEURA: As above. CARDIOVASCULAR: No aortic atherosclerotic calcification present. Cardiac silhouette is obscured by left pleural effusion. Pulmonary vessels are obscured the right by airspace disease at the left by pleural effusion. No increase in reticular markings are demonstrated to suggest pulmonary vascular congestion but clinical correlation is advised. OSSEOUS STRUCTURES: No significant abnormalities. VISUALIZED UPPER ABDOMEN: Normal. OTHER FINDINGS: None. IMPRESSION: No interval change in large left pleural effusion with underlying airspace disease not excluded at the mid inferior lung zones. Increasing patchy density at the mid to inferior right lung suggest worsening infiltrate. Limited right pleural effusion again questioned.
--- NOTE | 2018-10-06 11:05 | CP.PCM.PN ---
Subjective - Date & Time of Evaluation Date of Evaluation: 10/06/18 Time of Evaluation: 11:05 - Subjective Subjective: ID note- Patient seen and examined today in ICU. remains on the vent and lethargic. her family is at her bedside. Objective - Vital Signs/Intake and Output Vital Signs (last 24 hours): Temp Pulse Resp BP Pulse Ox 99.5 F 122 H 15 99/53 L 95 10/06/18 08:00 10/06/18 08:00 10/06/18 08:00 10/06/18 08:00 10/06/18 08:00 Intake and Output: 10/06/18 10/06/18 06:59 18:59 Intake Total 1045 Output Total 400 Balance 645 - Medications Medications: Current Medications Albumin Human (Albumin Human 25% (12.5 Gm/50 Ml)) 12.5 gm IV Q6 [facility] Last Admin: 10/06/18 10:03 Dose: 12.5 gm Allopurinol (Zyloprim) 100 mg NG DAILY [facility] Last Admin: 09/27/18 08:16 Dose: 100 mg Apixaban (Eliquis) 5 mg PO BID [facility]; Protocol Last Admin: 09/06/18 17:08 Dose: Not Given Meropenem 1 gm/ Sodium (Chloride) 100 mls @ 100 mls/hr IVPB Q8 [facility]; Protocol Last Admin: 10/06/18 08:46 Dose: 100 mls/hr Furosemide 100 mg/ Sodium (Chloride) 100 mls @ 10 mls/hr IV .Q10H [facility]; Protocol Last Admin: 10/05/18 22:08 Dose: 10 mls/hr Loratadine (Claritin) 10 mg PO DAILY [facility] Last Admin: 10/06/18 08:48 Dose: 10 mg Lorazepam (Ativan) 1 mg IVP Q4 PRN PRN Reason: Agitation Last Admin: 10/02/18 09:17 Dose: 1 mg Metoprolol Tartrate (Lopressor) 12.5 mg PO Q12 [facility] Last Admin: 09/06/18 21:59 Dose: Not Given Pantoprazole Sodium (Protonix Inj) 40 mg IVP DAILY [facility] Last Admin: 10/06/18 08:47 Dose: 40 mg - Labs Labs: - Additional Findings Additional findings: - Constitutional Appears: Chronically Ill Additional comments: intubated and lethargic - Eye Exam Eye Exam: PERRL - ENT Exam Additional comments: s/p trache - Respiratory Exam Additional comments: On the vent - Cardiovascular Exam Cardiovascular Exam: Tachycardia, +S1, +S2 - GI/Abdominal Exam Additional comments: distended hypoactive BS umbilical region with mass like lesion with denuded skin , no pus, bloody discharge scant only - Extremities Exam Additional comments: b/l 1+ edema in LE and left hand edema - Neurological Exam Additional comments: much more lethargic today and does not open her eyes today when name is called. - Skin Additional comments: right breast entirely covered with fungating looking round erythematous lesions . maculopapular drug rash almost resolved. Laboratory Results - last 72 hr 10/04/18 10/04/18 10/04/18 04:00 04:35 04:35 WBC 7.2 RBC 3.44 L Hgb 10.3 L D Hct 30.7 L MCV 89.2 D MCH 29.9 MCHC 33.6 RDW 16.2 H Plt Count 113 L MPV Neut % (Auto) Lymph % (Auto) Seward % (Auto) Eos % (Auto) Baso % (Auto) Neut # (Auto) Lymph # (Auto) Seward # (Auto) Eos # (Auto) Baso # (Auto) pCO2 35 pO2 81 HCO3 28.1 H ABG pH 7.50 H ABG Total CO2 28.4 H ABG O2 Saturation 99.1 H ABG O2 Content 14.1 L ABG Base Excess 4.1 H ABG Hemoglobin 10.4 L ABG Carboxyhemoglobin 1.9 H POC ABG HHb (Measured) 0.9 ABG Methemoglobin 1.2 ABG O2 Capacity 14.2 L Frederic Test Yes A-a O2 Difference 303.0 Hgb O2 Saturation 96.0 Vent Mode A/c Mechanical Rate 10 FiO2 60.0 Tidal Volume 350 PEEP 5 Sodium 147 Potassium 3.8 Chloride 117 H Carbon Dioxide 29 Anion Gap 5 L BUN 46 H Creatinine 0.7 Est GFR ( Amer) > 60 Est GFR (Non-Af Amer) > 60 Random Glucose 108 H Calcium 7.3 L Total Bilirubin 0.7 AST 42 H ALT 50 Alkaline Phosphatase 114 Total Protein 4.6 L Albumin 2.0 L Globulin 2.6 Albumin/Globulin Ratio 0.8 L Blood Type Antibody Screen Crossmatch BBK History Checked 0310/05/18 10/05/18 04:30 05:00 05:00 WBC 7.3 RBC 3.35 L Hgb 10.0 L Hct 30.7 L MCV 91.8 D MCH 29.8 MCHC 32.5 L RDW 16.8 H Plt Count 122 L MPV 10.6 Neut % (Auto) 64.7 Lymph % (Auto) 23.8 Seward % (Auto) 10.0 Eos % (Auto) 0.0 Baso % (Auto) 1.5 Neut # (Auto) 4.7 Lymph # (Auto) 1.7 Seward # (Auto) 0.7 Eos # (Auto) 0.0 Baso # (Auto) 0.1 pCO2 41 pO2 57 L HCO3 27.4 ABG pH 7.44 ABG Total CO2 29.1 H ABG O2 Saturation 94.6 L ABG O2 Content 13.2 L ABG Base Excess 3.3 H ABG Hemoglobin 10.3 L ABG Carboxyhemoglobin 1.9 H POC ABG HHb (Measured) 5.2 H ABG Methemoglobin 1.7 ABG O2 Capacity 14.0 L Frederic Test Yes A-a O2 Difference 320.0 Hgb O2 Saturation 91.2 L Vent Mode A/c Mechanical Rate 10 FiO2 60.0 Tidal Volume 500 PEEP 5 Sodium 150 H Potassium 4.1 Chloride 118 H Carbon Dioxide 29 Anion Gap 7 L BUN 49 H Creatinine 0.7 Est GFR ( Amer) > 60 Est GFR (Non-Af Amer) > 60 Random Glucose 116 H Calcium 7.1 L Total Bilirubin AST ALT Alkaline Phosphatase Total Protein Albumin Globulin Albumin/Globulin Ratio Blood Type Antibody Screen Crossmatch BBK History Checked 10/06/18 10/06/18 10/06/18 04:20 04:20 05:00 WBC 6.0 RBC 2.30 L Hgb 6.8 L D Hct 21.2 L MCV 92.0 MCH 29.6 MCHC 32.2 L RDW 16.3 H Plt Count 89 L D MPV 10.4 Neut % (Auto) 70.5 Lymph % (Auto) 18.2 L Seward % (Auto) 10.4 H Eos % (Auto) 0.1 Baso % (Auto) 0.8 Neut # (Auto) 4.2 Lymph # (Auto) 1.1 Seward # (Auto) 0.6 Eos # (Auto) 0.0 Baso # (Auto) 0.1 pCO2 55 H pO2 77 L HCO3 26.9 ABG pH 7.33 L ABG Total CO2 30.7 H ABG O2 Saturation 99.6 H ABG O2 Content 11.6 L ABG Base Excess 2.5 ABG Hemoglobin 8.5 L ABG Carboxyhemoglobin 2.4 H POC ABG HHb (Measured) 0.4 ABG Methemoglobin 1.1 ABG O2 Capacity 11.6 L Frederic Test Yes A-a O2 Difference 282.0 Hgb O2 Saturation 96.1 Vent Mode A/c Mechanical Rate 10 FiO2 60.0 Tidal Volume 350 PEEP 5 Sodium 148 Potassium 4.2 Chloride 121 H Carbon Dioxide 30 Anion Gap 1 L BUN 55 H Creatinine 0.8 Est GFR ( Amer) > 60 Est GFR (Non-Af Amer) > 60 Random Glucose 89 Calcium 6.0 L* Total Bilirubin AST ALT Alkaline Phosphatase Total Protein Albumin Globulin Albumin/Globulin Ratio Blood Type Antibody Screen Crossmatch BBK History Checked 10/06/18 08:20 WBC RBC Hgb Hct MCV MCH MCHC RDW Plt Count MPV Neut % (Auto) Lymph % (Auto) Seward % (Auto) Eos % (Auto) Baso % (Auto) Neut # (Auto) Lymph # (Auto) Seward # (Auto) Eos # (Auto) Baso # (Auto) pCO2 pO2 HCO3 ABG pH ABG Total CO2 ABG O2 Saturation ABG O2 Content ABG Base Excess ABG Hemoglobin ABG Carboxyhemoglobin POC ABG HHb (Measured) ABG Methemoglobin ABG O2 Capacity Frederic Test A-a O2 Difference Hgb O2 Saturation Vent Mode Mechanical Rate FiO2 Tidal Volume PEEP Sodium Potassium Chloride Carbon Dioxide Anion Gap BUN Creatinine Est GFR ( Amer) Est GFR (Non-Af Amer) Random Glucose Calcium Total Bilirubin AST ALT Alkaline Phosphatase Total Protein Albumin Globulin Albumin/Globulin Ratio Blood Type A POSITIVE Antibody Screen Negative Crossmatch See Detail BBK History Checked Patient has bt Microbiology 10/05/18 07:10 Urine,Orellana Urine Culture - Final Yeast Species 10/05/18 06:30 Blood Blood Culture - Preliminary NO GROWTH AFTER 24 HOURS 10/05/18 06:15 Blood Blood Culture - Preliminary NO GROWTH AFTER 24 HOURS 09/25/18 12:10 Blood-Thru Central Line Blood Culture - Final NO GROWTH AFTER 5 DAYS 09/25/18 12:10 Blood-Thru Central Line Gram Stain - Final TEST NOT PERFORMED 09/20/18 14:00 Blood-Thru Central Line Blood Culture - Final NO GROWTH AFTER 5 DAYS 09/20/18 17:53 Trachasp Gram Stain - Final 09/20/18 17:53 Trachasp Sputum Culture - Final Yeast Species 09/20/18 17:53 Urine,Orellana Urine Culture - Final No Growth (<1,000 CFU/ML) 09/15/18 15:35 Blood-Thru Central Line Blood Culture - Final NO GROWTH AFTER 5 DAYS 09/15/18 15:35 Blood-Thru Central Line Gram Stain - Final TEST NOT PERFORMED 09/15/18 15:25 Blood-Thru Central Line Blood Culture - Final NO GROWTH AFTER 5 DAYS 09/15/18 15:25 Blood-Thru Central Line Gram Stain - Final TEST NOT PERFORMED 09/08/18 11:49 Blood-Venous Blood Culture - Final NO GROWTH AFTER 5 DAYS 09/08/18 11:49 Blood-Venous Gram Stain - Final TEST NOT PERFORMED 09/08/18 11:49 Blood-Venous Blood Culture - Final NO GROWTH AFTER 5 DAYS 09/08/18 11:49 Blood-Venous Gram Stain - Final TEST NOT PERFORMED 09/07/18 Unknown Blood-Thru Central Line Blood Culture - Final NO GROWTH AFTER 5 DAYS 09/07/18 Unknown Blood-Thru Central Line Gram Stain - Final TEST NOT PERFORMED 09/07/18 Unknown Blood-Thru Central Line Blood Culture - Final NO GROWTH AFTER 5 DAYS 09/07/18 Unknown Blood-Thru Central Line Gram Stain - Final TEST NOT PERFORMED 09/07/18 09:07 Trachasp Gram Stain - Final 09/07/18 09:07 Trachasp Sputum Culture - Final Yeast Species 09/04/18 11:25 Naris MRSA Culture (Admit) - Final MRSA NOT DETECTED Accession No. : [id number] Patient Name / ID : RYLEE ONEIL / [id number] Exam Date : 10/06/2018 04:34:51 ( Approved ) Study Comment : Sex / Age : F / 58Y Creator : Syed Avalos MD Dictator : Syed Avalos MD Ornamental Rail Installer : Experimental Assembler : Syed Avalos MD Approver2 : Report Date : 10/06/2018 08:42:48 My Comment : Date of service: 10/06/2018 HISTORY: trach COMPARISON: Portable chest 10/05/2018. FINDINGS: Tracheostomy tube and left MediPort unchanged in position. Stable orogastric tube placement. LUNGS: Large left pleural effusion is unchanged. Minimal right pleural effusion questioned. Patchy density at the inferior right lung zone has increased up to the right hilum. Underlying consolidation or atelectasis is not excluded at the mid to inferior left lung zone. No pneumothorax bilaterally. PLEURA: As above. CARDIOVASCULAR: No aortic atherosclerotic calcification present. Cardiac silhouette is obscured by left pleural effusion. Pulmonary vessels are obscured the right by airspace disease at the left by pleural effusion. No increase in reticular markings are demonstrated to suggest pulmonary vascular congestion but clinical correlation is advised. OSSEOUS STRUCTURES: No significant abnormalities. VISUALIZED UPPER ABDOMEN: Normal. OTHER FINDINGS: None. IMPRESSION: No interval change in large left pleural effusion with underlying airspace disease not excluded at the mid inferior lung zones. Increasing patchy density at the mid to inferior right lung suggest worsening infiltrate. 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 drug reaction rash much improved. s/p trache lethargic low grade fevers again today. tachycardic today CXR report noted continues to have anemia and thrombocytopenia blood cx- neg x 10 trach asp cx- yeast stool c.diff- negative repeat UA- negative repeat urine cx- neg PLan- completed 14 days of empiric vanco. will resume vanco agin today since she is on the vent still and lung function not improving and she is immunosuppressed to cover for HAP empirically. keep vanco trough <15. advise to continue IV meropnem for broad spectrum gram negative coverage.day #26 continue with IV diflucan day #26 pleural effusion secondary to her fluid overload . above abx and antifungal being continues sine pt. is immunecompromised and is on vent.( they are empiric). critical care time spent 30 minutes.
[2018-10-06] MEDS: Furosemide 100 MG in Sodium Chloride 0.9% 100 ML IV SCH (13:33)
[2018-10-06] MEDS: Fluconazole IV 100mg/50 ml NS 50 ML IVPB SCH (16:57)
--- NOTE | 2018-10-06 17:06 | CP.CCUPN ---
CCU Subjective - Physician Review Events Since Last Encounter (Free Text): 10/06/18 16:18 comatose, grimaces to any movement. CCU Objective - Vital Signs / Intake & Output Vital Signs (Last 4 hours): Vital Signs Temp Pulse Resp BP Pulse Ox 10/06/18 15:56 99.7 F H 114 H 16 100/59 L 10/06/18 14:00 99.5 F 116 H 17 97/49 L 94 L 10/06/18 13:33 97/49 L 10/06/18 13:10 99.5 F 115 H 16 97/49 L 10/06/18 12:47 99.3 F 114 H 17 104/51 L Intake and Output (Last 8hrs): Intake & Output 10/06/18 10/06/18 10/06/18 06:59 14:59 22:59 Intake Total 910 1095 375 Output Total 400 700 Balance 510 395 375 Weight 186 lb 4.8 oz Intake: IV 70 415 Intake, Piggyback 300 Tube Feeding 140 280 Blood Product 0 325 Red Blood Cells Cpd As1 0 325 Lr Unit [id number] Free Water Flush 400 400 Other 50 Red Blood Cells Cpd As1 50 Lr Unit [id number] Output: Urine 400 700 Urethral (Hardwick) 400 700 - Physical Exam Head: Positive for: Atraumatic, Normocephalic Pupils: Positive for: PERRL Extroacular Muscles: Positive for: EOMI Conjunctiva: Negative for: Injected, Icteric Ears: Positive for: Normal Mouth: Positive for: Moist Mucous Membranes Nose (Internal): Positive for: Normal Inspection Neck: Positive for: Normal Range of Motion, Trachea Midline. Negative for: Meningeal Signs, MIDLINE TENDERNESS, Paraspinal Tenderness, JVD, Lymphadenopathy, Bruit, Other Respiratory/Chest: Positive for: Good Air Exchange, Rales, Retracting, Rhonchi. Negative for: Respiratory Distress, Accessory Muscle Use, Wheezes, Tachypneic Cardiovascular: Positive for: Regular Rate and Rhythm, Normal S1, S2, Peripheal Pulses Present. Negative for: Murmurs, Irregular Rhythm, Tachycardic, Bradycardic Abdomen: Positive for: Normal Bowel Sounds. Negative for: Tenderness Breast/Axillary: Positive for: Other (fungating necrotic mass to Right Breast) Upper Extremity: Positive for: Edema, NORMAL PULSES. Negative for: Normal Inspection, Cyanosis Lower Extremity: Positive for: Edema, NORMAL PULSES. Negative for: Normal Inspection Neurological: Positive for: Other (on ventilator, opens eyes to verbal stimuli) Psychiatric: Positive for: Other (Sedated and orally intubated). Negative for: Alert - Medications Active Medications: Active Medications Generic Name Dose Route Start Last Admin Trade Name Freq PRN Reason Stop Dose Admin Albumin Human 12.5 gm 10/05/18 16:00 10/06/18 15:57 Albumin Human 25% (12.5 Gm/50 Ml) IV 12.5 gm Q6 [facility] Administration Allopurinol 100 mg 09/14/18 09:00 09/27/18 08:16 Zyloprim NG 100 mg DAILY [facility] Administration Apixaban 5 mg 09/04/18 09:00 09/06/18 17:08 Eliquis PO Not Given BID [facility] Protocol Meropenem 1 gm/ Sodium 100 mls @ 100 mls/hr 09/18/18 12:45 10/06/18 16:00 Chloride IVPB 100 mls/hr Q8 [facility] Administration Protocol Furosemide 100 mg/ Sodium 100 mls @ 10 mls/hr 10/05/18 10:15 10/06/18 13:33 Chloride IV 10 mls/hr .Q10H [facility] Administration Protocol 10 MG/HR Fluconazole 50 mls @ 50 mls/hr 10/06/18 15:45 Diflucan Iv 100 Mg/50 Ml Ns IVPB DAILY [facility] Protocol Vancomycin HCl 750 mg/ Sodium 250 mls @ 166.667 mls/hr 10/06/18 21:00 Chloride IVPB Q12 [facility] Protocol Loratadine 10 mg 09/29/18 12:15 10/06/18 08:48 Claritin PO 10 mg DAILY [facility] Administration Lorazepam 1 mg 10/02/18 08:48 10/02/18 09:17 Ativan IVP 1 mg Q4 PRN Administration Agitation Metoprolol Tartrate 12.5 mg 09/03/18 23:45 09/06/18 21:59 Lopressor PO Not Given Q12 [facility] Pantoprazole Sodium 40 mg 09/19/18 22:00 10/06/18 08:47 Protonix Inj IVP 40 mg DAILY [facility] Administration - Patient Studies Lab Studies: Microbiology Studies 10/05/18 07:10 Urine Culture - Final Urine,Hardwick Yeast Species 10/05/18 06:30 Blood Culture - Preliminary Blood NO GROWTH AFTER 24 HOURS 10/05/18 06:15 Blood Culture - Preliminary Blood NO GROWTH AFTER 24 HOURS Lab Studies 10/06/18 10/06/18 10/06/18 Range/Units 08:20 05:00 04:20 WBC (4.8-10.8) K/uL RBC (3.80-5.20) Mil/uL Hgb (12.0-16.0) g/dL Hct (34.0-47.0) % MCV (81.0-99.0) fl MCH (27.0-31.0) pg MCHC (33.0-37.0) g/dL RDW (11.5-14.5) % Plt Count (130-400) K/uL MPV (7.2-11.7) fl Neut % (Auto) (50.0-75.0) % Lymph % (Auto) (20.0-40.0) % Carter % (Auto) (0.0-10.0) % Eos % (Auto) (0.0-4.0) % Baso % (Auto) (0.0-2.0) % Neut # (Auto) (1.8-7.0) K/uL Lymph # (Auto) (1.0-4.3) K/uL Carter # (Auto) (0.0-0.8) K/uL Eos # (Auto) (0.0-0.7) K/uL Baso # (Auto) (0.0-0.2) K/uL pCO2 55 H (35-45) mm/Hg pO2 77 L (80-100) mm/Hg HCO3 26.9 (21-28) mmol/L ABG pH 7.33 L (7.35-7.45) ABG Total CO2 30.7 H (22-28) mmol/L ABG O2 Saturation 99.6 H (95-98) % ABG O2 Content 11.6 L (15-23) ML/dL ABG Base Excess 2.5 (-2.0-3.0) mmol/L ABG Hemoglobin 8.5 L (11.7-17.4) g/dL ABG Carboxyhemoglobin 2.4 H (0.5-1.5) % POC ABG HHb (Measured) 0.4 (0.0-5.0) % ABG Methemoglobin 1.1 (0.0-3.0) % ABG O2 Capacity 11.6 L (16-24) mL/dL Frederic Test Yes A-a O2 Difference 282.0 mm/Hg Hgb O2 Saturation 96.1 (95.0-98.0) % Vent Mode A/c Mechanical Rate 10 FiO2 60.0 % Tidal Volume 350 PEEP 5 Sodium 148 (132-148) mmol/l Potassium 4.2 (3.6-5.0) MMOL/L Chloride 121 H (98-107) mmol/L Carbon Dioxide 30 (22-30) mmol/L Anion Gap 1 L (10-20) BUN 55 H (7-17) mg/dl Creatinine 0.8 (0.7-1.2) mg/dl Est GFR ( Amer) > 60 Est GFR (Non-Af Amer) > 60 Random Glucose 89 (65-105) mg/dL Calcium 6.0 L* (8.4-10.2) mg/dL Blood Type A POSITIVE Antibody Screen Negative Crossmatch See Detail BBK History Checked Patient has bt 10/06/18 Range/Units 04:20 WBC 6.0 (4.8-10.8) K/uL RBC 2.30 L (3.80-5.20) Mil/uL Hgb 6.8 L D (12.0-16.0) g/dL Hct 21.2 L (34.0-47.0) % MCV 92.0 (81.0-99.0) fl MCH 29.6 (27.0-31.0) pg MCHC 32.2 L (33.0-37.0) g/dL RDW 16.3 H (11.5-14.5) % Plt Count 89 L D (130-400) K/uL MPV 10.4 (7.2-11.7) fl Neut % (Auto) 70.5 (50.0-75.0) % Lymph % (Auto) 18.2 L (20.0-40.0) % Carter % (Auto) 10.4 H (0.0-10.0) % Eos % (Auto) 0.1 (0.0-4.0) % Baso % (Auto) 0.8 (0.0-2.0) % Neut # (Auto) 4.2 (1.8-7.0) K/uL Lymph # (Auto) 1.1 (1.0-4.3) K/uL Carter # (Auto) 0.6 (0.0-0.8) K/uL Eos # (Auto) 0.0 (0.0-0.7) K/uL Baso # (Auto) 0.1 (0.0-0.2) K/uL pCO2 (35-45) mm/Hg pO2 (80-100) mm/Hg HCO3 (21-28) mmol/L ABG pH (7.35-7.45) ABG Total CO2 (22-28) mmol/L ABG O2 Saturation (95-98) % ABG O2 Content (15-23) ML/dL ABG Base Excess (-2.0-3.0) mmol/L ABG Hemoglobin (11.7-17.4) g/dL ABG Carboxyhemoglobin (0.5-1.5) % POC ABG HHb (Measured) (0.0-5.0) % ABG Methemoglobin (0.0-3.0) % ABG O2 Capacity (16-24) mL/dL Frederic Test A-a O2 Difference mm/Hg Hgb O2 Saturation (95.0-98.0) % Vent Mode Mechanical Rate FiO2 % Tidal Volume PEEP Sodium (132-148) mmol/l Potassium (3.6-5.0) MMOL/L Chloride (98-107) mmol/L Carbon Dioxide (22-30) mmol/L Anion Gap (10-20) BUN (7-17) mg/dl Creatinine (0.7-1.2) mg/dl Est GFR ( Amer) Est GFR (Non-Af Amer) Random Glucose (65-105) mg/dL Calcium (8.4-10.2) mg/dL Blood Type Antibody Screen Crossmatch BBK History Checked Laboratory Results - last 24 hr 10/06/18 10/06/18 10/06/18 04:20 04:20 05:00 WBC 6.0 RBC 2.30 L Hgb 6.8 L D Hct 21.2 L MCV 92.0 MCH 29.6 MCHC 32.2 L RDW 16.3 H Plt Count 89 L D MPV 10.4 Neut % (Auto) 70.5 Lymph % (Auto) 18.2 L Carter % (Auto) 10.4 H Eos % (Auto) 0.1 Baso % (Auto) 0.8 Neut # (Auto) 4.2 Lymph # (Auto) 1.1 Carter # (Auto) 0.6 Eos # (Auto) 0.0 Baso # (Auto) 0.1 pCO2 55 H pO2 77 L HCO3 26.9 ABG pH 7.33 L ABG Total CO2 30.7 H ABG O2 Saturation 99.6 H ABG O2 Content 11.6 L ABG Base Excess 2.5 ABG Hemoglobin 8.5 L ABG Carboxyhemoglobin 2.4 H POC ABG HHb (Measured) 0.4 ABG Methemoglobin 1.1 ABG O2 Capacity 11.6 L Frederic Test Yes A-a O2 Difference 282.0 Hgb O2 Saturation 96.1 Vent Mode A/c Mechanical Rate 10 FiO2 60.0 Tidal Volume 350 PEEP 5 Sodium 148 Potassium 4.2 Chloride 121 H Carbon Dioxide 30 Anion Gap 1 L BUN 55 H Creatinine 0.8 Est GFR ( Amer) > 60 Est GFR (Non-Af Amer) > 60 Random Glucose 89 Calcium 6.0 L* Blood Type Antibody Screen Crossmatch BBK History Checked 10/06/18 08:20 WBC RBC Hgb Hct MCV MCH MCHC RDW Plt Count MPV Neut % (Auto) Lymph % (Auto) Carter % (Auto) Eos % (Auto) Baso % (Auto) Neut # (Auto) Lymph # (Auto) Carter # (Auto) Eos # (Auto) Baso # (Auto) pCO2 pO2 HCO3 ABG pH ABG Total CO2 ABG O2 Saturation ABG O2 Content ABG Base Excess ABG Hemoglobin ABG Carboxyhemoglobin POC ABG HHb (Measured) ABG Methemoglobin ABG O2 Capacity Frederic Test A-a O2 Difference Hgb O2 Saturation Vent Mode Mechanical Rate FiO2 Tidal Volume PEEP Sodium Potassium Chloride Carbon Dioxide Anion Gap BUN Creatinine Est GFR ( Amer) Est GFR (Non-Af Amer) Random Glucose Calcium Blood Type A POSITIVE Antibody Screen Negative Crossmatch See Detail BBK History Checked Patient has bt Radiology Impressions: Radiology Impressions Chest X-Ray 10/06/18 06:00 IMPRESSION: No interval change in large left pleural effusion with underlying airspace disease not excluded at the mid inferior lung zones. Increasing patchy density at the mid to inferior right lung suggest worsening infiltrate. Limited right pleural effusion again questioned. Review of Systems - Review of Systems Systems not reviewed;Unavailable: Altered Mental Status Critical Care Progress Note - Nutrition Nutrition: Nutrition Category Date Time Status NPO Diet [DIET] Diets 10/03/18 Breakfast Active Assessment/Plan (1) Multiple organ dysfunction syndrome Assessment and plan: 58yo F. PMHx anemia, anxiety, CHF, DVT, PE, stage 4 metastatic breast CA on chemotx. p/w acute respiratory failure. 10/03/18 trach placed. Neuro: no sedation, but still comatose. Pulm: acute respiratory failure, now trach'd on vent. CV: hemodynamicaly stable, now off pressors. Hem: thrombocytopenia. bleeding from uterine cancer, requiring recurrent multiple transfusions (29 units so far). Renal: worsening oliguria, even with lasix gtt. anasarca. hypernatremia improving. Discussed with PMD - Dr. Peterson, and agree she is not a candidate for dialysis. Endo: no acute issues GI: NPO, Pulmocare, free water 200ml q6h for hypernatremia. ID: mulitlobar pneumonia continue Meropenem, Fluconazole and Vancomycin. DVT proph - SCD's, a/c held with current bleeding GI proph - protonix hardwick for strict I/O's during acute illness Code status - full code Patient has an extremely poor prognosis and a high mortality risk. I had a long conversation with patient's mother and son. Explained that she is in multi organ failure with a bleeding metastatic cancer and will not survive this admission. They do not want to deal with this reality and are making no decisions for withdrawal of care of making her comfortable. Critical Care time spent 35 minutes Multi-disciplinary rounds were performed with house staff, nursing, speech thera py, respiratory therapy, pharmacy and nutrition with integrated input from the primary team/attending and other consulting services. The documented time is cumulative and includes review of patient data/exams/labs/chart review and examination of the patient on rounds and throughout the day; time is exclusive of any procedures or teaching time. Current Visit: Yes Status: Acute
[2018-10-07] MEDS: Meropenem 1 GM in Sodium Chloride 0.9% 100 ML IVPB SCH ×3 (02:22→16:30)
[2018-10-07 04:31] LABS: ABG ALLEN TEST YES; ARTERIAL BLOOD GAS HCO3 26.2 mmol/L (21-28); ARTERIAL BLOOD GAS HEMOGLOBIN 10.8 g/dL (11.7-17.4); ARTERIAL BLOOD GAS O2 CAPACITY 14.7 mL/dL (16-24); ARTERIAL BLOOD GAS O2 CONTENT 14.2 ML/dL (15-23); ARTERIAL BLOOD GAS O2 SAT 96.6 % (95-98); ARTERIAL BLOOD GAS PCO2 49 mm/Hg (35-45); ARTERIAL BLOOD GAS PH 7.36 (7.35-7.45); ARTERIAL BLOOD GAS PO2 66 mm/Hg (80-100); ARTERIAL BLOOD GAS TCO2 29.2 mmol/L (22-28)
[2018-10-07 06:31] LABS: HEMOGLOBIN 10.2 g/dL (12.0-16.0); MEAN CELL VOLUME 92.5 fl (81.0-99.0); MEAN CORPUSCULAR HEMOGLOBIN 30.2 pg (27.0-31.0); MEAN CORPUSCULAR HGB CONC 32.6 g/dL (33.0-37.0); RBC 3.38 Mil/uL (3.80-5.20); WHITE BLOOD COUNT 8.3 K/uL (4.8-10.8)
[2018-10-07 06:34] LABS: ALB/GLOB RATIO 0.9 (1.0-2.1); ALBUMIN 2.5 g/dL (3.5-5.0); ALT/SGPT 33 U/L (9-52); AST/SGOT 27 U/L (14-36); BLOOD UREA NITROGEN 57 mg/dl (7-17); CALCIUM 7.6 mg/dL (8.4-10.2); GFR NON-AFRICAN AMERICAN > 60
[2018-10-07] MEDS: Furosemide 100 MG in Sodium Chloride 0.9% 100 ML IV SCH (06:54)
--- NOTE | 2018-10-07 08:27 | RAD ---
Date of service: 10/07/2018 HISTORY: Trach, vented. COMPARISON: Yesterday FINDINGS: LUNGS: There is no significant interval change in the appearance of the lungs. Tracheostomy tube and left central line catheter are also unchanged. PLEURA: Stable moderate left effusion and smaller right effusion CARDIOVASCULAR: No aortic atherosclerotic calcification present. Heart is unchanged and enlarged. No pulmonary vascular congestion. OSSEOUS STRUCTURES: No significant abnormalities. VISUALIZED UPPER ABDOMEN: Normal. OTHER FINDINGS: None. IMPRESSION: Stable moderate left effusion and atelectasis in the left lung.
[2018-10-07] MEDS: Fluconazole IV 100mg/50 ml NS 50 ML IVPB SCH (08:48)
--- NOTE | 2018-10-07 11:06 | CP.PCM.PN ---
Subjective - Date & Time of Evaluation Date of Evaluation: 10/07/18 Time of Evaluation: 11:06 - Subjective Subjective: ID Note- Pt. seen and examined in ICU today. remains very lethargic and intubated. no new events overnight. her family at her bedside. pt. does not open her eyes when her name is called. Objective - Vital Signs/Intake and Output Vital Signs (last 24 hours): Temp Pulse Resp BP Pulse Ox 99 F 112 H 17 87/50 L 94 L 10/07/18 08:00 10/07/18 08:00 10/07/18 08:00 10/07/18 08:00 10/07/18 08:00 Intake and Output: 10/07/18 10/07/18 06:59 18:59 Intake Total 1905 700 Output Total 385 Balance 1520 700 - Medications Medications: Current Medications Allopurinol (Zyloprim) 100 mg NG DAILY GLADIS Last Admin: 09/27/18 08:16 Dose: 100 mg Meropenem 1 gm/ Sodium (Chloride) 100 mls @ 100 mls/hr IVPB Q8 GLADIS; Protocol Last Admin: 10/07/18 08:49 Dose: 100 mls/hr Furosemide 100 mg/ Sodium (Chloride) 100 mls @ 10 mls/hr IV .Q10H GLADIS; Protocol Last Admin: 10/07/18 06:54 Dose: 10 mls/hr Fluconazole (Diflucan Iv 100 Mg/50 Ml Ns) 50 mls @ 50 mls/hr IVPB DAILY GLADIS; Protocol Last Admin: 10/07/18 08:48 Dose: 50 mls/hr Vancomycin HCl 750 mg/ Sodium (Chloride) 250 mls @ 166.667 mls/hr IVPB Q12 GLADIS; Protocol Last Admin: 10/07/18 08:50 Dose: 166.667 mls/hr Loratadine (Claritin) 10 mg PO DAILY GLADIS Last Admin: 10/07/18 08:48 Dose: 10 mg Pantoprazole Sodium (Protonix Inj) 40 mg IVP DAILY GLADIS Last Admin: 10/07/18 08:49 Dose: 40 mg - Labs Labs: - Additional Findings Additional findings: - Constitutional Appears: Chronically Ill Additional comments: intubated and lethargic - Eye Exam Eye Exam: PERRL - ENT Exam Additional comments: s/p trache - Respiratory Exam Additional comments: On the vent - Cardiovascular Exam Cardiovascular Exam: Tachycardia, +S1, +S2 - GI/Abdominal Exam Additional comments: distended hypoactive BS umbilical region with mass like lesion with denuded skin , no pus + ascites - Extremities Exam Additional comments: b/l 2+ edema in LE and UE - Neurological Exam Additional comments: more alert and responds to questions by nodding yes or no. - Skin Additional comments: right breast entirely covered with fungating looking round erythematous lesions . maculopapular drug rash less intense today. Laboratory Results - last 72 hr 10/05/18 10/05/18 10/05/18 04:30 05:00 05:00 WBC 7.3 RBC 3.35 L Hgb 10.0 L Hct 30.7 L MCV 91.8 D MCH 29.8 MCHC 32.5 L RDW 16.8 H Plt Count 122 L MPV 10.6 Neut % (Auto) 64.7 Lymph % (Auto) 23.8 [place] % (Auto) 10.0 Eos % (Auto) 0.0 Baso % (Auto) 1.5 Neut # (Auto) 4.7 Lymph # (Auto) 1.7 [place] # (Auto) 0.7 Eos # (Auto) 0.0 Baso # (Auto) 0.1 pCO2 41 pO2 57 L HCO3 27.4 ABG pH 7.44 ABG Total CO2 29.1 H ABG O2 Saturation 94.6 L ABG O2 Content 13.2 L ABG Base Excess 3.3 H ABG Hemoglobin 10.3 L ABG Carboxyhemoglobin 1.9 H POC ABG HHb (Measured) 5.2 H ABG Methemoglobin 1.7 ABG O2 Capacity 14.0 L Frederic Test Yes A-a O2 Difference 320.0 Hgb O2 Saturation 91.2 L Vent Mode A/c Mechanical Rate 10 FiO2 60.0 Tidal Volume 500 PEEP 5 Sodium 150 H Potassium 4.1 Chloride 118 H Carbon Dioxide 29 Anion Gap 7 L BUN 49 H Creatinine 0.7 Est GFR ( Amer) > 60 Est GFR (Non-Af Amer) > 60 Random Glucose 116 H Calcium 7.1 L Total Bilirubin AST ALT Alkaline Phosphatase Total Protein Albumin Globulin Albumin/Globulin Ratio Blood Type Antibody Screen Crossmatch BBK History Checked 10/06/18 10/06/18 10/06/18 04:20 04:20 05:00 WBC 6.0 RBC 2.30 L Hgb 6.8 L D Hct 21.2 L MCV 92.0 MCH 29.6 MCHC 32.2 L RDW 16.3 H Plt Count 89 L D MPV 10.4 Neut % (Auto) 70.5 Lymph % (Auto) 18.2 L [place] % (Auto) 10.4 H Eos % (Auto) 0.1 Baso % (Auto) 0.8 Neut # (Auto) 4.2 Lymph # (Auto) 1.1 [place] # (Auto) 0.6 Eos # (Auto) 0.0 Baso # (Auto) 0.1 pCO2 55 H pO2 77 L HCO3 26.9 ABG pH 7.33 L ABG Total CO2 30.7 H ABG O2 Saturation 99.6 H ABG O2 Content 11.6 L ABG Base Excess 2.5 ABG Hemoglobin 8.5 L ABG Carboxyhemoglobin 2.4 H POC ABG HHb (Measured) 0.4 ABG Methemoglobin 1.1 ABG O2 Capacity 11.6 L Frederic Test Yes A-a O2 Difference 282.0 Hgb O2 Saturation 96.1 Vent Mode A/c Mechanical Rate 10 FiO2 60.0 Tidal Volume 350 PEEP 5 Sodium 148 Potassium 4.2 Chloride 121 H Carbon Dioxide 30 Anion Gap 1 L BUN 55 H Creatinine 0.8 Est GFR ( Amer) > 60 Est GFR (Non-Af Amer) > 60 Random Glucose 89 Calcium 6.0 L* Total Bilirubin AST ALT Alkaline Phosphatase Total Protein Albumin Globulin Albumin/Globulin Ratio Blood Type Antibody Screen Crossmatch BBK History Checked 10/06/18 10/07/18 10/07/18 08:20 04:22 06:00 WBC 8.3 RBC 3.38 L Hgb 10.2 L D Hct 31.2 L MCV 92.5 MCH 30.2 MCHC 32.6 L RDW 16.0 H Plt Count 115 L D MPV Neut % (Auto) Lymph % (Auto) [place] % (Auto) Eos % (Auto) Baso % (Auto) Neut # (Auto) Lymph # (Auto) [place] # (Auto) Eos # (Auto) Baso # (Auto) pCO2 49 H pO2 66 L HCO3 26.2 ABG pH 7.36 ABG Total CO2 29.2 H ABG O2 Saturation 96.6 ABG O2 Content 14.2 L ABG Base Excess 1.7 ABG Hemoglobin 10.8 L ABG Carboxyhemoglobin 1.9 H POC ABG HHb (Measured) 3.3 ABG Methemoglobin 1.6 ABG O2 Capacity 14.7 L Frederic Test Yes A-a O2 Difference 301.0 Hgb O2 Saturation 93.2 L Vent Mode A/c Mechanical Rate 16 FiO2 60.0 Tidal Volume 380 PEEP 5 Sodium Potassium Chloride Carbon Dioxide Anion Gap BUN Creatinine Est GFR ( Amer) Est GFR (Non-Af Amer) Random Glucose Calcium Total Bilirubin AST ALT Alkaline Phosphatase Total Protein Albumin Globulin Albumin/Globulin Ratio Blood Type A POSITIVE Antibody Screen Negative Crossmatch See Detail BBK History Checked Patient has bt 10/07/18 06:00 WBC RBC Hgb Hct MCV MCH MCHC RDW Plt Count MPV Neut % (Auto) Lymph % (Auto) [place] % (Auto) Eos % (Auto) Baso % (Auto) Neut # (Auto) Lymph # (Auto) [place] # (Auto) Eos # (Auto) Baso # (Auto) pCO2 pO2 HCO3 ABG pH ABG Total CO2 ABG O2 Saturation ABG O2 Content ABG Base Excess ABG Hemoglobin ABG Carboxyhemoglobin POC ABG HHb (Measured) ABG Methemoglobin ABG O2 Capacity Frederic Test A-a O2 Difference Hgb O2 Saturation Vent Mode Mechanical Rate FiO2 Tidal Volume PEEP Sodium 148 Potassium 3.8 Chloride 110 H Carbon Dioxide 27 Anion Gap 15 BUN 57 H Creatinine 0.8 Est GFR ( Amer) > 60 Est GFR (Non-Af Amer) > 60 Random Glucose 104 Calcium 7.6 L Total Bilirubin 0.9 AST 27 ALT 33 Alkaline Phosphatase 53 Total Protein 5.4 L Albumin 2.5 L D Globulin 2.8 Albumin/Globulin Ratio 0.9 L Blood Type Antibody Screen Crossmatch BBK History Checked Microbiology 10/05/18 06:30 Blood Blood Culture - Preliminary NO GROWTH AFTER 48 HOURS 10/05/18 06:15 Blood Blood Culture - Preliminary NO GROWTH AFTER 48 HOURS 10/05/18 07:10 Urine,[place] Urine Culture - Final Yeast Species 09/25/18 12:10 Blood-Thru Central Line Blood Culture - Final NO GROWTH AFTER 5 DAYS 09/25/18 12:10 Blood-Thru Central Line Gram Stain - Final TEST NOT PERFORMED 09/20/18 14:00 Blood-Thru Central Line Blood Culture - Final NO GROWTH AFTER 5 DAYS 09/20/18 17:53 Trachasp Gram Stain - Final 09/20/18 17:53 Trachasp Sputum Culture - Final Yeast Species 09/20/18 17:53 Urine,[place] Urine Culture - Final No Growth (<1,000 CFU/ML) 09/15/18 15:35 Blood-Thru Central Line Blood Culture - Final NO GROWTH AFTER 5 DAYS 09/15/18 15:35 Blood-Thru Central Line Gram Stain - Final TEST NOT PERFORMED 09/15/18 15:25 Blood-Thru Central Line Blood Culture - Final NO GROWTH AFTER 5 DAYS 09/15/18 15:25 Blood-Thru Central Line Gram Stain - Final TEST NOT PERFORMED 09/08/18 11:49 Blood-Venous Blood Culture - Final NO GROWTH AFTER 5 DAYS 09/08/18 11:49 Blood-Venous Gram Stain - Final TEST NOT PERFORMED 09/08/18 11:49 Blood-Venous Blood Culture - Final NO GROWTH AFTER 5 DAYS 09/08/18 11:49 Blood-Venous Gram Stain - Final TEST NOT PERFORMED 09/07/18 Unknown Blood-Thru Central Line Blood Culture - Final NO GROWTH AFTER 5 DAYS 09/07/18 Unknown Blood-Thru Central Line Gram Stain - Final TEST NOT PERFORMED 09/07/18 Unknown Blood-Thru Central Line Blood Culture - Final NO GROWTH AFTER 5 DAYS 09/07/18 Unknown Blood-Thru Central Line Gram Stain - Final TEST NOT PERFORMED 09/07/18 09:07 Trachasp Gram Stain - Final 09/07/18 09:07 Trachasp Sputum Culture - Final Yeast Species 09/04/18 11:25 Naris MRSA Culture (Admit) - Final MRSA NOT DETECTED Accession No. : [id number] Patient Name / ID : RYLEE ONEIL / [id number] Exam Date : 10/07/2018 04:40:43 ( Approved ) Study Comment : Sex / Age : F / 58Y Creator : Nancy Johnson MD Dictator : Nancy Johnson MD Solderer Barrel Ribs : [employer]ipelines Supervisor : Nancy Johnson MD Approver2 : Report Date : 10/07/2018 08:21:33 My Comment : Date of service: 10/07/2018 HISTORY: Trach, vented. COMPARISON: Yesterday FINDINGS: LUNGS: There is no significant interval change in the appearance of the lungs. Tracheostomy tube and left central line catheter are also unchanged. PLEURA: Stable moderate left effusion and smaller right effusion CARDIOVASCULAR: No aortic atherosclerotic calcification present. Heart is unchanged and enlarged. No pulmonary vascular congestion. OSSEOUS STRUCTURES: No significant abnormalities. VISUALIZED UPPER ABDOMEN: Normal. OTHER FINDINGS: None. IMPRESSION: Stable moderate left effusion and atelectasis in the left lung. 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 reamisn unresponsive today. remaisn on the vent afebrile today so far CXR report noted continues to have anemia and thrombocytopenia blood cx- neg x 10 trach asp cx- yeast stool c.diff- negative repeat UA- negative repeat urine cx- neg PLan- completed 14 days of empiric vanco. vanco resumed again yesterday since she is on the vent still and lung function not improving and she is immunosuppressed to cover for HAP empirically. keep vanco trough <15. advise to continue IV meropnem for broad spectrum gram negative coverage.day #27 continue with IV diflucan day #27 above abx and antifungal being continues sine pt. is immunecompromised and is on vent.( they are empiric). prognosis poor. critical care time spent 30 minutes.
--- NOTE | 2018-10-07 14:30 | CP.CCUPN ---
CCU Subjective - Physician Review Events Since Last Encounter (Free Text): 10/07/18 14:28 comatose. CCU Objective - Vital Signs / Intake & Output Vital Signs (Last 4 hours): Vital Signs Temp Pulse Resp BP Pulse Ox 10/07/18 11:57 99.1 F 95 H 18 105/60 94 L Intake and Output (Last 8hrs): Intake & Output 10/06/18 10/07/18 10/07/18 22:59 06:59 14:59 Intake Total 1985 1255 700 Output Total 400 385 Balance 1585 870 700 Weight 186 lb 4.8 oz Intake: IV 620 Intake, Piggyback 250 100 400 Oral 0 Tube Feeding 140 420 300 Blood Product 325 325 Red Blood Cells Cpd As1 325 Lr Unit [id number] Red Blood Cells Cpd As1 325 Lr Unit [id number] Free Water Flush 600 400 Other 50 10 Red Blood Cells Cpd As1 10 Lr Unit [id number] Red Blood Cells Cpd As1 50 Lr Unit [id number] Output: Urine 400 385 Urethral (Hardwick) 400 385 - Physical Exam Head: Positive for: Atraumatic, Normocephalic Pupils: Positive for: PERRL Extroacular Muscles: Positive for: EOMI Conjunctiva: Negative for: Injected, Icteric Ears: Positive for: Normal Mouth: Positive for: Moist Mucous Membranes Nose (Internal): Positive for: Normal Inspection Neck: Positive for: Normal Range of Motion, Trachea Midline. Negative for: Meningeal Signs, MIDLINE TENDERNESS, Paraspinal Tenderness, JVD, Lymphadenopathy, Bruit, Other Respiratory/Chest: Positive for: Good Air Exchange, Rales, Retracting, Rhonchi. Negative for: Respiratory Distress, Accessory Muscle Use, Wheezes, Tachypneic Cardiovascular: Positive for: Regular Rate and Rhythm, Normal S1, S2, Peripheal Pulses Present. Negative for: Murmurs, Irregular Rhythm, Tachycardic, Jet cardic Abdomen: Positive for: Normal Bowel Sounds. Negative for: Tenderness Breast/Axillary: Positive for: Other (fungating necrotic mass to Right Breast) Upper Extremity: Positive for: Edema, NORMAL PULSES. Negative for: Normal Inspection, Cyanosis Lower Extremity: Positive for: Edema, NORMAL PULSES. Negative for: Normal Inspection Neurological: Positive for: Other (on ventilator, opens eyes to verbal stimuli) Psychiatric: Positive for: Other (Sedated and orally intubated). Negative for: Alert - Medications Active Medications: Active Medications Generic Name Dose Route Start Last Admin Trade Name Freq PRN Reason Stop Dose Admin Allopurinol 100 mg 09/14/18 09:00 09/27/18 08:16 Zyloprim NG 100 mg DAILY GLADIS Administration Meropenem 1 gm/ Sodium 100 mls @ 100 mls/hr 09/18/18 12:45 10/07/18 08:49 Chloride IVPB 100 mls/hr Q8 GLADIS Administration Protocol Furosemide 100 mg/ Sodium 100 mls @ 10 mls/hr 10/05/18 10:15 10/07/18 06:54 Chloride IV 10 mls/hr .Q10H GLADIS Administration Protocol 10 MG/HR Fluconazole 50 mls @ 50 mls/hr 10/06/18 15:45 10/07/18 08:48 Diflucan Iv 100 Mg/50 Ml Ns IVPB 50 mls/hr DAILY GLADIS Administration Protocol Vancomycin HCl 750 mg/ Sodium 250 mls @ 166.667 mls/hr 10/06/18 21:00 10/07/18 08:50 Chloride IVPB 166.667 mls/hr Q12 GLADIS Administration Protocol Loratadine 10 mg 09/29/18 12:15 10/07/18 08:48 Claritin PO 10 mg DAILY GLADIS Administration Pantoprazole Sodium 40 mg 09/19/18 22:00 10/07/18 08:49 Protonix Inj IVP 40 mg DAILY GLADIS Administration - Patient Studies Lab Studies: Microbiology Studies 10/05/18 06:30 Blood Culture - Preliminary Blood NO GROWTH AFTER 48 HOURS 10/05/18 06:15 Blood Culture - Preliminary Blood NO GROWTH AFTER 48 HOURS 10/05/18 07:10 Urine Culture - Final Urine,Hardwick Yeast Species Lab Studies 10/07/18 10/07/18 10/07/18 Range/Units 06:00 06:00 04:22 WBC 8.3 (4.8-10.8) K/uL RBC 3.38 L (3.80-5.20) Mil/uL Hgb 10.2 L D (12.0-16.0) g/dL Hct 31.2 L (34.0-47.0) % MCV 92.5 (81.0-99.0) fl MCH 30.2 (27.0-31.0) pg MCHC 32.6 L (33.0-37.0) g/dL RDW 16.0 H (11.5-14.5) % Plt Count 115 L D (130-400) K/uL pCO2 49 H (35-45) mm/Hg pO2 66 L (80-100) mm/Hg HCO3 26.2 (21-28) mmol/L ABG pH 7.36 (7.35-7.45) ABG Total CO2 29.2 H (22-28) mmol/L ABG O2 Saturation 96.6 (95-98) % ABG O2 Content 14.2 L (15-23) ML/dL ABG Base Excess 1.7 (-2.0-3.0) mmol/L ABG Hemoglobin 10.8 L (11.7-17.4) g/dL ABG Carboxyhemoglobin 1.9 H (0.5-1.5) % POC ABG HHb (Measured) 3.3 (0.0-5.0) % ABG Methemoglobin 1.6 (0.0-3.0) % ABG O2 Capacity 14.7 L (16-24) mL/dL Frederic Test Yes A-a O2 Difference 301.0 mm/Hg Hgb O2 Saturation 93.2 L (95.0-98.0) % Vent Mode A/c Mechanical Rate 16 FiO2 60.0 % Tidal Volume 380 PEEP 5 Sodium 148 (132-148) mmol/l Potassium 3.8 (3.6-5.0) MMOL/L Chloride 110 H (98-107) mmol/L Carbon Dioxide 27 (22-30) mmol/L Anion Gap 15 (10-20) BUN 57 H (7-17) mg/dl Creatinine 0.8 (0.7-1.2) mg/dl Est GFR ( Amer) > 60 Est GFR (Non-Af Amer) > 60 Random Glucose 104 (65-105) mg/dL Calcium 7.6 L (8.4-10.2) mg/dL Total Bilirubin 0.9 (0.2-1.3) mg/dl AST 27 (14-36) U/L ALT 33 (9-52) U/L Alkaline Phosphatase 53 (38-126) U/L Total Protein 5.4 L (6.3-8.2) G/DL Albumin 2.5 L D (3.5-5.0) g/dL Globulin 2.8 (2.2-3.9) gm/dL Albumin/Globulin Ratio 0.9 L (1.0-2.1) Blood Type Antibody Screen Crossmatch BBK History Checked 10/06/18 Range/Units 08:20 WBC (4.8-10.8) K/uL RBC (3.80-5.20) Mil/uL Hgb (12.0-16.0) g/dL Hct (34.0-47.0) % MCV (81.0-99.0) fl MCH (27.0-31.0) pg MCHC (33.0-37.0) g/dL RDW (11.5-14.5) % Plt Count (130-400) K/uL pCO2 (35-45) mm/Hg pO2 (80-100) mm/Hg HCO3 (21-28) mmol/L ABG pH (7.35-7.45) ABG Total CO2 (22-28) mmol/L ABG O2 Saturation (95-98) % ABG O2 Content (15-23) ML/dL ABG Base Excess (-2.0-3.0) mmol/L ABG Hemoglobin (11.7-17.4) g/dL ABG Carboxyhemoglobin (0.5-1.5) % POC ABG HHb (Measured) (0.0-5.0) % ABG Methemoglobin (0.0-3.0) % ABG O2 Capacity (16-24) mL/dL Frederic Test A-a O2 Difference mm/Hg Hgb O2 Saturation (95.0-98.0) % Vent Mode Mechanical Rate FiO2 % Tidal Volume PEEP Sodium (132-148) mmol/l Potassium (3.6-5.0) MMOL/L Chloride (98-107) mmol/L Carbon Dioxide (22-30) mmol/L Anion Gap (10-20) BUN (7-17) mg/dl Creatinine (0.7-1.2) mg/dl Est GFR ( Amer) Est GFR (Non-Af Amer) Random Glucose (65-105) mg/dL Calcium (8.4-10.2) mg/dL Total Bilirubin (0.2-1.3) mg/dl AST (14-36) U/L ALT (9-52) U/L Alkaline Phosphatase (38-126) U/L Total Protein (6.3-8.2) G/DL Albumin (3.5-5.0) g/dL Globulin (2.2-3.9) gm/dL Albumin/Globulin Ratio (1.0-2.1) Blood Type A POSITIVE Antibody Screen Negative Crossmatch See Detail BBK History Checked Patient has bt Laboratory Results - last 24 hr 10/06/18 10/07/18 10/07/18 08:20 04:22 06:00 WBC 8.3 RBC 3.38 L Hgb 10.2 L D Hct 31.2 L MCV 92.5 MCH 30.2 MCHC 32.6 L RDW 16.0 H Plt Count 115 L D pCO2 49 H pO2 66 L HCO3 26.2 ABG pH 7.36 ABG Total CO2 29.2 H ABG O2 Saturation 96.6 ABG O2 Content 14.2 L ABG Base Excess 1.7 ABG Hemoglobin 10.8 L ABG Carboxyhemoglobin 1.9 H POC ABG HHb (Measured) 3.3 ABG Methemoglobin 1.6 ABG O2 Capacity 14.7 L Frederic Test Yes A-a O2 Difference 301.0 Hgb O2 Saturation 93.2 L Vent Mode A/c Mechanical Rate 16 FiO2 60.0 Tidal Volume 380 PEEP 5 Sodium Potassium Chloride Carbon Dioxide Anion Gap BUN Creatinine Est GFR ( Amer) Est GFR (Non-Af Amer) Random Glucose Calcium Total Bilirubin AST ALT Alkaline Phosphatase Total Protein Albumin Globulin Albumin/Globulin Ratio Blood Type A POSITIVE Antibody Screen Negative Crossmatch See Detail BBK History Checked Patient has bt 10/07/18 06:00 WBC RBC Hgb Hct MCV MCH MCHC RDW Plt Count pCO2 pO2 HCO3 ABG pH ABG Total CO2 ABG O2 Saturation ABG O2 Content ABG Base Excess ABG Hemoglobin ABG Carboxyhemoglobin POC ABG HHb (Measured) ABG Methemoglobin ABG O2 Capacity Frederic Test A-a O2 Difference Hgb O2 Saturation Vent Mode Mechanical Rate FiO2 Tidal Volume PEEP Sodium 148 Potassium 3.8 Chloride 110 H Carbon Dioxide 27 Anion Gap 15 BUN 57 H Creatinine 0.8 Est GFR ( Amer) > 60 Est GFR (Non-Af Amer) > 60 Random Glucose 104 Calcium 7.6 L Total Bilirubin 0.9 AST 27 ALT 33 Alkaline Phosphatase 53 Total Protein 5.4 L Albumin 2.5 L D Globulin 2.8 Albumin/Globulin Ratio 0.9 L Blood Type Antibody Screen Crossmatch BBK History Checked Radiology Impressions: Radiology Impressions Chest X-Ray 10/07/18 05:00 IMPRESSION: Stable moderate left effusion and atelectasis in the left lung. Review of Systems - Review of Systems Systems not reviewed;Unavailable: Altered Mental Status Critical Care Progress Note - Nutrition Nutrition: Nutrition Category Date Time Status NPO Diet [DIET] Diets 10/03/18 Breakfast Active Assessment/Plan (1) Multiple organ dysfunction syndrome Assessment and plan: 58yo F. PMHx anemia, anxiety, CHF, DVT, PE, stage 4 metastatic breast CA on chemotx. p/w acute respiratory failure. 10/03/18 trach placed. Neuro: no sedation, but still comatose. Pulm: acute respiratory failure, now trach'd on vent. CV: hemodynamicaly stable, now off pressors. Hem: thrombocytopenia. bleeding from uterine cancer, requiring recurrent multiple transfusions (29 units so far). Renal: worsening oliguria, even with lasix gtt - stopping. anasarca. hypernatremia improving. Discussed with PMD - Dr. Peterson, and agree she is not a candidate for dialysis. Endo: no acute issues GI: NPO, Pulmocare, free water 200ml q6h for hypernatremia. ID: mulitlobar pneumonia continue Meropenem, Fluconazole and Vancomycin. DVT proph - SCD's, a/c held with current bleeding GI proph - protonix hardwick for strict I/O's during acute illness Code status - full code Patient has an extremely poor prognosis and a high mortality risk. I had a long conversation with patient's mother and son. Explained that she is in multi organ failure with a bleeding metastatic cancer and will not survive this admission. They do not want to deal with this reality and are making no decisions for withdrawal of care of making her comfortable. Critical Care time spent 35 minutes Multi-disciplinary rounds were performed with house staff, nursing, speech therapy, respiratory therapy, pharmacy and nutrition with integrated input from the primary team/attending and other consulting services. The documented time is cumulative and includes review of patient data/exams/labs/chart review and examination of the patient on rounds and throughout the day; time is exclusive of any procedures or teaching time. Current Visit: Yes Status: Acute
--- NOTE | 2018-10-07 21:56 | CP.PCM.PN ---
Subjective - Date & Time of Evaluation Date of Evaluation: 10/06/18 Time of Evaluation: 13:00 - Subjective Subjective: Vented Objective - Vital Signs/Intake and Output Vital Signs (last 24 hours): Temp Pulse Resp BP Pulse Ox 99.9 F H 119 H 18 92/59 L 95 10/07/18 20:00 10/07/18 20:00 10/07/18 20:00 10/07/18 20:00 10/07/18 20:00 Intake and Output: 10/07/18 10/08/18 18:59 06:59 Intake Total 1544 37 Output Total 250 Balance 1294 37 - Medications Medications: Current Medications Allopurinol (Zyloprim) 100 mg NG DAILY GLADIS Last Admin: 09/27/18 08:16 Dose: 100 mg Meropenem 1 gm/ Sodium (Chloride) 100 mls @ 100 mls/hr IVPB Q8 GLADIS; Protocol Last Admin: 10/07/18 16:30 Dose: 100 mls/hr Fluconazole (Diflucan Iv 100 Mg/50 Ml Ns) 50 mls @ 50 mls/hr IVPB DAILY GLADIS; Protocol Last Admin: 10/07/18 08:48 Dose: 50 mls/hr Vancomycin HCl 750 mg/ Sodium (Chloride) 250 mls @ 166.667 mls/hr IVPB Q12 GLADIS; Protocol Last Admin: 10/07/18 21:52 Dose: 166.667 mls/hr Loratadine (Claritin) 10 mg PO DAILY GLADIS Last Admin: 10/07/18 08:48 Dose: 10 mg Pantoprazole Sodium (Protonix Inj) 40 mg IVP DAILY GLADIS Last Admin: 10/07/18 08:49 Dose: 40 mg - Labs Labs: 10/07/18 06:00 10/07/18 06:00 PT 14.9 Seconds (9.8-13.1) H 10/03/18 04:40 INR 1.3 10/03/18 04:40 APTT 26.7 Seconds (25.6-37.1) 10/03/18 04:40 - Head Exam Head Exam: ATRAUMATIC - Eye Exam Eye Exam: Normal appearance - ENT Exam ENT Exam: Mucous Membranes Dry - Respiratory Exam Respiratory Exam: Decreased Breath Sounds - Cardiovascular Exam Cardiovascular Exam: +S1, +S2 - GI/Abdominal Exam GI & Abdominal Exam: Normal Bowel Sounds - Extremities Exam Extremities Exam: Pedal Edema Assessment and Plan (1) Pancytopenia Assessment & Plan: WBC normalized H/H fairly stable; hematuria/vaginal bleeding improved plt count greatly improved Status: Acute (2) Pulmonary embolism Assessment & Plan: not an anticoagulation candidate due to bleeding Status: Acute (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
--- NOTE | 2018-10-07 21:57 | CP.PCM.PN ---
Subjective - Date & Time of Evaluation Date of Evaluation: 10/07/18 Time of Evaluation: 17:00 - Subjective Subjective: Vented, mother at bedside. Objective - Vital Signs/Intake and Output Vital Signs (last 24 hours): Temp Pulse Resp BP Pulse Ox 99.9 F H 119 H 18 92/59 L 95 10/07/18 20:00 10/07/18 20:00 10/07/18 20:00 10/07/18 20:00 10/07/18 20:00 Intake and Output: 10/07/18 10/08/18 18:59 06:59 Intake Total 1544 37 Output Total 250 Balance 1294 37 - Medications Medications: Current Medications Allopurinol (Zyloprim) 100 mg NG DAILY [facility] Last Admin: 09/27/18 08:16 Dose: 100 mg Meropenem 1 gm/ Sodium (Chloride) 100 mls @ 100 mls/hr IVPB Q8 [facility]; Protocol Last Admin: 10/07/18 16:30 Dose: 100 mls/hr Fluconazole (Diflucan Iv 100 Mg/50 Ml Ns) 50 mls @ 50 mls/hr IVPB DAILY [facility]; Protocol Last Admin: 10/07/18 08:48 Dose: 50 mls/hr Vancomycin HCl 750 mg/ Sodium (Chloride) 250 mls @ 166.667 mls/hr IVPB Q12 [facility]; Protocol Last Admin: 10/07/18 21:52 Dose: 166.667 mls/hr Loratadine (Claritin) 10 mg PO DAILY [facility] Last Admin: 10/07/18 08:48 Dose: 10 mg Pantoprazole Sodium (Protonix Inj) 40 mg IVP DAILY [facility] Last Admin: 10/07/18 08:49 Dose: 40 mg - Labs Labs: 10/07/18 06:00 10/07/18 06:00 PT 14.9 Seconds (9.8-13.1) H 10/03/18 04:40 INR 1.3 10/03/18 04:40 APTT 26.7 Seconds (25.6-37.1) 10/03/18 04:40 - Head Exam Head Exam: ATRAUMATIC - Eye Exam Eye Exam: Normal appearance - ENT Exam ENT Exam: Mucous Membranes Dry - Respiratory Exam Respiratory Exam: Decreased Breath Sounds - Cardiovascular Exam Cardiovascular Exam: +S1, +S2 - GI/Abdominal Exam GI & Abdominal Exam: Normal Bowel Sounds - Extremities Exam Extremities Exam: Pedal Edema Assessment and Plan (1) Pancytopenia Assessment & Plan: WBC normalized H/H fairly stable; hematuria/vaginal bleeding improved plt count greatly improved Status: Acute (2) Pulmonary embolism Assessment & Plan: not an anticoagulation candidate due to bleeding Status: Acute (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
[2018-10-08] MEDS: Meropenem 1 GM in Sodium Chloride 0.9% 100 ML IVPB SCH ×3 (00:15→16:16)
[2018-10-08 05:02] LABS: ABG ALLEN TEST YES; ARTERIAL BLOOD GAS HCO3 24.8 mmol/L (21-28); ARTERIAL BLOOD GAS HEMOGLOBIN 12.1 g/dL (11.7-17.4); ARTERIAL BLOOD GAS O2 CAPACITY 16.4 mL/dL (16-24); ARTERIAL BLOOD GAS O2 SAT 97.4 % (95-98); ARTERIAL BLOOD GAS PCO2 47 mm/Hg (35-45); ARTERIAL BLOOD GAS PH 7.35 (7.35-7.45); ARTERIAL BLOOD GAS PO2 73 mm/Hg (80-100); ARTERIAL BLOOD GAS TCO2 27.3 mmol/L (22-28)
[2018-10-08 07:10] LABS: BLOOD UREA NITROGEN 62 mg/dl (7-17); CALCIUM 6.9 mg/dL (8.4-10.2); GFR NON-AFRICAN AMERICAN > 60
--- NOTE | 2018-10-08 10:01 | RAD ---
Date of service: 10/08/2018 PROCEDURE: CHEST RADIOGRAPH, 1 VIEW HISTORY: trach COMPARISON: Yesterday FINDINGS: LUNGS: There may be some mild increased subsegmental atelectasis in the right lung when compared to the prior study. Left lung is grossly unchanged. Tracheostomy tube, left Port-A-Cath, and NG tube are unchanged. Bilateral effusions are once again identified. PLEURA: See above. CARDIOVASCULAR: Aorta is limited by overlying instruments. Minor atherosclerotic calcification is not excluded. Vasculature is stable. OSSEOUS STRUCTURES: See above. VISUALIZED UPPER ABDOMEN: Normal. OTHER FINDINGS: None. IMPRESSION: Mild increase in subsegmental atelectasis in the right lung. Grossly stable appearance of the moderate left pleural fluid and density in the left lung.
[2018-10-08] MEDS: Fluconazole IV 100mg/50 ml NS 50 ML IVPB SCH (12:15)
--- NOTE | 2018-10-08 13:34 | CP.PCM.PN ---
Subjective - Date & Time of Evaluation Date of Evaluation: 10/08/18 Time of Evaluation: 13:33 - Subjective Subjective: ID Note- Pt. seen and examined today. no new events overnight, pt. unresponsive. Objective - Vital Signs/Intake and Output Vital Signs (last 24 hours): Temp Pulse Resp BP Pulse Ox 99.0 F 116 H 18 91/51 L 94 L 10/08/18 12:00 10/08/18 12:00 10/08/18 12:00 10/08/18 12:00 10/08/18 12:00 Intake and Output: 10/08/18 10/08/18 06:59 18:59 Intake Total 949 540 Output Total 500 Balance 449 540 - Medications Medications: Current Medications Allopurinol (Zyloprim) 100 mg NG DAILY [facility] Last Admin: 09/27/18 08:16 Dose: 100 mg Meropenem 1 gm/ Sodium (Chloride) 100 mls @ 100 mls/hr IVPB Q8 [facility]; Protocol Last Admin: 10/08/18 08:12 Dose: 100 mls/hr Fluconazole (Diflucan Iv 100 Mg/50 Ml Ns) 50 mls @ 50 mls/hr IVPB DAILY [facility]; Protocol Last Admin: 10/08/18 12:15 Dose: 50 mls/hr Vancomycin HCl 750 mg/ Sodium (Chloride) 250 mls @ 166.667 mls/hr IVPB Q12 [facility]; Protocol Last Admin: 10/08/18 09:20 Dose: 166.667 mls/hr Loratadine (Claritin) 10 mg PO DAILY [facility] Last Admin: 10/08/18 08:12 Dose: 10 mg Pantoprazole Sodium (Protonix Inj) 40 mg IVP DAILY [facility] Last Admin: 10/08/18 08:12 Dose: 40 mg - Labs Labs: 10/07/18 06:00 10/08/18 06:45 PT 14.9 Seconds (9.8-13.1) H 10/03/18 04:40 INR 1.3 10/03/18 04:40 APTT 26.7 Seconds (25.6-37.1) 10/03/18 04:40 - Additional Findings Additional findings: - Constitutional Appears: Chronically Ill Additional comments: on the vent and not responsive - Eye Exam Eye Exam: PERRL - ENT Exam Additional comments: s/p trache - Respiratory Exam Additional comments: On the vent - Cardiovascular Exam Cardiovascular Exam: Tachycardia, +S1, +S2 - GI/Abdominal Exam Additional comments: distended hypoactive BS umbilical region with mass like lesion with denuded skin , no pus + ascites - Extremities Exam Additional comments: b/l 2+ edema in LE and UE - Neurological Exam Additional comments: unresponsive Laboratory Results - last 72 hr 10/06/18 10/06/18 10/06/18 04:20 04:20 05:00 WBC 6.0 RBC 2.30 L Hgb 6.8 L D Hct 21.2 L MCV 92.0 MCH 29.6 MCHC 32.2 L RDW 16.3 H Plt Count 89 L D MPV 10.4 Neut % (Auto) 70.5 Lymph % (Auto) 18.2 L Titus % (Auto) 10.4 H Eos % (Auto) 0.1 Baso % (Auto) 0.8 Neut # (Auto) 4.2 Lymph # (Auto) 1.1 Titus # (Auto) 0.6 Eos # (Auto) 0.0 Baso # (Auto) 0.1 pCO2 55 H pO2 77 L HCO3 26.9 ABG pH 7.33 L ABG Total CO2 30.7 H ABG O2 Saturation 99.6 H ABG O2 Content 11.6 L ABG Base Excess 2.5 ABG Hemoglobin 8.5 L ABG Carboxyhemoglobin 2.4 H POC ABG HHb (Measured) 0.4 ABG Methemoglobin 1.1 ABG O2 Capacity 11.6 L Frederic Test Yes A-a O2 Difference 282.0 Hgb O2 Saturation 96.1 Vent Mode A/c Mechanical Rate 10 FiO2 60.0 Tidal Volume 350 PEEP 5 Sodium 148 Potassium 4.2 Chloride 121 H Carbon Dioxide 30 Anion Gap 1 L BUN 55 H Creatinine 0.8 Est GFR ( Amer) > 60 Est GFR (Non-Af Amer) > 60 Random Glucose 89 Calcium 6.0 L* Total Bilirubin AST ALT Alkaline Phosphatase Total Protein Albumin Globulin Albumin/Globulin Ratio Blood Type Antibody Screen Crossmatch BBK History Checked 10/06/18 10/07/18 10/07/18 08:20 04:22 06:00 WBC 8.3 RBC 3.38 L Hgb 10.2 L D Hct 31.2 L MCV 92.5 MCH 30.2 MCHC 32.6 L RDW 16.0 H Plt Count 115 L D MPV Neut % (Auto) Lymph % (Auto) Titus % (Auto) Eos % (Auto) Baso % (Auto) Neut # (Auto) Lymph # (Auto) Titus # (Auto) Eos # (Auto) Baso # (Auto) pCO2 49 H pO2 66 L HCO3 26.2 ABG pH 7.36 ABG Total CO2 29.2 H ABG O2 Saturation 96.6 ABG O2 Content 14.2 L ABG Base Excess 1.7 ABG Hemoglobin 10.8 L ABG Carboxyhemoglobin 1.9 H POC ABG HHb (Measured) 3.3 ABG Methemoglobin 1.6 ABG O2 Capacity 14.7 L Frederic Test Yes A-a O2 Difference 301.0 Hgb O2 Saturation 93.2 L Vent Mode A/c Mechanical Rate 16 FiO2 60.0 Tidal Volume 380 PEEP 5 Sodium Potassium Chloride Carbon Dioxide Anion Gap BUN Creatinine Est GFR ( Amer) Est GFR (Non-Af Amer) Random Glucose Calcium Total Bilirubin AST ALT Alkaline Phosphatase Total Protein Albumin Globulin Albumin/Globulin Ratio Blood Type A POSITIVE Antibody Screen Negative Crossmatch See Detail BBK History Checked Patient has bt 10/07/18 10/08/18 10/08/18 06:00 04:44 06:45 WBC RBC Hgb Hct MCV MCH MCHC RDW Plt Count MPV Neut % (Auto) Lymph % (Auto) Titus % (Auto) Eos % (Auto) Baso % (Auto) Neut # (Auto) Lymph # (Auto) Titus # (Auto) Eos # (Auto) Baso # (Auto) pCO2 47 H pO2 73 L HCO3 24.8 ABG pH 7.35 ABG Total CO2 27.3 ABG O2 Saturation 97.4 ABG O2 Content 16.0 ABG Base Excess -0.1 ABG Hemoglobin 12.1 ABG Carboxyhemoglobin 2.2 H POC ABG HHb (Measured) 2.5 ABG Methemoglobin 1.4 ABG O2 Capacity 16.4 Frederic Test Yes A-a O2 Difference 296.0 Hgb O2 Saturation 93.9 L Vent Mode A/c Mechanical Rate 16 FiO2 60.0 Tidal Volume 380 PEEP 5 Sodium 148 147 Potassium 3.8 4.2 Chloride 110 H 112 H Carbon Dioxide 27 26 Anion Gap 15 13 BUN 57 H 62 H Creatinine 0.8 0.9 Est GFR ( Amer) > 60 > 60 Est GFR (Non-Af Amer) > 60 > 60 Random Glucose 104 113 H Calcium 7.6 L 6.9 L Total Bilirubin 0.9 AST 27 ALT 33 Alkaline Phosphatase 53 Total Protein 5.4 L Albumin 2.5 L D Globulin 2.8 Albumin/Globulin Ratio 0.9 L Blood Type Antibody Screen Crossmatch BBK History Checked Microbiology 10/05/18 06:30 Blood Blood Culture - Preliminary NO GROWTH AFTER 3 DAYS 10/05/18 06:15 Blood Blood Culture - Preliminary NO GROWTH AFTER 3 DAYS 10/05/18 07:10 Urine,Orellana Urine Culture - Final Yeast Species 09/25/18 12:10 Blood-Thru Central Line Blood Culture - Final NO GROWTH AFTER 5 DAYS 09/25/18 12:10 Blood-Thru Central Line Gram Stain - Final TEST NOT PERFORMED 09/20/18 14:00 Blood-Thru Central Line Blood Culture - Final NO GROWTH AFTER 5 DAYS 09/20/18 17:53 Trachasp Gram Stain - Final 09/20/18 17:53 Trachasp Sputum Culture - Final Yeast Species 09/20/18 17:53 Urine,Orellana Urine Culture - Final No Growth (<1,000 CFU/ML) 09/15/18 15:35 Blood-Thru Central Line Blood Culture - Final NO GROWTH AFTER 5 DAYS 09/15/18 15:35 Blood-Thru Central Line Gram Stain - Final TEST NOT PERFORMED 09/15/18 15:25 Blood-Thru Central Line Blood Culture - Final NO GROWTH AFTER 5 DAYS 09/15/18 15:25 Blood-Thru Central Line Gram Stain - Final TEST NOT PERFORMED 09/08/18 11:49 Blood-Venous Blood Culture - Final NO GROWTH AFTER 5 DAYS 09/08/18 11:49 Blood-Venous Gram Stain - Final TEST NOT PERFORMED 09/08/18 11:49 Blood-Venous Blood Culture - Final NO GROWTH AFTER 5 DAYS 09/08/18 11:49 Blood-Venous Gram Stain - Final TEST NOT PERFORMED 09/07/18 Unknown Blood-Thru Central Line Blood Culture - Final NO GROWTH AFTER 5 DAYS 09/07/18 Unknown Blood-Thru Central Line Gram Stain - Final TEST NOT PERFORMED 09/07/18 Unknown Blood-Thru Central Line Blood Culture - Final NO GROWTH AFTER 5 DAYS 09/07/18 Unknown Blood-Thru Central Line Gram Stain - Final TEST NOT PERFORMED 09/07/18 09:07 Trachasp Gram Stain - Final 09/07/18 09:07 Trachasp Sputum Culture - Final Yeast Species 09/04/18 11:25 Naris MRSA Culture (Admit) - Final MRSA NOT DETECTED Assessment and Plan (1) Acute respiratory failure with hypoxemia Status: Acute (2) Anemia Status: Acute (3) Breast CA Status: Acute (4) Tumor lysis syndrome Status: Acute (5) Thrombocytopenia Status: Acute (6) DVT of lower extremity, bilateral Status: Chronic (7) Adnexal mass Status: Acute - Assessment and Plan (Free Text) Assessment: A/P- 58 year old female with stage 4 metastatic inflamamtory breast cancer with also 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 reamins unresponsive. remains on the vent afebrile today so far CXR report noted continues to have anemia and thrombocytopenia blood cx- neg x 10 trach asp cx- yeast stool c.diff- negative repeat UA- negative repeat urine cx- neg PLan- completed 14 days of empiric vanco. vanco resumed again since she is on the vent still and lung function not im proving and she is immunosuppressed to cover for HAP empirically. keep vanco trough <15. day #3 advise to continue IV meropnem for broad spectrum gram negative coverage.day #28 continue with IV diflucan day #28 above abx and antifungal being continues sine pt. is immunecompromised and is on vent.( they are empiric). prognosis poor. critical care time spent 30 minutes.
--- NOTE | 2018-10-08 15:53 | PN ---
DATE: 10/08/2018 SUBJECTIVE: The patient in ICU bed 431. Time spent 35 minutes. The patient is seen and evaluated at the bedside. Past medical, surgical, family, social history reviewed. A 58-year-old female with malignant mixed mullerian tumor, malignant pleural effusion right, malignant ascites, peritoneal carcinomatosis, status post transfusion multiple units of blood products. Overnight, on AC/PRVC rate 16, tidal volume 380, FIO2 of 60%, PEEP of 5, observed rate 17, observed tidal volume 410, minute ventilation 6.1 liters, oxygen saturation 95%, end-tidal CO2 of 46. No sedation. Remains lethargic but arousable. Does not follow commands appropriate. PHYSICAL EXAMINATION: VITAL SIGNS: Temperature 99.1, heart rate 119 to 121, blood pressure 94/51, mean arterial pressure 65. Intake 2943, output 750, positive balance 1743. HEAD, EYES, EARS, NOSE AND THROAT: Pupils are reactive. Conjunctivae pale. Sclerae white. Oral mucosa moist. Tracheostomy site with minimal soaking. CHEST: Bilateral breath sounds diminished intensity. HEART: Rhythm regular. S1, S2 normal. No audible murmur. ABDOMEN: Distended. Bowel sounds present. No tenderness. EXTREMITIES: Upper extremity with dependent edema. Lower extremity dependent edema 2+ with shiny warm skin. DP palpable, reduced intensity. NEUROLOGIC: Remains lethargic. CURRENT MEDICATIONS: Vancomycin 750 mg every 12 hours, Protonix 40 IV daily, meropenem 1 g IV every 8 hours, fluconazole 100 mg daily, Zyloprim 100 mg on hold. LABORATORY DATA: WBC 8.3, hemoglobin 10.2, hematocrit 31.2, platelet count 115. PT 14.9, INR 1.3, PTT 26.7. ABG: pH 7.35, pCO2 of 44, pO2 of 73, saturation 97.4 on AC 16/380/60%, PEEP of 5. SMA-7: Sodium of 147, potassium 4.2, chloride of 112, CO2 of 26. Blood urea: Nitrogen 62, creatinine 0.9. Random glucose 113, calcium 6.9, albumin 2.5. Urinalysis, 09/20/2018, RBC 29, WBC 17. Vancomycin trough level 12.6. Serology: C. diff not detected. Microbiology: Urine culture positive for yeast. Blood culture no growth reported, drawn on 10/05/2018 x2 sets. Chest x-ray, tracheostomy tube in place. Left Port-A-Cath in place. Left moderate pleural effusion stable. No pneumothorax. Right pleural effusion also stable. 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 Neuro: Very lethargic but arousable and no sedation. Pulmonary: Vent-dependent, hypoxic respiratory failure with bilateral pleural effusion, status post tracheostomy. Not a winnable candidate secondary to accumulating pleural effusion, recurring ascites and poor mental status. Cardiovascular: Hemodynamically stable, off pressors, maintaining mean arterial pressure of 65 and above. Hematology. 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 Renal: With oliguria, status post Lasix and albumin, anasarca, secondary to reduced oncotic pressure from hypoalbuminemia. Continue feeding as tolerated. No acute issues. Gastrointestinal: N.p.o. Pulmocare, free water 200 mL every 6 hours hypernatremia, improved. Infectious Disease: Multilobar pneumonia, urinary tract infection, on meropenem, fluconazole and vancomycin. Vancomycin trough level is in acceptable range. Deep vein thrombosis prophylaxis: Sequential compression devices in place. Anticoagulation on hold secondary to bleeding. Gastrointestinal prophylaxis with Protonix. Orellana in place for adequate intake/output. Code status full. Prognosis remains guarded. The right femoral line removed. Surgery consult requested for central line placement. Javid Das MD
--- NOTE | 2018-10-08 17:40 | CP.PCM.PN ---
Subjective - Date & Time of Evaluation Date of Evaluation: 10/08/18 Time of Evaluation: 15:00 - Subjective Subjective: SEEN ON RENAL F/U IN ICU REMAINS INTUBATED .. UNRESPONSIVE ALL PREVIOUW EMR REVIEWED LABS REV PRE RENAL AZOTEMIA STABLE HYPER NATREMIA BETTER Objective - Vital Signs/Intake and Output Vital Signs (last 24 hours): Temp Pulse Resp BP Pulse Ox 98.8 F 117 H 18 96/52 L 94 L 10/08/18 16:00 10/08/18 16:00 10/08/18 16:00 10/08/18 16:00 10/08/18 16:00 Intake and Output: 10/08/18 10/08/18 06:59 18:59 Intake Total 949 1100 Output Total 500 Balance 449 1100 - Medications Medications: Current Medications Allopurinol (Zyloprim) 100 mg NG DAILY [facility] Last Admin: 09/27/18 08:16 Dose: 100 mg Meropenem 1 gm/ Sodium (Chloride) 100 mls @ 100 mls/hr IVPB Q8 [facility]; Protocol Last Admin: 10/08/18 16:16 Dose: 100 mls/hr Fluconazole (Diflucan Iv 100 Mg/50 Ml Ns) 50 mls @ 50 mls/hr IVPB DAILY [facility]; Protocol Last Admin: 10/08/18 12:15 Dose: 50 mls/hr Vancomycin HCl 750 mg/ Sodium (Chloride) 250 mls @ 166.667 mls/hr IVPB Q12 [facility]; Protocol Last Admin: 10/08/18 09:20 Dose: 166.667 mls/hr Loratadine (Claritin) 10 mg PO DAILY [facility] Last Admin: 10/08/18 08:12 Dose: 10 mg Pantoprazole Sodium (Protonix Inj) 40 mg IVP DAILY [facility] Last Admin: 10/08/18 08:12 Dose: 40 mg - Labs Labs: 10/07/18 06:00 10/08/18 06:45 PT 14.9 Seconds (9.8-13.1) H 10/03/18 04:40 INR 1.3 10/03/18 04:40 APTT 26.7 Seconds (25.6-37.1) 10/03/18 04:40 Assessment and Plan - Assessment and Plan (Free Text) Assessment: C/O CURRENT CARE DISSOLVE ALL IV MEDS IN D5W COMPATIBLE
[2018-10-09] MEDS: Meropenem 1 GM in Sodium Chloride 0.9% 100 ML IVPB SCH ×3 (01:25→17:44)
[2018-10-09 03:34] LABS: ABG ALLEN TEST YES; ARTERIAL BLOOD GAS HCO3 24.9 mmol/L (21-28); ARTERIAL BLOOD GAS HEMOGLOBIN 11.3 g/dL (11.7-17.4); ARTERIAL BLOOD GAS O2 CAPACITY 15.4 mL/dL (16-24); ARTERIAL BLOOD GAS O2 CONTENT 15.1 ML/dL (15-23); ARTERIAL BLOOD GAS O2 SAT 98.2 % (95-98); ARTERIAL BLOOD GAS PCO2 57 mm/Hg (35-45); ARTERIAL BLOOD GAS PH 7.29 (7.35-7.45); ARTERIAL BLOOD GAS PO2 81 mm/Hg (80-100); ARTERIAL BLOOD GAS TCO2 29.1 mmol/L (22-28)
[2018-10-09 06:22] LABS: HEMOGLOBIN 8.8 g/dL (12.0-16.0); MEAN CORPUSCULAR HEMOGLOBIN 30.2 pg (27.0-31.0); MEAN CORPUSCULAR HGB CONC 32.5 g/dL (33.0-37.0); RBC 2.9 Mil/uL (3.80-5.20); RED CELL DISTRIBUTION WIDTH 16.7 % (11.5-14.5); WHITE BLOOD COUNT 10.6 K/uL (4.8-10.8)
[2018-10-09 06:36] LABS: ALB/GLOB RATIO 0.7 (1.0-2.1); ALBUMIN 1.4 g/dL (3.5-5.0); ALT/SGPT 25 U/L (9-52); AST/SGOT 16 U/L (14-36); BLOOD UREA NITROGEN 70 mg/dl (7-17); CALCIUM 6.8 mg/dL (8.4-10.2); GFR NON-AFRICAN AMERICAN 57
--- NOTE | 2018-10-09 07:52 | CP.CCUPN ---
CCU Subjective - Physician Review Subjective (Free Text): 10/02/18 07:30 The patient was Seen and examined by me at the bedside, Medical records reviewed and Management issues were discussed and formulated with the house staff. Events reviewed Patient is 58 years old female with past medical history of anemia, anxiety, CHF, deep venous thrombosis, peripheral edema, pulmonary embolism and stage IV advanced metastatic breast cancer Status post chemotherapy 2 days ago Who initially presented to the emergency room on 09/03 for evaluation of intermittent chest pain and shortness of breath for the past 2 days In the emergency room patient stated that this chest pain resolved and breathing got better On exam she was comfortable and was admitted to the medical service Transfused 1 unit of packed red blood cell for hemoglobin of 6.9 also of note Patient recently underwent paracentesis 09/04 Patient was transferred to the intensive care unit after SESSIONS CLERK was called for severe respiratory distress and hypoxemia and patient found to be confused and respiratory distress BP was stable but she was tachycardic, tachypneic and saturating 88% on non- rebreathing mask she is to receive a stat dose of IV Lasix and transferred to the intensive care unit Upon admitting to the to the ICU she was emergently intubated by anesthesia and mechanically ventilated Patient self extubated and she was in distress and she was reintubated ICU coursed for failure to extubate, and Patient S/P trach last week Currently patient is intubated via Tracheostomy, mechanically ventilated,Off all sedation On PRVC, TV 450, RR 20, FIO2 60% PEEP 5 She looks comfortable and in no distress Sometimes tachypnic, requiring PRN Ativan Improved oxygenation blood pressure is better, Off Levophed Sepsis controlled, Afebrile today, Tmx 99.9 + Tachycardia, electrolyte including potassium and magnesium was supplemented + Fluid overload on exam, PRN Furosemide (Lasix) Most recent Blood 10/05 negative, and Most recent urine 10/05 C/S + yeast This morning labs revealed No Leucocytosis, Stable renal function BUN/Cr 70/1.0 and Plat count 88K, Hypernatremia improving Na 146 Discussed with the mother at the bedside patient condition, poor prognosis, treatment plans and alternative The mother is determined that she wants everything to be done for the patient and she is in agreement with pursuing PEG and possible LTAC placement CCU Objective - Vital Signs / Intake & Output Vital Signs (Last 4 hours): Vital Signs Temp Pulse Resp BP Pulse Ox 10/09/18 06:00 98.2 F 113 H 119 H 91/48 L 95 10/09/18 04:00 98.4 F 109 H 17 93/54 L 95 Intake and Output (Last 8hrs): Intake & Output 10/08/18 10/09/18 10/09/18 22:59 06:59 14:59 Intake Total 630 580 Output Total 730 375 Balance -100 205 Weight 194 lb Intake: Intake, Piggyback 350 100 Tube Feeding 280 280 Free Water Flush 200 Output: Gastric Amount 30 Stomach 30 Urine 100 175 Urethral (Orellana) 100 175 Stool 600 200 - Physical Exam Head: Positive for: Atraumatic, Normocephalic Pupils: Positive for: PERRL Extroacular Muscles: Positive for: EOMI Conjunctiva: Negative for: Injected, Icteric Ears: Positive for: Normal Mouth: Positive for: Moist Mucous Membranes Nose (Internal): Positive for: Normal Inspection Neck: Positive for: Normal Range of Motion, Trachea Midline. Negative for: Meningeal Signs, MIDLINE TENDERNESS, Paraspinal Tenderness, JVD, Lymphadenopathy, Bruit, Other Respiratory/Chest: Positive for: Good Air Exchange, Rales, Retracting, Rhonchi. Negative for: Respiratory Distress, Accessory Muscle Use, Wheezes, Tachypneic Cardiovascular: Positive for: Regular Rate and Rhythm, Normal S1, S2, Peripheal Pulses Present. Negative for: Murmurs, Irregular Rhythm, Tachycardic, Bradycardic Abdomen: Positive for: Normal Bowel Sounds. Negative for: Tenderness Breast/Axillary: Positive for: Other (fungating necrotic mass to Right Breast) Upper Extremity: Positive for: Edema, NORMAL PULSES. Negative for: Normal Inspection, Cyanosis Lower Extremity: Positive for: Edema, NORMAL PULSES. Negative for: Normal Inspection Neurological: Positive for: Other (on ventilator, opens eyes to verbal stimuli) Psychiatric: Positive for: Other (Sedated and orally intubated). Negative for: Alert - Medications Active Medications: Active Medications Generic Name Dose Route Start Last Admin Trade Name Freq PRN Reason Stop Dose Admin Allopurinol 100 mg 09/14/18 09:00 09/27/18 08:16 Zyloprim NG 100 mg DAILY GLADIS Administration Meropenem 1 gm/ Sodium 100 mls @ 100 mls/hr 09/18/18 12:45 10/09/18 01:25 Chloride IVPB 100 mls/hr Q8 GLADIS Administration Protocol Fluconazole 50 mls @ 50 mls/hr 10/06/18 15:45 10/08/18 12:15 Diflucan Iv 100 Mg/50 Ml Ns IVPB 50 mls/hr DAILY GLADIS Administration Protocol Vancomycin HCl 750 mg/ Sodium 250 mls @ 166.667 mls/hr 10/06/18 21:00 10/08/18 21:05 Chloride IVPB 166.667 mls/hr Q12 GLADIS Administration Protocol Loratadine 10 mg 09/29/18 12:15 10/08/18 08:12 Claritin PO 10 mg DAILY GLADIS Administration - Patient Studies Lab Studies: Microbiology Studies 10/05/18 06:30 Blood Culture - Preliminary Blood NO GROWTH AFTER 4 DAYS 10/05/18 06:15 Blood Culture - Preliminary Blood NO GROWTH AFTER 4 DAYS Lab Studies 10/09/18 10/09/18 10/09/18 Range/Units 05:40 05:40 05:40 WBC 10.6 (4.8-10.8) K/uL RBC 2.90 L (3.80-5.20) Mil/uL Hgb 8.8 L (12.0-16.0) g/dL Hct 27.0 L (34.0-47.0) % MCV 93.0 (81.0-99.0) fl MCH 30.2 (27.0-31.0) pg MCHC 32.5 L (33.0-37.0) g/dL RDW 16.7 H (11.5-14.5) % Plt Count 88 L D (130-400) K/uL pCO2 (35-45) mm/Hg pO2 (80-100) mm/Hg HCO3 (21-28) mmol/L ABG pH (7.35-7.45) ABG Total CO2 (22-28) mmol/L ABG O2 Saturation (95-98) % ABG O2 Content (15-23) ML/dL ABG Base Excess (-2.0-3.0) mmol/L ABG Hemoglobin (11.7-17.4) g/dL ABG Carboxyhemoglobin (0.5-1.5) % POC ABG HHb (Measured) (0.0-5.0) % ABG Methemoglobin (0.0-3.0) % ABG O2 Capacity (16-24) mL/dL Frederic Test A-a O2 Difference mm/Hg Hgb O2 Saturation (95.0-98.0) % Vent Mode Mechanical Rate FiO2 % Tidal Volume PEEP Sodium 146 (132-148) mmol/l Potassium 4.2 (3.6-5.0) MMOL/L Chloride 112 H (98-107) mmol/L Carbon Dioxide 25 (22-30) mmol/L Anion Gap 13 (10-20) BUN 70 H (7-17) mg/dl Creatinine 1.0 (0.7-1.2) mg/dl Est GFR ( Amer) > 60 Est GFR (Non-Af Amer) 57 Random Glucose 104 (65-105) mg/dL Calcium 6.8 L (8.4-10.2) mg/dL Total Bilirubin 0.4 (0.2-1.3) mg/dl AST 16 (14-36) U/L ALT 25 (9-52) U/L Alkaline Phosphatase 34 L D (38-126) U/L Total Protein 3.4 L (6.3-8.2) G/DL Albumin 1.4 L D (3.5-5.0) g/dL Globulin 2.0 L (2.2-3.9) gm/dL Albumin/Globulin Ratio 0.7 L (1.0-2.1) Vancomycin Trough 25.8 H (5.0-10.0) ug/mL 10/09/18 Range/Units 03:09 WBC (4.8-10.8) K/uL RBC (3.80-5.20) Mil/uL Hgb (12.0-16.0) g/dL Hct (34.0-47.0) % MCV (81.0-99.0) fl MCH (27.0-31.0) pg MCHC (33.0-37.0) g/dL RDW (11.5-14.5) % Plt Count (130-400) K/uL pCO2 57 H (35-45) mm/Hg pO2 81 (80-100) mm/Hg HCO3 24.9 (21-28) mmol/L ABG pH 7.29 L (7.35-7.45) ABG Total CO2 29.1 H (22-28) mmol/L ABG O2 Saturation 98.2 H (95-98) % ABG O2 Content 15.1 (15-23) ML/dL ABG Base Excess 0 (-2.0-3.0) mmol/L ABG Hemoglobin 11.3 L (11.7-17.4) g/dL ABG Carboxyhemoglobin 2.4 H (0.5-1.5) % POC ABG HHb (Measured) 1.7 (0.0-5.0) % ABG Methemoglobin 1.5 (0.0-3.0) % ABG O2 Capacity 15.4 L (16-24) mL/dL Frederic Test Yes A-a O2 Difference 276.0 mm/Hg Hgb O2 Saturation 94.4 L (95.0-98.0) % Vent Mode A/c Mechanical Rate 16 FiO2 60.0 % Tidal Volume 380 PEEP 5 Sodium (132-148) mmol/l Potassium (3.6-5.0) MMOL/L Chloride (98-107) mmol/L Carbon Dioxide (22-30) mmol/L Anion Gap (10-20) BUN (7-17) mg/dl Creatinine (0.7-1.2) mg/dl Est GFR ( Amer) Est GFR (Non-Af Amer) Random Glucose (65-105) mg/dL Calcium (8.4-10.2) mg/dL Total Bilirubin (0.2-1.3) mg/dl AST (14-36) U/L ALT (9-52) U/L Alkaline Phosphatase (38-126) U/L Total Protein (6.3-8.2) G/DL Albumin (3.5-5.0) g/dL Globulin (2.2-3.9) gm/dL Albumin/Globulin Ratio (1.0-2.1) Vancomycin Trough (5.0-10.0) ug/mL Laboratory Results - last 24 hr 10/09/18 10/09/18 10/09/18 03:09 05:40 05:40 WBC 10.6 RBC 2.90 L Hgb 8.8 L Hct 27.0 L MCV 93.0 MCH 30.2 MCHC 32.5 L RDW 16.7 H Plt Count 88 L D pCO2 57 H pO2 81 HCO3 24.9 ABG pH 7.29 L ABG Total CO2 29.1 H ABG O2 Saturation 98.2 H ABG O2 Content 15.1 ABG Base Excess 0 ABG Hemoglobin 11.3 L ABG Carboxyhemoglobin 2.4 H POC ABG HHb (Measured) 1.7 ABG Methemoglobin 1.5 ABG O2 Capacity 15.4 L Frederic Test Yes A-a O2 Difference 276.0 Hgb O2 Saturation 94.4 L Vent Mode A/c Mechanical Rate 16 FiO2 60.0 Tidal Volume 380 PEEP 5 Sodium Potassium Chloride Carbon Dioxide Anion Gap BUN Creatinine Est GFR ( Amer) Est GFR (Non-Af Amer) Random Glucose Calcium Total Bilirubin AST ALT Alkaline Phosphatase Total Protein Albumin Globulin Albumin/Globulin Ratio Vancomycin Trough 25.8 H 10/09/18 05:40 WBC RBC Hgb Hct MCV MCH MCHC RDW Plt Count pCO2 pO2 HCO3 ABG pH ABG Total CO2 ABG O2 Saturation ABG O2 Content ABG Base Excess ABG Hemoglobin ABG Carboxyhemoglobin POC ABG HHb (Measured) ABG Methemoglobin ABG O2 Capacity Frederic Test A-a O2 Difference Hgb O2 Saturation Vent Mode Mechanical Rate FiO2 Tidal Volume PEEP Sodium 146 Potassium 4.2 Chloride 112 H Carbon Dioxide 25 Anion Gap 13 BUN 70 H Creatinine 1.0 Est GFR ( Amer) > 60 Est GFR (Non-Af Amer) 57 Random Glucose 104 Calcium 6.8 L Total Bilirubin 0.4 AST 16 ALT 25 Alkaline Phosphatase 34 L D Total Protein 3.4 L Albumin 1.4 L D Globulin 2.0 L Albumin/Globulin Ratio 0.7 L Vancomycin Trough Radiology Impressions: Radiology Impressions Chest X-Ray 10/08/18 06:00 IMPRESSION: Mild increase in subsegmental atelectasis in the right lung. Grossly stable appearance of the moderate left pleural fluid and density in the left lung. Critical Care Progress Note - Nutrition Nutrition: Nutrition Category Date Time Status NPO Diet [DIET] Diets 10/03/18 Breakfast Active Assessment/Plan (1) Severe sepsis Current Visit: Yes Status: Acute Priority: Medium Comment: Continue IV Vancomycin 750 mg IVPB Q12, Fluconazole (Diflucan) 100 Mg IVPB DAILY and Meropenem 1 gm IVBP Q8H (2) Acute respiratory failure with hypoxia Current Visit: Yes Status: Acute Priority: High Comment: Intubated for hypoxemic respiratory failure S/P Tracheostomy strict I&O, Maintian negative fluid balance Continue diuresis as blood pressure permits She is not a candidate for spontaneous breathing since she is not clinically stable and very poor mental status Discussed with the mother at the bedside patient condition, poor prognosis, treatment plans and alternative Will schedule Pt for PEG (3) Congestive heart failure (CHF) Current Visit: Yes Status: Acute Priority: High Comment: Intubated for hypoxemic respiratory failure strict I&O, Maintian negative fluid balance Continue diuresis as blood pressure permits PRN Furosemide (Lasix) (4) DVT of lower extremity, bilateral Current Visit: No Status: Chronic Priority: Medium Comment: Patient with H/O provoked DVT and Pulmonary embolism She was Apixaban (Eliquis) 5 mg PO BID Now off due to bleeding from uterine cancer (5) Pulmonary embolism on left Current Visit: No Status: Chronic Priority: Medium Comment: Patient with H/O provoked DVT and Pulmonary embolism Continue Apixaban (Eliquis) 5 mg PO BID (6) Breast CA Current Visit: Yes Status: Acute Priority: High (7) Anemia Current Visit: Yes Status: Acute Priority: High Comment: Anemia is likely multifactorial from chronic disease and bleeding from uterine cancer Transfuse as needed Hematology oncology consult appreciated - Assessment and Plan (Free Text) Assessment: Code status - full code Critical Care time spent 35 minutes
[2018-10-09] MEDS: Fluconazole IV 100mg/50 ml NS 50 ML IVPB SCH (09:38)
--- NOTE | 2018-10-09 11:58 | RAD ---
Date of service: 10/09/2018 HISTORY: Pt with trach on vent COMPARISON: 10/08/2018. FINDINGS: Stable position of tracheostomy tube. The nasogastric tube terminates in the stomach. The left IJV line terminates at the cavoatrial junction. LUNGS: There are low lung volumes. There is subsegmental atelectasis in the right lower lobe. PLEURA: Persistent small right pleural effusion. No significant interval change in large loculated left pleural effusion with presumable compressive atelectasis of the left lung. No pneumothorax. CARDIOVASCULAR: Stable. OSSEOUS STRUCTURES: Within normal limits for the patient's age. VISUALIZED UPPER ABDOMEN: Normal. OTHER FINDINGS: None. IMPRESSION: No significant interval change. Persistent large loculated left pleural effusion. Stable position of support line and tubes.
--- NOTE | 2018-10-09 14:33 | CP.PCM.PN ---
Subjective - Date & Time of Evaluation Date of Evaluation: 10/09/18 Time of Evaluation: 14:32 - Subjective Subjective: ID Note- Pt. seen and examined today in ICU. remains intubated and unresponsive. Objective - Vital Signs/Intake and Output Vital Signs (last 24 hours): Temp Pulse Resp BP Pulse Ox 98.4 F 113 H 20 85/48 L 97 10/09/18 12:00 10/09/18 13:00 10/09/18 13:00 10/09/18 13:00 10/09/18 13:00 Intake and Output: 10/09/18 10/09/18 06:59 18:59 Intake Total 970 158 Output Total 405 Balance 565 158 - Medications Medications: Current Medications Allopurinol (Zyloprim) 100 mg NG DAILY GLADIS Last Admin: 09/27/18 08:16 Dose: 100 mg Meropenem 1 gm/ Sodium (Chloride) 100 mls @ 100 mls/hr IVPB Q8 GLADIS; Protocol Last Admin: 10/09/18 09:39 Dose: 100 mls/hr Fluconazole (Diflucan Iv 100 Mg/50 Ml Ns) 50 mls @ 50 mls/hr IVPB DAILY GLADIS; Protocol Last Admin: 10/09/18 09:38 Dose: 50 mls/hr Vancomycin HCl 750 mg/ Sodium (Chloride) 250 mls @ 166.667 mls/hr IVPB Q12 GLADIS; Protocol Last Admin: 10/09/18 09:40 Dose: Not Given Norepinephrine Bitartrate 8 mg (/ Dextrose) 258 mls @ 4.84 mls/hr IV .Q24H ONE; Protocol Stop: 10/10/18 09:58 Last Titration: 10/09/18 09:30 Dose: 5 mcg/min, 9.68 mls/hr Loratadine (Claritin) 10 mg PO DAILY GLADIS Last Admin: 10/08/18 08:12 Dose: 10 mg - Labs Labs: - Additional Findings Additional findings: - Constitutional Appears: Chronically Ill Additional comments: on the vent and not responsive - Eye Exam Eye Exam: PERRL - ENT Exam Additional comments: s/p trache - Respiratory Exam Additional comments: On the vent - Cardiovascular Exam Cardiovascular Exam: Tachycardia, +S1, +S2 - GI/Abdominal Exam Additional comments: distended hypoactive BS umbilical region with mass like lesion with denuded skin , no pus + ascites - Extremities Exam Additional comments: b/l 2+ edema in LE and UE - Neurological Exam Additional comments: unresponsive Laboratory Results - last 72 hr 10/06/18 10/07/18 10/07/18 08:20 04:22 06:00 WBC 8.3 RBC 3.38 L Hgb 10.2 L D Hct 31.2 L MCV 92.5 MCH 30.2 MCHC 32.6 L RDW 16.0 H Plt Count 115 L D pCO2 49 H pO2 66 L HCO3 26.2 ABG pH 7.36 ABG Total CO2 29.2 H ABG O2 Saturation 96.6 ABG O2 Content 14.2 L ABG Base Excess 1.7 ABG Hemoglobin 10.8 L ABG Carboxyhemoglobin 1.9 H POC ABG HHb (Measured) 3.3 ABG Methemoglobin 1.6 ABG O2 Capacity 14.7 L Frederic Test Yes A-a O2 Difference 301.0 Hgb O2 Saturation 93.2 L Vent Mode A/c Mechanical Rate 16 FiO2 60.0 Tidal Volume 380 PEEP 5 Sodium Potassium Chloride Carbon Dioxide Anion Gap BUN Creatinine Est GFR ( Amer) Est GFR (Non-Af Amer) Random Glucose Calcium Total Bilirubin AST ALT Alkaline Phosphatase Total Protein Albumin Globulin Albumin/Globulin Ratio Vancomycin Trough Blood Type A POSITIVE Antibody Screen Negative Crossmatch See Detail BBK History Checked Patient has bt 10/07/18 10/08/18 10/08/18 06:00 04:44 06:45 WBC RBC Hgb Hct MCV MCH MCHC RDW Plt Count pCO2 47 H pO2 73 L HCO3 24.8 ABG pH 7.35 ABG Total CO2 27.3 ABG O2 Saturation 97.4 ABG O2 Content 16.0 ABG Base Excess -0.1 ABG Hemoglobin 12.1 ABG Carboxyhemoglobin 2.2 H POC ABG HHb (Measured) 2.5 ABG Methemoglobin 1.4 ABG O2 Capacity 16.4 Frederci Test Yes A-a O2 Difference 296.0 Hgb O2 Saturation 93.9 L Vent Mode A/c Mechanical Rate 16 FiO2 60.0 Tidal Volume 380 PEEP 5 Sodium 148 147 Potassium 3.8 4.2 Chloride 110 H 112 H Carbon Dioxide 27 26 Anion Gap 15 13 BUN 57 H 62 H Creatinine 0.8 0.9 Est GFR ( Amer) > 60 > 60 Est GFR (Non-Af Amer) > 60 > 60 Random Glucose 104 113 H Calcium 7.6 L 6.9 L Total Bilirubin 0.9 AST 27 ALT 33 Alkaline Phosphatase 53 Total Protein 5.4 L Albumin 2.5 L D Globulin 2.8 Albumin/Globulin Ratio 0.9 L Vancomycin Trough Blood Type Antibody Screen Crossmatch BBK History Checked 10/09/18 10/09/18 10/09/18 03:09 05:40 05:40 WBC 10.6 RBC 2.90 L Hgb 8.8 L Hct 27.0 L MCV 93.0 MCH 30.2 MCHC 32.5 L RDW 16.7 H Plt Count 88 L D pCO2 57 H pO2 81 HCO3 24.9 ABG pH 7.29 L ABG Total CO2 29.1 H ABG O2 Saturation 98.2 H ABG O2 Content 15.1 ABG Base Excess 0 ABG Hemoglobin 11.3 L ABG Carboxyhemoglobin 2.4 H POC ABG HHb (Measured) 1.7 ABG Methemoglobin 1.5 ABG O2 Capacity 15.4 L Frederic Test Yes A-a O2 Difference 276.0 Hgb O2 Saturation 94.4 L Vent Mode A/c Mechanical Rate 16 FiO2 60.0 Tidal Volume 380 PEEP 5 Sodium Potassium Chloride Carbon Dioxide Anion Gap BUN Creatinine Est GFR ( Amer) Est GFR (Non-Af Amer) Random Glucose Calcium Total Bilirubin AST ALT Alkaline Phosphatase Total Protein Albumin Globulin Albumin/Globulin Ratio Vancomycin Trough 25.8 H Blood Type Antibody Screen Crossmatch BBK History Checked 10/09/18 05:40 WBC RBC Hgb Hct MCV MCH MCHC RDW Plt Count pCO2 pO2 HCO3 ABG pH ABG Total CO2 ABG O2 Saturation ABG O2 Content ABG Base Excess ABG Hemoglobin ABG Carboxyhemoglobin POC ABG HHb (Measured) ABG Methemoglobin ABG O2 Capacity Frederic Test A-a O2 Difference Hgb O2 Saturation Vent Mode Mechanical Rate FiO2 Tidal Volume PEEP Sodium 146 Potassium 4.2 Chloride 112 H Carbon Dioxide 25 Anion Gap 13 BUN 70 H Creatinine 1.0 Est GFR ( Amer) > 60 Est GFR (Non-Af Amer) 57 Random Glucose 104 Calcium 6.8 L Total Bilirubin 0.4 AST 16 ALT 25 Alkaline Phosphatase 34 L D Total Protein 3.4 L Albumin 1.4 L D Globulin 2.0 L Albumin/Globulin Ratio 0.7 L Vancomycin Trough Blood Type Antibody Screen Crossmatch BBK History Checked Microbiology 10/05/18 06:30 Blood Blood Culture - Preliminary NO GROWTH AFTER 4 DAYS 10/05/18 06:15 Blood Blood Culture - Preliminary NO GROWTH AFTER 4 DAYS 10/05/18 07:10 Urine,Orellana Urine Culture - Final Yeast Species 09/25/18 12:10 Blood-Thru Central Line Blood Culture - Final NO GROWTH AFTER 5 DAYS 09/25/18 12:10 Blood-Thru Central Line Gram Stain - Final TEST NOT PERFORMED 09/20/18 14:00 Blood-Thru Central Line Blood Culture - Final NO GROWTH AFTER 5 DAYS 09/20/18 17:53 Trachasp Gram Stain - Final 09/20/18 17:53 Trachasp Sputum Culture - Final Yeast Species 09/20/18 17:53 Urine,Orellana Urine Culture - Final No Growth (<1,000 CFU/ML) 09/15/18 15:35 Blood-Thru Central Line Blood Culture - Final NO GROWTH AFTER 5 DAYS 09/15/18 15:35 Blood-Thru Central Line Gram Stain - Final TEST NOT PERFORMED 09/15/18 15:25 Blood-Thru Central Line Blood Culture - Final NO GROWTH AFTER 5 DAYS 09/15/18 15:25 Blood-Thru Central Line Gram Stain - Final TEST NOT PERFORMED 09/08/18 11:49 Blood-Venous Blood Culture - Final NO GROWTH AFTER 5 DAYS 09/08/18 11:49 Blood-Venous Gram Stain - Final TEST NOT PERFORMED 09/08/18 11:49 Blood-Venous Blood Culture - Final NO GROWTH AFTER 5 DAYS 09/08/18 11:49 Blood-Venous Gram Stain - Final TEST NOT PERFORMED 09/07/18 Unknown Blood-Thru Central Line Blood Culture - Final NO GROWTH AFTER 5 DAYS 09/07/18 Unknown Blood-Thru Central Line Gram Stain - Final TEST NOT PERFORMED 09/07/18 Unknown Blood-Thru Central Line Blood Culture - Final NO GROWTH AFTER 5 DAYS 09/07/18 Unknown Blood-Thru Central Line Gram Stain - Final TEST NOT PERFORMED 09/07/18 09:07 Trachasp Gram Stain - Final 09/07/18 09:07 Trachasp Sputum Culture - Final Yeast Species 09/04/18 11:25 Naris MRSA Culture (Admit) - Final MRSA NOT DETECTED Accession No. : [id number] Patient Name / ID : RYLEE ONEIL / [id number] Exam Date : 10/09/2018 04:23:42 ( Approved ) Study Comment : Sex / Age : F / 58Y Creator : Krystle Gage MD Dictator : Krystle Gage MD Boats Renter : Supervisor Color Paste Mixing : Krystle Gage MD Approver2 : Report Date : 10/09/2018 11:52:55 My Comment : Date of service: 10/09/2018 HISTORY: Pt with trach on vent COMPARISON: 10/08/2018. FINDINGS: Stable position of tracheostomy tube. The nasogastric tube terminates in the stomach. The left IJV line terminates at the cavoatrial junction. LUNGS: There are low lung volumes. There is subsegmental atelectasis in the right lower lobe. PLEURA: Persistent small right pleural effusion. No significant interval change in large loculated left pleural effusion with presumable compressive atelectasis of the left lung. No pneumothorax. CARDIOVASCULAR: Stable. OSSEOUS STRUCTURES: Within normal limits for the patient's age. VISUALIZED UPPER ABDOMEN: Normal. OTHER FINDINGS: None. IMPRESSION: No significant interval change. Persistent large loculated left pleural effusion. Stable position of support line and tubes. 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 remains unresponsive. remains on the vent afebrile today so far CXR report left side large loculated effusion. continues to have anemia and thrombocytopenia blood cx- neg x 10 trach asp cx- yeast stool c.diff- negative repeat UA- negative repeat urine cx- yeast PLan- completed 14 days of empiric vanco. vanco resumed again since she is on the vent still and lung function not improving and she is immunosuppressed to cover for HAP empirically. keep vanco trough <15. day #4 but hold vanco today as trough was high. advise to continue IV meropnem for broad spectrum gram negative coverage.day #29 continue with IV diflucan day #29 above abx and antifungal being continues sine pt. is immunecompromised and is on vent.( they are empiric). prognosis poor. critical care time spent 30 minutes.
--- NOTE | 2018-10-09 15:38 | CP.PCM.PN ---
Subjective - Date & Time of Evaluation Date of Evaluation: 10/09/18 Time of Evaluation: 15:00 - Subjective Subjective: Examined patient, mother at bedside. Objective - Vital Signs/Intake and Output Vital Signs (last 24 hours): Temp Pulse Resp BP Pulse Ox 98.4 F 113 H 20 85/48 L 97 10/09/18 12:00 10/09/18 13:00 10/09/18 13:00 10/09/18 13:00 10/09/18 13:00 Intake and Output: 10/09/18 10/09/18 06:59 18:59 Intake Total 970 158 Output Total 405 Balance 565 158 - Medications Medications: Current Medications Allopurinol (Zyloprim) 100 mg NG DAILY GLADIS Last Admin: 09/27/18 08:16 Dose: 100 mg Meropenem 1 gm/ Sodium (Chloride) 100 mls @ 100 mls/hr IVPB Q8 GLADIS; Protocol Last Admin: 10/09/18 09:39 Dose: 100 mls/hr Fluconazole (Diflucan Iv 100 Mg/50 Ml Ns) 50 mls @ 50 mls/hr IVPB DAILY GLADIS; Protocol Last Admin: 10/09/18 09:38 Dose: 50 mls/hr Vancomycin HCl 750 mg/ Sodium (Chloride) 250 mls @ 166.667 mls/hr IVPB Q12 GLADIS; Protocol Last Admin: 10/09/18 09:40 Dose: Not Given Norepinephrine Bitartrate 8 mg (/ Dextrose) 258 mls @ 4.84 mls/hr IV .Q24H ONE; Protocol Stop: 10/10/18 09:58 Last Titration: 10/09/18 09:30 Dose: 5 mcg/min, 9.68 mls/hr Loratadine (Claritin) 10 mg PO DAILY GLADIS Last Admin: 10/08/18 08:12 Dose: 10 mg - Labs Labs: 10/09/18 05:40 10/09/18 05:40 PT 14.9 Seconds (9.8-13.1) H 10/03/18 04:40 INR 1.3 10/03/18 04:40 APTT 26.7 Seconds (25.6-37.1) 10/03/18 04:40 - Constitutional Appears: In Acute Distress, Chronically Ill - Head Exam Head Exam: ATRAUMATIC, NORMAL INSPECTION, NORMOCEPHALIC - Eye Exam Eye Exam: Normal appearance - ENT Exam ENT Exam: Mucous Membranes Moist - Respiratory Exam Respiratory Exam: Decreased Breath Sounds - Cardiovascular Exam Cardiovascular Exam: REGULAR RHYTHM - GI/Abdominal Exam GI & Abdominal Exam: Normal Bowel Sounds - Rectal Exam Rectal Exam: Deferred - Extremities Exam Additional comments: upper and lower extremity edema - Neurological Exam Additional comments: patient not awake or alert - Skin Skin Exam: Dry, Pallor, Warm Assessment and Plan - Assessment and Plan (Free Text) Assessment: Palliative Care Goals of Care: No change, mother is still requesting full treatment. Mom verbalizing understanding of patient's condition and says that she is still "praying" Code Status: Full Code, at this time, mother is requesting that daughter remain a full code Impression stage IV breast ca Acute respiratory Failure Decreased Mobility (bed bound) Goals of Care Needed Suggestion Reposition q2h mouth care continued goals of care discussions with family Palliative Care will remain on board as needed ext [id number] Time spent with patient 30 min
[2018-10-09] MEDS ORDERED: Albumin Human 25% (12.5 gm/50 ml) IV ONE (18:18)
[2018-10-10] MEDS: Meropenem 1 GM in Sodium Chloride 0.9% 100 ML IVPB SCH ×3 (00:02→17:48)
[2018-10-10 05:17] LABS: BLOOD UREA NITROGEN 75 mg/dl (7-17); CALCIUM 7.7 mg/dL (8.4-10.2); GFR NON-AFRICAN AMERICAN 51
[2018-10-10 05:25] LABS: HEMOGLOBIN 10.1 g/dL (12.0-16.0); MEAN CELL VOLUME 91.2 fl (81.0-99.0); MEAN CORPUSCULAR HEMOGLOBIN 30.2 pg (27.0-31.0); MEAN CORPUSCULAR HGB CONC 33.1 g/dL (33.0-37.0); RBC 3.36 Mil/uL (3.80-5.20); RED CELL DISTRIBUTION WIDTH 16.4 % (11.5-14.5); WHITE BLOOD COUNT 12.7 K/uL (4.8-10.8)
[2018-10-10 06:19] LABS: ABG ALLEN TEST YES; ARTERIAL BLOOD GAS HCO3 27.2 mmol/L (21-28); ARTERIAL BLOOD GAS HEMOGLOBIN 10.4 g/dL (11.7-17.4); ARTERIAL BLOOD GAS O2 CAPACITY 14.3 mL/dL (16-24); ARTERIAL BLOOD GAS O2 CONTENT 14.1 ML/dL (15-23); ARTERIAL BLOOD GAS O2 SAT 98.4 % (95-98); ARTERIAL BLOOD GAS PCO2 39 mm/Hg (35-45); ARTERIAL BLOOD GAS PH 7.45 (7.35-7.45); ARTERIAL BLOOD GAS PO2 80 mm/Hg (80-100); ARTERIAL BLOOD GAS TCO2 28.3 mmol/L (22-28)
--- NOTE | 2018-10-10 08:02 | RAD ---
Date of service: 10/10/2018 HISTORY: New trach, vented. COMPARISON: Portable chest 10/09/2018 4:24 a.m.. FINDINGS: LUNGS: Tracheostomy tube and left MediPort unchanged in position. Nasogastric tube unchanged as well. There is no interval change in prominent left pleural effusion with underlying infiltrate not excluded once again. Limited patchy density seen the right base and minimal right pleural effusion is unchanged. No pneumothorax bilaterally. CARDIOVASCULAR: No aortic atherosclerotic calcification present. Normal cardiac size. No pulmonary vascular congestion. OSSEOUS STRUCTURES: No significant abnormalities. VISUALIZED UPPER ABDOMEN: Normal. OTHER FINDINGS: None. IMPRESSION: No interval change in prominent left pleural effusion with underlying airspace disease not excluded. Limited patchy density right base unchanged as well as trace right pleural effusion.
[2018-10-10] MEDS: Fluconazole IV 100mg/50 ml NS 50 ML IVPB SCH (08:45)
[2018-10-10] MEDS ORDERED: Albumin Human 25% (12.5 gm/50 ml) IV ONE (11:30)
--- NOTE | 2018-10-10 11:51 | CP.PCM.PN ---
Subjective - Date & Time of Evaluation Date of Evaluation: 10/04/18 Time of Evaluation: 17:15 - Subjective Subjective: Seen and examined at the bed side. Patient continue to decline. Anasarca, continue to be intubated and unresponsive. NOK refused DNR/DNI and end of lefe care. Unstable to discharge as patient is on Pressors, and will need G-Tube to send her even to [facility]. Patient is MOF, Septic and Cardiogenic shock with Severe Cardiomyopathy, Anemia, Thrombo-cytopenia, Active bleeding, Stage IV Malignancy and extensive rashes. Objective - Vital Signs/Intake and Output Vital Signs (last 24 hours): Temp Pulse Resp BP Pulse Ox 98.1 F 104 H 20 112/68 99 10/10/18 11:00 10/10/18 11:00 10/10/18 11:00 10/10/18 11:00 10/10/18 11:00 Intake and Output: 10/10/18 10/10/18 06:59 18:59 Intake Total 1055 558 Output Total 310 Balance 745 558 - Medications Medications: Current Medications Allopurinol (Zyloprim) 100 mg NG DAILY GLADIS Last Admin: 09/27/18 08:16 Dose: 100 mg Furosemide (Lasix) 20 mg IVP ONCE ONE Stop: 10/11/18 11:14 Meropenem 1 gm/ Sodium (Chloride) 100 mls @ 100 mls/hr IVPB Q8 GLADIS; Protocol Last Admin: 10/10/18 08:45 Dose: 100 mls/hr Fluconazole (Diflucan Iv 100 Mg/50 Ml Ns) 50 mls @ 50 mls/hr IVPB DAILY GLADIS; Protocol Last Admin: 10/10/18 08:45 Dose: 50 mls/hr Loratadine (Claritin) 10 mg PO DAILY GLADIS Last Admin: 10/10/18 08:44 Dose: 10 mg - Labs Labs: 10/10/18 04:41 10/10/18 04:41 PT 14.9 Seconds (9.8-13.1) H 10/03/18 04:40 INR 1.3 10/03/18 04:40 APTT 26.7 Seconds (25.6-37.1) 10/03/18 04:40 Assessment and Plan (1) Acute respiratory failure with hypoxemia Status: Acute (2) Ascites, malignant Status: Acute (3) Congestive heart failure (CHF) Status: Acute (4) Stage IV breast cancer in female Status: Acute (5) Severe anemia Status: Resolved (6) DVT of lower extremity, bilateral Status: Chronic (7) Thrombocytopenia Status: Resolved - Assessment and Plan (Free Text) Plan: C/W Current Care
--- NOTE | 2018-10-10 11:52 | CP.PCM.PN ---
Subjective - Date & Time of Evaluation Date of Evaluation: 10/06/18 Time of Evaluation: 17:10 - Subjective Subjective: Seen and examined at the bed side. Patient continue to decline. Anasarca, continue to be intubated and unresponsive. NOK refused DNR/DNI and end of lefe care. Unstable to discharge as patient is on Pressors, and will need G-Tube to send her even to [facility]. Patient is MOF, Septic and Cardiogenic shock with Severe Cardiomyopathy, Anemia, Thrombo-cytopenia, Active bleeding, Stage IV Malignancy and extensive rashes. Objective - Vital Signs/Intake and Output Vital Signs (last 24 hours): Temp Pulse Resp BP Pulse Ox 98.1 F 104 H 20 112/68 99 10/10/18 11:00 10/10/18 11:00 10/10/18 11:00 10/10/18 11:00 10/10/18 11:00 Intake and Output: 10/10/18 10/10/18 06:59 18:59 Intake Total 1055 558 Output Total 310 Balance 745 558 - Medications Medications: Current Medications Allopurinol (Zyloprim) 100 mg NG DAILY GLADIS Last Admin: 09/27/18 08:16 Dose: 100 mg Furosemide (Lasix) 20 mg IVP ONCE ONE Stop: 10/11/18 11:14 Meropenem 1 gm/ Sodium (Chloride) 100 mls @ 100 mls/hr IVPB Q8 GLADIS; Protocol Last Admin: 10/10/18 08:45 Dose: 100 mls/hr Fluconazole (Diflucan Iv 100 Mg/50 Ml Ns) 50 mls @ 50 mls/hr IVPB DAILY GLADIS; Protocol Last Admin: 10/10/18 08:45 Dose: 50 mls/hr Loratadine (Claritin) 10 mg PO DAILY GLADIS Last Admin: 10/10/18 08:44 Dose: 10 mg - Labs Labs: 10/10/18 04:41 10/10/18 04:41 PT 14.9 Seconds (9.8-13.1) H 10/03/18 04:40 INR 1.3 10/03/18 04:40 APTT 26.7 Seconds (25.6-37.1) 10/03/18 04:40 Assessment and Plan (1) Acute respiratory failure with hypoxemia Status: Acute (2) Ascites, malignant Status: Acute (3) Congestive heart failure (CHF) Status: Acute (4) Stage IV breast cancer in female Status: Acute (5) Severe anemia Status: Resolved (6) DVT of lower extremity, bilateral Status: Chronic (7) Thrombocytopenia Status: Resolved
--- NOTE | 2018-10-10 11:53 | CP.PCM.PN ---
Subjective - Date & Time of Evaluation Date of Evaluation: 10/07/18 Time of Evaluation: 18:25 - Subjective Subjective: Seen and examined at the bed side. Patient continue to decline. Anasarca, continue to be intubated and unresponsive. NOK refused DNR/DNI and end of lefe care. Unstable to discharge as patient is on Pressors, and will need G-Tube to send her even to [facility]. Patient is MOF, Septic and Cardiogenic shock with Severe Cardiomyopathy, Anemia, Thrombo-cytopenia, Active bleeding, Stage IV Malignancy and extensive rashes. Objective - Vital Signs/Intake and Output Vital Signs (last 24 hours): Temp Pulse Resp BP Pulse Ox 98.1 F 104 H 20 112/68 99 10/10/18 11:00 10/10/18 11:00 10/10/18 11:00 10/10/18 11:00 10/10/18 11:00 Intake and Output: 10/10/18 10/10/18 06:59 18:59 Intake Total 1055 558 Output Total 310 Balance 745 558 - Medications Medications: Current Medications Allopurinol (Zyloprim) 100 mg NG DAILY GLADIS Last Admin: 09/27/18 08:16 Dose: 100 mg Furosemide (Lasix) 20 mg IVP ONCE ONE Stop: 10/11/18 11:14 Meropenem 1 gm/ Sodium (Chloride) 100 mls @ 100 mls/hr IVPB Q8 GLADIS; Protocol Last Admin: 10/10/18 08:45 Dose: 100 mls/hr Fluconazole (Diflucan Iv 100 Mg/50 Ml Ns) 50 mls @ 50 mls/hr IVPB DAILY GLADIS; Protocol Last Admin: 10/10/18 08:45 Dose: 50 mls/hr Loratadine (Claritin) 10 mg PO DAILY GLADIS Last Admin: 10/10/18 08:44 Dose: 10 mg - Labs Labs: 10/10/18 04:41 10/10/18 04:41 PT 14.9 Seconds (9.8-13.1) H 10/03/18 04:40 INR 1.3 10/03/18 04:40 APTT 26.7 Seconds (25.6-37.1) 10/03/18 04:40 Assessment and Plan (1) Acute respiratory failure with hypoxemia Status: Acute (2) Ascites, malignant Status: Acute (3) Congestive heart failure (CHF) Status: Acute (4) Stage IV breast cancer in female Status: Acute (5) Severe anemia Status: Resolved (6) DVT of lower extremity, bilateral Status: Chronic (7) Thrombocytopenia Status: Resolved - Assessment and Plan (Free Text) Plan: Continue current Care
--- NOTE | 2018-10-10 12:08 | CP.CCUPN ---
CCU Subjective - Physician Review Subjective (Free Text): 10/10/18 11:12 The patient was Seen and examined by me at the bedside, Medical records reviewed and Management issues were discussed and formulated with the house staff. Events reviewed Patient is 58 years old female with past medical history of anemia, anxiety, CHF, deep venous thrombosis, peripheral edema, pulmonary embolism and stage IV advanced metastatic breast cancer Status post chemotherapy 2 days ago Who initially presented to the emergency room on 09/03 for evaluation of intermittent chest pain and shortness of breath for the past 2 days In the emergency room patient stated that this chest pain resolved and breathing got better On exam she was comfortable and was admitted to the medical service Transfused 1 unit of packed red blood cell for hemoglobin of 6.9 also of note Patient recently underwent paracentesis 09/04 Patient was transferred to the intensive care unit after TEST ADMINISTRATOR was called for severe respiratory distress and hypoxemia and patient found to be confused and respiratory distress BP was stable but she was tachycardic, tachypneic and saturating 88% on non- rebreathing mask she is to receive a stat dose of IV Lasix and transferred to the intensive care unit Upon admitting to the to the ICU she was emergently intubated by anesthesia and mechanically ventilated Patient self extubated and she was in distress and she was reintubated ICU coursed for failure to extubate, and Patient S/P trach last week Currently patient is intubated via Tracheostomy, mechanically ventilated,Off all sedation On PRVC, TV 450, RR 20, FIO2 60% PEEP 5 She looks comfortable and in no distress Sometimes tachypnic, requiring PRN Ativan Improved oxygenation blood pressure is better, Off Levophed Sepsis controlled, Afebrile today, Tmx 99.9 + Tachycardia, electrolyte including potassium and magnesium was supplemented + Fluid overload on exam, PRN Furosemide (Lasix), will give 50 gm albumin followed by IV Lasix Most recent Blood 10/05 negative, and Most recent urine 10/05 C/S + yeast This morning labs revealed No Leucocytosis, Stable renal function BUN/Cr 70/1.0 and Plat count 88K, Hypernatremia improving Na 146 Discussed with the mother at the bedside patient condition, poor prognosis, treatment plans and alternative The mother is determined that she wants everything to be done for the patient and she is in agreement with pursuing PEG and possible LTAC placement CCU Objective - Vital Signs / Intake & Output Vital Signs (Last 4 hours): Vital Signs Temp Pulse Resp BP Pulse Ox 10/10/18 10:00 98.1 F 106 H 20 107/66 100 10/10/18 09:00 98.1 F 106 H 20 117/66 100 10/10/18 08:00 98.1 F 109 H 20 107/66 100 Intake and Output (Last 8hrs): Intake & Output 10/09/18 10/10/18 10/10/18 22:59 06:59 14:59 Intake Total 576 795 558 Output Total 70 310 Balance 506 485 558 Weight 196 lb 4.8 oz Intake: IV 136 175 68 Intake, Piggyback 100 150 Tube Feeding 140 420 140 Free Water Flush 200 200 200 Output: Urine 50 310 Urethral (Orellana) 50 310 Stool 20 - Physical Exam Head: Positive for: Atraumatic, Normocephalic Pupils: Positive for: PERRL Extroacular Muscles: Positive for: EOMI Conjunctiva: Negative for: Injected, Icteric Ears: Positive for: Normal Mouth: Positive for: Moist Mucous Membranes Nose (Internal): Positive for: Normal Inspection Neck: Positive for: Normal Range of Motion, Trachea Midline. Negative for: Meningeal Signs, MIDLINE TENDERNESS, Paraspinal Tenderness, JVD, Lymphadenop athy, Bruit, Other Respiratory/Chest: Positive for: Good Air Exchange, Rales, Retracting, Rhonchi. Negative for: Respiratory Distress, Accessory Muscle Use, Wheezes, Tachypneic Cardiovascular: Positive for: Regular Rate and Rhythm, Normal S1, S2, Peripheal Pulses Present. Negative for: Murmurs, Irregular Rhythm, Tachycardic, Bradycardic Abdomen: Positive for: Normal Bowel Sounds. Negative for: Tenderness Breast/Axillary: Positive for: Other (fungating necrotic mass to Right Breast) Upper Extremity: Positive for: Edema, NORMAL PULSES. Negative for: Normal Inspection, Cyanosis Lower Extremity: Positive for: Edema, NORMAL PULSES. Negative for: Normal Inspection Neurological: Positive for: Other (on ventilator, opens eyes to verbal stimuli) Psychiatric: Positive for: Other (Sedated and orally intubated). Negative for: Alert - Medications Active Medications: Active Medications Generic Name Dose Route Start Last Admin Trade Name Freq PRN Reason Stop Dose Admin Allopurinol 100 mg 09/14/18 09:00 09/27/18 08:16 Zyloprim NG 100 mg DAILY GLADIS Administration Meropenem 1 gm/ Sodium 100 mls @ 100 mls/hr 09/18/18 12:45 10/10/18 08:45 Chloride IVPB 100 mls/hr Q8 GLADIS Administration Protocol Fluconazole 50 mls @ 50 mls/hr 10/10/18 09:00 10/10/18 08:45 Diflucan Iv 100 Mg/50 Ml Ns IVPB 50 mls/hr DAILY GLADIS Administration Protocol Loratadine 10 mg 09/29/18 12:15 10/10/18 08:44 Claritin PO 10 mg DAILY GLADIS Administration - Patient Studies Lab Studies: Microbiology Studies 10/05/18 06:15 Blood Culture - Final Blood NO GROWTH AFTER 5 DAYS Gram Stain - Final TEST NOT PERFORMED 10/05/18 06:30 Blood Culture - Final Blood NO GROWTH AFTER 5 DAYS Gram Stain - Final TEST NOT PERFORMED Lab Studies 10/10/18 10/10/18 10/10/18 Range/Units 06:11 04:41 04:41 WBC 12.7 H (4.8-10.8) K/uL RBC 3.36 L (3.80-5.20) Mil/uL Hgb 10.1 L (12.0-16.0) g/dL Hct 30.7 L (34.0-47.0) % MCV 91.2 (81.0-99.0) fl MCH 30.2 (27.0-31.0) pg MCHC 33.1 (33.0-37.0) g/dL RDW 16.4 H (11.5-14.5) % Plt Count 124 L D (130-400) K/uL pCO2 39 (35-45) mm/Hg pO2 80 (80-100) mm/Hg HCO3 27.2 (21-28) mmol/L ABG pH 7.45 (7.35-7.45) ABG Total CO2 28.3 H (22-28) mmol/L ABG O2 Saturation 98.4 H (95-98) % ABG O2 Content 14.1 L (15-23) ML/dL ABG Base Excess 2.9 (-2.0-3.0) mmol/L ABG Hemoglobin 10.4 L (11.7-17.4) g/dL ABG Carboxyhemoglobin 1.7 H (0.5-1.5) % POC ABG HHb (Measured) 1.6 (0.0-5.0) % ABG Methemoglobin 1.1 (0.0-3.0) % ABG O2 Capacity 14.3 L (16-24) mL/dL Frederic Test Yes A-a O2 Difference 299.0 mm/Hg Hgb O2 Saturation 95.5 (95.0-98.0) % Vent Mode Prvc/ac Mechanical Rate 20 FiO2 60.0 % Tidal Volume 450 PEEP 5 Sodium 147 (132-148) mmol/l Potassium 4.0 (3.6-5.0) MMOL/L Chloride 108 H (98-107) mmol/L Carbon Dioxide 24 (22-30) mmol/L Anion Gap 19 (10-20) BUN 75 H (7-17) mg/dl Creatinine 1.1 (0.7-1.2) mg/dl Est GFR ( Amer) > 60 Est GFR (Non-Af Amer) 51 Random Glucose 112 H (65-105) mg/dL Calcium 7.7 L (8.4-10.2) mg/dL Laboratory Results - last 24 hr 10/10/18 10/10/18 10/10/18 04:41 04:41 06:11 WBC 12.7 H RBC 3.36 L Hgb 10.1 L Hct 30.7 L MCV 91.2 MCH 30.2 MCHC 33.1 RDW 16.4 H Plt Count 124 L D pCO2 39 pO2 80 HCO3 27.2 ABG pH 7.45 ABG Total CO2 28.3 H ABG O2 Saturation 98.4 H ABG O2 Content 14.1 L ABG Base Excess 2.9 ABG Hemoglobin 10.4 L ABG Carboxyhemoglobin 1.7 H POC ABG HHb (Measured) 1.6 ABG Methemoglobin 1.1 ABG O2 Capacity 14.3 L Frederic Test Yes A-a O2 Difference 299.0 Hgb O2 Saturation 95.5 Vent Mode Prvc/ac Mechanical Rate 20 FiO2 60.0 Tidal Volume 450 PEEP 5 Sodium 147 Potassium 4.0 Chloride 108 H Carbon Dioxide 24 Anion Gap 19 BUN 75 H Creatinine 1.1 Est GFR ( Amer) > 60 Est GFR (Non-Af Amer) 51 Random Glucose 112 H Calcium 7.7 L Radiology Impressions: Radiology Impressions Chest X-Ray 10/09/18 05:00 IMPRESSION: No significant interval change. Persistent large loculated left pleural effusion. Stable position of support line and tubes. Chest X-Ray 10/10/18 05:00 IMPRESSION: No interval change in prominent left pleural effusion with underlying airspace disease not excluded. Limited patchy density right base unchanged as well as trace right pleural effusion. Critical Care Progress Note - Nutrition Nutrition: Nutrition Category Date Time Status NPO Diet [DIET] Diets 10/03/18 Breakfast Active Assessment/Plan (1) Severe sepsis Current Visit: Yes Status: Acute Priority: Medium Comment: Continue IV Vancomycin 750 mg IVPB Q12, Fluconazole (Diflucan) 100 Mg IVPB DAILY and Meropenem 1 gm IVBP Q8H (2) Acute respiratory failure with hypoxia Current Visit: Yes Status: Acute Priority: High Comment: Intubated for hypoxemic respiratory failure S/P Tracheostomy strict I&O, Maintian negative fluid balance Continue diuresis as blood pressure permits She is not a candidate for spontaneous breathing since she is not clinically stable and very poor mental status Discussed with the mother at the bedside patient condition, poor prognosis, treatment plans and alternative Will schedule Pt for PEG (3) Congestive heart failure (CHF) Current Visit: Yes Status: Acute Priority: High Comment: Intubated for hypoxemic respiratory failure strict I&O, Maintian negative fluid balance Continue diuresis as blood pressure permits PRN Furosemide (Lasix) (4) DVT of lower extremity, bilateral Current Visit: No Status: Chronic Priority: Medium Comment: Patient with H/O provoked DVT and Pulmonary embolism She was Apixaban (Eliquis) 5 mg PO BID Now off due to bleeding from uterine cancer (5) Pulmonary embolism on left Current Visit: No Status: Chronic Priority: Medium Comment: Patient with H/O provoked DVT and Pulmonary embolism Continue Apixaban (Eliquis) 5 mg PO BID (6) Breast CA Current Visit: Yes Status: Acute Priority: High (7) Anemia Current Visit: Yes Status: Acute Priority: High Comment: Anemia is likely multifactorial from chronic disease and bleeding from uterine cancer Transfuse as needed Hematology oncology consult appreciated
--- NOTE | 2018-10-11 00:01 | CP.PCM.PN ---
Subjective - Date & Time of Evaluation Date of Evaluation: 10/10/18 Time of Evaluation: 23:15 - Subjective Subjective: Seen and examined at the bed side. Patient continue to decline. Anasarca, continue to be intubated and unresponsive. NOK refused DNR/DNI and end of lefe care. Unstable to discharge as patient is on Pressors, and will need G-Tube to send her even to long Acute Care Facility. Patient is MOF, Septic and Cardiogenic shock with Severe Cardiomyopathy, Anemia, Thrombo-cytopenia, Active bleeding, Stage IV Malignancy and extensive rashes. S/P Tracheostomy. Objective - Vital Signs/Intake and Output Vital Signs (last 24 hours): Temp Pulse Resp BP Pulse Ox 98.6 F 120 H 20 117/64 98 10/10/18 23:00 10/10/18 23:00 10/10/18 23:00 10/10/18 23:00 10/10/18 23:00 Intake and Output: 10/10/18 10/11/18 18:59 06:59 Intake Total 1666 200 Output Total 200 115 Balance 1466 85 - Medications Medications: Current Medications Allopurinol (Zyloprim) 100 mg NG DAILY GLADIS Last Admin: 09/27/18 08:16 Dose: 100 mg Furosemide (Lasix) 20 mg IVP ONCE ONE Stop: 10/11/18 11:14 Meropenem 1 gm/ Sodium (Chloride) 100 mls @ 100 mls/hr IVPB Q8 GLADIS; Protocol Last Admin: 10/10/18 17:48 Dose: 100 mls/hr Fluconazole (Diflucan Iv 100 Mg/50 Ml Ns) 50 mls @ 50 mls/hr IVPB DAILY GLADIS; Pr otocol Last Admin: 10/10/18 08:45 Dose: 50 mls/hr Norepinephrine Bitartrate 8 mg (/ Dextrose) 258 mls @ 4.84 mls/hr IV .Q24H ONE; Protocol Stop: 10/11/18 13:45 Last Admin: 10/10/18 17:44 Dose: 2.5 mcg/min, 4.84 mls/hr Loratadine (Claritin) 10 mg PO DAILY GLADIS Last Admin: 10/10/18 08:44 Dose: 10 mg - Labs Labs: 10/10/18 04:41 10/10/18 04:41 PT 14.9 Seconds (9.8-13.1) H 10/03/18 04:40 INR 1.3 10/03/18 04:40 APTT 26.7 Seconds (25.6-37.1) 10/03/18 04:40 Assessment and Plan (1) Acute respiratory failure with hypoxemia Status: Acute (2) Ascites, malignant Status: Acute (3) Congestive heart failure (CHF) Status: Acute (4) Stage IV breast cancer in female Status: Acute (5) Severe anemia Status: Resolved (6) DVT of lower extremity, bilateral Status: Chronic (7) Thrombocytopenia Status: Acute - Assessment and Plan (Free Text) Plan: Continue Current Care
[2018-10-11] MEDS: Meropenem 1 GM in Sodium Chloride 0.9% 100 ML IVPB SCH ×3 (00:28→16:10)
--- NOTE | 2018-10-11 00:53 | CP.PCM.PN ---
Subjective - Date & Time of Evaluation Date of Evaluation: 10/09/18 Time of Evaluation: 20:00 - Subjective Subjective: Vented Objective - Vital Signs/Intake and Output Vital Signs (last 24 hours): Temp Pulse Resp BP Pulse Ox 98.6 F 125 H 20 110/67 100 10/10/18 23:00 10/11/18 00:00 10/11/18 00:00 10/11/18 00:00 10/11/18 00:00 Intake and Output: 10/10/18 10/11/18 18:59 06:59 Intake Total 1666 300 Output Total 200 125 Balance 1466 175 - Medications Medications: Current Medications Allopurinol (Zyloprim) 100 mg NG DAILY GLADIS Last Admin: 09/27/18 08:16 Dose: 100 mg Furosemide (Lasix) 20 mg IVP ONCE ONE Stop: 10/11/18 11:14 Meropenem 1 gm/ Sodium (Chloride) 100 mls @ 100 mls/hr IVPB Q8 GLADIS; Protocol Last Admin: 10/11/18 00:28 Dose: 100 mls/hr Fluconazole (Diflucan Iv 100 Mg/50 Ml Ns) 50 mls @ 50 mls/hr IVPB DAILY GLADIS; Protocol Last Admin: 10/10/18 08:45 Dose: 50 mls/hr Norepinephrine Bitartrate 8 mg (/ Dextrose) 258 mls @ 4.84 mls/hr IV .Q24H ONE; Protocol Stop: 10/11/18 13:45 Last Admin: 10/10/18 17:44 Dose: 2.5 mcg/min, 4.84 mls/hr Loratadine (Claritin) 10 mg PO DAILY GLADIS Last Admin: 10/10/18 08:44 Dose: 10 mg - Labs Labs: 10/10/18 04:41 10/10/18 04:41 PT 14.9 Seconds (9.8-13.1) H 10/03/18 04:40 INR 1.3 10/03/18 04:40 APTT 26.7 Seconds (25.6-37.1) 10/03/18 04:40 - Head Exam Head Exam: ATRAUMATIC - Eye Exam Eye Exam: Normal appearance - ENT Exam ENT Exam: Mucous Membranes Dry - Respiratory Exam Respiratory Exam: NORMAL BREATHING PATTERN - Cardiovascular Exam Cardiovascular Exam: +S1, +S2 - GI/Abdominal Exam GI & Abdominal Exam: Normal Bowel Sounds - Extremities Exam Extremities Exam: Pedal Edema Assessment and Plan (1) Pancytopenia Assessment & Plan: WBC normalized H/H fairly stable; hematuria/vaginal bleeding improved plt count greatly improved Status: Acute (2) Pulmonary embolism Assessment & Plan: not an anticoagulation candidate due to bleeding Status: Acute (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
--- NOTE | 2018-10-11 00:55 | CP.PCM.PN ---
Subjective - Date & Time of Evaluation Date of Evaluation: 10/10/18 Time of Evaluation: 15:00 - Subjective Subjective: Vented, mother at bedside. Objective - Vital Signs/Intake and Output Vital Signs (last 24 hours): Temp Pulse Resp BP Pulse Ox 98.6 F 125 H 20 110/67 100 10/10/18 23:00 10/11/18 00:00 10/11/18 00:00 10/11/18 00:00 10/11/18 00:00 Intake and Output: 10/10/18 10/11/18 18:59 06:59 Intake Total 1666 300 Output Total 200 125 Balance 1466 175 - Medications Medications: Current Medications Allopurinol (Zyloprim) 100 mg NG DAILY GLADIS Last Admin: 09/27/18 08:16 Dose: 100 mg Furosemide (Lasix) 20 mg IVP ONCE ONE Stop: 10/11/18 11:14 Meropenem 1 gm/ Sodium (Chloride) 100 mls @ 100 mls/hr IVPB Q8 GLADIS; Protocol Last Admin: 10/11/18 00:28 Dose: 100 mls/hr Fluconazole (Diflucan Iv 100 Mg/50 Ml Ns) 50 mls @ 50 mls/hr IVPB DAILY GLADIS; Protocol Last Admin: 10/10/18 08:45 Dose: 50 mls/hr Norepinephrine Bitartrate 8 mg (/ Dextrose) 258 mls @ 4.84 mls/hr IV .Q24H ONE; Protocol Stop: 10/11/18 13:45 Last Admin: 10/10/18 17:44 Dose: 2.5 mcg/min, 4.84 mls/hr Loratadine (Claritin) 10 mg PO DAILY GLADIS Last Admin: 10/10/18 08:44 Dose: 10 mg - Labs Labs: 10/10/18 04:41 10/10/18 04:41 PT 14.9 Seconds (9.8-13.1) H 10/03/18 04:40 INR 1.3 10/03/18 04:40 APTT 26.7 Seconds (25.6-37.1) 10/03/18 04:40 - Head Exam Head Exam: ATRAUMATIC - Eye Exam Eye Exam: Normal appearance - ENT Exam ENT Exam: Mucous Membranes Dry - Respiratory Exam Respiratory Exam: Decreased Breath Sounds - Cardiovascular Exam Cardiovascular Exam: +S1, +S2 - GI/Abdominal Exam GI & Abdominal Exam: Normal Bowel Sounds Assessment and Plan (1) Pancytopenia Assessment & Plan: WBC normalized H/H fairly stable; hematuria/vaginal bleeding improved plt count greatly improved Status: Acute (2) Pulmonary embolism Assessment & Plan: not an anticoagulation candidate due to bleeding Status: Acute (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
[2018-10-11 04:24] LABS: ABG ALLEN TEST YES; ARTERIAL BLOOD GAS HCO3 26.4 mmol/L (21-28); ARTERIAL BLOOD GAS O2 CAPACITY 13.7 mL/dL (16-24); ARTERIAL BLOOD GAS O2 CONTENT 13.5 ML/dL (15-23); ARTERIAL BLOOD GAS O2 SAT 98.6 % (95-98); ARTERIAL BLOOD GAS PCO2 35 mm/Hg (35-45); ARTERIAL BLOOD GAS PH 7.47 (7.35-7.45); ARTERIAL BLOOD GAS PO2 79 mm/Hg (80-100); ARTERIAL BLOOD GAS TCO2 26.6 mmol/L (22-28)
[2018-10-11 05:44] LABS: HEMOGLOBIN 9.8 g/dL (12.0-16.0); MEAN CELL VOLUME 91.7 fl (81.0-99.0); MEAN CORPUSCULAR HEMOGLOBIN 29.9 pg (27.0-31.0); MEAN CORPUSCULAR HGB CONC 32.7 g/dL (33.0-37.0); RBC 3.27 Mil/uL (3.80-5.20); RED CELL DISTRIBUTION WIDTH 16.8 % (11.5-14.5); WHITE BLOOD COUNT 12.7 K/uL (4.8-10.8)
[2018-10-11 05:55] LABS: CALCIUM 7.9 mg/dL (8.4-10.2)
[2018-10-11] MEDS: Fluconazole IV 100mg/50 ml NS 50 ML IVPB SCH (08:25)
--- NOTE | 2018-10-11 08:39 | CP.CCUPN ---
CCU Subjective - Physician Review Subjective (Free Text): No overall change in clinical condition, no clinically evident, nor active bleeding noted, s/p Trach and remains on MV support up to 60% oxygen, with SPO2 95%, no MV weans initiated to obtundation and vasopressor dependence. Previous skin rash changes have resolved. Temps 98-99 with no fever spikes last 24H. SBPs 90s, HR 120s. Approx 2.1 liter positive fluid balance. ROS: No other pertinent negs or positive on 10+ system review obtainable due to lethargic status Other PMSFH: All other Nursing and physician documentation reviewed to date; no new pertinent info noted relevant to current medical problems. EXAM- HEENT: no icterus, pupils equal, 3 mm and reactive, no gaze preference, opens eyes briefly to pain, but sustained wakeful state NECK: no visible JVD, supple, carotids equal upstroke bilat/no bruits CHEST: decreased BS bases, no wheezes audible, bloody fluid drained dressing over R breast. Left chest portacath. HEART: regular, distant, tachy S1S2, no murmur audible, no rubs. ABD: soft, ++distention with ascites, no focal tenderness, BS hypoactive, dried necrotic lesion over umbilicus unchanged. Previous paracentesis puncture site still leaking ascitic fluid. EXT: + anasarca with +++ edema UEs and LEs, and arms +ulcer posterior R calf worse than L, no calf tenderness or palpable cords, distal pulses intact and symmetrical NEURO: withdraws to pain stimuli, + tone SKIN: no rashes LABS: WBC= 12.7 HGB= 9.8 PLTs = 128K 7.47/35/79 Na= 147 K= 4.0 Cl= 109 HCO3= 24 BUN/Cr= 79/1.2 BS= 120 CXR: (my interp)- TT position OK with tracheal air column, worse Left basilar effusion with bilat compressed lung volumes due to ascites. IMPRESSION / MAJOR PROBLEMS NOW: 1. Acute hypoxemic Resp Failure, 2 bilat multi-lobar pneumonia 2. Persistent vaginal Bleeding 3. Severe Sepsis with shock, 2 Pneumonia, r/o bacteremia 4. Acute on Chronic disease Anemia 5. h/o DVT- bilat CFV on Feb 5. 6. s/p Paracentesis Feb 5 for 2.5 liters, and repeated Mar 7 for 3.6 liters. PLAN: 1. No blood products anticipated today. 2. MV support, unable to lower fio2 further, may need repeat Paracentesis. 3. Wean Norepinephrine if feasible. 4. Would hold Lasix. Tachycardia may be related to intravascular volume depletion. Check lactate level. 5. Juan / Diflucan coverage. 6. No new Advance Directives from Mother, full aggressive care maintained as family requested. [facility] placement being considered.
--- NOTE | 2018-10-11 16:26 | RAD ---
Date of service: 10/11/2018 HISTORY: Trach, vented. COMPARISON: Comparison made with chest radiograph 10/10/2018 at 0420 hr FINDINGS: In situ tracheostomy tube in good position. NGT is present, the tip of which lies left mid abdomen in good position. Left IJ central line with tip in the SVC. LUNGS: Low lung volumes. There opacification of the left lung base felt to be secondary to a combination of left effusion with atelectasis and/or infiltrate. Mild right basilar atelectasis and small right effusion. PLEURA: No significant pleural effusion identified, no pneumothorax apparent. CARDIOVASCULAR: No aortic atherosclerotic calcification present. Normal cardiac size. No pulmonary vascular congestion. OSSEOUS STRUCTURES: No significant abnormalities. VISUALIZED UPPER ABDOMEN: Normal. OTHER FINDINGS: None. IMPRESSION: Support lines and tubes as above. Low lung volumes. Opacification left lung base felt to be secondary to a combination of left effusion with atelectasis and/or infiltrate. Mild right basilar atelectasis and small right effusion.
--- NOTE | 2018-10-11 20:44 | CP.PCM.PN ---
Subjective - Date & Time of Evaluation Date of Evaluation: 10/11/18 Time of Evaluation: 19:00 - Subjective Subjective: Vented Objective - Vital Signs/Intake and Output Vital Signs (last 24 hours): Temp Pulse Resp BP Pulse Ox 99.9 F H 130 H 20 131/74 95 10/11/18 18:00 10/11/18 18:00 10/11/18 18:00 10/11/18 18:00 10/11/18 18:00 Intake and Output: 10/11/18 10/12/18 18:59 06:59 Intake Total 1486 Output Total 200 Balance 1286 - Medications Medications: Current Medications Allopurinol (Zyloprim) 100 mg NG DAILY GLADIS Last Admin: 09/27/18 08:16 Dose: 100 mg Meropenem 1 gm/ Sodium (Chloride) 100 mls @ 100 mls/hr IVPB Q8 GLADIS; Protocol Last Admin: 10/11/18 16:10 Dose: 100 mls/hr Fluconazole (Diflucan Iv 100 Mg/50 Ml Ns) 50 mls @ 50 mls/hr IVPB DAILY GLADIS; Protocol Last Admin: 10/11/18 08:25 Dose: 50 mls/hr Loratadine (Claritin) 10 mg PO DAILY GLADIS Last Admin: 10/11/18 08:25 Dose: 10 mg - Labs Labs: 10/11/18 05:05 10/11/18 05:05 PT 14.9 Seconds (9.8-13.1) H 10/03/18 04:40 INR 1.3 10/03/18 04:40 APTT 26.7 Seconds (25.6-37.1) 10/03/18 04:40 - Head Exam Head Exam: ATRAUMATIC - Eye Exam Eye Exam: Normal appearance - ENT Exam ENT Exam: Mucous Membranes Dry - Respiratory Exam Respiratory Exam: Decreased Breath Sounds - Cardiovascular Exam Cardiovascular Exam: +S1, +S2 - GI/Abdominal Exam GI & Abdominal Exam: Normal Bowel Sounds - Extremities Exam Extremities Exam: Pedal Edema Assessment and Plan (1) Anemia Assessment & Plan: anemia of chronic disease [place] blood loss transfusion support PRN Status: Acute (2) Thrombocytopenia Assessment & Plan: mild improving Status: Acute (3) Pulmonary embolism Assessment & Plan: not an anticoagulation candidate due to bleeding Status: Acute (4) 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
[2018-10-12] MEDS: Meropenem 1 GM in Sodium Chloride 0.9% 100 ML IVPB SCH ×3 (00:43→17:08)
[2018-10-12 04:32] LABS: ABG ALLEN TEST YES; ARTERIAL BLOOD GAS HCO3 25.3 mmol/L (21-28); ARTERIAL BLOOD GAS HEMOGLOBIN 10.7 g/dL (11.7-17.4); ARTERIAL BLOOD GAS O2 CAPACITY 14.6 mL/dL (16-24); ARTERIAL BLOOD GAS O2 CONTENT 14.3 ML/dL (15-23); ARTERIAL BLOOD GAS O2 SAT 97.7 % (95-98); ARTERIAL BLOOD GAS PCO2 36 mm/Hg (35-45); ARTERIAL BLOOD GAS PH 7.44 (7.35-7.45); ARTERIAL BLOOD GAS PO2 78 mm/Hg (80-100); ARTERIAL BLOOD GAS TCO2 25.6 mmol/L (22-28)
[2018-10-12 05:10] LABS: BASO # 0.1 K/uL (0.0-0.2); BASO % 0.4 % (0.0-2.0); HEMOGLOBIN 10.2 g/dL (12.0-16.0); LYMPH # 1.2 K/uL (1.0-4.3); LYMPH % 7.7 % (20.0-40.0); MEAN CELL VOLUME 93.1 fl (81.0-99.0); MEAN CORPUSCULAR HEMOGLOBIN 29.6 pg (27.0-31.0); MEAN CORPUSCULAR HGB CONC 31.8 g/dL (33.0-37.0); MEAN PLATELET VOLUME 11.2 fl (7.2-11.7); MONO # 0.6 K/uL (0.0-0.8); MONO % 3.5 % (0.0-10.0); NEUT # 13.9 K/uL (1.8-7.0); NEUT % 88.4 % (50.0-75.0); PLATELET COUNT 141 K/uL (130-400); RBC 3.43 Mil/uL (3.80-5.20); RED CELL DISTRIBUTION WIDTH 16.6 % (11.5-14.5); WHITE BLOOD COUNT 15.8 K/uL (4.8-10.8)
[2018-10-12 05:18] LABS: CALCIUM 7.3 mg/dL (8.4-10.2)
--- NOTE | 2018-10-12 05:24 | CP.PCM.PN ---
Subjective - Date & Time of Evaluation Date of Evaluation: 10/11/18 Time of Evaluation: 15:00 - Subjective Subjective: SEEN ON RENAL F/U IN ICU S/P TRACH ..INTUBATED SODIUM STARTED COMING DOWN PRE RENAL AZOTEMIA [employer] WORSE Objective - Vital Signs/Intake and Output Vital Signs (last 24 hours): Temp Pulse Resp BP Pulse Ox 100.8 F H 139 H 22 120/77 94 L 10/12/18 04:00 10/12/18 04:00 10/12/18 04:00 10/12/18 04:00 10/12/18 04:00 Intake and Output: 10/11/18 10/12/18 18:59 06:59 Intake Total 1486 912 Output Total 200 Balance 1286 912 - Medications Medications: Current Medications Allopurinol (Zyloprim) 100 mg NG DAILY GLADIS Last Admin: 09/27/18 08:16 Dose: 100 mg Meropenem 1 gm/ Sodium (Chloride) 100 mls @ 100 mls/hr IVPB Q8 GLADIS; Protocol Last Admin: 10/12/18 00:43 Dose: 100 mls/hr Fluconazole (Diflucan Iv 100 Mg/50 Ml Ns) 50 mls @ 50 mls/hr IVPB DAILY GLADIS; Protocol Last Admin: 10/11/18 08:25 Dose: 50 mls/hr Norepinephrine Bitartrate 8 mg (/ Dextrose) 258 mls @ 4.84 mls/hr IV .Q24H ONE; Protocol Stop: 10/13/18 00:01 Last Admin: 10/12/18 00:40 Dose: 6 mcg/min, 11.61 mls/hr Loratadine (Claritin) 10 mg PO DAILY GLADIS Last Admin: 10/11/18 08:25 Dose: 10 mg - Labs Labs: 10/12/18 05:00 10/12/18 05:00 PT 14.9 Seconds (9.8-13.1) H 10/03/18 04:40 INR 1.3 10/03/18 04:40 APTT 26.7 Seconds (25.6-37.1) 10/03/18 04:40 Assessment and Plan - Assessment and Plan (Free Text) Assessment: LOUIE .. MAINLY PRE RENAL HYPERNATREMIA .. MMP P : DISSOLVE ALL IV MEDS IN D5W COMPATIBLE C/O SUPPORTIVE CARE
--- NOTE | 2018-10-12 08:22 | CON ---
DATE: 10/11/2018 REFERRING PHYSICIAN: REASON FOR CONSULTATION: Dysphagia . HISTORY OF PRESENT ILLNESS: This is a 58-year-old female who was intubated and stage IV metastatic cancer and on chemotherapy, respiratory failure. He has a trach and responsive at this point and tolerating feeding tube. The patient is lying comfortable in bed today in no apparent distress. PAST MEDICAL HISTORY: As above. PAST SURGICAL HISTORY: As above. REVIEW OF SYSTEMS: All other systems have been reviewed and negative apart from the HPI. PHYSICAL EXAMINATION: VITAL SIGNS: Here in the hospital are grossly unremarkable. GENERAL: This is a pleasant elderly appearing female, lying in bed comfortably, in no apparent distress. HEENT: Head: Normocephalic and atraumatic. Eyes: Pupils are equally reactive to light bilaterally. No conjunctival pallor or icterus. NECK: Supple. Normal range of motion. No lymphadenopathy appreciated. LUNGS: Coarse breath sounds bilaterally. HEART: S1 and S2. ABDOMEN: Full, nontender. Bowel sounds present. No rebound. No guarding. RECTAL: Deferred. EXTREMITIES: Pulses felt bilaterally. SKIN: Warm, dry, and intact. NEUROLOGIC: A and O x1. Responds to pain. LABORATORY DATA: All labs and radiology have been reviewed. WBC 12.7, hemoglobin 9.8, hematocrit 30, platelet count of 128. ASSESSMENT AND PLAN: This is a 58-year-old female with metastatic disease and respiratory distress. She is status post tracheostomy and feeding tube. We discussed with the family. The patient's prognosis is poor. We will need cardiac clearance at this point to pursue any invasive concern. Thank you for the consult. Jeremias Monk MD/ PhD cc:
[2018-10-12] MEDS: Fluconazole IV 100mg/50 ml NS 50 ML IVPB SCH (08:24)
[2018-10-12 08:33] LABS: ANISOCYTOSIS SLIGHT; BANDS 3 % (0-2); LYMPHOCYTE 5 % (20-50); MONOCYTE 3 % (0-10); NEUTROPHIL 89 % (42-75); PLATELET ESTIMATE NORMAL (NORMAL); TOTAL CELLS COUNTED 100
[2018-10-12 08:34] LABS: HYPOCHROMIC SLIGHT
--- NOTE | 2018-10-12 11:46 | CP.PCM.PN ---
Subjective - Date & Time of Evaluation Date of Evaluation: 10/12/18 Time of Evaluation: 11:46 - Subjective Subjective: ID Note- Pt. seen and examined today in ICU. remains intubated and unresponsive. Objective - Vital Signs/Intake and Output Vital Signs (last 24 hours): Temp Pulse Resp BP Pulse Ox 98.2 F 135 H 20 96/56 L 93 L 10/12/18 11:00 10/12/18 11:00 10/12/18 11:00 10/12/18 11:00 10/12/18 11:00 Intake and Output: 10/12/18 10/12/18 06:59 18:59 Intake Total 1004 510 Output Total 300 Balance 704 510 - Medications Medications: Current Medications Allopurinol (Zyloprim) 100 mg NG DAILY GLADIS Last Admin: 09/27/18 08:16 Dose: 100 mg Meropenem 1 gm/ Sodium (Chloride) 100 mls @ 100 mls/hr IVPB Q8 GLADIS; Protocol Last Admin: 10/12/18 08:24 Dose: 100 mls/hr Fluconazole (Diflucan Iv 100 Mg/50 Ml Ns) 50 mls @ 50 mls/hr IVPB DAILY GLADIS; Protocol Last Admin: 10/12/18 08:24 Dose: 50 mls/hr Norepinephrine Bitartrate 8 mg (/ Dextrose) 258 mls @ 4.84 mls/hr IV .Q24H ONE; Protocol Stop: 10/13/18 00:01 Last Admin: 10/12/18 00:40 Dose: 6 mcg/min, 11.61 mls/hr Loratadine (Claritin) 10 mg PO DAILY GLADIS Last Admin: 10/12/18 08:23 Dose: 10 mg - Labs Labs: - Additional Findings Additional findings: - Constitutional Appears: Chronically Ill Additional comments: on the vent and not responsive - Eye Exam Eye Exam: PERRL - ENT Exam Additional comments: s/p trache - Respiratory Exam Additional comments: On the vent - Cardiovascular Exam Cardiovascular Exam: Tachycardia, +S1, +S2 - GI/Abdominal Exam Additional comments: distended hypoactive BS umbilical region with mass like lesion with denuded skin , no pus + ascites - Extremities Exam Additional comments: b/l 2+ edema in LE and UE - Neurological Exam Additional comments: unresponsive Laboratory Results - last 72 hr 10/10/18 10/10/18 10/10/18 04:41 04:41 06:11 WBC 12.7 H RBC 3.36 L Hgb 10.1 L Hct 30.7 L MCV 91.2 MCH 30.2 MCHC 33.1 RDW 16.4 H Plt Count 124 L D MPV Neut % (Auto) Lymph % (Auto) [place] % (Auto) Eos % (Auto) Baso % (Auto) Neut # (Auto) Lymph # (Auto) [place] # (Auto) Eos # (Auto) Baso # (Auto) Neutrophils % (Manual) Band Neutrophils % Lymphocytes % (Manual) Monocytes % (Manual) Platelet Estimate Hypochromasia (manual) Anisocytosis (manual) pCO2 39 pO2 80 HCO3 27.2 ABG pH 7.45 ABG Total CO2 28.3 H ABG O2 Saturation 98.4 H ABG O2 Content 14.1 L ABG Base Excess 2.9 ABG Hemoglobin 10.4 L ABG Carboxyhemoglobin 1.7 H POC ABG HHb (Measured) 1.6 ABG Methemoglobin 1.1 ABG O2 Capacity 14.3 L Frederic Test Yes A-a O2 Difference 299.0 Hgb O2 Saturation 95.5 Vent Mode Prvc/ac Mechanical Rate 20 FiO2 60.0 Tidal Volume 450 PEEP 5 Sodium 147 Potassium 4.0 Chloride 108 H Carbon Dioxide 24 Anion Gap 19 BUN 75 H Creatinine 1.1 Est GFR ( Amer) > 60 Est GFR (Non-Af Amer) 51 Random Glucose 112 H Calcium 7.7 L 10/11/18 10/11/18 10/11/18 04:07 05:05 05:05 WBC 12.7 H RBC 3.27 L Hgb 9.8 L Hct 30.0 L MCV 91.7 MCH 29.9 MCHC 32.7 L RDW 16.8 H Plt Count 128 L MPV Neut % (Auto) Lymph % (Auto) [place] % (Auto) Eos % (Auto) Baso % (Auto) Neut # (Auto) Lymph # (Auto) [place] # (Auto) Eos # (Auto) Baso # (Auto) Neutrophils % (Manual) Band Neutrophils % Lymphocytes % (Manual) Monocytes % (Manual) Platelet Estimate Hypochromasia (manual) Anisocytosis (manual) pCO2 35 pO2 79 L HCO3 26.4 ABG pH 7.47 H ABG Total CO2 26.6 ABG O2 Saturation 98.6 H ABG O2 Content 13.5 L ABG Base Excess 1.9 ABG Hemoglobin 10.0 L ABG Carboxyhemoglobin 1.8 H POC ABG HHb (Measured) 1.4 ABG Methemoglobin 1.3 ABG O2 Capacity 13.7 L Frederic Test Yes A-a O2 Difference 305.0 Hgb O2 Saturation 95.4 Vent Mode A/c Mechanical Rate 20 FiO2 60.0 Tidal Volume 450 PEEP 5 Sodium 147 Potassium 4.0 Chloride 109 H Carbon Dioxide 24 Anion Gap 18 BUN 78 H Creatinine 1.2 Est GFR ( Amer) 55 Est GFR (Non-Af Amer) 46 Random Glucose 120 H Calcium 7.9 L 10/12/18 10/12/18 10/12/18 04:24 05:00 05:00 WBC 15.8 H RBC 3.43 L Hgb 10.2 L Hct 31.9 L MCV 93.1 MCH 29.6 MCHC 31.8 L RDW 16.6 H Plt Count 141 MPV 11.2 Neut % (Auto) 88.4 H Lymph % (Auto) 7.7 L [place] % (Auto) 3.5 Eos % (Auto) 0.0 Baso % (Auto) 0.4 Neut # (Auto) 13.9 H Lymph # (Auto) 1.2 [place] # (Auto) 0.6 Eos # (Auto) 0.0 Baso # (Auto) 0.1 Neutrophils % (Manual) 89 H Band Neutrophils % 3 H Lymphocytes % (Manual) 5 L Monocytes % (Manual) 3 Platelet Estimate Normal Hypochromasia (manual) Slight Anisocytosis (manual) Slight pCO2 36 pO2 78 L HCO3 25.3 ABG pH 7.44 ABG Total CO2 25.6 ABG O2 Saturation 97.7 ABG O2 Content 14.3 L ABG Base Excess 0.5 ABG Hemoglobin 10.7 L ABG Carboxyhemoglobin 1.6 H POC ABG HHb (Measured) 2.2 ABG Methemoglobin 1.5 ABG O2 Capacity 14.6 L Frederic Test Yes A-a O2 Difference 305.0 Hgb O2 Saturation 94.7 L Vent Mode A/c Mechanical Rate 20 FiO2 60.0 Tidal Volume 450 PEEP 5 Sodium 146 Potassium 4.6 Chloride 117 H Carbon Dioxide 22 Anion Gap 12 BUN 85 H Creatinine 1.2 Est GFR ( Amer) 55 Est GFR (Non-Af Amer) 46 Random Glucose 114 H Calcium 7.3 L Microbiology 10/05/18 06:15 Blood Blood Culture - Final NO GROWTH AFTER 5 DAYS 10/05/18 06:15 Blood Gram Stain - Final TEST NOT PERFORMED 10/05/18 06:30 Blood Blood Culture - Final NO GROWTH AFTER 5 DAYS 10/05/18 06:30 Blood Gram Stain - Final TEST NOT PERFORMED 10/05/18 07:10 Urine,Hardwick Urine Culture - Final Yeast Species 09/25/18 12:10 Blood-Thru Central Line Blood Culture - Final NO GROWTH AFTER 5 DAYS 09/25/18 12:10 Blood-Thru Central Line Gram Stain - Final TEST NOT PERFORMED 09/20/18 14:00 Blood-Thru Central Line Blood Culture - Final NO GROWTH AFTER 5 DAYS 09/20/18 17:53 Trachasp Gram Stain - Final 09/20/18 17:53 Trachasp Sputum Culture - Final Yeast Species 09/20/18 17:53 Urine,[place]wick Urine Culture - Final No Growth (<1,000 CFU/ML) 09/15/18 15:35 Blood-Thru Central Line Blood Culture - Final NO GROWTH AFTER 5 DAYS 09/15/18 15:35 Blood-Thru Central Line Gram Stain - Final TEST NOT PERFORMED 09/15/18 15:25 Blood-Thru Central Line Blood Culture - Final NO GROWTH AFTER 5 DAYS 09/15/18 15:25 Blood-Thru Central Line Gram Stain - Final TEST NOT PERFORMED 09/08/18 11:49 Blood-Venous Blood Culture - Final NO GROWTH AFTER 5 DAYS 09/08/18 11:49 Blood-Venous Gram Stain - Final TEST NOT PERFORMED 09/08/18 11:49 Blood-Venous Blood Culture - Final NO GROWTH AFTER 5 DAYS 09/08/18 11:49 Blood-Venous Gram Stain - Final TEST NOT PERFORMED 09/07/18 Unknown Blood-Thru Central Line Blood Culture - Final NO GROWTH AFTER 5 DAYS 09/07/18 Unknown Blood-Thru Central Line Gram Stain - Final TEST NOT PERFORMED 09/07/18 Unknown Blood-Thru Central Line Blood Culture - Final NO GROWTH AFTER 5 DAYS 09/07/18 Unknown Blood-Thru Central Line Gram Stain - Final TEST NOT PERFORMED 09/07/18 09:07 Trachasp Gram Stain - Final 09/07/18 09:07 Trachasp Sputum Culture - Final Yeast Species 09/04/18 11:25 Naris MRSA Culture (Admit) - Final MRSA NOT DETECTED Accession No. : [id number] Patient Name / ID : RYLEE ONEIL / [id number] Exam Date : 10/12/2018 04:54:13 ( Approved ) Study Comment : Sex / Age : F / 58Y Creator : Mehdi Dorsey MD Dictator : Mehdi Dorsey MD Repairer [employer] Equipment : [employer] Plan Selling Distributor : Mehdi Dorsey MD Approver2 : Report Date : 10/12/2018 12:59:40 My Comment : Date of service: 10/12/2018 PROCEDURE: CHEST RADIOGRAPH, 1 VIEW HISTORY: trach COMPARISON: October 11, 2018. 04:28. FINDINGS: LUNGS: Persistent left lower lobe infiltrate. PLEURA: Left pleural effusion inseparable from adjacent consolidative change. CARDIOVASCULAR: No aortic atherosclerotic calcification present. No significant interval change compared to the prior examination(s). Venous access catheter in stable, satisfactory position. OSSEOUS STRUCTURES: No significant abnormalities. VISUALIZED UPPER ABDOMEN: Normal. OTHER FINDINGS: Stable, satisfactory position of tracheostomy device. Stable position nasogastric tube. IMPRESSION: No significant interval change compared to the prior examination(s). 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 remains unresponsive. remains on the vent afebrile today so far new onset leukocytosis CXR report left side large loculated effusion. continues to have anemia and thrombocytopenia blood cx- neg x 10 trach asp cx- yeast stool c.diff- negative repeat UA- negative repeat urine cx- yeast PLan- completed 14 days of empiric vanco. vanco resumed again since she is on the vent still and lung function not improving and she is immunosuppressed to cover for HAP empirically. keep vanco trough <15. was held past 2 days secondary to high trough. resume today. day #5 check trough in am advise to continue IV meropnem for broad spectrum gram negative coverage.day #31 continue with IV diflucan day #31 above abx and antifungal being continues sine pt. is immunecompromised and is on vent.( they are empiric). advise to replace hardwick to new one. prognosis poor. critical care time spent 30 minutes.
--- NOTE | 2018-10-12 13:05 | RAD ---
Date of service: 10/12/2018 PROCEDURE: CHEST RADIOGRAPH, 1 VIEW HISTORY: trach COMPARISON: October 11, 2018. 04:28. FINDINGS: LUNGS: Persistent left lower lobe infiltrate. PLEURA: Left pleural effusion inseparable from adjacent consolidative change. CARDIOVASCULAR: No aortic atherosclerotic calcification present. No significant interval change compared to the prior examination(s). Venous access catheter in stable, satisfactory position. OSSEOUS STRUCTURES: No significant abnormalities. VISUALIZED UPPER ABDOMEN: Normal. OTHER FINDINGS: Stable, satisfactory position of tracheostomy device. Stable position nasogastric tube. IMPRESSION: No significant interval change compared to the prior examination(s).
--- NOTE | 2018-10-12 14:03 | CP.CCUPN ---
CCU Subjective - Physician Review Subjective (Free Text): No overall change in neuromental status, s/p Trach and remains on MV support up to 60% oxygen, with SPO2 98%, no MV weans initiated to obtundation and vasopressor dependence. Previous skin rash changes have resolved, appears mildly hyperemic. Temp max 10.8F last 24H. SBPs 90s, significant tachycardia persists with HR 130s. Approx 1.9 liter positive fluid balance. ROS: No other pertinent negs or positive on 10+ system review obtainable due to lethargic status Other PMSFH: All other Nursing and physician documentation reviewed to date; no new pertinent info noted relevant to current medical problems. EXAM- HEENT: no icterus, pupils equal, 3 mm and reactive, no gaze preference, opens eyes briefly to pain, but sustained wakeful state NECK: no visible JVD, supple, carotids equal upstroke bilat/no bruits, trach stoma intact CHEST: decreased BS bases, no wheezes audible, bloody fluid drained dressing over R breast. Left chest portacath. HEART: regular, distant, tachy S1S2, no murmur audible, no rubs. ABD: soft, ++distention with ascites, no focal tenderness, BS hypoactive, dried necrotic lesion over umbilicus unchanged. Previous paracentesis puncture site still leaking ascitic fluid. EXT: + anasarca with +++ edema UEs and LEs, and arms +ulcer posterior R calf worse than L, no calf tenderness or palpable cords, distal pulses intact and symmetrical NEURO: withdraws to pain stimuli, + tone SKIN: no rashes LABS: WBC= 15.8 HGB= 10.2 PLTs = 141K 7.44/36/78 Na= 146 K= 4.6 Cl= 117 HCO3= 22 BUN/Cr= 85/1.2 BS= 114 CXR: (my interp)- TT position OK with tracheal air column, worsening Left basilar effusion with bilat compressed lung volumes due to ascites. IMPRESSION / MAJOR PROBLEMS NOW: 1. Acute hypoxemic Resp Failure, 2 bilat multi-lobar pneumonia 2. Persistent vaginal Bleeding 3. Severe Sepsis with shock, 2 Pneumonia, r/o bacteremia 4. Acute on Chronic disease Anemia 5. h/o DVT- bilat CFV on Feb 5. 6. s/p Paracentesis Feb 5 for 2.5 liters, and repeated Sep 7 for 3.6 liters. PLAN: 1. No blood products anticipated today. 2. MV support, unable to lower fio2 further. May need repeat Paracentesis. Do not think a PEG would be feasible. 3. Wean Norepinephrine as BP tolerates. Much Anasarca noted, do not suspect intravascular volume depletion now. Tachycardia 2' to chronic vasopressor dependency. Try steroids. Check lactate level. 4. Juan / Diflucan coverage. 5. No new Advance Directives from Mother, full aggressive care maintained as family requested. residential placement problematic due to inability to place a PEG.
--- NOTE | 2018-10-12 17:39 | CARD ---
APPROVED REPORT Date of service: 10/12/2018 EKG Measurement Heart [id number] <Conclusion> Sinus tachycardia Low voltage QRS Possible Anterolateral infarct, age undetermined Abnormal ECG
[2018-10-12] MEDS ORDERED: Hydrocortisone- 100 MG in Sodium Chloride 0.9% 100 ML IV SCH (21:00)
--- NOTE | 2018-10-12 22:23 | CP.PCM.PN ---
Subjective - Date & Time of Evaluation Date of Evaluation: 10/11/18 Time of Evaluation: 19:15 - Subjective Subjective: Seen and examined at the bed side. Patient continue to decline. Anasarca, continue to be intubated and unresponsive. NOK refused DNR/DNI and end of lefe care. Unstable to discharge as patient is on Pressors, and will need G-Tube to send her even to long Acute Care Facility. Patient is MOF, Septic and Cardiogenic shock with Severe Cardiomyopathy, Anemia, Thrombo-cytopenia, Active bleeding, Stage IV Malignancy and extensive rashes. S/P Tracheostomy. Objective - Vital Signs/Intake and Output Vital Signs (last 24 hours): Temp Pulse Resp BP Pulse Ox 99.5 F 130 H 22 90/54 L 93 L 10/12/18 21:00 10/12/18 21:00 10/12/18 21:00 10/12/18 21:00 10/12/18 21:00 Intake and Output: 10/12/18 10/13/18 18:59 06:59 Intake Total 1170 488 Output Total 200 Balance 970 488 - Medications Medications: Current Medications Allopurinol (Zyloprim) 100 mg NG DAILY [facility] Last Admin: 09/27/18 08:16 Dose: 100 mg Famotidine (Pepcid) 20 mg IVP Q12 [facility] Last Admin: 10/12/18 20:22 Dose: 20 mg Hydrocortisone Sodium Succinate (Solu-Cortef) 100 mg IVP Q12 [facility] Last Admin: 10/12/18 20:21 Dose: 100 mg Meropenem 1 gm/ Sodium (Chloride) 100 mls @ 100 mls/hr IVPB Q8 [facility]; Protocol Last Admin: 10/12/18 17:08 Dose: 100 mls/hr Fluconazole (Diflucan Iv 100 Mg/50 Ml Ns) 50 mls @ 50 mls/hr IVPB DAILY [facility]; Protocol Last Admin: 10/12/18 08:24 Dose: 50 mls/hr Norepinephrine Bitartrate 8 mg (/ Dextrose) 258 mls @ 4.84 mls/hr IV .Q24H ONE; Protocol Stop: 10/13/18 00:01 Last Titration: 10/12/18 19:00 Dose: 5 mcg/min, 9.68 mls/hr Vancomycin HCl 500 mg/ Sodium (Chloride) 100 mls @ 100 mls/hr IVPB Q12 [facility]; Protocol Last Admin: 10/12/18 20:21 Dose: 100 mls/hr Loratadine (Claritin) 10 mg PO DAILY [facility] Last Admin: 10/12/18 08:23 Dose: 10 mg - Labs Labs: 10/12/18 05:00 10/12/18 05:00 PT 14.9 Seconds (9.8-13.1) H 10/03/18 04:40 INR 1.3 10/03/18 04:40 APTT 26.7 Seconds (25.6-37.1) 10/03/18 04:40 Assessment and Plan (1) Septic shock Status: Acute (2) Multiple organ dysfunction syndrome Status: Acute (3) Acute respiratory failure with hypoxemia Status: Acute (4) Thrombocytopenia Status: Acute (5) Ascites, malignant Status: Acute (6) Congestive heart failure (CHF) Status: Acute (7) Stage IV breast cancer in female Status: Acute (8) Severe anemia Status: Resolved (9) DVT of lower extremity, bilateral Status: Chronic (10) Anasarca Status: Acute - Assessment and Plan (Free Text) Plan: Continue current care
--- NOTE | 2018-10-12 22:25 | CP.PCM.PN ---
Subjective - Date & Time of Evaluation Date of Evaluation: 10/12/18 Time of Evaluation: 22:15 - Subjective Subjective: Seen and examined at the bed side. No change in status. Continue to be on MV and pressor. S/P Tracheostomy. +++Anasarca Objective - Vital Signs/Intake and Output Vital Signs (last 24 hours): Temp Pulse Resp BP Pulse Ox 99.5 F 130 H 22 90/54 L 93 L 10/12/18 21:00 10/12/18 21:00 10/12/18 21:00 10/12/18 21:00 10/12/18 21:00 Intake and Output: 10/12/18 10/13/18 18:59 06:59 Intake Total 1170 488 Output Total 200 Balance 970 488 - Medications Medications: Current Medications Allopurinol (Zyloprim) 100 mg NG DAILY [facility] Last Admin: 09/27/18 08:16 Dose: 100 mg Famotidine (Pepcid) 20 mg IVP Q12 [facility] Last Admin: 10/12/18 20:22 Dose: 20 mg Hydrocortisone Sodium Succinate (Solu-Cortef) 100 mg IVP Q12 [facility] Last Admin: 10/12/18 20:21 Dose: 100 mg Meropenem 1 gm/ Sodium (Chloride) 100 mls @ 100 mls/hr IVPB Q8 [facility]; Protocol Last Admin: 10/12/18 17:08 Dose: 100 mls/hr Fluconazole (Diflucan Iv 100 Mg/50 Ml Ns) 50 mls @ 50 mls/hr IVPB DAILY [facility]; Protocol Last Admin: 10/12/18 08:24 Dose: 50 mls/hr Norepinephrine Bitartrate 8 mg (/ Dextrose) 258 mls @ 4.84 mls/hr IV .Q24H ONE; Protocol Stop: 10/13/18 00:01 Last Titration: 10/12/18 19:00 Dose: 5 mcg/min, 9.68 mls/hr Vancomycin HCl 500 mg/ Sodium (Chloride) 100 mls @ 100 mls/hr IVPB Q12 [facility]; Protocol Last Admin: 10/12/18 20:21 Dose: 100 mls/hr Loratadine (Claritin) 10 mg PO DAILY [facility] Last Admin: 10/12/18 08:23 Dose: 10 mg - Labs Labs: 10/12/18 05:00 10/12/18 05:00 PT 14.9 Seconds (9.8-13.1) H 10/03/18 04:40 INR 1.3 10/03/18 04:40 APTT 26.7 Seconds (25.6-37.1) 10/03/18 04:40 Assessment and Plan (1) Ascites, malignant Status: Acute (2) Acute respiratory failure with hypoxemia Status: Acute (3) Septic shock Status: Acute (4) Congestive heart failure (CHF) Status: Acute (5) Stage IV breast cancer in female Status: Acute (6) Severe anemia Status: Resolved (7) DVT of lower extremity, bilateral Status: Chronic (8) Thrombocytopenia Status: Acute - Assessment and Plan (Free Text) Plan: Continue Current Care Poor Prognosis Family Refusing Terminal Extubation.
--- NOTE | 2018-10-13 00:50 | CP.PCM.PN ---
Subjective - Date & Time of Evaluation Date of Evaluation: 10/12/18 Time of Evaluation: 13:00 - Subjective Subjective: Vented, mother at bedside. Objective - Vital Signs/Intake and Output Vital Signs (last 24 hours): Temp Pulse Resp BP Pulse Ox 98.8 F 121 H 20 106/55 L 94 L 10/12/18 23:00 10/12/18 23:00 10/12/18 23:00 10/12/18 23:00 10/12/18 23:00 Intake and Output: 10/12/18 10/13/18 18:59 06:59 Intake Total 1170 658 Output Total 200 Balance 970 658 - Medications Medications: Current Medications Allopurinol (Zyloprim) 100 mg NG DAILY [facility] Last Admin: 09/27/18 08:16 Dose: 100 mg Famotidine (Pepcid) 20 mg IVP Q12 [facility] Last Admin: 10/12/18 20:22 Dose: 20 mg Hydrocortisone Sodium Succinate (Solu-Cortef) 100 mg IVP Q12 [facility] Last Admin: 10/12/18 20:21 Dose: 100 mg Meropenem 1 gm/ Sodium (Chloride) 100 mls @ 100 mls/hr IVPB Q8 [facility]; Protocol Last Admin: 10/12/18 17:08 Dose: 100 mls/hr Fluconazole (Diflucan Iv 100 Mg/50 Ml Ns) 50 mls @ 50 mls/hr IVPB DAILY [facility]; Pr otocol Last Admin: 10/12/18 08:24 Dose: 50 mls/hr Vancomycin HCl 500 mg/ Sodium (Chloride) 100 mls @ 100 mls/hr IVPB Q12 [facility]; Protocol Last Admin: 10/12/18 20:21 Dose: 100 mls/hr Loratadine (Claritin) 10 mg PO DAILY [facility] Last Admin: 10/12/18 08:23 Dose: 10 mg - Labs Labs: 10/12/18 05:00 10/12/18 05:00 PT 14.9 Seconds (9.8-13.1) H 10/03/18 04:40 INR 1.3 10/03/18 04:40 APTT 26.7 Seconds (25.6-37.1) 10/03/18 04:40 - Head Exam Head Exam: ATRAUMATIC - Eye Exam Eye Exam: Normal appearance - ENT Exam ENT Exam: Mucous Membranes Dry - Respiratory Exam Respiratory Exam: Decreased Breath Sounds - Cardiovascular Exam Cardiovascular Exam: +S1, +S2 - GI/Abdominal Exam GI & Abdominal Exam: Normal Bowel Sounds Assessment and Plan (1) Anemia Assessment & Plan: anemia of chronic disease [employer] blood loss transfusion support 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
[2018-10-13] MEDS: Meropenem 1 GM in Sodium Chloride 0.9% 100 ML IVPB SCH ×3 (01:10→16:19)
[2018-10-13 05:03] LABS: ABG ALLEN TEST YES; ARTERIAL BLOOD GAS HCO3 23.3 mmol/L (21-28); ARTERIAL BLOOD GAS HEMOGLOBIN 10.6 g/dL (11.7-17.4); ARTERIAL BLOOD GAS O2 CAPACITY 14.5 mL/dL (16-24); ARTERIAL BLOOD GAS O2 CONTENT 14.1 ML/dL (15-23); ARTERIAL BLOOD GAS PCO2 35 mm/Hg (35-45); ARTERIAL BLOOD GAS PH 7.41 (7.35-7.45); ARTERIAL BLOOD GAS PO2 74 mm/Hg (80-100); ARTERIAL BLOOD GAS TCO2 23.3 mmol/L (22-28)
[2018-10-13 06:10] LABS: ALB/GLOB RATIO 0.7 (1.0-2.1); ALBUMIN 2.4 g/dL (3.5-5.0); CALCIUM 7.5 mg/dL (8.4-10.2)
[2018-10-13 06:25] LABS: BASO % 0.1 % (0.0-2.0); HEMOGLOBIN 10.6 g/dL (12.0-16.0); LYMPH # 1.3 K/uL (1.0-4.3); LYMPH % 7.1 % (20.0-40.0); MEAN CELL VOLUME 92.3 fl (81.0-99.0); MEAN CORPUSCULAR HEMOGLOBIN 29.7 pg (27.0-31.0); MEAN CORPUSCULAR HGB CONC 32.2 g/dL (33.0-37.0); MEAN PLATELET VOLUME 11.3 fl (7.2-11.7); MONO # 0.5 K/uL (0.0-0.8); MONO % 2.8 % (0.0-10.0); NEUT # 16.2 K/uL (1.8-7.0); RBC 3.58 Mil/uL (3.80-5.20)
[2018-10-13] MEDS: Fluconazole IV 100mg/50 ml NS 50 ML IVPB SCH (08:18)
--- NOTE | 2018-10-13 09:35 | RAD ---
Date of service: 10/13/2018 HISTORY: patient is intubated COMPARISON: Comparison chest dated 10/12/2018 FINDINGS: In situ tracheostomy tube in position. Left IJ MediPort with tip in the SVC unchanged. In situ NGT in good position left mid abdomen. LUNGS: Near complete opacification left hemithorax consistent with large effusion probably some concomitant atelectasis and or infiltrate. Right basilar atelectasis and suspected small right-sided effusion. PLEURA: As above. No pneumothorax apparent. CARDIOVASCULAR: No aortic atherosclerotic calcification present. Heart size difficult to assess due to silhouetting left cardiac border. OSSEOUS STRUCTURES: No significant abnormalities. VISUALIZED UPPER ABDOMEN: Normal. OTHER FINDINGS: None. IMPRESSION: Support lines and tubes as above. Near complete opacification left hemithorax as above.. Right basilar atelectasis with suspected small right effusion
--- NOTE | 2018-10-13 10:13 | CP.CCUPN ---
CCU Subjective - Physician Review Subjective (Free Text): No overall change in neuromental status, s/p Trach and remains on MV support up to 60% oxygen, with SPO2 98%, no MV weans initiated to obtundation and vasopressor dependence, but she did tolerate spont breathing with RR 16 on CPAP 5 PS 20 for a few minutes. Previous skin rash changes have resolved, hyperemic facies persist. No fever spikes last 24H. SBPs 90s, less tachycardia today with HR 100s. Approx 1.5 liter positive fluid balance. ROS: No other pertinent negs or positive on 10+ system review obtainable due to lethargic status Other PMSFH: All other Nursing and physician documentation reviewed to date; no new pertinent info noted relevant to current medical problems. EXAM- HEENT: no icterus, pupils equal, 3 mm and reactive, no gaze preference, opens eyes briefly to pain, but sustained wakeful state NECK: no visible JVD, supple, carotids equal upstroke bilat/no bruits, trach stoma intact CHEST: decreased BS bases, no wheezes audible, bloody fluid drained dressing over R breast. Left chest portacath. HEART: regular, distant, tachy S1S2, no murmur audible, no rubs. ABD: soft, ++distention with ascites, no focal tenderness, BS hypoactive, dried necrotic lesion over umbilicus unchanged. Previous paracentesis puncture site still leaking ascitic fluid. EXT: + anasarca with +++ edema UEs and LEs, and arms +ulcer posterior R calf worse than L, no calf tenderness or palpable cords, distal pulses intact and symmetrical NEURO: withdraws to pain stimuli, + tone SKIN: no rashes LABS: WBC= 18.0 HGB= 10.6 PLTs = 152K 7.41/35/74 Na= 143 K= 4.7 Cl= 112 HCO3= 23 BUN/Cr= 92/1.5 BS= 124 CXR: (my interp)- TT position OK with tracheal air column, continued worsening of Left basilar effusion with bilat compressed lung volumes due to ascites. IMPRESSION / MAJOR PROBLEMS NOW: 1. Acute hypoxemic Resp Failure, 2 bilat multi-lobar pneumonia 2. Persistent vaginal Bleeding 3. Severe Sepsis with shock, 2 Pneumonia, r/o bacteremia 4. Acute on Chronic disease Anemia 5. h/o DVT- bilat CFV on 5. 6. s/p Paracentesis Fe 5 for 2.5 liters, and repeated Sep 7 for 3.6 liters. PLAN: 1. Consider IR eval for thoracentesis and repeat paracentesis. 2. No blood product need anticipated today. HGB stable, Platelets continue to slowly improve daily. BUN elevation mat be due to recent steroids versus occult GI blood. 3. MV support, unable to lower fio2 further given low normal PO2. 4. Wean Norepinephrine as BP tolerates. Much Anasarca noted, do not suspect intravascular volume depletion now. Tachycardia 2' to chronic vasopressor dependency. Trial steroids. Check lactate level. 5. Completed full course of abx and antifngal coverage as directed by ID.
--- NOTE | 2018-10-13 12:23 | CP.PCM.PN ---
Subjective - Date & Time of Evaluation Date of Evaluation: 10/13/18 Time of Evaluation: 12:22 - Subjective Subjective: ID Note- Pt. seen and examined today with her mother at her bedside. Pt. awake today and opened her eyes when name called. afebrile. still on low dose levophed as per nurse. Objective - Vital Signs/Intake and Output Vital Signs (last 24 hours): Temp Pulse Resp BP Pulse Ox 97.6 F 115 H 20 90/52 L 96 10/13/18 08:00 10/13/18 11:00 10/13/18 11:00 10/13/18 11:00 10/13/18 11:00 Intake and Output: 10/13/18 10/13/18 06:59 18:59 Intake Total 1263 450 Output Total 650 Balance 613 450 - Medications Medications: Current Medications Allopurinol (Zyloprim) 100 mg NG DAILY [facility] Last Admin: 09/27/18 08:16 Dose: 100 mg Famotidine (Pepcid) 20 mg IVP Q12 [facility] Last Admin: 10/13/18 08:15 Dose: 20 mg Hydrocortisone Sodium Succinate (Solu-Cortef) 100 mg IVP Q12 [facility] Last Admin: 10/13/18 08:16 Dose: 100 mg Meropenem 1 gm/ Sodium (Chloride) 100 mls @ 100 mls/hr IVPB Q8 [facility]; Protocol Last Admin: 10/13/18 08:13 Dose: 100 mls/hr Fluconazole (Diflucan Iv 100 Mg/50 Ml Ns) 50 mls @ 50 mls/hr IVPB DAILY [facility]; Protocol Last Admin: 10/13/18 08:18 Dose: 50 mls/hr Vancomycin HCl 500 mg/ Sodium (Chloride) 100 mls @ 100 mls/hr IVPB Q12 [facility]; Protocol Last Admin: 10/13/18 08:16 Dose: 100 mls/hr Norepinephrine Bitartrate 8 mg (/ Dextrose) 258 mls @ 9.68 mls/hr IV .Q24H ONE; Protocol Stop: 10/14/18 02:59 Last Titration: 10/13/18 05:17 Dose: 7.5 mcg/min, 14.51 mls/hr Loratadine (Claritin) 10 mg PO DAILY [facility] Last Admin: 10/13/18 08:11 Dose: 10 mg - Labs Labs: - Additional Findings Additional findings: - Constitutional Appears: Chronically Ill Additional comments: - Eye Exam Eye Exam: PERRL - ENT Exam Additional comments: s/p trache - Respiratory Exam Additional comments: On the vent via Trach - Cardiovascular Exam Cardiovascular Exam: Tachycardia, +S1, +S2 - GI/Abdominal Exam Additional comments: distended hypoactive BS umbilical region with mass like lesion with denuded skin , no pus + ascites - Extremities Exam Additional comments: b/l 2+ edema in LE and UE - Neurological Exam Additional comments: opens eyes when her name is called and more awake today Laboratory Results - last 72 hr 10/11/18 10/11/18 10/11/18 04:07 05:05 05:05 WBC 12.7 H RBC 3.27 L Hgb 9.8 L Hct 30.0 L MCV 91.7 MCH 29.9 MCHC 32.7 L RDW 16.8 H Plt Count 128 L MPV Neut % (Auto) Lymph % (Auto) Pierce % (Auto) Eos % (Auto) Baso % (Auto) Neut # (Auto) Lymph # (Auto) Pierce # (Auto) Eos # (Auto) Baso # (Auto) Total Counted Neutrophils % (Manual) Band Neutrophils % Lymphocytes % (Manual) Reactive Lymphs % Monocytes % (Manual) Eosinophils % (Manual) Basophils % (Manual) Metamyelocytes % Myelocytes % Promyelocytes % Blast Cells % Plasma Cell % (Manual) Nucleated RBC % Hypersegmented Polys Smudge Cells Toxic Granulation Dohle Bodies Devorah Rods Platelet Estimate Plt Clumps, EDTA Large Platelets Giant Platelets RBC Morphology Polychromasia Hypochromasia (manual) Poikilocytosis (manual Basophilic Stippling Anisocytosis (manual) Microcytosis (manual) Macrocytosis (manual) Spherocytes Sickle Cells Target Cells Tear Drop Cells Ovalocytes Stomatocytes Helmet Cells Gaona-What Cheer Bodies [place] Cells Acanthocytes (Spur) Rouleaux Schistocytes pCO2 35 pO2 79 L HCO3 26.4 ABG pH 7.47 H ABG Total CO2 26.6 ABG O2 Saturation 98.6 H ABG O2 Content 13.5 L ABG Base Excess 1.9 ABG Hemoglobin 10.0 L ABG Carboxyhemoglobin 1.8 H POC ABG HHb (Measured) 1.4 ABG Methemoglobin 1.3 ABG O2 Capacity 13.7 L Frederic Test Yes A-a O2 Difference 305.0 Hgb O2 Saturation 95.4 Vent Mode A/c Mechanical Rate 20 FiO2 60.0 Tidal Volume 450 PEEP 5 Sodium 147 Potassium 4.0 Chloride 109 H Carbon Dioxide 24 Anion Gap 18 BUN 78 H Creatinine 1.2 Est GFR ( Amer) 55 Est GFR (Non-Af Amer) 46 Random Glucose 120 H Calcium 7.9 L Phosphorus Magnesium Total Bilirubin AST ALT Alkaline Phosphatase Total Protein Albumin Globulin Albumin/Globulin Ratio Vancomycin Trough 10/12/18 10/12/18 10/12/18 04:24 05:00 05:00 WBC 15.8 H RBC 3.43 L Hgb 10.2 L Hct 31.9 L MCV 93.1 MCH 29.6 MCHC 31.8 L RDW 16.6 H Plt Count 141 MPV 11.2 Neut % (Auto) 88.4 H Lymph % (Auto) 7.7 L Pierce % (Auto) 3.5 Eos % (Auto) 0.0 Baso % (Auto) 0.4 Neut # (Auto) 13.9 H Lymph # (Auto) 1.2 Pierce # (Auto) 0.6 Eos # (Auto) 0.0 Baso # (Auto) 0.1 Total Counted Neutrophils % (Manual) 89 H Band Neutrophils % 3 H Lymphocytes % (Manual) 5 L Reactive Lymphs % Monocytes % (Manual) 3 Eosinophils % (Manual) Basophils % (Manual) Metamyelocytes % Myelocytes % Promyelocytes % Blast Cells % Plasma Cell % (Manual) Nucleated RBC % Hypersegmented Polys Smudge Cells Toxic Granulation Dohle Bodies Devorah Rods Platelet Estimate Normal Plt Clumps, EDTA Large Platelets Giant Platelets RBC Morphology Polychromasia Hypochromasia (manual) Slight Poikilocytosis (manual Basophilic Stippling Anisocytosis (manual) Slight Microcytosis (manual) Macrocytosis (manual) Spherocytes Sickle Cells Target Cells Tear Drop Cells Ovalocytes Stomatocytes Helmet Cells Ga[place]er Bodies [place] Cells Acanthocytes (Spur) Rouleaux Schistocytes pCO2 36 pO2 78 L HCO3 25.3 ABG pH 7.44 ABG Total CO2 25.6 ABG O2 Saturation 97.7 ABG O2 Content 14.3 L ABG Base Excess 0.5 ABG Hemoglobin 10.7 L ABG Carboxyhemoglobin 1.6 H POC ABG HHb (Measured) 2.2 ABG Methemoglobin 1.5 ABG O2 Capacity 14.6 L Frederic Test Yes A-a O2 Difference 305.0 Hgb O2 Saturation 94.7 L Vent Mode A/c Mechanical Rate 20 FiO2 60.0 Tidal Volume 450 PEEP 5 Sodium 146 Potassium 4.6 Chloride 117 H Carbon Dioxide 22 Anion Gap 12 BUN 85 H Creatinine 1.2 Est GFR ( Amer) 55 Est GFR (Non-Af Amer) 46 Random Glucose 114 H Calcium 7.3 L Phosphorus Magnesium Total Bilirubin AST ALT Alkaline Phosphatase Total Protein Albumin Globulin Albumin/Globulin Ratio Vancomycin Trough 10/13/18 10/13/18 10/13/18 04:57 05:20 05:20 WBC 18.0 H RBC 3.58 L Hgb 10.6 L Hct 33.1 L MCV 92.3 MCH 29.7 MCHC 32.2 L RDW 17.0 H Plt Count 152 MPV 11.3 Neut % (Auto) 90.0 H Lymph % (Auto) 7.1 L Pierce % (Auto) 2.8 Eos % (Auto) 0.0 Baso % (Auto) 0.1 Neut # (Auto) 16.2 H Lymph # (Auto) 1.3 Pierce # (Auto) 0.5 Eos # (Auto) 0.0 Baso # (Auto) 0.0 Total Counted Cancelled Neutrophils % (Manual) Cancelled Band Neutrophils % Cancelled Lymphocytes % (Manual) Cancelled Reactive Lymphs % Cancelled Monocytes % (Manual) Cancelled Eosinophils % (Manual) Cancelled Basophils % (Manual) Cancelled Metamyelocytes % Cancelled Myelocytes % Cancelled Promyelocytes % Cancelled Blast Cells % Cancelled Plasma Cell % (Manual) Cancelled Nucleated RBC % Cancelled Hypersegmented Polys Cancelled Smudge Cells Cancelled Toxic Granulation Cancelled Dohle Bodies Cancelled Devorah Rods Cancelled Platelet Estimate Cancelled Plt Clumps, EDTA Cancelled Large Platelets Cancelled Giant Platelets Cancelled RBC Morphology Cancelled Polychromasia Cancelled Hypochromasia (manual) Cancelled Poikilocytosis (manual Cancelled Basophilic Stippling Cancelled Anisocytosis (manual) Cancelled Microcytosis (manual) Cancelled Macrocytosis (manual) Cancelled Spherocytes Cancelled Sickle Cells Cancelled Target Cells Cancelled Tear Drop Cells Cancelled Ovalocytes Cancelled Stomatocytes Cancelled Helmet Cells Cancelled Gaona-What Cheer Bodies Cancelled Naina Cells Cancelled Acanthocytes (Spur) Cancelled Rouleaux Cancelled Schistocytes Cancelled pCO2 35 pO2 74 L HCO3 23.3 ABG pH 7.41 ABG Total CO2 23.3 ABG O2 Saturation 97.0 ABG O2 Content 14.1 L ABG Base Excess -2.0 ABG Hemoglobin 10.6 L ABG Carboxyhemoglobin 1.8 H POC ABG HHb (Measured) 2.9 ABG Methemoglobin 1.4 ABG O2 Capacity 14.5 L Frederic Test Yes A-a O2 Difference 310.0 Hgb O2 Saturation 93.8 L Vent Mode A/c Mechanical Rate 20 FiO2 60.0 Tidal Volume 450 PEEP 5 Sodium 143 Potassium 4.7 Chloride 112 H Carbon Dioxide 23 Anion Gap 13 BUN 92 H Creatinine 1.5 H Est GFR ( Amer) 43 Est GFR (Non-Af Amer) 35 Random Glucose 124 H Calcium 7.5 L Phosphorus 8.1 H Magnesium 2.7 H Total Bilirubin 0.8 AST 17 ALT 23 Alkaline Phosphatase 74 Total Protein 5.6 L Albumin 2.4 L D Globulin 3.2 Albumin/Globulin Ratio 0.7 L Vancomycin Trough 10/13/18 08:25 WBC RBC Hgb Hct MCV MCH MCHC RDW Plt Count MPV Neut % (Auto) Lymph % (Auto) Pierce % (Auto) Eos % (Auto) Baso % (Auto) Neut # (Auto) Lymph # (Auto) Pierce # (Auto) Eos # (Auto) Baso # (Auto) Total Counted Neutrophils % (Manual) Band Neutrophils % Lymphocytes % (Manual) Reactive Lymphs % Monocytes % (Manual) Eosinophils % (Manual) Basophils % (Manual) Metamyelocytes % Myelocytes % Promyelocytes % Blast Cells % Plasma Cell % (Manual) Nucleated RBC % Hypersegmented Polys Smudge Cells Toxic Granulation Dohle Bodies Devorah Rods Platelet Estimate Plt Clumps, EDTA Large Platelets Giant Platelets RBC Morphology Polychromasia Hypochromasia (manual) Poikilocytosis (manual Basophilic Stippling Anisocytosis (manual) Microcytosis (manual) Macrocytosis (manual) Spherocytes Sickle Cells Target Cells Tear Drop Cells Ovalocytes Stomatocytes Helmet Cells Ga[place]er Bodies Naina Cells Acanthocytes (Spur) Rouleaux Schistocytes pCO2 pO2 HCO3 ABG pH ABG Total CO2 ABG O2 Saturation ABG O2 Content ABG Base Excess ABG Hemoglobin ABG Carboxyhemoglobin POC ABG HHb (Measured) ABG Methemoglobin ABG O2 Capacity Frederic Test A-a O2 Difference Hgb O2 Saturation Vent Mode Mechanical Rate FiO2 Tidal Volume PEEP Sodium Potassium Chloride Carbon Dioxide Anion Gap BUN Creatinine Est GFR ( Amer) Est GFR (Non-Af Amer) Random Glucose Calcium Phosphorus Magnesium Total Bilirubin AST ALT Alkaline Phosphatase Total Protein Albumin Globulin Albumin/Globulin Ratio Vancomycin Trough 17.5 H Microbiology 10/05/18 06:15 Blood Blood Culture - Final NO GROWTH AFTER 5 DAYS 10/05/18 06:15 Blood Gram Stain - Final TEST NOT PERFORMED 10/05/18 06:30 Blood Blood Culture - Final NO GROWTH AFTER 5 DAYS 10/05/18 06:30 Blood Gram Stain - Final TEST NOT PERFORMED 10/05/18 07:10 Urine,Hardwick Urine Culture - Final Yeast Species 09/25/18 12:10 Blood-Thru Central Line Blood Culture - Final NO GROWTH AFTER 5 DAYS 09/25/18 12:10 Blood-Thru Central Line Gram Stain - Final TEST NOT PERFORMED 09/20/18 14:00 Blood-Thru Central Line Blood Culture - Final NO GROWTH AFTER 5 DAYS 09/20/18 17:53 Trachasp Gram Stain - Final 09/20/18 17:53 Trachasp Sputum Culture - Final Yeast Species 09/20/18 17:53 Urine,Hardwick Urine Culture - Final No Growth (<1,000 CFU/ML) 09/15/18 15:35 Blood-Thru Central Line Blood Culture - Final NO GROWTH AFTER 5 DAYS 09/15/18 15:35 Blood-Thru Central Line Gram Stain - Final TEST NOT PERFORMED 09/15/18 15:25 Blood-Thru Central Line Blood Culture - Final NO GROWTH AFTER 5 DAYS 09/15/18 15:25 Blood-Thru Central Line Gram Stain - Final TEST NOT PERFORMED 09/08/18 11:49 Blood-Venous Blood Culture - Final NO GROWTH AFTER 5 DAYS 09/08/18 11:49 Blood-Venous Gram Stain - Final TEST NOT PERFORMED 09/08/18 11:49 Blood-Venous Blood Culture - Final NO GROWTH AFTER 5 DAYS 09/08/18 11:49 Blood-Venous Gram Stain - Final TEST NOT PERFORMED 09/07/18 Unknown Blood-Thru Central Line Blood Culture - Final NO GROWTH AFTER 5 DAYS 09/07/18 Unknown Blood-Thru Central Line Gram Stain - Final TEST NOT PERFORMED 09/07/18 Unknown Blood-Thru Central Line Blood Culture - Final NO GROWTH AFTER 5 DAYS 09/07/18 Unknown Blood-Thru Central Line Gram Stain - Final TEST NOT PERFORMED 09/07/18 09:07 Trachasp Gram Stain - Final 09/07/18 09:07 Trachasp Sputum Culture - Final Yeast Species 09/04/18 11:25 Naris MRSA Culture (Admit) - Final MRSA NOT DETECTED Assessment and Plan (1) Acute respiratory failure with hypoxemia Status: Acute (2) Anemia Status: Acute (3) Breast CA Status: Acute (4) Tumor lysis syndrome Status: Acute (5) Thrombocytopenia Status: Acute (6) DVT of lower extremity, bilateral Status: Chronic (7) Adnexal mass Status: Acute - Assessment and Plan (Free Text) Assessment: /P- 58 year old female with stage 4 metastatic inflammatory breast cancer with 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 remains unresponsive. remains on the vent afebrile today so far new onset leukocytosis for past 3 days CXR report left side large loculated effusion. continues to have anemia and thrombocytopenia blood cx- neg x 10 trach asp cx- yeast stool c.diff- negative repeat UA- negative repeat urine cx- yeast PLan- completed 14 days of empiric vanco. vanco resumed again since she is on the vent still and lung function not improving and she is immunosuppressed to cover for HAP empirically. keep vanco trough <15. day #6 check trough in am advise to continue IV meropnem for broad spectrum gram negative coverage.day #32 continue with IV diflucan day #32 above abx and antifungal being continues sine pt. is immunecompromised and is on vent.( they are empiric). advise to replace hardwick to new one. may need thoracentheis. prognosis poor. critical care time spent 30 minutes.
--- NOTE | 2018-10-13 16:12 | CP.PCM.PN ---
Subjective - Date & Time of Evaluation Date of Evaluation: 10/13/18 Time of Evaluation: 14:05 - Subjective Subjective: Seen and examined at the bed side. Patient continue to decline. Anasarca, continue to be intubated and unresponsive. NOK refused DNR/DNI and end of lefe care. Unstable to discharge as patient is on Pressors, and will need G-Tube to send her even to long Acute Care Facility. Patient is MOF, Septic and Cardiogenic shock with Severe Cardiomyopathy, Anemia, Thrombo-cytopenia, Active bleeding, Stage IV Malignancy and extensive rashes. S/P Tracheostomy. Objective - Vital Signs/Intake and Output Vital Signs (last 24 hours): Temp Pulse Resp BP Pulse Ox 97.9 F 109 H 20 102/58 L 96 10/13/18 12:00 10/13/18 12:00 10/13/18 12:00 10/13/18 12:00 10/13/18 12:00 Intake and Output: 10/13/18 10/13/18 06:59 18:59 Intake Total 1263 450 Output Total 650 Balance 613 450 - Medications Medications: Current Medications Allopurinol (Zyloprim) 100 mg NG DAILY [facility] Last Admin: 09/27/18 08:16 Dose: 100 mg Famotidine (Pepcid) 20 mg IVP Q12 [facility] Last Admin: 10/13/18 08:15 Dose: 20 mg Hydrocortisone Sodium Succinate (Solu-Cortef) 100 mg IVP Q12 [facility] Last Admin: 10/13/18 08:16 Dose: 100 mg Meropenem 1 gm/ Sodium (Chloride) 100 mls @ 100 mls/hr IVPB Q8 [facility]; Protocol Last Admin: 10/13/18 08:13 Dose: 100 mls/hr Fluconazole (Diflucan Iv 100 Mg/50 Ml Ns) 50 mls @ 50 mls/hr IVPB DAILY [facility]; Protocol Last Admin: 10/13/18 08:18 Dose: 50 mls/hr Vancomycin HCl 500 mg/ Sodium (Chloride) 100 mls @ 100 mls/hr IVPB Q12 [facility]; Protocol Last Admin: 10/13/18 08:16 Dose: 100 mls/hr Norepinephrine Bitartrate 8 mg (/ Dextrose) 258 mls @ 9.68 mls/hr IV .Q24H ONE; Protocol Stop: 10/14/18 02:59 Last Titration: 10/13/18 05:17 Dose: 7.5 mcg/min, 14.51 mls/hr Loratadine (Claritin) 10 mg PO DAILY [facility] Last Admin: 10/13/18 08:11 Dose: 10 mg - Labs Labs: 10/13/18 05:20 10/13/18 05:20 PT 14.9 Seconds (9.8-13.1) H 10/03/18 04:40 INR 1.3 10/03/18 04:40 APTT 26.7 Seconds (25.6-37.1) 10/03/18 04:40 Assessment and Plan (1) Septic shock Status: Acute (2) Multiple organ dysfunction syndrome Status: Acute (3) Acute respiratory failure with hypoxemia Status: Acute (4) Thrombocytopenia Status: Acute (5) Ascites, malignant Status: Acute (6) Congestive heart failure (CHF) Status: Acute (7) Stage IV breast cancer in female Status: Acute (8) Severe anemia Status: Resolved (9) DVT of lower extremity, bilateral Status: Chronic (10) Anasarca Status: Acute - Assessment and Plan (Free Text) Plan: C/w Current Care Poor Prognosis
[2018-10-14] MEDS: Meropenem 1 GM in Sodium Chloride 0.9% 100 ML IVPB SCH ×3 (00:40→17:15)
[2018-10-14 04:33] LABS: ABG ALLEN TEST YES; ARTERIAL BLOOD GAS HCO3 23.7 mmol/L (21-28); ARTERIAL BLOOD GAS HEMOGLOBIN 10.4 g/dL (11.7-17.4); ARTERIAL BLOOD GAS O2 CAPACITY 14.3 mL/dL (16-24); ARTERIAL BLOOD GAS O2 CONTENT 14.1 ML/dL (15-23); ARTERIAL BLOOD GAS O2 SAT 98.9 % (95-98); ARTERIAL BLOOD GAS PCO2 36 mm/Hg (35-45); ARTERIAL BLOOD GAS PH 7.41 (7.35-7.45); ARTERIAL BLOOD GAS PO2 88 mm/Hg (80-100); ARTERIAL BLOOD GAS TCO2 23.9 mmol/L (22-28)
[2018-10-14 06:17] LABS: BASO # 0.1 K/uL (0.0-0.2); BASO % 0.4 % (0.0-2.0); HEMOGLOBIN 10.2 g/dL (12.0-16.0); LYMPH # 0.9 K/uL (1.0-4.3); LYMPH % 4.4 % (20.0-40.0); MEAN CORPUSCULAR HEMOGLOBIN 30.3 pg (27.0-31.0); MEAN PLATELET VOLUME 11.6 fl (7.2-11.7); MONO # 0.5 K/uL (0.0-0.8); MONO % 2.5 % (0.0-10.0); NEUT # 19.6 K/uL (1.8-7.0); NEUT % 92.7 % (50.0-75.0); PLATELET COUNT 189 K/uL (130-400); RBC 3.36 Mil/uL (3.80-5.20); RED CELL DISTRIBUTION WIDTH 17.1 % (11.5-14.5); WHITE BLOOD COUNT 21.1 K/uL (4.8-10.8)
[2018-10-14 06:48] LABS: CALCIUM 7.5 mg/dL (8.4-10.2)
[2018-10-14 08:08] LABS: BANDS 2 % (0-2); LYMPHOCYTE 5 % (20-50); MONOCYTE 2 % (0-10); NEUTROPHIL 91 % (42-75); TOTAL CELLS COUNTED 100
[2018-10-14 08:09] LABS: PLATELET ESTIMATE NORMAL (NORMAL)
[2018-10-14 08:10] LABS: ANISOCYTOSIS SLIGHT; HYPOCHROMIC SLIGHT
[2018-10-14 08:11] LABS: LARGE PLATELETS PRESENT
[2018-10-14] MEDS: Fluconazole IV 100mg/50 ml NS 50 ML IVPB SCH (10:02)
--- NOTE | 2018-10-14 10:28 | RAD ---
Date of service: 10/14/2018 HISTORY: trach COMPARISON: Comparison chest 10/13/2018 TECHNIQUE: 1 view obtained. FINDINGS: In situ tracheostomy tube in good position.. In situ NGT, tip of which has not been included on this radiograph though distal aspect does lie well below EG junction. No change left-sided MediPort LUNGS: Subtotal opacification left hemithorax slightly improved from prior exam consistent with large effusion and presumed atelectasis and/or infiltrate. Mild right basilar atelectasis with small right-sided effusion. Central pulmonary vasculature also appears congested. PLEURA: Central pulmonary vasculature no significant pleural effusion identified, no pneumothorax apparent. CARDIOVASCULAR: No aortic atherosclerotic calcification present. Heart size difficult to assess due to silhouetting OSSEOUS STRUCTURES: No significant abnormalities. VISUALIZED UPPER ABDOMEN: Normal. OTHER FINDINGS: None. IMPRESSION: Support lines and tubes as above. Subtotal opacification left hemithorax slightly improved from prior exam consistent with large effusion and presumed atelectasis and/or infiltrate. Mild right basilar atelectasis with small right-sided effusion. Central pulmonary vasculature also appears congested.
--- NOTE | 2018-10-14 16:40 | PN ---
DATE: 10/14/2018 CRITICAL CARE PROGRESS NOTE LOCATION: The patient in ICU, bed 431. TIME SPENT: 35 minutes. SUBJECTIVE: The patient is seen and evaluated at the bedside. Past medical, surgical, family and social history reviewed. A 58-year-old female with malignant mixed mullerian tumor, malignant pleural effusion, right malignant ascites, peritoneal carcinomatosis, status post transfusion, multiple units of blood products status post tracheostomy, awaiting for PEG placement. PHYSICAL EXAMINATION: VITAL SIGNS: Overnight afebrile, T-max 97, heart rate 108, respiratory rate 20, blood pressure 104/56, saturation 97%, vent setting on AC/PRVC rate 20, tidal volume 450, FiO2 of 60%, PEEP 5, observed rate 20, observed tidal volume 390, minute ventilation 7.6 liters, peak airway pressure 30, and end-tidal CO2 of 29. Intake 2814.75 and output 625. HEAD, EYES, EARS, NOSE AND THROAT: Pupils reactive. Conjunctivae pale. Sclerae white. Oral mucosa moist. Tracheostomy site clean. No soaking. CHEST: Bilateral breath sounds diminished in intensity. HEART: Rhythm regular. S1 and S2 normal. No audible murmur. ABDOMEN: Distended. Bowel sounds present, diminished. No appreciable tenderness. EXTREMITIES: Upper extremity with dependent edema. Lower extremity with dependent edema. SKIN: Warm to touch. DP palpable, reduced in intensity. NEUROLOGICAL: Remains lethargic. Orellana in place, draining muddy urine, Flexi-Seal in place. CURRENT MEDICATIONS: Include Zyloprim 100 mg NG daily, Pepcid 20 mg IV every 12 hours, fluconazole 100 mg IV daily, hydrocortisone 100 mg IV every 12 hours, Claritin 10 mg p.o. daily, meropenem 1 g IV every 8 hours, and Levophed at 2.5 mcg per minute. LABORATORY DATA: WBC 21.1, hemoglobin 10.2, hematocrit 30.9, and platelet count 189. Neutrophils 92.7, lymphocytes 4.4, monocytes 2.5. PT 14.9, INR 1.3, PTT 26.7. ABG; pH of 7.41, pCO2 of 36, pO2 of 88, saturation 95.9%. SMA-7: Sodium 144, potassium 4.6, chloride 113, CO2 of 21, blood urea nitrogen 97, creatinine 1.5, random glucose 128, and calcium 7.5. Vanco trough level 18.5. Serology; C. diff negative. 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 1. Neurological: Very lethargic, but arousable. No sedation. 2. Pulmonary: Ventilator dependent, hypoxic respiratory failure, bilateral pleural effusion with pulmonary vascular congestion, status post tracheostomy, not weanable candidate secondary to accumulating pleural effusion, recurring ascites and poor mental status. 3. Cardiovascular: Blood pressure low, maintained on Levophed with maybe 65 or above. 4. Hematology: Thrombocytopenia, improved status post multiple transfusion of blood products. 5. Renal: Oliguria. 6. Gastrointestinal: Nothing by mouth. Continue PermCath free water. 7. Infectious Disease: Status post multilobar pneumonia, urinary tract infection, on meropenem and fluconazole; for vent-associated pneumonia, vancomycin on hold due to high trough level. 8. Deep venous thrombosis prophylaxis: Sequential compression device in place. Anticoagulation on hold secondary to high risk of bleeding. 9. Gastrointestinal prophylaxis: Orellana in place for adequate urine intake and output. Prognosis remains guarded. The patient's family still maintain full code and continued care, aware of the poor prognosis. Javid Das MD
[2018-10-14] MEDS ORDERED: Chlorhexidine Gluconate 1 APPL/PKT TP ONE (22:30)
[2018-10-15] MEDS: Meropenem 1 GM in Sodium Chloride 0.9% 100 ML IVPB SCH ×2 (00:18→09:27)
--- NOTE | 2018-10-15 04:13 | CP.PCM.PN ---
Subjective - Date & Time of Evaluation Date of Evaluation: 10/14/18 Time of Evaluation: 19:35 - Subjective Subjective: Continue to be on MV FIO2 60%. Cardiology consulted for clearance for G- tube placement. Patient remains high risk for any procedure due to Multiorgan Failure. Objective - Vital Signs/Intake and Output Vital Signs (last 24 hours): Temp Pulse Resp BP Pulse Ox 100.4 F H 119 H 20 101/60 97 10/15/18 00:00 10/15/18 01:00 10/15/18 01:00 10/15/18 01:00 10/15/18 01:00 Intake and Output: 10/14/18 10/15/18 18:59 06:59 Intake Total 1676 175 Output Total 500 Balance 1176 175 - Medications Medications: Current Medications Allopurinol (Zyloprim) 100 mg NG DAILY [facility] Last Admin: 09/27/18 08:16 Dose: 100 mg Famotidine (Pepcid) 20 mg IVP Q12 [facility] Last Admin: 10/14/18 21:04 Dose: 20 mg Hydrocortisone Sodium Succinate (Solu-Cortef) 100 mg IVP Q12 [facility] Last Admin: 10/14/18 21:04 Dose: 100 mg Meropenem 1 gm/ Sodium (Chloride) 100 mls @ 100 mls/hr IVPB Q8 [facility]; Protocol Last Admin: 10/15/18 00:18 Dose: 100 mls/hr Fluconazole (Diflucan Iv 100 Mg/50 Ml Ns) 50 mls @ 50 mls/hr IVPB DAILY [facility]; Protocol Last Admin: 10/14/18 10:02 Dose: 50 mls/hr Vancomycin HCl 500 mg/ Sodium (Chloride) 100 mls @ 100 mls/hr IVPB Q12 [facility]; Protocol Last Admin: 10/13/18 08:16 Dose: 100 mls/hr - Labs Labs: 10/14/18 04:30 10/14/18 04:30 PT 14.9 Seconds (9.8-13.1) H 10/03/18 04:40 INR 1.3 10/03/18 04:40 APTT 26.7 Seconds (25.6-37.1) 10/03/18 04:40 Assessment and Plan (1) Septic shock Status: Acute (2) Multiple organ dysfunction syndrome Status: Acute (3) Acute respiratory failure with hypoxemia Status: Acute (4) Thrombocytopenia Status: Acute (5) Ascites, malignant Status: Acute (6) Congestive heart failure (CHF) Status: Acute (7) Stage IV breast cancer in female Status: Acute (8) Severe anemia Status: Resolved (9) DVT of lower extremity, bilateral Status: Chronic (10) Anasarca Status: Acute - Assessment and Plan (Free Text) Plan: Continue Current Care Cardiology Consult with Dr. Tucker
[2018-10-15 06:09] LABS: BASO # 0.1 K/uL (0.0-0.2); BASO % 0.5 % (0.0-2.0); LYMPH % 5.2 % (20.0-40.0); MEAN CELL VOLUME 93.9 fl (81.0-99.0); MEAN CORPUSCULAR HEMOGLOBIN 30.6 pg (27.0-31.0); MEAN CORPUSCULAR HGB CONC 32.5 g/dL (33.0-37.0); MEAN PLATELET VOLUME 11.7 fl (7.2-11.7); MONO # 0.6 K/uL (0.0-0.8); MONO % 3.3 % (0.0-10.0); NEUT # 17.6 K/uL (1.8-7.0); NRBC % 0.1 % (0.0-0.0); PLATELET COUNT 206 K/uL (130-400); RBC 3.61 Mil/uL (3.80-5.20); RED CELL DISTRIBUTION WIDTH 17.1 % (11.5-14.5); WHITE BLOOD COUNT 19.4 K/uL (4.8-10.8)
[2018-10-15 06:51] LABS: CALCIUM 7.3 mg/dL (8.4-10.2)
--- NOTE | 2018-10-15 07:39 | CP.CCUPN ---
CCU Subjective - Physician Review Events Since Last Encounter (Free Text): Patient on ventilator through tracheostomy on PRVC TV 450, RR 20, FIO2 60%, no fever, opens eyes to verbal stimuli, events reviewed CCU Objective - Vital Signs / Intake & Output Vital Signs (Last 4 hours): Vital Signs Temp Pulse Resp BP Pulse Ox 10/15/18 07:00 128 H 20 119/65 97 10/15/18 06:00 136 H 21 114/69 96 10/15/18 05:00 117 H 20 102/61 99 10/15/18 04:00 100.2 F H 124 H 21 109/66 98 Intake and Output (Last 8hrs): Intake & Output 10/14/18 10/15/18 10/15/18 22:59 06:59 14:59 Intake Total 812 336 130.62 Output Total 500 250 Balance 312 86 130.62 Weight 186 lb 6.4 oz Intake: IV 167 336 130.62 Intake, Piggyback 100 Tube Feeding 345 Free Water Flush 200 Output: Urine 300 250 Urethral (Orellana) 300 250 Stool 200 - Physical Exam Head: Positive for: Atraumatic, Normocephalic Pupils: Positive for: PERRL Conjunctiva: Negative for: Injected, Icteric Ears: Positive for: Normal Mouth: Positive for: Moist Mucous Membranes Nose (Internal): Positive for: Normal Inspection Neck: Positive for: Normal Range of Motion, Trachea Midline. Negative for: Meningeal Signs, MIDLINE TENDERNESS, Paraspinal Tenderness, JVD, Lymphadenopathy, Bruit, Other Respiratory/Chest: Positive for: Good Air Exchange, Rales, Retracting, Rhonchi. Negative for: Respiratory Distress, Accessory Muscle Use, Wheezes, Tachypneic Cardiovascular: Positive for: Regular Rate and Rhythm, Normal S1, S2, Peripheal Pulses Present. Negative for: Murmurs, Irregular Rhythm, Tachycardic, Bradycardic Abdomen: Positive for: Normal Bowel Sounds. Negative for: Tenderness Breast/Axillary: Positive for: Other (fungating necrotic mass to Right Breast) Upper Extremity: Positive for: Edema, NORMAL PULSES. Negative for: Normal Inspection, Cyanosis Lower Extremity: Positive for: Edema, NORMAL PULSES. Negative for: Normal Inspection Neurological: Positive for: Other (on ventilator, opens eyes to verbal stimuli) - Medications Active Medications: Active Medications Generic Name Dose Route Start Last Admin Trade Name Freq PRN Reason Stop Dose Admin Allopurinol 100 mg 09/14/18 09:00 09/27/18 08:16 Zyloprim NG 100 mg DAILY [facility] Administration Famotidine 20 mg 10/12/18 21:00 10/14/18 21:04 Pepcid IVP 20 mg Q12 [facility] Administration Hydrocortisone Sodium Succinate 100 mg 10/12/18 21:00 10/14/18 21:04 Solu-Cortef IVP 100 mg Q12 [facility] Administration Meropenem 1 gm/ Sodium 100 mls @ 100 mls/hr 09/18/18 12:45 10/15/18 00:18 Chloride IVPB 100 mls/hr Q8 [facility] Administration Protocol Fluconazole 50 mls @ 50 mls/hr 10/10/18 09:00 10/14/18 10:02 Diflucan Iv 100 Mg/50 Ml Ns IVPB 50 mls/hr DAILY [facility] Administration Protocol Vancomycin HCl 500 mg/ Sodium 100 mls @ 100 mls/hr 10/12/18 21:00 10/13/18 08:16 Chloride IVPB 100 mls/hr Q12 [facility] Administration Protocol Norepinephrine Bitartrate 8 mg 258 mls @ 43.54 mls/hr 10/15/18 06:34 10/15/18 07:01 / Dextrose IV 10/15/18 12:09 20 mcg/min .Q5H56M ONE 38.7 mls/hr Titration Protocol 22.5 MCG/MIN - Patient Studies Lab Studies: Lab Studies 10/15/18 10/15/18 10/14/18 Range/Units 04:25 04:25 04:30 WBC 19.4 H (4.8-10.8) K/uL RBC 3.61 L (3.80-5.20) Mil/uL Hgb 11.0 L (12.0-16.0) g/dL Hct 33.9 L (34.0-47.0) % MCV 93.9 (81.0-99.0) fl MCH 30.6 (27.0-31.0) pg MCHC 32.5 L (33.0-37.0) g/dL RDW 17.1 H (11.5-14.5) % Plt Count 206 (130-400) K/uL MPV 11.7 (7.2-11.7) fl Neut % (Auto) 91.0 H (50.0-75.0) % Lymph % (Auto) 5.2 L (20.0-40.0) % [place] % (Auto) 3.3 (0.0-10.0) % Eos % (Auto) 0.0 (0.0-4.0) % Baso % (Auto) 0.5 (0.0-2.0) % Neut # (Auto) 17.6 H (1.8-7.0) K/uL Lymph # (Auto) 1.0 (1.0-4.3) K/uL [place] # (Auto) 0.6 (0.0-0.8) K/uL Eos # (Auto) 0.0 (0.0-0.7) K/uL Baso # (Auto) 0.1 (0.0-0.2) K/uL Neutrophils % (Manual) 91 H (42-75) % Band Neutrophils % 2 (0-2) % Lymphocytes % (Manual) 5 L (20-50) % Monocytes % (Manual) 2 (0-10) % Platelet Estimate Normal (NORMAL) Large Platelets Present Hypochromasia (manual) Slight Anisocytosis (manual) Slight Sodium 143 (132-148) mmol/l Potassium 4.5 (3.6-5.0) MMOL/L Chloride 114 H (98-107) mmol/L Carbon Dioxide 19 L (22-30) mmol/L Anion Gap 15 (10-20) BUN 101 H* (7-17) mg/dl Creatinine 1.3 H (0.7-1.2) mg/dl Est GFR ( Amer) 51 Est GFR (Non-Af Amer) 42 Random Glucose 137 H (65-105) mg/dL Calcium 7.3 L (8.4-10.2) mg/dL Laboratory Results - last 24 hr 10/14/18 10/15/18 10/15/18 04:30 04:25 04:25 WBC 19.4 H RBC 3.61 L Hgb 11.0 L Hct 33.9 L MCV 93.9 MCH 30.6 MCHC 32.5 L RDW 17.1 H Plt Count 206 MPV 11.7 Neut % (Auto) 91.0 H Lymph % (Auto) 5.2 L [place] % (Auto) 3.3 Eos % (Auto) 0.0 Baso % (Auto) 0.5 Neut # (Auto) 17.6 H Lymph # (Auto) 1.0 [place] # (Auto) 0.6 Eos # (Auto) 0.0 Baso # (Auto) 0.1 Neutrophils % (Manual) 91 H Band Neutrophils % 2 Lymphocytes % (Manual) 5 L Monocytes % (Manual) 2 Platelet Estimate Normal Large Platelets Present Hypochromasia (manual) Slight Anisocytosis (manual) Slight Sodium 143 Potassium 4.5 Chloride 114 H Carbon Dioxide 19 L Anion Gap 15 BUN 101 H* Creatinine 1.3 H Est GFR ( Amer) 51 Est GFR (Non-Af Amer) 42 Random Glucose 137 H Calcium 7.3 L Radiology Impressions: Radiology Impressions Chest X-Ray 10/14/18 06:00 IMPRESSION: Support lines and tubes as above. Subtotal opacification left hemithorax slightly improved from prior exam consistent with large effusion and presumed atelectasis and/or infiltrate. Mild right basilar atelectasis with small right-sided effusion. Central pulmonary vasculature also appears congested. Critical Care Progress Note - Nutrition Nutrition: Nutrition Category Date Time Status NPO Diet [DIET] Diets 10/03/18 Breakfast Active Assessment/Plan - Assessment and Plan (Free Text) Assessment: Respiratory failure, pneumonia, severe sepsis, metastatic breast ca, anemia, h/o DVT, s/p pancreatitis, vaginal bleeding, malignant ascietis - Ventilatory support - Pulmonary toilets - Continue meds - OG tube feeding - Poor prognosis
[2018-10-15 08:48] LABS: ANISOCYTOSIS SLIGHT; BANDS 1 % (0-2); BASOPHIL 1 % (0-2); LYMPHOCYTE 4 % (20-50); MONOCYTE 3 % (0-10); NEUTROPHIL 91 % (42-75); PLATELET ESTIMATE NORMAL (NORMAL); TOTAL CELLS COUNTED 100
[2018-10-15 08:49] LABS: LARGE PLATELETS PRESENT
[2018-10-15] MEDS: Fluconazole IV 100mg/50 ml NS 50 ML IVPB SCH (10:00)
--- NOTE | 2018-10-15 11:05 | RAD ---
Date of service: 10/15/2018 HISTORY: Tracheostomy COMPARISON: Comparison chest 10/14/2018 TECHNIQUE: 1 view obtained. FINDINGS: In situ tracheostomy tube in good position.. In situ NGT, tip of which has not been included on this radiograph though distal aspect does lie well below EG junction. No change left-sided MediPort LUNGS: Near complete opacification left hemithorax consistent with some combination of large effusion and presumed atelectasis although superimposed infiltrate not excluded.. There also appears to be underlying pulmonary venous congestive changes with alveolar-type infiltrates right lower lung field with right-sided effusion. PLEURA: As above. No pneumothorax apparent. CARDIOVASCULAR: No aortic atherosclerotic calcification present. Heart size difficult to assess due to silhouetting.. OSSEOUS STRUCTURES: No significant abnormalities. VISUALIZED UPPER ABDOMEN: Normal. OTHER FINDINGS: None. IMPRESSION: Near complete opacification left hemithorax consistent with some combination of large effusion and presumed atelectasis although superimposed infiltrate not excluded.. There also appears to be underlying pulmonary venous congestive changes with alveolar-type infiltrates right lower lung field with right-sided effusion.
[2018-10-15 11:41] LABS: ABG ALLEN TEST YES; ARTERIAL BLOOD GAS HCO3 22.7 mmol/L (21-28); ARTERIAL BLOOD GAS HEMOGLOBIN 10.6 g/dL (11.7-17.4); ARTERIAL BLOOD GAS O2 CAPACITY 14.4 mL/dL (16-24); ARTERIAL BLOOD GAS O2 CONTENT 11.8 ML/dL (15-23); ARTERIAL BLOOD GAS O2 SAT 81.8 % (95-98); ARTERIAL BLOOD GAS PCO2 31 mm/Hg (35-45); ARTERIAL BLOOD GAS PH 7.44 (7.35-7.45); ARTERIAL BLOOD GAS PO2 42 mm/Hg (80-100); ARTERIAL BLOOD GAS TCO2 22.1 mmol/L (22-28)
--- NOTE | 2018-10-15 14:13 | CP.PCM.PN ---
Subjective - Date & Time of Evaluation Date of Evaluation: 10/15/18 Time of Evaluation: 18:15 - Subjective Subjective: Seen and examined at the bed side. Blood work showed worsening. Poor prognosis. D/w the oncologist who stated that family informed of the poor prognosis Objective - Vital Signs/Intake and Output Vital Signs (last 24 hours): Temp Pulse Resp BP Pulse Ox 100.2 F H 111 H 20 100/64 99 10/15/18 12:00 10/15/18 13:00 10/15/18 13:00 10/15/18 13:00 10/15/18 13:00 Intake and Output: 10/15/18 10/15/18 06:59 18:59 Intake Total 506 130.62 Output Total 250 Balance 256 130.62 - Medications Medications: Current Medications Allopurinol (Zyloprim) 100 mg NG DAILY [facility] Last Admin: 09/27/18 08:16 Dose: 100 mg Famotidine (Pepcid) 20 mg IVP Q12 [facility] Last Admin: 10/15/18 09:30 Dose: 20 mg Hydrocortisone Sodium Succinate (Solu-Cortef) 100 mg IVP Q12 [facility] Last Admin: 10/15/18 09:28 Dose: 100 mg Vancomycin HCl 500 mg/ Sodium (Chloride) 100 mls @ 100 mls/hr IVPB Q12 [facility]; Protocol Last Admin: 10/13/18 08:16 Dose: 100 mls/hr - Labs Labs: 10/15/18 04:25 10/15/18 04:25 PT 14.9 Seconds (9.8-13.1) H 10/03/18 04:40 INR 1.3 10/03/18 04:40 APTT 26.7 Seconds (25.6-37.1) 10/03/18 04:40 Assessment and Plan (1) Septic shock Status: Resolved (2) Multiple organ dysfunction syndrome Status: Acute (3) Acute respiratory failure with hypoxemia Status: Acute (4) Thrombocytopenia Status: Resolved (5) Ascites, malignant Status: Acute (6) Congestive heart failure (CHF) Status: Acute (7) Stage IV breast cancer in female Status: Acute (8) Severe anemia Status: Resolved (9) DVT of lower extremity, bilateral Status: Chronic (10) Anasarca Status: Acute
--- NOTE | 2018-10-15 22:51 | CP.PCM.PN ---
Subjective - Date & Time of Evaluation Date of Evaluation: 10/13/18 Time of Evaluation: 12:00 - Subjective Subjective: Vented Objective - Vital Signs/Intake and Output Vital Signs (last 24 hours): Temp Pulse Resp BP Pulse Ox 99.9 F H 123 H 106 H 106/60 96 10/15/18 16:00 10/15/18 18:00 10/15/18 18:00 10/15/18 18:00 10/15/18 18:00 Intake and Output: 10/15/18 10/16/18 18:59 06:59 Intake Total 1460.62 389 Output Total 600 Balance 860.62 389 - Medications Medications: Current Medications Allopurinol (Zyloprim) 100 mg NG DAILY [facility] Last Admin: 09/27/18 08:16 Dose: 100 mg Famotidine (Pepcid) 20 mg IVP Q12 [facility] Last Admin: 10/15/18 21:07 Dose: 20 mg Hydrocortisone Sodium Succinate (Solu-Cortef) 100 mg IVP Q12 [facility] Last Admin: 10/15/18 21:04 Dose: 100 mg Vancomycin HCl 500 mg/ Sodium (Chloride) 100 mls @ 100 mls/hr IVPB Q12 [facility]; Protocol Last Admin: 10/13/18 08:16 Dose: 100 mls/hr Norepinephrine Bitartrate 8 mg (/ Dextrose) 258 mls @ 29.03 mls/hr IV .Q8H54M ONE; Protocol Stop: 10/16/18 04:23 Last Admin: 10/15/18 19:30 Dose: 15 mcg/min, 29.03 mls/hr - Labs Labs: 10/15/18 04:25 10/15/18 04:25 PT 14.9 Seconds (9.8-13.1) H 10/03/18 04:40 INR 1.3 10/03/18 04:40 APTT 26.7 Seconds (25.6-37.1) 10/03/18 04:40 - Head Exam Head Exam: ATRAUMATIC - Eye Exam Eye Exam: Normal appearance - ENT Exam ENT Exam: Mucous Membranes Dry - Respiratory Exam Respiratory Exam: NORMAL BREATHING PATTERN - Cardiovascular Exam Cardiovascular Exam: +S1, +S2 - GI/Abdominal Exam GI & Abdominal Exam: Normal Bowel Sounds - Extremities Exam Extremities Exam: Pedal Edema Assessment and Plan (1) Anemia Assessment & Plan: anemia of chronic disease 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
--- NOTE | 2018-10-15 22:52 | CP.PCM.PN ---
Subjective - Date & Time of Evaluation Date of Evaluation: 10/14/18 Time of Evaluation: 17:00 - Subjective Subjective: Vented Objective - Vital Signs/Intake and Output Vital Signs (last 24 hours): Temp Pulse Resp BP Pulse Ox 99.9 F H 123 H 106 H 106/60 96 10/15/18 16:00 10/15/18 18:00 10/15/18 18:00 10/15/18 18:00 10/15/18 18:00 Intake and Output: 10/15/18 10/16/18 18:59 06:59 Intake Total 1460.62 389 Output Total 600 Balance 860.62 389 - Medications Medications: Current Medications Allopurinol (Zyloprim) 100 mg NG DAILY [facility] Last Admin: 09/27/18 08:16 Dose: 100 mg Famotidine (Pepcid) 20 mg IVP Q12 [facility] Last Admin: 10/15/18 21:07 Dose: 20 mg Hydrocortisone Sodium Succinate (Solu-Cortef) 100 mg IVP Q12 [facility] Last Admin: 10/15/18 21:04 Dose: 100 mg Vancomycin HCl 500 mg/ Sodium (Chloride) 100 mls @ 100 mls/hr IVPB Q12 [facility]ADIS; Protocol Last Admin: 10/13/18 08:16 Dose: 100 mls/hr Norepinephrine Bitartrate 8 mg (/ Dextrose) 258 mls @ 29.03 mls/hr IV .Q8H54M ONE; Protocol Stop: 10/16/18 04:23 Last Admin: 10/15/18 19:30 Dose: 15 mcg/min, 29.03 mls/hr - Labs Labs: 10/15/18 04:25 10/15/18 04:25 PT 14.9 Seconds (9.8-13.1) H 10/03/18 04:40 INR 1.3 10/03/18 04:40 APTT 26.7 Seconds (25.6-37.1) 10/03/18 04:40 - Head Exam Head Exam: ATRAUMATIC - Eye Exam Eye Exam: Normal appearance - ENT Exam ENT Exam: Mucous Membranes Dry - Respiratory Exam Respiratory Exam: NORMAL BREATHING PATTERN - Cardiovascular Exam Cardiovascular Exam: +S1, +S2 - GI/Abdominal Exam GI & Abdominal Exam: Normal Bowel Sounds - Extremities Exam Extremities Exam: Pedal Edema Assessment and Plan (1) Anemia Assessment & Plan: anemia of chronic disease 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
--- NOTE | 2018-10-15 22:53 | CP.PCM.PN ---
Subjective - Date & Time of Evaluation Date of Evaluation: 10/15/18 Time of Evaluation: 16:00 - Subjective Subjective: Vented Objective - Vital Signs/Intake and Output Vital Signs (last 24 hours): Temp Pulse Resp BP Pulse Ox 99.9 F H 123 H 106 H 106/60 96 10/15/18 16:00 10/15/18 18:00 10/15/18 18:00 10/15/18 18:00 10/15/18 18:00 Intake and Output: 10/15/18 10/16/18 18:59 06:59 Intake Total 1460.62 389 Output Total 600 Balance 860.62 389 - Medications Medications: Current Medications Allopurinol (Zyloprim) 100 mg NG DAILY GLADIS Last Admin: 09/27/18 08:16 Dose: 100 mg Famotidine (Pepcid) 20 mg IVP Q12 GLADIS Last Admin: 10/15/18 21:07 Dose: 20 mg Hydrocortisone Sodium Succinate (Solu-Cortef) 100 mg IVP Q12 GLADIS Last Admin: 10/15/18 21:04 Dose: 100 mg Vancomycin HCl 500 mg/ Sodium (Chloride) 100 mls @ 100 mls/hr IVPB Q12 GLADIS; Protocol Last Admin: 10/13/18 08:16 Dose: 100 mls/hr Norepinephrine Bitartrate 8 mg (/ Dextrose) 258 mls @ 29.03 mls/hr IV .Q8H54M ONE; Protocol Stop: 10/16/18 04:23 Last Admin: 10/15/18 19:30 Dose: 15 mcg/min, 29.03 mls/hr - Labs Labs: 10/15/18 04:25 10/15/18 04:25 PT 14.9 Seconds (9.8-13.1) H 10/03/18 04:40 INR 1.3 10/03/18 04:40 APTT 26.7 Seconds (25.6-37.1) 10/03/18 04:40 - Head Exam Head Exam: ATRAUMATIC - Eye Exam Eye Exam: Normal appearance - ENT Exam ENT Exam: Mucous Membranes Dry - Respiratory Exam Respiratory Exam: NORMAL BREATHING PATTERN - Cardiovascular Exam Cardiovascular Exam: +S1, +S2 - GI/Abdominal Exam GI & Abdominal Exam: Normal Bowel Sounds - Extremities Exam Extremities Exam: Pedal Edema Assessment and Plan (1) Anemia Assessment & Plan: anemia of chronic disease 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
[2018-10-16 04:49] LABS: ABG ALLEN TEST YES; ARTERIAL BLOOD GAS O2 SAT 97.9 % (95-98); ARTERIAL BLOOD GAS PCO2 34 mm/Hg (35-45); ARTERIAL BLOOD GAS PH 7.41 (7.35-7.45); ARTERIAL BLOOD GAS PO2 81 mm/Hg (80-100); ARTERIAL BLOOD GAS TCO2 22.6 mmol/L (22-28)
[2018-10-16 05:42] LABS: HEMOGLOBIN 10.4 g/dL (12.0-16.0); MEAN CELL VOLUME 93.4 fl (81.0-99.0); MEAN CORPUSCULAR HEMOGLOBIN 30.4 pg (27.0-31.0); MEAN CORPUSCULAR HGB CONC 32.5 g/dL (33.0-37.0); RBC 3.42 Mil/uL (3.80-5.20); RED CELL DISTRIBUTION WIDTH 17.1 % (11.5-14.5); WHITE BLOOD COUNT 16.9 K/uL (4.8-10.8)
[2018-10-16 05:57] LABS: CALCIUM 7.6 mg/dL (8.4-10.2)
--- NOTE | 2018-10-16 13:16 | CP.CCUPN ---
CCU Subjective - Physician Review Events Since Last Encounter (Free Text): 10/16/18 13:05 alert, responsive to stimuli CCU Objective - Vital Signs / Intake & Output Vital Signs (Last 4 hours): Vital Signs Temp Pulse Resp BP Pulse Ox 10/16/18 12:00 99.7 F H 128 H 20 113/59 L 97 10/16/18 11:00 121 H 20 114/63 97 10/16/18 10:00 113 H 21 98/59 L 99 Intake and Output (Last 8hrs): Intake & Output 10/15/18 10/16/18 10/16/18 22:59 06:59 14:59 Intake Total 849 714 308 Output Total 600 350 Balance 249 364 308 Intake: IV 120 168 Intake, Piggyback 84 234 Tube Feeding 245 280 140 Free Water Flush 400 200 Output: Urine 500 350 Urethral (Hardwick) 500 350 Stool 100 - Physical Exam Head: Positive for: Atraumatic, Normocephalic Pupils: Positive for: PERRL Extroacular Muscles: Positive for: EOMI Conjunctiva: Negative for: Injected, Icteric Ears: Positive for: Normal Mouth: Positive for: Moist Mucous Membranes Nose (Internal): Positive for: Normal Inspection Neck: Positive for: Normal Range of Motion, Trachea Midline. Negative for: Meningeal Signs, MIDLINE TENDERNESS, Paraspinal Tenderness, JVD, Lymphadenopathy, Bruit, Other Respiratory/Chest: Positive for: Good Air Exchange, Rales, Retracting, Rhonchi. Negative for: Respiratory Distress, Accessory Muscle Use, Wheezes, Tachypneic Cardiovascular: Positive for: Regular Rate and Rhythm, Normal S1, S2, Peripheal Pulses Present. Negative for: Murmurs, Irregular Rhythm, Tachycardic, Bradycardic Abdomen: Positive for: Normal Bowel Sounds. Negative for: Tenderness Breast/Axillary: Positive for: Other (fungating necrotic mass to Right Breast) Upper Extremity: Positive for: Edema, NORMAL PULSES. Negative for: Normal Inspection, Cyanosis Lower Extremity: Positive for: Edema, NORMAL PULSES. Negative for: Normal In spection Neurological: Positive for: Other (on ventilator, opens eyes to verbal stimuli) Psychiatric: Positive for: Other (Sedated and orally intubated). Negative for: Alert - Medications Active Medications: Active Medications Generic Name Dose Route Start Last Admin Trade Name Freq PRN Reason Stop Dose Admin Allopurinol 100 mg 09/14/18 09:00 09/27/18 08:16 Zyloprim NG 100 mg DAILY GLADIS Administration Famotidine 20 mg 10/12/18 21:00 10/16/18 08:55 Pepcid IVP 20 mg Q12 GLADIS Administration Hydrocortisone Sodium Succinate 100 mg 10/12/18 21:00 10/16/18 08:54 Solu-Cortef IVP 100 mg Q12 GLADIS Administration Vancomycin HCl 500 mg/ Sodium 100 mls @ 100 mls/hr 10/12/18 21:00 10/13/18 08:16 Chloride IVPB 100 mls/hr Q12 GLADIS Administration Protocol Norepinephrine Bitartrate 8 mg 258 mls @ 29.03 mls/hr 10/16/18 06:55 10/16/18 08:52 / Dextrose IV 10/16/18 15:48 15 mcg/min .Q8H54M ONE 29.03 mls/hr Administration Protocol 15 MCG/MIN - Patient Studies Lab Studies: Lab Studies 10/16/18 10/16/18 10/16/18 Range/Units 05:31 05:31 05:31 WBC 16.9 H (4.8-10.8) K/uL RBC 3.42 L (3.80-5.20) Mil/uL Hgb 10.4 L (12.0-16.0) g/dL Hct 31.9 L (34.0-47.0) % MCV 93.4 (81.0-99.0) fl MCH 30.4 (27.0-31.0) pg MCHC 32.5 L (33.0-37.0) g/dL RDW 17.1 H (11.5-14.5) % Plt Count 200 (130-400) K/uL pCO2 (35-45) mm/Hg pO2 (80-100) mm/Hg HCO3 (21-28) mmol/L ABG pH (7.35-7.45) ABG Total CO2 (22-28) mmol/L ABG O2 Saturation (95-98) % ABG Base Excess (-2.0-3.0) mmol/L Frederic Test ABG Potassium (3.6-5.2) mmol/L A-a O2 Difference mm/Hg Sodium 143 (132-148) mmol/L Chloride 112 H (98-107) mmol/L Glucose (65-105) mg/dL Lactate (0.7-2.1) mmol/L Vent Mode Mechanical Rate FiO2 % Tidal Volume PEEP Potassium 4.1 (3.6-5.0) MMOL/L Carbon Dioxide 21 L (22-30) mmol/L Anion Gap 14 (10-20) BUN 99 H (7-17) mg/dl Creatinine 1.4 H (0.7-1.2) mg/dl Est GFR ( Amer) 46 Est GFR (Non-Af Amer) 38 Random Glucose 128 H (65-105) mg/dL Calcium 7.6 L (8.4-10.2) mg/dL Arterial Blood Potassium (3.6-5.2) mmol/L Vancomycin Trough 13.9 H (5.0-10.0) ug/mL 10/16/18 Range/Units 04:39 WBC (4.8-10.8) K/uL RBC (3.80-5.20) Mil/uL Hgb (12.0-16.0) g/dL Hct (34.0-47.0) % MCV (81.0-99.0) fl MCH (27.0-31.0) pg MCHC (33.0-37.0) g/dL RDW (11.5-14.5) % Plt Count (130-400) K/uL pCO2 34 L (35-45) mm/Hg pO2 81 (80-100) mm/Hg HCO3 23.0 (21-28) mmol/L ABG pH 7.41 (7.35-7.45) ABG Total CO2 22.6 (22-28) mmol/L ABG O2 Saturation 97.9 (95-98) % ABG Base Excess -2.4 L (-2.0-3.0) mmol/L Frederic Test Yes ABG Potassium 4.4 (3.6-5.2) mmol/L A-a O2 Difference 304.0 mm/Hg Sodium 143.0 (132-148) mmol/L Chloride 115.0 H (98-107) mmol/L Glucose 132 H (65-105) mg/dL Lactate 1.1 (0.7-2.1) mmol/L Vent Mode A/c Mechanical Rate 20 FiO2 60.0 % Tidal Volume 450 PEEP 5 Potassium (3.6-5.0) MMOL/L Carbon Dioxide (22-30) mmol/L Anion Gap (10-20) BUN (7-17) mg/dl Creatinine (0.7-1.2) mg/dl Est GFR ( Amer) Est GFR (Non-Af Amer) Random Glucose (65-105) mg/dL Calcium (8.4-10.2) mg/dL Arterial Blood Potassium 4.4 (3.6-5.2) mmol/L Vancomycin Trough (5.0-10.0) ug/mL Laboratory Results - last 24 hr 10/16/18 10/16/18 10/16/18 04:39 05:31 05:31 WBC 16.9 H RBC 3.42 L Hgb 10.4 L Hct 31.9 L MCV 93.4 MCH 30.4 MCHC 32.5 L RDW 17.1 H Plt Count 200 pCO2 34 L pO2 81 HCO3 23.0 ABG pH 7.41 ABG Total CO2 22.6 ABG O2 Saturation 97.9 ABG Base Excess -2.4 L Frederic Test Yes ABG Potassium 4.4 A-a O2 Difference 304.0 Sodium 143.0 143 Chloride 115.0 H 112 H Glucose 132 H Lactate 1.1 Vent Mode A/c Mechanical Rate 20 FiO2 60.0 Tidal Volume 450 PEEP 5 Potassium 4.1 Carbon Dioxide 21 L Anion Gap 14 BUN 99 H Creatinine 1.4 H Est GFR ( Amer) 46 Est GFR (Non-Af Amer) 38 Random Glucose 128 H Calcium 7.6 L Arterial Blood Potassium 4.4 Vancomycin Trough 10/16/18 05:31 WBC RBC Hgb Hct MCV MCH MCHC RDW Plt Count pCO2 pO2 HCO3 ABG pH ABG Total CO2 ABG O2 Saturation ABG Base Excess Frederic Test ABG Potassium A-a O2 Difference Sodium Chloride Glucose Lactate Vent Mode Mechanical Rate FiO2 Tidal Volume PEEP Potassium Carbon Dioxide Anion Gap BUN Creatinine Est GFR ( Amer) Est GFR (Non-Af Amer) Random Glucose Calcium Arterial Blood Potassium Vancomycin Trough 13.9 H Review of Systems - Review of Systems Systems not reviewed;Unavailable: Intubated Critical Care Progress Note - Nutrition Nutrition: Nutrition Category Date Time Status NPO Diet [DIET] Diets 10/03/18 Breakfast Active Assessment/Plan (1) Multiple organ dysfunction syndrome Assessment and plan: 58yo F. PMHx anemia, anxiety, CHF, DVT, PE, stage 4 metastatic breast CA on chemotx. p/w acute respiratory failure. 10/03/18 trach placed. Neuro: more alert, barely responsive Pulm: acute respiratory failure, now trach'd on vent. left lung near complete atelectasis/opacification. CV: hemodynamicaly stable Hem: thrombocytopenia improving. bleeding from uterine cancer, required recurrent multiple transfusions. Renal: oliguria, anasarca. Endo: no acute issues GI: NPO, Pulmocare via NGT, free water 200ml q6h for hypernatremia. ID: mulitlobar pneumonia continue Vancomycin. DVT proph - SCD's, a/c held with current bleeding GI proph - protonix hardwick for strict I/O's during acute illness Code status - full code Patient has an extremely poor prognosis and a high mortality risk, she is in multi organ failure with a bleeding metastatic cancer and will not survive this admission. Critical Care time spent 35 minutes Multi-disciplinary rounds were performed with house staff, nursing, speech therapy, respiratory therapy, pharmacy and nutrition with integrated input from the primary team/attending and other consulting services. The documented time is cumulative and includes review of patient data/exams/labs/chart review and examination of the patient on rounds and throughout the day; time is exclusive of any procedures or teaching time. Current Visit: Yes Status: Acute
--- NOTE | 2018-10-16 14:54 | CP.PCM.PN ---
Subjective - Date & Time of Evaluation Date of Evaluation: 10/16/18 Time of Evaluation: 20:05 - Subjective Subjective: Seen and examined at the bed side. Patient continue to decline. Anasarca, continue to be intubated and unresponsive. NOK refused DNR/DNI and end of lefe care. Unstable to discharge as patient is on Pressors, and will need G-Tube to send her even to long Acute Care Facility. Patient is MOF, Septic and Cardiogenic shock with Severe Cardiomyopathy, Anemia, Thrombo-cytopenia, Active bleeding, Stage IV Malignancy and extensive rashes. S/P Tracheostomy. Objective - Vital Signs/Intake and Output Vital Signs (last 24 hours): Temp Pulse Resp BP Pulse Ox 99.7 F H 128 H 20 113/59 L 97 10/16/18 12:00 10/16/18 12:00 10/16/18 12:00 10/16/18 12:00 10/16/18 12:00 Intake and Output: 10/16/18 10/16/18 06:59 18:59 Intake Total 1103 308 Output Total 350 Balance 753 308 - Medications Medications: Current Medications Allopurinol (Zyloprim) 100 mg NG DAILY GLADIS Last Admin: 09/27/18 08:16 Dose: 100 mg Famotidine (Pepcid) 20 mg IVP Q12 GLADIS Last Admin: 10/16/18 08:55 Dose: 20 mg Hydrocortisone Sodium Succinate (Solu-Cortef) 100 mg IVP Q12 GLADIS Last Admin: 10/16/18 08:54 Dose: 100 mg Vancomycin HCl 500 mg/ Sodium (Chloride) 100 mls @ 100 mls/hr IVPB Q12 GLADIS; P rotocol Last Admin: 10/13/18 08:16 Dose: 100 mls/hr Norepinephrine Bitartrate 8 mg (/ Dextrose) 258 mls @ 29.03 mls/hr IV .Q8H54M ONE; Protocol Stop: 10/16/18 15:48 Last Admin: 10/16/18 08:52 Dose: 15 mcg/min, 29.03 mls/hr - Labs Labs: 10/16/18 05:31 10/16/18 05:31 PT 14.9 Seconds (9.8-13.1) H 10/03/18 04:40 INR 1.3 10/03/18 04:40 APTT 26.7 Seconds (25.6-37.1) 10/03/18 04:40 Assessment and Plan (1) Septic shock Status: Resolved (2) Multiple organ dysfunction syndrome Status: Acute (3) Acute respiratory failure with hypoxemia Status: Acute (4) Thrombocytopenia Status: Resolved (5) Ascites, malignant Status: Acute (6) Congestive heart failure (CHF) Status: Acute (7) Stage IV breast cancer in female Status: Acute (8) Severe anemia Status: Resolved (9) DVT of lower extremity, bilateral Status: Chronic (10) Anasarca Status: Acute
--- NOTE | 2018-10-16 16:16 | RAD ---
Date of service: 10/16/2018 HISTORY: trached/ congestion COMPARISON: 10/15/2018 TECHNIQUE: 1 view obtained. FINDINGS: LUNGS: Large left pleural effusion, grossly unchanged. No definite consolidation though consolidation at the left base cannot be excluded on the basis of this examination due to the superimposed density of the pleural fluid. Minimal right pleural effusion. No pneumothorax. PLEURA: As above CARDIOVASCULAR: No aortic atherosclerotic calcification present. Normal cardiac size. Tracheostomy tube, left central venous infusion port and nasogastric tube are unchanged. OSSEOUS STRUCTURES: No significant abnormalities. VISUALIZED UPPER ABDOMEN: Normal. OTHER FINDINGS: None. IMPRESSION: Large left pleural effusion and minimal right pleural effusion. Lines and tubes unchanged.
[2018-10-16] MEDS: Meropenem 500 MG in Sodium Chloride 0.9% 100 ML IVPB SCH (16:43)
--- NOTE | 2018-10-16 21:57 | CP.PCM.PN ---
Subjective - Date & Time of Evaluation Date of Evaluation: 10/16/18 Time of Evaluation: 19:00 - Subjective Subjective: Vented Objective - Vital Signs/Intake and Output Vital Signs (last 24 hours): Temp Pulse Resp BP Pulse Ox 99.9 F H 126 H 20 104/67 97 10/16/18 16:00 10/16/18 18:00 10/16/18 18:00 10/16/18 18:00 10/16/18 18:00 Intake and Output: 10/16/18 10/17/18 18:59 06:59 Intake Total 1199 Output Total 400 Balance 799 - Medications Medications: Current Medications Allopurinol (Zyloprim) 100 mg NG DAILY GLADIS Last Admin: 09/27/18 08:16 Dose: 100 mg Famotidine (Pepcid) 20 mg IVP Q12 GLADIS Last Admin: 10/16/18 08:55 Dose: 20 mg Hydrocortisone Sodium Succinate (Solu-Cortef) 100 mg IVP Q12 GLADIS Last Admin: 10/16/18 08:54 Dose: 100 mg Vancomycin HCl 500 mg/ Sodium (Chloride) 100 mls @ 100 mls/hr IVPB Q12 GLADIS; Protocol Last Admin: 10/13/18 08:16 Dose: 100 mls/hr Meropenem 500 mg/ Sodium (Chloride) 100 mls @ 100 mls/hr IVPB Q8 GLADIS; Protocol Last Admin: 10/16/18 16:43 Dose: 100 mls/hr Norepinephrine Bitartrate 8 mg (/ Dextrose) 258 mls @ 19.35 mls/hr IV .[id number] ONE Stop: 10/17/18 07:15 Last Admin: 10/16/18 19:52 Dose: 19.35 mls/hr - Labs Labs: 10/16/18 05:31 10/16/18 05:31 PT 14.9 Seconds (9.8-13.1) H 10/03/18 04:40 INR 1.3 10/03/18 04:40 APTT 26.7 Seconds (25.6-37.1) 10/03/18 04:40 - Head Exam Head Exam: ATRAUMATIC - Eye Exam Eye Exam: Normal appearance - ENT Exam ENT Exam: Mucous Membranes Dry - Respiratory Exam Respiratory Exam: NORMAL BREATHING PATTERN - Cardiovascular Exam Cardiovascular Exam: +S1, +S2 - GI/Abdominal Exam GI & Abdominal Exam: Normal Bowel Sounds - Extremities Exam Extremities Exam: Pedal Edema Assessment and Plan (1) Anemia Assessment & Plan: anemia of chronic disease 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
[2018-10-17] MEDS: Meropenem 500 MG in Sodium Chloride 0.9% 100 ML IVPB SCH ×3 (01:20→17:20)
[2018-10-17 04:10] LABS: ABG ALLEN TEST YES; ARTERIAL BLOOD GAS HCO3 22.9 mmol/L (21-28); ARTERIAL BLOOD GAS HEMOGLOBIN 10.8 g/dL (11.7-17.4); ARTERIAL BLOOD GAS O2 CAPACITY 14.9 mL/dL (16-24); ARTERIAL BLOOD GAS O2 CONTENT 14.5 ML/dL (15-23); ARTERIAL BLOOD GAS O2 SAT 97.5 % (95-98); ARTERIAL BLOOD GAS PCO2 33 mm/Hg (35-45); ARTERIAL BLOOD GAS PH 7.42 (7.35-7.45); ARTERIAL BLOOD GAS PO2 76 mm/Hg (80-100); ARTERIAL BLOOD GAS TCO2 22.4 mmol/L (22-28)
[2018-10-17 05:26] LABS: BASO % 0.1 % (0.0-2.0); HEMOGLOBIN 10.5 g/dL (12.0-16.0); LYMPH # 0.6 K/uL (1.0-4.3); LYMPH % 3.3 % (20.0-40.0); MEAN CELL VOLUME 93.5 fl (81.0-99.0); MEAN CORPUSCULAR HEMOGLOBIN 30.2 pg (27.0-31.0); MEAN CORPUSCULAR HGB CONC 32.3 g/dL (33.0-37.0); MEAN PLATELET VOLUME 11.3 fl (7.2-11.7); MONO # 0.5 K/uL (0.0-0.8); MONO % 2.6 % (0.0-10.0); NEUT # 16.4 K/uL (1.8-7.0); RBC 3.49 Mil/uL (3.80-5.20); RED CELL DISTRIBUTION WIDTH 17.5 % (11.5-14.5); WHITE BLOOD COUNT 17.4 K/uL (4.8-10.8)
[2018-10-17 05:31] LABS: ALB/GLOB RATIO 0.7 (1.0-2.1); ALBUMIN 2.3 g/dL (3.5-5.0); CALCIUM 7.8 mg/dL (8.4-10.2)
--- NOTE | 2018-10-17 09:48 | RAD ---
Date of service: 10/17/2018 HISTORY: pt is on ventilator COMPARISON: 10/16/2018 TECHNIQUE: 1 view obtained. FINDINGS: LUNGS: Limited evaluation due to superimposed large left pleural effusion. There is likely some left-sided volume loss with shift of the heart mediastinum towards the left side. Evaluation is limited due to oblique positioning, however. PLEURA: Large left pleural effusion. No evidence of right pleural effusion. No pneumothorax. CARDIOVASCULAR: No aortic atherosclerotic calcification present. Normal cardiac size. Tracheostomy tube and left central venous infusion port unchanged. Nasogastric tube unchanged. OSSEOUS STRUCTURES: No significant abnormalities. VISUALIZED UPPER ABDOMEN: Normal. OTHER FINDINGS: None. IMPRESSION: Large left pleural effusion. Possible left-sided volume loss. Lines and tubes unchanged.
--- NOTE | 2018-10-17 12:10 | CP.PCM.PN ---
Subjective - Date & Time of Evaluation Date of Evaluation: 10/17/18 Time of Evaluation: 12:10 - Subjective Subjective: ID Note- Patient seen and examined today in ICU. remains on the vent via trache and on levophed for BP support. opens her eyes when her name is called. Objective - Vital Signs/Intake and Output Vital Signs (last 24 hours): Temp Pulse Resp BP Pulse Ox 99.1 F 105 H 23 90/59 L 98 10/17/18 10:00 10/17/18 10:00 10/17/18 10:00 10/17/18 10:00 10/17/18 10:00 Intake and Output: 10/17/18 10/17/18 06:59 18:59 Intake Total 1178 250 Output Total 850 120 Balance 328 130 - Medications Medications: Current Medications Allopurinol (Zyloprim) 100 mg NG DAILY GLADIS Last Admin: 09/27/18 08:16 Dose: 100 mg Famotidine (Pepcid) 20 mg IVP Q12 GLADIS Last Admin: 10/17/18 08:13 Dose: 20 mg Hydrocortisone Sodium Succinate (Solu-Cortef) 100 mg IVP Q12 GLADIS Last Admin: 10/17/18 08:11 Dose: 100 mg Vancomycin HCl 500 mg/ Sodium (Chloride) 100 mls @ 100 mls/hr IVPB Q12 GLADIS; Protocol Last Admin: 10/13/18 08:16 Dose: 100 mls/hr Meropenem 500 mg/ Sodium (Chloride) 100 mls @ 100 mls/hr IVPB Q8 GLADIS; Protocol Last Admin: 10/17/18 08:05 Dose: 100 mls/hr - Labs Labs: 10/17/18 05:08 10/17/18 05:08 PT 14.9 Seconds (9.8-13.1) H 10/03/18 04:40 INR 1.3 10/03/18 04:40 APTT 26.7 Seconds (25.6-37.1) 10/03/18 04:40 - Additional Findings Additional findings: - Constitutional Appears: Chronically Ill Additional comments: - Eye Exam Eye Exam: PERRL - ENT Exam Additional comments: s/p trache - Respiratory Exam Additional comments: On the vent via Trach - Cardiovascular Exam Cardiovascular Exam: Tachycardia, +S1, +S2 - GI/Abdominal Exam Additional comments: distended hypoactive BS umbilical region with mass like lesion with denuded skin , no pus + ascites - Extremities Exam Additional comments: b/l 2+ edema in LE and UE - Neurological Exam Additional comments: opens eyes when her name is called Microbiology 10/05/18 06:15 Blood Blood Culture - Final NO GROWTH AFTER 5 DAYS 10/05/18 06:15 Blood Gram Stain - Final TEST NOT PERFORMED 10/05/18 06:30 Blood Blood Culture - Final NO GROWTH AFTER 5 DAYS 10/05/18 06:30 Blood Gram Stain - Final TEST NOT PERFORMED 10/05/18 07:10 Urine,Orellana Urine Culture - Final Yeast Species 09/25/18 12:10 Blood-Thru Central Line Blood Culture - Final NO GROWTH AFTER 5 DAYS 09/25/18 12:10 Blood-Thru Central Line Gram Stain - Final TEST NOT PERFORMED 09/20/18 14:00 Blood-Thru Central Line Blood Culture - Final NO GROWTH AFTER 5 DAYS 09/20/18 17:53 Trachasp Gram Stain - Final 09/20/18 17:53 Trachasp Sputum Culture - Final Yeast Species 09/20/18 17:53 Urine,Orellana Urine Culture - Final No Growth (<1,000 CFU/ML) 09/15/18 15:35 Blood-Thru Central Line Blood Culture - Final NO GROWTH AFTER 5 DAYS 09/15/18 15:35 Blood-Thru Central Line Gram Stain - Final TEST NOT PERFORMED 09/15/18 15:25 Blood-Thru Central Line Blood Culture - Final NO GROWTH AFTER 5 DAYS 09/15/18 15:25 Blood-Thru Central Line Gram Stain - Final TEST NOT PERFORMED 09/08/18 11:49 Blood-Venous Blood Culture - Final NO GROWTH AFTER 5 DAYS 09/08/18 11:49 Blood-Venous Gram Stain - Final TEST NOT PERFORMED 09/08/18 11:49 Blood-Venous Blood Culture - Final NO GROWTH AFTER 5 DAYS 09/08/18 11:49 Blood-Venous Gram Stain - Final TEST NOT PERFORMED 09/07/18 Unknown Blood-Thru Central Line Blood Culture - Final NO GROWTH AFTER 5 DAYS 09/07/18 Unknown Blood-Thru Central Line Gram Stain - Final TEST NOT PERFORMED 09/07/18 Unknown Blood-Thru Central Line Blood Culture - Final NO GROWTH AFTER 5 DAYS 09/07/18 Unknown Blood-Thru Central Line Gram Stain - Final TEST NOT PERFORMED 09/07/18 09:07 Trachasp Gram Stain - Final 09/07/18 09:07 Trachasp Sputum Culture - Final Yeast Species 09/04/18 11:25 Naris MRSA Culture (Admit) - Final MRSA NOT DETECTED 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 remains on the vent remains on levophed afebrile leukocytosis for past 5 days CXR - Large left Pleural Effusion continues to have anemia and thrombocytopenia blood cx- neg x 10 trach asp cx- yeast stool c.diff- negative repeat UA- negative repeat urine cx- yeast PLan- check Ua and urine culture. check blood cx . leukocytosis could be secondary to large pleural effusion and may need tho racenthesis. completed 14 days of empiric vanco. vanco resumed again since she is on the vent still and lung function not improving and she is immunosuppressed to cover for HAP empirically. keep vanco trough <15. day #8 check trough in am advise to continue IV meropnem for broad spectrum gram negative coverage.day #35 completed 34 days of IV diflucan. prognosis poor. critical care time spent 30 minutes.
[2018-10-17 15:00] LABS: INR 1.2; PROTHROMBIN TIME 13.7 Seconds (9.8-13.1)
--- NOTE | 2018-10-17 16:27 | CP.PCM.PN ---
Subjective - Date & Time of Evaluation Date of Evaluation: 10/17/18 Time of Evaluation: 16:20 - Subjective Subjective: Seen and examined at the bed side. Patient continue to decline. Anasarca, continue to be intubated and unresponsive. NOK refused DNR/DNI and end of lefe care. Unstable to discharge as patient is on Pressors, and will need G-Tube to send her even to long Acute Care Facility Objective - Vital Signs/Intake and Output Vital Signs (last 24 hours): Temp Pulse Resp BP Pulse Ox 99.1 F 118 H 23 103/61 98 10/17/18 15:00 10/17/18 15:00 10/17/18 15:00 10/17/18 15:00 10/17/18 15:00 Intake and Output: 10/17/18 10/17/18 06:59 18:59 Intake Total 1178 590 Output Total 850 240 Balance 328 350 - Medications Medications: Current Medications Allopurinol (Zyloprim) 100 mg NG DAILY GLADIS Last Admin: 09/27/18 08:16 Dose: 100 mg Famotidine (Pepcid) 20 mg IVP Q12 GLADIS Last Admin: 10/17/18 08:13 Dose: 20 mg Hydrocortisone Sodium Succinate (Solu-Cortef) 100 mg IVP Q12 GLADIS Last Admin: 10/17/18 08:11 Dose: 100 mg Vancomycin HCl 500 mg/ Sodium (Chloride) 100 mls @ 100 mls/hr IVPB Q12 GLADIS; Protocol Last Admin: 10/13/18 08:16 Dose: 100 mls/hr Meropenem 500 mg/ Sodium (Chloride) 100 mls @ 100 mls/hr IVPB Q8 GLADIS; Protocol Last Admin: 10/17/18 08:05 Dose: 100 mls/hr Norepinephrine Bitartrate 16 (mg/ Dextrose) 266 mls @ 2.49 mls/hr IV .Q24H ONE; Protocol Stop: 10/18/18 15:01 - Labs Labs: 10/17/18 05:08 10/17/18 05:08 PT 13.7 Seconds (9.8-13.1) H 10/17/18 14:30 INR 1.2 10/17/18 14:30 APTT 26.7 Seconds (25.6-37.1) 10/03/18 04:40 Assessment and Plan (1) Septic shock Status: Resolved (2) Multiple organ dysfunction syndrome Status: Acute (3) Acute respiratory failure with hypoxemia Status: Acute (4) Thrombocytopenia Status: Resolved (5) Ascites, malignant Status: Acute (6) Congestive heart failure (CHF) Status: Acute (7) Stage IV breast cancer in female Status: Acute (8) Severe anemia Status: Resolved (9) DVT of lower extremity, bilateral Status: Chronic (10) Anasarca Status: Acute
--- NOTE | 2018-10-17 17:33 | CP.PCM.PN ---
Subjective - Date & Time of Evaluation Date of Evaluation: 10/17/18 Time of Evaluation: 16:00 - Subjective Subjective: Vented Objective - Vital Signs/Intake and Output Vital Signs (last 24 hours): Temp Pulse Resp BP Pulse Ox 99.1 F 118 H 23 103/61 98 10/17/18 15:00 10/17/18 15:00 10/17/18 15:00 10/17/18 15:00 10/17/18 15:00 Intake and Output: 10/17/18 10/17/18 06:59 18:59 Intake Total 1178 590 Output Total 850 240 Balance 328 350 - Medications Medications: Current Medications Allopurinol (Zyloprim) 100 mg NG DAILY GLADIS Last Admin: 09/27/18 08:16 Dose: 100 mg Famotidine (Pepcid) 20 mg IVP Q12 GLADIS Last Admin: 10/17/18 08:13 Dose: 20 mg Hydrocortisone Sodium Succinate (Solu-Cortef) 100 mg IVP Q12 GLADIS Last Admin: 10/17/18 08:11 Dose: 100 mg Vancomycin HCl 500 mg/ Sodium (Chloride) 100 mls @ 100 mls/hr IVPB Q12 GLADIS; Protocol Last Admin: 10/13/18 08:16 Dose: 100 mls/hr Meropenem 500 mg/ Sodium (Chloride) 100 mls @ 100 mls/hr IVPB Q8 GLADIS; Protocol Last Admin: 10/17/18 08:05 Dose: 100 mls/hr Norepinephrine Bitartrate 16 (mg/ Dextrose) 266 mls @ 2.49 mls/hr IV .Q24H ONE; Protocol Stop: 10/18/18 15:01 - Labs Labs: 10/17/18 05:08 10/17/18 05:08 PT 13.7 Seconds (9.8-13.1) H 10/17/18 14:30 INR 1.2 10/17/18 14:30 APTT 26.7 Seconds (25.6-37.1) 10/03/18 04:40 - Head Exam Head Exam: ATRAUMATIC - Eye Exam Eye Exam: Normal appearance - ENT Exam ENT Exam: Mucous Membranes Dry - Respiratory Exam Respiratory Exam: NORMAL BREATHING PATTERN - Cardiovascular Exam Cardiovascular Exam: +S1, +S2 - GI/Abdominal Exam GI & Abdominal Exam: Normal Bowel Sounds Assessment and Plan (1) Anemia Assessment & Plan: anemia of chronic disease [employer]IST blood loss transfusion support 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
[2018-10-18] MEDS: Meropenem 500 MG in Sodium Chloride 0.9% 100 ML IVPB SCH ×3 (00:26→16:40)
--- NOTE | 2018-10-18 01:00 | PN ---
DATE: 10/17/2018 CRITICAL CARE PROGRESS NOTE LOCATION: The patient is in ICU, bed 431. TIME SPENT: 35 minutes. The patient is seen and evaluated at the bedside. Past medical, surgical, family, social history reviewed. SUBJECTIVE: A 58-year-old female with malignant mixed mullerian tumor, right pleural effusion, malignant ascites, peritoneal carcinomatosis, status post transfusion, multiple units of packed red blood cells and platelets, status post tracheostomy, ventilated through tracheostomy. PHYSICAL EXAMINATION: VITAL SIGNS: Temperature 99.1, heart rate 118, blood pressure 101/65, mean arterial pressure of 77, off pressor support. Oxygen saturation 98%, on AC/PRVC rate 20, tidal volume 450, FiO2 of 60%, observed rate 21, observed tidal volume 400, minute ventilation 8.5 liters. No sedation. Remains lethargic. No response to verbal stimuli. HEAD, EYES, EARS, NOSE AND THROAT: Pupils are reactive. Extraocular muscles are intact. Oral mucosa moist. Face swollen. Tracheostomy site without drainage. HEART: Rhythm regular. S1, S2 normal intensity. ABDOMEN: Bowel sounds are present, distended. NEUROLOGIC: On ventilator, minimal to no response to verbal stimuli. CURRENT MEDICATIONS: Allopurinol 100 mg NG daily, Pepcid 20 mg IV every 12 hours, hydrocortisone 100 mg IV every 12 hours, meropenem 500 mL IV every 8 hours, Vancomycin 500 mg IV every 12 hours. LABORATORY DATA: WBC 17.4, hemoglobin 10.5, hematocrit 32.6, platelet count of 222, neutrophils 94, lymphocytes 3.3, monocytes 2.6. PT 14.9, INR 1.3, PTT 26.7. ABG: pH of 7.4, pCO2 of 33, pO2 of 76, saturation 97.05 on AC/PRVC 20, tidal volume 450, FiO2 60%, PEEP of 5. SMA-7: Sodium 143, potassium 4.1, chloride 112, CO2 of 21, blood urea nitrogen 14, creatinine 1.4, random glucose 131, calcium 7.8, phosphorus 8.6, magnesium 2.7, total bilirubin 0.7, AST 18, ALT 26, alkaline phosphatase 125, total protein 5.5, albumin 2.3. Vancomycin trough level 13.9. Serology: C. Diff negative. Urine culture positive for yeast species. Chest x-ray from this morning, tracheostomy tube in place, large pleural effusion with atelectasis. IMPRESSION: 1. Neurologic: No sedation. Remains lethargic with minimal response to verbal stimuli. 2. Pulmonary: Acute respiratory failure, status post tracheostomy, on ventilatory support, not a weanable candidate. 3. Cardiovascular: Hemodynamically stable, off pressors. 4. Hematology: Leukocytosis persists, multifactorial, continue meropenem, fluconazole and vancomycin. 5. Renal: Oliguria, anasarca, hypernatremia, resolved. 6. Gastrointestinal: Continue feeding as tolerated, free water 200 mL every 6 hours. 7. Infectious Disease: Multilobar pneumonia, on vancomycin, fluconazole, meropenem. Continue deep venous thrombosis prophylaxis, SCD in place. GI prophylaxis with Protonix. Orellana in place for intake and output. CODE STATUS: Full. PROGNOSIS: Remains guarded. Javid Das MD
[2018-10-18 03:51] LABS: ABG ALLEN TEST YES; ARTERIAL BLOOD GAS HCO3 23.2 mmol/L (21-28); ARTERIAL BLOOD GAS HEMOGLOBIN 8.9 g/dL (11.7-17.4); ARTERIAL BLOOD GAS O2 CAPACITY 12.3 mL/dL (16-24); ARTERIAL BLOOD GAS O2 CONTENT 12.3 ML/dL (15-23); ARTERIAL BLOOD GAS O2 SAT 99.6 % (95-98); ARTERIAL BLOOD GAS PCO2 26 mm/Hg (35-45); ARTERIAL BLOOD GAS PO2 70 mm/Hg (80-100); ARTERIAL BLOOD GAS TCO2 21.1 mmol/L (22-28)
[2018-10-18 05:48] LABS: HEMOGLOBIN 10.5 g/dL (12.0-16.0); MEAN CELL VOLUME 93.3 fl (81.0-99.0); MEAN CORPUSCULAR HEMOGLOBIN 30.4 pg (27.0-31.0); MEAN CORPUSCULAR HGB CONC 32.6 g/dL (33.0-37.0); RBC 3.46 Mil/uL (3.80-5.20); RED CELL DISTRIBUTION WIDTH 17.3 % (11.5-14.5); WHITE BLOOD COUNT 18.4 K/uL (4.8-10.8)
[2018-10-18 05:56] LABS: CALCIUM 7.9 mg/dL (8.4-10.2)
--- NOTE | 2018-10-18 11:33 | CP.CCUPN ---
CCU Subjective - Physician Review Subjective (Free Text): Observed to be consistently awake with eyes open for longer periods up to an hour or more, moves and raises R arm spontaneously. Breathing 20 on AC 20, borderline SPO2 at 94% on 60% oxygen. She did tolerate brief SBT on CPAP but required PS level up to 18 to maintain a TV of approximately 350 ml. Small amount of blood smear vaginally as noted by Nursing. No fever spikes last 24H. Temps mostly 99-100; SBPs 110s, persistent tachycardia today with HR 130s. Approx 0.40 liter positive fluid balance. ROS: No other pertinent negs or positive on 10+ system review obtainable due to lethargic status Other PMSFH: All other Nursing and physician documentation reviewed to date; no new pertinent info noted relevant to current medical problems. EXAM- HEENT: no icterus, pupils equal, 3 mm and reactive, no gaze preference, opens eyes briefly to pain, but sustained wakeful state NECK: no visible JVD, supple, carotids equal upstroke bilat/no bruits, trach stoma intact CHEST: decreased BS bases, no wheezes audible, bloody fluid drained dressing over R breast. Left chest portacath. HEART: regular, distant, tachy S1S2, no murmur audible, no rubs. ABD: soft, ++distention with ascites, no focal tenderness, BS hypoactive, dried necrotic lesion over umbilicus unchanged. Previous paracentesis puncture site still leaking ascitic fluid. EXT: + anasarca with +++ edema UEs and LEs, and arms +ulcer posterior R calf worse than L, no calf tenderness or palpable cords, distal pulses intact and symmetrical NEURO: withdraws to pain stimuli, + tone SKIN: no rashes LABS: WBC= 18.4 HGB= 10.5 PLTs = 235K COAGS: INR = 1.2 yesterday 7.50//70 Na= 144 K= 4.1 Cl= 112 HCO3= 22 BUN/Cr= 94/1.2 BS= 158 CXR: (my interp)- TT position OK with tracheal air column, persistence of Left basilar effusion with bilat compressed lung volumes, left apex is marginally aerated. IMPRESSION / MAJOR PROBLEMS NOW: 1. Acute hypoxemic Resp Failure, 2 bilat multi-lobar pneumonia 2. Persistent vaginal Bleeding 3. Severe Sepsis with shock, 2 Pneumonia, r/o bacteremia 4. Acute on Chronic disease Anemia 5. h/o DVT- bilat CFV on Feb 5. 6. s/p Paracentesis Feb 5 for 2.5 liters, and repeated Mar 7 for 3.6 liters. PLAN: 1. Consider IR eval for thoracentesis and repeat paracentesis. 2. Cardiology has cleared patient for PEG placement. GI to assess for feasibility of PEG placement in the presence of recurrent ascites and risks of ascitic fluid leakage. 3. Watch serial HGb levels, has not needed any further blood products over the past 3 weeks. 4. MV wean tolerance may improve after thoracentesis with improved lung expansion. Discuss with PMD, get Pulm opinion. 5. Steroids timed out, though no appreciable effect on vasopressor weans noted. BUN elevation still out of proportion to Cr. Continue stress ulcer prophylaxis with H2Bs. Tap water enterally via tube feeds. 6. Vanco levels below 15, could resume or as directed by ID.
--- NOTE | 2018-10-18 12:05 | CP.PCM.PN ---
Subjective - Date & Time of Evaluation Date of Evaluation: 10/18/18 Time of Evaluation: 13:00 - Subjective Subjective: SEEN ON RENAL F/U IN ICU NOT DOING WELL EDEMATOUS INTUBATED .. UNRESPONSIVE BUN STILL RISING D/W [employer] CONSULTANT Objective - Vital Signs/Intake and Output Vital Signs (last 24 hours): Temp Pulse Resp BP Pulse Ox 99.9 F H 131 H 21 113/66 100 10/18/18 08:00 10/18/18 11:00 10/18/18 11:00 10/18/18 11:00 10/18/18 11:00 Intake and Output: 10/18/18 10/18/18 06:59 18:59 Intake Total 324 240 Output Total 350 Balance -26 240 - Medications Medications: Current Medications Acetaminophen (Tylenol 650mg/20.3ml Solution Ud) 650 mg GT Q6 PRN PRN Reason: Temperature Allopurinol (Zyloprim) 100 mg NG DAILY GLADIS Last Admin: 09/27/18 08:16 Dose: 100 mg Famotidine (Pepcid) 20 mg IVP Q12 GLADIS Last Admin: 10/18/18 09:05 Dose: 20 mg Vancomycin HCl 500 mg/ Sodium (Chloride) 100 mls @ 100 mls/hr IVPB Q12 GLADIS; Protocol Last Admin: 10/13/18 08:16 Dose: 100 mls/hr Meropenem 500 mg/ Sodium (Chloride) 100 mls @ 100 mls/hr IVPB Q8 GLADIS; Protocol Last Admin: 10/18/18 09:05 Dose: 100 mls/hr Norepinephrine Bitartrate 16 (mg/ Dextrose) 266 mls @ 2.49 mls/hr IV .Q24H ONE; Protocol Stop: 10/18/18 15:01 Last Titration: 10/17/18 22:25 Dose: 20 mcg/min, 19.95 mls/hr - Labs Labs: 10/18/18 05:38 10/18/18 05:38 PT 13.7 Seconds (9.8-13.1) H 10/17/18 14:30 INR 1.2 10/17/18 14:30 APTT 26.7 Seconds (25.6-37.1) 10/03/18 04:40 Assessment and Plan - Assessment and Plan (Free Text) Assessment: PRE RENAL AZOTEMIA .. STEROIDS GI BLEED ? POOR PROGNOSIS C/O SUPPORTIVE CARE STILL FULL CODE
[2018-10-18] MEDS: Acetaminophen 650mg/20.3ml solution UD GT PRN ×2 (12:17→18:36)
--- NOTE | 2018-10-18 23:27 | CP.PCM.CON ---
History of Present Illness - History of Present Illness History of Present Illness: Consultation for preop cardiac risk stratification HPI: 58-year-old female with metastatic breast cancer who was admitted to the [facility] room on September 03 for intermittent episode of chest pain and shortness of breath that started 2 days prior to presentation patient had also noticed bilateral lower extremity swelling ongoing for a few months prior to presentation she has started chemotherapy for breast cancer about 2days prior to admission patient next day after the admission had a SURVEYOR MINE for respiratory distress and was emergently intubated she had past medical history significant for anemia anxiety CHF DVT pulmonary embolism and a stage IV metastatic CA status post chemotherapy 2 days prior to presentation patient was transfused 1 unit of packed RBCs for hemoglobin of 6.9 and had recently underwent a paracentesis. SURVEYOR MINE was called for hypoxemia with a saturation of 88% for which she was given IV Lasix. Patient had a prolonged hospitalization course I was called to for preoperative risk stratification prior to a PEG tube placement at the time of my evaluation patient was minimally responsive on vasopressors IV L evophed. She was tachycardic with bilateral crackles and fluid overload. Review of Systems - Review of Systems Systems not reviewed;Unavailable: Unstable Vital Signs, Respiratory Distress, Altered Mental Status, Intubated - Constitutional Constitutional: As Per HPI - EENT Eyes: As Per HPI Ears: As Per HPI - Breasts Breasts: As Per HPI - Cardiovascular Cardiovascular: As Per HPI - Respiratory Respiratory: As Per HPI - Gastrointestinal Gastrointestinal: As Per HPI - Genitourinary Genitourinary: As Per HPI - Reproductive: Female Reproductive:Female: As Per HPI - Menstruation Menstruation: As Per HPI - Musculoskeletal Musculoskeletal: As Per HPI - Integumentary Integumentary: As Per HPI - Neurological Neurological: As Per HPI - Psychiatric Psychiatric: As Per HPI - Endocrine Endocrine: As Per HPI - Hematologic/Lymphatic Hematologic: As Per HPI Past Patient History - Infectious Disease Hx of Infectious Diseases: None - Past Medical History & Family History Past Medical History?: Yes Past Family History: Reviewed and not pertinent - Past Social History Smoking Status: Former Smoker Alcohol: None Drugs: Denies - CARDIAC Hx Congestive Heart Failure: Yes Hx Peripheral Edema: Yes - PULMONARY Hx Asthma: No Hx Pulmonary Embolism: Yes - NEUROLOGICAL Hx Neurological Disorder: No - HEENT Hx HEENT Problems: No - RENAL Hx Chronic Kidney Disease: No - ENDOCRINE/METABOLIC Hx Endocrine Disorders: No - HEMATOLOGICAL/ONCOLOGICAL Hx Anemia: Yes - INTEGUMENTARY Hx Dermatological Problems: No - MUSCULOSKELETAL/RHEUMATOLOGICAL Hx Arthritis: No - GASTROINTESTINAL Hx Gastrointestinal Disorders: No - GENITOURINARY/GYNECOLOGICAL Hx Genitourinary Disorders: No - PSYCHIATRIC Hx Anxiety: Yes - SURGICAL HISTORY Hx Surgeries: Yes Hx Section: Yes Other/Comment: right breast bx - ANESTHESIA Hx Anesthesia: Yes Hx Anesthesia Reactions: No Hx Malignant Hyperthermia: No Meds Allergies/Adverse Reactions: Allergies Allergy/AdvReac Type Severity Reaction Status Date / Time midodrine Allergy RASH Verified 09/29/18 15:32 phenylephrine Allergy RASH Verified 09/29/18 15:32 acetaminophen [From Tylenol] AdvReac Unknown SHORTNESS Verified 08/29/18 08:11 OF BREATH - Medications Medications: Current Medications Allopurinol (Zyloprim) 100 mg NG DAILY GLADIS Last Admin: 09/27/18 08:16 Dose: 100 mg Famotidine (Pepcid) 20 mg IVP Q12 GLADIS Last Admin: 10/18/18 21:19 Dose: 20 mg Vancomycin HCl 500 mg/ Sodium (Chloride) 100 mls @ 100 mls/hr IVPB Q12 GLADIS; Protocol Last Admin: 10/18/18 21:20 Dose: 100 mls/hr Meropenem 500 mg/ Sodium (Chloride) 100 mls @ 100 mls/hr IVPB Q8 GLADIS; Protocol Last Admin: 10/18/18 16:40 Dose: 100 mls/hr Physical Exam - Constitutional Appears: Toxic - Head Exam Head Exam: ATRAUMATIC, NORMOCEPHALIC - Eye Exam Pupil Exam: PERRL - ENT Exam Additional comments: ETT - Respiratory Exam Respiratory Exam: Rales, Rhonchi, Respiratory Distress - Cardiovascular Exam Cardiovascular Exam: Tachycardia, RRR, +S1, +S2, Systolic Murmur - GI/Abdominal Exam GI & Abdominal Exam: Soft - Extremities Exam Extremities exam: Positive for: pedal pulses present - Neurological Exam Neurological exam: Altered Results - Vital Signs Recent Vital Signs: Last Vital Signs Temp 100.6 F H 10/18/18 19:36 Pulse 134 H 10/18/18 18:00 Resp 20 10/18/18 18:00 BP 103/60 10/18/18 18:00 Pulse Ox 99 10/18/18 18:00 - Labs Result Diagrams: 11/01/18 05:40 11/01/18 05:40 Labs: Laboratory Results - last 24 hr 10/17/18 10/18/18 10/18/18 07:58 03:27 05:38 WBC 18.4 H RBC 3.46 L Hgb 10.5 L Hct 32.3 L MCV 93.3 MCH 30.4 MCHC 32.6 L RDW 17.3 H Plt Count 235 pCO2 26 L pO2 70 L HCO3 23.2 ABG pH 7.50 H ABG Total CO2 21.1 L ABG O2 Saturation 99.6 H ABG O2 Content 12.3 L ABG Base Excess -2.2 L ABG Hemoglobin 8.9 L ABG Carboxyhemoglobin 1.4 POC ABG HHb (Measured) 0.4 ABG Methemoglobin 1.0 ABG O2 Capacity 12.3 L Frederic Test Yes A-a O2 Difference 325.0 Hgb O2 Saturation 97.3 Vent Mode A/c Mechanical Rate 20 FiO2 60.0 Tidal Volume 450 PEEP 5 Sodium Potassium Chloride Carbon Dioxide Anion Gap BUN Creatinine Est GFR ( Amer) Est GFR (Non-Af Amer) Random Glucose Calcium C. difficile Ag & Toxin Negative 10/18/18 05:38 WBC RBC Hgb Hct MCV MCH MCHC RDW Plt Count pCO2 pO2 HCO3 ABG pH ABG Total CO2 ABG O2 Saturation ABG O2 Content ABG Base Excess ABG Hemoglobin ABG Carboxyhemoglobin POC ABG HHb (Measured) ABG Methemoglobin ABG O2 Capacity Frederic Test A-a O2 Difference Hgb O2 Saturation Vent Mode Mechanical Rate FiO2 Tidal Volume PEEP Sodium 144 Potassium 4.1 Chloride 112 H Carbon Dioxide 22 Anion Gap 14 BUN 94 H Creatinine 1.2 Est GFR ( Amer) 55 Est GFR (Non-Af Amer) 46 Random Glucose 158 H Calcium 7.9 L C. difficile Ag & Toxin Assessment & Plan (1) Preop cardiovascular exam Assessment and Plan: as per ACC/AHA guideline she is high risk for any surgical procedure Status: Acute (2) Ascites, malignant Status: Acute Priority: High (3) Congestive heart failure (CHF) Status: Acute Priority: High (4) Multiple organ dysfunction syndrome Status: Acute (5) Septic shock Status: Resolved (6) Thrombocytopenia Status: Resolved (7) Stage IV breast cancer in female Status: Acute Priority: High
[2018-10-19] MEDS: Meropenem 500 MG in Sodium Chloride 0.9% 100 ML IVPB SCH ×3 (01:03→16:33)
[2018-10-19 04:26] LABS: ABG ALLEN TEST YES; ARTERIAL BLOOD GAS HCO3 23.1 mmol/L (21-28); ARTERIAL BLOOD GAS HEMOGLOBIN 10.6 g/dL (11.7-17.4); ARTERIAL BLOOD GAS O2 CAPACITY 14.9 mL/dL (16-24); ARTERIAL BLOOD GAS O2 CONTENT 14.9 ML/dL (15-23); ARTERIAL BLOOD GAS O2 SAT 100.1 % (95-98); ARTERIAL BLOOD GAS PCO2 27 mm/Hg (35-45); ARTERIAL BLOOD GAS PH 7.48 (7.35-7.45); ARTERIAL BLOOD GAS PO2 141 mm/Hg (80-100); ARTERIAL BLOOD GAS TCO2 20.9 mmol/L (22-28)
[2018-10-19 05:30] LABS: HEMOGLOBIN 10.2 g/dL (12.0-16.0); MEAN CELL VOLUME 94.5 fl (81.0-99.0); MEAN CORPUSCULAR HEMOGLOBIN 30.4 pg (27.0-31.0); MEAN CORPUSCULAR HGB CONC 32.2 g/dL (33.0-37.0); RBC 3.36 Mil/uL (3.80-5.20); RED CELL DISTRIBUTION WIDTH 17.7 % (11.5-14.5); WHITE BLOOD COUNT 16.7 K/uL (4.8-10.8)
[2018-10-19 05:34] LABS: CALCIUM 7.4 mg/dL (8.4-10.2)
--- NOTE | 2018-10-19 07:30 | CP.CCUPN ---
CCU Subjective - Physician Review Subjective (Free Text): Unchanged neuromental status from my description yesterday. Breathing 20 on AC 20. Had fever spike yesterday to 101F, otherwise Temps mostly 99-100F. SBPs 110s, persistent tachycardia today with HR 110s. Approx 2.00 liter positive fluid balance. ROS: No other pertinent negs or positive on 10+ system review obtainable due to lethargic status Other PMSFH: All other Nursing and physician documentation reviewed to date; no new pertinent info noted relevant to current medical problems. EXAM- HEENT: no icterus, pupils equal, 3 mm and reactive, no gaze preference, opens eyes briefly to pain, but sustained wakeful state NECK: no visible JVD, supple, carotids equal upstroke bilat/no bruits, trach stoma intact CHEST: decreased BS bases, no wheezes audible, bloody fluid drained dressing over R breast. Left chest portacath. HEART: regular, distant, tachy S1S2, no murmur audible, no rubs. ABD: soft, ++distention with ascites, no focal tenderness, BS hypoactive, dried necrotic lesion over umbilicus unchanged. Previous paracentesis puncture site still leaking ascitic fluid. EXT: + anasarca with +++ edema UEs and LEs, and arms +ulcer posterior R calf worse than L, no calf tenderness or palpable cords, distal pulses intact and symmetrical NEURO: withdraws to pain stimuli, + tone SKIN: no rashes LABS: WBC= 16.7 HGB= 10.2 PLTs = 232K 7.48/27/141 Na= 148 K= 3.8 Cl= 120 HCO3= 22 BUN/Cr= 95/2.0 BS= 136 CXR: (my interp)- no changes from yesterdays film- TT position OK with tracheal air column, persistence of Left basilar effusion with bilat compressed lung volumes, left apex is marginally aerated. IMPRESSION / MAJOR PROBLEMS NOW: 1. Acute hypoxemic Resp Failure, 2 bilat multi-lobar pneumonia 2. Persistent vaginal Bleeding 3. Severe Sepsis with shock, 2 Pneumonia, r/o bacteremia 4. Acute on Chronic disease Anemia 5. h/o DVT- bilat CFV on Fe 5. 6. s/p Paracentesis Fe 5 for 2.5 liters, and repeated Mar 7 for 3.6 liters. PLAN: 1. Decrease AC rate to 12, to avoid excessive ventilation and alkalosis. Try 50% fiO2. No other MV weans contemplated. Consider IR eval for thoracentesis and repeat paracentesis. MV wean tolerance may improve after thoracentesis with improved lung expansion. Discuss with PMD, get Pulm opinion. 2. Clearance for PEG placement. GI to assess for feasibility of PEG placement in the presence of recurrent ascites and risks of ascitic fluid leakage. 3. Watch serial HGb levels, has not needed any further blood products over the past 3 weeks. 4. Suspect recurrent fevers due to tumor burden, but will re-panculture prn. WBCs without concomitant elevation. 5. Steroids timed out, though no appreciable effect on vasopressor weans noted. BUN elevation still out of proportion to Cr. She is in positive fluid balance; no gross GI bleeding evident. Continue stress ulcer prophylaxis with H2Bs. Tap water enterally via tube feeds. 6. Vanco levels below 15, could resume or as directed by ID.
--- NOTE | 2018-10-19 07:46 | RAD ---
Date of service: 10/19/2018 HISTORY: trach'd COMPARISON: Portable chest 10/18/2018 TECHNIQUE: 1 view obtained. FINDINGS: Tracheostomy and orogastric tubes unchanged in position. Left MediPort unchanged as well. LUNGS: No definite right-sided infiltrate. Large left pleural effusion unchanged with stable but limited aeration remaining at the left apex. Underlying mid and inferior left pulmonary atelectasis or consolidation not excluded. No right pleural effusion. No pneumothorax bilaterally. PLEURA: As above. CARDIOVASCULAR: No aortic atherosclerotic calcification present. Cardiac size obscured by left-sided pulmonary opacity. No pulmonary vascular congestion. OSSEOUS STRUCTURES: No significant abnormalities. VISUALIZED UPPER ABDOMEN: Normal. OTHER FINDINGS: None. IMPRESSION: Stable large left pleural effusion with underlying airspace disease not excluded at the mid to inferior left lung zone. No right pleural effusion or infiltrate. No pulmonary vascular congestion grossly evident.
--- NOTE | 2018-10-19 11:26 | RAD ---
Date of service: 10/18/2018 HISTORY: trach'd COMPARISON: Portable chest 10/17/2018. TECHNIQUE: 1 view obtained. FINDINGS: LUNGS: Tracheostomy tube, nasogastric tube and left MediPort unchanged in position. Large left pleural effusion unchanged with limited aeration of the left upper lobe remaining once again. No pneumothorax bilaterally. Right chest remains clear. PLEURA: As above. CARDIOVASCULAR: No aortic atherosclerotic calcification present. Normal cardiac size. No pulmonary vascular congestion. OSSEOUS STRUCTURES: No significant abnormalities. VISUALIZED UPPER ABDOMEN: Normal. OTHER FINDINGS: None. IMPRESSION: Stable prominent left pleural effusion with underlying atelectasis or infiltrate remaining at the mid to inferior left lung zone. Right chest remains clear. Tubes and catheters as discussed above, stable.
--- NOTE | 2018-10-19 17:14 | CP.PCM.PN ---
Subjective - Date & Time of Evaluation Date of Evaluation: 10/19/18 Time of Evaluation: 17:12 - Subjective Subjective: no overnight events Objective - Vital Signs/Intake and Output Vital Signs (last 24 hours): Temp Pulse Resp BP Pulse Ox 99.9 F H 141 H 21 101/54 L 97 10/19/18 16:00 10/19/18 16:00 10/19/18 16:00 10/19/18 16:00 10/19/18 16:00 Intake and Output: 10/19/18 10/19/18 06:59 18:59 Intake Total 1236 698 Output Total 50 Balance 1236 648 - Medications Medications: Current Medications Allopurinol (Zyloprim) 100 mg NG DAILY GLADIS Last Admin: 09/27/18 08:16 Dose: 100 mg Famotidine (Pepcid) 20 mg IVP Q12 GLADIS Last Admin: 10/19/18 08:38 Dose: 20 mg Vancomycin HCl 500 mg/ Sodium (Chloride) 100 mls @ 100 mls/hr IVPB Q12 GLADIS; Protocol Last Admin: 10/19/18 11:28 Dose: 100 mls/hr Meropenem 500 mg/ Sodium (Chloride) 100 mls @ 100 mls/hr IVPB Q8 GLADIS; Protocol Last Admin: 10/19/18 16:33 Dose: 100 mls/hr - Labs Labs: 10/19/18 05:17 10/19/18 05:17 PT 13.7 Seconds (9.8-13.1) H 10/17/18 14:30 INR 1.2 10/17/18 14:30 APTT 26.7 Seconds (25.6-37.1) 10/03/18 04:40 - Neck Exam Neck Exam: Normal Inspection - Respiratory Exam Respiratory Exam: Rhonchi - Cardiovascular Exam Cardiovascular Exam: REGULAR RHYTHM - GI/Abdominal Exam GI & Abdominal Exam: Soft, Normal Bowel Sounds Assessment and Plan - Assessment and Plan (Free Text) Assessment: 58 yo female with terminal metastatic disease request of service for placement of PEG tube if we are to pursue this, will need paracentesis and thoracentesis and ideally to be off pressors for now cont current plan prognosis poor
--- NOTE | 2018-10-19 19:15 | CP.PCM.PN ---
Subjective - Date & Time of Evaluation Date of Evaluation: 10/19/18 Time of Evaluation: 19:12 - Subjective Subjective: intubated trac ?pre-renal bun up creat up na up suggest increasing free water a bit serial chems prognosis poor. MPRESSION / MAJOR PROBLEMS NOW: 1. Acute hypoxemic Resp Failure, 2 bilat multi-lobar pneumonia 2. Persistent vaginal Bleeding 3. Severe Sepsis with shock, 2 Pneumonia, r/o bacteremia 4. Acute on Chronic disease Anemia 5. h/o DVT- bilat CFV on Aug 5. 6. s/p Paracentesis Aug 5 for 2.5 liters, and repeated Sep 28 for 3.6 liters. 7 LOUIE ? pre-renal Objective - Vital Signs/Intake and Output Vital Signs (last 24 hours): Temp Pulse Resp BP Pulse Ox 100.6 F H 136 H 24 89/59 L 99 10/19/18 18:00 10/19/18 18:00 10/19/18 18:00 10/19/18 18:00 10/19/18 18:00 Intake and Output: 10/19/18 10/20/18 18:59 06:59 Intake Total 1086 Output Total 252 Balance 834 - Medications Medications: Current Medications Allopurinol (Zyloprim) 100 mg NG DAILY GLADIS Last Admin: 09/27/18 08:16 Dose: 100 mg Famotidine (Pepcid) 20 mg IVP Q12 GLADIS Last Admin: 10/19/18 08:38 Dose: 20 mg Vancomycin HCl 500 mg/ Sodium (Chloride) 100 mls @ 100 mls/hr IVPB Q12 GLADIS; Protocol Last Admin: 10/19/18 11:28 Dose: 100 mls/hr Meropenem 500 mg/ Sodium (Chloride) 100 mls @ 100 mls/hr IVPB Q8 GLADIS; Protocol Last Admin: 10/19/18 16:33 Dose: 100 mls/hr - Labs Labs: 10/19/18 05:17 10/19/18 05:17 PT 13.7 Seconds (9.8-13.1) H 10/17/18 14:30 INR 1.2 10/17/18 14:30 APTT 26.7 Seconds (25.6-37.1) 10/03/18 04:40 - Constitutional Appears: Toxic - Head Exam Head Exam: ATRAUMATIC - ENT Exam ENT Exam: Mucous Membranes Dry - Respiratory Exam Respiratory Exam: Rales - Cardiovascular Exam Cardiovascular Exam: Tachycardia - GI/Abdominal Exam GI & Abdominal Exam: Soft - Neurological Exam Neurological Exam: Altered - Skin Skin Exam: Normal Color, Warm Assessment and Plan - Assessment and Plan (Free Text) Assessment: louie Plan: increase free water if possible. inc to 300 q6h
--- NOTE | 2018-10-19 23:47 | CP.PCM.PN ---
Subjective - Date & Time of Evaluation Date of Evaluation: 10/18/18 Time of Evaluation: 18:25 - Subjective Subjective: Seen and examined at the bed side. Patient continue to decline. Anasarca, continue to be intubated and unresponsive. NOK refused DNR/DNI and end of lefe care. Unstable to discharge as patient is on Pressors, and will need G-Tube to send her even to [facility] Objective - Vital Signs/Intake and Output Vital Signs (last 24 hours): Temp Pulse Resp BP Pulse Ox 100.6 F H 136 H 24 89/59 L 99 10/19/18 18:00 10/19/18 18:00 10/19/18 18:00 10/19/18 18:00 10/19/18 18:00 Intake and Output: 10/19/18 10/20/18 18:59 06:59 Intake Total 1086 Output Total 252 Balance 834 - Medications Medications: Current Medications Allopurinol (Zyloprim) 100 mg NG DAILY GLADIS Last Admin: 09/27/18 08:16 Dose: 100 mg Famotidine (Pepcid) 20 mg IVP Q12 GLADIS Last Admin: 10/19/18 22:10 Dose: 20 mg Vancomycin HCl 500 mg/ Sodium (Chloride) 100 mls @ 100 mls/hr IVPB Q12 GLADIS; Protocol Last Admin: 10/19/18 22:10 Dose: 100 mls/hr Meropenem 500 mg/ Sodium (Chloride) 100 mls @ 100 mls/hr IVPB Q8 GLADIS; Protocol Last Admin: 10/19/18 16:33 Dose: 100 mls/hr - Labs Labs: 10/19/18 05:17 10/19/18 05:17 PT 13.7 Seconds (9.8-13.1) H 10/17/18 14:30 INR 1.2 10/17/18 14:30 APTT 26.7 Seconds (25.6-37.1) 10/03/18 04:40 Assessment and Plan (1) Septic shock Status: Resolved (2) Multiple organ dysfunction syndrome Status: Acute (3) Acute respiratory failure with hypoxemia Status: Acute (4) Thrombocytopenia Status: Resolved (5) Ascites, malignant Status: Acute (6) Congestive heart failure (CHF) Status: Acute (7) Stage IV breast cancer in female Status: Acute (8) Severe anemia Status: Resolved (9) DVT of lower extremity, bilateral Status: Chronic (10) Anasarca Status: Acute - Assessment and Plan (Free Text) Plan: Continue Current Care
--- NOTE | 2018-10-20 00:27 | CP.PCM.PN ---
Subjective - Date & Time of Evaluation Date of Evaluation: 10/18/18 Time of Evaluation: 19:00 - Subjective Subjective: Vented Objective - Vital Signs/Intake and Output Vital Signs (last 24 hours): Temp Pulse Resp BP Pulse Ox 100.6 F H 136 H 24 89/59 L 99 10/19/18 18:00 10/19/18 18:00 10/19/18 18:00 10/19/18 18:00 10/19/18 18:00 Intake and Output: 10/19/18 10/20/18 18:59 06:59 Intake Total 1086 0 Output Total 252 Balance 834 0 - Medications Medications: Current Medications Allopurinol (Zyloprim) 100 mg NG DAILY GLADIS Last Admin: 09/27/18 08:16 Dose: 100 mg Famotidine (Pepcid) 20 mg IVP Q12 GLADIS Last Admin: 10/19/18 22:10 Dose: 20 mg Vancomycin HCl 500 mg/ Sodium (Chloride) 100 mls @ 100 mls/hr IVPB Q12 GLADIS; Protocol Last Admin: 10/19/18 22:10 Dose: 100 mls/hr Meropenem 500 mg/ Sodium (Chloride) 100 mls @ 100 mls/hr IVPB Q8 GLADIS; Protocol Last Admin: 10/19/18 16:33 Dose: 100 mls/hr - Labs Labs: 10/19/18 05:17 10/19/18 05:17 PT 13.7 Seconds (9.8-13.1) H 10/17/18 14:30 INR 1.2 10/17/18 14:30 APTT 26.7 Seconds (25.6-37.1) 10/03/18 04:40 - Head Exam Head Exam: ATRAUMATIC - Eye Exam Eye Exam: Normal appearance - ENT Exam ENT Exam: Mucous Membranes Dry - Respiratory Exam Respiratory Exam: Decreased Breath Sounds - Cardiovascular Exam Cardiovascular Exam: +S1, +S2 - GI/Abdominal Exam GI & Abdominal Exam: Normal Bowel Sounds - Extremities Exam Extremities Exam: Pedal Edema Assessment and Plan (1) Anemia Assessment & Plan: anemia of chronic disease PERFORMANCE SPECIALIST blood loss transfusion support 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
--- NOTE | 2018-10-20 00:29 | CP.PCM.PN ---
Subjective - Date & Time of Evaluation Date of Evaluation: 10/19/18 Time of Evaluation: 12:00 - Subjective Subjective: Vented. Objective - Vital Signs/Intake and Output Vital Signs (last 24 hours): Temp Pulse Resp BP Pulse Ox 100.6 F H 136 H 24 89/59 L 99 10/19/18 18:00 10/19/18 18:00 10/19/18 18:00 10/19/18 18:00 10/19/18 18:00 Intake and Output: 10/19/18 10/20/18 18:59 06:59 Intake Total 1086 0 Output Total 252 Balance 834 0 - Medications Medications: Current Medications Allopurinol (Zyloprim) 100 mg NG DAILY GLADIS Last Admin: 09/27/18 08:16 Dose: 100 mg Famotidine (Pepcid) 20 mg IVP Q12 GLADIS Last Admin: 10/19/18 22:10 Dose: 20 mg Vancomycin HCl 500 mg/ Sodium (Chloride) 100 mls @ 100 mls/hr IVPB Q12 GLADIS; Protocol Last Admin: 10/19/18 22:10 Dose: 100 mls/hr Meropenem 500 mg/ Sodium (Chloride) 100 mls @ 100 mls/hr IVPB Q8 GLADIS; Protocol Last Admin: 10/19/18 16:33 Dose: 100 mls/hr - Labs Labs: 10/19/18 05:17 10/19/18 05:17 PT 13.7 Seconds (9.8-13.1) H 10/17/18 14:30 INR 1.2 10/17/18 14:30 APTT 26.7 Seconds (25.6-37.1) 10/03/18 04:40 - Head Exam Head Exam: ATRAUMATIC - Eye Exam Eye Exam: Normal appearance - ENT Exam ENT Exam: Mucous Membranes Dry - Respiratory Exam Respiratory Exam: Decreased Breath Sounds - Cardiovascular Exam Cardiovascular Exam: +S1, +S2 - GI/Abdominal Exam GI & Abdominal Exam: Normal Bowel Sounds - Extremities Exam Extremities Exam: Pedal Edema Assessment and Plan (1) Anemia Assessment & Plan: anemia of chronic disease OFFICE SUPPORT ASSOCIATE blood loss transfusion support 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
[2018-10-20] MEDS: Meropenem 500 MG in Sodium Chloride 0.9% 100 ML IVPB SCH ×2 (01:24→12:10)
[2018-10-20] MEDS ORDERED: Dextrose 5%/0.45% NS 1,000 ML IV SCH (02:00)
[2018-10-20 05:44] LABS: ABG ALLEN TEST YES; ARTERIAL BLOOD GAS HEMOGLOBIN 10.1 g/dL (11.7-17.4); ARTERIAL BLOOD GAS O2 CAPACITY 13.9 mL/dL (16-24); ARTERIAL BLOOD GAS O2 CONTENT 13.9 ML/dL (15-23); ARTERIAL BLOOD GAS O2 SAT 99.8 % (95-98); ARTERIAL BLOOD GAS PCO2 34 mm/Hg (35-45); ARTERIAL BLOOD GAS PH 7.39 (7.35-7.45); ARTERIAL BLOOD GAS PO2 99 mm/Hg (80-100); ARTERIAL BLOOD GAS TCO2 21.6 mmol/L (22-28)
[2018-10-20 06:01] LABS: BASO % 0.2 % (0.0-2.0); HEMOGLOBIN 9.7 g/dL (12.0-16.0); INR 1.3; LYMPH # 0.6 K/uL (1.0-4.3); LYMPH % 3.9 % (20.0-40.0); MEAN CELL VOLUME 95.2 fl (81.0-99.0); MEAN CORPUSCULAR HEMOGLOBIN 31.2 pg (27.0-31.0); MEAN CORPUSCULAR HGB CONC 32.8 g/dL (33.0-37.0); MEAN PLATELET VOLUME 11.2 fl (7.2-11.7); MONO # 0.5 K/uL (0.0-0.8); MONO % 3.4 % (0.0-10.0); NEUT # 14.9 K/uL (1.8-7.0); NEUT % 92.5 % (50.0-75.0); PLATELET COUNT 201 K/uL (130-400); PROTHROMBIN TIME 14.3 Seconds (9.8-13.1); RBC 3.09 Mil/uL (3.80-5.20); RED CELL DISTRIBUTION WIDTH 18.2 % (11.5-14.5); WHITE BLOOD COUNT 16.1 K/uL (4.8-10.8)
[2018-10-20 06:03] LABS: PARTIAL THROMBOPLASTIN TIME 29.5 Seconds (25.6-37.1)
[2018-10-20 06:30] LABS: ALB/GLOB RATIO 0.7 (1.0-2.1); ALBUMIN 2.3 g/dL (3.5-5.0); ALT/SGPT 26 U/L (9-52); AST/SGOT 35 U/L (14-36); BLOOD UREA NITROGEN 85 mg/dl (7-17); CALCIUM 7.6 mg/dL (8.4-10.2); GFR NON-AFRICAN AMERICAN 51
--- NOTE | 2018-10-20 08:39 | RAD ---
Date of service: 10/20/2018 HISTORY: pt is on ventilator COMPARISON: Portable chest 10/19/2018. TECHNIQUE: 1 view obtained. FINDINGS: LUNGS: Tracheostomy tube and orogastric tubes are unchanged in position as well as left MediPort. No interval change in large left pleural effusion with underlying airspace disease not excluded the left mid to inferior lung zones once again. Right chest remains clear. No pneumothorax bilaterally. PLEURA: As above. CARDIOVASCULAR: No aortic atherosclerotic calcification present. Normal cardiac size. No pulmonary vascular congestion. OSSEOUS STRUCTURES: No significant abnormalities. VISUALIZED UPPER ABDOMEN: Normal. OTHER FINDINGS: None. IMPRESSION: Stable large left pleural effusion without significant interval change. Underlying mid to inferior left-sided pulmonary consolidation not excluded. Right chest remains clear.
--- NOTE | 2018-10-20 08:47 | CP.CCUPN ---
CCU Subjective - Physician Review Subjective (Free Text): No overall improvement in neuromental status from my description yesterday. Breathing 17 on AC 12 Still Levophed dependent , otherwise Temps mostly 99- 100F. SBPs 90s, HR 120s. SBPs 110s, persistent tachycardia today with HR 110s. Approx 1.2 liter positive fluid balance last 24H. ROS: No other pertinent negs or positive on 10+ system review obtainable due to lethargic status Other PMSFH: All other Nursing and physician documentation reviewed to date; no new pertinent info noted relevant to current medical problems. EXAM- HEENT: no icterus, pupils equal, 3 mm and reactive, no gaze preference, opens eyes briefly to pain, but sustained wakeful state NECK: no visible JVD, supple, carotids equal upstroke bilat/no bruits, trach stoma intact CHEST: decreased BS bases, no wheezes audible, bloody fluid drained dressing over R breast. Left chest portacath. HEART: regular, distant, tachy S1S2, no murmur audible, no rubs. ABD: soft, ++distention with ascites, no focal tenderness, BS hypoactive, dried necrotic lesion over umbilicus unchanged. Previous paracentesis puncture site still leaking ascitic fluid. EXT: + anasarca with +++ edema UEs and LEs, and arms +ulcer posterior R calf worse than L, no calf tenderness or palpable cords, distal pulses intact and symmetrical NEURO: withdraws to pain stimuli, + tone SKIN: no rashes LABS: WBC= 16.1 HGB= 9.7 PLTs = 201K 7.39/34/99 Na= 144 K= 3.8 Cl= 113 HCO3= 22 BUN/Cr= 85/1.1 BS= 122 CXR: (my interp)- same as yesterdays film- TT position OK with tracheal air column, persistence of Left basilar effusion with bilat compressed lung volumes, left apex is marginally aerated. IMPRESSION / MAJOR PROBLEMS NOW: 1. Acute hypoxemic Resp Failure, 2 bilat multi-lobar pneumonia 2. Persistent vaginal Bleeding 3. Severe Sepsis with shock, 2 Pneumonia, r/o bacteremia 4. Acute on Chronic disease Anemia 5. h/o DVT- bilat CFV on Fe 5. 6. s/p Paracentesis Aug 5 for 2.5 liters, and repeated Mar 7 for 3.6 liters. PLAN: 1. Decreased AC rate to 12, and tolerated 50% fiO2. No other MV weans contemplated. Consider IR eval for thoracentesis and repeat paracentesis. MV wean tolerance may improve after thoracentesis with improved lung expansion. 2. Clearance for PEG placement. GI to assess for feasibility of PEG placement in the presence of recurrent ascites and risks of ascitic fluid leakage. Still not off vasopressors. 3. Watch serial HGb levels, has not needed any further blood products over the past 3 weeks. 4. Suspect recurrent fevers due to tumor burden, but will re-panculture prn. WBCs without concomitant elevation. 5. BUN Cr finally improving with increased free water administration.
[2018-10-20 09:19] LABS: ANISOCYTOSIS SLIGHT; HYPOCHROMIC SLIGHT; LARGE PLATELETS PRESENT; LYMPHOCYTE 4 % (20-50); MONOCYTE 4 % (0-10); NEUTROPHIL 92 % (42-75); OVALOCYTES SLIGHT; PLATELET ESTIMATE NORMAL (NORMAL); TOTAL CELLS COUNTED 100
--- NOTE | 2018-10-20 10:19 | CP.PCM.PN ---
Subjective - Date & Time of Evaluation Date of Evaluation: 10/20/18 Time of Evaluation: 10:18 - Subjective Subjective: ID Note- Pt. seen and examined today in ICU. pt. just returned from having both paracenthesis and thoracenthesis by IR. Pt. still vented via trache but she is awake. still on low dose levophed for BP support. Objective - Vital Signs/Intake and Output Vital Signs (last 24 hours): Temp Pulse Resp BP Pulse Ox 99.1 F 121 H 16 95/57 L 100 10/20/18 08:00 10/20/18 08:59 10/20/18 08:59 10/20/18 08:59 10/20/18 08:59 Intake and Output: 10/20/18 10/20/18 06:59 18:59 Intake Total 1339 Output Total 900 0 Balance 439 0 - Medications Medications: Current Medications Allopurinol (Zyloprim) 100 mg NG DAILY GLADIS Last Admin: 09/27/18 08:16 Dose: 100 mg Famotidine (Pepcid) 20 mg IVP Q12 GLADIS Last Admin: 10/19/18 22:10 Dose: 20 mg Vancomycin HCl 500 mg/ Sodium (Chloride) 100 mls @ 100 mls/hr IVPB Q12 GLADIS; Protocol Last Admin: 10/20/18 10:16 Dose: 100 mls/hr Meropenem 500 mg/ Sodium (Chloride) 100 mls @ 100 mls/hr IVPB Q8 GLADIS; Protocol Last Admin: 10/20/18 01:24 Dose: 100 mls/hr Norepinephrine Bitartrate 16 (mg/ Dextrose) 266 mls @ 7.48 mls/hr IV .Q24H ONE; Protocol Stop: 10/21/18 00:36 Last Admin: 10/20/18 01:25 Dose: 7.5 mcg/min, 7.48 mls/hr Dextrose/Sodium Chloride (Dextrose 5%/0.45% Ns 1000 Ml) 1,000 mls @ 80 mls/hr IV .[id number] GLADIS Stop: 10/20/18 14:29 Last Admin: 10/20/18 02:10 Dose: 80 mls/hr - Labs Labs: - Additional Findings Additional findings: - Constitutional Appears: Chronically Ill Additional comments: - ENT Exam Additional comments: s/p trache - Respiratory Exam Additional comments: On the vent via Trach - Cardiovascular Exam Cardiovascular Exam: Tachycardia, +S1, +S2 - GI/Abdominal Exam Additional comments: distended hypoactive BS umbilical region with mass like lesion with denuded skin , no pus + ascites - Extremities Exam Additional comments: b/l 2+ edema in LE and UE - Neurological Exam Additional comments: awake Laboratory Results - last 72 hr 10/17/18 10/17/18 10/18/18 07:58 14:30 03:27 WBC RBC Hgb Hct MCV MCH MCHC RDW Plt Count MPV Neut % (Auto) Lymph % (Auto) Bowie % (Auto) Eos % (Auto) Baso % (Auto) Neut # (Auto) Lymph # (Auto) Bowie # (Auto) Eos # (Auto) Baso # (Auto) Neutrophils % (Manual) Lymphocytes % (Manual) Monocytes % (Manual) Platelet Estimate Large Platelets Hypochromasia (manual) Anisocytosis (manual) Ovalocytes PT 13.7 H INR 1.2 APTT pCO2 26 L pO2 70 L HCO3 23.2 ABG pH 7.50 H ABG Total CO2 21.1 L ABG O2 Saturation 99.6 H ABG O2 Content 12.3 L ABG Base Excess -2.2 L ABG Hemoglobin 8.9 L ABG Carboxyhemoglobin 1.4 POC ABG HHb (Measured) 0.4 ABG Methemoglobin 1.0 ABG O2 Capacity 12.3 L Frederic Test Yes A-a O2 Difference 325.0 Hgb O2 Saturation 97.3 Vent Mode A/c Mechanical Rate 20 FiO2 60.0 Tidal Volume 450 PEEP 5 Sodium Potassium Chloride Carbon Dioxide Anion Gap BUN Creatinine Est GFR ( Amer) Est GFR (Non-Af Amer) Random Glucose Calcium Phosphorus Magnesium Total Bilirubin AST ALT Alkaline Phosphatase Total Protein Albumin Globulin Albumin/Globulin Ratio Vancomycin Trough C. difficile Ag & Toxin Negative 10/18/18 10/18/18 10/19/18 05:38 05:38 03:59 WBC 18.4 H RBC 3.46 L Hgb 10.5 L Hct 32.3 L MCV 93.3 MCH 30.4 MCHC 32.6 L RDW 17.3 H Plt Count 235 MPV Neut % (Auto) Lymph % (Auto) Bowie % (Auto) Eos % (Auto) Baso % (Auto) Neut # (Auto) Lymph # (Auto) Bowie # (Auto) Eos # (Auto) Baso # (Auto) Neutrophils % (Manual) Lymphocytes % (Manual) Monocytes % (Manual) Platelet Estimate Large Platelets Hypochromasia (manual) Anisocytosis (manual) Ovalocytes PT INR APTT pCO2 27 L pO2 141 H HCO3 23.1 ABG pH 7.48 H ABG Total CO2 20.9 L ABG O2 Saturation 100.1 H ABG O2 Content 14.9 L ABG Base Excess -2.4 L ABG Hemoglobin 10.6 L ABG Carboxyhemoglobin 1.3 POC ABG HHb (Measured) -0.1 L ABG Methemoglobin 1.0 ABG O2 Capacity 14.9 L Frederic Test Yes A-a O2 Difference 253.0 Hgb O2 Saturation 97.8 Vent Mode A/c Mechanical Rate 20 FiO2 60.0 Tidal Volume 450 PEEP 5 Sodium 144 Potassium 4.1 Chloride 112 H Carbon Dioxide 22 Anion Gap 14 BUN 94 H Creatinine 1.2 Est GFR ( Amer) 55 Est GFR (Non-Af Amer) 46 Random Glucose 158 H Calcium 7.9 L Phosphorus Magnesium Total Bilirubin AST ALT Alkaline Phosphatase Total Protein Albumin Globulin Albumin/Globulin Ratio Vancomycin Trough C. difficile Ag & Toxin 10/19/18 10/19/18 10/19/18 05:17 05:17 05:17 WBC 16.7 H RBC 3.36 L Hgb 10.2 L Hct 31.7 L MCV 94.5 MCH 30.4 MCHC 32.2 L RDW 17.7 H Plt Count 232 MPV Neut % (Auto) Lymph % (Auto) Bowie % (Auto) Eos % (Auto) Baso % (Auto) Neut # (Auto) Lymph # (Auto) Bowie # (Auto) Eos # (Auto) Baso # (Auto) Neutrophils % (Manual) Lymphocytes % (Manual) Monocytes % (Manual) Platelet Estimate Large Platelets Hypochromasia (manual) Anisocytosis (manual) Ovalocytes PT INR APTT pCO2 pO2 HCO3 ABG pH ABG Total CO2 ABG O2 Saturation ABG O2 Content ABG Base Excess ABG Hemoglobin ABG Carboxyhemoglobin POC ABG HHb (Measured) ABG Methemoglobin ABG O2 Capacity Frederic Test A-a O2 Difference Hgb O2 Saturation Vent Mode Mechanical Rate FiO2 Tidal Volume PEEP Sodium 148 Potassium 3.8 Chloride 120 H Carbon Dioxide 22 Anion Gap 10 BUN 95 H Creatinine 2.0 H Est GFR ( Amer) 31 Est GFR (Non-Af Amer) 25 Random Glucose 136 H Calcium 7.4 L Phosphorus Magnesium Total Bilirubin AST ALT Alkaline Phosphatase Total Protein Albumin Globulin Albumin/Globulin Ratio Vancomycin Trough 13.2 H C. difficile Ag & Toxin 10/20/18 10/20/18 10/20/18 05:18 05:33 05:33 WBC 16.1 H RBC 3.09 L Hgb 9.7 L Hct 29.5 L MCV 95.2 MCH 31.2 H MCHC 32.8 L RDW 18.2 H Plt Count 201 MPV 11.2 Neut % (Auto) 92.5 H Lymph % (Auto) 3.9 L Bowie % (Auto) 3.4 Eos % (Auto) 0.0 Baso % (Auto) 0.2 Neut # (Auto) 14.9 H Lymph # (Auto) 0.6 L Bowie # (Auto) 0.5 Eos # (Auto) 0.0 Baso # (Auto) 0.0 Neutrophils % (Manual) 92 H Lymphocytes % (Manual) 4 L Monocytes % (Manual) 4 Platelet Estimate Normal Large Platelets Present Hypochromasia (manual) Slight Anisocytosis (manual) Slight Ovalocytes Slight PT 14.3 H INR 1.3 APTT 29.5 pCO2 34 L pO2 99 HCO3 22.0 ABG pH 7.39 ABG Total CO2 21.6 L ABG O2 Saturation 99.8 H ABG O2 Content 13.9 L ABG Base Excess -3.8 L ABG Hemoglobin 10.1 L ABG Carboxyhemoglobin 1.6 H POC ABG HHb (Measured) 0.2 ABG Methemoglobin 1.3 ABG O2 Capacity 13.9 L Frederic Test Yes A-a O2 Difference 215.0 Hgb O2 Saturation 96.9 Vent Mode A/c Mechanical Rate 12 FiO2 50.0 Tidal Volume 450 PEEP 5 Sodium Potassium Chloride Carbon Dioxide Anion Gap BUN Creatinine Est GFR ( Amer) Est GFR (Non-Af Amer) Random Glucose Calcium Phosphorus Magnesium Total Bilirubin AST ALT Alkaline Phosphatase Total Protein Albumin Globulin Albumin/Globulin Ratio Vancomycin Trough C. difficile Ag & Toxin 10/20/18 05:33 WBC RBC Hgb Hct MCV MCH MCHC RDW Plt Count MPV Neut % (Auto) Lymph % (Auto) Bowie % (Auto) Eos % (Auto) Baso % (Auto) Neut # (Auto) Lymph # (Auto) Bowie # (Auto) Eos # (Auto) Baso # (Auto) Neutrophils % (Manual) Lymphocytes % (Manual) Monocytes % (Manual) Platelet Estimate Large Platelets Hypochromasia (manual) Anisocytosis (manual) Ovalocytes PT INR APTT pCO2 pO2 HCO3 ABG pH ABG Total CO2 ABG O2 Saturation ABG O2 Content ABG Base Excess ABG Hemoglobin ABG Carboxyhemoglobin POC ABG HHb (Measured) ABG Methemoglobin ABG O2 Capacity Frederic Test A-a O2 Difference Hgb O2 Saturation Vent Mode Mechanical Rate FiO2 Tidal Volume PEEP Sodium 144 Potassium 3.8 Chloride 113 H Carbon Dioxide 22 Anion Gap 13 BUN 85 H Creatinine 1.1 Est GFR ( Amer) > 60 Est GFR (Non-Af Amer) 51 Random Glucose 122 H Calcium 7.6 L Phosphorus 7.6 H Magnesium 2.5 H Total Bilirubin 0.5 AST 35 ALT 26 Alkaline Phosphatase 192 H D Total Protein 5.4 L Albumin 2.3 L Globulin 3.1 Albumin/Globulin Ratio 0.7 L Vancomycin Trough C. difficile Ag & Toxin Microbiology 10/18/18 11:55 Blood-Thru Central Line Blood Culture - Preliminary NO GROWTH AFTER 48 HOURS 10/05/18 06:15 Blood Blood Culture - Final NO GROWTH AFTER 5 DAYS 10/05/18 06:15 Blood Gram Stain - Final TEST NOT PERFORMED 10/05/18 06:30 Blood Blood Culture - Final NO GROWTH AFTER 5 DAYS 10/05/18 06:30 Blood Gram Stain - Final TEST NOT PERFORMED 10/05/18 07:10 Urine,Orellana Urine Culture - Final Yeast Species 09/25/18 12:10 Blood-Thru Central Line Blood Culture - Final NO GROWTH AFTER 5 DAYS 09/25/18 12:10 Blood-Thru Central Line Gram Stain - Final TEST NOT PERFORMED 09/20/18 14:00 Blood-Thru Central Line Blood Culture - Final NO GROWTH AFTER 5 DAYS 09/20/18 17:53 Trachasp Gram Stain - Final 09/20/18 17:53 Trachasp Sputum Culture - Final Yeast Species 09/20/18 17:53 Urine,Orellana Urine Culture - Final No Growth (<1,000 CFU/ML) 09/15/18 15:35 Blood-Thru Central Line Blood Culture - Final NO GROWTH AFTER 5 DAYS 09/15/18 15:35 Blood-Thru Central Line Gram Stain - Final TEST NOT PERFORMED 09/15/18 15:25 Blood-Thru Central Line Blood Culture - Final NO GROWTH AFTER 5 DAYS 09/15/18 15:25 Blood-Thru Central Line Gram Stain - Final TEST NOT PERFORMED 09/08/18 11:49 Blood-Venous Blood Culture - Final NO GROWTH AFTER 5 DAYS 09/08/18 11:49 Blood-Venous Gram Stain - Final TEST NOT PERFORMED 09/08/18 11:49 Blood-Venous Blood Culture - Final NO GROWTH AFTER 5 DAYS 09/08/18 11:49 Blood-Venous Gram Stain - Final TEST NOT PERFORMED 09/07/18 Unknown Blood-Thru Central Line Blood Culture - Final NO GROWTH AFTER 5 DAYS 09/07/18 Unknown Blood-Thru Central Line Gram Stain - Final TEST NOT PERFORMED 09/07/18 Unknown Blood-Thru Central Line Blood Culture - Final NO GROWTH AFTER 5 DAYS 09/07/18 Unknown Blood-Thru Central Line Gram Stain - Final TEST NOT PERFORMED 09/07/18 09:07 Trachasp Gram Stain - Final 09/07/18 09:07 Trachasp Sputum Culture - Final Yeast Species 09/04/18 11:25 Naris MRSA Culture (Admit) - Final MRSA NOT DETECTED Accession No. : [id number] Patient Name / ID : RYLEE ONEIL / [id number] Exam Date : 10/20/2018 04:49:57 ( Approved ) Study Comment : Sex / Age : F / 58Y Creator : Syed Avalos MD Dictator : Syed Avalos MD Floor Director : Broaching Machine Set Up Operator : Syed Avalos MD Approver2 : Report Date : 10/20/2018 08:33:37 My Comment : Date of service: 10/20/2018 HISTORY: pt is on ventilator COMPARISON: Portable chest 10/19/2018. TECHNIQUE: 1 view obtained. FINDINGS: LUNGS: Tracheostomy tube and orogastric tubes are unchanged in position as well as left MediPort. No interval change in large left pleural effusion with underlying airspace disease not excluded the left mid to inferior lung zones once again. Right chest remains clear. No pneumothorax bilaterally. PLEURA: As above. CARDIOVASCULAR: No aortic atherosclerotic calcification present. Normal cardiac size. No pulmonary vascular congestion. OSSEOUS STRUCTURES: No significant abnormalities. VISUALIZED UPPER ABDOMEN: Normal. OTHER FINDINGS: None. IMPRESSION: Stable large left pleural effusion without significant interval change. Underlying mid to inferior left-sided pulmonary consolidation not excluded. Right chest remains clear. 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 remains on the vent remains on levophed afebrile leukocytosis for past 7 days but not increased could be reactive in nature as all cx negative except the urine cx yeast which has been treated. s/p both left sided thoracenthesis and paracentheiss today. blood cx- neg x 11 trach asp cx- yeast ( treated) stool c.diff- negative repeat UA- negative repeat urine cx- yeast ( treated) PLan- advise to d/c all empiric antibiotics today as pt. has been on them for 38 days so far and all cx negative except yeast in sputum and urine cx which has been t reated with 34 days of IV diflucan. completed total 25 days of IV vanco today. check trough in amcompleted 38 days of Iv meropnem today. completed 34 days of IV diflucan. advise to observe pt. off antibiotics. all labs and imaging and chart notes reviewed. discussed all above with Plant Maintenance Supervisor as well. prognosis poor. critical care time spent 30 minutes.
[2018-10-20] MEDS ORDERED: Lidocaine 1% Inj (20ml) ONE (11:17)
--- NOTE | 2018-10-20 12:41 | PCM.SURG1 ---
Surgeon's Initial Post Op Note - Surgeon's Notes Surgeon: Serg Pires MD Sessions Clerk: NONE Type of Anesthesia: Local Pre-Operative Diagnosis: Metastatic breast cancer, pleural effusion, ascites Operative Findings: US showed large left effusion, moderate ascites, abdominal mass. Post-Operative Diagnosis: Metastatic breast cancer, pleural effusion, ascites Operation Performed: US guided left thoracentesis. US guided paracentesis Specimen/Specimens Removed: 1200 cc left lung. 2 liters acites. Estimated Blood Loss: EBL {In ML}: 0 Blood Products Given: N/A Drains Used: No Drains Date of Surgery/Procedure: 10/20/18 Time of Surgery/Procedure: 11:40
--- NOTE | 2018-10-20 12:50 | US ---
Date of Procedure: 10/20/2018 PROCEDURE: Ultrasound-guided paracentesis, CPT 28661 Medications: 7 cc 1% Lidocaine HISTORY: Ascites, metastatic breast cancer TECHNIQUE: Following informed consent , the patient was placed supine on the stretcher and the site was marked. A limited abdominal ultrasound was performed that showed a large amount of intra-abdominal fluid. Procedural time out was called and the Pt's abdomen was marked and prepped and draped in the usual sterile fashion. Ultrasound-guided large volume paracentesis performed. A total of 2.2 Liters of straw colored fluid was removed without complication. IMPRESSION: Ultrasound-guided large volume paracentesis.
--- NOTE | 2018-10-20 12:51 | US ---
PROCEDURE: Date of procedure: 10/20/2018 Procedure: 1. Ultrasound-guided left thoracentesis, CPT 94560 Medications: 3cc 1% Lidocaine HISTORY: Left pleural effusion, metastatic breast cancer, intubated. TECHNIQUE: Following informed consent ,the Patients' left chest was marked. Procedure time-out was called, and the patient was placed in the sitting position and limited ultrasound showed a large left effusion. The patient's left back was prepped and draped in the usual sterile fashion. After the skin was anesthetized with lidocaine, a drainage catheter was advanced under ultrasound guidance into the pleural space. Ultrasound-guided thoracentesis was performed. A total of 1000 cubic centimeters of kirt-colored fluid removed without complication. A Xeroform dressing was applied. IMPRESSION: Ultrasound guided left thoracentesis. There were no immediate complications.
--- NOTE | 2018-10-20 14:58 | CP.PCM.PN ---
Subjective - Date & Time of Evaluation Date of Evaluation: 10/20/18 Time of Evaluation: 14:00 - Subjective Subjective: Examined patient in bed, patient being seen by wound care. Patient mother also at the bedside Objective - Vital Signs/Intake and Output Vital Signs (last 24 hours): Temp Pulse Resp BP Pulse Ox 99.1 F 115 H 14 91/62 L 100 10/20/18 13:00 10/20/18 14:00 10/20/18 14:00 10/20/18 14:00 10/20/18 14:00 Intake and Output: 10/20/18 10/20/18 06:59 18:59 Intake Total 1339 900 Output Total 900 3700 Balance 439 -2800 - Medications Medications: Current Medications Allopurinol (Zyloprim) 100 mg NG DAILY [facility] Last Admin: 09/27/18 08:16 Dose: 100 mg Famotidine (Pepcid) 20 mg IVP Q12 [facility] Last Admin: 10/20/18 10:30 Dose: 20 mg Norepinephrine Bitartrate 16 (mg/ Dextrose) 266 mls @ 7.48 mls/hr IV .Q24H ONE; Protocol Stop: 10/21/18 00:36 Last Admin: 10/20/18 01:25 Dose: 7.5 mcg/min, 7.48 mls/hr - Labs Labs: 10/20/18 05:33 10/20/18 05:33 PT 14.3 Seconds (9.8-13.1) H 10/20/18 05:33 INR 1.3 10/20/18 05:33 APTT 29.5 Seconds (25.6-37.1) 10/20/18 05:33 - Constitutional Appears: Chronically Ill - Head Exam Head Exam: ATRAUMATIC, NORMAL INSPECTION, NORMOCEPHALIC - Eye Exam Eye Exam: Normal appearance - ENT Exam ENT Exam: Mucous Membranes Moist - Respiratory Exam Respiratory Exam: Decreased Breath Sounds - Cardiovascular Exam Cardiovascular Exam: Tachycardia - GI/Abdominal Exam GI & Abdominal Exam: Distended - Rectal Exam Additional comments: has flexiseal - Extremities Exam Extremities Exam: Pedal Edema Additional comments: Bilateral upper and lower extremity edema - Neurological Exam Neurological Exam: Alert, Awake - Psychiatric Exam Psychiatric exam: Flat Affect - Skin Skin Exam: Pallor Additional comments: skin weeping Assessment and Plan - Assessment and Plan (Free Text) Assessment: Palliative Care -Awake and alert -skin moist and not intact, weeping wounds, anasarca -decreased breath sounds, on vent -Tachycardic -abdomen round and distended, has ascites , receiving NGT feedings -has purewick catheter, no output in catheter today and was straight cath as per Primary RN - upper and lower extremity edema Goals of care: Full Treatment, team aware, multiple conversations had with patient's mother Nneka(decision maker) about patient pronosis. Full treatment wanted Code Status: Full Code, Team quiroga Impression * Respiratory Failure * Stage IV Breast Ca * Decreased mobility * multiple skin wounds * Needs Goals of Care Suggestion * Full Assist with ADLs * Reposition q2h * mouth care * continue Wound Care * Will continue Goals of Care discussion Palliative Care will remain on board as needed and can be reached at ext [phone] or [phone] Time Spent with patient 40 min
--- NOTE | 2018-10-20 18:27 | CP.PCM.PN ---
Subjective - Date & Time of Evaluation Date of Evaluation: 10/20/18 Time of Evaluation: 18:25 - Subjective Subjective: renal barrientos better however overall about the same prog still poor still intubated trac ?pre-renal bun down, better creat down better na down, better responded to increasing free water a bit serial chems prognosis poor. MPRESSION / MAJOR PROBLEMS NOW: 1. Acute hypoxemic Resp Failure, 2 bilat multi-lobar pneumonia 2. Persistent vaginal Bleeding 3. Severe Sepsis with shock, 2 Pneumonia, r/o bacteremia 4. Acute on Chronic disease Anemia 5. h/o DVT- bilat CFV on Aug 5. 6. s/p Paracentesis Aug 29 for 2.5 liters, and repeated Sep 28 for 3.6 liters. 7 LOUIE ? pre-renal Objective - Vital Signs/Intake and Output Vital Signs (last 24 hours): Temp Pulse Resp BP Pulse Ox 99.0 F 117 H 14 97/49 L 100 10/20/18 16:00 10/20/18 17:00 10/20/18 17:00 10/20/18 17:00 10/20/18 17:00 Intake and Output: 10/20/18 10/20/18 06:59 18:59 Intake Total 1339 1200 Output Total 900 3700 Balance 439 -2500 - Medications Medications: Current Medications Allopurinol (Zyloprim) 100 mg NG DAILY [facility] Last Admin: 09/27/18 08:16 Dose: 100 mg Famotidine (Pepcid) 20 mg IVP Q12 [facility] Last Admin: 10/20/18 10:30 Dose: 20 mg Norepinephrine Bitartrate 16 (mg/ Dextrose) 266 mls @ 7.48 mls/hr IV .Q24H ONE; Protocol Stop: 10/21/18 00:36 Last Admin: 10/20/18 01:25 Dose: 7.5 mcg/min, 7.48 mls/hr - Labs Labs: 10/20/18 05:33 10/20/18 05:33 PT 14.3 Seconds (9.8-13.1) H 10/20/18 05:33 INR 1.3 10/20/18 05:33 APTT 29.5 Seconds (25.6-37.1) 10/20/18 05:33 - Constitutional Appears: Toxic, Cachectic - Head Exam Head Exam: ATRAUMATIC - Eye Exam Eye Exam: Normal appearance - ENT Exam ENT Exam: Normal Exam - Respiratory Exam Respiratory Exam: Clear to Ausculation Bilateral - Cardiovascular Exam Cardiovascular Exam: Tachycardia, Murmur - GI/Abdominal Exam GI & Abdominal Exam: Soft - Extremities Exam Extremities Exam: Normal Inspection - Neurological Exam Neurological Exam: Altered - Skin Skin Exam: Dry, Intact Assessment and Plan - Assessment and Plan (Free Text) Assessment: intubated trac ?pre-renal bun up creat up na up suggest increasing free water a bit serial chems prognosis poor. MPRESSION / MAJOR PROBLEMS NOW: 1. Acute hypoxemic Resp Failure, 2 bilat multi-lobar pneumonia 2. Persistent vaginal Bleeding 3. Severe Sepsis with shock, 2 Pneumonia, r/o bacteremia 4. Acute on Chronic disease Anemia 5. h/o DVT- bilat CFV on Feb 5. 6. s/p Paracentesis Feb 5 for 2.5 liters, and repeated Sep 7 for 3.6 liters. 7 LOUIE ? pre-renal Plan: continue free water serial chems.
[2018-10-21 05:18] LABS: BASO % 0.1 % (0.0-2.0); HEMOGLOBIN 9.2 g/dL (12.0-16.0); LYMPH # 0.6 K/uL (1.0-4.3); LYMPH % 3.7 % (20.0-40.0); MEAN CELL VOLUME 95.7 fl (81.0-99.0); MEAN CORPUSCULAR HEMOGLOBIN 31.4 pg (27.0-31.0); MEAN CORPUSCULAR HGB CONC 32.8 g/dL (33.0-37.0); MEAN PLATELET VOLUME 11.2 fl (7.2-11.7); MONO # 0.4 K/uL (0.0-0.8); MONO % 2.4 % (0.0-10.0); NEUT # 15.2 K/uL (1.8-7.0); NEUT % 93.8 % (50.0-75.0); PLATELET COUNT 196 K/uL (130-400); RBC 2.95 Mil/uL (3.80-5.20); RED CELL DISTRIBUTION WIDTH 17.9 % (11.5-14.5); WHITE BLOOD COUNT 16.2 K/uL (4.8-10.8)
[2018-10-21 05:19] LABS: ABG ALLEN TEST YES; ARTERIAL BLOOD GAS HCO3 22.6 mmol/L (21-28); ARTERIAL BLOOD GAS HEMOGLOBIN 9.6 g/dL (11.7-17.4); ARTERIAL BLOOD GAS O2 CAPACITY 13.5 mL/dL (16-24); ARTERIAL BLOOD GAS O2 CONTENT 13.5 ML/dL (15-23); ARTERIAL BLOOD GAS O2 SAT 100.2 % (95-98); ARTERIAL BLOOD GAS PCO2 38 mm/Hg (35-45); ARTERIAL BLOOD GAS PH 7.37 (7.35-7.45); ARTERIAL BLOOD GAS PO2 153 mm/Hg (80-100); ARTERIAL BLOOD GAS TCO2 23.2 mmol/L (22-28)
[2018-10-21 05:33] LABS: ALB/GLOB RATIO 0.7 (1.0-2.1); ALBUMIN 2.1 g/dL (3.5-5.0); ALT/SGPT 17 U/L (9-52); AST/SGOT 20 U/L (14-36); BLOOD UREA NITROGEN 80 mg/dl (7-17); CALCIUM 7.6 mg/dL (8.4-10.2); GFR NON-AFRICAN AMERICAN 57
--- NOTE | 2018-10-21 08:49 | CP.CCUPN ---
CCU Subjective - Physician Review Subjective (Free Text): No overall improvement in neuromental status, long periods with eyes closed. Levophed requirements increased overnight gradually, now at 17.5 mcg dose. Breathing 16 on AC 12 Still Levophed dependent , otherwise Temps mostly 99- 100F. SBPs 90s, HR 120s. Fair tolerance to SBTs on CPAP 5, PS 10. SBPs 110s, persistent tachycardia today with HR 110s. Approx 2.0 liter negative fluid balance last 24H. ROS: No other pertinent negs or positive on 10+ system review obtainable due to lethargic status Other PMSFH: All other Nursing and physician documentation reviewed to date; no new pertinent info noted relevant to current medical problems. EXAM- HEENT: no icterus, pupils equal, 3 mm and reactive, no gaze preference, opens eyes briefly to pain, but sustained wakeful state NECK: no visible JVD, supple, carotids equal upstroke bilat/no bruits, trach stoma intact CHEST: decreased BS bases, no wheezes audible, bloody fluid drained dressing over R breast. Left chest portacath. HEART: regular, distant, tachy S1S2, no murmur audible, no rubs. ABD: soft, ++distention with ascites, no focal tenderness, BS hypoactive, dried necrotic lesion over umbilicus unchanged. Previous paracentesis puncture site still leaking ascitic fluid. EXT: + anasarca with less edema UEs and LEs, and arms +ulcer posterior R calf and on L, no calf tenderness or palpable cords, distal pulses intact and symmetrical NEURO: withdraws to pain stimuli, + tone SKIN: no rashes LABS: WBC= 16.2 HGB= 9.2 PLTs = 196K 77.37/38/153 Na= 143 K= 3.6 Cl= 112 HCO3= 23 BUN/Cr= 80/1.0 BS= 169 CXR: (my interp)- minor improvement in aerated lung expansion, more haziness over left lung. Trach tube within tracheal air column. IMPRESSION / MAJOR PROBLEMS NOW: 1. Acute hypoxemic Resp Failure, 2 bilat multi-lobar pneumonia 2. Persistent vaginal Bleeding 3. Severe Sepsis with shock, 2 Pneumonia, r/o bacteremia 4. Acute on Chronic disease Anemia 5. h/o DVT- bilat CFV on Aug 5. 6. s/p Paracentesis Fe 5 for 2.5 liters, and repeated Sep 7 for 3.6 liters. PLAN: 1. Ongoing attempts to wean off vasopressors. Consider adding Midodrine. 2. SBT as tolerated, limited due to vasopressor dependence and lethargic mental status. 3. Off Abs now, follow WBC trends and temps. Will re-panculture if temps rise above 101. 4. BUN Cr continue to slowly improve with additional free water. Unusual neg fluid balance noted last 24H. Volume expansion today with albumin and LR.
[2018-10-21 08:56] LABS: URINE BACTERIA RARE (<OCC); URINE BILIRUBIN NEGATIVE (NEGATIVE); URINE BLOOD SMALL (NEGATIVE); URINE CLARITY SLIGHTY-CLOUDY (Clear); URINE COLOR YELLOW (YELLOW); URINE GLUCOSE (UA) 50 mg/dL (NEGATIVE); URINE PROTEIN 30 mg/dL (NEGATIVE); URINE UROBILINOGEN 0.2-1.0 mg/dL (0.2-1.0)
[2018-10-21] MEDS ORDERED: Albumin Human 25% (12.5 gm/50 ml) IV ONE (09:01)
[2018-10-21 09:03] LABS: SQUAMOUS EPITHIAL 3 /hpf (0-5); URINE LEUKOCYTE ESTERASE TRACE Leu/uL (Negative)
[2018-10-21] MEDS ORDERED: Lactated Ringer's 1,000 ML IV SCH (09:15)
[2018-10-21 11:16] LABS: BANDS 2 % (0-2); HYPOCHROMIC SLIGHT; LYMPHOCYTE 2 % (20-50); MICROCYTOSIS SLIGHT; MONOCYTE 1 % (0-10); NEUTROPHIL 95 % (42-75); PLATELET ESTIMATE NORMAL (NORMAL); TOTAL CELLS COUNTED 100
[2018-10-21 11:17] LABS: OVALOCYTES SLIGHT
--- NOTE | 2018-10-21 14:30 | RAD ---
Date of service: 10/21/2018 HISTORY: pt is on ventilator COMPARISON: Comparison made with prior study [id number] TECHNIQUE: 1 view obtained. FINDINGS: In situ tracheostomy tube in good position. NGT is present, the tip of which overlies the upper/mid abdomen. No change left IJ MediPort tip in the SVC. LUNGS: Decreased size left-sided effusion post thoracentesis. No definitive pneumothorax. Mild bibasilar atelectasis with small right-sided effusion. Central pulmonary vasculature is slightly increased. PLEURA: As above. No definitive pneumothorax apparent. CARDIOVASCULAR: No aortic atherosclerotic calcification present. Heart size difficult to assess due to silhouetting left cardiac border OSSEOUS STRUCTURES: No significant abnormalities. VISUALIZED UPPER ABDOMEN: Normal. OTHER FINDINGS: None. IMPRESSION: Support lines and tubes as above. Decreased size left-sided effusion post thoracentesis. No definitive pneumothorax. Mild bibasilar atelectasis with small right-sided effusion. Central pulmonary vasculature is slightly increased.
--- NOTE | 2018-10-21 18:17 | CP.PCM.PN ---
Subjective - Date & Time of Evaluation Date of Evaluation: 10/21/18 Time of Evaluation: 18:14 - Subjective Subjective: no events overnight vitals reviewed heent normal intubated s1s2 prsent vent dependent abd soft nt nd bs+ ao times 0 IMPRESSION / MAJOR PROBLEMS NOW: 1. Acute hypoxemic Resp Failure, 2 bilat multi-lobar pneumonia 2. Persistent vaginal Bleeding 3. Severe Sepsis with shock, 2 Pneumonia, r/o bacteremia 4. Acute on Chronic disease Anemia 5. h/o DVT- bilat CFV on Aug 5. 6. s/p Paracentesis Aug 5 for 2.5 liters, and repeated Sep 28 for 3.6 liters. 7 LOUIE ? pre-renal renal function stable lytes ok volume stable vent per primary team Objective - Vital Signs/Intake and Output Vital Signs (last 24 hours): Temp Pulse Resp BP Pulse Ox 99.9 F H 119 H 16 95/44 L 100 10/21/18 16:00 10/21/18 17:00 10/21/18 17:00 10/21/18 17:00 10/21/18 17:00 Intake and Output: 10/21/18 10/21/18 06:59 18:59 Intake Total 1020 1606 Output Total 750 710 Balance 270 896 - Medications Medications: Current Medications Allopurinol (Zyloprim) 100 mg NG DAILY [facility] Last Admin: 09/27/18 08:16 Dose: 100 mg Famotidine (Pepcid) 20 mg IVP Q12 [facility] Last Admin: 10/21/18 08:25 Dose: 20 mg Norepinephrine Bitartrate 16 (mg/ Dextrose) 266 mls @ 17.46 mls/hr IV .[id number] ONE; Protocol Stop: 10/22/18 08:46 - Labs Labs: 10/21/18 04:17 10/21/18 04:17 PT 14.3 Seconds (9.8-13.1) H 10/20/18 05:33 INR 1.3 10/20/18 05:33 APTT 29.5 Seconds (25.6-37.1) 10/20/18 05:33
[2018-10-22 05:14] LABS: ABG ALLEN TEST YES; ARTERIAL BLOOD GAS HCO3 23.9 mmol/L (21-28); ARTERIAL BLOOD GAS HEMOGLOBIN 8.7 g/dL (11.7-17.4); ARTERIAL BLOOD GAS O2 CAPACITY 12.2 mL/dL (16-24); ARTERIAL BLOOD GAS O2 CONTENT 12.2 ML/dL (15-23); ARTERIAL BLOOD GAS O2 SAT 100.4 % (95-98); ARTERIAL BLOOD GAS PCO2 31 mm/Hg (35-45); ARTERIAL BLOOD GAS PH 7.46 (7.35-7.45); ARTERIAL BLOOD GAS PO2 128 mm/Hg (80-100)
[2018-10-22 06:39] LABS: HEMOGLOBIN 8.4 g/dL (12.0-16.0); MEAN CELL VOLUME 95.8 fl (81.0-99.0); MEAN CORPUSCULAR HGB CONC 32.4 g/dL (33.0-37.0); RBC 2.69 Mil/uL (3.80-5.20); RED CELL DISTRIBUTION WIDTH 19.4 % (11.5-14.5); WHITE BLOOD COUNT 13.6 K/uL (4.8-10.8)
[2018-10-22 06:57] LABS: ALB/GLOB RATIO 0.9 (1.0-2.1); ALBUMIN 2.3 g/dL (3.5-5.0); ALT/SGPT 19 U/L (9-52); AST/SGOT 18 U/L (14-36); BLOOD UREA NITROGEN 69 mg/dl (7-17); CALCIUM 7.7 mg/dL (8.4-10.2); GFR NON-AFRICAN AMERICAN > 60
--- NOTE | 2018-10-22 08:41 | CP.CCUPN ---
CCU Subjective - Physician Review Subjective (Free Text): No overall improvement in neuromental status, facies no longer hyperemic, still mostly lethargic with eyes closed. Levophed requirements variable, now at 17.5 mcg dose. Breathing 19 on AC 12, does not appear distressed. Temps mostly 99- 100F. SBP 90- 100s, HR 110s; 2.3 liter positive fluid balance last 24H. ROS: No other pertinent negs or positive on 10+ system review obtainable due to lethargic status Other PMSFH: All other Nursing and physician documentation reviewed to date; no new pertinent info noted relevant to current medical problems. EXAM- HEENT: no icterus, pupils equal, 3 mm and reactive, no gaze preference, opens eyes briefly to pain, but no sustained wakeful state NECK: no visible JVD, supple, carotids equal upstroke bilat/no bruits, trach stoma intact CHEST: decreased BS bases, no wheezes audible, bloody fluid drained dressing over R breast. Left chest portacath. HEART: regular, distant, tachy S1S2, no murmur audible, no rubs. ABD: soft, ++distention with ascites, no focal tenderness, BS hypoactive, dried necrotic lesion over umbilicus unchanged. Previous paracentesis puncture site still leaking ascitic fluid. EXT: + anasarca with less edema UEs and LEs, and arms +ulcer posterior R calf and on L, no calf tenderness or palpable cords, distal pulses intact and symmetrical NEURO: withdraws to pain stimuli, + tone SKIN: no rashes LABS: WBC= 13.6 HGB= 8.4 PLTs = 174K 7.46/31/128 Na= 143 K= 3.7 Cl= 110 HCO3= 23 BUN/Cr= 69/0.9 BS= 129 CXR: (my interp)- none ordered today, yesterdays: minor improvement in aerated lung expansion, more haziness over left lung. Trach tube within tracheal air column. IMPRESSION / MAJOR PROBLEMS NOW: 1. Acute hypoxemic Resp Failure, 2 bilat multi-lobar pneumonia 2. Persistent vaginal Bleeding 3. Severe Sepsis with shock, 2 Pneumonia, r/o bacteremia 4. Acute on Chronic disease Anemia 5. h/o DVT- bilat CFV on Feb 5. 6. s/p Paracentesis Feb 5 for 2.5 liters, and repeated Sep 7 for 3.6 liters. PLAN: 1. Ongoing attempts to wean off vasopressors. Additional volume expansion and Albumin given. 2. Tolerated several hours of SBT on low level CPAP PS, could trial off MV onto a trach collar; but still vasopressor dependent at moderate dose levels, and lethargic at times. 3. Off ABXs now, follow WBC trends and temps. Will re-panculture if temps rise above 101. Orellana has been out. 4. BUN Cr continue to slowly improve with additional free water. Watch HGb trends as hydrational status improves.
--- NOTE | 2018-10-22 20:41 | CP.PCM.PN ---
Subjective - Date & Time of Evaluation Date of Evaluation: 10/20/18 Time of Evaluation: 12:00 - Subjective Subjective: Vented. Objective - Vital Signs/Intake and Output Vital Signs (last 24 hours): Temp Pulse Resp BP Pulse Ox 100.9 F H 124 H 19 99/48 L 100 10/22/18 17:00 10/22/18 18:00 10/22/18 18:00 10/22/18 18:00 10/22/18 18:00 Intake and Output: 10/22/18 10/23/18 18:59 06:59 Intake Total 889 Output Total 500 Balance 389 - Medications Medications: Current Medications Allopurinol (Zyloprim) 100 mg NG DAILY [facility] Last Admin: 09/27/18 08:16 Dose: 100 mg Famotidine (Pepcid) 20 mg IVP Q12 [facility] Last Admin: 10/22/18 20:30 Dose: 20 mg Norepinephrine Bitartrate 16 (mg/ Dextrose) 266 mls @ 17.46 mls/hr IV .[id number] ONE; Protocol Stop: 10/23/18 06:05 Last Admin: 10/22/18 16:06 Dose: 12.5 mcg/min, 12.47 mls/hr - Labs Labs: 10/22/18 06:20 10/22/18 06:20 PT 14.3 Seconds (9.8-13.1) H 10/20/18 05:33 INR 1.3 10/20/18 05:33 APTT 29.5 Seconds (25.6-37.1) 10/20/18 05:33 - Head Exam Head Exam: ATRAUMATIC - Eye Exam Eye Exam: Normal appearance - ENT Exam ENT Exam: Mucous Membranes Dry - Respiratory Exam Respiratory Exam: Decreased Breath Sounds Assessment and Plan (1) Anemia Assessment & Plan: anemia of chronic disease 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
--- NOTE | 2018-10-22 20:43 | CP.PCM.PN ---
Subjective - Date & Time of Evaluation Date of Evaluation: 10/21/18 Time of Evaluation: 16:00 - Subjective Subjective: Vented Objective - Vital Signs/Intake and Output Vital Signs (last 24 hours): Temp Pulse Resp BP Pulse Ox 100.9 F H 124 H 19 99/48 L 100 10/22/18 17:00 10/22/18 18:00 10/22/18 18:00 10/22/18 18:00 10/22/18 18:00 Intake and Output: 10/22/18 10/23/18 18:59 06:59 Intake Total 889 Output Total 500 Balance 389 - Medications Medications: Current Medications Allopurinol (Zyloprim) 100 mg NG DAILY [facility] Last Admin: 09/27/18 08:16 Dose: 100 mg Famotidine (Pepcid) 20 mg IVP Q12 [facility] Last Admin: 10/22/18 20:30 Dose: 20 mg Norepinephrine Bitartrate 16 (mg/ Dextrose) 266 mls @ 17.46 mls/hr IV .[id number] ONE; Protocol Stop: 10/23/18 06:05 Last Admin: 10/22/18 16:06 Dose: 12.5 mcg/min, 12.47 mls/hr - Labs Labs: 10/22/18 06:20 10/22/18 06:20 PT 14.3 Seconds (9.8-13.1) H 10/20/18 05:33 INR 1.3 10/20/18 05:33 APTT 29.5 Seconds (25.6-37.1) 10/20/18 05:33 - Head Exam Head Exam: ATRAUMATIC - Eye Exam Eye Exam: Normal appearance - ENT Exam ENT Exam: Mucous Membranes Dry - Respiratory Exam Respiratory Exam: NORMAL BREATHING PATTERN - Cardiovascular Exam Cardiovascular Exam: +S1, +S2 - GI/Abdominal Exam GI & Abdominal Exam: Normal Bowel Sounds Assessment and Plan (1) Anemia Assessment & Plan: anemia of chronic disease 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
--- NOTE | 2018-10-22 20:45 | CP.PCM.PN ---
Subjective - Date & Time of Evaluation Date of Evaluation: 10/22/18 Time of Evaluation: 15:00 - Subjective Subjective: Vented Objective - Vital Signs/Intake and Output Vital Signs (last 24 hours): Temp Pulse Resp BP Pulse Ox 100.9 F H 124 H 19 99/48 L 100 10/22/18 17:00 10/22/18 18:00 10/22/18 18:00 10/22/18 18:00 10/22/18 18:00 Intake and Output: 10/22/18 10/23/18 18:59 06:59 Intake Total 889 Output Total 500 Balance 389 - Medications Medications: Current Medications Allopurinol (Zyloprim) 100 mg NG DAILY [facility] Last Admin: 09/27/18 08:16 Dose: 100 mg Famotidine (Pepcid) 20 mg IVP Q12 [facility] Last Admin: 10/22/18 20:30 Dose: 20 mg Norepinephrine Bitartrate 16 (mg/ Dextrose) 266 mls @ 17.46 mls/hr IV .[id number] ONE; Protocol Stop: 10/23/18 06:05 Last Admin: 10/22/18 16:06 Dose: 12.5 mcg/min, 12.47 mls/hr - Labs Labs: 10/22/18 06:20 10/22/18 06:20 PT 14.3 Seconds (9.8-13.1) H 10/20/18 05:33 INR 1.3 10/20/18 05:33 APTT 29.5 Seconds (25.6-37.1) 10/20/18 05:33 - Head Exam Head Exam: ATRAUMATIC - Eye Exam Eye Exam: Normal appearance - ENT Exam ENT Exam: Mucous Membranes Dry - Respiratory Exam Respiratory Exam: NORMAL BREATHING PATTERN - Cardiovascular Exam Cardiovascular Exam: +S1, +S2 - GI/Abdominal Exam GI & Abdominal Exam: Normal Bowel Sounds - Extremities Exam Extremities Exam: Pedal Edema Assessment and Plan (1) Anemia Assessment & Plan: anemia of chronic disease 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
--- NOTE | 2018-10-23 00:15 | CP.PCM.PN ---
Subjective - Date & Time of Evaluation Date of Evaluation: 10/20/18 Time of Evaluation: 18:25 - Subjective Subjective: Seen and examined at the bed side. Patient continue to decline. Anasarca, continue to be intubated and unresponsive. NOK refused DNR/DNI and end of lefe care. Unstable to discharge as patient is on Pressors, and will need G-Tube to send her even to [facility] Objective - Vital Signs/Intake and Output Vital Signs (last 24 hours): Temp Pulse Resp BP Pulse Ox 100.8 F H 122 H 19 103/61 100 10/22/18 21:00 10/22/18 21:00 10/22/18 21:00 10/22/18 21:00 10/22/18 21:00 Intake and Output: 10/22/18 10/23/18 18:59 06:59 Intake Total 889 140 Output Total 500 Balance 389 140 - Medications Medications: Current Medications Allopurinol (Zyloprim) 100 mg NG DAILY [facility] Last Admin: 09/27/18 08:16 Dose: 100 mg Famotidine (Pepcid) 20 mg IVP Q12 [facility] Last Admin: 10/22/18 20:30 Dose: 20 mg Norepinephrine Bitartrate 16 (mg/ Dextrose) 266 mls @ 17.46 mls/hr IV .[id number] ONE; Protocol Stop: 10/23/18 06:05 Last Admin: 10/22/18 16:06 Dose: 12.5 mcg/min, 12.47 mls/hr - Labs Labs: 10/22/18 06:20 10/22/18 06:20 PT 14.3 Seconds (9.8-13.1) H 10/20/18 05:33 INR 1.3 10/20/18 05:33 APTT 29.5 Seconds (25.6-37.1) 10/20/18 05:33 Assessment and Plan (1) Septic shock Status: Resolved (2) Multiple organ dysfunction syndrome Status: Acute (3) Acute respiratory failure with hypoxemia Status: Acute (4) Thrombocytopenia Status: Resolved (5) Ascites, malignant Status: Acute (6) Congestive heart failure (CHF) Status: Acute (7) Stage IV breast cancer in female Status: Acute (8) Severe anemia Status: Resolved (9) DVT of lower extremity, bilateral Status: Chronic (10) Anasarca Status: Acute - Assessment and Plan (Free Text) Plan: Continue Current Care
--- NOTE | 2018-10-23 00:17 | CP.PCM.PN ---
Subjective - Date & Time of Evaluation Date of Evaluation: 10/21/18 Time of Evaluation: 18:30 - Subjective Subjective: Seen and examined at the bed side. Patient continue to decline. Anasarca, continue to be intubated and unresponsive. NOK refused DNR/DNI and end of lefe care. Unstable to discharge as patient is on Pressors, and will need G-Tube to send her even to [facility] Objective - Vital Signs/Intake and Output Vital Signs (last 24 hours): Temp Pulse Resp BP Pulse Ox 100.8 F H 122 H 19 103/61 100 10/22/18 21:00 10/22/18 21:00 10/22/18 21:00 10/22/18 21:00 10/22/18 21:00 Intake and Output: 10/22/18 10/23/18 18:59 06:59 Intake Total 889 140 Output Total 500 Balance 389 140 - Medications Medications: Current Medications Allopurinol (Zyloprim) 100 mg NG DAILY [facility] Last Admin: 09/27/18 08:16 Dose: 100 mg Famotidine (Pepcid) 20 mg IVP Q12 [facility] Last Admin: 10/22/18 20:30 Dose: 20 mg Norepinephrine Bitartrate 16 (mg/ Dextrose) 266 mls @ 17.46 mls/hr IV .[id number] ONE; Protocol Stop: 10/23/18 06:05 Last Admin: 10/22/18 16:06 Dose: 12.5 mcg/min, 12.47 mls/hr - Labs Labs: 10/22/18 06:20 10/22/18 06:20 PT 14.3 Seconds (9.8-13.1) H 10/20/18 05:33 INR 1.3 10/20/18 05:33 APTT 29.5 Seconds (25.6-37.1) 10/20/18 05:33 Assessment and Plan (1) Septic shock Status: Resolved (2) Multiple organ dysfunction syndrome Status: Acute (3) Acute respiratory failure with hypoxemia Status: Acute (4) Thrombocytopenia Status: Resolved (5) Ascites, malignant Status: Acute (6) Congestive heart failure (CHF) Status: Acute (7) Stage IV breast cancer in female Status: Acute (8) Severe anemia Status: Resolved (9) DVT of lower extremity, bilateral Status: Chronic (10) Anasarca Status: Acute
--- NOTE | 2018-10-23 00:19 | CP.PCM.PN ---
Subjective - Date & Time of Evaluation Date of Evaluation: 10/22/18 Time of Evaluation: 18:35 - Subjective Subjective: Seen and examined at the bed side. Patient continue to decline. Anasarca, continue to be intubated and unresponsive. NOK refused DNR/DNI and end of lefe care. Unstable to discharge as patient is on Pressors, and will need G-Tube to send her [facility] Objective - Vital Signs/Intake and Output Vital Signs (last 24 hours): Temp Pulse Resp BP Pulse Ox 100.8 F H 122 H 19 103/61 100 10/22/18 21:00 10/22/18 21:00 10/22/18 21:00 10/22/18 21:00 10/22/18 21:00 Intake and Output: 10/22/18 10/23/18 18:59 06:59 Intake Total 889 140 Output Total 500 Balance 389 140 - Medications Medications: Current Medications Allopurinol (Zyloprim) 100 mg NG DAILY [facility] Last Admin: 09/27/18 08:16 Dose: 100 mg Famotidine (Pepcid) 20 mg IVP Q12 [facility] Last Admin: 10/22/18 20:30 Dose: 20 mg Norepinephrine Bitartrate 16 (mg/ Dextrose) 266 mls @ 17.46 mls/hr IV .[id number] ONE; Protocol Stop: 10/23/18 06:05 Last Admin: 10/22/18 16:06 Dose: 12.5 mcg/min, 12.47 mls/hr - Labs Labs: 10/22/18 06:20 10/22/18 06:20 PT 14.3 Seconds (9.8-13.1) H 10/20/18 05:33 INR 1.3 10/20/18 05:33 APTT 29.5 Seconds (25.6-37.1) 10/20/18 05:33 Assessment and Plan (1) Septic shock Status: Resolved (2) Multiple organ dysfunction syndrome Status: Acute (3) Acute respiratory failure with hypoxemia Status: Acute (4) Thrombocytopenia Status: Resolved (5) Ascites, malignant Status: Acute (6) Congestive heart failure (CHF) Status: Acute (7) Stage IV breast cancer in female Status: Acute (8) Severe anemia Status: Resolved (9) DVT of lower extremity, bilateral Status: Chronic (10) Anasarca Status: Acute
[2018-10-23 04:44] LABS: ABG ALLEN TEST YES; ARTERIAL BLOOD GAS HCO3 23.4 mmol/L (21-28); ARTERIAL BLOOD GAS HEMOGLOBIN 9.1 g/dL (11.7-17.4); ARTERIAL BLOOD GAS O2 CAPACITY 12.8 mL/dL (16-24); ARTERIAL BLOOD GAS O2 CONTENT 12.8 ML/dL (15-23); ARTERIAL BLOOD GAS O2 SAT 100.2 % (95-98); ARTERIAL BLOOD GAS PCO2 31 mm/Hg (35-45); ARTERIAL BLOOD GAS PH 7.45 (7.35-7.45); ARTERIAL BLOOD GAS PO2 152 mm/Hg (80-100); ARTERIAL BLOOD GAS TCO2 22.5 mmol/L (22-28)
[2018-10-23 05:33] LABS: BASO % 0.1 % (0.0-2.0); EOS % 0.1 % (0.0-4.0); HEMOGLOBIN 8.9 g/dL (12.0-16.0); LYMPH # 0.6 K/uL (1.0-4.3); LYMPH % 4.3 % (20.0-40.0); MEAN CELL VOLUME 96.1 fl (81.0-99.0); MEAN CORPUSCULAR HEMOGLOBIN 30.8 pg (27.0-31.0); MEAN PLATELET VOLUME 10.8 fl (7.2-11.7); MONO # 0.6 K/uL (0.0-0.8); MONO % 3.9 % (0.0-10.0); NEUT # 13.5 K/uL (1.8-7.0); NEUT % 91.6 % (50.0-75.0); PLATELET COUNT 152 K/uL (130-400); RBC 2.89 Mil/uL (3.80-5.20); RED CELL DISTRIBUTION WIDTH 19.2 % (11.5-14.5); WHITE BLOOD COUNT 14.7 K/uL (4.8-10.8)
[2018-10-23 05:43] LABS: ALB/GLOB RATIO 0.7 (1.0-2.1); ALBUMIN 2.1 g/dL (3.5-5.0); ALT/SGPT 24 U/L (9-52); AST/SGOT 16 U/L (14-36); BLOOD UREA NITROGEN 67 mg/dl (7-17); CALCIUM 7.6 mg/dL (8.4-10.2); GFR NON-AFRICAN AMERICAN > 60
--- NOTE | 2018-10-23 13:05 | CP.PCM.PN ---
Subjective - Date & Time of Evaluation Date of Evaluation: 10/23/18 Time of Evaluation: 13:04 - Subjective Subjective: ID Note- Patient seen and examined today in ICU. pt. remains on the vent and on levophed. she only opens her eyes but does not follow any other commands. Objective - Vital Signs/Intake and Output Vital Signs (last 24 hours): Temp Pulse Resp BP Pulse Ox 99.7 F H 115 H 15 91/52 L 100 10/23/18 08:00 10/23/18 08:00 10/23/18 08:00 10/23/18 08:00 10/23/18 08:00 Intake and Output: 10/23/18 10/23/18 06:59 18:59 Intake Total 1020 266 Output Total 500 Balance 520 266 - Medications Medications: Current Medications Allopurinol (Zyloprim) 100 mg NG DAILY [facility] Last Admin: 09/27/18 08:16 Dose: 100 mg Famotidine (Pepcid) 20 mg IVP Q12 [facility] Last Admin: 10/22/18 20:30 Dose: 20 mg Norepinephrine Bitartrate 16 (mg/ Dextrose) 266 mls @ 9.98 mls/hr IV .Q24H ONE; Protocol Stop: 10/24/18 07:37 Last Admin: 10/23/18 07:50 Dose: 10 mcg/min, 9.98 mls/hr - Labs Labs: - Additional Findings Additional findings: - Constitutional Appears: Chronically Ill Additional comments: - ENT Exam Additional comments: s/p trache - Respiratory Exam Additional comments: On the vent via Trach - Cardiovascular Exam Cardiovascular Exam: Tachycardia, +S1, +S2 - GI/Abdominal Exam Additional comments: distended hypoactive BS umbilical region with mass like lesion with denuded skin , no pus + ascites - Extremities Exam Additional comments: b/l 2+ edema in LE and UE - Neurological Exam Additional comments: opens Laboratory Results - last 72 hr 10/21/18 10/21/18 10/21/18 04:17 04:17 04:54 WBC 16.2 H RBC 2.95 L Hgb 9.2 L Hct 28.2 L MCV 95.7 MCH 31.4 H MCHC 32.8 L RDW 17.9 H Plt Count 196 MPV 11.2 Neut % (Auto) 93.8 H Lymph % (Auto) 3.7 L [place] % (Auto) 2.4 Eos % (Auto) 0.0 Baso % (Auto) 0.1 Neut # (Auto) 15.2 H Lymph # (Auto) 0.6 L [place] # (Auto) 0.4 Eos # (Auto) 0.0 Baso # (Auto) 0.0 Neutrophils % (Manual) 95 H Band Neutrophils % 2 Lymphocytes % (Manual) 2 L Monocytes % (Manual) 1 Platelet Estimate Normal Hypochromasia (manual) Slight Anisocytosis (manual) Microcytosis (manual) Slight Tear Drop Cells Ovalocytes Slight [place] Cells pCO2 38 pO2 153 H HCO3 22.6 ABG pH 7.37 ABG Total CO2 23.2 ABG O2 Saturation 100.2 H ABG O2 Content 13.5 L ABG Base Excess -3.0 L ABG Hemoglobin 9.6 L ABG Carboxyhemoglobin 1.4 POC ABG HHb (Measured) -0.2 L ABG Methemoglobin 1.4 ABG O2 Capacity 13.5 L Frederic Test Yes A-a O2 Difference 156.0 Hgb O2 Saturation 97.4 Vent Mode A/c Mechanical Rate 12 FiO2 50.0 Tidal Volume 450 PEEP 5 Sodium 143 Potassium 3.6 Chloride 112 H Carbon Dioxide 23 Anion Gap 12 BUN 80 H Creatinine 1.0 Est GFR ( Amer) > 60 Est GFR (Non-Af Amer) 57 POC Glucose (mg/dL) Random Glucose 169 H Calcium 7.6 L Phosphorus 7.1 H Magnesium 2.4 H Total Bilirubin 0.3 AST 20 ALT 17 Alkaline Phosphatase 122 Total Protein 4.9 L Albumin 2.1 L Globulin 2.8 Albumin/Globulin Ratio 0.7 L Urine Color Urine Clarity Urine pH Ur Specific [place] Urine Protein Urine Glucose (UA) Urine Ketones Urine Blood Urine Nitrate Urine Bilirubin Urine Urobilinogen Ur Leukocyte Esterase Urine RBC (Auto) Urine Microscopic WBC Ur Squamous Epith Cells Urine Bacteria Urine Yeast (Budding) 10/21/18 10/22/18 10/22/18 08:00 04:41 06:20 WBC 13.6 H RBC 2.69 L Hgb 8.4 L Hct 25.8 L MCV 95.8 MCH 31.0 MCHC 32.4 L RDW 19.4 H Plt Count 174 MPV Neut % (Auto) Lymph % (Auto) [place] % (Auto) Eos % (Auto) Baso % (Auto) Neut # (Auto) Lymph # (Auto) [place] # (Auto) Eos # (Auto) Baso # (Auto) Neutrophils % (Manual) Band Neutrophils % Lymphocytes % (Manual) Monocytes % (Manual) Platelet Estimate Hypochromasia (manual) Anisocytosis (manual) Microcytosis (manual) Tear Drop Cells Ovalocytes [place] Cells pCO2 31 L pO2 128 H HCO3 23.9 ABG pH 7.46 H ABG Total CO2 23.0 ABG O2 Saturation 100.4 H ABG O2 Content 12.2 L ABG Base Excess -1.4 ABG Hemoglobin 8.7 L ABG Carboxyhemoglobin 1.6 H POC ABG HHb (Measured) -0.4 L ABG Methemoglobin 1.3 ABG O2 Capacity 12.2 L Frederic Test Yes A-a O2 Difference 118.0 Hgb O2 Saturation 97.5 Vent Mode A/c Mechanical Rate 12 FiO2 40.0 Tidal Volume 450 PEEP 5 Sodium Potassium Chloride Carbon Dioxide Anion Gap BUN Creatinine Est GFR ( Amer) Est GFR (Non-Af Amer) POC Glucose (mg/dL) Random Glucose Calcium Phosphorus Magnesium Total Bilirubin AST ALT Alkaline Phosphatase Total Protein Albumin Globulin Albumin/Globulin Ratio Urine Color Yellow Urine Clarity Slighty-cloudy Urine pH 6.0 Ur Specific [place] 1.017 Urine Protein 30 Urine Glucose (UA) 50 Urine Ketones Negative Urine Blood Small Urine Nitrate Negative Urine Bilirubin Negative Urine Urobilinogen 0.2-1.0 Ur Leukocyte Esterase Trace H Urine RBC (Auto) 8 H Urine Microscopic WBC 10 H Ur Squamous Epith Cells 3 Urine Bacteria Rare Urine Yeast (Budding) Few H 10/22/18 10/22/18 10/23/18 06:20 16:44 04:33 WBC RBC Hgb Hct MCV MCH MCHC RDW Plt Count MPV Neut % (Auto) Lymph % (Auto) [place] % (Auto) Eos % (Auto) Baso % (Auto) Neut # (Auto) Lymph # (Auto) [place] # (Auto) Eos # (Auto) Baso # (Auto) Neutrophils % (Manual) Band Neutrophils % Lymphocytes % (Manual) Monocytes % (Manual) Platelet Estimate Hypochromasia (manual) Anisocytosis (manual) Microcytosis (manual) Tear Drop Cells Ovalocytes [place]aina Cells pCO2 31 L pO2 152 H HCO3 23.4 ABG pH 7.45 ABG Total CO2 22.5 ABG O2 Saturation 100.2 H ABG O2 Content 12.8 L ABG Base Excess -2.0 ABG Hemoglobin 9.1 L ABG Carboxyhemoglobin 1.3 POC ABG HHb (Measured) -0.2 L ABG Methemoglobin 1.2 ABG O2 Capacity 12.8 L Frederic Test Yes A-a O2 Difference 94.0 Hgb O2 Saturation 97.7 Vent Mode A/c Mechanical Rate 12 FiO2 40.0 Tidal Volume 450 PEEP 5 Sodium 143 Potassium 3.7 Chloride 110 H Carbon Dioxide 23 Anion Gap 14 BUN 69 H Creatinine 0.9 Est GFR ( Amer) > 60 Est GFR (Non-Af Amer) > 60 POC Glucose (mg/dL) 116 H Random Glucose 125 H Calcium 7.7 L Phosphorus Magnesium Total Bilirubin 0.5 AST 18 ALT 19 Alkaline Phosphatase 106 Total Protein 4.9 L Albumin 2.3 L Globulin 2.6 Albumin/Globulin Ratio 0.9 L Urine Color Urine Clarity Urine pH Ur Specific [place] Urine Protein Urine Glucose (UA) Urine Ketones Urine Blood Urine Nitrate Urine Bilirubin Urine Urobilinogen Ur Leukocyte Esterase Urine RBC (Auto) Urine Microscopic WBC Ur Squamous Epith Cells Urine Bacteria Urine Yeast (Budding) 10/23/18 10/23/18 05:00 05:10 WBC 14.7 H RBC 2.89 L Hgb 8.9 L Hct 27.7 L MCV 96.1 MCH 30.8 MCHC 32.0 L RDW 19.2 H Plt Count 152 MPV 10.8 Neut % (Auto) 91.6 H Lymph % (Auto) 4.3 L [place] % (Auto) 3.9 Eos % (Auto) 0.1 Baso % (Auto) 0.1 Neut # (Auto) 13.5 H Lymph # (Auto) 0.6 L [place] # (Auto) 0.6 Eos # (Auto) 0.0 Baso # (Auto) 0.0 Neutrophils % (Manual) 95 H Band Neutrophils % Lymphocytes % (Manual) 3 L Monocytes % (Manual) 2 Platelet Estimate Normal Hypochromasia (manual) Slight Anisocytosis (manual) Slight Microcytosis (manual) Tear Drop Cells Slight Ovalocytes Slight [place] Cells Slight pCO2 pO2 HCO3 ABG pH ABG Total CO2 ABG O2 Saturation ABG O2 Content ABG Base Excess ABG Hemoglobin ABG Carboxyhemoglobin POC ABG HHb (Measured) ABG Methemoglobin ABG O2 Capacity Frederic Test A-a O2 Difference Hgb O2 Saturation Vent Mode Mechanical Rate FiO2 Tidal Volume PEEP Sodium 141 Potassium 3.7 Chloride 110 H Carbon Dioxide 23 Anion Gap 12 BUN 67 H Creatinine 0.8 Est GFR ( Amer) > 60 Est GFR (Non-Af Amer) > 60 POC Glucose (mg/dL) Random Glucose 140 H Calcium 7.6 L Phosphorus 6.1 H Magnesium 2.2 Total Bilirubin 0.3 AST 16 ALT 24 Alkaline Phosphatase 99 Total Protein 4.9 L Albumin 2.1 L Globulin 2.8 Albumin/Globulin Ratio 0.7 L Urine Color Urine Clarity Urine pH Ur Specific [place] Urine Protein Urine Glucose (UA) Urine Ketones Urine Blood Urine Nitrate Urine Bilirubin Urine Urobilinogen Ur Leukocyte Esterase Urine RBC (Auto) Urine Microscopic WBC Ur Squamous Epith Cells Urine Bacteria Urine Yeast (Budding) Microbiology 10/18/18 11:55 Blood-Thru Central Line Blood Culture - Final NO GROWTH AFTER 5 DAYS 10/18/18 11:55 Blood-Thru Central Line Gram Stain - Final TEST NOT PERFORMED 10/21/18 08:00 Urine,Catheterized Urine Culture - Final Yeast Species 10/05/18 06:15 Blood Blood Culture - Final NO GROWTH AFTER 5 DAYS 10/05/18 06:15 Blood Gram Stain - Final TEST NOT PERFORMED 10/05/18 06:30 Blood Blood Culture - Final NO GROWTH AFTER 5 DAYS 10/05/18 06:30 Blood Gram Stain - Final TEST NOT PERFORMED 10/05/18 07:10 Urine,Hardwick Urine Culture - Final Yeast Species 09/25/18 12:10 Blood-Thru Central Line Blood Culture - Final NO GROWTH AFTER 5 DAYS 09/25/18 12:10 Blood-Thru Central Line Gram Stain - Final TEST NOT PERFORMED 09/20/18 14:00 Blood-Thru Central Line Blood Culture - Final NO GROWTH AFTER 5 DAYS 09/20/18 17:53 Trachasp Gram Stain - Final 09/20/18 17:53 Trachasp Sputum Culture - Final Yeast Species 09/20/18 17:53 Urine,Hardwick Urine Culture - Final No Growth (<1,000 CFU/ML) 09/15/18 15:35 Blood-Thru Central Line Blood Culture - Final NO GROWTH AFTER 5 DAYS 09/15/18 15:35 Blood-Thru Central Line Gram Stain - Final TEST NOT PERFORMED 09/15/18 15:25 Blood-Thru Central Line Blood Culture - Final NO GROWTH AFTER 5 DAYS 09/15/18 15:25 Blood-Thru Central Line Gram Stain - Final TEST NOT PERFORMED 09/08/18 11:49 Blood-Venous Blood Culture - Final NO GROWTH AFTER 5 DAYS 09/08/18 11:49 Blood-Venous Gram Stain - Final TEST NOT PERFORMED 09/08/18 11:49 Blood-Venous Blood Culture - Final NO GROWTH AFTER 5 DAYS 09/08/18 11:49 Blood-Venous Gram Stain - Final TEST NOT PERFORMED 09/07/18 Unknown Blood-Thru Central Line Blood Culture - Final NO GROWTH AFTER 5 DAYS 09/07/18 Unknown Blood-Thru Central Line Gram Stain - Final TEST NOT PERFORMED 09/07/18 Unknown Blood-Thru Central Line Blood Culture - Final NO GROWTH AFTER 5 DAYS 09/07/18 Unknown Blood-Thru Central Line Gram Stain - Final TEST NOT PERFORMED 09/07/18 09:07 Trachasp Gram Stain - Final 09/07/18 09:07 Trachasp Sputum Culture - Final Yeast Species 09/04/18 11:25 Naris MRSA Culture (Admit) - Final MRSA NOT DETECTED Accession No. : [id number] Patient Name / ID : RYLEE ONEIL / [id number] Exam Date : 10/21/2018 06:27:34 ( Approved ) Study Comment : Sex / Age : F / 58Y Creator : Jose E Souza MD Dictator : Jose E Souza MD Commutator Tester : Cutting And Printing Machine Operator : Jose E Souza MD Approver2 : Report Date : 10/21/2018 14:24:38 My Comment : Date of service: 10/21/2018 HISTORY: pt is on ventilator COMPARISON: Comparison made with prior study [id number] TECHNIQUE: 1 view obtained. FINDINGS: In situ tracheostomy tube in good position. NGT is present, the tip of which overlies the upper/mid abdomen. No change left IJ MediPort tip in the SVC. LUNGS: Decreased size left-sided effusion post thoracentesis. No definitive pneumothorax. Mild bibasilar atelectasis with small right-sided effusion. Central pulmonary vasculature is slightly increased. PLEURA: As above. No definitive pneumothorax apparent. CARDIOVASCULAR: No aortic atherosclerotic calcification present. Heart size difficult to assess due to silhouetting left cardiac border OSSEOUS STRUCTURES: No significant abnormalities. VISUALIZED UPPER ABDOMEN: Normal. OTHER FINDINGS: None. IMPRESSION: Support lines and tubes as above. Decreased size left-sided effusion post thoracentesis. No definitive pneumothorax. Mild bibasilar atelectasis with small right-sided effusion. Central pulmonary vasculature is slightly increased. 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 remains on the vent remains on levophed low grade fever today. leukocytosis for past 9 days but not increased, has remained stable and could be reactive in nature as all cx negative except the urine cx yeast which has been treated. s/p both left sided thoracenthesis and paracentheiss today. blood cx- neg x 11 trach asp cx- yeast ( treated) stool c.diff- negative repeat UA- negative repeat urine cx- yeast ( treated) hardwick removed 4 days ago repeat urine cx - yeast PLan- 3 days ago d/c all empiric antibiotics as pt. has been on them for 38 days so far and all cx negative except yeast in sputum and urine cx which has been treated with 34 days of IV diflucan. completed total 25 days of IV vanco today. completed 38 days of Iv meropnem today. completed 34 days of IV diflucan. advise to observe pt. off antibiotics. if temp increased to 101 or above panculture again. and would advise to start echinocandins for persistent yeast in urine cx since she was already treated with fluconazole for 34 days. micro lab to ID the yeast. all labs and imaging and chart notes reviewed. critical care time spent 30 min. prognosis poor.
[2018-10-23 15:04] LABS: TOTAL CELLS COUNTED 100
[2018-10-23 15:05] LABS: ANISOCYTOSIS SLIGHT; HYPOCHROMIC SLIGHT; LYMPHOCYTE 3 % (20-50); MONOCYTE 2 % (0-10); NEUTROPHIL 95 % (42-75); OVALOCYTES SLIGHT; PLATELET ESTIMATE NORMAL (NORMAL)
[2018-10-23 15:06] LABS: BURR CELLS SLIGHT; TEARDROP CELLS SLIGHT
--- NOTE | 2018-10-23 15:51 | CP.PCM.PN ---
Subjective - Date & Time of Evaluation Date of Evaluation: 10/23/18 Time of Evaluation: 14:30 - Subjective Subjective: examined patient in bed, mom and other female family member at the bedside Objective - Vital Signs/Intake and Output Vital Signs (last 24 hours): Temp Pulse Resp BP Pulse Ox 100.4 F H 130 H 18 104/58 L 100 10/23/18 12:00 10/23/18 14:00 10/23/18 14:00 10/23/18 14:00 10/23/18 14:00 Intake and Output: 10/23/18 10/23/18 06:59 18:59 Intake Total 1020 918 Output Total 500 Balance 520 918 - Medications Medications: Current Medications Allopurinol (Zyloprim) 100 mg NG DAILY [facility] Last Admin: 09/27/18 08:16 Dose: 100 mg Famotidine (Pepcid) 20 mg IVP Q12 [facility] Last Admin: 10/22/18 20:30 Dose: 20 mg Norepinephrine Bitartrate 16 (mg/ Dextrose) 266 mls @ 9.98 mls/hr IV .Q24H ONE; Protocol Stop: 10/24/18 07:37 Last Admin: 10/23/18 07:50 Dose: 10 mcg/min, 9.98 mls/hr - Labs Labs: 10/23/18 05:10 10/23/18 05:00 PT 14.3 Seconds (9.8-13.1) H 10/20/18 05:33 INR 1.3 10/20/18 05:33 APTT 29.5 Seconds (25.6-37.1) 10/20/18 05:33 - Constitutional Appears: Cachectic, Chronically Ill - Head Exam Head Exam: ATRAUMATIC, NORMAL INSPECTION, NORMOCEPHALIC - Eye Exam Eye Exam: Normal appearance - ENT Exam ENT Exam: Mucous Membranes Moist - Neck Exam Neck Exam: Normal Inspection - Respiratory Exam Respiratory Exam: Decreased Breath Sounds - Cardiovascular Exam Cardiovascular Exam: Tachycardia - GI/Abdominal Exam GI & Abdominal Exam: Distended - Rectal Exam Additional comments: has flexiseal - Extremities Exam Additional comments: upper and lower extremity edema - Neurological Exam Neurological Exam: Alert, Awake - Psychiatric Exam Psychiatric exam: Flat Affect - Skin Skin Exam: Pallor Additional comments: Skin not intact and moist Assessment and Plan - Assessment and Plan (Free Text) Assessment: Palliative Care -awake and alert, does not follow commands -skin warm and moist, not intact -decreased breath sounds, has trach -tachycardic -abdomen round, distended, receiving feeding through OGT - Upper and lower extremity edema Goals of Care: Family held today with patient's mom Nneka. She severity of the patient's illness and poor pronosis was discussed. Options for comfort care and Hospice were given. Patient's mother verbalized understanding. She states that she and the patient's son are still hoping for a cure despite the information given.It was explained that her wishes may not be realistic expectations based on the patient's current condition. She wants to continue FULL TREATMENT at this time. She states that she would like her daughter to eventually receive peg tube if she ever becomes stable. Alignment Mechanic made aware. Code Status: FULL CODE... Mother, Nneka, who is decision maker requests to continue full code status. She verbalized understanding of meaning of Full Code. Alignment Mechanic made aware Impression Stage IV Breast Ca Acute Respiratory Failure Decreased Mobility Multiple Wounds Suggestion Reposition q2h total assist with ADLs Wound Care Mouth Care keep skin clean and dry Palliative care will remain on board as needed and can be reached at [phone] or ext [phone] Time spent with patient 90 min
--- NOTE | 2018-10-23 18:00 | CP.CCUPN ---
CCU Subjective - Physician Review Subjective (Free Text): 10/23/18 18:20 The patient was Seen and examined by me at the bedside, Medical records reviewed and Management issues were discussed and formulated with the house staff. Events reviewed Patient is 58 years old female with past medical history of anemia, anxiety, CHF, deep venous thrombosis, peripheral edema, pulmonary embolism and stage IV advanced metastatic breast cancer Status post chemotherapy 2 days ago Who initially presented to the emergency room on 09/03 for evaluation of intermittent chest pain and shortness of breath for the past 2 days In the emergency room patient stated that this chest pain resolved and breathing got better On exam she was comfortable and was admitted to the medical service Transfused 1 unit of packed red blood cell for hemoglobin of 6.9 also of note Patient recently underwent paracentesis 09/04 Patient was transferred to the intensive care unit after SCALEMAKER was called for severe respiratory distress and hypoxemia and patient found to be confused and respiratory distress BP was stable but she was tachycardic, tachypneic and saturating 88% on non- rebreathing mask she is to receive a stat dose of IV Lasix and transferred to the intensive care unit Upon admitting to the to the ICU she was emergently intubated by anesthesia and mechanically ventilated Patient self extubated and she was in distress and she was reintubated ICU coursed for failure to extubate, and Patient S/P trach last week Currently patient is intubated via Tracheostomy, mechanically ventilated,Off all sedation On PRVC, TV 450, RR 20, FIO2 60% PEEP 5 She looks comfortable and in no distress Sometimes tachypnic, requiring PRN Ativan Improved oxygenation blood pressure boarderline, remains on/off Levophed + Sepsis Febrile today, T 100.6 + Tachycardia, electrolyte including potassium and magnesium was supplemented + Fluid overload on exam, PRN Furosemide (Lasix), will give 12.5 gm albumin followed by IV Lasix Most recent Blood 10/18 negative, and Most recent urine 10/05 and 10/21 C/S + yeast This morning labs revealed Persistent Leucocytosis 14.7, Stable renal function BUN/Cr 67/0.8 and Plat count 152K, Hypernatremia improving Na 141 Discussed with the mother at the bedside patient condition, poor prognosis, treatment plans and alternative Family meeting held today with palliative care nurse and the mother, The mother is determined that she wants everything to be done for the patient and she is in agreement with pursuing PEG and possible LTAC placement CCU Objective - Vital Signs / Intake & Output Vital Signs (Last 4 hours): Vital Signs Temp Pulse Resp BP Pulse Ox 10/23/18 16:00 100.6 F H 124 H 19 94/50 L 100 10/23/18 14:00 130 H 18 104/58 L 100 Intake and Output (Last 8hrs): Intake & Output 10/23/18 10/23/18 10/23/18 06:59 14:59 22:59 Intake Total 880 918 Output Total 500 Balance 380 918 Weight 149 lb 1 oz Intake: IV 0 338 Tube Feeding 280 280 Free Water Flush 600 300 Output: Urine 500 Straight 500 - Physical Exam Head: Positive for: Atraumatic, Normocephalic Pupils: Positive for: PERRL Extroacular Muscles: Positive for: EOMI Conjunctiva: Negative for: Injected, Icteric Ears: Positive for: Normal Mouth: Positive for: Moist Mucous Membranes Nose (Internal): Positive for: Normal Inspection Neck: Positive for: Normal Range of Motion, Trachea Midline. Negative for: Meningeal Signs, MIDLINE TENDERNESS, Paraspinal Tenderness, JVD, Lymphadenopathy, Bruit, Other Respiratory/Chest: Positive for: Good Air Exchange, Rales, Retracting, Rhonchi. Negative for: Respiratory Distress, Accessory Muscle Use, Wheezes, Tachypneic Cardiovascular: Positive for: Regular Rate and Rhythm, Normal S1, S2, Peripheal Pulses Present. Negative for: Murmurs, Irregular Rhythm, Tachycardic, Bradycardic Abdomen: Positive for: Normal Bowel Sounds. Negative for: Tenderness Breast/Axillary: Positive for: Other (fungating necrotic mass to Right Breast) Upper Extremity: Positive for: Edema, NORMAL PULSES. Negative for: Normal Inspection, Cyanosis Lower Extremity: Positive for: Edema, NORMAL PULSES. Negative for: Normal Inspection Neurological: Positive for: Other (on ventilator, opens eyes to verbal stimuli) Psychiatric: Positive for: Other (Sedated and orally intubated). Negative for: Alert - Medications Active Medications: Active Medications Generic Name Dose Route Start Last Admin Trade Name Freq PRN Reason Stop Dose Admin Allopurinol 100 mg 09/14/18 09:00 09/27/18 08:16 Zyloprim NG 100 mg DAILY GLADIS Administration Famotidine 20 mg 10/12/18 21:00 10/22/18 20:30 Pepcid IVP 20 mg Q12 GLADIS Administration Norepinephrine Bitartrate 16 266 mls @ 9.98 mls/hr 10/23/18 07:38 10/23/18 07:50 mg/ Dextrose IV 10/24/18 07:37 10 mcg/min .Q24H ONE 9.98 mls/hr Administration Protocol 10 MCG/MIN - Patient Studies Lab Studies: Microbiology Studies 10/18/18 11:55 Blood Culture - Final Blood-Thru Central Line NO GROWTH AFTER 5 DAYS Gram Stain - Final TEST NOT PERFORMED 10/21/18 08:00 Urine Culture - Final Urine,Catheterized Yeast Species Lab Studies 10/23/18 10/23/18 10/23/18 Range/Units 05:10 05:00 04:33 WBC 14.7 H (4.8-10.8) K/uL RBC 2.89 L (3.80-5.20) Mil/uL Hgb 8.9 L (12.0-16.0) g/dL Hct 27.7 L (34.0-47.0) % MCV 96.1 (81.0-99.0) fl MCH 30.8 (27.0-31.0) pg MCHC 32.0 L (33.0-37.0) g/dL RDW 19.2 H (11.5-14.5) % Plt Count 152 (130-400) K/uL MPV 10.8 (7.2-11.7) fl Neut % (Auto) 91.6 H (50.0-75.0) % Lymph % (Auto) 4.3 L (20.0-40.0) % [place] % (Auto) 3.9 (0.0-10.0) % Eos % (Auto) 0.1 (0.0-4.0) % Baso % (Auto) 0.1 (0.0-2.0) % Neut # (Auto) 13.5 H (1.8-7.0) K/uL Lymph # (Auto) 0.6 L (1.0-4.3) K/uL [place] # (Auto) 0.6 (0.0-0.8) K/uL Eos # (Auto) 0.0 (0.0-0.7) K/uL Baso # (Auto) 0.0 (0.0-0.2) K/uL Neutrophils % (Manual) 95 H (42-75) % Lymphocytes % (Manual) 3 L (20-50) % Monocytes % (Manual) 2 (0-10) % Platelet Estimate Normal (NORMAL) Hypochromasia (manual) Slight Anisocytosis (manual) Slight Tear Drop Cells Slight Ovalocytes Slight [place] Cells Slight pCO2 31 L (35-45) mm/Hg pO2 152 H (80-100) mm/Hg HCO3 23.4 (21-28) mmol/L ABG pH 7.45 (7.35-7.45) ABG Total CO2 22.5 (22-28) mmol/L ABG O2 Saturation 100.2 H (95-98) % ABG O2 Content 12.8 L (15-23) ML/dL ABG Base Excess -2.0 (-2.0-3.0) mmol/L ABG Hemoglobin 9.1 L (11.7-17.4) g/dL ABG Carboxyhemoglobin 1.3 (0.5-1.5) % POC ABG HHb (Measured) -0.2 L (0.0-5.0) % ABG Methemoglobin 1.2 (0.0-3.0) % ABG O2 Capacity 12.8 L (16-24) mL/dL Frederic Test Yes A-a O2 Difference 94.0 mm/Hg Hgb O2 Saturation 97.7 (95.0-98.0) % Vent Mode A/c Mechanical Rate 12 FiO2 40.0 % Tidal Volume 450 PEEP 5 Sodium 141 (132-148) mmol/l Potassium 3.7 (3.6-5.0) MMOL/L Chloride 110 H (98-107) mmol/L Carbon Dioxide 23 (22-30) mmol/L Anion Gap 12 (10-20) BUN 67 H (7-17) mg/dl Creatinine 0.8 (0.7-1.2) mg/dl Est GFR ( Amer) > 60 Est GFR (Non-Af Amer) > 60 POC Glucose (mg/dL) (65-110) mg/dL Random Glucose 140 H (65-105) mg/dL Calcium 7.6 L (8.4-10.2) mg/dL Phosphorus 6.1 H (2.5-4.5) mg/dl Magnesium 2.2 (1.6-2.3) MG/DL Total Bilirubin 0.3 (0.2-1.3) mg/dl AST 16 (14-36) U/L ALT 24 (9-52) U/L Alkaline Phosphatase 99 (38-126) U/L Total Protein 4.9 L (6.3-8.2) G/DL Albumin 2.1 L (3.5-5.0) g/dL Globulin 2.8 (2.2-3.9) gm/dL Albumin/Globulin Ratio 0.7 L (1.0-2.1) 10/22/18 Range/Units 16:44 WBC (4.8-10.8) K/uL RBC (3.80-5.20) Mil/uL Hgb (12.0-16.0) g/dL Hct (34.0-47.0) % MCV (81.0-99.0) fl MCH (27.0-31.0) pg MCHC (33.0-37.0) g/dL RDW (11.5-14.5) % Plt Count (130-400) K/uL MPV (7.2-11.7) fl Neut % (Auto) (50.0-75.0) % Lymph % (Auto) (20.0-40.0) % [place] % (Auto) (0.0-10.0) % Eos % (Auto) (0.0-4.0) % Baso % (Auto) (0.0-2.0) % Neut # (Auto) (1.8-7.0) K/uL Lymph # (Auto) (1.0-4.3) K/uL [place] # (Auto) (0.0-0.8) K/uL Eos # (Auto) (0.0-0.7) K/uL Baso # (Auto) (0.0-0.2) K/uL Neutrophils % (Manual) (42-75) % Lymphocytes % (Manual) (20-50) % Monocytes % (Manual) (0-10) % Platelet Estimate (NORMAL) Hypochromasia (manual) Anisocytosis (manual) Tear Drop Cells Ovalocytes [place] Cells pCO2 (35-45) mm/Hg pO2 (80-100) mm/Hg HCO3 (21-28) mmol/L ABG pH (7.35-7.45) ABG Total CO2 (22-28) mmol/L ABG O2 Saturation (95-98) % ABG O2 Content (15-23) ML/dL ABG Base Excess (-2.0-3.0) mmol/L ABG Hemoglobin (11.7-17.4) g/dL ABG Carboxyhemoglobin (0.5-1.5) % POC ABG HHb (Measured) (0.0-5.0) % ABG Methemoglobin (0.0-3.0) % ABG O2 Capacity (16-24) mL/dL Frederic Test A-a O2 Difference mm/Hg Hgb O2 Saturation (95.0-98.0) % Vent Mode Mechanical Rate FiO2 % Tidal Volume PEEP Sodium (132-148) mmol/l Potassium (3.6-5.0) MMOL/L Chloride (98-107) mmol/L Carbon Dioxide (22-30) mmol/L Anion Gap (10-20) BUN (7-17) mg/dl Creatinine (0.7-1.2) mg/dl Est GFR ( Amer) Est GFR (Non-Af Amer) POC Glucose (mg/dL) 116 H (65-110) mg/dL Random Glucose (65-105) mg/dL Calcium (8.4-10.2) mg/dL Phosphorus (2.5-4.5) mg/dl Magnesium (1.6-2.3) MG/DL Total Bilirubin (0.2-1.3) mg/dl AST (14-36) U/L ALT (9-52) U/L Alkaline Phosphatase (38-126) U/L Total Protein (6.3-8.2) G/DL Albumin (3.5-5.0) g/dL Globulin (2.2-3.9) gm/dL Albumin/Globulin Ratio (1.0-2.1) Laboratory Results - last 24 hr 10/22/18 10/23/18 10/23/18 16:44 04:33 05:00 WBC RBC Hgb Hct MCV MCH MCHC RDW Plt Count MPV Neut % (Auto) Lymph % (Auto) [place] % (Auto) Eos % (Auto) Baso % (Auto) Neut # (Auto) Lymph # (Auto) [place] # (Auto) Eos # (Auto) Baso # (Auto) Neutrophils % (Manual) Lymphocytes % (Manual) Monocytes % (Manual) Platelet Estimate Hypochromasia (manual) Anisocytosis (manual) Tear Drop Cells Ovalocytes [place] Cells pCO2 31 L pO2 152 H HCO3 23.4 ABG pH 7.45 ABG Total CO2 22.5 ABG O2 Saturation 100.2 H ABG O2 Content 12.8 L ABG Base Excess -2.0 ABG Hemoglobin 9.1 L ABG Carboxyhemoglobin 1.3 POC ABG HHb (Measured) -0.2 L ABG Methemoglobin 1.2 ABG O2 Capacity 12.8 L Frederic Test Yes A-a O2 Difference 94.0 Hgb O2 Saturation 97.7 Vent Mode A/c Mechanical Rate 12 FiO2 40.0 Tidal Volume 450 PEEP 5 Sodium 141 Potassium 3.7 Chloride 110 H Carbon Dioxide 23 Anion Gap 12 BUN 67 H Creatinine 0.8 Est GFR ( Amer) > 60 Est GFR (Non-Af Amer) > 60 POC Glucose (mg/dL) 116 H Random Glucose 140 H Calcium 7.6 L Phosphorus 6.1 H Magnesium 2.2 Total Bilirubin 0.3 AST 16 ALT 24 Alkaline Phosphatase 99 Total Protein 4.9 L Albumin 2.1 L Globulin 2.8 Albumin/Globulin Ratio 0.7 L 10/23/18 05:10 WBC 14.7 H RBC 2.89 L Hgb 8.9 L Hct 27.7 L MCV 96.1 MCH 30.8 MCHC 32.0 L RDW 19.2 H Plt Count 152 MPV 10.8 Neut % (Auto) 91.6 H Lymph % (Auto) 4.3 L [place] % (Auto) 3.9 Eos % (Auto) 0.1 Baso % (Auto) 0.1 Neut # (Auto) 13.5 H Lymph # (Auto) 0.6 L [place] # (Auto) 0.6 Eos # (Auto) 0.0 Baso # (Auto) 0.0 Neutrophils % (Manual) 95 H Lymphocytes % (Manual) 3 L Monocytes % (Manual) 2 Platelet Estimate Normal Hypochromasia (manual) Slight Anisocytosis (manual) Slight Tear Drop Cells Slight Ovalocytes Slight [place]a Cells Slight pCO2 pO2 HCO3 ABG pH ABG Total CO2 ABG O2 Saturation ABG O2 Content ABG Base Excess ABG Hemoglobin ABG Carboxyhemoglobin POC ABG HHb (Measured) ABG Methemoglobin ABG O2 Capacity Frederic Test A-a O2 Difference Hgb O2 Saturation Vent Mode Mechanical Rate FiO2 Tidal Volume PEEP Sodium Potassium Chloride Carbon Dioxide Anion Gap BUN Creatinine Est GFR ( Amer) Est GFR (Non-Af Amer) POC Glucose (mg/dL) Random Glucose Calcium Phosphorus Magnesium Total Bilirubin AST ALT Alkaline Phosphatase Total Protein Albumin Globulin Albumin/Globulin Ratio Critical Care Progress Note - Nutrition Nutrition: Nutrition Category Date Time Status NPO Diet [DIET] Diets 10/03/18 Breakfast Active Assessment/Plan (1) Severe sepsis Current Visit: Yes Status: Acute Priority: Medium Comment: Patient of antibiotic completed several courses most recent was IV Vancomycin 750 mg IVPB Q12, Fluconazole (Diflucan) 100 Mg IVPB DAILY and Meropenem 1 gm IVBP Q8H (2) Acute respiratory failure with hypoxia Current Visit: Yes Status: Acute Priority: High Comment: Intubated for hypoxemic respiratory failure S/P Tracheostomy strict I&O, Maintian negative fluid balance Continue diuresis as blood pressure permits She is not a candidate for spontaneous breathing since she is not clinically stable and very poor mental status Discussed with the mother at the bedside patient condition, poor prognosis, treatment plans and alternative Will schedule Pt for PEG (3) Congestive heart failure (CHF) Current Visit: Yes Status: Acute Priority: High Comment: Intubated for hypoxemic respiratory failure strict I&O, Maintian negative fluid balance Continue diuresis as blood pressure permits PRN Furosemide (Lasix) (4) DVT of lower extremity, bilateral Current Visit: No Status: Chronic Priority: Medium Comment: Patient with H/O provoked DVT and Pulmonary embolism She was Apixaban (Eliquis) 5 mg PO BID Now off due to bleeding from uterine cancer (5) Pulmonary embolism on left Current Visit: No Status: Chronic Priority: Medium Comment: Patient with H/O provoked DVT and Pulmonary embolism Continue Apixaban (Eliquis) 5 mg PO BID (6) Breast CA Current Visit: Yes Status: Acute Priority: High (7) Anemia Current Visit: Yes Status: Acute Priority: High Comment: Anemia is likely multifactorial from chronic disease and bleeding from uterine cancer Transfuse as needed Hematology oncology consult appreciated
[2018-10-23] MEDS ORDERED: Albumin Human 5% (12.5 gm/250 ml) IV ONE (18:20)
[2018-10-23] MEDS ORDERED: Chlorhexidine Gluconate 1 APPL/PKT TP ONE (22:39)
--- NOTE | 2018-10-23 22:40 | CP.PCM.PN ---
Subjective - Date & Time of Evaluation Date of Evaluation: 10/23/18 Time of Evaluation: 20:00 - Subjective Subjective: [place] Objective - Vital Signs/Intake and Output Vital Signs (last 24 hours): Temp Pulse Resp BP Pulse Ox 99.9 F H 118 H 16 101/58 L 100 10/23/18 22:00 10/23/18 22:00 10/23/18 22:00 10/23/18 22:00 10/23/18 22:00 Intake and Output: 10/23/18 10/24/18 18:59 06:59 Intake Total 1394 140 Balance 1394 140 - Medications Medications: Current Medications Allopurinol (Zyloprim) 100 mg NG DAILY GLADIS Last Admin: 09/27/18 08:16 Dose: 100 mg Famotidine (Pepcid) 20 mg IVP Q12 GLADIS Last Admin: 10/23/18 21:56 Dose: 20 mg Norepinephrine Bitartrate 16 (mg/ Dextrose) 266 mls @ 9.98 mls/hr IV .Q24H ONE; Protocol Stop: 10/24/18 07:37 Last Admin: 10/23/18 07:50 Dose: 10 mcg/min, 9.98 mls/hr - Labs Labs: 10/23/18 05:10 10/23/18 05:00 PT 14.3 Seconds (9.8-13.1) H 10/20/18 05:33 INR 1.3 10/20/18 05:33 APTT 29.5 Seconds (25.6-37.1) 10/20/18 05:33 - Head Exam Head Exam: ATRAUMATIC - Eye Exam Eye Exam: Normal appearance - ENT Exam ENT Exam: Mucous Membranes Dry - Respiratory Exam Respiratory Exam: Decreased Breath Sounds - Cardiovascular Exam Cardiovascular Exam: +S1, +S2 - GI/Abdominal Exam GI & Abdominal Exam: Normal Bowel Sounds - Extremities Exam Extremities Exam: Pedal Edema Assessment and Plan (1) Anemia Assessment & Plan: anemia of chronic disease 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
--- NOTE | 2018-10-24 03:08 | CP.PCM.PN ---
Subjective - Date & Time of Evaluation Date of Evaluation: 10/23/18 Time of Evaluation: 19:30 - Subjective Subjective: Seen and examined at the bed side. Patient continue to decline. Anasarca, continue to be intubated and unresponsive. NOK refused DNR/DNI and end of lefe care. Unstable to discharge as patient is on Pressors, and will need G-Tube to send her even to [facility] Objective - Vital Signs/Intake and Output Vital Signs (last 24 hours): Temp Pulse Resp BP Pulse Ox 99.1 F 109 H 14 103/59 L 100 10/24/18 02:00 10/24/18 02:00 10/24/18 02:00 10/24/18 02:00 10/24/18 02:00 Intake and Output: 10/23/18 10/24/18 18:59 06:59 Intake Total 1394 830 Balance 1394 830 - Medications Medications: Current Medications Allopurinol (Zyloprim) 100 mg NG DAILY [facility] Last Admin: 09/27/18 08:16 Dose: 100 mg Famotidine (Pepcid) 20 mg IVP Q12 [facility] Last Admin: 10/23/18 21:56 Dose: 20 mg Norepinephrine Bitartrate 16 (mg/ Dextrose) 266 mls @ 9.98 mls/hr IV .Q24H ONE; Protocol Stop: 10/24/18 07:37 Last Admin: 10/23/18 07:50 Dose: 10 mcg/min, 9.98 mls/hr - Labs Labs: 10/23/18 05:10 10/23/18 05:00 PT 14.3 Seconds (9.8-13.1) H 10/20/18 05:33 INR 1.3 10/20/18 05:33 APTT 29.5 Seconds (25.6-37.1) 10/20/18 05:33 Assessment and Plan (1) Septic shock Status: Resolved (2) Multiple organ dysfunction syndrome Status: Acute (3) Acute respiratory failure with hypoxemia Status: Acute (4) Thrombocytopenia Status: Resolved (5) Ascites, malignant Status: Acute (6) Congestive heart failure (CHF) Status: Acute (7) Stage IV breast cancer in female Status: Acute (8) Severe anemia Status: Resolved (9) DVT of lower extremity, bilateral Status: Chronic (10) Anasarca Status: Acute
[2018-10-24] MEDS ORDERED: Chlorhexidine Gluconate 1 APPL/PKT TP ONE (04:47)
[2018-10-24 05:18] LABS: HEMOGLOBIN 8.5 g/dL (12.0-16.0); MEAN CORPUSCULAR HEMOGLOBIN 30.5 pg (27.0-31.0); MEAN CORPUSCULAR HGB CONC 31.7 g/dL (33.0-37.0); RBC 2.8 Mil/uL (3.80-5.20); RED CELL DISTRIBUTION WIDTH 19.2 % (11.5-14.5); WHITE BLOOD COUNT 12.8 K/uL (4.8-10.8)
[2018-10-24 05:33] LABS: ABG ALLEN TEST YES; ARTERIAL BLOOD GAS HCO3 22.1 mmol/L (21-28); ARTERIAL BLOOD GAS HEMOGLOBIN 9.3 g/dL (11.7-17.4); ARTERIAL BLOOD GAS O2 CAPACITY 12.6 mL/dL (16-24); ARTERIAL BLOOD GAS O2 CONTENT 11.8 ML/dL (15-23); ARTERIAL BLOOD GAS O2 SAT 93.8 % (95-98); ARTERIAL BLOOD GAS PCO2 37 mm/Hg (35-45); ARTERIAL BLOOD GAS PH 7.37 (7.35-7.45); ARTERIAL BLOOD GAS PO2 55 mm/Hg (80-100); ARTERIAL BLOOD GAS TCO2 22.5 mmol/L (22-28)
[2018-10-24 05:39] LABS: ALB/GLOB RATIO 0.8 (1.0-2.1); ALBUMIN 2.1 g/dL (3.5-5.0); ALT/SGPT 16 U/L (9-52); AST/SGOT 16 U/L (14-36); BLOOD UREA NITROGEN 61 mg/dl (7-17); CALCIUM 7.5 mg/dL (8.4-10.2); GFR NON-AFRICAN AMERICAN > 60
--- NOTE | 2018-10-24 08:21 | RAD ---
Date of service: 10/24/2018 HISTORY: Pt. intubated COMPARISON: Portable chest 10/21/2018. TECHNIQUE: 1 view obtained. FINDINGS: LUNGS: Tracheostomy tube and left MediPort unchanged in position. Nasogastric tube unchanged. Limited patchy atelectasis is favored over infiltrate at the right base with likely elevated right hemidiaphragm again evident. No left-sided infiltrate. PLEURA: Minimal right pleural effusion question. No left pleural effusion or pneumothorax bilaterally, representing interval improvement. CARDIOVASCULAR: Calcific atherosclerotic changes are seen related to the thoracic aorta. Normal cardiac size. No pulmonary vascular congestion. OSSEOUS STRUCTURES: No significant abnormalities. VISUALIZED UPPER ABDOMEN: Normal. OTHER FINDINGS: None. IMPRESSION: Resolution of prior left pleural effusion with no left-sided infiltrate evident. Limited atelectasis favored over infiltrate right base with trace right pleural effusion present. Elevated right hemidiaphragm again suggested.
--- NOTE | 2018-10-24 10:11 | CP.PCM.PN ---
Subjective - Date & Time of Evaluation Date of Evaluation: 10/24/18 Time of Evaluation: 10:09 - Subjective Subjective: no overnight events Objective - Vital Signs/Intake and Output Vital Signs (last 24 hours): Temp Pulse Resp BP Pulse Ox 99.1 F 120 H 15 98/54 L 100 10/24/18 08:00 10/24/18 08:00 10/24/18 08:00 10/24/18 08:00 10/24/18 08:00 Intake and Output: 10/24/18 10/24/18 06:59 18:59 Intake Total 1270 Output Total 65 Balance 1205 - Medications Medications: Current Medications Allopurinol (Zyloprim) 100 mg NG DAILY GLADIS Last Admin: 09/27/18 08:16 Dose: 100 mg Famotidine (Pepcid) 20 mg IVP Q12 GLADIS Last Admin: 10/24/18 09:02 Dose: 20 mg - Labs Labs: 10/24/18 04:11 10/24/18 04:11 PT 14.3 Seconds (9.8-13.1) H 10/20/18 05:33 INR 1.3 10/20/18 05:33 APTT 29.5 Seconds (25.6-37.1) 10/20/18 05:33 - Neck Exam Neck Exam: Normal Inspection - Respiratory Exam Respiratory Exam: Rhonchi - Cardiovascular Exam Cardiovascular Exam: REGULAR RHYTHM - GI/Abdominal Exam GI & Abdominal Exam: Distended, Soft, Normal Bowel Sounds - Rectal Exam Rectal Exam: Deferred Assessment and Plan - Assessment and Plan (Free Text) Assessment: 58 yo female with terminal cancer and dysphagia prescence of ascites makes placing PEG difficult and risky rec: IR for placement of Aspira cathether for palliative paracentesis prognosis Poor will place PEG once optimized
--- NOTE | 2018-10-24 12:03 | CP.CCUPN ---
CCU Subjective - Physician Review Subjective (Free Text): 10/24/18 11:51 The patient was Seen and examined by me at the bedside, Medical records reviewed and Management issues were discussed and formulated with the house staff. Events reviewed Patient is 58 years old female with past medical history of anemia, anxiety, CHF, deep venous thrombosis, peripheral edema, pulmonary embolism and stage IV advanced metastatic breast cancer Status post chemotherapy 2 days ago Who initially presented to the emergency room on 09/03 for evaluation of intermittent chest pain and shortness of breath for the past 2 days In the emergency room patient stated that this chest pain resolved and breathing got better On exam she was comfortable and was admitted to the medical service Transfused 1 unit of packed red blood cell for hemoglobin of 6.9 also of note Patient recently underwent paracentesis 09/04 Patient was transferred to the intensive care unit after HEALTH INFORMATION TECHNOLOGIST was called for severe respiratory distress and hypoxemia and patient found to be confused and respiratory distress BP was stable but she was tachycardic, tachypneic and saturating 88% on non- rebreathing mask she is to receive a stat dose of IV Lasix and transferred to the intensive care unit Upon admitting to the to the ICU she was emergently intubated by anesthesia and mechanically ventilated Patient self extubated and she was in distress and she was reintubated ICU coursed for failure to extubate, and Patient S/P trach Currently patient is intubated via Tracheostomy, mechanically ventilated, On PRVC, TV 450, RR 20, FIO2 60% PEEP 5 No improvement of mental status, Off all sedation She looks comfortable and in no distress Sometimes tachypnic, requiring PRN Ativan Improved oxygenation blood pressure boarderline, remains on Levophed at 10 mcg/min + Sepsis better controlled AFebrile today, Tmx 100.6 + Tachycardia, electrolyte including potassium and magnesium was repleted + Fluid overload on exam, PRN Furosemide (Lasix), will give 12.5 gm albumin followed by IV Lasix Most recent Blood 10/18 negative, and Most recent urine 10/05 and 10/21 C/S + yeast This morning labs revealed Persistent Leucocytosis 14.7, Stable renal function BUN/Cr 67/0.8 and Plat count 152K, Hypernatremia improving Na 141 Discussed with the mother at the bedside patient condition, poor prognosis, treatment plans and alternative 10/23 another Family meeting held yesterday with palliative care nurse and the mother, The mother is determined that she wants everything to be done for the patient and she is in agreement with pursuing PEG and possible LTAC placement Discussed patient case with manager field services and the plan is for PEG tube placement after the recurrent ascites fluid will be addressed, patient with malignant ascites status post Pararacentesis multiple times on the current admission, discussed with interventional radiology and the plan is to Place Aspira Pleurx catheter for continuous drainage, will discuss with the social work professor for make an arrangement with the family education and the upon discharge for the accepting facility to be able to continue with the drainage CCU Objective - Vital Signs / Intake & Output Vital Signs (Last 4 hours): Vital Signs Temp Pulse Resp BP Pulse Ox 10/24/18 08:00 99.1 F 120 H 15 98/54 L 100 Intake and Output (Last 8hrs): Intake & Output 10/23/18 10/24/18 10/24/18 22:59 06:59 14:59 Intake Total 686 1060 Output Total 65 Balance 686 995 Weight 144 lb Intake: IV 36 Tube Feeding 350 210 Albumin 250 Free Water Flush 300 600 Output: Urine 15 Urine, Voided 15 Stool 50 - Physical Exam Head: Positive for: Atraumatic, Normocephalic Pupils: Positive for: PERRL Extroacular Muscles: Positive for: EOMI Conjunctiva: Negative for: Injected, Icteric Ears: Positive for: Normal Mouth: Positive for: Moist Mucous Membranes Nose (Internal): Positive for: Normal Inspection Neck: Positive for: Normal Range of Motion, Trachea Midline. Negative for: Meningeal Signs, MIDLINE TENDERNESS, Paraspinal Tenderness, JVD, Lymphadenopathy, Bruit, Other Respiratory/Chest: Positive for: Good Air Exchange, Rales, Retracting, Rhonchi. Negative for: Respiratory Distress, Accessory Muscle Use, Wheezes, Tachypneic Cardiovascular: Positive for: Regular Rate and Rhythm, Normal S1, S2, Peripheal Pulses Present. Negative for: Murmurs, Irregular Rhythm, Tachycardic, Bradycardic Abdomen: Positive for: Normal Bowel Sounds. Negative for: Tenderness Breast/Axillary: Positive for: Other (fungating necrotic mass to Right Breast) Upper Extremity: Positive for: Edema, NORMAL PULSES. Negative for: Normal Inspection, Cyanosis Lower Extremity: Positive for: Edema, NORMAL PULSES. Negative for: Normal Inspection Neurological: Positive for: Other (on ventilator, opens eyes to verbal stimuli) Psychiatric: Positive for: Other (Sedated and orally intubated). Negative for: Alert - Medications Active Medications: Active Medications Generic Name Dose Route Start Last Admin Trade Name Teeq PRN Reason Stop Dose Admin Allopurinol 100 mg 09/14/18 09:00 09/27/18 08:16 Zyloprim NG 100 mg DAILY GLADIS Administration Famotidine 20 mg 10/12/18 21:00 10/24/18 09:02 Pepcid IVP 20 mg Q12 GLADIS Administration - Patient Studies Lab Studies: Microbiology Studies 10/18/18 11:55 Blood Culture - Final Blood-Thru Central Line NO GROWTH AFTER 5 DAYS Gram Stain - Final TEST NOT PERFORMED 10/21/18 08:00 Urine Culture - Final Urine,Catheterized Yeast Species Lab Studies 10/24/18 10/24/18 10/24/18 Range/Units 04:43 04:11 04:11 WBC 12.8 H (4.8-10.8) K/uL RBC 2.80 L (3.80-5.20) Mil/uL Hgb 8.5 L (12.0-16.0) g/dL Hct 26.9 L (34.0-47.0) % MCV 96.0 (81.0-99.0) fl MCH 30.5 (27.0-31.0) pg MCHC 31.7 L (33.0-37.0) g/dL RDW 19.2 H (11.5-14.5) % Plt Count 145 (130-400) K/uL Neutrophils % (Manual) (42-75) % Lymphocytes % (Manual) (20-50) % Monocytes % (Manual) (0-10) % Platelet Estimate (NORMAL) Hypochromasia (manual) Anisocytosis (manual) Tear Drop Cells Ovalocytes Naina Cells pCO2 37 (35-45) mm/Hg pO2 55 L (80-100) mm/Hg HCO3 22.1 (21-28) mmol/L ABG pH 7.37 (7.35-7.45) ABG Total CO2 22.5 (22-28) mmol/L ABG O2 Saturation 93.8 L (95-98) % ABG O2 Content 11.8 L (15-23) ML/dL ABG Base Excess -3.5 L (-2.0-3.0) mmol/L ABG Hemoglobin 9.3 L (11.7-17.4) g/dL ABG Carboxyhemoglobin 2.0 H (0.5-1.5) % POC ABG HHb (Measured) 6.0 H (0.0-5.0) % ABG Methemoglobin 1.7 (0.0-3.0) % ABG O2 Capacity 12.6 L (16-24) mL/dL Frederic Test Yes A-a O2 Difference 184.0 mm/Hg Hgb O2 Saturation 90.3 L (95.0-98.0) % Vent Mode A/c Mechanical Rate 12 FiO2 40.0 % Tidal Volume 450 PEEP 5 Sodium 138 (132-148) mmol/l Potassium 3.6 (3.6-5.0) MMOL/L Chloride 108 H (98-107) mmol/L Carbon Dioxide 22 (22-30) mmol/L Anion Gap 12 (10-20) BUN 61 H (7-17) mg/dl Creatinine 0.9 (0.7-1.2) mg/dl Est GFR ( Amer) > 60 Est GFR (Non-Af Amer) > 60 Random Glucose 114 H (65-105) mg/dL Calcium 7.5 L (8.4-10.2) mg/dL Total Bilirubin 0.4 (0.2-1.3) mg/dl AST 16 (14-36) U/L ALT 16 (9-52) U/L Alkaline Phosphatase 95 (38-126) U/L Total Protein 4.9 L (6.3-8.2) G/DL Albumin 2.1 L (3.5-5.0) g/dL Globulin 2.7 (2.2-3.9) gm/dL Albumin/Globulin Ratio 0.8 L (1.0-2.1) 10/23/18 Range/Units 05:10 WBC (4.8-10.8) K/uL RBC (3.80-5.20) Mil/uL Hgb (12.0-16.0) g/dL Hct (34.0-47.0) % MCV (81.0-99.0) fl MCH (27.0-31.0) pg MCHC (33.0-37.0) g/dL RDW (11.5-14.5) % Plt Count (130-400) K/uL Neutrophils % (Manual) 95 H (42-75) % Lymphocytes % (Manual) 3 L (20-50) % Monocytes % (Manual) 2 (0-10) % Platelet Estimate Normal (NORMAL) Hypochromasia (manual) Slight Anisocytosis (manual) Slight Tear Drop Cells Slight Ovalocytes Slight Weston Cells Slight pCO2 (35-45) mm/Hg pO2 (80-100) mm/Hg HCO3 (21-28) mmol/L ABG pH (7.35-7.45) ABG Total CO2 (22-28) mmol/L ABG O2 Saturation (95-98) % ABG O2 Content (15-23) ML/dL ABG Base Excess (-2.0-3.0) mmol/L ABG Hemoglobin (11.7-17.4) g/dL ABG Carboxyhemoglobin (0.5-1.5) % POC ABG HHb (Measured) (0.0-5.0) % ABG Methemoglobin (0.0-3.0) % ABG O2 Capacity (16-24) mL/dL Frederic Test A-a O2 Difference mm/Hg Hgb O2 Saturation (95.0-98.0) % Vent Mode Mechanical Rate FiO2 % Tidal Volume PEEP Sodium (132-148) mmol/l Potassium (3.6-5.0) MMOL/L Chloride (98-107) mmol/L Carbon Dioxide (22-30) mmol/L Anion Gap (10-20) BUN (7-17) mg/dl Creatinine (0.7-1.2) mg/dl Est GFR ( Amer) Est GFR (Non-Af Amer) Random Glucose (65-105) mg/dL Calcium (8.4-10.2) mg/dL Total Bilirubin (0.2-1.3) mg/dl AST (14-36) U/L ALT (9-52) U/L Alkaline Phosphatase (38-126) U/L Total Protein (6.3-8.2) G/DL Albumin (3.5-5.0) g/dL Globulin (2.2-3.9) gm/dL Albumin/Globulin Ratio (1.0-2.1) Laboratory Results - last 24 hr 10/23/18 10/24/18 10/24/18 05:10 04:11 04:11 WBC 12.8 H RBC 2.80 L Hgb 8.5 L Hct 26.9 L MCV 96.0 MCH 30.5 MCHC 31.7 L RDW 19.2 H Plt Count 145 Neutrophils % (Manual) 95 H Lymphocytes % (Manual) 3 L Monocytes % (Manual) 2 Platelet Estimate Normal Hypochromasia (manual) Slight Anisocytosis (manual) Slight Tear Drop Cells Slight Ovalocytes Slight Naina Cells Slight pCO2 pO2 HCO3 ABG pH ABG Total CO2 ABG O2 Saturation ABG O2 Content ABG Base Excess ABG Hemoglobin ABG Carboxyhemoglobin POC ABG HHb (Measured) ABG Methemoglobin ABG O2 Capacity Frederic Test A-a O2 Difference Hgb O2 Saturation Vent Mode Mechanical Rate FiO2 Tidal Volume PEEP Sodium 138 Potassium 3.6 Chloride 108 H Carbon Dioxide 22 Anion Gap 12 BUN 61 H Creatinine 0.9 Est GFR ( Amer) > 60 Est GFR (Non-Af Amer) > 60 Random Glucose 114 H Calcium 7.5 L Total Bilirubin 0.4 AST 16 ALT 16 Alkaline Phosphatase 95 Total Protein 4.9 L Albumin 2.1 L Globulin 2.7 Albumin/Globulin Ratio 0.8 L 10/24/18 04:43 WBC RBC Hgb Hct MCV MCH MCHC RDW Plt Count Neutrophils % (Manual) Lymphocytes % (Manual) Monocytes % (Manual) Platelet Estimate Hypochromasia (manual) Anisocytosis (manual) Tear Drop Cells Ovalocytes Naina Cells pCO2 37 pO2 55 L HCO3 22.1 ABG pH 7.37 ABG Total CO2 22.5 ABG O2 Saturation 93.8 L ABG O2 Content 11.8 L ABG Base Excess -3.5 L ABG Hemoglobin 9.3 L ABG Carboxyhemoglobin 2.0 H POC ABG HHb (Measured) 6.0 H ABG Methemoglobin 1.7 ABG O2 Capacity 12.6 L Frederic Test Yes A-a O2 Difference 184.0 Hgb O2 Saturation 90.3 L Vent Mode A/c Mechanical Rate 12 FiO2 40.0 Tidal Volume 450 PEEP 5 Sodium Potassium Chloride Carbon Dioxide Anion Gap BUN Creatinine Est GFR ( Amer) Est GFR (Non-Af Amer) Random Glucose Calcium Total Bilirubin AST ALT Alkaline Phosphatase Total Protein Albumin Globulin Albumin/Globulin Ratio Radiology Impressions: Radiology Impressions Chest X-Ray 10/24/18 05:00 IMPRESSION: Resolution of prior left pleural effusion with no left-sided infiltrate evident. Limited atelectasis favored over infiltrate right base with trace right pleural effusion present. Elevated right hemidiaphragm again suggested. Critical Care Progress Note - Nutrition Nutrition: Nutrition Category Date Time Status NPO Diet [DIET] Diets 10/03/18 Breakfast Active Assessment/Plan (1) Severe sepsis Current Visit: Yes Status: Acute Priority: Medium Comment: Patient of antibiotic completed several courses most recent was IV Vancomycin 750 mg IVPB Q12, Fluconazole (Diflucan) 100 Mg IVPB DAILY and Meropenem 1 gm IVBP Q8H (2) Acute respiratory failure with hypoxia Current Visit: Yes Status: Acute Priority: High Comment: Intubated for hypoxemic respiratory failure S/P Tracheostomy strict I&O, Maintian negative fluid balance Continue diuresis as blood pressure permits She is not a candidate for spontaneous breathing since she is not clinically stable and very poor mental status Discussed with the mother at the bedside patient condition, poor prognosis, treatment plans and alternative Will schedule Pt for PEG (3) Congestive heart failure (CHF) Current Visit: Yes Status: Acute Priority: High Comment: Intubated for hypoxemic respiratory failure strict I&O, Maintian negative fluid balance Continue diuresis as blood pressure permits PRN Furosemide (Lasix) (4) DVT of lower extremity, bilateral Current Visit: No Status: Chronic Priority: Medium Comment: Patient with H/O provoked DVT and Pulmonary embolism She was Apixaban (Eliquis) 5 mg PO BID Now off due to bleeding from uterine cancer (5) Pulmonary embolism on left Current Visit: No Status: Chronic Priority: Medium Comment: Patient with H/O provoked DVT and Pulmonary embolism Continue Apixaban (Eliquis) 5 mg PO BID (6) Breast CA Current Visit: Yes Status: Acute Priority: High (7) Anemia Current Visit: Yes Status: Acute Priority: High Comment: Anemia is likely multifactorial from chronic disease and bleeding from uterine cancer Transfuse as needed Hematology oncology consult appreciated
--- NOTE | 2018-10-25 00:23 | CP.PCM.PN ---
Subjective - Date & Time of Evaluation Date of Evaluation: 10/24/18 Time of Evaluation: 20:00 - Subjective Subjective: Vented Objective - Vital Signs/Intake and Output Vital Signs (last 24 hours): Temp Pulse Resp BP Pulse Ox 99.5 F 114 H 15 90/53 L 100 10/25/18 00:00 10/25/18 00:00 10/25/18 00:00 10/25/18 00:00 10/25/18 00:00 Intake and Output: 10/24/18 10/25/18 18:59 06:59 Intake Total 440 510 Balance 440 510 - Medications Medications: Current Medications Allopurinol (Zyloprim) 100 mg NG DAILY GLADIS Last Admin: 09/27/18 08:16 Dose: 100 mg Famotidine (Pepcid) 20 mg IVP Q12 GLADIS Last Admin: 10/24/18 21:11 Dose: 20 mg Norepinephrine Bitartrate 16 (mg/ Dextrose) 266 mls @ 2.49 mls/hr IV .Q24H ONE; Protocol Stop: 10/25/18 18:08 Last Admin: 10/24/18 18:44 Dose: 2.5 mcg/min, 2.49 mls/hr - Labs Labs: 10/24/18 04:11 10/24/18 04:11 PT 14.3 Seconds (9.8-13.1) H 10/20/18 05:33 INR 1.3 10/20/18 05:33 APTT 29.5 Seconds (25.6-37.1) 10/20/18 05:33 - Head Exam Head Exam: ATRAUMATIC - Eye Exam Eye Exam: Normal appearance - ENT Exam ENT Exam: Mucous Membranes Dry - Respiratory Exam Respiratory Exam: Decreased Breath Sounds - Cardiovascular Exam Cardiovascular Exam: +S1, +S2 - GI/Abdominal Exam GI & Abdominal Exam: Normal Bowel Sounds Assessment and Plan (1) Anemia Assessment & Plan: anemia of chronic disease [employer]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
--- NOTE | 2018-10-25 01:22 | CP.PCM.PN ---
Subjective - Date & Time of Evaluation Date of Evaluation: 10/24/18 Time of Evaluation: 23:10 - Subjective Subjective: Seen and examined at the bedside. Patient continued to be intubated on mechanical ventilation. GI on board and planning to do PEG tube so that patient can be discharged to LTAC (long-term acute facility). Patient will need thoracentesis and paracentesis before the procedure. Poor prognosis. Objective - Vital Signs/Intake and Output Vital Signs (last 24 hours): Temp Pulse Resp BP Pulse Ox 99.5 F 114 H 15 90/53 L 100 10/25/18 00:00 10/25/18 00:00 10/25/18 00:00 10/25/18 00:00 10/25/18 00:00 Intake and Output: 10/24/18 10/25/18 18:59 06:59 Intake Total 440 510 Balance 440 510 - Medications Medications: Current Medications Allopurinol (Zyloprim) 100 mg NG DAILY [facility] Last Admin: 09/27/18 08:16 Dose: 100 mg Famotidine (Pepcid) 20 mg IVP Q12 [facility] Last Admin: 10/24/18 21:11 Dose: 20 mg Norepinephrine Bitartrate 16 (mg/ Dextrose) 266 mls @ 2.49 mls/hr IV .Q24H ONE; Protocol Stop: 10/25/18 18:08 Last Admin: 10/24/18 18:44 Dose: 2.5 mcg/min, 2.49 mls/hr - Labs Labs: 10/24/18 04:11 10/24/18 04:11 PT 14.3 Seconds (9.8-13.1) H 10/20/18 05:33 INR 1.3 10/20/18 05:33 APTT 29.5 Seconds (25.6-37.1) 10/20/18 05:33 Assessment and Plan (1) Anasarca Status: Acute (2) Septic shock Status: Resolved (3) Multiple organ dysfunction syndrome Status: Acute (4) Acute respiratory failure with hypoxemia Status: Acute (5) Thrombocytopenia Status: Resolved (6) Ascites, malignant Status: Acute (7) Congestive heart failure (CHF) Status: Acute (8) Stage IV breast cancer in female Status: Acute (9) Severe anemia Status: Resolved (10) DVT of lower extremity, bilateral Status: Chronic - Assessment and Plan (Free Text) Plan: Continue current care ABG and chest x-ray daily.
[2018-10-25 04:58] LABS: HEMOGLOBIN 8.7 g/dL (12.0-16.0); MEAN CELL VOLUME 96.8 fl (81.0-99.0); MEAN CORPUSCULAR HEMOGLOBIN 30.4 pg (27.0-31.0); MEAN CORPUSCULAR HGB CONC 31.5 g/dL (33.0-37.0); RBC 2.85 Mil/uL (3.80-5.20); RED CELL DISTRIBUTION WIDTH 18.9 % (11.5-14.5); WHITE BLOOD COUNT 12.3 K/uL (4.8-10.8)
[2018-10-25 05:00] LABS: ALB/GLOB RATIO 0.7 (1.0-2.1); ALT/SGPT 19 U/L (9-52); AST/SGOT 14 U/L (14-36); BLOOD UREA NITROGEN 68 mg/dl (7-17); CALCIUM 7.3 mg/dL (8.4-10.2); GFR NON-AFRICAN AMERICAN 57
[2018-10-25 05:33] LABS: ABG ALLEN TEST YES; ARTERIAL BLOOD GAS HCO3 21.4 mmol/L (21-28); ARTERIAL BLOOD GAS HEMOGLOBIN 9.1 g/dL (11.7-17.4); ARTERIAL BLOOD GAS O2 CAPACITY 12.9 mL/dL (16-24); ARTERIAL BLOOD GAS O2 CONTENT 12.9 ML/dL (15-23); ARTERIAL BLOOD GAS O2 SAT 100.2 % (95-98); ARTERIAL BLOOD GAS PCO2 34 mm/Hg (35-45); ARTERIAL BLOOD GAS PH 7.38 (7.35-7.45); ARTERIAL BLOOD GAS PO2 163 mm/Hg (80-100); ARTERIAL BLOOD GAS TCO2 21.1 mmol/L (22-28)
--- NOTE | 2018-10-25 09:34 | CP.PCM.PN ---
Subjective - Date & Time of Evaluation Date of Evaluation: 10/25/18 Time of Evaluation: 09:34 - Subjective Subjective: ID note- Patient seen and examined today in ICU. Patient remains on the vent and on low-dose levo fed for blood pressure support. Patient is very lethargic. Objective - Vital Signs/Intake and Output Vital Signs (last 24 hours): Temp Pulse Resp BP Pulse Ox 99.5 F 120 H 18 90/41 L 100 10/25/18 06:00 10/25/18 06:00 10/25/18 06:00 10/25/18 06:00 10/25/18 06:00 Intake and Output: 10/25/18 10/25/18 06:59 18:59 Intake Total 1020 Output Total 850 Balance 170 - Medications Medications: Current Medications Allopurinol (Zyloprim) 100 mg NG DAILY [facility]CLUDES [facility] Last Admin: 09/27/18 08:16 Dose: 100 mg Famotidine (Pepcid) 20 mg IVP Q12 [facility] INCLUDES THE [facility] Last Admin: 10/25/18 09:02 Dose: 20 mg Norepinephrine Bitartrate 16 (mg/ Dextrose) 266 mls @ 2.49 mls/hr IV .Q24H ONE; Protocol Stop: 10/25/18 18:08 Last Admin: 10/24/18 18:44 Dose: 2.5 mcg/min, 2.49 mls/hr - Labs Labs: 10/25/18 04:10 10/25/18 04:10 PT 14.3 Seconds (9.8-13.1) H 10/20/18 05:33 INR 1.3 10/20/18 05:33 APTT 29.5 Seconds (25.6-37.1) 10/20/18 05:33 - Additional Findings Additional findings: - Constitutional Appears: Chronically Ill Additional comments: - ENT Exam Additional comments: s/p trache - Respiratory Exam Additional comments: On the vent via Trach - Cardiovascular Exam Cardiovascular Exam: Tachycardia, +S1, +S2 - GI/Abdominal Exam Additional comments: distended hypoactive BS umbilical region with mass like lesion with denuded skin , no pus + ascites - Extremities Exam Additional comments: b/l 2+ edema in LE and UE - Neurological Exam Additional comments: lethargic Microbiology 10/21/18 08:00 Urine,Catheterized Urine Culture - Final Alida Lipolytica 10/18/18 11:55 Blood-Thru Central Line Blood Culture - Final NO GROWTH AFTER 5 DAYS 10/18/18 11:55 Blood-Thru Central Line Gram Stain - Final TEST NOT PERFORMED 10/05/18 06:15 Blood Blood Culture - Final NO GROWTH AFTER 5 DAYS 10/05/18 06:15 Blood Gram Stain - Final TEST NOT PERFORMED 10/05/18 06:30 Blood Blood Culture - Final NO GROWTH AFTER 5 DAYS 10/05/18 06:30 Blood Gram Stain - Final TEST NOT PERFORMED 10/05/18 07:10 Urine,Hardwick Urine Culture - Final Yeast Species 09/25/18 12:10 Blood-Thru Central Line Blood Culture - Final NO GROWTH AFTER 5 DAYS 09/25/18 12:10 Blood-Thru Central Line Gram Stain - Final TEST NOT PERFORMED 09/20/18 14:00 Blood-Thru Central Line Blood Culture - Final NO GROWTH AFTER 5 DAYS 09/20/18 17:53 Trachasp Gram Stain - Final 09/20/18 17:53 Trachasp Sputum Culture - Final Yeast Species 09/20/18 17:53 Urine,Hardwick Urine Culture - Final No Growth (<1,000 CFU/ML) 09/15/18 15:35 Blood-Thru Central Line Blood Culture - Final NO GROWTH AFTER 5 DAYS 09/15/18 15:35 Blood-Thru Central Line Gram Stain - Final TEST NOT PERFORMED 09/15/18 15:25 Blood-Thru Central Line Blood Culture - Final NO GROWTH AFTER 5 DAYS 09/15/18 15:25 Blood-Thru Central Line Gram Stain - Final TEST NOT PERFORMED 09/08/18 11:49 Blood-Venous Blood Culture - Final NO GROWTH AFTER 5 DAYS 09/08/18 11:49 Blood-Venous Gram Stain - Final TEST NOT PERFORMED 09/08/18 11:49 Blood-Venous Blood Culture - Final NO GROWTH AFTER 5 DAYS 09/08/18 11:49 Blood-Venous Gram Stain - Final TEST NOT PERFORMED 09/07/18 Unknown Blood-Thru Central Line Blood Culture - Final NO GROWTH AFTER 5 DAYS 09/07/18 Unknown Blood-Thru Central Line Gram Stain - Final TEST NOT PERFORMED 09/07/18 Unknown Blood-Thru Central Line Blood Culture - Final NO GROWTH AFTER 5 DAYS 09/07/18 Unknown Blood-Thru Central Line Gram Stain - Final TEST NOT PERFORMED 09/07/18 09:07 Trachasp Gram Stain - Final 09/07/18 09:07 Trachasp Sputum Culture - Final Yeast Species 09/04/18 11:25 Naris MRSA Culture (Admit) - Final MRSA NOT DETECTED 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 remains on the vent remains on levophed low grade fever today. leukocytosis much lower. blood cx- neg x 11 trach asp cx- yeast ( treated) stool c.diff- negative repeat UA- negative repeat urine cx- yeast ( treated) hardwick removed 4 days ago repeat urine cx - yeast finally ID as alida lipolytica ( hardwick was removed a week ago). PLan- 5 days ago d/c all empiric antibiotics as pt. has been on them for 38 days so far and all cx negative except yeast in sputum and urine cx which has been treated with 34 days of IV diflucan. completed total 25 days of IV vanco today. completed 38 days of Iv meropnem today. completed 34 days of IV diflucan. advise to observe pt. off antibiotics. would advise since pt. does have this urine yeast culture ( from when she had the hardwick, hardwick since removed) and since she is immune compromised to initiate micafungin for it and advise to check blood cx from the port prior to starting micafungin. all labs and imaging and chart notes reviewed. critical care time spent 30 min. prognosis poor. All above d/w ICU team in detail.
--- NOTE | 2018-10-25 12:45 | PQF ---
PROVIDER RESPONSE TEXT: Sacral ulcer REVIEWER QUERY TEXT: Pressure Ulcer Type Pressure ulcer is documented in the Medical Record. Please specify the location, and laterality of pr essure ulcer(s): versus Disagree -- Other explanation of clinical findings -- Clinically unable to determine -- Unknown 09/05: rug measurer:Pressure Ulcer Assessment::Rt. calf: Partial thickness: B/L Heel: Partial thickness loss of dermis presenting as a shallow ulcer 09/06 and forward: Critical Care note includes: ulcer posterior R calf worse than L, DR DUNLAP 09/06 Wound RN: right posterior calf with denuded area and eschar; Right breast fungating wounds 09/11 Wound RN:Eschar on right calf resloved to yellow base: DTI noted to sacrum 09/16: rug measurer:Pressure Ulcer Assessment:Posterior Sacrum MASD: Partial thickness: Rt. Calf: Partial thickness 09/17 rug measurer:Pressure Ulcer Assessment:Posterior Sacrum: MASD: Full thickness tissue loss and Right Calf: intact skin non-blanchable redness of a localized area 09/20 rug measurer: Pressure Ulcer Assessment: Sacrum: Partial Thickness loss of dermis presenting as a sh allow ulcer Stage of each pressure ulcer (National Pressure Ulcer Advisory Panel definitions): -- Stage I: Intact skin with non-blanchable redness of a localized area -- Stage II: Partial thickness skin loss involving dermis with a shallow open ulcer or an open serum -filled blister -- Stage III: Full thickness skin loss involving damage or necrosis of subcutaneous tissue -- Stage IV: Full thickness skin loss with exposed bone, tendon or muscle -- Unstageable: Full thickness tissue loss in which the base of the ulcer is covered by slough and/o r eschar in the wound bed The patient's Clinical Indicators include: ---- Query created by: Dayami Hood on 09/22/2018 1:22 PM Electronically signed by: Kristen Norris MD 10/25/2018 12:42 PM
--- NOTE | 2018-10-25 14:01 | RAD ---
Date of service: 10/25/2018 HISTORY: Pt trached; on ventilator COMPARISON: Multiple serial examinations preceding the most recent study: October 24, 2018. FINDINGS: LUNGS: Stable right lower lobe infiltrate. PLEURA: Pleural effusion inseparable from adjacent consolidative change. CARDIOVASCULAR: No atherosclerotic calcification present Right Venous access catheter in stable, satisfactory position. OSSEOUS STRUCTURES: No significant abnormalities. VISUALIZED UPPER ABDOMEN: Normal. OTHER FINDINGS: Stable, satisfactory position of tracheostomy device. Stable position of nasogastric tube. IMPRESSION: No significant interval change compared to the prior examination(s).
--- NOTE | 2018-10-25 15:39 | CP.CCUPN ---
CCU Subjective - Physician Review Subjective (Free Text): Still mostly lethargic with eyes opening o pain, but no sustained wakeful state. Levophed requirements variable, has been increased to 20 mcg dose. Breathing 15 on AC 12, does not appear distressed. Temps remain mostly 99-100F with no higher fever spikes. SBP 90- 100s, HR 110s; she is 2.5 liter positive fluid balance last 24H. Required straight cath x1 overnight for 850 ml urine drainage. ROS: No other pertinent negs or positive on 10+ system review obtainable due to lethargic status Other PMSFH: All other Nursing and physician documentation reviewed to date; no new pertinent info noted relevant to current medical problems. EXAM- HEENT: no icterus, pupils equal, 3 mm and reactive, no gaze preference, opens eyes briefly to pain, but no sustained wakeful state NECK: no visible JVD, supple, carotids equal upstroke bilat/no bruits, trach stoma intact CHEST: decreased BS bases, no wheezes audible, bloody fluid drained dressing over R breast. Left chest portacath. HEART: regular, distant, tachy S1S2, no murmur audible, no rubs. ABD: soft, ++distention with ascites, no focal tenderness, BS hypoactive, dried necrotic lesion over umbilicus unchanged. Previous paracentesis puncture site still leaking ascitic fluid. EXT: + anasarca / edema UEs and LEs, no calf tenderness or palpable cords, distal pulses intact and symmetrical NEURO: withdraws to pain stimuli, + tone SKIN: no rashes LABS: WBC= 12.3 HGB= 8.7 PLTs = 157K 7.38/34/163 Na= 136 K= 3.7 Cl= 105 HCO3= 20 BUN/Cr= 68/1.0 BS= 123 CXR: (my interp)- Trach tube within tracheal air column. Left CPA is sharp, lung volume loss on R, and with Reffusion. IMPRESSION / MAJOR PROBLEMS NOW: 1. Acute hypoxemic Resp Failure, 2 bilat multi-lobar pneumonia/ Effusion 2. Persistent vaginal Bleeding 3. Severe Sepsis with shock, 2 Pneumonia, r/o bacteremia 4. Acute on Chronic disease Anemia 5. h/o DVT- bilat CFV on Feb 5. 6. s/p Paracentesis Feb 5 for 2.5 liters, and repeated Sep 7 for 3.6 liters. PLAN: 1. Ongoing attempts to wean off vasopressors. 2. She did tolerate several hours of SBT on low level CPAP PS, could trial off MV onto a trach collar; but still vasopressor dependent at moderate dose levels, and lethargic at times. Will try to lower fiO2 to 35% today. 3. Off ABXs now, follow WBC trends and temps. Will re-panculture if temps rise above 101. Orellana has been out. 4. Serum Na levels have been normal since 10/06/18. BUN Cr now slightly higher today from yesterday. Will start LR at approx. 1000ml/day input and follow trends. 5. Has not been on Chemoprophylaxis for DVTs given ongoing bleeding from Vagina and possible uterine source, nor on SCDs. Get venous Doppler of legs to look for DVT, will place SCDs if negative. 6. Discussion made to place ascitic fluid drainage catheter. Check repeat coags.
--- NOTE | 2018-10-25 22:54 | CP.PCM.PN ---
Subjective - Date & Time of Evaluation Date of Evaluation: 10/25/18 Time of Evaluation: 11:00 - Subjective Subjective: Vented Objective - Vital Signs/Intake and Output Vital Signs (last 24 hours): Temp Pulse Resp BP Pulse Ox 100.4 F H 118 H 16 99/63 L 100 10/25/18 21:00 10/25/18 21:00 10/25/18 21:00 10/25/18 21:00 10/25/18 21:00 Intake and Output: 10/25/18 10/26/18 18:59 06:59 Intake Total 475 70 Output Total 600 Balance -125 70 - Medications Medications: Current Medications Allopurinol (Zyloprim) 100 mg NG DAILY [facility] Last Admin: 09/27/18 08:16 Dose: 100 mg Famotidine (Pepcid) 20 mg IVP Q12 [facility] Last Admin: 10/25/18 20:41 Dose: 20 mg Norepinephrine Bitartrate 16 (mg/ Dextrose) 266 mls @ 19.95 mls/hr IV .[id number] ONE; Protocol Stop: 10/26/18 04:23 Last Admin: 10/25/18 18:47 Dose: 20 mcg/min, 19.95 mls/hr - Labs Labs: 10/25/18 04:10 10/25/18 04:10 PT 14.3 Seconds (9.8-13.1) H 10/20/18 05:33 INR 1.3 10/20/18 05:33 APTT 29.5 Seconds (25.6-37.1) 10/20/18 05:33 - Head Exam Head Exam: ATRAUMATIC - Eye Exam Eye Exam: Normal appearance - ENT Exam ENT Exam: Mucous Membranes Dry - Respiratory Exam Respiratory Exam: Decreased Breath Sounds - Cardiovascular Exam Cardiovascular Exam: +S1, +S2 - GI/Abdominal Exam GI & Abdominal Exam: Normal Bowel Sounds - Extremities Exam Extremities Exam: Pedal Edema Assessment and Plan (1) Anemia Assessment & Plan: anemia of chronic disease [employer]UP[employer]ER[employer]IST blood loss transfusion support 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
[2018-10-26 05:55] LABS: ABG ALLEN TEST YES; ARTERIAL BLOOD GAS HCO3 22.1 mmol/L (21-28); ARTERIAL BLOOD GAS O2 CAPACITY 12.6 mL/dL (16-24); ARTERIAL BLOOD GAS O2 CONTENT 12.7 ML/dL (15-23); ARTERIAL BLOOD GAS O2 SAT 100.4 % (95-98); ARTERIAL BLOOD GAS PCO2 31 mm/Hg (35-45); ARTERIAL BLOOD GAS PH 7.42 (7.35-7.45); ARTERIAL BLOOD GAS PO2 145 mm/Hg (80-100); ARTERIAL BLOOD GAS TCO2 21.1 mmol/L (22-28)
[2018-10-26 07:11] LABS: HEMOGLOBIN 9.4 g/dL (12.0-16.0); MEAN CELL VOLUME 97.6 fl (81.0-99.0); MEAN CORPUSCULAR HEMOGLOBIN 31.1 pg (27.0-31.0); MEAN CORPUSCULAR HGB CONC 31.8 g/dL (33.0-37.0); RBC 3.03 Mil/uL (3.80-5.20); RED CELL DISTRIBUTION WIDTH 19.1 % (11.5-14.5); WHITE BLOOD COUNT 11.2 K/uL (4.8-10.8)
[2018-10-26 07:27] LABS: ALB/GLOB RATIO 0.7 (1.0-2.1); ALBUMIN 2.2 g/dL (3.5-5.0); ALT/SGPT 19 U/L (9-52); AST/SGOT 16 U/L (14-36); BLOOD UREA NITROGEN 68 mg/dl (7-17); CALCIUM 7.4 mg/dL (8.4-10.2); GFR NON-AFRICAN AMERICAN > 60
--- NOTE | 2018-10-26 10:10 | CP.PCM.PN ---
Subjective - Date & Time of Evaluation Date of Evaluation: 10/25/18 Time of Evaluation: 07:20 - Subjective Subjective: Seen and examined at the bedside. Patient continued to be intubated on mechanical ventilation. GI on board and planning to do PEG tube so that patient can be discharged to LTAC (long-term acute facility). Patient will need thoracentesis and paracentesis before the procedure. Poor prognosis. Objective - Vital Signs/Intake and Output Vital Signs (last 24 hours): Temp Pulse Resp BP Pulse Ox 99.5 F 114 H 16 93/59 L 100 10/26/18 08:00 10/26/18 08:00 10/26/18 08:00 10/26/18 08:00 10/26/18 08:00 Intake and Output: 10/26/18 10/26/18 06:59 18:59 Intake Total 1245 102 Output Total 425 Balance 820 102 - Medications Medications: Current Medications Allopurinol (Zyloprim) 100 mg NG DAILY [facility] Last Admin: 09/27/18 08:16 Dose: 100 mg Famotidine (Pepcid) 20 mg IVP Q12 [facility] Last Admin: 10/26/18 08:35 Dose: 20 mg Norepinephrine Bitartrate 16 (mg/ Dextrose) 266 mls @ 19.95 mls/hr IV .[id number] ONE; Protocol Stop: 10/26/18 21:49 - Labs Labs: 10/26/18 05:40 10/26/18 05:40 PT 14.3 Seconds (9.8-13.1) H 10/20/18 05:33 INR 1.3 10/20/18 05:33 APTT 29.5 Seconds (25.6-37.1) 10/20/18 05:33 Assessment and Plan (1) Anasarca Status: Acute (2) Septic shock Status: Resolved (3) Multiple organ dysfunction syndrome Status: Acute (4) Acute respiratory failure with hypoxemia Status: Acute (5) Thrombocytopenia Status: Resolved (6) Ascites, malignant Status: Acute (7) Congestive heart failure (CHF) Status: Acute (8) Stage IV breast cancer in female Status: Acute (9) Severe anemia Status: Resolved (10) DVT of lower extremity, bilateral Status: Chronic - Assessment and Plan (Free Text) Plan: Poor Prognsis Continue current Care
--- NOTE | 2018-10-26 11:12 | RAD ---
Date of service: 10/26/2018 HISTORY: Trach to vent COMPARISON: 10/25/2018 TECHNIQUE: 1 view obtained. FINDINGS: LUNGS: No active pulmonary disease. PLEURA: No significant pleural effusion identified, no pneumothorax apparent. CARDIOVASCULAR: No aortic atherosclerotic calcification present. Normal cardiac size. ET tube, NG tube and left central venous infusion port unchanged. OSSEOUS STRUCTURES: No significant abnormalities. VISUALIZED UPPER ABDOMEN: Normal. OTHER FINDINGS: None. IMPRESSION: No active disease.
--- NOTE | 2018-10-26 12:43 | CP.CCUPN ---
CCU Subjective - Physician Review Subjective (Free Text): Still mostly lethargic with eyes opening to pain, but no sustained wakeful state. Levophed requirements persist and unable to lower dose, beimg maintained at 20 mcg dose. Breathing 15 on AC 12, does not appear distressed. Max temp for he day so far at 100.6F. Temps remain mostly 99-100F with no higher fever spikes. SBP 90- 100s, HR 110s; she is 0.6 liter positive fluid balance last 24H. Required straight cath x1 overnight for 400 ml urine drainage. ROS: No other pertinent negs or positive on 10+ system review obtainable due to lethargic status Other PMSFH: All other Nursing and physician documentation reviewed to date; no new pertinent info noted relevant to current medical problems. EXAM- HEENT: no icterus, pupils equal, 3 mm and reactive, no gaze preference, opens eyes briefly to pain, but no sustained wakeful state NECK: no visible JVD, supple, carotids equal upstroke bilat/no bruits, trach stoma intact CHEST: decreased BS bases, no wheezes audible, bloody fluid drained dressing over R breast. Left chest portacath. HEART: regular, distant, tachy S1S2, no murmur audible, no rubs. ABD: soft, ++distention with ascites, no focal tenderness, BS hypoactive, dried necrotic lesion over umbilicus unchanged. Previous paracentesis puncture site still leaking ascitic fluid. EXT: + anasarca / edema UEs and LEs, no calf tenderness or palpable cords, distal pulses intact and symmetrical NEURO: withdraws to pain stimuli, + tone SKIN: no rashes LABS: WBC= 11.2 HGB= 9.4 PLTs = 169K 7.42/31/145 on 35% oxygen Na= 135 K= 3.9 Cl= 104 HCO3= 20 BUN/Cr= 68/0.9 BS= 111 CXR: (my interp)- Trach tube within tracheal air column. Left CPA is sharp, lung volume loss on R, and with R effusion; overall stable findings. IMPRESSION / MAJOR PROBLEMS NOW: 1. Acute hypoxemic Resp Failure, 2 bilat multi-lobar pneumonia/ Effusion 2. Persistent vaginal Bleeding 3. Severe Sepsis with shock, 2 Pneumonia, r/o bacteremia 4. Acute on Chronic disease Anemia 5. h/o DVT- bilat CFV on Aug 5. 6. s/p Paracentesis Fe 5 for 2.5 liters, and repeated Sep 7 for 3.6 liters. PLAN: 1. Trial CPAP PS today as tolerated, will attempt weans to trach collar. 2. Ongoing attempts to wean off vasopressors. 3. Off ABXs now, follow WBC trends and temps. Will re-panculture if temps rise above 101. Orellana has been out. 4. Serum Na levels have been normal since 10/06/18. BUN Cr now slightly higher today from yesterday. Will start LR at approx. 1000ml/day input and follow trends. 5. Has not been on Chemoprophylaxis for DVTs given ongoing bleeding from Vagina and possible uterine source, nor on SCDs. Get venous Doppler of legs to look for DVT, will place SCDs if negative. 6. Aware of consideration for further drainage of ascitic fluid with in- dwelling catheter. Check repeat coags.
[2018-10-26] MEDS: Lactated Ringer's 1,000 ML IV SCH (13:24)
--- NOTE | 2018-10-26 18:37 | US ---
Date of service: 10/26/2018 PROCEDURE: Bilateral lower extremity venous duplex Doppler. HISTORY: r/o DVT COMPARISON: 08/29/2018. TECHNIQUE: Bilateral common femoral, superficial femoral, popliteal and posterior tibial veins were evaluated. Flow was assessed with color Doppler, compressibility, assessment of phasic flow and augmentation response. FINDINGS: COMMON FEMORAL VEIN: Right CFV: There is chronic partially occlusive thrombus with loss of compressibility of the common femoral vein. Left CFV: There is a chronic nonocclusive thrombus with partial loss of compressibility. SUPERFICIAL FEMORAL VEIN: Right SFV: There is a chronic partially occlusive in the proximal SFV. The mid and distal SFV are compressible with normal flow. Left SFV: There is a chronic non occlusive thrombus in the proximal SFV. The mid and distal SFV are compressible with normal flow. POPLITEAL VEIN: Right Popliteal: Unremarkable. Left Popliteal: Unremarkable. POSTERIOR TIBIAL VEIN: Right PTV: Unremarkable. Left PTV: Unremarkable. OTHER FINDINGS: None. IMPRESSION: 1. Chronic partially occlusive thrombus in the right common femoral and proximal superficial femoral veins with loss of compressibility of veins. 2. Chronic partially occlusive thrombus in the left common femoral and proximal superficial femoral veins with partial loss of compressibility of the veins. 3. No evidence of deep venous thrombosis in the distal superficial femoral, popliteal and posterior tibial veins.
[2018-10-27 05:22] LABS: INR 1.5; PROTHROMBIN TIME 16.8 Seconds (9.8-13.1)
[2018-10-27 05:34] LABS: BASO % 0.2 % (0.0-2.0); EOS % 0.2 % (0.0-4.0); HEMOGLOBIN 8.6 g/dL (12.0-16.0); LYMPH # 0.7 K/uL (1.0-4.3); MEAN CORPUSCULAR HEMOGLOBIN 30.9 pg (27.0-31.0); MEAN CORPUSCULAR HGB CONC 32.7 g/dL (33.0-37.0); MEAN PLATELET VOLUME 10.8 fl (7.2-11.7); MONO # 0.9 K/uL (0.0-0.8); MONO % 7.8 % (0.0-10.0); NEUT # 9.5 K/uL (1.8-7.0); NEUT % 85.8 % (50.0-75.0); PLATELET COUNT 182 K/uL (130-400); RBC 2.77 Mil/uL (3.80-5.20); RED CELL DISTRIBUTION WIDTH 17.9 % (11.5-14.5)
[2018-10-27 05:44] LABS: ALB/GLOB RATIO 0.7 (1.0-2.1); ALT/SGPT 18 U/L (9-52); AST/SGOT 15 U/L (14-36); BLOOD UREA NITROGEN 63 mg/dl (7-17); CALCIUM 7.3 mg/dL (8.4-10.2); GFR NON-AFRICAN AMERICAN 51
[2018-10-27 05:46] LABS: MEAN CELL VOLUME 94.8 fl (81.0-99.0)
[2018-10-27] MEDS: Lactated Ringer's 1,000 ML IV SCH (08:53)
[2018-10-27 08:54] LABS: ANISOCYTOSIS SLIGHT; BANDS 2 % (0-2); LYMPHOCYTE 4 % (20-50); MONOCYTE 6 % (0-10); NEUTROPHIL 88 % (42-75); OVALOCYTES SLIGHT; PLATELET ESTIMATE NORMAL (NORMAL); TEARDROP CELLS SLIGHT; TOTAL CELLS COUNTED 100
[2018-10-27 08:55] LABS: LARGE PLATELETS PRESENT
[2018-10-27 08:56] LABS: HYPOCHROMIC SLIGHT
--- NOTE | 2018-10-27 10:33 | CP.PCM.PN ---
Subjective - Date & Time of Evaluation Date of Evaluation: 10/27/18 Time of Evaluation: 10:33 - Subjective Subjective: ID note- Pt. seen and examined in ICU today. remains lethargic and does not follow any commands. as per nurse hardwick was placed again today since pt. was having blood clots come out with straigh cath and was having retention. pt. still on levophed as well. Objective - Vital Signs/Intake and Output Vital Signs (last 24 hours): Temp Pulse Resp BP Pulse Ox 99.1 F 133 H 19 107/62 100 10/27/18 09:16 10/27/18 09:16 10/27/18 09:16 10/27/18 09:16 10/27/18 09:16 Intake and Output: 10/27/18 10/27/18 06:59 18:59 Intake Total 1444 300 Output Total 0 Balance 1444 300 - Medications Medications: Current Medications Famotidine (Pepcid) 20 mg IVP Q12 GLADIS Last Admin: 10/27/18 08:57 Dose: 20 mg Lactated Ringer's (Lactated Ringer's) 1,000 mls @ 50 mls/hr IV .Q20H GLADIS Last Admin: 10/27/18 08:53 Dose: 50 mls/hr Micafungin Sodium 50 mg/ (Sodium Chloride) 100 mls @ 100 mls/hr IVPB DAILY GLADIS; Protocol Last Admin: 10/27/18 08:54 Dose: 100 mls/hr Norepinephrine Bitartrate 16 (mg/ Dextrose) 266 mls @ 19.95 mls/hr IV .[id number] ONE; Protocol Stop: 10/27/18 14:50 Last Admin: 10/27/18 04:11 Dose: 20 mcg/min, 19.95 mls/hr - Labs Labs: - Additional Findings Additional findings: - Constitutional Appears: Chronically Ill Additional comments: - ENT Exam Additional comments: s/p trache - Respiratory Exam Additional comments: On the vent via Trach - Cardiovascular Exam Cardiovascular Exam: Tachycardia, +S1, +S2 - GI/Abdominal Exam Additional comments: distended hypoactive BS umbilical region with mass like lesion with denuded skin , no pus + ascites - Extremities Exam Additional comments: b/l 2+ edema in LE and UE - Neurological Exam Additional comments: lethargic Laboratory Results - last 72 hr 10/25/18 10/25/18 10/25/18 04:10 04:10 05:03 WBC 12.3 H RBC 2.85 L Hgb 8.7 L Hct 27.6 L MCV 96.8 MCH 30.4 MCHC 31.5 L RDW 18.9 H Plt Count 157 MPV Neut % (Auto) Lymph % (Auto) Patrick % (Auto) Eos % (Auto) Baso % (Auto) Neut # (Auto) Lymph # (Auto) Patrick # (Auto) Eos # (Auto) Baso # (Auto) Neutrophils % (Manual) Band Neutrophils % Lymphocytes % (Manual) Monocytes % (Manual) Platelet Estimate Large Platelets Hypochromasia (manual) Anisocytosis (manual) Tear Drop Cells Ovalocytes PT INR APTT pCO2 34 L pO2 163 H HCO3 21.4 ABG pH 7.38 ABG Total CO2 21.1 L ABG O2 Saturation 100.2 H ABG O2 Content 12.9 L ABG Base Excess -4.5 L ABG Hemoglobin 9.1 L ABG Carboxyhemoglobin 1.2 POC ABG HHb (Measured) -0.2 L ABG Methemoglobin 1.4 ABG O2 Capacity 12.9 L Frederic Test Yes ABG Potassium A-a O2 Difference 80.0 Hgb O2 Saturation 97.6 Glucose Lactate Vent Mode A/c Mechanical Rate 12 FiO2 40.0 Tidal Volume 450 PEEP 5 Sodium 136 Potassium 3.7 Chloride 105 Carbon Dioxide 20 L Anion Gap 15 BUN 68 H Creatinine 1.0 Est GFR ( Amer) > 60 Est GFR (Non-Af Amer) 57 Random Glucose 123 H Calcium 7.3 L Total Bilirubin 0.3 AST 14 ALT 19 Alkaline Phosphatase 92 Total Protein 4.8 L Albumin 2.0 L Globulin 2.7 Albumin/Globulin Ratio 0.7 L Arterial Blood Potassium 10/26/18 10/26/18 10/26/18 05:19 05:40 05:40 WBC 11.2 H RBC 3.03 L Hgb 9.4 L Hct 29.6 L MCV 97.6 MCH 31.1 H MCHC 31.8 L RDW 19.1 H Plt Count 169 MPV Neut % (Auto) Lymph % (Auto) Patrick % (Auto) Eos % (Auto) Baso % (Auto) Neut # (Auto) Lymph # (Auto) Patrick # (Auto) Eos # (Auto) Baso # (Auto) Neutrophils % (Manual) Band Neutrophils % Lymphocytes % (Manual) Monocytes % (Manual) Platelet Estimate Large Platelets Hypochromasia (manual) Anisocytosis (manual) Tear Drop Cells Ovalocytes PT INR APTT pCO2 31 L pO2 145 H HCO3 22.1 ABG pH 7.42 ABG Total CO2 21.1 L ABG O2 Saturation 100.4 H ABG O2 Content 12.7 L ABG Base Excess -3.7 L ABG Hemoglobin 9.0 L ABG Carboxyhemoglobin 1.4 POC ABG HHb (Measured) -0.4 L ABG Methemoglobin 1.2 ABG O2 Capacity 12.6 L Frederic Test Yes ABG Potassium A-a O2 Difference 66.0 Hgb O2 Saturation 97.8 Glucose Lactate Vent Mode A/c Mechanical Rate 12 FiO2 35.0 Tidal Volume 450 PEEP 5 Sodium 135 Potassium 3.9 Chloride 104 Carbon Dioxide 20 L Anion Gap 15 BUN 68 H Creatinine 0.9 Est GFR ( Amer) > 60 Est GFR (Non-Af Amer) > 60 Random Glucose 111 H Calcium 7.4 L Total Bilirubin 0.5 AST 16 ALT 19 Alkaline Phosphatase 98 Total Protein 5.0 L Albumin 2.2 L Globulin 2.9 Albumin/Globulin Ratio 0.7 L Arterial Blood Potassium 10/26/18 10/27/18 10/27/18 13:37 05:12 05:12 WBC 11.0 H RBC 2.77 L Hgb 8.6 L Hct 26.3 L MCV 94.8 D MCH 30.9 MCHC 32.7 L RDW 17.9 H Plt Count 182 MPV 10.8 Neut % (Auto) 85.8 H Lymph % (Auto) 6.0 L Patrick % (Auto) 7.8 Eos % (Auto) 0.2 Baso % (Auto) 0.2 Neut # (Auto) 9.5 H Lymph # (Auto) 0.7 L Patrick # (Auto) 0.9 H Eos # (Auto) 0.0 Baso # (Auto) 0.0 Neutrophils % (Manual) 88 H Band Neutrophils % 2 Lymphocytes % (Manual) 4 L Monocytes % (Manual) 6 Platelet Estimate Normal Large Platelets Present Hypochromasia (manual) Slight Anisocytosis (manual) Slight Tear Drop Cells Slight Ovalocytes Slight PT 16.8 H INR 1.5 APTT 29.4 pCO2 pO2 HCO3 ABG pH ABG Total CO2 ABG O2 Saturation ABG O2 Content ABG Base Excess ABG Hemoglobin ABG Carboxyhemoglobin POC ABG HHb (Measured) ABG Methemoglobin ABG O2 Capacity Frederic Test ABG Potassium A-a O2 Difference Hgb O2 Saturation Glucose Lactate Vent Mode Mechanical Rate FiO2 Tidal Volume PEEP Sodium Potassium Chloride Carbon Dioxide Anion Gap BUN Creatinine Est GFR ( Amer) Est GFR (Non-Af Amer) Random Glucose Calcium Total Bilirubin AST ALT Alkaline Phosphatase Total Protein Albumin Globulin Albumin/Globulin Ratio Arterial Blood Potassium 10/27/18 10/27/18 05:12 13:13 WBC RBC Hgb Hct MCV MCH MCHC RDW Plt Count MPV Neut % (Auto) Lymph % (Auto) Patrick % (Auto) Eos % (Auto) Baso % (Auto) Neut # (Auto) Lymph # (Auto) Patrick # (Auto) Eos # (Auto) Baso # (Auto) Neutrophils % (Manual) Band Neutrophils % Lymphocytes % (Manual) Monocytes % (Manual) Platelet Estimate Large Platelets Hypochromasia (manual) Anisocytosis (manual) Tear Drop Cells Ovalocytes PT INR APTT pCO2 30 L pO2 119 H HCO3 21.2 ABG pH 7.41 ABG Total CO2 19.9 L ABG O2 Saturation 99.6 H ABG O2 Content ABG Base Excess -4.8 L ABG Hemoglobin ABG Carboxyhemoglobin POC ABG HHb (Measured) ABG Methemoglobin ABG O2 Capacity Frederic Test Yes ABG Potassium 3.3 L A-a O2 Difference 129.0 Hgb O2 Saturation Glucose 133 H Lactate 1.9 Vent Mode Mechanical Rate FiO2 40.0 Tidal Volume PEEP Sodium 134 133.0 Potassium 3.5 L Chloride 105 107.0 Carbon Dioxide 20 L Anion Gap 13 BUN 63 H Creatinine 1.1 Est GFR ( Amer) > 60 Est GFR (Non-Af Amer) 51 Random Glucose 113 H Calcium 7.3 L Total Bilirubin 0.2 AST 15 ALT 18 Alkaline Phosphatase 98 Total Protein 4.9 L Albumin 2.0 L Globulin 2.9 Albumin/Globulin Ratio 0.7 L Arterial Blood Potassium 3.3 L Microbiology 10/21/18 08:00 Urine,Catheterized Urine Culture - Final Catrachito Lipolytica 10/18/18 11:55 Blood-Thru Central Line Blood Culture - Final NO GROWTH AFTER 5 DAYS 10/18/18 11:55 Blood-Thru Central Line Gram Stain - Final TEST NOT PERFORMED 10/05/18 06:15 Blood Blood Culture - Final NO GROWTH AFTER 5 DAYS 10/05/18 06:15 Blood Gram Stain - Final TEST NOT PERFORMED 10/05/18 06:30 Blood Blood Culture - Final NO GROWTH AFTER 5 DAYS 10/05/18 06:30 Blood Gram Stain - Final TEST NOT PERFORMED 10/05/18 07:10 Urine,Hardwick Urine Culture - Final Yeast Species 09/25/18 12:10 Blood-Thru Central Line Blood Culture - Final NO GROWTH AFTER 5 DAYS 09/25/18 12:10 Blood-Thru Central Line Gram Stain - Final TEST NOT PERFORMED 09/20/18 14:00 Blood-Thru Central Line Blood Culture - Final NO GROWTH AFTER 5 DAYS 09/20/18 17:53 Trachasp Gram Stain - Final 09/20/18 17:53 Trachasp Sputum Culture - Final Yeast Species 09/20/18 17:53 Urine,Hardwick Urine Culture - Final No Growth (<1,000 CFU/ML) 09/15/18 15:35 Blood-Thru Central Line Blood Culture - Final NO GROWTH AFTER 5 DAYS 09/15/18 15:35 Blood-Thru Central Line Gram Stain - Final TEST NOT PERFORMED 09/15/18 15:25 Blood-Thru Central Line Blood Culture - Final NO GROWTH AFTER 5 DAYS 09/15/18 15:25 Blood-Thru Central Line Gram Stain - Final TEST NOT PERFORMED 09/08/18 11:49 Blood-Venous Blood Culture - Final NO GROWTH AFTER 5 DAYS 09/08/18 11:49 Blood-Venous Gram Stain - Final TEST NOT PERFORMED 09/08/18 11:49 Blood-Venous Blood Culture - Final NO GROWTH AFTER 5 DAYS 09/08/18 11:49 Blood-Venous Gram Stain - Final TEST NOT PERFORMED 09/07/18 Unknown Blood-Thru Central Line Blood Culture - Final NO GROWTH AFTER 5 DAYS 09/07/18 Unknown Blood-Thru Central Line Gram Stain - Final TEST NOT PERFORMED 09/07/18 Unknown Blood-Thru Central Line Blood Culture - Final NO GROWTH AFTER 5 DAYS 09/07/18 Unknown Blood-Thru Central Line Gram Stain - Final TEST NOT PERFORMED 09/07/18 09:07 Trachasp Gram Stain - Final 09/07/18 09:07 Trachasp Sputum Culture - Final Yeast Species 09/04/18 11:25 Naris MRSA Culture (Admit) - Final MRSA NOT DETECTED Accession No. : [id number] Patient Name / ID : RYLEE ONEIL / [id number] Exam Date : 10/27/2018 04:30:48 ( Approved ) Study Comment : Sex / Age : F / 58Y Creator : Syed Avalos MD Dictator : Syed Avalos MD Barker Peeler : Buckle Attaching Machine Operator : Syed Avalos MD Approver2 : Report Date : 10/27/2018 11:05:23 My Comment : Date of service: 10/27/2018 HISTORY: protocol COMPARISON: Portable chest 10/26/2018. TECHNIQUE: 1 view obtained. FINDINGS: LUNGS: Tracheostomy and nasogastric tubes do not appear significantly changed in the interval with MediPort unchanged as well. Increased opacity seen at the mid to inferior left lung zone representing combination of moderate left pleural effusion and probable underlying atelectasis though infiltrate is not excluded at the left base and perihilar region in the interval. Borderline patchy atelectasis right base. No right pleural effusion. No pneumothorax bilaterally. PLEURA: As above. CARDIOVASCULAR: No aortic atherosclerotic calcification present. Normal cardiac size. No pulmonary vascular congestion. OSSEOUS STRUCTURES: No significant abnormalities. VISUALIZED UPPER ABDOMEN: Normal. OTHER FINDINGS: None. IMPRESSION: Trace left-sided pulmonary opacity reflecting moderate sized pleural effusion and underlying atelectasis at the left perihilar and basilar distributions though infiltrate is not excluded. Developing early atelectasis suggested right base. No pulmonary vascular congestion. 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 remains on the vent remains on levophed low grade fever today. leukocytosis much lower. blood cx- neg x 11 trach asp cx- yeast ( treated) stool c.diff- negative repeat UA- negative repeat urine cx- yeast ( treated) hardwick removed 4 days ago repeat urine cx - yeast finally ID as catrachito lipolytica ( hardwick was removed a week ago). cxr today once gain left pleural effusion. PLan- 7 days ago d/c all empiric antibiotics as pt. has been on them for 38 days so far and all cx negative except yeast in sputum and urine cx which has been treated with 34 days of IV diflucan. completed total 25 days of IV vanco today. completed 38 days of Iv meropnem today. completed 34 days of IV diflucan. continue with micafungin day #2 for Catrachito lypolytica in urine cx. new hardwick placed today. all labs and imaging and chart notes reviewed. critical care time spent 30 min. prognosis poor. All above d/w ICU team in detail.
--- NOTE | 2018-10-27 11:11 | RAD ---
Date of service: 10/27/2018 HISTORY: protocol COMPARISON: Portable chest 10/26/2018. TECHNIQUE: 1 view obtained. FINDINGS: LUNGS: Tracheostomy and nasogastric tubes do not appear significantly changed in the interval with MediPort unchanged as well. Increased opacity seen at the mid to inferior left lung zone representing combination of moderate left pleural effusion and probable underlying atelectasis though infiltrate is not excluded at the left base and perihilar region in the interval. Borderline patchy atelectasis right base. No right pleural effusion. No pneumothorax bilaterally. PLEURA: As above. CARDIOVASCULAR: No aortic atherosclerotic calcification present. Normal cardiac size. No pulmonary vascular congestion. OSSEOUS STRUCTURES: No significant abnormalities. VISUALIZED UPPER ABDOMEN: Normal. OTHER FINDINGS: None. IMPRESSION: Trace left-sided pulmonary opacity reflecting moderate sized pleural effusion and underlying atelectasis at the left perihilar and basilar distributions though infiltrate is not excluded. Developing early atelectasis suggested right base. No pulmonary vascular congestion.
[2018-10-27 13:27] LABS: ABG ALLEN TEST YES; ARTERIAL BLOOD GAS HCO3 21.2 mmol/L (21-28); ARTERIAL BLOOD GAS O2 SAT 99.6 % (95-98); ARTERIAL BLOOD GAS PCO2 30 mm/Hg (35-45); ARTERIAL BLOOD GAS PH 7.41 (7.35-7.45); ARTERIAL BLOOD GAS PO2 119 mm/Hg (80-100); ARTERIAL BLOOD GAS TCO2 19.9 mmol/L (22-28)
[2018-10-27] MEDS ORDERED: Potassium Chloride 20 mEq/15 ml LIQ UD NG ONE (13:39)
--- NOTE | 2018-10-27 13:44 | CP.CCUPN ---
CCU Subjective - Physician Review Subjective (Free Text): Unable to straight cath overnight with no urine output, repeated attempts this AM and successful drainage of approx. 500ml urine with blood clots. She tolerated CPAP PS yesterday afternoon, prompting placement onto 40% trach collar. No distress noted overnight on trach collar, RR = 22, no hypoxemia, nor tachypnea. CXR this morning is markedly different from yesterdays film. She remains tachycardic at 135 /min with sinus mechanism. SBPs have been above 100. Tmax yesterday was 100.9F and temps remain 99-100F. She is 2.5 L positive fluid balance. ROS: No other pertinent negs or positive on 10+ system review obtainable due to lethargic status Other PMSFH: All other Nursing and physician documentation reviewed to date; no new pertinent info noted relevant to current medical problems. EXAM- HEENT: no icterus, pupils equal, 3 mm and reactive, no gaze preference, opens eyes briefly to pain, but no sustained wakeful state NECK: no visible JVD, supple, carotids equal upstroke bilat/no bruits, trach stoma intact CHEST: decreased BS bases, no wheezes audible, bloody fluid drained dressing over R breast. Left chest portacath. HEART: regular, distant, tachy S1S2, no murmur audible, no rubs. ABD: soft, ++distention with ascites, no focal tenderness, BS hypoactive, dried necrotic lesion over umbilicus unchanged. Previous paracentesis puncture site still leaking ascitic fluid. EXT: + anasarca / edema UEs and LEs, no calf tenderness or palpable cords, distal pulses intact and symmetrical NEURO: withdraws to pain stimuli, + tone SKIN: no rashes LABS: WBC= 11.0 HGB= 8.6 PLTs = 182K INR = 1.5 Na= 134 K= 3.5 Cl= 105 HCO3= 20 BUN/Cr= 63/1.1 BS= 113 CXR: (my interp)- Trach tube within tracheal air column. Marked return of Left lung haziness and atelectasis as compared to yesterdays film. IMPRESSION / MAJOR PROBLEMS NOW: 1. Acute hypoxemic Resp Failure, 2 bilat multi-lobar pneumonia/ Effusion 2. Persistent vaginal Bleeding 3. Severe Sepsis with shock, 2 Pneumonia, r/o bacteremia 4. Acute on Chronic disease Anemia 5. h/o DVT- bilat CFV on Aug 5. 6. s/p Paracentesis Aug 5 for 2.5 liters, and repeated Sep 7 for 3.6 liters. PLAN: 1. Check ABG, if oxygenation or PCO2 is worse than yesterday, coincident with todays CXR findings, will place back on MV. 2. Consider re-trial with Midodrine, watch for any allergic symptoms: in attempt to help with tapering off of Levophed. Check Lactate level. 3. Repeat blood Cxs ordered, including blood cx from left chest port-a-cath. Obtain straight cath urine sample for culture as well. 4. Supplement K. 5. Venous Doppler legs show bilat CFV thrombi. Therapeutic Anticoagulation and chemoprophylaxis for DVT has remained problematic with ongoing bleeding from tract / uterus, but there is a low level state of auto-anticoagulation as well. Family is unaware of any IVC filter ever placed, and lower abdom-pelvic imaging done during last 2 hospital admissions showed no IVCF.
--- NOTE | 2018-10-27 14:21 | CP.PCM.PN ---
Subjective - Date & Time of Evaluation Date of Evaluation: 10/27/18 Time of Evaluation: 14:00 - Subjective Subjective: SEEN IN ICU ON RENAL F/U ALL PREVIOUS EMR REVIEWED LABS REVIEWED RENAL FUNCTION AND ELECTROLYTES NUCH BETTER STILL WITH PRE RENAL AZOTEMIA .. BUT BETTER Unable to straight cath overnight with no urine output, repeated attempts this AM and successful drainage of approx. 500ml urine with blood clots. She tolerated CPAP PS yesterday afternoon, prompting placement onto 40% trach collar. No distress noted overnight on trach collar, RR = 22, no hypoxemia, nor tachypnea. CXR this morning is markedly different from yesterdays film. She remains tachycardic at 135 /min with sinus mechanism. SBPs have been above 100. Tmax yesterday was 100.9F and temps remain 99-100F. She is 2.5 L positive fluid balance. Objective - Vital Signs/Intake and Output Vital Signs (last 24 hours): Temp Pulse Resp BP Pulse Ox 99.6 F 135 H 23 101/65 100 10/27/18 12:00 10/27/18 14:00 10/27/18 14:00 10/27/18 14:00 10/27/18 14:00 Intake and Output: 10/27/18 10/27/18 06:59 18:59 Intake Total 1444 366 Output Total 0 Balance 1444 366 - Medications Medications: Current Medications Famotidine (Pepcid) 20 mg IVP Q12 GLADIS Last Admin: 10/27/18 08:57 Dose: 20 mg Lactated Ringer's (Lactated Ringer's) 1,000 mls @ 50 mls/hr IV .Q20H GLADIS Last Admin: 10/27/18 08:53 Dose: 50 mls/hr Micafungin Sodium 50 mg/ (Sodium Chloride) 100 mls @ 100 mls/hr IVPB DAILY [facility]; Protocol Last Admin: 10/27/18 08:54 Dose: 100 mls/hr Norepinephrine Bitartrate 16 (mg/ Dextrose) 266 mls @ 19.95 mls/hr IV .[id number] ONE; Protocol Stop: 10/27/18 14:50 Last Titration: 10/27/18 12:17 Dose: 15.03 mcg/min, 15 mls/hr - Labs Labs: 10/27/18 05:12 10/27/18 05:12 PT 16.8 Seconds (9.8-13.1) H 10/27/18 05:12 INR 1.5 10/27/18 05:12 APTT 29.4 Seconds (25.6-37.1) 10/26/18 13:37 Assessment and Plan - Assessment and Plan (Free Text) Assessment: amanda .. pre renal azotemia .. better electrolytes better vdrf mmp p : c/o present care c/o current management
--- NOTE | 2018-10-27 21:35 | CP.PCM.PN ---
Subjective - Date & Time of Evaluation Date of Evaluation: 10/27/18 Time of Evaluation: 09:50 - Subjective Subjective: no overnight events Objective - Vital Signs/Intake and Output Vital Signs (last 24 hours): Temp Pulse Resp BP Pulse Ox 100.8 F H 136 H 22 97/62 L 100 10/27/18 20:00 10/27/18 20:00 10/27/18 20:00 10/27/18 20:00 10/27/18 20:00 Intake and Output: 10/27/18 10/28/18 18:59 06:59 Intake Total 1886 170 Output Total 900 Balance 986 170 - Medications Medications: Current Medications Famotidine (Pepcid) 20 mg IVP Q12 GLADIS Last Admin: 10/27/18 20:32 Dose: 20 mg Lactated Ringer's (Lactated Ringer's) 1,000 mls @ 50 mls/hr IV .Q20H GLADIS Last Admin: 10/27/18 08:53 Dose: 50 mls/hr Micafungin Sodium 50 mg/ (Sodium Chloride) 100 mls @ 100 mls/hr IVPB DAILY GLADIS; Protocol Last Admin: 10/27/18 08:54 Dose: 100 mls/hr Norepinephrine Bitartrate 16 (mg/ Dextrose) 266 mls @ 14.96 mls/hr IV .[id number] ONE; Protocol Stop: 10/28/18 14:42 - Labs Labs: 10/27/18 05:12 10/27/18 05:12 PT 16.8 Seconds (9.8-13.1) H 10/27/18 05:12 INR 1.5 10/27/18 05:12 APTT 29.4 Seconds (25.6-37.1) 10/26/18 13:37 - Head Exam Head Exam: NORMOCEPHALIC - Respiratory Exam Respiratory Exam: Rhonchi - Cardiovascular Exam Cardiovascular Exam: REGULAR RHYTHM - GI/Abdominal Exam GI & Abdominal Exam: Soft, Normal Bowel Sounds Assessment and Plan - Assessment and Plan (Free Text) Assessment: 58 yo female with terminal cancer will plan for peg once ascites better controlled
--- NOTE | 2018-10-28 00:55 | CP.PCM.PN ---
Subjective - Date & Time of Evaluation Date of Evaluation: 10/27/18 Time of Evaluation: 19:10 - Subjective Subjective: Seen and examined at the bedside. Mother at the bedside. Patient is on Levophed and maxed out 30mcg/min. Patient is on mechanical ventilation via T- tube. Objective - Vital Signs/Intake and Output Vital Signs (last 24 hours): Temp Pulse Resp BP Pulse Ox 100.8 F H 136 H 22 97/62 L 100 10/27/18 20:00 10/27/18 20:00 10/27/18 20:00 10/27/18 20:00 10/27/18 20:00 Intake and Output: 10/27/18 10/28/18 18:59 06:59 Intake Total 1886 170 Output Total 900 Balance 986 170 - Medications Medications: Current Medications Famotidine (Pepcid) 20 mg IVP Q12 GLADIS Last Admin: 10/27/18 20:32 Dose: 20 mg Lactated Ringer's (Lactated Ringer's) 1,000 mls @ 50 mls/hr IV .Q20H GLADIS Last Admin: 10/27/18 08:53 Dose: 50 mls/hr Micafungin Sodium 50 mg/ (Sodium Chloride) 100 mls @ 100 mls/hr IVPB DAILY GLADIS; Protocol Last Admin: 10/27/18 08:54 Dose: 100 mls/hr Norepinephrine Bitartrate 16 (mg/ Dextrose) 266 mls @ 14.96 mls/hr IV .[id number] ONE; Protocol Stop: 10/28/18 14:42 - Labs Labs: 10/27/18 05:12 10/27/18 05:12 PT 16.8 Seconds (9.8-13.1) H 10/27/18 05:12 INR 1.5 10/27/18 05:12 APTT 29.4 Seconds (25.6-37.1) 10/26/18 13:37 Assessment and Plan (1) Anasarca Status: Acute (2) Septic shock Status: Resolved (3) Multiple organ dysfunction syndrome Status: Acute (4) Acute respiratory failure with hypoxemia Status: Acute (5) Thrombocytopenia Status: Resolved (6) Ascites, malignant Status: Acute (7) Congestive heart failure (CHF) Status: Acute (8) Stage IV breast cancer in female Status: Acute (9) Severe anemia Status: Resolved (10) DVT of lower extremity, bilateral Status: Chronic - Assessment and Plan (Free Text) Plan: Continue current care poor prognosis Will need g-tube when stable.
--- NOTE | 2018-10-28 00:55 | CP.PCM.PN ---
Subjective - Date & Time of Evaluation Date of Evaluation: 10/26/18 Time of Evaluation: 17:30 - Subjective Subjective: Seen and examined at the bedside. Patient continued to be intubated on mechanical ventilation. GI on board and planning to do PEG tube so that patient can be discharged to LTAC (long-term acute facility). Patient will need thoracentesis and paracentesis before the procedure. Poor prognosis. Objective - Vital Signs/Intake and Output Vital Signs (last 24 hours): Temp Pulse Resp BP Pulse Ox 100.8 F H 136 H 22 97/62 L 100 10/27/18 20:00 10/27/18 20:00 10/27/18 20:00 10/27/18 20:00 10/27/18 20:00 Intake and Output: 10/27/18 10/28/18 18:59 06:59 Intake Total 1886 170 Output Total 900 Balance 986 170 - Medications Medications: Current Medications Famotidine (Pepcid) 20 mg IVP Q12 GLADIS Last Admin: 10/27/18 20:32 Dose: 20 mg Lactated Ringer's (Lactated Ringer's) 1,000 mls @ 50 mls/hr IV .Q20H GLADIS Last Admin: 10/27/18 08:53 Dose: 50 mls/hr Micafungin Sodium 50 mg/ (Sodium Chloride) 100 mls @ 100 mls/hr IVPB DAILY [facility]; Protocol Last Admin: 10/27/18 08:54 Dose: 100 mls/hr Norepinephrine Bitartrate 16 (mg/ Dextrose) 266 mls @ 14.96 mls/hr IV .[id number] ONE; Protocol Stop: 10/28/18 14:42 - Labs Labs: 10/27/18 05:12 10/27/18 05:12 PT 16.8 Seconds (9.8-13.1) H 10/27/18 05:12 INR 1.5 10/27/18 05:12 APTT 29.4 Seconds (25.6-37.1) 10/26/18 13:37 Assessment and Plan (1) Anasarca Status: Acute (2) Septic shock Status: Resolved (3) Multiple organ dysfunction syndrome Status: Acute (4) Acute respiratory failure with hypoxemia Status: Acute (5) Thrombocytopenia Status: Resolved (6) Ascites, malignant Status: Acute (7) Congestive heart failure (CHF) Status: Acute (8) Stage IV breast cancer in female Status: Acute (9) Severe anemia Status: Resolved (10) DVT of lower extremity, bilateral Status: Chronic
[2018-10-28 04:49] LABS: ABG ALLEN TEST YES; ARTERIAL BLOOD GAS HCO3 20.3 mmol/L (21-28); ARTERIAL BLOOD GAS HEMOGLOBIN 9.2 g/dL (11.7-17.4); ARTERIAL BLOOD GAS O2 CAPACITY 12.9 mL/dL (16-24); ARTERIAL BLOOD GAS O2 CONTENT 12.9 ML/dL (15-23); ARTERIAL BLOOD GAS O2 SAT 100.3 % (95-98); ARTERIAL BLOOD GAS PCO2 21 mm/Hg (35-45); ARTERIAL BLOOD GAS PH 7.49 (7.35-7.45); ARTERIAL BLOOD GAS PO2 149 mm/Hg (80-100); ARTERIAL BLOOD GAS TCO2 16.6 mmol/L (22-28)
[2018-10-28 07:51] LABS: BASO % 0.1 % (0.0-2.0); HEMOGLOBIN 8.6 g/dL (12.0-16.0); LYMPH # 0.6 K/uL (1.0-4.3); MEAN CELL VOLUME 96.2 fl (81.0-99.0); MEAN CORPUSCULAR HEMOGLOBIN 30.7 pg (27.0-31.0); MEAN PLATELET VOLUME 10.7 fl (7.2-11.7); MONO # 0.8 K/uL (0.0-0.8); MONO % 5.9 % (0.0-10.0); NEUT # 11.3 K/uL (1.8-7.0); NRBC % 0.1 % (0.0-0.0); RBC 2.8 Mil/uL (3.80-5.20); RED CELL DISTRIBUTION WIDTH 18.4 % (11.5-14.5); WHITE BLOOD COUNT 12.7 K/uL (4.8-10.8)
[2018-10-28 08:12] LABS: BLOOD UREA NITROGEN 61 mg/dl (7-17); CALCIUM 7.2 mg/dL (8.4-10.2); GFR NON-AFRICAN AMERICAN > 60
[2018-10-28] MEDS: Lactated Ringer's 1,000 ML IV SCH (08:13)
--- NOTE | 2018-10-28 08:32 | RAD ---
Date of service: 10/28/2018 HISTORY: trach COMPARISON: Portable chest 10/27/2018. TECHNIQUE: 1 view obtained. FINDINGS: LUNGS: Endotracheal tube and left MediPort unchanged in position as well as orogastric tube. No interval change in mild right pleural effusion appreciated, with left pleural effusion reduced. Underlying atelectasis or infiltrates not excluded once again at the left greater than right bases. No pneumothorax bilaterally. PLEURA: As above. CARDIOVASCULAR: No aortic atherosclerotic calcification present. Normal cardiac size. No pulmonary vascular congestion. OSSEOUS STRUCTURES: No significant abnormalities. VISUALIZED UPPER ABDOMEN: Normal. OTHER FINDINGS: None. IMPRESSION: Diminished left pleural effusion. Underlying atelectasis or infiltrate remains question the left greater than right lung bases with mild right pleural effusion unchanged.
--- NOTE | 2018-10-28 08:40 | CP.CCUPN ---
CCU Subjective - Physician Review Events Since Last Encounter (Free Text): Patient on ventilator through tracheostomy, no fever, no vomiting, no response to verbal stimuli CCU Objective - Vital Signs / Intake & Output Vital Signs (Last 4 hours): Vital Signs Temp Pulse Resp BP Pulse Ox 10/28/18 08:00 99.1 F 121 H 18 120/67 100 10/28/18 07:00 99.1 F 126 H 20 116/59 L 100 10/28/18 06:00 99.1 F 126 H 20 112/72 100 10/28/18 05:00 99.9 F H 131 H 19 111/74 100 Intake and Output (Last 8hrs): Intake & Output 10/27/18 10/28/18 10/28/18 22:59 06:59 14:59 Intake Total 1860 1280 185 Output Total 900 600 25 Balance 960 680 160 Weight 151 lb 9.6 oz Intake: IV 1000 400 50 Intake, Piggyback 100 Tube Feeding 560 280 35 Free Water Flush 300 600 Output: Urine 900 600 25 Urethral (Orellana) 900 600 25 - Physical Exam Head: Positive for: Atraumatic, Normocephalic Pupils: Positive for: PERRL Conjunctiva: Negative for: Injected, Icteric Ears: Positive for: Normal Mouth: Positive for: Moist Mucous Membranes Nose (Internal): Positive for: Normal Inspection Neck: Positive for: Normal Range of Motion, Trachea Midline, Other (tracheostomy) Respiratory/Chest: Positive for: Good Air Exchange, Rales, Retracting, Rhonchi. Negative for: Accessory Muscle Use, Wheezes, Tachypneic Cardiovascular: Positive for: Regular Rate and Rhythm, Normal S1, S2, Peripheal Pulses Present. Negative for: Murmurs, Irregular Rhythm, Tachycardic, Bradycardic Abdomen: Positive for: Normal Bowel Sounds Breast/Axillary: Positive for: Other (fungating necrotic mass to Right Breast) Upper Extremity: Positive for: Edema, NORMAL PULSES Lower Extremity: Positive for: Edema, NORMAL PULSES. Negative for: Normal Inspection Neurological: Positive for: Other (on ventilator, opens eyes to verbal stimuli) Psychiatric: Negative for: Alert - Medications Active Medications: Active Medications Generic Name Dose Route Start Last Admin Trade Name Freq PRN Reason Stop Dose Admin Famotidine 20 mg 10/25/18 21:00 04/06/19 08:16 Pepcid IVP 20 mg Q12 GLADIS Administration Lactated Ringer's 1,000 mls @ 50 mls/hr 10/26/18 12:45 10/28/18 08:13 Lactated Ringer's IV 50 mls/hr .Q20H GLADIS Administration Micafungin Sodium 50 mg/ 100 mls @ 100 mls/hr 10/27/18 09:00 10/28/18 08:16 Sodium Chloride IVPB 100 mls/hr DAILY GLADIS Administration Protocol Norepinephrine Bitartrate 16 266 mls @ 14.96 mls/hr 10/27/18 20:56 10/28/18 01:17 mg/ Dextrose IV 10/28/18 14:42 15 mcg/min .[id number] ONE 14.96 mls/hr Administration Protocol 15 MCG/MIN - Patient Studies Lab Studies: Microbiology Studies 10/26/18 18:20 Blood Culture - Preliminary Blood-Thru Central Line NO GROWTH AFTER 24 HOURS Lab Studies 10/28/18 10/28/18 10/28/18 Range/Units 06:00 04:46 04:39 WBC 12.7 H (4.8-10.8) K/uL RBC 2.80 L (3.80-5.20) Mil/uL Hgb 8.6 L (12.0-16.0) g/dL Hct 26.9 L (34.0-47.0) % MCV 96.2 (81.0-99.0) fl MCH 30.7 (27.0-31.0) pg MCHC 32.0 L (33.0-37.0) g/dL RDW 18.4 H (11.5-14.5) % Plt Count 178 (130-400) K/uL MPV 10.7 (7.2-11.7) fl Neut % (Auto) 89.0 H (50.0-75.0) % Lymph % (Auto) 5.0 L (20.0-40.0) % Bath % (Auto) 5.9 (0.0-10.0) % Eos % (Auto) 0.0 (0.0-4.0) % Baso % (Auto) 0.1 (0.0-2.0) % Neut # (Auto) 11.3 H (1.8-7.0) K/uL Lymph # (Auto) 0.6 L (1.0-4.3) K/uL [place] # (Auto) 0.8 (0.0-0.8) K/uL Eos # (Auto) 0.0 (0.0-0.7) K/uL Baso # (Auto) 0.0 (0.0-0.2) K/uL Neutrophils % (Manual) (42-75) % Band Neutrophils % (0-2) % Lymphocytes % (Manual) (20-50) % Monocytes % (Manual) (0-10) % Platelet Estimate (NORMAL) Large Platelets Hypochromasia (manual) Anisocytosis (manual) Tear Drop Cells Ovalocytes pCO2 21 L (35-45) mm/Hg pO2 149 H (80-100) mm/Hg HCO3 20.3 L (21-28) mmol/L ABG pH 7.49 H (7.35-7.45) ABG Total CO2 16.6 L (22-28) mmol/L ABG O2 Saturation 100.3 H (95-98) % ABG O2 Content 12.9 L (15-23) ML/dL ABG Base Excess -6.0 L (-2.0-3.0) mmol/L ABG Hemoglobin 9.2 L (11.7-17.4) g/dL ABG Carboxyhemoglobin 1.5 (0.5-1.5) % POC ABG HHb (Measured) -0.3 L (0.0-5.0) % ABG Methemoglobin 1.6 (0.0-3.0) % ABG O2 Capacity 12.9 L (16-24) mL/dL Frederic Test Yes ABG Potassium (3.6-5.2) mmol/L A-a O2 Difference 74.0 mm/Hg Hgb O2 Saturation 97.3 (95.0-98.0) % Sodium 134 (132-148) mmol/L Chloride 105 (98-107) mmol/L Glucose (65-105) mg/dL Lactate (0.7-2.1) mmol/L Vent Mode A/c Mechanical Rate 12 FiO2 35.0 % Tidal Volume 450 PEEP 5 Potassium 3.6 (3.6-5.0) MMOL/L Carbon Dioxide 19 L (22-30) mmol/L Anion Gap 14 (10-20) BUN 61 H (7-17) mg/dl Creatinine 0.9 (0.7-1.2) mg/dl Est GFR ( Amer) > 60 Est GFR (Non-Af Amer) > 60 Random Glucose 131 H (65-105) mg/dL Calcium 7.2 L (8.4-10.2) mg/dL Arterial Blood Potassium (3.6-5.2) mmol/L 10/27/18 10/27/18 Range/Units 13:13 05:12 WBC (4.8-10.8) K/uL RBC (3.80-5.20) Mil/uL Hgb (12.0-16.0) g/dL Hct (34.0-47.0) % MCV (81.0-99.0) fl MCH (27.0-31.0) pg MCHC (33.0-37.0) g/dL RDW (11.5-14.5) % Plt Count (130-400) K/uL MPV (7.2-11.7) fl Neut % (Auto) (50.0-75.0) % Lymph % (Auto) (20.0-40.0) % [place] % (Auto) (0.0-10.0) % Eos % (Auto) (0.0-4.0) % Baso % (Auto) (0.0-2.0) % Neut # (Auto) (1.8-7.0) K/uL Lymph # (Auto) (1.0-4.3) K/uL [place] # (Auto) (0.0-0.8) K/uL Eos # (Auto) (0.0-0.7) K/uL Baso # (Auto) (0.0-0.2) K/uL Neutrophils % (Manual) 88 H (42-75) % Band Neutrophils % 2 (0-2) % Lymphocytes % (Manual) 4 L (20-50) % Monocytes % (Manual) 6 (0-10) % Platelet Estimate Normal (NORMAL) Large Platelets Present Hypochromasia (manual) Slight Anisocytosis (manual) Slight Tear Drop Cells Slight Ovalocytes Slight pCO2 30 L (35-45) mm/Hg pO2 119 H (80-100) mm/Hg HCO3 21.2 (21-28) mmol/L ABG pH 7.41 (7.35-7.45) ABG Total CO2 19.9 L (22-28) mmol/L ABG O2 Saturation 99.6 H (95-98) % ABG O2 Content (15-23) ML/dL ABG Base Excess -4.8 L (-2.0-3.0) mmol/L ABG Hemoglobin (11.7-17.4) g/dL ABG Carboxyhemoglobin (0.5-1.5) % POC ABG HHb (Measured) (0.0-5.0) % ABG Methemoglobin (0.0-3.0) % ABG O2 Capacity (16-24) mL/dL Frederic Test Yes ABG Potassium 3.3 L (3.6-5.2) mmol/L A-a O2 Difference 129.0 mm/Hg Hgb O2 Saturation (95.0-98.0) % Sodium 133.0 (132-148) mmol/L Chloride 107.0 (98-107) mmol/L Glucose 133 H (65-105) mg/dL Lactate 1.9 (0.7-2.1) mmol/L Vent Mode Mechanical Rate FiO2 40.0 % Tidal Volume PEEP Potassium (3.6-5.0) MMOL/L Carbon Dioxide (22-30) mmol/L Anion Gap (10-20) BUN (7-17) mg/dl Creatinine (0.7-1.2) mg/dl Est GFR ( Amer) Est GFR (Non-Af Amer) Random Glucose (65-105) mg/dL Calcium (8.4-10.2) mg/dL Arterial Blood Potassium 3.3 L (3.6-5.2) mmol/L Laboratory Results - last 24 hr 10/27/18 10/27/18 10/28/18 05:12 13:13 04:39 WBC RBC Hgb Hct MCV MCH MCHC RDW Plt Count MPV Neut % (Auto) Lymph % (Auto) [place] % (Auto) Eos % (Auto) Baso % (Auto) Neut # (Auto) Lymph # (Auto) [place] # (Auto) Eos # (Auto) Baso # (Auto) Neutrophils % (Manual) 88 H Band Neutrophils % 2 Lymphocytes % (Manual) 4 L Monocytes % (Manual) 6 Platelet Estimate Normal Large Platelets Present Hypochromasia (manual) Slight Anisocytosis (manual) Slight Tear Drop Cells Slight Ovalocytes Slight pCO2 30 L pO2 119 H HCO3 21.2 ABG pH 7.41 ABG Total CO2 19.9 L ABG O2 Saturation 99.6 H ABG O2 Content ABG Base Excess -4.8 L ABG Hemoglobin ABG Carboxyhemoglobin POC ABG HHb (Measured) ABG Methemoglobin ABG O2 Capacity Frederci Test Yes ABG Potassium 3.3 L A-a O2 Difference 129.0 Hgb O2 Saturation Sodium 133.0 134 Chloride 107.0 105 Glucose 133 H Lactate 1.9 Vent Mode Mechanical Rate FiO2 40.0 Tidal Volume PEEP Potassium 3.6 Carbon Dioxide 19 L Anion Gap 14 BUN 61 H Creatinine 0.9 Est GFR ( Amer) > 60 Est GFR (Non-Af Amer) > 60 Random Glucose 131 H Calcium 7.2 L Arterial Blood Potassium 3.3 L 10/28/18 10/28/18 04:46 06:00 WBC 12.7 H RBC 2.80 L Hgb 8.6 L Hct 26.9 L MCV 96.2 MCH 30.7 MCHC 32.0 L RDW 18.4 H Plt Count 178 MPV 10.7 Neut % (Auto) 89.0 H Lymph % (Auto) 5.0 L [place] % (Auto) 5.9 Eos % (Auto) 0.0 Baso % (Auto) 0.1 Neut # (Auto) 11.3 H Lymph # (Auto) 0.6 L [place] # (Auto) 0.8 Eos # (Auto) 0.0 Baso # (Auto) 0.0 Neutrophils % (Manual) Band Neutrophils % Lymphocytes % (Manual) Monocytes % (Manual) Platelet Estimate Large Platelets Hypochromasia (manual) Anisocytosis (manual) Tear Drop Cells Ovalocytes pCO2 21 L pO2 149 H HCO3 20.3 L ABG pH 7.49 H ABG Total CO2 16.6 L ABG O2 Saturation 100.3 H ABG O2 Content 12.9 L ABG Base Excess -6.0 L ABG Hemoglobin 9.2 L ABG Carboxyhemoglobin 1.5 POC ABG HHb (Measured) -0.3 L ABG Methemoglobin 1.6 ABG O2 Capacity 12.9 L Frederic Test Yes ABG Potassium A-a O2 Difference 74.0 Hgb O2 Saturation 97.3 Sodium Chloride Glucose Lactate Vent Mode A/c Mechanical Rate 12 FiO2 35.0 Tidal Volume 450 PEEP 5 Potassium Carbon Dioxide Anion Gap BUN Creatinine Est GFR ( Amer) Est GFR (Non-Af Amer) Random Glucose Calcium Arterial Blood Potassium Radiology Impressions: Radiology Impressions Chest X-Ray 10/27/18 04:30 IMPRESSION: Trace left-sided pulmonary opacity reflecting moderate sized pleural effusion and underlying atelectasis at the left perihilar and basilar distributions though infiltrate is not excluded. Developing early atelectasis suggested right base. No pulmonary vascular congestion. Chest X-Ray 10/28/18 06:00 IMPRESSION: Diminished left pleural effusion. Underlying atelectasis or infiltrate remains question the left greater than right lung bases with mild right pleural effusion unchanged. Critical Care Progress Note - Nutrition Nutrition: Nutrition Category Date Time Status NPO Diet [DIET] Diets 10/03/18 Breakfast Active Assessment/Plan - Assessment and Plan (Free Text) Assessment: Respiratory failure, pneumonia, severe sepsis, metastatic breast ca, anemia, h/o DVT, s/p pancreatitis, vaginal bleeding, malignant ascietis - Ventilatory support - Pulmonary toilets - Continue meds - OG tube feeding - Extremely Poor prognosis
--- NOTE | 2018-10-28 17:41 | CP.PCM.PN ---
Subjective - Date & Time of Evaluation Date of Evaluation: 10/28/18 Time of Evaluation: 16:00 - Subjective Subjective: SEEN ON RENAL F/U IN ICU NO CHANGE IN CLINICAL CONDITIONS ALL PREVIOUS EMR REVIEWED RENAL FUNCTION MUCH BETTER .. STILL WITH PRE RENAL PICTURE LYTES ABN .. ACCEPTABLE Objective - Vital Signs/Intake and Output Vital Signs (last 24 hours): Temp Pulse Resp BP Pulse Ox 100.4 F H 128 H 19 96/61 L 100 10/28/18 16:00 10/28/18 16:00 10/28/18 16:00 10/28/18 16:00 10/28/18 16:00 Intake and Output: 10/28/18 10/28/18 06:59 18:59 Intake Total 1620 995 Output Total 600 260 Balance 1020 735 - Medications Medications: Current Medications Famotidine (Pepcid) 20 mg IVP Q12 GLADIS Last Admin: 10/28/18 08:16 Dose: 20 mg Lactated Ringer's (Lactated Ringer's) 1,000 mls @ 50 mls/hr IV .Q20H GLADIS Last Admin: 10/28/18 08:13 Dose: 50 mls/hr Micafungin Sodium 50 mg/ (Sodium Chloride) 100 mls @ 100 mls/hr IVPB DAILY GLADIS; Protocol Last Admin: 10/28/18 08:16 Dose: 100 mls/hr - Labs Labs: 10/28/18 06:00 10/28/18 04:39 PT 16.8 Seconds (9.8-13.1) H 10/27/18 05:12 INR 1.5 10/27/18 05:12 APTT 29.4 Seconds (25.6-37.1) 10/26/18 13:37 Assessment and Plan - Assessment and Plan (Free Text) Assessment: PRE RENAL AZOTEMIA .. BETTER ELECTROLYTES ABNORMALITIES .. BETTER VDRF MMP P : C/O CURRENT CARE C/O PRESENT MANAGEMENT
--- NOTE | 2018-10-28 20:35 | CP.PCM.PN ---
Subjective - Date & Time of Evaluation Date of Evaluation: 10/28/18 Time of Evaluation: 15:15 - Subjective Subjective: Seen and examined at the bed side. Continue to be on Pressor but less levophed today. G-tube to be inserted when patient is off pressor and stable enough to undergo through the procedure. Poor prognosis. Objective - Vital Signs/Intake and Output Vital Signs (last 24 hours): Temp Pulse Resp BP Pulse Ox 100.6 F H 128 H 20 94/57 L 100 10/28/18 19:38 10/28/18 19:38 10/28/18 19:38 10/28/18 19:38 10/28/18 19:38 Intake and Output: 10/28/18 10/29/18 18:59 06:59 Intake Total 1635 Output Total 360 Balance 1275 - Medications Medications: Current Medications Famotidine (Pepcid) 20 mg IVP Q12 GLADIS Last Admin: 10/28/18 08:16 Dose: 20 mg Lactated Ringer's (Lactated Ringer's) 1,000 mls @ 50 mls/hr IV .Q20H GLADIS Last Admin: 10/28/18 08:13 Dose: 50 mls/hr Micafungin Sodium 50 mg/ (Sodium Chloride) 100 mls @ 100 mls/hr IVPB DAILY GLADIS; Protocol Last Admin: 10/28/18 08:16 Dose: 100 mls/hr - Labs Labs: 10/28/18 06:00 10/28/18 04:39 PT 16.8 Seconds (9.8-13.1) H 10/27/18 05:12 INR 1.5 10/27/18 05:12 APTT 29.4 Seconds (25.6-37.1) 10/26/18 13:37 - Constitutional Appears: Toxic, In Acute Distress - Neck Exam Additional comments: +Tracheostomy. - Cardiovascular Exam Cardiovascular Exam: +S1, +S2 - GI/Abdominal Exam GI & Abdominal Exam: Distended - Extremities Exam Extremities Exam: Pedal Edema Assessment and Plan (1) Anasarca Status: Acute (2) Septic shock Status: Resolved (3) Multiple organ dysfunction syndrome Status: Acute (4) Acute respiratory failure with hypoxemia Status: Acute (5) Thrombocytopenia Status: Resolved (6) Ascites, malignant Status: Acute (7) Congestive heart failure (CHF) Status: Acute (8) Stage IV breast cancer in female Status: Acute (9) Severe anemia Status: Resolved (10) DVT of lower extremity, bilateral Status: Chronic - Assessment and Plan (Free Text) Plan: Continue Current Care May Need Ethics Committee determine as patient has poor prognosis and no chance of recovery with Quality of Life. NOK continue to Insist on Full Code and everything to be done
[2018-10-29 06:02] LABS: ABG ALLEN TEST YES; ARTERIAL BLOOD GAS HCO3 20.2 mmol/L (21-28); ARTERIAL BLOOD GAS O2 CONTENT 11.1 ML/dL (15-23); ARTERIAL BLOOD GAS O2 SAT 100.6 % (95-98); ARTERIAL BLOOD GAS PCO2 28 mm/Hg (35-45); ARTERIAL BLOOD GAS PH 7.41 (7.35-7.45); ARTERIAL BLOOD GAS PO2 94 mm/Hg (80-100); ARTERIAL BLOOD GAS TCO2 18.6 mmol/L (22-28)
[2018-10-29] MEDS: Lactated Ringer's 1,000 ML IV SCH (06:02)
[2018-10-29 06:34] LABS: HEMOGLOBIN 7.6 g/dL (12.0-16.0); MEAN CORPUSCULAR HEMOGLOBIN 30.8 pg (27.0-31.0); MEAN CORPUSCULAR HGB CONC 32.1 g/dL (33.0-37.0); RBC 2.48 Mil/uL (3.80-5.20); RED CELL DISTRIBUTION WIDTH 18.5 % (11.5-14.5); WHITE BLOOD COUNT 14.5 K/uL (4.8-10.8)
[2018-10-29 06:47] LABS: ALB/GLOB RATIO 0.7 (1.0-2.1); ALBUMIN 1.8 g/dL (3.5-5.0); ALT/SGPT 22 U/L (9-52); AST/SGOT 16 U/L (14-36); BLOOD UREA NITROGEN 59 mg/dl (7-17); CALCIUM 7.4 mg/dL (8.4-10.2); GFR NON-AFRICAN AMERICAN > 60
--- NOTE | 2018-10-29 07:30 | CP.CCUPN ---
CCU Subjective - Physician Review Events Since Last Encounter (Free Text): Patient on ventilator through tracheostomy, no fever, no vomiting, no response to verbal stim CCU Objective - Vital Signs / Intake & Output Vital Signs (Last 4 hours): Vital Signs Temp Pulse Resp BP Pulse Ox 10/29/18 07:00 99.7 F H 123 H 14 91/49 L 100 10/29/18 06:00 98.2 F 125 H 18 95/57 L 100 10/29/18 05:00 99.9 F H 126 H 16 93/59 L 100 10/29/18 04:00 100 F H 125 H 16 94/60 L 100 Intake and Output (Last 8hrs): Intake & Output 10/28/18 10/29/18 10/29/18 22:59 06:59 14:59 Intake Total 980 1280 Output Total 100 650 Balance 880 630 Weight 151 lb 6.4 oz Intake: IV 400 400 Tube Feeding 280 280 Free Water Flush 300 600 Output: Urine 100 650 Urethral (Orellana) 100 650 - Physical Exam Head: Positive for: Atraumatic, Normocephalic Pupils: Positive for: PERRL Extroacular Muscles: Positive for: EOMI Conjunctiva: Negative for: Injected, Icteric Ears: Positive for: Normal Mouth: Positive for: Moist Mucous Membranes Nose (Internal): Positive for: Normal Inspection Neck: Positive for: Normal Range of Motion, Trachea Midline, Other (trac heostomy) Respiratory/Chest: Positive for: Good Air Exchange, Rales, Retracting, Rhonchi. Negative for: Accessory Muscle Use, Wheezes, Tachypneic Cardiovascular: Positive for: Regular Rate and Rhythm, Normal S1, S2, Peripheal Pulses Present. Negative for: Murmurs, Irregular Rhythm, Tachycardic, Bradycardic Abdomen: Positive for: Normal Bowel Sounds Breast/Axillary: Positive for: Other (fungating necrotic mass to Right Breast) Upper Extremity: Positive for: Edema, NORMAL PULSES Lower Extremity: Positive for: Edema, NORMAL PULSES. Negative for: Normal Inspection Neurological: Positive for: Other (on ventilator, opens eyes to verbal stimuli) Psychiatric: Negative for: Alert - Medications Active Medications: Active Medications Generic Name Dose Route Start Last Admin Trade Name Freq PRN Reason Stop Dose Admin Famotidine 20 mg 10/25/18 21:00 10/28/18 21:27 Pepcid IVP 20 mg Q12 GLADIS Administration Lactated Ringer's 1,000 mls @ 50 mls/hr 10/26/18 12:45 10/29/18 06:02 Lactated Ringer's IV 50 mls/hr .Q20H GLADIS Administration Micafungin Sodium 50 mg/ 100 mls @ 100 mls/hr 10/27/18 09:00 10/28/18 08:16 Sodium Chloride IVPB 100 mls/hr DAILY GLADIS Administration Protocol Norepinephrine Bitartrate 16 266 mls @ 14.96 mls/hr 10/28/18 22:45 10/28/18 23:05 mg/ Dextrose IV 10/29/18 16:31 15 mcg/min .[id number] ONE 14.96 mls/hr Administration Protocol 15 MCG/MIN - Patient Studies Lab Studies: Microbiology Studies 10/26/18 18:20 Blood Culture - Preliminary Blood-Thru Central Line NO GROWTH AFTER 48 HOURS 10/27/18 14:00 Blood Culture - Preliminary Blood-Thru Central Line NO GROWTH AFTER 24 HOURS Lab Studies 10/29/18 10/29/18 10/29/18 Range/Units 05:06 04:30 04:30 WBC 14.5 H (4.8-10.8) K/uL RBC 2.48 L (3.80-5.20) Mil/uL Hgb 7.6 L (12.0-16.0) g/dL Hct 23.8 L (34.0-47.0) % MCV 96.0 (81.0-99.0) fl MCH 30.8 (27.0-31.0) pg MCHC 32.1 L (33.0-37.0) g/dL RDW 18.5 H (11.5-14.5) % Plt Count 156 (130-400) K/uL MPV (7.2-11.7) fl Neut % (Auto) (50.0-75.0) % Lymph % (Auto) (20.0-40.0) % [place] % (Auto) (0.0-10.0) % Eos % (Auto) (0.0-4.0) % Baso % (Auto) (0.0-2.0) % Neut # (Auto) (1.8-7.0) K/uL Lymph # (Auto) (1.0-4.3) K/uL [place] # (Auto) (0.0-0.8) K/uL Eos # (Auto) (0.0-0.7) K/uL Baso # (Auto) (0.0-0.2) K/uL pCO2 28 L (35-45) mm/Hg pO2 94 (80-100) mm/Hg HCO3 20.2 L (21-28) mmol/L ABG pH 7.41 (7.35-7.45) ABG Total CO2 18.6 L (22-28) mmol/L ABG O2 Saturation 100.6 H (95-98) % ABG O2 Content 11.1 L (15-23) ML/dL ABG Base Excess -6.1 L (-2.0-3.0) mmol/L ABG Hemoglobin 8.0 L (11.7-17.4) g/dL ABG Carboxyhemoglobin 2.0 H (0.5-1.5) % POC ABG HHb (Measured) -0.6 L (0.0-5.0) % ABG Methemoglobin 1.2 (0.0-3.0) % ABG O2 Capacity 11.0 L (16-24) mL/dL Frederic Test Yes A-a O2 Difference 121.0 mm/Hg Hgb O2 Saturation 97.4 (95.0-98.0) % Vent Mode A/c Mechanical Rate 12 FiO2 35.0 % Tidal Volume 450 PEEP 5 Sodium 134 (132-148) mmol/l Potassium 3.3 L (3.6-5.0) MMOL/L Chloride 105 (98-107) mmol/L Carbon Dioxide 21 L (22-30) mmol/L Anion Gap 11 (10-20) BUN 59 H (7-17) mg/dl Creatinine 0.9 (0.7-1.2) mg/dl Est GFR ( Amer) > 60 Est GFR (Non-Af Amer) > 60 Random Glucose 114 H (65-105) mg/dL Calcium 7.4 L (8.4-10.2) mg/dL Total Bilirubin 0.3 (0.2-1.3) mg/dl AST 16 (14-36) U/L ALT 22 (9-52) U/L Alkaline Phosphatase 87 (38-126) U/L Total Protein 4.5 L (6.3-8.2) G/DL Albumin 1.8 L (3.5-5.0) g/dL Globulin 2.7 (2.2-3.9) gm/dL Albumin/Globulin Ratio 0.7 L (1.0-2.1) 10/28/18 10/28/18 Range/Units 06:00 04:39 WBC 12.7 H (4.8-10.8) K/uL RBC 2.80 L (3.80-5.20) Mil/uL Hgb 8.6 L (12.0-16.0) g/dL Hct 26.9 L (34.0-47.0) % MCV 96.2 (81.0-99.0) fl MCH 30.7 (27.0-31.0) pg MCHC 32.0 L (33.0-37.0) g/dL RDW 18.4 H (11.5-14.5) % Plt Count 178 (130-400) K/uL MPV 10.7 (7.2-11.7) fl Neut % (Auto) 89.0 H (50.0-75.0) % Lymph % (Auto) 5.0 L (20.0-40.0) % [place] % (Auto) 5.9 (0.0-10.0) % Eos % (Auto) 0.0 (0.0-4.0) % Baso % (Auto) 0.1 (0.0-2.0) % Neut # (Auto) 11.3 H (1.8-7.0) K/uL Lymph # (Auto) 0.6 L (1.0-4.3) K/uL [place] # (Auto) 0.8 (0.0-0.8) K/uL Eos # (Auto) 0.0 (0.0-0.7) K/uL Baso # (Auto) 0.0 (0.0-0.2) K/uL pCO2 (35-45) mm/Hg pO2 (80-100) mm/Hg HCO3 (21-28) mmol/L ABG pH (7.35-7.45) ABG Total CO2 (22-28) mmol/L ABG O2 Saturation (95-98) % ABG O2 Content (15-23) ML/dL ABG Base Excess (-2.0-3.0) mmol/L ABG Hemoglobin (11.7-17.4) g/dL ABG Carboxyhemoglobin (0.5-1.5) % POC ABG HHb (Measured) (0.0-5.0) % ABG Methemoglobin (0.0-3.0) % ABG O2 Capacity (16-24) mL/dL Frederic Test A-a O2 Difference mm/Hg Hgb O2 Saturation (95.0-98.0) % Vent Mode Mechanical Rate FiO2 % Tidal Volume PEEP Sodium 134 (132-148) mmol/l Potassium 3.6 (3.6-5.0) MMOL/L Chloride 105 (98-107) mmol/L Carbon Dioxide 19 L (22-30) mmol/L Anion Gap 14 (10-20) BUN 61 H (7-17) mg/dl Creatinine 0.9 (0.7-1.2) mg/dl Est GFR ( Amer) > 60 Est GFR (Non-Af Amer) > 60 Random Glucose 131 H (65-105) mg/dL Calcium 7.2 L (8.4-10.2) mg/dL Total Bilirubin (0.2-1.3) mg/dl AST (14-36) U/L ALT (9-52) U/L Alkaline Phosphatase (38-126) U/L Total Protein (6.3-8.2) G/DL Albumin (3.5-5.0) g/dL Globulin (2.2-3.9) gm/dL Albumin/Globulin Ratio (1.0-2.1) Laboratory Results - last 24 hr 10/28/18 10/28/18 10/29/18 04:39 06:00 04:30 WBC 12.7 H 14.5 H RBC 2.80 L 2.48 L Hgb 8.6 L 7.6 L Hct 26.9 L 23.8 L MCV 96.2 96.0 MCH 30.7 30.8 MCHC 32.0 L 32.1 L RDW 18.4 H 18.5 H Plt Count 178 156 MPV 10.7 Neut % (Auto) 89.0 H Lymph % (Auto) 5.0 L [place] % (Auto) 5.9 Eos % (Auto) 0.0 Baso % (Auto) 0.1 Neut # (Auto) 11.3 H Lymph # (Auto) 0.6 L [place] # (Auto) 0.8 Eos # (Auto) 0.0 Baso # (Auto) 0.0 pCO2 pO2 HCO3 ABG pH ABG Total CO2 ABG O2 Saturation ABG O2 Content ABG Base Excess ABG Hemoglobin ABG Carboxyhemoglobin POC ABG HHb (Measured) ABG Methemoglobin ABG O2 Capacity Frederic Test A-a O2 Difference Hgb O2 Saturation Vent Mode Mechanical Rate FiO2 Tidal Volume PEEP Sodium 134 Potassium 3.6 Chloride 105 Carbon Dioxide 19 L Anion Gap 14 BUN 61 H Creatinine 0.9 Est GFR ( Amer) > 60 Est GFR (Non-Af Amer) > 60 Random Glucose 131 H Calcium 7.2 L Total Bilirubin AST ALT Alkaline Phosphatase Total Protein Albumin Globulin Albumin/Globulin Ratio 10/29/18 10/29/18 04:30 05:06 WBC RBC Hgb Hct MCV MCH MCHC RDW Plt Count MPV Neut % (Auto) Lymph % (Auto) [place] % (Auto) Eos % (Auto) Baso % (Auto) Neut # (Auto) Lymph # (Auto) [place] # (Auto) Eos # (Auto) Baso # (Auto) pCO2 28 L pO2 94 HCO3 20.2 L ABG pH 7.41 ABG Total CO2 18.6 L ABG O2 Saturation 100.6 H ABG O2 Content 11.1 L ABG Base Excess -6.1 L ABG Hemoglobin 8.0 L ABG Carboxyhemoglobin 2.0 H POC ABG HHb (Measured) -0.6 L ABG Methemoglobin 1.2 ABG O2 Capacity 11.0 L Frederic Test Yes A-a O2 Difference 121.0 Hgb O2 Saturation 97.4 Vent Mode A/c Mechanical Rate 12 FiO2 35.0 Tidal Volume 450 PEEP 5 Sodium 134 Potassium 3.3 L Chloride 105 Carbon Dioxide 21 L Anion Gap 11 BUN 59 H Creatinine 0.9 Est GFR ( Amer) > 60 Est GFR (Non-Af Amer) > 60 Random Glucose 114 H Calcium 7.4 L Total Bilirubin 0.3 AST 16 ALT 22 Alkaline Phosphatase 87 Total Protein 4.5 L Albumin 1.8 L Globulin 2.7 Albumin/Globulin Ratio 0.7 L Radiology Impressions: Radiology Impressions Chest X-Ray 10/28/18 06:00 IMPRESSION: Diminished left pleural effusion. Underlying atelectasis or infiltrate remains question the left greater than right lung bases with mild right pleural effusion unchanged. Critical Care Progress Note - Nutrition Nutrition: Nutrition Category Date Time Status NPO Diet [DIET] Diets 10/03/18 Breakfast Active Assessment/Plan - Assessment and Plan (Free Text) Assessment: A/P Respiratory failure, pneumonia, severe sepsis, metastatic breast ca, anemia, h/o DVT, s/p pancreatitis, vaginal bleeding, malignant ascietis - Ventilatory support - Pulmonary toilets - Continue meds - OG tube feeding - Extremely Poor prognosis
--- NOTE | 2018-10-29 12:09 | CP.PCM.PN ---
Subjective - Date & Time of Evaluation Date of Evaluation: 10/29/18 Time of Evaluation: 12:09 - Subjective Subjective: ID Note- Pt. seen and examined today in ICU. pt. unresponsive. still vented and on levophed. Objective - Vital Signs/Intake and Output Vital Signs (last 24 hours): Temp Pulse Resp BP Pulse Ox 100 F H 127 H 19 96/58 L 100 10/29/18 08:00 10/29/18 11:00 10/29/18 11:00 10/29/18 11:00 10/29/18 11:00 Intake and Output: 10/29/18 10/29/18 06:59 18:59 Intake Total 1620 771 Output Total 650 130 Balance 970 641 - Medications Medications: Current Medications Famotidine (Pepcid) 20 mg IVP Q12 GLADIS Last Admin: 10/29/18 08:17 Dose: 20 mg Lactated Ringer's (Lactated Ringer's) 1,000 mls @ 50 mls/hr IV .Q20H GLADIS Last Admin: 10/29/18 06:02 Dose: 50 mls/hr Micafungin Sodium 50 mg/ (Sodium Chloride) 100 mls @ 100 mls/hr IVPB DAILY GLADIS; Protocol Last Admin: 10/29/18 08:14 Dose: 100 mls/hr Norepinephrine Bitartrate 16 (mg/ Dextrose) 266 mls @ 14.96 mls/hr IV .[id number] ONE; Protocol Stop: 10/29/18 16:31 Last Titration: 10/29/18 09:14 Dose: 17.5 mcg/min, 17.46 mls/hr - Labs Labs: - Additional Findings Additional findings: - Constitutional Appears: Chronically Ill Additional comments: - ENT Exam Additional comments: s/p trache - Respiratory Exam Additional comments: On the vent via Trach - Cardiovascular Exam Cardiovascular Exam: Tachycardia, +S1, +S2 - GI/Abdominal Exam Additional comments: distended hypoactive BS umbilical region with mass like lesion with denuded skin , no pus + ascites - Extremities Exam Additional comments: b/l 2+ edema in LE and UE - Neurological Exam Additional comments: lethargic Laboratory Results - last 72 hr 10/26/18 10/27/18 10/27/18 13:37 05:12 05:12 WBC 11.0 H RBC 2.77 L Hgb 8.6 L Hct 26.3 L MCV 94.8 D MCH 30.9 MCHC 32.7 L RDW 17.9 H Plt Count 182 MPV 10.8 Neut % (Auto) 85.8 H Lymph % (Auto) 6.0 L Whitfield % (Auto) 7.8 Eos % (Auto) 0.2 Baso % (Auto) 0.2 Neut # (Auto) 9.5 H Lymph # (Auto) 0.7 L Whitfield # (Auto) 0.9 H Eos # (Auto) 0.0 Baso # (Auto) 0.0 Neutrophils % (Manual) 88 H Band Neutrophils % 2 Lymphocytes % (Manual) 4 L Monocytes % (Manual) 6 Platelet Estimate Normal Large Platelets Present Hypochromasia (manual) Slight Anisocytosis (manual) Slight Tear Drop Cells Slight Ovalocytes Slight PT 16.8 H INR 1.5 APTT 29.4 pCO2 pO2 HCO3 ABG pH ABG Total CO2 ABG O2 Saturation ABG O2 Content ABG Base Excess ABG Hemoglobin ABG Carboxyhemoglobin POC ABG HHb (Measured) ABG Methemoglobin ABG O2 Capacity Frederic Test ABG Potassium A-a O2 Difference Hgb O2 Saturation Glucose Lactate Vent Mode Mechanical Rate FiO2 Tidal Volume PEEP Sodium Potassium Chloride Carbon Dioxide Anion Gap BUN Creatinine Est GFR ( Amer) Est GFR (Non-Af Amer) Random Glucose Calcium Total Bilirubin AST ALT Alkaline Phosphatase Total Protein Albumin Globulin Albumin/Globulin Ratio Arterial Blood Potassium 10/27/18 10/27/18 10/28/18 05:12 13:13 04:39 WBC RBC Hgb Hct MCV MCH MCHC RDW Plt Count MPV Neut % (Auto) Lymph % (Auto) Whitfield % (Auto) Eos % (Auto) Baso % (Auto) Neut # (Auto) Lymph # (Auto) Whitfield # (Auto) Eos # (Auto) Baso # (Auto) Neutrophils % (Manual) Band Neutrophils % Lymphocytes % (Manual) Monocytes % (Manual) Platelet Estimate Large Platelets Hypochromasia (manual) Anisocytosis (manual) Tear Drop Cells Ovalocytes PT INR APTT pCO2 30 L pO2 119 H HCO3 21.2 ABG pH 7.41 ABG Total CO2 19.9 L ABG O2 Saturation 99.6 H ABG O2 Content ABG Base Excess -4.8 L ABG Hemoglobin ABG Carboxyhemoglobin POC ABG HHb (Measured) ABG Methemoglobin ABG O2 Capacity Frederic Test Yes ABG Potassium 3.3 L A-a O2 Difference 129.0 Hgb O2 Saturation Glucose 133 H Lactate 1.9 Vent Mode Mechanical Rate FiO2 40.0 Tidal Volume PEEP Sodium 134 133.0 134 Potassium 3.5 L 3.6 Chloride 105 107.0 105 Carbon Dioxide 20 L 19 L Anion Gap 13 14 BUN 63 H 61 H Creatinine 1.1 0.9 Est GFR ( Amer) > 60 > 60 Est GFR (Non-Af Amer) 51 > 60 Random Glucose 113 H 131 H Calcium 7.3 L 7.2 L Total Bilirubin 0.2 AST 15 ALT 18 Alkaline Phosphatase 98 Total Protein 4.9 L Albumin 2.0 L Globulin 2.9 Albumin/Globulin Ratio 0.7 L Arterial Blood Potassium 3.3 L 10/28/18 10/28/18 10/29/18 04:46 06:00 04:30 WBC 12.7 H 14.5 H RBC 2.80 L 2.48 L Hgb 8.6 L 7.6 L Hct 26.9 L 23.8 L MCV 96.2 96.0 MCH 30.7 30.8 MCHC 32.0 L 32.1 L RDW 18.4 H 18.5 H Plt Count 178 156 MPV 10.7 Neut % (Auto) 89.0 H Lymph % (Auto) 5.0 L Whitfield % (Auto) 5.9 Eos % (Auto) 0.0 Baso % (Auto) 0.1 Neut # (Auto) 11.3 H Lymph # (Auto) 0.6 L Whitfield # (Auto) 0.8 Eos # (Auto) 0.0 Baso # (Auto) 0.0 Neutrophils % (Manual) Band Neutrophils % Lymphocytes % (Manual) Monocytes % (Manual) Platelet Estimate Large Platelets Hypochromasia (manual) Anisocytosis (manual) Tear Drop Cells Ovalocytes PT INR APTT pCO2 21 L pO2 149 H HCO3 20.3 L ABG pH 7.49 H ABG Total CO2 16.6 L ABG O2 Saturation 100.3 H ABG O2 Content 12.9 L ABG Base Excess -6.0 L ABG Hemoglobin 9.2 L ABG Carboxyhemoglobin 1.5 POC ABG HHb (Measured) -0.3 L ABG Methemoglobin 1.6 ABG O2 Capacity 12.9 L Frederic Test Yes ABG Potassium A-a O2 Difference 74.0 Hgb O2 Saturation 97.3 Glucose Lactate Vent Mode A/c Mechanical Rate 12 FiO2 35.0 Tidal Volume 450 PEEP 5 Sodium Potassium Chloride Carbon Dioxide Anion Gap BUN Creatinine Est GFR ( Amer) Est GFR (Non-Af Amer) Random Glucose Calcium Total Bilirubin AST ALT Alkaline Phosphatase Total Protein Albumin Globulin Albumin/Globulin Ratio Arterial Blood Potassium 10/29/18 10/29/18 04:30 05:06 WBC RBC Hgb Hct MCV MCH MCHC RDW Plt Count MPV Neut % (Auto) Lymph % (Auto) Whitfield % (Auto) Eos % (Auto) Baso % (Auto) Neut # (Auto) Lymph # (Auto) Whitfield # (Auto) Eos # (Auto) Baso # (Auto) Neutrophils % (Manual) Band Neutrophils % Lymphocytes % (Manual) Monocytes % (Manual) Platelet Estimate Large Platelets Hypochromasia (manual) Anisocytosis (manual) Tear Drop Cells Ovalocytes PT INR APTT pCO2 28 L pO2 94 HCO3 20.2 L ABG pH 7.41 ABG Total CO2 18.6 L ABG O2 Saturation 100.6 H ABG O2 Content 11.1 L ABG Base Excess -6.1 L ABG Hemoglobin 8.0 L ABG Carboxyhemoglobin 2.0 H POC ABG HHb (Measured) -0.6 L ABG Methemoglobin 1.2 ABG O2 Capacity 11.0 L Frederic Test Yes ABG Potassium A-a O2 Difference 121.0 Hgb O2 Saturation 97.4 Glucose Lactate Vent Mode A/c Mechanical Rate 12 FiO2 35.0 Tidal Volume 450 PEEP 5 Sodium 134 Potassium 3.3 L Chloride 105 Carbon Dioxide 21 L Anion Gap 11 BUN 59 H Creatinine 0.9 Est GFR ( Amer) > 60 Est GFR (Non-Af Amer) > 60 Random Glucose 114 H Calcium 7.4 L Total Bilirubin 0.3 AST 16 ALT 22 Alkaline Phosphatase 87 Total Protein 4.5 L Albumin 1.8 L Globulin 2.7 Albumin/Globulin Ratio 0.7 L Arterial Blood Potassium Microbiology 10/26/18 18:20 Blood-Thru Central Line Blood Culture - Preliminary NO GROWTH AFTER 48 HOURS 10/27/18 14:00 Blood-Thru Central Line Blood Culture - Preliminary NO GROWTH AFTER 24 HOURS 10/21/18 08:00 Urine,Catheterized Urine Culture - Final Catrachito Lipolytica 10/18/18 11:55 Blood-Thru Central Line Blood Culture - Final NO GROWTH AFTER 5 DAYS 10/18/18 11:55 Blood-Thru Central Line Gram Stain - Final TEST NOT PERFORMED 10/05/18 06:15 Blood Blood Culture - Final NO GROWTH AFTER 5 DAYS 10/05/18 06:15 Blood Gram Stain - Final TEST NOT PERFORMED 10/05/18 06:30 Blood Blood Culture - Final NO GROWTH AFTER 5 DAYS 10/05/18 06:30 Blood Gram Stain - Final TEST NOT PERFORMED 10/05/18 07:10 Urine,Hardwick Urine Culture - Final Yeast Species 09/25/18 12:10 Blood-Thru Central Line Blood Culture - Final NO GROWTH AFTER 5 DAYS 09/25/18 12:10 Blood-Thru Central Line Gram Stain - Final TEST NOT PERFORMED 09/20/18 14:00 Blood-Thru Central Line Blood Culture - Final NO GROWTH AFTER 5 DAYS 09/20/18 17:53 Trachasp Gram Stain - Final 09/20/18 17:53 Trachasp Sputum Culture - Final Yeast Species 09/20/18 17:53 Urine,Hardwick Urine Culture - Final No Growth (<1,000 CFU/ML) 09/15/18 15:35 Blood-Thru Central Line Blood Culture - Final NO GROWTH AFTER 5 DAYS 09/15/18 15:35 Blood-Thru Central Line Gram Stain - Final TEST NOT PERFORMED 09/15/18 15:25 Blood-Thru Central Line Blood Culture - Final NO GROWTH AFTER 5 DAYS 09/15/18 15:25 Blood-Thru Central Line Gram Stain - Final TEST NOT PERFORMED 09/08/18 11:49 Blood-Venous Blood Culture - Final NO GROWTH AFTER 5 DAYS 09/08/18 11:49 Blood-Venous Gram Stain - Final TEST NOT PERFORMED 09/08/18 11:49 Blood-Venous Blood Culture - Final NO GROWTH AFTER 5 DAYS 09/08/18 11:49 Blood-Venous Gram Stain - Final TEST NOT PERFORMED 09/07/18 Unknown Blood-Thru Central Line Blood Culture - Final NO GROWTH AFTER 5 DAYS 09/07/18 Unknown Blood-Thru Central Line Gram Stain - Final TEST NOT PERFORMED 09/07/18 Unknown Blood-Thru Central Line Blood Culture - Final NO GROWTH AFTER 5 DAYS 09/07/18 Unknown Blood-Thru Central Line Gram Stain - Final TEST NOT PERFORMED 09/07/18 09:07 Trachasp Gram Stain - Final 09/07/18 09:07 Trachasp Sputum Culture - Final Yeast Species 09/04/18 11:25 Naris MRSA Culture (Admit) - Final MRSA NOT DETECTED Accession No. : [id number] Patient Name / ID : RYLEE ONEIL / [id number] Exam Date : 10/28/2018 05:02:39 ( Approved ) Study Comment : Sex / Age : F / 58Y Creator : Syed Avalos MD Dictator : Syed Avalos MD Assembly Room Supervisor : Residential Air Sealing Technician : Syed Avalos MD Approver2 : Report Date : 10/28/2018 08:26:52 My Comment : Date of service: 10/28/2018 HISTORY: trach COMPARISON: Portable chest 10/27/2018. TECHNIQUE: 1 view obtained. FINDINGS: LUNGS: Endotracheal tube and left MediPort unchanged in position as well as orogastric tube. No interval change in mild right pleural effusion appreciated, with left pleural effusion reduced. Underlying atelectasis or infiltrates not excluded once again at the left greater than right bases. No pneumothorax bilaterally. PLEURA: As above. CARDIOVASCULAR: No aortic atherosclerotic calcification present. Normal cardiac size. No pulmonary vascular congestion. OSSEOUS STRUCTURES: No significant abnormalities. VISUALIZED UPPER ABDOMEN: Normal. OTHER FINDINGS: None. IMPRESSION: Diminished left pleural effusion. Underlying atelectasis or infiltrate remains question the left greater than right lung bases with mild right pleural effusion unchanged. 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 remains on the vent remains on levophed low grade fever today. leukocytosis slightly increased today. blood cx- neg x 11 trach asp cx- yeast ( treated) stool c.diff- negative repeat UA- negative repeat urine cx- yeast ( treated) hardwick removed 4 days ago repeat urine cx - yeast finally ID as catrachito lipolytica ( hardwick was removed a week ago). cxr today once gain left pleural effusion. PLan- 9 days ago d/c all empiric antibiotics as pt. has been on them for 38 days so far and all cx negative except yeast in sputum and urine cx which has been treated with 34 days of IV diflucan. completed total 25 days of IV vanco today. completed 38 days of Iv meropnem today. completed 34 days of IV diflucan. continue with micafungin day #4 for Catrachito lypolytica in urine cx. new hardwick placed today. advise check 2 more blood cx. all labs and imaging and chart notes reviewed. critical care time spent 30 min. prognosis poor. All above d/w ICU team in detail.
--- NOTE | 2018-10-30 00:54 | CP.PCM.PN ---
Subjective - Date & Time of Evaluation Date of Evaluation: 10/29/18 Time of Evaluation: 22:25 - Subjective Subjective: Seen and examined at the bed side. Patient declined with Increased Levophed to 20mcgtoday due to continud HYp Objective - Vital Signs/Intake and Output Vital Signs (last 24 hours): Temp Pulse Resp BP Pulse Ox 100.8 F H 133 H 21 104/64 100 10/30/18 00:00 10/29/18 23:00 10/29/18 23:00 10/29/18 23:00 10/29/18 23:00 Intake and Output: 10/29/18 10/30/18 18:59 06:59 Intake Total 1901 825 Output Total 300 Balance 1601 825 - Medications Medications: Current Medications Famotidine (Pepcid) 20 mg IVP Q12 GLADIS Last Admin: 10/29/18 20:23 Dose: 20 mg Lactated Ringer's (Lactated Ringer's) 1,000 mls @ 50 mls/hr IV .Q20H GLADIS Last Admin: 10/29/18 06:02 Dose: 50 mls/hr Micafungin Sodium 50 mg/ (Sodium Chloride) 100 mls @ 100 mls/hr IVPB DAILY GLADIS; Protocol Last Admin: 10/29/18 08:14 Dose: 100 mls/hr Norepinephrine Bitartrate 16 (mg/ Dextrose) 266 mls @ 19.95 mls/hr IV .[id number] ONE; Protocol Stop: 10/30/18 09:44 Last Admin: 10/29/18 20:30 Dose: 20 mcg/min, 19.95 mls/hr - Labs Labs: 10/29/18 04:30 10/29/18 04:30 PT 16.8 Seconds (9.8-13.1) H 10/27/18 05:12 INR 1.5 10/27/18 05:12 APTT 29.4 Seconds (25.6-37.1) 10/26/18 13:37 Assessment and Plan (1) Anasarca Status: Acute (2) Septic shock Status: Resolved (3) Multiple organ dysfunction syndrome Status: Acute (4) Acute respiratory failure with hypoxemia Status: Acute (5) Thrombocytopenia Status: Resolved (6) Ascites, malignant Status: Acute (7) Congestive heart failure (CHF) Assessment & Plan: continue current care Poor Prognosis Status: Acute (8) Stage IV breast cancer in female Status: Acute (9) Severe anemia Status: Resolved (10) DVT of lower extremity, bilateral Status: Chronic
[2018-10-30 04:31] LABS: ABG ALLEN TEST YES; ARTERIAL BLOOD GAS HEMOGLOBIN 7.7 g/dL (11.7-17.4); ARTERIAL BLOOD GAS O2 CAPACITY 10.7 mL/dL (16-24); ARTERIAL BLOOD GAS O2 CONTENT 10.6 ML/dL (15-23); ARTERIAL BLOOD GAS O2 SAT 98.9 % (95-98); ARTERIAL BLOOD GAS PCO2 28 mm/Hg (35-45); ARTERIAL BLOOD GAS PH 7.43 (7.35-7.45); ARTERIAL BLOOD GAS PO2 100 mm/Hg (80-100); ARTERIAL BLOOD GAS TCO2 19.5 mmol/L (22-28)
[2018-10-30 05:41] LABS: BASO % 0.2 % (0.0-2.0); EOS % 0.1 % (0.0-4.0); HEMOGLOBIN 7.3 g/dL (12.0-16.0); LYMPH # 0.6 K/uL (1.0-4.3); LYMPH % 4.3 % (20.0-40.0); MEAN CELL VOLUME 96.2 fl (81.0-99.0); MEAN CORPUSCULAR HGB CONC 32.3 g/dL (33.0-37.0); MEAN PLATELET VOLUME 10.4 fl (7.2-11.7); MONO # 0.8 K/uL (0.0-0.8); MONO % 5.6 % (0.0-10.0); NEUT % 89.8 % (50.0-75.0); PLATELET COUNT 144 K/uL (130-400); RBC 2.34 Mil/uL (3.80-5.20); RED CELL DISTRIBUTION WIDTH 18.5 % (11.5-14.5); WHITE BLOOD COUNT 14.5 K/uL (4.8-10.8)
[2018-10-30 05:48] LABS: BLOOD UREA NITROGEN 58 mg/dl (7-17); CALCIUM 7.3 mg/dL (8.4-10.2); GFR NON-AFRICAN AMERICAN > 60
[2018-10-30] MEDS: Lactated Ringer's 1,000 ML IV SCH (06:00)
[2018-10-30] MEDS ORDERED: Potassium Chloride 20 mEq/15 ml LIQ UD PO ONE ×2 (08:00→10:00)
--- NOTE | 2018-10-30 09:33 | RAD ---
Date of service: 10/30/2018 HISTORY: trach COMPARISON: 10/28/2018 FINDINGS: There is stable position of the tracheostomy tube. Left central venous catheter terminates in the right atrium. LUNGS: Again seen are low lung volumes. There is airspace disease in both lower lobes, worse on the left. There is mild pulmonary venous congestion. PLEURA: No change in bilateral small effusions, larger on the left. CARDIOVASCULAR: The heart is normal in size. No aortic atherosclerotic calcifications present. OSSEOUS STRUCTURES: Within normal limits for the patient's age. VISUALIZED UPPER ABDOMEN: Normal. OTHER FINDINGS: None. IMPRESSION: Little interval change in bilateral pleural effusions, larger on the left and bibasilar airspace disease which may represent atelectasis/pneumonia. Stable position of tracheostomy tube and left central venous catheter.
--- NOTE | 2018-10-30 13:14 | CP.PCM.PN ---
Subjective - Date & Time of Evaluation Date of Evaluation: 10/30/18 Time of Evaluation: 13:14 - Subjective Subjective: Id Note- Patient seen and examined today in ICU. remains on the vent and on levophed. no new events. Objective - Vital Signs/Intake and Output Vital Signs (last 24 hours): Temp Pulse Resp BP Pulse Ox 100.6 F H 123 H 14 102/64 100 10/30/18 12:00 10/30/18 12:00 10/30/18 12:00 10/30/18 12:00 10/30/18 12:00 Intake and Output: 10/30/18 10/30/18 06:59 18:59 Intake Total 2014 987 Output Total 500 10 Balance 1515 977 - Medications Medications: Current Medications Famotidine (Pepcid) 20 mg IVP Q12 GLADIS Last Admin: 10/30/18 08:34 Dose: 20 mg Lactated Ringer's (Lactated Ringer's) 1,000 mls @ 50 mls/hr IV .Q20H GLADIS Last Admin: 10/30/18 06:00 Dose: 50 mls/hr Micafungin Sodium 50 mg/ (Sodium Chloride) 100 mls @ 100 mls/hr IVPB DAILY GLADIS; Protocol Last Admin: 10/30/18 08:28 Dose: 100 mls/hr Midodrine (Proamatine) 10 mg PO TID GLADIS - Labs Labs: - Additional Findings Additional findings: - Constitutional Appears: Chronically Ill Additional comments: - ENT Exam Additional comments: s/p trache - Respiratory Exam Additional comments: On the vent via Trach decreased breath sounds on left side - Cardiovascular Exam Cardiovascular Exam: Tachycardia, +S1, +S2 - GI/Abdominal Exam Additional comments: distended hypoactive BS + ascites - Extremities Exam Additional comments: b/l 2+ edema in LE and UE - Neurological Exam Additional comments: does not follow any commands Laboratory Results - last 72 hr 10/28/18 10/28/18 10/28/18 04:39 04:46 06:00 WBC 12.7 H RBC 2.80 L Hgb 8.6 L Hct 26.9 L MCV 96.2 MCH 30.7 MCHC 32.0 L RDW 18.4 H Plt Count 178 MPV 10.7 Neut % (Auto) 89.0 H Lymph % (Auto) 5.0 L Calhoun % (Auto) 5.9 Eos % (Auto) 0.0 Baso % (Auto) 0.1 Neut # (Auto) 11.3 H Lymph # (Auto) 0.6 L Calhoun # (Auto) 0.8 Eos # (Auto) 0.0 Baso # (Auto) 0.0 pCO2 21 L pO2 149 H HCO3 20.3 L ABG pH 7.49 H ABG Total CO2 16.6 L ABG O2 Saturation 100.3 H ABG O2 Content 12.9 L ABG Base Excess -6.0 L ABG Hemoglobin 9.2 L ABG Carboxyhemoglobin 1.5 POC ABG HHb (Measured) -0.3 L ABG Methemoglobin 1.6 ABG O2 Capacity 12.9 L Frederic Test Yes A-a O2 Difference 74.0 Hgb O2 Saturation 97.3 Vent Mode A/c Mechanical Rate 12 FiO2 35.0 Tidal Volume 450 PEEP 5 Sodium 134 Potassium 3.6 Chloride 105 Carbon Dioxide 19 L Anion Gap 14 BUN 61 H Creatinine 0.9 Est GFR ( Amer) > 60 Est GFR (Non-Af Amer) > 60 Random Glucose 131 H Calcium 7.2 L Total Bilirubin AST ALT Alkaline Phosphatase Total Protein Albumin Globulin Albumin/Globulin Ratio 10/29/18 10/29/18 10/29/18 04:30 04:30 05:06 WBC 14.5 H RBC 2.48 L Hgb 7.6 L Hct 23.8 L MCV 96.0 MCH 30.8 MCHC 32.1 L RDW 18.5 H Plt Count 156 MPV Neut % (Auto) Lymph % (Auto) Calhoun % (Auto) Eos % (Auto) Baso % (Auto) Neut # (Auto) Lymph # (Auto) Calhoun # (Auto) Eos # (Auto) Baso # (Auto) pCO2 28 L pO2 94 HCO3 20.2 L ABG pH 7.41 ABG Total CO2 18.6 L ABG O2 Saturation 100.6 H ABG O2 Content 11.1 L ABG Base Excess -6.1 L ABG Hemoglobin 8.0 L ABG Carboxyhemoglobin 2.0 H POC ABG HHb (Measured) -0.6 L ABG Methemoglobin 1.2 ABG O2 Capacity 11.0 L Frederic Test Yes A-a O2 Difference 121.0 Hgb O2 Saturation 97.4 Vent Mode A/c Mechanical Rate 12 FiO2 35.0 Tidal Volume 450 PEEP 5 Sodium 134 Potassium 3.3 L Chloride 105 Carbon Dioxide 21 L Anion Gap 11 BUN 59 H Creatinine 0.9 Est GFR ( Amer) > 60 Est GFR (Non-Af Amer) > 60 Random Glucose 114 H Calcium 7.4 L Total Bilirubin 0.3 AST 16 ALT 22 Alkaline Phosphatase 87 Total Protein 4.5 L Albumin 1.8 L Globulin 2.7 Albumin/Globulin Ratio 0.7 L 10/30/18 10/30/18 10/30/18 04:22 05:19 05:19 WBC 14.5 H RBC 2.34 L Hgb 7.3 L Hct 22.5 L MCV 96.2 MCH 31.0 MCHC 32.3 L RDW 18.5 H Plt Count 144 MPV 10.4 Neut % (Auto) 89.8 H Lymph % (Auto) 4.3 L Calhoun % (Auto) 5.6 Eos % (Auto) 0.1 Baso % (Auto) 0.2 Neut # (Auto) 13.0 H Lymph # (Auto) 0.6 L Calhoun # (Auto) 0.8 Eos # (Auto) 0.0 Baso # (Auto) 0.0 pCO2 28 L pO2 100 HCO3 21.0 ABG pH 7.43 ABG Total CO2 19.5 L ABG O2 Saturation 98.9 H ABG O2 Content 10.6 L ABG Base Excess -5.0 L ABG Hemoglobin 7.7 L ABG Carboxyhemoglobin 0.7 POC ABG HHb (Measured) 1.1 ABG Methemoglobin 1.9 ABG O2 Capacity 10.7 L Frederic Test Yes A-a O2 Difference 115.0 Hgb O2 Saturation 96.4 Vent Mode A/c Mechanical Rate 12 FiO2 35.0 Tidal Volume 450 PEEP 5 Sodium 134 Potassium 3.2 L Chloride 105 Carbon Dioxide 19 L Anion Gap 13 BUN 58 H Creatinine 0.8 Est GFR ( Amer) > 60 Est GFR (Non-Af Amer) > 60 Random Glucose 111 H Calcium 7.3 L Total Bilirubin AST ALT Alkaline Phosphatase Total Protein Albumin Globulin Albumin/Globulin Ratio Microbiology 10/26/18 18:20 Blood-Thru Central Line Blood Culture - Preliminary NO GROWTH AFTER 3 DAYS 10/27/18 14:00 Blood-Thru Central Line Blood Culture - Preliminary NO GROWTH AFTER 48 HOURS 10/21/18 08:00 Urine,Catheterized Urine Culture - Final Catrachito Lipolytica 10/18/18 11:55 Blood-Thru Central Line Blood Culture - Final NO GROWTH AFTER 5 DAYS 10/18/18 11:55 Blood-Thru Central Line Gram Stain - Final TEST NOT PERFORMED 10/05/18 06:15 Blood Blood Culture - Final NO GROWTH AFTER 5 DAYS 10/05/18 06:15 Blood Gram Stain - Final TEST NOT PERFORMED 10/05/18 06:30 Blood Blood Culture - Final NO GROWTH AFTER 5 DAYS 10/05/18 06:30 Blood Gram Stain - Final TEST NOT PERFORMED 10/05/18 07:10 Urine,Hardwick Urine Culture - Final Yeast Species 09/25/18 12:10 Blood-Thru Central Line Blood Culture - Final NO GROWTH AFTER 5 DAYS 09/25/18 12:10 Blood-Thru Central Line Gram Stain - Final TEST NOT PERFORMED 09/20/18 14:00 Blood-Thru Central Line Blood Culture - Final NO GROWTH AFTER 5 DAYS 09/20/18 17:53 Trachasp Gram Stain - Final 09/20/18 17:53 Trachasp Sputum Culture - Final Yeast Species 09/20/18 17:53 Urine,Hardwick Urine Culture - Final No Growth (<1,000 CFU/ML) 09/15/18 15:35 Blood-Thru Central Line Blood Culture - Final NO GROWTH AFTER 5 DAYS 09/15/18 15:35 Blood-Thru Central Line Gram Stain - Final TEST NOT PERFORMED 09/15/18 15:25 Blood-Thru Central Line Blood Culture - Final NO GROWTH AFTER 5 DAYS 09/15/18 15:25 Blood-Thru Central Line Gram Stain - Final TEST NOT PERFORMED 09/08/18 11:49 Blood-Venous Blood Culture - Final NO GROWTH AFTER 5 DAYS 09/08/18 11:49 Blood-Venous Gram Stain - Final TEST NOT PERFORMED 09/08/18 11:49 Blood-Venous Blood Culture - Final NO GROWTH AFTER 5 DAYS 09/08/18 11:49 Blood-Venous Gram Stain - Final TEST NOT PERFORMED 09/07/18 Unknown Blood-Thru Central Line Blood Culture - Final NO GROWTH AFTER 5 DAYS 09/07/18 Unknown Blood-Thru Central Line Gram Stain - Final TEST NOT PERFORMED 09/07/18 Unknown Blood-Thru Central Line Blood Culture - Final NO GROWTH AFTER 5 DAYS 09/07/18 Unknown Blood-Thru Central Line Gram Stain - Final TEST NOT PERFORMED 09/07/18 09:07 Trachasp Gram Stain - Final 09/07/18 09:07 Trachasp Sputum Culture - Final Yeast Species 09/04/18 11:25 Naris MRSA Culture (Admit) - Final MRSA NOT DETECTED Accession No. : [id number] Patient Name / ID : RYLEE ONEIL / [id number] Exam Date : 10/30/2018 03:54:21 ( Approved ) Study Comment : Sex / Age : F / 58Y Creator : Krystle Gage MD Dictator : Krystle Gage MD Gum Dipper : Cuffer : Krystle Gage MD Approver2 : Report Date : 10/30/2018 09:27:29 My Comment : Date of service: 10/30/2018 HISTORY: trach COMPARISON: 10/28/2018 FINDINGS: There is stable position of the tracheostomy tube. Left central venous catheter terminates in the right atrium. LUNGS: Again seen are low lung volumes. There is airspace disease in both lower lobes, worse on the left. There is mild pulmonary venous congestion. PLEURA: No change in bilateral small effusions, larger on the left. CARDIOVASCULAR: The heart is normal in size. No aortic atherosclerotic calcifications present. OSSEOUS STRUCTURES: Within normal limits for the patient's age. VISUALIZED UPPER ABDOMEN: Normal. OTHER FINDINGS: None. IMPRESSION: Little interval change in bilateral pleural effusions, larger on the left and bibasilar airspace disease which may represent atelectasis/pneumonia. Stable position of tracheostomy tube and left central venous catheter. 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 remains on the vent remains on levophed low grade fever past 3 days. leukocytosis slightly increased today. blood cx- neg x 11 trach asp cx- yeast ( treated) stool c.diff- negative repeat UA- negative repeat urine cx- yeast ( treated) hardwick removed 4 days ago repeat urine cx - yeast finally ID as catrachito lipolytica ( hardwick was removed a week ago). cxr today once gain left pleural effusion and possible infiltrate as per report as well- VAP PLan- had been off antibiotics for past 10 days since her leukocytosis had resolved and was afebrile adn had already completed 38 days of meropnem , 34 days of fluconazole, 25 days of vanco (empirically). check trach asp cx. advise in light of her remaining on the trace and vented adn immunocompromised secondary to hermetastatic cancer to cover for VAP again. advise to start pt. on cefepime and vanco empirically. continue with micafungin day # for Catrachito lypolytica in urine cx. new hardwick placed advise check 2 more blood cx as well. prognosis poor. critical care time spent 30 minutes.
[2018-10-30 15:48] LABS: BANDS 3 % (0-2); LYMPHOCYTE 2 % (20-50); MONOCYTE 7 % (0-10); NEUTROPHIL 88 % (42-75); PLATELET ESTIMATE NORMAL (NORMAL); TOTAL CELLS COUNTED 100
[2018-10-30 15:49] LABS: ANISOCYTOSIS SLIGHT; HYPOCHROMIC MODERATE; OVALOCYTES SLIGHT; TEARDROP CELLS SLIGHT
--- NOTE | 2018-10-30 17:14 | CP.CCUPN ---
CCU Subjective - Physician Review Subjective (Free Text): 10/30/18 17:13 The patient was Seen and examined by me at the bedside, Medical records reviewed and Management issues were discussed and formulated with the house staff. Events reviewed Patient is 58 years old female with past medical history of anemia, anxiety, CHF, deep venous thrombosis, peripheral edema, pulmonary embolism and stage IV advanced metastatic breast cancer Status post chemotherapy 2 days ago Who initially presented to the emergency room on 09/03 for evaluation of intermittent chest pain and shortness of breath for the past 2 days In the emergency room patient stated that this chest pain resolved and breathing got better On exam she was comfortable and was admitted to the medical service Transfused 1 unit of packed red blood cell for hemoglobin of 6.9 also of note Patient recently underwent paracentesis 09/04 Patient was transferred to the intensive care unit after 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 for severe respiratory distress and hypoxemia and patient found to be confused and respiratory distress BP was stable but she was tachycardic, tachypneic and saturating 88% on non- rebreathing mask she is to receive a stat dose of IV Lasix and transferred to the intensive care unit Upon admitting to the to the ICU she was emergently intubated by anesthesia and mechanically ventilated Patient self extubated and she was in distress and she was reintubated ICU coursed for failure to extubate, and Patient S/P trach Currently patient is intubated via Tracheostomy, mechanically ventilated, On PRVC, TV 450, RR 20, FIO2 60% PEEP 5 No improvement of mental status, Off all sedation She looks comfortable and in no distress Sometimes tachypnic, requiring PRN Ativan Improved oxygenation blood pressure boarderline, remains on Levophed at 10 mcg/min + Sepsis better controlled AFebrile today, Tmx 100.6 + Tachycardia, electrolyte including potassium and magnesium was repleted + Fluid overload on exam, PRN Furosemide (Lasix), will give 12.5 gm albumin followed by IV Lasix Most recent Blood 10/18 negative, and Most recent urine 10/05 and 10/21 C/S + yeast This morning labs revealed Persistent Leucocytosis 14.7, Stable renal function BUN/Cr 67/0.8 and Plat count 152K, Hypernatremia improving Na 141 Discussed with the mother at the bedside patient condition, poor prognosis, treatment plans and alternative 10/23 another Family meeting held yesterday with palliative care nurse and the mother, The mother is determined that she wants everything to be done for the patient and she is in agreement with pursuing PEG and possible LTAC placement Discussed patient case with x ray equipment servicer and the plan is for PEG tube placement after the recurrent ascites fluid will be addressed, patient with malignant ascites status post Pararacentesis multiple times on the current admission, discussed with interventional radiology and the plan is to Place Aspira Pleurx catheter for continuous drainage, will discuss with the social science instructor for make an arrangement with the family education and the upon discharge for the accepting facility to be able to continue with the drainage CCU Objective - Vital Signs / Intake & Output Vital Signs (Last 4 hours): Vital Signs Temp Pulse Resp BP Pulse Ox 10/30/18 16:00 124 H 100 10/30/18 15:34 100.8 F H 127 H 18 103/66 100 10/30/18 14:00 123 H 16 106/63 100 Intake and Output (Last 8hrs): Intake & Output 10/30/18 10/30/18 10/30/18 06:59 14:59 22:59 Intake Total 1400 1124 257 Output Total 500 10 Balance 900 1114 257 Weight 153 lb 6.4 oz Intake: IV 400 414 37 Intake, Piggyback 120 100 Tube Feeding 280 310 70 Free Water Flush 600 300 150 Output: Gastric Amount 10 Stomach 10 Urine 500 Urethral (Orellana) 500 - Physical Exam Head: Positive for: Atraumatic, Normocephalic Pupils: Positive for: PERRL Extroacular Muscles: Positive for: EOMI Conjunctiva: Negative for: Injected, Icteric Ears: Positive for: Normal Mouth: Positive for: Moist Mucous Membranes Nose (Internal): Positive for: Normal Inspection Neck: Positive for: Normal Range of Motion, Trachea Midline, Other (tracheostomy) Respiratory/Chest: Positive for: Good Air Exchange, Rales, Retracting, Rhonchi. Negative for: Accessory Muscle Use, Wheezes, Tachypneic Cardiovascular: Positive for: Regular Rate and Rhythm, Normal S1, S2, Peripheal Pulses Present. Negative for: Murmurs, Irregular Rhythm, Tachycardic, Bradycardic Abdomen: Positive for: Normal Bowel Sounds Breast/Axillary: Positive for: Other (fungating necrotic mass to Right Breast) Upper Extremity: Positive for: Edema, NORMAL PULSES Lower Extremity: Positive for: Edema, NORMAL PULSES. Negative for: Normal Inspection Neurological: Positive for: Other (on ventilator, opens eyes to verbal stimuli) Psychiatric: Negative for: Alert - Medications Active Medications: Active Medications Generic Name Dose Route Start Last Admin Trade Name Kedar PRN Reason Stop Dose Admin Famotidine 20 mg 10/25/18 21:00 10/30/18 08:34 Pepcid IVP 20 mg Q12 GLADIS Administration Lactated Ringer's 1,000 mls @ 50 mls/hr 10/26/18 12:45 10/30/18 06:00 Lactated Ringer's IV 50 mls/hr .Q20H GLADIS Administration Micafungin Sodium 50 mg/ 100 mls @ 100 mls/hr 10/27/18 09:00 10/30/18 08:28 Sodium Chloride IVPB 100 mls/hr DAILY GLADIS Administration Protocol Cefepime HCl 2 gm/ Sodium 100 mls @ 100 mls/hr 10/30/18 21:00 Chloride IVPB Q12 GLADIS Protocol Vancomycin HCl 500 mg/ Sodium 100 mls @ 100 mls/hr 10/30/18 21:00 Chloride IVPB Q12 GLADIS Protocol Midodrine 10 mg 10/30/18 13:00 10/30/18 15:43 Proamatine PO 10 mg TID GLADIS Administration - Patient Studies Lab Studies: Microbiology Studies 10/29/18 14:40 Blood Culture - Preliminary Blood-Venous NO GROWTH AFTER 24 HOURS 10/29/18 14:30 Blood Culture - Preliminary Blood-Venous NO GROWTH AFTER 24 HOURS 10/27/18 14:00 Blood Culture - Preliminary Blood-Thru Central Line NO GROWTH AFTER 3 DAYS 10/26/18 18:20 Blood Culture - Preliminary Blood-Thru Central Line NO GROWTH AFTER 3 DAYS Lab Studies 10/30/18 10/30/18 10/30/18 Range/Units 05:19 05:19 04:22 WBC 14.5 H (4.8-10.8) K/uL RBC 2.34 L (3.80-5.20) Mil/uL Hgb 7.3 L (12.0-16.0) g/dL Hct 22.5 L (34.0-47.0) % MCV 96.2 (81.0-99.0) fl MCH 31.0 (27.0-31.0) pg MCHC 32.3 L (33.0-37.0) g/dL RDW 18.5 H (11.5-14.5) % Plt Count 144 (130-400) K/uL MPV 10.4 (7.2-11.7) fl Neut % (Auto) 89.8 H (50.0-75.0) % Lymph % (Auto) 4.3 L (20.0-40.0) % Wise % (Auto) 5.6 (0.0-10.0) % Eos % (Auto) 0.1 (0.0-4.0) % Baso % (Auto) 0.2 (0.0-2.0) % Neut # (Auto) 13.0 H (1.8-7.0) K/uL Lymph # (Auto) 0.6 L (1.0-4.3) K/uL Wise # (Auto) 0.8 (0.0-0.8) K/uL Eos # (Auto) 0.0 (0.0-0.7) K/uL Baso # (Auto) 0.0 (0.0-0.2) K/uL Neutrophils % (Manual) 88 H (42-75) % Band Neutrophils % 3 H (0-2) % Lymphocytes % (Manual) 2 L (20-50) % Monocytes % (Manual) 7 (0-10) % Platelet Estimate Normal (NORMAL) Hypochromasia (manual) Moderate Anisocytosis (manual) Slight Tear Drop Cells Slight Ovalocytes Slight pCO2 28 L (35-45) mm/Hg pO2 100 (80-100) mm/Hg HCO3 21.0 (21-28) mmol/L ABG pH 7.43 (7.35-7.45) ABG Total CO2 19.5 L (22-28) mmol/L ABG O2 Saturation 98.9 H (95-98) % ABG O2 Content 10.6 L (15-23) ML/dL ABG Base Excess -5.0 L (-2.0-3.0) mmol/L ABG Hemoglobin 7.7 L (11.7-17.4) g/dL ABG Carboxyhemoglobin 0.7 (0.5-1.5) % POC ABG HHb (Measured) 1.1 (0.0-5.0) % ABG Methemoglobin 1.9 (0.0-3.0) % ABG O2 Capacity 10.7 L (16-24) mL/dL Frederic Test Yes A-a O2 Difference 115.0 mm/Hg Hgb O2 Saturation 96.4 (95.0-98.0) % Vent Mode A/c Mechanical Rate 12 FiO2 35.0 % Tidal Volume 450 PEEP 5 Sodium 134 (132-148) mmol/l Potassium 3.2 L (3.6-5.0) MMOL/L Chloride 105 (98-107) mmol/L Carbon Dioxide 19 L (22-30) mmol/L Anion Gap 13 (10-20) BUN 58 H (7-17) mg/dl Creatinine 0.8 (0.7-1.2) mg/dl Est GFR ( Amer) > 60 Est GFR (Non-Af Amer) > 60 Random Glucose 111 H (65-105) mg/dL Calcium 7.3 L (8.4-10.2) mg/dL Laboratory Results - last 24 hr 10/30/18 10/30/18 10/30/18 04:22 05:19 05:19 WBC 14.5 H RBC 2.34 L Hgb 7.3 L Hct 22.5 L MCV 96.2 MCH 31.0 MCHC 32.3 L RDW 18.5 H Plt Count 144 MPV 10.4 Neut % (Auto) 89.8 H Lymph % (Auto) 4.3 L Wise % (Auto) 5.6 Eos % (Auto) 0.1 Baso % (Auto) 0.2 Neut # (Auto) 13.0 H Lymph # (Auto) 0.6 L Wise # (Auto) 0.8 Eos # (Auto) 0.0 Baso # (Auto) 0.0 Neutrophils % (Manual) 88 H Band Neutrophils % 3 H Lymphocytes % (Manual) 2 L Monocytes % (Manual) 7 Platelet Estimate Normal Hypochromasia (manual) Moderate Anisocytosis (manual) Slight Tear Drop Cells Slight Ovalocytes Slight pCO2 28 L pO2 100 HCO3 21.0 ABG pH 7.43 ABG Total CO2 19.5 L ABG O2 Saturation 98.9 H ABG O2 Content 10.6 L ABG Base Excess -5.0 L ABG Hemoglobin 7.7 L ABG Carboxyhemoglobin 0.7 POC ABG HHb (Measured) 1.1 ABG Methemoglobin 1.9 ABG O2 Capacity 10.7 L Frederic Test Yes A-a O2 Difference 115.0 Hgb O2 Saturation 96.4 Vent Mode A/c Mechanical Rate 12 FiO2 35.0 Tidal Volume 450 PEEP 5 Sodium 134 Potassium 3.2 L Chloride 105 Carbon Dioxide 19 L Anion Gap 13 BUN 58 H Creatinine 0.8 Est GFR ( Amer) > 60 Est GFR (Non-Af Amer) > 60 Random Glucose 111 H Calcium 7.3 L Radiology Impressions: Radiology Impressions Chest X-Ray 10/30/18 06:00 IMPRESSION: Little interval change in bilateral pleural effusions, larger on the left and bibasilar airspace disease which may represent atelectasis/pneumonia. Stable position of tracheostomy tube and left central venous catheter. Critical Care Progress Note - Nutrition Nutrition: Nutrition Category Date Time Status NPO Diet [DIET] Diets 10/03/18 Breakfast Active Assessment/Plan (1) Severe sepsis Current Visit: Yes Status: Acute Priority: Medium Comment: Patient of antibiotic completed several courses most recent was IV Vancomycin 750 mg IVPB Q12, Fluconazole (Diflucan) 100 Mg IVPB DAILY and Meropenem 1 gm IVBP Q8H (2) Acute respiratory failure with hypoxia Current Visit: Yes Status: Acute Priority: High Comment: Intubated for hypoxemic respiratory failure S/P Tracheostomy strict I&O, Maintian negative fluid balance Continue diuresis as blood pressure permits She is not a candidate for spontaneous breathing since she is not clinically stable and very poor mental status Discussed with the mother at the bedside patient condition, poor prognosis, tr eatment plans and alternative Will schedule Pt for PEG (3) Congestive heart failure (CHF) Current Visit: Yes Status: Acute Priority: High Comment: Intubated for hypoxemic respiratory failure strict I&O, Maintian negative fluid balance Continue diuresis as blood pressure permits PRN Furosemide (Lasix) (4) DVT of lower extremity, bilateral Current Visit: No Status: Chronic Priority: Medium Comment: Patient with H/O provoked DVT and Pulmonary embolism She was Apixaban (Eliquis) 5 mg PO BID Now off due to bleeding from uterine cancer (5) Pulmonary embolism on left Current Visit: No Status: Chronic Priority: Medium Comment: Patient with H/O provoked DVT and Pulmonary embolism Continue Apixaban (Eliquis) 5 mg PO BID (6) Breast CA Current Visit: Yes Status: Acute Priority: High (7) Anemia Current Visit: Yes Status: Acute Priority: High Comment: Anemia is likely multifactorial from chronic disease and bleeding from uterine cancer Transfuse as needed Hematology oncology consult appreciated
--- NOTE | 2018-10-30 19:14 | CP.PCM.PN ---
Subjective - Date & Time of Evaluation Date of Evaluation: 10/30/18 Time of Evaluation: 15:00 - Subjective Subjective: SEEN ON RENAL F/U IN ICY NO CHANGE IN CLINICAL CONDITIONS INTUBATED .. SEDATED STILL ON LEVOPHED RENAL FUNCTION IMPROVED HYPONATREMIA AND HYPOKALEMIA NOTED Patient is 58 years old female with past medical history of anemia, anxiety, CHF, deep venous thrombosis, peripheral edema, pulmonary embolism and stage IV advanced metastatic breast cancer Status post chemotherapy 2 days ago Who initially presented to the emergency room on 09/03 for evaluation of intermittent chest pain and shortness of breath for the past 2 days In the emergency room patient stated that this chest pain resolved and breathing got better On exam she was comfortable and was admitted to the medical service Transfused 1 unit of packed red blood cell for hemoglobin of 6.9 also of note Patient recently underwent paracentesis 09/04 Patient was transferred to the intensive care unit after [employer]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 respiratory distress and hypoxemia and patient found to be confused and respiratory distress BP was stable but she was tachycardic, tachypneic and saturating 88% on non- rebreathing mask she is to receive a stat dose of IV Lasix and transferred to the intensive care unit Upon admitting to the to the ICU she was emergently intubated by anesthesia and mechanically ventilated Patient self extubated and she was in distress and she was reintubated ICU coursed for failure to extubate, and Patient S/P trach Currently patient is intubated via Tracheostomy, mechanically ventilated, On PRVC, TV 450, RR 20, FIO2 60% PEEP 5 Objective - Vital Signs/Intake and Output Vital Signs (last 24 hours): Temp Pulse Resp BP Pulse Ox 100.8 F H 128 H 19 99/65 L 100 10/30/18 15:34 10/30/18 18:00 10/30/18 18:00 10/30/18 18:00 10/30/18 18:00 Intake and Output: 10/30/18 10/31/18 18:59 06:59 Intake Total 2238 Output Total 510 Balance 1728 - Medications Medications: Current Medications Famotidine (Pepcid) 20 mg IVP Q12 [facility] Last Admin: 10/30/18 08:34 Dose: 20 mg Lactated Ringer's (Lactated Ringer's) 1,000 mls @ 50 mls/hr IV .Q20H [facility] Last Admin: 10/30/18 06:00 Dose: 50 mls/hr Micafungin Sodium 50 mg/ (Sodium Chloride) 100 mls @ 100 mls/hr IVPB DAILY [facility]; Protocol Last Admin: 10/30/18 08:28 Dose: 100 mls/hr Cefepime HCl 2 gm/ Sodium (Chloride) 100 mls @ 100 mls/hr IVPB Q12 [facility]; Protocol Vancomycin HCl 500 mg/ Sodium (Chloride) 100 mls @ 100 mls/hr IVPB Q12 [facility]; Protocol Midodrine (Proamatine) 10 mg PO TID [facility] Last Admin: 10/30/18 18:19 Dose: 10 mg - Labs Labs: 10/30/18 05:19 10/30/18 05:19 PT 16.8 Seconds (9.8-13.1) H 10/27/18 05:12 INR 1.5 10/27/18 05:12 APTT 29.4 Seconds (25.6-37.1) 10/26/18 13:37 Assessment and Plan - Assessment and Plan (Free Text) Assessment: LOUIE .. MAINLY PRE RENAL AXOTEMIA ELECTROLYTES ABNORMALITIES VDRF SEPSIS MMP P : C/O PRESENT CARE C/O CURRENT MANAGEMENT CARLEEN Sparrow
[2018-10-30] MEDS: Cefepime 2 GM in Sodium Chloride 0.9% 100 ML IVPB SCH (20:39)
--- NOTE | 2018-10-30 20:58 | CP.PCM.PN ---
Subjective - Date & Time of Evaluation Date of Evaluation: 10/26/18 Time of Evaluation: 13:00 - Subjective Subjective: Vented Objective - Vital Signs/Intake and Output Vital Signs (last 24 hours): Temp Pulse Resp BP Pulse Ox 100.8 F H 128 H 19 99/65 L 100 10/30/18 15:34 10/30/18 18:00 10/30/18 18:00 10/30/18 18:00 10/30/18 18:00 Intake and Output: 10/30/18 10/31/18 18:59 06:59 Intake Total 2238 Output Total 510 Balance 1728 - Medications Medications: Current Medications Famotidine (Pepcid) 20 mg IVP Q12 [facility] Last Admin: 10/30/18 20:45 Dose: 20 mg Lactated Ringer's (Lactated Ringer's) 1,000 mls @ 50 mls/hr IV .Q20H [facility] Last Admin: 10/30/18 06:00 Dose: 50 mls/hr Micafungin Sodium 50 mg/ (Sodium Chloride) 100 mls @ 100 mls/hr IVPB DAILY [facility]; Protocol Last Admin: 10/30/18 08:28 Dose: 100 mls/hr Cefepime HCl 2 gm/ Sodium (Chloride) 100 mls @ 100 mls/hr IVPB Q12 [facility]; Protocol Last Admin: 10/30/18 20:39 Dose: 100 mls/hr Vancomycin HCl 500 mg/ Sodium (Chloride) 100 mls @ 100 mls/hr IVPB Q12 [facility]; Protocol - Labs Labs: 10/30/18 05:19 10/30/18 05:19 PT 16.8 Seconds (9.8-13.1) H 10/27/18 05:12 INR 1.5 10/27/18 05:12 APTT 29.4 Seconds (25.6-37.1) 10/26/18 13:37 - Head Exam Head Exam: ATRAUMATIC - Eye Exam Eye Exam: Normal appearance - ENT Exam ENT Exam: Mucous Membranes Dry - Respiratory Exam Respiratory Exam: Decreased Breath Sounds - Cardiovascular Exam Cardiovascular Exam: +S1, +S2 - GI/Abdominal Exam GI & Abdominal Exam: Normal Bowel Sounds Assessment and Plan (1) Anemia Assessment & Plan: anemia of chronic disease [employer]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
--- NOTE | 2018-10-30 20:59 | CP.PCM.PN ---
Subjective - Date & Time of Evaluation Date of Evaluation: 10/27/18 Time of Evaluation: 17:00 - Subjective Subjective: Vented. Objective - Vital Signs/Intake and Output Vital Signs (last 24 hours): Temp Pulse Resp BP Pulse Ox 100.8 F H 128 H 19 99/65 L 100 10/30/18 15:34 10/30/18 18:00 10/30/18 18:00 10/30/18 18:00 10/30/18 18:00 Intake and Output: 10/30/18 10/31/18 18:59 06:59 Intake Total 2238 Output Total 510 Balance 1728 - Medications Medications: Current Medications Famotidine (Pepcid) 20 mg IVP Q12 [facility] Last Admin: 10/30/18 20:45 Dose: 20 mg Lactated Ringer's (Lactated Ringer's) 1,000 mls @ 50 mls/hr IV .Q20H [facility] Last Admin: 10/30/18 06:00 Dose: 50 mls/hr Micafungin Sodium 50 mg/ (Sodium Chloride) 100 mls @ 100 mls/hr IVPB DAILY [facility]; Protocol Last Admin: 10/30/18 08:28 Dose: 100 mls/hr Cefepime HCl 2 gm/ Sodium (Chloride) 100 mls @ 100 mls/hr IVPB Q12 [facility]; Protocol Last Admin: 10/30/18 20:39 Dose: 100 mls/hr Vancomycin HCl 500 mg/ Sodium (Chloride) 100 mls @ 100 mls/hr IVPB Q12 [facility]; Protocol - Labs Labs: 10/30/18 05:19 10/30/18 05:19 PT 16.8 Seconds (9.8-13.1) H 10/27/18 05:12 INR 1.5 10/27/18 05:12 APTT 29.4 Seconds (25.6-37.1) 10/26/18 13:37 - Head Exam Head Exam: ATRAUMATIC - Eye Exam Eye Exam: Normal appearance - ENT Exam ENT Exam: Mucous Membranes Dry - Respiratory Exam Respiratory Exam: Decreased Breath Sounds - Cardiovascular Exam Cardiovascular Exam: +S1, +S2 - GI/Abdominal Exam GI & Abdominal Exam: Normal Bowel Sounds - Extremities Exam Extremities Exam: Pedal Edema Assessment and Plan (1) Anemia Assessment & Plan: 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
--- NOTE | 2018-10-30 21:00 | CP.PCM.PN ---
Subjective - Date & Time of Evaluation Date of Evaluation: 10/28/18 Time of Evaluation: 18:00 - Subjective Subjective: Vented Objective - Vital Signs/Intake and Output Vital Signs (last 24 hours): Temp Pulse Resp BP Pulse Ox 100.8 F H 128 H 19 99/65 L 100 10/30/18 15:34 10/30/18 18:00 10/30/18 18:00 10/30/18 18:00 10/30/18 18:00 Intake and Output: 10/30/18 10/31/18 18:59 06:59 Intake Total 2238 Output Total 510 Balance 1728 - Medications Medications: Current Medications Famotidine (Pepcid) 20 mg IVP Q12 [facility] Last Admin: 10/30/18 20:45 Dose: 20 mg Lactated Ringer's (Lactated Ringer's) 1,000 mls @ 50 mls/hr IV .Q20H [facility] Last Admin: 10/30/18 06:00 Dose: 50 mls/hr Micafungin Sodium 50 mg/ (Sodium Chloride) 100 mls @ 100 mls/hr IVPB DAILY [facility]; Protocol Last Admin: 10/30/18 08:28 Dose: 100 mls/hr Cefepime HCl 2 gm/ Sodium (Chloride) 100 mls @ 100 mls/hr IVPB Q12 [facility]; Protocol Last Admin: 10/30/18 20:39 Dose: 100 mls/hr Vancomycin HCl 500 mg/ Sodium (Chloride) 100 mls @ 100 mls/hr IVPB Q12 [facility]; Protocol - Labs Labs: 10/30/18 05:19 10/30/18 05:19 PT 16.8 Seconds (9.8-13.1) H 10/27/18 05:12 INR 1.5 10/27/18 05:12 APTT 29.4 Seconds (25.6-37.1) 10/26/18 13:37 - Head Exam Head Exam: ATRAUMATIC - Eye Exam Eye Exam: Normal appearance - ENT Exam ENT Exam: Mucous Membranes Dry - Respiratory Exam Respiratory Exam: Decreased Breath Sounds - Cardiovascular Exam Cardiovascular Exam: +S1, +S2 - GI/Abdominal Exam GI & Abdominal Exam: Normal Bowel Sounds - Extremities Exam Extremities Exam: Pedal Edema Assessment and Plan (1) Anemia Assessment & Plan: anemia of chronic disease 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
--- NOTE | 2018-10-30 21:11 | CP.PCM.PN ---
Subjective - Date & Time of Evaluation Date of Evaluation: 10/30/18 Time of Evaluation: 19:00 - Subjective Subjective: Vented Objective - Vital Signs/Intake and Output Vital Signs (last 24 hours): Temp Pulse Resp BP Pulse Ox 100.8 F H 128 H 19 99/65 L 100 10/30/18 15:34 10/30/18 18:00 10/30/18 18:00 10/30/18 18:00 10/30/18 18:00 Intake and Output: 10/30/18 10/31/18 18:59 06:59 Intake Total 2238 Output Total 510 Balance 1728 - Medications Medications: Current Medications Famotidine (Pepcid) 20 mg IVP Q12 [facility] Last Admin: 10/30/18 20:45 Dose: 20 mg Lactated Ringer's (Lactated Ringer's) 1,000 mls @ 50 mls/hr IV .Q20H [facility] Last Admin: 10/30/18 06:00 Dose: 50 mls/hr Micafungin Sodium 50 mg/ (Sodium Chloride) 100 mls @ 100 mls/hr IVPB DAILY [facility]; Protocol Last Admin: 10/30/18 08:28 Dose: 100 mls/hr Cefepime HCl 2 gm/ Sodium (Chloride) 100 mls @ 100 mls/hr IVPB Q12 [facility]; Protocol Last Admin: 10/30/18 20:39 Dose: 100 mls/hr Vancomycin HCl 500 mg/ Sodium (Chloride) 100 mls @ 100 mls/hr IVPB Q12 [facility]; Protocol Last Admin: 10/30/18 21:04 Dose: 100 mls/hr - Labs Labs: 10/30/18 05:19 10/30/18 05:19 PT 16.8 Seconds (9.8-13.1) H 10/27/18 05:12 INR 1.5 10/27/18 05:12 APTT 29.4 Seconds (25.6-37.1) 10/26/18 13:37 - Head Exam Head Exam: ATRAUMATIC - Eye Exam Eye Exam: Normal appearance - ENT Exam ENT Exam: Mucous Membranes Dry - Respiratory Exam Respiratory Exam: Decreased Breath Sounds - Cardiovascular Exam Cardiovascular Exam: +S1, +S2 - GI/Abdominal Exam GI & Abdominal Exam: Normal Bowel Sounds - Extremities Exam Extremities Exam: Pedal Edema Assessment and Plan (1) Anemia Assessment & Plan: anemia of chronic disease 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
--- NOTE | 2018-10-30 21:15 | CP.PCM.PN ---
Subjective - Date & Time of Evaluation Date of Evaluation: 10/30/18 Time of Evaluation: 19:10 - Subjective Subjective: NO New change Objective - Vital Signs/Intake and Output Vital Signs (last 24 hours): Temp Pulse Resp BP Pulse Ox 100.8 F H 128 H 19 99/65 L 100 10/30/18 15:34 10/30/18 18:00 10/30/18 18:00 10/30/18 18:00 10/30/18 18:00 Intake and Output: 10/30/18 10/31/18 18:59 06:59 Intake Total 2238 Output Total 510 Balance 1728 - Medications Medications: Current Medications Famotidine (Pepcid) 20 mg IVP Q12 [facility] Last Admin: 10/30/18 20:45 Dose: 20 mg Lactated Ringer's (Lactated Ringer's) 1,000 mls @ 50 mls/hr IV .Q20H [facility] Last Admin: 10/30/18 06:00 Dose: 50 mls/hr Micafungin Sodium 50 mg/ (Sodium Chloride) 100 mls @ 100 mls/hr IVPB DAILY [facility]; Protocol Last Admin: 10/30/18 08:28 Dose: 100 mls/hr Cefepime HCl 2 gm/ Sodium (Chloride) 100 mls @ 100 mls/hr IVPB Q12 [facility]; Protocol Last Admin: 10/30/18 20:39 Dose: 100 mls/hr Vancomycin HCl 500 mg/ Sodium (Chloride) 100 mls @ 100 mls/hr IVPB Q12 [facility]; Protocol Last Admin: 10/30/18 21:04 Dose: 100 mls/hr - Labs Labs: 10/30/18 05:19 10/30/18 05:19 PT 16.8 Seconds (9.8-13.1) H 10/27/18 05:12 INR 1.5 10/27/18 05:12 APTT 29.4 Seconds (25.6-37.1) 10/26/18 13:37 Assessment and Plan (1) Anasarca Status: Acute (2) Septic shock Status: Resolved (3) Multiple organ dysfunction syndrome Status: Acute (4) Acute respiratory failure with hypoxemia Status: Acute (5) Thrombocytopenia Status: Resolved (6) Ascites, malignant Status: Acute (7) Congestive heart failure (CHF) Status: Acute (8) Stage IV breast cancer in female Status: Acute (9) Severe anemia Status: Resolved (10) DVT of lower extremity, bilateral Status: Chronic - Assessment and Plan (Free Text) Plan: Poor Prognosis Continue current care
[2018-10-31 04:21] LABS: ABG ALLEN TEST YES; ARTERIAL BLOOD GAS HEMOGLOBIN 7.8 g/dL (11.7-17.4); ARTERIAL BLOOD GAS O2 CAPACITY 10.9 mL/dL (16-24); ARTERIAL BLOOD GAS O2 CONTENT 10.8 ML/dL (15-23); ARTERIAL BLOOD GAS O2 SAT 98.9 % (95-98); ARTERIAL BLOOD GAS PCO2 28 mm/Hg (35-45); ARTERIAL BLOOD GAS PH 7.43 (7.35-7.45); ARTERIAL BLOOD GAS PO2 96 mm/Hg (80-100); ARTERIAL BLOOD GAS TCO2 19.5 mmol/L (22-28)
[2018-10-31 05:30] LABS: BASO % 0.2 % (0.0-2.0); EOS % 0.2 % (0.0-4.0); HEMOGLOBIN 7.4 g/dL (12.0-16.0); LYMPH # 0.7 K/uL (1.0-4.3); LYMPH % 4.7 % (20.0-40.0); MEAN CELL VOLUME 96.5 fl (81.0-99.0); MEAN CORPUSCULAR HEMOGLOBIN 30.8 pg (27.0-31.0); MEAN CORPUSCULAR HGB CONC 31.9 g/dL (33.0-37.0); MEAN PLATELET VOLUME 10.3 fl (7.2-11.7); MONO % 6.7 % (0.0-10.0); NEUT # 13.2 K/uL (1.8-7.0); NEUT % 88.2 % (50.0-75.0); RBC 2.4 Mil/uL (3.80-5.20); RED CELL DISTRIBUTION WIDTH 18.5 % (11.5-14.5); WHITE BLOOD COUNT 14.9 K/uL (4.8-10.8)
[2018-10-31 05:37] LABS: BLOOD UREA NITROGEN 54 mg/dl (7-17); CALCIUM 7.3 mg/dL (8.4-10.2); GFR NON-AFRICAN AMERICAN > 60
[2018-10-31] MEDS: Lactated Ringer's 1,000 ML IV SCH (05:45)
[2018-10-31] MEDS: Cefepime 2 GM in Sodium Chloride 0.9% 100 ML IVPB SCH ×2 (09:02→21:59)
--- NOTE | 2018-10-31 10:07 | CP.PCM.PN ---
Subjective - Date & Time of Evaluation Date of Evaluation: 10/31/18 Time of Evaluation: 10:06 - Subjective Subjective: ID Note- Patient seen and examined today in ICU. no new events overnight. remains on the vent and on levophed. opens eyes but does not follow any commands. Objective - Vital Signs/Intake and Output Vital Signs (last 24 hours): Temp Pulse Resp BP Pulse Ox 99.9 F H 125 H 14 99/52 L 100 10/31/18 08:00 10/31/18 09:00 10/31/18 09:00 10/31/18 09:00 10/31/18 09:00 Intake and Output: 10/31/18 10/31/18 06:59 18:59 Intake Total 1755 206 Output Total 400 Balance 1355 206 - Medications Medications: Current Medications Famotidine (Pepcid) 20 mg IVP Q12 [facility] Last Admin: 10/31/18 09:04 Dose: 20 mg Lactated Ringer's (Lactated Ringer's) 1,000 mls @ 50 mls/hr IV .Q20H [facility] Last Admin: 10/31/18 05:45 Dose: 50 mls/hr Micafungin Sodium 50 mg/ (Sodium Chloride) 100 mls @ 100 mls/hr IVPB DAILY [facility]; Protocol Last Admin: 10/31/18 09:53 Dose: 100 mls/hr Cefepime HCl 2 gm/ Sodium (Chloride) 100 mls @ 100 mls/hr IVPB Q12 [facility]; Protocol Last Admin: 10/31/18 09:02 Dose: 100 mls/hr Vancomycin HCl 500 mg/ Sodium (Chloride) 100 mls @ 100 mls/hr IVPB Q12 [facility]; Protocol Last Admin: 10/30/18 21:04 Dose: 100 mls/hr Norepinephrine Bitartrate 16 (mg/ Dextrose) 266 mls @ 19.95 mls/hr IV .[id number] ONE; Protocol Stop: 10/31/18 13:37 Last Admin: 10/31/18 01:05 Dose: 20 mcg/min, 19.95 mls/hr - Labs Labs: - Additional Findings Additional findings: - Constitutional Appears: Chronically Ill Additional comments: - ENT Exam Additional comments: s/p trache - Respiratory Exam Additional comments: On the vent via Trach decreased breath sounds on left side - Cardiovascular Exam Cardiovascular Exam: Tachycardia, +S1, +S2 - GI/Abdominal Exam Additional comments: distended , soft hypoactive BS + ascites - Extremities Exam Additional comments: b/l 2+ edema in LE and UE - Neurological Exam Additional comments: does not follow any commands Laboratory Results - last 72 hr 10/29/18 10/29/18 10/29/18 04:30 04:30 05:06 WBC 14.5 H RBC 2.48 L Hgb 7.6 L Hct 23.8 L MCV 96.0 MCH 30.8 MCHC 32.1 L RDW 18.5 H Plt Count 156 MPV Neut % (Auto) Lymph % (Auto) Edgar % (Auto) Eos % (Auto) Baso % (Auto) Neut # (Auto) Lymph # (Auto) Edgar # (Auto) Eos # (Auto) Baso # (Auto) Neutrophils % (Manual) Band Neutrophils % Lymphocytes % (Manual) Monocytes % (Manual) Platelet Estimate Hypochromasia (manual) Anisocytosis (manual) Tear Drop Cells Ovalocytes pCO2 28 L pO2 94 HCO3 20.2 L ABG pH 7.41 ABG Total CO2 18.6 L ABG O2 Saturation 100.6 H ABG O2 Content 11.1 L ABG Base Excess -6.1 L ABG Hemoglobin 8.0 L ABG Carboxyhemoglobin 2.0 H POC ABG HHb (Measured) -0.6 L ABG Methemoglobin 1.2 ABG O2 Capacity 11.0 L Frederic Test Yes A-a O2 Difference 121.0 Hgb O2 Saturation 97.4 Vent Mode A/c Mechanical Rate 12 FiO2 35.0 Tidal Volume 450 PEEP 5 Sodium 134 Potassium 3.3 L Chloride 105 Carbon Dioxide 21 L Anion Gap 11 BUN 59 H Creatinine 0.9 Est GFR ( Amer) > 60 Est GFR (Non-Af Amer) > 60 Random Glucose 114 H Calcium 7.4 L Total Bilirubin 0.3 AST 16 ALT 22 Alkaline Phosphatase 87 Total Protein 4.5 L Albumin 1.8 L Globulin 2.7 Albumin/Globulin Ratio 0.7 L 10/30/18 10/30/18 10/30/18 04:22 05:19 05:19 WBC 14.5 H RBC 2.34 L Hgb 7.3 L Hct 22.5 L MCV 96.2 MCH 31.0 MCHC 32.3 L RDW 18.5 H Plt Count 144 MPV 10.4 Neut % (Auto) 89.8 H Lymph % (Auto) 4.3 L Edgar % (Auto) 5.6 Eos % (Auto) 0.1 Baso % (Auto) 0.2 Neut # (Auto) 13.0 H Lymph # (Auto) 0.6 L Edgar # (Auto) 0.8 Eos # (Auto) 0.0 Baso # (Auto) 0.0 Neutrophils % (Manual) 88 H Band Neutrophils % 3 H Lymphocytes % (Manual) 2 L Monocytes % (Manual) 7 Platelet Estimate Normal Hypochromasia (manual) Moderate Anisocytosis (manual) Slight Tear Drop Cells Slight Ovalocytes Slight pCO2 28 L pO2 100 HCO3 21.0 ABG pH 7.43 ABG Total CO2 19.5 L ABG O2 Saturation 98.9 H ABG O2 Content 10.6 L ABG Base Excess -5.0 L ABG Hemoglobin 7.7 L ABG Carboxyhemoglobin 0.7 POC ABG HHb (Measured) 1.1 ABG Methemoglobin 1.9 ABG O2 Capacity 10.7 L Frederic Test Yes A-a O2 Difference 115.0 Hgb O2 Saturation 96.4 Vent Mode A/c Mechanical Rate 12 FiO2 35.0 Tidal Volume 450 PEEP 5 Sodium 134 Potassium 3.2 L Chloride 105 Carbon Dioxide 19 L Anion Gap 13 BUN 58 H Creatinine 0.8 Est GFR ( Amer) > 60 Est GFR (Non-Af Amer) > 60 Random Glucose 111 H Calcium 7.3 L Total Bilirubin AST ALT Alkaline Phosphatase Total Protein Albumin Globulin Albumin/Globulin Ratio 10/31/18 10/31/18 10/31/18 04:10 05:05 05:05 WBC 14.9 H RBC 2.40 L Hgb 7.4 L Hct 23.2 L MCV 96.5 MCH 30.8 MCHC 31.9 L RDW 18.5 H Plt Count 132 MPV 10.3 Neut % (Auto) 88.2 H Lymph % (Auto) 4.7 L Edgar % (Auto) 6.7 Eos % (Auto) 0.2 Baso % (Auto) 0.2 Neut # (Auto) 13.2 H Lymph # (Auto) 0.7 L Edgar # (Auto) 1.0 H Eos # (Auto) 0.0 Baso # (Auto) 0.0 Neutrophils % (Manual) Band Neutrophils % Lymphocytes % (Manual) Monocytes % (Manual) Platelet Estimate Hypochromasia (manual) Anisocytosis (manual) Tear Drop Cells Ovalocytes pCO2 28 L pO2 96 HCO3 21.0 ABG pH 7.43 ABG Total CO2 19.5 L ABG O2 Saturation 98.9 H ABG O2 Content 10.8 L ABG Base Excess -5.0 L ABG Hemoglobin 7.8 L ABG Carboxyhemoglobin 0.7 POC ABG HHb (Measured) 1.1 ABG Methemoglobin 1.7 ABG O2 Capacity 10.9 L Frederic Test Yes A-a O2 Difference 119.0 Hgb O2 Saturation 96.6 Vent Mode A/c Mechanical Rate 12 FiO2 35.0 Tidal Volume 450 PEEP 5 Sodium 133 Potassium 3.8 Chloride 105 Carbon Dioxide 18 L Anion Gap 14 BUN 54 H Creatinine 0.8 Est GFR ( Amer) > 60 Est GFR (Non-Af Amer) > 60 Random Glucose 135 H Calcium 7.3 L Total Bilirubin AST ALT Alkaline Phosphatase Total Protein Albumin Globulin Albumin/Globulin Ratio Microbiology 10/21/18 08:00 Urine,Catheterized Urine Culture - Final Alida Lipolytica 10/26/18 18:20 Blood-Thru Central Line Blood Culture - Preliminary NO GROWTH AFTER 4 DAYS 10/29/18 14:40 Blood-Venous Blood Culture - Preliminary NO GROWTH AFTER 24 HOURS 10/29/18 14:30 Blood-Venous Blood Culture - Preliminary NO GROWTH AFTER 24 HOURS 10/27/18 14:00 Blood-Thru Central Line Blood Culture - Preliminary NO GROWTH AFTER 3 DAYS 10/18/18 11:55 Blood-Thru Central Line Blood Culture - Final NO GROWTH AFTER 5 DAYS 10/18/18 11:55 Blood-Thru Central Line Gram Stain - Final TEST NOT PERFORMED 10/05/18 06:15 Blood Blood Culture - Final NO GROWTH AFTER 5 DAYS 10/05/18 06:15 Blood Gram Stain - Final TEST NOT PERFORMED 10/05/18 06:30 Blood Blood Culture - Final NO GROWTH AFTER 5 DAYS 10/05/18 06:30 Blood Gram Stain - Final TEST NOT PERFORMED 10/05/18 07:10 Urine,Hardwick Urine Culture - Final Yeast Species 09/25/18 12:10 Blood-Thru Central Line Blood Culture - Final NO GROWTH AFTER 5 DAYS 09/25/18 12:10 Blood-Thru Central Line Gram Stain - Final TEST NOT PERFORMED 09/20/18 14:00 Blood-Thru Central Line Blood Culture - Final NO GROWTH AFTER 5 DAYS 09/20/18 17:53 Trachasp Gram Stain - Final 09/20/18 17:53 Trachasp Sputum Culture - Final Yeast Species 09/20/18 17:53 Urine,Hardwick Urine Culture - Final No Growth (<1,000 CFU/ML) 09/15/18 15:35 Blood-Thru Central Line Blood Culture - Final NO GROWTH AFTER 5 DAYS 09/15/18 15:35 Blood-Thru Central Line Gram Stain - Final TEST NOT PERFORMED 09/15/18 15:25 Blood-Thru Central Line Blood Culture - Final NO GROWTH AFTER 5 DAYS 09/15/18 15:25 Blood-Thru Central Line Gram Stain - Final TEST NOT PERFORMED 09/08/18 11:49 Blood-Venous Blood Culture - Final NO GROWTH AFTER 5 DAYS 09/08/18 11:49 Blood-Venous Gram Stain - Final TEST NOT PERFORMED 09/08/18 11:49 Blood-Venous Blood Culture - Final NO GROWTH AFTER 5 DAYS 09/08/18 11:49 Blood-Venous Gram Stain - Final TEST NOT PERFORMED 09/07/18 Unknown Blood-Thru Central Line Blood Culture - Final NO GROWTH AFTER 5 DAYS 09/07/18 Unknown Blood-Thru Central Line Gram Stain - Final TEST NOT PERFORMED 09/07/18 Unknown Blood-Thru Central Line Blood Culture - Final NO GROWTH AFTER 5 DAYS 09/07/18 Unknown Blood-Thru Central Line Gram Stain - Final TEST NOT PERFORMED 09/07/18 09:07 Trachasp Gram Stain - Final 09/07/18 09:07 Trachasp Sputum Culture - Final Yeast Species 09/04/18 11:25 Naris MRSA Culture (Admit) - Final MRSA NOT DETECTED 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 remains on the vent remains on levophed afebrile today. leukocytosis slightly increased today. blood cx- neg x 11 trach asp cx- yeast ( treated) stool c.diff- negative repeat UA- negative repeat urine cx- yeast ( treated) hardwick removed 4 days ago repeat urine cx - yeast finally ID as alida lipolytica ( hardwick was removed a week ago). cxr - once gain left pleural effusion and possible infiltrate as per report as well- VAP PLan- had been off antibiotics for past 10 days since her leukocytosis had resolved and was afebrile and had already completed 38 days of meropnem , 34 days of fluconazole, 25 days of vanco (empirically). check trach asp cx. restarted abx yesterday in light of her remaining on the vent and pleural effusion and her immunocompromised status secondary to metastastatic cancer to cover for VAP . continue with vanco and cefepime day #2. keep vanco trough <15. continue with micafungin as well for C.Lipolytica in urine cx.day #5. advise check 2 more blood cx as well. prognosis poor. critical care time spent 30 minutes.
--- NOTE | 2018-10-31 11:45 | CP.CCUPN ---
CCU Subjective - Physician Review Subjective (Free Text): 10/31/18 11:32 The patient was Seen and examined by me at the bedside, Medical records reviewed and Management issues were discussed and formulated with the house staff. Events reviewed Patient is 58 years old female with past medical history of anemia, anxiety, CHF, deep venous thrombosis, peripheral edema, pulmonary embolism and stage IV advanced metastatic breast cancer Status post chemotherapy 2 days ago Who initially presented to the emergency room on 09/03 for evaluation of intermittent chest pain and shortness of breath for the past 2 days In the emergency room patient stated that this chest pain resolved and breathing got better On exam she was comfortable and was admitted to the medical service Transfused 1 unit of packed red blood cell for hemoglobin of 6.9 also of note Patient recently underwent paracentesis 09/04 Patient was transferred to the intensive care unit after MECHANICAL TECH was called for severe respiratory distress and hypoxemia and patient found to be confused and respiratory distress BP was stable but she was tachycardic, tachypneic and saturating 88% on non- rebreathing mask she is to receive a stat dose of IV Lasix and transferred to the intensive care unit Upon admitting to the to the ICU she was emergently intubated by anesthesia and mechanically ventilated Patient self extubated and she was in distress and she was reintubated ICU coursed for failure to extubate, and Patient S/P trach Currently patient is intubated via Tracheostomy, mechanically ventilated, On PRVC, TV 450, RR 20, FIO2 60% PEEP 5 No improvement of mental status, Off all sedation She looks comfortable and in no distress Sometimes tachypnic, requiring PRN Ativan Improved oxygenation blood pressure boarderline, remains on Levophed at 10 mcg/min + Sepsis better controlled AFebrile today, Tmx 100.8 + Tachycardia, electrolyte including potassium and magnesium was repleted + Fluid overload on exam, PRN Furosemide (Lasix), will give 12.5 gm albumin followed by IV Lasix Most recent Blood 10/18 negative, and Most recent urine 10/05 and 10/21 C/S + yeast This morning labs revealed Persistent Leucocytosis 14.7, Stable renal function BUN/Cr 67/0.8 and Plat count 152K, Hypernatremia improving Na 133, Will decrease free water flush to 100cc Q 6H Patient remains critically ill, hemodynamically unstable, several attempts to wean off the Levophed was unsuccessful she received albumin in the past but she remains on high vasopressor requirement, also attempt to start the patient on Miodrin but it is listed on the patient allergies since she has received it during this hospital stay and she developed a rash (it was unclear at that time if the allergic reaction is from Midrin or from from Phil-Synephrine) Discussed with the mother at the bedside patient condition, poor prognosis, treatment plans and alternative Several Family meetings held with palliative care nurse and the mother, The mother is determined that she wants everything to be done for the patient, Radha to remains full code and she wants pursuing PEG and possible LTAC/Vent unit placement Discussed patient case with java flex developer and the plan is for PEG tube placement on hold for now due to recurrent ascites, patient with malignant ascites status post Pararacentesis multiple times on the current admission, most recent paracentesis was on September 28 with 3.6 L drained. 10/26/2018: Bilateral lower extremity venous duplex Doppler. COMPARISON: 08/29/2018. IMPRESSION: 1. Chronic partially occlusive thrombus in the right common femoral and proximal superficial femoral veins with loss of compressibility of veins. 2. Chronic partially occlusive thrombus in the left common femoral and proximal superficial femoral veins with partial loss of compressibility of the veins. 3. No evidence of deep venous thrombosis in the distal superficial femoral, popliteal and posterior tibial veins. CCU Objective - Vital Signs / Intake & Output Vital Signs (Last 4 hours): Vital Signs Temp Pulse Resp BP Pulse Ox 10/31/18 09:00 125 H 14 99/52 L 100 10/31/18 08:00 99.9 F H 120 H 18 93/52 L 100 Intake and Output (Last 8hrs): Intake & Output 10/30/18 10/31/18 10/31/18 22:59 06:59 14:59 Intake Total 1629 1240 206 Output Total 500 400 Balance 1129 840 206 Weight 154 lb 12.8 oz Intake: IV 664 340 136 Intake, Piggyback 120 320 Tube Feeding 245 280 70 Free Water Flush 600 300 Output: Urine 500 400 Straight 500 Urethral (Orellana) 400 - Physical Exam Head: Positive for: Atraumatic, Normocephalic Pupils: Positive for: PERRL Extroacular Muscles: Positive for: EOMI Conjunctiva: Negative for: Injected, Icteric Ears: Positive for: Normal Mouth: Positive for: Moist Mucous Membranes Nose (Internal): Positive for: Normal Inspection Neck: Positive for: Normal Range of Motion, Trachea Midline, Other (tracheostomy) Respiratory/Chest: Positive for: Good Air Exchange, Rales, Retracting, Rhonchi. Negative for: Accessory Muscle Use, Wheezes, Tachypneic Cardiovascular: Positive for: Regular Rate and Rhythm, Normal S1, S2, Peripheal Pulses Present. Negative for: Murmurs, Irregular Rhythm, Tachycardic, Bradycardic Abdomen: Positive for: Normal Bowel Sounds Breast/Axillary: Positive for: Other (fungating necrotic mass to Right Breast) Upper Extremity: Positive for: Edema, NORMAL PULSES Lower Extremity: Positive for: Edema, NORMAL PULSES. Negative for: Normal Inspection Neurological: Positive for: Other (on ventilator, opens eyes to verbal stimuli) Psychiatric: Negative for: Alert - Medications Active Medications: Active Medications Generic Name Dose Route Start Last Admin Trade Name Freq PRN Reason Stop Dose Admin Famotidine 20 mg 10/25/18 21:00 10/31/18 09:04 Pepcid IVP 20 mg Q12 GLADIS Administration Lactated Ringer's 1,000 mls @ 50 mls/hr 10/26/18 12:45 10/31/18 05:45 Lactated Ringer's IV 50 mls/hr .Q20H GLADIS Administration Micafungin Sodium 50 mg/ 100 mls @ 100 mls/hr 10/27/18 09:00 10/31/18 09:53 Sodium Chloride IVPB 100 mls/hr DAILY GLADIS Administration Protocol Cefepime HCl 2 gm/ Sodium 100 mls @ 100 mls/hr 10/30/18 21:00 10/31/18 09:02 Chloride IVPB 100 mls/hr Q12 GLADIS Administration Protocol Vancomycin HCl 500 mg/ Sodium 100 mls @ 100 mls/hr 10/30/18 21:00 10/30/18 21:04 Chloride IVPB 100 mls/hr Q12 GLADIS Administration Protocol Norepinephrine Bitartrate 16 266 mls @ 19.95 mls/hr 10/31/18 00:18 10/31/18 01:05 mg/ Dextrose IV 10/31/18 13:37 20 mcg/min .[id number] ONE 19.95 mls/hr Administration Protocol 20 MCG/MIN - Patient Studies Lab Studies: Microbiology Studies 10/26/18 18:20 Blood Culture - Preliminary Blood-Thru Central Line NO GROWTH AFTER 4 DAYS 10/29/18 14:40 Blood Culture - Preliminary Blood-Venous NO GROWTH AFTER 24 HOURS 10/29/18 14:30 Blood Culture - Preliminary Blood-Venous NO GROWTH AFTER 24 HOURS 10/27/18 14:00 Blood Culture - Preliminary Blood-Thru Central Line NO GROWTH AFTER 3 DAYS Lab Studies 10/31/18 10/31/18 10/31/18 Range/Units 05:05 05:05 04:10 WBC 14.9 H (4.8-10.8) K/uL RBC 2.40 L (3.80-5.20) Mil/uL Hgb 7.4 L (12.0-16.0) g/dL Hct 23.2 L (34.0-47.0) % MCV 96.5 (81.0-99.0) fl MCH 30.8 (27.0-31.0) pg MCHC 31.9 L (33.0-37.0) g/dL RDW 18.5 H (11.5-14.5) % Plt Count 132 (130-400) K/uL MPV 10.3 (7.2-11.7) fl Neut % (Auto) 88.2 H (50.0-75.0) % Lymph % (Auto) 4.7 L (20.0-40.0) % [place] % (Auto) 6.7 (0.0-10.0) % Eos % (Auto) 0.2 (0.0-4.0) % Baso % (Auto) 0.2 (0.0-2.0) % Neut # (Auto) 13.2 H (1.8-7.0) K/uL Lymph # (Auto) 0.7 L (1.0-4.3) K/uL [place] # (Auto) 1.0 H (0.0-0.8) K/uL Eos # (Auto) 0.0 (0.0-0.7) K/uL Baso # (Auto) 0.0 (0.0-0.2) K/uL Neutrophils % (Manual) (42-75) % Band Neutrophils % (0-2) % Lymphocytes % (Manual) (20-50) % Monocytes % (Manual) (0-10) % Platelet Estimate (NORMAL) Hypochromasia (manual) Anisocytosis (manual) Tear Drop Cells Ovalocytes pCO2 28 L (35-45) mm/Hg pO2 96 (80-100) mm/Hg HCO3 21.0 (21-28) mmol/L ABG pH 7.43 (7.35-7.45) ABG Total CO2 19.5 L (22-28) mmol/L ABG O2 Saturation 98.9 H (95-98) % ABG O2 Content 10.8 L (15-23) ML/dL ABG Base Excess -5.0 L (-2.0-3.0) mmol/L ABG Hemoglobin 7.8 L (11.7-17.4) g/dL ABG Carboxyhemoglobin 0.7 (0.5-1.5) % POC ABG HHb (Measured) 1.1 (0.0-5.0) % ABG Methemoglobin 1.7 (0.0-3.0) % ABG O2 Capacity 10.9 L (16-24) mL/dL Frederic Test Yes A-a O2 Difference 119.0 mm/Hg Hgb O2 Saturation 96.6 (95.0-98.0) % Vent Mode A/c Mechanical Rate 12 FiO2 35.0 % Tidal Volume 450 PEEP 5 Sodium 133 (132-148) mmol/l Potassium 3.8 (3.6-5.0) MMOL/L Chloride 105 (98-107) mmol/L Carbon Dioxide 18 L (22-30) mmol/L Anion Gap 14 (10-20) BUN 54 H (7-17) mg/dl Creatinine 0.8 (0.7-1.2) mg/dl Est GFR ( Amer) > 60 Est GFR (Non-Af Amer) > 60 Random Glucose 135 H (65-105) mg/dL Calcium 7.3 L (8.4-10.2) mg/dL 10/30/18 Range/Units 05:19 WBC (4.8-10.8) K/uL RBC (3.80-5.20) Mil/uL Hgb (12.0-16.0) g/dL Hct (34.0-47.0) % MCV (81.0-99.0) fl MCH (27.0-31.0) pg MCHC (33.0-37.0) g/dL RDW (11.5-14.5) % Plt Count (130-400) K/uL MPV (7.2-11.7) fl Neut % (Auto) (50.0-75.0) % Lymph % (Auto) (20.0-40.0) % [place] % (Auto) (0.0-10.0) % Eos % (Auto) (0.0-4.0) % Baso % (Auto) (0.0-2.0) % Neut # (Auto) (1.8-7.0) K/uL Lymph # (Auto) (1.0-4.3) K/uL [place] # (Auto) (0.0-0.8) K/uL Eos # (Auto) (0.0-0.7) K/uL Baso # (Auto) (0.0-0.2) K/uL Neutrophils % (Manual) 88 H (42-75) % Band Neutrophils % 3 H (0-2) % Lymphocytes % (Manual) 2 L (20-50) % Monocytes % (Manual) 7 (0-10) % Platelet Estimate Normal (NORMAL) Hypochromasia (manual) Moderate Anisocytosis (manual) Slight Tear Drop Cells Slight Ovalocytes Slight pCO2 (35-45) mm/Hg pO2 (80-100) mm/Hg HCO3 (21-28) mmol/L ABG pH (7.35-7.45) ABG Total CO2 (22-28) mmol/L ABG O2 Saturation (95-98) % ABG O2 Content (15-23) ML/dL ABG Base Excess (-2.0-3.0) mmol/L ABG Hemoglobin (11.7-17.4) g/dL ABG Carboxyhemoglobin (0.5-1.5) % POC ABG HHb (Measured) (0.0-5.0) % ABG Methemoglobin (0.0-3.0) % ABG O2 Capacity (16-24) mL/dL Frederic Test A-a O2 Difference mm/Hg Hgb O2 Saturation (95.0-98.0) % Vent Mode Mechanical Rate FiO2 % Tidal Volume PEEP Sodium (132-148) mmol/l Potassium (3.6-5.0) MMOL/L Chloride (98-107) mmol/L Carbon Dioxide (22-30) mmol/L Anion Gap (10-20) BUN (7-17) mg/dl Creatinine (0.7-1.2) mg/dl Est GFR ( Amer) Est GFR (Non-Af Amer) Random Glucose (65-105) mg/dL Calcium (8.4-10.2) mg/dL Laboratory Results - last 24 hr 10/30/18 10/31/18 10/31/18 05:19 04:10 05:05 WBC 14.9 H RBC 2.40 L Hgb 7.4 L Hct 23.2 L MCV 96.5 MCH 30.8 MCHC 31.9 L RDW 18.5 H Plt Count 132 MPV 10.3 Neut % (Auto) 88.2 H Lymph % (Auto) 4.7 L [place] % (Auto) 6.7 Eos % (Auto) 0.2 Baso % (Auto) 0.2 Neut # (Auto) 13.2 H Lymph # (Auto) 0.7 L [place] # (Auto) 1.0 H Eos # (Auto) 0.0 Baso # (Auto) 0.0 Neutrophils % (Manual) 88 H Band Neutrophils % 3 H Lymphocytes % (Manual) 2 L Monocytes % (Manual) 7 Platelet Estimate Normal Hypochromasia (manual) Moderate Anisocytosis (manual) Slight Tear Drop Cells Slight Ovalocytes Slight pCO2 28 L pO2 96 HCO3 21.0 ABG pH 7.43 ABG Total CO2 19.5 L ABG O2 Saturation 98.9 H ABG O2 Content 10.8 L ABG Base Excess -5.0 L ABG Hemoglobin 7.8 L ABG Carboxyhemoglobin 0.7 POC ABG HHb (Measured) 1.1 ABG Methemoglobin 1.7 ABG O2 Capacity 10.9 L Frederic Test Yes A-a O2 Difference 119.0 Hgb O2 Saturation 96.6 Vent Mode A/c Mechanical Rate 12 FiO2 35.0 Tidal Volume 450 PEEP 5 Sodium Potassium Chloride Carbon Dioxide Anion Gap BUN Creatinine Est GFR ( Amer) Est GFR (Non-Af Amer) Random Glucose Calcium 10/31/18 05:05 WBC RBC Hgb Hct MCV MCH MCHC RDW Plt Count MPV Neut % (Auto) Lymph % (Auto) [place] % (Auto) Eos % (Auto) Baso % (Auto) Neut # (Auto) Lymph # (Auto) [place] # (Auto) Eos # (Auto) Baso # (Auto) Neutrophils % (Manual) Band Neutrophils % Lymphocytes % (Manual) Monocytes % (Manual) Platelet Estimate Hypochromasia (manual) Anisocytosis (manual) Tear Drop Cells Ovalocytes pCO2 pO2 HCO3 ABG pH ABG Total CO2 ABG O2 Saturation ABG O2 Content ABG Base Excess ABG Hemoglobin ABG Carboxyhemoglobin POC ABG HHb (Measured) ABG Methemoglobin ABG O2 Capacity Frederic Test A-a O2 Difference Hgb O2 Saturation Vent Mode Mechanical Rate FiO2 Tidal Volume PEEP Sodium 133 Potassium 3.8 Chloride 105 Carbon Dioxide 18 L Anion Gap 14 BUN 54 H Creatinine 0.8 Est GFR ( Amer) > 60 Est GFR (Non-Af Amer) > 60 Random Glucose 135 H Calcium 7.3 L Critical Care Progress Note - Nutrition Nutrition: Nutrition Category Date Time Status NPO Diet [DIET] Diets 10/03/18 Breakfast Active Assessment/Plan (1) Severe sepsis Current Visit: Yes Status: Acute Priority: Medium Comment: Patient of antibiotic completed several courses most recent was IV Vancomycin 750 mg IVPB Q12, Fluconazole (Diflucan) 100 Mg IVPB DAILY and Meropenem 1 gm IVBP Q8H She is back on broad-spectrum antibiotic in light of being hemodynamically unstable, vent dependent, immune compromised, leukocytosis and recurrent low- grade fever, she is currently on IV vancomycin, cefepime and Micafungin (2) Acute respiratory failure with hypoxia Current Visit: Yes Status: Acute Priority: High Comment: Intubated for hypoxemic respiratory failure S/P Tracheostomy strict I&O, Maintian negative fluid balance Continue diuresis as blood pressure permits She is not a candidate for spontaneous breathing since she is not clinically stable and very poor mental status Discussed with the mother at the bedside patient condition, poor prognosis, treatment plans and alternative Will schedule Pt for PEG (3) Congestive heart failure (CHF) Current Visit: Yes Status: Acute Priority: High Comment: Intubated for hypoxemic respiratory failure strict I&O, Maintian negative fluid balance Continue diuresis as blood pressure permits PRN Furosemide (Lasix) (4) DVT of lower extremity, bilateral Current Visit: No Status: Chronic Priority: Medium Comment: Patient with H/O provoked DVT and Pulmonary embolism, repeat lower extremities doppler revealed BilaTERAL Chronic partially occlusive thrombus She was Apixaban (Eliquis) 5 mg PO BID Now off due to bleeding from uterine cancer (5) Pulmonary embolism on left Current Visit: No Status: Chronic Priority: Medium Comment: Patient with H/O provoked DVT and Pulmonary embolism Continue Apixaban (Eliquis) 5 mg PO BID (6) Breast CA Current Visit: Yes Status: Acute Priority: High (7) Anemia Current Visit: Yes Status: Acute Priority: High Comment: Anemia is likely multifactorial from chronic disease and bleeding from uterine cancer Transfuse as needed Hematology oncology consult appreciated
--- NOTE | 2018-10-31 14:19 | RAD ---
Date of service: 10/31/2018 HISTORY: trach COMPARISON: Portable chest 10/30/2018. TECHNIQUE: 1 View obtained. FINDINGS: LUNGS: Left MediPort as well as tracheostomy and nasogastric tubes are not significantly changed in position. No interval change in left greater than right pleural effusions with underlying atelectasis or infiltrates not excluded. No pneumothorax bilaterally. PLEURA: No significant pleural effusion identified, no pneumothorax apparent. CARDIOVASCULAR: No aortic atherosclerotic calcification present. Normal cardiac size. No pulmonary vascular congestion evident. OSSEOUS STRUCTURES: No significant abnormalities. VISUALIZED UPPER ABDOMEN: Normal. OTHER FINDINGS: None. IMPRESSION: Stable bilateral pleural effusions, left greater than right with underlying atelectasis or infiltrates not excluded at the left greater than right bases. Tubes and port unchanged. No pulmonary vascular congestion.
--- NOTE | 2018-10-31 15:18 | CP.PCM.PN ---
Subjective - Date & Time of Evaluation Date of Evaluation: 10/31/18 Time of Evaluation: 12:00 - Subjective Subjective: Vented Objective - Vital Signs/Intake and Output Vital Signs (last 24 hours): Temp Pulse Resp BP Pulse Ox 99.5 F 120 H 17 110/63 100 10/31/18 12:00 10/31/18 15:00 10/31/18 15:00 10/31/18 15:00 10/31/18 15:00 Intake and Output: 10/31/18 10/31/18 06:59 18:59 Intake Total 1755 1463 Output Total 400 Balance 1355 1463 - Medications Medications: Current Medications Famotidine (Pepcid) 20 mg IVP Q12 GLADIS Last Admin: 10/31/18 09:04 Dose: 20 mg Lactated Ringer's (Lactated Ringer's) 1,000 mls @ 50 mls/hr IV .Q20H GLADIS Last Admin: 10/31/18 05:45 Dose: 50 mls/hr Micafungin Sodium 50 mg/ (Sodium Chloride) 100 mls @ 100 mls/hr IVPB DAILY GLADIS; Protocol Last Admin: 10/31/18 09:53 Dose: 100 mls/hr Cefepime HCl 2 gm/ Sodium (Chloride) 100 mls @ 100 mls/hr IVPB Q12 GLADIS; Protocol Last Admin: 10/31/18 09:02 Dose: 100 mls/hr Vancomycin HCl 500 mg/ Sodium (Chloride) 100 mls @ 100 mls/hr IVPB Q12 GLADIS; Protocol Last Admin: 10/31/18 13:22 Dose: 100 mls/hr - Labs Labs: 10/31/18 05:05 10/31/18 05:05 PT 16.8 Seconds (9.8-13.1) H 10/27/18 05:12 INR 1.5 10/27/18 05:12 APTT 29.4 Seconds (25.6-37.1) 10/26/18 13:37 - Head Exam Head Exam: ATRAUMATIC - Eye Exam Eye Exam: Normal appearance - ENT Exam ENT Exam: Mucous Membranes Dry - Respiratory Exam Respiratory Exam: NORMAL BREATHING PATTERN - Cardiovascular Exam Cardiovascular Exam: +S1, +S2 - GI/Abdominal Exam GI & Abdominal Exam: Normal Bowel Sounds Assessment and Plan (1) Anemia Assessment & Plan: anemia of chronic disease [employer]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
[2018-10-31] MEDS ORDERED: Sodium Chloride 3% for Inhalation 4 ML VIAL.NEB IH PRN (16:50)
--- NOTE | 2018-10-31 20:46 | CP.PCM.PN ---
Subjective - Date & Time of Evaluation Date of Evaluation: 10/31/18 Time of Evaluation: 10:00 - Subjective Subjective: SEEN ON RENAL F/U IN ICU STATUS GAYLA REMAINS INTUBATED .. SEDATED ..ON LEVOPHED UNRESPONSIVE .. 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 Objective - Vital Signs/Intake and Output Vital Signs (last 24 hours): Temp Pulse Resp BP Pulse Ox 99.5 F 121 H 18 111/70 100 10/31/18 16:00 10/31/18 18:00 10/31/18 18:00 10/31/18 18:00 10/31/18 18:00 Intake and Output: 10/31/18 11/01/18 18:59 06:59 Intake Total 2157 Output Total 500 Balance 1657 - Medications Medications: Current Medications Famotidine (Pepcid) 20 mg IVP Q12 GLADIS Last Admin: 10/31/18 09:04 Dose: 20 mg Lactated Ringer's (Lactated Ringer's) 1,000 mls @ 50 mls/hr IV .Q20H GLADIS Last Admin: 10/31/18 05:45 Dose: 50 mls/hr Micafungin Sodium 50 mg/ (Sodium Chloride) 100 mls @ 100 mls/hr IVPB DAILY GLADIS; Protocol Last Admin: 10/31/18 09:53 Dose: 100 mls/hr Cefepime HCl 2 gm/ Sodium (Chloride) 100 mls @ 100 mls/hr IVPB Q12 GLADIS; Protocol Last Admin: 10/31/18 09:02 Dose: 100 mls/hr Vancomycin HCl 500 mg/ Sodium (Chloride) 100 mls @ 100 mls/hr IVPB Q12 GLADIS; Protocol Last Admin: 10/31/18 13:22 Dose: 100 mls/hr Norepinephrine Bitartrate 16 (mg/ Dextrose) 266 mls @ 12.47 mls/hr IV .[id number] ONE; Protocol Stop: 11/01/18 13:54 Last Infusion: 10/31/18 18:18 Dose: 12.47 mls/hr - Labs Labs: 10/31/18 05:05 10/31/18 05:05 PT 16.8 Seconds (9.8-13.1) H 10/27/18 05:12 INR 1.5 10/27/18 05:12 APTT 29.4 Seconds (25.6-37.1) 10/26/18 13:37 Assessment and Plan - Assessment and Plan (Free Text) Assessment: LOUIE .. PRE RENAL AZOTEMIA .. RENAL FUNCTION BETER HYPONATREMIA AND HYPOKALEMIA VDRF SEPSIS MMP P: ON LR AT 50 CC /H C/O CURRENT CARE C/O PRESENT MANAGEMENT
--- NOTE | 2018-10-31 23:47 | CP.PCM.PN ---
Subjective - Date & Time of Evaluation Date of Evaluation: 10/31/18 Time of Evaluation: 10:05 - Subjective Subjective: Seen and examined at the bed side. Mother at the bed side. Patient continue to be on supportive care. Levophed maxed out. Poor prognosis. Objective - Vital Signs/Intake and Output Vital Signs (last 24 hours): Temp Pulse Resp BP Pulse Ox 99.5 F 118 H 13 98/59 L 100 10/31/18 23:00 10/31/18 23:00 10/31/18 23:00 10/31/18 23:00 10/31/18 23:00 Intake and Output: 10/31/18 11/01/18 18:59 06:59 Intake Total 2157 758 Output Total 500 Balance 1657 758 - Medications Medications: Current Medications Famotidine (Pepcid) 20 mg IVP Q12 GLADIS Last Admin: 10/31/18 22:07 Dose: 20 mg Lactated Ringer's (Lactated Ringer's) 1,000 mls @ 50 mls/hr IV .Q20H GLADIS Last Admin: 10/31/18 05:45 Dose: 50 mls/hr Micafungin Sodium 50 mg/ (Sodium Chloride) 100 mls @ 100 mls/hr IVPB DAILY GLADIS; Protocol Last Admin: 10/31/18 09:53 Dose: 100 mls/hr Cefepime HCl 2 gm/ Sodium (Chloride) 100 mls @ 100 mls/hr IVPB Q12 GLADIS; Protocol Last Admin: 10/31/18 21:59 Dose: 100 mls/hr Vancomycin HCl 500 mg/ Sodium (Chloride) 100 mls @ 100 mls/hr IVPB Q12 GLADIS; Protocol Last Admin: 10/31/18 22:00 Dose: 100 mls/hr Norepinephrine Bitartrate 16 (mg/ Dextrose) 266 mls @ 12.47 mls/hr IV .[id number] ONE; Protocol Stop: 11/01/18 13:54 Last Infusion: 10/31/18 18:18 Dose: 12.47 mls/hr - Labs Labs: 10/31/18 05:05 10/31/18 05:05 PT 16.8 Seconds (9.8-13.1) H 10/27/18 05:12 INR 1.5 10/27/18 05:12 APTT 29.4 Seconds (25.6-37.1) 10/26/18 13:37 Assessment and Plan (1) Anasarca Status: Acute (2) Septic shock Status: Resolved (3) Multiple organ dysfunction syndrome Status: Acute (4) Acute respiratory failure with hypoxemia Status: Acute (5) Thrombocytopenia Status: Resolved (6) Ascites, malignant Status: Acute (7) Congestive heart failure (CHF) Status: Acute (8) Stage IV breast cancer in female Status: Acute (9) Severe anemia Status: Resolved (10) DVT of lower extremity, bilateral Status: Chronic - Assessment and Plan (Free Text) Plan: Continue current care Poor Prognosis
[2018-11-01 04:32] LABS: ABG ALLEN TEST YES; ARTERIAL BLOOD GAS HEMOGLOBIN 7.6 g/dL (11.7-17.4); ARTERIAL BLOOD GAS O2 CAPACITY 10.7 mL/dL (16-24); ARTERIAL BLOOD GAS O2 CONTENT 10.6 ML/dL (15-23); ARTERIAL BLOOD GAS O2 SAT 99.1 % (95-98); ARTERIAL BLOOD GAS PCO2 29 mm/Hg (35-45); ARTERIAL BLOOD GAS PH 7.37 (7.35-7.45); ARTERIAL BLOOD GAS PO2 104 mm/Hg (80-100); ARTERIAL BLOOD GAS TCO2 17.7 mmol/L (22-28)
[2018-11-01 06:04] LABS: HEMOGLOBIN 7.6 g/dL (12.0-16.0); MEAN CORPUSCULAR HGB CONC 31.1 g/dL (33.0-37.0); RBC 2.45 Mil/uL (3.80-5.20); RED CELL DISTRIBUTION WIDTH 18.7 % (11.5-14.5); WHITE BLOOD COUNT 15.2 K/uL (4.8-10.8)
[2018-11-01 06:10] LABS: BLOOD UREA NITROGEN 54 mg/dl (7-17); CALCIUM 6.8 mg/dL (8.4-10.2); GFR NON-AFRICAN AMERICAN > 60
[2018-11-01 06:22] LABS: MEAN CELL VOLUME 99.6 fl (81.0-99.0)
[2018-11-01] MEDS ORDERED: Potassium Chloride 20 mEq/15 ml LIQ UD NG ONE (07:30)
--- NOTE | 2018-11-01 08:12 | RAD ---
Date of service: 11/01/2018 PROCEDURE: CHEST RADIOGRAPH, 1 VIEW HISTORY: vented COMPARISON: 10/31/2018 FINDINGS: LUNGS: Tracheostomy tube in place as before. Position appears satisfactory. Left MediPort inserted tip right atrium. No change. Nasogastric tube inserted tip in stomach-no change. Shallow lung volumes less volume now than before. Moderate left basal opacity-left compressive atelectasis with or without infiltrate inferred. Left moderate pleural effusion. Overall left hemithoracic appearance similar. Minimal right pleural effusion grossly similar. PLEURA: Bilateral pleural effusions as above. No pneumothorax appreciated. CARDIOVASCULAR: No aortic atherosclerotic calcification present. Probable mild left ventricular enlargement. Suspect concomitant mild pulmonary venous congestion-markings accentuated given shallow lung volumes. OSSEOUS STRUCTURES: No significant abnormalities. VISUALIZED UPPER ABDOMEN: Normal. OTHER FINDINGS: None. IMPRESSION: Bibasilar pleural effusions-left moderate-right minimal. Of unchanged. Left basal compressive atelectasis inferred. Concomitant left basal infiltrate not excluded. Other findings as above.
[2018-11-01] MEDS: Cefepime 2 GM in Sodium Chloride 0.9% 100 ML IVPB SCH ×2 (08:50→20:52)
[2018-11-01] MEDS: Potassium Chloride 20 mEq 100 ML IVPB SCH ×2 (08:51→11:27)
--- NOTE | 2018-11-01 10:30 | CP.CCUPN ---
CCU Subjective - Physician Review Subjective (Free Text): No MV weaning efforts made after return of significant Left effusion as noted on daily CXRs since 10/27/18. She was off MV for approx. 24H from 10/25-10/26. Variable dependence on Levophed noted as well ranging from 20 mcg to 10 mcg dose range. She remains tachycardic at 125 /min with sinus mechanism. SBPs have been above 100. Tmax yesterday was 100.8F and temps remain 99-100F. She is 2.3 L positive fluid balance. She will open eyes very infrequently, but not following commands. Overall moribund appearance remains, no hyperemic facies evident today. ROS: No other pertinent negs or positive on 10+ system review obtainable due to lethargic status Other PMSFH: All other Nursing and physician documentation reviewed to date; no new pertinent info noted relevant to current medical problems. EXAM- HEENT: no icterus, pupils equal, 3 mm and reactive, no gaze preference, opens eyes briefly to pain, but no sustained wakeful state NECK: no visible JVD, supple, carotids equal upstroke bilat/no bruits, trach stoma intact CHEST: decreased BS bases, no wheezes audible, bloody fluid drained dressing over R breast. Left chest portacath. HEART: regular, distant, tachy S1S2, no murmur audible, no rubs. ABD: soft, ++distention with ascites, no focal tenderness, BS hypoactive, dried necrotic lesion over umbilicus unchanged. Previous paracentesis puncture site still leaking ascitic fluid. EXT: + anasarca / edema UEs and LEs, no calf tenderness or palpable cords, distal pulses intact and symmetrical NEURO: withdraws to pain stimuli SKIN: no rashes LABS: WBC= 15.2 HGB= 7.6 PLTs = 1109K Na= 129 K= 3.4 Cl= 105 HCO3= 15 BUN/Cr= 54/0.7 BS= 134 7.34/29/104 CXR: (my interp)- Trach tube within tracheal air column. Marked retirn and persistence of Left lung haziness and atelectasis. IMPRESSION / MAJOR PROBLEMS NOW: 1. Acute hypoxemic Resp Failure, 2 bilat multi-lobar pneumonia/ Effusion 2. Persistent vaginal Bleeding 3. Severe Sepsis with shock, 2 Pneumonia, r/o bacteremia 4. Acute on Chronic disease Anemia 5. h/o DVT- bilat CFV on Aug 5. 6. s/p Paracentesis Fe 5 for 2.5 liters, and repeated Sep 7 for 3.6 liters. PLAN: 1. IR re-eval again for repeat Thoracentesis and paracentesis. 2. PRBCs, to help wean off vasopressor dependence. 3. Antibx and Antifx coverage noted. Daily blood cultures for ongoing surveillance. 4. Will try to wean to trach collar from MV as left pleural effusion resolves. 5. Intermittent repeat paracentesis determined to be more effective and less infection risk than in-dwelling peritoneal catheter for ascites drainage. Otherwise not deemed a candidate for another course of chemotx at this time. 6. More K supplementation, check Mag / Phos.
--- NOTE | 2018-11-01 18:12 | CP.PCM.PN ---
Subjective - Date & Time of Evaluation Date of Evaluation: 11/01/18 Time of Evaluation: 18:30 - Subjective Subjective: Seen and examined at the bed side. Mother at the bed side. Patient continue to be on supportive care Objective - Vital Signs/Intake and Output Vital Signs (last 24 hours): Temp Pulse Resp BP Pulse Ox 99 F 122 H 18 98/60 L 95 11/01/18 17:56 11/01/18 17:56 11/01/18 17:56 11/01/18 17:56 11/01/18 17:00 Intake and Output: 11/01/18 11/01/18 06:59 18:59 Intake Total 1738 1564 Output Total 1025 70 Balance 713 1494 - Medications Medications: Current Medications Famotidine (Pepcid) 20 mg IVP Q12 GLADIS Last Admin: 11/01/18 09:28 Dose: 20 mg Lactated Ringer's (Lactated Ringer's) 1,000 mls @ 50 mls/hr IV .Q20H GLADIS Last Admin: 10/31/18 05:45 Dose: 50 mls/hr Micafungin Sodium 50 mg/ (Sodium Chloride) 100 mls @ 100 mls/hr IVPB DAILY GLADIS; Protocol Last Admin: 11/01/18 11:28 Dose: 100 mls/hr Cefepime HCl 2 gm/ Sodium (Chloride) 100 mls @ 100 mls/hr IVPB Q12 GLADIS; Protocol Last Admin: 11/01/18 08:50 Dose: 100 mls/hr Vancomycin HCl 500 mg/ Sodium (Chloride) 100 mls @ 100 mls/hr IVPB Q12 GLADIS; Protocol Last Admin: 11/01/18 09:42 Dose: 100 mls/hr - Labs Labs: 11/01/18 05:40 11/01/18 05:40 PT 16.8 Seconds (9.8-13.1) H 10/27/18 05:12 INR 1.5 10/27/18 05:12 APTT 29.4 Seconds (25.6-37.1) 10/26/18 13:37 Assessment and Plan (1) Anasarca Status: Acute (2) Septic shock Status: Resolved (3) Multiple organ dysfunction syndrome Status: Acute (4) Acute respiratory failure with hypoxemia Status: Acute (5) Thrombocytopenia Status: Resolved (6) Ascites, malignant Status: Acute (7) Congestive heart failure (CHF) Status: Acute (8) Stage IV breast cancer in female Status: Acute (9) Severe anemia Status: Resolved (10) DVT of lower extremity, bilateral Status: Chronic - Assessment and Plan (Free Text) Plan: Continue current Care
--- NOTE | 2018-11-01 18:49 | CP.PCM.PN ---
Subjective - Date & Time of Evaluation Date of Evaluation: 11/01/18 Time of Evaluation: 14:00 - Subjective Subjective: ID Note- pt. seen and examined in ICU . receiving PRBC. remains on the vent and on levophed. Objective - Vital Signs/Intake and Output Vital Signs (last 24 hours): Temp Pulse Resp BP Pulse Ox 99 F 120 H 16 97/60 L 99 11/01/18 18:00 11/01/18 18:00 11/01/18 18:00 11/01/18 18:00 11/01/18 18:00 Intake and Output: 11/01/18 11/01/18 06:59 18:59 Intake Total 1738 1564 Output Total 1025 70 Balance 713 1494 - Medications Medications: Current Medications Famotidine (Pepcid) 20 mg IVP Q12 GLADIS Last Admin: 11/01/18 09:28 Dose: 20 mg Lactated Ringer's (Lactated Ringer's) 1,000 mls @ 50 mls/hr IV .Q20H GLADIS Last Admin: 10/31/18 05:45 Dose: 50 mls/hr Micafungin Sodium 50 mg/ (Sodium Chloride) 100 mls @ 100 mls/hr IVPB DAILY GLADIS; Protocol Last Admin: 11/01/18 11:28 Dose: 100 mls/hr Cefepime HCl 2 gm/ Sodium (Chloride) 100 mls @ 100 mls/hr IVPB Q12 GLADIS; Protocol Last Admin: 11/01/18 08:50 Dose: 100 mls/hr Vancomycin HCl 500 mg/ Sodium (Chloride) 100 mls @ 100 mls/hr IVPB Q12 GLADIS; Protocol Last Admin: 11/01/18 09:42 Dose: 100 mls/hr - Labs Labs: - Additional Findings Additional findings: - Constitutional Appears: Chronically Ill Additional comments: - ENT Exam Additional comments: s/p trache - Respiratory Exam Additional comments: On the vent via Trach decreased breath sounds on left side - Cardiovascular Exam Cardiovascular Exam: Tachycardia, +S1, +S2 - GI/Abdominal Exam Additional comments: distended , soft hypoactive BS + ascites - Extremities Exam Additional comments: b/l 2+ edema in LE and UE - Neurological Exam Additional comments: does not follow any commands Laboratory Results - last 72 hr 10/30/18 10/30/18 10/30/18 04:22 05:19 05:19 WBC 14.5 H RBC 2.34 L Hgb 7.3 L Hct 22.5 L MCV 96.2 MCH 31.0 MCHC 32.3 L RDW 18.5 H Plt Count 144 MPV 10.4 Neut % (Auto) 89.8 H Lymph % (Auto) 4.3 L [place] % (Auto) 5.6 Eos % (Auto) 0.1 Baso % (Auto) 0.2 Neut # (Auto) 13.0 H Lymph # (Auto) 0.6 L [place] # (Auto) 0.8 Eos # (Auto) 0.0 Baso # (Auto) 0.0 Neutrophils % (Manual) 88 H Band Neutrophils % 3 H Lymphocytes % (Manual) 2 L Monocytes % (Manual) 7 Platelet Estimate Normal Hypochromasia (manual) Moderate Anisocytosis (manual) Slight Tear Drop Cells Slight Ovalocytes Slight pCO2 28 L pO2 100 HCO3 21.0 ABG pH 7.43 ABG Total CO2 19.5 L ABG O2 Saturation 98.9 H ABG O2 Content 10.6 L ABG Base Excess -5.0 L ABG Hemoglobin 7.7 L ABG Carboxyhemoglobin 0.7 POC ABG HHb (Measured) 1.1 ABG Methemoglobin 1.9 ABG O2 Capacity 10.7 L Frederic Test Yes A-a O2 Difference 115.0 Hgb O2 Saturation 96.4 Vent Mode A/c Mechanical Rate 12 FiO2 35.0 Tidal Volume 450 PEEP 5 Sodium 134 Potassium 3.2 L Chloride 105 Carbon Dioxide 19 L Anion Gap 13 BUN 58 H Creatinine 0.8 Est GFR ( Amer) > 60 Est GFR (Non-Af Amer) > 60 Random Glucose 111 H Calcium 7.3 L Blood Type Antibody Screen Crossmatch BBK History Checked 10/31/18 10/31/18 10/31/18 04:10 05:05 05:05 WBC 14.9 H RBC 2.40 L Hgb 7.4 L Hct 23.2 L MCV 96.5 MCH 30.8 MCHC 31.9 L RDW 18.5 H Plt Count 132 MPV 10.3 Neut % (Auto) 88.2 H Lymph % (Auto) 4.7 L [place] % (Auto) 6.7 Eos % (Auto) 0.2 Baso % (Auto) 0.2 Neut # (Auto) 13.2 H Lymph # (Auto) 0.7 L [place] # (Auto) 1.0 H Eos # (Auto) 0.0 Baso # (Auto) 0.0 Neutrophils % (Manual) Band Neutrophils % Lymphocytes % (Manual) Monocytes % (Manual) Platelet Estimate Hypochromasia (manual) Anisocytosis (manual) Tear Drop Cells Ovalocytes pCO2 28 L pO2 96 HCO3 21.0 ABG pH 7.43 ABG Total CO2 19.5 L ABG O2 Saturation 98.9 H ABG O2 Content 10.8 L ABG Base Excess -5.0 L ABG Hemoglobin 7.8 L ABG Carboxyhemoglobin 0.7 POC ABG HHb (Measured) 1.1 ABG Methemoglobin 1.7 ABG O2 Capacity 10.9 L Frederic Test Yes A-a O2 Difference 119.0 Hgb O2 Saturation 96.6 Vent Mode A/c Mechanical Rate 12 FiO2 35.0 Tidal Volume 450 PEEP 5 Sodium 133 Potassium 3.8 Chloride 105 Carbon Dioxide 18 L Anion Gap 14 BUN 54 H Creatinine 0.8 Est GFR ( Amer) > 60 Est GFR (Non-Af Amer) > 60 Random Glucose 135 H Calcium 7.3 L Blood Type Antibody Screen Crossmatch BBK History Checked 11/01/18 11/01/18 11/01/18 04:26 05:40 05:40 WBC 15.2 H RBC 2.45 L Hgb 7.6 L Hct 24.5 L MCV 99.6 H D MCH 31.0 MCHC 31.1 L RDW 18.7 H Plt Count 109 L D MPV Neut % (Auto) Lymph % (Auto) [place] % (Auto) Eos % (Auto) Baso % (Auto) Neut # (Auto) Lymph # (Auto) [place] # (Auto) Eos # (Auto) Baso # (Auto) Neutrophils % (Manual) Band Neutrophils % Lymphocytes % (Manual) Monocytes % (Manual) Platelet Estimate Hypochromasia (manual) Anisocytosis (manual) Tear Drop Cells Ovalocytes pCO2 29 L pO2 104 H HCO3 19.0 L ABG pH 7.37 ABG Total CO2 17.7 L ABG O2 Saturation 99.1 H ABG O2 Content 10.6 L ABG Base Excess -7.6 L ABG Hemoglobin 7.6 L ABG Carboxyhemoglobin 0.8 POC ABG HHb (Measured) 0.9 ABG Methemoglobin 1.4 ABG O2 Capacity 10.7 L Frederic Test Yes A-a O2 Difference 109.0 Hgb O2 Saturation 96.9 Vent Mode Prvc/ac Mechanical Rate 12 FiO2 35.0 Tidal Volume 450 PEEP 5 Sodium 129 L Potassium 3.4 L Chloride 105 Carbon Dioxide 15 L Anion Gap 12 BUN 54 H Creatinine 0.7 Est GFR ( Amer) > 60 Est GFR (Non-Af Amer) > 60 Random Glucose 134 H Calcium 6.8 L Blood Type Antibody Screen Crossmatch BBK History Checked 11/01/18 11:30 WBC RBC Hgb Hct MCV MCH MCHC RDW Plt Count MPV Neut % (Auto) Lymph % (Auto) [place] % (Auto) Eos % (Auto) Baso % (Auto) Neut # (Auto) Lymph # (Auto) [place] # (Auto) Eos # (Auto) Baso # (Auto) Neutrophils % (Manual) Band Neutrophils % Lymphocytes % (Manual) Monocytes % (Manual) Platelet Estimate Hypochromasia (manual) Anisocytosis (manual) Tear Drop Cells Ovalocytes pCO2 pO2 HCO3 ABG pH ABG Total CO2 ABG O2 Saturation ABG O2 Content ABG Base Excess ABG Hemoglobin ABG Carboxyhemoglobin POC ABG HHb (Measured) ABG Methemoglobin ABG O2 Capacity Frederic Test A-a O2 Difference Hgb O2 Saturation Vent Mode Mechanical Rate FiO2 Tidal Volume PEEP Sodium Potassium Chloride Carbon Dioxide Anion Gap BUN Creatinine Est GFR ( Amer) Est GFR (Non-Af Amer) Random Glucose Calcium Blood Type A POSITIVE Antibody Screen Negative Crossmatch See Detail BBK History Checked Patient has bt Microbiology 10/31/18 07:00 Blood-Thru Central Line Blood Culture - Preliminary Gram Positive Cocci 10/31/18 07:00 Blood-Thru Central Line Gram Stain - Final 10/31/18 09:02 Trachasp Gram Stain - Final 10/29/18 14:40 Blood-Venous Blood Culture - Preliminary NO GROWTH AFTER 3 DAYS 10/29/18 14:30 Blood-Venous Blood Culture - Preliminary NO GROWTH AFTER 3 DAYS 10/27/18 14:00 Blood-Thru Central Line Blood Culture - Final NO GROWTH AFTER 5 DAYS 10/27/18 14:00 Blood-Thru Central Line Gram Stain - Final TEST NOT PERFORMED 10/26/18 18:20 Blood-Thru Central Line Blood Culture - Final NO GROWTH AFTER 5 DAYS 10/21/18 08:00 Urine,Catheterized Urine Culture - Preliminary Alida Species 10/18/18 11:55 Blood-Thru Central Line Blood Culture - Final NO GROWTH AFTER 5 DAYS 10/18/18 11:55 Blood-Thru Central Line Gram Stain - Final TEST NOT PERFORMED 10/05/18 06:15 Blood Blood Culture - Final NO GROWTH AFTER 5 DAYS 10/05/18 06:15 Blood Gram Stain - Final TEST NOT PERFORMED 10/05/18 06:30 Blood Blood Culture - Final NO GROWTH AFTER 5 DAYS 10/05/18 06:30 Blood Gram Stain - Final TEST NOT PERFORMED 10/05/18 07:10 Urine,Hardwick Urine Culture - Final Yeast Species 09/25/18 12:10 Blood-Thru Central Line Blood Culture - Final NO GROWTH AFTER 5 DAYS 09/25/18 12:10 Blood-Thru Central Line Gram Stain - Final TEST NOT PERFORMED 09/20/18 14:00 Blood-Thru Central Line Blood Culture - Final NO GROWTH AFTER 5 DAYS 09/20/18 17:53 Trachasp Gram Stain - Final 09/20/18 17:53 Trachasp Sputum Culture - Final Yeast Species 09/20/18 17:53 Urine,Hardwick Urine Culture - Final No Growth (<1,000 CFU/ML) 09/15/18 15:35 Blood-Thru Central Line Blood Culture - Final NO GROWTH AFTER 5 DAYS 09/15/18 15:35 Blood-Thru Central Line Gram Stain - Final TEST NOT PERFORMED 09/15/18 15:25 Blood-Thru Central Line Blood Culture - Final NO GROWTH AFTER 5 DAYS 09/15/18 15:25 Blood-Thru Central Line Gram Stain - Final TEST NOT PERFORMED 09/08/18 11:49 Blood-Venous Blood Culture - Final NO GROWTH AFTER 5 DAYS 09/08/18 11:49 Blood-Venous Gram Stain - Final TEST NOT PERFORMED 09/08/18 11:49 Blood-Venous Blood Culture - Final NO GROWTH AFTER 5 DAYS 09/08/18 11:49 Blood-Venous Gram Stain - Final TEST NOT PERFORMED 09/07/18 Unknown Blood-Thru Central Line Blood Culture - Final NO GROWTH AFTER 5 DAYS 09/07/18 Unknown Blood-Thru Central Line Gram Stain - Final TEST NOT PERFORMED 09/07/18 Unknown Blood-Thru Central Line Blood Culture - Final NO GROWTH AFTER 5 DAYS 09/07/18 Unknown Blood-Thru Central Line Gram Stain - Final TEST NOT PERFORMED 09/07/18 09:07 Trachasp Gram Stain - Final 09/07/18 09:07 Trachasp Sputum Culture - Final Yeast Species 09/04/18 11:25 Naris MRSA Culture (Admit) - Final MRSA NOT DETECTED Assessment and Plan (1) Acute respiratory failure with hypoxemia Status: Acute (2) Anemia Status: Acute (3) Breast CA Status: Acute (4) Tumor lysis syndrome Status: Acute (5) Thrombocytopenia Status: Resolved (6) DVT of lower extremity, bilateral Status: Chronic (7) Adnexal mass Status: Acute (8) Acute respiratory failure with hypoxia Status: Acute (9) Anasarca Status: Acute (10) Pleural effusion Status: Acute - Assessment and Plan (Free Text) Assessment: A/P- 58 year old female with stage 4 metastatic inflammatory breast cancer with 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 remains on the vent remains on levophed afebrile today. leukocytosis slightly increased today. one blood cx from port - reported today as gram pos cocci blood cx- neg x 11 trach asp cx- yeast ( treated) stool c.diff- negative repeat UA- negative repeat urine cx- yeast ( treated) hardwick removed 4 days ago repeat urine cx - yeast finally ID as alida lipolytica ( hardwick was removed a week ago). cxr - b/l pleural effusions PLan- had been off antibiotics for past 10 days since her leukocytosis had resolved and was afebrile and had already completed 38 days of meropnem , 34 days of fluconazole, 25 days of vanco (empirically). check trach asp cx. restarted abx again 3 days ago in light of her remaining on the vent and pleural effusion and her immunocompromised status secondary to metastastatic cancer to cover for VAP . continue with vanco and cefepime day #3. keep vanco trough <15. f/u ID and sens of the gram pos cocci in the port . continue with micafungin as well for C.Lipolytica in urine cx.day #6 advise check 2 more blood cx as well. check TTEr/o Vegetations. prognosis poor. critical care time spent 30 minutes.
[2018-11-02 03:49] LABS: ABG ALLEN TEST YES; ARTERIAL BLOOD GAS HCO3 16.3 mmol/L (21-28); ARTERIAL BLOOD GAS HEMOGLOBIN 11.4 g/dL (11.7-17.4); ARTERIAL BLOOD GAS O2 CAPACITY 15.6 mL/dL (16-24); ARTERIAL BLOOD GAS O2 CONTENT 15.5 ML/dL (15-23); ARTERIAL BLOOD GAS O2 SAT 99.2 % (95-98); ARTERIAL BLOOD GAS PCO2 31 mm/Hg (35-45); ARTERIAL BLOOD GAS PH 7.28 (7.35-7.45); ARTERIAL BLOOD GAS PO2 101 mm/Hg (80-100); ARTERIAL BLOOD GAS TCO2 15.6 mmol/L (22-28)
[2018-11-02 05:35] LABS: BLOOD UREA NITROGEN 53 mg/dl (7-17); CALCIUM 7.3 mg/dL (8.4-10.2); GFR NON-AFRICAN AMERICAN > 60; MEAN CORPUSCULAR HEMOGLOBIN 30.2 pg (27.0-31.0); MEAN CORPUSCULAR HGB CONC 32.4 g/dL (33.0-37.0); RBC 3.62 Mil/uL (3.80-5.20); RED CELL DISTRIBUTION WIDTH 19.2 % (11.5-14.5); WHITE BLOOD COUNT 16.2 K/uL (4.8-10.8)
[2018-11-02 06:03] LABS: HEMOGLOBIN 10.9 g/dL (12.0-16.0); MEAN CELL VOLUME 93.4 fl (81.0-99.0)
[2018-11-02 08:27] LABS: VENOUS BLOOD GAS BASE EXCESS -11.6 mmol/L (0.0-2.0); VENOUS BLOOD GAS PCO2 32 mmHg (40-60); VENOUS BLOOD GAS PO2 40 mm/Hg (30-55); VENOUS BLOOD PH 7.26 (7.32-7.43)
--- NOTE | 2018-11-02 08:51 | CP.CCUPN ---
CCU Subjective - Physician Review Subjective (Free Text): Lethargy persists, no specific interactive responses noted to verbal commands. Remains on Levophed, dose was able to be decreased to 2.5mcg after PRBCs. Breaths 16 on AC 16. Variable dependence on Levophed noted as well ranging from 20 mcg to 10 mcg dose range. She remains tachycardic at 125 /min with sinus mechanism. SBPs have been above 100. No new temp spikes, temps remain 99-100F. She is 2.2 L positive fluid balance. ROS: No other pertinent negs or positive on 10+ system review obtainable due to lethargic status Other PMSFH: All other Nursing and physician documentation reviewed to date; no new pertinent info noted relevant to current medical problems. EXAM- HEENT: no icterus, pupils equal, 3 mm and reactive, no gaze preference, opens eyes briefly to pain, but no sustained wakeful state NECK: no visible JVD, supple, carotids equal upstroke bilat/no bruits, trach stoma intact CHEST: decreased BS bases, no wheezes audible, bloody fluid drained dressing over R breast. Left chest portacath. HEART: regular, distant, tachy S1S2, no murmur audible, no rubs. ABD: soft, ++distention with ascites, no focal tenderness, BS hypoactive, dried necrotic lesion over umbilicus unchanged. Previous paracentesis puncture site still leaking ascitic fluid. EXT: + anasarca / edema UEs and LEs, no calf tenderness or palpable cords, distal pulses intact and symmetrical NEURO: withdraws to pain stimuli SKIN: no rashes LABS: WBC= 16.2 HGB= 10.9 PLTs = 73K Na= 130 K= 4.0 Cl= 106 HCO3= 16 BUN/Cr= 53/0.7 BS= 132 7.28/31/101 ABG 7.26/22/40 with Lactate= 4.1 Blood culture from port-a-cath: +GPC CXR: (my interp)- Trach tube within tracheal air column. Marked recurrence and persistence of Left lung haziness and atelectasis. Overall unchanged from yesterday. IMPRESSION / MAJOR PROBLEMS NOW: 1. Acute hypoxemic Resp Failure, 2 bilat multi-lobar pneumonia/ Effusion 2. GPC Bacteremia 3. Severe Sepsis with shock, 2 Pneumonia, r/o bacteremia 4. Acute on Chronic disease Anemia and Persistent vaginal Bleeding 5. h/o DVT- bilat CFV on Aug 5. 6. s/p Paracentesis Fe 5 for 2.5 liters, and repeated Sep 28 for 3.6 liters. PLAN: 1. IR re-eval again for repeat Thoracentesis and paracentesis. Discuss with PMD if this will be pursued again, will be approx 4th time this admission. 2. Await identification of GPCs in blood. On Vanco for now. Other Antibx and Antifx coverage noted. 3. Elevation in Lactic Acid noted, ? secondary to bacteremia, but she has been becoming more acidotic since approx 10/29. WBC has been increasing and Platelets which had recovered post-chemo, are declining again. 4. Overall condition appears to be worsening despite aggressive measures in ICU. 5. No MV weans anticipated unless Left effusion can be further resolved. Satisfactory SPO2 on low level 35% oxygen.
[2018-11-02] MEDS: Cefepime 2 GM in Sodium Chloride 0.9% 100 ML IVPB SCH ×2 (09:37→21:18)
--- NOTE | 2018-11-02 10:13 | CP.PCM.PN ---
Subjective - Date & Time of Evaluation Date of Evaluation: 11/02/18 Time of Evaluation: 10:13 - Subjective Subjective: ID Note- Patient seen and examined in ICu today. remains on the vent. has been off levophed for couple hours as per nurse. Objective - Vital Signs/Intake and Output Vital Signs (last 24 hours): Temp Pulse Resp BP Pulse Ox 98.6 F 118 H 15 86/54 L 99 11/02/18 08:00 11/02/18 08:00 11/02/18 08:00 11/02/18 08:00 11/02/18 08:00 Intake and Output: 11/02/18 11/02/18 06:59 18:59 Intake Total 1648 Output Total 250 50 Balance 1398 -50 - Medications Medications: Current Medications Famotidine (Pepcid) 20 mg IVP Q12 GLADIS Last Admin: 11/01/18 20:54 Dose: 20 mg Lactated Ringer's (Lactated Ringer's) 1,000 mls @ 50 mls/hr IV .Q20H GLADIS Last Admin: 10/31/18 05:45 Dose: 50 mls/hr Micafungin Sodium 50 mg/ (Sodium Chloride) 100 mls @ 100 mls/hr IVPB DAILY GLADIS; Protocol Last Admin: 11/01/18 11:28 Dose: 100 mls/hr Cefepime HCl 2 gm/ Sodium (Chloride) 100 mls @ 100 mls/hr IVPB Q12 GLADIS; Protocol Last Admin: 11/01/18 20:52 Dose: 100 mls/hr Vancomycin HCl 500 mg/ Sodium (Chloride) 100 mls @ 100 mls/hr IVPB Q12 GLADIS; Protocol Last Admin: 11/01/18 20:54 Dose: 100 mls/hr Norepinephrine Bitartrate 16 (mg/ Dextrose) 266 mls @ 4.99 mls/hr IV .Q24H ONE; Protocol Stop: 11/02/18 23:40 - Labs Labs: - Additional Findings Additional findings: - Constitutional Appears: Chronically Ill Additional comments: - ENT Exam Additional comments: s/p trache - Respiratory Exam Additional comments: On the vent via Trach decreased breath sounds on left side - Cardiovascular Exam Cardiovascular Exam: Tachycardia, +S1, +S2 - GI/Abdominal Exam Additional comments: distended , soft hypoactive BS + ascites - Extremities Exam Additional comments: b/l 2+ edema in LE and UE - Neurological Exam Additional comments: does not follow any commands Laboratory Results - last 72 hr 10/30/18 10/31/18 10/31/18 05:19 04:10 05:05 WBC 14.9 H RBC 2.40 L Hgb 7.4 L Hct 23.2 L MCV 96.5 MCH 30.8 MCHC 31.9 L RDW 18.5 H Plt Count 132 MPV 10.3 Neut % (Auto) 88.2 H Lymph % (Auto) 4.7 L Cottle % (Auto) 6.7 Eos % (Auto) 0.2 Baso % (Auto) 0.2 Neut # (Auto) 13.2 H Lymph # (Auto) 0.7 L Cottle # (Auto) 1.0 H Eos # (Auto) 0.0 Baso # (Auto) 0.0 Neutrophils % (Manual) 88 H Band Neutrophils % 3 H Lymphocytes % (Manual) 2 L Monocytes % (Manual) 7 Platelet Estimate Normal Hypochromasia (manual) Moderate Anisocytosis (manual) Slight Tear Drop Cells Slight Ovalocytes Slight pCO2 28 L pO2 96 HCO3 21.0 ABG pH 7.43 ABG Total CO2 19.5 L ABG O2 Saturation 98.9 H ABG O2 Content 10.8 L ABG Base Excess -5.0 L ABG Hemoglobin 7.8 L ABG Carboxyhemoglobin 0.7 POC ABG HHb (Measured) 1.1 ABG Methemoglobin 1.7 ABG O2 Capacity 10.9 L Frederic Test Yes VBG pH VBG pCO2 VBG HCO3 VBG Total CO2 VBG O2 Sat (Calc) VBG Base Excess VBG Potassium A-a O2 Difference 119.0 Hgb O2 Saturation 96.6 Glucose Lactate Vent Mode A/c Mechanical Rate 12 FiO2 35.0 Tidal Volume 450 PEEP 5 Crit Value Called To Crit Value Called By Crit Value Read Back Blood Gas Notified Time Sodium Potassium Chloride Carbon Dioxide Anion Gap BUN Creatinine Est GFR ( Amer) Est GFR (Non-Af Amer) Random Glucose Calcium Venous Blood Potassium Blood Type Antibody Screen Crossmatch BBK History Checked 10/31/18 11/01/18 11/01/18 05:05 04:26 05:40 WBC 15.2 H RBC 2.45 L Hgb 7.6 L Hct 24.5 L MCV 99.6 H D MCH 31.0 MCHC 31.1 L RDW 18.7 H Plt Count 109 L D MPV Neut % (Auto) Lymph % (Auto) Cottle % (Auto) Eos % (Auto) Baso % (Auto) Neut # (Auto) Lymph # (Auto) Cottle # (Auto) Eos # (Auto) Baso # (Auto) Neutrophils % (Manual) Band Neutrophils % Lymphocytes % (Manual) Monocytes % (Manual) Platelet Estimate Hypochromasia (manual) Anisocytosis (manual) Tear Drop Cells Ovalocytes pCO2 29 L pO2 104 H HCO3 19.0 L ABG pH 7.37 ABG Total CO2 17.7 L ABG O2 Saturation 99.1 H ABG O2 Content 10.6 L ABG Base Excess -7.6 L ABG Hemoglobin 7.6 L ABG Carboxyhemoglobin 0.8 POC ABG HHb (Measured) 0.9 ABG Methemoglobin 1.4 ABG O2 Capacity 10.7 L Frederic Test Yes VBG pH VBG pCO2 VBG HCO3 VBG Total CO2 VBG O2 Sat (Calc) VBG Base Excess VBG Potassium A-a O2 Difference 109.0 Hgb O2 Saturation 96.9 Glucose Lactate Vent Mode Prvc/ac Mechanical Rate 12 FiO2 35.0 Tidal Volume 450 PEEP 5 Crit Value Called To Crit Value Called By Crit Value Read Back Blood Gas Notified Time Sodium 133 Potassium 3.8 Chloride 105 Carbon Dioxide 18 L Anion Gap 14 BUN 54 H Creatinine 0.8 Est GFR ( Amer) > 60 Est GFR (Non-Af Amer) > 60 Random Glucose 135 H Calcium 7.3 L Venous Blood Potassium Blood Type Antibody Screen Crossmatch BBK History Checked 11/01/18 11/01/18 11/02/18 05:40 11:30 03:46 WBC RBC Hgb Hct MCV MCH MCHC RDW Plt Count MPV Neut % (Auto) Lymph % (Auto) Cottle % (Auto) Eos % (Auto) Baso % (Auto) Neut # (Auto) Lymph # (Auto) Cottle # (Auto) Eos # (Auto) Baso # (Auto) Neutrophils % (Manual) Band Neutrophils % Lymphocytes % (Manual) Monocytes % (Manual) Platelet Estimate Hypochromasia (manual) Anisocytosis (manual) Tear Drop Cells Ovalocytes pCO2 31 L pO2 101 H HCO3 16.3 L ABG pH 7.28 L ABG Total CO2 15.6 L ABG O2 Saturation 99.2 H ABG O2 Content 15.5 ABG Base Excess -11.0 L ABG Hemoglobin 11.4 L ABG Carboxyhemoglobin 1.9 H POC ABG HHb (Measured) 0.8 ABG Methemoglobin 1.8 ABG O2 Capacity 15.6 L Frederic Test Yes VBG pH VBG pCO2 VBG HCO3 VBG Total CO2 VBG O2 Sat (Calc) VBG Base Excess VBG Potassium A-a O2 Difference 110.0 Hgb O2 Saturation 95.5 Glucose Lactate Vent Mode A/c Mechanical Rate 12 FiO2 35.0 Tidal Volume 450 PEEP 5 Crit Value Called To Crit Value Called By Crit Value Read Back Blood Gas Notified Time Sodium 129 L Potassium 3.4 L Chloride 105 Carbon Dioxide 15 L Anion Gap 12 BUN 54 H Creatinine 0.7 Est GFR ( Amer) > 60 Est GFR (Non-Af Amer) > 60 Random Glucose 134 H Calcium 6.8 L Venous Blood Potassium Blood Type A POSITIVE Antibody Screen Negative Crossmatch See Detail BBK History Checked Patient has bt 11/02/18 11/02/18 11/02/18 04:18 04:18 07:00 WBC 16.2 H RBC 3.62 L Hgb 10.9 L D Hct 33.8 L MCV 93.4 D MCH 30.2 MCHC 32.4 L RDW 19.2 H Plt Count 73 L D MPV Neut % (Auto) Lymph % (Auto) Cottle % (Auto) Eos % (Auto) Baso % (Auto) Neut # (Auto) Lymph # (Auto) Cottle # (Auto) Eos # (Auto) Baso # (Auto) Neutrophils % (Manual) Band Neutrophils % Lymphocytes % (Manual) Monocytes % (Manual) Platelet Estimate Hypochromasia (manual) Anisocytosis (manual) Tear Drop Cells Ovalocytes pCO2 pO2 40 HCO3 ABG pH ABG Total CO2 ABG O2 Saturation ABG O2 Content ABG Base Excess ABG Hemoglobin ABG Carboxyhemoglobin POC ABG HHb (Measured) ABG Methemoglobin ABG O2 Capacity Frederic Test VBG pH 7.26 L VBG pCO2 32 L VBG HCO3 15.4 VBG Total CO2 15.4 L VBG O2 Sat (Calc) 78.5 H VBG Base Excess -11.6 L VBG Potassium 4.0 A-a O2 Difference Hgb O2 Saturation Glucose 132 H Lactate 4.1 H* Vent Mode Mechanical Rate FiO2 35.0 Tidal Volume PEEP 5 Crit Value Called To Mdaisyn coffman Crit Value Called By 15 Crit Value Read Back Y Blood Gas Notified Time 825 Sodium 130 L 130.0 L Potassium 4.0 Chloride 106 101.0 Carbon Dioxide 16 L Anion Gap 12 BUN 53 H Creatinine 0.7 Est GFR ( Amer) > 60 Est GFR (Non-Af Amer) > 60 Random Glucose 132 H Calcium 7.3 L Venous Blood Potassium 4.0 Blood Type Antibody Screen Crossmatch BBK History Checked Microbiology 11/01/18 04:58 Blood-Venous Blood Culture - Preliminary NO GROWTH AFTER 24 HOURS 10/31/18 07:00 Blood-Thru Central Line Blood Culture - Preliminary Gram Positive Cocci 10/31/18 07:00 Blood-Thru Central Line Gram Stain - Final 10/31/18 09:02 Trachasp Gram Stain - Final 10/29/18 14:40 Blood-Venous Blood Culture - Preliminary NO GROWTH AFTER 3 DAYS 10/29/18 14:30 Blood-Venous Blood Culture - Preliminary NO GROWTH AFTER 3 DAYS 10/27/18 14:00 Blood-Thru Central Line Blood Culture - Final NO GROWTH AFTER 5 DAYS 10/27/18 14:00 Blood-Thru Central Line Gram Stain - Final TEST NOT PERFORMED 10/26/18 18:20 Blood-Thru Central Line Blood Culture - Final NO GROWTH AFTER 5 DAYS 10/21/18 08:00 Urine,Catheterized Urine Culture - Preliminary Catrachito Species 10/18/18 11:55 Blood-Thru Central Line Blood Culture - Final NO GROWTH AFTER 5 DAYS 10/18/18 11:55 Blood-Thru Central Line Gram Stain - Final TEST NOT PERFORMED 10/05/18 06:15 Blood Blood Culture - Final NO GROWTH AFTER 5 DAYS 10/05/18 06:15 Blood Gram Stain - Final TEST NOT PERFORMED 10/05/18 06:30 Blood Blood Culture - Final NO GROWTH AFTER 5 DAYS 10/05/18 06:30 Blood Gram Stain - Final TEST NOT PERFORMED 10/05/18 07:10 Urine,Hardwick Urine Culture - Final Yeast Species 09/25/18 12:10 Blood-Thru Central Line Blood Culture - Final NO GROWTH AFTER 5 DAYS 09/25/18 12:10 Blood-Thru Central Line Gram Stain - Final TEST NOT PERFORMED 09/20/18 14:00 Blood-Thru Central Line Blood Culture - Final NO GROWTH AFTER 5 DAYS 09/20/18 17:53 Trachasp Gram Stain - Final 09/20/18 17:53 Trachasp Sputum Culture - Final Yeast Species 09/20/18 17:53 Urine,Hardwick Urine Culture - Final No Growth (<1,000 CFU/ML) 09/15/18 15:35 Blood-Thru Central Line Blood Culture - Final NO GROWTH AFTER 5 DAYS 09/15/18 15:35 Blood-Thru Central Line Gram Stain - Final TEST NOT PERFORMED 09/15/18 15:25 Blood-Thru Central Line Blood Culture - Final NO GROWTH AFTER 5 DAYS 09/15/18 15:25 Blood-Thru Central Line Gram Stain - Final TEST NOT PERFORMED 09/08/18 11:49 Blood-Venous Blood Culture - Final NO GROWTH AFTER 5 DAYS 09/08/18 11:49 Blood-Venous Gram Stain - Final TEST NOT PERFORMED 09/08/18 11:49 Blood-Venous Blood Culture - Final NO GROWTH AFTER 5 DAYS 09/08/18 11:49 Blood-Venous Gram Stain - Final TEST NOT PERFORMED 09/07/18 Unknown Blood-Thru Central Line Blood Culture - Final NO GROWTH AFTER 5 DAYS 09/07/18 Unknown Blood-Thru Central Line Gram Stain - Final TEST NOT PERFORMED 09/07/18 Unknown Blood-Thru Central Line Blood Culture - Final NO GROWTH AFTER 5 DAYS 09/07/18 Unknown Blood-Thru Central Line Gram Stain - Final TEST NOT PERFORMED 09/07/18 09:07 Trachasp Gram Stain - Final 09/07/18 09:07 Trachasp Sputum Culture - Final Yeast Species 09/04/18 11:25 Naris MRSA Culture (Admit) - Final MRSA NOT DETECTED Accession No. : [id number] Patient Name / ID : RYLEE ONEIL / [id number] Exam Date : 11/02/2018 04:04:01 ( Approved ) Study Comment : Sex / Age : F / [id number] Creator : Mario Etienne MD Dictator : Mario Etienne MD Flat Optical Element Maker : Javascript Application Developer : Mario Etienne MD Approver2 : Report Date : 11/02/2018 10:28:06 My Comment : Date of service: 11/02/2018 HISTORY: Trach, vent COMPARISON: 11/01/2018 TECHNIQUE: 1 view obtained. FINDINGS: LUNGS: No active pulmonary disease. PLEURA: Moderate left pleural effusion. Small right pleural effusion. No pneumothorax. CARDIOVASCULAR: No aortic atherosclerotic calcification present. Tracheostomy tube and nasogastric tube are unchanged. Left central venous infusion port unchanged. No pulmonary vascular congestion. OSSEOUS STRUCTURES: No significant abnormalities. VISUALIZED UPPER ABDOMEN: Normal. OTHER FINDINGS: None. IMPRESSION: No interval change. 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 remains on the vent off levophed few hours today. afebrile today. leukocytosis slightly increased today. one blood cx from port 10/31/2018 - reported today as gram pos cocci blood cx-11/01/2018- neg blood cx- neg x 11 trach asp cx- yeast ( treated) stool c.diff- negative repeat UA- negative repeat urine cx- yeast ( treated) hardwick removed 4 days ago repeat urine cx - yeast finally ID as catrachito lipolytica ( hardwick was removed a week ago). cxr - b/l pleural effusions PLan- had been off antibiotics for past 10 days since her leukocytosis had resolved and was afebrile and had already completed 38 days of meropnem , 34 days of fluconazole, 25 days of vanco (empirically). check trach asp cx. restarted abx again 3 days ago in light of her remaining on the vent and pleural effusion and her immunocompromised status secondary to metastastatic cancer to cover for VAP . continue with vanco and cefepime day #3. keep vanco trough <15. f/u ID and sens of the gram pos cocci in the port blood cx report. ( could be contaminant since she has been on vanco and all her other blood cx both through port and peripheral have been negative) continue with micafungin as well for C.Lipolytica in urine cx.day #6 advise check 1 more bloodcx. check TTE r/o Vegetations. prognosis poor. critical care time spent 30 minutes.
--- NOTE | 2018-11-02 10:33 | RAD ---
Date of service: 11/02/2018 HISTORY: Trach, vent COMPARISON: 11/01/2018 TECHNIQUE: 1 view obtained. FINDINGS: LUNGS: No active pulmonary disease. PLEURA: Moderate left pleural effusion. Small right pleural effusion. No pneumothorax. CARDIOVASCULAR: No aortic atherosclerotic calcification present. Tracheostomy tube and nasogastric tube are unchanged. Left central venous infusion port unchanged. No pulmonary vascular congestion. OSSEOUS STRUCTURES: No significant abnormalities. VISUALIZED UPPER ABDOMEN: Normal. OTHER FINDINGS: None. IMPRESSION: No interval change.
--- NOTE | 2018-11-02 20:26 | CP.PCM.PN ---
Subjective - Date & Time of Evaluation Date of Evaluation: 11/01/18 Time of Evaluation: 12:00 - Subjective Subjective: Vented Objective - Vital Signs/Intake and Output Vital Signs (last 24 hours): Temp Pulse Resp BP Pulse Ox 99.1 F 119 H 12 87/55 L 95 11/02/18 18:00 11/02/18 18:00 11/02/18 18:00 11/02/18 18:00 11/02/18 18:00 Intake and Output: 11/02/18 11/03/18 18:59 06:59 Intake Total 1285 Output Total 900 Balance 385 - Medications Medications: Current Medications Famotidine (Pepcid) 20 mg IVP Q12 GLADIS Last Admin: 11/02/18 13:29 Dose: 20 mg Lactated Ringer's (Lactated Ringer's) 1,000 mls @ 50 mls/hr IV .Q20H GLADIS Last Admin: 10/31/18 05:45 Dose: 50 mls/hr Micafungin Sodium 50 mg/ (Sodium Chloride) 100 mls @ 100 mls/hr IVPB DAILY GLADIS; Protocol Last Admin: 11/02/18 09:38 Dose: 100 mls/hr Cefepime HCl 2 gm/ Sodium (Chloride) 100 mls @ 100 mls/hr IVPB Q12 GLADIS; Protocol Last Admin: 11/02/18 09:37 Dose: 100 mls/hr Vancomycin HCl 500 mg/ Sodium (Chloride) 100 mls @ 100 mls/hr IVPB Q12 GLADIS; Protocol Last Admin: 11/02/18 09:40 Dose: 100 mls/hr Norepinephrine Bitartrate 16 (mg/ Dextrose) 266 mls @ 4.99 mls/hr IV .Q24H ONE; Protocol Stop: 11/02/18 23:40 - Labs Labs: 11/02/18 04:18 11/02/18 04:18 PT 16.8 Seconds (9.8-13.1) H 10/27/18 05:12 INR 1.5 10/27/18 05:12 APTT 29.4 Seconds (25.6-37.1) 10/26/18 13:37 - Head Exam Head Exam: ATRAUMATIC - Eye Exam Eye Exam: Normal appearance - ENT Exam ENT Exam: Mucous Membranes Dry - Respiratory Exam Respiratory Exam: Decreased Breath Sounds - Cardiovascular Exam Cardiovascular Exam: +S1, +S2 - GI/Abdominal Exam GI & Abdominal Exam: Normal Bowel Sounds - Extremities Exam Extremities Exam: Pedal Edema Assessment and Plan (1) Anemia Assessment & Plan: anemia of chronic disease [employer] blood loss transfusion support PRN Status: Acute (2) Pulmonary embolism Assessment & Plan: not an anticoagulation candidate due to bleeding Status: Acute (3) 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
--- NOTE | 2018-11-02 20:28 | CP.PCM.PN ---
Subjective - Date & Time of Evaluation Date of Evaluation: 11/02/18 Time of Evaluation: 12:00 - Subjective Subjective: Vented Objective - Vital Signs/Intake and Output Vital Signs (last 24 hours): Temp Pulse Resp BP Pulse Ox 99.1 F 119 H 12 87/55 L 95 11/02/18 18:00 11/02/18 18:00 11/02/18 18:00 11/02/18 18:00 11/02/18 18:00 Intake and Output: 11/02/18 11/03/18 18:59 06:59 Intake Total 1285 Output Total 900 Balance 385 - Medications Medications: Current Medications Famotidine (Pepcid) 20 mg IVP Q12 GLADIS Last Admin: 11/02/18 13:29 Dose: 20 mg Lactated Ringer's (Lactated Ringer's) 1,000 mls @ 50 mls/hr IV .Q20H GLADIS Last Admin: 10/31/18 05:45 Dose: 50 mls/hr Micafungin Sodium 50 mg/ (Sodium Chloride) 100 mls @ 100 mls/hr IVPB DAILY GLADIS; Protocol Last Admin: 11/02/18 09:38 Dose: 100 mls/hr Cefepime HCl 2 gm/ Sodium (Chloride) 100 mls @ 100 mls/hr IVPB Q12 GLADIS; Protocol Last Admin: 11/02/18 09:37 Dose: 100 mls/hr Vancomycin HCl 500 mg/ Sodium (Chloride) 100 mls @ 100 mls/hr IVPB Q12 GLADIS; Protocol Last Admin: 11/02/18 09:40 Dose: 100 mls/hr Norepinephrine Bitartrate 16 (mg/ Dextrose) 266 mls @ 4.99 mls/hr IV .Q24H ONE; Protocol Stop: 11/02/18 23:40 - Labs Labs: 11/02/18 04:18 11/02/18 04:18 PT 16.8 Seconds (9.8-13.1) H 10/27/18 05:12 INR 1.5 10/27/18 05:12 APTT 29.4 Seconds (25.6-37.1) 10/26/18 13:37 - Head Exam Head Exam: ATRAUMATIC - Eye Exam Eye Exam: Normal appearance - ENT Exam ENT Exam: Mucous Membranes Dry - Respiratory Exam Respiratory Exam: Decreased Breath Sounds - Cardiovascular Exam Cardiovascular Exam: +S1, +S2 - GI/Abdominal Exam GI & Abdominal Exam: Normal Bowel Sounds - Extremities Exam Extremities Exam: Pedal Edema Assessment and Plan (1) Thrombocytopenia Assessment & Plan: progressive ? 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
[2018-11-03 05:36] LABS: HEMOGLOBIN 10.4 g/dL (12.0-16.0); MEAN CORPUSCULAR HEMOGLOBIN 30.3 pg (27.0-31.0); MEAN CORPUSCULAR HGB CONC 31.9 g/dL (33.0-37.0); RBC 3.42 Mil/uL (3.80-5.20); RED CELL DISTRIBUTION WIDTH 19.7 % (11.5-14.5); WHITE BLOOD COUNT 16.9 K/uL (4.8-10.8)
[2018-11-03 05:50] LABS: ABG ALLEN TEST YES; ARTERIAL BLOOD GAS HCO3 15.1 mmol/L (21-28); ARTERIAL BLOOD GAS HEMOGLOBIN 11.2 g/dL (11.7-17.4); ARTERIAL BLOOD GAS O2 CAPACITY 15.4 mL/dL (16-24); ARTERIAL BLOOD GAS O2 CONTENT 15.3 ML/dL (15-23); ARTERIAL BLOOD GAS O2 SAT 99.5 % (95-98); ARTERIAL BLOOD GAS PCO2 28 mm/Hg (35-45); ARTERIAL BLOOD GAS PH 7.27 (7.35-7.45); ARTERIAL BLOOD GAS PO2 101 mm/Hg (80-100); ARTERIAL BLOOD GAS TCO2 13.8 mmol/L (22-28)
[2018-11-03 06:14] LABS: ALB/GLOB RATIO 0.6 (1.0-2.1); ALBUMIN 1.7 g/dL (3.5-5.0); ALT/SGPT 23 U/L (9-52); AST/SGOT 17 U/L (14-36); BLOOD UREA NITROGEN 53 mg/dl (7-17); CALCIUM 7.4 mg/dL (8.4-10.2); GFR NON-AFRICAN AMERICAN > 60
--- NOTE | 2018-11-03 07:51 | RAD ---
Date of service: 11/03/2018 HISTORY: Trach to vent COMPARISON: Portable chest 11/02/2018. TECHNIQUE: 1 view obtained. FINDINGS: LUNGS: Tracheostomy and left MediPort unchanged in position as well as orogastric tube. No interval change in prominent left pleural effusion and possible limited right pleural effusion and potential for underlying bilateral airspace disease. No pneumothorax bilaterally. PLEURA: As above. CARDIOVASCULAR: No aortic atherosclerotic calcification present. Normal cardiac size. Pulmonary vascularity obscured by large left pleural effusion with none appreciated at the right. OSSEOUS STRUCTURES: No significant abnormalities. VISUALIZED UPPER ABDOMEN: Normal. OTHER FINDINGS: None. IMPRESSION: No interval improvement in large left pleural effusion and potential limited right pleural effusion. Underlying airspace disease remains not excluded at both sides. No pulmonary vascular congestion.
--- NOTE | 2018-11-03 08:12 | CP.CCUPN ---
CCU Subjective - Physician Review Subjective (Free Text): Lethargic mental status unchanged. Off Levophed almost 24H. She remains tachycardic at 115 /min with sinus mechanism. SBPs have been 80- 90s. No new temp spikes, temps remain 99-100F. She is 2.2 L positive fluid balance. ROS: No other pertinent negs or positive on 10+ system review obtainable due to lethargic status Other PMSFH: All other Nursing and physician documentation reviewed to date; no new pertinent info noted relevant to current medical problems. EXAM- HEENT: no icterus, pupils equal, 3 mm and reactive, no gaze preference, opens eyes briefly to pain, but no sustained wakeful state. NECK: no visible JVD, supple, carotids equal upstroke bilat/no bruits, trach stoma intact CHEST: decreased BS bases, no wheezes audible, bloody fluid drained dressing over R breast. Left chest portacath. HEART: regular, distant, tachy S1S2, no murmur audible, no rubs. ABD: soft, ++distention with ascites, no focal tenderness, BS hypoactive, dried necrotic lesion over umbilicus unchanged. Previous paracentesis puncture site still leaking ascitic fluid. EXT: + anasarca / edema UEs and LEs, no calf tenderness or palpable cords, distal pulses intact and symmetrical NEURO: withdraws to pain stimuli SKIN: no rashes LABS: WBC= 16.9 HGB= 10.4 PLTs = 61K Na= 131 K= 4.1 Cl= 108 HCO3= 16 BUN/Cr= 53/0.8 BS= 87 7.27/28/101 ABG CXR: (my interp)- Trach tube within tracheal air column, persistence of Left lung haziness and atelectasis- overall unchanged from last 2 days. IMPRESSION / MAJOR PROBLEMS NOW: 1. Acute hypoxemic Resp Failure, 2 bilat multi-lobar pneumonia/ Effusion 2. GPC Bacteremia 3. Severe Sepsis with shock, 2 Pneumonia, r/o bacteremia 4. Acute on Chronic disease Anemia and Persistent vaginal Bleeding 5. h/o DVT- bilat CFV (Aug 2018). PLAN: 1. Discuss with PMD regarding repeat thoracentesis and paracentesis: will hold on pursuing repeat procedure at this time. Fio2 requirements have not increased in spite of left effusion. 2. One positive BC on 10/31 growing S. aureus, no sensitivities yet. Subsequent repeat cultures beyond that tanya have been negative so far. On Vanco for now. Other Antibx and Antifx coverage noted. 3. Repeat serial Lactate levels. Elevation in Lactic Acid noted, ? secondary to bacteremia, but she has been becoming more acidotic since approx 10/29. WBC has been increasing and Platelets which had recovered post-chemo, are declining again. 4. Overall condition appears to be worsening despite aggressive measures in ICU, and has approached the point of medical futility. Yet, patients mother insists on continuing aggressive care. Cancer persists and is longer considered a candidate for ongoing chemotherapy. Given discrepant views between family and medical team, may need further clarification on goals for patient with recommendations from Ethics Committee. 5. No MV weans anticipated unless Left effusion can be further resolved. Satisfactory SPO2 on low level 35% oxygen.
[2018-11-03 08:30] LABS: VENOUS BLOOD GAS BASE EXCESS -11.6 mmol/L (0.0-2.0); VENOUS BLOOD GAS PCO2 36 mmHg (40-60); VENOUS BLOOD GAS PO2 41 mm/Hg (30-55); VENOUS BLOOD PH 7.23 (7.32-7.43)
[2018-11-03] MEDS: Cefepime 2 GM in Sodium Chloride 0.9% 100 ML IVPB SCH ×2 (08:46→21:17)
--- NOTE | 2018-11-03 11:53 | CP.PCM.PN ---
Subjective - Date & Time of Evaluation Date of Evaluation: 11/03/18 Time of Evaluation: 11:53 - Subjective Subjective: ID Note- Patient seen and examined today in ICU. remains on the vent. eyes open but not following any commands. Objective - Vital Signs/Intake and Output Vital Signs (last 24 hours): Temp Pulse Resp BP Pulse Ox 98.0 F 112 H 13 92/53 L 99 11/03/18 10:00 11/03/18 11:00 11/03/18 11:00 11/03/18 11:00 11/03/18 11:00 Intake and Output: 11/03/18 11/03/18 06:59 18:59 Intake Total 1320 607 Output Total 1025 400 Balance 295 207 - Medications Medications: Current Medications Famotidine (Pepcid) 20 mg IVP Q12 GLADIS Last Admin: 11/03/18 08:50 Dose: 20 mg Lactated Ringer's (Lactated Ringer's) 1,000 mls @ 50 mls/hr IV .Q20H GLADIS Last Admin: 10/31/18 05:45 Dose: 50 mls/hr Micafungin Sodium 50 mg/ (Sodium Chloride) 100 mls @ 100 mls/hr IVPB DAILY GLADIS; Protocol Last Admin: 11/03/18 08:47 Dose: 100 mls/hr Cefepime HCl 2 gm/ Sodium (Chloride) 100 mls @ 100 mls/hr IVPB Q12 GLADIS; Protocol Last Admin: 11/03/18 08:46 Dose: 100 mls/hr Vancomycin HCl 500 mg/ Sodium (Chloride) 100 mls @ 100 mls/hr IVPB Q12 GLADIS; Protocol Last Admin: 11/03/18 08:50 Dose: 100 mls/hr Norepinephrine Bitartrate 16 (mg/ Dextrose) 266 mls @ 2.49 mls/hr IV .Q24H ONE; Protocol Stop: 11/04/18 08:11 Last Titration: 11/03/18 08:42 Dose: 5 mcg/min, 4.99 mls/hr - Labs Labs: - Additional Findings Additional findings: - Constitutional Appears: Chronically Ill Additional comments: - ENT Exam Additional comments: s/p trache - Respiratory Exam Additional comments: On the vent via Trach decreased breath sounds on left side - Cardiovascular Exam Cardiovascular Exam: Tachycardia, +S1, +S2 - GI/Abdominal Exam Additional comments: distended , soft hypoactive BS + ascites anasarca weeping from previous paracenthesis site and has bag over it draining clear fluid - Extremities Exam Additional comments: b/l 2+ edema in LE and UE - Neurological Exam Additional comments: does not follow any commands Laboratory Results - last 72 hr 11/01/18 11/01/18 11/01/18 04:26 05:40 05:40 WBC 15.2 H RBC 2.45 L Hgb 7.6 L Hct 24.5 L MCV 99.6 H D MCH 31.0 MCHC 31.1 L RDW 18.7 H Plt Count 109 L D Fibrinogen pCO2 29 L pO2 104 H HCO3 19.0 L ABG pH 7.37 ABG Total CO2 17.7 L ABG O2 Saturation 99.1 H ABG O2 Content 10.6 L ABG Base Excess -7.6 L ABG Hemoglobin 7.6 L ABG Carboxyhemoglobin 0.8 POC ABG HHb (Measured) 0.9 ABG Methemoglobin 1.4 ABG O2 Capacity 10.7 L Frederic Test Yes VBG pH VBG pCO2 VBG HCO3 VBG Total CO2 VBG O2 Sat (Calc) VBG Base Excess VBG Potassium A-a O2 Difference 109.0 Hgb O2 Saturation 96.9 Glucose Lactate Vent Mode Prvc/ac Mechanical Rate 12 FiO2 35.0 Tidal Volume 450 PEEP 5 Crit Value Called To Crit Value Called By Crit Value Read Back Blood Gas Notified Time Sodium 129 L Potassium 3.4 L Chloride 105 Carbon Dioxide 15 L Anion Gap 12 BUN 54 H Creatinine 0.7 Est GFR ( Amer) > 60 Est GFR (Non-Af Amer) > 60 Random Glucose 134 H Calcium 6.8 L Total Bilirubin AST ALT Alkaline Phosphatase Total Protein Albumin Globulin Albumin/Globulin Ratio Venous Blood Potassium Vancomycin Trough Blood Type Antibody Screen Crossmatch BBK History Checked 11/01/18 11/02/18 11/02/18 11:30 03:46 04:18 WBC 16.2 H RBC 3.62 L Hgb 10.9 L D Hct 33.8 L MCV 93.4 D MCH 30.2 MCHC 32.4 L RDW 19.2 H Plt Count 73 L D Fibrinogen pCO2 31 L pO2 101 H HCO3 16.3 L ABG pH 7.28 L ABG Total CO2 15.6 L ABG O2 Saturation 99.2 H ABG O2 Content 15.5 ABG Base Excess -11.0 L ABG Hemoglobin 11.4 L ABG Carboxyhemoglobin 1.9 H POC ABG HHb (Measured) 0.8 ABG Methemoglobin 1.8 ABG O2 Capacity 15.6 L Frederic Test Yes VBG pH VBG pCO2 VBG HCO3 VBG Total CO2 VBG O2 Sat (Calc) VBG Base Excess VBG Potassium A-a O2 Difference 110.0 Hgb O2 Saturation 95.5 Glucose Lactate Vent Mode A/c Mechanical Rate 12 FiO2 35.0 Tidal Volume 450 PEEP 5 Crit Value Called To Crit Value Called By Crit Value Read Back Blood Gas Notified Time Sodium Potassium Chloride Carbon Dioxide Anion Gap BUN Creatinine Est GFR ( Amer) Est GFR (Non-Af Amer) Random Glucose Calcium Total Bilirubin AST ALT Alkaline Phosphatase Total Protein Albumin Globulin Albumin/Globulin Ratio Venous Blood Potassium Vancomycin Trough Blood Type A POSITIVE Antibody Screen Negative Crossmatch See Detail BBK History Checked Patient has bt 11/02/18 11/02/18 11/03/18 04:18 07:00 05:00 WBC RBC Hgb Hct MCV MCH MCHC RDW Plt Count Fibrinogen pCO2 pO2 40 HCO3 ABG pH ABG Total CO2 ABG O2 Saturation ABG O2 Content ABG Base Excess ABG Hemoglobin ABG Carboxyhemoglobin POC ABG HHb (Measured) ABG Methemoglobin ABG O2 Capacity Frederic Test VBG pH 7.26 L VBG pCO2 32 L VBG HCO3 15.4 VBG Total CO2 15.4 L VBG O2 Sat (Calc) 78.5 H VBG Base Excess -11.6 L VBG Potassium 4.0 A-a O2 Difference Hgb O2 Saturation Glucose 132 H Lactate 4.1 H* Vent Mode Mechanical Rate FiO2 35.0 Tidal Volume PEEP 5 Crit Value Called To Madisyn coffman Crit Value Called By 15 Crit Value Read Back Y Blood Gas Notified Time 825 Sodium 130 L 130.0 L Potassium 4.0 Chloride 106 101.0 Carbon Dioxide 16 L Anion Gap 12 BUN 53 H Creatinine 0.7 Est GFR ( Amer) > 60 Est GFR (Non-Af Amer) > 60 Random Glucose 132 H Calcium 7.3 L Total Bilirubin AST ALT Alkaline Phosphatase Total Protein Albumin Globulin Albumin/Globulin Ratio Venous Blood Potassium 4.0 Vancomycin Trough 27.7 H Blood Type Antibody Screen Crossmatch BBK History Checked 11/03/18 11/03/18 11/03/18 05:00 05:00 05:00 WBC 16.9 H RBC 3.42 L Hgb 10.4 L Hct 32.5 L MCV 95.0 MCH 30.3 MCHC 31.9 L RDW 19.7 H Plt Count 61 L Fibrinogen 136 L pCO2 pO2 HCO3 ABG pH ABG Total CO2 ABG O2 Saturation ABG O2 Content ABG Base Excess ABG Hemoglobin ABG Carboxyhemoglobin POC ABG HHb (Measured) ABG Methemoglobin ABG O2 Capacity Frederic Test VBG pH VBG pCO2 VBG HCO3 VBG Total CO2 VBG O2 Sat (Calc) VBG Base Excess VBG Potassium A-a O2 Difference Hgb O2 Saturation Glucose Lactate Vent Mode Mechanical Rate FiO2 Tidal Volume PEEP Crit Value Called To Crit Value Called By Crit Value Read Back Blood Gas Notified Time Sodium 131 L Potassium 4.1 Chloride 108 H Carbon Dioxide 16 L Anion Gap 11 BUN 53 H Creatinine 0.8 Est GFR ( Amer) > 60 Est GFR (Non-Af Amer) > 60 Random Glucose 87 Calcium 7.4 L Total Bilirubin 0.4 AST 17 ALT 23 Alkaline Phosphatase 142 H D Total Protein 4.6 L Albumin 1.7 L Globulin 2.9 Albumin/Globulin Ratio 0.6 L Venous Blood Potassium Vancomycin Trough Blood Type Antibody Screen Crossmatch BBK History Checked 11/03/18 11/03/18 05:11 07:34 WBC RBC Hgb Hct MCV MCH MCHC RDW Plt Count Fibrinogen pCO2 28 L pO2 101 H 41 HCO3 15.1 L ABG pH 7.27 L ABG Total CO2 13.8 L ABG O2 Saturation 99.5 H ABG O2 Content 15.3 ABG Base Excess -12.6 L ABG Hemoglobin 11.2 L ABG Carboxyhemoglobin 1.8 H POC ABG HHb (Measured) 0.5 ABG Methemoglobin 1.6 ABG O2 Capacity 15.4 L Frederic Test Yes VBG pH 7.23 L VBG pCO2 36 L VBG HCO3 15.4 VBG Total CO2 16.2 L VBG O2 Sat (Calc) 78.5 H VBG Base Excess -11.6 L VBG Potassium 3.8 A-a O2 Difference 114.0 Hgb O2 Saturation 96.1 Glucose 111 H Lactate 2.0 Vent Mode A/c Mechanical Rate 12 FiO2 35.0 35.0 Tidal Volume 450 PEEP 5 5 Crit Value Called To Crit Value Called By Crit Value Read Back Blood Gas Notified Time Sodium 130.0 L Potassium Chloride 103.0 Carbon Dioxide Anion Gap BUN Creatinine Est GFR ( Amer) Est GFR (Non-Af Amer) Random Glucose Calcium Total Bilirubin AST ALT Alkaline Phosphatase Total Protein Albumin Globulin Albumin/Globulin Ratio Venous Blood Potassium 3.8 Vancomycin Trough Blood Type Antibody Screen Crossmatch BBK History Checked Microbiology 10/29/18 14:30 Blood-Venous Blood Culture - Final NO GROWTH AFTER 5 DAYS 10/29/18 14:30 Blood-Venous Gram Stain - Final TEST NOT PERFORMED 10/29/18 14:40 Blood-Venous Blood Culture - Final NO GROWTH AFTER 5 DAYS 10/29/18 14:40 Blood-Venous Gram Stain - Final TEST NOT PERFORMED 10/31/18 07:00 Blood-Thru Central Line S.aureus & Coag-Neg Staph PNA FISH - Final 10/31/18 07:00 Blood-Thru Central Line Blood Culture - Final Coagulase Neg Staphylococcus 10/31/18 07:00 Blood-Thru Central Line Gram Stain - Final 11/01/18 04:58 Blood-Venous Blood Culture - Preliminary NO GROWTH AFTER 48 HOURS 11/02/18 04:18 Blood-Thru Central Line Blood Culture - Preliminary NO GROWTH AFTER 24 HOURS 11/02/18 04:18 Blood-Venous Blood Culture - Preliminary NO GROWTH AFTER 24 HOURS 10/31/18 09:02 Trachasp Gram Stain - Final 10/27/18 14:00 Blood-Thru Central Line Blood Culture - Final NO GROWTH AFTER 5 DAYS 10/27/18 14:00 Blood-Thru Central Line Gram Stain - Final TEST NOT PERFORMED 10/26/18 18:20 Blood-Thru Central Line Blood Culture - Final NO GROWTH AFTER 5 DAYS 10/21/18 08:00 Urine,Catheterized Urine Culture - Preliminary Catrachito Species 10/18/18 11:55 Blood-Thru Central Line Blood Culture - Final NO GROWTH AFTER 5 DAYS 10/18/18 11:55 Blood-Thru Central Line Gram Stain - Final TEST NOT PERFORMED 10/05/18 06:15 Blood Blood Culture - Final NO GROWTH AFTER 5 DAYS 10/05/18 06:15 Blood Gram Stain - Final TEST NOT PERFORMED 10/05/18 06:30 Blood Blood Culture - Final NO GROWTH AFTER 5 DAYS 10/05/18 06:30 Blood Gram Stain - Final TEST NOT PERFORMED 10/05/18 07:10 Urine,Hardwick Urine Culture - Final Yeast Species 09/25/18 12:10 Blood-Thru Central Line Blood Culture - Final NO GROWTH AFTER 5 DAYS 09/25/18 12:10 Blood-Thru Central Line Gram Stain - Final TEST NOT PERFORMED 09/20/18 14:00 Blood-Thru Central Line Blood Culture - Final NO GROWTH AFTER 5 DAYS 09/20/18 17:53 Trachasp Gram Stain - Final 09/20/18 17:53 Trachasp Sputum Culture - Final Yeast Species 09/20/18 17:53 Urine,Hardwick Urine Culture - Final No Growth (<1,000 CFU/ML) 09/15/18 15:35 Blood-Thru Central Line Blood Culture - Final NO GROWTH AFTER 5 DAYS 09/15/18 15:35 Blood-Thru Central Line Gram Stain - Final TEST NOT PERFORMED 09/15/18 15:25 Blood-Thru Central Line Blood Culture - Final NO GROWTH AFTER 5 DAYS 09/15/18 15:25 Blood-Thru Central Line Gram Stain - Final TEST NOT PERFORMED 09/08/18 11:49 Blood-Venous Blood Culture - Final NO GROWTH AFTER 5 DAYS 09/08/18 11:49 Blood-Venous Gram Stain - Final TEST NOT PERFORMED 09/08/18 11:49 Blood-Venous Blood Culture - Final NO GROWTH AFTER 5 DAYS 09/08/18 11:49 Blood-Venous Gram Stain - Final TEST NOT PERFORMED 09/07/18 Unknown Blood-Thru Central Line Blood Culture - Final NO GROWTH AFTER 5 DAYS 09/07/18 Unknown Blood-Thru Central Line Gram Stain - Final TEST NOT PERFORMED 09/07/18 Unknown Blood-Thru Central Line Blood Culture - Final NO GROWTH AFTER 5 DAYS 09/07/18 Unknown Blood-Thru Central Line Gram Stain - Final TEST NOT PERFORMED 09/07/18 09:07 Trachasp Gram Stain - Final 09/07/18 09:07 Trachasp Sputum Culture - Final Yeast Species 09/04/18 11:25 Naris MRSA Culture (Admit) - Final MRSA NOT DETECTED Accession No. : [id number] Patient Name / ID : RYLEE ONEIL / [id number] Exam Date : 11/03/2018 04:49:58 ( Approved ) Study Comment : Sex / Age : F / [id number] Creator : Syed Avalos MD Dictator : Syed Avalos MD Hot Top Liner : Painting Instructor : Syed Avalos MD Approver2 : Report Date : 11/03/2018 07:46:14 My Comment : Date of service: 11/03/2018 HISTORY: Trach to vent COMPARISON: Portable chest 11/02/2018. TECHNIQUE: 1 view obtained. FINDINGS: LUNGS: Tracheostomy and left MediPort unchanged in position as well as orogastric tube. No interval change in prominent left pleural effusion and possible limited right pleural effusion and potential for underlying bilateral airspace disease. No pneumothorax bilaterally. PLEURA: As above. CARDIOVASCULAR: No aortic atherosclerotic calcification present. Normal cardiac size. Pulmonary vascularity obscured by large left pleural effusion with none appreciated at the right. OSSEOUS STRUCTURES: No significant abnormalities. VISUALIZED UPPER ABDOMEN: Normal. OTHER FINDINGS: None. IMPRESSION: No interval improvement in large left pleural effusion and potential limited right pleural effusion. Underlying airspace disease remains not excluded at both sides. No pulmonary vascular congestion. 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 remains on the vent on levophed . afebrile today. leukocytosis slightly increased today could be secondary to accumulating left pleural fluid again. one blood cx from port 10/31/2018 - reported as gram pos cocci repeat blood cx from the port 11/02/2018- negative blood cx-11/01/2018- neg blood cx- neg x 11 trach asp cx- yeast ( treated) stool c.diff- negative repeat UA- negative repeat urine cx- yeast ( treated) hardwick removed 4 days ago repeat urine cx - yeast finally ID as catrachito lipolytica ( hardwick was removed a week ago). cxr - b/l pleural effusions PLan- had been off antibiotics for past 10 days since her leukocytosis had resolved and was afebrile and had already completed 38 days of meropnem , 34 days of fluconazole, 25 days of vanco (empirically). check trach asp cx. restarted abx again 4 days ago in light of her remaining on the vent and pleural effusion and her immunocompromised status secondary to metastastatic cancer to cover for VAP . continue with vanco and cefepime day #4 keep vanco trough <15. f/u ID and sens of the gram pos cocci in the port blood cx report. ( could be contaminant since she has been on vanco and all her other blood cx both through port and peripheral have been negative) repeat blood cx from port- negative continue with micafungin as well for C.Lipolytica in urine cx.day #7 would most likely need another thoracenthesis to relieve the left pleural effusion. prognosis very poor. critical care time spent 35 minutes.
--- NOTE | 2018-11-03 12:39 | CP.PCM.PN ---
Subjective - Date & Time of Evaluation Date of Evaluation: 11/03/18 Time of Evaluation: 12:37 - Subjective Subjective: no overnight events Objective - Vital Signs/Intake and Output Vital Signs (last 24 hours): Temp Pulse Resp BP Pulse Ox 98.6 F 121 H 12 91/54 L 99 11/03/18 12:00 11/03/18 12:00 11/03/18 12:00 11/03/18 12:00 11/03/18 12:00 Intake and Output: 11/03/18 11/03/18 06:59 18:59 Intake Total 1320 877 Output Total 1025 400 Balance 295 477 - Medications Medications: Current Medications Famotidine (Pepcid) 20 mg IVP Q12 GLADIS Last Admin: 11/03/18 08:50 Dose: 20 mg Lactated Ringer's (Lactated Ringer's) 1,000 mls @ 50 mls/hr IV .Q20H GLADIS Last Admin: 10/31/18 05:45 Dose: 50 mls/hr Micafungin Sodium 50 mg/ (Sodium Chloride) 100 mls @ 100 mls/hr IVPB DAILY GLADIS; Protocol Last Admin: 11/03/18 08:47 Dose: 100 mls/hr Cefepime HCl 2 gm/ Sodium (Chloride) 100 mls @ 100 mls/hr IVPB Q12 GLADIS; Protocol Last Admin: 11/03/18 08:46 Dose: 100 mls/hr Vancomycin HCl 500 mg/ Sodium (Chloride) 100 mls @ 100 mls/hr IVPB Q12 GLADIS; Protocol Last Admin: 11/03/18 08:50 Dose: 100 mls/hr Norepinephrine Bitartrate 16 (mg/ Dextrose) 266 mls @ 2.49 mls/hr IV .Q24H ONE; Protocol Stop: 11/04/18 08:11 Last Titration: 11/03/18 08:42 Dose: 5 mcg/min, 4.99 mls/hr - Labs Labs: 11/03/18 05:00 11/03/18 05:00 PT 16.8 Seconds (9.8-13.1) H 10/27/18 05:12 INR 1.5 10/27/18 05:12 APTT 29.4 Seconds (25.6-37.1) 10/26/18 13:37 - Respiratory Exam Respiratory Exam: Rhonchi, NORMAL BREATHING PATTERN - Cardiovascular Exam Cardiovascular Exam: REGULAR RHYTHM - GI/Abdominal Exam GI & Abdominal Exam: Distended, Soft, Normal Bowel Sounds - Rectal Exam Rectal Exam: Deferred Assessment and Plan - Assessment and Plan (Free Text) Assessment: 58 yo female with terminal cancer leakage of ascitic fluid from previous paracentesis site uncontrolled ascites is a contraindication for peg placement in this case, risks outweigh benefits goals for care
--- NOTE | 2018-11-03 12:43 | CP.PCM.PN ---
Subjective - Date & Time of Evaluation Date of Evaluation: 11/03/18 Time of Evaluation: 12:41 - Subjective Subjective: now in icu Objective - Vital Signs/Intake and Output Vital Signs (last 24 hours): Temp Pulse Resp BP Pulse Ox 98.6 F 121 H 12 91/54 L 99 11/03/18 12:00 11/03/18 12:00 11/03/18 12:00 11/03/18 12:00 11/03/18 12:00 Intake and Output: 11/03/18 11/03/18 06:59 18:59 Intake Total 1320 877 Output Total 1025 400 Balance 295 477 - Medications Medications: Current Medications Famotidine (Pepcid) 20 mg IVP Q12 GLADIS Last Admin: 11/03/18 08:50 Dose: 20 mg Lactated Ringer's (Lactated Ringer's) 1,000 mls @ 50 mls/hr IV .Q20H GLADIS Last Admin: 10/31/18 05:45 Dose: 50 mls/hr Micafungin Sodium 50 mg/ (Sodium Chloride) 100 mls @ 100 mls/hr IVPB DAILY GLADIS; Protocol Last Admin: 11/03/18 08:47 Dose: 100 mls/hr Cefepime HCl 2 gm/ Sodium (Chloride) 100 mls @ 100 mls/hr IVPB Q12 GLADIS; Protocol Last Admin: 11/03/18 08:46 Dose: 100 mls/hr Vancomycin HCl 500 mg/ Sodium (Chloride) 100 mls @ 100 mls/hr IVPB Q12 GLADIS; Protocol Last Admin: 11/03/18 08:50 Dose: 100 mls/hr Norepinephrine Bitartrate 16 (mg/ Dextrose) 266 mls @ 2.49 mls/hr IV .Q24H ONE; Protocol Stop: 11/04/18 08:11 Last Titration: 11/03/18 08:42 Dose: 5 mcg/min, 4.99 mls/hr - Labs Labs: 11/03/18 05:00 11/03/18 05:00 PT 16.8 Seconds (9.8-13.1) H 10/27/18 05:12 INR 1.5 10/27/18 05:12 APTT 29.4 Seconds (25.6-37.1) 10/26/18 13:37 - Head Exam Head Exam: NORMOCEPHALIC - Neck Exam Neck Exam: Normal Inspection - Respiratory Exam Respiratory Exam: Rhonchi, NORMAL BREATHING PATTERN - Cardiovascular Exam Cardiovascular Exam: REGULAR RHYTHM - GI/Abdominal Exam GI & Abdominal Exam: Soft, Tenderness, Normal Bowel Sounds Assessment and Plan - Assessment and Plan (Free Text) Assessment: 58 yo female with pancreatitis now tachy and febril3 ID input panc cysts may be early forming pseudocysts
--- NOTE | 2018-11-03 19:53 | CP.PCM.PN ---
Subjective - Date & Time of Evaluation Date of Evaluation: 11/03/18 Time of Evaluation: 11:00 - Subjective Subjective: Vented Objective - Vital Signs/Intake and Output Vital Signs (last 24 hours): Temp Pulse Resp BP Pulse Ox 98.8 F 115 H 13 97/60 L 98 11/03/18 17:55 11/03/18 17:55 11/03/18 17:55 11/03/18 17:55 11/03/18 17:55 Intake and Output: 11/03/18 11/04/18 18:59 06:59 Intake Total 1325 Output Total 2050 Balance -725 - Medications Medications: Current Medications Famotidine (Pepcid) 20 mg IVP Q12 GLADIS Last Admin: 11/03/18 08:50 Dose: 20 mg Lactated Ringer's (Lactated Ringer's) 1,000 mls @ 50 mls/hr IV .Q20H GLADIS Last Admin: 10/31/18 05:45 Dose: 50 mls/hr Micafungin Sodium 50 mg/ (Sodium Chloride) 100 mls @ 100 mls/hr IVPB DAILY GLADIS; Protocol Last Admin: 11/03/18 08:47 Dose: 100 mls/hr Cefepime HCl 2 gm/ Sodium (Chloride) 100 mls @ 100 mls/hr IVPB Q12 GLADIS; Protocol Last Admin: 11/03/18 08:46 Dose: 100 mls/hr Vancomycin HCl 500 mg/ Sodium (Chloride) 100 mls @ 100 mls/hr IVPB Q12 GLADIS; Protocol Last Admin: 11/03/18 08:50 Dose: 100 mls/hr Norepinephrine Bitartrate 16 (mg/ Dextrose) 266 mls @ 2.49 mls/hr IV .Q24H ONE; Protocol Stop: 11/04/18 08:11 Last Titration: 11/03/18 08:42 Dose: 5 mcg/min, 4.99 mls/hr - Labs Labs: 11/03/18 05:00 11/03/18 05:00 PT 16.8 Seconds (9.8-13.1) H 10/27/18 05:12 INR 1.5 10/27/18 05:12 APTT 29.4 Seconds (25.6-37.1) 10/26/18 13:37 - Head Exam Head Exam: ATRAUMATIC - Eye Exam Eye Exam: Normal appearance - ENT Exam ENT Exam: Mucous Membranes Dry - Respiratory Exam Respiratory Exam: Decreased Breath Sounds - Cardiovascular Exam Cardiovascular Exam: +S1, +S2 - GI/Abdominal Exam GI & Abdominal Exam: Normal Bowel Sounds Assessment and Plan (1) DIC (disseminated intravascular coagulation) Assessment & Plan: low fibrinogen may be related to sepsis - on antibiotics Status: Acute (2) Thrombocytopenia Assessment & Plan: secondary to DIC and sepsis Status: Resolved (3) Anemia Assessment & Plan: anemia of chronic disease [employer]AT[employer]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
[2018-11-04] MEDS: Lactated Ringer's 1,000 ML IV SCH (04:27)
[2018-11-04 04:48] LABS: ABG ALLEN TEST YES; ARTERIAL BLOOD GAS HCO3 15.9 mmol/L (21-28); ARTERIAL BLOOD GAS HEMOGLOBIN 10.1 g/dL (11.7-17.4); ARTERIAL BLOOD GAS O2 CAPACITY 13.9 mL/dL (16-24); ARTERIAL BLOOD GAS O2 CONTENT 13.9 ML/dL (15-23); ARTERIAL BLOOD GAS O2 SAT 99.9 % (95-98); ARTERIAL BLOOD GAS PCO2 32 mm/Hg (35-45); ARTERIAL BLOOD GAS PH 7.26 (7.35-7.45); ARTERIAL BLOOD GAS PO2 111 mm/Hg (80-100); ARTERIAL BLOOD GAS TCO2 15.4 mmol/L (22-28)
[2018-11-04 07:23] LABS: INR 1.6; PROTHROMBIN TIME 17.9 Seconds (9.8-13.1)
[2018-11-04 07:25] LABS: PARTIAL THROMBOPLASTIN TIME 37.2 Seconds (25.6-37.1)
[2018-11-04 07:27] LABS: HEMOGLOBIN 10.2 g/dL (12.0-16.0); LYMPH # 0.4 K/uL (1.0-4.3); LYMPH % 2.1 % (20.0-40.0); MEAN CELL VOLUME 95.9 fl (81.0-99.0); MEAN CORPUSCULAR HEMOGLOBIN 30.7 pg (27.0-31.0); MEAN PLATELET VOLUME 10.6 fl (7.2-11.7); MONO # 1.2 K/uL (0.0-0.8); MONO % 5.8 % (0.0-10.0); NEUT # 18.9 K/uL (1.8-7.0); NEUT % 92.1 % (50.0-75.0); NRBC % 0.1 % (0.0-0.0); PLATELET COUNT 61 K/uL (130-400); RBC 3.31 Mil/uL (3.80-5.20); RED CELL DISTRIBUTION WIDTH 19.6 % (11.5-14.5); WHITE BLOOD COUNT 20.6 K/uL (4.8-10.8)
[2018-11-04 07:47] LABS: ALB/GLOB RATIO 0.6 (1.0-2.1); ALBUMIN 1.8 g/dL (3.5-5.0); ALT/SGPT 21 U/L (9-52); AST/SGOT 16 U/L (14-36); BLOOD UREA NITROGEN 57 mg/dl (7-17); CALCIUM 7.5 mg/dL (8.4-10.2); GFR NON-AFRICAN AMERICAN > 60
[2018-11-04] MEDS: Cefepime 2 GM in Sodium Chloride 0.9% 100 ML IVPB SCH ×2 (08:30→20:18)
--- NOTE | 2018-11-04 10:02 | CP.CCUPN ---
CCU Subjective - Physician Review Subjective (Free Text): Lethargic mental status unchanged. Resumed Levophed, at 5 mcg dose now. She remains tachycardic at 110 /min with sinus mechanism. SBPs have been 90s. No new temp spikes, temps remain 99-100F. She is oliguric via straight cathing, but other significant fluid losses noted form leakage of fluid from paracentesis site and R thigh. Breathing 13 on AC 12 mode, SPo2 remains stable at 99-100%. ROS: No other pertinent negs or positive on 10+ system review obtainable due to lethargic status Other PMSFH: All other Nursing and physician documentation reviewed to date; no new pertinent info noted relevant to current medical problems. EXAM- HEENT: no icterus, pupils equal, 3 mm and reactive, no gaze preference, opens eyes briefly to pain, but no sustained wakeful state. NECK: no visible JVD, supple, carotids equal upstroke bilat/no bruits, trach stoma intact CHEST: decreased BS bases, no wheezes audible, bloody fluid drained dressing over R breast. Left chest portacath. HEART: regular, distant, tachy S1S2, no murmur audible, no rubs. ABD: soft, ++distention with ascites, no focal tenderness, BS hypoactive, dried necrotic lesion over umbilicus unchanged. Previous paracentesis puncture site still leaking ascitic fluid. EXT: + anasarca / edema UEs and LEs, no calf tenderness or palpable cords, distal pulses intact and symmetrical NEURO: withdraws to pain stimuli SKIN: no rashes LABS: WBC= 20.6 HGB= 10.2 PLTs = 61K Na= 131 K= 4.0 Cl= 107 HCO3= 14 BUN/Cr= 57/0.8 BS= 128 7.27/32/111 ABG CXR: (my interp)- Trach tube within tracheal air column, persistence of Left lung haziness and atelectasis- overall unchanged again today from previous week films. IMPRESSION / MAJOR PROBLEMS NOW: 1. Acute hypoxemic Resp Failure, 2 bilat multi-lobar pneumonia/ Effusion 2. GPC Bacteremia 3. Severe Sepsis with shock, 2 Pneumonia, r/o bacteremia 4. Acute on Chronic disease Anemia and Persistent vaginal Bleeding 5. h/o DVT- bilat CFV (Aug 2018). PLAN: 1. Discussed with PMD regarding repeat thoracentesis and paracentesis: will hold on pursuing repeat procedures at this time. Fio2 requirements have not increased in spite of left effusion. Significant leakage volume noted from previous paracentesis wound site, up to almost 2000ml per day. 2. One positive BC on 10/31 growing S. aureus, no sensitivities yet. Subsequent repeat cultures beyond that date have been negative so far. On Vanco for now. Other Antibx and Antifx coverage noted. 3. Repeat serial Lactate levels. Elevation in Lactic Acid noted, but as Levophed has been resumed, repeat Lactate yesterday was normal. WBC has been increasing and Platelets which had recovered post-chemo, are declining and low again. 4. No MV weans anticipated unless Left effusion can be further resolved. Satisfactory SPO2 on low level 35% oxygen. 5. Overall condition appears to be worsening despite aggressive measures in ICU, and has approached the point of medical futility. Yet, patients mother insists on continuing aggressive care. Cancer persists and is longer considered a candidate for ongoing chemotherapy. Given discrepant views between family and medical team, may need further clarification on goals for patient with recommendations from an Ethics Committee discussion.
[2018-11-04 11:31] LABS: BANDS 6 % (0-2); HYPOCHROMIC SLIGHT; LYMPHOCYTE 1 % (20-50); MONOCYTE 4 % (0-10); NEUTROPHIL 89 % (42-75); OVALOCYTES SLIGHT; PLATELET ESTIMATE DECREASED (NORMAL); POIKILOCYTOSIS SLIGHT; TOTAL CELLS COUNTED 100
[2018-11-04 11:32] LABS: TOXIC GRANULATION PRESENT
--- NOTE | 2018-11-04 11:52 | CP.PCM.PN ---
Subjective - Date & Time of Evaluation Date of Evaluation: 11/04/18 Time of Evaluation: 11:52 - Subjective Subjective: Id Note- Pt. seen and examined today in ICU. remains on the vent and not responsive. Objective - Vital Signs/Intake and Output Vital Signs (last 24 hours): Temp Pulse Resp BP Pulse Ox 98.6 F 112 H 14 84/52 L 100 11/04/18 08:00 11/04/18 10:00 11/04/18 10:00 11/04/18 10:00 11/04/18 10:00 Intake and Output: 11/04/18 11/04/18 06:59 18:59 Intake Total 1200 468 Output Total 725 50 Balance 475 418 - Medications Medications: Current Medications Famotidine (Pepcid) 20 mg IVP Q12 GLADIS Last Admin: 11/04/18 08:34 Dose: 20 mg Lactated Ringer's (Lactated Ringer's) 1,000 mls @ 50 mls/hr IV .Q20H GLADIS Last Admin: 11/04/18 04:27 Dose: 50 mls/hr Micafungin Sodium 50 mg/ (Sodium Chloride) 100 mls @ 100 mls/hr IVPB DAILY GLADIS; Protocol Last Admin: 11/04/18 08:29 Dose: 100 mls/hr Cefepime HCl 2 gm/ Sodium (Chloride) 100 mls @ 100 mls/hr IVPB Q12 GLADIS; Protocol Last Admin: 11/04/18 08:30 Dose: 100 mls/hr Vancomycin HCl 500 mg/ Sodium (Chloride) 100 mls @ 100 mls/hr IVPB Q12 GLADIS; Protocol Last Admin: 11/03/18 08:50 Dose: 100 mls/hr - Labs Labs: - Additional Findings Additional findings: - Constitutional Appears: Chronically Ill Additional comments: - ENT Exam Additional comments: s/p trache - Respiratory Exam Additional comments: On the vent via Trach decreased breath sounds on left side - Cardiovascular Exam Cardiovascular Exam: Tachycardia, +S1, +S2 - GI/Abdominal Exam Additional comments: distended , soft hypoactive BS + ascites anasarca weeping from previous paracenthesis site and has bag over it draining clear fluid - Extremities Exam Additional comments: b/l 2+ edema in LE and UE - Neurological Exam Additional comments: does not follow any commands Laboratory Results - last 72 hr 11/01/18 11/02/18 11/02/18 11:30 03:46 04:18 WBC 16.2 H RBC 3.62 L Hgb 10.9 L D Hct 33.8 L MCV 93.4 D MCH 30.2 MCHC 32.4 L RDW 19.2 H Plt Count 73 L D MPV Neut % (Auto) Lymph % (Auto) Ogle % (Auto) Eos % (Auto) Baso % (Auto) Neut # (Auto) Lymph # (Auto) Ogle # (Auto) Eos # (Auto) Baso # (Auto) Neutrophils % (Manual) Band Neutrophils % Lymphocytes % (Manual) Monocytes % (Manual) Toxic Granulation Platelet Estimate Hypochromasia (manual) Poikilocytosis (manual Ovalocytes PT INR APTT Fibrinogen pCO2 31 L pO2 101 H HCO3 16.3 L ABG pH 7.28 L ABG Total CO2 15.6 L ABG O2 Saturation 99.2 H ABG O2 Content 15.5 ABG Base Excess -11.0 L ABG Hemoglobin 11.4 L ABG Carboxyhemoglobin 1.9 H POC ABG HHb (Measured) 0.8 ABG Methemoglobin 1.8 ABG O2 Capacity 15.6 L Frederic Test Yes VBG pH VBG pCO2 VBG HCO3 VBG Total CO2 VBG O2 Sat (Calc) VBG Base Excess VBG Potassium A-a O2 Difference 110.0 Hgb O2 Saturation 95.5 Glucose Lactate Vent Mode A/c Mechanical Rate 12 FiO2 35.0 Tidal Volume 450 PEEP 5 Crit Value Called To Crit Value Called By Crit Value Read Back Blood Gas Notified Time Sodium Potassium Chloride Carbon Dioxide Anion Gap BUN Creatinine Est GFR ( Amer) Est GFR (Non-Af Amer) POC Glucose (mg/dL) Random Glucose Lactic Acid Calcium Total Bilirubin AST ALT Alkaline Phosphatase Total Protein Albumin Globulin Albumin/Globulin Ratio Venous Blood Potassium Vancomycin Trough Blood Type A POSITIVE Antibody Screen Negative Crossmatch See Detail BBK History Checked Patient has bt 11/02/18 11/02/18 11/03/18 04:18 07:00 05:00 WBC RBC Hgb Hct MCV MCH MCHC RDW Plt Count MPV Neut % (Auto) Lymph % (Auto) Ogle % (Auto) Eos % (Auto) Baso % (Auto) Neut # (Auto) Lymph # (Auto) Ogle # (Auto) Eos # (Auto) Baso # (Auto) Neutrophils % (Manual) Band Neutrophils % Lymphocytes % (Manual) Monocytes % (Manual) Toxic Granulation Platelet Estimate Hypochromasia (manual) Poikilocytosis (manual Ovalocytes PT INR APTT Fibrinogen pCO2 pO2 40 HCO3 ABG pH ABG Total CO2 ABG O2 Saturation ABG O2 Content ABG Base Excess ABG Hemoglobin ABG Carboxyhemoglobin POC ABG HHb (Measured) ABG Methemoglobin ABG O2 Capacity Frederic Test VBG pH 7.26 L VBG pCO2 32 L VBG HCO3 15.4 VBG Total CO2 15.4 L VBG O2 Sat (Calc) 78.5 H VBG Base Excess -11.6 L VBG Potassium 4.0 A-a O2 Difference Hgb O2 Saturation Glucose 132 H Lactate 4.1 H* Vent Mode Mechanical Rate FiO2 35.0 Tidal Volume PEEP 5 Crit Value Called To Madisyn coffman Crit Value Called By 15 Crit Value Read Back Y Blood Gas Notified Time 825 Sodium 130 L 130.0 L Potassium 4.0 Chloride 106 101.0 Carbon Dioxide 16 L Anion Gap 12 BUN 53 H Creatinine 0.7 Est GFR ( Amer) > 60 Est GFR (Non-Af Amer) > 60 POC Glucose (mg/dL) Random Glucose 132 H Lactic Acid Calcium 7.3 L Total Bilirubin AST ALT Alkaline Phosphatase Total Protein Albumin Globulin Albumin/Globulin Ratio Venous Blood Potassium 4.0 Vancomycin Trough 27.7 H Blood Type Antibody Screen Crossmatch BBK History Checked 11/03/18 11/03/18 11/03/18 05:00 05:00 05:00 WBC 16.9 H RBC 3.42 L Hgb 10.4 L Hct 32.5 L MCV 95.0 MCH 30.3 MCHC 31.9 L RDW 19.7 H Plt Count 61 L MPV Neut % (Auto) Lymph % (Auto) Ogle % (Auto) Eos % (Auto) Baso % (Auto) Neut # (Auto) Lymph # (Auto) Ogle # (Auto) Eos # (Auto) Baso # (Auto) Neutrophils % (Manual) Band Neutrophils % Lymphocytes % (Manual) Monocytes % (Manual) Toxic Granulation Platelet Estimate Hypochromasia (manual) Poikilocytosis (manual Ovalocytes PT INR APTT Fibrinogen 136 L pCO2 pO2 HCO3 ABG pH ABG Total CO2 ABG O2 Saturation ABG O2 Content ABG Base Excess ABG Hemoglobin ABG Carboxyhemoglobin POC ABG HHb (Measured) ABG Methemoglobin ABG O2 Capacity Frederic Test VBG pH VBG pCO2 VBG HCO3 VBG Total CO2 VBG O2 Sat (Calc) VBG Base Excess VBG Potassium A-a O2 Difference Hgb O2 Saturation Glucose Lactate Vent Mode Mechanical Rate FiO2 Tidal Volume PEEP Crit Value Called To Crit Value Called By Crit Value Read Back Blood Gas Notified Time Sodium 131 L Potassium 4.1 Chloride 108 H Carbon Dioxide 16 L Anion Gap 11 BUN 53 H Creatinine 0.8 Est GFR ( Amer) > 60 Est GFR (Non-Af Amer) > 60 POC Glucose (mg/dL) Random Glucose 87 Lactic Acid Calcium 7.4 L Total Bilirubin 0.4 AST 17 ALT 23 Alkaline Phosphatase 142 H D Total Protein 4.6 L Albumin 1.7 L Globulin 2.9 Albumin/Globulin Ratio 0.6 L Venous Blood Potassium Vancomycin Trough Blood Type Antibody Screen Crossmatch BBK History Checked 11/03/18 11/03/18 11/03/18 05:11 07:34 21:44 WBC RBC Hgb Hct MCV MCH MCHC RDW Plt Count MPV Neut % (Auto) Lymph % (Auto) Ogle % (Auto) Eos % (Auto) Baso % (Auto) Neut # (Auto) Lymph # (Auto) Ogle # (Auto) Eos # (Auto) Baso # (Auto) Neutrophils % (Manual) Band Neutrophils % Lymphocytes % (Manual) Monocytes % (Manual) Toxic Granulation Platelet Estimate Hypochromasia (manual) Poikilocytosis (manual Ovalocytes PT INR APTT Fibrinogen pCO2 28 L pO2 101 H 41 HCO3 15.1 L ABG pH 7.27 L ABG Total CO2 13.8 L ABG O2 Saturation 99.5 H ABG O2 Content 15.3 ABG Base Excess -12.6 L ABG Hemoglobin 11.2 L ABG Carboxyhemoglobin 1.8 H POC ABG HHb (Measured) 0.5 ABG Methemoglobin 1.6 ABG O2 Capacity 15.4 L Frederic Test Yes VBG pH 7.23 L VBG pCO2 36 L VBG HCO3 15.4 VBG Total CO2 16.2 L VBG O2 Sat (Calc) 78.5 H VBG Base Excess -11.6 L VBG Potassium 3.8 A-a O2 Difference 114.0 Hgb O2 Saturation 96.1 Glucose 111 H Lactate 2.0 Vent Mode A/c Mechanical Rate 12 FiO2 35.0 35.0 Tidal Volume 450 PEEP 5 5 Crit Value Called To Crit Value Called By Crit Value Read Back Blood Gas Notified Time Sodium 130.0 L Potassium Chloride 103.0 Carbon Dioxide Anion Gap BUN Creatinine Est GFR ( Amer) Est GFR (Non-Af Amer) POC Glucose (mg/dL) 158 H Random Glucose Lactic Acid Calcium Total Bilirubin AST ALT Alkaline Phosphatase Total Protein Albumin Globulin Albumin/Globulin Ratio Venous Blood Potassium 3.8 Vancomycin Trough Blood Type Antibody Screen Crossmatch BBK History Checked 11/04/18 11/04/18 11/04/18 04:39 05:28 06:01 WBC 20.6 H RBC 3.31 L Hgb 10.2 L Hct 31.7 L MCV 95.9 MCH 30.7 MCHC 32.0 L RDW 19.6 H Plt Count 61 L MPV 10.6 Neut % (Auto) 92.1 H Lymph % (Auto) 2.1 L Ogle % (Auto) 5.8 Eos % (Auto) 0.0 Baso % (Auto) 0.0 Neut # (Auto) 18.9 H Lymph # (Auto) 0.4 L Ogle # (Auto) 1.2 H Eos # (Auto) 0.0 Baso # (Auto) 0.0 Neutrophils % (Manual) 89 H Band Neutrophils % 6 H Lymphocytes % (Manual) 1 L Monocytes % (Manual) 4 Toxic Granulation Present Platelet Estimate Decreased L Hypochromasia (manual) Slight Poikilocytosis (manual Slight Ovalocytes Slight PT INR APTT Fibrinogen pCO2 32 L pO2 111 H HCO3 15.9 L ABG pH 7.26 L ABG Total CO2 15.4 L ABG O2 Saturation 99.9 H ABG O2 Content 13.9 L ABG Base Excess -11.6 L ABG Hemoglobin 10.1 L ABG Carboxyhemoglobin 1.7 H POC ABG HHb (Measured) 0.1 ABG Methemoglobin 1.4 ABG O2 Capacity 13.9 L Frederic Test Yes VBG pH VBG pCO2 VBG HCO3 VBG Total CO2 VBG O2 Sat (Calc) VBG Base Excess VBG Potassium A-a O2 Difference 99.0 Hgb O2 Saturation 96.7 Glucose Lactate Vent Mode A/c Mechanical Rate 12 FiO2 35.0 Tidal Volume 450 PEEP 5 Crit Value Called To Crit Value Called By Crit Value Read Back Blood Gas Notified Time Sodium Potassium Chloride Carbon Dioxide Anion Gap BUN Creatinine Est GFR ( Amer) Est GFR (Non-Af Amer) POC Glucose (mg/dL) Random Glucose Lactic Acid 1.9 Calcium Total Bilirubin AST ALT Alkaline Phosphatase Total Protein Albumin Globulin Albumin/Globulin Ratio Venous Blood Potassium Vancomycin Trough Blood Type Antibody Screen Crossmatch BBK History Checked 11/04/18 11/04/18 11/04/18 06:01 06:01 06:01 WBC RBC Hgb Hct MCV MCH MCHC RDW Plt Count MPV Neut % (Auto) Lymph % (Auto) Ogle % (Auto) Eos % (Auto) Baso % (Auto) Neut # (Auto) Lymph # (Auto) Ogle # (Auto) Eos # (Auto) Baso # (Auto) Neutrophils % (Manual) Band Neutrophils % Lymphocytes % (Manual) Monocytes % (Manual) Toxic Granulation Platelet Estimate Hypochromasia (manual) Poikilocytosis (manual Ovalocytes PT 17.9 H INR 1.6 APTT 37.2 H Fibrinogen pCO2 pO2 HCO3 ABG pH ABG Total CO2 ABG O2 Saturation ABG O2 Content ABG Base Excess ABG Hemoglobin ABG Carboxyhemoglobin POC ABG HHb (Measured) ABG Methemoglobin ABG O2 Capacity Frederic Test VBG pH VBG pCO2 VBG HCO3 VBG Total CO2 VBG O2 Sat (Calc) VBG Base Excess VBG Potassium A-a O2 Difference Hgb O2 Saturation Glucose Lactate Vent Mode Mechanical Rate FiO2 Tidal Volume PEEP Crit Value Called To Crit Value Called By Crit Value Read Back Blood Gas Notified Time Sodium 131 L Potassium 4.0 Chloride 107 Carbon Dioxide 14 L Anion Gap 14 BUN 57 H Creatinine 0.8 Est GFR ( Amer) > 60 Est GFR (Non-Af Amer) > 60 POC Glucose (mg/dL) Random Glucose 128 H Lactic Acid Calcium 7.5 L Total Bilirubin 0.4 AST 16 ALT 21 Alkaline Phosphatase 146 H Total Protein 4.7 L Albumin 1.8 L Globulin 3.0 Albumin/Globulin Ratio 0.6 L Venous Blood Potassium Vancomycin Trough 25.4 H Blood Type Antibody Screen Crossmatch BBK History Checked Microbiology 11/02/18 04:18 Blood-Thru Central Line S.aureus & Coag-Neg Staph PNA FISH - Final 11/02/18 04:18 Blood-Thru Central Line Blood Culture - Preliminary Staphylococcus Sp Coag Neg 11/02/18 04:18 Blood-Thru Central Line Gram Stain - Final 11/01/18 04:58 Blood-Venous Blood Culture - Preliminary NO GROWTH AFTER 3 DAYS 11/02/18 04:18 Blood-Venous Blood Culture - Preliminary NO GROWTH AFTER 48 HOURS 10/31/18 09:02 Trachasp Gram Stain - Final 10/31/18 09:02 Trachasp Sputum Culture - Final Yeast Species 10/29/18 14:30 Blood-Venous Blood Culture - Final NO GROWTH AFTER 5 DAYS 10/29/18 14:30 Blood-Venous Gram Stain - Final TEST NOT PERFORMED 10/29/18 14:40 Blood-Venous Blood Culture - Final NO GROWTH AFTER 5 DAYS 10/29/18 14:40 Blood-Venous Gram Stain - Final TEST NOT PERFORMED 10/31/18 07:00 Blood-Thru Central Line S.aureus & Coag-Neg Staph PNA FISH - Final 10/31/18 07:00 Blood-Thru Central Line Blood Culture - Final Coagulase Neg Staphylococcus 10/31/18 07:00 Blood-Thru Central Line Gram Stain - Final 10/27/18 14:00 Blood-Thru Central Line Blood Culture - Final NO GROWTH AFTER 5 DAYS 10/27/18 14:00 Blood-Thru Central Line Gram Stain - Final TEST NOT PERFORMED 10/26/18 18:20 Blood-Thru Central Line Blood Culture - Final NO GROWTH AFTER 5 DAYS 10/21/18 08:00 Urine,Catheterized Urine Culture - Preliminary Catrachito Species 10/18/18 11:55 Blood-Thru Central Line Blood Culture - Final NO GROWTH AFTER 5 DAYS 10/18/18 11:55 Blood-Thru Central Line Gram Stain - Final TEST NOT PERFORMED 10/05/18 06:15 Blood Blood Culture - Final NO GROWTH AFTER 5 DAYS 10/05/18 06:15 Blood Gram Stain - Final TEST NOT PERFORMED 10/05/18 06:30 Blood Blood Culture - Final NO GROWTH AFTER 5 DAYS 10/05/18 06:30 Blood Gram Stain - Final TEST NOT PERFORMED 10/05/18 07:10 Urine,Hardwick Urine Culture - Final Yeast Species 09/25/18 12:10 Blood-Thru Central Line Blood Culture - Final NO GROWTH AFTER 5 DAYS 09/25/18 12:10 Blood-Thru Central Line Gram Stain - Final TEST NOT PERFORMED 09/20/18 14:00 Blood-Thru Central Line Blood Culture - Final NO GROWTH AFTER 5 DAYS 09/20/18 17:53 Trachasp Gram Stain - Final 09/20/18 17:53 Trachasp Sputum Culture - Final Yeast Species 09/20/18 17:53 Urine,Hardwick Urine Culture - Final No Growth (<1,000 CFU/ML) 09/15/18 15:35 Blood-Thru Central Line Blood Culture - Final NO GROWTH AFTER 5 DAYS 09/15/18 15:35 Blood-Thru Central Line Gram Stain - Final TEST NOT PERFORMED 09/15/18 15:25 Blood-Thru Central Line Blood Culture - Final NO GROWTH AFTER 5 DAYS 09/15/18 15:25 Blood-Thru Central Line Gram Stain - Final TEST NOT PERFORMED 09/08/18 11:49 Blood-Venous Blood Culture - Final NO GROWTH AFTER 5 DAYS 09/08/18 11:49 Blood-Venous Gram Stain - Final TEST NOT PERFORMED 09/08/18 11:49 Blood-Venous Blood Culture - Final NO GROWTH AFTER 5 DAYS 09/08/18 11:49 Blood-Venous Gram Stain - Final TEST NOT PERFORMED 09/07/18 Unknown Blood-Thru Central Line Blood Culture - Final NO GROWTH AFTER 5 DAYS 09/07/18 Unknown Blood-Thru Central Line Gram Stain - Final TEST NOT PERFORMED 09/07/18 Unknown Blood-Thru Central Line Blood Culture - Final NO GROWTH AFTER 5 DAYS 09/07/18 Unknown Blood-Thru Central Line Gram Stain - Final TEST NOT PERFORMED 09/07/18 09:07 Trachasp Gram Stain - Final 09/07/18 09:07 Trachasp Sputum Culture - Final Yeast Species 09/04/18 11:25 Naris MRSA Culture (Admit) - Final MRSA NOT DETECTED 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 remains on the vent on levophed . afebrile today. leukocytosis increasing. one blood cx from port 10/31/2018 - coah neg staph repeat blood cx from the port 11/02/2018- today reported as coag neg staph blood cx-11/01/2018- neg blood cx- neg x 11 trach asp cx- yeast ( treated) stool c.diff- negative repeat UA- negative repeat urine cx- yeast ( treated) hardwick removed 4 days ago repeat urine cx - yeast finally ID as catrachito lipolytica ( hardwick was removed a week ago). cxr - b/l pleural effusions PLan- had been off antibiotics for past 10 days since her leukocytosis had resolved and was afebrile and had already completed 38 days of meropnem , 34 days of fluconazole, 25 days of vanco (empirically). check trach asp cx. restarted abx again 4 days ago in light of her remaining on the vent and pleural effusion and her immunocompromised status secondary to metastastatic cancer to cover for VAP . continue with vanco and cefepime day #4 keep vanco trough <20 vanco on hold past 2 days because of high trough redose once trough <20 in light of 2 bloodcx from port now being reported as coag neg staph and rising wbc. port may need to be removed. check TTE r/o any vegetations as well. continue with micafungin as well for C.Lipolytica in urine cx.day #7 would most likely need another thoracenthesis to relieve the left pleural ef fusion. prognosis very poor. critical care time spent 40 minutes. all above d/w [employer] Specialist as well.
[2018-11-05 05:07] LABS: ABG ALLEN TEST YES; ARTERIAL BLOOD GAS HCO3 15.7 mmol/L (21-28); ARTERIAL BLOOD GAS HEMOGLOBIN 9.8 g/dL (11.7-17.4); ARTERIAL BLOOD GAS O2 CAPACITY 13.5 mL/dL (16-24); ARTERIAL BLOOD GAS O2 CONTENT 13.5 ML/dL (15-23); ARTERIAL BLOOD GAS O2 SAT 99.8 % (95-98); ARTERIAL BLOOD GAS PCO2 28 mm/Hg (35-45); ARTERIAL BLOOD GAS PH 7.29 (7.35-7.45); ARTERIAL BLOOD GAS PO2 115 mm/Hg (80-100); ARTERIAL BLOOD GAS TCO2 14.4 mmol/L (22-28)
[2018-11-05 05:10] LABS: HEMOGLOBIN 9.5 g/dL (12.0-16.0); MEAN CELL VOLUME 95.9 fl (81.0-99.0); MEAN CORPUSCULAR HEMOGLOBIN 30.5 pg (27.0-31.0); MEAN CORPUSCULAR HGB CONC 31.8 g/dL (33.0-37.0); RBC 3.11 Mil/uL (3.80-5.20); RED CELL DISTRIBUTION WIDTH 19.8 % (11.5-14.5); WHITE BLOOD COUNT 22.1 K/uL (4.8-10.8)
[2018-11-05 05:22] LABS: ALB/GLOB RATIO 0.6 (1.0-2.1); ALBUMIN 1.7 g/dL (3.5-5.0); ALT/SGPT 21 U/L (9-52); AST/SGOT 18 U/L (14-36); BLOOD UREA NITROGEN 59 mg/dl (7-17); CALCIUM 7.3 mg/dL (8.4-10.2); GFR NON-AFRICAN AMERICAN > 60
[2018-11-05] MEDS ORDERED: Sodium Bicarbonate 7.5% (0.9 MEQ/ML) 50ML INJ IV ONE (06:46)
--- NOTE | 2018-11-05 08:16 | CP.CCUPN ---
CCU Subjective - Physician Review Subjective (Free Text): No essential change in overall condition, persistent need for vasopressor support. Lethargic mental status unchanged. She remains tachycardic at 110 /min with sinus mechanism. SBPs have been 90- 100s. No new temp spikes, temps remain mostly 99F. urine volume 300-500ml via straight cathing, other significant fluid losses noted form leakage of fluid from paracentesis site and R thigh. Breathing 14 on AC 12 mode, SPo2 remains stable at 99-100%. ROS: No other pertinent negs or positive on 10+ system review obtainable due to lethargic status Other PMSFH: All other Nursing and physician documentation reviewed to date; no new pertinent info noted relevant to current medical problems. EXAM- HEENT: no icterus, pupils equal, 3 mm and reactive, no gaze preference, opens eyes briefly to pain, but no sustained wakeful state. NECK: no visible JVD, supple, carotids equal upstroke bilat/no bruits, trach stoma intact CHEST: decreased BS bases, no wheezes audible, bloody fluid drained dressing over R breast. Left chest portacath. HEART: regular, distant, tachy S1S2, no murmur audible, no rubs. ABD: soft, +distention with ascites, no focal tenderness, BS hypoactive, dried necrotic lesion over umbilicus unchanged. Previous paracentesis puncture site still leaking ascitic fluid. EXT: + anasarca / edema UEs and LEs, no calf tenderness or palpable cords, distal pulses intact and symmetrical NEURO: withdraws to pain stimuli SKIN: no rashes LABS: WBC= 22.1 HGB= 9.5 PLTs = 64K Na= 131 K= 3.9 Cl= 107 HCO3= 14 BUN/Cr= 59/0.9 BS= 173 7.29/28/115 ABG CXR: (my interp)- Trach tube within tracheal air column, persistence of Left lung haziness and atelectasis- overall unchanged again today. IMPRESSION / MAJOR PROBLEMS NOW: 1. Acute hypoxemic Resp Failure, 2 bilat multi-lobar pneumonia/ Effusion 2. GPC Bacteremia 3. Severe Sepsis with shock, 2 Pneumonia 4. Acute on Chronic disease Anemia and Persistent vaginal Bleeding 5. h/o DVT- bilat CFV (Aug 2018). PLAN: 1. Discussed with PMD regarding repeat thoracentesis and paracentesis: will hold on pursuing repeat procedures at this time. Fio2 requirements have not increased in spite of left effusion. Significant leakage volume noted from previous paracentesis wound site, up to almost 2000ml per day. 2. Positive BCs on growing S. aureus. ID has advised Left port-a-cath removal, discussed with PMD. On Vanco for now, dosed as per Vanco trough levels. Other Antibx and Antifx coverage noted. 3. Repeat serial Lactate levels. Elevation in Lactic Acid noted, but as Levophed has been resumed, repeat Lactate was normal. WBC has been increasing and Platelets which had recovered post-chemo, are declining and low again. 4. No MV weans anticipated unless Left effusion (recurrent) can be further resolved, but satisfactory SPO2 on low level 35% oxygen noted. 5. Overall condition appears to be worsening despite aggressive measures in ICU, and has approached the point of medical futility. Yet, patients mother insists on continuing aggressive care. Cancer persists and is longer considered a candidate for ongoing chemotherapy. Given discrepant views between family and medical team, may need further clarification on goals for patient with recommendations from an Ethics Committee discussion; discussed with PMD and multidisciplinary team.
[2018-11-05] MEDS: Cefepime 2 GM in Sodium Chloride 0.9% 100 ML IVPB SCH ×2 (08:31→20:24)
--- NOTE | 2018-11-05 10:48 | CP.PCM.PN ---
Subjective - Date & Time of Evaluation Date of Evaluation: 11/03/18 Time of Evaluation: 18:30 - Subjective Subjective: Seen and examined at the bed side.Poor Prognosis. Patient continue to bleed on And off. on Supportive care. D/w the mother who refused Terminal Extubation. Similar Several Attempts were mad by all patients' providers. Objective - Vital Signs/Intake and Output Vital Signs (last 24 hours): Temp Pulse Resp BP Pulse Ox 98.8 F 122 H 15 108/64 99 11/05/18 08:00 11/05/18 10:00 11/05/18 10:00 11/05/18 10:00 11/05/18 10:00 Intake and Output: 11/05/18 11/05/18 06:59 18:59 Intake Total 1614 488 Output Total 487 100 Balance 1127 388 - Medications Medications: Current Medications Famotidine (Pepcid) 20 mg IVP Q12 GLADIS Last Admin: 11/05/18 08:36 Dose: 20 mg Lactated Ringer's (Lactated Ringer's) 1,000 mls @ 50 mls/hr IV .Q20H GLADIS Last Admin: 11/04/18 04:27 Dose: 50 mls/hr Micafungin Sodium 50 mg/ (Sodium Chloride) 100 mls @ 100 mls/hr IVPB DAILY GLADIS; Protocol Last Admin: 11/05/18 08:32 Dose: 100 mls/hr Cefepime HCl 2 gm/ Sodium (Chloride) 100 mls @ 100 mls/hr IVPB Q12 GLADIS; Protocol Last Admin: 11/05/18 08:31 Dose: 100 mls/hr Vancomycin HCl 500 mg/ Sodium (Chloride) 100 mls @ 100 mls/hr IVPB Q12 GLADIS; Protocol Last Admin: 11/03/18 08:50 Dose: 100 mls/hr Norepinephrine Bitartrate 16 (mg/ Dextrose) 266 mls @ 9.98 mls/hr IV .Q24H ONE; Protocol Stop: 11/05/18 18:51 Last Admin: 11/05/18 04:53 Dose: 12.5 mcg/min, 12.47 mls/hr - Labs Labs: 11/05/18 04:16 11/05/18 04:16 PT 17.9 Seconds (9.8-13.1) H 11/04/18 06:01 INR 1.6 11/04/18 06:01 APTT 37.2 Seconds (25.6-37.1) H 11/04/18 06:01 Assessment and Plan (1) Anasarca Status: Acute (2) Septic shock Status: Resolved (3) Multiple organ dysfunction syndrome Status: Acute (4) Acute respiratory failure with hypoxemia Status: Acute (5) Thrombocytopenia Status: Resolved (6) Ascites, malignant Status: Acute (7) Congestive heart failure (CHF) Status: Acute (8) Stage IV breast cancer in female Status: Acute (9) Severe anemia Status: Resolved (10) DVT of lower extremity, bilateral Status: Chronic - Assessment and Plan (Free Text) Plan: Continue Current Care Transfuse when Hgb<7.
--- NOTE | 2018-11-05 10:48 | CP.PCM.PN ---
Subjective - Date & Time of Evaluation Date of Evaluation: 11/02/18 Time of Evaluation: 20:15 - Subjective Subjective: Seen and examined at the bed side. Mother at the bed side. Patient continue to be on supportive care. Objective - Vital Signs/Intake and Output Vital Signs (last 24 hours): Temp Pulse Resp BP Pulse Ox 98.8 F 122 H 15 108/64 99 11/05/18 08:00 11/05/18 10:00 11/05/18 10:00 11/05/18 10:00 11/05/18 10:00 Intake and Output: 11/05/18 11/05/18 06:59 18:59 Intake Total 1614 488 Output Total 487 100 Balance 1127 388 - Medications Medications: Current Medications Famotidine (Pepcid) 20 mg IVP Q12 GLADIS Last Admin: 11/05/18 08:36 Dose: 20 mg Lactated Ringer's (Lactated Ringer's) 1,000 mls @ 50 mls/hr IV .Q20H GLADIS Last Admin: 11/04/18 04:27 Dose: 50 mls/hr Micafungin Sodium 50 mg/ (Sodium Chloride) 100 mls @ 100 mls/hr IVPB DAILY GLADIS; Protocol Last Admin: 11/05/18 08:32 Dose: 100 mls/hr Cefepime HCl 2 gm/ Sodium (Chloride) 100 mls @ 100 mls/hr IVPB Q12 GLADIS; Protocol Last Admin: 11/05/18 08:31 Dose: 100 mls/hr Vancomycin HCl 500 mg/ Sodium (Chloride) 100 mls @ 100 mls/hr IVPB Q12 GLADIS; Protocol Last Admin: 11/03/18 08:50 Dose: 100 mls/hr Norepinephrine Bitartrate 16 (mg/ Dextrose) 266 mls @ 9.98 mls/hr IV .Q24H ONE; Protocol Stop: 11/05/18 18:51 Last Admin: 11/05/18 04:53 Dose: 12.5 mcg/min, 12.47 mls/hr - Labs Labs: 11/05/18 04:16 11/05/18 04:16 PT 17.9 Seconds (9.8-13.1) H 11/04/18 06:01 INR 1.6 11/04/18 06:01 APTT 37.2 Seconds (25.6-37.1) H 11/04/18 06:01 Assessment and Plan (1) Anasarca Status: Acute (2) Septic shock Status: Resolved (3) Multiple organ dysfunction syndrome Status: Acute (4) Acute respiratory failure with hypoxemia Status: Acute (5) Thrombocytopenia Status: Resolved (6) Ascites, malignant Status: Acute (7) Congestive heart failure (CHF) Status: Acute (8) Stage IV breast cancer in female Status: Acute (9) Severe anemia Status: Resolved (10) DVT of lower extremity, bilateral Status: Chronic - Assessment and Plan (Free Text) Plan: Continue Current Care Daily ABG and CXR
--- NOTE | 2018-11-05 12:04 | RAD ---
Date of service: 11/05/2018 HISTORY: Vented and trached COMPARISON: Chest radiograph dated 11/04/2018. TECHNIQUE: 1 view obtained. FINDINGS: LUNGS: Pulmonary vascular congestion with bibasilar atelectasis. PLEURA: Moderate to large left and small right pleural effusions, unchanged.. CARDIOVASCULAR: Aortic atherosclerotic calcifications. Cardiomediastinal silhouette stably enlarged. OSSEOUS STRUCTURES: Changed. VISUALIZED UPPER ABDOMEN: Normal. OTHER FINDINGS: Left subclavian access chest port, unchanged. Tracheostomy, unchanged. Enteric tube, unchanged. IMPRESSION: Stable tubes and lines. No significant change in pulmonary vascular congestion with moderate to large left and small right pleural effusions.
[2018-11-05] MEDS ORDERED: Chlorhexidine Gluconate 1 APPL/PKT TP ONE (14:15)
--- NOTE | 2018-11-05 20:58 | CP.PCM.PN ---
Subjective - Date & Time of Evaluation Date of Evaluation: 11/04/18 Time of Evaluation: 16:00 - Subjective Subjective: Vented Objective - Vital Signs/Intake and Output Vital Signs (last 24 hours): Temp Pulse Resp BP Pulse Ox 99.1 F 115 H 13 87/53 L 98 11/05/18 16:00 11/05/18 18:00 11/05/18 18:00 11/05/18 18:00 11/05/18 18:00 Intake and Output: 11/05/18 11/06/18 18:59 06:59 Intake Total 1464 170 Output Total 280 Balance 1184 170 - Medications Medications: Current Medications Famotidine (Pepcid) 20 mg IVP Q12 GLADIS Last Admin: 11/05/18 20:24 Dose: 20 mg Lactated Ringer's (Lactated Ringer's) 1,000 mls @ 50 mls/hr IV .Q20H GLADIS Last Admin: 11/04/18 04:27 Dose: 50 mls/hr Micafungin Sodium 50 mg/ (Sodium Chloride) 100 mls @ 100 mls/hr IVPB DAILY GLADIS; Protocol Last Admin: 11/05/18 08:32 Dose: 100 mls/hr Cefepime HCl 2 gm/ Sodium (Chloride) 100 mls @ 100 mls/hr IVPB Q12 GLADIS; Protocol Last Admin: 11/05/18 20:24 Dose: 100 mls/hr Vancomycin HCl 500 mg/ Sodium (Chloride) 100 mls @ 100 mls/hr IVPB Q12 GLADIS; Protocol Last Admin: 11/03/18 08:50 Dose: 100 mls/hr - Labs Labs: 11/05/18 04:16 11/05/18 04:16 PT 17.9 Seconds (9.8-13.1) H 11/04/18 06:01 INR 1.6 11/04/18 06:01 APTT 37.2 Seconds (25.6-37.1) H 11/04/18 06:01 - Head Exam Head Exam: ATRAUMATIC - Eye Exam Eye Exam: Normal appearance - ENT Exam ENT Exam: Mucous Membranes Dry - Respiratory Exam Respiratory Exam: Decreased Breath Sounds - Cardiovascular Exam Cardiovascular Exam: +S1, +S2 - GI/Abdominal Exam GI & Abdominal Exam: Normal Bowel Sounds - Extremities Exam Extremities Exam: Pedal Edema Assessment and Plan (1) DIC (disseminated intravascular coagulation) Assessment & Plan: low fibrinogen on antibiotics for sepsis Status: Acute (2) Thrombocytopenia Assessment & Plan: secondary to DIC and sepsis Status: Resolved (3) Anemia Assessment & Plan: anemia of chronic disease 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
--- NOTE | 2018-11-05 20:59 | CP.PCM.PN ---
Subjective - Date & Time of Evaluation Date of Evaluation: 11/05/18 Time of Evaluation: 20:00 - Subjective Subjective: Vented Objective - Vital Signs/Intake and Output Vital Signs (last 24 hours): Temp Pulse Resp BP Pulse Ox 99.1 F 115 H 13 87/53 L 98 11/05/18 16:00 11/05/18 18:00 11/05/18 18:00 11/05/18 18:00 11/05/18 18:00 Intake and Output: 11/05/18 11/06/18 18:59 06:59 Intake Total 1464 170 Output Total 280 Balance 1184 170 - Medications Medications: Current Medications Famotidine (Pepcid) 20 mg IVP Q12 GLADIS Last Admin: 11/05/18 20:24 Dose: 20 mg Lactated Ringer's (Lactated Ringer's) 1,000 mls @ 50 mls/hr IV .Q20H GLADIS Last Admin: 11/04/18 04:27 Dose: 50 mls/hr Micafungin Sodium 50 mg/ (Sodium Chloride) 100 mls @ 100 mls/hr IVPB DAILY GLADIS; Protocol Last Admin: 11/05/18 08:32 Dose: 100 mls/hr Cefepime HCl 2 gm/ Sodium (Chloride) 100 mls @ 100 mls/hr IVPB Q12 GLADIS; Protocol Last Admin: 11/05/18 20:24 Dose: 100 mls/hr Vancomycin HCl 500 mg/ Sodium (Chloride) 100 mls @ 100 mls/hr IVPB Q12 GLADIS; Protocol Last Admin: 11/03/18 08:50 Dose: 100 mls/hr - Labs Labs: 11/05/18 04:16 11/05/18 04:16 PT 17.9 Seconds (9.8-13.1) H 11/04/18 06:01 INR 1.6 11/04/18 06:01 APTT 37.2 Seconds (25.6-37.1) H 11/04/18 06:01 - Head Exam Head Exam: ATRAUMATIC - Eye Exam Eye Exam: Normal appearance - ENT Exam ENT Exam: Mucous Membranes Dry - Respiratory Exam Respiratory Exam: Decreased Breath Sounds - Cardiovascular Exam Cardiovascular Exam: +S1, +S2 - GI/Abdominal Exam GI & Abdominal Exam: Normal Bowel Sounds Assessment and Plan (1) DIC (disseminated intravascular coagulation) Assessment & Plan: low fibrinogen sepsis related, on abx Status: Acute (2) Thrombocytopenia Assessment & Plan: secondary to DIC and sepsis Status: Resolved (3) Anemia Assessment & Plan: anemia of 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
[2018-11-05] MEDS: Lactated Ringer's 1,000 ML IV SCH (22:00)
[2018-11-06 05:24] LABS: ABG ALLEN TEST YES; ARTERIAL BLOOD GAS HCO3 16.3 mmol/L (21-28); ARTERIAL BLOOD GAS HEMOGLOBIN 9.4 g/dL (11.7-17.4); ARTERIAL BLOOD GAS O2 SAT 100.2 % (95-98); ARTERIAL BLOOD GAS PCO2 31 mm/Hg (35-45); ARTERIAL BLOOD GAS PH 7.28 (7.35-7.45); ARTERIAL BLOOD GAS PO2 112 mm/Hg (80-100); ARTERIAL BLOOD GAS TCO2 15.6 mmol/L (22-28)
[2018-11-06 05:53] LABS: BASO % 0.1 % (0.0-2.0); EOS % 0.1 % (0.0-4.0); HEMOGLOBIN 9.2 g/dL (12.0-16.0); LYMPH # 0.4 K/uL (1.0-4.3); LYMPH % 1.6 % (20.0-40.0); MEAN CELL VOLUME 96.6 fl (81.0-99.0); MEAN CORPUSCULAR HEMOGLOBIN 30.3 pg (27.0-31.0); MEAN CORPUSCULAR HGB CONC 31.4 g/dL (33.0-37.0); MEAN PLATELET VOLUME 11.3 fl (7.2-11.7); MONO % 4.3 % (0.0-10.0); NEUT # 22.2 K/uL (1.8-7.0); NEUT % 93.9 % (50.0-75.0); NRBC % 0.7 % (0.0-0.0); RBC 3.03 Mil/uL (3.80-5.20); RED CELL DISTRIBUTION WIDTH 20.1 % (11.5-14.5); WHITE BLOOD COUNT 23.6 K/uL (4.8-10.8)
[2018-11-06 06:12] LABS: ALB/GLOB RATIO 0.6 (1.0-2.1); ALBUMIN 1.7 g/dL (3.5-5.0); ALT/SGPT 24 U/L (9-52); AST/SGOT 30 U/L (14-36); BLOOD UREA NITROGEN 62 mg/dl (7-17); CALCIUM 7.2 mg/dL (8.4-10.2); GFR NON-AFRICAN AMERICAN > 60
[2018-11-06] MEDS ORDERED: Sodium Bicarbonate 7.5% (0.9 MEQ/ML) 50ML INJ IV ONE (07:05)
[2018-11-06] MEDS: Cefepime 2 GM in Sodium Chloride 0.9% 100 ML IVPB SCH ×2 (08:56→21:10)
--- NOTE | 2018-11-06 09:43 | CP.PCM.PN ---
Subjective - Date & Time of Evaluation Date of Evaluation: 11/06/18 Time of Evaluation: 09:43 - Subjective Subjective: ID Note- Patient seen and examined today in ICU. remains on the vent. lethargic today and does not follow any commands. Objective - Vital Signs/Intake and Output Vital Signs (last 24 hours): Temp Pulse Resp BP Pulse Ox 99 F 114 H 12 103/62 99 11/06/18 08:00 11/06/18 08:00 11/06/18 08:00 11/06/18 08:00 11/06/18 08:00 Intake and Output: 11/06/18 11/06/18 06:59 18:59 Intake Total 1091 Output Total 250 Balance 841 - Medications Medications: Current Medications Famotidine (Pepcid) 20 mg IVP Q12 GLADIS Last Admin: 11/06/18 08:55 Dose: 20 mg Lactated Ringer's (Lactated Ringer's) 1,000 mls @ 50 mls/hr IV .Q20H GLADIS Last Admin: 11/04/18 04:27 Dose: 50 mls/hr Micafungin Sodium 50 mg/ (Sodium Chloride) 100 mls @ 100 mls/hr IVPB DAILY GLADIS; Protocol Last Admin: 11/06/18 08:45 Dose: 100 mls/hr Cefepime HCl 2 gm/ Sodium (Chloride) 100 mls @ 100 mls/hr IVPB Q12 GLADIS; Protocol Last Admin: 11/06/18 08:56 Dose: 100 mls/hr Vancomycin HCl 500 mg/ Sodium (Chloride) 100 mls @ 100 mls/hr IVPB Q12 GLADIS; Protocol Last Admin: 11/03/18 08:50 Dose: 100 mls/hr Lactated Ringer's (Lactated Ringer's) 1,000 mls @ 50 mls/hr IV .Q20H GLADIS Last Admin: 11/05/18 22:00 Dose: 50 mls/hr Norepinephrine Bitartrate 16 (mg/ Dextrose) 266 mls @ 12.47 mls/hr IV .[id number]; Protocol Stop: 11/06/18 18:17 Last Titration: 11/06/18 03:00 Dose: 12.5 mcg/min, 12.47 mls/hr - Labs Labs: - Additional Findings Additional findings: - Constitutional Appears: Chronically Ill Additional comments: - ENT Exam Additional comments: s/p trache - Respiratory Exam Additional comments: On the vent via Trach decreased breath sounds on left side - Cardiovascular Exam Cardiovascular Exam: Tachycardia, +S1, +S2 - GI/Abdominal Exam Additional comments: distended , soft hypoactive BS + ascites anasarca weeping from previous paracenthesis site and has bag over it draining clear fluid - Extremities Exam Additional comments: b/l 2+ edema in LE and UE - Neurological Exam Additional comments: does not follow any commands Laboratory Results - last 72 hr 11/03/18 11/04/18 11/04/18 21:44 04:39 05:28 WBC RBC Hgb Hct MCV MCH MCHC RDW Plt Count MPV Neut % (Auto) Lymph % (Auto) Brown % (Auto) Eos % (Auto) Baso % (Auto) Neut # (Auto) Lymph # (Auto) Brown # (Auto) Eos # (Auto) Baso # (Auto) Total Counted Neutrophils % (Manual) Band Neutrophils % Lymphocytes % (Manual) Reactive Lymphs % Monocytes % (Manual) Eosinophils % (Manual) Basophils % (Manual) Metamyelocytes % Myelocytes % Promyelocytes % Blast Cells % Plasma Cell % (Manual) Nucleated RBC % Hypersegmented Polys Smudge Cells Toxic Granulation Dohle Bodies Devorah Rods Platelet Estimate Plt Clumps, EDTA Large Platelets Giant Platelets RBC Morphology Polychromasia Hypochromasia (manual) Poikilocytosis (manual Basophilic Stippling Anisocytosis (manual) Microcytosis (manual) Macrocytosis (manual) Spherocytes Sickle Cells Target Cells Tear Drop Cells Ovalocytes Stomatocytes Helmet Cells [place] Bodies Naina Cells Acanthocytes (Spur) Rouleaux Schistocytes PT INR APTT Fibrinogen pCO2 32 L pO2 111 H HCO3 15.9 L ABG pH 7.26 L ABG Total CO2 15.4 L ABG O2 Saturation 99.9 H ABG O2 Content 13.9 L ABG Base Excess -11.6 L ABG Hemoglobin 10.1 L ABG Carboxyhemoglobin 1.7 H POC ABG HHb (Measured) 0.1 ABG Methemoglobin 1.4 ABG O2 Capacity 13.9 L Frederic Test Yes A-a O2 Difference 99.0 Hgb O2 Saturation 96.7 Vent Mode A/c Mechanical Rate 12 FiO2 35.0 Tidal Volume 450 PEEP 5 Sodium Potassium Chloride Carbon Dioxide Anion Gap BUN Creatinine Est GFR ( Amer) Est GFR (Non-Af Amer) POC Glucose (mg/dL) 158 H Random Glucose Lactic Acid 1.9 Calcium Phosphorus Magnesium Total Bilirubin AST ALT Alkaline Phosphatase Total Protein Albumin Globulin Albumin/Globulin Ratio Vancomycin Trough 11/04/18 11/04/18 11/04/18 06:01 06:01 06:01 WBC 20.6 H RBC 3.31 L Hgb 10.2 L Hct 31.7 L MCV 95.9 MCH 30.7 MCHC 32.0 L RDW 19.6 H Plt Count 61 L MPV 10.6 Neut % (Auto) 92.1 H Lymph % (Auto) 2.1 L Brown % (Auto) 5.8 Eos % (Auto) 0.0 Baso % (Auto) 0.0 Neut # (Auto) 18.9 H Lymph # (Auto) 0.4 L Brown # (Auto) 1.2 H Eos # (Auto) 0.0 Baso # (Auto) 0.0 Total Counted Neutrophils % (Manual) 89 H Band Neutrophils % 6 H Lymphocytes % (Manual) 1 L Reactive Lymphs % Monocytes % (Manual) 4 Eosinophils % (Manual) Basophils % (Manual) Metamyelocytes % Myelocytes % Promyelocytes % Blast Cells % Plasma Cell % (Manual) Nucleated RBC % Hypersegmented Polys Smudge Cells Toxic Granulation Present Dohle Bodies Devorah Rods Platelet Estimate Decreased L Plt Clumps, EDTA Large Platelets Giant Platelets RBC Morphology Polychromasia Hypochromasia (manual) Slight Poikilocytosis (manual Slight Basophilic Stippling Anisocytosis (manual) Microcytosis (manual) Macrocytosis (manual) Spherocytes Sickle Cells Target Cells Tear Drop Cells Ovalocytes Slight Stomatocytes Helmet Cells [place] Bodies Naina Cells Acanthocytes (Spur) Rouleaux Schistocytes PT 17.9 H INR 1.6 APTT 37.2 H Fibrinogen pCO2 pO2 HCO3 ABG pH ABG Total CO2 ABG O2 Saturation ABG O2 Content ABG Base Excess ABG Hemoglobin ABG Carboxyhemoglobin POC ABG HHb (Measured) ABG Methemoglobin ABG O2 Capacity Frederic Test A-a O2 Difference Hgb O2 Saturation Vent Mode Mechanical Rate FiO2 Tidal Volume PEEP Sodium 131 L Potassium 4.0 Chloride 107 Carbon Dioxide 14 L Anion Gap 14 BUN 57 H Creatinine 0.8 Est GFR ( Amer) > 60 Est GFR (Non-Af Amer) > 60 POC Glucose (mg/dL) Random Glucose 128 H Lactic Acid Calcium 7.5 L Phosphorus Magnesium Total Bilirubin 0.4 AST 16 ALT 21 Alkaline Phosphatase 146 H Total Protein 4.7 L Albumin 1.8 L Globulin 3.0 Albumin/Globulin Ratio 0.6 L Vancomycin Trough 11/04/18 11/05/18 11/05/18 06:01 04:16 04:16 WBC 22.1 H RBC 3.11 L Hgb 9.5 L Hct 29.8 L MCV 95.9 MCH 30.5 MCHC 31.8 L RDW 19.8 H Plt Count 64 L MPV Neut % (Auto) Lymph % (Auto) Brown % (Auto) Eos % (Auto) Baso % (Auto) Neut # (Auto) Lymph # (Auto) Brown # (Auto) Eos # (Auto) Baso # (Auto) Total Counted Neutrophils % (Manual) Band Neutrophils % Lymphocytes % (Manual) Reactive Lymphs % Monocytes % (Manual) Eosinophils % (Manual) Basophils % (Manual) Metamyelocytes % Myelocytes % Promyelocytes % Blast Cells % Plasma Cell % (Manual) Nucleated RBC % Hypersegmented Polys Smudge Cells Toxic Granulation Dohle Bodies Devorah Rods Platelet Estimate Plt Clumps, EDTA Large Platelets Giant Platelets RBC Morphology Polychromasia Hypochromasia (manual) Poikilocytosis (manual Basophilic Stippling Anisocytosis (manual) Microcytosis (manual) Macrocytosis (manual) Spherocytes Sickle Cells Target Cells Tear Drop Cells Ovalocytes Stomatocytes Helmet Cells [place] Bodies Naina Cells Acanthocytes (Spur) Rouleaux Schistocytes PT INR APTT Fibrinogen pCO2 pO2 HCO3 ABG pH ABG Total CO2 ABG O2 Saturation ABG O2 Content ABG Base Excess ABG Hemoglobin ABG Carboxyhemoglobin POC ABG HHb (Measured) ABG Methemoglobin ABG O2 Capacity Frederic Test A-a O2 Difference Hgb O2 Saturation Vent Mode Mechanical Rate FiO2 Tidal Volume PEEP Sodium Potassium Chloride Carbon Dioxide Anion Gap BUN Creatinine Est GFR ( Amer) Est GFR (Non-Af Amer) POC Glucose (mg/dL) Random Glucose Lactic Acid Calcium Phosphorus Magnesium Total Bilirubin AST ALT Alkaline Phosphatase Total Protein Albumin Globulin Albumin/Globulin Ratio Vancomycin Trough 25.4 H 21.3 H 11/05/18 11/05/18 11/06/18 04:16 05:05 05:03 WBC RBC Hgb Hct MCV MCH MCHC RDW Plt Count MPV Neut % (Auto) Lymph % (Auto) Brown % (Auto) Eos % (Auto) Baso % (Auto) Neut # (Auto) Lymph # (Auto) Brown # (Auto) Eos # (Auto) Baso # (Auto) Total Counted Neutrophils % (Manual) Band Neutrophils % Lymphocytes % (Manual) Reactive Lymphs % Monocytes % (Manual) Eosinophils % (Manual) Basophils % (Manual) Metamyelocytes % Myelocytes % Promyelocytes % Blast Cells % Plasma Cell % (Manual) Nucleated RBC % Hypersegmented Polys Smudge Cells Toxic Granulation Dohle Bodies Devorah Rods Platelet Estimate Plt Clumps, EDTA Large Platelets Giant Platelets RBC Morphology Polychromasia Hypochromasia (manual) Poikilocytosis (manual Basophilic Stippling Anisocytosis (manual) Microcytosis (manual) Macrocytosis (manual) Spherocytes Sickle Cells Target Cells Tear Drop Cells Ovalocytes Stomatocytes Helmet Cells [place] Bodies Naina Cells Acanthocytes (Spur) Rouleaux Schistocytes PT INR APTT Fibrinogen pCO2 28 L 31 L pO2 115 H 112 H HCO3 15.7 L 16.3 L ABG pH 7.29 L 7.28 L ABG Total CO2 14.4 L 15.6 L ABG O2 Saturation 99.8 H 100.2 H ABG O2 Content 13.5 L 13.0 L ABG Base Excess -11.8 L -11.1 L ABG Hemoglobin 9.8 L 9.4 L ABG Carboxyhemoglobin 1.9 H 2.0 H POC ABG HHb (Measured) 0.2 -0.2 L ABG Methemoglobin 1.8 1.7 ABG O2 Capacity 13.5 L 13.0 L Frederic Test Yes Yes A-a O2 Difference 100.0 99.0 Hgb O2 Saturation 96.1 96.5 Vent Mode A/c A/c Mechanical Rate 12 12 FiO2 35.0 35.0 Tidal Volume 450 450 PEEP 5 5 Sodium 131 L Potassium 3.9 Chloride 107 Carbon Dioxide 14 L Anion Gap 14 BUN 59 H Creatinine 0.9 Est GFR ( Amer) > 60 Est GFR (Non-Af Amer) > 60 POC Glucose (mg/dL) Random Glucose 173 H Lactic Acid Calcium 7.3 L Phosphorus Magnesium Total Bilirubin 0.3 AST 18 ALT 21 Alkaline Phosphatase 155 H Total Protein 4.5 L Albumin 1.7 L Globulin 2.8 Albumin/Globulin Ratio 0.6 L Vancomycin Trough 11/06/18 11/06/18 11/06/18 05:31 05:31 05:31 WBC 23.6 H RBC 3.03 L Hgb 9.2 L Hct 29.2 L MCV 96.6 MCH 30.3 MCHC 31.4 L RDW 20.1 H Plt Count 68 L MPV 11.3 Neut % (Auto) 93.9 H Lymph % (Auto) 1.6 L Brown % (Auto) 4.3 Eos % (Auto) 0.1 Baso % (Auto) 0.1 Neut # (Auto) 22.2 H Lymph # (Auto) 0.4 L Brown # (Auto) 1.0 H Eos # (Auto) 0.0 Baso # (Auto) 0.0 Total Counted Cancelled Neutrophils % (Manual) Cancelled Band Neutrophils % Cancelled Lymphocytes % (Manual) Cancelled Reactive Lymphs % Cancelled Monocytes % (Manual) Cancelled Eosinophils % (Manual) Cancelled Basophils % (Manual) Cancelled Metamyelocytes % Cancelled Myelocytes % Cancelled Promyelocytes % Cancelled Blast Cells % Cancelled Plasma Cell % (Manual) Cancelled Nucleated RBC % Cancelled Hypersegmented Polys Cancelled Smudge Cells Cancelled Toxic Granulation Cancelled Dohle Bodies Cancelled Devorah Rods Cancelled Platelet Estimate Cancelled Plt Clumps, EDTA Cancelled Large Platelets Cancelled Giant Platelets Cancelled RBC Morphology Cancelled Polychromasia Cancelled Hypochromasia (manual) Cancelled Poikilocytosis (manual Cancelled Basophilic Stippling Cancelled Anisocytosis (manual) Cancelled Microcytosis (manual) Cancelled Macrocytosis (manual) Cancelled Spherocytes Cancelled Sickle Cells Cancelled Target Cells Cancelled Tear Drop Cells Cancelled Ovalocytes Cancelled Stomatocytes Cancelled Helmet Cells Cancelled [place] Bodies Cancelled Lawler Cells Cancelled Acanthocytes (Spur) Cancelled Rouleaux Cancelled Schistocytes Cancelled PT INR APTT Fibrinogen 124 L pCO2 pO2 HCO3 ABG pH ABG Total CO2 ABG O2 Saturation ABG O2 Content ABG Base Excess ABG Hemoglobin ABG Carboxyhemoglobin POC ABG HHb (Measured) ABG Methemoglobin ABG O2 Capacity Frederic Test A-a O2 Difference Hgb O2 Saturation Vent Mode Mechanical Rate FiO2 Tidal Volume PEEP Sodium 132 Potassium 3.7 Chloride 106 Carbon Dioxide 14 L Anion Gap 16 BUN 62 H Creatinine 0.9 Est GFR ( Amer) > 60 Est GFR (Non-Af Amer) > 60 POC Glucose (mg/dL) Random Glucose 127 H Lactic Acid Calcium 7.2 L Phosphorus 6.1 H Magnesium 1.9 Total Bilirubin 0.4 AST 30 ALT 24 Alkaline Phosphatase 181 H Total Protein 4.6 L Albumin 1.7 L Globulin 2.9 Albumin/Globulin Ratio 0.6 L Vancomycin Trough Microbiology 11/01/18 04:58 Blood-Venous Blood Culture - Final NO GROWTH AFTER 5 DAYS 11/01/18 04:58 Blood-Venous Gram Stain - Final TEST NOT PERFORMED 11/02/18 04:18 Blood-Venous Blood Culture - Preliminary NO GROWTH AFTER 4 DAYS 11/02/18 04:18 Blood-Thru Central Line S.aureus & Coag-Neg Staph PNA FISH - Final 11/02/18 04:18 Blood-Thru Central Line Blood Culture - Final Coagulase Neg Staphylococcus 11/02/18 04:18 Blood-Thru Central Line Gram Stain - Final 10/31/18 09:02 Trachasp Gram Stain - Final 10/31/18 09:02 Trachasp Sputum Culture - Final Yeast Species 10/29/18 14:30 Blood-Venous Blood Culture - Final NO GROWTH AFTER 5 DAYS 10/29/18 14:30 Blood-Venous Gram Stain - Final TEST NOT PERFORMED 10/29/18 14:40 Blood-Venous Blood Culture - Final NO GROWTH AFTER 5 DAYS 10/29/18 14:40 Blood-Venous Gram Stain - Final TEST NOT PERFORMED 10/31/18 07:00 Blood-Thru Central Line S.aureus & Coag-Neg Staph PNA FISH - Final 10/31/18 07:00 Blood-Thru Central Line Blood Culture - Final Coagulase Neg Staphylococcus 10/31/18 07:00 Blood-Thru Central Line Gram Stain - Final 10/27/18 14:00 Blood-Thru Central Line Blood Culture - Final NO GROWTH AFTER 5 DAYS 10/27/18 14:00 Blood-Thru Central Line Gram Stain - Final TEST NOT PERFORMED 10/26/18 18:20 Blood-Thru Central Line Blood Culture - Final NO GROWTH AFTER 5 DAYS 10/21/18 08:00 Urine,Catheterized Urine Culture - Preliminary Catrachito Species 10/18/18 11:55 Blood-Thru Central Line Blood Culture - Final NO GROWTH AFTER 5 DAYS 10/18/18 11:55 Blood-Thru Central Line Gram Stain - Final TEST NOT PERFORMED 10/05/18 06:15 Blood Blood Culture - Final NO GROWTH AFTER 5 DAYS 10/05/18 06:15 Blood Gram Stain - Final TEST NOT PERFORMED 10/05/18 06:30 Blood Blood Culture - Final NO GROWTH AFTER 5 DAYS 10/05/18 06:30 Blood Gram Stain - Final TEST NOT PERFORMED 10/05/18 07:10 Urine,Hardwick Urine Culture - Final Yeast Species 09/25/18 12:10 Blood-Thru Central Line Blood Culture - Final NO GROWTH AFTER 5 DAYS 09/25/18 12:10 Blood-Thru Central Line Gram Stain - Final TEST NOT PERFORMED 09/20/18 14:00 Blood-Thru Central Line Blood Culture - Final NO GROWTH AFTER 5 DAYS 09/20/18 17:53 Trachasp Gram Stain - Final 09/20/18 17:53 Trachasp Sputum Culture - Final Yeast Species 09/20/18 17:53 Urine,Hardwick Urine Culture - Final No Growth (<1,000 CFU/ML) 09/15/18 15:35 Blood-Thru Central Line Blood Culture - Final NO GROWTH AFTER 5 DAYS 09/15/18 15:35 Blood-Thru Central Line Gram Stain - Final TEST NOT PERFORMED 09/15/18 15:25 Blood-Thru Central Line Blood Culture - Final NO GROWTH AFTER 5 DAYS 09/15/18 15:25 Blood-Thru Central Line Gram Stain - Final TEST NOT PERFORMED 09/08/18 11:49 Blood-Venous Blood Culture - Final NO GROWTH AFTER 5 DAYS 09/08/18 11:49 Blood-Venous Gram Stain - Final TEST NOT PERFORMED 09/08/18 11:49 Blood-Venous Blood Culture - Final NO GROWTH AFTER 5 DAYS 09/08/18 11:49 Blood-Venous Gram Stain - Final TEST NOT PERFORMED 09/07/18 Unknown Blood-Thru Central Line Blood Culture - Final NO GROWTH AFTER 5 DAYS 09/07/18 Unknown Blood-Thru Central Line Gram Stain - Final TEST NOT PERFORMED 09/07/18 Unknown Blood-Thru Central Line Blood Culture - Final NO GROWTH AFTER 5 DAYS 09/07/18 Unknown Blood-Thru Central Line Gram Stain - Final TEST NOT PERFORMED 09/07/18 09:07 Trachasp Gram Stain - Final 09/07/18 09:07 Trachasp Sputum Culture - Final Yeast Species 09/04/18 11:25 Naris MRSA Culture (Admit) - Final MRSA NOT DETECTED Accession No. : [id number] Patient Name / ID : RYLEE ONEIL / [id number] Exam Date : 11/05/2018 04:24:43 ( Approved ) Study Comment : Sex / Age : F / [id number] Creator : Dony Palencia MD Dictator : Dony Palencia MD Movie Critic : Environmental Field Services Technician : Dony Palencia MD Approver2 : Report Date : 11/05/2018 11:59:12 My Comment : Date of service: 11/05/2018 HISTORY: Vented and trached COMPARISON: Chest radiograph dated 11/04/2018. TECHNIQUE: 1 view obtained. FINDINGS: LUNGS: Pulmonary vascular congestion with bibasilar atelectasis. PLEURA: Moderate to large left and small right pleural effusions, unchanged.. CARDIOVASCULAR: Aortic atherosclerotic calcifications. Cardiomediastinal silhouette stably enlarged. OSSEOUS STRUCTURES: Changed. VISUALIZED UPPER ABDOMEN: Normal. OTHER FINDINGS: Left subclavian access chest port, unchanged. Tracheostomy, unchanged. Enteric tube, unchanged. IMPRESSION: Stable tubes and lines. No significant change in pulmonary vascular congestion with moderate to large left and small right pleural effusions. 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 remains on the vent on levophed . afebrile today. leukocytosis increasing. one blood cx from port 10/31/2018 - coag neg staph repeat blood cx from the port 11/02/2018- reported as coag neg staph blood cx-11/01/2018- neg blood cx- neg x 11 trach asp cx- yeast ( treated) stool c.diff- negative repeat UA- negative repeat urine cx- yeast ( treated) hardwick removed 4 days ago repeat urine cx - yeast finally ID as catrachito lipolytica ( hardwick was removed a week ago). cxr - b/l pleural effusions PLan- had been off antibiotics for past 10 days since her leukocytosis had resolved and was afebrile and had already completed 38 days of meropnem , 34 days of fluconazole, 25 days of vanco (empirically). check trach asp cx. restarted abx again 6 days ago in light of her remaining on the vent and pleural effusion and her immunocompromised status secondary to metastastatic cancer to cover for VAP . continue with vanco and cefepime day #6 keep vanco trough <20 vanco on hold past 2 days because of high trough redose once trough <20 in light of 2 blood cx from port now being reported as coag neg staph and rising wbc. port may need to be removed. check TTE r/o any vegetations as well. continue with micafungin as well for C.Lipolytica in urine cx.day #9 would most likely need another thoracenthesis to relieve the left pleural effusion as well. prognosis very poor. critical care time spent 40 minutes.
[2018-11-06] MEDS: Lactated Ringer's 1,000 ML IV SCH (17:27)
--- NOTE | 2018-11-06 19:23 | CP.PCM.PN ---
Subjective - Date & Time of Evaluation Date of Evaluation: 11/06/18 Time of Evaluation: 15:00 - Subjective Subjective: SEEN ON RENAL F/U IN ICU NO CHANGE IN CLINICAL CONDITION REMAINS INTUBATED KHANH MANNING STILL IN PRE RENAL STATE HYPONATREMIA BETTER No essential change in overall condition, persistent need for vasopressor support. Lethargic mental status unchanged. She remains tachycardic at 110 /min with sinus mechanism. SBPs have been 90- 100s. No new temp spikes, temps remain mostly 99F. urine volume 300-500ml via straight cathing, other significant fluid losses noted form leakage of fluid from paracentesis site and R thigh. Breathing 14 on AC 12 mode, SPo2 remains stable at 99-100%. Objective - Vital Signs/Intake and Output Vital Signs (last 24 hours): Temp Pulse Resp BP Pulse Ox 99.3 F 116 H 15 100/59 L 97 11/06/18 16:00 11/06/18 19:00 11/06/18 19:00 11/06/18 19:00 11/06/18 19:00 Intake and Output: 11/06/18 11/07/18 18:59 06:59 Intake Total 1798 Output Total 710 Balance 1088 - Medications Medications: Current Medications Famotidine (Pepcid) 20 mg IVP Q12 GLADIS Last Admin: 11/06/18 08:55 Dose: 20 mg Lactated Ringer's (Lactated Ringer's) 1,000 mls @ 50 mls/hr IV .Q20H GLADIS Last Admin: 11/06/18 17:27 Dose: Not Given Micafungin Sodium 50 mg/ (Sodium Chloride) 100 mls @ 100 mls/hr IVPB DAILY GLADIS; Protocol Last Admin: 11/06/18 08:45 Dose: 100 mls/hr Cefepime HCl 2 gm/ Sodium (Chloride) 100 mls @ 100 mls/hr IVPB Q12 GLADIS; Protocol Last Admin: 11/06/18 08:56 Dose: 100 mls/hr Lactated Ringer's (Lactated Ringer's) 1,000 mls @ 50 mls/hr IV .Q20H GLADIS Last Admin: 11/05/18 22:00 Dose: 50 mls/hr Vancomycin HCl 750 mg/ Sodium (Chloride) 250 mls @ 166.667 mls/hr IVPB DAILY GLADIS; Protocol Last Admin: 11/06/18 17:29 Dose: 166.667 mls/hr - Labs Labs: 11/06/18 05:31 11/06/18 05:31 PT 17.9 Seconds (9.8-13.1) H 11/04/18 06:01 INR 1.6 11/04/18 06:01 APTT 37.2 Seconds (25.6-37.1) H 11/04/18 06:01 Assessment and Plan - Assessment and Plan (Free Text) Assessment: LOUIE .. PRE RENAL AZOTEMIA .. RENAL FUNCTION BETTER ELECTROLYTES BETTER VDRF SEPSIS MMP P : C/O CURRENT CARE C/O PRESENT MANAGEMENT C/O CURRENT FLIUD AND ELECTROLYTES MANAGEMENT
--- NOTE | 2018-11-06 19:39 | CARD ---
APPROVED REPORT Date of service: 11/06/2018 EXAM: Two-dimensional and M-mode echocardiogram with Doppler and color Doppler. Other Information Quality : GoodRhythm : Tachycardia INDICATION Infection: M-Mode DIMENSIONS IVSd0.59 (0.7-1.1cm)LVDd7.39 (4.0-5.6cm) PWd1.14 (0.7-1.1cm)IVSs0.40 cm FS (%) 19 %LVDs5.96 (2.0-3.8cm) PWs1.65 cm Mitral Valve E/A ratio0.0 TDI E/Lateral E'0.0E/Medial E'0.0 LEFT VENTRICLE The left ventricle is normal size. There is normal left ventricular wall thickness. The ejection fraction is severely impaired. The estimated ejection fraction is 15-20% There is global hypokinesis of the left ventricle. The left ventricular diastolic function is indeterminate. No left ventricle thrombus noted on this study. RIGHT VENTRICLE The right ventricle is normal size. There is normal right ventricular wall thickness. The right ventricular systolic function is mildly reduced. ATRIA The left atrium size is normal. The right atrium size is normal. AORTIC VALVE The aortic valve is normal in structure. Mild aortic regurgitation is present. There is no aortic valvular stenosis. MITRAL VALVE The posterior mitral leaflet is thickened and there is possible vegetation. There is no evidence of mitral valve prolapse. There is no mitral valve stenosis. There is severe eccentric mitral valve regurgitation noted. TRICUSPID VALVE The tricuspid valve is not well visualized. There is no tricuspid valve regurgitation noted. PULMONIC VALVE The pulmonary valve is not well visualized. There is no pulmonic valvular regurgitation. GREAT VESSELS The aortic root is normal in size. The IVC is not well visualized. PERICARDIAL EFFUSION There is no pericardial effusion. There is large bilateral pleural effusions. <Conclusion> Technically difficult study. The ejection fraction is severely impaired. The estimated ejection fraction is 15-20% There is global hypokinesis of the left ventricle. The left ventricular diastolic function is indeterminate. The right ventricular systolic function is mildly reduced. Mild aortic regurgitation is present. The posterior mitral leaflet is thickened and there is possible vegetation. There is severe eccentric mitral valve regurgitation noted. There is large bilateral pleural effusions.
--- NOTE | 2018-11-07 03:02 | PN ---
DATE: 11/06/2018 CRITICAL CARE PROGRESS NOTE LOCATION: The patient in ICU, bed 427. TIME SPENT: 35 minutes. SUBJECTIVE: The patient is seen and evaluated at bedside. Past medical, surgical, family, and social history are reviewed. Case discussed in multidisciplinary ICU rounds this morning. Remains on mechanical ventilation through tracheostomy. On AC/PRVC, rate 12, tidal volume 450, FiO2 of 35%, observed rate 14, observed tidal volume 390, minute ventilation 6.3 liters, saturation 98%. PHYSICAL EXAMINATION: VITAL SIGNS: Temperature 99.2, heart rate 116 to 120, blood pressure 107/65, mean arterial pressure 79, and saturation 99%. Intake 2555, output 530, positive balance 5. HEAD, EYES, EARS, NOSE, AND THROAT: Eyes are open. No eye contacts. CHEST: Bilateral breath sounds. Diminished in intensity. HEART: Rhythm regular. Rate in the 120s. ABDOMEN: Bowel sounds are present, distended. EXTREMITIES: Dependent edema. NEUROLOGIC: Opens eyes, but otherwise, no eye contacts or response. CURRENT MEDICATIONS: Cefepime 2 g IV every 12 hours, Pepcid 20 mg IV every 12 hours, Ringer's lactate at 50 mL per hour, micafungin 50 mg IV daily, Levophed at 12.5 mcg per minute, vancomycin 750 mg IV daily. LABORATORY DATA: WBC 23.6, hemoglobin 9.2, hematocrit 29.2, platelet count 68, fibrinogen 124. PT 17.9, INR 1.6, PTT 37.2. ABG; pH 7.28, pCO2 of 31, pO2 of 112, saturation 100.2% on AC 450, 35%, PEEP of 5. SMA-7: Sodium 132, potassium 3.7, chloride 106, CO2 of 14, blood urea nitrogen 62, creatinine 0.9, random glucose 127, calcium 7.2, phosphorus 6.1, magnesium 1.9. Total bilirubin 0.4, AST 30, ALT 24, alkaline phosphatase 181, albumin 1.7, total protein 4.6. Urinalysis: Leukocyte esterase somewhat trace, rbc's 8, microscopic wbc 10. Toxicology: Vancomycin trough level 21.3. Serology: C. diff antigen antibody negative. Blood culture through Port-A-Cath positive for coagulase-negative Staphylococcus x2. Chest x-ray on 11/05/2018; stable tubes and lines, pulmonary vascular congestion, [id number] left and small right pleural effusion. IMPRESSION: 1. Septic metabolic encephalopathy, recurrent bacteremia. 2. Pulmonary. Hypoxic respiratory failure status post tracheostomy, ventilator dependent. 3. Cardiac. Hypotension, on Levophed, ongoing sepsis. 4. Hypovolemia due to hypoalbuminemia. 5. Hematology. Due to cytosis, due to ongoing sepsis, hemoglobin and hematocrit stable. Thrombocytopenia, hypofibrinogenemia related sepsis disseminated intravascular coagulation. 6. Renal. Prerenal azotemia with blood urea nitrogen 62 and creatinine 0.9, hypoalbuminemia. 7. Gastrointestinal. Liver enzymes are normal. 8. Endocrinology. Maintain blood sugar between 130 to 140. PROGNOSIS: Remains guarded. Continue supportive care. Javid Das MD
[2018-11-07 04:51] LABS: HEMOGLOBIN 8.7 g/dL (12.0-16.0); MEAN CORPUSCULAR HEMOGLOBIN 30.6 pg (27.0-31.0); MEAN CORPUSCULAR HGB CONC 31.9 g/dL (33.0-37.0); RBC 2.85 Mil/uL (3.80-5.20); RED CELL DISTRIBUTION WIDTH 19.8 % (11.5-14.5); WHITE BLOOD COUNT 27.6 K/uL (4.8-10.8)
[2018-11-07 05:06] LABS: BLOOD UREA NITROGEN 67 mg/dl (7-17); CALCIUM 7.4 mg/dL (8.4-10.2); GFR NON-AFRICAN AMERICAN 57
[2018-11-07 05:24] LABS: ABG ALLEN TEST YES; ARTERIAL BLOOD GAS HEMOGLOBIN 9.1 g/dL (11.7-17.4); ARTERIAL BLOOD GAS O2 CAPACITY 12.5 mL/dL (16-24); ARTERIAL BLOOD GAS O2 CONTENT 12.5 ML/dL (15-23); ARTERIAL BLOOD GAS O2 SAT 100.2 % (95-98); ARTERIAL BLOOD GAS PCO2 35 mm/Hg (35-45); ARTERIAL BLOOD GAS PH 7.24 (7.35-7.45); ARTERIAL BLOOD GAS PO2 104 mm/Hg (80-100); ARTERIAL BLOOD GAS TCO2 16.1 mmol/L (22-28)
[2018-11-07] MEDS: Lactated Ringer's 1,000 ML IV SCH ×2 (05:52→17:25)
--- NOTE | 2018-11-07 08:02 | RAD ---
Date of service: 11/07/2018 HISTORY: Mechanically ventilated. COMPARISON: Portable chest 11/05/2018. TECHNIQUE: 1 view obtained. FINDINGS: LUNGS: Endotracheal and orogastric tubes are not significantly changed in position with left MediPort unchanged as well. Lateral pleural effusions remain moderate at the left and mild at the right with underlying airspace disease not excluded bilaterally as well. No pneumothorax. PLEURA: Above. CARDIOVASCULAR: No aortic atherosclerotic calcification present. Cardiac size obscured by left-sided opacity. No pulmonary vascular congestion. OSSEOUS STRUCTURES: No significant abnormalities. VISUALIZED UPPER ABDOMEN: Normal. OTHER FINDINGS: None. IMPRESSION: Stable bilateral pleural effusions significantly greater the left and right sides with underlying airspace disease difficult to exclude bilaterally as well.
[2018-11-07] MEDS: Cefepime 2 GM in Sodium Chloride 0.9% 100 ML IVPB SCH ×2 (09:01→20:07)
--- NOTE | 2018-11-07 11:59 | CP.PCM.PN ---
Subjective - Date & Time of Evaluation Date of Evaluation: 11/07/18 Time of Evaluation: 11:59 - Subjective Subjective: ID note- Pt. seen and examined in ICU. no new events. remains on the vent and on levophed and unresponsive. Objective - Vital Signs/Intake and Output Vital Signs (last 24 hours): Temp Pulse Resp BP Pulse Ox 97.9 F 109 H 13 97/55 L 97 11/07/18 09:00 11/07/18 11:00 11/07/18 11:00 11/07/18 11:00 11/07/18 11:00 Intake and Output: 11/07/18 11/07/18 06:59 18:59 Intake Total 1270 557 Output Total 1525 500 Balance -255 57 - Medications Medications: Current Medications Lactated Ringer's (Lactated Ringer's) 1,000 mls @ 50 mls/hr IV .Q20H GLADIS Last Admin: 11/07/18 05:52 Dose: 50 mls/hr Micafungin Sodium 50 mg/ (Sodium Chloride) 100 mls @ 100 mls/hr IVPB DAILY GLADIS; Protocol Last Admin: 11/07/18 10:00 Dose: 100 mls/hr Cefepime HCl 2 gm/ Sodium (Chloride) 100 mls @ 100 mls/hr IVPB Q12 GLADIS; Protocol Last Admin: 11/07/18 09:01 Dose: 100 mls/hr Lactated Ringer's (Lactated Ringer's) 1,000 mls @ 50 mls/hr IV .Q20H GLADIS Last Admin: 11/05/18 22:00 Dose: 50 mls/hr Vancomycin HCl 750 mg/ Sodium (Chloride) 250 mls @ 166.667 mls/hr IVPB DAILY GLADIS; Protocol Last Admin: 11/07/18 09:34 Dose: 166.667 mls/hr Norepinephrine Bitartrate 16 (mg/ Dextrose) 266 mls @ 9.98 mls/hr IV .Q24H ONE; Protocol Stop: 11/07/18 23:52 Last Titration: 11/07/18 09:56 Dose: 12.5 mcg/min, 12.47 mls/hr - Labs Labs: - Additional Findings Additional findings: - Constitutional Appears: Chronically Ill Additional comments: - ENT Exam Additional comments: s/p trache - Respiratory Exam Additional comments: On the vent via Trach decreased breath sounds on left side - Cardiovascular Exam Cardiovascular Exam: Tachycardia, +S1, +S2 - GI/Abdominal Exam Additional comments: distended , soft hypoactive BS + ascites anasarca weeping from previous paracenthesis site and has bag over it draining clear fluid - Extremities Exam Additional comments: b/l 2+ edema in LE and UE - Neurological Exam Additional comments: does not follow any commands Laboratory Results - last 72 hr 11/05/18 11/05/18 11/05/18 04:16 04:16 04:16 WBC 22.1 H RBC 3.11 L Hgb 9.5 L Hct 29.8 L MCV 95.9 MCH 30.5 MCHC 31.8 L RDW 19.8 H Plt Count 64 L MPV Neut % (Auto) Lymph % (Auto) [place] % (Auto) Eos % (Auto) Baso % (Auto) Neut # (Auto) Lymph # (Auto) [place] # (Auto) Eos # (Auto) Baso # (Auto) Total Counted Neutrophils % (Manual) Band Neutrophils % Lymphocytes % (Manual) Reactive Lymphs % Monocytes % (Manual) Eosinophils % (Manual) Basophils % (Manual) Metamyelocytes % Myelocytes % Promyelocytes % Blast Cells % Plasma Cell % (Manual) Nucleated RBC % Hypersegmented Polys Smudge Cells Toxic Granulation Dohle Bodies Devorah Rods Platelet Estimate Plt Clumps, EDTA Large Platelets Giant Platelets RBC Morphology Polychromasia Hypochromasia (manual) Poikilocytosis (manual Basophilic Stippling Anisocytosis (manual) Microcytosis (manual) Macrocytosis (manual) Spherocytes Sickle Cells Target Cells Tear Drop Cells Ovalocytes Stomatocytes Helmet Cells Gaona-Olla Bodies [place] Cells Acanthocytes (Spur) Rouleaux Schistocytes Fibrinogen pCO2 pO2 HCO3 ABG pH ABG Total CO2 ABG O2 Saturation ABG O2 Content ABG Base Excess ABG Hemoglobin ABG Carboxyhemoglobin POC ABG HHb (Measured) ABG Methemoglobin ABG O2 Capacity Frederic Test A-a O2 Difference Hgb O2 Saturation Vent Mode Mechanical Rate FiO2 Tidal Volume PEEP Sodium 131 L Potassium 3.9 Chloride 107 Carbon Dioxide 14 L Anion Gap 14 BUN 59 H Creatinine 0.9 Est GFR ( Amer) > 60 Est GFR (Non-Af Amer) > 60 Random Glucose 173 H Calcium 7.3 L Phosphorus Magnesium Total Bilirubin 0.3 AST 18 ALT 21 Alkaline Phosphatase 155 H Total Protein 4.5 L Albumin 1.7 L Globulin 2.8 Albumin/Globulin Ratio 0.6 L Vancomycin Trough 21.3 H 11/05/18 11/06/18 11/06/18 05:05 05:03 05:31 WBC RBC Hgb Hct MCV MCH MCHC RDW Plt Count MPV Neut % (Auto) Lymph % (Auto) [place] % (Auto) Eos % (Auto) Baso % (Auto) Neut # (Auto) Lymph # (Auto) [place] # (Auto) Eos # (Auto) Baso # (Auto) Total Counted Neutrophils % (Manual) Band Neutrophils % Lymphocytes % (Manual) Reactive Lymphs % Monocytes % (Manual) Eosinophils % (Manual) Basophils % (Manual) Metamyelocytes % Myelocytes % Promyelocytes % Blast Cells % Plasma Cell % (Manual) Nucleated RBC % Hypersegmented Polys Smudge Cells Toxic Granulation Dohle Bodies Devorah Rods Platelet Estimate Plt Clumps, EDTA Large Platelets Giant Platelets RBC Morphology Polychromasia Hypochromasia (manual) Poikilocytosis (manual Basophilic Stippling Anisocytosis (manual) Microcytosis (manual) Macrocytosis (manual) Spherocytes Sickle Cells Target Cells Tear Drop Cells Ovalocytes Stomatocytes Helmet Cells Gaona-Olla Bodies Naina Cells Acanthocytes (Spur) Rouleaux Schistocytes Fibrinogen 124 L pCO2 28 L 31 L pO2 115 H 112 H HCO3 15.7 L 16.3 L ABG pH 7.29 L 7.28 L ABG Total CO2 14.4 L 15.6 L ABG O2 Saturation 99.8 H 100.2 H ABG O2 Content 13.5 L 13.0 L ABG Base Excess -11.8 L -11.1 L ABG Hemoglobin 9.8 L 9.4 L ABG Carboxyhemoglobin 1.9 H 2.0 H POC ABG HHb (Measured) 0.2 -0.2 L ABG Methemoglobin 1.8 1.7 ABG O2 Capacity 13.5 L 13.0 L Frederic Test Yes Yes A-a O2 Difference 100.0 99.0 Hgb O2 Saturation 96.1 96.5 Vent Mode A/c A/c Mechanical Rate 12 12 FiO2 35.0 35.0 Tidal Volume 450 450 PEEP 5 5 Sodium Potassium Chloride Carbon Dioxide Anion Gap BUN Creatinine Est GFR ( Amer) Est GFR (Non-Af Amer) Random Glucose Calcium Phosphorus Magnesium Total Bilirubin AST ALT Alkaline Phosphatase Total Protein Albumin Globulin Albumin/Globulin Ratio Vancomycin Trough 11/06/18 11/06/18 11/07/18 05:31 05:31 04:10 WBC 23.6 H RBC 3.03 L Hgb 9.2 L Hct 29.2 L MCV 96.6 MCH 30.3 MCHC 31.4 L RDW 20.1 H Plt Count 68 L MPV 11.3 Neut % (Auto) 93.9 H Lymph % (Auto) 1.6 L [place] % (Auto) 4.3 Eos % (Auto) 0.1 Baso % (Auto) 0.1 Neut # (Auto) 22.2 H Lymph # (Auto) 0.4 L [place] # (Auto) 1.0 H Eos # (Auto) 0.0 Baso # (Auto) 0.0 Total Counted Cancelled Neutrophils % (Manual) Cancelled Band Neutrophils % Cancelled Lymphocytes % (Manual) Cancelled Reactive Lymphs % Cancelled Monocytes % (Manual) Cancelled Eosinophils % (Manual) Cancelled Basophils % (Manual) Cancelled Metamyelocytes % Cancelled Myelocytes % Cancelled Promyelocytes % Cancelled Blast Cells % Cancelled Plasma Cell % (Manual) Cancelled Nucleated RBC % Cancelled Hypersegmented Polys Cancelled Smudge Cells Cancelled Toxic Granulation Cancelled Dohle Bodies Cancelled Devorah Rods Cancelled Platelet Estimate Cancelled Plt Clumps, EDTA Cancelled Large Platelets Cancelled Giant Platelets Cancelled RBC Morphology Cancelled Polychromasia Cancelled Hypochromasia (manual) Cancelled Poikilocytosis (manual Cancelled Basophilic Stippling Cancelled Anisocytosis (manual) Cancelled Microcytosis (manual) Cancelled Macrocytosis (manual) Cancelled Spherocytes Cancelled Sickle Cells Cancelled Target Cells Cancelled Tear Drop Cells Cancelled Ovalocytes Cancelled Stomatocytes Cancelled Helmet Cells Cancelled Gaona-Olla Bodies Cancelled Naina Cells Cancelled Acanthocytes (Spur) Cancelled Rouleaux Cancelled Schistocytes Cancelled Fibrinogen pCO2 pO2 HCO3 ABG pH ABG Total CO2 ABG O2 Saturation ABG O2 Content ABG Base Excess ABG Hemoglobin ABG Carboxyhemoglobin POC ABG HHb (Measured) ABG Methemoglobin ABG O2 Capacity Frederic Test A-a O2 Difference Hgb O2 Saturation Vent Mode Mechanical Rate FiO2 Tidal Volume PEEP Sodium 132 133 Potassium 3.7 3.9 Chloride 106 108 H Carbon Dioxide 14 L 15 L Anion Gap 16 14 BUN 62 H 67 H Creatinine 0.9 1.0 Est GFR ( Amer) > 60 > 60 Est GFR (Non-Af Amer) > 60 57 Random Glucose 127 H 130 H Calcium 7.2 L 7.4 L Phosphorus 6.1 H Magnesium 1.9 Total Bilirubin 0.4 AST 30 ALT 24 Alkaline Phosphatase 181 H Total Protein 4.6 L Albumin 1.7 L Globulin 2.9 Albumin/Globulin Ratio 0.6 L Vancomycin Trough 11/07/18 11/07/18 04:10 04:56 WBC 27.6 H RBC 2.85 L Hgb 8.7 L Hct 27.3 L MCV 96.0 MCH 30.6 MCHC 31.9 L RDW 19.8 H Plt Count 68 L MPV Neut % (Auto) Lymph % (Auto) [place] % (Auto) Eos % (Auto) Baso % (Auto) Neut # (Auto) Lymph # (Auto) [place] # (Auto) Eos # (Auto) Baso # (Auto) Total Counted Neutrophils % (Manual) Band Neutrophils % Lymphocytes % (Manual) Reactive Lymphs % Monocytes % (Manual) Eosinophils % (Manual) Basophils % (Manual) Metamyelocytes % Myelocytes % Promyelocytes % Blast Cells % Plasma Cell % (Manual) Nucleated RBC % Hypersegmented Polys Smudge Cells Toxic Granulation Dohle Bodies Devorah Rods Platelet Estimate Plt Clumps, EDTA Large Platelets Giant Platelets RBC Morphology Polychromasia Hypochromasia (manual) Poikilocytosis (manual Basophilic Stippling Anisocytosis (manual) Microcytosis (manual) Macrocytosis (manual) Spherocytes Sickle Cells Target Cells Tear Drop Cells Ovalocytes Stomatocytes Helmet Cells Gaona-Olla Bodies Naina Cells Acanthocytes (Spur) Rouleaux Schistocytes Fibrinogen pCO2 35 pO2 104 H HCO3 16.0 L ABG pH 7.24 L ABG Total CO2 16.1 L ABG O2 Saturation 100.2 H ABG O2 Content 12.5 L ABG Base Excess -11.4 L ABG Hemoglobin 9.1 L ABG Carboxyhemoglobin 2.3 H POC ABG HHb (Measured) -0.2 L ABG Methemoglobin 1.8 ABG O2 Capacity 12.5 L Frederic Test Yes A-a O2 Difference 102.0 Hgb O2 Saturation 96.1 Vent Mode A/c Mechanical Rate 12 FiO2 35.0 Tidal Volume 450 PEEP 5 Sodium Potassium Chloride Carbon Dioxide Anion Gap BUN Creatinine Est GFR ( Amer) Est GFR (Non-Af Amer) Random Glucose Calcium Phosphorus Magnesium Total Bilirubin AST ALT Alkaline Phosphatase Total Protein Albumin Globulin Albumin/Globulin Ratio Vancomycin Trough Microbiology 11/02/18 04:18 Blood-Venous Blood Culture - Final NO GROWTH AFTER 5 DAYS 11/02/18 04:18 Blood-Venous Gram Stain - Final TEST NOT PERFORMED 11/01/18 04:58 Blood-Venous Blood Culture - Final NO GROWTH AFTER 5 DAYS 11/01/18 04:58 Blood-Venous Gram Stain - Final TEST NOT PERFORMED 11/02/18 04:18 Blood-Thru Central Line S.aureus & Coag-Neg Staph PNA FISH - Final 11/02/18 04:18 Blood-Thru Central Line Blood Culture - Final Coagulase Neg Staphylococcus 11/02/18 04:18 Blood-Thru Central Line Gram Stain - Final 10/31/18 09:02 Trachasp Gram Stain - Final 10/31/18 09:02 Trachasp Sputum Culture - Final Yeast Species 10/29/18 14:30 Blood-Venous Blood Culture - Final NO GROWTH AFTER 5 DAYS 10/29/18 14:30 Blood-Venous Gram Stain - Final TEST NOT PERFORMED 10/29/18 14:40 Blood-Venous Blood Culture - Final NO GROWTH AFTER 5 DAYS 10/29/18 14:40 Blood-Venous Gram Stain - Final TEST NOT PERFORMED 10/31/18 07:00 Blood-Thru Central Line S.aureus & Coag-Neg Staph PNA FISH - Final 10/31/18 07:00 Blood-Thru Central Line Blood Culture - Final Coagulase Neg Staphylococcus 10/31/18 07:00 Blood-Thru Central Line Gram Stain - Final 10/27/18 14:00 Blood-Thru Central Line Blood Culture - Final NO GROWTH AFTER 5 DAYS 10/27/18 14:00 Blood-Thru Central Line Gram Stain - Final TEST NOT PERFORMED 10/26/18 18:20 Blood-Thru Central Line Blood Culture - Final NO GROWTH AFTER 5 DAYS 10/21/18 08:00 Urine,Catheterized Urine Culture - Preliminary Catrachito Species 10/18/18 11:55 Blood-Thru Central Line Blood Culture - Final NO GROWTH AFTER 5 DAYS 10/18/18 11:55 Blood-Thru Central Line Gram Stain - Final TEST NOT PERFORMED 10/05/18 06:15 Blood Blood Culture - Final NO GROWTH AFTER 5 DAYS 10/05/18 06:15 Blood Gram Stain - Final TEST NOT PERFORMED 10/05/18 06:30 Blood Blood Culture - Final NO GROWTH AFTER 5 DAYS 10/05/18 06:30 Blood Gram Stain - Final TEST NOT PERFORMED 10/05/18 07:10 Urine,Hardwick Urine Culture - Final Yeast Species 09/25/18 12:10 Blood-Thru Central Line Blood Culture - Final NO GROWTH AFTER 5 DAYS 09/25/18 12:10 Blood-Thru Central Line Gram Stain - Final TEST NOT PERFORMED 09/20/18 14:00 Blood-Thru Central Line Blood Culture - Final NO GROWTH AFTER 5 DAYS 09/20/18 17:53 Trachasp Gram Stain - Final 09/20/18 17:53 Trachasp Sputum Culture - Final Yeast Species 09/20/18 17:53 Urine,Hardwick Urine Culture - Final No Growth (<1,000 CFU/ML) 09/15/18 15:35 Blood-Thru Central Line Blood Culture - Final NO GROWTH AFTER 5 DAYS 09/15/18 15:35 Blood-Thru Central Line Gram Stain - Final TEST NOT PERFORMED 09/15/18 15:25 Blood-Thru Central Line Blood Culture - Final NO GROWTH AFTER 5 DAYS 09/15/18 15:25 Blood-Thru Central Line Gram Stain - Final TEST NOT PERFORMED 09/08/18 11:49 Blood-Venous Blood Culture - Final NO GROWTH AFTER 5 DAYS 09/08/18 11:49 Blood-Venous Gram Stain - Final TEST NOT PERFORMED 09/08/18 11:49 Blood-Venous Blood Culture - Final NO GROWTH AFTER 5 DAYS 09/08/18 11:49 Blood-Venous Gram Stain - Final TEST NOT PERFORMED 09/07/18 Unknown Blood-Thru Central Line Blood Culture - Final NO GROWTH AFTER 5 DAYS 09/07/18 Unknown Blood-Thru Central Line Gram Stain - Final TEST NOT PERFORMED 09/07/18 Unknown Blood-Thru Central Line Blood Culture - Final NO GROWTH AFTER 5 DAYS 09/07/18 Unknown Blood-Thru Central Line Gram Stain - Final TEST NOT PERFORMED 09/07/18 09:07 Trachasp Gram Stain - Final 09/07/18 09:07 Trachasp Sputum Culture - Final Yeast Species 09/04/18 11:25 Naris MRSA Culture (Admit) - Final MRSA NOT DETECTED 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 remains on the vent on levophed . afebrile today. leukocytosis increasing despite being on antibiotics. one blood cx from port 10/31/2018 - coag neg staph repeat blood cx from the port 11/02/2018- reported as coag neg staph blood cx-11/01/2018- neg blood cx- neg x 11 trach asp cx- yeast ( treated) stool c.diff- negative repeat UA- negative repeat urine cx- yeast ( treated) hardwick removed 4 days ago repeat urine cx - yeast finally ID as catrachito lipolytica ( hardwick was removed a week ago). cxr - b/l pleural effusions PLan- had already completed 38 days of meropnem , 34 days of fluconazole, 25 days of vanco. abx resumed secondary to patient's remaining on the vent and immunecompromised secondary to her metastatic cancer and rising wbc . continue with vanco and cefepime day #7 keep vanco trough <20 in light of 2 blood cx from port now being reported as coag neg staph and rising wbc. port would need to be removed. check TTE r/o any vegetations as well. continue with micafungin as well for C.Lipolytica in urine cx.day #10 would most likely need another thoracenthesis to relieve the left pleural effusion as well. prognosis very poor. critical care time spent 40 minutes.
--- NOTE | 2018-11-07 12:00 | CP.PCM.PN ---
Subjective - Date & Time of Evaluation Date of Evaluation: 11/07/18 Time of Evaluation: 12:00 - Subjective Subjective: SEEN ON RENAL F/U IN ICU ALL EMR REVIEWED .. LABS REVIEWED .. 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 INTUBATED .. EDEMATOUS Objective - Vital Signs/Intake and Output Vital Signs (last 24 hours): Temp Pulse Resp BP Pulse Ox 97.9 F 109 H 13 97/55 L 97 11/07/18 09:00 11/07/18 11:00 11/07/18 11:00 11/07/18 11:00 11/07/18 11:00 Intake and Output: 11/07/18 11/07/18 06:59 18:59 Intake Total 1270 557 Output Total 1525 500 Balance -255 57 - Medications Medications: Current Medications Lactated Ringer's (Lactated Ringer's) 1,000 mls @ 50 mls/hr IV .Q20H GLADIS Last Admin: 11/07/18 05:52 Dose: 50 mls/hr Micafungin Sodium 50 mg/ (Sodium Chloride) 100 mls @ 100 mls/hr IVPB DAILY GLADIS; Protocol Last Admin: 11/07/18 10:00 Dose: 100 mls/hr Cefepime HCl 2 gm/ Sodium (Chloride) 100 mls @ 100 mls/hr IVPB Q12 GLADIS; Protocol Last Admin: 11/07/18 09:01 Dose: 100 mls/hr Lactated Ringer's (Lactated Ringer's) 1,000 mls @ 50 mls/hr IV .Q20H GLADIS Last Admin: 11/05/18 22:00 Dose: 50 mls/hr Vancomycin HCl 750 mg/ Sodium (Chloride) 250 mls @ 166.667 mls/hr IVPB DAILY GLADIS; Protocol Last Admin: 11/07/18 09:34 Dose: 166.667 mls/hr Norepinephrine Bitartrate 16 (mg/ Dextrose) 266 mls @ 9.98 mls/hr IV .Q24H ONE; Protocol Stop: 11/07/18 23:52 Last Titration: 11/07/18 09:56 Dose: 12.5 mcg/min, 12.47 mls/hr - Labs Labs: 11/07/18 04:10 11/07/18 04:10 PT 17.9 Seconds (9.8-13.1) H 11/04/18 06:01 INR 1.6 11/04/18 06:01 APTT 37.2 Seconds (25.6-37.1) H 11/04/18 06:01 Assessment and Plan - Assessment and Plan (Free Text) Plan: LOUIE .. MAINLY PRE RENAL AZOTEMIA ELECTROLYTES ABN .. VDRF SEPSIS MMP P: RENAL FUNCTION AND ELECTROLYTES ARE BETTER C/O CURRENT CARE C/O PRESENT MANAGEMENT
--- NOTE | 2018-11-07 13:53 | PQF ---
PROVIDER RESPONSE TEXT: Patient with pressure ulcer to sacrum stage 2 REVIEWER QUERY TEXT: Clarification of Clinical Diagnostic Findings Please clarify your query response: Sacral Ulcer: include the following in your documentation 1. Type of ulcer: i.e Pressure etc. 2. And if a Pressure Ulcer: the Stage of the Pressure Ulcer OR: Unable to determine OR: Other explanation of clinical findings 09/05: assistant winemaker:Pressure Ulcer Assessment::Rt. calf: Partial thickness: B/L Heel: Partial thickness loss of dermis presenting as a shallow ulcer 09/06 and forward: Critical Care note includes: ulcer posterior R calf worse than L 09/06 Wound RN: right posterior calf with denuded area and eschar; Right breast fungating wounds 09/11 Wound RN:Eschar on right calf resloved to yellow base: DTI noted to sacrum 09/16: assistant winemaker:Pressure Ulcer Assessment:Posterior Sacrum MASD: Partial thickness: Rt. Calf: Partial thickness 09/17 assistant winemaker:Pressure Ulcer Assessment:Posterior Sacrum: MASD: Full thickness tissue loss and Right Calf: intact skin non-blanchable redness of a localized area 09/20 assistant winemaker: Pressure Ulcer Assessment: Sacrum: Partial Thickness loss of dermis presenting as a sh allow ulcer 09/25 Wound RN; Sacral DTI is now evolved into an eschar at the center of the sacrum and partial thickn ess surrounding eschar. 10/30 assistant winemaker: Pressure Ulcer Assessment: Medial Back: and Sacrum full thickness tissue loss Stage of each pressure ulcer (National Pressure Ulcer Advisory Panel definitions): -- Stage I: Intact skin with non-blanchable redness of a localized area -- Stage II: Partial thickness skin loss involving dermis with a shallow open ulcer or an open serum -filled blister -- Stage III: Full thickness skin loss involving damage or necrosis of subcutaneous tissue -- Stage IV: Full thickness skin loss with exposed bone, tendon or muscle -- Unstageable: Full thickness tissue loss in which the base of the ulcer is covered by slough and/o r eschar in the wound bed The patient's Clinical Indicators include: -- Query created by: Dayami Hood on 10/31/2018 8:25 AM Electronically signed by: Kristen Norris MD 11/07/2018 1:50 PM
--- NOTE | 2018-11-07 14:03 | PQF ---
PROVIDER RESPONSE TEXT: Agree REVIEWER QUERY TEXT: Pressure Ulcer Type Wound RN notes include: 10/09: Under the trach plate Unstageable PI (pressure injury) secondary to pr essure and 0n 10/26: lateral to trach is a partial thickness wound. 1. Please document if you are in agreement with the Wound RN's documentation of an Unstageable PI un alessio the trach plate 2. And please clarify the Stage of the partial thickness wound if this is a Pressure Ulcer --OR: Disagree -- OR: Clinically unable to determine -- Unknown Stage of each pressure ulcer (National Pressure Ulcer Advisory Panel definitions): -- Stage I: Intact skin with non-blanchable redness of a localized area -- Stage II: Partial thickness skin loss involving dermis with a shallow open ulcer or an open serum -filled blister -- Stage III: Full thickness skin loss involving damage or necrosis of subcutaneous tissue -- Stage IV: Full thickness skin loss with exposed bone, tendon or muscle -- Unstageable: Full thickness tissue loss in which the base of the ulcer is covered by slough and/o r eschar in the wound bed The patient's Clinical Indicators include: -- Query created by: Dayami Hood on 10/31/2018 8:49 AM Electronically signed by: Kristen Norris MD 11/07/2018 2:00 PM
--- NOTE | 2018-11-07 17:53 | RAD ---
Date of service: 11/04/2018 HISTORY: Ventilator patient. COMPARISON: 11/03/2018. FINDINGS: LUNGS: Bilateral consolidative changes left more extensive than right. Improved aeration right lower lobe. PLEURA: Left pleural effusion inseparable from adjacent consolidative change. CARDIOVASCULAR: No atherosclerotic calcification present Venous access catheter in stable, satisfactory position. OSSEOUS STRUCTURES: No significant abnormalities. VISUALIZED UPPER ABDOMEN: Normal. OTHER FINDINGS: Stable, satisfactory position of tracheostomy device. Satisfactory position of nasogastric tube. IMPRESSION: Improved aeration right lower lobe. Stable left lung infiltrates. Stable pleural effusions. Stable position of support apparatus.
--- NOTE | 2018-11-07 22:23 | CP.PCM.PN ---
Subjective - Date & Time of Evaluation Date of Evaluation: 11/06/18 Time of Evaluation: 10:00 - Subjective Subjective: Vented Objective - Vital Signs/Intake and Output Vital Signs (last 24 hours): Temp Pulse Resp BP Pulse Ox 97.7 F 112 H 14 98/51 L 100 11/07/18 20:00 11/07/18 21:00 11/07/18 21:00 11/07/18 21:00 11/07/18 21:00 Intake and Output: 11/07/18 11/08/18 18:59 06:59 Intake Total 1567 230 Output Total 1500 290 Balance 67 -60 - Medications Medications: Current Medications Lactated Ringer's (Lactated Ringer's) 1,000 mls @ 50 mls/hr IV .Q20H GL[facility]IS Last Admin: 11/07/18 05:52 Dose: 50 mls/hr Micafungin Sodium 50 mg/ (Sodium Chloride) 100 mls @ 100 mls/hr IVPB DAILY GLADIS; Protocol Last Admin: 11/07/18 10:00 Dose: 100 mls/hr Cefepime HCl 2 gm/ Sodium (Chloride) 100 mls @ 100 mls/hr IVPB Q12 GLADIS; Protocol Last Admin: 11/07/18 20:07 Dose: 100 mls/hr Lactated Ringer's (Lactated Ringer's) 1,000 mls @ 50 mls/hr IV .Q20H GLADIS Last Admin: 11/07/18 17:25 Dose: Not Given Vancomycin HCl 750 mg/ Sodium (Chloride) 250 mls @ 166.667 mls/hr IVPB DAILY GLADIS; Protocol Last Admin: 11/07/18 09:34 Dose: 166.667 mls/hr Norepinephrine Bitartrate 16 (mg/ Dextrose) 266 mls @ 9.98 mls/hr IV .Q24H ONE; Protocol Stop: 11/07/18 23:52 Last Titration: 11/07/18 20:30 Dose: 17.5 mcg/min, 17.46 mls/hr - Labs Labs: 11/07/18 04:10 11/07/18 04:10 PT 17.9 Seconds (9.8-13.1) H 11/04/18 06:01 INR 1.6 11/04/18 06:01 APTT 37.2 Seconds (25.6-37.1) H 11/04/18 06:01 - Head Exam Head Exam: ATRAUMATIC - Eye Exam Eye Exam: Normal appearance - ENT Exam ENT Exam: Mucous Membranes Dry - Respiratory Exam Respiratory Exam: Decreased Breath Sounds - Cardiovascular Exam Cardiovascular Exam: +S1, +S2 - GI/Abdominal Exam GI & Abdominal Exam: Normal Bowel Sounds Assessment and Plan (1) DIC (disseminated intravascular coagulation) Assessment & Plan: low fibrinogen sepsis related, on abx Status: Acute (2) Thrombocytopenia Assessment & Plan: secondary to DIC and sepsis Status: Resolved (3) Anemia Assessment & Plan: anemia of chronic disease [employer] blood loss transfusion support PRN Status: Acute (4) Pulmonary embolism Assessment & Plan: not an anticoagulation candidate due to bleeding Status: Acute (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
--- NOTE | 2018-11-07 22:24 | CP.PCM.PN ---
Subjective - Date & Time of Evaluation Date of Evaluation: 11/07/18 Time of Evaluation: 13:00 - Subjective Subjective: Vented Objective - Vital Signs/Intake and Output Vital Signs (last 24 hours): Temp Pulse Resp BP Pulse Ox 97.7 F 114 H 16 98/53 L 99 11/07/18 20:00 11/07/18 22:00 11/07/18 22:00 11/07/18 22:00 11/07/18 22:00 Intake and Output: 11/07/18 11/08/18 18:59 06:59 Intake Total 1567 550 Output Total 1500 290 Balance 67 260 - Medications Medications: Current Medications Lactated Ringer's (Lactated Ringer's) 1,000 mls @ 50 mls/hr IV .Q20H GLADIS Last Admin: 11/07/18 05:52 Dose: 50 mls/hr Micafungin Sodium 50 mg/ (Sodium Chloride) 100 mls @ 100 mls/hr IVPB DAILY GLADIS; Protocol Last Admin: 11/07/18 10:00 Dose: 100 mls/hr Cefepime HCl 2 gm/ Sodium (Chloride) 100 mls @ 100 mls/hr IVPB Q12 GLADIS; Protocol Last Admin: 11/07/18 20:07 Dose: 100 mls/hr Lactated Ringer's (Lactated Ringer's) 1,000 mls @ 50 mls/hr IV .Q20H GLADIS Last Admin: 11/07/18 17:25 Dose: Not Given Vancomycin HCl 750 mg/ Sodium (Chloride) 250 mls @ 166.667 mls/hr IVPB DAILY GLADIS; Protocol Last Admin: 11/07/18 09:34 Dose: 166.667 mls/hr Norepinephrine Bitartrate 16 (mg/ Dextrose) 266 mls @ 9.98 mls/hr IV .Q24H ONE; Protocol Stop: 11/07/18 23:52 Last Titration: 11/07/18 20:30 Dose: 17.5 mcg/min, 17.46 mls/hr - Labs Labs: 11/07/18 04:10 11/07/18 04:10 PT 17.9 Seconds (9.8-13.1) H 11/04/18 06:01 INR 1.6 11/04/18 06:01 APTT 37.2 Seconds (25.6-37.1) H 11/04/18 06:01 - Head Exam Head Exam: ATRAUMATIC - Eye Exam Eye Exam: Normal appearance - ENT Exam ENT Exam: Mucous Membranes Dry - Respiratory Exam Respiratory Exam: Decreased Breath Sounds - Cardiovascular Exam Cardiovascular Exam: +S1, +S2 - GI/Abdominal Exam GI & Abdominal Exam: Normal Bowel Sounds - Extremities Exam Extremities Exam: Pedal Edema Assessment and Plan (1) DIC (disseminated intravascular coagulation) Assessment & Plan: low fibrinogen sepsis related, on abx Status: Acute (2) Thrombocytopenia Assessment & Plan: secondary to DIC and sepsis Status: Resolved (3) Anemia Assessment & Plan: anemia of chronic disease ADMINISTRATIVE ASST blood loss transfusion support PRN Status: Acute (4) Pulmonary embolism Assessment & Plan: not an anticoagulation candidate due to bleeding Status: Acute (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
--- NOTE | 2018-11-07 22:52 | PN ---
DATE: 11/07/2018 CRITICAL CARE PROGRESS NOTE LOCATION: The patient in ICU, bed 427. SUBJECTIVE: Time spent 35 minutes. The patient is seen and evaluated at the bedside. Case was discussed in multidisciplinary ICU rounds this morning. Remains on mechanical ventilation through a tracheostomy on AC/PRVC, rate of 12, tidal volume 450, FiO2 of 35%, observed rate 15, exhaled tidal volume 440, minute ventilation 6.5 L, FiO2 of 35% saturation of 100%. PHYSICAL EXAMINATION: HEAD, EYES, EARS, NOSE AND THROAT: Opens eyes but no eye contact. CHEST: Bilateral breath sounds, diminished in intensity. HEART: Rhythm regular. S1 and S2, rapid. ABDOMEN: Bowel sounds are present. Distended. EXTREMITIES: Dependent edema. NEUROLOGIC: Opens eyes but otherwise no eye contact or response. CURRENT MEDICATIONS: Cefepime 2 g IV every 12 hours, Pepcid 20 mg every 12 hours, Ringer's lactate at 50 mL per hour, micafungin 50 mg IV daily, Levophed 17.5 mcg per minute, vancomycin 750 mg IV daily. LABORATORY DATA: WBC 27.6, hemoglobin 8.7, hematocrit 27.3, platelet count 68. Fibrinogen 124. ABG, pH of 7.24, pCO2 of 35, pO2 of 104, saturation 100.2 on AC 12/450/35% with a PEEP of 5. SMA-7: Sodium 133, potassium 3.9, chloride 108, CO2 of 15, blood urea nitrogen 67, creatinine of 1, random glucose 130, calcium 7.4. Albumin 1.7. Corrected calcium level is within normal limits. Vancomycin trough level 21.3. Serology: C. difficile antigen and toxin are negative. ASSESSMENT AND PLAN: 1. Neurologic: Septic metabolic encephalopathy, recurrent bacteremia. 2. Pulmonary: Hypoxic respiratory failure, ventilator dependent, status post tracheostomy, bilateral pleural effusion, anasarca, unable to wean off the ventilator. 3. Cardiac: Hypotension, persistent, on Levophed and ongoing sepsis. 4. Hypovolemia due to hypoalbuminemia with increase in blood urea nitrogen and creatinine. 5. Hematology: Leukocytosis, worsening due to ongoing sepsis. Hemoglobin and hematocrit are stable. Thrombocytopenia, hypofibrinogenemia related to sepsis/disseminated intravascular coagulopathy. 6. Renal: Prerenal azotemia with blood urea nitrogen more than creatinine, hypoalbuminemia. 7. Gastrointestinal: Liver enzymes within normal limit. 8. Endocrinology: Maintain blood sugar in the acceptable range. 9. Oncology: Inflammatory breast carcinoma, right and also mullerian tract tumor. 10. Prognosis: Guarded. Demanding demise is expected. Continue supportive care. Javid Das MD
--- NOTE | 2018-11-07 23:19 | CP.PCM.PN ---
Subjective - Date & Time of Evaluation Date of Evaluation: 11/05/18 Time of Evaluation: 19:10 - Subjective Subjective: Seen and examined at the bed side.Poor Prognosis. Patient continue to bleed on And off. on Supportive care. D/w the mother who refused Terminal Extubation. Similar Several Attempts were mad by all patients' providers. Objective - Vital Signs/Intake and Output Vital Signs (last 24 hours): Temp Pulse Resp BP Pulse Ox 97.7 F 114 H 16 98/53 L 99 11/07/18 20:00 11/07/18 22:00 11/07/18 22:00 11/07/18 22:00 11/07/18 22:00 Intake and Output: 11/07/18 11/08/18 18:59 06:59 Intake Total 1567 550 Output Total 1500 290 Balance 67 260 - Medications Medications: Current Medications Lactated Ringer's (Lactated Ringer's) 1,000 mls @ 50 mls/hr IV .Q20H GLADIS Last Admin: 11/07/18 05:52 Dose: 50 mls/hr Micafungin Sodium 50 mg/ (Sodium Chloride) 100 mls @ 100 mls/hr IVPB DAILY GLADIS; Protocol Last Admin: 11/07/18 10:00 Dose: 100 mls/hr Cefepime HCl 2 gm/ Sodium (Chloride) 100 mls @ 100 mls/hr IVPB Q12 GLADIS; Protocol Last Admin: 11/07/18 20:07 Dose: 100 mls/hr Lactated Ringer's (Lactated Ringer's) 1,000 mls @ 50 mls/hr IV .Q20H GLADIS Last Admin: 11/07/18 17:25 Dose: Not Given Vancomycin HCl 750 mg/ Sodium (Chloride) 250 mls @ 166.667 mls/hr IVPB DAILY GLADIS; Protocol Last Admin: 11/07/18 09:34 Dose: 166.667 mls/hr Norepinephrine Bitartrate 16 (mg/ Dextrose) 266 mls @ 9.98 mls/hr IV .Q24H ONE; Protocol Stop: 11/07/18 23:52 Last Titration: 11/07/18 23:01 Dose: 20 mcg/min, 19.95 mls/hr - Labs Labs: 11/07/18 04:10 11/07/18 04:10 PT 17.9 Seconds (9.8-13.1) H 11/04/18 06:01 INR 1.6 11/04/18 06:01 APTT 37.2 Seconds (25.6-37.1) H 11/04/18 06:01 Assessment and Plan (1) Anasarca Status: Acute (2) Septic shock Status: Resolved (3) Multiple organ dysfunction syndrome Status: Acute (4) Acute respiratory failure with hypoxemia Status: Acute (5) Thrombocytopenia Status: Resolved (6) Ascites, malignant Status: Acute (7) Congestive heart failure (CHF) Status: Acute (8) Stage IV breast cancer in female Status: Acute (9) Severe anemia Status: Resolved (10) DVT of lower extremity, bilateral Status: Chronic
--- NOTE | 2018-11-07 23:20 | CP.PCM.PN ---
Subjective - Date & Time of Evaluation Date of Evaluation: 11/07/18 Time of Evaluation: 16:15 - Subjective Subjective: Seen and examined at the bed side.Poor Prognosis. Patient continue to bleed on And off. on Supportive care. D/w the mother who refused Comfort Care. Similar Several Attempts were mad by all patients' providers and staff. Objective - Vital Signs/Intake and Output Vital Signs (last 24 hours): Temp Pulse Resp BP Pulse Ox 97.7 F 114 H 16 98/53 L 99 11/07/18 20:00 11/07/18 22:00 11/07/18 22:00 11/07/18 22:00 11/07/18 22:00 Intake and Output: 11/07/18 11/08/18 18:59 06:59 Intake Total 1567 550 Output Total 1500 290 Balance 67 260 - Medications Medications: Current Medications Lactated Ringer's (Lactated Ringer's) 1,000 mls @ 50 mls/hr IV .Q20H GLADIS Last Admin: 11/07/18 05:52 Dose: 50 mls/hr Micafungin Sodium 50 mg/ (Sodium Chloride) 100 mls @ 100 mls/hr IVPB DAILY GLADIS; Protocol Last Admin: 11/07/18 10:00 Dose: 100 mls/hr Cefepime HCl 2 gm/ Sodium (Chloride) 100 mls @ 100 mls/hr IVPB Q12 GLADIS; Protocol Last Admin: 11/07/18 20:07 Dose: 100 mls/hr Lactated Ringer's (Lactated Ringer's) 1,000 mls @ 50 mls/hr IV .Q20H GLADIS Last Admin: 11/07/18 17:25 Dose: Not Given Vancomycin HCl 750 mg/ Sodium (Chloride) 250 mls @ 166.667 mls/hr IVPB DAILY S ; Protocol Last Admin: 11/07/18 09:34 Dose: 166.667 mls/hr Norepinephrine Bitartrate 16 (mg/ Dextrose) 266 mls @ 9.98 mls/hr IV .Q24H ONE; Protocol Stop: 11/07/18 23:52 Last Titration: 11/07/18 23:01 Dose: 20 mcg/min, 19.95 mls/hr - Labs Labs: 11/07/18 04:10 11/07/18 04:10 PT 17.9 Seconds (9.8-13.1) H 11/04/18 06:01 INR 1.6 11/04/18 06:01 APTT 37.2 Seconds (25.6-37.1) H 11/04/18 06:01 Assessment and Plan (1) Anasarca Status: Acute (2) Septic shock Status: Resolved (3) Multiple organ dysfunction syndrome Status: Acute (4) Acute respiratory failure with hypoxemia Status: Acute (5) Thrombocytopenia Status: Resolved (6) Ascites, malignant Status: Acute (7) Congestive heart failure (CHF) Status: Acute (8) Stage IV breast cancer in female Status: Acute (9) Severe anemia Status: Resolved (10) DVT of lower extremity, bilateral Status: Chronic
[2018-11-08 05:22] LABS: ABG ALLEN TEST YES; ARTERIAL BLOOD GAS HCO3 15.7 mmol/L (21-28); ARTERIAL BLOOD GAS HEMOGLOBIN 8.9 g/dL (11.7-17.4); ARTERIAL BLOOD GAS O2 CAPACITY 12.3 mL/dL (16-24); ARTERIAL BLOOD GAS O2 CONTENT 12.3 ML/dL (15-23); ARTERIAL BLOOD GAS O2 SAT 100.4 % (95-98); ARTERIAL BLOOD GAS PCO2 27 mm/Hg (35-45); ARTERIAL BLOOD GAS PO2 101 mm/Hg (80-100); ARTERIAL BLOOD GAS TCO2 14.1 mmol/L (22-28)
[2018-11-08 05:54] LABS: HEMOGLOBIN 8.5 g/dL (12.0-16.0); MEAN CELL VOLUME 96.6 fl (81.0-99.0); MEAN CORPUSCULAR HEMOGLOBIN 30.2 pg (27.0-31.0); MEAN CORPUSCULAR HGB CONC 31.2 g/dL (33.0-37.0); RBC 2.82 Mil/uL (3.80-5.20); RED CELL DISTRIBUTION WIDTH 19.4 % (11.5-14.5); WHITE BLOOD COUNT 28.6 K/uL (4.8-10.8)
[2018-11-08 06:07] LABS: BLOOD UREA NITROGEN 71 mg/dl (7-17); CALCIUM 7.6 mg/dL (8.4-10.2); GFR NON-AFRICAN AMERICAN 51
[2018-11-08] MEDS ORDERED: Potassium Chloride 20 mEq 100 ML IVPB ONE (07:46)
--- NOTE | 2018-11-08 08:19 | RAD ---
Date of service: 11/08/2018 PROCEDURE: CHEST RADIOGRAPH, 1 VIEW HISTORY: Mechanically ventilated. COMPARISON: 11/07/2018 FINDINGS: LUNGS: Tracheostomy tube in place as before. Shallow lung volumes as before. Right basal atelectasis. Moderate left basal atelectasis Concomitant moderate left pleural effusion and minimal right pleural effusion. Concomitant left basal infiltrate not excluded. PLEURA: No pneumothorax appreciated. Bilateral pleural effusions as detailed in above section. CARDIOVASCULAR: No aortic atherosclerotic calcification present. Cardiomegaly suspect-similar left pleural effusion obscuring most of the left heart border. Left-sided MediPort tip superior vena cava-as before. OSSEOUS STRUCTURES: No significant abnormalities. VISUALIZED UPPER ABDOMEN: Nasogastric tube appears in stomach. OTHER FINDINGS: Hyperdensity over right chest possibly right breast implant. Similar appearing IMPRESSION: No interval change perceived. Mixed pathologies as above.
[2018-11-08] MEDS: Lactated Ringer's 1,000 ML IV SCH (08:41)
[2018-11-08] MEDS: Cefepime 2 GM in Sodium Chloride 0.9% 100 ML IVPB SCH ×2 (08:41→20:54)
--- NOTE | 2018-11-08 09:22 | CP.PCM.PN ---
Subjective - Date & Time of Evaluation Date of Evaluation: 11/08/18 Time of Evaluation: 09:22 - Subjective Subjective: ID Note- Patient seen and examined today in ICU. no new events overnight. remains on the vent and unresponsive. Objective - Vital Signs/Intake and Output Vital Signs (last 24 hours): Temp Pulse Resp BP Pulse Ox 97.5 F L 112 H 14 108/54 L 100 11/08/18 08:00 11/08/18 08:00 11/08/18 08:00 11/08/18 08:00 11/08/18 08:00 Intake and Output: 11/08/18 11/08/18 06:59 18:59 Intake Total 1457 298 Output Total 1190 Balance 267 298 - Medications Medications: Current Medications Lactated Ringer's (Lactated Ringer's) 1,000 mls @ 50 mls/hr IV .Q20H GLADIS Last Admin: 11/08/18 08:41 Dose: 50 mls/hr Micafungin Sodium 50 mg/ (Sodium Chloride) 100 mls @ 100 mls/hr IVPB DAILY GLADIS; Protocol Last Admin: 11/08/18 08:51 Dose: 100 mls/hr Cefepime HCl 2 gm/ Sodium (Chloride) 100 mls @ 100 mls/hr IVPB Q12 GLADIS; Protocol Last Admin: 11/08/18 08:41 Dose: 100 mls/hr Lactated Ringer's (Lactated Ringer's) 1,000 mls @ 50 mls/hr IV .Q20H GLADIS Last Admin: 11/07/18 17:25 Dose: Not Given Vancomycin HCl 750 mg/ Sodium (Chloride) 250 mls @ 166.667 mls/hr IVPB DAILY GLADIS; Protocol Last Admin: 11/07/18 09:34 Dose: 166.667 mls/hr Norepinephrine Bitartrate 16 (mg/ Dextrose) 266 mls @ 12.47 mls/hr IV .[id number] ONE; Protocol Stop: 11/08/18 21:58 Last Titration: 11/08/18 06:26 Dose: 15 mcg/min, 14.96 mls/hr Potassium Chloride (Potassium Chloride 20 Meq/100 Ml) 100 mls @ 50 mls/hr IVPB ONCE ONE Stop: 11/08/18 09:45 - Labs Labs: - Additional Findings Additional findings: - Constitutional Appears: Chronically Ill Additional comments: - ENT Exam Additional comments: s/p trache - Respiratory Exam Additional comments: On the vent via Trach decreased breath sounds on left side - Cardiovascular Exam Cardiovascular Exam: Tachycardia, +S1, +S2 - GI/Abdominal Exam Additional comments: distended , soft hypoactive BS + ascites anasarca weeping from previous paracenthesis site and has bag over it draining clear fluid - Extremities Exam Additional comments: b/l 2+ edema in LE and UE - Neurological Exam Additional comments: does not follow any commands Laboratory Results - last 72 hr 11/06/18 11/06/18 11/06/18 05:03 05:31 05:31 WBC 23.6 H RBC 3.03 L Hgb 9.2 L Hct 29.2 L MCV 96.6 MCH 30.3 MCHC 31.4 L RDW 20.1 H Plt Count 68 L MPV 11.3 Neut % (Auto) 93.9 H Lymph % (Auto) 1.6 L [place] % (Auto) 4.3 Eos % (Auto) 0.1 Baso % (Auto) 0.1 Neut # (Auto) 22.2 H Lymph # (Auto) 0.4 L [place] # (Auto) 1.0 H Eos # (Auto) 0.0 Baso # (Auto) 0.0 Total Counted Cancelled Neutrophils % (Manual) Cancelled Band Neutrophils % Cancelled Lymphocytes % (Manual) Cancelled Reactive Lymphs % Cancelled Monocytes % (Manual) Cancelled Eosinophils % (Manual) Cancelled Basophils % (Manual) Cancelled Metamyelocytes % Cancelled Myelocytes % Cancelled Promyelocytes % Cancelled Blast Cells % Cancelled Plasma Cell % (Manual) Cancelled Nucleated RBC % Cancelled Hypersegmented Polys Cancelled Smudge Cells Cancelled Toxic Granulation Cancelled Dohle Bodies Cancelled Devorah Rods Cancelled Platelet Estimate Cancelled Plt Clumps, EDTA Cancelled Large Platelets Cancelled Giant Platelets Cancelled RBC Morphology Cancelled Polychromasia Cancelled Hypochromasia (manual) Cancelled Poikilocytosis (manual Cancelled Basophilic Stippling Cancelled Anisocytosis (manual) Cancelled Microcytosis (manual) Cancelled Macrocytosis (manual) Cancelled Spherocytes Cancelled Sickle Cells Cancelled Target Cells Cancelled Tear Drop Cells Cancelled Ovalocytes Cancelled Stomatocytes Cancelled Helmet Cells Cancelled [place] Bodies Cancelled [place] Cells Cancelled Acanthocytes (Spur) Cancelled Rouleaux Cancelled Schistocytes Cancelled Fibrinogen 124 L pCO2 31 L pO2 112 H HCO3 16.3 L ABG pH 7.28 L ABG Total CO2 15.6 L ABG O2 Saturation 100.2 H ABG O2 Content 13.0 L ABG Base Excess -11.1 L ABG Hemoglobin 9.4 L ABG Carboxyhemoglobin 2.0 H POC ABG HHb (Measured) -0.2 L ABG Methemoglobin 1.7 ABG O2 Capacity 13.0 L Frederic Test Yes A-a O2 Difference 99.0 Hgb O2 Saturation 96.5 Vent Mode A/c Mechanical Rate 12 FiO2 35.0 Tidal Volume 450 PEEP 5 Sodium Potassium Chloride Carbon Dioxide Anion Gap BUN Creatinine Est GFR ( Amer) Est GFR (Non-Af Amer) Random Glucose Calcium Phosphorus Magnesium Total Bilirubin AST ALT Alkaline Phosphatase Total Protein Albumin Globulin Albumin/Globulin Ratio 11/06/18 11/07/18 11/07/18 05:31 04:10 04:10 WBC 27.6 H RBC 2.85 L Hgb 8.7 L Hct 27.3 L MCV 96.0 MCH 30.6 MCHC 31.9 L RDW 19.8 H Plt Count 68 L MPV Neut % (Auto) Lymph % (Auto) [place] % (Auto) Eos % (Auto) Baso % (Auto) Neut # (Auto) Lymph # (Auto) [place] # (Auto) Eos # (Auto) Baso # (Auto) Total Counted Neutrophils % (Manual) Band Neutrophils % Lymphocytes % (Manual) Reactive Lymphs % Monocytes % (Manual) Eosinophils % (Manual) Basophils % (Manual) Metamyelocytes % Myelocytes % Promyelocytes % Blast Cells % Plasma Cell % (Manual) Nucleated RBC % Hypersegmented Polys Smudge Cells Toxic Granulation Dohle Bodies Devorah Rods Platelet Estimate Plt Clumps, EDTA Large Platelets Giant Platelets RBC Morphology Polychromasia Hypochromasia (manual) Poikilocytosis (manual Basophilic Stippling Anisocytosis (manual) Microcytosis (manual) Macrocytosis (manual) Spherocytes Sickle Cells Target Cells Tear Drop Cells Ovalocytes Stomatocytes Helmet Cells [place] Bodies [place] Cells Acanthocytes (Spur) Rouleaux Schistocytes Fibrinogen pCO2 pO2 HCO3 ABG pH ABG Total CO2 ABG O2 Saturation ABG O2 Content ABG Base Excess ABG Hemoglobin ABG Carboxyhemoglobin POC ABG HHb (Measured) ABG Methemoglobin ABG O2 Capacity Frederic Test A-a O2 Difference Hgb O2 Saturation Vent Mode Mechanical Rate FiO2 Tidal Volume PEEP Sodium 132 133 Potassium 3.7 3.9 Chloride 106 108 H Carbon Dioxide 14 L 15 L Anion Gap 16 14 BUN 62 H 67 H Creatinine 0.9 1.0 Est GFR ( Amer) > 60 > 60 Est GFR (Non-Af Amer) > 60 57 Random Glucose 127 H 130 H Calcium 7.2 L 7.4 L Phosphorus 6.1 H Magnesium 1.9 Total Bilirubin 0.4 AST 30 ALT 24 Alkaline Phosphatase 181 H Total Protein 4.6 L Albumin 1.7 L Globulin 2.9 Albumin/Globulin Ratio 0.6 L 11/07/18 11/08/18 11/08/18 04:56 05:08 05:32 WBC 28.6 H RBC 2.82 L Hgb 8.5 L Hct 27.2 L MCV 96.6 MCH 30.2 MCHC 31.2 L RDW 19.4 H Plt Count 65 L MPV Neut % (Auto) Lymph % (Auto) [place] % (Auto) Eos % (Auto) Baso % (Auto) Neut # (Auto) Lymph # (Auto) [place] # (Auto) Eos # (Auto) Baso # (Auto) Total Counted Neutrophils % (Manual) Band Neutrophils % Lymphocytes % (Manual) Reactive Lymphs % Monocytes % (Manual) Eosinophils % (Manual) Basophils % (Manual) Metamyelocytes % Myelocytes % Promyelocytes % Blast Cells % Plasma Cell % (Manual) Nucleated RBC % Hypersegmented Polys Smudge Cells Toxic Granulation Dohle Bodies Devorah Rods Platelet Estimate Plt Clumps, EDTA Large Platelets Giant Platelets RBC Morphology Polychromasia Hypochromasia (manual) Poikilocytosis (manual Basophilic Stippling Anisocytosis (manual) Microcytosis (manual) Macrocytosis (manual) Spherocytes Sickle Cells Target Cells Tear Drop Cells Ovalocytes Stomatocytes Helmet Cells [place] Bodies Naina Cells Acanthocytes (Spur) Rouleaux Schistocytes Fibrinogen pCO2 35 27 L pO2 104 H 101 H HCO3 16.0 L 15.7 L ABG pH 7.24 L 7.30 L ABG Total CO2 16.1 L 14.1 L ABG O2 Saturation 100.2 H 100.4 H ABG O2 Content 12.5 L 12.3 L ABG Base Excess -11.4 L -11.9 L ABG Hemoglobin 9.1 L 8.9 L ABG Carboxyhemoglobin 2.3 H 2.3 H POC ABG HHb (Measured) -0.2 L -0.4 L ABG Methemoglobin 1.8 1.7 ABG O2 Capacity 12.5 L 12.3 L Frederic Test Yes Yes A-a O2 Difference 102.0 115.0 Hgb O2 Saturation 96.1 96.5 Vent Mode A/c A/c Mechanical Rate 12 12 FiO2 35.0 35.0 Tidal Volume 450 450 PEEP 5 5 Sodium Potassium Chloride Carbon Dioxide Anion Gap BUN Creatinine Est GFR ( Amer) Est GFR (Non-Af Amer) Random Glucose Calcium Phosphorus Magnesium Total Bilirubin AST ALT Alkaline Phosphatase Total Protein Albumin Globulin Albumin/Globulin Ratio 11/08/18 05:32 WBC RBC Hgb Hct MCV MCH MCHC RDW Plt Count MPV Neut % (Auto) Lymph % (Auto) [place] % (Auto) Eos % (Auto) Baso % (Auto) Neut # (Auto) Lymph # (Auto) [place] # (Auto) Eos # (Auto) Baso # (Auto) Total Counted Neutrophils % (Manual) Band Neutrophils % Lymphocytes % (Manual) Reactive Lymphs % Monocytes % (Manual) Eosinophils % (Manual) Basophils % (Manual) Metamyelocytes % Myelocytes % Promyelocytes % Blast Cells % Plasma Cell % (Manual) Nucleated RBC % Hypersegmented Polys Smudge Cells Toxic Granulation Dohle Bodies Devorah Rods Platelet Estimate Plt Clumps, EDTA Large Platelets Giant Platelets RBC Morphology Polychromasia Hypochromasia (manual) Poikilocytosis (manual Basophilic Stippling Anisocytosis (manual) Microcytosis (manual) Macrocytosis (manual) Spherocytes Sickle Cells Target Cells Tear Drop Cells Ovalocytes Stomatocytes Helmet Cells [place] Bodies [place] Cells Acanthocytes (Spur) Rouleaux Schistocytes Fibrinogen pCO2 pO2 HCO3 ABG pH ABG Total CO2 ABG O2 Saturation ABG O2 Content ABG Base Excess ABG Hemoglobin ABG Carboxyhemoglobin POC ABG HHb (Measured) ABG Methemoglobin ABG O2 Capacity Frederic Test A-a O2 Difference Hgb O2 Saturation Vent Mode Mechanical Rate FiO2 Tidal Volume PEEP Sodium 132 Potassium 3.5 L Chloride 108 H Carbon Dioxide 14 L Anion Gap 14 BUN 71 H Creatinine 1.1 Est GFR ( Amer) > 60 Est GFR (Non-Af Amer) 51 Random Glucose 132 H Calcium 7.6 L Phosphorus Magnesium Total Bilirubin AST ALT Alkaline Phosphatase Total Protein Albumin Globulin Albumin/Globulin Ratio Microbiology 11/02/18 04:18 Blood-Venous Blood Culture - Final NO GROWTH AFTER 5 DAYS 11/02/18 04:18 Blood-Venous Gram Stain - Final TEST NOT PERFORMED 11/01/18 04:58 Blood-Venous Blood Culture - Final NO GROWTH AFTER 5 DAYS 11/01/18 04:58 Blood-Venous Gram Stain - Final TEST NOT PERFORMED 11/02/18 04:18 Blood-Thru Central Line S.aureus & Coag-Neg Staph PNA FISH - Final 11/02/18 04:18 Blood-Thru Central Line Blood Culture - Final Coagulase Neg Staphylococcus 11/02/18 04:18 Blood-Thru Central Line Gram Stain - Final 10/31/18 09:02 Trachasp Gram Stain - Final 10/31/18 09:02 Trachasp Sputum Culture - Final Yeast Species 10/29/18 14:30 Blood-Venous Blood Culture - Final NO GROWTH AFTER 5 DAYS 10/29/18 14:30 Blood-Venous Gram Stain - Final TEST NOT PERFORMED 10/29/18 14:40 Blood-Venous Blood Culture - Final NO GROWTH AFTER 5 DAYS 10/29/18 14:40 Blood-Venous Gram Stain - Final TEST NOT PERFORMED 10/31/18 07:00 Blood-Thru Central Line S.aureus & Coag-Neg Staph PNA FISH - Final 10/31/18 07:00 Blood-Thru Central Line Blood Culture - Final Coagulase Neg Staphylococcus 10/31/18 07:00 Blood-Thru Central Line Gram Stain - Final 10/27/18 14:00 Blood-Thru Central Line Blood Culture - Final NO GROWTH AFTER 5 DAYS 10/27/18 14:00 Blood-Thru Central Line Gram Stain - Final TEST NOT PERFORMED 10/26/18 18:20 Blood-Thru Central Line Blood Culture - Final NO GROWTH AFTER 5 DAYS 10/21/18 08:00 Urine,Catheterized Urine Culture - Preliminary Catrachito Species 10/18/18 11:55 Blood-Thru Central Line Blood Culture - Final NO GROWTH AFTER 5 DAYS 10/18/18 11:55 Blood-Thru Central Line Gram Stain - Final TEST NOT PERFORMED 10/05/18 06:15 Blood Blood Culture - Final NO GROWTH AFTER 5 DAYS 10/05/18 06:15 Blood Gram Stain - Final TEST NOT PERFORMED 10/05/18 06:30 Blood Blood Culture - Final NO GROWTH AFTER 5 DAYS 10/05/18 06:30 Blood Gram Stain - Final TEST NOT PERFORMED 10/05/18 07:10 Urine,Hardwick Urine Culture - Final Yeast Species 09/25/18 12:10 Blood-Thru Central Line Blood Culture - Final NO GROWTH AFTER 5 DAYS 09/25/18 12:10 Blood-Thru Central Line Gram Stain - Final TEST NOT PERFORMED 09/20/18 14:00 Blood-Thru Central Line Blood Culture - Final NO GROWTH AFTER 5 DAYS 09/20/18 17:53 Trachasp Gram Stain - Final 09/20/18 17:53 Trachasp Sputum Culture - Final Yeast Species 09/20/18 17:53 Urine,Hardwick Urine Culture - Final No Growth (<1,000 CFU/ML) 09/15/18 15:35 Blood-Thru Central Line Blood Culture - Final NO GROWTH AFTER 5 DAYS 09/15/18 15:35 Blood-Thru Central Line Gram Stain - Final TEST NOT PERFORMED 09/15/18 15:25 Blood-Thru Central Line Blood Culture - Final NO GROWTH AFTER 5 DAYS 09/15/18 15:25 Blood-Thru Central Line Gram Stain - Final TEST NOT PERFORMED 09/08/18 11:49 Blood-Venous Blood Culture - Final NO GROWTH AFTER 5 DAYS 09/08/18 11:49 Blood-Venous Gram Stain - Final TEST NOT PERFORMED 09/08/18 11:49 Blood-Venous Blood Culture - Final NO GROWTH AFTER 5 DAYS 09/08/18 11:49 Blood-Venous Gram Stain - Final TEST NOT PERFORMED 09/07/18 Unknown Blood-Thru Central Line Blood Culture - Final NO GROWTH AFTER 5 DAYS 09/07/18 Unknown Blood-Thru Central Line Gram Stain - Final TEST NOT PERFORMED 09/07/18 Unknown Blood-Thru Central Line Blood Culture - Final NO GROWTH AFTER 5 DAYS 09/07/18 Unknown Blood-Thru Central Line Gram Stain - Final TEST NOT PERFORMED 09/07/18 09:07 Trachasp Gram Stain - Final 02/14/19 09:07 Trachasp Sputum Culture - Final Yeast Species 09/04/18 11:25 Naris MRSA Culture (Admit) - Final MRSA NOT DETECTED Accession No. : [id number] Patient Name / ID : RYLEE ONEIL / [id number] Exam Date : 11/08/2018 04:08:18 ( Approved ) Study Comment : Sex / Age : F / [id number] Creator : Daisy Pearce Dictator : Daisy Pearce Division Plant Engineer : Personalized Living Manager : Daisy Pearce Approver2 : Report Date : 11/08/2018 08:13:16 My Comment : Date of service: 11/08/2018 PROCEDURE: CHEST RADIOGRAPH, 1 VIEW HISTORY: Mechanically ventilated. COMPARISON: 11/07/2018 FINDINGS: LUNGS: Tracheostomy tube in place as before. Shallow lung volumes as before. Right basal atelectasis. Moderate left basal atelectasis Concomitant moderate left pleural effusion and minimal right pleural effusion. Concomitant left basal infiltrate not excluded. PLEURA: No pneumothorax appreciated. Bilateral pleural effusions as detailed in above section. CARDIOVASCULAR: No aortic atherosclerotic calcification present. Cardiomegaly suspect-similar left pleural effusion obscuring most of the left heart border. Left-sided MediPort tip superior vena cava-as before. OSSEOUS STRUCTURES: No significant abnormalities. VISUALIZED UPPER ABDOMEN: Nasogastric tube appears in stomach. OTHER FINDINGS: Hyperdensity over right chest possibly right breast implant. Similar appearing IMPRESSION: No interval change perceived. Mixed pathologies as above. 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 remains on the vent on levophed . afebrile today. leukocytosis increasing despite being on antibiotics. one blood cx from port 10/31/2018 - coag neg staph repeat blood cx from the port 11/02/2018- reported as coag neg staph blood cx-11/01/2018- neg blood cx- neg x 11 trach asp cx- yeast ( treated) stool c.diff- negative repeat UA- negative repeat urine cx- yeast ( treated) hardwick removed 4 days ago repeat urine cx - yeast finally ID as catrachito lipolytica ( hardwick was removed a week ago). cxr - b/l pleural effusions PLan- had already completed 38 days of meropnem , 34 days of fluconazole, 25 days of vanco. abx resumed secondary to patient's remaining on the vent and immunecompromised secondary to her metastatic cancer and rising wbc . continue with vanco and cefepime day #8 keep vanco trough <20 in light of 2 blood cx from port now being reported as coag neg staph and rising wbc. port would need to be removed. check TTE r/o any vegetations as well. continue with micafungin as well for C.Lipolytica in urine cx.day #11 would most likely need another thoracenthesis to relieve the left pleural effusion as well. prognosis very poor. critical care time spent 40 minutes.
--- NOTE | 2018-11-08 15:10 | CP.CCUPN ---
<Stormy Avina - Last Filed: 11/08/18 16:33> CCU Subjective - Physician Review Subjective (Free Text): No acute overnight events. Patient intubated and sedated. Eyes opening, blank-stare. Not following any commands Clinically remains the same, prognosis unchanged. Assessment/Plan: 1. Acute respiratory failure, pneumonia, pleural effusions -intubated sedated -ID consulted, on IV abx -s/p thoracentesis 10/20 -s/p trach sig sergo, on antifungal 2. Hypotension -likely multifactoral -c/w levofed, start albumin -CHF, Echo EF 15-20%, 3. 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 Anasarca -start albumin 25% -d/c IV fluids 5. Acute on chronic anemia -likely 2/2 to blood loss and poor bone marrow production -s/p multiple PRBC transfusion -cont to monitor for now, no active bleeding 6. Breast CA, [place] Tract CA -chronic, no a candidate for treatment at this time Critical Care Time Spent (in minutes): 40 CCU Objective - Vital Signs / Intake & Output Vital Signs (Last 4 hours): Vital Signs Temp Pulse Resp BP Pulse Ox 11/08/18 12:00 98.2 F 112 H 15 102/50 L 99 Intake and Output (Last 8hrs): Intake & Output 11/08/18 11/08/18 11/08/18 06:59 14:59 22:59 Intake Total 907 888 Output Total 900 0 Balance 7 888 Weight 71.441 kg Intake: IV 527 378 Intake, Piggyback 200 Tube Feeding 280 210 Free Water Flush 100 100 Output: Gastric Amount 0 Stomach 0 Drainage 840 Right Lower Abdomen 780 Right Upper Thigh 60 Urine 60 Urethral (Orellana) 60 - Physical Exam Head: Positive for: Atraumatic, Normocephalic Extroacular Muscles: Positive for: EOMI Conjunctiva: Negative for: Injected, Icteric Ears: Positive for: Normal Mouth: Positive for: Dry, Other (poor dentition ) Neck: Positive for: Trachea Midline, Other (tracheostomy) Respiratory/Chest: Positive for: Good Air Exchange, Rales, Rhonchi, Other (course breath sounds). Negative for: Accessory Muscle Use, Wheezes, Tachypneic Cardiovascular: Positive for: Regular Rate and Rhythm, Normal S1, S2, Peripheal Pulses Present. Negative for: Murmurs, Irregular Rhythm, Tachycardic, Bradycardic Abdomen: Positive for: Normal Bowel Sounds Breast/Axillary: Positive for: Other (fungating necrotic mass to Right Breast) Upper Extremity: Positive for: Edema, NORMAL PULSES Lower Extremity: Positive for: Edema, NORMAL PULSES. Negative for: Normal Inspection Neurological: Positive for: Other (on ventilator, spontaneous eye opening) Psychiatric: Negative for: Alert - Medications Active Medications: Active Medications Generic Name Dose Route Start Last Admin Trade Name Freq PRN Reason Stop Dose Admin Albumin Human 25 gm 11/08/18 16:00 Albumin Human 25% (12.5 Gm/50 Ml) IV Q6 GLADIS Micafungin Sodium 50 mg/ 100 mls @ 100 mls/hr 10/27/18 09:00 11/08/18 08:51 Sodium Chloride IVPB 100 mls/hr DAILY GLADIS Administration Protocol Cefepime HCl 2 gm/ Sodium 100 mls @ 100 mls/hr 10/30/18 21:00 11/08/18 08:41 Chloride IVPB 100 mls/hr Q12 GLADIS Administration Protocol Vancomycin HCl 750 mg/ Sodium 250 mls @ 166.667 mls/hr 11/06/18 15:15 11/08/18 15:00 Chloride IVPB 166.667 mls/hr DAILY GLADIS Administration Protocol Norepinephrine Bitartrate 16 266 mls @ 12.47 mls/hr 11/08/18 00:39 11/08/18 06:26 mg/ Dextrose IV 11/08/18 21:58 15 mcg/min .[id number] ONE 14.96 mls/hr Titration Protocol 12.5 MCG/MIN - Patient Studies Lab Studies: Lab Studies 11/08/18 11/08/18 11/08/18 Range/Units 12:15 05:32 05:32 WBC 28.6 H (4.8-10.8) K/uL RBC 2.82 L (3.80-5.20) Mil/uL Hgb 8.5 L (12.0-16.0) g/dL Hct 27.2 L (34.0-47.0) % MCV 96.6 (81.0-99.0) fl MCH 30.2 (27.0-31.0) pg MCHC 31.2 L (33.0-37.0) g/dL RDW 19.4 H (11.5-14.5) % Plt Count 65 L (130-400) K/uL pCO2 (35-45) mm/Hg pO2 (80-100) mm/Hg HCO3 (21-28) mmol/L ABG pH (7.35-7.45) ABG Total CO2 (22-28) mmol/L ABG O2 Saturation (95-98) % ABG O2 Content (15-23) ML/dL ABG Base Excess (-2.0-3.0) mmol/L ABG Hemoglobin (11.7-17.4) g/dL ABG Carboxyhemoglobin (0.5-1.5) % POC ABG HHb (Measured) (0.0-5.0) % ABG Methemoglobin (0.0-3.0) % ABG O2 Capacity (16-24) mL/dL Frederic Test A-a O2 Difference mm/Hg Hgb O2 Saturation (95.0-98.0) % Vent Mode Mechanical Rate FiO2 % Tidal Volume PEEP Sodium 132 (132-148) mmol/l Potassium 3.5 L (3.6-5.0) MMOL/L Chloride 108 H (98-107) mmol/L Carbon Dioxide 14 L (22-30) mmol/L Anion Gap 14 (10-20) BUN 71 H (7-17) mg/dl Creatinine 1.1 (0.7-1.2) mg/dl Est GFR ( Amer) > 60 Est GFR (Non-Af Amer) 51 Random Glucose 132 H (65-105) mg/dL Calcium 7.6 L (8.4-10.2) mg/dL Vancomycin Trough 27.5 H (5.0-10.0) ug/mL 11/08/18 Range/Units 05:08 WBC (4.8-10.8) K/uL RBC (3.80-5.20) Mil/uL Hgb (12.0-16.0) g/dL Hct (34.0-47.0) % MCV (81.0-99.0) fl MCH (27.0-31.0) pg MCHC (33.0-37.0) g/dL RDW (11.5-14.5) % Plt Count (130-400) K/uL pCO2 27 L (35-45) mm/Hg pO2 101 H (80-100) mm/Hg HCO3 15.7 L (21-28) mmol/L ABG pH 7.30 L (7.35-7.45) ABG Total CO2 14.1 L (22-28) mmol/L ABG O2 Saturation 100.4 H (95-98) % ABG O2 Content 12.3 L (15-23) ML/dL ABG Base Excess -11.9 L (-2.0-3.0) mmol/L ABG Hemoglobin 8.9 L (11.7-17.4) g/dL ABG Carboxyhemoglobin 2.3 H (0.5-1.5) % POC ABG HHb (Measured) -0.4 L (0.0-5.0) % ABG Methemoglobin 1.7 (0.0-3.0) % ABG O2 Capacity 12.3 L (16-24) mL/dL Frederic Test Yes A-a O2 Difference 115.0 mm/Hg Hgb O2 Saturation 96.5 (95.0-98.0) % Vent Mode A/c Mechanical Rate 12 FiO2 35.0 % Tidal Volume 450 PEEP 5 Sodium (132-148) mmol/l Potassium (3.6-5.0) MMOL/L Chloride (98-107) mmol/L Carbon Dioxide (22-30) mmol/L Anion Gap (10-20) BUN (7-17) mg/dl Creatinine (0.7-1.2) mg/dl Est GFR ( Amer) Est GFR (Non-Af Amer) Random Glucose (65-105) mg/dL Calcium (8.4-10.2) mg/dL Vancomycin Trough (5.0-10.0) ug/mL Laboratory Results - last 24 hr 11/08/18 11/08/18 11/08/18 05:08 05:32 05:32 WBC 28.6 H RBC 2.82 L Hgb 8.5 L Hct 27.2 L MCV 96.6 MCH 30.2 MCHC 31.2 L RDW 19.4 H Plt Count 65 L pCO2 27 L pO2 101 H HCO3 15.7 L ABG pH 7.30 L ABG Total CO2 14.1 L ABG O2 Saturation 100.4 H ABG O2 Content 12.3 L ABG Base Excess -11.9 L ABG Hemoglobin 8.9 L ABG Carboxyhemoglobin 2.3 H POC ABG HHb (Measured) -0.4 L ABG Methemoglobin 1.7 ABG O2 Capacity 12.3 L Frederic Test Yes A-a O2 Difference 115.0 Hgb O2 Saturation 96.5 Vent Mode A/c Mechanical Rate 12 FiO2 35.0 Tidal Volume 450 PEEP 5 Sodium 132 Potassium 3.5 L Chloride 108 H Carbon Dioxide 14 L Anion Gap 14 BUN 71 H Creatinine 1.1 Est GFR ( Amer) > 60 Est GFR (Non-Af Amer) 51 Random Glucose 132 H Calcium 7.6 L Vancomycin Trough 11/08/18 12:15 WBC RBC Hgb Hct MCV MCH MCHC RDW Plt Count pCO2 pO2 HCO3 ABG pH ABG Total CO2 ABG O2 Saturation ABG O2 Content ABG Base Excess ABG Hemoglobin ABG Carboxyhemoglobin POC ABG HHb (Measured) ABG Methemoglobin ABG O2 Capacity Frederic Test A-a O2 Difference Hgb O2 Saturation Vent Mode Mechanical Rate FiO2 Tidal Volume PEEP Sodium Potassium Chloride Carbon Dioxide Anion Gap BUN Creatinine Est GFR ( Amer) Est GFR (Non-Af Amer) Random Glucose Calcium Vancomycin Trough 27.5 H Radiology Impressions: Radiology Impressions Chest X-Ray 11/04/18 06:00 IMPRESSION: Improved aeration right lower lobe. Stable left lung infiltrates. Stable pleural effusions. Stable position of support apparatus. Chest X-Ray 11/08/18 05:00 IMPRESSION: No interval change perceived. Mixed pathologies as above. Critical Care Progress Note - Nutrition Nutrition: Nutrition Category Date Time Status NPO Diet [DIET] Diets 10/03/18 Breakfast Active <Micah To - Last Filed: 11/08/18 19:33> Assessment/Plan - Assessment and Plan (Free Text) Plan: Attestation: Patient seen and examined at the bedside with Resident Dr. Natasha Avina; and I agree with her outline of plans and management documented above as discussed on AM rounds; reflecting my review of all applicable clinical data, and participation in the care of the patient throughout the day in ICU; today, November 08, 2018.
[2018-11-08] MEDS: Albumin Human 25% (12.5 gm/50 ml) IV SCH ×2 (18:45→22:44)
--- NOTE | 2018-11-09 00:30 | CP.PCM.PN ---
Subjective - Date & Time of Evaluation Date of Evaluation: 11/08/18 Time of Evaluation: 17:15 - Subjective Subjective: Seen and examined at the bed side.Poor Prognosis. Patient continue to bleed on And off. on Supportive care. D/w the mother who refused Comfort Care. Similar Several Attempts were mad by all patients' providers. Objective - Vital Signs/Intake and Output Vital Signs (last 24 hours): Temp Pulse Resp BP Pulse Ox 98.2 F 116 H 16 101/65 99 11/08/18 16:00 11/08/18 19:00 11/08/18 19:00 11/08/18 19:00 11/08/18 19:00 Intake and Output: 11/08/18 11/09/18 18:59 06:59 Intake Total 1526 266 Output Total 1300 Balance 226 266 - Medications Medications: Current Medications Albumin Human (Albumin Human 25% (12.5 Gm/50 Ml)) 25 gm IV Q6 GLADIS Last Admin: 11/08/18 22:44 Dose: 25 gm Famotidine (Pepcid) 20 mg PO BID GLADIS Last Admin: 11/08/18 18:27 Dose: 20 mg Micafungin Sodium 50 mg/ (Sodium Chloride) 100 mls @ 100 mls/hr IVPB DAILY GLADIS; Protocol Last Admin: 11/08/18 08:51 Dose: 100 mls/hr Cefepime HCl 2 gm/ Sodium (Chloride) 100 mls @ 100 mls/hr IVPB Q12 GLADIS; Protocol Last Admin: 11/08/18 20:54 Dose: 100 mls/hr Vancomycin HCl 750 mg/ Sodium (Chloride) 250 mls @ 166.667 mls/hr IVPB DAILY GLADIS; Protocol Last Admin: 11/08/18 15:00 Dose: 166.667 mls/hr - Labs Labs: 11/08/18 05:32 11/08/18 05:32 PT 17.9 Seconds (9.8-13.1) H 11/04/18 06:01 INR 1.6 11/04/18 06:01 APTT 37.2 Seconds (25.6-37.1) H 11/04/18 06:01 Assessment and Plan (1) Anasarca Status: Acute (2) Septic shock Status: Resolved (3) Multiple organ dysfunction syndrome Status: Acute (4) Acute respiratory failure with hypoxemia Status: Acute (5) Thrombocytopenia Status: Resolved (6) Ascites, malignant Status: Acute (7) Congestive heart failure (CHF) Status: Acute (8) Stage IV breast cancer in female Status: Acute (9) Severe anemia Status: Resolved (10) DVT of lower extremity, bilateral Status: Chronic - Assessment and Plan (Free Text) Plan: Continue current care
[2018-11-09] MEDS: Albumin Human 25% (12.5 gm/50 ml) IV SCH ×4 (05:00→22:18)
[2018-11-09 05:19] LABS: ABG ALLEN TEST YES; ARTERIAL BLOOD GAS HCO3 15.5 mmol/L (21-28); ARTERIAL BLOOD GAS HEMOGLOBIN 7.4 g/dL (11.7-17.4); ARTERIAL BLOOD GAS O2 CONTENT 9.9 ML/dL (15-23); ARTERIAL BLOOD GAS O2 SAT 99.1 % (95-98); ARTERIAL BLOOD GAS PCO2 31 mm/Hg (35-45); ARTERIAL BLOOD GAS PH 7.26 (7.35-7.45); ARTERIAL BLOOD GAS PO2 71 mm/Hg (80-100); ARTERIAL BLOOD GAS TCO2 14.9 mmol/L (22-28)
[2018-11-09 06:42] LABS: BASO % 0.1 % (0.0-2.0); LYMPH # 0.3 K/uL (1.0-4.3); MEAN CELL VOLUME 96.4 fl (81.0-99.0); MEAN CORPUSCULAR HEMOGLOBIN 30.3 pg (27.0-31.0); MEAN CORPUSCULAR HGB CONC 31.4 g/dL (33.0-37.0); MEAN PLATELET VOLUME 11.9 fl (7.2-11.7); MONO # 0.6 K/uL (0.0-0.8); MONO % 2.2 % (0.0-10.0); NEUT # 26.5 K/uL (1.8-7.0); NEUT % 96.7 % (50.0-75.0); PLATELET COUNT 55 K/uL (130-400); RED CELL DISTRIBUTION WIDTH 19.9 % (11.5-14.5); WHITE BLOOD COUNT 27.4 K/uL (4.8-10.8)
[2018-11-09] MEDS ORDERED: Potassium Chloride 20 mEq/15 ml LIQ UD NG ONE (07:00)
[2018-11-09 07:03] LABS: ALB/GLOB RATIO 0.9 (1.0-2.1); ALBUMIN 2.4 g/dL (3.5-5.0); ALT/SGPT 25 U/L (9-52); AST/SGOT 18 U/L (14-36); BLOOD UREA NITROGEN 76 mg/dl (7-17); CALCIUM 7.8 mg/dL (8.4-10.2); GFR NON-AFRICAN AMERICAN 51
[2018-11-09] MEDS: Cefepime 2 GM in Sodium Chloride 0.9% 100 ML IVPB SCH ×2 (08:37→22:19)
[2018-11-09 09:11] LABS: BANDS 2 % (0-2); LYMPHOCYTE 2 % (20-50); MONOCYTE 2 % (0-10); NEUTROPHIL 94 % (42-75); TOTAL CELLS COUNTED 100
[2018-11-09 09:17] LABS: ANISOCYTOSIS MODERATE; HYPOCHROMIC SLIGHT; PLATELET ESTIMATE DECREASED (NORMAL)
--- NOTE | 2018-11-09 09:54 | RAD ---
Date of service: 11/09/2018 HISTORY: Intubated COMPARISON: 11/08/2018. FINDINGS: Again seen is tracheostomy tube stable in position. The nasogastric tube is coiled in the stomach. The left central venous line terminates in the right atrium. LUNGS: There are persistent low lung volumes. There is airspace disease in both lower lobes. PLEURA: Again seen are moderate pleural effusions, worse on the left. CARDIOVASCULAR: Persistent cardiomegaly. No aortic atherosclerotic calcifications present. OSSEOUS STRUCTURES: Within normal limits for the patient's age. VISUALIZED UPPER ABDOMEN: Normal. OTHER FINDINGS: None. IMPRESSION: No significant interval change in low lung volumes, moderate pleural effusions, worse on the left and bibasilar airspace disease. Stable position of support line and tubes.
--- NOTE | 2018-11-09 12:01 | CP.CCUPN ---
<Stormy Avina - Last Filed: 11/09/18 14:20> CCU Subjective - Physician Review Subjective (Free Text): No acute overnight events. Patient intubated and sedated. Eyes partially open today. Not following any commands Small emesis this AM, will turn off tube feeds for now and reevaluate H/H reviewed this AM, anemia noted. Transfuse 2 units of PRBC ordered Clinically remains the same, prognosis unchanged. Assessment/Plan: 1. Acute respiratory failure, pneumonia, pleural effusions -intubated/ sedated -ID consulted, on IV abx, vanc continues on hold for now -s/p thoracentesis 10/20 -s/p trach sig sergo, on antifungal 2. Hypotension -likely multifactoral -c/w levofed, start albumin -CHF, Echo EF 15-20%, 3. 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 Anasarca -likely 2/2 to poor nutrition -low protein status -c/w albumin 25% 5. Acute on chronic anemia -likely 2/2 to blood loss and poor bone marrow production -order for transfusion now, 2 units of PRBC ordered -follow up post transfusion h/h 6. Breast CA, Muller[place] Tract CA -chronic, no a candidate for treatment at this time CCU Objective - Vital Signs / Intake & Output Vital Signs (Last 4 hours): Vital Signs Temp Pulse Resp BP Pulse Ox 11/09/18 10:57 97.2 F L 113 H 14 96/47 L 94 L 11/09/18 10:00 97.3 F L 113 H 16 88/46 L 92 L 11/09/18 09:00 97.3 F L 112 H 16 96/57 L 94 L 11/09/18 08:00 97.2 F L 109 H 15 95/57 L 96 Intake and Output (Last 8hrs): Intake & Output 11/08/18 11/09/18 11/09/18 22:59 06:59 14:59 Intake Total 969 642 400 Output Total 1300 1075 Balance -331 -433 400 Weight 73.21 kg Intake: IV 324 62 60 Intake, Piggyback 400 100 200 Tube Feeding 245 280 140 Free Water Flush 200 Output: Drainage 1200 975 Left Lateral Abdomen 600 Right Lower Abdomen 500 875 Right Upper Thigh 100 100 Urine 100 100 Urethral (Orellana) 100 100 - Physical Exam Head: Positive for: Atraumatic, Normocephalic Pupils: Positive for: PERRL Extroacular Muscles: Positive for: EOMI Conjunctiva: Negative for: Injected, Icteric Ears: Positive for: Normal Mouth: Positive for: Dry, Other (poor dentition ) Nose (Internal): Positive for: Normal Inspection Neck: Positive for: Trachea Midline, Other (tracheostomy) Respiratory/Chest: Positive for: Good Air Exchange, Rales, Rhonchi, Other (course breath sounds). Negative for: Accessory Muscle Use, Wheezes, Tachypneic Cardiovascular: Positive for: Regular Rate and Rhythm, Normal S1, S2, Peripheal Pulses Present, Other (port-a-cath noted on L subcal). Negative for: Murmurs, Irregular Rhythm, Tachycardic, Bradycardic Abdomen: Positive for: Normal Bowel Sounds Breast/Axillary: Positive for: Other (fungating necrotic mass to Right Breast) Upper Extremity: Positive for: Edema, Other (multiple contusion noted in chest/upper ext ) Lower Extremity: Positive for: Edema. Negative for: Normal Inspection Neurological: Positive for: Other (on ventilator, spontaneous eye opening) Psychiatric: Negative for: Alert - Medications Active Medications: Active Medications Generic Name Dose Route Start Last Admin Trade Name Freq PRN Reason Stop Dose Admin Albumin Human 25 gm 11/08/18 16:00 11/09/18 09:14 Albumin Human 25% (12.5 Gm/50 Ml) IV 25 gm Q6 GLADIS Administration Famotidine 20 mg 11/08/18 17:00 11/09/18 08:42 Pepcid PO 20 mg BID GLADIS Administration Micafungin Sodium 50 mg/ 100 mls @ 100 mls/hr 10/27/18 09:00 11/09/18 10:02 Sodium Chloride IVPB 100 mls/hr DAILY GLADIS Administration Protocol Cefepime HCl 2 gm/ Sodium 100 mls @ 100 mls/hr 10/30/18 21:00 11/09/18 08:37 Chloride IVPB 100 mls/hr Q12 GLADIS Administration Protocol Vancomycin HCl 750 mg/ Sodium 250 mls @ 166.667 mls/hr 11/06/18 15:15 11/08/18 15:00 Chloride IVPB 166.667 mls/hr DAILY GLADIS Administration Protocol - Patient Studies Lab Studies: Lab Studies 11/09/18 11/09/18 11/09/18 Range/Units 11:00 08:09 07:45 WBC (4.8-10.8) K/uL RBC (3.80-5.20) Mil/uL Hgb (12.0-16.0) g/dL Hct (34.0-47.0) % MCV (81.0-99.0) fl MCH (27.0-31.0) pg MCHC (33.0-37.0) g/dL RDW (11.5-14.5) % Plt Count (130-400) K/uL MPV (7.2-11.7) fl Neut % (Auto) (50.0-75.0) % Lymph % (Auto) (20.0-40.0) % [place] % (Auto) (0.0-10.0) % Eos % (Auto) (0.0-4.0) % Baso % (Auto) (0.0-2.0) % Neut # (Auto) (1.8-7.0) K/uL Lymph # (Auto) (1.0-4.3) K/uL [place] # (Auto) (0.0-0.8) K/uL Eos # (Auto) (0.0-0.7) K/uL Baso # (Auto) (0.0-0.2) K/uL Neutrophils % (Manual) (42-75) % Band Neutrophils % (0-2) % Lymphocytes % (Manual) (20-50) % Monocytes % (Manual) (0-10) % Platelet Estimate (NORMAL) Hypochromasia (manual) Anisocytosis (manual) Macrocytosis (manual) pCO2 (35-45) mm/Hg pO2 (80-100) mm/Hg HCO3 (21-28) mmol/L ABG pH (7.35-7.45) ABG Total CO2 (22-28) mmol/L ABG O2 Saturation (95-98) % ABG O2 Content (15-23) ML/dL ABG Base Excess (-2.0-3.0) mmol/L ABG Hemoglobin (11.7-17.4) g/dL ABG Carboxyhemoglobin (0.5-1.5) % POC ABG HHb (Measured) (0.0-5.0) % ABG Methemoglobin (0.0-3.0) % ABG O2 Capacity (16-24) mL/dL Frederic Test A-a O2 Difference mm/Hg Hgb O2 Saturation (95.0-98.0) % Vent Mode Mechanical Rate FiO2 % Tidal Volume PEEP Sodium (132-148) mmol/l Potassium (3.6-5.0) MMOL/L Chloride (98-107) mmol/L Carbon Dioxide (22-30) mmol/L Anion Gap (10-20) BUN (7-17) mg/dl Creatinine (0.7-1.2) mg/dl Est GFR ( Amer) Est GFR (Non-Af Amer) Random Glucose (65-105) mg/dL Lactic Acid 1.6 (0.7-2.1) mmol/L Calcium (8.4-10.2) mg/dL Total Bilirubin (0.2-1.3) mg/dl AST (14-36) U/L ALT (9-52) U/L Alkaline Phosphatase (38-126) U/L Total Creatine Kinase < 20 L (30-135) U/L Total Protein (6.3-8.2) G/DL Albumin (3.5-5.0) g/dL Globulin (2.2-3.9) gm/dL Albumin/Globulin Ratio (1.0-2.1) Vancomycin Trough (5.0-10.0) ug/mL Blood Type A POSITIVE Antibody Screen Negative Crossmatch See Detail BBK History Checked Patient has bt 11/09/18 11/09/18 11/09/18 Range/Units 05:45 05:45 05:45 WBC 27.4 H (4.8-10.8) K/uL RBC 2.30 L (3.80-5.20) Mil/uL Hgb 7.0 L (12.0-16.0) g/dL Hct 22.2 L (34.0-47.0) % MCV 96.4 (81.0-99.0) fl MCH 30.3 (27.0-31.0) pg MCHC 31.4 L (33.0-37.0) g/dL RDW 19.9 H (11.5-14.5) % Plt Count 55 L (130-400) K/uL MPV 11.9 H (7.2-11.7) fl Neut % (Auto) 96.7 H (50.0-75.0) % Lymph % (Auto) 1.0 L (20.0-40.0) % [place] % (Auto) 2.2 (0.0-10.0) % Eos % (Auto) 0.0 (0.0-4.0) % Baso % (Auto) 0.1 (0.0-2.0) % Neut # (Auto) 26.5 H (1.8-7.0) K/uL Lymph # (Auto) 0.3 L (1.0-4.3) K/uL [place] # (Auto) 0.6 (0.0-0.8) K/uL Eos # (Auto) 0.0 (0.0-0.7) K/uL Baso # (Auto) 0.0 (0.0-0.2) K/uL Neutrophils % (Manual) 94 H (42-75) % Band Neutrophils % 2 (0-2) % Lymphocytes % (Manual) 2 L (20-50) % Monocytes % (Manual) 2 (0-10) % Platelet Estimate Decreased L (NORMAL) Hypochromasia (manual) Slight Anisocytosis (manual) Moderate Macrocytosis (manual) Slight pCO2 (35-45) mm/Hg pO2 (80-100) mm/Hg HCO3 (21-28) mmol/L ABG pH (7.35-7.45) ABG Total CO2 (22-28) mmol/L ABG O2 Saturation (95-98) % ABG O2 Content (15-23) ML/dL ABG Base Excess (-2.0-3.0) mmol/L ABG Hemoglobin (11.7-17.4) g/dL ABG Carboxyhemoglobin (0.5-1.5) % POC ABG HHb (Measured) (0.0-5.0) % ABG Methemoglobin (0.0-3.0) % ABG O2 Capacity (16-24) mL/dL Frederic Test A-a O2 Difference mm/Hg Hgb O2 Saturation (95.0-98.0) % Vent Mode Mechanical Rate FiO2 % Tidal Volume PEEP Sodium 134 (132-148) mmol/l Potassium 3.9 (3.6-5.0) MMOL/L Chloride 106 (98-107) mmol/L Carbon Dioxide 15 L (22-30) mmol/L Anion Gap 17 (10-20) BUN 76 H (7-17) mg/dl Creatinine 1.1 (0.7-1.2) mg/dl Est GFR ( Amer) > 60 Est GFR (Non-Af Amer) 51 Random Glucose 114 H (65-105) mg/dL Lactic Acid (0.7-2.1) mmol/L Calcium 7.8 L (8.4-10.2) mg/dL Total Bilirubin 0.6 (0.2-1.3) mg/dl AST 18 (14-36) U/L ALT 25 (9-52) U/L Alkaline Phosphatase 143 H D (38-126) U/L Total Creatine Kinase (30-135) U/L Total Protein 5.1 L (6.3-8.2) G/DL Albumin 2.4 L D (3.5-5.0) g/dL Globulin 2.7 (2.2-3.9) gm/dL Albumin/Globulin Ratio 0.9 L (1.0-2.1) Vancomycin Trough 34.1 H (5.0-10.0) ug/mL Blood Type Antibody Screen Crossmatch BBK History Checked 11/09/18 11/08/18 Range/Units 04:53 12:15 WBC (4.8-10.8) K/uL RBC (3.80-5.20) Mil/uL Hgb (12.0-16.0) g/dL Hct (34.0-47.0) % MCV (81.0-99.0) fl MCH (27.0-31.0) pg MCHC (33.0-37.0) g/dL RDW (11.5-14.5) % Plt Count (130-400) K/uL MPV (7.2-11.7) fl Neut % (Auto) (50.0-75.0) % Lymph % (Auto) (20.0-40.0) % [place] % (Auto) (0.0-10.0) % Eos % (Auto) (0.0-4.0) % Baso % (Auto) (0.0-2.0) % Neut # (Auto) (1.8-7.0) K/uL Lymph # (Auto) (1.0-4.3) K/uL [place] # (Auto) (0.0-0.8) K/uL Eos # (Auto) (0.0-0.7) K/uL Baso # (Auto) (0.0-0.2) K/uL Neutrophils % (Manual) (42-75) % Band Neutrophils % (0-2) % Lymphocytes % (Manual) (20-50) % Monocytes % (Manual) (0-10) % Platelet Estimate (NORMAL) Hypochromasia (manual) Anisocytosis (manual) Macrocytosis (manual) pCO2 31 L (35-45) mm/Hg pO2 71 L (80-100) mm/Hg HCO3 15.5 L (21-28) mmol/L ABG pH 7.26 L (7.35-7.45) ABG Total CO2 14.9 L (22-28) mmol/L ABG O2 Saturation 99.1 H (95-98) % ABG O2 Content 9.9 L (15-23) ML/dL ABG Base Excess -12.1 L (-2.0-3.0) mmol/L ABG Hemoglobin 7.4 L (11.7-17.4) g/dL ABG Carboxyhemoglobin 2.9 H (0.5-1.5) % POC ABG HHb (Measured) 0.9 (0.0-5.0) % ABG Methemoglobin 2.0 (0.0-3.0) % ABG O2 Capacity 10.0 L (16-24) mL/dL Frederic Test Yes A-a O2 Difference 140.0 mm/Hg Hgb O2 Saturation 94.2 L (95.0-98.0) % Vent Mode A/c Mechanical Rate 12 FiO2 35.0 % Tidal Volume 450 PEEP 5 Sodium (132-148) mmol/l Potassium (3.6-5.0) MMOL/L Chloride (98-107) mmol/L Carbon Dioxide (22-30) mmol/L Anion Gap (10-20) BUN (7-17) mg/dl Creatinine (0.7-1.2) mg/dl Est GFR ( Amer) Est GFR (Non-Af Amer) Random Glucose (65-105) mg/dL Lactic Acid (0.7-2.1) mmol/L Calcium (8.4-10.2) mg/dL Total Bilirubin (0.2-1.3) mg/dl AST (14-36) U/L ALT (9-52) U/L Alkaline Phosphatase (38-126) U/L Total Creatine Kinase (30-135) U/L Total Protein (6.3-8.2) G/DL Albumin (3.5-5.0) g/dL Globulin (2.2-3.9) gm/dL Albumin/Globulin Ratio (1.0-2.1) Vancomycin Trough 27.5 H (5.0-10.0) ug/mL Blood Type Antibody Screen Crossmatch BBK History Checked Laboratory Results - last 24 hr 11/08/18 11/09/18 11/09/18 12:15 04:53 05:45 WBC RBC Hgb Hct MCV MCH MCHC RDW Plt Count MPV Neut % (Auto) Lymph % (Auto) [place] % (Auto) Eos % (Auto) Baso % (Auto) Neut # (Auto) Lymph # (Auto) [place] # (Auto) Eos # (Auto) Baso # (Auto) Neutrophils % (Manual) Band Neutrophils % Lymphocytes % (Manual) Monocytes % (Manual) Platelet Estimate Hypochromasia (manual) Anisocytosis (manual) Macrocytosis (manual) pCO2 31 L pO2 71 L HCO3 15.5 L ABG pH 7.26 L ABG Total CO2 14.9 L ABG O2 Saturation 99.1 H ABG O2 Content 9.9 L ABG Base Excess -12.1 L ABG Hemoglobin 7.4 L ABG Carboxyhemoglobin 2.9 H POC ABG HHb (Measured) 0.9 ABG Methemoglobin 2.0 ABG O2 Capacity 10.0 L Frederic Test Yes A-a O2 Difference 140.0 Hgb O2 Saturation 94.2 L Vent Mode A/c Mechanical Rate 12 FiO2 35.0 Tidal Volume 450 PEEP 5 Sodium Potassium Chloride Carbon Dioxide Anion Gap BUN Creatinine Est GFR ( Amer) Est GFR (Non-Af Amer) Random Glucose Lactic Acid Calcium Total Bilirubin AST ALT Alkaline Phosphatase Total Creatine Kinase Total Protein Albumin Globulin Albumin/Globulin Ratio Vancomycin Trough 27.5 H 34.1 H Blood Type Antibody Screen Crossmatch BBK History Checked 11/09/18 11/09/18 11/09/18 05:45 05:45 07:45 WBC 27.4 H RBC 2.30 L Hgb 7.0 L Hct 22.2 L MCV 96.4 MCH 30.3 MCHC 31.4 L RDW 19.9 H Plt Count 55 L MPV 11.9 H Neut % (Auto) 96.7 H Lymph % (Auto) 1.0 L [place] % (Auto) 2.2 Eos % (Auto) 0.0 Baso % (Auto) 0.1 Neut # (Auto) 26.5 H Lymph # (Auto) 0.3 L [place] # (Auto) 0.6 Eos # (Auto) 0.0 Baso # (Auto) 0.0 Neutrophils % (Manual) 94 H Band Neutrophils % 2 Lymphocytes % (Manual) 2 L Monocytes % (Manual) 2 Platelet Estimate Decreased L Hypochromasia (manual) Slight Anisocytosis (manual) Moderate Macrocytosis (manual) Slight pCO2 pO2 HCO3 ABG pH ABG Total CO2 ABG O2 Saturation ABG O2 Content ABG Base Excess ABG Hemoglobin ABG Carboxyhemoglobin POC ABG HHb (Measured) ABG Methemoglobin ABG O2 Capacity Frederic Test A-a O2 Difference Hgb O2 Saturation Vent Mode Mechanical Rate FiO2 Tidal Volume PEEP Sodium 134 Potassium 3.9 Chloride 106 Carbon Dioxide 15 L Anion Gap 17 BUN 76 H Creatinine 1.1 Est GFR ( Amer) > 60 Est GFR (Non-Af Amer) 51 Random Glucose 114 H Lactic Acid Calcium 7.8 L Total Bilirubin 0.6 AST 18 ALT 25 Alkaline Phosphatase 143 H D Total Creatine Kinase Total Protein 5.1 L Albumin 2.4 L D Globulin 2.7 Albumin/Globulin Ratio 0.9 L Vancomycin Trough Blood Type A POSITIVE Antibody Screen Negative Crossmatch See Detail BBK History Checked Patient has bt 11/09/18 11/09/18 08:09 11:00 WBC RBC Hgb Hct MCV MCH MCHC RDW Plt Count MPV Neut % (Auto) Lymph % (Auto) [place] % (Auto) Eos % (Auto) Baso % (Auto) Neut # (Auto) Lymph # (Auto) [place] # (Auto) Eos # (Auto) Baso # (Auto) Neutrophils % (Manual) Band Neutrophils % Lymphocytes % (Manual) Monocytes % (Manual) Platelet Estimate Hypochromasia (manual) Anisocytosis (manual) Macrocytosis (manual) pCO2 pO2 HCO3 ABG pH ABG Total CO2 ABG O2 Saturation ABG O2 Content ABG Base Excess ABG Hemoglobin ABG Carboxyhemoglobin POC ABG HHb (Measured) ABG Methemoglobin ABG O2 Capacity Frederic Test A-a O2 Difference Hgb O2 Saturation Vent Mode Mechanical Rate FiO2 Tidal Volume PEEP Sodium Potassium Chloride Carbon Dioxide Anion Gap BUN Creatinine Est GFR ( Amer) Est GFR (Non-Af Amer) Random Glucose Lactic Acid 1.6 Calcium Total Bilirubin AST ALT Alkaline Phosphatase Total Creatine Kinase < 20 L Total Protein Albumin Globulin Albumin/Globulin Ratio Vancomycin Trough Blood Type Antibody Screen Crossmatch BBK History Checked Radiology Impressions: Radiology Impressions Chest X-Ray 11/09/18 06:00 IMPRESSION: No significant interval change in low lung volumes, moderate pleural effusions, worse on the left and bibasilar airspace disease. Stable position of support line and tubes. Critical Care Progress Note - Nutrition Nutrition: Nutrition Category Date Time Status NPO Diet [DIET] Diets 10/03/18 Breakfast Active <Micah To - Last Filed: 11/09/18 17:51> Assessment/Plan - Assessment and Plan (Free Text) Plan: Attestation: Patient seen and examined at the bedside with Resident Dr. Natasha Avina; and I agree with her outline of plans and management documented above as discussed on AM rounds; reflecting my review of all applicable clinical data, and participation in the care of the patient throughout the day in ICU; today, November 09, 2018.
[2018-11-09 16:36] LABS: VENOUS BLOOD GAS BASE EXCESS -12.4 mmol/L (0.0-2.0); VENOUS BLOOD GAS PCO2 31 mmHg (40-60); VENOUS BLOOD GAS PO2 48 mm/Hg (30-55); VENOUS BLOOD PH 7.25 (7.32-7.43)
[2018-11-09] MEDS: SODIUM CHLORIDE 0.9% IVPB SCH (17:37)
[2018-11-09] MEDS: GENTAMICIN IVPB SCH (17:37)
--- NOTE | 2018-11-09 21:21 | CP.PCM.PN ---
Subjective - Date & Time of Evaluation Date of Evaluation: 11/08/18 Time of Evaluation: 13:00 - Subjective Subjective: Vented Objective - Vital Signs/Intake and Output Vital Signs (last 24 hours): Temp Pulse Resp BP Pulse Ox 97.9 F 108 H 16 91/55 L 92 L 11/09/18 21:13 11/09/18 21:13 11/09/18 21:13 11/09/18 21:13 11/09/18 18:42 Intake and Output: 11/09/18 11/10/18 18:59 06:59 Intake Total 1730 340 Output Total 950 Balance 780 340 - Medications Medications: Current Medications Albumin Human (Albumin Human 25% (12.5 Gm/50 Ml)) 25 gm IV Q6 GLADIS Last Admin: 11/09/18 15:40 Dose: 25 gm Famotidine (Pepcid) 20 mg PO BID GLADIS Last Admin: 11/09/18 17:25 Dose: 20 mg Micafungin Sodium 50 mg/ (Sodium Chloride) 100 mls @ 100 mls/hr IVPB DAILY GLADIS; Protocol Last Admin: 11/09/18 10:02 Dose: 100 mls/hr Cefepime HCl 2 gm/ Sodium (Chloride) 100 mls @ 100 mls/hr IVPB Q12 GLADIS; Pro tocol Last Admin: 11/09/18 08:37 Dose: 100 mls/hr Vancomycin HCl 750 mg/ Sodium (Chloride) 250 mls @ 166.667 mls/hr IVPB DAILY GLADIS; Protocol Last Admin: 11/08/18 15:00 Dose: 166.667 mls/hr Norepinephrine Bitartrate 16 (mg/ Dextrose) 266 mls @ 14.06 mls/hr IV .[id number] ONE Stop: 11/10/18 07:02 Last Admin: 11/09/18 15:40 Dose: 14.06 mls/hr Gentamicin Sulfate 75 mg/ (Sodium Chloride) 51.875 mls @ 51.489 mls/hr IVPB Q8H GLADIS; Protocol Last Admin: 11/09/18 17:37 Dose: 51.489 mls/hr Rifampin (Rifampin Cap) 300 mg PO Q8 GLADIS; Protocol Last Admin: 11/09/18 17:36 Dose: 300 mg - Labs Labs: 11/09/18 05:45 11/09/18 05:45 PT 17.9 Seconds (9.8-13.1) H 11/04/18 06:01 INR 1.6 11/04/18 06:01 APTT 37.2 Seconds (25.6-37.1) H 11/04/18 06:01 - Head Exam Head Exam: ATRAUMATIC - Eye Exam Eye Exam: Normal appearance - ENT Exam ENT Exam: Mucous Membranes Dry - Respiratory Exam Respiratory Exam: Decreased Breath Sounds - Cardiovascular Exam Cardiovascular Exam: +S1, +S2 - GI/Abdominal Exam GI & Abdominal Exam: Normal Bowel Sounds - Extremities Exam Extremities Exam: Pedal Edema Assessment and Plan (1) DIC (disseminated intravascular coagulation) Assessment & Plan: low fibrinogen sepsis related, on abx Status: Acute (2) Thrombocytopenia Assessment & Plan: secondary to DIC and sepsis Status: Resolved (3) Anemia Assessment & Plan: anemia of chronic disease SYSTEM MANAGER blood loss transfusion support PRN Status: Acute (4) Pulmonary embolism Assessment & Plan: not an anticoagulation candidate due to bleeding Status: Acute (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
--- NOTE | 2018-11-09 21:23 | CP.PCM.PN ---
Subjective - Date & Time of Evaluation Date of Evaluation: 11/09/18 Time of Evaluation: 12:00 - Subjective Subjective: Vented Objective - Vital Signs/Intake and Output Vital Signs (last 24 hours): Temp Pulse Resp BP Pulse Ox 97.9 F 108 H 16 91/55 L 92 L 11/09/18 21:13 11/09/18 21:13 11/09/18 21:13 11/09/18 21:13 11/09/18 18:42 Intake and Output: 11/09/18 11/10/18 18:59 06:59 Intake Total 1730 340 Output Total 950 Balance 780 340 - Medications Medications: Current Medications Albumin Human (Albumin Human 25% (12.5 Gm/50 Ml)) 25 gm IV Q6 GLADIS Last Admin: 11/09/18 15:40 Dose: 25 gm Famotidine (Pepcid) 20 mg PO BID GLADIS Last Admin: 11/09/18 17:25 Dose: 20 mg Micafungin Sodium 50 mg/ (Sodium Chloride) 100 mls @ 100 mls/hr IVPB DAILY GLADIS; Protocol Last Admin: 11/09/18 10:02 Dose: 100 mls/hr Cefepime HCl 2 gm/ Sodium (Chloride) 100 mls @ 100 mls/hr IVPB Q12 GLADIS; Pro tocol Last Admin: 11/09/18 08:37 Dose: 100 mls/hr Vancomycin HCl 750 mg/ Sodium (Chloride) 250 mls @ 166.667 mls/hr IVPB DAILY GLADIS; Protocol Last Admin: 11/08/18 15:00 Dose: 166.667 mls/hr Norepinephrine Bitartrate 16 (mg/ Dextrose) 266 mls @ 14.06 mls/hr IV .[id number] ONE Stop: 11/10/18 07:02 Last Admin: 11/09/18 15:40 Dose: 14.06 mls/hr Gentamicin Sulfate 75 mg/ (Sodium Chloride) 51.875 mls @ 51.489 mls/hr IVPB Q8H GLADIS; Protocol Last Admin: 11/09/18 17:37 Dose: 51.489 mls/hr Rifampin (Rifampin Cap) 300 mg PO Q8 GLADIS; Protocol Last Admin: 11/09/18 17:36 Dose: 300 mg - Labs Labs: 11/09/18 05:45 11/09/18 05:45 PT 17.9 Seconds (9.8-13.1) H 11/04/18 06:01 INR 1.6 11/04/18 06:01 APTT 37.2 Seconds (25.6-37.1) H 11/04/18 06:01 - Head Exam Head Exam: ATRAUMATIC - Eye Exam Eye Exam: Normal appearance - ENT Exam ENT Exam: Mucous Membranes Dry - Respiratory Exam Respiratory Exam: Decreased Breath Sounds - Cardiovascular Exam Cardiovascular Exam: +S1, +S2 - GI/Abdominal Exam GI & Abdominal Exam: Normal Bowel Sounds - Extremities Exam Extremities Exam: Pedal Edema Assessment and Plan (1) DIC (disseminated intravascular coagulation) Assessment & Plan: low fibrinogen sepsis related, on abx Status: Acute (2) Thrombocytopenia Assessment & Plan: secondary to DIC and sepsis Status: Resolved (3) Anemia Assessment & Plan: anemia of chronic disease STRING [employer] blood loss transfusion support PRN Status: Acute (4) Pulmonary embolism Assessment & Plan: not an anticoagulation candidate due to bleeding Status: Acute (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
--- NOTE | 2018-11-09 23:19 | CP.PCM.PN ---
Subjective - Date & Time of Evaluation Date of Evaluation: 11/09/18 Time of Evaluation: 19:20 - Subjective Subjective: Seen and examined at the bed side.Poor Prognosis. Patient continue to bleed on And off. on Supportive care. D/w the mother who refused Comfort Care. Similar Several Attempts were mad by all patients' providers. Objective - Vital Signs/Intake and Output Vital Signs (last 24 hours): Temp Pulse Resp BP Pulse Ox 97.9 F 108 H 16 91/55 L 92 L 11/09/18 21:13 11/09/18 21:13 11/09/18 21:13 11/09/18 21:13 11/09/18 18:42 Intake and Output: 11/09/18 11/10/18 18:59 06:59 Intake Total 1730 340 Output Total 950 Balance 780 340 - Medications Medications: Current Medications Albumin Human (Albumin Human 25% (12.5 Gm/50 Ml)) 25 gm IV Q6 GLADIS Last Admin: 11/09/18 22:18 Dose: 25 gm Famotidine (Pepcid) 20 mg PO BID GLADIS Last Admin: 11/09/18 17:25 Dose: 20 mg Micafungin Sodium 50 mg/ (Sodium Chloride) 100 mls @ 100 mls/hr IVPB DAILY GLADIS; Protocol Last Admin: 11/09/18 10:02 Dose: 100 mls/hr Cefepime HCl 2 gm/ Sodium (Chloride) 100 mls @ 100 mls/hr IVPB Q12 GLADIS; Protocol Last Admin: 11/09/18 22:19 Dose: 100 mls/hr Vancomycin HCl 750 mg/ Sodium (Chloride) 250 mls @ 166.667 mls/hr IVPB DAILY GLADIS; Protocol Last Admin: 11/08/18 15:00 Dose: 166.667 mls/hr Norepinephrine Bitartrate 16 (mg/ Dextrose) 266 mls @ 14.06 mls/hr IV .[id number] ONE Stop: 11/10/18 07:02 Last Admin: 11/09/18 15:40 Dose: 14.06 mls/hr Gentamicin Sulfate 75 mg/ (Sodium Chloride) 51.875 mls @ 51.489 mls/hr IVPB Q8H GLADIS; Protocol Last Admin: 11/09/18 17:37 Dose: 51.489 mls/hr Rifampin (Rifampin Cap) 300 mg PO Q8 GLADIS; Protocol Last Admin: 11/09/18 17:36 Dose: 300 mg - Labs Labs: 11/09/18 05:45 11/09/18 05:45 PT 17.9 Seconds (9.8-13.1) H 11/04/18 06:01 INR 1.6 11/04/18 06:01 APTT 37.2 Seconds (25.6-37.1) H 11/04/18 06:01 Assessment and Plan (1) Anasarca Status: Acute (2) Septic shock Status: Resolved (3) Multiple organ dysfunction syndrome Status: Acute (4) Acute respiratory failure with hypoxemia Status: Acute (5) Thrombocytopenia Status: Resolved (6) Ascites, malignant Status: Acute (7) Congestive heart failure (CHF) Status: Acute (8) Stage IV breast cancer in female Status: Acute (9) Severe anemia Status: Resolved (10) DVT of lower extremity, bilateral Status: Chronic - Assessment and Plan (Free Text) Plan: Continue current care
[2018-11-10] MEDS: GENTAMICIN IVPB SCH ×2 (00:42→09:49)
[2018-11-10] MEDS: SODIUM CHLORIDE 0.9% IVPB SCH ×2 (00:42→09:49)
[2018-11-10 05:00] LABS: ABG ALLEN TEST YES; ARTERIAL BLOOD GAS HCO3 14.2 mmol/L (21-28); ARTERIAL BLOOD GAS O2 CAPACITY 13.5 mL/dL (16-24); ARTERIAL BLOOD GAS O2 CONTENT 12.8 ML/dL (15-23); ARTERIAL BLOOD GAS O2 SAT 94.8 % (95-98); ARTERIAL BLOOD GAS PCO2 27 mm/Hg (35-45); ARTERIAL BLOOD GAS PH 7.26 (7.35-7.45); ARTERIAL BLOOD GAS PO2 62 mm/Hg (80-100); ARTERIAL BLOOD GAS TCO2 12.9 mmol/L (22-28)
[2018-11-10] MEDS: Albumin Human 25% (12.5 gm/50 ml) IV SCH ×2 (05:32→13:26)
[2018-11-10 05:56] LABS: BASO # 0.1 K/uL (0.0-0.2); BASO % 0.4 % (0.0-2.0); HEMOGLOBIN 9.4 g/dL (12.0-16.0); LYMPH # 0.2 K/uL (1.0-4.3); LYMPH % 0.8 % (20.0-40.0); MEAN CELL VOLUME 94.8 fl (81.0-99.0); MEAN CORPUSCULAR HEMOGLOBIN 30.5 pg (27.0-31.0); MEAN CORPUSCULAR HGB CONC 32.2 g/dL (33.0-37.0); MEAN PLATELET VOLUME 12.1 fl (7.2-11.7); MONO # 0.4 K/uL (0.0-0.8); MONO % 1.5 % (0.0-10.0); NEUT # 27.4 K/uL (1.8-7.0); NEUT % 97.3 % (50.0-75.0); RBC 3.1 Mil/uL (3.80-5.20); WHITE BLOOD COUNT 28.2 K/uL (4.8-10.8)
[2018-11-10 06:19] LABS: ALB/GLOB RATIO 1.2 (1.0-2.1); ALBUMIN 2.8 g/dL (3.5-5.0); CALCIUM 7.6 mg/dL (8.4-10.2)
--- NOTE | 2018-11-10 08:40 | CP.PCM.PN ---
Subjective - Date & Time of Evaluation Date of Evaluation: 11/10/18 Time of Evaluation: 08:40 - Subjective Subjective: Surgery Progress Note- Dr. Hernandez Intubated, sedated, on pressors. Surgery was called to re-evaluate patient due to bacteremia. Patient remains critically ill, on levophed. At this time benefits do not out weigh the risks for patient to undergo surgery for line removal. Objective - Vital Signs/Intake and Output Vital Signs (last 24 hours): Temp Pulse Resp BP Pulse Ox 98.1 F 117 H 16 91/48 L 96 11/10/18 08:00 11/10/18 08:00 11/10/18 08:00 11/10/18 08:00 11/10/18 08:00 Intake and Output: 11/10/18 11/10/18 06:59 18:59 Intake Total 652 Output Total 1000 Balance -348 - Medications Medications: Current Medications Albumin Human (Albumin Human 25% (12.5 Gm/50 Ml)) 25 gm IV Q6 GLADIS Last Admin: 11/10/18 05:32 Dose: 25 gm Famotidine (Pepcid) 20 mg PO BID GLADIS Last Admin: 11/09/18 17:25 Dose: 20 mg Micafungin Sodium 50 mg/ (Sodium Chloride) 100 mls @ 100 mls/hr IVPB DAILY GLADIS; Protocol Last Admin: 11/09/18 10:02 Dose: 100 mls/hr Cefepime HCl 2 gm/ Sodium (Chloride) 100 mls @ 100 mls/hr IVPB Q12 GLADIS; Protocol Last Admin: 11/09/18 22:19 Dose: 100 mls/hr Vancomycin HCl 750 mg/ Sodium (Chloride) 250 mls @ 166.667 mls/hr IVPB DAILY GLADIS; Protocol Last Admin: 11/08/18 15:00 Dose: 166.667 mls/hr Gentamicin Sulfate 75 mg/ (Sodium Chloride) 51.875 mls @ 51.489 mls/hr IVPB Q8H GLADIS; Protocol Last Admin: 11/10/18 00:42 Dose: 51.489 mls/hr Rifampin (Rifampin Cap) 300 mg PO Q8 GLADIS; Protocol Last Admin: 11/10/18 00:49 Dose: 300 mg - Labs Labs: 11/10/18 05:46 04/19/19 05:46 PT 17.9 Seconds (9.8-13.1) H 11/04/18 06:01 INR 1.6 11/04/18 06:01 APTT 37.2 Seconds (25.6-37.1) H 11/04/18 06:01 - Constitutional Appears: Older Than Stated Age, Chronically Ill - Eye Exam Eye Exam: absent: EOMI - Respiratory Exam Additional comments: Trach ventilated - Cardiovascular Exam Cardiovascular Exam: Tachycardia, REGULAR RHYTHM. absent: Bradycardia - GI/Abdominal Exam GI & Abdominal Exam: Soft. absent: Rigid, Tenderness - Neurological Exam Neurological Exam: absent: Alert, Awake - Skin Skin Exam: Warm Assessment and Plan - Assessment and Plan (Free Text) Assessment: 58F w/ hx of breast CA, recently dx w/ bacteremia and vegetations seen on ECHO Plan: - patient continues to remain critically ill - Currently benefits do not out weigh risks for surgery for port removal - continue supportive care - discussed w/ Dr. Hernandez Surgical Attending PGY2
--- NOTE | 2018-11-10 08:41 | CP.CCUPN ---
<Stormy Avina - Last Filed: 11/10/18 13:21> CCU Subjective - Physician Review Subjective (Free Text): No acute overnight events. Patient intubated and sedated. Eyes partially open, no tracking or eye blinking. Not following any commands Continues to require Norepi for pressure support. Tachycardia noted, and requiring higher FiO2 Given the hx, PE is questionable, but due to active bleeding per not on any anticoagulation at this time S/p 2 units of PRBC yesterday. H/H stable post transfusion. Old chart reviewed, notible for worsening echo findings from 07/2018 to 10/2018. EF is currently 15% Given findings, will add Dobutamine to the Norepi and titrate Norepi as tolerated. Clinically remains the same, poor prognosis, unchanged. D39 of Mechanical intubation Assessment/Plan: 1. Acute respiratory failure, pneumonia, pleural effusions -intubated-Trach/ sedated -ID consulted, on IV abx, vanc continues on hold for now -s/p thoracentesis 10/20 -s/p trach sig sergo, on antifungal 2. 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 Anasarca, ascites -likely 2/2 to poor nutrition -s/p paracentesis -low protein status -c/w albumin 25% 5. Acute on chronic anemia -likely 2/2 to blood loss, chronic disease, poor bone marrow production -s/p 2 units of PRBC, h/h currently stable -will likely require weekly transfusions 6. Stage IV metastatic [place] -hem/onc on board; not a chemotherapy candidate 7. hx of DVT -US 10/26/18 sig for chronic DVT of R and L common femoral, proximal superficial veins -on eliquis previously, no anticoagulation give acute bleeding -consider IVC filter -SCDs on 8. Diet -currently on tube feeds -consider PEG CCU Objective - Vital Signs / Intake & Output Vital Signs (Last 4 hours): Vital Signs Temp Pulse Resp BP Pulse Ox 11/10/18 08:00 98.1 F 117 H 16 91/48 L 96 11/10/18 06:00 115 H 17 92/53 L 97 11/10/18 05:00 110 H 15 90/55 L 91 L Intake and Output (Last 8hrs): Intake & Output 11/09/18 11/10/18 11/10/18 22:59 06:59 14:59 Intake Total 1063 284 Output Total 950 1000 Balance 113 -716 Weight 70.125 kg Intake: IV 98 84 Intake, Piggyback 200 200 Blood Product 600 Red Blood Cells Cpd As1 325 Lr Unit [id number] Red Blood Cells Cpd As1 275 Lr Unit [id number] Free Water Flush 100 Other 65 Red Blood Cells Cpd As1 65 Lr Unit [id number] Output: Drainage 900 1000 Right Lower Abdomen 800 850 Right Upper Thigh 100 150 Urine 50 Urethral (Orellana) 50 Other: # Bowel Movements 1 - Physical Exam Head: Positive for: Atraumatic, Normocephalic Pupils: Positive for: PERRL Extroacular Muscles: Positive for: EOMI Conjunctiva: Negative for: Injected, Icteric Ears: Positive for: Normal Mouth: Positive for: Dry, Other (poor dentition ) Nose (Internal): Positive for: Normal Inspection Neck: Positive for: Trachea Midline, Other (tracheostomy, skin breakdown noted) Respiratory/Chest: Positive for: Good Air Exchange, Rales, Rhonchi, Other (course breath sounds). Negative for: Accessory Muscle Use, Wheezes, Tachypneic Cardiovascular: Positive for: Regular Rate and Rhythm, Normal S1, S2, Peripheal Pulses Present, Other (port-a-cath noted on L subcal). Negative for: Murmurs, Irregular Rhythm, Tachycardic, Bradycardic Abdomen: Positive for: Normal Bowel Sounds Breast/Axillary: Positive for: Other (fungating necrotic mass to Right Breast) Upper Extremity: Positive for: Edema, Other (multiple contusion noted in chest/upper ext ) Lower Extremity: Positive for: Edema. Negative for: Normal Inspection Neurological: Positive for: Other (on ventilator, eyes partially open, not tracking ) Skin: Positive for: Warm, Abrasion (multiple areas of skin breakdown noted) Psychiatric: Negative for: Alert - Medications Active Medications: Active Medications Generic Name Dose Route Start Last Admin Trade Name Freq PRN Reason Stop Dose Admin Albumin Human 25 gm 11/08/18 16:00 11/10/18 05:32 Albumin Human 25% (12.5 Gm/50 Ml) IV 25 gm Q6 GLADIS Administration Famotidine 20 mg 11/08/18 17:00 11/09/18 17:25 Pepcid PO 20 mg BID GLADIS Administration Micafungin Sodium 50 mg/ 100 mls @ 100 mls/hr 10/27/18 09:00 11/09/18 10:02 Sodium Chloride IVPB 100 mls/hr DAILY GLADIS Administration Protocol Cefepime HCl 2 gm/ Sodium 100 mls @ 100 mls/hr 10/30/18 21:00 11/09/18 22:19 Chloride IVPB 100 mls/hr Q12 GLADIS Administration Protocol Vancomycin HCl 750 mg/ Sodium 250 mls @ 166.667 mls/hr 11/06/18 15:15 11/08 15:00 Chloride IVPB 166.667 mls/hr DAILY GLADIS Administration Protocol Gentamicin Sulfate 75 mg/ 51.875 mls @ 51.489 mls/hr 11/09/18 17:00 11/10/18 00:42 Sodium Chloride IVPB 51.489 mls/hr Q8H GLADIS Administration Protocol Rifampin 300 mg 11/09/18 17:00 11/10/18 00:49 Rifampin Cap PO 300 mg Q8 GLADIS Administration Protocol - Patient Studies Lab Studies: Microbiology Studies 10/21/18 08:00 Urine Culture - Final Urine,Catheterized Catrachito Krusei 11/08/18 12:10 Blood Culture - Preliminary Blood-Thru Central Line NO GROWTH AFTER 24 HOURS Lab Studies 11/10/18 11/10/18 11/10/18 Range/Units 05:46 05:46 05:46 WBC (4.8-10.8) K/uL RBC (3.80-5.20) Mil/uL Hgb (12.0-16.0) g/dL Hct (34.0-47.0) % MCV (81.0-99.0) fl MCH (27.0-31.0) pg MCHC (33.0-37.0) g/dL RDW (11.5-14.5) % Plt Count (130-400) K/uL MPV (7.2-11.7) fl Neut % (Auto) (50.0-75.0) % Lymph % (Auto) (20.0-40.0) % Bureau % (Auto) (0.0-10.0) % Eos % (Auto) (0.0-4.0) % Baso % (Auto) (0.0-2.0) % Neut # (Auto) (1.8-7.0) K/uL Lymph # (Auto) (1.0-4.3) K/uL Bureau # (Auto) (0.0-0.8) K/uL Eos # (Auto) (0.0-0.7) K/uL Baso # (Auto) (0.0-0.2) K/uL Total Counted Neutrophils % (Manual) (42-75) % Band Neutrophils % (0-2) % Lymphocytes % (Manual) (20-50) % Reactive Lymphs % Monocytes % (Manual) (0-10) % Eosinophils % (Manual) Basophils % (Manual) Metamyelocytes % Myelocytes % Promyelocytes % Blast Cells % Plasma Cell % (Manual) Nucleated RBC % Hypersegmented Polys Smudge Cells Toxic Granulation Dohle Bodies Devorah Rods Platelet Estimate (NORMAL) Plt Clumps, EDTA Large Platelets Giant Platelets RBC Morphology Polychromasia Hypochromasia (manual) Poikilocytosis (manual Basophilic Stippling Anisocytosis (manual) Microcytosis (manual) Macrocytosis (manual) Spherocytes Sickle Cells Target Cells Tear Drop Cells Ovalocytes Stomatocytes Helmet Cells [place] Bodies Naina Cells Acanthocytes (Spur) Rouleaux Schistocytes Fibrinogen 145 L (200-400) mg/dl pCO2 (35-45) mm/Hg pO2 (30-55) mm/Hg HCO3 (21-28) mmol/L ABG pH (7.35-7.45) ABG Total CO2 (22-28) mmol/L ABG O2 Saturation (95-98) % ABG O2 Content (15-23) ML/dL ABG Base Excess (-2.0-3.0) mmol/L ABG Hemoglobin (11.7-17.4) g/dL ABG Carboxyhemoglobin (0.5-1.5) % POC ABG HHb (Measured) (0.0-5.0) % ABG Methemoglobin (0.0-3.0) % ABG O2 Capacity (16-24) mL/dL Frederic Test VBG pH (7.32-7.43) VBG pCO2 (40-60) mmHg VBG HCO3 mmol/L VBG Total CO2 (22-28) mmol/L VBG O2 Sat (Calc) (40-65) % VBG Base Excess (0.0-2.0) mmol/L VBG Potassium (3.6-5.2) mmol/L A-a O2 Difference mm/Hg Hgb O2 Saturation (95.0-98.0) % Sodium 135 (132-148) mmol/L Chloride 107 (98-107) mmol/L Glucose (65-105) mg/dL Lactate (0.7-2.1) mmol/L Vent Mode Mechanical Rate FiO2 % Tidal Volume PEEP Potassium 3.8 (3.6-5.0) MMOL/L Carbon Dioxide 13 L (22-30) mmol/L Anion Gap 19 (10-20) BUN 79 H (7-17) mg/dl Creatinine 1.2 (0.7-1.2) mg/dl Est GFR ( Amer) 55 Est GFR (Non-Af Amer) 46 Random Glucose 98 (65-105) mg/dL Calcium 7.6 L (8.4-10.2) mg/dL Total Bilirubin 1.3 (0.2-1.3) mg/dl AST 22 (14-36) U/L ALT 27 (9-52) U/L Alkaline Phosphatase 103 (38-126) U/L Total Creatine Kinase (30-135) U/L Total Protein 5.2 L (6.3-8.2) G/DL Albumin 2.8 L (3.5-5.0) g/dL Globulin 2.3 (2.2-3.9) gm/dL Albumin/Globulin Ratio 1.2 (1.0-2.1) Procalcitonin (0.19-0.49) NG/ML Venous Blood Potassium (3.6-5.2) mmol/L Vancomycin Trough 28.7 H (5.0-10.0) ug/mL Blood Type Antibody Screen Crossmatch BBK History Checked 11/10/18 11/10/18 11/09/18 Range/Units 05:46 04:49 17:44 WBC 28.2 H (4.8-10.8) K/uL RBC 3.10 L (3.80-5.20) Mil/uL Hgb 9.4 L D (12.0-16.0) g/dL Hct 29.4 L (34.0-47.0) % MCV 94.8 (81.0-99.0) fl MCH 30.5 (27.0-31.0) pg MCHC 32.2 L (33.0-37.0) g/dL RDW 17.0 H (11.5-14.5) % Plt Count 39 L (130-400) K/uL MPV 12.1 H (7.2-11.7) fl Neut % (Auto) 97.3 H (50.0-75.0) % Lymph % (Auto) 0.8 L (20.0-40.0) % Bureau % (Auto) 1.5 (0.0-10.0) % Eos % (Auto) 0.0 (0.0-4.0) % Baso % (Auto) 0.4 (0.0-2.0) % Neut # (Auto) 27.4 H (1.8-7.0) K/uL Lymph # (Auto) 0.2 L (1.0-4.3) K/uL Bureau # (Auto) 0.4 (0.0-0.8) K/uL Eos # (Auto) 0.0 (0.0-0.7) K/uL Baso # (Auto) 0.1 (0.0-0.2) K/uL Total Counted Cancelled Neutrophils % (Manual) Cancelled (42-75) % Band Neutrophils % Cancelled (0-2) % Lymphocytes % (Manual) Cancelled (20-50) % Reactive Lymphs % Cancelled Monocytes % (Manual) Cancelled (0-10) % Eosinophils % (Manual) Cancelled Basophils % (Manual) Cancelled Metamyelocytes % Cancelled Myelocytes % Cancelled Promyelocytes % Cancelled Blast Cells % Cancelled Plasma Cell % (Manual) Cancelled Nucleated RBC % Cancelled Hypersegmented Polys Cancelled Smudge Cells Cancelled Toxic Granulation Cancelled Dohle Bodies Cancelled Devorah Rods Cancelled Platelet Estimate Cancelled (NORMAL) Plt Clumps, EDTA Cancelled Large Platelets Cancelled Giant Platelets Cancelled RBC Morphology Cancelled Polychromasia Cancelled Hypochromasia (manual) Cancelled Poikilocytosis (manual Cancelled Basophilic Stippling Cancelled Anisocytosis (manual) Cancelled Microcytosis (manual) Cancelled Macrocytosis (manual) Cancelled Spherocytes Cancelled Sickle Cells Cancelled Target Cells Cancelled Tear Drop Cells Cancelled Ovalocytes Cancelled Stomatocytes Cancelled Helmet Cells Cancelled [place] Bodies Cancelled Carlton Cells Cancelled Acanthocytes (Spur) Cancelled Rouleaux Cancelled Schistocytes Cancelled Fibrinogen (200-400) mg/dl pCO2 27 L (35-45) mm/Hg pO2 62 L (30-55) mm/Hg HCO3 14.2 L (21-28) mmol/L ABG pH 7.26 L (7.35-7.45) ABG Total CO2 12.9 L (22-28) mmol/L ABG O2 Saturation 94.8 L (95-98) % ABG O2 Content 12.8 L (15-23) ML/dL ABG Base Excess -13.6 L (-2.0-3.0) mmol/L ABG Hemoglobin 10.0 L (11.7-17.4) g/dL ABG Carboxyhemoglobin 2.7 H (0.5-1.5) % POC ABG HHb (Measured) 5.0 (0.0-5.0) % ABG Methemoglobin 1.9 (0.0-3.0) % ABG O2 Capacity 13.5 L (16-24) mL/dL Frederic Test Yes VBG pH (7.32-7.43) VBG pCO2 (40-60) mmHg VBG HCO3 mmol/L VBG Total CO2 (22-28) mmol/L VBG O2 Sat (Calc) (40-65) % VBG Base Excess (0.0-2.0) mmol/L VBG Potassium (3.6-5.2) mmol/L A-a O2 Difference 154.0 mm/Hg Hgb O2 Saturation 90.5 L (95.0-98.0) % Sodium (132-148) mmol/L Chloride (98-107) mmol/L Glucose (65-105) mg/dL Lactate (0.7-2.1) mmol/L Vent Mode A/c Mechanical Rate 12 FiO2 35.0 % Tidal Volume 450 PEEP 5 Potassium (3.6-5.0) MMOL/L Carbon Dioxide (22-30) mmol/L Anion Gap (10-20) BUN (7-17) mg/dl Creatinine (0.7-1.2) mg/dl Est GFR ( Amer) Est GFR (Non-Af Amer) Random Glucose (65-105) mg/dL Calcium (8.4-10.2) mg/dL Total Bilirubin (0.2-1.3) mg/dl AST (14-36) U/L ALT (9-52) U/L Alkaline Phosphatase (38-126) U/L Total Creatine Kinase (30-135) U/L Total Protein (6.3-8.2) G/DL Albumin (3.5-5.0) g/dL Globulin (2.2-3.9) gm/dL Albumin/Globulin Ratio (1.0-2.1) Procalcitonin 2.33 H (0.19-0.49) NG/ML Venous Blood Potassium (3.6-5.2) mmol/L Vancomycin Trough (5.0-10.0) ug/mL Blood Type Antibody Screen Crossmatch BBK History Checked 11/09/18 11/09/18 11/09/18 Range/Units 16:30 11:00 07:45 WBC (4.8-10.8) K/uL RBC (3.80-5.20) Mil/uL Hgb (12.0-16.0) g/dL Hct (34.0-47.0) % MCV (81.0-99.0) fl MCH (27.0-31.0) pg MCHC (33.0-37.0) g/dL RDW (11.5-14.5) % Plt Count (130-400) K/uL MPV (7.2-11.7) fl Neut % (Auto) (50.0-75.0) % Lymph % (Auto) (20.0-40.0) % Bureau % (Auto) (0.0-10.0) % Eos % (Auto) (0.0-4.0) % Baso % (Auto) (0.0-2.0) % Neut # (Auto) (1.8-7.0) K/uL Lymph # (Auto) (1.0-4.3) K/uL Bureau # (Auto) (0.0-0.8) K/uL Eos # (Auto) (0.0-0.7) K/uL Baso # (Auto) (0.0-0.2) K/uL Total Counted Neutrophils % (Manual) (42-75) % Band Neutrophils % (0-2) % Lymphocytes % (Manual) (20-50) % Reactive Lymphs % Monocytes % (Manual) (0-10) % Eosinophils % (Manual) Basophils % (Manual) Metamyelocytes % Myelocytes % Promyelocytes % Blast Cells % Plasma Cell % (Manual) Nucleated RBC % Hypersegmented Polys Smudge Cells Toxic Granulation Dohle Bodies Devorah Rods Platelet Estimate (NORMAL) Plt Clumps, EDTA Large Platelets Giant Platelets RBC Morphology Polychromasia Hypochromasia (manual) Poikilocytosis (manual Basophilic Stippling Anisocytosis (manual) Microcytosis (manual) Macrocytosis (manual) Spherocytes Sickle Cells Target Cells Tear Drop Cells Ovalocytes Stomatocytes Helmet Cells [place] Bodies [place]ton Cells Acanthocytes (Spur) Rouleaux Schistocytes Fibrinogen (200-400) mg/dl pCO2 (35-45) mm/Hg pO2 48 (30-55) mm/Hg HCO3 (21-28) mmol/L ABG pH (7.35-7.45) ABG Total CO2 (22-28) mmol/L ABG O2 Saturation (95-98) % ABG O2 Content (15-23) ML/dL ABG Base Excess (-2.0-3.0) mmol/L ABG Hemoglobin (11.7-17.4) g/dL ABG Carboxyhemoglobin (0.5-1.5) % POC ABG HHb (Measured) (0.0-5.0) % ABG Methemoglobin (0.0-3.0) % ABG O2 Capacity (16-24) mL/dL Frederic Test VBG pH 7.25 L (7.32-7.43) VBG pCO2 31 L (40-60) mmHg VBG HCO3 14.7 mmol/L VBG Total CO2 14.6 L (22-28) mmol/L VBG O2 Sat (Calc) 87.1 H (40-65) % VBG Base Excess -12.4 L (0.0-2.0) mmol/L VBG Potassium 3.8 (3.6-5.2) mmol/L A-a O2 Difference mm/Hg Hgb O2 Saturation (95.0-98.0) % Sodium 130.0 L (132-148) mmol/L Chloride 105.0 (98-107) mmol/L Glucose 109 H (65-105) mg/dL Lactate 1.3 (0.7-2.1) mmol/L Vent Mode Mechanical Rate FiO2 35.0 % Tidal Volume PEEP Potassium (3.6-5.0) MMOL/L Carbon Dioxide (22-30) mmol/L Anion Gap (10-20) BUN (7-17) mg/dl Creatinine (0.7-1.2) mg/dl Est GFR ( Amer) Est GFR (Non-Af Amer) Random Glucose (65-105) mg/dL Calcium (8.4-10.2) mg/dL Total Bilirubin (0.2-1.3) mg/dl AST (14-36) U/L ALT (9-52) U/L Alkaline Phosphatase (38-126) U/L Total Creatine Kinase < 20 L (30-135) U/L Total Protein (6.3-8.2) G/DL Albumin (3.5-5.0) g/dL Globulin (2.2-3.9) gm/dL Albumin/Globulin Ratio (1.0-2.1) Procalcitonin (0.19-0.49) NG/ML Venous Blood Potassium 3.8 (3.6-5.2) mmol/L Vancomycin Trough (5.0-10.0) ug/mL Blood Type A POSITIVE Antibody Screen Negative Crossmatch See Detail BBK History Checked Patient has bt 11/09/18 Range/Units 05:45 WBC (4.8-10.8) K/uL RBC (3.80-5.20) Mil/uL Hgb (12.0-16.0) g/dL Hct (34.0-47.0) % MCV (81.0-99.0) fl MCH (27.0-31.0) pg MCHC (33.0-37.0) g/dL RDW (11.5-14.5) % Plt Count (130-400) K/uL MPV (7.2-11.7) fl Neut % (Auto) (50.0-75.0) % Lymph % (Auto) (20.0-40.0) % Bureau % (Auto) (0.0-10.0) % Eos % (Auto) (0.0-4.0) % Baso % (Auto) (0.0-2.0) % Neut # (Auto) (1.8-7.0) K/uL Lymph # (Auto) (1.0-4.3) K/uL Bureau # (Auto) (0.0-0.8) K/uL Eos # (Auto) (0.0-0.7) K/uL Baso # (Auto) (0.0-0.2) K/uL Total Counted Neutrophils % (Manual) 94 H (42-75) % Band Neutrophils % 2 (0-2) % Lymphocytes % (Manual) 2 L (20-50) % Reactive Lymphs % Monocytes % (Manual) 2 (0-10) % Eosinophils % (Manual) Basophils % (Manual) Metamyelocytes % Myelocytes % Promyelocytes % Blast Cells % Plasma Cell % (Manual) Nucleated RBC % Hypersegmented Polys Smudge Cells Toxic Granulation Dohle Bodies Devorah Rods Platelet Estimate Decreased L (NORMAL) Plt Clumps, EDTA Large Platelets Giant Platelets RBC Morphology Polychromasia Hypochromasia (manual) Slight Poikilocytosis (manual Basophilic Stippling Anisocytosis (manual) Moderate Microcytosis (manual) Macrocytosis (manual) Slight Spherocytes Sickle Cells Target Cells Tear Drop Cells Ovalocytes Stomatocytes Helmet Cells [place] Bodies [place]ton Cells Acanthocytes (Spur) Rouleaux Schistocytes Fibrinogen (200-400) mg/dl pCO2 (35-45) mm/Hg pO2 (30-55) mm/Hg HCO3 (21-28) mmol/L ABG pH (7.35-7.45) ABG Total CO2 (22-28) mmol/L ABG O2 Saturation (95-98) % ABG O2 Content (15-23) ML/dL ABG Base Excess (-2.0-3.0) mmol/L ABG Hemoglobin (11.7-17.4) g/dL ABG Carboxyhemoglobin (0.5-1.5) % POC ABG HHb (Measured) (0.0-5.0) % ABG Methemoglobin (0.0-3.0) % ABG O2 Capacity (16-24) mL/dL Frederic Test VBG pH (7.32-7.43) VBG pCO2 (40-60) mmHg VBG HCO3 mmol/L VBG Total CO2 (22-28) mmol/L VBG O2 Sat (Calc) (40-65) % VBG Base Excess (0.0-2.0) mmol/L VBG Potassium (3.6-5.2) mmol/L A-a O2 Difference mm/Hg Hgb O2 Saturation (95.0-98.0) % Sodium (132-148) mmol/L Chloride (98-107) mmol/L Glucose (65-105) mg/dL Lactate (0.7-2.1) mmol/L Vent Mode Mechanical Rate FiO2 % Tidal Volume PEEP Potassium (3.6-5.0) MMOL/L Carbon Dioxide (22-30) mmol/L Anion Gap (10-20) BUN (7-17) mg/dl Creatinine (0.7-1.2) mg/dl Est GFR ( Amer) Est GFR (Non-Af Amer) Random Glucose (65-105) mg/dL Calcium (8.4-10.2) mg/dL Total Bilirubin (0.2-1.3) mg/dl AST (14-36) U/L ALT (9-52) U/L Alkaline Phosphatase (38-126) U/L Total Creatine Kinase (30-135) U/L Total Protein (6.3-8.2) G/DL Albumin (3.5-5.0) g/dL Globulin (2.2-3.9) gm/dL Albumin/Globulin Ratio (1.0-2.1) Procalcitonin (0.19-0.49) NG/ML Venous Blood Potassium (3.6-5.2) mmol/L Vancomycin Trough (5.0-10.0) ug/mL Blood Type Antibody Screen Crossmatch BBK History Checked Laboratory Results - last 24 hr 11/09/18 11/09/18 11/09/18 05:45 07:45 11:00 WBC RBC Hgb Hct MCV MCH MCHC RDW Plt Count MPV Neut % (Auto) Lymph % (Auto) Bureau % (Auto) Eos % (Auto) Baso % (Auto) Neut # (Auto) Lymph # (Auto) Bureau # (Auto) Eos # (Auto) Baso # (Auto) Total Counted Neutrophils % (Manual) 94 H Band Neutrophils % 2 Lymphocytes % (Manual) 2 L Reactive Lymphs % Monocytes % (Manual) 2 Eosinophils % (Manual) Basophils % (Manual) Metamyelocytes % Myelocytes % Promyelocytes % Blast Cells % Plasma Cell % (Manual) Nucleated RBC % Hypersegmented Polys Smudge Cells Toxic Granulation Dohle Bodies Devorah Rods Platelet Estimate Decreased L Plt Clumps, EDTA Large Platelets Giant Platelets RBC Morphology Polychromasia Hypochromasia (manual) Slight Poikilocytosis (manual Basophilic Stippling Anisocytosis (manual) Moderate Microcytosis (manual) Macrocytosis (manual) Slight Spherocytes Sickle Cells Target Cells Tear Drop Cells Ovalocytes Stomatocytes Helmet Cells [place] Bodies Naina Cells Acanthocytes (Spur) Rouleaux Schistocytes Fibrinogen pCO2 pO2 HCO3 ABG pH ABG Total CO2 ABG O2 Saturation ABG O2 Content ABG Base Excess ABG Hemoglobin ABG Carboxyhemoglobin POC ABG HHb (Measured) ABG Methemoglobin ABG O2 Capacity Frederic Test VBG pH VBG pCO2 VBG HCO3 VBG Total CO2 VBG O2 Sat (Calc) VBG Base Excess VBG Potassium A-a O2 Difference Hgb O2 Saturation Sodium Chloride Glucose Lactate Vent Mode Mechanical Rate FiO2 Tidal Volume PEEP Potassium Carbon Dioxide Anion Gap BUN Creatinine Est GFR ( Amer) Est GFR (Non-Af Amer) Random Glucose Calcium Total Bilirubin AST ALT Alkaline Phosphatase Total Creatine Kinase < 20 L Total Protein Albumin Globulin Albumin/Globulin Ratio Procalcitonin Venous Blood Potassium Vancomycin Trough Blood Type A POSITIVE Antibody Screen Negative Crossmatch See Detail BBK History Checked Patient has bt 04/11/09/18 11/10/18 16:30 17:44 04:49 WBC RBC Hgb Hct MCV MCH MCHC RDW Plt Count MPV Neut % (Auto) Lymph % (Auto) Bureau % (Auto) Eos % (Auto) Baso % (Auto) Neut # (Auto) Lymph # (Auto) Bureau # (Auto) Eos # (Auto) Baso # (Auto) Total Counted Neutrophils % (Manual) Band Neutrophils % Lymphocytes % (Manual) Reactive Lymphs % Monocytes % (Manual) Eosinophils % (Manual) Basophils % (Manual) Metamyelocytes % Myelocytes % Promyelocytes % Blast Cells % Plasma Cell % (Manual) Nucleated RBC % Hypersegmented Polys Smudge Cells Toxic Granulation Dohle Bodies Devorah Rods Platelet Estimate Plt Clumps, EDTA Large Platelets Giant Platelets RBC Morphology Polychromasia Hypochromasia (manual) Poikilocytosis (manual Basophilic Stippling Anisocytosis (manual) Microcytosis (manual) Macrocytosis (manual) Spherocytes Sickle Cells Target Cells Tear Drop Cells Ovalocytes Stomatocytes Helmet Cells [place] Bodies Naina Cells Acanthocytes (Spur) Rouleaux Schistocytes Fibrinogen pCO2 27 L pO2 48 62 L HCO3 14.2 L ABG pH 7.26 L ABG Total CO2 12.9 L ABG O2 Saturation 94.8 L ABG O2 Content 12.8 L ABG Base Excess -13.6 L ABG Hemoglobin 10.0 L ABG Carboxyhemoglobin 2.7 H POC ABG HHb (Measured) 5.0 ABG Methemoglobin 1.9 ABG O2 Capacity 13.5 L Frederic Test Yes VBG pH 7.25 L VBG pCO2 31 L VBG HCO3 14.7 VBG Total CO2 14.6 L VBG O2 Sat (Calc) 87.1 H VBG Base Excess -12.4 L VBG Potassium 3.8 A-a O2 Difference 154.0 Hgb O2 Saturation 90.5 L Sodium 130.0 L Chloride 105.0 Glucose 109 H Lactate 1.3 Vent Mode A/c Mechanical Rate 12 FiO2 35.0 35.0 Tidal Volume 450 PEEP 5 Potassium Carbon Dioxide Anion Gap BUN Creatinine Est GFR ( Amer) Est GFR (Non-Af Amer) Random Glucose Calcium Total Bilirubin AST ALT Alkaline Phosphatase Total Creatine Kinase Total Protein Albumin Globulin Albumin/Globulin Ratio Procalcitonin 2.33 H Venous Blood Potassium 3.8 Vancomycin Trough Blood Type Antibody Screen Crossmatch BBK History Checked 11/10/18 11/10/18 11/10/18 05:46 05:46 05:46 WBC 28.2 H RBC 3.10 L Hgb 9.4 L D Hct 29.4 L MCV 94.8 MCH 30.5 MCHC 32.2 L RDW 17.0 H Plt Count 39 L MPV 12.1 H Neut % (Auto) 97.3 H Lymph % (Auto) 0.8 L Bureau % (Auto) 1.5 Eos % (Auto) 0.0 Baso % (Auto) 0.4 Neut # (Auto) 27.4 H Lymph # (Auto) 0.2 L Bureau # (Auto) 0.4 Eos # (Auto) 0.0 Baso # (Auto) 0.1 Total Counted Cancelled Neutrophils % (Manual) Cancelled Band Neutrophils % Cancelled Lymphocytes % (Manual) Cancelled Reactive Lymphs % Cancelled Monocytes % (Manual) Cancelled Eosinophils % (Manual) Cancelled Basophils % (Manual) Cancelled Metamyelocytes % Cancelled Myelocytes % Cancelled Promyelocytes % Cancelled Blast Cells % Cancelled Plasma Cell % (Manual) Cancelled Nucleated RBC % Cancelled Hypersegmented Polys Cancelled Smudge Cells Cancelled Toxic Granulation Cancelled Dohle Bodies Cancelled Devorah Rods Cancelled Platelet Estimate Cancelled Plt Clumps, EDTA Cancelled Large Platelets Cancelled Giant Platelets Cancelled RBC Morphology Cancelled Polychromasia Cancelled Hypochromasia (manual) Cancelled Poikilocytosis (manual Cancelled Basophilic Stippling Cancelled Anisocytosis (manual) Cancelled Microcytosis (manual) Cancelled Macrocytosis (manual) Cancelled Spherocytes Cancelled Sickle Cells Cancelled Target Cells Cancelled Tear Drop Cells Cancelled Ovalocytes Cancelled Stomatocytes Cancelled Helmet Cells Cancelled [place] Bodies Cancelled [place] Cells Cancelled Acanthocytes (Spur) Cancelled Rouleaux Cancelled Schistocytes Cancelled Fibrinogen pCO2 pO2 HCO3 ABG pH ABG Total CO2 ABG O2 Saturation ABG O2 Content ABG Base Excess ABG Hemoglobin ABG Carboxyhemoglobin POC ABG HHb (Measured) ABG Methemoglobin ABG O2 Capacity Frederic Test VBG pH VBG pCO2 VBG HCO3 VBG Total CO2 VBG O2 Sat (Calc) VBG Base Excess VBG Potassium A-a O2 Difference Hgb O2 Saturation Sodium 135 Chloride 107 Glucose Lactate Vent Mode Mechanical Rate FiO2 [place] Volume PEEP Potassium 3.8 Carbon Dioxide 13 L Anion Gap 19 BUN 79 H Creatinine 1.2 Est GFR ( Amer) 55 Est GFR (Non-Af Amer) 46 Random Glucose 98 Calcium 7.6 L Total Bilirubin 1.3 AST 22 ALT 27 Alkaline Phosphatase 103 Total Creatine Kinase Total Protein 5.2 L Albumin 2.8 L Globulin 2.3 Albumin/Globulin Ratio 1.2 Procalcitonin Venous Blood Potassium Vancomycin Trough 28.7 H Blood Type Antibody Screen Crossmatch BBK History Checked 11/10/18 05:46 WBC RBC Hgb Hct MCV MCH MCHC RDW Plt Count MPV Neut % (Auto) Lymph % (Auto) Bureau % (Auto) Eos % (Auto) Baso % (Auto) Neut # (Auto) Lymph # (Auto) Bureau # (Auto) Eos # (Auto) Baso # (Auto) Total Counted Neutrophils % (Manual) Band Neutrophils % Lymphocytes % (Manual) Reactive Lymphs % Monocytes % (Manual) Eosinophils % (Manual) Basophils % (Manual) Metamyelocytes % Myelocytes % Promyelocytes % Blast Cells % Plasma Cell % (Manual) Nucleated RBC % Hypersegmented Polys Smudge Cells Toxic Granulation Dohle Bodies [place] Rods Platelet Estimate Plt Clumps, EDTA Large Platelets Giant Platelets RBC Morphology Polychromasia Hypochromasia (manual) Poikilocytosis (manual Basophilic Stippling Anisocytosis (manual) Microcytosis (manual) Macrocytosis (manual) Spherocytes Sickle Cells Target Cells Tear Drop Cells Ovalocytes Stomatocytes Helmet Cells [place] Bodies Naina Cells Acanthocytes (Spur) Rouleaux Schistocytes Fibrinogen 145 L pCO2 pO2 HCO3 ABG pH ABG Total CO2 ABG O2 Saturation ABG O2 Content ABG Base Excess ABG Hemoglobin ABG Carboxyhemoglobin POC ABG HHb (Measured) ABG Methemoglobin ABG O2 Capacity Frederic Test VBG pH VBG pCO2 VBG HCO3 VBG Total CO2 VBG O2 Sat (Calc) VBG Base Excess VBG Potassium A-a O2 Difference Hgb O2 Saturation Sodium Chloride Glucose Lactate Vent Mode Mechanical Rate FiO2 Tidal Volume PEEP Potassium Carbon Dioxide Anion Gap BUN Creatinine Est GFR ( Amer) Est GFR (Non-Af Amer) Random Glucose Calcium Total Bilirubin AST ALT Alkaline Phosphatase Total Creatine Kinase Total Protein Albumin Globulin Albumin/Globulin Ratio Procalcitonin Venous Blood Potassium Vancomycin Trough Blood Type Antibody Screen Crossmatch BBK History Checked Radiology Impressions: Radiology Impressions Chest X-Ray 11/09/18 06:00 IMPRESSION: No significant interval change in low lung volumes, moderate pleural effusions, worse on the left and bibasilar airspace disease. Stable position of support line and tubes. Critical Care Progress Note - Nutrition Nutrition: Nutrition Category Date Time Status NPO Diet [DIET] Diets 10/03/18 Breakfast Active <Micah To - Last Filed: 11/10/18 15:45> Assessment/Plan - Assessment and Plan (Free Text) Plan: Attestation: Patient seen and examined at the bedside with Resident Dr. Natasha Avina; and I agree with her outline of plans and management documented above as discussed on AM rounds; reflecting my review of all applicable clinical data, and participation in the care of the patient throughout the day in ICU; today, November 10, 2018.
--- NOTE | 2018-11-10 09:34 | CP.PCM.PN ---
Subjective - Date & Time of Evaluation Date of Evaluation: 11/10/18 Time of Evaluation: 09:33 - Subjective Subjective: no overnight events Objective - Vital Signs/Intake and Output Vital Signs (last 24 hours): Temp Pulse Resp BP Pulse Ox 98.1 F 117 H 16 91/48 L 96 11/10/18 08:00 11/10/18 08:00 11/10/18 08:00 11/10/18 08:00 11/10/18 08:00 Intake and Output: 11/10/18 11/10/18 06:59 18:59 Intake Total 652 Output Total 1000 Balance -348 - Medications Medications: Current Medications Albumin Human (Albumin Human 25% (12.5 Gm/50 Ml)) 25 gm IV Q6 GLADIS Last Admin: 11/10/18 05:32 Dose: 25 gm Famotidine (Pepcid) 20 mg PO BID GLADIS Last Admin: 11/09/18 17:25 Dose: 20 mg Micafungin Sodium 50 mg/ (Sodium Chloride) 100 mls @ 100 mls/hr IVPB DAILY GLADIS; Protocol Last Admin: 11/09/18 10:02 Dose: 100 mls/hr Cefepime HCl 2 gm/ Sodium (Chloride) 100 mls @ 100 mls/hr IVPB Q12 GLADIS; Protocol Last Admin: 11/09/18 22:19 Dose: 100 mls/hr Vancomycin HCl 750 mg/ Sodium (Chloride) 250 mls @ 166.667 mls/hr IVPB DAILY GLADIS; Protocol Last Admin: 11/08/18 15:00 Dose: 166.667 mls/hr Gentamicin Sulfate 75 mg/ (Sodium Chloride) 51.875 mls @ 51.489 mls/hr IVPB Q8H GLADIS; Protocol Last Admin: 11/10/18 00:42 Dose: 51.489 mls/hr Rifampin (Rifampin Cap) 300 mg PO Q8 GLADIS; Protocol Last Admin: 11/10/18 00:49 Dose: 300 mg - Labs Labs: 11/10/18 05:46 11/10/18 05:46 PT 17.9 Seconds (9.8-13.1) H 11/04/18 06:01 INR 1.6 11/04/18 06:01 APTT 37.2 Seconds (25.6-37.1) H 11/04/18 06:01 - Head Exam Head Exam: ATRAUMATIC - Neck Exam Neck Exam: Normal Inspection - Respiratory Exam Respiratory Exam: Rhonchi, NORMAL BREATHING PATTERN - Cardiovascular Exam Cardiovascular Exam: REGULAR RHYTHM - GI/Abdominal Exam GI & Abdominal Exam: Distended, Soft, Normal Bowel Sounds - Rectal Exam Rectal Exam: Deferred Assessment and Plan - Assessment and Plan (Free Text) Assessment: 58 yo female with terminal cancer no change in condition or prognosis supportive care goals of care
[2018-11-10] MEDS: Cefepime 2 GM in Sodium Chloride 0.9% 100 ML IVPB SCH ×2 (09:49→20:11)
[2018-11-10] MEDS ORDERED: DOBUTamine 500mg/250ml D5W 500 MG/250 ML BAG IV SCH (10:30)
--- NOTE | 2018-11-10 10:41 | CP.PCM.PN ---
Subjective - Date & Time of Evaluation Date of Evaluation: 11/10/18 Time of Evaluation: 10:41 - Subjective Subjective: ID Note- Patient seen and examined today in ICU. pt. clinically worse. she is now on dobutamine as well because she was found to have very low EF on echo as per ICU doc. pt. unresponsive. Objective - Vital Signs/Intake and Output Vital Signs (last 24 hours): Temp Pulse Resp BP Pulse Ox 98.1 F 115 H 16 89/49 L 95 11/10/18 09:00 11/10/18 09:00 11/10/18 09:00 11/10/18 09:00 11/10/18 09:00 Intake and Output: 11/10/18 11/10/18 06:59 18:59 Intake Total 652 Output Total 1000 Balance -348 - Medications Medications: Current Medications Albumin Human (Albumin Human 25% (12.5 Gm/50 Ml)) 25 gm IV Q6 GLADIS Last Admin: 11/10/18 05:32 Dose: 25 gm Artificial Tears (Artificial Tears) 2 drop OU Q4 GLADIS Famotidine (Pepcid) 20 mg PO BID GLADIS Last Admin: 11/10/18 09:52 Dose: 20 mg Micafungin Sodium 50 mg/ (Sodium Chloride) 100 mls @ 100 mls/hr IVPB DAILY GLADIS; Protocol Last Admin: 11/10/18 09:50 Dose: 100 mls/hr Cefepime HCl 2 gm/ Sodium (Chloride) 100 mls @ 100 mls/hr IVPB Q12 GLADIS; Protocol Last Admin: 11/10/18 09:49 Dose: 100 mls/hr Vancomycin HCl 750 mg/ Sodium (Chloride) 250 mls @ 166.667 mls/hr IVPB DAILY GLADIS; Protocol Last Admin: 11/08/18 15:00 Dose: 166.667 mls/hr Gentamicin Sulfate/Sodium Chloride (Gentamicin 80mg/50ml Ns) 80 mg in 50 mls @ 50 mls/hr IVPB Q8 GLADIS; Protocol Dobutamine HCl/Dextrose (Dobutamine/Dextrose 5% 500mg/250ml) 500 mg in 250 mls @ 10.519 mls/hr IV .[id number] GLADIS Rifampin (Rifampin Cap) 300 mg PO Q8 GLADIS; Protocol Last Admin: 11/10/18 09:52 Dose: 300 mg - Labs Labs: - Additional Findings Additional findings: - Constitutional Appears: Chronically Ill Additional comments: - ENT Exam Additional comments: s/p trache - Respiratory Exam Additional comments: On the vent via Trach decreased breath sounds on left side - Cardiovascular Exam Cardiovascular Exam: Tachycardia, +S1, +S2 - GI/Abdominal Exam Additional comments: distended , soft hypoactive BS + ascites anasarca weeping from previous paracenthesis site and has bag over it draining clear fluid - Extremities Exam Additional comments: b/l 2+ edema in LE and UE - Neurological Exam Additional comments: unresponsive Laboratory Results - last 72 hr 11/08/18 11/08/18 11/08/18 05:08 05:32 05:32 WBC 28.6 H RBC 2.82 L Hgb 8.5 L Hct 27.2 L MCV 96.6 MCH 30.2 MCHC 31.2 L RDW 19.4 H Plt Count 65 L MPV Neut % (Auto) Lymph % (Auto) [place] % (Auto) Eos % (Auto) Baso % (Auto) Neut # (Auto) Lymph # (Auto) [place] # (Auto) Eos # (Auto) Baso # (Auto) Total Counted Neutrophils % (Manual) Band Neutrophils % Lymphocytes % (Manual) Reactive Lymphs % Monocytes % (Manual) Eosinophils % (Manual) Basophils % (Manual) Metamyelocytes % Myelocytes % Promyelocytes % Blast Cells % Plasma Cell % (Manual) Nucleated RBC % Hypersegmented Polys Smudge Cells Toxic Granulation Dohle Bodies Devorah Rods Platelet Estimate Plt Clumps, EDTA Large Platelets Giant Platelets RBC Morphology Polychromasia Hypochromasia (manual) Poikilocytosis (manual Basophilic Stippling Anisocytosis (manual) Microcytosis (manual) Macrocytosis (manual) Spherocytes Sickle Cells Target Cells Tear Drop Cells Ovalocytes Stomatocytes Helmet Cells [place] Bodies [place] Cells Acanthocytes (Spur) Rouleaux Schistocytes Fibrinogen pCO2 27 L pO2 101 H HCO3 15.7 L ABG pH 7.30 L ABG Total CO2 14.1 L ABG O2 Saturation 100.4 H ABG O2 Content 12.3 L ABG Base Excess -11.9 L ABG Hemoglobin 8.9 L ABG Carboxyhemoglobin 2.3 H POC ABG HHb (Measured) -0.4 L ABG Methemoglobin 1.7 ABG O2 Capacity 12.3 L Frederic Test Yes VBG pH VBG pCO2 VBG HCO3 VBG Total CO2 VBG O2 Sat (Calc) VBG Base Excess VBG Potassium A-a O2 Difference 115.0 Hgb O2 Saturation 96.5 Glucose Lactate Vent Mode A/c Mechanical Rate 12 FiO2 35.0 Tidal Volume 450 PEEP 5 Sodium 132 Potassium 3.5 L Chloride 108 H Carbon Dioxide 14 L Anion Gap 14 BUN 71 H Creatinine 1.1 Est GFR ( Amer) > 60 Est GFR (Non-Af Amer) 51 Random Glucose 132 H Lactic Acid Calcium 7.6 L Total Bilirubin AST ALT Alkaline Phosphatase Total Creatine Kinase Total Protein Albumin Globulin Albumin/Globulin Ratio Procalcitonin Venous Blood Potassium Vancomycin Trough Blood Type Antibody Screen Crossmatch BBK History Checked 11/08/18 11/09/18 11/09/18 12:15 04:53 05:45 WBC RBC Hgb Hct MCV MCH MCHC RDW Plt Count MPV Neut % (Auto) Lymph % (Auto) [place] % (Auto) Eos % (Auto) Baso % (Auto) Neut # (Auto) Lymph # (Auto) [place] # (Auto) Eos # (Auto) Baso # (Auto) Total Counted Neutrophils % (Manual) Band Neutrophils % Lymphocytes % (Manual) Reactive Lymphs % Monocytes % (Manual) Eosinophils % (Manual) Basophils % (Manual) Metamyelocytes % Myelocytes % Promyelocytes % Blast Cells % Plasma Cell % (Manual) Nucleated RBC % Hypersegmented Polys Smudge Cells Toxic Granulation Dohle Bodies Devorah Rods Platelet Estimate Plt Clumps, EDTA Large Platelets Giant Platelets RBC Morphology Polychromasia Hypochromasia (manual) Poikilocytosis (manual Basophilic Stippling Anisocytosis (manual) Microcytosis (manual) Macrocytosis (manual) Spherocytes Sickle Cells Target Cells Tear Drop Cells Ovalocytes Stomatocytes Helmet Cells [place] Bodies [place] Cells Acanthocytes (Spur) Rouleaux Schistocytes Fibrinogen pCO2 31 L pO2 71 L HCO3 15.5 L ABG pH 7.26 L ABG Total CO2 14.9 L ABG O2 Saturation 99.1 H ABG O2 Content 9.9 L ABG Base Excess -12.1 L ABG Hemoglobin 7.4 L ABG Carboxyhemoglobin 2.9 H POC ABG HHb (Measured) 0.9 ABG Methemoglobin 2.0 ABG O2 Capacity 10.0 L Frederic Test Yes VBG pH VBG pCO2 VBG HCO3 VBG Total CO2 VBG O2 Sat (Calc) VBG Base Excess VBG Potassium A-a O2 Difference 140.0 Hgb O2 Saturation 94.2 L Glucose Lactate Vent Mode A/c Mechanical Rate 12 FiO2 35.0 Tidal Volume 450 PEEP 5 Sodium Potassium Chloride Carbon Dioxide Anion Gap BUN Creatinine Est GFR ( Amer) Est GFR (Non-Af Amer) Random Glucose Lactic Acid Calcium Total Bilirubin AST ALT Alkaline Phosphatase Total Creatine Kinase Total Protein Albumin Globulin Albumin/Globulin Ratio Procalcitonin Venous Blood Potassium Vancomycin Trough 27.5 H 34.1 H Blood Type Antibody Screen Crossmatch BBK History Checked 11/09/18 11/09/18 11/09/18 05:45 05:45 07:45 WBC 27.4 H RBC 2.30 L Hgb 7.0 L Hct 22.2 L MCV 96.4 MCH 30.3 MCHC 31.4 L RDW 19.9 H Plt Count 55 L MPV 11.9 H Neut % (Auto) 96.7 H Lymph % (Auto) 1.0 L [place] % (Auto) 2.2 Eos % (Auto) 0.0 Baso % (Auto) 0.1 Neut # (Auto) 26.5 H Lymph # (Auto) 0.3 L [place] # (Auto) 0.6 Eos # (Auto) 0.0 Baso # (Auto) 0.0 Total Counted Neutrophils % (Manual) 94 H Band Neutrophils % 2 Lymphocytes % (Manual) 2 L Reactive Lymphs % Monocytes % (Manual) 2 Eosinophils % (Manual) Basophils % (Manual) Metamyelocytes % Myelocytes % Promyelocytes % Blast Cells % Plasma Cell % (Manual) Nucleated RBC % Hypersegmented Polys Smudge Cells Toxic Granulation Dohle Bodies Devorah Rods Platelet Estimate Decreased L Plt Clumps, EDTA Large Platelets Giant Platelets RBC Morphology Polychromasia Hypochromasia (manual) Slight Poikilocytosis (manual Basophilic Stippling Anisocytosis (manual) Moderate Microcytosis (manual) Macrocytosis (manual) Slight Spherocytes Sickle Cells Target Cells Tear Drop Cells Ovalocytes Stomatocytes Helmet Cells [place] Bodies [place] Cells Acanthocytes (Spur) Rouleaux Schistocytes Fibrinogen pCO2 pO2 HCO3 ABG pH ABG Total CO2 ABG O2 Saturation ABG O2 Content ABG Base Excess ABG Hemoglobin ABG Carboxyhemoglobin POC ABG HHb (Measured) ABG Methemoglobin ABG O2 Capacity Frederic Test VBG pH VBG pCO2 VBG HCO3 VBG Total CO2 VBG O2 Sat (Calc) VBG Base Excess VBG Potassium A-a O2 Difference Hgb O2 Saturation Glucose Lactate Vent Mode Mechanical Rate FiO2 Tidal Volume PEEP Sodium 134 Potassium 3.9 Chloride 106 Carbon Dioxide 15 L Anion Gap 17 BUN 76 H Creatinine 1.1 Est GFR ( Amer) > 60 Est GFR (Non-Af Amer) 51 Random Glucose 114 H Lactic Acid Calcium 7.8 L Total Bilirubin 0.6 AST 18 ALT 25 Alkaline Phosphatase 143 H D Total Creatine Kinase Total Protein 5.1 L Albumin 2.4 L D Globulin 2.7 Albumin/Globulin Ratio 0.9 L Procalcitonin Venous Blood Potassium Vancomycin Trough Blood Type A POSITIVE Antibody Screen Negative Crossmatch See Detail BBK History Checked Patient has bt 11/09/18 11/09/18 11/09/18 08:09 11:00 16:30 WBC RBC Hgb Hct MCV MCH MCHC RDW Plt Count MPV Neut % (Auto) Lymph % (Auto) [place] % (Auto) Eos % (Auto) Baso % (Auto) Neut # (Auto) Lymph # (Auto) [place] # (Auto) Eos # (Auto) Baso # (Auto) Total Counted Neutrophils % (Manual) Band Neutrophils % Lymphocytes % (Manual) Reactive Lymphs % Monocytes % (Manual) Eosinophils % (Manual) Basophils % (Manual) Metamyelocytes % Myelocytes % Promyelocytes % Blast Cells % Plasma Cell % (Manual) Nucleated RBC % Hypersegmented Polys Smudge Cells Toxic Granulation Dohle Bodies Devorah Rods Platelet Estimate Plt Clumps, EDTA Large Platelets Giant Platelets RBC Morphology Polychromasia Hypochromasia (manual) Poikilocytosis (manual Basophilic Stippling Anisocytosis (manual) Microcytosis (manual) Macrocytosis (manual) Spherocytes Sickle Cells Target Cells Tear Drop Cells Ovalocytes Stomatocytes Helmet Cells [place] Bodies [place] Cells Acanthocytes (Spur) Rouleaux Schistocytes Fibrinogen pCO2 pO2 48 HCO3 ABG pH ABG Total CO2 ABG O2 Saturation ABG O2 Content ABG Base Excess ABG Hemoglobin ABG Carboxyhemoglobin POC ABG HHb (Measured) ABG Methemoglobin ABG O2 Capacity Frdeeric Test VBG pH 7.25 L VBG pCO2 31 L VBG HCO3 14.7 VBG Total CO2 14.6 L VBG O2 Sat (Calc) 87.1 H VBG Base Excess -12.4 L VBG Potassium 3.8 A-a O2 Difference Hgb O2 Saturation Glucose 109 H Lactate 1.3 Vent Mode Mechanical Rate FiO2 35.0 Tidal Volume PEEP Sodium 130.0 L Potassium Chloride 105.0 Carbon Dioxide Anion Gap BUN Creatinine Est GFR ( Amer) Est GFR (Non-Af Amer) Random Glucose Lactic Acid 1.6 Calcium Total Bilirubin AST ALT Alkaline Phosphatase Total Creatine Kinase < 20 L Total Protein Albumin Globulin Albumin/Globulin Ratio Procalcitonin Venous Blood Potassium 3.8 Vancomycin Trough Blood Type Antibody Screen Crossmatch BBK History Checked 11/09/18 11/10/18 11/10/18 17:44 04:49 05:46 WBC 28.2 H RBC 3.10 L Hgb 9.4 L D Hct 29.4 L MCV 94.8 MCH 30.5 MCHC 32.2 L RDW 17.0 H Plt Count 39 L MPV 12.1 H Neut % (Auto) 97.3 H Lymph % (Auto) 0.8 L [place] % (Auto) 1.5 Eos % (Auto) 0.0 Baso % (Auto) 0.4 Neut # (Auto) 27.4 H Lymph # (Auto) 0.2 L [place] # (Auto) 0.4 Eos # (Auto) 0.0 Baso # (Auto) 0.1 Total Counted Cancelled Neutrophils % (Manual) Cancelled Band Neutrophils % Cancelled Lymphocytes % (Manual) Cancelled Reactive Lymphs % Cancelled Monocytes % (Manual) Cancelled Eosinophils % (Manual) Cancelled Basophils % (Manual) Cancelled Metamyelocytes % Cancelled Myelocytes % Cancelled Promyelocytes % Cancelled Blast Cells % Cancelled Plasma Cell % (Manual) Cancelled Nucleated RBC % Cancelled Hypersegmented Polys Cancelled Smudge Cells Cancelled Toxic Granulation Cancelled Dohle Bodies Cancelled Devorah Rods Cancelled Platelet Estimate Cancelled Plt Clumps, EDTA Cancelled Large Platelets Cancelled Giant Platelets Cancelled RBC Morphology Cancelled Polychromasia Cancelled Hypochromasia (manual) Cancelled Poikilocytosis (manual Cancelled Basophilic Stippling Cancelled Anisocytosis (manual) Cancelled Microcytosis (manual) Cancelled Macrocytosis (manual) Cancelled Spherocytes Cancelled Sickle Cells Cancelled Target Cells Cancelled Tear Drop Cells Cancelled Ovalocytes Cancelled Stomatocytes Cancelled Helmet Cells Cancelled [place] Bodies Cancelled [place] Cells Cancelled Acanthocytes (Spur) Cancelled Rouleaux Cancelled Schistocytes Cancelled Fibrinogen pCO2 27 L pO2 62 L HCO3 14.2 L ABG pH 7.26 L ABG Total CO2 12.9 L ABG O2 Saturation 94.8 L ABG O2 Content 12.8 L ABG Base Excess -13.6 L ABG Hemoglobin 10.0 L ABG Carboxyhemoglobin 2.7 H POC ABG HHb (Measured) 5.0 ABG Methemoglobin 1.9 ABG O2 Capacity 13.5 L Frederic Test Yes VBG pH VBG pCO2 VBG HCO3 VBG Total CO2 VBG O2 Sat (Calc) VBG Base Excess VBG Potassium A-a O2 Difference 154.0 Hgb O2 Saturation 90.5 L Glucose Lactate Vent Mode A/c Mechanical Rate 12 FiO2 35.0 Tidal Volume 450 PEEP 5 Sodium Potassium Chloride Carbon Dioxide Anion Gap BUN Creatinine Est GFR ( Amer) Est GFR (Non-Af Amer) Random Glucose Lactic Acid Calcium Total Bilirubin AST ALT Alkaline Phosphatase Total Creatine Kinase Total Protein Albumin Globulin Albumin/Globulin Ratio Procalcitonin 2.33 H Venous Blood Potassium Vancomycin Trough Blood Type Antibody Screen Crossmatch BBK History Checked 11/10/18 11/10/18 11/10/18 05:46 05:46 05:46 WBC RBC Hgb Hct MCV MCH MCHC RDW Plt Count MPV Neut % (Auto) Lymph % (Auto) [place] % (Auto) Eos % (Auto) Baso % (Auto) Neut # (Auto) Lymph # (Auto) [place] # (Auto) Eos # (Auto) Baso # (Auto) Total Counted Neutrophils % (Manual) Band Neutrophils % Lymphocytes % (Manual) Reactive Lymphs % Monocytes % (Manual) Eosinophils % (Manual) Basophils % (Manual) Metamyelocytes % Myelocytes % Promyelocytes % Blast Cells % Plasma Cell % (Manual) Nucleated RBC % Hypersegmented Polys Smudge Cells Toxic Granulation Dohle Bodies Devorah Rods Platelet Estimate Plt Clumps, EDTA Large Platelets Giant Platelets RBC Morphology Polychromasia Hypochromasia (manual) Poikilocytosis (manual Basophilic Stippling Anisocytosis (manual) Microcytosis (manual) Macrocytosis (manual) Spherocytes Sickle Cells Target Cells Tear Drop Cells Ovalocytes Stomatocytes Helmet Cells [place] Bodies [place] Cells Acanthocytes (Spur) Rouleaux Schistocytes Fibrinogen 145 L pCO2 pO2 HCO3 ABG pH ABG Total CO2 ABG O2 Saturation ABG O2 Content ABG Base Excess ABG Hemoglobin ABG Carboxyhemoglobin POC ABG HHb (Measured) ABG Methemoglobin ABG O2 Capacity Frederic Test VBG pH VBG pCO2 VBG HCO3 VBG Total CO2 VBG O2 Sat (Calc) VBG Base Excess VBG Potassium A-a O2 Difference Hgb O2 Saturation Glucose Lactate Vent Mode Mechanical Rate FiO2 Tidal Volume PEEP Sodium 135 Potassium 3.8 Chloride 107 Carbon Dioxide 13 L Anion Gap 19 BUN 79 H Creatinine 1.2 Est GFR ( Amer) 55 Est GFR (Non-Af Amer) 46 Random Glucose 98 Lactic Acid Calcium 7.6 L Total Bilirubin 1.3 AST 22 ALT 27 Alkaline Phosphatase 103 Total Creatine Kinase Total Protein 5.2 L Albumin 2.8 L Globulin 2.3 Albumin/Globulin Ratio 1.2 Procalcitonin Venous Blood Potassium Vancomycin Trough 28.7 H Blood Type Antibody Screen Crossmatch BBK History Checked Microbiology 11/08/18 12:10 Blood-Thru Central Line Blood Culture - Preliminary NO GROWTH AFTER 48 HOURS 10/21/18 08:00 Urine,Catheterized Urine Culture - Final Catrachito Krusei 11/02/18 04:18 Blood-Venous Blood Culture - Final NO GROWTH AFTER 5 DAYS 11/02/18 04:18 Blood-Venous Gram Stain - Final TEST NOT PERFORMED 11/01/18 04:58 Blood-Venous Blood Culture - Final NO GROWTH AFTER 5 DAYS 11/01/18 04:58 Blood-Venous Gram Stain - Final TEST NOT PERFORMED 11/02/18 04:18 Blood-Thru Central Line S.aureus & Coag-Neg Staph PNA FISH - Final 11/02/18 04:18 Blood-Thru Central Line Blood Culture - Final Coagulase Neg Staphylococcus 11/02/18 04:18 Blood-Thru Central Line Gram Stain - Final 10/31/18 09:02 Trachasp Gram Stain - Final 10/31/18 09:02 Trachasp Sputum Culture - Final Yeast Species 10/29/18 14:30 Blood-Venous Blood Culture - Final NO GROWTH AFTER 5 DAYS 10/29/18 14:30 Blood-Venous Gram Stain - Final TEST NOT PERFORMED 10/29/18 14:40 Blood-Venous Blood Culture - Final NO GROWTH AFTER 5 DAYS 10/29/18 14:40 Blood-Venous Gram Stain - Final TEST NOT PERFORMED 10/31/18 07:00 Blood-Thru Central Line S.aureus & Coag-Neg Staph PNA FISH - Final 10/31/18 07:00 Blood-Thru Central Line Blood Culture - Final Coagulase Neg Staphylococcus 10/31/18 07:00 Blood-Thru Central Line Gram Stain - Final 10/27/18 14:00 Blood-Thru Central Line Blood Culture - Final NO GROWTH AFTER 5 DAYS 10/27/18 14:00 Blood-Thru Central Line Gram Stain - Final TEST NOT PERFORMED 10/26/18 18:20 Blood-Thru Central Line Blood Culture - Final NO GROWTH AFTER 5 DAYS 10/18/18 11:55 Blood-Thru Central Line Blood Culture - Final NO GROWTH AFTER 5 DAYS 10/18/18 11:55 Blood-Thru Central Line Gram Stain - Final TEST NOT PERFORMED 10/05/18 06:15 Blood Blood Culture - Final NO GROWTH AFTER 5 DAYS 10/05/18 06:15 Blood Gram Stain - Final TEST NOT PERFORMED 10/05/18 06:30 Blood Blood Culture - Final NO GROWTH AFTER 5 DAYS 10/05/18 06:30 Blood Gram Stain - Final TEST NOT PERFORMED 10/05/18 07:10 Urine,Hardwick Urine Culture - Final Yeast Species 09/25/18 12:10 Blood-Thru Central Line Blood Culture - Final NO GROWTH AFTER 5 DAYS 09/25/18 12:10 Blood-Thru Central Line Gram Stain - Final TEST NOT PERFORMED 09/20/18 14:00 Blood-Thru Central Line Blood Culture - Final NO GROWTH AFTER 5 DAYS 09/20/18 17:53 Trachasp Gram Stain - Final 09/20/18 17:53 Trachasp Sputum Culture - Final Yeast Species 09/20/18 17:53 Urine,Hardwick Urine Culture - Final No Growth (<1,000 CFU/ML) 09/15/18 15:35 Blood-Thru Central Line Blood Culture - Final NO GROWTH AFTER 5 DAYS 09/15/18 15:35 Blood-Thru Central Line Gram Stain - Final TEST NOT PERFORMED 09/15/18 15:25 Blood-Thru Central Line Blood Culture - Final NO GROWTH AFTER 5 DAYS 09/15/18 15:25 Blood-Thru Central Line Gram Stain - Final TEST NOT PERFORMED 09/08/18 11:49 Blood-Venous Blood Culture - Final NO GROWTH AFTER 5 DAYS 09/08/18 11:49 Blood-Venous Gram Stain - Final TEST NOT PERFORMED 09/08/18 11:49 Blood-Venous Blood Culture - Final NO GROWTH AFTER 5 DAYS 09/08/18 11:49 Blood-Venous Gram Stain - Final TEST NOT PERFORMED 09/07/18 Unknown Blood-Thru Central Line Blood Culture - Final NO GROWTH AFTER 5 DAYS 09/07/18 Unknown Blood-Thru Central Line Gram Stain - Final TEST NOT PERFORMED 09/07/18 Unknown Blood-Thru Central Line Blood Culture - Final NO GROWTH AFTER 5 DAYS 09/07/18 Unknown Blood-Thru Central Line Gram Stain - Final TEST NOT PERFORMED 09/07/18 09:07 Trachasp Gram Stain - Final 09/07/18 09:07 Trachasp Sputum Culture - Final Yeast Species 09/04/18 11:25 Naris MRSA Culture (Admit) - Final MRSA NOT DETECTED Accession No. : [id number] Patient Name / ID : RYLEE ONEIL / [id number] Exam Date : 11/10/2018 04:01:11 ( Approved ) Study Comment : Sex / Age : F / 58Y Creator : Jose E Souza MD Dictator : Jose E Souza MD Assistant To The Ceo : English Lecturer : Jose E Souza MD Approver2 : Report Date : 11/10/2018 11:07:48 My Comment : Date of service: 11/10/2018 HISTORY: Intubated COMPARISON: Comparison made with prior study 11/09/2018 at 4:08 a.m. TECHNIQUE: 1 view obtained. FINDINGS: In situ tracheostomy tube in good position. NGT is present tip of which lies just to the right of midline mid abdomen. No change left IJ MediPort tip in the SVC. LUNGS: Pulmonary venous congestive changes with bilateral lower lobe alveolar-type infiltrates and bilateral effusions. PLEURA: As above. No pneumothorax apparent. CARDIOVASCULAR: Heart is enlarged. No obvious aortic atherosclerotic calcification present. OSSEOUS STRUCTURES: No significant abnormalities. VISUALIZED UPPER ABDOMEN: Normal. OTHER FINDINGS: None. IMPRESSION: Support lines and tubes as above. Pulmonary venous congestive changes with bilateral lower lobe alveolar-type infiltrates and bilateral effusions. 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 remains on the vent on levophed and dobutamine. leukocytosis increasing despite being on antibiotics. TTE- possible mitral valve vegetations as per regulatory scientist's report. one blood cx from port 10/31/2018 - coag neg staph repeat blood cx from the port 11/02/2018- reported as coag neg staph blood cx-11/01/2018- neg blood cx- neg x 11 trach asp cx- yeast ( treated) stool c.diff- negative repeat UA- negative repeat urine cx- yeast ( treated) hardwick removed 4 days ago repeat urine cx - yeast finally ID as catrachito lipolytica ( hardwick was removed a week ago). cxr - b/l pleural effusions PLan- had already completed 38 days of meropnem , 34 days of fluconazole, 25 days of vanco. abx resumed secondary to patient's remaining on the vent and immunecompromised secondary to her metastatic cancer and rising wbc . continue with cefepime day #10 I placed order 4 days ago to hold vanco secondary to high trough. trough still high today. once trough is <20 please redose. started IV gent and rifampin in light of possible coag neg staph MRSE IE. day #2. keep vanco trough <20 day advise to remove the port. needs NEREIDA as well . continue with micafungin as well for C.Lipolytica in urine cx.day #13 prognosis very poor. critical care time spent 40 minutes. all above d/w [employer] at length.
--- NOTE | 2018-11-10 11:13 | RAD ---
Date of service: 11/10/2018 HISTORY: Intubated COMPARISON: Comparison made with prior study 11/09/2018 at 4:08 a.m. TECHNIQUE: 1 view obtained. FINDINGS: In situ tracheostomy tube in good position. NGT is present tip of which lies just to the right of midline mid abdomen. No change left IJ MediPort tip in the SVC. LUNGS: Pulmonary venous congestive changes with bilateral lower lobe alveolar-type infiltrates and bilateral effusions. PLEURA: As above. No pneumothorax apparent. CARDIOVASCULAR: Heart is enlarged. No obvious aortic atherosclerotic calcification present. OSSEOUS STRUCTURES: No significant abnormalities. VISUALIZED UPPER ABDOMEN: Normal. OTHER FINDINGS: None. IMPRESSION: Support lines and tubes as above. Pulmonary venous congestive changes with bilateral lower lobe alveolar-type infiltrates and bilateral effusions.
--- NOTE | 2018-11-10 11:19 | CP.PCM.PN ---
Subjective - Date & Time of Evaluation Date of Evaluation: 11/10/18 Time of Evaluation: 10:00 - Subjective Subjective: LOUIE .. PRE ENAL AZOTEMIA ELECTROLYTES ABN VDRF MMP P : C/O CURRENT CARE C/O PRESENT MANAGEMENT VERY POOR PROGNOSIS Objective - Vital Signs/Intake and Output Vital Signs (last 24 hours): Temp Pulse Resp BP Pulse Ox 98.1 F 115 H 14 86/46 L 95 11/10/18 09:00 11/10/18 10:52 11/10/18 10:52 11/10/18 10:52 11/10/18 09:00 Intake and Output: 11/10/18 11/10/18 06:59 18:59 Intake Total 652 Output Total 1000 Balance -348 - Medications Medications: Current Medications Albumin Human (Albumin Human 25% (12.5 Gm/50 Ml)) 25 gm IV Q6 GLADIS Last Admin: 11/10/18 05:32 Dose: 25 gm Artificial Tears (Artificial Tears) 2 drop OU Q4 GLADIS Famotidine (Pepcid) 20 mg PO BID GLADIS Last Admin: 11/10/18 09:52 Dose: 20 mg Micafungin Sodium 50 mg/ (Sodium Chloride) 100 mls @ 100 mls/hr IVPB DAILY GLADIS; Protocol Last Admin: 11/10/18 09:50 Dose: 100 mls/hr Cefepime HCl 2 gm/ Sodium (Chloride) 100 mls @ 100 mls/hr IVPB Q12 GLADIS; Protocol Last Admin: 11/10/18 09:49 Dose: 100 mls/hr Vancomycin HCl 750 mg/ Sodium (Chloride) 250 mls @ 166.667 mls/hr IVPB DAILY GLADIS; Protocol Last Admin: 11/08/18 15:00 Dose: 166.667 mls/hr Gentamicin Sulfate/Sodium Chloride (Gentamicin 80mg/50ml Ns) 80 mg in 50 mls @ 50 mls/hr IVPB Q8 GLADIS; Protocol Dobutamine HCl/Dextrose (Dobutamine/Dextrose 5% 500mg/250ml) 500 mg in 250 mls @ 10.519 mls/hr IV .[id number] GLADIS Last Admin: 11/10/18 10:52 Dose: 10.519 mls/hr Rifampin (Rifampin Cap) 300 mg PO Q8 GLADIS; Protocol Last Admin: 11/10/18 09:52 Dose: 300 mg - Labs Labs: 11/10/18 05:46 11/10/18 05:46 PT 17.9 Seconds (9.8-13.1) H 11/04/18 06:01 INR 1.6 11/04/18 06:01 APTT 37.2 Seconds (25.6-37.1) H 11/04/18 06:01
[2018-11-10] MEDS: Artificial Tears Opht Soln OU SCH ×2 (15:59→20:13)
[2018-11-10] MEDS: Gentamicin 80mg/50ml NS 80 MG/50 ML BAG IVPB SCH (16:01)
[2018-11-10] MEDS ORDERED: Gentamicin 80mg/50ml NS 80 MG/50 ML BAG IVPB SCH (17:00)
[2018-11-10] MEDS ORDERED: DOBUTamine 250MG/250ML 250 MG/250 ML SOL IVPB ONE (23:56)
[2018-11-11] MEDS: Artificial Tears Opht Soln OU SCH ×6 (00:32→20:29)
[2018-11-11] MEDS ORDERED: DOBUTamine 250MG/250ML 250 MG/250 ML SOL IVPB ONE ×3 (00:44→06:50)
[2018-11-11] MEDS ORDERED: Sodium Chloride 0.9% 1,000 ML IV SCH ×4 (00:45→05:00)
[2018-11-11] MEDS ORDERED: Albumin Human 25% (12.5 gm/50 ml) IV ONE (01:07)
[2018-11-11] MEDS: Gentamicin 80mg/50ml NS 80 MG/50 ML BAG IVPB SCH ×3 (02:45→16:45)
[2018-11-11 06:23] LABS: ALB/GLOB RATIO 1.2 (1.0-2.1); ALBUMIN 2.4 g/dL (3.5-5.0); CALCIUM 6.7 mg/dL (8.4-10.2)
[2018-11-11 06:43] LABS: BASO # 0.1 K/uL (0.0-0.2); BASO % 0.2 % (0.0-2.0); HEMOGLOBIN 6.8 g/dL (12.0-16.0); LYMPH # 0.3 K/uL (1.0-4.3); LYMPH % 0.9 % (20.0-40.0); MEAN CELL VOLUME 98.1 fl (81.0-99.0); MEAN CORPUSCULAR HEMOGLOBIN 30.5 pg (27.0-31.0); MEAN CORPUSCULAR HGB CONC 31.1 g/dL (33.0-37.0); MONO # 0.2 K/uL (0.0-0.8); MONO % 0.9 % (0.0-10.0); NEUT # 26.3 K/uL (1.8-7.0); NRBC % 0.2 % (0.0-0.0); RBC 2.23 Mil/uL (3.80-5.20); RED CELL DISTRIBUTION WIDTH 18.1 % (11.5-14.5); WHITE BLOOD COUNT 26.9 K/uL (4.8-10.8)
[2018-11-11 07:16] LABS: PLATELET COUNT 19 K/uL (130-400)
[2018-11-11] MEDS ORDERED: Albuterol-Ipratrop 3 mg / 0.5 (3 ml) UD INH PRN (07:50)
[2018-11-11] MEDS ORDERED: Sodium Bicarbonate (8.4%) 50 Meq Syringe IVP ONE (07:51)
[2018-11-11] MEDS ORDERED: EPINEPHrine 1 mg/ml (1:1000) Inj IV ONE (07:55)
--- NOTE | 2018-11-11 08:04 | CP.CCUPN ---
CCU Subjective - Physician Review Subjective (Free Text): Patient seen and examined at bedside. Patient is currently on two pressors via port-a-cath, trach, morning labs are not available, BP has been low for more than 24 hours, platelets low,fibrinogen, pt/inr, abg, cmp, genta, all pending 11/11/18 08:02 Critical Care Time Spent (in minutes): 45 CCU Objective - Vital Signs / Intake & Output Vital Signs (Last 4 hours): Vital Signs Temp Pulse Resp BP Pulse Ox 11/11/18 06:56 96.4 F L 110 H 14 70/38 L 100 11/11/18 06:55 110 H 14 73/43 L 100 11/11/18 06:00 96.3 F L 111 H 14 73/43 L 94 L 11/11/18 05:06 97.2 F L 117 H 15 73/37 L 94 L 11/11/18 04:30 97.2 F L 116 H 15 73/38 L 92 L Intake and Output (Last 8hrs): Intake & Output 11/10/18 11/11/18 11/11/18 22:59 06:59 14:59 Intake Total 590 3200 Output Total 1000 790 Balance -410 2410 Weight 163 lb Intake: IV 90 3000 Intake, Piggyback 500 100 Tube Feeding 0 0 Albumin 100 Output: Drainage 1000 700 Right Lower Abdomen 800 500 Right Upper Thigh 200 200 Urine 40 Urethral (Orellana) 40 Stool 50 - Physical Exam Pupils: Positive for: Sluggish Conjunctiva: Negative for: Injected, Icteric Ears: Positive for: Normal Mouth: Positive for: Dry, Other (poor dentition ) Nose (Internal): Positive for: Normal Inspection Neck: Positive for: Trachea Midline, Other (tracheostomy, skin breakdown noted) Respiratory/Chest: Positive for: Respiratory Distress, Decreased Breath Sounds, Rales, Rhonchi, Other (course breath sounds). Negative for: Accessory Muscle Use, Wheezes, Tachypneic Cardiovascular: Positive for: Normal S1, S2, Peripheal Pulses Present, Other (port-a-cath noted on L subcal). Negative for: Murmurs, Irregular Rhythm, Tachycardic, Bradycardic Abdomen: Positive for: Distention. Negative for: Normal Bowel Sounds, Rebound, Guarding Breast/Axillary: Positive for: Other (fungating necrotic mass to Right Breast) Upper Extremity: Positive for: Edema, Other (multiple contusion noted in chest/upper ext ) Lower Extremity: Positive for: Edema. Negative for: Normal Inspection Neurological: Positive for: Other (on ventilator, eyes partially open, not tracking ) Skin: Positive for: Warm, Abrasion (multiple areas of skin breakdown noted) Psychiatric: Negative for: Alert, Oriented x 3, Normal Insight, Normal Concent ration - Medications Active Medications: Active Medications Generic Name Dose Route Start Last Admin Trade Name Freq PRN Reason Stop Dose Admin Albuterol/Ipratropium 3 ml 11/11/18 07:50 Duoneb 3 Mg/0.5 Mg (3 Ml) Ud INH RQ6 PRN Shortness of Breath Artificial Tears 2 drop 11/10/18 13:00 11/11/18 04:40 Artificial Tears OU 2 drop Q4 GLADIS Administration Famotidine 20 mg 11/08/18 17:00 11/10/18 16:02 Pepcid PO 20 mg BID GLADIS Administration Hydrocortisone Sodium Succinate 100 mg 11/11/18 09:00 Solu-Cortef IV Q8 GLADIS Micafungin Sodium 50 mg/ 100 mls @ 100 mls/hr 10/27/18 09:00 11/10/18 09:50 Sodium Chloride IVPB 100 mls/hr DAILY GLADIS Administration Protocol Cefepime HCl 2 gm/ Sodium 100 mls @ 100 mls/hr 10/30/18 21:00 11/10/18 20:11 Chloride IVPB 100 mls/hr Q12 GLADIS Administration Protocol Vancomycin HCl 750 mg/ Sodium 250 mls @ 166.667 mls/hr 11/06/18 15:15 11/08/18 15:00 Chloride IVPB 166.667 mls/hr DAILY GLADIS Administration Protocol Gentamicin Sulfate/Sodium Chloride 80 mg in 50 mls @ 50 mls/hr 11/10/18 14:00 11/11/18 02:45 Gentamicin 80mg/50ml Ns IVPB 50 mls/hr Q8 GLADIS Administration Protocol Sodium Chloride 1,000 mls @ 999 mls/hr 11/11/18 00:45 11/11/18 00:51 Sodium Chloride 0.9% IV 11/12/18 01:45 999 mls/hr .Q1H1M GLADIS Administration Norepinephrine Bitartrate 16 266 mls @ 29.93 mls/hr 11/11/18 05:12 11/11/18 05:15 mg/ Dextrose IV 11/11/18 14:05 29.93 mls/hr .Q8H54M ONE Administration 30 MCG/MIN Dobutamine HCl/Dextrose 250 mg in 250 mls @ 88.723 mls/hr 11/11/18 06:50 11/11/18 06:55 Dobutamine 250mg/250ml IVPB 11/11/18 09:39 88.723 mls/hr .Q2H50M ONE Administration Protocol 20 MCG/KG/MIN Rifampin 300 mg 11/09/18 17:00 11/11/18 01:00 Rifampin Cap PO Not Given Q8 GLADIS Protocol Sodium Bicarbonate 50 meq 11/11/18 08:00 Sodium Bicarbonate (8.4%) 50 Meq Syringe IVP Q6H GLADIS - Patient Studies Lab Studies: Microbiology Studies 11/08/18 12:10 Blood Culture - Preliminary Blood-Thru Central Line NO GROWTH AFTER 48 HOURS Lab Studies 11/11/18 11/11/18 11/11/18 Range/Units 05:00 05:00 05:00 WBC 26.9 H (4.8-10.8) K/uL RBC 2.23 L (3.80-5.20) Mil/uL Hgb 6.8 L D (12.0-16.0) g/dL Hct 21.9 L (34.0-47.0) % MCV 98.1 D (81.0-99.0) fl MCH 30.5 (27.0-31.0) pg MCHC 31.1 L (33.0-37.0) g/dL RDW 18.1 H (11.5-14.5) % Plt Count 19 L* D (130-400) K/uL MPV 10.0 (7.2-11.7) fl Neut % (Auto) 98.0 H (50.0-75.0) % Lymph % (Auto) 0.9 L (20.0-40.0) % Garvin % (Auto) 0.9 (0.0-10.0) % Eos % (Auto) 0.0 (0.0-4.0) % Baso % (Auto) 0.2 (0.0-2.0) % Neut # (Auto) 26.3 H (1.8-7.0) K/uL Lymph # (Auto) 0.3 L (1.0-4.3) K/uL Garvin # (Auto) 0.2 (0.0-0.8) K/uL Eos # (Auto) 0.0 (0.0-0.7) K/uL Baso # (Auto) 0.1 (0.0-0.2) K/uL Total Counted Neutrophils % (Manual) Band Neutrophils % Lymphocytes % (Manual) Reactive Lymphs % Monocytes % (Manual) Eosinophils % (Manual) Basophils % (Manual) Metamyelocytes % Myelocytes % Promyelocytes % Blast Cells % Plasma Cell % (Manual) Nucleated RBC % Hypersegmented Polys Smudge Cells Toxic Granulation Dohle Bodies Devorah Rods Platelet Estimate Plt Clumps, EDTA Large Platelets Giant Platelets RBC Morphology Polychromasia Hypochromasia (manual) Poikilocytosis (manual Basophilic Stippling Anisocytosis (manual) Microcytosis (manual) Macrocytosis (manual) Spherocytes Sickle Cells Target Cells Tear Drop Cells Ovalocytes Stomatocytes Helmet Cells [place] Bodies Naina Cells Acanthocytes (Spur) Rouleaux Schistocytes Sodium 135 (132-148) mmol/l Potassium 3.7 (3.6-5.0) MMOL/L Chloride 109 H (98-107) mmol/L BUN 81 H (7-17) mg/dl Creatinine 1.4 H (0.7-1.2) mg/dl Est GFR ( Amer) 46 Est GFR (Non-Af Amer) 38 Random Glucose 114 H (65-105) mg/dL Calcium 6.7 L (8.4-10.2) mg/dL Total Bilirubin 1.3 (0.2-1.3) mg/dl AST 21 (14-36) U/L ALT 20 (9-52) U/L Alkaline Phosphatase 78 (38-126) U/L Total Protein 4.4 L (6.3-8.2) G/DL Albumin 2.4 L (3.5-5.0) g/dL Globulin 2.0 L (2.2-3.9) gm/dL Albumin/Globulin Ratio 1.2 (1.0-2.1) Vancomycin Trough 22.7 H (5.0-10.0) ug/mL 11/10/18 Range/Units 05:46 WBC (4.8-10.8) K/uL RBC (3.80-5.20) Mil/uL Hgb (12.0-16.0) g/dL Hct (34.0-47.0) % MCV (81.0-99.0) fl MCH (27.0-31.0) pg MCHC (33.0-37.0) g/dL RDW (11.5-14.5) % Plt Count 39 L (130-400) K/uL MPV (7.2-11.7) fl Neut % (Auto) (50.0-75.0) % Lymph % (Auto) (20.0-40.0) % [place]vin % (Auto) (0.0-10.0) % Eos % (Auto) (0.0-4.0) % Baso % (Auto) (0.0-2.0) % Neut # (Auto) (1.8-7.0) K/uL Lymph # (Auto) (1.0-4.3) K/uL Garvin # (Auto) (0.0-0.8) K/uL Eos # (Auto) (0.0-0.7) K/uL Baso # (Auto) (0.0-0.2) K/uL Total Counted Cancelled Neutrophils % (Manual) Cancelled Band Neutrophils % Cancelled Lymphocytes % (Manual) Cancelled Reactive Lymphs % Cancelled Monocytes % (Manual) Cancelled Eosinophils % (Manual) Cancelled Basophils % (Manual) Cancelled Metamyelocytes % Cancelled Myelocytes % Cancelled Promyelocytes % Cancelled Blast Cells % Cancelled Plasma Cell % (Manual) Cancelled Nucleated RBC % Cancelled Hypersegmented Polys Cancelled Smudge Cells Cancelled Toxic Granulation Cancelled Dohle Bodies Cancelled Devorah Rods Cancelled Platelet Estimate Cancelled Plt Clumps, EDTA Cancelled Large Platelets Cancelled Giant Platelets Cancelled RBC Morphology Cancelled Polychromasia Cancelled Hypochromasia (manual) Cancelled Poikilocytosis (manual Cancelled Basophilic Stippling Cancelled Anisocytosis (manual) Cancelled Microcytosis (manual) Cancelled Macrocytosis (manual) Cancelled Spherocytes Cancelled Sickle Cells Cancelled Target Cells Cancelled Tear Drop Cells Cancelled Ovalocytes Cancelled Stomatocytes Cancelled Helmet Cells Cancelled [place] Bodies Cancelled Naina Cells Cancelled Acanthocytes (Spur) Cancelled Rouleaux Cancelled Schistocytes Cancelled Sodium (132-148) mmol/l Potassium (3.6-5.0) MMOL/L Chloride (98-107) mmol/L BUN (7-17) mg/dl Creatinine (0.7-1.2) mg/dl Est GFR ( Amer) Est GFR (Non-Af Amer) Random Glucose (65-105) mg/dL Calcium (8.4-10.2) mg/dL Total Bilirubin (0.2-1.3) mg/dl AST (14-36) U/L ALT (9-52) U/L Alkaline Phosphatase (38-126) U/L Total Protein (6.3-8.2) G/DL Albumin (3.5-5.0) g/dL Globulin (2.2-3.9) gm/dL Albumin/Globulin Ratio (1.0-2.1) Vancomycin Trough (5.0-10.0) ug/mL Laboratory Results - last 24 hr 11/10/18 11/11/18 11/11/18 05:46 05:00 05:00 WBC 26.9 H RBC 2.23 L Hgb 6.8 L D Hct 21.9 L MCV 98.1 D MCH 30.5 MCHC 31.1 L RDW 18.1 H Plt Count 39 L 19 L* D MPV 10.0 Neut % (Auto) 98.0 H Lymph % (Auto) 0.9 L Garvin % (Auto) 0.9 Eos % (Auto) 0.0 Baso % (Auto) 0.2 Neut # (Auto) 26.3 H Lymph # (Auto) 0.3 L [place]vin # (Auto) 0.2 Eos # (Auto) 0.0 Baso # (Auto) 0.1 Total Counted Cancelled Neutrophils % (Manual) Cancelled Band Neutrophils % Cancelled Lymphocytes % (Manual) Cancelled Reactive Lymphs % Cancelled Monocytes % (Manual) Cancelled Eosinophils % (Manual) Cancelled Basophils % (Manual) Cancelled Metamyelocytes % Cancelled Myelocytes % Cancelled Promyelocytes % Cancelled Blast Cells % Cancelled Plasma Cell % (Manual) Cancelled Nucleated RBC % Cancelled Hypersegmented Polys Cancelled Smudge Cells Cancelled Toxic Granulation Cancelled Dohle Bodies Cancelled Devorah Rods Cancelled Platelet Estimate Cancelled Plt Clumps, EDTA Cancelled Large Platelets Cancelled Giant Platelets Cancelled RBC Morphology Cancelled Polychromasia Cancelled Hypochromasia (manual) Cancelled Poikilocytosis (manual Cancelled Basophilic Stippling Cancelled Anisocytosis (manual) Cancelled Microcytosis (manual) Cancelled Macrocytosis (manual) Cancelled Spherocytes Cancelled Sickle Cells Cancelled Target Cells Cancelled Tear Drop Cells Cancelled Ovalocytes Cancelled Stomatocytes Cancelled Helmet Cells Cancelled [place] Bodies Cancelled [place] Cells Cancelled Acanthocytes (Spur) Cancelled Rouleaux Cancelled Schistocytes Cancelled Sodium Potassium Chloride BUN Creatinine Est GFR ( Amer) Est GFR (Non-Af Amer) Random Glucose Calcium Total Bilirubin AST ALT Alkaline Phosphatase Total Protein Albumin Globulin Albumin/Globulin Ratio Vancomycin Trough 22.7 H 11/11/18 05:00 WBC RBC Hgb Hct MCV MCH MCHC RDW Plt Count MPV Neut % (Auto) Lymph % (Auto) [place]vin % (Auto) Eos % (Auto) Baso % (Auto) Neut # (Auto) Lymph # (Auto) [place] # (Auto) Eos # (Auto) Baso # (Auto) Total Counted Neutrophils % (Manual) Band Neutrophils % Lymphocytes % (Manual) Reactive Lymphs % Monocytes % (Manual) Eosinophils % (Manual) Basophils % (Manual) Metamyelocytes % Myelocytes % Promyelocytes % Blast Cells % Plasma Cell % (Manual) Nucleated RBC % Hypersegmented Polys Smudge Cells Toxic Granulation Dohle Bodies Devorah Rods Platelet Estimate Plt Clumps, EDTA Large Platelets Giant Platelets RBC Morphology Polychromasia Hypochromasia (manual) Poikilocytosis (manual Basophilic Stippling Anisocytosis (manual) Microcytosis (manual) Macrocytosis (manual) Spherocytes Sickle Cells Target Cells Tear Drop Cells Ovalocytes Stomatocytes Helmet Cells [place] Bodies Naina Cells Acanthocytes (Spur) Rouleaux Schistocytes Sodium 135 Potassium 3.7 Chloride 109 H BUN 81 H Creatinine 1.4 H Est GFR ( Amer) 46 Est GFR (Non-Af Amer) 38 Random Glucose 114 H Calcium 6.7 L Total Bilirubin 1.3 AST 21 ALT 20 Alkaline Phosphatase 78 Total Protein 4.4 L Albumin 2.4 L Globulin 2.0 L Albumin/Globulin Ratio 1.2 Vancomycin Trough Radiology Impressions: Radiology Impressions Chest X-Ray 11/10/18 06:00 IMPRESSION: Support lines and tubes as above. Pulmonary venous congestive changes with bilateral lower lobe alveolar-type infiltrates and bilateral effusions. Review of Systems - Review of Systems Systems not reviewed;Unavailable: Intubated Critical Care Progress Note - Ventilator Checklist Daily Sedation Vacation: Yes Daily Assessment of Readiness to Wean: Yes Daily Spontaneous Breathing Trial: Yes PUD Prophalyxis: Yes DVT Prophylaxis: Yes Oral Care with Chlorhexidine Gluconate {CHG}: Yes - Nutrition Nutrition: Nutrition Category Date Time Status NPO Diet [DIET] Diets 10/03/18 Breakfast Active Assessment/Plan - Assessment and Plan (Free Text) Assessment: ARDS: morning ABg pending, currently FiO2 100%, peep 0 changed to 5, vt 450ml, rr 20, start duonebs -Septic and cardiogenic shock:currently on norepi and dobutamine, start epi at 4 mcg/min, would offer patient's family arterial line/flowtrak and central line as patient is currently using port-a-cath (which is likely to be taken out 2nd fungemia); however currently being used, and platelets low, continue current abx as per ID -Central line placement difficult and very high risk due to low platelets and unknown ptt/INR -thormbocytopenia 2nd sepsis and chemo: transfuse platelet -NG tube on hold 2nd vomitting -BGM q6hrs, ISS aspart -serial lactic q4hrs x6 -dvt ppx scds, hold chemical dvt ppx as plt low -PUD ppx protonix -prognosis very very poor, patient at high risk of dying -cc time 45 minutes Addednum: (13:13) -using court interpreter, Kieran [phone], Patient's mother was informed of patient's condition and explained the importance of central line and the risk of bleeding 2nd high INR, low platelets. -mother refused central line at present moment. -Risks, benefits and alternatives explained including the possibiliy of . Mother verbalized understanding -will continue infusion via current port-a-cath -transfuse platelet, FFP and PRBC to help stability patient's condition. cc time 20 minutes - Date & Time Date: 11/11/18 Time: 08:11
[2018-11-11 08:45] LABS: BANDS 5 % (0-2); LYMPHOCYTE 3 % (20-50); NEUTROPHIL 92 % (42-75); TOTAL CELLS COUNTED 100
[2018-11-11 08:49] LABS: ANISOCYTOSIS SLIGHT; BURR CELLS SLIGHT; LARGE PLATELETS PRESENT; OVALOCYTES SLIGHT; PLATELET ESTIMATE MARKEDLY DECREASED (NORMAL); POIKILOCYTOSIS SLIGHT; TOXIC GRANULATION PRESENT
[2018-11-11] MEDS: EPINEPHRINE IV ONE ×2 (08:59→21:39)
[2018-11-11] MEDS: SODIUM CHLORIDE 0.9% IV ONE ×2 (08:59→21:39)
[2018-11-11] MEDS ORDERED: Hydrocortisone- 100 MG in Sodium Chloride 0.9% 100 ML IV SCH (09:00)
[2018-11-11] MEDS: Cefepime 2 GM in Sodium Chloride 0.9% 100 ML IVPB SCH ×2 (09:17→20:22)
[2018-11-11] MEDS: Sodium Bicarbonate (8.4%) 50 Meq Syringe IVP SCH ×3 (09:20→20:23)
--- NOTE | 2018-11-11 10:05 | RAD ---
Date of service: 11/11/2018 HISTORY: intubated-trach COMPARISON: Yesterday TECHNIQUE: 1 view obtained. FINDINGS: LUNGS: There appears to be the suggestion of some mild increased atelectasis and/or infiltrate in the right lung when compared to prior study. Left lower lobe may be slightly improved in aeration from prior study. Chronic left pleural effusion and atelectasis are noted. Tracheostomy tube, NG tube, and left PICC line are unchanged. There is mild distention of the gastric air bubble. Vasculature may be slightly increased.. PLEURA: See above. CARDIOVASCULAR: No significant aortic atherosclerotic calcification present. Heart is enlarged. OSSEOUS STRUCTURES: No significant abnormalities. VISUALIZED UPPER ABDOMEN: Normal. OTHER FINDINGS: None. IMPRESSION: Mild increase in atelectasis and/or infiltrate/edema in the right lung. Subtle interval improvement in aeration at the left lung base.
[2018-11-11 12:53] LABS: PROTHROMBIN TIME 38.1 Seconds (9.8-13.1)
[2018-11-11 12:55] LABS: PARTIAL THROMBOPLASTIN TIME 52.6 Seconds (25.6-37.1)
[2018-11-11 13:00] LABS: VANCOMYCIN RANDOM 22.9 ug/mL
[2018-11-11 13:08] LABS: INR 3.3
[2018-11-11] MEDS ORDERED: Phytonadione 10 mg/ml Inj (Adult) IV SCH (13:45)
[2018-11-11] MEDS ORDERED: Phytonadione 10 MG in Sodium Chloride 0.9% 50 ML IVPB ONE (14:00)
[2018-11-12] MEDS: Artificial Tears Opht Soln OU SCH (00:05)
[2018-11-12] MEDS: Gentamicin 80mg/50ml NS 80 MG/50 ML BAG IVPB SCH (00:53)
[2018-11-12] MEDS: Sodium Bicarbonate (8.4%) 50 Meq Syringe IVP SCH (01:03)
[2018-11-12] MEDS ORDERED: EPINEPHRINE IV ONE (01:10)
[2018-11-12] MEDS ORDERED: SODIUM CHLORIDE 0.9% IV ONE (01:10)
--- NOTE | 2018-11-12 06:52 | CP.PCM.PRO ---
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 She started crying and hung up the phone/grieving. She was called 2 more times, each time it was answered and the phone was hung up.
[2018-11-12 07:31] VITALS: BP 124/103; PULSE 92; RESP 22; TEMP 95.5; O2SAT 98
--- NOTE | 2018-11-12 08:26 | RAD ---
Date of service: 11/12/2018 PROCEDURE: CHEST RADIOGRAPH, 1 VIEW HISTORY: eval effusion COMPARISON: Yesterday FINDINGS: LUNGS: There is moderate interval increase in lung opacification bilaterally consistent with increased pulmonary edema. Tracheostomy tube and left Port-A-Cath are unchanged. PLEURA: Pleural effusions are appreciated, greater on the left. No pneumothorax. CARDIOVASCULAR: No aortic atherosclerotic calcification present. Normal. OSSEOUS STRUCTURES: No significant abnormalities. VISUALIZED UPPER ABDOMEN: Unchanged. OTHER FINDINGS: None. IMPRESSION: Moderate increase in lung opacification bilaterally suggestive of increased alveolar edema. Report was tagged as a critical red.
--- NOTE | 2018-11-12 21:06 | CP.PCM.PN ---
Subjective - Date & Time of Evaluation Date of Evaluation: 11/10/18 Time of Evaluation: 17:15 - Subjective Subjective: Seen and examined at the bed side.Poor Prognosis. Patient continue to bleed on And off. on Supportive care. D/w the mother who refused Comfort Care. Similar Several Attempts were mad by all patients' providers. Objective - Vital Signs/Intake and Output Vital Signs (last 24 hours): Temp Pulse Resp BP Pulse Ox 95.5 F L 92 H 22 124/103 H 98 11/12/18 06:00 11/12/18 06:00 11/12/18 06:00 11/12/18 06:00 11/12/18 04:00 - Labs Labs: 11/11/18 05:00 11/11/18 05:00 PT 38.1 Seconds (9.8-13.1) H 11/11/18 12:30 INR 3.3 11/11/18 12:30 APTT 52.6 Seconds (25.6-37.1) H 11/11/18 12:30 Assessment and Plan (1) Anasarca Status: Acute (2) Septic shock Status: Resolved (3) Multiple organ dysfunction syndrome Status: Acute (4) Acute respiratory failure with hypoxemia Status: Acute (5) Thrombocytopenia Status: Resolved (6) Ascites, malignant Status: Acute (7) Congestive heart failure (CHF) Status: Acute (8) Stage IV breast cancer in female Status: Acute (9) Severe anemia Status: Resolved (10) DVT of lower extremity, bilateral Status: Chronic
--- NOTE | 2018-11-12 21:07 | CP.PCM.PN ---
Subjective - Date & Time of Evaluation Date of Evaluation: 11/11/18 Time of Evaluation: 07:15 - Subjective Subjective: Seen and examined at the bed side. Unresponsive, and poor prognosis. Continue to be on pressers. Poor prognosis. Objective - Vital Signs/Intake and Output Vital Signs (last 24 hours): Temp Pulse Resp BP Pulse Ox 95.5 F L 92 H 22 124/103 H 98 11/12/18 06:00 11/12/18 06:00 11/12/18 06:00 11/12/18 06:00 11/12/18 04:00 - Labs Labs: 11/11/18 05:00 11/11/18 05:00 PT 38.1 Seconds (9.8-13.1) H 11/11/18 12:30 INR 3.3 11/11/18 12:30 APTT 52.6 Seconds (25.6-37.1) H 11/11/18 12:30 Assessment and Plan (1) Anasarca Status: Acute (2) Septic shock Status: Resolved (3) Multiple organ dysfunction syndrome Status: Acute (4) Acute respiratory failure with hypoxemia Status: Acute (5) Thrombocytopenia Status: Resolved (6) Ascites, malignant Status: Acute (7) Congestive heart failure (CHF) Status: Acute (8) Stage IV breast cancer in female Status: Acute (9) Severe anemia Status: Resolved (10) DVT of lower extremity, bilateral Status: Chronic - Assessment and Plan (Free Text) Plan: Continue current Care D/w the call person.
--- NOTE | 2018-11-12 21:10 | CP.PCM.DIS ---
Provider - Provider Date of Admission: 09/05/18 12:49 Attending physician: Kristen Norris MD Consults: 09/03/18 21:07 Hematology Oncology Consult Stat Comment: Consulting Provider: Kishore Ward Consulting Physician: Kishore Ward Reason for Consult: breast cancer, anemia 09/04/18 08:00 Nursing Referral for Palliative Care Routine Comment: Consulting Provider: Physician Instructions: Reason For Exam: triggered in assessment Nursing Referral for Wound Care Routine Comment: Physician Instructions: Reason For Exam: pls evaluate Wound Care [Nursing Referral for Wound Care] Routine Comment: Physician Instructions: Reason For Exam: pls evaluate for tx, rt breast, lower ext, sacral 09/07/18 19:56 Wound Care [Nursing Referral for Wound Care] Routine Comment: Physician Instructions: Reason For Exam: sacral redness and skin opening 09/08/18 16:16 Infectious Disease Consult Routine Comment: Consulting Provider: Arun Dexter Consulting Physician: Arun Dexter Reason for Consult: Sepsis, Pneumonia 09/08/18 22:21 Nephrology Consult Routine Comment: Consulting Provider: Divya Wagoner Consulting Physician: Divya Wagoner Reason for Consult: elevated BUN and Creat 09/10/18 08:00 Pastoral Care Referral Routine Comment: Physician Instructions: Reason For Exam: admission-sick 09/10/18 09:00 Case Management Referral Routine Comment: Physician Instructions: Reason For Exam: admission Reason for Referral: Instrument Lens Inspector Eval 09/26/18 13:04 Surgery [General Surgery Consult] Routine Comment: Consulting Provider: Afshin Hernandez Consulting Physician: Afhsin Hernandez Reason for Consult: Acute respiratory failure, Tracheostomy placement 10/04/18 09:43 Palliative Care Consult Routine Comment: Consulting Provider: Jeanne Olvera Physician Instructions: Reason For Exam: metastatic ca breast,rspiratory failure 10/08/18 07:21 Wound Care [Nursing Referral for Wound Care] Routine Comment: Physician Instructions: Reason For Exam: left calf fluid fill blister 10/08/18 07:44 General Surgery Consult Routine Comment: Consulting Provider: Afshin Hernandez Consulting Physician: Afshin Hernandez Reason for Consult: Central line placement 10/10/18 13:47 Gastroenterology Consult Routine Comment: PEG tube placement Consulting Provider: Jeremias Monk Consulting Physician: Jeremias Monk Reason for Consult: PEG tube placement 10/14/18 19:46 Cardiology Consult Routine Comment: CARDIAC CLEARANCE FOR PEG INSERTION Consulting Provider: Deshawn Tucker Consulting Physician: Deshawn Tucker Reason for Consult: CARDIAC CLEARANCE FOR PEG INSERTION Time Spent in preparation of Discharge (in minutes): 30 Diagnosis - Discharge Diagnosis (1) Anasarca Status: Acute (2) Septic shock Status: Resolved (3) Multiple organ dysfunction syndrome Status: Acute (4) Acute respiratory failure with hypoxemia Status: Acute Priority: High (5) Thrombocytopenia Status: Resolved (6) Ascites, malignant Status: Acute Priority: High (7) Congestive heart failure (CHF) Status: Acute Priority: High (8) Stage IV breast cancer in female Status: Acute Priority: High (9) Severe anemia Status: Resolved Priority: High (10) DVT of lower extremity, bilateral Status: Chronic Priority: Medium (11) Tracheostomy dependence Status: Acute Hospital Course - Lab Results Lab Results: Micro Results 11/08/18 12:10 Blood-Thru Central Line Blood Culture - Preliminary NO GROWTH AFTER 4 DAYS 10/21/18 08:00 Urine,Catheterized Urine Culture - Final Alida Krusei 11/02/18 04:18 Blood-Venous Blood Culture - Final NO GROWTH AFTER 5 DAYS 11/02/18 04:18 Blood-Venous Gram Stain - Final TEST NOT PERFORMED 11/01/18 04:58 Blood-Venous Blood Culture - Final NO GROWTH AFTER 5 DAYS 11/01/18 04:58 Blood-Venous Gram Stain - Final TEST NOT PERFORMED 11/02/18 04:18 Blood-Thru Central Line S.aureus & Coag-Neg Staph PNA FISH - Final 11/02/18 04:18 Blood-Thru Central Line Blood Culture - Final Coagulase Neg Staphylococcus 11/02/18 04:18 Blood-Thru Central Line Gram Stain - Final 10/31/18 09:02 Trachasp Gram Stain - Final 10/31/18 09:02 Trachasp Sputum Culture - Final Yeast Species 10/29/18 14:30 Blood-Venous Blood Culture - Final NO GROWTH AFTER 5 DAYS 10/29/18 14:30 Blood-Venous Gram Stain - Final TEST NOT PERFORMED 10/29/18 14:40 Blood-Venous Blood Culture - Final NO GROWTH AFTER 5 DAYS 10/29/18 14:40 Blood-Venous Gram Stain - Final TEST NOT PERFORMED 10/31/18 07:00 Blood-Thru Central Line S.aureus & Coag-Neg Staph PNA FISH - Final 10/31/18 07:00 Blood-Thru Central Line Blood Culture - Final Coagulase Neg Staphylococcus 10/31/18 07:00 Blood-Thru Central Line Gram Stain - Final 10/27/18 14:00 Blood-Thru Central Line Blood Culture - Final NO GROWTH AFTER 5 DAYS 10/27/18 14:00 Blood-Thru Central Line Gram Stain - Final TEST NOT PERFORMED 10/26/18 18:20 Blood-Thru Central Line Blood Culture - Final NO GROWTH AFTER 5 DAYS 10/18/18 11:55 Blood-Thru Central Line Blood Culture - Final NO GROWTH AFTER 5 DAYS 10/18/18 11:55 Blood-Thru Central Line Gram Stain - Final TEST NOT PERFORMED 10/05/18 06:15 Blood Blood Culture - Final NO GROWTH AFTER 5 DAYS 10/05/18 06:15 Blood Gram Stain - Final TEST NOT PERFORMED 10/05/18 06:30 Blood Blood Culture - Final NO GROWTH AFTER 5 DAYS 10/05/18 06:30 Blood Gram Stain - Final TEST NOT PERFORMED 10/05/18 07:10 Urine,[place] Urine Culture - Final Yeast Species 09/25/18 12:10 Blood-Thru Central Line Blood Culture - Final NO GROWTH AFTER 5 DAYS 09/25/18 12:10 Blood-Thru Central Line Gram Stain - Final TEST NOT PERFORMED 09/20/18 14:00 Blood-Thru Central Line Blood Culture - Final NO GROWTH AFTER 5 DAYS 09/20/18 17:53 Trachasp Gram Stain - Final 09/20/18 17:53 Trachasp Sputum Culture - Final Yeast Species 09/20/18 17:53 Urine,[place]ana Urine Culture - Final No Growth (<1,000 CFU/ML) 09/15/18 15:35 Blood-Thru Central Line Blood Culture - Final NO GROWTH AFTER 5 DAYS 09/15/18 15:35 Blood-Thru Central Line Gram Stain - Final TEST NOT PERFORMED 09/15/18 15:25 Blood-Thru Central Line Blood Culture - Final NO GROWTH AFTER 5 DAYS 09/15/18 15:25 Blood-Thru Central Line Gram Stain - Final TEST NOT PERFORMED 09/08/18 11:49 Blood-Venous Blood Culture - Final NO GROWTH AFTER 5 DAYS 09/08/18 11:49 Blood-Venous Gram Stain - Final TEST NOT PERFORMED 09/08/18 11:49 Blood-Venous Blood Culture - Final NO GROWTH AFTER 5 DAYS 09/08/18 11:49 Blood-Venous Gram Stain - Final TEST NOT PERFORMED 09/07/18 Unknown Blood-Thru Central Line Blood Culture - Final NO GROWTH AFTER 5 DAYS 09/07/18 Unknown Blood-Thru Central Line Gram Stain - Final TEST NOT PERFORMED 09/07/18 Unknown Blood-Thru Central Line Blood Culture - Final NO GROWTH AFTER 5 DAYS 09/07/18 Unknown Blood-Thru Central Line Gram Stain - Final TEST NOT PERFORMED 09/07/18 09:07 Trachasp Gram Stain - Final 09/07/18 09:07 Trachasp Sputum Culture - Final Yeast Species 09/04/18 11:25 Naris MRSA Culture (Admit) - Final MRSA NOT DETECTED Most Recent Lab Values WBC 26.9 K/uL (4.8-10.8) H 11/11/18 05:00 RBC 2.23 Mil/uL (3.80-5.20) L 11/11/18 05:00 Hgb 6.8 g/dL (12.0-16.0) L D 11/11/18 05:00 Hct 21.9 % (34.0-47.0) L 11/11/18 05:00 MCV 98.1 fl (81.0-99.0) D 11/11/18 05:00 MCH 30.5 pg (27.0-31.0) 11/11/18 05:00 MCHC 31.1 g/dL (33.0-37.0) L 11/11/18 05:00 RDW 18.1 % (11.5-14.5) H 11/11/18 05:00 Plt Count 19 K/uL (130-400) L* D 11/11/18 05:00 MPV 10.0 fl (7.2-11.7) 11/11/18 05:00 Neut % (Auto) 98.0 % (50.0-75.0) H 11/11/18 05:00 Lymph % (Auto) 0.9 % (20.0-40.0) L 11/11/18 05:00 Gibson % (Auto) 0.9 % (0.0-10.0) 11/11/18 05:00 Eos % (Auto) 0.0 % (0.0-4.0) 11/11/18 05:00 Baso % (Auto) 0.2 % (0.0-2.0) 11/11/18 05:00 Neut # (Auto) 26.3 K/uL (1.8-7.0) H 11/11/18 05:00 Lymph # (Auto) 0.3 K/uL (1.0-4.3) L 11/11/18 05:00 Gibson # (Auto) 0.2 K/uL (0.0-0.8) 11/11/18 05:00 Eos # (Auto) 0.0 K/uL (0.0-0.7) 11/11/18 05:00 Baso # (Auto) 0.1 K/uL (0.0-0.2) 11/11/18 05:00 Total Counted Cancelled 09/04/18 11:25 Neutrophils % (Manual) 92 % (42-75) H 11/11/18 05:00 Band Neutrophils % 5 % (0-2) H 11/11/18 05:00 Lymphocytes % (Manual) 3 % (20-50) L 11/11/18 05:00 Reactive Lymphs % Cancelled 09/04/18 11:25 Monocytes % (Manual) TEST NOT PERFORMED 11/11/18 05:00 Eosinophils % (Manual) Cancelled 09/04/18 11:25 Basophils % (Manual) 1 % (0-2) 10/15/18 04:25 Metamyelocytes % 1 % (0-0) H 09/07/18 04:35 Myelocytes % 1 % (0-0) H 09/07/18 04:35 Promyelocytes % Cancelled 09/04/18 11:25 Blast Cells % Cancelled 09/04/18 11:25 Plasma Cell % (Manual) Cancelled 09/04/18 11:25 Nucleated RBC % Cancelled 09/04/18 11:25 Hypersegmented Polys Present 09/08/18 04:25 Smudge Cells Cancelled 09/04/18 11:25 Toxic Granulation Present 11/11/18 05:00 Dohle Bodies Cancelled 09/04/18 11:25 Devorah Rods Cancelled 09/04/18 11:25 Platelet Estimate Markedly decreased (NORMAL) L 11/11/18 05:00 Plt Clumps, EDTA Cancelled 09/04/18 11:25 Large Platelets Present 11/11/18 05:00 Giant Platelets Cancelled 09/04/18 11:25 RBC Morphology Cancelled 09/04/18 11:25 Polychromasia Slight 09/15/18 04:50 Hypochromasia (manual) Slight 11/09/18 05:45 Poikilocytosis (manual Slight 11/11/18 05:00 Basophilic Stippling Cancelled 09/04/18 11:25 Anisocytosis (manual) Slight 11/11/18 05:00 Microcytosis (manual) Slight 10/21/18 04:17 Macrocytosis (manual) Slight 11/09/18 05:45 Spherocytes Cancelled 09/04/18 11:25 Sickle Cells Cancelled 09/04/18 11:25 Target Cells Cancelled 09/04/18 11:25 Tear Drop Cells Slight 10/30/18 05:19 Ovalocytes Slight 11/11/18 05:00 Stomatocytes Cancelled 09/04/18 11:25 Helmet Cells Cancelled 09/04/18 11:25 Gaona-Lapel Bodies Cancelled 09/04/18 11:25 Naina Cells Slight 11/11/18 05:00 Acanthocytes (Spur) Cancelled 09/04/18 11:25 Rouleaux Slight 09/15/18 04:50 Schistocytes Cancelled 09/04/18 11:25 PT 38.1 Seconds (9.8-13.1) H 11/11/18 12:30 INR 3.3 11/11/18 12:30 APTT 52.6 Seconds (25.6-37.1) H 11/11/18 12:30 Fibrinogen 110 mg/dl (200-400) L 11/11/18 12:30 pCO2 27 mm/Hg (35-45) L 11/10/18 04:49 pO2 62 mm/Hg (80-100) L 11/10/18 04:49 HCO3 14.2 mmol/L (21-28) L 11/10/18 04:49 ABG pH 7.26 (7.35-7.45) L 11/10/18 04:49 ABG Total CO2 12.9 mmol/L (22-28) L 11/10/18 04:49 ABG O2 Saturation 94.8 % (95-98) L 11/10/18 04:49 ABG O2 Content 12.8 ML/dL (15-23) L 11/10/18 04:49 ABG Base Excess -13.6 mmol/L (-2.0-3.0) L 11/10/18 04:49 ABG Hemoglobin 10.0 g/dL (11.7-17.4) L 11/10/18 04:49 ABG Carboxyhemoglobin 2.7 % (0.5-1.5) H 11/10/18 04:49 POC ABG HHb (Measured) 5.0 % (0.0-5.0) 11/10/18 04:49 ABG Methemoglobin 1.9 % (0.0-3.0) 11/10/18 04:49 ABG O2 Capacity 13.5 mL/dL (16-24) L 11/10/18 04:49 Frederic Test Yes 11/10/18 04:49 ABG Potassium 3.3 mmol/L (3.6-5.2) L 10/27/18 13:13 VBG pH 7.25 (7.32-7.43) L 11/09/18 16:30 VBG pCO2 31 mmHg (40-60) L 11/09/18 16:30 VBG HCO3 14.7 mmol/L 11/09/18 16:30 VBG Total CO2 14.6 mmol/L (22-28) L 11/09/18 16:30 VBG O2 Sat (Calc) 87.1 % (40-65) H 11/09/18 16:30 VBG Base Excess -12.4 mmol/L (0.0-2.0) L 11/09/18 16:30 VBG Potassium 3.8 mmol/L (3.6-5.2) 11/09/18 16:30 A-a O2 Difference 154.0 mm/Hg 11/10/18 04:49 Hgb O2 Saturation 90.5 % (95.0-98.0) L 11/10/18 04:49 Sodium 130.0 mmol/L (132-148) L 11/09/18 16:30 Chloride 105.0 mmol/L (98-107) 11/09/18 16:30 Glucose 109 mg/dL (65-105) H 11/09/18 16:30 Lactate 1.3 mmol/L (0.7-2.1) 11/09/18 16:30 Vent Mode A/c 11/10/18 04:49 Mechanical Rate 12 11/10/18 04:49 FiO2 35.0 % 11/10/18 04:49 Tidal Volume 450 11/10/18 04:49 PEEP 5 11/10/18 04:49 Pressure Support 15 10/03/18 04:01 Crit Value Called To Madisyn coffman 11/02/18 07:00 Crit Value Called By 15 11/02/18 07:00 Crit Value Read Back Y 11/02/18 07:00 Blood Gas Notified Time 825 11/02/18 07:00 Sodium 135 mmol/l (132-148) 11/11/18 05:00 Potassium 3.7 MMOL/L (3.6-5.0) 11/11/18 05:00 Chloride 109 mmol/L (98-107) H 11/11/18 05:00 Carbon Dioxide 11 mmol/L (22-30) L* 11/11/18 05:00 Anion Gap 19 (10-20) 11/11/18 05:00 BUN 81 mg/dl (7-17) H 11/11/18 05:00 Creatinine 1.4 mg/dl (0.7-1.2) H 11/11/18 05:00 Est GFR ( Amer) 46 11/11/18 05:00 Est GFR (Non-Af Amer) 38 11/11/18 05:00 POC Glucose (mg/dL) 158 mg/dL (65-110) H 11/03/18 21:44 Random Glucose 114 mg/dL (65-105) H 11/11/18 05:00 Lactic Acid 5.5 mmol/L (0.7-2.1) H* 11/11/18 23:34 Uric Acid 5.1 mg/Dl (2.2-7.5) 09/13/18 04:35 Calcium 6.7 mg/dL (8.4-10.2) L 11/11/18 05:00 Phosphorus 6.6 mg/dl (2.5-4.5) H 11/11/18 12:30 Magnesium 1.9 MG/DL (1.6-2.3) 11/06/18 05:31 Total Bilirubin 1.3 mg/dl (0.2-1.3) 11/11/18 05:00 AST 21 U/L (14-36) 11/11/18 05:00 ALT 20 U/L (9-52) 11/11/18 05:00 Alkaline Phosphatase 78 U/L (38-126) 11/11/18 05:00 Ammonia 14 umol/L (9-33) 09/30/18 01:00 Total Creatine Kinase < 20 U/L (30-135) L 11/09/18 11:00 Troponin I 0.0450 ng/mL (0.00-0.120) 09/04/18 11:25 NT-Pro-B Natriuret Pep 36242 pg/ml (0-900) H 09/04/18 11:25 Total Protein 4.4 G/DL (6.3-8.2) L 11/11/18 05:00 Albumin 2.4 g/dL (3.5-5.0) L 11/11/18 05:00 Globulin 2.0 gm/dL (2.2-3.9) L 11/11/18 05:00 Albumin/Globulin Ratio 1.2 (1.0-2.1) 11/11/18 05:00 Procalcitonin 2.33 NG/ML (0.19-0.49) H 11/09/18 17:44 Arterial Blood Potassium 3.3 mmol/L (3.6-5.2) L 10/27/18 13:13 Venous Blood Potassium 3.8 mmol/L (3.6-5.2) 11/09/18 16:30 Urine Color Yellow (YELLOW) 10/21/18 08:00 Urine Clarity Slighty-cloudy (Clear) 10/21/18 08:00 Urine pH 6.0 (5.0-8.0) 10/21/18 08:00 Ur Specific [place] 1.017 (1.003-1.030) 10/21/18 08:00 Urine Protein 30 mg/dL (NEGATIVE) 10/21/18 08:00 Urine Glucose (UA) 50 mg/dL (NEGATIVE) 10/21/18 08:00 Urine Ketones Negative mg/dL (NEGATIVE) 10/21/18 08:00 Urine Blood Small (NEGATIVE) 10/21/18 08:00 Urine Nitrate Negative (NEGATIVE) 10/21/18 08:00 Urine Bilirubin Negative (NEGATIVE) 10/21/18 08:00 Urine Urobilinogen 0.2-1.0 mg/dL (0.2-1.0) 10/21/18 08:00 Ur Leukocyte Esterase Trace Vikas/uL (Negative) H 10/21/18 08:00 Urine RBC (Auto) 8 /hpf (0-3) H 10/21/18 08:00 Urine Microscopic WBC 10 /hpf (0-5) H 10/21/18 08:00 Ur Squamous Epith Cells 3 /hpf (0-5) 10/21/18 08:00 Uric Acid Crystals Few /hpf (<OCC) H 09/03/18 21:13 Amorphous Sediment Occ /ul (<OCC) H 09/20/18 17:48 Urine Bacteria Rare (<OCC) 10/21/18 08:00 Urine Yeast (Budding) Few /hpf (NEGATIVE) H 10/21/18 08:00 Stool Occult Blood Positive (NEGATIVE) H 11/11/18 12:40 Vancomycin Trough 22.7 ug/mL (5.0-10.0) H 11/11/18 05:00 Random Vancomycin 22.9 ug/mL 11/11/18 12:30 C. difficile Tox B Gene Not detected (Not Detected) 09/18/18 12:49 C. difficile Ag & Toxin Negative (NEGATIVE) 10/17/18 07:58 Blood Type A POSITIVE 11/09/18 07:45 Antibody Screen Negative 11/09/18 07:45 Crossmatch See Detail 11/09/18 07:45 BBK History Checked Patient has bt 11/09/18 07:45 Discharge Exam - Head Exam Head Exam: ATRAUMATIC Discharge Plan - Follow Up Plan Condition: STABLE Disposition: WITH WITHOUT AUTOPSY
== END 2018-11-12 10:45 | DRG 878 ==
LOC: H.ER 17:46 → H.ERHOLD 21:06 → H.MEDSURG1 23:05 → H.ICU/CCU 09-04 10:16 → OBSVTOIN 09-05 12:49 → H.ICU/CCU 10-03 11:00
PROVIDERS: ADMIT Internal Medicine; ATTEND Internal Medicine
PROC: 5A1955Z Respiratory Ventilation, Greater than 96 Consecutive Hours (ICD-10-PCS; 2018-09-04)
PROC: 0BH17EZ Insertion of Endotracheal Airway into Trachea, Via Natural or Artificial Opening (ICD-10-PCS; 2018-09-04)
PROC: 30233N1 Transfusion of Nonautologous Red Blood Cells into Peripheral Vein, Percutaneous Approach (ICD-10-PCS; 2018-09-04)
PROC: 6A551Z2 Pheresis of Platelets, Multiple (ICD-10-PCS; 2018-09-08)
PROC: 3E03329 Introduction of Other Anti-infective into Peripheral Vein, Percutaneous Approach (ICD-10-PCS; 2018-09-21)
PROC: 06HY33Z Insertion of Infusion Device into Lower Vein, Percutaneous Approach (ICD-10-PCS; 2018-09-21)
PROC: 0W9G3ZZ Drainage of Peritoneal Cavity, Percutaneous Approach (ICD-10-PCS; 2018-09-27)
PROC: 0B113F4 Bypass Trachea to Cutaneous with Tracheostomy Device, Percutaneous Approach (ICD-10-PCS; principal; 2018-10-03 09:00)
PROC: 0W9B30Z Drainage of Left Pleural Cavity with Drainage Device, Percutaneous Approach (ICD-10-PCS; 2018-10-19)
PROC: 0W9G3ZZ Drainage of Peritoneal Cavity, Percutaneous Approach (ICD-10-PCS; 2018-10-19)
PROC: 30233K1 Transfusion of Nonautologous Frozen Plasma into Peripheral Vein, Percutaneous Approach (ICD-10-PCS; 2018-11-11)
DX: A41.9 Sepsis, unspecified organism (principal); J96.01 Acute respiratory failure with hypoxia; I26.99 Other pulmonary embolism without acute cor pulmonale; I82.409 Acute embolism and thrombosis of unspecified deep veins of unspecified lower extremity; D65 Disseminated intravascular coagulation [defibrination syndrome]; J18.1 Lobar pneumonia, unspecified organism; N17.0 Acute kidney failure with tubular necrosis; R65.21 Severe sepsis with septic shock; I50.21 Acute systolic (congestive) heart failure; L89.152 Pressure ulcer of sacral region, stage 2; Z99.11 Dependence on respirator [ventilator] status; E88.3 Tumor lysis syndrome; C79.2 Secondary malignant neoplasm of skin; J91.0 Malignant pleural effusion; R18.0 Malignant ascites; C78.6 Secondary malignant neoplasm of retroperitoneum and peritoneum; C79.51 Secondary malignant neoplasm of bone; D61.818 Other pancytopenia; E87.0 Hyperosmolality and hypernatremia; E87.1 Hypo-osmolality and hyponatremia; E87.6 Hypokalemia; I42.9 Cardiomyopathy, unspecified; J98.11 Atelectasis; N39.0 Urinary tract infection, site not specified; R57.0 Cardiogenic shock; D64.81 Anemia due to antineoplastic chemotherapy; C50.911 Malignant neoplasm of unspecified site of right female breast; D63.0 Anemia in neoplastic disease; E86.1 Hypovolemia; G93.41 Metabolic encephalopathy; F41.9 Anxiety disorder, unspecified; Z66 Do not resuscitate; Z92.21 Personal history of antineoplastic chemotherapy; Z74.01 Bed confinement status; Z79.01 Long term (current) use of anticoagulants; Z86.711 Personal history of pulmonary embolism; Z87.891 Personal history of nicotine dependence